=== PATIENT | male | born 1965 ===

== ENCOUNTER 2019-08-13 09:44 | Outpatient (CLI) | payer MEDICAID, SELFPAY ==
[2019-08-13 11:14] LABS: ALT 41 U/L (16-63); AST 22 U/L (15-37); Alkaline Phosphatase 82 U/L (46-116); Anion Gap 7.9 mmol/L (3-11); BUN 9 mg/dL (7-18); Bilirubin, Total 0.3 mg/dL (0.2-1.0); CO2 30.1 mmol/L (21.0-32.0); CREATININE 0.87 mg/dL (0.70-1.30); Calcium 8.4 mg/dL (8.5-10.1); Calculated LDL 70 mg/dL; Chloride 99 mmol/L (98-107); Cholesterol 129 mg/dL (50-200); Glucose 227 mg/dL (70-100); HDL Cholesterol 24 mg/dL (40-60); Potassium 4.9 mmol/L (3.5-5.1); Sodium 137 mmol/L (136-145); Total Protein 6.9 g/dL (6.4-8.2); Triglyceride 176 mg/dL (30-150)
[2019-08-13 11:26] LABS: Hemoglobin A1C 7.1 % (4.5-6.2)
== END 2019-08-13 10:04 ==
PROVIDERS: PCP Family Medicine; Visit Provider Family Medicine
DX: E78.5 Hyperlipidemia, unspecified (principal); I10 Essential (primary) hypertension; E11.9 Type 2 diabetes mellitus without complications
CPT/HCPCS: 36415; 80053; 80061; 83036

== ENCOUNTER 2020-10-03 18:32 | Emergency (ER) | payer MEDICAID, SELFPAY ==
[2020-10-03 18:33] VITALS: BP 126/62; PULSE 86; RESP 19; TEMP 35.9; O2SAT 98
[2020-10-03 18:41] VITALS: RESP 19
--- NOTE | 2020-10-03 19:00 | RT.EKG_ITS ---
APPROVED REPORT Exam: Resting ECG Patient Location: E HR:80 bpm ECG Measurements Heart Rate 80 AXIS DC 182 P 34 QRSd 106 QRS 39 QT 384 T 60 QTc 444 Conclusion Sinus rhythm. Normal P axis, no st elevation
--- NOTE | 2020-10-03 19:00 | DI.RAD_ITS ---
EXAM: XR CHEST 2V PA LATERAL CLINICAL HISTORY: Chest pain. TECHNIQUE: 2D digital imaging was performed. COMPARISON: CR ABD FLAT UPRIGHT PA CHEST from 08/20/2014 FINDINGS: Heart size normal. The mediastinum is not widened. There are no infiltrates nor pleural effusions. Subtle density posteriorly over the lung base on lateral view noted but there is no infiltrate evide nt on the frontal view. There are no pleural effusions. No pneumothorax. IMPRESSION: No acute pulmonary findings. DATA REPOSITORY: RADIATION DOSE DELIVERED:
[2020-10-03 19:15] LABS: Abs Immature Grans 0.05 10^3/uL (0.0-0.06); Absolute Basophil Count 0.02 10^3/uL (0.0-0.2); Absolute Eosinophil Count 0.28 10^3/uL (0.0-0.7); Absolute Lymphocyte Count 1.88 10^3/uL (1.2-3.4); Absolute Monocyte Count 0.61 10^3/uL (0.1-0.8); Absolute Neutrophil Count 7.49 10^3/uL (1.2-6.7); Basophils % 0.2; Eosinophils % 2.7; HCT 37.5 % (40.0-50.0); HGB 12.5 g/dL (13.5-17.5); Immature Grans % 0.5; Lymphocytes % 18.2; MCH 29.6 pg (27.0-33.0); MCHC 33.3 % (32.0-36.0); MCV 88.9 fL (80-95); MPV 8.1 fL (8.0-11.0); Monocytes % 5.9; Neutrophils % 72.5; Nucleated RBC 0 %; Platelet Count 228 10^3/uL (130-400); RBC 4.22 10^6/uL (4.36-5.78); RDW-SD 38.8 fL; WBC 10.33 10^3/uL (4.4-10.8)
--- NOTE | 2020-10-03 19:18 | W.ED.GENAD ---
Discharge Plan Disposition Patient Disposition: HOME Condition: Stable Discharge Details Clinical Impression: Anxiety, Chest pain Primary Care Provider: Brandon Foster ED Provider: Fang Eubanks Home Meds and New Rx's Prescriptions: Continued atenolol 50 MG tablet 1 tab PO DAILY Qty: 90 RF: 3 pantoprazole 40 MG tablet,delayed release (DR/EC) 1 tab PO DAILY Qty: 90 RF: 3 loratadine [Claritin Liqui-Gel] 10 MG capsule 1 cap PO DAILY Qty: 90 RF: 3 simvastatin 80 MG tablet 80 mg PO DAILY Qty: 90 RF: 3 acetaminophen [Tylenol] 325 MG tablet 1 tab PO PRN PRNRF: 0 albuterol sulfate [ProAir HFA] 200 PUFF HFA aerosol inhaler 1 inhaler Inhalation PRN PRNRF: 0 metformin 500 MG tablet 500 mg PO BID RF: 0 benztropine 0.5 MG tablet 0.5 mg PO BID RF: 0 aspirin,buffd-calcium carb-mag 325 MG tablet 325 mg PO DAILY RF: 0 fluoxetine 40 mg capsule 40 mg PO DAILY RF: 0 gabapentin 300 mg capsule 300 mg PO TID RF: 0 lorazepam 1 mg tablet 1 mg PO TID RF: 0 Risperdal Consta 25 mg/2 mL suspension,extended rel recon 25 mg IM USEASDIRECTD RF: 0 lactulose 10 gram/15 mL solution PO DIRECTED PRNRF: 0 Discharge Instructions Instructions: Chest Pain (ED), Anxiety (ED) Additional Instructions: Follow up with primary care provider in 3-5 days. Return to ED sooner if any worsening or concerns. Increase oral fluids. Take a aspirin daily. Return to the ED for any worsening chest pain, shortness of breath or any concerns. Referrals: Brandon Foster [Primary Care Provider] - Medical Decision Making 55-year-old male presents to the ER with chief complaint of increased anxiety. Patient reports he has been feeling dizzy for the last few days and has had a dull feeling in the left side of his chest. He also endorses nausea, no vomiting no diarrhea no constipation. He denies any fever. He is morbidly obese, does have a past medical history of type 2 diabetes, hypertension, hyperlipidemia, anxiety, mitral valve replacement, and is a daily smoker. He states that he is on a waiting list to get into a care bed at this time. Work-up ordered including EKG, chest x-ray, CBC, CMP, troponin, urinalysis, and magnesium. Sodium 132, potassium 4.2, chloride 97, glucose 187, urinalysis is within normal limits. First troponin is less than 0.05. Imaging protocol: XR of the chest Views: 2 views. COMPARISON: CR ABD FLAT UPRIGHT PA CHEST 08/20/2014 13:14 FINDINGS: Lungs: Mild density projecting over the inferolateral lung base on the lateral view with no frontal correlate. Slightly rotated lateral view. Pleural space: No pleural effusion. No pneumothorax. Heart/Mediastinum: No cardiomegaly. Bones/joints: No acute fracture. IMPRESSION: Mild basilar density as described above; I favor artifact. Consider follow-up if there is concern for an early lung base pneumonia. Thank you for allowing us to participate in the care of your patient. Dictated and Authenticated by: Annalee Kellogg MD Heart score is 2 at this time. Discussed results with patient. Due to patient's pain in his chest beginning proximately 3 days ago likelihood of a serial troponin being elevated is very unlikely at this time. Patient is more concerned about his anxiety he was given a 500 cc bolus of normal saline due to the low sodium. This improved his dizziness. Patient is requesting to take his nightly meds including 2 mg of Ativan, which is improved. Discussed follow-up. Discussed strict return instructions, verbalized understanding. HPI General Mode of arrival: ambulatory. Date/Time Provider Initiated Documentation: 10/03/20 18:32. Limitations to Documentation: no limitations. Information obtained by: patient. HPI Narrative: 55-year-old male presents to the ER with chief complaint of increased anxiety. Patient reports he has been feeling dizzy for the last few days and has had a dull feeling in the left side of his chest. He also endorses nausea, no vomiting no diarrhea no constipation. He denies any fever. He is morbidly obese, does have a past medical history of type 2 diabetes, hypertension, hyperlipidemia, anxiety, mitral valve replacement, and is a daily smoker. Related Data Home Medications Medication Instructions Recorded Confirmed acetaminophen [Tylenol] 1 tab PO PRN PRN 08/20/14 10/03/20 albuterol sulfate [ProAir HFA] 1 inhaler INHALATION PRN PRN 08/20/14 10/03/20 atenolol 1 tab PO DAILY #90 tab 10/26/14 10/03/20 pantoprazole 1 tab PO DAILY #90 tab 10/26/14 10/03/20 loratadine [Claritin Liqui-Gel] 1 cap PO DAILY #90 tab 12/16/14 10/03/20 simvastatin 80 mg PO DAILY #90 tab 12/21/14 10/03/20 aspirin,buffd-calcium carb-mag 325 mg PO DAILY 11/18/16 10/03/20 benztropine 0.5 mg PO BID 11/18/16 10/03/20 metformin 500 mg PO BID 11/18/16 10/03/20 Risperdal Consta 25 mg IM USEASDIRECTD 10/03/20 10/03/20 fluoxetine 40 mg PO DAILY 10/03/20 10/03/20 gabapentin 300 mg PO TID 10/03/20 10/03/20 lactulose PO DIRECTED PRN 10/03/20 lorazepam 1 mg PO TID 10/03/20 10/03/20 Allergies Allergy/AdvReac Type Severity Reaction Status Date / Time buspirone Allergy Unverified 11/27/16 13:31 paliperidone Allergy Unverified 11/27/16 13:31 paroxetine HCl [From Paxil] Allergy Unverified 11/27/16 13:31 sertraline Allergy Unverified 11/27/16 13:31 aripiprazole [From Abilify] AdvReac Intermediate INVOLUNTARY Unverified 11/27/16 13:31 MUSCLE MOVEMENTS divalproex sodium AdvReac Intermediate INVOLUNTARY Unverified 11/27/16 13:31 [From Depakote] MUSCLE MOVEMENTS mirtazapine AdvReac Intermediate INVOLUNTARY Unverified 11/27/16 13:31 MUSCLE MOVEMENTS risperidone AdvReac Intermediate INVOLUNTARY Unverified 11/27/16 13:31 MUSCLE MOVEMENTS benztropine mesylate AdvReac elevated Unverified 11/27/16 13:31 [From Cogentin] blood sugars enviornmental Allergy Mild Wheezing Uncoded 11/27/16 13:31 General Stated Complaint: Anxiety CARLOS: 3 Review of Systems Narrative: Constitutional: Negative for weight loss, alert and oriented, well groomed, obese body habitus, appears comfortable. HEENT: Denies trauma, headaches, blurry vision, nasal discharge, sore throat, trouble swallowing. Chest: Denies palpitations, irregular rhythm, hypertension. Reports left-sided chest pain. Respiratory: Denies Shortness of breath, cough, hemoptysis. GI: Denies abdominal pain, vomiting, diarrhea, constipation. Positive nausea : Denies dysuria, hematuria, flank pain, rectal bleeding. Neuro: Denies blurry vision, weakness, syncope, headache or facial numbness. Reports dizziness. Hematologic: Denies easy bruising, intolerance to heat or cold, hair loss. [facility] Family History Father No problems noted. Other Heart disease Social History Smoking/Tobacco Use Status: Current every day Tobacco Type: cigarettes Smoking risk assessment performed?: Yes Alcohol Intake: never Drug use: Never Do you feel safe at home: Yes Do you feel safe in your relationship?: Yes Exam Narrative Exam Narrative: Constitutional: Alert and oriented x3. Appears stated age. morbidly obese body habitus. Head: Normocephalic, no trauma. Eyes: Pupils PERRLA, Red reflex noted, EOM's intact. Eyelids symmetrical without lesions, discharge, or swelling. ENT: Bilateral TM's WNL, External ear normal to inspection, no mastoid TTP, swelling, or erythema, Nasal turbinates WNL, no nasal discharge. Normal dentition, Posterior pharynx WNL, no exudate. Chest: RRR, Normal S1, S2, distal pulses intact. Resp: Lungs clear to auscultation bilaterally, no wheezes, rales, or rhonchi. Musculoskeletal: Normal gait, 5/5 strength to all four extremities. Skin: No suspicious rashes or lesions. Capillary refill less than 2 sec. Neurologic: Cranial nerves II-XII intact. Alert and oriented x 3. DTR's intact. Hematologic/Lymphatic: No ecchymosis, no lymphadenopathy. Course Vital Signs Vital signs: Vital Signs Temperature 35.9 C L 10/03/20 18:33 Pulse 86 10/03/20 18:33 Respiratory Rate 19 10/03/20 18:33 Blood Pressure 126/62 10/03/20 18:33 Pulse Oximetry 98 10/03/20 18:33 Temperature 35.9 C L 10/03/20 18:33 Temperature Source Temporal Artery Scan 10/03/20 18:33 Pulse 86 10/03/20 18:33 Respiratory Rate 19 10/03/20 18:41 Respiratory Effort 10/03/20 18:41 Respiratory Depth Normal 10/03/20 18:41 Respiratory Pattern Normal 10/03/20 18:41 Blood Pressure 126/62 10/03/20 18:33 Blood Pressure Position Sitting 10/03/20 18:33 Pulse Oximetry 98 10/03/20 18:33 Oxygen Delivery Method Room Air 10/03/20 18:33 Oxygen Flow Rate 0 10/03/20 18:33 Pain Level 7 10/03/20 18:33 Lab/Test Results Lab/Test Results: Laboratory Tests Range/Units 10/03/20 19:13 WBC (4.4-10.8) 10^3/uL 10.33 RBC (4.36-5.78) 10^6/uL 4.22 L Hgb (13.5-17.5) g/dL 12.5 L Hct (40.0-50.0) % 37.5 L MCV (80-95) fL 88.9 MCH (27.0-33.0) pg 29.6 MCHC (32.0-36.0) % 33.3 RDW (11.8-14.1) % 12.0 Plt Count (130-400) 10^3/uL 228 MPV (8.0-11.0) fL 8.1 Immature Gran % 0.5 Neutrophils % 72.5 Lymphocytes % 18.2 Monocytes % 5.9 Eosinophils % 2.7 Basophils % 0.2 Nucleated RBC % % 0 Absolute Neutrophils (1.2-6.7) 10^3/uL 7.49 H Absolute Lymphocytes (1.2-3.4) 10^3/uL 1.88 Absolute Monocytes (0.1-0.8) 10^3/uL 0.61 Absolute Eosinophils (0.0-0.7) 10^3/uL 0.28 Absolute Basophils (0.0-0.2) 10^3/uL 0.02
[2020-10-03 19:31] LABS: ALT 40 U/L (16-63); AST 23 U/L (15-37); Albumin 3.4 g/dL (3.4-5.0); Alkaline Phosphatase 91 U/L (46-116); Anion Gap 6.2 mmol/L (3-11); BUN 13 mg/dL (7-18); Bilirubin, Total 0.4 mg/dL (0.2-1.0); CO2 28.8 mmol/L (21.0-32.0); CREATININE 1.03 mg/dL (0.70-1.30); Calcium 8.8 mg/dL (8.5-10.1); Chloride 97 mmol/L (98-107); Glucose 187 mg/dL (74-106); Magnesium 1.8 mg/dL (1.8-2.4); Potassium 4.2 mmol/L (3.5-5.1); Sodium 132 mmol/L (136-145); Total Protein 8.2 g/dL (6.4-8.2); Troponin I < 0.05 ng/mL (<0.06)
--- NOTE | 2020-10-03 19:54 | DI.VRAD_ITS ---
PROCEDURE INFORMATION: Exam: XR Chest, 2 Views Exam date and time: 10/03/2020 19:02 Age: 55 years old Clinical indication: Other: Chest pain TECHNIQUE: Imaging protocol: XR of the chest Views: 2 views. COMPARISON: CR ABD FLAT UPRIGHT PA CHEST 08/20/2014 13:14 FINDINGS: Lungs: Mild density projecting over the inferolateral lung base on the lateral view with no frontal correlate. Slightly rotated lateral view. Pleural space: No pleural effusion. No pneumothorax. Heart/Mediastinum: No cardiomegaly. Bones/joints: No acute fracture. IMPRESSION: Mild basilar density as described above; I favor artifact. Consider follow-up if there is concern for an early lung base pneumonia. Dictated and Authenticated by: Annalee Kellogg MD. Ordering:YOLY Headley MD
[2020-10-03] MEDS: Normal Saline 250 ML IV (20:15)
[2020-10-03 20:21] VITALS: BP 141/70; PULSE 90; RESP 19; TEMP 36.3; O2SAT 96
[2020-10-03 20:25] LABS: Bilirubin Negative (Negative); Blood Negative (Negative); Clarity Clear (Clear); Glucose Negative (Negative); Ketones Negative (Negative); Leukocyte Esterase Negative (Negative); Nitrite Negative (Negative); Specific Gravity 1.015 (1.005-1.025); Urobilinogen 0.2 EU/dL (Up TO 0.2); pH 6.5 (5-8)
[2020-10-03 20:50] VITALS: BP 141/70; PULSE 90; RESP 19; TEMP 36.3; O2SAT 96
== END 2020-10-03 20:50 | disposition home or self-care (01) ==
PROVIDERS: Emergency Provider Registered Nurse Emergency; PCP Family Medicine
DX: R42 Dizziness and giddiness (principal); R07.89 Other chest pain; F41.9 Anxiety disorder, unspecified; R11.0 Nausea; I10 Essential (primary) hypertension; E11.9 Type 2 diabetes mellitus without complications
CPT/HCPCS: 80053; 93005; 96360; 99285; 71046; 81003; 83735; 84484; 85025; 93010; 99284

== ENCOUNTER 2020-10-09 00:46 | Emergency (ER) | payer MEDICAID, SELFPAY ==
--- NOTE | 2020-10-09 00:45 | RT.EKG_ITS ---
APPROVED REPORT Exam: Resting ECG Patient Location: E HR:99 bpm ECG Measurements Heart Rate 99 AXIS MI 190 P 53 QRSd 106 QRS 46 QT 370 T 57 QTc 475 Conclusion Sinus rhythm...normal P axis, V-rate 60- 99 Normal [place] There are no significant changes compared to prior EKG performed on 10/03/2020 at 19:09.
[2020-10-09 00:53] VITALS: BP 133/76; PULSE 94; RESP 20; TEMP 36.5; O2SAT 96
--- NOTE | 2020-10-09 00:54 | ED.GENADUL_ITS ---
Discharge Plan Disposition Patient Disposition: HOME Condition: Good Discharge Details Clinical Impression: Anxiety Primary Care Provider: Brandon Foster ED Provider: Dariel Matthews Hecker Meds and New Rx's Prescriptions: Continued atenolol 50 MG tablet 1 tab PO DAILY Qty: 90 RF: 3 loratadine [Claritin Liqui-Gel] 10 MG capsule 1 cap PO DAILY Qty: 90 RF: 3 simvastatin 80 MG tablet 80 mg PO DAILY Qty: 90 RF: 3 acetaminophen [Tylenol] 325 MG tablet 1 tab PO PRN PRNRF: 0 albuterol sulfate [ProAir HFA] 200 PUFF HFA aerosol inhaler 1 inhaler Inhalation PRN PRNRF: 0 esomeprazole magnesium [Nexium] 20 mg Capsule,Delayed Release(Dr/Ec) 20 mg PO DAILY RF: 0 metformin 500 MG tablet 500 mg PO BID RF: 0 benztropine 0.5 MG tablet 0.5 mg PO BID RF: 0 aspirin,buffd-calcium carb-mag 325 MG tablet 325 mg PO DAILY RF: 0 fluoxetine 40 mg capsule 40 mg PO DAILY RF: 0 gabapentin 300 mg capsule 300 mg PO TID RF: 0 lorazepam 1 mg tablet 1 mg PO TID RF: 0 Risperdal Consta 25 mg/2 mL suspension,extended rel recon 25 mg IM USEASDIRECTD RF: 0 lactulose 10 gram/15 mL solution PO DIRECTED PRNRF: 0 Discharge Instructions Instructions: Anxiety (ED) Additional Instructions: You have now had 2 visits to the emergency department within the last week for anxiety. You really need to discuss this with mental health for further management. You should follow-up with primary care for outpatient stress testing just to be sure there is no cardiac issues. Return to ED if you develop actual chest pain, shortness of breath, passout, other concerns. Referrals: [facility] [Provider Group] Brandon Foster [Primary Care Provider] - Medical Decision Making Patient returned with complaint of chest fullness and anxiety. Had called in to help and was told emergency room care bed. Did take his medications today including Ativan. EKG is unchanged from before and is essentially normal. History is more consistent with anxiety and ACS. In fact, he denies having chest pain and repeatedly corrects me with past about pain. Clinically does not fit dissection, PE. Chest x-ray on the normal. He is given aspirin. He refuses nitroglycerin. Laboratory studies sent. IV Ativan given. First troponin negative. CBC and BMP unchanged from before. Plan repeat EKG and troponin and if negative discharge home. HEART score is a 3 based on age and risk factors. Patient has been fine. No more complaints after the IV Ativan. Repeat troponin negative. Will place discharge to follow-up with primary care next week as well as with mental health to help with his anxiety. Return to ED if actual chest pain, shortness of breath, vomiting, other problems. Medical Records Medical records reviewed: Yes I reviewed the patient's medical records. Lab Data Lab results reviewed: Yes I reviewed the patient's lab results. ECG Data Attestation: I personally reviewed and interpreted this ECG (s) as follows: Interpretation: see EKG HPI General Mode of arrival: EMS . Date/Time Provider Initiated Documentation: 10/09/20 00:48 . Limitations to Documentation: no limitations . Information obtained by: patient, RN notes reviewed and old records reviewed . HPI Narrative: Patient presents to the ED with complaint of chest fullness. Patient seen here on the for same. Work-up including chest x-ray, EKG, 2 sets of troponin then was negative. No trauma. Has been. Patient returned complaining of recurrent anxiety and chest fullness. He does not describe it as pain or pressure. He has some nausea and slight headache. He denies fever, cough, shortness of breath, loss of taste or smell, vomiting, abdominal pain. Does have cardiac risk factors. Denies any radiation of the fullness. Did call mental health prior to coming in requesting a care bed. Related Data Home Medications Medication Instructions Recorded Confirmed acetaminophen [Tylenol] 1 tab PO PRN PRN 08/20/14 10/09/20 albuterol sulfate [ProAir HFA] 1 inhaler INHALATION PRN PRN 08/20/14 10/09/20 atenolol 1 tab PO DAILY #90 tab 10/26/14 10/09/20 loratadine [Claritin Liqui-Gel] 1 cap PO DAILY #90 tab 12/16/14 10/09/20 simvastatin 80 mg PO DAILY #90 tab 12/21/14 10/09/20 aspirin,buffd-calcium carb-mag 325 mg PO DAILY 11/18/16 10/09/20 benztropine 0.5 mg PO BID 11/18/16 10/09/20 metformin 500 mg PO BID 11/18/16 10/09/20 Risperdal Consta 25 mg IM USEASDIRECTD 10/03/20 10/09/20 fluoxetine 40 mg PO DAILY 10/03/20 10/09/20 gabapentin 300 mg PO TID 10/03/20 10/09/20 lactulose PO DIRECTED PRN 10/03/20 lorazepam 1 mg PO TID 10/03/20 10/09/20 esomeprazole magnesium [Nexium] 20 mg PO DAILY 10/09/20 10/09/20 Allergies Allergy/AdvReac Type Severity Reaction Status Date / Time buspirone Allergy Unverified 10/09/20 00:57 paliperidone Allergy Unverified 10/09/20 00:57 paroxetine HCl [From Paxil] Allergy Unverified 10/09/20 00:57 sertraline Allergy Unverified 10/09/20 00:57 aripiprazole [From Abilify] AdvReac Intermediate INVOLUNTARY Unverified 10/09/20 00:57 MUSCLE MOVEMENTS divalproex sodium AdvReac Intermediate INVOLUNTARY Unverified 10/09/20 00:57 [From Depakote] MUSCLE MOVEMENTS mirtazapine AdvReac Intermediate INVOLUNTARY Unverified 10/09/20 00:57 MUSCLE MOVEMENTS risperidone AdvReac Intermediate INVOLUNTARY Unverified 10/09/20 00:57 MUSCLE MOVEMENTS benztropine mesylate AdvReac elevated Unverified 10/09/20 00:57 [From Cogentin] blood sugars enviornmental Allergy Mild Wheezing Uncoded 10/09/20 00:57 General CARLOS: 3 Review of Systems Narrative: As documented in HPI otherwise negative as below. Const: no fever, chills, weakness Resp: no cough, SOB, pleuritic pain CV: no diaphoresis, edema, syncope GI: no abdominal pain, vomiting, diarrhea Neuro: no numbness, focal weakness, confusion [facility] Medical History (Updated 10/09/20 @ 05:02 by Dariel Matthews MD) Arrhythmia, atrial (09/07/14) Depression (10/02/14) Diabetes mellitus type 2 in obese (09/09/14) GERD (gastroesophageal reflux disease) (09/07/14) Hypercholesterolemia (11/03/14) Hypothyroidism (acquired) (09/07/14) Schizoaffective disorder (09/07/14) Rebekah Mariscal [facility] 09/2014- [facility] inpatient Family History Father No problems noted. Other Heart disease Social History Smoking/Tobacco Use Status: Current every day Tobacco Type: cigarettes Smoking risk assessment performed?: Yes Alcohol Intake: never Drug use: Never Substance use type: does not use Do you feel safe at home: Yes Do you feel safe in your relationship?: Yes Exam Narrative Exam Narrative: Const: Morbidly obese male in NAD. HEENT: NC/AT. Normal facial exam. Eyes: Normal conjunctiva and sclera. Neck: Supple. Trachea midline. Lungs: Normal respiratory effort. Lungs are clear. Cor: RRR without murmur/gallop. Good radial pulses. GI: Soft. NT/ND. No guarding or rebound. Neuro: A+O x 3. Normal speech, mentation, gait. Cranial nerves II - XII grossly intact. No gross motor or sensory deficit. Ext: No C/C. Some LE edema. No calf tenderness. Skin: Warm and dry without rash.
[2020-10-09 01:00] VITALS: RESP 20
[2020-10-09] MEDS: Aspirin 81 MG CHEW 324 MG CH (01:45)
[2020-10-09 01:48] LABS: Abs Immature Grans 0.05 10^3/uL (0.0-0.06); Absolute Basophil Count 0.02 10^3/uL (0.0-0.2); Absolute Eosinophil Count 0.31 10^3/uL (0.0-0.7); Absolute Lymphocyte Count 1.89 10^3/uL (1.2-3.4); Absolute Monocyte Count 0.68 10^3/uL (0.1-0.8); Basophils % 0.2; Eosinophils % 2.6; HCT 36.6 % (40.0-50.0); HGB 12.2 g/dL (13.5-17.5); Immature Grans % 0.4; Lymphocytes % 15.8; MCH 29.6 pg (27.0-33.0); MCHC 33.3 % (32.0-36.0); MCV 88.8 fL (80-95); MPV 8.5 fL (8.0-11.0); Monocytes % 5.7; Neutrophils % 75.3; Nucleated RBC 0 %; Platelet Count 228 10^3/uL (130-400); RBC 4.12 10^6/uL (4.36-5.78); RDW 12.1 % (11.8-14.1); RDW-SD 39.2 fL; WBC 11.99 10^3/uL (4.4-10.8)
[2020-10-09 01:49] LABS: Absolute Neutrophil Count 9.03 10^3/uL (1.2-6.7)
[2020-10-09 01:57] LABS: Anion Gap 6.7 mmol/L (3-11); BUN 11 mg/dL (7-18); CO2 27.3 mmol/L (21.0-32.0); CREATININE 1.05 mg/dL (0.70-1.30); Calcium 8.9 mg/dL (8.5-10.1); Chloride 98 mmol/L (98-107); Glucose 202 mg/dL (74-106); Potassium 4.2 mmol/L (3.5-5.1); Sodium 132 mmol/L (136-145)
[2020-10-09] MEDS: LORazepam 2 MG/ML VIAL 1 MG IVP (02:02)
[2020-10-09 02:07] LABS: Troponin I < 0.05 ng/mL (<0.06)
[2020-10-09 03:02] VITALS: BP 123/69
[2020-10-09 04:56] LABS: Troponin I < 0.05 ng/mL (<0.06)
[2020-10-09 05:08] VITALS: BP 115/76; PULSE 81; RESP 16; O2SAT 96
== END 2020-10-09 08:03 | disposition home or self-care (01) ==
PROVIDERS: Emergency Provider Emergency Medicine; PCP Family Medicine
DX: R07.89 Other chest pain (principal); F41.8 Other specified anxiety disorders; E11.9 Type 2 diabetes mellitus without complications; Z79.84 Long term (current) use of oral hypoglycemic drugs
CPT/HCPCS: 36415; 80048; 80053; 93005; 96374; 99284; 83735; 84484; 85025; 93010; J2060

== ENCOUNTER 2020-10-12 21:43 | Emergency (ER) | payer MEDICAID, SELFPAY ==
--- NOTE | 2020-10-12 21:30 | RT.EKG_ITS ---
APPROVED REPORT Exam: Resting ECG Patient Location: E HR:88 bpm ECG Measurements Heart Rate 88 AXIS FL 165 P 54 QRSd 113 QRS 44 QT 398 T 66 QTc 481 Conclusion Sinus rhythm...normal P axis, V-rate 60- 99
[2020-10-12 21:44] VITALS: BP 152/68; PULSE 84; RESP 16; TEMP 36.4; O2SAT 99
--- NOTE | 2020-10-12 21:45 | DI.CT_ITS ---
EXAM: CT THORAX CTA CLINICAL HISTORY: chest pain radiating to the back. TECHNIQUE: Imaging Protocol: CT angiography of the chest was performed using pulmonary embolus ely col. Multi planar reconstructions were performed. CONTRAST MATERIAL: Intravenous: Omnipaque 350 Contrast volume:100 ml Oral: None COMPARISON: No exams were available for comparison FINDINGS: CHEST: PULMONARY ARTERIES: There are no intraluminal filling defects to suggest acute pulmonary emboli. LUNGS: There is no evidence of pulmonary infarction. No pleural effusions. MEDIASTINUM: There is no hilar nor mediastinal adenopathy. Visualized thyroid unremarkable. CARDIAC: Heart size is normal. There is no pericardial effusion.Caliber of the thoracic aorta is wit hin normal limits.There is no evidence of shift of the interventricular septum. OSSEOUS: No significant osseous lesions.. IMPRESSION: 1. No evidence of acute pulmonary emboli. No evidence of pulmonary infarction. 2. No pleural effusions 3. RADIATION DOSE DELIVERED: 787.29mGy.cm Total DLP DATA REPOSITORY: All CT scans at this facility are submitted to the National Radiology Data Registry (NRDR) Dose Index Registry (DIR) with the [employer] (ACR). RADIATION OPTIMIZATION: All CT scans at this facility use at least one of these dose optimization te chniques: automated exposure control; mA and/or kV adjustment per patient size (includes targeted exa ms where dose is matched to clinical indication); or iterative reconstruction.
[2020-10-12 21:51] VITALS: RESP 18
--- NOTE | 2020-10-12 21:52 | ED.GENADUL_ITS ---
Discharge Plan Disposition Patient Disposition: HOME Condition: Stable Discharge Details Clinical Impression: Chest pain Primary Care Provider: Brandon Foster ED Provider: Doc Ramos Home Meds and New Rx's Prescriptions: Continued atenolol 50 MG tablet 1 tab PO DAILY Qty: 90 RF: 3 loratadine [Claritin Liqui-Gel] 10 MG capsule 1 cap PO DAILY Qty: 90 RF: 3 simvastatin 80 MG tablet 80 mg PO DAILY Qty: 90 RF: 3 acetaminophen [Tylenol] 325 MG tablet 1 tab PO PRN PRNRF: 0 albuterol sulfate [ProAir HFA] 200 PUFF HFA aerosol inhaler 1 inhaler Inhalation PRN PRNRF: 0 esomeprazole magnesium [Nexium] 20 mg Capsule,Delayed Release(Dr/Ec) 20 mg PO DAILY RF: 0 metformin 500 MG tablet 500 mg PO BID RF: 0 benztropine 0.5 MG tablet 0.5 mg PO BID RF: 0 aspirin,buffd-calcium carb-mag 325 MG tablet 325 mg PO DAILY RF: 0 fluoxetine 40 mg capsule 40 mg PO DAILY RF: 0 gabapentin 300 mg capsule 300 mg PO TID RF: 0 lorazepam 1 mg tablet 1 mg PO TID RF: 0 Risperdal Consta 25 mg/2 mL suspension,extended rel recon 25 mg IM USEASDIRECTD RF: 0 lactulose 10 gram/15 mL solution 2 PO DIRECTED PRNRF: 0 Discharge Instructions Additional Instructions: your blood work and imaging did not show any concerning findings this could be from underlying anxiety follow up with your primary care provider within a week if worsening pain, difficulty breathing or vomit return to the emergency department Medical Decision Making 55 yo male with hx of gerd, hld, hypothyroidism, anxiety, schizoaffective disorder who comes in with cc of a chest fullness sensation in the left upper chest starting 3 hours ago on my exam. He states it feels similar to the prior 2 times he was here the last week or so. He states it moves to the upper back intermittenty. He denies fevers, dyspnea, diaphoresis, n/v. He arrives hd stable with no concerning findings on abdominal exam, no tenderness. Clear lungs without murmurs. He states he does feel less anxious and less symptomatic after taking an ativan. Could be anxiety but will obtain troponin and given pain radiates to the back obtain CTA to evaluate for dissection. No hypoxia or evidence of dvt or pleuritic pain so doubt PE labs and imaging unremarkable and he remains stable without complaints, no pain or dyspnea. Given 3 hours of symptoms do not feel delta troponin indicated, will d/c and have him f/u with his pcp, return precautions given Differential Diagnosis Differential Diagnosis: nstemi, pna, dissection, acs Medical Records Medical records reviewed: Yes I reviewed the patient's medical records. Imaging Data Radiologic Study: Attestation: I personally reviewed and interpreted this imaging study as follows: Imaging: CT Scan Radiologist's impression: no acute findings Lab Data Lab results reviewed: Yes I reviewed the patient's lab results. ECG Data Attestation: I personally reviewed and interpreted this ECG (s) as follows: Prior ECG tracings: available for review Interpretation: sinus rhythm, rate of 88, pr 165, qtc [address] t wave ischemic findings HPI General Mode of arrival: EMS . Date/Time Provider Initiated Documentation: 10/12/20 21:50 . Limitations to Documentation: no limitations . Information obtained by: patient . History of Present Illness 55 year old M presents to the emergency department with the chief complaint of chest fullness, described as moderate, and is localized to the chest. Patient reports radiation to back. Patient started experiencing this hour(s) (3) and it has been other (improving). No relieving factors improve symptom(s), No exacerbating factors reported . Patient did receive the following treatments prior to arrival, none Related Data Home Medications Medication Instructions Recorded Confirmed acetaminophen [Tylenol] 1 tab PO PRN PRN 08/20/14 10/12/20 albuterol sulfate [ProAir HFA] 1 inhaler INHALATION PRN PRN 08/20/14 10/12/20 atenolol 1 tab PO DAILY #90 tab 10/26/14 10/12/20 loratadine [Claritin Liqui-Gel] 1 cap PO DAILY #90 tab 12/16/14 10/12/20 simvastatin 80 mg PO DAILY #90 tab 12/21/14 10/12/20 aspirin,buffd-calcium carb-mag 325 mg PO DAILY 11/18/16 10/12/20 benztropine 0.5 mg PO BID 11/18/16 10/12/20 metformin 500 mg PO BID 11/18/16 10/12/20 Risperdal Consta 25 mg IM USEASDIRECTD 10/03/20 10/12/20 fluoxetine 40 mg PO DAILY 10/03/20 10/12/20 gabapentin 300 mg PO TID 10/03/20 10/12/20 lactulose 2 PO DIRECTED PRN 10/03/20 lorazepam 1 mg PO TID 10/03/20 10/12/20 esomeprazole magnesium [Nexium] 20 mg PO DAILY 10/09/20 10/12/20 Allergies Allergy/AdvReac Type Severity Reaction Status Date / Time buspirone Allergy Unverified 10/09/20 00:57 paliperidone Allergy Unverified 10/09/20 00:57 paroxetine HCl [From Paxil] Allergy Unverified 10/09/20 00:57 sertraline Allergy Unverified 10/09/20 00:57 aripiprazole [From Abilify] AdvReac Intermediate INVOLUNTARY Unverified 10/09/20 00:57 MUSCLE MOVEMENTS divalproex sodium AdvReac Intermediate INVOLUNTARY Unverified 10/09/20 00:57 [From Depakote] MUSCLE MOVEMENTS mirtazapine AdvReac Intermediate INVOLUNTARY Unverified 10/09/20 00:57 MUSCLE MOVEMENTS risperidone AdvReac Intermediate INVOLUNTARY Unverified 10/09/20 00:57 MUSCLE MOVEMENTS benztropine mesylate AdvReac elevated Unverified 10/09/20 00:57 [From Cogentin] blood sugars enviornmental Allergy Mild Wheezing Uncoded 10/09/20 00:57 General Stated Complaint: Chest Pain CARLOS: 2 Review of Systems All systems reviewed & are unremarkable except as noted in HPI and below Constitutional Constitutional: Denies chills, Denies fever(s) and Denies weakness Cardiovascular Cardiovascular: Denies dyspnea Respiratory Respiratory: Denies cough and Denies dyspnea Gastrointestinal Gastrointestinal: Denies abdominal pain, Denies nausea and Denies vomiting Musculoskeletal Musculoskeletal: Denies joint swelling Neurologic Neurologic: Denies weakness [facility] Medical History (Updated 10/12/20 @ 22:57 by Doc Ramos MD) Arrhythmia, atrial (09/07/14) Depression (10/02/14) Diabetes mellitus type 2 in obese (09/09/14) GERD (gastroesophageal reflux disease) (09/07/14) Hypercholesterolemia (09/07/14) Hypothyroidism (acquired) (09/07/14) Schizoaffective disorder (09/07/14) Rebekah Mariscal [facility] 09/2014- [facility] inpatient Family History Father No problems noted. Other Heart disease Social History Smoking/Tobacco Use Status: Current every day Tobacco Type: cigarettes Smoking risk assessment performed?: Yes Alcohol Intake: never Drug use: Never Substance use type: does not use Do you feel safe at home: Yes Do you feel safe in your relationship?: Yes Exam Const General: no acute distress Orientation: alert HENMT Head: normal to inspection Ears: external ears normal General nose exam: external nose normal Mouth: moist mucous membranes Eyes General: appearance normal, both eyes and all related structures Neck Neck: normal visual inspection Resp Effort & Inspection: normal respiratory effort and able to speak in complete sentences Cardio Rate: regular rate GI Palpation: soft and nontender Skin General skin exam: no rashes or lesions noted Neuro General: patient alert and patient oriented x3 Extrem General: normal to inspection Psych Mental Status: mental status grossly normal Course Vital Signs Vital signs: Vital Signs Temperature 36.4 C L 10/12/20 21:44 Temperature 36.4 C L 10/12/20 21:44 Temperature Source Skin 10/12/20 21:44 Pain Level 7 10/12/20 21:44
[2020-10-12 22:02] LABS: Abs Immature Grans 0.05 10^3/uL (0.0-0.06); Absolute Basophil Count 0.02 10^3/uL (0.0-0.2); Absolute Eosinophil Count 0.33 10^3/uL (0.0-0.7); Absolute Lymphocyte Count 2.73 10^3/uL (1.2-3.4); Absolute Monocyte Count 0.49 10^3/uL (0.1-0.8); Absolute Neutrophil Count 7.24 10^3/uL (1.2-6.7); Basophils % 0.2; HCT 37.3 % (40.0-50.0); HGB 12.3 g/dL (13.5-17.5); Immature Grans % 0.5; Lymphocytes % 25.1; MCH 29.4 pg (27.0-33.0); MCV 89.2 fL (80-95); MPV 8.4 fL (8.0-11.0); Monocytes % 4.5; Neutrophils % 66.7; Nucleated RBC 0 %; Platelet Count 241 10^3/uL (130-400); RBC 4.18 10^6/uL (4.36-5.78); RDW 12.2 % (11.8-14.1); RDW-SD 39.8 fL; WBC 10.86 10^3/uL (4.4-10.8)
[2020-10-12 22:20] LABS: ALT 37 U/L (16-63); AST 19 U/L (15-37); Albumin 3.4 g/dL (3.4-5.0); Alkaline Phosphatase 97 U/L (46-116); Anion Gap 9.9 mmol/L (3-11); BUN 14 mg/dL (7-18); Bilirubin, Total 0.2 mg/dL (0.2-1.0); CO2 26.1 mmol/L (21.0-32.0); CREATININE 1.14 mg/dL (0.70-1.30); Chloride 97 mmol/L (98-107); Glucose 190 mg/dL (74-106); Lipase 48 U/L (73-393); Magnesium 1.7 mg/dL (1.8-2.4); Sodium 133 mmol/L (136-145); Total Protein 7.8 g/dL (6.4-8.2)
[2020-10-12 22:21] LABS: Troponin I < 0.05 ng/mL (<0.06)
[2020-10-12] MEDS: Omnipaque 350 MG/ML 100 ML BTL IJ (22:26)
[2020-10-12 22:33] LABS: PTT Activated 23.5 sec (21.0-27.5)
[2020-10-12] MEDS: Normal Saline Flush 10 ML SYR IVP (22:34)
[2020-10-12] MEDS: Normal Saline - Diluent 50 ML VIAL IV (22:34)
--- NOTE | 2020-10-12 22:48 | DI.VRAD_ITS ---
PROCEDURE INFORMATION: Exam: CT Angiography Chest With Contrast Exam date and time: 10/12/2020 10:29 PM Age: 55 years old Clinical indication: Patient HX: Chest pain radiating into back TECHNIQUE: Imaging protocol: Computed tomographic angiography of the chest with intravenous contrast. 3D rendering (Not supervised by radiologist): MIP and/or 3D reconstructed images were created by the technologist. Radiation optimization: All CT scans at this facility use at least one of these dose optimization techniques: automated exposure control; mA and/or kV adjustment per patient size (includes targeted exams where dose is matched to clinical indication); or iterative reconstruction. Contrast material: OMNIPAQUE 350; Contrast volume: 100 ml; Contrast route: INTRAVENOUS (IV); COMPARISON: CR XR CHEST 2V PA LATERAL 03/10/2020 19:45 FINDINGS: Pulmonary arteries: Normal. No pulmonary emboli. Aorta: Unremarkable. No aortic aneurysm. No aortic dissection. Lungs: Unremarkable. No consolidation. No masses. Pleural space: Unremarkable. No pneumothorax. No pleural effusion. Heart: Unremarkable. No cardiomegaly. No pericardial effusion. Mediastinal space: Hiatal hernia. Lymph nodes: Unremarkable. No enlarged lymph nodes. Liver: Hepatic steatosis. Bones/joints: Multilevel degenerative changes of the thoracic spine. Soft tissues: Unremarkable. IMPRESSION: No acute findings. Dictated and Authenticated by: Mellisa Holt MD. Ordering:KAVITA Roach MD
--- NOTE | 2020-10-12 23:03 | NUR.NOTE ---
Nursing Note: referal to caremanagement to get follow up with primary in [place]
[2020-10-12 23:07] LABS: Prothrombin Time 10.1 sec (9.3-11.0)
[2020-10-12 23:15] VITALS: BP 137/69; PULSE 81; RESP 16; O2SAT 97
== END 2020-10-12 23:50 | disposition home or self-care (01) ==
LOC: ER 22:59
PROVIDERS: Emergency Provider Emergency Medicine; PCP Family Medicine
DX: R07.89 Other chest pain (principal); F41.9 Anxiety disorder, unspecified; F25.9 Schizoaffective disorder, unspecified; E11.9 Type 2 diabetes mellitus without complications; Z79.84 Long term (current) use of oral hypoglycemic drugs
CPT/HCPCS: 36415; 71275; 80053; 83690; 93005; 99285; 83735; 84484; 85025; 85610; 85730; 93010; 99284; J3490

== ENCOUNTER 2020-10-16 01:34 | Emergency (ER) | payer MEDICAID, SELFPAY ==
[2020-10-16 01:32] VITALS: BP 131/72; PULSE 90; RESP 16; TEMP 36.4; O2SAT 97
--- NOTE | 2020-10-16 01:33 | ED.GENADUL_ITS ---
Discharge Plan Disposition Patient Disposition: HOME Condition: Good Discharge Details Clinical Impression: Chest pain Primary Care Provider: Brandon Foster ED Provider: Dariel Matthews [place] Meds and New Rx's Prescriptions: Continued atenolol 50 MG tablet 1 tab PO DAILY Qty: 90 RF: 3 loratadine [Claritin Liqui-Gel] 10 MG capsule 1 cap PO DAILY Qty: 90 RF: 3 simvastatin 80 MG tablet 80 mg PO DAILY Qty: 90 RF: 3 acetaminophen [Tylenol] 325 MG tablet 1 tab PO PRN PRNRF: 0 albuterol sulfate [ProAir HFA] 200 PUFF HFA aerosol inhaler 1 inhaler Inhalation PRN PRNRF: 0 esomeprazole magnesium [Nexium] 20 mg Capsule,Delayed Release(Dr/Ec) 20 mg PO DAILY RF: 0 metformin 500 MG tablet 500 mg PO BID RF: 0 benztropine 0.5 MG tablet 0.5 mg PO BID RF: 0 aspirin,buffd-calcium carb-mag 325 MG tablet 325 mg PO DAILY RF: 0 fluoxetine 40 mg capsule 40 mg PO DAILY RF: 0 gabapentin 300 mg capsule 300 mg PO TID RF: 0 lorazepam 1 mg tablet 1 mg PO TID RF: 0 Risperdal Consta 25 mg/2 mL suspension,extended rel recon 25 mg IM USEASDIRECTD RF: 0 lactulose 10 gram/15 mL solution 20 g PO DIRECTED PRNRF: 0 Discharge Instructions Instructions: Chest Pain (ED) Additional Instructions: Your work-ups in the past have been negative. Your repeat EKG and labs look fine. Follow-up with primary care as planned. I am referring you to care management to see if there are any community resources to help you with decreasing calls to EMS and visit to ED. Follow-up with mental health regarding care bed. Referrals: Care Management [Provider Group] [facility] [Provider Group] Brandon Foster [Primary Care Provider] - Medical Decision Making Given patient's previous work-ups as well as no new injury or complaints other than some subjective numbness in his shoulder region I do not feel repeat full evaluation appropriate. He reports symptoms for most of the day. EKG and troponin ordered. Zofran ODT given for his nausea. Patient's EKG is unchanged. Troponin remains negative. Patient reports primary care follow-up this coming week. He is also reporting possibility of being placed in a care bed by [facility] this week. I will refer to care management for follow-up as he is utilizing the emergency department and EMS for nonemergent issues at this point. Medical Records Medical records reviewed: Yes I reviewed the patient's medical records. Lab Data Lab results reviewed: Yes I reviewed the patient's lab results. ECG Data Attestation: I personally reviewed and interpreted this ECG (s) as follows: Interpretation: see EKG HPI General Mode of arrival: EMS . Date/Time Provider Initiated Documentation: 10/16/20 01:41 . Limitations to Documentation: no limitations . Information obtained by: patient . HPI Narrative: Patient presents to ED with complaint of left sided chest/rib pain as well as left upper extremity pressure and numbness to his shoulder. Patient reports this has been ongoing most of the day. He complains of nausea and one episode of vomiting. He denies any fever or cough. He denies any trauma. This is his fourth visit to the emergency department since October 03 for similar complaint. His last visit was on the at which point he underwent CTA in addition to EKG and laboratory studies. Previous to that he had had cardiac work-up with to delta trops that were negative. EMS reports that they are responding to his residence almost daily for usually anxiety complaints. He does report having an appointment with primary care next week. He is seen by [facility] on a daily basis. Related Data Home Medications Medication Instructions Recorded Confirmed acetaminophen [Tylenol] 1 tab PO PRN PRN 08/20/14 10/16/20 albuterol sulfate [ProAir HFA] 1 inhaler INHALATION PRN PRN 08/20/14 10/16/20 atenolol 1 tab PO DAILY #90 tab 10/26/14 10/16/20 loratadine [Claritin Liqui-Gel] 1 cap PO DAILY #90 tab 12/16/14 10/16/20 simvastatin 80 mg PO DAILY #90 tab 12/21/14 10/16/20 aspirin,buffd-calcium carb-mag 325 mg PO DAILY 11/18/16 10/16/20 benztropine 0.5 mg PO BID 11/18/16 10/16/20 metformin 500 mg PO BID 11/18/16 10/16/20 Risperdal Consta 25 mg IM USEASDIRECTD 10/03/20 10/16/20 fluoxetine 40 mg PO DAILY 10/03/20 10/16/20 gabapentin 300 mg PO TID 10/03/20 10/16/20 lactulose 20 g PO DIRECTED PRN 10/03/20 10/16/20 lorazepam 1 mg PO TID 10/03/20 10/16/20 esomeprazole magnesium [Nexium] 20 mg PO DAILY 10/09/20 10/16/20 Allergies Allergy/AdvReac Type Severity Reaction Status Date / Time buspirone Allergy Unverified 10/16/20 01:38 paliperidone Allergy Unverified 10/16/20 01:38 paroxetine HCl [From Paxil] Allergy Unverified 10/16/20 01:38 sertraline Allergy Unverified 10/16/20 01:38 aripiprazole [From Abilify] AdvReac Intermediate INVOLUNTARY Unverified 10/16/20 01:38 MUSCLE MOVEMENTS divalproex sodium AdvReac Intermediate INVOLUNTARY Unverified 10/16/20 01:38 [From Depakote] MUSCLE MOVEMENTS mirtazapine AdvReac Intermediate INVOLUNTARY Unverified 10/16/20 01:38 MUSCLE MOVEMENTS risperidone AdvReac Intermediate INVOLUNTARY Unverified 10/16/20 01:38 MUSCLE MOVEMENTS benztropine mesylate AdvReac elevated Unverified 10/16/20 01:38 [From Cogentin] blood sugars enviornmental Allergy Mild Wheezing Uncoded 10/16/20 01:38 General CARLOS: 2 Review of Systems Narrative: As documented in HPI otherwise negative as below. Const: no fever, chills, weakness Resp: no cough, SOB, pleuritic pain CV: no diaphoresis, edema, syncope GI: no abdominal pain, diarrhea Neuro: no headache, focal weakness, confusion [facility] Medical History Arrhythmia, atrial (09/07/14) Depression (10/02/14) Diabetes mellitus type 2 in obese (09/09/14) GERD (gastroesophageal reflux disease) (09/07/14) Hypercholesterolemia (09/07/14) Hypothyroidism (acquired) (09/07/14) Schizoaffective disorder (09/07/14) Rebekah Mariscal [facility] 09/2014- [facility] inpatient Family History Father No problems noted. Other Heart disease Social History Smoking/Tobacco Use Status: Current every day Tobacco Type: cigarettes Smoking risk assessment performed?: Yes Alcohol Intake: never Drug use: Never Substance use type: does not use Do you feel safe at home: Yes Do you feel safe in your relationship?: Yes Exam Narrative Exam Narrative: Const: Morbidly obese male in NAD. HEENT: NC/AT. Normal facial exam. Eyes: Normal conjunctiva and sclera. Neck: Supple. Trachea midline. Lungs: Normal respiratory effort. Lungs are clear. Cor: RRR without murmur/gallop. Good radial pulses. GI: Soft. NT/ND. No guarding or rebound. Neuro: A+O x 3. Normal mentation. Cranial nerves II - XII grossly intact. No gross motor or sensory deficit. 5/5 UE motor strength. Normal sensation. No pronator drift. Ext: No C/C/E. Skin: Warm and dry without rash. Psych: Completely flat affect. Monotone speech.
[2020-10-16 01:42] VITALS: RESP 16
--- NOTE | 2020-10-16 01:45 | RT.EKG_ITS ---
APPROVED REPORT Exam: Resting ECG Patient Location: E HR:92 bpm ECG Measurements Heart Rate 92 AXIS SC 163 P 41 QRSd 100 QRS 47 QT 384 T 54 QTc 476 Conclusion Sinus rhythm...normal P axis, V-rate 60- 99 There are no significant changes compared to prior EKG performed on 10/12/2020 at 21:48.
[2020-10-16] MEDS: Ondansetron O.D.T. 4 MG TABEF PO (01:56)
[2020-10-16 02:43] LABS: Troponin I < 0.05 ng/mL (<0.06)
[2020-10-16 02:45] VITALS: BP 111/54; PULSE 83; RESP 16; TEMP 36.3; O2SAT 96
--- NOTE | 2020-10-16 03:00 | NUR.NOTE ---
Nursing Note: Patient sleeping on right side, no signs of restless for approximately [address] Murillo to bedside for assessment of admission. Patient arousable to painful stimuli.
--- NOTE | 2020-10-16 03:17 | NUR.NOTE ---
Nursing Note: Patient once again restless since being woken up. Redirection working.
--- NOTE | 2020-10-16 04:04 | NUR.NOTE ---
Nursing Note: Patient sleeping.
--- NOTE | 2020-10-16 05:22 | NUR.NOTE ---
Nursing Note: Patient sleeping with even respirations. RCT to arrive around 0700 for transport home.
--- NOTE | 2020-10-18 14:16 | NUR.NOTE ---
RETAIL LEADER Helene Sherwood RN Called requesting discharge summary fro last visit so patient can be placed in carebed. Requested info faxed at [phone].
== END 2020-10-16 06:10 | disposition home or self-care (01) ==
PROVIDERS: Emergency Provider Emergency Medicine; PCP Family Medicine
DX: R07.81 Pleurodynia (principal); R11.0 Nausea; F41.9 Anxiety disorder, unspecified; E11.9 Type 2 diabetes mellitus without complications; Z79.84 Long term (current) use of oral hypoglycemic drugs
CPT/HCPCS: 36415; 93005; 99284; 84484; 93010

== ENCOUNTER 2020-10-20 02:07 | Outpatient (CLI) | payer MEDICAID, SELFPAY ==
[2020-10-26 09:50] LABS: COVID-19 RT-PCR UVMMC Result Negative (Negative)
== END 2020-10-20 02:27 ==
PROVIDERS: PCP Family Medicine; Visit Provider Family Medicine
DX: Z11.59 Encounter for screening for other viral diseases (principal)
CPT/HCPCS: U0003

== ENCOUNTER 2020-12-11 04:30 | Emergency (ER) | payer MEDICAID, SELFPAY ==
[2020-12-11] VITALS (40 sets, daily range): BP systolic 121–168; BP diastolic 50–109; PULSE 72–125; RESP 15–25; TEMP 36.3; O2SAT 89–97
--- NOTE | 2020-12-11 04:00 | RT.EKG_ITS ---
APPROVED REPORT Exam: Resting ECG Patient Location: E HR:83 bpm ECG Measurements Heart Rate 83 AXIS MD 169 P 36 QRSd 107 QRS 35 QT 400 T 66 QTc 471 Conclusion Sinus rhythm...normal P axis, V-rate 60- 99 There are no significant changes compared to prior EKG performed on 10/16/2020 at 02:03.
--- NOTE | 2020-12-11 04:12 | ED.GENADUL_ITS ---
Discharge Plan Disposition Patient Disposition: HOME Condition: Good Discharge Details Clinical Impression: Chest fullness Primary Care Provider: Brandon Foster ED Provider: Dariel Matthews Muse Meds and New Rx's Prescriptions: Continued atenolol 50 MG tablet 1 tab PO DAILY Qty: 90 RF: 3 loratadine [Claritin Liqui-Gel] 10 MG capsule 1 cap PO DAILY Qty: 90 RF: 3 simvastatin 80 MG tablet 80 mg PO DAILY Qty: 90 RF: 3 acetaminophen [Tylenol] 325 MG tablet 1 tab PO PRN PRNRF: 0 albuterol sulfate [ProAir HFA] 200 PUFF HFA aerosol inhaler 1 inhaler Inhalation PRN PRNRF: 0 esomeprazole magnesium [Nexium] 20 mg Capsule,Delayed Release(Dr/Ec) 20 mg PO DAILY RF: 0 metformin 500 MG tablet 500 mg PO BID RF: 0 benztropine 0.5 MG tablet 0.5 mg PO BID RF: 0 aspirin,buffd-calcium carb-mag 325 MG tablet 325 mg PO DAILY RF: 0 fluoxetine 40 mg capsule 40 mg PO DAILY RF: 0 gabapentin 300 mg capsule 300 mg PO TID RF: 0 lorazepam 1 mg tablet 1 mg PO TID RF: 0 Risperdal Consta 25 mg/2 mL suspension,extended rel recon 25 mg IM USEASDIRECTD RF: 0 lactulose 10 gram/15 mL solution 20 g PO DIRECTED PRNRF: 0 Discharge Instructions Instructions: Chest Pain (ED) Additional Instructions: Your work-up this morning is reassuring. Your EKG and cardiac enzymes are normal. Chest x-ray normal. Other laboratory studies look fine. Fullness sensation likely not cardiac related but you should follow-up with primary care, call on Sunday for appointment. Return to ED if new or worsening pain, persistent shortness of breath, vomiting, or other concerns. Referrals: Brandon Foster [Primary Care Provider] - Medical Decision Making Patient presenting with complaint of chest fullness and shortness of breath. Symptoms have subsided significantly but still has fullness in his chest. His EKG is sinus rhythm, essentially normal and unchanged from before. Exam is unremarkable. He will receive aspirin while we wait for laboratory studies and chest x-ray to be done. Plan repeat troponin and EKG in 3 hours. Given multiple previous visit with similar complaint and negative work-up, suspicion is low for significant pathology such as ACS, PE. 05:30 - Patient's initial heart focus showed negative troponin and negative D- dimer. Mild anemia and electrolyte abnormalities, nothing of clinical significance. Chest x-ray unremarkable. Ambulatory to the bathroom without pro blem or complaint. Plan second EKG and troponin and if negative comfortable with discharge to follow-up with primary care. 07:30 - Repeat EKG is unchanged. No acute ST findings. If second troponin remains negative plan to discharge home referral to PCP. Medical Records Medical records reviewed: Yes I reviewed the patient's medical records. Lab Data Lab results reviewed: Yes I reviewed the patient's lab results. ECG Data Attestation: I personally reviewed and interpreted this ECG (s) as follows: Interpretation: see EKG HPI General Mode of arrival: EMS . Date/Time Provider Initiated Documentation: 12/11/20 05:31 . Limitations to Documentation: no limitations . Information obtained by: patient, RN notes reviewed and old records reviewed . HPI Narrative: Patient presents to the ED with complaints of fullness in his chest that started about an hour ago. He was up watching a movie when symptoms occurred. He has some discomfort into his armpit. He does not describe it as pain. He felt a little short of breath and nauseated. He has had this previously, and had been here a number of times in October with similar complaint. Denies any back or neck pain. He denies any abdominal pain. He has no leg pain or swelling. Denies fever or cough. He is on amoxicillin for dental problem. Denies any Covid exposures and no travel. Related Data Home Medications Medication Instructions Recorded Confirmed acetaminophen [Tylenol] 1 tab PO PRN PRN 08/20/14 12/11/20 albuterol sulfate [ProAir HFA] 1 inhaler INHALATION PRN PRN 08/20/14 12/11/20 atenolol 1 tab PO DAILY #90 tab 10/26/14 12/11/20 loratadine [Claritin Liqui-Gel] 1 cap PO DAILY #90 tab 12/16/14 12/11/20 simvastatin 80 mg PO DAILY #90 tab 12/21/14 12/11/20 aspirin,buffd-calcium carb-mag 325 mg PO DAILY 11/18/16 12/11/20 benztropine 0.5 mg PO BID 11/18/16 12/11/20 metformin 500 mg PO BID 11/18/16 12/11/20 Risperdal Consta 25 mg IM USEASDIRECTD 10/03/20 12/11/20 fluoxetine 40 mg PO DAILY 10/03/20 12/11/20 gabapentin 300 mg PO TID 10/03/20 12/11/20 lactulose 20 g PO DIRECTED PRN 10/03/20 12/11/20 lorazepam 1 mg PO TID 10/03/20 12/11/20 esomeprazole magnesium [Nexium] 20 mg PO DAILY 10/09/20 12/11/20 Allergies Allergy/AdvReac Type Severity Reaction Status Date / Time buspirone Allergy Unverified 10/16/20 01:38 paliperidone Allergy Unverified 10/16/20 01:38 paroxetine HCl [From Paxil] Allergy Unverified 10/16/20 01:38 sertraline Allergy Unverified 10/16/20 01:38 aripiprazole [From Abilify] AdvReac Intermediate INVOLUNTARY Unverified 10/16/20 01:38 MUSCLE MOVEMENTS divalproex sodium AdvReac Intermediate INVOLUNTARY Unverified 10/16/20 01:38 [From Depakote] MUSCLE MOVEMENTS mirtazapine AdvReac Intermediate INVOLUNTARY Unverified 10/16/20 01:38 MUSCLE MOVEMENTS risperidone AdvReac Intermediate INVOLUNTARY Unverified 10/16/20 01:38 MUSCLE MOVEMENTS benztropine mesylate AdvReac elevated Unverified 10/16/20 01:38 [From Cogentin] blood sugars enviornmental Allergy Mild Wheezing Uncoded 10/16/20 01:38 General CARLOS: 3 Review of Systems Narrative: As documented in HPI otherwise negative as below. Const: no fever, chills, weakness Resp: no cough, pleuritic pain CV: no diaphoresis, edema, syncope GI: no abdominal pain, vomiting, diarrhea Neuro: no headache, numbness, focal weakness, confusion [facility] Medical History Arrhythmia, atrial (09/07/14) Depression (10/02/14) Diabetes mellitus type 2 in obese (09/09/14) GERD (gastroesophageal reflux disease) (09/07/14) Hypercholesterolemia (09/07/14) Hypothyroidism (acquired) (09/07/14) Schizoaffective disorder (09/07/14) Rebekahdeshawn Mariscal, [facility] 09/2014- [facility] inpatient Family History Father No problems noted. Other Heart disease Social History Smoking/Tobacco Use Status: Current every day Tobacco Type: cigarettes Smoking risk assessment performed?: Yes Alcohol Intake: never Drug use: Never Substance use type: does not use Do you feel safe at home: Yes Do you feel safe in your relationship?: Yes Exam Narrative Exam Narrative: Const: Obese male in NAD. HEENT: NC/AT. Normal facial exam. Eyes: Normal conjunctiva and sclera. Neck: Supple. Trachea midline. Lungs: Normal respiratory effort. Lungs are clear. Cor: RRR without murmur/gallop. Good radial pulses. GI: Soft. NT/ND. No guarding or rebound. Neuro: A+O x 3. Normal speech, mentation, gait. Cranial nerves II - XII grossly intact. No gross motor or sensory deficit. Ext: No C/C/E. No calf tenderness. Skin: Warm and dry without rash.
[2020-12-11] MEDS: Aspirin 81 MG CHEW 324 MG CH (04:34)
[2020-12-11 04:38] LABS: Abs Immature Grans 0.05 10^3/uL (0.0-0.06); Absolute Basophil Count 0.02 10^3/uL (0.0-0.2); Absolute Eosinophil Count 0.29 10^3/uL (0.0-0.7); Absolute Lymphocyte Count 1.82 10^3/uL (1.2-3.4); Absolute Monocyte Count 0.66 10^3/uL (0.1-0.8); Absolute Neutrophil Count 7.34 10^3/uL (1.2-6.7); Basophils % 0.2; Eosinophils % 2.8; HCT 37.2 % (40.0-50.0); HGB 12.5 g/dL (13.5-17.5); Immature Grans % 0.5; Lymphocytes % 17.9; MCH 29.7 pg (27.0-33.0); MCHC 33.6 % (32.0-36.0); MCV 88.4 fL (80-95); MPV 8.3 fL (8.0-11.0); Monocytes % 6.5; Neutrophils % 72.1; Nucleated RBC 0 %; Platelet Count 208 10^3/uL (130-400); RBC 4.21 10^6/uL (4.36-5.78); RDW 12.4 % (11.8-14.1); RDW-SD 40.2 fL; WBC 10.18 10^3/uL (4.4-10.8)
[2020-12-11 04:53] LABS: ALT 43 U/L (16-63); AST 21 U/L (15-37); Albumin 3.3 g/dL (3.4-5.0); Alkaline Phosphatase 96 U/L (46-116); Anion Gap 9.3 mmol/L (3-11); BUN 10 mg/dL (7-18); Bilirubin, Total 0.2 mg/dL (0.2-1.0); CO2 26.7 mmol/L (21.0-32.0); Calcium 8.3 mg/dL (8.5-10.1); Chloride 99 mmol/L (98-107); Glucose 241 mg/dL (74-106); Magnesium 1.7 mg/dL (1.8-2.4); Potassium 3.9 mmol/L (3.5-5.1); Sodium 135 mmol/L (136-145); Total Protein 7.9 g/dL (6.4-8.2)
--- NOTE | 2020-12-11 04:55 | DI.RAD_ITS ---
EXAM: XR CHEST 2V PA LATERAL CLINICAL HISTORY: cp TECHNIQUE: 2D digital imaging was performed. COMPARISON: CR,XR XR CHEST 2V PA LATERAL from 10/03/2020 FINDINGS: MEDIASTINUM: Normal. HEART: Normal. PULMONARY VASCULATURE: Normal. LUNGS: Clear. PLEURAL SPACE: No pleural effusion or pneumothorax. BONE:Within normal limits for the patient's age. OTHER FINDINGS:Normal. IMPRESSION: No acute pulmonary findings. DATA REPOSITORY: RADIATION DOSE DELIVERED:
[2020-12-11 04:57] LABS: Troponin I < 0.05 ng/mL (<0.06)
--- NOTE | 2020-12-11 05:08 | DI.VRAD_ITS ---
PROCEDURE INFORMATION: Exam: XR Chest, 2 Views Exam date and time: 12/11/2020 4:31 AM Age: 55 years old Clinical indication: Chest pain; Type not specified TECHNIQUE: Imaging protocol: XR of the chest Views: 2 views. COMPARISON: CR XR CHEST 2V PA LATERAL 10/03/2020 7:45 PM FINDINGS: Lungs: Unremarkable. No consolidation. Pleural spaces: Unremarkable. No pleural effusion. No pneumothorax. Heart/Mediastinum: Unremarkable. No cardiomegaly. Bones/joints: Unremarkable. IMPRESSION: No acute findings. Dictated and Authenticated by: Doc Galvan MD. Ordering:MING Vieira MD
[2020-12-11 05:11] LABS: D-Dimer 418 ng/mlFEU (<500)
--- NOTE | 2020-12-11 07:00 | RT.EKG_ITS ---
APPROVED REPORT Exam: Resting ECG Patient Location: E HR:77 bpm ECG Measurements Heart Rate 77 AXIS HI 185 P 37 QRSd 99 QRS 32 QT 407 T 82 QTc 461 Conclusion Sinus rhythm...normal P axis, V-rate 60- 99 There are no significant changes compared to prior EKG performed on 12/11/2020 at 04:19.
[2020-12-11 07:50] LABS: Troponin I < 0.05 ng/mL (<0.06)
== END 2020-12-11 08:10 | disposition home or self-care (01) ==
PROVIDERS: Emergency Provider Emergency Medicine; PCP Family Medicine
DX: R07.89 Other chest pain (principal); R06.02 Shortness of breath; R11.0 Nausea
CPT/HCPCS: 36415; 80053; 93005; 99285; 71046; 83735; 84484; 85025; 85379; 93010; 99284

== ENCOUNTER 2020-12-15 17:53 | Emergency (ER) | payer MEDICAID, SELFPAY ==
[2020-12-15] VITALS (37 sets, daily range): BP systolic 106–148; BP diastolic 45–68; PULSE 69–85; RESP 13–26; TEMP 36.6–37; O2SAT 93–99
--- NOTE | 2020-12-15 17:45 | RT.EKG_ITS ---
APPROVED REPORT Exam: Resting ECG Patient Location: E HR:81 bpm ECG Measurements Heart Rate 81 AXIS IA 180 P 47 QRSd 102 QRS 33 QT 383 T 69 QTc 445 Conclusion Sinus rhythm...normal P axis, V-rate 60- 99 I have reviewed and interpreted ECG and agree with software generated interpretation.
--- NOTE | 2020-12-15 17:56 | W.ED.GENAD ---
Discharge Plan Disposition Patient Disposition: HOME Condition: Stable Discharge Details Clinical Impression: Chest pain, Pneumonia Primary Care Provider: Brandon Foster ED Provider: Froilan Iraheta Home Meds and New Rx's Prescriptions: New albuterol sulfate 90 mcg/actuation aerosol powdr breath activated 2 inh IH Q6H PRN (Reason: shortness of breath or wheezing) Qty: 1 RF: 0 levofloxacin 750 mg tablet 750 mg PO DAILY 4 Days Qty: 4 RF: 0 Continued atenolol 50 MG tablet 1 tab PO DAILY Qty: 90 RF: 3 loratadine [Claritin Liqui-Gel] 10 MG capsule 1 cap PO DAILY Qty: 90 RF: 3 simvastatin 80 MG tablet 80 mg PO DAILY Qty: 90 RF: 3 acetaminophen [Tylenol] 325 MG tablet 1 tab PO PRN PRNRF: 0 albuterol sulfate [ProAir HFA] 200 PUFF HFA aerosol inhaler 1 inhaler Inhalation PRN PRNRF: 0 esomeprazole magnesium [Nexium] 20 mg Capsule,Delayed Release(Dr/Ec) 20 mg PO DAILY RF: 0 metformin 500 MG tablet 500 mg PO BID RF: 0 benztropine 0.5 MG tablet 0.5 mg PO BID RF: 0 aspirin,buffd-calcium carb-mag 325 MG tablet 325 mg PO DAILY RF: 0 fluoxetine 40 mg capsule 40 mg PO DAILY RF: 0 gabapentin 300 mg capsule 300 mg PO TID RF: 0 lorazepam 1 mg tablet 1 mg PO TID RF: 0 Risperdal Consta 25 mg/2 mL suspension,extended rel recon 25 mg IM USEASDIRECTD RF: 0 lactulose 10 gram/15 mL solution 20 g PO DIRECTED PRNRF: 0 Discharge Instructions Instructions: Chest Pain (ED), Pneumonia (ED) Additional Instructions: Your chest x-ray shows that you may have a pneumonia in your left lower lung. Since you are a smoker and you have left-sided chest pain with some shortness of breath, you were given a prescription for antibiotics for this possible pneumonia. Take the antibiotics until finished. Use the albuterol inhaler as needed and directed for shortness breath or wheezing. You will receive a call from radiology regarding a follow-up appointment for an outpatient stress test. Follow-up with your primary care doctor in 1 week. Return to the emergency department with any worsening or new concerning symptoms. Discharge Data Discharge Physician: Florida Viera Medical Decision Making <Florida Viera DO - Last Filed: 12/15/20 19:24> 1810 -- 55-year-old male with a history of anxiety, depression, GERD, hypertension, hyperlipidemia, hypothyroidism and mitral valve prolapse presents for left-sided chest pain that started while sitting at home today. Review of records note that this is patient's fifth visit in the last 2 and half months for chest pain related complaints or anxiety. He had a negative CT chest in October. He states he has not had any recent stress test. EKG notes a rate of 81, sinus, no acute ST elevation or depression. AK 180. QRS 92. QTc 445. Low suspicion for cardiac etiology, however considering patient's age and comorbidities, will obtain a cardiac work-up, D-dimer chest x-ray. Patient has some scattered wheezing but doubt this is the source of his symptoms. He is a smoker. He was offered a neb treatment but declined and requesting 2 puffs of albuterol instead. 1899 -- Labs reviewed. Magnesium 1.6, will replete. Troponin negative. Chest x-ray notes a questionable left lower lobe pneumonia. As patient is a smoker had complaint of left-sided chest pain and shortness of breath, will plan to treat with antibiotics. Patient given 1 dose of Levaquin here as well as prescription for home. Heart score 3, patient low risk, do not see an indication for admission but will plan for repeat troponin and EKG. If repeat troponin and EKG unchanged, will plan for discharged home and follow-up for outpatient stress test. 1999 --Case endorsed to Dr. Iraheta to follow-up on repeat troponin and EKG. If negative can be discharged home with plan for follow-up with primary care doctor and for outpatient stress test. Medical Records Medical records reviewed: Yes I reviewed the patient's medical records. Imaging Data Radiologic Study: Radiologist's impression: XR Chest, 2 Views Exam date and time: 12/15/2020 6:39 PM Age: 55 years old Clinical indication: Chest pain TECHNIQUE: Imaging protocol: XR of the chest Views: 2 views. COMPARISON: CR XR CHEST 2V PA LATERAL 12/11/2020 4:51 AM FINDINGS: Lungs: Minimal left lower lobe atelectasis or infiltrate. Mild bronchial cuffing. The lungs are otherwise clear. Pleural spaces: Unremarkable. No pleural effusion. No pneumothorax. Heart/Mediastinum: The cardiac silhouette is upper limits of normal in size. Bones/joints: Unremarkable. IMPRESSION: 1. Minimal left lower lobe atelectasis or infiltrate. 2. Mild bronchial cuffing, suggesting bronchitis or reactive airways disease (asthma). <Froilan Iraheta DO - Last Filed: 12/15/20 21:53> Patient signed out to me by my colleague Dr. Florida Viera. Please refer to HPI, physical exam, assessment and plan. Plan was after repeat EKG and troponin is normal for discharge. Patient doing very well, he is asking and ready to go home. Repeat EKG and troponin unremarkable. We will continue with the prescribed plan of outpatient stress testing. Discussed red flags which to return. I have extensively reviewed the treatment plan and discharge instructions with the patient. I have addressed all patient concerns at this time. The patient was made aware of what symptoms to monitor for that would warrant a return to the emergency department. Discussed the plan with the patient, they demonstrate verbal understanding and agreement with our assessment and plan at this time. The documentation in this chart was dictated using [employer] dictation software. Please excuse any dictation errors. HPI <Florida Viera, - Last Filed: 12/15/20 19:24> General Mode of arrival: ambulatory. Date/Time Provider Initiated Documentation: 12/15/20 17:54. Limitations to Documentation: no limitations. Information obtained by: patient. HPI Narrative: Pt is a 55yo M with a history of hyperlipidemia, GERD, diabetes, depression, hypothyroidism, schizoaffective disorder and chronic tobacco smoker who presents to the ED with a complaint of left-sided chest pain that started while sitting at home today. Patient states he was watching TV when he developed left-sided dull chest pain that radiated under his left armpit. He states the pain is currently 5 but has been 7/10 at its worst. He has not taken any medication for symptoms. He does admit to some shortness of breath at onset but denies any at present. He also admits to some dizziness but denies any fever, cough, nausea, vomiting, leg pain or swelling. Of note, this is patient's fifth visit for chest pain or anxiety complaints in the last 2 and half months. Related Data Home Medications Medication Instructions Recorded Confirmed acetaminophen [Tylenol] 1 tab PO PRN PRN 08/20/14 12/15/20 albuterol sulfate [ProAir HFA] 1 inhaler INHALATION PRN PRN 08/20/14 12/15/20 atenolol 1 tab PO DAILY #90 tab 10/26/14 12/15/20 loratadine [Claritin Liqui-Gel] 1 cap PO DAILY #90 tab 12/16/14 12/15/20 simvastatin 80 mg PO DAILY #90 tab 12/21/14 12/15/20 aspirin,buffd-calcium carb-mag 325 mg PO DAILY 11/18/16 12/15/20 benztropine 0.5 mg PO BID 11/18/16 12/15/20 metformin 500 mg PO BID 11/18/16 12/15/20 Risperdal Consta 25 mg IM USEASDIRECTD 10/03/20 12/15/20 fluoxetine 40 mg PO DAILY 10/03/20 12/15/20 gabapentin 300 mg PO TID 10/03/20 12/15/20 lactulose 20 g PO DIRECTED PRN 10/03/20 12/15/20 lorazepam 1 mg PO TID 10/03/20 12/15/20 esomeprazole magnesium [Nexium] 20 mg PO DAILY 10/09/20 12/15/20 albuterol sulfate 2 inh IH Q6H PRN #1 each 12/15/20 levofloxacin 750 mg PO DAILY 4 Days #4 tab 12/15/20 Previous Rx's Medication Instructions Recorded albuterol sulfate 2 inh IH Q6H PRN #1 each 12/15/20 levofloxacin 750 mg PO DAILY 4 Days #4 tab 12/15/20 Allergies Allergy/AdvReac Type Severity Reaction Status Date / Time buspirone Allergy Unverified 12/15/20 18:17 paliperidone Allergy Unverified 12/15/20 18:17 paroxetine HCl [From Paxil] Allergy Unverified 12/15/20 18:17 sertraline Allergy Unverified 12/15/20 18:17 aripiprazole [From Abilify] AdvReac Intermediate INVOLUNTARY Unverified 12/15/20 18:17 MUSCLE MOVEMENTS divalproex sodium AdvReac Intermediate INVOLUNTARY Unverified 12/15/20 18:17 [From Depakote] MUSCLE MOVEMENTS mirtazapine AdvReac Intermediate INVOLUNTARY Unverified 12/15/20 18:17 MUSCLE MOVEMENTS risperidone AdvReac Intermediate INVOLUNTARY Unverified 12/15/20 18:17 MUSCLE MOVEMENTS benztropine mesylate AdvReac elevated Unverified 12/15/20 18:17 [From Cogentin] blood sugars enviornmental Allergy Mild Wheezing Uncoded 12/15/20 18:17 General CARLOS: 3 Review of Systems <Florida Viera DO - Last Filed: 12/15/20 19:24> All systems reviewed & are unremarkable except as noted in HPI and below Constitutional Constitutional: Reports as per HPI, Denies chills and Denies fever(s) Eyes Eyes: Denies blurry vision ENT Ears, Nose, Mouth, and Throat: Denies dizziness, Denies sore throat and Denies throat swelling Cardiovascular Cardiovascular: Reports chest pain and Reports dyspnea Respiratory Respiratory: Denies cough and Reports dyspnea Gastrointestinal Gastrointestinal: Denies abdominal pain, Denies diarrhea and Denies vomiting Genitourinary Genitourinary: Denies hematuria and Denies dysuria Musculoskeletal Musculoskeletal: Denies back pain and Denies numbness Integumentary/Breasts Skin/Breast: Denies lesions and Denies rash Neurologic Neurologic: Denies dizziness, Denies localized weakness and Denies numbness Allergic/Immunologic Allergic/Immunologic: Denies throat swelling PFSH <Florida Viera DO - Last Filed: 12/15/20 19:24> Medical History Arrhythmia, atrial (09/07/14) Depression (10/02/14) Diabetes mellitus type 2 in obese (09/09/14) GERD (gastroesophageal reflux disease) (09/07/14) Hypercholesterolemia (09/07/14) Hypothyroidism (acquired) (09/07/14) Schizoaffective disorder (09/07/14) Rebekah Mariscal YENI 09/2014- [facility], [facility] inpatient Family History Father No problems noted. Other Heart disease Social History Smoking/Tobacco Use Status: Current every day Tobacco Type: cigarettes Smoking risk assessment performed?: Yes Alcohol Intake: never Drug use: Never Substance use type: does not use Do you feel safe at home: Yes Do you feel safe in your relationship?: Yes Exam <Florida Viera DO - Last Filed: 12/15/20 19:24> Const General: cooperative and no acute distress Nutritional Appearance: obese morbidly obese Orientation: alert, awake and oriented x3 HENMT Head: normal to inspection Face and sinus: normal facial exam Eyes General: appearance normal, both eyes and all related structures EOM: EOM intact bilaterally Neck Neck: normal visual inspection and No submandibular swelling Lymphatic: no lymphadenopathy noted Chest Chest: normal inspection of the chest and no tenderness Resp Effort & Inspection: normal respiratory effort and able to speak in complete sentences Auscultation: clear to auscultation bilaterally Cardio Rate: regular rate Rhythm: regular rhythm GI Inspection: normal to inspection and obesity Palpation: soft, not firm, not rigid and nontender Auscultation: normal bowel sounds Skin General skin exam: no rashes or lesions noted Neuro General: patient alert, patient awake and patient oriented x3 Cognition: normal cognition Speech: speech normal Motor: muscle tone normal throughout Sensory Exam: no sensory deficits noted Extrem General: normal to inspection, full ROM, capillary refill normal, no calf tenderness bilaterally and no edema Psych Appearance: grossly normal Mental Status: mental status grossly normal Speech and Movement: speech and movement normal Affect: normal affect Sign Out <Florida Viera DO - Last Filed: 12/15/20 19:24> Sign Out Data: Sign Out Comment: Follow-up on repeat troponin and EKG. If negative, can discharge home with plan for outpatient stress test and treatment of pneumonia with Levaquin. Last updated by Florida Viera DO at 12/15/20 20:02
--- NOTE | 2020-12-15 18:15 | RT.EKG_ITS ---
APPROVED REPORT Exam: Resting ECG Patient Location: E HR:74 bpm ECG Measurements Heart Rate 74 AXIS AK 189 P 55 QRSd 100 QRS 33 QT 404 T 77 QTc 449 Conclusion Sinus rhythm...normal P axis, V-rate 60- 99 I have reviewed and interpreted ECG and agree with software generated interpretation. Physician: No stemi, unchanged
[2020-12-15 18:21] LABS: Abs Immature Grans 0.04 10^3/uL (0.0-0.06); Absolute Basophil Count 0.03 10^3/uL (0.0-0.2); Absolute Eosinophil Count 0.31 10^3/uL (0.0-0.7); Absolute Lymphocyte Count 2.04 10^3/uL (1.2-3.4); Absolute Monocyte Count 0.57 10^3/uL (0.1-0.8); Absolute Neutrophil Count 6.39 10^3/uL (1.2-6.7); Basophils % 0.3; Eosinophils % 3.3; HCT 35.5 % (40.0-50.0); HGB 11.9 g/dL (13.5-17.5); Immature Grans % 0.4; Lymphocytes % 21.7; MCH 29.7 pg (27.0-33.0); MCHC 33.5 % (32.0-36.0); MCV 88.5 fL (80-95); MPV 8.4 fL (8.0-11.0); Monocytes % 6.1; Neutrophils % 68.2; Nucleated RBC 0 %; Platelet Count 215 10^3/uL (130-400); RBC 4.01 10^6/uL (4.36-5.78); RDW 12.4 % (11.8-14.1); RDW-SD 40.2 fL; WBC 9.38 10^3/uL (4.4-10.8)
[2020-12-15] MEDS: Albuterol HFA 8 GM 60 PUFF INH IH (18:30)
[2020-12-15] MEDS: Inhaler, Assist Device 1 EACH MC (18:31)
[2020-12-15 18:34] LABS: ALT 40 U/L (16-63); AST 18 U/L (15-37); Albumin 3.1 g/dL (3.4-5.0); Alkaline Phosphatase 84 U/L (46-116); Anion Gap 6.9 mmol/L (3-11); BUN 8 mg/dL (7-18); Bilirubin, Total 0.3 mg/dL (0.2-1.0); CO2 30.1 mmol/L (21.0-32.0); CREATININE 0.9 mg/dL (0.70-1.30); Calcium 8.5 mg/dL (8.5-10.1); Chloride 100 mmol/L (98-107); Glucose 175 mg/dL (74-106); Magnesium 1.6 mg/dL (1.8-2.4); Potassium 4.1 mmol/L (3.5-5.1); Sodium 137 mmol/L (136-145); Total Protein 7.5 g/dL (6.4-8.2)
[2020-12-15 18:35] LABS: Troponin I < 0.05 ng/mL (<0.06)
[2020-12-15 18:39] LABS: PTT Activated 22.7 sec (21.0-27.5); Prothrombin Time 10.2 sec (9.3-11.0)
--- NOTE | 2020-12-15 18:43 | DI.RAD_ITS ---
EXAM: XR CHEST 2V PA LATERAL CLINICAL HISTORY: chest pain, r/o acute disease TECHNIQUE: 2D digital imaging was performed. COMPARISON: CR,XR XR CHEST 2V PA LATERAL from 12/11/2020 FINDINGS: Exam is limited by the patient's body habitus. The lungs are suboptimally inflated. No focal infilt rate or effusion is seen. The heart size is normal. There is a question of mild peribronchial thick ening which could indicate bronchitis or ectopia reactive airways disease. There is no pneumothorax. No rib fracture is visible. There is no thoracic compression fracture. IMPRESSION: Mild peribronchial thickening. DATA REPOSITORY: RADIATION DOSE DELIVERED:
--- NOTE | 2020-12-15 18:49 | DI.VRAD_ITS ---
PROCEDURE INFORMATION: Exam: XR Chest, 2 Views Exam date and time: 12/15/2020 6:39 PM Age: 55 years old Clinical indication: Chest pain TECHNIQUE: Imaging protocol: XR of the chest Views: 2 views. COMPARISON: CR XR CHEST 2V PA LATERAL 12/11/2020 4:51 AM FINDINGS: Lungs: Minimal left lower lobe atelectasis or infiltrate. Mild bronchial cuffing. The lungs are otherwise clear. Pleural spaces: Unremarkable. No pleural effusion. No pneumothorax. Heart/Mediastinum: The cardiac silhouette is upper limits of normal in size. Bones/joints: Unremarkable. IMPRESSION: 1. Minimal left lower lobe atelectasis or infiltrate. 2. Mild bronchial cuffing, suggesting bronchitis or reactive airways disease (asthma). Dictated and Authenticated by: Sparkle Moody MD. Ordering:DORENE Bartholomew MD
--- NOTE | 2020-12-15 18:50 | NUR.NOTE ---
Nursing Note: Request for stress test faxed to DI. Selena Gutierrez
[2020-12-15 18:57] LABS: D-Dimer 426 ng/mlFEU (<500)
[2020-12-15] MEDS: MAGNESIUM SULFATE 1 GM/100 ML BAG IVPB (18:58)
[2020-12-15] MEDS: levoFLOXacin 500 MG, levoFLOXacin 250 MG 750 MG PO (19:05)
[2020-12-15 21:43] LABS: Troponin I < 0.05 ng/mL (<0.06)
[2020-12-17 13:16] LABS: COVID-19 RT-PCR UVMMC Result Negative (Negative)
--- NOTE | 2020-12-18 09:31 | NUR.NOTE ---
left message for pt. to return call for test results. 12/18/20 @0931.
--- NOTE | 2020-12-20 08:02 | NUR.NOTE ---
Nursing Note: Left Message on phone to call ER for test result.
--- NOTE | 2020-12-20 11:38 | NUR.NOTE ---
Nursing Note: Letter with Negative Covid result mailed to Mr. Sharp.
== END 2020-12-15 22:01 | disposition home or self-care (01) ==
PROVIDERS: Physician Assistant; Emergency Provider Student in an Organized Health Care Education/Training Program; PCP Family Medicine
DX: J18.8 Other pneumonia, unspecified organism (principal); R07.89 Other chest pain; E83.42 Hypomagnesemia; F17.210 Nicotine dependence, cigarettes, uncomplicated; Z03.818 Encounter for observation for suspected exposure to other biological agents ruled out
CPT/HCPCS: 36415; 80053; 93005; 96365; 99285; U0003; 71046; 83735; 84484; 85025; 85379; 85610; 85730; 93010; J3475

== ENCOUNTER 2020-12-22 02:05 | Emergency (ER) | payer MEDICAID, SELFPAY ==
[2020-12-22 02:06] VITALS: BP 147/75; PULSE 89; RESP 18; TEMP 36.5; O2SAT 98
--- NOTE | 2020-12-22 02:15 | DI.RAD_ITS ---
EXAM: XR PORTABLE CHEST AP CLINICAL HISTORY: Feels left lung has fluid in it. TECHNIQUE: 2D digital imaging was performed. COMPARISON: Prior chest x-ray 12/15/2020 FINDINGS: Heart size is unchanged. The mediastinum is not widened. Lungs are clear. No infiltrates nor obvious pleural effusions. IMPRESSION: No acute pulmonary findings on this single AP portable view of the chest. DATA REPOSITORY: RADIATION DOSE DELIVERED:
--- NOTE | 2020-12-22 02:29 | W.ED.GENAD ---
Discharge Plan Disposition Patient Disposition: HOME Condition: Stable Discharge Details Clinical Impression: Chest fullness Primary Care Provider: Brandon Foster ED Provider: Doc Ramos Home Meds and New Rx's Prescriptions: Continued atenolol 50 MG tablet 1 tab PO DAILY Qty: 90 RF: 3 loratadine [Claritin Liqui-Gel] 10 MG capsule 1 cap PO DAILY Qty: 90 RF: 3 simvastatin 80 MG tablet 80 mg PO DAILY Qty: 90 RF: 3 acetaminophen [Tylenol] 325 MG tablet 1 tab PO PRN PRNRF: 0 albuterol sulfate [ProAir HFA] 200 PUFF HFA aerosol inhaler 1 inhaler Inhalation PRN PRNRF: 0 esomeprazole magnesium [Nexium] 20 mg Capsule,Delayed Release(Dr/Ec) 20 mg PO DAILY RF: 0 metformin 500 MG tablet 500 mg PO BID RF: 0 benztropine 0.5 MG tablet 0.5 mg PO BID RF: 0 aspirin,buffd-calcium carb-mag 325 MG tablet 325 mg PO DAILY RF: 0 fluoxetine 40 mg capsule 40 mg PO DAILY RF: 0 gabapentin 300 mg capsule 300 mg PO TID RF: 0 lorazepam 1 mg tablet 1 mg PO TID RF: 0 Risperdal Consta 25 mg/2 mL suspension,extended rel recon 25 mg IM USEASDIRECTD RF: 0 lactulose 10 gram/15 mL solution 20 g PO DIRECTED PRNRF: 0 albuterol sulfate 90 mcg/actuation aerosol powdr breath activated 2 inh IH Q6H PRN (Reason: shortness of breath or wheezing) Qty: 1 RF: 0 Discharge Instructions Additional Instructions: Your xray did not show any evidence of worsening lung infection, they appeared clear follow up with your primary care provider within 1 week if you feel more ill, have worsening symptoms or high fevers return to the emergency department Medical Decision Making 55 yo male with hx of DM, gerd, hld, schizoaffective disorder, who comes in with complaints of feeling as though his left lung is filled with fluid. He has had similar complaints in the past with negative workups in the past. He states he was seen in the ED at [place] for similar symptoms and diagnosed with pneumonia on Sunday and prescribed doxycycline and took his first dose last night and noticed no improvement so came here. Denies chest pain/pressure, fevers, chills. He has no hypoxia and can speak in full sentences on exam, no pericardial or pleural effusion on ultrasound. Normal lung sounds as well. Suspect this is anxiety vs pneumonia that he is being treated for, will obtain xray to evaluate for edema vs infiltrate. No chest pain or pressure so doubt acs at this time xray unremarkable and he remains hemodynamically stable with no fever, chest pain, or visible signs of dyspnea. I advised he continue his doxycycline and follow up with pcp, return precautions given Differential Diagnosis Differential Diagnosis: pneumonia, edema, anxiety Imaging Data Radiologic Study: Attestation: I personally reviewed and interpreted this imaging study as follows: Imaging: X-Ray Radiologist's impression: no acute findings HPI General Mode of arrival: EMS. Date/Time Provider Initiated Documentation: 12/22/20 02:12. Limitations to Documentation: no limitations. Information obtained by: patient. History of Present Illness 55 year old M presents to the emergency department with the chief complaint of left lung feels full of fluid, described as mild, Patient started experiencing this month(s) (2) and it has been constant. No relieving factors improve symptom(s), No exacerbating factors reported . Related Data Home Medications Medication Instructions Recorded Confirmed acetaminophen [Tylenol] 1 tab PO PRN PRN 08/20/14 12/15/20 albuterol sulfate [ProAir HFA] 1 inhaler INHALATION PRN PRN 08/20/14 12/15/20 atenolol 1 tab PO DAILY #90 tab 10/26/14 12/15/20 loratadine [Claritin Liqui-Gel] 1 cap PO DAILY #90 tab 12/16/14 12/15/20 simvastatin 80 mg PO DAILY #90 tab 12/21/14 12/15/20 aspirin,buffd-calcium carb-mag 325 mg PO DAILY 11/18/16 12/15/20 benztropine 0.5 mg PO BID 11/18/16 12/15/20 metformin 500 mg PO BID 11/18/16 12/15/20 Risperdal Consta 25 mg IM USEASDIRECTD 10/03/20 12/15/20 fluoxetine 40 mg PO DAILY 10/03/20 12/15/20 gabapentin 300 mg PO TID 10/03/20 12/15/20 lactulose 20 g PO DIRECTED PRN 10/03/20 12/15/20 lorazepam 1 mg PO TID 10/03/20 12/15/20 esomeprazole magnesium [Nexium] 20 mg PO DAILY 10/09/20 12/15/20 albuterol sulfate 2 inh IH Q6H PRN #1 each 12/15/20 Previous Rx's Medication Instructions Recorded albuterol sulfate 2 inh IH Q6H PRN #1 each 12/15/20 Allergies Allergy/AdvReac Type Severity Reaction Status Date / Time buspirone Allergy Unverified 12/15/20 18:17 paliperidone Allergy Unverified 12/15/20 18:17 paroxetine HCl [From Paxil] Allergy Unverified 12/15/20 18:17 sertraline Allergy Unverified 12/15/20 18:17 aripiprazole [From Abilify] AdvReac Intermediate INVOLUNTARY Unverified 12/15/20 18:17 MUSCLE MOVEMENTS divalproex sodium AdvReac Intermediate INVOLUNTARY Unverified 12/15/20 18:17 [From Depakote] MUSCLE MOVEMENTS mirtazapine AdvReac Intermediate INVOLUNTARY Unverified 12/15/20 18:17 MUSCLE MOVEMENTS risperidone AdvReac Intermediate INVOLUNTARY Unverified 12/15/20 18:17 MUSCLE MOVEMENTS benztropine mesylate AdvReac elevated Unverified 12/15/20 18:17 [From Cogentin] blood sugars enviornmental Allergy Mild Wheezing Uncoded 12/15/20 18:17 General Stated Complaint: RespSymp CARLOS: 4 Review of Systems All systems reviewed & are unremarkable except as noted in HPI and below Constitutional Constitutional: Denies chills, Denies fever(s) and Denies weakness Cardiovascular Cardiovascular: Denies chest pain Respiratory Respiratory: Denies cough Gastrointestinal Gastrointestinal: Denies abdominal pain, Denies nausea and Denies vomiting Musculoskeletal Musculoskeletal: Denies joint swelling Neurologic Neurologic: Denies weakness Psychiatric Psychiatric: Denies depression [facility] Medical History Arrhythmia, atrial (09/07/14) Depression (10/02/14) Diabetes mellitus type 2 in obese (09/09/14) GERD (gastroesophageal reflux disease) (09/07/14) Hypercholesterolemia (09/07/14) Hypothyroidism (acquired) (09/07/14) Schizoaffective disorder (09/07/14) Rebekah Mariscal [facility] 09/2014- [facility] inpatient Family History Father No problems noted. Other Heart disease Social History Smoking/Tobacco Use Status: Current every day Tobacco Type: cigarettes Smoking risk assessment performed?: Yes Alcohol Intake: never Drug use: Never Substance use type: does not use Do you feel safe at home: Yes Do you feel safe in your relationship?: Yes Exam Const General: no acute distress Orientation: alert HENMT Head: normal to inspection Ears: external ears normal General nose exam: external nose normal Mouth: moist mucous membranes Eyes General: appearance normal, both eyes and all related structures Neck Neck: normal visual inspection Resp Effort & Inspection: normal respiratory effort and able to speak in complete sentences Cardio Rate: regular rate Skin General skin exam: no rashes or lesions noted Neuro General: patient alert and patient oriented x3 Extrem General: normal to inspection Psych Mental Status: mental status grossly normal Course Vital Signs Vital signs: Vital Signs Temperature 36.5 C 12/22/20 02:06 Pulse 89 12/22/20 02:06 Respiratory Rate 18 12/22/20 02:06 Blood Pressure 147/75 H 12/22/20 02:06 Pulse Oximetry 98 12/22/20 02:06 Temperature 36.5 C 12/22/20 02:06 Temperature Source Temporal Artery Scan 12/22/20 02:06 Pulse 89 12/22/20 02:06 Respiratory Rate 18 12/22/20 02:06 Respiratory Effort Non-Labored 12/22/20 02:11 Blood Pressure 147/75 H 12/22/20 02:06 Pulse Oximetry 98 12/22/20 02:06 Oxygen Delivery Method Room Air 12/22/20 02:06 Oxygen Flow Rate 0 12/22/20 02:06 Pain Level 8 12/22/20 02:06
--- NOTE | 2020-12-22 02:57 | DI.VRAD_ITS ---
PROCEDURE INFORMATION: Exam: XR Chest, 1 View Exam date and time: 12/22/2020 2:42 AM Age: 55 years old Clinical indication: Left-sided chest pain; Patient HX: Feels left lung has fluid in it TECHNIQUE: Imaging protocol: XR of the chest Views: 1 view. COMPARISON: CR XR CHEST 2V PA LATERAL 12/15/2020 6:36 PM FINDINGS: Lungs: Unremarkable. No consolidation. Pleural spaces: Unremarkable. No pleural effusion. No pneumothorax. Heart/Mediastinum: Unremarkable. No cardiomegaly. Bones/joints: Unremarkable. IMPRESSION: No acute findings. Dictated and Authenticated by: Jose Goff MD. Ordering:KAVITA Roach MD
[2020-12-22 03:33] VITALS: BP 147/75; PULSE 89; RESP 18; TEMP 36.5; O2SAT 98
--- NOTE | 2020-12-22 04:08 | NUR.NOTE ---
Nursing Note: Referral to pcp through care management faxed 12/22/2020 libl
== END 2020-12-22 03:30 | disposition home or self-care (01) ==
PROVIDERS: Emergency Provider Emergency Medicine; PCP Family Medicine
DX: R91.8 Other nonspecific abnormal finding of lung field (principal); E11.9 Type 2 diabetes mellitus without complications; Z79.84 Long term (current) use of oral hypoglycemic drugs
CPT/HCPCS: 99284; 71045; 99283

== ENCOUNTER 2020-12-26 19:13 | Emergency (ER) | payer MEDICAID, SELFPAY ==
[2020-12-26] VITALS (29 sets, daily range): BP systolic 130–169; BP diastolic 62–111; PULSE 68–84; RESP 11–23; TEMP 36.5; O2SAT 94–97
--- NOTE | 2020-12-26 19:00 | RT.EKG_ITS ---
APPROVED REPORT Exam: Resting ECG Patient Location: E HR:84 bpm ECG Measurements Heart Rate 84 AXIS NM 182 P 25 QRSd 107 QRS 36 QT 392 T 60 QTc 465 Conclusion Sinus rhythm...normal P axis, V-rate 60- 99 Nonspecific T abnrm, anterolateral leads...T <-0.10mV, I aVL V2-V6. No STEMI. Artifact anterior leads.
--- NOTE | 2020-12-26 19:30 | RT.EKG_ITS ---
APPROVED REPORT Exam: Resting ECG Patient Location: E HR:75 bpm ECG Measurements Heart Rate 75 AXIS ID 197 P 61 QRSd 106 QRS 32 QT 428 T 41 QTc 477 Conclusion Sinus rhythm...normal P axis, V-rate 60- 99
[2020-12-26] MEDS: Acetaminophen 500 MG TAB 1000 MG PO (20:09)
[2020-12-26 20:13] LABS: Abs Immature Grans 0.04 10^3/uL (0.0-0.06); Absolute Basophil Count 0.02 10^3/uL (0.0-0.2); Absolute Eosinophil Count 0.26 10^3/uL (0.0-0.7); Absolute Lymphocyte Count 2.11 10^3/uL (1.2-3.4); Absolute Monocyte Count 0.61 10^3/uL (0.1-0.8); Absolute Neutrophil Count 6.64 10^3/uL (1.2-6.7); Basophils % 0.2; Eosinophils % 2.7; Immature Grans % 0.4; Lymphocytes % 21.8; MCH 29.5 pg (27.0-33.0); MCHC 33.3 % (32.0-36.0); MCV 88.5 fL (80-95); MPV 8.9 fL (8.0-11.0); Monocytes % 6.3; Neutrophils % 68.6; Nucleated RBC 0 %; Platelet Count 222 10^3/uL (130-400); RBC 4.07 10^6/uL (4.36-5.78); RDW 12.4 % (11.8-14.1); RDW-SD 40.2 fL; WBC 9.68 10^3/uL (4.4-10.8)
--- NOTE | 2020-12-26 20:18 | ED.GENADUL_ITS ---
Discharge Plan Disposition Patient Disposition: HOME Condition: Stable Discharge Details Clinical Impression: Chest pain Primary Care Provider: Brandon Foster ED Provider: Lucille Farley Home Meds and New Rx's Prescriptions: New ondansetron HCl [Zofran] 4 mg tablet 4 mg PO Q8H Qty: 7 RF: 0 No Action atenolol 50 MG tablet 1 tab PO DAILY Qty: 90 RF: 3 loratadine [Claritin Liqui-Gel] 10 MG capsule 1 cap PO DAILY Qty: 90 RF: 3 simvastatin 80 MG tablet 80 mg PO DAILY Qty: 90 RF: 3 acetaminophen [Tylenol] 325 MG tablet 1 tab PO PRN PRNRF: 0 albuterol sulfate [ProAir HFA] 200 PUFF HFA aerosol inhaler 1 inhaler Inhalation PRN PRNRF: 0 esomeprazole magnesium [Nexium] 20 mg Capsule,Delayed Release(Dr/Ec) 20 mg PO DAILY RF: 0 metformin 500 MG tablet 500 mg PO BID RF: 0 benztropine 0.5 MG tablet 0.5 mg PO BID RF: 0 aspirin,buffd-calcium carb-mag 325 MG tablet 325 mg PO DAILY RF: 0 fluoxetine 40 mg capsule 80 mg PO DAILY RF: 0 gabapentin 300 mg capsule 300 mg PO TID RF: 0 lorazepam 1 mg tablet 1 mg PO BID RF: 0 Risperdal Consta 25 mg/2 mL suspension,extended rel recon 25 mg IM USEASDIRECTD RF: 0 lactulose 10 gram/15 mL solution 20 g PO DIRECTED PRNRF: 0 albuterol sulfate 90 mcg/actuation aerosol powdr breath activated 2 inh IH Q6H PRN (Reason: shortness of breath or wheezing) Qty: 1 RF: 0 Discharge Instructions Instructions: Chest Pain (ED) Additional Instructions: Take Tylenol as needed for discomfort Zofran as needed for nausea Recommend taking a multivitamin for magnesium supplementation Follow-up with your doctor tomorrow for reevaluation and return earlier should you have new or worsening complaints Medical Decision Making Heart score of 3, given patient comorbidities, check to troponin levels, 2 EKGs Patient has had numerous evaluations for similar pain After Tylenol, Ativan, Zofran, patient is symptomatically improved His pain is pleuritic and actually reproducible in nature so this pain would be atypical in my suspicion for cardiac etiology although patient does have comorbidities quite low Smoking cessation discussed Initial EKG and troponin are reassuring EKG without elevation ST D-dimer negative, low suspicion for pulmonary embolism clinically Reproducible chest pain, suspect musculoskeletal in nature or pleuritic component Low suspicion for angina, EKG similar to prior when compared Virtual radiology did indicate possible left lower lobe infiltrate, I have compared this to prior chest x-rays and I do not see evidence of pneumonia, patient does not have leukocytosis or any upper respiratory symptoms, he is not hypoxic or febrile, my suspicion for pneumonia is quite low clinically Recheck in 24 hours recommended Patient will be signed out to Dr. Ramos pending review to troponin and is in stable condition at time of reevaluation, he is feeling overall symptomatically improved Differential Diagnosis Differential Diagnosis: Pulmonary embolism, angina, ST elevation DE, pneumonia Medical Records Medical records reviewed: Yes I reviewed the patient's medical records. HPI This 55-year-old gentleman with a past medical history of hypercholesterolemia, hypothyroidism, diabetes type 2, mitral valve prolapse, chest pain, schizoaffective disorder. Presents with chest pain which started 2 hours prior to arrival. Patient states he was at rest when pain began. He describes it as a sharp pleuritic pain. He denies any radiation of discomfort. He stopped have some mild nausea. He is also feeling quite anxious. He states that occasionally he does have discomfort in his chest when he is anxious. He denies any suicidal ideation or attempts to harm self. He denies any shortness of breath associated. He does smoke tobacco on a daily basis. He has a history of hypertension, hyperlipidemia, and metabolic syndrome. He has not had any exertional chest pain in the past several days. He states he has been evaluated numerous times for this pain in the past. He reports he has had a stress test, he is unsure as to when. He denies known early cardiac family history. He denies any trauma to the affected area. He denies any recent flights, surgeries, history of long drives, history of coagulopathy. Denies calf pain or swelling. Denies orthopnea or peripheral edema. General Date/Time Provider Initiated Documentation: 12/26/20 19:16 . Related Data Home Medications Medication Instructions Recorded Confirmed acetaminophen [Tylenol] 1 tab PO PRN PRN 08/20/14 12/26/20 albuterol sulfate [ProAir HFA] 1 inhaler INHALATION PRN PRN 08/20/14 12/26/20 atenolol 1 tab PO DAILY #90 tab 10/26/14 12/26/20 loratadine [Claritin Liqui-Gel] 1 cap PO DAILY #90 tab 12/16/14 12/26/20 simvastatin 80 mg PO DAILY #90 tab 12/21/14 12/26/20 aspirin,buffd-calcium carb-mag 325 mg PO DAILY 11/18/16 12/26/20 benztropine 0.5 mg PO BID 11/18/16 12/26/20 metformin 500 mg PO BID 11/18/16 12/26/20 Risperdal Consta 25 mg IM USEASDIRECTD 10/03/20 12/26/20 fluoxetine 80 mg PO DAILY 10/03/20 12/26/20 gabapentin 300 mg PO TID 10/03/20 12/26/20 lactulose 20 g PO DIRECTED PRN 10/03/20 12/26/20 lorazepam 1 mg PO BID 10/03/20 12/26/20 esomeprazole magnesium [Nexium] 20 mg PO DAILY 10/09/20 12/26/20 albuterol sulfate 2 inh IH Q6H PRN #1 each 12/15/20 ondansetron HCl [Zofran] 4 mg PO Q8H #7 tab 12/26/20 Previous Rx's Medication Instructions Recorded albuterol sulfate 2 inh IH Q6H PRN #1 each 12/15/20 ondansetron HCl [Zofran] 4 mg PO Q8H #7 tab 12/26/20 Allergies Allergy/AdvReac Type Severity Reaction Status Date / Time buspirone Allergy Unverified 12/26/20 19:28 paliperidone Allergy Unverified 12/26/20 19:28 paroxetine HCl [From Paxil] Allergy Unverified 12/26/20 19:28 sertraline Allergy Unverified 12/26/20 19:28 aripiprazole [From Abilify] AdvReac Intermediate INVOLUNTARY Unverified 12/26/20 19:28 MUSCLE MOVEMENTS divalproex sodium AdvReac Intermediate INVOLUNTARY Unverified 12/26/20 19:28 [From Depakote] MUSCLE MOVEMENTS mirtazapine AdvReac Intermediate INVOLUNTARY Unverified 12/26/20 19:28 MUSCLE MOVEMENTS risperidone AdvReac Intermediate INVOLUNTARY Unverified 12/26/20 19:28 MUSCLE MOVEMENTS benztropine mesylate AdvReac elevated Unverified 12/26/20 19:28 [From Cogentin] blood sugars enviornmental Allergy Mild Wheezing Uncoded 12/26/20 19:28 General Stated Complaint: Chest/Rib CARLOS: 2 Review of Systems Narrative: Review of systems negative x7 aside from where indicated in HPI [facility] Medical History Arrhythmia, atrial (09/07/14) Depression (10/02/14) Diabetes mellitus type 2 in obese (09/09/14) GERD (gastroesophageal reflux disease) (09/07/14) Hypercholesterolemia (09/07/14) Hypothyroidism (acquired) (09/07/14) Schizoaffective disorder (09/07/14) Rebekah Mariscal [facility] 09/2014- [facility] inpatient Family History Father No problems noted. Other Heart disease Social History Smoking/Tobacco Use Status: Current every day Tobacco Type: cigarettes Smoking risk assessment performed?: Yes Alcohol Intake: never Drug use: Never Substance use type: does not use Do you feel safe at home: Yes Do you feel safe in your relationship?: Yes Additional Social history: Currently being treated for Pneumonia Course Vital Signs Vital signs: Vital Signs Temperature 36.5 C 12/26/20 19:17 Pulse 84 12/26/20 19:17 Respiratory Rate 12/26/20 19:17 Blood Pressure 169/89 H 12/26/20 19:17 Pulse Oximetry 96 12/26/20 19:17 Temperature 36.5 C 12/26/20 19:17 Temperature Source Skin 12/26/20 19:17 Pulse 84 12/26/20 19:17 Respiratory Rate 12/26/20 19:17 Respiratory Effort Non-Labored 12/26/20 19:25 Blood Pressure 169/89 H 12/26/20 19:17 Blood Pressure Position Supine 12/26/20 19:17 Pulse Oximetry 96 12/26/20 19:17 Oxygen Delivery Method Room Air 12/26/20 19:17 Oxygen Flow Rate 0 12/26/20 19:17 Pain Level 8 12/26/20 19:17
--- NOTE | 2020-12-26 20:23 | DI.RAD_ITS ---
EXAM: XR CHEST 2V PA LATERAL CLINICAL HISTORY: left chest pain. TECHNIQUE: 2D digital imaging was performed. COMPARISON: CR,XR XR PORTABLE CHEST AP from 12/22/2020 FINDINGS: Heart size is upper normal. The mediastinum is not widened. On the lateral view there is subtle suggestion of possible infiltrate in the posterior basal segment of what is probably left lower lobe. There are no pleural effusions. No pneumothorax. IMPRESSION: Subtle findings possible left lower lobe infiltrate. If clinically indicated follow-up CT scan can b e performed. DATA REPOSITORY: RADIATION DOSE DELIVERED:
[2020-12-26 20:30] LABS: ALT 38 U/L (16-63); AST 17 U/L (15-37); Albumin 3.2 g/dL (3.4-5.0); Alkaline Phosphatase 89 U/L (46-116); Anion Gap 8.4 mmol/L (3-11); BUN 10 mg/dL (7-18); Bilirubin, Total 0.2 mg/dL (0.2-1.0); CO2 27.6 mmol/L (21.0-32.0); Calcium 8.9 mg/dL (8.5-10.1); Chloride 100 mmol/L (98-107); Glucose 183 mg/dL (74-106); Lipase 59 U/L (73-393); Magnesium 1.7 mg/dL (1.8-2.4); Sodium 136 mmol/L (136-145); Total Protein 7.9 g/dL (6.4-8.2)
[2020-12-26 20:35] LABS: Troponin I < 0.05 ng/mL (<0.06)
--- NOTE | 2020-12-26 20:46 | DI.VRAD_ITS ---
PROCEDURE INFORMATION: Exam: XR Chest, 2 Views Exam date and time: 12/26/2020 8:22 PM Age: 55 years old Clinical indication: Chest pain TECHNIQUE: Imaging protocol: XR of the chest Views: 2 views. COMPARISON: CR XR PORTABLE CHEST AP 12/22/2020 2:25 AM FINDINGS: Lungs: Small left lower lobe infiltrate cannot be excluded. Pleural spaces: Unremarkable. No pleural effusion. No pneumothorax. Heart/Mediastinum: Unremarkable. No cardiomegaly. Bones/joints: Degenerative changes. IMPRESSION: Small left lower lobe infiltrate cannot be excluded. Dictated and Authenticated by: Sohan Ackerman MD. Ordering:TAWNYA Adkins MD
[2020-12-26 20:59] LABS: D-Dimer 466 ng/mlFEU (<500)
[2020-12-26] MEDS: Ondansetron O.D.T. 4 MG TABEF PO (21:07)
[2020-12-26 22:21] LABS: Troponin I < 0.05 ng/mL (<0.06)
== END 2020-12-26 22:35 | disposition home or self-care (01) ==
PROVIDERS: Physician Assistant; Emergency Provider Emergency Medicine; PCP Family Medicine
DX: R07.89 Other chest pain (principal); F17.210 Nicotine dependence, cigarettes, uncomplicated; I10 Essential (primary) hypertension; E11.9 Type 2 diabetes mellitus without complications; Z79.84 Long term (current) use of oral hypoglycemic drugs
CPT/HCPCS: 80053; 83690; 93005; 99284; 71046; 83735; 84484; 85025; 85379; 93010; 99281

== ENCOUNTER 2020-12-28 18:15 | Emergency (ER) | payer MEDICAID, SELFPAY ==
[2020-12-28] VITALS (9 sets, daily range): BP systolic 154–162; BP diastolic 89–107; PULSE 78–89; RESP 12–23; TEMP 36.3; O2SAT 91–97
--- NOTE | 2020-12-28 18:15 | RT.EKG_ITS ---
APPROVED REPORT Exam: Resting ECG Patient Location: E HR:82 bpm ECG Measurements Heart Rate 82 AXIS [place] 165 P 34 QRSd 107 QRS 33 QT 401 T 62 QTc 470 Conclusion Sinus rhythm...normal P axis, V-rate 60- 99 I have reviewed and interpreted ECG and agree with software generated interpretation.
--- NOTE | 2020-12-28 18:17 | W.ED.GENAD ---
Discharge Plan Disposition Patient Disposition: HOME Condition: Stable Discharge Details Clinical Impression: Disturbance of sleep, Anxiety Primary Care Provider: Brandon Foster ED Provider: Polian Gross Home Meds and New Rx's Prescriptions: Continued atenolol 50 MG tablet 1 tab PO DAILY Qty: 90 RF: 3 loratadine [Claritin Liqui-Gel] 10 MG capsule 1 cap PO DAILY Qty: 90 RF: 3 simvastatin 80 MG tablet 80 mg PO DAILY Qty: 90 RF: 3 acetaminophen [Tylenol] 325 MG tablet 1 tab PO PRN PRNRF: 0 albuterol sulfate [ProAir HFA] 200 PUFF HFA aerosol inhaler 1 inhaler Inhalation PRN PRNRF: 0 esomeprazole magnesium [Nexium] 20 mg Capsule,Delayed Release(Dr/Ec) 20 mg PO DAILY RF: 0 ondansetron HCl [Zofran] 4 mg tablet 4 mg PO Q8H Qty: 7 RF: 0 metformin 500 MG tablet 500 mg PO BID RF: 0 benztropine 0.5 MG tablet 0.5 mg PO BID RF: 0 aspirin,buffd-calcium carb-mag 325 MG tablet 325 mg PO DAILY RF: 0 fluoxetine 40 mg capsule 80 mg PO DAILY RF: 0 gabapentin 300 mg capsule 300 mg PO TID RF: 0 lorazepam 1 mg tablet 1 mg PO BID RF: 0 Risperdal Consta 25 mg/2 mL suspension,extended rel recon 25 mg IM USEASDIRECTD RF: 0 lactulose 10 gram/15 mL solution 20 g PO DIRECTED PRNRF: 0 albuterol sulfate 90 mcg/actuation aerosol powdr breath activated 2 inh IH Q6H PRN (Reason: shortness of breath or wheezing) Qty: 1 RF: 0 Discharge Instructions Instructions: Anxiety (ED) Additional Instructions: As we discussed, I would like for you to reach out to [facility] human services tomorrow to discuss counseling session for your anxiety. Please also discuss this further with your nurse practitioner at their office. I would also like for you to follow-up with your primary care. Please discuss your sleep disturbance further. There is a chance that this could be associated with obstructive sleep apnea and a sleep study may be of benefit. If you develop any new or worsening symptoms please seek care urgently once again. Referrals: Brandon Foster [Primary Care Provider] - Medical Decision Making Patient is a pleasant 55-year-old male presenting today, brought in via EMS, with chief complaint of waking suddenly. He reports that this evening he was going to sleep when he suddenly jolted awake. Describes jerking. States that the episode lasted less than 2 seconds. He denies any shortness of breath, chest pain. Has not had episode like this historically. Has never had a sleep study. Patient has been seen here multiple times recently. Was diagnosed with pneumonia and treated with doxycycline. His cough has subsided. He states that he is still taking the doxycycline as prescribed. On exam, patient appears nontoxic. He is noted to be obese. Lungs are clear, normal cardiac exam. Patient and I discussed differential diagnosis. In particular, we discussed sleep apnea. This most consistently goes along with the symptoms that the patient was having. He does not believe that the the diagnosis. His body habitus would increase his risk for this. I did advise that he should discuss this further with his primary care sleep study may be warranted. He and I discussed emergent pathology that may be the cause and at this time, his history is not consistent with [place], CVA, PE, neurovascular source. When he and I discussed these differentials, patient offered up that he is also been very anxious and is questioning of his anxiety it may be the driving source of his symptoms. Patient reports that he is seen by nurse practitioner monthly for his medications but does not have a counselor. He and I both feel that this would likely be of benefit. I did encourage him to reach out to his mental health provider to discuss counseling further. Also advised to discuss his anxiety further with his primary care provider. Return precautions were discussed. I did encourage he follow-up with his primary care to discuss potential need for sleep study. All his questions and concerns were addressed and he is in agreement this plan. HPI General Mode of arrival: EMS. Date/Time Provider Initiated Documentation: 12/28/20 18:16. Limitations to Documentation: no limitations. Information obtained by: patient, EMS, RN notes reviewed and old records reviewed. History of Present Illness 55 year old M presents to the emergency department with the chief complaint of jolted awake this evening, described as moderate, Quality is described as other (denies any pain), Patient started experiencing this minute(s) and it has been now resolved (unusual sensation described as a jerk last <2 seconds). No relieving factors improve symptom(s), No exacerbating factors reported . Patient notes no other symptoms.; denies chest pain, cough, fever/chills, headaches, loss of appetite, rash and shortness of breath. Patient did receive the following treatments prior to arrival, none Related Data Home Medications Medication Instructions Recorded Confirmed acetaminophen [Tylenol] 1 tab PO PRN PRN 08/20/14 12/26/20 albuterol sulfate [ProAir HFA] 1 inhaler INHALATION PRN PRN 08/20/14 12/26/20 atenolol 1 tab PO DAILY #90 tab 10/26/14 12/26/20 loratadine [Claritin Liqui-Gel] 1 cap PO DAILY #90 tab 12/16/14 12/26/20 simvastatin 80 mg PO DAILY #90 tab 12/21/14 12/26/20 aspirin,buffd-calcium carb-mag 325 mg PO DAILY 11/18/16 12/26/20 benztropine 0.5 mg PO BID 11/18/16 12/26/20 metformin 500 mg PO BID 11/18/16 12/26/20 Risperdal Consta 25 mg IM USEASDIRECTD 10/03/20 12/26/20 fluoxetine 80 mg PO DAILY 10/03/20 12/26/20 gabapentin 300 mg PO TID 10/03/20 12/26/20 lactulose 20 g PO DIRECTED PRN 10/03/20 12/26/20 lorazepam 1 mg PO BID 10/03/20 12/26/20 esomeprazole magnesium [Nexium] 20 mg PO DAILY 10/09/20 12/26/20 albuterol sulfate 2 inh IH Q6H PRN #1 each 12/15/20 ondansetron HCl [Zofran] 4 mg PO Q8H #7 tab 12/26/20 Previous Rx's Medication Instructions Recorded albuterol sulfate 2 inh IH Q6H PRN #1 each 12/15/20 ondansetron HCl [Zofran] 4 mg PO Q8H #7 tab 12/26/20 Allergies Allergy/AdvReac Type Severity Reaction Status Date / Time buspirone Allergy Unverified 12/26/20 19:28 paliperidone Allergy Unverified 12/26/20 19:28 paroxetine HCl [From Paxil] Allergy Unverified 12/26/20 19:28 sertraline Allergy Unverified 12/26/20 19:28 aripiprazole [From Abilify] AdvReac Intermediate INVOLUNTARY Unverified 12/26/20 19:28 MUSCLE MOVEMENTS divalproex sodium AdvReac Intermediate INVOLUNTARY Unverified 12/26/20 19:28 [From Depakote] MUSCLE MOVEMENTS mirtazapine AdvReac Intermediate INVOLUNTARY Unverified 12/26/20 19:28 MUSCLE MOVEMENTS risperidone AdvReac Intermediate INVOLUNTARY Unverified 12/26/20 19:28 MUSCLE MOVEMENTS benztropine mesylate AdvReac elevated Unverified 12/26/20 19:28 [From Cogentin] blood sugars enviornmental Allergy Mild Wheezing Uncoded 12/26/20 19:28 General CARLOS: 2 Review of Systems Constitutional Constitutional: Reports as per HPI, Denies chills, Denies fever(s) and Denies headache(s) Eyes Eyes: Denies change in vision ENT Ears, Nose, Mouth, and Throat: Denies headache(s) Cardiovascular Cardiovascular: Reports as per HPI, Denies chest pain, Denies irregular heart rhythm, Denies palpitations and Denies dyspnea Respiratory Respiratory: Reports as per HPI, Denies cough, Denies pain on inspiration and Denies dyspnea Gastrointestinal Gastrointestinal: Denies abdominal pain, Denies nausea and Denies vomiting Neurologic Neurologic: Denies headache(s) Endocrine Endocrine: Denies palpitations [facility] Medical History Arrhythmia, atrial (09/07/14) Depression (10/02/14) Diabetes mellitus type 2 in obese (09/09/14) GERD (gastroesophageal reflux disease) (09/07/14) Hypercholesterolemia (09/07/14) Hypothyroidism (acquired) (09/07/14) Schizoaffective disorder (09/07/14) Rebekah Mariscal [facility] Family History Father No problems noted. Other Heart disease Social History Smoking/Tobacco Use Status: Current every day Tobacco Type: cigarettes Smoking risk assessment performed?: Yes Alcohol Intake: never Drug use: Never Substance use type: does not use Do you feel safe at home: Yes Do you feel safe in your relationship?: Yes Additional Social history: Currently being treated for Pneumonia Exam Const General: cooperative, healthy appearing, comfortable, no acute distress and anxious Nutritional Appearance: well nourished and obese Orientation: alert and awake Resp Effort & Inspection: normal respiratory effort, able to speak in complete sentences and no respiratory distress Auscultation: clear to auscultation bilaterally Cardio Rate: regular rate Rhythm: regular rhythm Heart Sounds: S1 normal and S2 normal GI Inspection: normal to inspection and obesity Palpation: soft, no pulsatile masses and nontender Skin General skin exam: no rashes or lesions noted Neuro General: patient alert and patient awake Cognition: normal cognition Speech: speech normal Gait: normal gait Extrem General: normal to inspection, no calf tenderness and normal gait Psych Appearance: grossly normal and well kempt Mental Status: mental status grossly normal Speech and Movement: speech and movement normal
== END 2020-12-28 19:10 | disposition home or self-care (01) ==
PROVIDERS: Emergency Provider Physician Assistant; PCP Family Medicine
DX: F41.9 Anxiety disorder, unspecified (principal); G47.8 Other sleep disorders; R06.00 Dyspnea, unspecified; J18.9 Pneumonia, unspecified organism
CPT/HCPCS: 93005; 99284; 93010; 99283

== ENCOUNTER 2021-01-03 15:03 | Emergency (ER) | payer MEDICAID, SELFPAY ==
[2021-01-03 15:14] VITALS: BP 160/93; PULSE 76; RESP 16; TEMP 36.7; O2SAT 96
--- NOTE | 2021-01-03 15:24 | W.ED.GENAD ---
Discharge Plan Disposition Patient Disposition: HOME Condition: Improving Discharge Details Clinical Impression: Anxiety, Schizoaffective disorder Primary Care Provider: Brandon Foster ED Provider: Cortes Leonard Home Meds and New Rx's Prescriptions: Continued atenolol 50 MG tablet 1 tab PO DAILY Qty: 90 RF: 3 loratadine [Claritin Liqui-Gel] 10 MG capsule 1 cap PO DAILY Qty: 90 RF: 3 simvastatin 80 MG tablet 80 mg PO DAILY Qty: 90 RF: 3 acetaminophen [Tylenol] 325 MG tablet 1 tab PO PRN PRNRF: 0 albuterol sulfate [ProAir HFA] 200 PUFF HFA aerosol inhaler 1 inhaler Inhalation PRN PRNRF: 0 esomeprazole magnesium [Nexium] 20 mg Capsule,Delayed Release(Dr/Ec) 20 mg PO DAILY RF: 0 ondansetron HCl [Zofran] 4 mg tablet 4 mg PO Q8H Qty: 7 RF: 0 metformin 500 MG tablet 500 mg PO BID RF: 0 benztropine 0.5 MG tablet 0.5 mg PO BID RF: 0 aspirin,buffd-calcium carb-mag 325 MG tablet 325 mg PO DAILY RF: 0 fluoxetine 40 mg capsule 80 mg PO DAILY RF: 0 gabapentin 300 mg capsule 300 mg PO TID RF: 0 lorazepam 1 mg tablet 1 mg PO BID RF: 0 Risperdal Consta 25 mg/2 mL suspension,extended rel recon 25 mg IM USEASDIRECTD RF: 0 lactulose 10 gram/15 mL solution 20 g PO DIRECTED PRNRF: 0 albuterol sulfate 90 mcg/actuation aerosol powdr breath activated 2 inh IH Q6H PRN (Reason: shortness of breath or wheezing) Qty: 1 RF: 0 Discharge Instructions Instructions: Anxiety (ED) Additional Instructions: You underwent a medical work-up including laboratory analysis as well as interview with [facility] human services. They have arranged an outpatient plan for you. Please return at any time for reevaluation. Our care management team will arrange a follow-up for you with your regular doctor for recheck. Continue your regularly prescribed medication Medical Decision Making 55-year-old male states he was referred by his nurse outreach case manager for persistent anxiety over months time, for which he feels he requires admission, voluntarily. States to me that he is not in danger of hurting himself or others. States he has recently been well and taking his medications including Risperdal and Ativan 1 mg 3 times daily, which he states he feels is not working. He is slightly hypertensive but interactive, somewhat confrontational and oppositional in that he challenged my medical training. He is alert and oriented. I performed a medical screening examination including laboratory analysis was unremarkable. He is noted to have mild elevation of TSH, states that he has not been taking Synthroid in at least 2 years. Patient stable for further evaluation by mental health worker, who has a arranged an outpatient management plan. HPI General Mode of arrival: ambulatory. Date/Time Provider Initiated Documentation: 01/03/21 15:15. Limitations to Documentation: no limitations. Information obtained by: patient. History of Present Illness 55 year old M presents to the emergency department with the chief complaint of Anxiety, described as moderate, Quality is described as dull, and is localized to the head. Patient reports no radiation. Patient started experiencing this month(s) and it has been constant. No relieving factors improve symptom(s), No exacerbating factors reported . Patient notes no other symptoms.. Patient did receive the following treatments prior to arrival, none and other Related Data Home Medications Medication Instructions Recorded Confirmed acetaminophen [Tylenol] 1 tab PO PRN PRN 08/20/14 01/03/21 albuterol sulfate [ProAir HFA] 1 inhaler INHALATION PRN PRN 08/20/14 01/03/21 atenolol 1 tab PO DAILY #90 tab 10/26/14 01/03/21 loratadine [Claritin Liqui-Gel] 1 cap PO DAILY #90 tab 12/16/14 01/03/21 simvastatin 80 mg PO DAILY #90 tab 12/21/14 01/03/21 aspirin,buffd-calcium carb-mag 325 mg PO DAILY 11/18/16 01/03/21 benztropine 0.5 mg PO BID 11/18/16 01/03/21 metformin 500 mg PO BID 11/18/16 01/03/21 Risperdal Consta 25 mg IM USEASDIRECTD 10/03/20 01/03/21 fluoxetine 80 mg PO DAILY 10/03/20 01/03/21 gabapentin 300 mg PO TID 10/03/20 01/03/21 lactulose 20 g PO DIRECTED PRN 10/03/20 01/03/21 lorazepam 1 mg PO BID 10/03/20 01/03/21 esomeprazole magnesium [Nexium] 20 mg PO DAILY 10/09/20 01/03/21 albuterol sulfate 2 inh IH Q6H PRN #1 each 12/15/20 01/03/21 ondansetron HCl [Zofran] 4 mg PO Q8H #7 tab 12/26/20 Previous Rx's Medication Instructions Recorded albuterol sulfate 2 inh IH Q6H PRN #1 each 12/15/20 ondansetron HCl [Zofran] 4 mg PO Q8H #7 tab 12/26/20 Allergies Allergy/AdvReac Type Severity Reaction Status Date / Time buspirone Allergy Unverified 12/26/20 19:28 paliperidone Allergy Unverified 12/26/20 19:28 paroxetine HCl [From Paxil] Allergy Unverified 12/26/20 19:28 sertraline Allergy Unverified 12/26/20 19:28 aripiprazole [From Abilify] AdvReac Intermediate INVOLUNTARY Unverified 12/26/20 19:28 MUSCLE MOVEMENTS divalproex sodium AdvReac Intermediate INVOLUNTARY Unverified 12/26/20 19:28 [From Depakote] MUSCLE MOVEMENTS mirtazapine AdvReac Intermediate INVOLUNTARY Unverified 12/26/20 19:28 MUSCLE MOVEMENTS risperidone AdvReac Intermediate INVOLUNTARY Unverified 12/26/20 19:28 MUSCLE MOVEMENTS benztropine mesylate AdvReac elevated Unverified 12/26/20 19:28 [From Cogentin] blood sugars enviornmental Allergy Mild Wheezing Uncoded 12/26/20 19:28 General Stated Complaint: PsychEval CARLOS: 2 Review of Systems Narrative: 6 systems reviewed and otherwise negative [facility] Medical History Arrhythmia, atrial (09/07/14) Depression (10/02/14) Diabetes mellitus type 2 in obese (09/09/14) GERD (gastroesophageal reflux disease) (09/07/14) Hypercholesterolemia (09/07/14) Hypothyroidism (acquired) (09/07/14) Schizoaffective disorder (09/07/14) Rebekah Mariscal [facility] 09/2014- [facility] inpatient Family History Father No problems noted. Other Heart disease Social History Smoking/Tobacco Use Status: Current every day Tobacco Type: cigarettes Smoking risk assessment performed?: Yes Alcohol Intake: never Drug use: Never Substance use type: does not use Do you feel safe at home: No (anxiety) Do you feel safe in your relationship?: Yes Additional Social history: currently in a car bed Exam Narrative Exam Narrative: GEN: awake, alert, oriented 3. Pleasant, well groomed, interactive. HEAD: Normocephalic, atraumatic ENT: Mucous membranes moist, oropharynx unremarkable, External ear exam unremarkable EYES: PERRL, EOMI NECK: Full ROM, no REYNA, no menigismus CHEST/RESP: Nontender, clear to auscultation bilateral, no wheeze/rhonchi/rales CARDIOVASCULAR: RRR, no murmur, rub kassidy. 2+ Rad pulse bilateral ABDOMEN: Soft, nontender, no mass. +Bowel sounds EXT: Full ROM, no edema, no rash Neuro: Grossly normal neurologic exam, conversant, interactive. Psych: Speech fluent, thoughts congruent, affect flat Course Vital Signs Vital signs: Vital Signs Temperature 36.7 C 01/03/21 15:14 Pulse 76 01/03/21 15:14 Respiratory Rate 16 01/03/21 15:14 Blood Pressure 160/93 H 01/03/21 15:14 Pulse Oximetry 96 01/03/21 15:14 Temperature 36.7 C 01/03/21 15:14 Temperature Source Temporal Artery Scan 01/03/21 15:14 Pulse 76 01/03/21 15:14 Respiratory Rate 16 01/03/21 15:14 Respiratory Effort 01/03/21 15:22 Blood Pressure 160/93 H 01/03/21 15:14 Blood Pressure Position Sitting 01/03/21 15:14 Pulse Oximetry 96 01/03/21 15:14
--- NOTE | 2021-01-03 15:31 | CMSP_ITS ---
- If Service Date Differs Date of service: 01/03/21 Time of Service: 15:31 Care Management Safety Plan Status: Voluntary DISPOSITION: Avery is assessed by Siobhan [facility] Crisis Screener, and is found inappropriate for a voluntary psychiatric hospitalization. Avery is being discharged home and will follow up with his vocational case manager and psychiatrist. Chief Complaint: Avery is a 55 year old male who presents at [facility] due to severe anxiety. Avery has a long psychiatric history and receives services through [facility] JOB SETTER HONING Program. Per MD, Avery is denying suicidal or homicidal ideation. CM will respond to ED to assess patient after patient has been medically cleared and assessed by screener. If screener deems patient meets criteria for psychiatric stabilization CM will facilitate interdepartmental huddle with [facility] screener for safety planning considerations and meet with patient to review [facility] policy and safety plan, establish individual wishes for treatment and maintain patient rights. In the interim; please note safety plan below to guide patient care while a waiting further assessment in the ED. SAFETY PLAN: 1. Will remain on suicide precautions and in paper clothes. 2. Will remain in room under direct supervision of one-on-one staff at all times provided by [employer], COOPERATIVE EDUCATION DIRECTOR, DATA ENTRY OPERATOR senior asic engineer. 3. May have paper cups, plates, finger foods as well as a cardboard spoon with which to eat meals. 4. Follow [facility] Management of the Admitted Behavioral Health Patient policy. 5. Comfort bath system only. 6. No personal belongings 7. No visitors per [facility] Covid Policy. 8. Phone use at RN discretion. 9. Due to VOLUNTARY status, if patient wishes to leave [facility], staff will contact [facility] Crisis Screener ([phone]) and On-Call Cribbing Setter ([phone]) as soon as possible. In the event of elopement, notify [facility] Police ([phone]). If deemed appropriate for inpatient psychiatric care, safety plan will be established with patient, and care team, to adhere to patient goals, identify restrictions based on behavioral status, address nutrition, and determine allowed personal belongings, tools for hygiene and personal care. As well plan will determine level of activity including ambulation, level of supervision, visitors, and determine privileges based on level of acuity, behaviors and level of engagement by patient.
--- NOTE | 2021-01-03 15:31 | PDOC.CMSAFED ---
- If Service Date Differs Date of service: 01/03/21 Time of Service: 15:31 Care Management Safety Plan Status: Voluntary DISPOSITION: Avery is assessed by Siobhan [facility] Crisis Screener, and is found inappropriate for a voluntary psychiatric hospitalization. Avery is being discharged home and will follow up with his child support case officer and psychiatrist. Chief Complaint: Avery is a 55 year old male who presents at [facility] due to severe anxiety. Avery has a long psychiatric history and receives services through [facility] REGISTERED RESPIRATORY TECHNICIAN Program. Per MD, Avery is denying suicidal or homicidal ideation. CM will respond to ED to assess patient after patient has been medically cleared and assessed by screener. If screener deems patient meets criteria for psychiatric stabilization CM will facilitate interdepartmental huddle with [facility] screener for safety planning considerations and meet with patient to review [facility] policy and safety plan, establish individual wishes for treatment and maintain patient rights. In the interim; please note safety plan below to guide patient care while awaiting further assessment in the ED. SAFETY PLAN: 1. Will remain on suicide precautions and in paper clothes. 2. Will remain in room under direct supervision of one-on-one staff at all times provided by CPSO, BRAND MARKETING INTERN, MUSEUM ATTENDANT core extruder. 3. May have paper cups, plates, finger foods as well as a cardboard spoon with which to eat meals. 4. Follow [facility] Management of the Admitted Behavioral Health Patient policy. 5. Comfort bath system only. 6. No personal belongings 7. No visitors per [facility] Covid Policy. 8. Phone use at RN discretion. 9. Due to VOLUNTARY status, if patient wishes to leave [facility], staff will contact [facility] Crisis Screener ([phone]) and On-Call Electron Beam Machine Welder Setter ([phone]) as soon as possible. In the event of elopement, notify [facility] Police ([phone]). If deemed appropriate for inpatient psychiatric care, safety plan will be established with patient, and care team, to adhere to patient goals, identify restrictions based on behavioral status, address nutrition, and determine allowed personal belongings, tools for hygiene and personal care. As well plan will determine level of activity including ambulation, level of supervision, visitors, and determine privileges based on level of acuity, behaviors and level of engagement by patient.
[2021-01-03] MEDS: LORazepam 1 MG TAB PO (15:34)
--- NOTE | 2021-01-03 15:35 | NUR.NOTE ---
pt allowed nurse and sherrif to look at the contents of his two bags. one bag has clothes and a case of tic tacks . the other bag hasa all of his personal belongings in it including his medications , wallet and check books . it also has notebooks . ciggerets , operations superintendent .Nursing Note:
[2021-01-03 15:52] LABS: Abs Immature Grans 0.03 10^3/uL (0.0-0.06); Absolute Basophil Count 0.02 10^3/uL (0.0-0.2); Absolute Eosinophil Count 0.19 10^3/uL (0.0-0.7); Absolute Lymphocyte Count 1.77 10^3/uL (1.2-3.4); Absolute Monocyte Count 0.42 10^3/uL (0.1-0.8); Absolute Neutrophil Count 5.42 10^3/uL (1.2-6.7); Basophils % 0.3; Eosinophils % 2.4; HCT 37.2 % (40.0-50.0); HGB 12.5 g/dL (13.5-17.5); Immature Grans % 0.4; Lymphocytes % 22.5; MCH 29.9 pg (27.0-33.0); MCHC 33.6 % (32.0-36.0); MPV 8.4 fL (8.0-11.0); Monocytes % 5.4; Nucleated RBC 0 %; Platelet Count 196 10^3/uL (130-400); RBC 4.18 10^6/uL (4.36-5.78); RDW 12.4 % (11.8-14.1); RDW-SD 40.4 fL; WBC 7.85 10^3/uL (4.4-10.8)
[2021-01-03 16:11] LABS: ALT 43 U/L (16-63); AST 21 U/L (15-37); Albumin 3.4 g/dL (3.4-5.0); Alkaline Phosphatase 85 U/L (46-116); Anion Gap 6.8 mmol/L (3-11); BUN 12 mg/dL (7-18); Bilirubin, Total 0.3 mg/dL (0.2-1.0); CO2 28.2 mmol/L (21.0-32.0); CREATININE 0.9 mg/dL (0.70-1.30); Calcium 8.9 mg/dL (8.5-10.1); Chloride 99 mmol/L (98-107); Glucose 218 mg/dL (74-106); Potassium 4.3 mmol/L (3.5-5.1); Sodium 134 mmol/L (136-145); TSH 5.57 uIU/mL (0.36-3.74); Total Protein 8.1 g/dL (6.4-8.2)
[2021-01-03 16:13] LABS: Bilirubin Negative (Negative); Blood Negative (Negative); Clarity Clear (Clear); Glucose Negative (Negative); Ketones Negative (Negative); Leukocyte Esterase Negative (Negative); Nitrite Negative (Negative); Urobilinogen 0.2 EU/dL (Up TO 0.2); pH 6.5 (5-8)
[2021-01-03 16:18] LABS: Acetaminophen < 2 ug/mL (10-30); Salicylate 3.2 mg/dL (<2.8)
[2021-01-03 16:21] LABS: *AMPHETAMINES SCREEN URINE Negative (Negative); *BARBITURATES SCREEN URINE Negative (Negative); *BENZODIAZEPINES SCREEN URINE Negative (Negative); Cannabinoids THC Negative (Negative); Cocaine Screen,Urine Negative (Negative); METHADONE URINE SCREEN Negative (Negative); OPIATES URINE SCREEN Negative (Negative)
[2021-01-03 16:22] LABS: Tricyclic Antidepressants Negative (Negative)
[2021-01-03 16:23] LABS: ETHANOL BLOOD < 3.0 mg/dL (<3)
--- NOTE | 2021-01-03 17:34 | PDOC.MHPN2 ---
Date of service: 01/03/21 Time of Service: 17:34 Mental Health Progress Note Progress Note Progress Note: Presenting Issue: Client presented to the ED for symptoms of anxiety, upon the recommendation of his case finishing machine adjuster with [facility], and is requesting a medication review, as he feels his Ativan is not effective. Precipitating Factors Client spoke with his case finishing machine adjuster earlier, advising he was experiencing chest pain, shortness of breath, and anxiety. Disposition * Behavior: Client is cooperative and pleasant *Eye Contact: Good *Mood: pleasant *Affect: congruent *Appetite: did not assess *Sleep(troubel falling/staying asleep): Client reports poor sleep because of his anxiety Plan(please elaborate and include that physician is consulted with plan and/or placement): Client will be discharged home. This chief writer contacted his case finishing machine adjuster and his prescribing physician to advise them of client's request for med review. Clinician's Name , Title, and Signature Siobhan RICH Clinician Make sure that you are photocopying and submitting this to [facility] records Dept. to be scanned into chart.
[2021-01-03 17:44] VITALS: BP 127/73; PULSE 75; RESP 16; O2SAT 95
== END 2021-01-03 17:48 | disposition home or self-care (01) ==
PROVIDERS: Emergency Provider Emergency Medicine; PCP Family Medicine
DX: F41.8 Other specified anxiety disorders (principal); F25.8 Other schizoaffective disorders
CPT/HCPCS: 36415; 80053; 80307; 99283; 80320; 80329; 81003; 84443; 85025

== ENCOUNTER 2021-01-08 05:13 | Emergency (ER) | payer MEDICAID, SELFPAY ==
[2021-01-08] VITALS (37 sets, daily range): BP systolic 128–158; BP diastolic 72–97; PULSE 68–91; RESP 17–24; TEMP 36.6; O2SAT 93–98
--- NOTE | 2021-01-08 05:15 | RT.EKG_ITS ---
APPROVED REPORT Exam: Resting ECG Patient Location: E HR:87 bpm ECG Measurements Heart Rate 87 AXIS ID [id number] P 37 QRSd 108 QRS 27 QT 393 T 57 QTc 474 Conclusion Sinus rhythm...normal P axis, V-rate 60- 99 There are no significant changes compared to prior EKG performed on 12/28/2020 at 18:24.
--- NOTE | 2021-01-08 05:23 | W.ED.GENAD ---
Discharge Plan Disposition Patient Disposition: HOME Condition: Improving Discharge Details Clinical Impression: GERD (gastroesophageal reflux disease), Chest fullness, Chest pain, Anxiety Primary Care Provider: Brandon Foster ED Provider: Cortes Leonard Home Meds and New Rx's Prescriptions: Continued atenolol 50 MG tablet 1 tab PO DAILY Qty: 90 RF: 3 loratadine [Claritin Liqui-Gel] 10 MG capsule 1 cap PO DAILY Qty: 90 RF: 3 simvastatin 80 MG tablet 80 mg PO DAILY Qty: 90 RF: 3 acetaminophen [Tylenol] 325 MG tablet 1 tab PO PRN PRNRF: 0 esomeprazole magnesium [Nexium] 20 mg Capsule,Delayed Release(Dr/Ec) 20 mg PO DAILY RF: 0 metformin 500 MG tablet 500 mg PO BID RF: 0 benztropine 0.5 MG tablet 0.5 mg PO BID RF: 0 aspirin,buffd-calcium carb-mag 325 MG tablet 325 mg PO DAILY RF: 0 fluoxetine 40 mg capsule 80 mg PO DAILY RF: 0 gabapentin 300 mg capsule 300 mg PO TID RF: 0 lorazepam 1 mg tablet 1 mg PO TID RF: 0 Risperdal Consta 25 mg/2 mL suspension,extended rel recon 25 mg IM USEASDIRECTD RF: 0 lactulose 10 gram/15 mL solution 20 g PO DIRECTED PRNRF: 0 albuterol sulfate 90 mcg/actuation aerosol powdr breath activated 2 inh IH Q6H PRN (Reason: shortness of breath or wheezing) Qty: 1 RF: 0 Discharge Instructions Instructions: Chest Pain (ED), GERD (Gastroesophageal Reflux Disease) (ED), Anxiety (ED) Additional Instructions: Please follow-up with Dr. Zambrano by phone this week for recheck. Continue your regular medications. I recommend you observe a bland diet. Return to emergency room for any acute concerns. Medical Decision Making <Dariel Matthews MD - Last Filed: 01/08/21 07:29> Patient presenting with complaint of chest pressure in the left side with some shortness of breath with onset at 3 AM. Similar presentations in the past. [place] to most likely be related to anxiety. EKG on arrival is unchanged from previous. Exam is unremarkable. Little hypertensive which is typical for this patient. Will obtain delta troponin and repeat EKG. We will give him his morning Ativan while here. Patient remains unchanged. First troponin negative. Second troponin and EKG to be done at 8:45 AM. Patient signed out to oncoming physician to check labs and disposition. Medical Records Medical records reviewed: Yes I reviewed the patient's medical records. Lab Data Lab results reviewed: Yes I reviewed the patient's lab results. ECG Data Attestation: I personally reviewed and interpreted this ECG (s) as follows: Prior ECG tracings: available for review Interpretation: see EKG <Cortes Leonard MD - Last Filed: 01/08/21 10:48> Received signout from Dr. Matthews. Patient remained stable, his repeat EKG was unremarkable and both troponins were negative. He was given a GI cocktail, ambulated to bathroom, and had some improvement. The patient sees Dr Zambrano for his psychiatric care and recently had his anxiolytics increased. He may have a component of anxiety. He will also notes some increased stress. No thoughts of harming himself or others. HPI <Dariel Matthews MD - Last Filed: 01/08/21 07:29> General Mode of arrival: EMS. Date/Time Provider Initiated Documentation: 01/08/21 05:18. Limitations to Documentation: no limitations. Information obtained by: patient, RN notes reviewed and old records reviewed. HPI Narrative: Patient presents to ED with complaint of left chest pressure and some shortness of breath that started around 3 AM this morning. He was not sleeping but was up listening to music. He has been here a number of times for similar complaint. There is no associated lightheadedness, diaphoresis, nausea. There is no radiation of the pain at this time. He did take his medications yesterday. He has not taken any Ativan this morning. Symptoms have felt to be related to anxiety. He is now being followed by [facility] as well as his primary care. He is in no distress and has no new or different complaints compared to when I have seen him previously. He denies SI or HI. Related Data Home Medications Medication Instructions Recorded Confirmed acetaminophen [Tylenol] 1 tab PO PRN PRN 08/20/14 01/08/21 atenolol 1 tab PO DAILY #90 tab 10/26/14 01/08/21 loratadine [Claritin Liqui-Gel] 1 cap PO DAILY #90 tab 12/16/14 01/08/21 simvastatin 80 mg PO DAILY #90 tab 12/21/14 01/08/21 aspirin,buffd-calcium carb-mag 325 mg PO DAILY 11/18/16 01/08/21 benztropine 0.5 mg PO BID 11/18/16 01/08/21 metformin 500 mg PO BID 11/18/16 01/08/21 Risperdal Consta 25 mg IM USEASDIRECTD 10/03/20 01/08/21 fluoxetine 80 mg PO DAILY 10/03/20 01/08/21 gabapentin 300 mg PO TID 10/03/20 01/08/21 lactulose 20 g PO DIRECTED PRN 10/03/20 01/08/21 lorazepam 1 mg PO TID 10/03/20 01/08/21 esomeprazole magnesium [Nexium] 20 mg PO DAILY 10/09/20 01/08/21 albuterol sulfate 2 inh IH Q6H PRN #1 each 12/15/20 01/08/21 Previous Rx's Medication Instructions Recorded albuterol sulfate 2 inh IH Q6H PRN #1 each 12/15/20 Allergies Allergy/AdvReac Type Severity Reaction Status Date / Time buspirone Allergy Unverified 01/08/21 05:41 paliperidone Allergy Unverified 01/08/21 05:41 paroxetine HCl [From Paxil] Allergy Unverified 01/08/21 05:41 sertraline Allergy Unverified 01/08/21 05:41 aripiprazole [From Abilify] AdvReac Intermediate INVOLUNTARY Unverified 01/08/21 05:41 MUSCLE MOVEMENTS divalproex sodium AdvReac Intermediate INVOLUNTARY Unverified 01/08/21 05:41 [From Depakote] MUSCLE MOVEMENTS mirtazapine AdvReac Intermediate INVOLUNTARY Unverified 01/08/21 05:41 MUSCLE MOVEMENTS risperidone AdvReac Intermediate INVOLUNTARY Unverified 01/08/21 05:41 MUSCLE MOVEMENTS benztropine mesylate AdvReac elevated Unverified 01/08/21 05:41 [From Cogentin] blood sugars enviornmental Allergy Mild Wheezing Uncoded 01/08/21 05:41 General CARLOS: 2 Review of Systems <Dariel Matthews MD - Last Filed: 01/08/21 07:29> Narrative: As documented in HPI otherwise negative as below. Const: no fever, chills, weakness Resp: no pleuritic pain CV: no diaphoresis, edema, syncope GI: no abdominal pain, nausea, vomiting, diarrhea Neuro: no headache, numbness, focal weakness, confusion PFSH <Dariel Matthews MD - Last Filed: 01/08/21 07:29> Medical History (Updated 01/08/21 @ 09:51 by Cortes Leonard MD) Arrhythmia, atrial (09/07/14) Depression (10/02/14) Diabetes mellitus type 2 in obese (09/09/14) GERD (gastroesophageal reflux disease) (09/07/14) Hypercholesterolemia (09/07/14) Hypothyroidism (acquired) (09/07/14) Schizoaffective disorder (09/07/14) Rebekah Mariscal [facility] 09/2014- [facility] [place] inpatient Surgical History No significant past surgical history Family History Father No problems noted. Other Heart disease Social History Smoking/Tobacco Use Status: Current every day Tobacco Type: cigarettes Smoking risk assessment performed?: Yes Alcohol Intake: never Drug use: Never Substance use type: does not use Do you feel safe at home: Yes (anxiety) Do you feel safe in your relationship?: Yes Additional Social history: currently in a car bed Exam <Dariel Matthews MD - Last Filed: 01/08/21 07:29> Narrative Exam Narrative: Const: Tall obese male in NAD. HEENT: NC/AT. Normal facial exam. Eyes: Normal conjunctiva and sclera. Neck: Supple. Trachea midline. Lungs: Normal respiratory effort. Lungs with occasional scattered wheeze but no decreased breath sounds, rhonchi or rales. Cor: RRR without murmur/gallop. Good radial pulses. GI: Soft. NT/ND. Neuro: A+O x 3. Normal speech, mentation, gait. Cranial nerves II - XII grossly intact. No gross motor or sensory deficit. Ext: No C/C/E. No calf tenderness. Psych: Flat affect. Normal speech and thought content. No SI/HI. Sign Out <Dariel Matthews MD - Last Filed: 01/08/21 07:29> Sign Out Data: Sign Out Comment: pending 2nd trop and EKG Last updated by Dariel Matthews MD at 01/08/21 08:11
[2021-01-08] MEDS: LORazepam 1 MG TAB PO (06:01)
[2021-01-08 06:13] LABS: Troponin I < 0.05 ng/mL (<0.06)
--- NOTE | 2021-01-08 07:15 | RT.EKG_ITS ---
APPROVED REPORT Exam: Resting ECG Patient Location: E HR:78 bpm ECG Measurements Heart Rate 78 AXIS [place] 182 P 29 QRSd 111 QRS 38 QT 408 T 47 QTc 467 Conclusion Sinus rhythm...normal P axis, V-rate 60- 99
[2021-01-08] MEDS: Atenolol 25 MG TAB (08:30)
[2021-01-08] MEDS: LORazepam 1 MG TAB (08:31)
--- NOTE | 2021-01-08 09:02 | NUR.NOTE ---
has eaten breakfast, has requested his atenolol 50mg and ativan 1mg which were given.Nursing Note:
[2021-01-08 09:19] LABS: Troponin I < 0.05 ng/mL (<0.06)
== END 2021-01-08 10:46 | disposition home or self-care (01) ==
PROVIDERS: Emergency Medicine; Emergency Provider Emergency Medicine; PCP Family Medicine
DX: K21.9 Gastro-esophageal reflux disease without esophagitis (principal); R07.89 Other chest pain; F41.9 Anxiety disorder, unspecified; R06.02 Shortness of breath
CPT/HCPCS: 36415; 93005; 99284; 84484; 93010

== ENCOUNTER 2021-01-26 20:44 | Emergency (ER) | payer MEDICAID, SELFPAY ==
[2021-01-26] VITALS (24 sets, daily range): BP systolic 117–150; BP diastolic 51–74; PULSE 84–110; RESP 16–24; TEMP 36.8; O2SAT 94–97
--- NOTE | 2021-01-26 20:30 | RT.EKG_ITS ---
APPROVED REPORT Exam: Resting ECG Patient Location: E HR:98 bpm ECG Measurements Heart Rate 98 AXIS OR 213 P 42 QRSd 92 QRS 37 QT 389 T 30 QTc 497 Conclusion Sinus rhythm. Prolonged OR interval. Low voltage, precordial leads
--- NOTE | 2021-01-26 21:00 | DI.RAD_ITS ---
EXAM: XR PORTABLE CHEST AP CLINICAL HISTORY: L chest discomfort. TECHNIQUE: 2D digital imaging was performed. COMPARISON: CR,XR XR CHEST 2V PA LATERAL from 12/26/2020 FINDINGS: Heart size is upper normal. The mediastinum is not widened. Lungs are clear. No infiltrates nor obvious pleural effusions. IMPRESSION: No acute pulmonary findings on this single AP portable view of the chest.No significant change from 0 12/26/2020. DATA REPOSITORY: RADIATION DOSE DELIVERED: All CT scans at this facility use at least one of these dose optimization techniques: automated exposure control; mA and/or kV adjustment per patient size (includes targeted e xams where dose is matched to clinical indication); or iterative reconstruction.
--- NOTE | 2021-01-26 21:03 | W.ED.GENAD ---
Discharge Plan Disposition Patient Disposition: HOME Condition: Stable Discharge Details Clinical Impression: Left-sided chest wall pain Primary Care Provider: Brandon Foster ED Provider: Doc Ramos Home Meds and New Rx's Prescriptions: Continued atenolol 50 MG tablet 1 tab PO DAILY Qty: 90 RF: 3 loratadine [Claritin Liqui-Gel] 10 MG capsule 1 cap PO DAILY Qty: 90 RF: 3 simvastatin 80 MG tablet 80 mg PO DAILY Qty: 90 RF: 3 acetaminophen [Tylenol] 325 MG tablet 1 tab PO PRN PRNRF: 0 esomeprazole magnesium [Nexium] 20 mg Capsule,Delayed Release(Dr/Ec) 20 mg PO DAILY RF: 0 multivitamin Tablet 1 tab PO DAILY RF: 0 vitamin A 10,000 unit Capsule 10,000 unit PO DAILY RF: 0 metformin 500 MG tablet 500 mg PO BID RF: 0 benztropine 0.5 MG tablet 0.5 mg PO BID RF: 0 aspirin,buffd-calcium carb-mag 325 MG tablet 325 mg PO DAILY RF: 0 fluoxetine 40 mg capsule 80 mg PO DAILY RF: 0 gabapentin 300 mg capsule 300 mg PO TID RF: 0 lorazepam 1 mg tablet 1 mg PO QID RF: 0 Risperdal Consta 25 mg/2 mL suspension,extended rel recon 25 mg IM USEASDIRECTD RF: 0 lactulose 10 gram/15 mL solution 20 g PO DIRECTED PRNRF: 0 albuterol sulfate 90 mcg/actuation aerosol powdr breath activated 2 inh IH Q6H PRN (Reason: shortness of breath or wheezing) Qty: 1 RF: 0 Discharge Instructions Instructions: Chest Wall Pain (ED) Additional Instructions: follow up with your primary care provider within a week if you feel more ill, worsening pain or difficulty breathing return to the emergency department Medical Decision Making <Cortes Leonard MD - Last Filed: 01/26/21 22:25> 55-year-old male presents via EMS stating he has had 90 minutes of left axilla/lateral chest wall pain. Became anxious, and and called 911. He refused IV, aspirin or nitroglycerin on route, states he took 2 Tylenol at home. He arrives afebrile, interactive, in no acute distress. He has mild reproducible left chest wall tenderness on exam. He is noted to have a history of schizo affective disorder and anxiety. Differential diagnosis includes chest wall strain, myalgia, anxiety, must exclude dehydration, electrolyte abnormality, or IA. Patient is placed in a pvc monitor, screening labs obtained and he is referred for chest x-ray. Chest x-ray no acute findings. Labs note mild hypomagnesemia which is supplemented in the emergency department. Initial troponin negative. Patient improving, will remain on pvc monitor with repeat troponin obtained. Will sign out to Dr. Ramos pending repeat troponin and reevaluation. Lab Data Lab results reviewed: Yes I reviewed the patient's lab results. Labs: Laboratory Results - last 24 hr 01/26/21 01/26/21 21:15 21:15 WBC 8.14 RBC 4.07 L Hgb 12.1 L Hct 36.1 L MCV 88.7 MCH 29.7 MCHC 33.5 RDW 12.5 Plt Count 181 MPV 8.2 Immature Gran % 0.4 Neutrophils % 73.1 Lymphocytes % 17.0 Monocytes % 6.4 Eosinophils % 2.9 Basophils % 0.2 Nucleated RBC % 0 Absolute Neutrophils 5.95 Absolute Lymphocytes 1.38 Absolute Monocytes 0.52 Absolute Eosinophils 0.24 Absolute Basophils 0.02 Sodium 135 L Potassium 3.8 Chloride 97 L Carbon Dioxide 28.4 Anion Gap 9.6 BUN 9 Creatinine 0.9 Estimated GFR/1.73 m2 >= 60.00 Glucose 223 H Calcium 8.7 Magnesium 1.6 L Total Bilirubin 0.4 AST 23 ALT 41 Alkaline Phosphatase 90 Troponin I < 0.05 Total Protein 7.6 Albumin 3.2 L <Doc Ramos MD - Last Filed: 01/27/21 00:36> pt's second ekg and troponin unchanged, ambulated to the bathroom unassisted with no pain and now feels well without symptoms and is comfortable with plan for d/c and f/u with his pcp, return precautions given Medical Records Medical records reviewed: Yes I reviewed the patient's medical records. Lab Data Lab results reviewed: Yes I reviewed the patient's lab results. ECG Data Attestation: I personally reviewed and interpreted this ECG (s) as follows: Prior ECG tracings: available for review Interpretation: sinus rhythm, rate of 86, pr 181, qtc 473, no acute st t wave ischemic findings compared to first ekg HPI <Cortes Leonard MD - Last Filed: 01/26/21 22:25> General Mode of arrival: EMS. Date/Time Provider Initiated Documentation: 01/26/21 20:49. Limitations to Documentation: no limitations. Information obtained by: patient and EMS. History of Present Illness 55 year old M presents to the emergency department with the chief complaint of 90 minutes of left axilla pain, described as moderate, and is localized to the left. Patient reports no radiation. Patient started experiencing this hour(s) and it has been constant. No relieving factors improve symptom(s), No exacerbating factors reported . Patient notes denies cough, fever/chills, nausea/vomiting and shortness of breath. Patient did receive the following treatments prior to arrival, none Related Data Home Medications Medication Instructions Recorded Confirmed acetaminophen [Tylenol] 1 tab PO PRN PRN 08/20/14 01/26/21 atenolol 1 tab PO DAILY #90 tab 10/26/14 01/26/21 loratadine [Claritin Liqui-Gel] 1 cap PO DAILY #90 tab 12/16/14 01/26/21 simvastatin 80 mg PO DAILY #90 tab 12/21/14 01/26/21 aspirin,buffd-calcium carb-mag 325 mg PO DAILY 11/18/16 01/26/21 benztropine 0.5 mg PO BID 11/18/16 01/26/21 metformin 500 mg PO BID 11/18/16 01/26/21 Risperdal Consta 25 mg IM USEASDIRECTD 10/03/20 01/26/21 fluoxetine 80 mg PO DAILY 10/03/20 01/26/21 gabapentin 300 mg PO TID 10/03/20 01/26/21 lactulose 20 g PO DIRECTED PRN 10/03/20 01/26/21 lorazepam 1 mg PO QID 10/03/20 01/26/21 esomeprazole magnesium [Nexium] 20 mg PO DAILY 10/09/20 01/26/21 albuterol sulfate 2 inh IH Q6H PRN #1 each 12/15/20 01/26/21 multivitamin 1 tab PO DAILY 01/26/21 01/26/21 vitamin A 10,000 unit PO DAILY 01/26/21 01/26/21 Previous Rx's Medication Instructions Recorded albuterol sulfate 2 inh IH Q6H PRN #1 each 12/15/20 Allergies Allergy/AdvReac Type Severity Reaction Status Date / Time buspirone Allergy Unverified 01/26/21 20:52 paliperidone Allergy Unverified 01/26/21 20:52 paroxetine HCl [From Paxil] Allergy Unverified 01/26/21 20:52 sertraline Allergy Unverified 01/26/21 20:52 aripiprazole [From Abilify] AdvReac Intermediate INVOLUNTARY Unverified 01/26/21 20:52 MUSCLE MOVEMENTS divalproex sodium AdvReac Intermediate INVOLUNTARY Unverified 01/26/21 20:52 [From Depakote] MUSCLE MOVEMENTS mirtazapine AdvReac Intermediate INVOLUNTARY Unverified 01/26/21 20:52 MUSCLE MOVEMENTS risperidone AdvReac Intermediate INVOLUNTARY Unverified 01/26/21 20:52 MUSCLE MOVEMENTS benztropine mesylate AdvReac elevated Unverified 01/08/21 05:41 [From Cogentin] blood sugars enviornmental Allergy Mild Wheezing Uncoded 01/26/21 20:52 General Stated Complaint: Chest Pain CARLOS: 2 Review of Systems <Cortes Leonard MD - Last Filed: 01/26/21 22:25> Narrative: No fever or chills, no cough. No leg pain or swelling that is new. Underwent/received 1st Covid vaccination. 8 systems reviewed and otherwise negative. PFS <Cortes Leonard MD - Last Filed: 01/26/21 22:25> Medical History Arrhythmia, atrial (09/07/14) Depression (10/02/14) Diabetes mellitus type 2 in obese (09/09/14) GERD (gastroesophageal reflux disease) (09/07/14) Hypercholesterolemia (09/07/14) Hypothyroidism (acquired) (09/07/14) Schizoaffective disorder (09/07/14) Rebekah Mariscal [facility] 09/2014- [facility] inpatient Surgical History No significant past surgical history Family History Father No problems noted. Other Heart disease Social History Smoking/Tobacco Use Status: Current every day Tobacco Type: cigarettes and pipe Smoking risk assessment performed?: Yes Alcohol Intake: never Drug use: Never Substance use type: does not use Do you feel safe at home: Yes (anxiety) Do you feel safe in your relationship?: Yes Additional Social history: currently in a car bed Exam <Cortes Leonard MD - Last Filed: 01/26/21 22:25> Narrative Exam Narrative: GEN: Obese, awake, alert, oriented 3. Pleasant, well groomed, interactive. HEAD: Normocephalic, atraumatic ENT: Mucous membranes moist, oropharynx unremarkable, External ear exam unremarkable EYES: PERRL, EOMI NECK: Full ROM, no REYNA, no menigismus CHEST/RESP: Minimal chest wall discomfort left axilla/lateral chest wall, clear to auscultation bilateral, no wheeze/rhonchi/rales CARDIOVASCULAR: RRR, no murmur, rub kassidy. 2+ Rad pulse bilateral ABDOMEN: Soft, nontender, no mass. +Bowel sounds EXT: Full ROM, no edema, no rash Neuro: Grossly normal neurologic exam, conversant, interactive. Psych: Speech fluent, thoughts congruent, affect normal Course <Cortes Leonard MD - Last Filed: 01/26/21 22:25> Vital Signs Vital signs: Vital Signs Temperature 36.8 C 01/26/21 20:45 Pulse 96 H 01/26/21 20:45 Respiratory Rate 18 01/26/21 20:45 Pulse Oximetry 97 01/26/21 20:45 Temperature 36.8 C 01/26/21 20:45 Temperature Source Skin 01/26/21 20:45 Pulse 96 H 01/26/21 20:45 Respiratory Rate 18 01/26/21 20:57 Respiratory Effort Incrsd Work of Breathing 01/26/21 20:57 Respiratory Depth Normal 01/26/21 20:57 Respiratory Pattern Normal 01/26/21 20:57 Blood Pressure Position Sitting 01/26/21 20:45 Pulse Oximetry 97 01/26/21 20:45 Oxygen Delivery Method Room Air 01/26/21 20:45 Oxygen Flow Rate 0 01/26/21 20:45 Pain Level 0 01/26/21 20:57 Comment 01/26/21 20:45 Sign Out <Cortes Leonard MD - Last Filed: 01/26/21 22:25> Sign Out Data: Sign Out Comment: followup repeat troponin Last updated by Cortes Leonard MD at 01/26/21 22:25
[2021-01-26 21:22] LABS: Abs Immature Grans 0.03 10^3/uL (0.0-0.06); Absolute Basophil Count 0.02 10^3/uL (0.0-0.2); Absolute Eosinophil Count 0.24 10^3/uL (0.0-0.7); Absolute Lymphocyte Count 1.38 10^3/uL (1.2-3.4); Absolute Monocyte Count 0.52 10^3/uL (0.1-0.8); Absolute Neutrophil Count 5.95 10^3/uL (1.2-6.7); Basophils % 0.2; Eosinophils % 2.9; HCT 36.1 % (40.0-50.0); HGB 12.1 g/dL (13.5-17.5); Immature Grans % 0.4; MCH 29.7 pg (27.0-33.0); MCHC 33.5 % (32.0-36.0); MCV 88.7 fL (80-95); MPV 8.2 fL (8.0-11.0); Monocytes % 6.4; Neutrophils % 73.1; Nucleated RBC 0 %; Platelet Count 181 10^3/uL (130-400); RBC 4.07 10^6/uL (4.36-5.78); RDW 12.5 % (11.8-14.1); RDW-SD 40.2 fL; WBC 8.14 10^3/uL (4.4-10.8)
[2021-01-26 21:41] LABS: ALT 41 U/L (16-63); AST 23 U/L (15-37); Albumin 3.2 g/dL (3.4-5.0); Alkaline Phosphatase 90 U/L (46-116); Anion Gap 9.6 mmol/L (3-11); BUN 9 mg/dL (7-18); Bilirubin, Total 0.4 mg/dL (0.2-1.0); CO2 28.4 mmol/L (21.0-32.0); CREATININE 0.9 mg/dL (0.70-1.30); Calcium 8.7 mg/dL (8.5-10.1); Chloride 97 mmol/L (98-107); Glucose 223 mg/dL (74-106); Magnesium 1.6 mg/dL (1.8-2.4); Potassium 3.8 mmol/L (3.5-5.1); Sodium 135 mmol/L (136-145); Total Protein 7.6 g/dL (6.4-8.2)
--- NOTE | 2021-01-26 21:42 | DI.VRAD_ITS ---
PROCEDURE INFORMATION: Exam: XR Chest Exam date and time: 01/26/2021 9:15 PM Age: 55 years old Clinical indication: Other: L chest discomfort TECHNIQUE: Imaging protocol: XR of the chest Views: 1 view. COMPARISON: CR XR CHEST 2V PA LATERAL 12/26/2020 8:11 PM FINDINGS: Lungs: Unremarkable. No consolidation. Pleural spaces: Unremarkable. No pleural effusion. No pneumothorax. Heart/Mediastinum: Unremarkable. No cardiomegaly. Bones/joints: Unremarkable. IMPRESSION: No acute findings. Dictated and Authenticated by: Marco A Singh MD. Ordering:CHRIS Kolb MD
[2021-01-26 21:54] LABS: Troponin I < 0.05 ng/mL (<0.06)
[2021-01-26] MEDS: Magnesium Oxide 400 MG TAB 800 MG PO (22:06)
[2021-01-27] VITALS: PULSE 82; RESP 22; O2SAT 96
--- NOTE | 2021-01-27 | RT.EKG_ITS ---
APPROVED REPORT Exam: Resting ECG Patient Location: E HR:86 bpm ECG Measurements Heart Rate 86 AXIS [place] 181 P 25 QRSd 98 QRS 30 QT 395 T 43 QTc 473 Conclusion Sinus rhythm...normal P axis, V-rate 60- 99 Low voltage, precordial leads...precordial leads <1.0mV
[2021-01-27 00:10] VITALS: PULSE 86; RESP 21; O2SAT 96
[2021-01-27 00:20] VITALS: PULSE 82; RESP 17; O2SAT 96
[2021-01-27 00:30] VITALS: PULSE 82; RESP 19; O2SAT 95
[2021-01-27 00:30] LABS: Troponin I < 0.05 ng/mL (<0.06)
== END 2021-01-27 00:58 | disposition home or self-care (01) ==
PROVIDERS: Emergency Medicine; Emergency Provider Emergency Medicine; PCP Family Medicine
DX: R07.81 Pleurodynia (principal); E83.42 Hypomagnesemia
CPT/HCPCS: 36415; 80053; 93005; 99284; 71045; 83735; 84484; 85025; 93010

== ENCOUNTER 2021-02-11 11:34 | Emergency (ER) | payer MEDICAID, SELFPAY ==
[2021-02-11] VITALS (39 sets, daily range): BP systolic 127–156; BP diastolic 63–81; PULSE 63–89; RESP 16–28; TEMP 36.7; O2SAT 92–99
--- NOTE | 2021-02-11 11:30 | RT.EKG_ITS ---
APPROVED REPORT Exam: Resting ECG Patient Location: E HR:77 bpm ECG Measurements Heart Rate 77 AXIS W[place] 179 P 40 QRSd 96 QRS 40 QT 389 T 65 QTc 442 Conclusion Sinus rhythm...normal P axis, V-rate 60- 99 Physician: No STEMI
--- NOTE | 2021-02-11 12:00 | DI.RAD_ITS ---
EXAM: XR CHEST 2V PA LATERAL CLINICAL HISTORY: Chest Pain TECHNIQUE: 2D digital imaging was performed. COMPARISON: CR,XR XR CHEST 2V PA LATERAL from 12/26/2020 FINDINGS: MEDIASTINUM: Normal. HEART: Normal. PULMONARY VASCULATURE: Normal. LUNGS: Clear. PLEURAL SPACE: No pleural effusion or pneumothorax. BONE:Within normal limits for the patient's age. OTHER FINDINGS:Normal. IMPRESSION: No acute pulmonary findings. DATA REPOSITORY: RADIATION DOSE DELIVERED:
--- NOTE | 2021-02-11 12:01 | W.ED.GENAD ---
Discharge Plan Disposition Patient Disposition: HOME Condition: Stable Discharge Details Clinical Impression: Chest pain Primary Care Provider: Brandon Foster ED Provider: Fang Eubanks Home Meds and New Rx's Prescriptions: Continued atenolol 50 MG tablet 1 tab PO DAILY Qty: 90 RF: 3 simvastatin 80 MG tablet 80 mg PO DAILY Qty: 90 RF: 3 acetaminophen [Tylenol] 325 MG tablet 1 tab PO PRN PRNRF: 0 esomeprazole magnesium [Nexium] 20 mg Capsule,Delayed Release(Dr/Ec) 20 mg PO DAILY RF: 0 metformin 500 MG tablet 500 mg PO BID RF: 0 benztropine 0.5 MG tablet 0.5 mg PO BID RF: 0 aspirin,buffd-calcium carb-mag 325 MG tablet 325 mg PO DAILY RF: 0 fluoxetine 40 mg capsule 80 mg PO DAILY RF: 0 gabapentin 300 mg capsule 300 mg PO TID RF: 0 lorazepam 1 mg tablet 1 mg PO QID RF: 0 albuterol sulfate 90 mcg/actuation aerosol powdr breath activated 2 inh IH Q6H PRN (Reason: shortness of breath or wheezing) Qty: 1 RF: 0 No Action loratadine [Claritin Liqui-Gel] 10 MG capsule 1 cap PO DAILY Qty: 90 RF: 3 multivitamin Tablet 1 tab PO DAILY RF: 0 vitamin A 10,000 unit Capsule 10,000 unit PO DAILY RF: 0 Risperdal Consta 25 mg/2 mL suspension,extended rel recon 25 mg IM USEASDIRECTD RF: 0 lactulose 10 gram/15 mL solution 20 g PO DIRECTED PRNRF: 0 Discharge Instructions Instructions: Chest Pain (ED) Additional Instructions: Your cardiac work-up today was within normal limits. Follow up with primary care provider in 3-5 days. Return to ED sooner if any worsening chest pain, shortness of breath, or concerns. Increase oral fluids. Continue taking aspirin daily. Referrals: Brandon Foster [Primary Care Provider] - Discharge Data Discharge Date/Time-TO BE ENTERED AT DEPARTURE: 02/11/21 16:20 Medical Decision Making 55-year-old male presents the ER chief complaint of midsternal chest pain fullness which radiates underneath his left arm which began this morning. He rates his pain 7 out of 10. He denies any nausea vomiting diarrhea, does endorse some mild shortness of breath denies any productive cough or fever. He also reports bilateral eye pain. He does have a past medical history of mitral valve prolapse, hypothyroidism, schizoaffective disorder, GERD, high cholesterol, type 2 diabetes. 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 Pupils are PERRLA. EOMs intact. At this time cardiac work-up included CBC, CMP serial troponins, chest x-ray, PT/INR, nitro 0.4 mg sublingual x3 as needed pain. Patient did take 325 mg aspirin prior to arrival this morning. EKG was reviewed by Dr. Myrtle SIMS ER attending, please see his official report. No significant ST elevation, no STEMI. 1210: Patient is refusing sublingual nitroglycerin per staff scientist he states that it does not work for me and I do not do well on it. CBC is largely unchanged from previous results. Sodium is 133, glucose 182, magnesium is 1.6 BUN and creatinine are within normal limits GFR is greater than 60, albumin 3.3. Initial troponin is within normal limits less than 0.05. Chest x-ray is within normal limits no evidence of pulmonary abnormality. Will replace magnesium orally 400 mg magnesium oxide ordered at this time. 1324: Patient is sleeping upon entering into the room breathing is eupneic. On the monitor vital signs are stable. Patient is refusing the magnesium at this time states I do not think I tolerate that he does however request some Ativan. I did discuss that side effects from magnesium are relatively low and given an oral form. He is still declining this medication at this time. His repeat troponin is pending at approximately 1500. 1553: Awaiting repeat Troponin at this time. Repeat troponin is within normal limits discussed results with patient who verbalizes understanding I did agree indurate the need for magnesium supplement patient still does not wish to take magnesium while here in department. I did encourage him to discuss this with his primary care provider or take an [id number] multivitamin with magnesium included. Discussed strict return instructions, verbalized understanding. Patient was hemodynamically stable prior to discharge and ambulatory in department. This text was generated using [employer] system, please disregard any oddities of phrase or misspellings. HPI General Mode of arrival: ambulatory. Date/Time Provider Initiated Documentation: 02/11/21 11:45. Limitations to Documentation: no limitations. Information obtained by: patient. HPI Narrative: 55-year-old male presents the ER chief complaint of midsternal chest pain fullness which radiates underneath his left arm which began this morning. He rates his pain 7 out of 10. He denies any nausea vomiting diarrhea, does endorse some mild shortness of breath denies any productive cough or fever. He also reports bilateral eye pain. He does have a past medical history of mitral valve prolapse, hypothyroidism, schizoaffective disorder, GERD, high cholesterol, type 2 diabetes. 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 Pupils are PERRLA. EOMs intact. Related Data Home Medications Medication Instructions Recorded Confirmed acetaminophen [Tylenol] 1 tab PO PRN PRN 08/20/14 02/11/21 atenolol 1 tab PO DAILY #90 tab 10/26/14 02/11/21 loratadine [Claritin Liqui-Gel] 1 cap PO DAILY #90 tab 12/16/14 02/11/21 simvastatin 80 mg PO DAILY #90 tab 12/21/14 02/11/21 aspirin,buffd-calcium carb-mag 325 mg PO DAILY 11/18/16 02/11/21 benztropine 0.5 mg PO BID 11/18/16 02/11/21 metformin 500 mg PO BID 11/18/16 02/11/21 Risperdal Consta 25 mg IM USEASDIRECTD 10/03/20 02/11/21 fluoxetine 80 mg PO DAILY 10/03/20 02/11/21 gabapentin 300 mg PO TID 10/03/20 02/11/21 lactulose 20 g PO DIRECTED PRN 10/03/20 02/11/21 lorazepam 1 mg PO QID 10/03/20 02/11/21 esomeprazole magnesium [Nexium] 20 mg PO DAILY 10/09/20 02/11/21 albuterol sulfate 2 inh IH Q6H PRN #1 each 12/15/20 02/11/21 multivitamin 1 tab PO DAILY 01/26/21 02/11/21 vitamin A 10,000 unit PO DAILY 01/26/21 02/11/21 Previous Rx's Medication Instructions Recorded albuterol sulfate 2 inh IH Q6H PRN #1 each 12/15/20 Allergies Allergy/AdvReac Type Severity Reaction Status Date / Time buspirone Allergy Unverified 02/11/21 11:50 paliperidone Allergy Unverified 02/11/21 11:50 paroxetine HCl [From Paxil] Allergy Unverified 02/11/21 11:50 sertraline Allergy Unverified 02/11/21 11:50 ziprasidone [From Geodon] Allergy Other (See Unverified 02/11/21 11:50 Comment) aripiprazole [From Abilify] AdvReac Intermediate INVOLUNTARY Unverified 02/11/21 11:50 MUSCLE MOVEMENTS divalproex sodium AdvReac Intermediate INVOLUNTARY Unverified 02/11/21 11:50 [From Depakote] MUSCLE MOVEMENTS mirtazapine AdvReac Intermediate INVOLUNTARY Unverified 02/11/21 11:50 MUSCLE MOVEMENTS risperidone AdvReac Intermediate INVOLUNTARY Unverified 02/11/21 11:50 MUSCLE MOVEMENTS benztropine mesylate AdvReac elevated Unverified 02/11/21 11:50 [From Cogentin] blood sugars enviornmental Allergy Mild Wheezing Uncoded 02/11/21 11:50 General Stated Complaint: Chest Pain CARLOS: 2 Review of Systems Narrative: Constitutional: Negative for weight loss, alert and oriented, well groomed, morbidly obese body habitus, appears comfortable. HEENT: Denies trauma, headaches, nasal discharge, sore throat, trouble swallowing. Patient denies blurry vision or diplopia but does report eye pain bilaterally. Chest: Denies palpitations, irregular rhythm, positive midsternal chest fullness reports this radiates around into his left arm and the left armpit. Respiratory: Denies Shortness of breath, hemoptysis. He does smoke tobacco and has a chronic cough. GI: Denies abdominal pain, nausea, vomiting, diarrhea, constipation. : Denies dysuria, hematuria, flank pain, rectal bleeding. Neuro: Denies dizziness, weakness, syncope, or facial numbness. Hematologic: Denies easy bruising, intolerance to heat or cold, hair loss. [facility] Medical History Arrhythmia, atrial (09/07/14) Dental caries Depression (10/02/14) Diabetes mellitus type 2 in obese (09/09/14) GERD (gastroesophageal reflux disease) (09/07/14) Hypercholesterolemia (09/07/14) Hyperlipidemia Hypertension Hypothyroidism (acquired) (09/07/14) Peripheral neuropathy Schizoaffective disorder (09/07/14) Rebekah Mariscal [facility] 09/2014- [facility] inpatient Surgical History No significant past surgical history Family History Father No problems noted. Other Heart disease Social History Smoking/Tobacco Use Status: Current every day Tobacco Type: cigarettes and pipe Smoking risk assessment performed?: Yes Alcohol Intake: never Drug use: Never Substance use type: does not use Do you feel safe at home: Yes (anxiety) Do you feel safe in your relationship?: Yes Additional Social history: currently in a car bed Exam Narrative Exam Narrative: Constitutional: Alert and oriented x3. Appears stated age. Obese body habitus. Head: Normocephalic, no trauma. Eyes: Pupils PERRLA, Red reflex noted, EOM's intact. Eyelids symmetrical without lesions, discharge, or swelling. ENT: Bilateral TM's WNL, External ear normal to inspection, no mastoid TTP, swelling, or erythema, Nasal turbinates WNL, no nasal discharge. Normal dentition, Posterior pharynx WNL, no exudate. Chest: RRR, Normal S1, S2, distal pulses intact. Resp: Lungs clear to auscultation bilaterally, no wheezes, rales, or rhonchi. Musculoskeletal: Normal gait, 5/5 strength to all four extremities. Skin: No suspicious rashes or lesions. Capillary refill less than 2 sec. Neurologic: Cranial nerves II-XII intact. Alert and oriented x 3. DTR's intact. 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 No focal neuro deficits noted. Hematologic/Lymphatic: No ecchymosis, no lymphadenopathy. Course Vital Signs Vital signs: Vital Signs Temperature 36.7 C 02/11/21 11:46 Pulse 78 02/11/21 11:46 Respiratory Rate 23 02/11/21 11:46 Blood Pressure 156/71 H 02/11/21 11:46 Pulse Oximetry 96 02/11/21 11:46 Temperature 36.7 C 02/11/21 11:46 Temperature Source Temporal Artery Scan 02/11/21 11:46 Pulse 78 02/11/21 11:46 Respiratory Rate 23 02/11/21 11:46 Blood Pressure 156/71 H 02/11/21 11:46 Blood Pressure Position Sitting 02/11/21 11:46 Pulse Oximetry 96 02/11/21 11:46 Oxygen Delivery Method Room Air 02/11/21 11:46 Oxygen Flow Rate 0 02/11/21 11:46 Pain Level 7 02/11/21 11:46
[2021-02-11 12:11] LABS: Abs Immature Grans 0.03 10^3/uL (0.0-0.06); Absolute Basophil Count 0.01 10^3/uL (0.0-0.2); Absolute Eosinophil Count 0.25 10^3/uL (0.0-0.7); Absolute Lymphocyte Count 1.59 10^3/uL (1.2-3.4); Absolute Monocyte Count 0.65 10^3/uL (0.1-0.8); Absolute Neutrophil Count 5.69 10^3/uL (1.2-6.7); Basophils % 0.1; HCT 36.2 % (40.0-50.0); HGB 12.1 g/dL (13.5-17.5); Immature Grans % 0.4; Lymphocytes % 19.3; MCH 29.7 pg (27.0-33.0); MCHC 33.4 % (32.0-36.0); MCV 88.7 fL (80-95); MPV 8.3 fL (8.0-11.0); Monocytes % 7.9; Neutrophils % 69.3; Nucleated RBC 0 %; Platelet Count 208 10^3/uL (130-400); RBC 4.08 10^6/uL (4.36-5.78); RDW 12.3 % (11.8-14.1); RDW-SD 40.8 fL; WBC 8.22 10^3/uL (4.4-10.8)
[2021-02-11 12:25] LABS: Prothrombin Time 10.2 sec (9.3-11.0)
[2021-02-11 13:04] LABS: ALT 43 U/L (16-63); AST 22 U/L (15-37); Albumin 3.3 g/dL (3.4-5.0); Alkaline Phosphatase 85 U/L (46-116); Anion Gap 6.4 mmol/L (3-11); BUN 15 mg/dL (7-18); Bilirubin, Total 0.3 mg/dL (0.2-1.0); CO2 28.6 mmol/L (21.0-32.0); CREATININE 0.9 mg/dL (0.70-1.30); Calcium 9.3 mg/dL (8.5-10.1); Chloride 98 mmol/L (98-107); Glucose 182 mg/dL (74-106); Magnesium 1.6 mg/dL (1.8-2.4); Potassium 4.3 mmol/L (3.5-5.1); Sodium 133 mmol/L (136-145); Total Protein 7.8 g/dL (6.4-8.2); Troponin I < 0.05 ng/mL (<0.06)
--- NOTE | 2021-02-11 15:00 | RT.EKG_ITS ---
APPROVED REPORT Exam: Resting ECG Patient Location: E HR:76 bpm ECG Measurements Heart Rate 76 AXIS KS 171 P 8 QRSd 96 QRS 37 QT 402 T 64 QTc 454 Conclusion Sinus rhythm...normal P axis, V-rate 60- 99 I have reviewed and interpreted ECG and agree with software generated interpretation.
[2021-02-11 16:01] LABS: Troponin I < 0.05 ng/mL (<0.06)
== END 2021-02-11 16:20 | disposition home or self-care (01) ==
PROVIDERS: Emergency Provider Registered Nurse Emergency; PCP Family Medicine
DX: R07.89 Other chest pain (principal)
CPT/HCPCS: 80053; 93005; 99284; 71046; 83735; 84484; 85025; 85610; 93010; 99283

== ENCOUNTER 2021-03-09 09:41 | Emergency (ER) | payer MEDICAID, SELFPAY ==
[2021-03-09] VITALS (41 sets, daily range): BP systolic 120–176; BP diastolic 44–119; PULSE 63–123; RESP 13–25; TEMP 36.6–36.9; O2SAT 18–97
--- NOTE | 2021-03-09 09:30 | RT.EKG_ITS ---
APPROVED REPORT Exam: Resting ECG Reason for Exam: chest pain Patient Location: E HR:86 bpm ECG Measurements Heart Rate 86 AXIS NE 178 P 42 QRSd 108 QRS 36 QT 387 T 50 QTc 463 Conclusion Sinus rhythm...normal P axis, V-rate 60- 99
[2021-03-09] MEDS: Normal Saline Flush 10 ML SYR IVP (09:40)
--- NOTE | 2021-03-09 09:45 | ED.GENADUL_ITS ---
Discharge Plan Disposition Patient Disposition: HOME Condition: Stable Discharge Details Clinical Impression: Chest pain Primary Care Provider: Brandon Foster ED Provider: Fang Eubanks Home Meds and New Rx's Prescriptions: Continued atenolol 50 MG tablet 1 tab PO DAILY Qty: 90 RF: 3 loratadine [Claritin Liqui-Gel] 10 MG capsule 1 cap PO DAILY Qty: 90 RF: 3 simvastatin 80 MG tablet 80 mg PO DAILY Qty: 90 RF: 3 acetaminophen [Tylenol] 325 MG tablet 1 tab PO PRN PRNRF: 0 esomeprazole magnesium [Nexium] 20 mg Capsule,Delayed Release(Dr/Ec) 20 mg PO DAILY RF: 0 multivitamin Tablet 1 tab PO DAILY RF: 0 vitamin A 10,000 unit Capsule 10,000 unit PO DAILY RF: 0 metformin 500 MG tablet 500 mg PO BID RF: 0 benztropine 0.5 MG tablet 0.5 mg PO BID RF: 0 aspirin,buffd-calcium carb-mag 325 MG tablet 325 mg PO DAILY RF: 0 fluoxetine 40 mg capsule 80 mg PO DAILY RF: 0 gabapentin 300 mg capsule 300 mg PO TID RF: 0 lorazepam 1 mg tablet 1 mg PO QID RF: 0 Risperdal Consta 25 mg/2 mL suspension,extended rel recon 25 mg IM USEASDIRECTD RF: 0 lactulose 10 gram/15 mL solution 20 g PO DIRECTED PRNRF: 0 albuterol sulfate 90 mcg/actuation aerosol powdr breath activated 2 inh IH Q6H PRN (Reason: shortness of breath or wheezing) Qty: 1 RF: 0 Discharge Instructions Instructions: Chest Pain (ED) Additional Instructions: Continue taking prescribed medications as directed. I will put in a referral for a treadmill stress test to be completed as an outpatient. Follow up with primary care provider in 3-5 days. Return to ED sooner if any worsening or concerns. Increase oral fluids. Referrals: Brandon Foster [Primary Care Provider] - Brandon Richard MD [ CONSULTING PHYSICIAN] - Medical Decision Making 56-year-old male presents to the ER via EMS with chief complaint of left-sided chest pain which began approximately 5 AM this morning reports intermittent in nature radiates into his left axillary region denies any shortness of breath nausea vomiting diarrhea no cough no fever. He does have a past medical history of type 2 diabetes, depression, GERD, hyper cholesterolemia, hypothyroidism, schizoaffective disorder, atrial arrhythmia. Did report that he took his normal a.m. medications did not take aspirin this morning. He did state that he took 2 Tylenol. 09 55: EKG was reviewed by Dr. Cortes Leonard MD ER attending, please see his official read and report. Normal sinus rhythm no ST elevation or depression. At this time CBC, CMP, serial troponins, magnesium ordered. 25 mg chewable baby aspirin was ordered. CBC is largely at patient's baseline hemoglobin 12.8 hematocrit 38.5 sodium 133 chloride 96, glucose 249 Calcium 9.1, Magnesium 1.6 Outpatient stress test ordered, discussed results with patient and plan for follow-up, verbalized understanding. Initial and serial troponin within normal limits. Chest x-ray remains unchanged. Patient has no more complaints of chest pain prior to discharge. HPI General Mode of arrival: EMS . Date/Time Provider Initiated Documentation: 03/09/21 09:45 . Limitations to Documentation: no limitations . Information obtained by: patient, EMS, RN notes reviewed and old records reviewed . HPI Narrative: 56-year-old male presents to the ER via EMS with chief complaint of left-sided chest pain which began approximately 5 AM this morning reports intermittent in nature radiates into his left axillary region denies any shortness of breath nausea vomiting diarrhea no cough no fever. He does have a past medical history of type 2 diabetes, depression, GERD, hyper cholesterolemia, hypothyroidism, schizoaffective disorder, atrial arrhythmia. Did report that he took his normal a.m. medications did not take aspirin this morning. He did state that he took 2 Tylenol. Related Data Home Medications Medication Instructions Recorded Confirmed acetaminophen [Tylenol] 1 tab PO PRN PRN 08/20/14 03/09/21 atenolol 1 tab PO DAILY #90 tab 10/26/14 03/09/21 loratadine [Claritin Liqui-Gel] 1 cap PO DAILY #90 tab 12/16/14 03/09/21 simvastatin 80 mg PO DAILY #90 tab 12/21/14 03/09/21 aspirin,buffd-calcium carb-mag 325 mg PO DAILY 11/18/16 03/09/21 benztropine 0.5 mg PO BID 11/18/16 03/09/21 metformin 500 mg PO BID 11/18/16 03/09/21 Risperdal Consta 25 mg IM USEASDIRECTD 10/03/20 03/09/21 fluoxetine 80 mg PO DAILY 10/03/20 03/09/21 gabapentin 300 mg PO TID 10/03/20 03/09/21 lactulose 20 g PO DIRECTED PRN 10/03/20 03/09/21 lorazepam 1 mg PO QID 10/03/20 03/09/21 esomeprazole magnesium [Nexium] 20 mg PO DAILY 10/09/20 03/09/21 albuterol sulfate 2 inh IH Q6H PRN #1 each 12/15/20 03/09/21 multivitamin 1 tab PO DAILY 01/26/21 03/09/21 vitamin A 10,000 unit PO DAILY 01/26/21 03/09/21 Previous Rx's Medication Instructions Recorded albuterol sulfate 2 inh IH Q6H PRN #1 each 12/15/20 Allergies Allergy/AdvReac Type Severity Reaction Status Date / Time buspirone Allergy Unverified 03/09/21 10:12 paliperidone Allergy Unverified 03/09/21 10:12 paroxetine HCl [From Paxil] Allergy Unverified 03/09/21 10:12 sertraline Allergy Unverified 03/09/21 10:12 ziprasidone [From Geodon] Allergy Other (See Unverified 03/09/21 10:12 Comment) aripiprazole [From Abilify] AdvReac Intermediate INVOLUNTARY Unverified 03/09/21 10:12 MUSCLE MOVEMENTS divalproex sodium AdvReac Intermediate INVOLUNTARY Unverified 03/09/21 10:12 [From Depakote] MUSCLE MOVEMENTS mirtazapine AdvReac Intermediate INVOLUNTARY Unverified 03/09/21 10:12 MUSCLE MOVEMENTS risperidone AdvReac Intermediate INVOLUNTARY Unverified 03/09/21 10:12 MUSCLE MOVEMENTS benztropine mesylate AdvReac elevated Unverified 03/09/21 10:12 [From Cogentin] blood sugars enviornmental Allergy Mild Wheezing Uncoded 03/09/21 10:12 General CARLOS: 2 Review of Systems Narrative: Constitutional: Negative for weight loss, alert and oriented, disheveled, obese body habitus, appears comfortable. HEENT: Denies trauma, headaches, blurry vision, nasal discharge, sore throat, tr ouble swallowing. Chest: Denies palpitations, irregular rhythm, positive left-sided chest pain. Respiratory: Denies Shortness of breath, cough, hemoptysis. GI: Denies abdominal pain, nausea, vomiting, diarrhea, constipation. : Denies dysuria, hematuria, flank pain, rectal bleeding. Neuro: Denies dizziness, blurry vision, weakness, syncope, headache or facial numbness. Hematologic: Denies easy bruising, intolerance to heat or cold, hair loss. [facility] Medical History Arrhythmia, atrial (09/07/14) Dental caries Depression (10/02/14) Diabetes mellitus type 2 in obese (09/09/14) GERD (gastroesophageal reflux disease) (09/07/14) Hypercholesterolemia (09/07/14) Hyperlipidemia Hypertension Hypothyroidism (acquired) (09/07/14) Peripheral neuropathy Schizoaffective disorder (09/07/14) Rebekah Mariscal [facility] 09/2014- [facility] inpatient Surgical History No significant past surgical history Family History Father No problems noted. Other Heart disease Social History Smoking/Tobacco Use Status: Current every day Tobacco Type: cigarettes and pipe Smoking risk assessment performed?: Yes Alcohol Intake: never Drug use: Never Substance use type: does not use Do you feel safe at home: Yes (anxiety) Do you feel safe in your relationship?: Yes Exam Narrative Exam Narrative: Constitutional: Alert and oriented x3. Appears stated age. Normal body habitus. Head: Normocephalic, no trauma. Eyes: Pupils PERRLA, Red reflex noted, EOM's intact. Eyelids symmetrical without lesions, discharge, or swelling. ENT: Bilateral TM's WNL, External ear normal to inspection, no mastoid TTP, swelling, or erythema, Nasal turbinates WNL, no nasal discharge. Normal dentition, Posterior pharynx WNL, no exudate. Chest: RRR, Normal S1, S2, distal pulses intact. Chest pain reproducible with palpation. Resp: Lungs clear to auscultation bilaterally, no wheezes, rales, or rhonchi. Musculoskeletal: Normal gait, 5/5 strength to all four extremities. Skin: No suspicious rashes or lesions. Capillary refill less than 2 sec. Neurologic: Cranial nerves II-XII intact. Alert and oriented x 3. DTR's intact. Hematologic/Lymphatic: No ecchymosis, no lymphadenopathy.
[2021-03-09 09:55] LABS: Abs Immature Grans 0.03 10^3/uL (0.0-0.06); Absolute Basophil Count 0.03 10^3/uL (0.0-0.2); Absolute Eosinophil Count 0.27 10^3/uL (0.0-0.7); Absolute Lymphocyte Count 2.41 10^3/uL (1.2-3.4); Absolute Monocyte Count 0.59 10^3/uL (0.1-0.8); Absolute Neutrophil Count 5.77 10^3/uL (1.2-6.7); Basophils % 0.3; HCT 38.5 % (40.0-50.0); HGB 12.8 g/dL (13.5-17.5); Immature Grans % 0.3; Lymphocytes % 26.5; MCH 29.5 pg (27.0-33.0); MCHC 33.2 % (32.0-36.0); MCV 88.7 fL (80-95); MPV 8.2 fL (8.0-11.0); Monocytes % 6.5; Neutrophils % 63.4; Nucleated RBC 0 %; Platelet Count 179 10^3/uL (130-400); RBC 4.34 10^6/uL (4.36-5.78); RDW 12.3 % (11.8-14.1); RDW-SD 40.4 fL
[2021-03-09] MEDS: Aspirin 81 MG CHEW 324 MG CH (10:01)
--- NOTE | 2021-03-09 10:18 | NUR.NOTE ---
med list verified with [facility] Nursing Note:
[2021-03-09 10:29] LABS: ALT 43 U/L (16-63); AST 21 U/L (15-37); Albumin 3.6 g/dL (3.4-5.0); Alkaline Phosphatase 87 U/L (46-116); Anion Gap 7.5 mmol/L (3-11); BUN 15 mg/dL (7-18); Bilirubin, Total 0.3 mg/dL (0.2-1.0); CO2 29.5 mmol/L (21.0-32.0); CREATININE 0.9 mg/dL (0.70-1.30); Calcium 9.1 mg/dL (8.5-10.1); Chloride 96 mmol/L (98-107); Glucose 249 mg/dL (74-106); Magnesium 1.6 mg/dL (1.8-2.4); Potassium 4.2 mmol/L (3.5-5.1); Sodium 133 mmol/L (136-145); Total Protein 8.2 g/dL (6.4-8.2)
[2021-03-09 10:33] LABS: Troponin I < 0.05 ng/mL (<0.06)
[2021-03-09] MEDS: Albuterol HFA 8 GM 60 PUFF INH IH (10:45)
[2021-03-09] MEDS: Inhaler, Assist Device 1 EACH MC (10:45)
--- NOTE | 2021-03-09 11:10 | DI.RAD_ITS ---
Exam(s) XR CHEST 2V PA LATERAL EXAM: XR CHEST 2V PA LATERAL CLINICAL HISTORY: Left side chest pain TECHNIQUE: 2D digital imaging was performed. COMPARISON: CR XR CHEST 2V PA LATERAL from 02/11/2021 FINDINGS: MEDIASTINUM: Normal. HEART: Normal. PULMONARY VASCULATURE: Normal. LUNGS: Clear. PLEURAL SPACE: No pleural effusion or pneumothorax. BONE:Within normal limits for the patient's age. OTHER FINDINGS:Normal. IMPRESSION: No acute pulmonary findings. DATA REPOSITORY: RADIATION DOSE DELIVERED:
[2021-03-09 13:02] LABS: Troponin I < 0.05 ng/mL (<0.06)
[2021-03-09 14:10] LABS: Source Nasal/Nares
--- NOTE | 2021-03-09 15:10 | NUR.NOTE ---
Nursing Note: Order for outpatient stress test faxed to [facility]. Instructions given to patient. Seelna Gutierrez
[2021-03-09 21:26] LABS: COVID-19 PCR Negative (Negative)
== END 2021-03-09 14:40 | disposition home or self-care (01) ==
PROVIDERS: Emergency Provider Registered Nurse Emergency; PCP Family Medicine
DX: R07.89 Other chest pain (principal); Z03.818 Encounter for observation for suspected exposure to other biological agents ruled out
CPT/HCPCS: 36415; 80053; 87635; 93005; 99285; 71046; 83735; 84484; 85025; 93010; 99284

== ENCOUNTER 2021-04-03 07:59 | Emergency (ER) | payer MEDICAID, SELFPAY ==
[2021-04-03] VITALS (38 sets, daily range): BP systolic 149–184; BP diastolic 82–128; PULSE 61–84; RESP 12–23; TEMP 36.7; O2SAT 96–100
--- NOTE | 2021-04-03 08:00 | RT.EKG_ITS ---
APPROVED REPORT Exam: Resting ECG Reason for Exam: chest pain Patient Location: E HR:82 bpm ECG Measurements Heart Rate 82 AXIS MT 184 P 45 QRSd 102 QRS 34 QT 398 T 82 QTc 465 Conclusion Sinus rhythm...normal P axis, V-rate 60- 99 I have reviewed and interpreted ECG and agree with software generated interpretation.
--- NOTE | 2021-04-03 08:02 | ED.GENADUL_ITS ---
Discharge Plan Disposition Patient Disposition: HOME Condition: Stable Discharge Details Clinical Impression: Left-sided chest wall pain Primary Care Provider: Brandon Foster ED Provider: Polina Gross Home Meds and New Rx's Prescriptions: Continued atenolol 50 MG tablet 1 tab PO DAILY Qty: 90 RF: 3 loratadine [Claritin Liqui-Gel] 10 MG capsule 1 cap PO DAILY Qty: 90 RF: 3 simvastatin 80 MG tablet 80 mg PO DAILY Qty: 90 RF: 3 acetaminophen [Tylenol] 325 MG tablet 1 tab PO PRN PRNRF: 0 esomeprazole magnesium [Nexium] 20 mg Capsule,Delayed Release(Dr/Ec) 20 mg PO DAILY RF: 0 multivitamin Tablet 1 tab PO DAILY RF: 0 vitamin A 10,000 unit Capsule 10,000 unit PO DAILY RF: 0 metformin 500 MG tablet 500 mg PO BID RF: 0 benztropine 0.5 MG tablet 0.5 mg PO BID RF: 0 aspirin,buffd-calcium carb-mag 325 MG tablet 325 mg PO DAILY RF: 0 fluoxetine 40 mg capsule 80 mg PO DAILY RF: 0 gabapentin 300 mg capsule 300 mg PO TID RF: 0 lorazepam 1 mg tablet 1 mg PO QID RF: 0 Risperdal Consta 25 mg/2 mL suspension,extended rel recon 25 mg IM USEASDIRECTD RF: 0 lactulose 10 gram/15 mL solution 20 g PO DIRECTED PRNRF: 0 albuterol sulfate 90 mcg/actuation aerosol powdr breath activated 2 inh IH Q6H PRN (Reason: shortness of breath or wheezing) Qty: 1 RF: 0 Discharge Instructions Instructions: Low-Sodium Diet (ED), Chest Wall Pain (ED) Additional Instructions: Imaging and labs are reassuring today. However, I would like you to have outpatient echo and stress test. Referral for this has been sent to [place] where you typically receives your care. If you develop increased shortness of breath, difficulty breathing, recurrent chest pain or other new/worsening symptom please seek care urgently once again. Otherwise, please follow-up with primary care in 1 week for reevaluation Referrals: Brandon Foster [Primary Care Provider] - Medical Decision Making Patient is a 56-year-old male presenting today with chief complaint of chest pain and shortness of breath. Patient is brought in via EMS. Reports the pain began approximately 15 minutes prior to arrival. Maximal, pain with rated a 7 out of 10. Pain came on while he was watching TV. Patient has been seen here multiple times for similar discomfort historically. Patient was referred for outpatient stress testing and this has not been performed as of yet. Cardiac history of mitral valve prolapse which is being medically managed. He denies any familial history of cardiac disease. Patient denies any exertional symptoms although he does report that he is typically immobile. He reports that he does not have chronic shortness of breath but feels that this does increase slightly when he has chest discomfort. Denies any cough. Pain does not radiate. No recent fevers or chills. Denies any nausea or vomiting. Describes the pain as a twitching. Past medical history pertinent for atrial arrhythmia, depression, type 2 diabetes, obesity, GERD, hyperlipidemia, hypertension, hypothyroidism, peripheral neuropathy, schizoaffective disorder, anxiety. On exam, patient appears nontoxic. Speaking in full sentences and is in no respiratory distress. Patient is reporting that his pain is greatly subsided. Will give aspirin. Normal cardiac exam. Chest tenderness elicited with palpation of the left side of his chest. No lower extremity edema, calf tenderness. Lungs are clear. Abdomen benign. Patient does appear to chronically unwell. Primarily concern for ACS although this would be atypical presentation. New shortness of breath and immobility, to consider PE. No infectious etiology is noted. He did not have any significant pain still, no radiation to his back, and not to start dissection at this time. Plan admit for serial troponins, EKG, baseline blood work. Will obtain a D-dimer and BNP for shortness of breath. FINDINGS: Lungs: Clear lungs. Pleural spaces: No sizable pleural effusion. No pneumothorax. Heart/Mediastinum: Cardiomediastinal silhouette is within normal limits. Bones/joints: No acute displaced fracture or dislocation. IMPRESSION: No acute cardiopulmonary process. Labs reviewed. No leukocytosis. Hemoglobin normal limits. Troponin within normal limits. Plan for repeat. No electrolyte abnormalities. BNP within normal limits. Repeat troponin remains stable at less than 0.05. Patient continues to be asymptomatic. He has received his morning dosing of meds. Referral for stress testing has been sent to [place]. This is typically where the patient re ceives his care. Return precautions were discussed. Encourage cardiac diet and more healthy lifestyle. All his questions and concerns were addressed and he is in agreement with this plan. HPI General Mode of arrival: EMS . Date/Time Provider Initiated Documentation: 04/03/21 08:01 . Limitations to Documentation: no limitations . Information obtained by: patient, RN notes reviewed and old records reviewed . History of Present Illness 56 year old M presents to the emergency department with the chief complaint of left sided chest pain, described as moderate and similar to prior episodes, with intensity rated at 7. Quality is described as aching, and is localized to the chest. Patient reports no radiation. Patient started experiencing this minute(s) (15) and it has been constant (improving, pain minimal at this time). No relieving factors improve symptom(s), No exacerbating factors reported . Patient notes chest pain and shortness of breath (reports this is chronic, worsens with ); denies cough, fever/chills, loss of appetite, nausea/vomiting, rash, syncope and weakness. Patient did receive the following treatments prior to arrival, none Related Data Home Medications Medication Instructions Recorded Confirmed acetaminophen [Tylenol] 1 tab PO PRN PRN 08/20/14 04/03/21 atenolol 1 tab PO DAILY #90 tab 10/26/14 04/03/21 loratadine [Claritin Liqui-Gel] 1 cap PO DAILY #90 tab 12/16/14 04/03/21 simvastatin 80 mg PO DAILY #90 tab 12/21/14 04/03/21 aspirin,buffd-calcium carb-mag 325 mg PO DAILY 11/18/16 04/03/21 benztropine 0.5 mg PO BID 11/18/16 04/03/21 metformin 500 mg PO BID 11/18/16 04/03/21 Risperdal Consta 25 mg IM USEASDIRECTD 10/03/20 04/03/21 fluoxetine 80 mg PO DAILY 10/03/20 04/03/21 gabapentin 300 mg PO TID 10/03/20 04/03/21 lactulose 20 g PO DIRECTED PRN 10/03/20 04/03/21 lorazepam 1 mg PO QID 10/03/20 04/03/21 esomeprazole magnesium [Nexium] 20 mg PO DAILY 10/09/20 04/03/21 albuterol sulfate 2 inh IH Q6H PRN #1 each 12/15/20 04/03/21 multivitamin 1 tab PO DAILY 01/26/21 04/03/21 vitamin A 10,000 unit PO DAILY 01/26/21 04/03/21 Previous Rx's Medication Instructions Recorded albuterol sulfate 2 inh IH Q6H PRN #1 each 12/15/20 Allergies Allergy/AdvReac Type Severity Reaction Status Date / Time buspirone Allergy Unverified 04/03/21 08:22 paliperidone Allergy Unverified 04/03/21 08:22 paroxetine HCl [From Paxil] Allergy Unverified 04/03/21 08:22 sertraline Allergy Unverified 04/03/21 08:22 ziprasidone [From Geodon] Allergy Other (See Unverified 04/03/21 08:22 Comment) aripiprazole [From Abilify] AdvReac Intermediate INVOLUNTARY Unverified 04/03/21 08:22 MUSCLE MOVEMENTS divalproex sodium AdvReac Intermediate INVOLUNTARY Unverified 04/03/21 08:22 [From Depakote] MUSCLE MOVEMENTS mirtazapine AdvReac Intermediate INVOLUNTARY Unverified 04/03/21 08:22 MUSCLE MOVEMENTS risperidone AdvReac Intermediate INVOLUNTARY Unverified 04/03/21 08:22 MUSCLE MOVEMENTS benztropine mesylate AdvReac elevated Unverified 04/03/21 08:22 [From Cogentin] blood sugars enviornmental Allergy Mild Wheezing Uncoded 04/03/21 08:22 General CARLOS: 2 Review of Systems Constitutional Constitutional: Reports as per HPI, Denies chills, Denies fever(s), Denies headache(s), Denies lethargy and Denies poor appetite Eyes Eyes: Denies change in vision ENT Ears, Nose, Mouth, and Throat: Denies dizziness and Denies headache(s) Cardiovascular Cardiovascular: Reports as per HPI, Denies dyspnea and Denies dyspnea on exertion Respiratory Respiratory: Reports as per HPI, Denies chest congestion, Denies cough, Denies pain on inspiration, Denies pain with cough, Denies dyspnea, Denies dyspnea on exertion and Denies wheezing Gastrointestinal Gastrointestinal: Reports as per HPI, Denies abdominal pain, Denies diarrhea, Denies nausea and Denies vomiting Genitourinary Genitourinary: Denies system reviewed and no additional complaints, except as documented (denies change in urinary habits) Musculoskeletal Musculoskeletal: Reports as per HPI and Denies back pain Integumentary/Breasts Skin/Breast: Reports as per HPI and Denies rash Neurologic Neurologic: Reports as per HPI, Denies dizziness and Denies headache(s) Allergic/Immunologic Allergic/Immunologic: Denies wheezing [facility] Medical History Arrhythmia, atrial (09/07/14) Dental caries Depression (10/02/14) Diabetes mellitus type 2 in obese (09/09/14) GERD (gastroesophageal reflux disease) (09/07/14) Hypercholesterolemia (09/07/14) Hyperlipidemia Hypertension Hypothyroidism (acquired) (09/07/14) Peripheral neuropathy Schizoaffective disorder (09/07/14) Rebekah Mariscal [facility] 09/2014- [facility] inpatient Surgical History No significant past surgical history Family History Father No problems noted. Other Heart disease Social History Smoking/Tobacco Use Status: Current every day Tobacco Type: cigarettes and pipe Smoking risk assessment performed?: Yes Alcohol Intake: never Drug use: Never Substance use type: does not use Do you feel safe at home: Yes (anxiety) Do you feel safe in your relationship?: Yes Exam Const General: cooperative, healthy appearing, comfortable, no acute distress and well developed Nutritional Appearance: average body habitus and well nourished Orientation: alert, awake and oriented x3 HENMT Head: normal to inspection Ears: hearing grossly normal bilaterally Mouth: moist mucous membranes Chest Chest: normal inspection of the chest, normal palpation of entire chest wall and no crepitus Resp Effort & Inspection: normal respiratory effort, able to speak in complete sentences and no respiratory distress Auscultation: clear to auscultation bilaterally, no rales, no rhonchi and no wheezes Cardio Rate: regular rate Rhythm: regular rhythm Heart Sounds: S1 normal and S2 normal GI Inspection: normal to inspection, no edema and non-distended Palpation: soft, no hepatosplenomegaly, not firm, no guarding, not rigid and nontender Auscultation: normal bowel sounds Back/Spine/Pelvis Back: no CVA tenderness Thoracic/Lumbar Spine: thoracic and lumbar spine normal to inspection Skin General skin exam: no rashes or lesions noted Trauma: no lacerations or abrasions Neuro General: patient alert, patient awake and patient oriented x3 Cognition: normal cognition Speech: speech normal Gait: normal gait Extrem General: normal to inspection, capillary refill normal, no pedal edema, no calf tenderness and normal gait Psych Appearance: grossly normal and well kempt Mental Status: mental status grossly normal Speech and Movement: speech and movement normal
[2021-04-03] MEDS: Normal Saline Flush 10 ML SYR IVP (08:37)
[2021-04-03] MEDS: Aspirin 81 MG CHEW 324 MG CH (08:37)
[2021-04-03 08:38] LABS: Abs Immature Grans 0.05 10^3/uL (0.0-0.06); Absolute Basophil Count 0.01 10^3/uL (0.0-0.2); Absolute Eosinophil Count 0.19 10^3/uL (0.0-0.7); Absolute Lymphocyte Count 2.15 10^3/uL (1.2-3.4); Absolute Monocyte Count 0.56 10^3/uL (0.1-0.8); Absolute Neutrophil Count 4.14 10^3/uL (1.2-6.7); Basophils % 0.1; Eosinophils % 2.7; HCT 36.9 % (40.0-50.0); HGB 12.4 g/dL (13.5-17.5); Immature Grans % 0.7; Lymphocytes % 30.3; MCH 29.3 pg (27.0-33.0); MCHC 33.6 % (32.0-36.0); MCV 87.2 fL (80-95); MPV 8.5 fL (8.0-11.0); Monocytes % 7.9; Neutrophils % 58.3; Nucleated RBC 0 %; Platelet Count 179 10^3/uL (130-400); RBC 4.23 10^6/uL (4.36-5.78); RDW 12.4 % (11.8-14.1); RDW-SD 39.7 fL
[2021-04-03 08:48] LABS: PTT Activated 22.2 sec (21.0-27.5); Prothrombin Time 10.1 sec (9.3-11.0)
[2021-04-03 08:54] LABS: ALT 41 U/L (16-63); AST 26 U/L (15-37); Albumin 3.3 g/dL (3.4-5.0); Alkaline Phosphatase 80 U/L (46-116); Anion Gap 7.1 mmol/L (3-11); BUN 11 mg/dL (7-18); Bilirubin, Total 0.3 mg/dL (0.2-1.0); CO2 29.9 mmol/L (21.0-32.0); CREATININE 0.8 mg/dL (0.70-1.30); Calcium 8.5 mg/dL (8.5-10.1); Chloride 99 mmol/L (98-107); Glucose 272 mg/dL (74-106); Magnesium 1.8 mg/dL (1.8-2.4); NT-proBNP 51 pg/mL (<300); Potassium 4.3 mmol/L (3.5-5.1); Sodium 136 mmol/L (136-145); Total Protein 7.6 g/dL (6.4-8.2)
--- NOTE | 2021-04-03 09:00 | DI.RAD_ITS ---
Exam(s) XR CHEST 2V PA LATERAL EXAM: XR CHEST 2V PA LATERAL CLINICAL HISTORY: CP TECHNIQUE: 2D digital imaging was performed. COMPARISON: No exams were available for comparison FINDINGS: MEDIASTINUM: Normal. HEART: Normal. PULMONARY VASCULATURE: Normal. LUNGS: Clear. PLEURAL SPACE: No pleural effusion or pneumothorax. BONE:Within normal limits for the patient's age. OTHER FINDINGS:Normal. IMPRESSION: No acute pulmonary findings. DATA REPOSITORY: RADIATION DOSE DELIVERED:
[2021-04-03 09:05] LABS: Troponin I < 0.05 ng/mL (<0.06)
[2021-04-03 09:08] LABS: D-Dimer 372 ng/mlFEU (<500)
--- NOTE | 2021-04-03 10:08 | DI.VRAD_ITS ---
PROCEDURE INFORMATION: Exam: XR Chest Exam date and time: 04/03/2021 9:13 AM Age: 56 years old Clinical indication: Pain; Chest pressure TECHNIQUE: Imaging protocol: XR of the chest. Views: 2 views. COMPARISON: CR XR CHEST 2V PA LATERAL 03/09/2021 12:10 PM FINDINGS: Lungs: Clear lungs. Pleural spaces: No sizable pleural effusion. No pneumothorax. Heart/Mediastinum: Cardiomediastinal silhouette is within normal limits. Bones/joints: No acute displaced fracture or dislocation. IMPRESSION: No acute cardiopulmonary process. Dictated and Authenticated by: Skip Gonzalez MD. Ordering:KESHA Fish MD
[2021-04-03] MEDS: Gabapentin 300 MG CAP PO (10:50)
[2021-04-03] MEDS: Acetaminophen 500 MG TAB PO (10:50)
[2021-04-03] MEDS: Loratidine 10 MG TAB PO (10:51)
[2021-04-03] MEDS: LORazepam 1 MG TAB PO (10:51)
[2021-04-03] MEDS: metFORMIN 500 MG TAB PO (10:51)
[2021-04-03] MEDS: Atenolol 50 MG TAB PO (10:57)
[2021-04-03] MEDS: Esomeprazole 20 MG CAPCR PO (11:25)
[2021-04-03] MEDS: FLUoxetine 20 MG CAP 80 MG PO (11:25)
[2021-04-03] MEDS: Benztropine 1 MG TAB 0.5 MG PO (11:26)
[2021-04-03 11:37] LABS: Troponin I < 0.05 ng/mL (<0.06)
--- NOTE | 2021-04-03 11:58 | NUR.NOTE ---
Addendum entered by Selena Gutierrez 04/03/21 12:01: [facility] phone [phone] fax [phone] Original Note: Nursing Note: Faxed to PCP (Brandon Foster DO of [facility].) todays provider note, labs, EKG, xray report, referral information especially for stress test, and facesheet. Selena Gutierrez
== END 2021-04-03 11:54 | disposition home or self-care (01) ==
PROVIDERS: Emergency Provider Physician Assistant; PCP Family Medicine
DX: R07.89 Other chest pain (principal); R06.02 Shortness of breath
CPT/HCPCS: 36415; 80053; 93005; 99284; 71046; 83735; 83880; 84484; 85025; 85379; 85610; 85730; 93010

== ENCOUNTER 2021-04-12 20:28 | Emergency (ER) | payer MEDICAID, SELFPAY | END 2021-04-12 22:36 | LOC: ER 20:32 | PROVIDERS: Emergency Provider Student in an Organized Health Care Education/Training Program; PCP Family Medicine | DX: Z53.21 Procedure and treatment not carried out due to patient leaving prior to being seen by health care provider (principal) ==

== ENCOUNTER 2021-04-12 20:31 | Emergency (ER) | payer MEDICAID, SELFPAY ==
--- NOTE | 2021-04-12 20:30 | DI.CT_ITS ---
Exam(s) CT HEAD WO EXAM: CT HEAD WO CLINICAL HISTORY: headache, r/o bleed/mass. TECHNIQUE: Imaging Protocol: Axial computed tomography images with coronal and sagittal reformatted images were created and reviewed COMPARISON: No exams were available for comparison FINDINGS: Ventricles and Extra axial spaces: Normal in size and morphology for the patient's age. Hemorrhage: None. Cerebral parenchyma: Normal. No acute territorial infarct. Midline shift: None. Brainstem/Cerebellum: Normal. Calvarium: Normal. Visualized Paranasal sinuses/Mastoids: Small amount of fluid in the left sphenoid sinus. The remaini ng visualized paranasal sinuses and mastoid air cells are clear. Soft Tissues: Unremarkable. IMPRESSION: No acute intracranial process. RADIATION DOSE DELIVERED: 908.21mGy.cm Total DLP DATA REPOSITORY: All CT scans at this facility are submitted to the National Radiology Data Registry (NRDR) Dose Index Registry (DIR) with the [employer] ([employer]). RADIATION OPTIMIZATION: All CT scans at this facility use at least one of these dose optimization te chniques: automated exposure control; mA and/or kV adjustment per patient size (includes targeted exa ms where dose is matched to clinical indication); or iterative reconstruction.
[2021-04-12 20:32] VITALS: BP 171/111; PULSE 95; RESP 20; TEMP 36.4; O2SAT 95
--- NOTE | 2021-04-12 21:06 | W.ED.GENAD ---
Discharge Plan Disposition Patient Disposition: HOME Condition: Good Discharge Details Clinical Impression: Headache, migraine Primary Care Provider: Brandon Foster ED Provider: Froilan Iraheta Home Meds and New Rx's Prescriptions: Continued atenolol 50 MG tablet 1 tab PO DAILY Qty: 90 RF: 3 loratadine [Claritin Liqui-Gel] 10 MG capsule 1 cap PO DAILY Qty: 90 RF: 3 simvastatin 80 MG tablet 80 mg PO DAILY Qty: 90 RF: 3 acetaminophen [Tylenol] 325 MG tablet 1 tab PO PRN PRNRF: 0 esomeprazole magnesium [Nexium] 20 mg Capsule,Delayed Release(Dr/Ec) 20 mg PO DAILY RF: 0 multivitamin Tablet 1 tab PO DAILY RF: 0 vitamin A 10,000 unit Capsule 10,000 unit PO DAILY RF: 0 metformin 500 MG tablet 500 mg PO BID RF: 0 benztropine 0.5 MG tablet 0.5 mg PO BID RF: 0 aspirin,buffd-calcium carb-mag 325 MG tablet 325 mg PO DAILY RF: 0 fluoxetine 40 mg capsule 80 mg PO DAILY RF: 0 gabapentin 300 mg capsule 300 mg PO TID RF: 0 lorazepam 1 mg tablet 1 mg PO QID RF: 0 Risperdal Consta 25 mg/2 mL suspension,extended rel recon 25 mg IM USEASDIRECTD RF: 0 lactulose 10 gram/15 mL solution 20 g PO DIRECTED PRNRF: 0 albuterol sulfate 90 mcg/actuation aerosol powdr breath activated 2 inh IH Q6H PRN (Reason: shortness of breath or wheezing) Qty: 1 RF: 0 Discharge Instructions Instructions: Acute Headache (ED) Additional Instructions: At this time your CT scan shows no signs of stroke or bleed. Your symptoms are consistent with your migraine headaches. Please drink plenty of fluids. Please take Tylenol and Motrin as needed for pain. If you notice any worsening of your symptoms, or any new symptoms such as vomiting, diarrhea, fever, chills, shortness of breath, chest pain, numbness, weakness, or fainting , please return immediately to the emergency department for reevaluation. Please follow up with your primary care provider as soon as possible for reassessment and reevaluation. As always, it was a pleasure participating in your medical care today. Referrals: Brandon Foster [Primary Care Provider] - Medical Decision Making 56-year-old male with past medical history of migraines, schizoaffective disorder, type 2 diabetes, high cholesterol, hypothyroidism, GERD, who presents today for evaluation of headache. Patient states that he has a history of headaches, which she states this is similar to. He states that headache began 4 hours ago. He describes it as achy behind the eyes and in the middle of his head. He admits to mild achiness extending back towards his neck, but denies any severe neck pain. He denies any fever or chills. The patient denies any headache red flags of worst headache of life, thunderclap headache, significant neck pain, fever, chills, concerning family history of polycystic kidney disease, Marfan syndrome, Carole-Danlos syndrome, abdominal aortic aneurysm, aortic dissection, or intracranial aneurysm. Physical exam demonstrates a notably normal neurologic exam, no eye pain. No meningeal signs. Symptoms are inconsistent with meningitis, glaucoma, or giant cell temporal arteritis. Clinically symptoms are also inconsistent with acute intercranial hemorrhage or aneurysm. I did discuss with the patient further testing and lumbar puncture the patient has refused after discussing risks and benefits. He would like to hold off at this time. Symptoms at this time are consistent with migraine headache. Will give migraine cocktail and get a CT scan to rule out tumor or mass, or bleed. 10:[address] scan results have returned and per virtual radiology are negative for acute process. Repeat assessment of the patient continues to demonstrate no meningeal signs, no nuchal rigidity. Patient still does not want any lumbar puncture. On reassessment the patient states that his headache is now completely gone, he feels well and would like to go home. Repeat neurologic exam is normal, no focal neurologic deficits. Repeat exam demonstrates a well-appearing male. He states that he does feel tired and would like to sleep. This is likely from the medications. Will discharge patient home. Currently he does not have a ride and will seek out transportation via [facility]. I have extensively reviewed the treatment plan and discharge instructions with the patient. I have addressed all patient concerns at this time. The patient was made aware of what symptoms to monitor for that would warrant a return to the emergency department. Discussed the plan with the patient, they demonstrate verbal understanding and agreement with our assessment and plan at this time. The documentation in this chart was dictated using [employer] dictation software. Please excuse any dictation errors. FINDINGS: Brain: Normal volume for age. No hemorrhage. No significant white matter disease. No edema. No midline shift or herniation. Cerebral ventricles: No ventriculomegaly. Paranasal sinuses: Small flocculent debris within the dependent left sphenoid sinus. Paranasal sinuses otherwise without air-fluid level. Mastoid air cells: No mastoid effusion. Bones/joints: Unremarkable. No acute osseous finding. Soft tissues: No focal soft tissue abnormality. IMPRESSION: No acute intracranial finding. Thank you for allowing us to participate in the care of your patient. Dictated and Authenticated by: Eren Bernal MD [facility] General Date/Time Provider Initiated Documentation: 04/12/21 20:37. HPI Narrative: 56-year-old male with past medical history of migraines, schizoaffective disorder, type 2 diabetes, high cholesterol, hypothyroidism, GERD, who presents today for evaluation of headache. Patient states that he has a history of headaches, which she states this is similar to. He states that headache began 4 hours ago. He describes it as achy behind the eyes and in the middle of his head. He admits to mild achiness extending back towards his neck, but denies any severe neck pain. He denies any fever or chills. The patient denies any headache red flags of worst headache of life, thunderclap headache, significant neck pain, fever, chills, concerning family history of polycystic kidney disease, Marfan syndrome, Carole-Danlos syndrome, abdominal aortic aneurysm, aortic dissection, or intracranial aneurysm. Related Data Home Medications Medication Instructions Recorded Confirmed acetaminophen [Tylenol] 1 tab PO PRN PRN 08/20/14 04/12/21 atenolol 1 tab PO DAILY #90 tab 10/26/14 04/12/21 loratadine [Claritin Liqui-Gel] 1 cap PO DAILY #90 tab 12/16/14 04/12/21 simvastatin 80 mg PO DAILY #90 tab 12/21/14 04/12/21 aspirin,buffd-calcium carb-mag 325 mg PO DAILY 11/18/16 04/12/21 benztropine 0.5 mg PO BID 11/18/16 04/12/21 metformin 500 mg PO BID 11/18/16 04/12/21 Risperdal Consta 25 mg IM USEASDIRECTD 10/03/20 04/12/21 fluoxetine 80 mg PO DAILY 10/03/20 04/12/21 gabapentin 300 mg PO TID 10/03/20 04/12/21 lactulose 20 g PO DIRECTED PRN 10/03/20 04/12/21 lorazepam 1 mg PO QID 10/03/20 04/12/21 esomeprazole magnesium [Nexium] 20 mg PO DAILY 10/09/20 04/12/21 albuterol sulfate 2 inh IH Q6H PRN #1 each 12/15/20 04/12/21 multivitamin 1 tab PO DAILY 01/26/21 04/12/21 vitamin A 10,000 unit PO DAILY 01/26/21 04/12/21 Previous Rx's Medication Instructions Recorded albuterol sulfate 2 inh IH Q6H PRN #1 each 12/15/20 Allergies Allergy/AdvReac Type Severity Reaction Status Date / Time buspirone Allergy Unverified 04/12/21 20:37 paliperidone Allergy Unverified 04/12/21 20:37 paroxetine HCl [From Paxil] Allergy Unverified 04/12/21 20:37 sertraline Allergy Unverified 04/12/21 20:37 ziprasidone [From Geodon] Allergy Other (See Unverified 04/12/21 20:37 Comment) aripiprazole [From Abilify] AdvReac Intermediate INVOLUNTARY Unverified 04/12/21 20:37 MUSCLE MOVEMENTS divalproex sodium AdvReac Intermediate INVOLUNTARY Unverified 04/12/21 20:37 [From Depakote] MUSCLE MOVEMENTS mirtazapine AdvReac Intermediate INVOLUNTARY Unverified 04/12/21 20:37 MUSCLE MOVEMENTS risperidone AdvReac Intermediate INVOLUNTARY Unverified 04/12/21 20:37 MUSCLE MOVEMENTS benztropine mesylate AdvReac elevated Unverified 04/12/21 20:37 [From Cogentin] blood sugars enviornmental Allergy Mild Wheezing Uncoded 04/12/21 20:37 General Stated Complaint: Headache CARLOS: 3 Review of Systems All systems reviewed & are unremarkable except as noted in HPI and below PFSH Medical History Arrhythmia, atrial (09/07/14) Dental caries Depression (10/02/14) Diabetes mellitus type 2 in obese (09/09/14) GERD (gastroesophageal reflux disease) (09/07/14) Hypercholesterolemia (09/07/14) Hyperlipidemia Hypertension Hypothyroidism (acquired) (09/07/14) Peripheral neuropathy Schizoaffective disorder (09/07/14) Rebekah FREDDIE Mariscal 09/2014- [facility] inpatient Surgical History No significant past surgical history Family History Father No problems noted. Other Heart disease Social History Smoking/Tobacco Use Status: Current every day Tobacco Type: cigarettes and pipe Smoking risk assessment performed?: Yes Alcohol Intake: never Drug use: Never Substance use type: does not use Do you feel safe at home: Yes (anxiety) Do you feel safe in your relationship?: Yes Exam Narrative Exam Narrative: 1.Const: Well-nourished, Well-developed, appearing stated age 2.Eyes: PERRL, no conjunctival injection, and symmetrical lids. 3.ENT: Atraumatic external nose and ears. Moist MM. Neck: Symmetric, trachea midline, No thyromegaly. Patient demonstrates good movement of cervical neck. There is no nuchal rigidity, no nuchal tenderness. Patient is able to flex the neck without any difficulty or significant pain. Negative Kernig's and Brudzinski sign. 4.CVS: +S1/S2, No murmurs or gallops. Peripheral pulses 2+ and equal in all extremities. Brisk capillary refill in all extremities. 5.RESP: Unlabored respiratory effort. Clear to auscultation bilaterally. No wheezes rales or rhonchi 6.GI: Soft, Nontender/Nondistended, No hepatosplenomegaly. No guarding or rebound. 7.MSK: Normocephalic/Atraumatic, Extremities w/o deformity or ttp No cyanosis or clubbing, Normal movement of all extremities 8.Skin: Warm, Dry. No rashes or lesions. 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 Sensation grossly intact, no focal neurologic deficits. All 6 cardinal planes of vision are fully intact. No evidence of rotatory or vertical nystagmus. The patient demonstrated a normal [id number]-[id number], good dexterity. There was no evidence of dysdiadochokinesia. Patient was able to ambulate without difficulty. There was no wide-based gait. Romberg testing was normal. Hxha-kj-dubx testing was normal. Sensation was intact bilaterally as well as muscle strength bilaterally for all extremities. Patient was able to verbalize butter cup with no slurring, or miss pronunciation. 10.Psych: (AAO) x3. Appropriate mood and affect Course Vital Signs Vital signs: Vital Signs Temperature 36.4 C L 04/12/21 20:32 Pulse 95 H 04/12/21 20:32 Respiratory Rate 20 04/12/21 20:32 Blood Pressure 171/111 H 04/12/21 20:32 Pulse Oximetry 95 04/12/21 20:32 Temperature 36.4 C L 04/12/21 20:32 Pulse 95 H 04/12/21 20:32 Respiratory Rate 20 04/12/21 20:32 Blood Pressure 171/111 H 04/12/21 20:32 Pulse Oximetry 95 04/12/21 20:32 Pain Level 5 04/12/21 20:32
[2021-04-12] MEDS: ACETAMINOPHEN 1,000 MG/100 ML BTL 400 MG IVPB (21:45)
[2021-04-12] MEDS: methylPREDNISolone SUCC 125 MG VIAL IVP (21:45)
[2021-04-12] MEDS: Normal Saline 1,000 ML 1000 ML IV (21:45)
[2021-04-12] MEDS: diphenhydrAMINE 50 MG/ML VIAL 25 MG IVP (21:45)
[2021-04-12] MEDS: Prochlorperazine 10 MG/2 ML VIAL IVP (21:46)
--- NOTE | 2021-04-12 21:51 | DI.VRAD_ITS ---
PROCEDURE INFORMATION: Exam: CT Head Without Contrast Exam date and time: 04/12/2021 8:39 PM Age: 56 years old Clinical indication: Other: Headache, R/O bleed/mass TECHNIQUE: Imaging protocol: Computed tomography of the head without contrast. Radiation optimization: All CT scans at this facility use at least one of these dose optimization techniques: automated exposure control; mA and/or kV adjustment per patient size (includes targeted exams where dose is matched to clinical indication); or iterative reconstruction. COMPARISON: No relevant prior studies available. FINDINGS: Brain: Normal volume for age. No hemorrhage. No significant white matter disease. No edema. No midline shift or herniation. Cerebral ventricles: No ventriculomegaly. Paranasal sinuses: Small flocculent debris within the dependent left sphenoid sinus. Paranasal sinuses otherwise without air-fluid level. Mastoid air cells: No mastoid effusion. Bones/joints: Unremarkable. No acute osseous finding. Soft tissues: No focal soft tissue abnormality. IMPRESSION: No acute intracranial finding. Dictated and Authenticated by: Eren Bernal MD. Ordering:GUERRERO Mcgovern MD
[2021-04-12 22:16] LABS: Abs Immature Grans 0.02 10^3/uL (0.0-0.06); Absolute Basophil Count 0.02 10^3/uL (0.0-0.2); Absolute Lymphocyte Count 1.74 10^3/uL (1.2-3.4); Absolute Monocyte Count 0.62 10^3/uL (0.1-0.8); Basophils % 0.2; Eosinophils % 3.2; HCT 35.5 % (40.0-50.0); HGB 12.1 g/dL (13.5-17.5); Immature Grans % 0.2; Lymphocytes % 18.7; MCHC 34.1 % (32.0-36.0); MCV 88.1 fL (80-95); MPV 8.6 fL (8.0-11.0); Monocytes % 6.7; Nucleated RBC 0 %; Platelet Count 185 10^3/uL (130-400); RBC 4.03 10^6/uL (4.36-5.78); RDW 12.2 % (11.8-14.1); RDW-SD 39.2 fL
[2021-04-12 22:36] LABS: ALT 42 U/L (16-63); AST 32 U/L (15-37); Albumin 3.1 g/dL (3.4-5.0); Alkaline Phosphatase 76 U/L (46-116); Anion Gap 9.2 mmol/L (3-11); BUN 15 mg/dL (7-18); Bilirubin, Total 0.3 mg/dL (0.2-1.0); CO2 27.8 mmol/L (21.0-32.0); Calcium 8.5 mg/dL (8.5-10.1); Chloride 99 mmol/L (98-107); Glucose 249 mg/dL (74-106); Potassium 4.1 mmol/L (3.5-5.1); Sodium 136 mmol/L (136-145); Total Protein 7.2 g/dL (6.4-8.2)
[2021-04-12 22:51] VITALS: BP 171/111; PULSE 90; RESP 20; TEMP 36.9; O2SAT 95
== END 2021-04-13 01:25 | disposition home or self-care (01) ==
PROVIDERS: Emergency Provider Student in an Organized Health Care Education/Training Program; PCP Family Medicine
DX: G43.809 Other migraine, not intractable, without status migrainosus (principal)
CPT/HCPCS: 36415; 80053; 96361; 96365; 96366; 96375; 99284; 70450; 85025; 99285; J0131; J0780; J1200; J2930

== ENCOUNTER 2021-04-21 02:21 | Emergency (ER) | payer MEDICAID, SELFPAY ==
[2021-04-21] VITALS (16 sets, daily range): BP systolic 120–144; BP diastolic 62–79; PULSE 72–80; RESP 20–24; TEMP 36.7; O2SAT 92–97
--- NOTE | 2021-04-21 02:15 | RT.EKG_ITS ---
APPROVED REPORT Exam: Resting ECG Reason for Exam: CHEST PAIN Patient Location: E HR:80 bpm ECG Measurements Heart Rate 80 AXIS CA 174 P 42 QRSd 110 QRS 35 QT 402 T 64 QTc 465 Conclusion Sinus rhythm...normal P axis, V-rate 60- 99 There are no significant changes compared to prior EKG performed on 04/03/2021 at 08:12.
--- NOTE | 2021-04-21 02:30 | DI.RAD_ITS ---
Exam(s) XR CHEST 2V PA LATERAL EXAM: XR CHEST 2V PA LATERAL CLINICAL HISTORY: chest pain. TECHNIQUE: 2D digital imaging was performed. COMPARISON: CR,XR XR CHEST 2V PA LATERAL from 04/03/2021 FINDINGS: Heart size is normal. The mediastinum is not widened. Lungs are clear. No infiltrates nor pleural effusions. IMPRESSION: No acute pulmonary findings. DATA REPOSITORY: RADIATION DOSE DELIVERED:
--- NOTE | 2021-04-21 02:33 | W.ED.GENAD ---
Discharge Plan Disposition Patient Disposition: HOME Condition: Good Discharge Details Clinical Impression: Chest pain Primary Care Provider: Brandon Foster ED Provider: Dariel Matthews [place] Meds and New Rx's Prescriptions: Continued atenolol 50 MG tablet 1 tab PO DAILY Qty: 90 RF: 3 loratadine [Claritin Liqui-Gel] 10 MG capsule 1 cap PO DAILY Qty: 90 RF: 3 simvastatin 80 MG tablet 80 mg PO DAILY Qty: 90 RF: 3 acetaminophen [Tylenol] 325 MG tablet 1 tab PO PRN PRNRF: 0 esomeprazole magnesium [Nexium] 20 mg Capsule,Delayed Release(Dr/Ec) 20 mg PO DAILY RF: 0 multivitamin Tablet 1 tab PO DAILY RF: 0 vitamin A 10,000 unit Capsule 10,000 unit PO DAILY RF: 0 metformin 500 MG tablet 500 mg PO BID RF: 0 benztropine 0.5 MG tablet 0.5 mg PO BID RF: 0 aspirin,buffd-calcium carb-mag 325 MG tablet 325 mg PO DAILY RF: 0 fluoxetine 40 mg capsule 80 mg PO DAILY RF: 0 gabapentin 300 mg capsule 300 mg PO TID RF: 0 lorazepam 1 mg tablet 1 mg PO QID RF: 0 Risperdal Consta 25 mg/2 mL suspension,extended rel recon 25 mg IM USEASDIRECTD RF: 0 lactulose 10 gram/15 mL solution 20 g PO DIRECTED PRNRF: 0 albuterol sulfate 90 mcg/actuation aerosol powdr breath activated 2 inh IH Q6H PRN (Reason: shortness of breath or wheezing) Qty: 1 RF: 0 Discharge Instructions Instructions: Chest Pain (ED) Additional Instructions: Your laboratory studies, EKG, chest x-ray look fine this morning and are reassuring. Follow-up with primary care. Return to the ED for new/worsening pain, shortness of breath, fever, other concerns. Referrals: Brandon Foster [Primary Care Provider] - Medical Decision Making Patient well-known to ED presenting with complaint of chest fullness and labored breathing. Couple of visits for months for same over the last few months. There is no real change in his story tonight compared to previous chest pain visits. His EKG is unchanged from previous. Unlikely that this is cardiac in nature given his multiple previous visits. However, he does have risk factors and still needs to be evaluated as such. Patient initial laboratory studies unremarkable. First troponin negative. D-dimer negative. Chest x-ray without any acute changes. We will plan second EKG and troponin and discharge if remains unchanged. Repeat EKG and troponin remain unchanged. Patient has remained stable with no new complaints. Patient will be discharged to follow-up with primary care. Return to ED for new or worsening chest pain, shortness of breath, concerns. Medical Records Medical records reviewed: Yes I reviewed the patient's medical records. Lab Data Lab results reviewed: Yes I reviewed the patient's lab results. ECG Data Attestation: I personally reviewed and interpreted this ECG (s) as follows: Prior ECG tracings: available for review Interpretation: see EKG HPI General Mode of arrival: EMS. Date/Time Provider Initiated Documentation: 04/21/21 02:33. Limitations to Documentation: no limitations. Information obtained by: patient, RN notes reviewed and old records reviewed. HPI Narrative: Patient presents to the ED with complaint of left-sided chest discomfort and fullness for the last hour. He refused nitro from EMS but did take aspirin and did have IV started. Reports that the fullness radiates to the left side of his chest. He feels like he has labored breathing. He typically presents to the ED couple of times a month with same complaint. He denies fever or cough. Denies radiation of pain to back or neck. Denies GI symptoms. Denies leg pain or leg swelling. He said he took ibuprofen and waited for about an hour before calling EMS. Related Data Home Medications Medication Instructions Recorded Confirmed acetaminophen [Tylenol] 1 tab PO PRN PRN 08/20/14 04/21/21 atenolol 1 tab PO DAILY #90 tab 10/26/14 04/21/21 loratadine [Claritin Liqui-Gel] 1 cap PO DAILY #90 tab 12/16/14 04/21/21 simvastatin 80 mg PO DAILY #90 tab 12/21/14 04/21/21 aspirin,buffd-calcium carb-mag 325 mg PO DAILY 11/18/16 04/21/21 benztropine 0.5 mg PO BID 11/18/16 04/21/21 metformin 500 mg PO BID 11/18/16 04/21/21 Risperdal Consta 25 mg IM USEASDIRECTD 10/03/20 04/21/21 fluoxetine 80 mg PO DAILY 10/03/20 04/21/21 gabapentin 300 mg PO TID 10/03/20 04/21/21 lactulose 20 g PO DIRECTED PRN 10/03/20 04/21/21 lorazepam 1 mg PO QID 10/03/20 04/21/21 esomeprazole magnesium [Nexium] 20 mg PO DAILY 10/09/20 04/21/21 albuterol sulfate 2 inh IH Q6H PRN #1 each 12/15/20 04/21/21 multivitamin 1 tab PO DAILY 01/26/21 04/21/21 vitamin A 10,000 unit PO DAILY 01/26/21 04/21/21 Previous Rx's Medication Instructions Recorded albuterol sulfate 2 inh IH Q6H PRN #1 each 12/15/20 Allergies Allergy/AdvReac Type Severity Reaction Status Date / Time buspirone Allergy Unverified 04/21/21 02:31 paliperidone Allergy Unverified 04/21/21 02:31 paroxetine HCl [From Paxil] Allergy Unverified 04/21/21 02:31 sertraline Allergy Unverified 04/21/21 02:31 ziprasidone [From Geodon] Allergy Other (See Unverified 04/21/21 02:31 Comment) aripiprazole [From Abilify] AdvReac Intermediate INVOLUNTARY Unverified 04/21/21 02:31 MUSCLE MOVEMENTS divalproex sodium AdvReac Intermediate INVOLUNTARY Unverified 04/21/21 02:31 [From Depakote] MUSCLE MOVEMENTS mirtazapine AdvReac Intermediate INVOLUNTARY Unverified 04/21/21 02:31 MUSCLE MOVEMENTS risperidone AdvReac Intermediate INVOLUNTARY Unverified 04/21/21 02:31 MUSCLE MOVEMENTS benztropine mesylate AdvReac elevated Unverified 04/21/21 02:31 [From Cogentin] blood sugars enviornmental Allergy Mild Wheezing Uncoded 04/21/21 02:31 General Stated Complaint: Chest/Rib CARLOS: 3 Review of Systems Narrative: As documented in HPI otherwise negative as below. Const: no fever, chills, weakness Resp: no cough, SOB, pleuritic pain CV: no diaphoresis, edema, syncope GI: no abdominal pain, nausea, vomiting, diarrhea Neuro: no headache, numbness, focal weakness, confusion PFSH Medical History Arrhythmia, atrial (09/07/14) Dental caries Depression (10/02/14) Diabetes mellitus type 2 in obese (09/09/14) GERD (gastroesophageal reflux disease) (09/07/14) Hypercholesterolemia (09/07/14) Hyperlipidemia Hypertension Hypothyroidism (acquired) (09/07/14) Peripheral neuropathy Schizoaffective disorder (09/07/14) Rebekah Mariscal [facility] 09/2014- [facility] inpatient Surgical History No significant past surgical history Family History Father No problems noted. Other Heart disease Social History Smoking/Tobacco Use Status: Current every day Tobacco Type: cigarettes and pipe Smoking risk assessment performed?: Yes Alcohol Intake: never Drug use: Never Substance use type: does not use Do you feel safe at home: Yes (anxiety) Do you feel safe in your relationship?: Yes Exam Narrative Exam Narrative: Const: Morbidly obese male in NAD. HEENT: NC/AT. Normal facial exam. Eyes: Normal conjunctiva and sclera. Neck: Supple. Trachea midline. Lungs: Normal respiratory effort. Lungs are clear. No chest wall tenderness. Cor: RRR without murmur/gallop. Good radial pulses. GI: Soft. NT/ND. No guarding or rebound. Neuro: A+O x 3. Normal speech, mentation, gait. Cranial nerves II - XII grossly intact. No gross motor or sensory deficit. Ext: No C/C/E. No calf tenderness. Skin: Warm and dry without rash. Course Vital Signs Vital signs: Vital Signs Temperature 98.1 F 04/21/21 02:23 Pulse 80 04/21/21 02:23 Respiratory Rate 23 04/21/21 02:23 Blood Pressure 144/78 H 04/21/21 02:23 Pulse Oximetry 97 04/21/21 02:23 Temperature 98.1 F 04/21/21 02:23 Temperature Source Temporal Artery Scan 04/21/21 02:23 Pulse 80 04/21/21 02:23 Respiratory Rate 23 04/21/21 02:23 Respiratory Effort Non-Labored 04/21/21 02:28 Respiratory Depth Normal 04/21/21 02:28 Respiratory Pattern Normal 04/21/21 02:28 Blood Pressure 144/78 H 04/21/21 02:23 Blood Pressure Position Supine 04/21/21 02:23 Pulse Oximetry 97 04/21/21 02:23 Oxygen Delivery Method Room Air 04/21/21 02:23 Oxygen Flow Rate 0 04/21/21 02:23 Pain Level 7 04/21/21 02:28
[2021-04-21 02:51] LABS: Abs Immature Grans 0.04 10^3/uL (0.0-0.06); Absolute Basophil Count 0.01 10^3/uL (0.0-0.2); Absolute Lymphocyte Count 1.54 10^3/uL (1.2-3.4); Absolute Monocyte Count 0.53 10^3/uL (0.1-0.8); Absolute Neutrophil Count 5.65 10^3/uL (1.2-6.7); Basophils % 0.1; Eosinophils % 3.7; HGB 11.5 g/dL (13.5-17.5); Immature Grans % 0.5; Lymphocytes % 19.1; MCH 29.7 pg (27.0-33.0); MCHC 33.8 % (32.0-36.0); MCV 87.9 fL (80-95); MPV 8.3 fL (8.0-11.0); Monocytes % 6.6; Nucleated RBC 0 %; Platelet Count 161 10^3/uL (130-400); RBC 3.87 10^6/uL (4.36-5.78); RDW 12.3 % (11.8-14.1); RDW-SD 39.7 fL; WBC 8.07 10^3/uL (4.4-10.8)
[2021-04-21 03:07] LABS: ALT 37 U/L (16-63); AST 19 U/L (15-37); Albumin 2.9 g/dL (3.4-5.0); Alkaline Phosphatase 82 U/L (46-116); Anion Gap 7.1 mmol/L (3-11); BUN 10 mg/dL (7-18); Bilirubin, Total 0.2 mg/dL (0.2-1.0); CO2 26.9 mmol/L (21.0-32.0); CREATININE 0.9 mg/dL (0.70-1.30); Calcium 8.4 mg/dL (8.5-10.1); Chloride 100 mmol/L (98-107); Glucose 311 mg/dL (74-106); Magnesium 1.6 mg/dL (1.8-2.4); Sodium 134 mmol/L (136-145); Total Protein 6.9 g/dL (6.4-8.2); Troponin I < 0.05 ng/mL (<0.06)
[2021-04-21 03:32] LABS: D-Dimer 430 ng/mlFEU (<500)
--- NOTE | 2021-04-21 05:12 | DI.VRAD_ITS ---
PROCEDURE INFORMATION: Exam: XR Chest Exam date and time: 04/21/2021 2:44 AM Age: 56 years old Clinical indication: Other: Cp TECHNIQUE: Imaging protocol: XR of the chest. Views: 2 views. COMPARISON: CR XR CHEST 2V PA LATERAL 04/03/2021 9:38 AM FINDINGS: Lungs: Unremarkable. No consolidation. Pleural spaces: Unremarkable. No pleural effusion. No pneumothorax. Heart/Mediastinum: Unremarkable. No cardiomegaly. Bones/joints: Unremarkable. IMPRESSION: No acute findings. Dictated and Authenticated by: Doc Galvan MD. Ordering:MING Vieira MD
--- NOTE | 2021-04-21 05:30 | RT.EKG_ITS ---
APPROVED REPORT Exam: Resting ECG Reason for Exam: Patient Location: E HR:71 bpm ECG Measurements Heart Rate 71 AXIS W[place] 163 P 34 QRSd 101 QRS 34 QT 413 T 62 QTc 451 Conclusion Sinus rhythm...normal P axis, V-rate 60- 99 There are no significant changes compared to prior EKG performed on 04/21/2021 at 02:27.
[2021-04-21 06:02] LABS: Troponin I < 0.05 ng/mL (<0.06)
== END 2021-04-21 07:22 | disposition home or self-care (01) ==
PROVIDERS: Emergency Provider Emergency Medicine; PCP Family Medicine
DX: R07.9 Chest pain, unspecified (principal)
CPT/HCPCS: 80053; 93005; 99284; 71046; 83735; 84484; 85025; 85379; 93010; 99283

== ENCOUNTER 2021-04-22 11:40 | Emergency (ER) | payer MEDICAID, SELFPAY ==
--- NOTE | 2021-04-22 11:30 | RT.EKG_ITS ---
APPROVED REPORT Exam: Resting ECG Reason for Exam: chest pain Patient Location: E HR:74 bpm ECG Measurements Heart Rate 74 AXIS CA 185 P 38 QRSd 109 QRS 26 QT 408 T 59 QTc 453 Conclusion Sinus rhythm...normal P axis, V-rate 60- 99
[2021-04-22 11:53] VITALS: BP 129/60; PULSE 74; RESP 16; TEMP 36.6; O2SAT 96
[2021-04-22 12:28] LABS: Abs Immature Grans 0.05 10^3/uL (0.0-0.06); Absolute Basophil Count 0.02 10^3/uL (0.0-0.2); Absolute Eosinophil Count 0.26 10^3/uL (0.0-0.7); Absolute Lymphocyte Count 1.25 10^3/uL (1.2-3.4); Absolute Monocyte Count 0.54 10^3/uL (0.1-0.8); Absolute Neutrophil Count 6.16 10^3/uL (1.2-6.7); Basophils % 0.2; Eosinophils % 3.1; HCT 36.4 % (40.0-50.0); HGB 12.2 g/dL (13.5-17.5); Immature Grans % 0.6; Lymphocytes % 15.1; MCH 29.6 pg (27.0-33.0); MCHC 33.5 % (32.0-36.0); MCV 88.3 fL (80-95); MPV 8.7 fL (8.0-11.0); Monocytes % 6.5; Neutrophils % 74.5; Nucleated RBC 0 %; Platelet Count 191 10^3/uL (130-400); RBC 4.12 10^6/uL (4.36-5.78); RDW 12.5 % (11.8-14.1); RDW-SD 40.6 fL; WBC 8.28 10^3/uL (4.4-10.8)
[2021-04-22 12:48] LABS: ALT 40 U/L (16-63); AST 25 U/L (15-37); Albumin 3.1 g/dL (3.4-5.0); Alkaline Phosphatase 91 U/L (46-116); Anion Gap 10.3 mmol/L (3-11); BUN 10 mg/dL (7-18); Bilirubin, Total 0.2 mg/dL (0.2-1.0); CO2 25.7 mmol/L (21.0-32.0); CREATININE 0.9 mg/dL (0.70-1.30); Calcium 8.4 mg/dL (8.5-10.1); Chloride 100 mmol/L (98-107); Glucose 325 mg/dL (74-106); Magnesium 1.7 mg/dL (1.8-2.4); NT-proBNP 136 pg/mL (<300); Potassium 4.1 mmol/L (3.5-5.1); Sodium 136 mmol/L (136-145); Total Protein 7.3 g/dL (6.4-8.2)
[2021-04-22 12:50] LABS: Troponin I < 0.05 ng/mL (<0.06)
[2021-04-22 12:55] LABS: ETHANOL BLOOD < 3.0 mg/dL (<3)
--- NOTE | 2021-04-22 13:38 | ED.GENADUL_ITS ---
Discharge Plan Disposition Patient Disposition: HOME Condition: Good Discharge Details Clinical Impression: Chest pain Primary Care Provider: Brandon Foster ED Provider: Lucille Farley Home Meds and New Rx's Prescriptions: No Action atenolol 50 MG tablet 1 tab PO DAILY Qty: 90 RF: 3 loratadine [Claritin Liqui-Gel] 10 MG capsule 1 cap PO DAILY Qty: 90 RF: 3 simvastatin 80 MG tablet 80 mg PO DAILY Qty: 90 RF: 3 acetaminophen [Tylenol] 325 MG tablet 1 tab PO PRN PRNRF: 0 esomeprazole magnesium [Nexium] 20 mg Capsule,Delayed Release(Dr/Ec) 20 mg PO DAILY RF: 0 multivitamin Tablet 1 tab PO DAILY RF: 0 vitamin A 10,000 unit Capsule 10,000 unit PO DAILY RF: 0 metformin 500 MG tablet 500 mg PO BID RF: 0 benztropine 0.5 MG tablet 0.5 mg PO BID RF: 0 aspirin,buffd-calcium carb-mag 325 MG tablet 325 mg PO DAILY RF: 0 fluoxetine 40 mg capsule 80 mg PO DAILY RF: 0 gabapentin 300 mg capsule 300 mg PO TID RF: 0 lorazepam 1 mg tablet 1 mg PO QID RF: 0 Risperdal Consta 25 mg/2 mL suspension,extended rel recon 25 mg IM USEASDIRECTD RF: 0 lactulose 10 gram/15 mL solution 20 g PO DIRECTED PRNRF: 0 albuterol sulfate 90 mcg/actuation aerosol powdr breath activated 2 inh IH Q6H PRN (Reason: shortness of breath or wheezing) Qty: 1 RF: 0 Discharge Instructions Instructions: Chest Pain (ED) Additional Instructions: Please follow-up with your mental health provider on Sunday you have You have declined chest x-ray, please follow-up with your doctor regarding symptoms Please return earlier should you have new or worsening complaints Discharge Data Discharge Date/Time-TO BE ENTERED AT DEPARTURE: 04/22/21 16:30 Medical Decision Making Declined at this time, he has also declined CT imaging, therapy with consult with outpatient patient care bed ordered change in medication secondary to anxiety, he denies SI or HI He is currently pain-free EKG troponin does not show acute abnormality pt with recent cardiac evaluation 4 days prior to arrival, no indication for repeat evaluation at this time as pain present for the last for days and would be atypical presentation no dyspnea or shortness of breath He will stay for discharge home and again adamantly denied suicidal homicidal ideation. STEFANI states that from [facility] was consulted For further outpatient care bed , searching for bed placement for patient, [facility] will For patient at this time he is stable for discharge home considered pe, but no hypoxia, tachypnea, or tachycardia , low suspicion for PE Medical Records Medical records reviewed: Yes I reviewed the patient's medical records. Lab Data Lab results reviewed: Yes I reviewed the patient's lab results. HPI General Mode of arrival: ambulatory . Date/Time Provider Initiated Documentation: 04/22/21 11:42 . Limitations to Documentation: no limitations . Information obtained by: patient . HPI Narrative: This 56-year-old gentleman with history of schizoaffective disorder, hypothyroidism, hypercholesterolemia, type 2 diabetes presents with recurrent left-sided chest pain intermittently for the last several days. it sounds like she was here several days ago for similar symptoms. He denies any significant shortness of breath. He denies any fever or chills. He states that he has been feeling very anxious at home and is actually requesting an admission for transition of his Ativan to Klonopin as he feels this is more effective. He states that he suspects his symptoms are related to his anxiety but is unsure. He is specifically requesting admission for medical management of his anxiety. He denies any pleuritic chest pain or shortness of breath at this time. He denies any calf pain or swelling. He states his symptoms are identical to his discomfort on 21 April for which she was evaluated. Denies any change in his symptoms. Related Data Home Medications Medication Instructions Recorded Confirmed acetaminophen [Tylenol] 1 tab PO PRN PRN 08/20/14 04/22/21 atenolol 1 tab PO DAILY #90 tab 10/26/14 04/22/21 loratadine [Claritin Liqui-Gel] 1 cap PO DAILY #90 tab 12/16/14 04/22/21 simvastatin 80 mg PO DAILY #90 tab 12/21/14 04/22/21 aspirin,buffd-calcium carb-mag 325 mg PO DAILY 11/18/16 04/22/21 benztropine 0.5 mg PO BID 11/18/16 04/22/21 metformin 500 mg PO BID 11/18/16 04/22/21 Risperdal Consta 25 mg IM USEASDIRECTD 11/29/20 06/18/21 fluoxetine 80 mg PO DAILY 10/03/20 04/22/21 gabapentin 300 mg PO TID 10/03/20 04/22/21 lactulose 20 g PO DIRECTED PRN 10/03/20 04/22/21 lorazepam 1 mg PO QID 10/03/20 04/22/21 esomeprazole magnesium [Nexium] 20 mg PO DAILY 10/09/20 04/22/21 albuterol sulfate 2 inh IH Q6H PRN #1 each 12/15/20 04/22/21 multivitamin 1 tab PO DAILY 01/26/21 04/22/21 vitamin A 10,000 unit PO DAILY 01/26/21 04/22/21 Previous Rx's Medication Instructions Recorded albuterol sulfate 2 inh IH Q6H PRN #1 each 12/15/20 Allergies Allergy/AdvReac Type Severity Reaction Status Date / Time buspirone Allergy Unverified 04/22/21 12:05 paliperidone Allergy Unverified 04/22/21 12:05 paroxetine HCl [From Paxil] Allergy Unverified 04/22/21 12:05 sertraline Allergy Unverified 04/22/21 12:05 ziprasidone [From Geodon] Allergy Other (See Unverified 04/22/21 12:05 Comment) aripiprazole [From Abilify] AdvReac Intermediate INVOLUNTARY Unverified 04/22/21 12:05 MUSCLE MOVEMENTS divalproex sodium AdvReac Intermediate INVOLUNTARY Unverified 04/22/21 12:05 [From Depakote] MUSCLE MOVEMENTS mirtazapine AdvReac Intermediate INVOLUNTARY Unverified 04/22/21 12:05 MUSCLE MOVEMENTS risperidone AdvReac Intermediate INVOLUNTARY Unverified 04/22/21 12:05 MUSCLE MOVEMENTS benztropine mesylate AdvReac elevated Unverified 04/22/21 12:05 [From Cogentin] blood sugars enviornmental Allergy Mild Wheezing Uncoded 04/22/21 12:05 General Stated Complaint: Chest Pain CARLOS: 2 Review of Systems Narrative: Review of systems obtained x7 aside from where indicated in HPI [facility] Medical History Arrhythmia, atrial (09/07/14) Dental caries Depression (10/02/14) Diabetes mellitus type 2 in obese (09/09/14) GERD (gastroesophageal reflux disease) (09/07/14) Hypercholesterolemia (09/07/14) Hyperlipidemia Hypertension Hypothyroidism (acquired) (09/07/14) Peripheral neuropathy Schizoaffective disorder (09/07/14) Rebekah Parkerdarío [facility] 09/2014- [facility] inpatient Surgical History No significant past surgical history Family History Father No problems noted. Other Heart disease Social History Smoking/Tobacco Use Status: Current every day Tobacco Type: cigarettes and pipe Smoking risk assessment performed?: Yes Alcohol Intake: never Drug use: Never Substance use type: does not use Do you feel safe at home: Yes (anxiety) Do you feel safe in your relationship?: Yes Exam Const General: cooperative and no acute distress HENMT Head: normal to inspection Eyes Pupils: PERRL Resp Effort & Inspection: normal respiratory effort Cardio Rate: regular rate Rhythm: regular rhythm Other: mild chest wall tenderness GI Inspection: normal to inspection Skin General skin exam: no rashes or lesions noted Neuro General: patient alert and patient oriented x3 Course Vital Signs Vital signs: Vital Signs Temperature 36.6 C 04/22/21 11:53 Pulse 74 04/22/21 11:53 Respiratory Rate 16 04/22/21 11:53 Blood Pressure 129/60 04/22/21 11:53 Pulse Oximetry 96 04/22/21 11:53 Temperature 36.6 C 04/22/21 11:53 Temperature Source Tympanic 04/22/21 11:53 Pulse 74 04/22/21 11:53 Respiratory Rate 16 04/22/21 11:53 Respiratory Effort 04/22/21 12:17 Respiratory Depth Normal 04/22/21 12:17 Respiratory Pattern Normal 04/22/21 12:17 Blood Pressure 129/60 04/22/21 11:53 Blood Pressure Position Sitting 04/22/21 11:53 Pulse Oximetry 96 04/22/21 11:53 Oxygen Delivery Method Room Air 04/22/21 11:53 Oxygen Flow Rate 0 04/22/21 11:53 Pain Level 7 04/22/21 12:17 Lab/Test Results Lab/Test Results: Laboratory Tests Range/Units 04/22/21 04/22/21 04/22/21 11:50 11:50 11:50 WBC (4.4-10.8) 10^3/uL 8.28 RBC (4.36-5.78) 10^6/uL 4.12 L Hgb (13.5-17.5) g/dL 12.2 L Hct (40.0-50.0) % 36.4 L MCV (80-95) fL 88.3 MCH (27.0-33.0) pg 29.6 MCHC (32.0-36.0) % 33.5 RDW (11.8-14.1) % 12.5 Plt Count (130-400) 10^3/uL 191 MPV (8.0-11.0) fL 8.7 Immature Gran % 0.6 Neutrophils % 74.5 Lymphocytes % 15.1 Monocytes % 6.5 Eosinophils % 3.1 Basophils % 0.2 Nucleated RBC % % 0 Absolute Neutrophils (1.2-6.7) 10^3/uL 6.16 Absolute Lymphocytes (1.2-3.4) 10^3/uL 1.25 Absolute Monocytes (0.1-0.8) 10^3/uL 0.54 Absolute Eosinophils (0.0-0.7) 10^3/uL 0.26 Absolute Basophils (0.0-0.2) 10^3/uL 0.02 Sodium (136-145) mmol/L 136 Potassium (3.5-5.1) mmol/L 4.1 Chloride (98-107) mmol/L 100 Carbon Dioxide (21.0-32.0) mmol/L 25.7 Anion Gap (3-11) mmol/L 10.3 BUN (7-18) mg/dL 10 Creatinine (0.70-1.30) mg/dL 0.9 Estimated GFR/1.73 m2 (mL/min/1.73m2) >= 60.00 Glucose (74-106) mg/dL 325 H Calcium (8.5-10.1) mg/dL 8.4 L Magnesium (1.8-2.4) mg/dL 1.7 L Total Bilirubin (0.2-1.0) mg/dL 0.2 AST (15-37) U/L 25 ALT (16-63) U/L 40 Alkaline Phosphatase (46-116) U/L 91 Troponin I (<0.06) ng/mL < 0.05 NT-Pro-B Natriuret Pep (<300) pg/mL 136 Total Protein (6.4-8.2) g/dL 7.3 Albumin (3.4-5.0) g/dL 3.1 L Ethyl Alcohol (<3) mg/dL < 3.0
[2021-04-22 14:54] VITALS: BP 128/69; PULSE 73; RESP 22; TEMP 36.8; O2SAT 97
--- NOTE | 2021-04-22 15:15 | RT.EKG_ITS ---
APPROVED REPORT Exam: Resting ECG Reason for Exam: chest pain Patient Location: E HR:74 bpm ECG Measurements Heart Rate 74 AXIS SC 176 P 16 QRSd 104 QRS 32 QT 389 T 58 QTc 432 Conclusion Sinus rhythm...normal P axis, V-rate 60- 99
[2021-04-22 16:12] LABS: Troponin I < 0.05 ng/mL (<0.06)
== END 2021-04-22 16:30 | disposition home or self-care (01) ==
PROVIDERS: Emergency Provider Physician Assistant; PCP Family Medicine
DX: R07.9 Chest pain, unspecified (principal)
CPT/HCPCS: 36415; 80053; 80307; 93005; 99283; 80320; 83735; 83880; 84484; 85025; 93010

== ENCOUNTER 2021-04-24 01:38 | Emergency (ER) | payer MEDICAID, SELFPAY ==
[2021-04-24] VITALS (42 sets, daily range): BP systolic 116–159; BP diastolic 56–93; PULSE 72–88; RESP 13–28; TEMP 36.4; O2SAT 87–99
--- NOTE | 2021-04-24 01:30 | RT.EKG_ITS ---
APPROVED REPORT Exam: Resting ECG Reason for Exam: alice, elisabeth Patient Location: E HR:84 bpm ECG Measurements Heart Rate 84 AXIS ND 170 P 42 QRSd 103 QRS 40 QT 394 T 56 QTc 467 Conclusion Sinus rhythm...normal P axis, V-rate 60- 99 I have reviewed and interpreted ECG and agree with software generated interpretation. There are no significant changes compared to prior EKG performed on 04/22/2021 at 15:24.
--- NOTE | 2021-04-24 01:46 | ED.GENADUL_ITS ---
Discharge Plan Disposition Patient Disposition: HOME Condition: Good Discharge Details Clinical Impression: Chest pain Primary Care Provider: Brandon Foster ED Provider: Dariel Matthews [place] Meds and New Rx's Prescriptions: Continued atenolol 50 MG tablet 1 tab PO DAILY Qty: 90 RF: 3 loratadine [Claritin Liqui-Gel] 10 MG capsule 1 cap PO DAILY Qty: 90 RF: 3 simvastatin 80 MG tablet 80 mg PO DAILY Qty: 90 RF: 3 esomeprazole magnesium [Nexium] 20 mg Capsule,Delayed Release(Dr/Ec) 20 mg PO DAILY RF: 0 multivitamin Tablet 1 tab PO DAILY RF: 0 vitamin A 10,000 unit Capsule 10,000 unit PO DAILY RF: 0 metformin 500 MG tablet 500 mg PO BID RF: 0 benztropine 0.5 MG tablet 0.5 mg PO BID RF: 0 aspirin,buffd-calcium carb-mag 325 MG tablet 325 mg PO DAILY RF: 0 fluoxetine 40 mg capsule 80 mg PO DAILY RF: 0 gabapentin 300 mg capsule 300 mg PO TID RF: 0 lorazepam 1 mg tablet 1 mg PO QID RF: 0 Risperdal Consta 25 mg/2 mL suspension,extended rel recon 25 mg IM USEASDIRECTD RF: 0 lactulose 10 gram/15 mL solution 20 g PO DIRECTED PRNRF: 0 albuterol sulfate 90 mcg/actuation aerosol powdr breath activated 2 inh IH Q6H PRN (Reason: shortness of breath or wheezing) Qty: 1 RF: 0 ellpjlrmav-rjyuikbdmffou-datd 50-325-40 mg capsule 1 cap PO BID RF: 0 Discharge Instructions Additional Instructions: It is likely not productive to return to ED for the same type of chest discomfort that you experienced on a regular basis. You should discuss and follow-up with primary care. If you feel it is related to anxiety follow-up with mental health. You should return to the ED if you develop new or worsening type chest pain, new or worsening shortness of breath, fever. Referrals: Brandon Foster [Primary Care Provider] - Medical Decision Making Patient presenting to ED with complaint of chest pressure and shortness of breath. This is his third visit in 3 days for same. Initially seen by me 2 days ago with full work-up including chest x-ray and D-dimer. Subsequently seen the following day with repeat labs but no chest x-ray. Patient's story remains the same as all previous visits. In the past he has blamed on anxiety. His EKG on arrival is unchanged from previous. I do not feel repeat a full laboratory studies or imaging is warranted tonight. Will get troponin and repeat EKG and troponin and if remains normal we will plan to discharge. He thinks he needs his anxiety medications changed. I have already informed him that this will need to be done through [facility] who are his mental health providers. Both EKGs and both troponins are normal. Patient with no new complaints. He has been stable here. Discussed that he should follow-up with his primary care for further management of this recurrent chest pain. If he thinks it is related to anxiety follow-up with mental health. Return to ED for new pain, fever, shortness of breath. Medical Records Medical records reviewed: Yes I reviewed the patient's medical records. Lab Data Lab results reviewed: Yes I reviewed the patient's lab results. ECG Data Attestation: I personally reviewed and interpreted this ECG (s) as follows: Prior ECG tracings: available for review Interpretation: see EKG HPI General Mode of arrival: EMS . Date/Time Provider Initiated Documentation: 04/24/21 01:46 . Limitations to Documentation: no limitations . Information obtained by: patient, RN notes reviewed and old records reviewed . HPI Narrative: Patient presents to ED by ambulance with complaint of chest pressure and shortness of breath. This is his third visit in 3 days for same. I saw him initially on the . He was seen again on the . Previous to that he has had at least 2-3 visits to the ED per month for same complaint. States that he has had chest pressure for 2 hours now. Feels like he cannot catch his breath. Pain goes into his left side and armpit. This is similar to all previous visits. There is no fever or cough. There is no back pain. There is no abdominal pain. Related Data Home Medications Medication Instructions Recorded Confirmed atenolol 1 tab PO DAILY #90 tab 10/26/14 04/24/21 loratadine [Claritin Liqui-Gel] 1 cap PO DAILY #90 tab 12/16/14 04/24/21 simvastatin 80 mg PO DAILY #90 tab 12/21/14 04/24/21 aspirin,buffd-calcium carb-mag 325 mg PO DAILY 11/18/16 04/24/21 benztropine 0.5 mg PO BID 11/18/16 04/24/21 metformin 500 mg PO BID 11/18/16 04/24/21 Risperdal Consta 25 mg IM USEASDIRECTD 10/03/20 04/24/21 fluoxetine 80 mg PO DAILY 10/03/20 04/24/21 gabapentin 300 mg PO TID 10/03/20 04/24/21 lactulose 20 g PO DIRECTED PRN 10/03/20 04/24/21 lorazepam 1 mg PO QID 10/03/20 04/24/21 esomeprazole magnesium [Nexium] 20 mg PO DAILY 10/09/20 04/24/21 albuterol sulfate 2 inh IH Q6H PRN #1 each 12/15/20 04/24/21 multivitamin 1 tab PO DAILY 01/26/21 04/24/21 vitamin A 10,000 unit PO DAILY 01/26/21 04/24/21 wlxvvabhme-whbinnmixakye-yull 1 cap PO BID 04/24/21 04/24/21 Previous Rx's Medication Instructions Recorded albuterol sulfate 2 inh IH Q6H PRN #1 each 12/15/20 Allergies Allergy/AdvReac Type Severity Reaction Status Date / Time buspirone Allergy Unverified 04/24/21 01:49 paliperidone Allergy Unverified 04/24/21 01:49 paroxetine HCl [From Paxil] Allergy Unverified 04/24/21 01:49 sertraline Allergy Unverified 04/24/21 01:49 ziprasidone [From Geodon] Allergy Other (See Unverified 04/24/21 01:49 Comment) aripiprazole [From Abilify] AdvReac Intermediate INVOLUNTARY Unverified 04/24/21 01:49 MUSCLE MOVEMENTS divalproex sodium AdvReac Intermediate INVOLUNTARY Unverified 04/24/21 01:49 [From Depakote] MUSCLE MOVEMENTS mirtazapine AdvReac Intermediate INVOLUNTARY Unverified 04/24/21 01:49 MUSCLE MOVEMENTS risperidone AdvReac Intermediate INVOLUNTARY Unverified 04/24/21 01:49 MUSCLE MOVEMENTS benztropine mesylate AdvReac elevated Unverified 04/24/21 01:49 [From Cogentin] blood sugars enviornmental Allergy Mild Wheezing Uncoded 04/22/21 12:05 General Stated Complaint: Chest Pain CARLOS: 2 Review of Systems Narrative: As documented in HPI otherwise negative as below. Const: no fever, chills, weakness Resp: no cough, pleuritic pain CV: no diaphoresis, edema, syncope GI: no abdominal pain, nausea, vomiting, diarrhea Neuro: no headache, numbness, focal weakness, confusion [facility] Medical History Arrhythmia, atrial (09/07/14) Dental caries Depression (10/02/14) Diabetes mellitus type 2 in obese (09/09/14) GERD (gastroesophageal reflux disease) (09/07/14) Hypercholesterolemia (09/07/14) Hyperlipidemia Hypertension Hypothyroidism (acquired) (09/07/14) Peripheral neuropathy Schizoaffective disorder (09/07/14) Rebekah Mariscal [facility] 09/2014- [facility] inpatient Surgical History No significant past surgical history Family History Father No problems noted. Other Heart disease Social History Smoking/Tobacco Use Status: Current every day Tobacco Type: cigarettes and pipe Smoking risk assessment performed?: Yes Alcohol Intake: never Drug use: Never Substance use type: does not use Do you feel safe at home: Yes (anxiety) Do you feel safe in your relationship?: Yes Exam Narrative Exam Narrative: Const: Morbidly obese male in [facility]. HEENT: NC/AT. Normal facial exam. Eyes: Normal conjunctiva and sclera. Neck: Supple. Trachea midline. Lungs: Normal respiratory effort. Lungs are clear. Chest NT. Cor: RRR without murmur/gallop. Good radial pulses. GI: Soft. NT/ND. No guarding or rebound. Neuro: A+O x 3. Normal speech, mentation, gait. Cranial nerves II - XII grossly intact. No gross motor or sensory deficit. Ext: No C/C/E. No calf tenderness. Skin: Warm and dry without rash. Course Vital Signs Vital signs: Vital Signs Temperature 97.5 F L 04/24/21 01:39 Pulse 86 04/24/21 01:39 Respiratory Rate 26 H 04/24/21 01:39 Blood Pressure 116/81 04/24/21 01:39 Pulse Oximetry 94 04/24/21 01:39 Temperature 97.5 F L 04/24/21 01:39 Temperature Source Temporal Artery Scan 04/24/21 01:39 Pulse 86 04/24/21 01:39 Respiratory Rate 26 H 04/24/21 01:39 Blood Pressure 116/81 04/24/21 01:39 Blood Pressure Position Supine 04/24/21 01:39 Pulse Oximetry 94 04/24/21 01:39 Oxygen Delivery Method Room Air 04/24/21 01:39 Oxygen Flow Rate 0 04/24/21 01:39 Pain Level 6 04/24/21 01:39
[2021-04-24 02:23] LABS: Troponin I < 0.05 ng/mL (<0.06)
--- NOTE | 2021-04-24 04:15 | RT.EKG_ITS ---
APPROVED REPORT Exam: Resting ECG Reason for Exam: cp Patient Location: E HR:80 bpm ECG Measurements Heart Rate 80 AXIS IA 179 P 49 QRSd 106 QRS 47 QT 412 T 55 QTc 475 Conclusion Sinus rhythm...normal P axis, V-rate 60- 99 I have reviewed and interpreted ECG and agree with software generated interpretation. There are no significant changes compared to prior EKG performed on 04/24/2021 at 01:46.
[2021-04-24 04:53] LABS: Troponin I < 0.05 ng/mL (<0.06)
== END 2021-04-24 05:32 | disposition home or self-care (01) ==
PROVIDERS: Emergency Provider Emergency Medicine; PCP Family Medicine
DX: R07.9 Chest pain, unspecified (principal)
CPT/HCPCS: 36415; 93005; 99283; 84484; 93010; 99282

== ENCOUNTER 2021-05-01 10:53 | Emergency (ER) | payer MEDICAID, SELFPAY ==
[2021-05-01 10:54] VITALS: BP 166/78; PULSE 76; RESP 14; TEMP 36; O2SAT 95
--- NOTE | 2021-05-01 11:00 | ED.GENADUL_ITS ---
Discharge Plan Disposition Patient Disposition: HOME Condition: Improving Discharge Details Clinical Impression: Migraine Primary Care Provider: Brandon Foster ED Provider: [place] Viera Home Meds and New Rx's Prescriptions: Continued Emgality Pen 120 mg/mL pen injector 240 mg subcut ONCE Qty: 2 RF: 0 prochlorperazine maleate 10 mg tablet 10 mg PO Q8H PRN (Reason: nausea and vomiting, headache) Qty: 60 RF: 5 atenolol 50 MG tablet 1 tab PO DAILY Qty: 90 RF: 3 loratadine [Claritin Liqui-Gel] 10 MG capsule 1 cap PO DAILY Qty: 90 RF: 3 simvastatin 80 MG tablet 80 mg PO DAILY Qty: 90 RF: 3 esomeprazole magnesium [Nexium] 20 mg Capsule,Delayed Release(Dr/Ec) 20 mg PO DAILY RF: 0 multivitamin Tablet 1 tab PO DAILY RF: 0 vitamin A 10,000 unit Capsule 10,000 unit PO DAILY RF: 0 metformin 500 MG tablet 500 mg PO BID RF: 0 benztropine 0.5 MG tablet 0.5 mg PO BID RF: 0 aspirin,buffd-calcium carb-mag 325 MG tablet 325 mg PO DAILY RF: 0 fluoxetine 40 mg capsule 80 mg PO DAILY RF: 0 gabapentin 300 mg capsule 300 mg PO TID RF: 0 lorazepam 1 mg tablet 1 mg PO QID RF: 0 Risperdal Consta 25 mg/2 mL suspension,extended rel recon 25 mg IM USEASDIRECTD RF: 0 lactulose 10 gram/15 mL solution 20 g PO DIRECTED PRNRF: 0 albuterol sulfate 90 mcg/actuation aerosol powdr breath activated 2 inh IH Q6H PRN (Reason: shortness of breath or wheezing) Qty: 1 RF: 0 cevnyxayhk-ashafujdfblpx-impk 50-325-40 mg capsule 1 cap PO BID RF: 0 Discharge Instructions Instructions: Migraine Headache (ED) Additional Instructions: Drink plenty of fluids and get plenty of rest. Alternate tylenol and motrin as needed and directed for pain. Continue to use your medications for your migraine headaches prescribed to you by Dr. Alexis. Follow-up with your primary care doctor regarding authorization of your headache injection medication so you can start taking this as soon as possible. Follow-up with your primary care doctor in 1 week. Follow-up with Dr. Alexis if your headaches persist or worsen. Return to the emergency department with any worsening or new concerning symptoms. Discharge Data Discharge Date/Time-TO BE ENTERED AT DEPARTURE: 05/01/21 13:55 Discharge Physician: [place] Viera Medical Decision Making 56yo M w/ h/o anxiety, depression, diabetes, migraine, who presents to the ED w/ a c/o migraine headache for the past 90 minutes. Suspect migraine as he describes migraine type headache w/ photophobia and phonophobia and nausea. History and presentation not consistent with meningitis, encephalitis or CVA as he has no meningeal signs or focal deficits. Will place an IV, bolus IV fluids, give a dose of IV Toradol, Compazine, Benadryl, Decadron and reassess. Do not see an indication for labs or imaging at this time but will reassess. Patient reassessed and he states he feels much better and feels good to go home. He was able to eat and ambulate and denied any acute complaints. He is advised to follow-up with his PCP and neurology. Usual and customary return precautions given prior to discharge. Medical Records Medical records reviewed: Yes I reviewed the patient's medical records. HPI General Mode of arrival: ambulatory . Date/Time Provider Initiated Documentation: 05/01/21 11:11 . Limitations to Documentation: no limitations . Information obtained by: patient . HPI Narrative: Pt is a 56yo M with a history of migraines who presents to the ED w/ a c/o migraine type headache for the past 90 minutes. States the headache is frontal, dull and currently 7/10. He took 2 tabs of 200 mg Advil this morning without relief. He saw Dr. Alexis in the office 4 days ago for intermittent headaches for the past few weeks and was diagnosed with migraine headache and was prescribed Compazine and galcanezumab injection. He states he started the Compazine which he last took this morning without significant relief but states the injection requires authorization from his PCP. He admits to some sensitivity to light but more sensitivity to noise. He also admits to nausea but denies any vomiting. He denies any fever, sore throat, new medications, extremity weakness or numbness Related Data Home Medications Medication Instructions Recorded Confirmed atenolol 1 tab PO DAILY #90 tab 10/26/14 05/01/21 loratadine [Claritin Liqui-Gel] 1 cap PO DAILY #90 tab 12/16/14 05/01/21 simvastatin 80 mg PO DAILY #90 tab 12/21/14 05/01/21 aspirin,buffd-calcium carb-mag 325 mg PO DAILY 11/18/16 05/01/21 benztropine 0.5 mg PO BID 11/18/16 05/01/21 metformin 500 mg PO BID 11/18/16 05/01/21 Risperdal Consta 25 mg IM USEASDIRECTD 10/03/20 05/01/21 fluoxetine 80 mg PO DAILY 10/03/20 05/01/21 gabapentin 300 mg PO TID 10/03/20 05/01/21 lactulose 20 g PO DIRECTED PRN 10/03/20 05/01/21 lorazepam 1 mg PO QID 10/03/20 05/01/21 esomeprazole magnesium [Nexium] 20 mg PO DAILY 10/09/20 05/01/21 albuterol sulfate 2 inh IH Q6H PRN #1 each 12/15/20 05/01/21 multivitamin 1 tab PO DAILY 01/26/21 05/01/21 vitamin A 10,000 unit PO DAILY 01/26/21 05/01/21 fsbmtntbeb-qdnfccqkftrqs-yheh 1 cap PO BID 04/24/21 05/01/21 galcanezumab-gnlm 120 mg/mL 240 mg SUBCUT ONCE #2 ml 04/27/21 05/01/21 subcutaneous pen injector prochlorperazine maleate 10 mg 10 mg PO Q8H PRN #60 tab 04/27/21 05/01/21 tablet Previous Rx's Medication Instructions Recorded albuterol sulfate 2 inh IH Q6H PRN #1 each 12/15/20 galcanezumab-gnlm 120 mg/mL 240 mg SUBCUT ONCE #2 ml 04/27/21 subcutaneous pen injector prochlorperazine maleate 10 mg 10 mg PO Q8H PRN #60 tab 04/27/21 tablet Allergies Allergy/AdvReac Type Severity Reaction Status Date / Time buspirone Allergy Unverified 05/01/21 10:58 paliperidone Allergy Unverified 05/01/21 10:58 paroxetine HCl [From Paxil] Allergy Unverified 05/01/21 10:58 sertraline Allergy Unverified 05/01/21 10:58 ziprasidone [From Geodon] Allergy Other (See Unverified 05/01/21 10:58 Comment) aripiprazole [From Abilify] AdvReac Intermediate INVOLUNTARY Unverified 05/01/21 10:58 MUSCLE MOVEMENTS divalproex sodium AdvReac Intermediate INVOLUNTARY Unverified 05/01/21 10:58 [From Depakote] MUSCLE MOVEMENTS mirtazapine AdvReac Intermediate INVOLUNTARY Unverified 04/27/21 13:55 MUSCLE MOVEMENTS risperidone AdvReac Intermediate INVOLUNTARY Unverified 05/01/21 10:58 MUSCLE MOVEMENTS benztropine mesylate AdvReac elevated Unverified 04/27/21 13:55 [From Cogentin] blood sugars enviornmental Allergy Mild Wheezing Uncoded 04/27/21 13:55 General Stated Complaint: Headache CARLOS: 3 Review of Systems All systems reviewed & are unremarkable except as noted in HPI and below Constitutional Constitutional: Reports as per HPI, Denies chills, Denies fever(s) and Reports headache(s) Eyes Eyes: Denies blurry vision ENT Ears, Nose, Mouth, and Throat: Denies dizziness, Reports headache(s), Denies sore throat and Denies throat swelling Cardiovascular Cardiovascular: Denies chest pain and Denies dyspnea Respiratory Respiratory: Denies cough and Denies dyspnea Gastrointestinal Gastrointestinal: Denies abdominal pain, Denies diarrhea and Denies vomiting Genitourinary Genitourinary: Denies hematuria and Denies dysuria Musculoskeletal Musculoskeletal: Denies back pain and Denies numbness Integumentary/Breasts Skin/Breast: Denies lesions and Denies rash Neurologic Neurologic: Denies dizziness, Reports headache(s), Denies localized weakness and Denies numbness Allergic/Immunologic Allergic/Immunologic: Denies throat swelling [facility] Medical History Anxiety Arrhythmia, atrial (09/07/14) Dental caries Depression (10/02/14) Diabetes mellitus type 2 in obese (09/09/14) GERD (gastroesophageal reflux disease) (09/07/14) Hypercholesterolemia (09/07/14) Hyperlipidemia Hypertension Hypothyroidism (acquired) (09/07/14) Mitral valve prolapse Peripheral neuropathy Schizoaffective disorder (09/07/14) Rebekah Mariscal [facility] 09/2014- COUNTS INCLUDE 234 BEDS AT THE [facility] inpatient Surgical History No significant past surgical history Family History Other Heart disease Social History Smoking/Tobacco Use Status: Current every day Tobacco Type: cigarettes Smoking packs per day: 0.5 Smoking cigarettes per day: 10.0 and pipe Smoking risk assessment performed?: Yes Alcohol Intake: never Drug use: Never Substance use type: does not use Household members: none Housing: house Number of Children: 2 number of grandchildren: 1 current occupation: Unemployed/Leave of absence What type of physical activity do you participate in: other Details: weight lifting Seatbelt use: always Do you feel safe at home: Yes (anxiety) Do you feel safe in your relationship?: Yes Exam Const General: cooperative and no acute distress HENMT Head: normal to inspection Ears: hearing grossly normal bilaterally, external ears normal and TM's normal bilaterally Face and sinus: normal facial exam Mouth: oral mucosae normal and moist mucous membranes Eyes General: appearance normal, both eyes and all related structures Pupils: PERRL EOM: EOM intact bilaterally Neck Neck: normal visual inspection and No submandibular swelling Lymphatic: no lymphadenopathy noted Chest Chest: normal inspection of the chest and no tenderness Resp Effort & Inspection: normal respiratory effort and able to speak in complete sentences Auscultation: clear to auscultation bilaterally Cardio Rate: regular rate Rhythm: regular rhythm GI Inspection: normal to inspection Palpation: soft, not firm, not rigid and nontender Auscultation: normal bowel sounds Skin General skin exam: no rashes or lesions noted Neuro General: patient alert, patient awake, patient oriented x3, moves all extremities, no meningeal signs and no focal motor deficits Cranial Nerves: CN's II-XI intact bilaterally Cognition: normal cognition Speech: speech normal Motor: muscle tone normal throughout Sensory Exam: no sensory deficits noted Extrem General: normal to inspection, full ROM, capillary refill normal, no calf tenderness bilaterally and no edema Psych Appearance: grossly normal Mental Status: mental status grossly normal Speech and Movement: speech and movement normal Affect: normal affect Course Vital Signs Vital signs: Vital Signs Temperature 96.8 F L 05/01/21 10:54 Pulse 76 05/01/21 10:54 Respiratory Rate 14 05/01/21 10:54 Blood Pressure 166/78 H 05/01/21 10:54 Pulse Oximetry 95 05/01/21 10:54 Temperature 96.8 F L 05/01/21 10:54 Temperature Source Skin 05/01/21 10:54 Pulse 76 05/01/21 10:54 Respiratory Rate 14 05/01/21 10:54 Blood Pressure 166/78 H 05/01/21 10:54 Blood Pressure Position Sitting 05/01/21 10:54 Pulse Oximetry 95 05/01/21 10:54 Oxygen Delivery Method Room Air 05/01/21 10:54 Oxygen Flow Rate 0 05/01/21 10:54 Pain Level 7 05/01/21 10:54
[2021-05-01] MEDS: Normal Saline 1,000 ML 1000 ML IV (12:18)
[2021-05-01] MEDS: Prochlorperazine 10 MG/2 ML VIAL IVP (12:19)
[2021-05-01] MEDS: diphenhydrAMINE 50 MG/ML VIAL 25 MG IVP (12:19)
[2021-05-01] MEDS: Dexamethasone 10 MG/ML VIAL IVP (12:19)
[2021-05-01] MEDS: Ketorolac 15 MG/ML VIAL IVP (12:19)
[2021-05-01 13:51] VITALS: BP 136/71; PULSE 71; RESP 18; TEMP 36.7; O2SAT 95
== END 2021-05-01 13:55 | disposition home or self-care (01) ==
PROVIDERS: Emergency Provider Physician Assistant; PCP Family Medicine
DX: G43.809 Other migraine, not intractable, without status migrainosus (principal)
CPT/HCPCS: 96361; 96374; 96375; 99284; J0780; J1100; J1200; J1885

== ENCOUNTER 2021-11-18 11:13 | Emergency (ER) | payer MEDICAID, SELFPAY ==
[2021-11-18] VITALS (7 sets, daily range): BP systolic 111–158; BP diastolic 56–93; PULSE 76–97; RESP 13–19; TEMP 36.5; O2SAT 94–98
--- NOTE | 2021-11-18 11:14 | W.ED.GENAD ---
Discharge Plan Disposition Patient Disposition: HOME Condition: Improving Discharge Details Clinical Impression: Chest pain Primary Care Provider: Orquidea Portillo ED Provider: [place] Viera Home Meds and New Rx's Prescriptions: Continued prochlorperazine maleate 10 mg tablet 10 mg PO Q8H PRN (Reason: nausea and vomiting, headache) Qty: 60 RF: 5 metformin 850 mg tablet 850 mg PO BID Qty: 180 RF: 3 chlorhexidine gluconate [Peridex] 0.12 % mouthwash 15 ml mucous membrane BID Qty: 473 RF: 5 loratadine [Claritin Liqui-Gel] 10 MG capsule 1 cap PO DAILY Qty: 90 RF: 3 Emgality Pen 120 mg/mL pen injector 120 mg subcut QMONTH Qty: 1 RF: 11 atorvastatin 40 mg tablet 40 mg PO DAILY Qty: 90 RF: 3 atenolol 25 mg tablet 75 mg PO DAILY Qty: 270 RF: 3 atenolol [Tenormin] 25 mg tablet 75 mg PO DAILY Qty: 90 RF: 11 gabapentin 300 mg capsule 300 mg PO BID Qty: 180 RF: 0 esomeprazole magnesium [Nexium] 20 mg Capsule,Delayed Release(Dr/Ec) 20 mg PO DAILY RF: 0 multivitamin Tablet 1 tab PO DAILY RF: 0 vitamin A 10,000 unit Capsule 10,000 unit PO DAILY RF: 0 benztropine 0.5 MG tablet 0.5 mg PO BID RF: 0 aspirin,buffd-calcium carb-mag 325 MG tablet 325 mg PO DAILY RF: 0 fluoxetine 40 mg capsule 80 mg PO DAILY RF: 0 Risperdal Consta 25 mg/2 mL suspension,extended rel recon 25 mg IM USEASDIRECTD RF: 0 lactulose 10 gram/15 mL solution 20 g PO DIRECTED PRNRF: 0 lorazepam 1 mg tablet 1 mg PO QID RF: 0 albuterol sulfate 90 mcg/actuation aerosol powdr breath activated 2 inh IH Q6H PRN (Reason: shortness of breath or wheezing) Qty: 1 RF: 0 Discharge Instructions Instructions: Chest Pain (ED) Additional Instructions: Drink plenty of fluids and get plenty of rest. Continue your regular medications as directed. Call [facility] at [phone] with any concerns. Follow-up with Dr. Zambrano this week for reevaluation and for continued medication management. Follow-up with your primary care doctor in 1 week for reevaluation and for consideration for referral for stress test if your symptoms do not improve or worsen. Return to the emergency department with any worsening or new concerning symptoms. Discharge Data Discharge Date/Time-TO BE ENTERED AT DEPARTURE: 11/18/21 15:47 Discharge Physician: [place] Viera Medical Decision Making 1120 -- 56-year-old male with a history of obesity, anxiety, depression, migraine, GERD, hypothyroidism, hypertension, hyperlipidemia presents for chest pain and shortness of breath that started while waiting to receive his psychiatric meds with [facility] today. He states his pain is improved after taking his ativan this morning. Blood pressure mildly hypertensive. Heart rate within normal limits. EKG notes a rate of 94, sinus, no STEMI nondiagnostic. He has reproducible left-sided chest wall tenderness. Patient has been seen in the ED 17 times in the last year, of which 15 times were related to chest pain or anxiety. Patient states he would like to switch his Ativan to Klonopin for his anxiety. Patient is followed by Dr. Zambrano for his medications and advised that he discuss with him any medication changes as he is already on Ativan 1 mg in the morning and afternoon and 2 mg at night. Differential diagnosis includes muscle strain, anxiety, costochondritis, etc. History and presentation does not appear consistent with PE, dissection, and less likely acs as pain is similar to his chronic chest pain and relieved with ativan today. 1230 -- Labs and imaging reviewed. White blood cell count normal at 8. Hemoglobin 12. Troponin negative. Lipase within normal limits. D-dimer slightly elevated above age-adjusted cut off. Will obtain CT chest. Patient requested to speak with [facility] who spoke with him at bedside with plan for him to be evaluated by Dr. Zambrano this week for medication management. Patient advised to call the warm line at [phone] with any concerns. 1400 -- CT chest negative. 1520 -- Repeat troponin negative. Repeat EKG unchanged. Patient reassessed and his symptoms are now resolved and he feels comfortable going home. Heart score 3 which is low risk. Advised to follow up with the primary care doctor for re-evaluation. Usual and customary return precautions given prior to discharge. Medical Records Medical records reviewed: Yes I reviewed the patient's medical records. Imaging Data Radiologic Study: Radiologist's impression: XR CHEST 2V PA LATERAL CLINICAL HISTORY: chest pain, sob, r/o acute disease. TECHNIQUE: 2D digital imaging was performed. COMPARISON: CR,XR XR CHEST 2V PA LATERAL from 04/21/2021 FINDINGS: Chest leads in place Heart size is normal. The mediastinum is not widened. Lungs are clear. No infiltrates nor pleural effusions. IMPRESSION: No acute pulmonary findings.No significant change to 04/21/2021 CT CHEST PE CTA CLINICAL HISTORY: L sided chest pain, r/o PE. TECHNIQUE: Imaging Protocol: CT angiography of the chest was performed using pulmonary embolus protocol. Multi planar reconstructions were performed. CONTRAST MATERIAL: Intravenous: Omnipaque 350 Contrast volume: 100 cc COMPARISON: CT CT THORAX CTA from 10/12/2020 CR XR CHEST 2V PA LATERAL from 11/18/2021 FINDINGS: CHEST: PULMONARY ARTERIES: There are no intraluminal filling defects to suggest acute pulmonary emboli. LUNGS: Mild increased dependent markings in the lung herr. There are no air bronchograms.. No focal findings in the trachea and mainstem bronchi. No pleural effusions. MEDIASTINUM: There is no hilar nor mediastinal adenopathy. Visualized thyroid unremarkable. CARDIAC: Heart size is upper normal. There is no pericardial effusion.Caliber of the thoracic aorta is within normal limits. There is no significant shift of the interventricular septum. PARTIALLY VISUALIZED UPPERMOST ABDOMEN: No obvious findings OSSEOUS: No significant osseous lesions.. IMPRESSION: 1. No evidence of acute pulmonary emboli. No evidence of pulmonary infarction.No pleural effusions. 2. No confluent infiltrates. No intrathoracic adenopathy. Lab Data Lab results reviewed: Yes I reviewed the patient's lab results. Labs: Laboratory Tests Range/Units 11/18/21 11/18/21 11/18/21 11:10 11:10 11:10 WBC (4.4-10.8) 10^3/uL 8.50 RBC (4.36-5.78) 10^6/uL 4.18 L Hgb (13.5-17.5) g/dL 12.5 L Hct (40.0-50.0) % 37.1 L MCV (80-95) fL 88.8 MCH (27.0-33.0) pg 29.9 MCHC (32.0-36.0) % 33.7 RDW (11.8-14.1) % 11.9 Plt Count (130-400) 10^3/uL 213 MPV (8.0-11.0) fL 8.2 Immature Gran % 0.6 Neutrophils % 69.6 Lymphocytes % 21.8 Monocytes % 4.9 Eosinophils % 2.9 Basophils % 0.2 Nucleated RBC % % 0 Absolute Neutrophils (1.2-6.7) 10^3/uL 5.91 Absolute Lymphocytes (1.2-3.4) 10^3/uL 1.85 Absolute Monocytes (0.1-0.8) 10^3/uL 0.42 Absolute Eosinophils (0.0-0.7) 10^3/uL 0.25 Absolute Basophils (0.0-0.2) 10^3/uL 0.02 D-Dimer (<500) ng/mlFEU Sodium (136-145) mmol/L 132 L Potassium (3.5-5.1) mmol/L 4.2 Chloride (98-107) mmol/L 97 L Carbon Dioxide (21.0-32.0) mmol/L 25.9 Anion Gap (3-11) mmol/L 9.1 BUN (7-18) mg/dL 10 Creatinine (0.70-1.30) mg/dL 0.9 Estimated GFR/1.73 m2 (mL/min/1.73m2) >= 60.00 Glucose (74-106) mg/dL 263 H Calcium (8.5-10.1) mg/dL 9.0 Magnesium (1.8-2.4) mg/dL 1.5 L Total Bilirubin (0.2-1.0) mg/dL 0.4 AST (15-37) U/L 39 H ALT (16-63) U/L 62 Alkaline Phosphatase (46-116) U/L 115 Troponin I (<or=60) ng/L < 50 Total Protein (6.4-8.2) g/dL 8.1 Albumin (3.4-5.0) g/dL 3.2 L Lipase (73-393) U/L 23 Range/Units 11/18/21 11/18/21 11/18/21 12:06 14:00 14:41 WBC (4.4-10.8) 10^3/uL RBC (4.36-5.78) 10^6/uL Hgb (13.5-17.5) g/dL Hct (40.0-50.0) % MCV (80-95) fL MCH (27.0-33.0) pg MCHC (32.0-36.0) % RDW (11.8-14.1) % Plt Count (130-400) 10^3/uL MPV (8.0-11.0) fL Immature Gran % Neutrophils % Lymphocytes % Monocytes % Eosinophils % Basophils % Nucleated RBC % % Absolute Neutrophils (1.2-6.7) 10^3/uL Absolute Lymphocytes (1.2-3.4) 10^3/uL Absolute Monocytes (0.1-0.8) 10^3/uL Absolute Eosinophils (0.0-0.7) 10^3/uL Absolute Basophils (0.0-0.2) 10^3/uL D-Dimer (<500) ng/mlFEU 587 H Sodium (136-145) mmol/L Potassium (3.5-5.1) mmol/L Chloride (98-107) mmol/L Carbon Dioxide (21.0-32.0) mmol/L Anion Gap (3-11) mmol/L BUN (7-18) mg/dL Creatinine (0.70-1.30) mg/dL Estimated GFR/1.73 m2 (mL/min/1.73m2) Glucose (74-106) mg/dL Calcium (8.5-10.1) mg/dL Magnesium (1.8-2.4) mg/dL Total Bilirubin (0.2-1.0) mg/dL AST (15-37) U/L ALT (16-63) U/L Alkaline Phosphatase (46-116) U/L Troponin I (<or=60) ng/L Cancelled < 50 Total Protein (6.4-8.2) g/dL Albumin (3.4-5.0) g/dL Lipase (73-393) U/L ECG Data Attestation: I personally reviewed and interpreted this ECG (s) as follows: Interpretation: #1 -- rate of 94, sinus, no acute ST elevation or depression. #2 -- rate of 77, sinus, no acute ST elevation or depression. HPI General Date/Time Provider Initiated Documentation: 11/18/21 11:29. HPI Narrative: Patient is a 56-year-old male with a history of obesity, hypertension, hyperlipidemia, GERD, diabetes, schizoaffective disorder, anxiety, depression who presents for chest pain that started this morning while standing and waiting to receive his psychiatric meds per neurology. He services. Patient states he frequently has GERD and anxiety and states that he is unsure if his symptoms are due to this. He states he does have frequent chest pain for which he has been seen in the ED many times before and states this does feel similar to that. He states he was standing at home waiting to receive his medications when he felt left-sided chest pressure. He admitted to associated shortness of breath, nausea and dizziness with this. He states he took his regular medications including his Ativan and the pain improved. He states the pain was 7/10 and is now 4/10. He states he is wondering if we are able to change his Ativan to Klonopin to help with his anxiety. He denies any fever, cough, vomiting or diarrhea. Related Data Home Medications Medication Instructions Recorded Confirmed loratadine [Claritin Liqui-Gel] 1 cap PO DAILY #90 tab 12/16/14 11/18/21 aspirin,buffd-calcium carb-mag 325 mg PO DAILY 11/18/16 11/18/21 benztropine 0.5 mg PO BID 11/18/16 11/18/21 Risperdal Consta 25 mg IM USEASDIRECTD 10/03/20 11/18/21 fluoxetine 80 mg PO DAILY 10/03/20 11/18/21 lactulose 20 g PO DIRECTED PRN 10/03/20 11/18/21 esomeprazole magnesium [Nexium] 20 mg PO DAILY 10/09/20 11/18/21 albuterol sulfate 2 inh IH Q6H PRN #1 each 12/15/20 11/18/21 multivitamin 1 tab PO DAILY 01/26/21 11/18/21 vitamin A 10,000 unit PO DAILY 01/26/21 11/18/21 prochlorperazine maleate 10 mg 10 mg PO Q8H PRN #60 tab 04/27/21 11/18/21 tablet lorazepam 1 mg tablet 1 mg PO QID 07/05/21 11/18/21 metformin 850 mg tablet 850 mg PO BID #180 tab-cap 07/05/21 11/18/21 galcanezumab-gnlm 120 mg/mL 120 mg SUBCUT QMONTH #1 ml 07/12/21 11/18/21 subcutaneous pen injector atenolol 25 mg tablet 75 mg PO DAILY #270 tab 07/19/21 11/18/21 atorvastatin 40 mg tablet 40 mg PO DAILY #90 tab 07/19/21 11/18/21 Tenormin 25 mg tablet 75 mg PO DAILY #90 tab NS 08/02/21 11/18/21 chlorhexidine gluconate 0.12 % 15 ml MUCOUS MEMBRANE BID #473 ml 09/06/21 11/18/21 mouthwash gabapentin 300 mg capsule 300 mg PO BID #180 cap 09/28/21 11/18/21 Previous Rx's Medication Instructions Recorded albuterol sulfate 2 inh IH Q6H PRN #1 each 12/15/20 prochlorperazine maleate 10 mg 10 mg PO Q8H PRN #60 tab 04/27/21 tablet metformin 850 mg tablet 850 mg PO BID #180 tab-cap 07/05/21 galcanezumab-gnlm 120 mg/mL 120 mg SUBCUT QMONTH #1 ml 07/12/21 subcutaneous pen injector atenolol 25 mg tablet 75 mg PO DAILY #270 tab 07/19/21 atorvastatin 40 mg tablet 40 mg PO DAILY #90 tab 07/19/21 Tenormin 25 mg tablet 75 mg PO DAILY #90 tab NS 08/02/21 chlorhexidine gluconate 0.12 % 15 ml MUCOUS MEMBRANE BID #473 ml 09/06/21 mouthwash gabapentin 300 mg capsule 300 mg PO BID #180 cap 09/28/21 Allergies Allergy/AdvReac Type Severity Reaction Status Date / Time buspirone Allergy Verified 11/18/21 11:15 paliperidone Allergy Verified 11/18/21 11:15 paroxetine HCl [From Paxil] Allergy Verified 11/18/21 11:15 sertraline Allergy Verified 11/18/21 11:15 ziprasidone [From Geodon] Allergy Other (See Verified 11/18/21 11:15 Comment) aripiprazole [From Abilify] AdvReac Intermediate INVOLUNTARY Verified 11/18/21 11:15 MUSCLE MOVEMENTS divalproex sodium AdvReac Intermediate INVOLUNTARY Verified 11/18/21 11:15 [From Depakote] MUSCLE MOVEMENTS mirtazapine AdvReac Intermediate INVOLUNTARY Verified 11/18/21 11:15 MUSCLE MOVEMENTS risperidone AdvReac Intermediate INVOLUNTARY Verified 11/18/21 11:15 MUSCLE MOVEMENTS benztropine mesylate AdvReac elevated Verified 11/18/21 11:15 [From Cogentin] blood sugars enviornmental Allergy Mild Wheezing Uncoded 11/18/21 11:15 General CARLOS: 3 Review of Systems All systems reviewed & are unremarkable except as noted in HPI and below Constitutional Constitutional: Reports as per HPI, Denies chills and Denies fever(s) Eyes Eyes: Denies blurry vision ENT Ears, Nose, Mouth, and Throat: Denies dizziness, Denies sore throat and Denies throat swelling Cardiovascular Cardiovascular: Reports chest pain and Denies dyspnea Respiratory Respiratory: Denies cough and Denies dyspnea Gastrointestinal Gastrointestinal: Denies abdominal pain, Denies diarrhea and Denies vomiting Genitourinary Genitourinary: Denies hematuria and Denies dysuria Musculoskeletal Musculoskeletal: Denies back pain and Denies numbness Integumentary/Breasts Skin/Breast: Denies lesions and Denies rash Neurologic Neurologic: Denies dizziness, Denies localized weakness and Denies numbness Allergic/Immunologic Allergic/Immunologic: Denies throat swelling PFSH All Active Problems (Updated 11/18/21 @ 15:15 by [place] Viera DO) Chest pain (Acute) Drug-seeking behavior (Chronic ~09/20/21) Requests Ritalin from providers Broken teeth (Chronic) Anemia (Chronic) Hiatal hernia (Chronic) protonix not effective, nexium works better 02/12/18 Hypertension (Chronic) pt requests brand name Tenormin vs atenolol 04/02/18 Allergic rhinitis (Chronic) lortadine Tobacco use disorder (Chronic) started 2013 1.5 ppd, pipe 1-7/week Poor dentition (Acute) Obesity (Chronic) BMI 52 Migraine (Chronic) Migraine headache without aura (Acute) Chronic headache (Acute) Chest pain (Acute) Left-sided chest wall pain (Acute) Arrhythmia, atrial (Acute 09/07/14) Depression (Acute 10/02/14) Diabetes mellitus type 2 in obese (Acute 09/09/14) GERD (gastroesophageal reflux disease) (Acute 09/07/14) Hypercholesterolemia (Chronic 09/07/14) pt insists on lipitor 80 mg due to family hx Hypothyroidism (acquired) (Acute 09/07/14) Schizoaffective disorder (Acute 09/07/14) Rebekah Mariscal [facility] 09/2014- [facility] inpatient Medical History Anxiety Arrhythmia, atrial (09/07/14) Dental caries Depression (10/02/14) Diabetes mellitus type 2 in obese (09/09/14) GERD (gastroesophageal reflux disease) (09/07/14) Hiatal hernia protonix not effective, nexium works better 02/12/18 Hypercholesterolemia (09/07/14) pt insists on lipitor 80 mg due to family hx Hyperlipidemia Hypertension pt requests brand name Tenormin vs atenolol 04/02/18 Hypothyroidism (acquired) (09/07/14) Mitral valve prolapse Peripheral neuropathy Schizoaffective disorder (09/07/14) Rebekah Mariscal [facility] 09/2014- [facility] inpatient Trigeminal neuralgia Surgical History No significant past surgical history Family History Father Heart disease DE Social History (Updated 07/05/21 @ 10:14 by Dalila Batres RN) Smoking/Tobacco Use Status: Former Tobacco Use Smoking risk assessment performed?: Yes Alcohol Intake: never Drug use: Never Substance use type: does not use Adopted: No Caregiver/Support person: No Foster care: No Household members: none Housing: apartment Number of Children: 2 number of grandchildren: 1 Communication Needs: Corrective Lenses Education Level: college Do you need help understanding health information?: Always current occupation: Unemployed/Leave of absence Sexually active: No Do you think of yourself as: Decline to provide Current gender identity: male What type of physical activity do you participate in: other Details: weight lifting Frequency: 3-4 times per week Magalie/Sabianist: Mu-Ism Seatbelt use: always Drive intox or ride w/intox driver license technician: No Working smoke detector in home: Yes Fire extinguisher in home: Yes Carbon monox detector in home: Yes Do you feel safe at home: Yes (anxiety) Do you feel safe in your relationship?: Yes Exam Const General: cooperative and no acute distress Nutritional Appearance: obese morbidly obese Orientation: alert, awake and oriented x3 HENMT Head: normal to inspection Face and sinus: normal facial exam Eyes General: appearance normal, both eyes and all related structures Pupils: PERRL EOM: EOM intact bilaterally Neck Neck: normal visual inspection and No submandibular swelling Lymphatic: no lymphadenopathy noted Chest Chest: normal inspection of the chest and no tenderness Resp Effort & Inspection: normal respiratory effort and able to speak in complete sentences Auscultation: clear to auscultation bilaterally Cardio Rate: regular rate Rhythm: regular rhythm GI Inspection: normal to inspection Palpation: soft, not firm, not rigid and nontender Auscultation: normal bowel sounds Skin General skin exam: no rashes or lesions noted Neuro General: patient alert, patient awake and patient oriented x3 Cognition: normal cognition Speech: speech normal Motor: muscle tone normal throughout Sensory Exam: no sensory deficits noted Extrem General: normal to inspection, full ROM, capillary refill normal, no calf tenderness bilaterally and no edema Psych Appearance: grossly normal Mental Status: mental status grossly normal Speech and Movement: speech and movement normal Affect: normal affect
[2021-11-18 11:25] LABS: Abs Immature Grans 0.05 10^3/uL (0.0-0.06); Absolute Basophil Count 0.02 10^3/uL (0.0-0.2); Absolute Eosinophil Count 0.25 10^3/uL (0.0-0.7); Absolute Lymphocyte Count 1.85 10^3/uL (1.2-3.4); Absolute Monocyte Count 0.42 10^3/uL (0.1-0.8); Absolute Neutrophil Count 5.91 10^3/uL (1.2-6.7); Basophils % 0.2; Eosinophils % 2.9; HCT 37.1 % (40.0-50.0); HGB 12.5 g/dL (13.5-17.5); Immature Grans % 0.6; Lymphocytes % 21.8; MCH 29.9 pg (27.0-33.0); MCHC 33.7 % (32.0-36.0); MCV 88.8 fL (80-95); MPV 8.2 fL (8.0-11.0); Monocytes % 4.9; Neutrophils % 69.6; Nucleated RBC 0 %; Platelet Count 213 10^3/uL (130-400); RBC 4.18 10^6/uL (4.36-5.78); RDW 11.9 % (11.8-14.1); RDW-SD 38.3 fL
[2021-11-18 12:23] LABS: Lipase 23 U/L (73-393)
[2021-11-18 12:40] LABS: ALT 62 U/L (16-63); AST 39 U/L (15-37); Albumin 3.2 g/dL (3.4-5.0); Alkaline Phosphatase 115 U/L (46-116); Anion Gap 9.1 mmol/L (3-11); BUN 10 mg/dL (7-18); Bilirubin, Total 0.4 mg/dL (0.2-1.0); CO2 25.9 mmol/L (21.0-32.0); CREATININE 0.9 mg/dL (0.70-1.30); Chloride 97 mmol/L (98-107); Glucose 263 mg/dL (74-106); Magnesium 1.5 mg/dL (1.8-2.4); Potassium 4.2 mmol/L (3.5-5.1); Sodium 132 mmol/L (136-145); Total Protein 8.1 g/dL (6.4-8.2); Troponin I < 50 ng/L (<or=60)
--- NOTE | 2021-11-18 12:45 | DI.CT_ITS ---
Exam(s) CT CHEST PE CTA EXAM: CT CHEST PE CTA CLINICAL HISTORY: L sided chest pain, r/o PE. TECHNIQUE: Imaging Protocol: CT angiography of the chest was performed using pulmonary embolus ely col. Multi planar reconstructions were performed. CONTRAST MATERIAL: Intravenous: Omnipaque 350 Contrast volume: 100 cc COMPARISON: CT CT THORAX CTA from 10/12/2020 CR XR CHEST 2V PA LATERAL from 11/18/2021 FINDINGS: CHEST: PULMONARY ARTERIES: There are no intraluminal filling defects to suggest acute pulmonary emboli. LUNGS: Mild increased dependent markings in the lung herr. There are no air bronchograms.. No foc al findings in the trachea and mainstem bronchi. No pleural effusions. MEDIASTINUM: There is no hilar nor mediastinal adenopathy. Visualized thyroid unremarkable. CARDIAC: Heart size is upper normal. There is no pericardial effusion.Caliber of the thoracic aorta is within normal limits. There is no significant shift of the interventricular septum. PARTIALLY VISUALIZED UPPERMOST ABDOMEN: No obvious findings OSSEOUS: No significant osseous lesions.. IMPRESSION: 1. No evidence of acute pulmonary emboli. No evidence of pulmonary infarction.No pleural effusions. 2. No confluent infiltrates. No intrathoracic adenopathy. RADIATION DOSE DELIVERED: 786.87mGy.cm Total DLP DATA REPOSITORY: All CT scans at this facility are submitted to the National Radiology Data Registry (NRDR) Dose Index Registry (DIR) with the [employer] ([employer]). RADIATION OPTIMIZATION: All CT scans at this facility use at least one of these dose optimization te chniques: automated exposure control; mA and/or kV adjustment per patient size (includes targeted exa ms where dose is matched to clinical indication); or iterative reconstruction.
[2021-11-18 12:50] LABS: D-Dimer 587 ng/mlFEU (<500)
[2021-11-18] MEDS: Normal Saline 1,000 ML 1000 ML IV (12:55)
[2021-11-18] MEDS: LORazepam 2 MG/ML VIAL 1 MG IVP (12:56)
[2021-11-18] MEDS: Ketorolac 30 MG/ML VIAL IVP (12:56)
[2021-11-18] MEDS: Omnipaque 350 MG/ML 100 ML BTL IJ (13:24)
--- NOTE | 2021-11-18 13:45 | RT.EKG_ITS ---
APPROVED REPORT Exam: Resting ECG Reason for Exam: 2nd ekg Patient Location: E HR:77 bpm ECG Measurements Heart Rate 77 AXIS FL 183 P 43 QRSd 97 QRS 38 QT 407 T 63 QTc 461 Conclusion Sinus rhythm...normal P axis, V-rate 60- 99. Sinus. No STEMI. I have reviewed and interpreted ECG and agree with software generated interpretation.
--- NOTE | 2021-11-18 14:00 | RT.EKG_ITS ---
APPROVED REPORT Exam: Resting ECG Reason for Exam: chest pain Patient Location: E HR:94 bpm ECG Measurements Heart Rate 94 AXIS [place] 156 P 30 QRSd 101 QRS 21 QT 393 T 19 QTc 491 Conclusion Sinus rhythm...normal P axis, V-rate 60- 99. Sinus. No STEMI. I have reviewed and interpreted ECG and agree with software generated interpretation.
[2021-11-18 15:05] LABS: Troponin I < 50 ng/L (<or=60)
== END 2021-11-18 15:47 | disposition home or self-care (01) ==
PROVIDERS: Emergency Provider Physician Assistant; PCP Internal Medicine
DX: R07.9 Chest pain, unspecified (principal); I10 Essential (primary) hypertension; F41.9 Anxiety disorder, unspecified; R06.02 Shortness of breath
CPT/HCPCS: 36415; 71275; 80053; 83690; 93005; 96361; 96374; 96375; 99285; 71046; 83735; 84484; 85025; 85379; 93010; 99284; J1885; J2060; J3490

== ENCOUNTER 2021-11-29 15:43 | Emergency (ER) | payer MEDICAID, SELFPAY ==
[2021-11-29] VITALS (9 sets, daily range): BP systolic 116–130; BP diastolic 59–92; PULSE 70–83; RESP 14–20; TEMP 36.6; O2SAT 95–98
--- NOTE | 2021-11-29 15:30 | RT.EKG_ITS ---
APPROVED REPORT Exam: Resting ECG Reason for Exam: Fabián BARRY Patient Location: E HR:76 bpm ECG Measurements Heart Rate 76 AXIS [place] 193 P 40 QRSd 92 QRS 27 QT 395 T 70 QTc 446 Conclusion Sinus rhythm...normal P axis, V-rate 60- 99
--- NOTE | 2021-11-29 15:38 | W.ED.GENAD ---
Discharge Plan Disposition Patient Disposition: HOME Condition: Improving Discharge Details Clinical Impression: Anxiety Primary Care Provider: Orquidea Portillo ED Provider: Cortes Leonard Home Meds and New Rx's Prescriptions: Continued metformin 850 mg tablet 850 mg PO BID Qty: 180 RF: 3 chlorhexidine gluconate [Peridex] 0.12 % mouthwash 15 ml mucous membrane BID Qty: 473 RF: 5 loratadine [Claritin Liqui-Gel] 10 MG capsule 1 cap PO DAILY Qty: 90 RF: 3 Emgality Pen 120 mg/mL pen injector 120 mg subcut QMONTH Qty: 1 RF: 11 atorvastatin 40 mg tablet 40 mg PO DAILY Qty: 90 RF: 3 atenolol 25 mg tablet 75 mg PO DAILY Qty: 270 RF: 3 atenolol [Tenormin] 25 mg tablet 75 mg PO DAILY Qty: 90 RF: 11 gabapentin 300 mg capsule 300 mg PO BID Qty: 180 RF: 0 esomeprazole magnesium [Nexium] 20 mg Capsule,Delayed Release(Dr/Ec) 20 mg PO DAILY RF: 0 multivitamin Tablet 1 tab PO DAILY RF: 0 vitamin A 10,000 unit Capsule 10,000 unit PO DAILY RF: 0 benztropine 0.5 MG tablet 0.5 mg PO BID RF: 0 aspirin,buffd-calcium carb-mag 325 MG tablet 325 mg PO DAILY RF: 0 fluoxetine 40 mg capsule 80 mg PO DAILY RF: 0 Risperdal Consta 25 mg/2 mL suspension,extended rel recon 25 mg IM USEASDIRECTD RF: 0 lactulose 10 gram/15 mL solution 20 g PO DIRECTED PRNRF: 0 lorazepam 1 mg tablet 1 mg PO QID RF: 0 albuterol sulfate 90 mcg/actuation aerosol powdr breath activated 2 inh IH Q6H PRN (Reason: shortness of breath or wheezing) Qty: 1 RF: 0 Discharge Instructions Instructions: Anxiety (ED) Additional Instructions: Home to rest today. Continue your routine medications. Follow-up with Dr. Portillo for recheck and ongoing care. Return to the emergency room for any acute concerns. Medical Decision Making 56-year-old male with a history of anxiety and depression, diabetes, hypertension. Presents with intermittent episodes of left-sided chest pressure at home today for hours, with associated anxiety regarding a potential move to a [facility]. States he is improving by the time of arrival. Patient arrives with reassuring vital signs and unremarkable exam. His initial screening EKG shows a normal sinus rhythm without acute findings. Screening laboratories obtained with white count of 8, hematocrit 35, platelets 201. Chemistries reassuring, LFTs unremarkable and troponin is negative. Given the patient's history of recurrent atypical chest pain with associated anxiety, hours of discomfort prior to obtaining laboratory, I do not feel repeat troponin is warranted. The patient remains pain-free, improved and he is appropriate for discharge to home HPI General Mode of arrival: ambulatory. Date/Time Provider Initiated Documentation: 11/29/21 16:08. Limitations to Documentation: no limitations. Information obtained by: patient. History of Present Illness 56 year old M presents to the emergency department with the chief complaint of Left chest pain and anxiety, improving, described as mild and similar to prior episodes, and is localized to the chest. Patient reports no radiation. Patient started experiencing this minute(s) and it has been intermittent and now resolved. No relieving factors improve symptom(s), No exacerbating factors reported . Patient notes denies cough, fever/chills, shortness of breath and syncope. Patient did receive the following treatments prior to arrival, none Related Data Home Medications Medication Instructions Recorded Confirmed loratadine [Claritin Liqui-Gel] 1 cap PO DAILY #90 tab 12/16/14 11/29/21 aspirin,buffd-calcium carb-mag 325 mg PO DAILY 11/18/16 11/29/21 benztropine 0.5 mg PO BID 11/18/16 11/29/21 Risperdal Consta 25 mg IM USEASDIRECTD 10/03/20 11/29/21 fluoxetine 80 mg PO DAILY 10/03/20 11/29/21 lactulose 20 g PO DIRECTED PRN 10/03/20 11/29/21 esomeprazole magnesium [Nexium] 20 mg PO DAILY 10/09/20 11/29/21 albuterol sulfate 2 inh IH Q6H PRN #1 each 12/15/20 11/29/21 multivitamin 1 tab PO DAILY 01/26/21 11/29/21 vitamin A 10,000 unit PO DAILY 01/26/21 11/29/21 lorazepam 1 mg tablet 1 mg PO QID 07/05/21 11/29/21 metformin 850 mg tablet 850 mg PO BID #180 tab-cap 07/05/21 11/29/21 galcanezumab-gnlm 120 mg/mL 120 mg SUBCUT QMONTH #1 ml 07/12/21 11/29/21 subcutaneous pen injector atenolol 25 mg tablet 75 mg PO DAILY #270 tab 07/19/21 11/29/21 atorvastatin 40 mg tablet 40 mg PO DAILY #90 tab 07/19/21 11/29/21 Tenormin 25 mg tablet 75 mg PO DAILY #90 tab NS 08/02/21 11/29/21 chlorhexidine gluconate 0.12 % 15 ml MUCOUS MEMBRANE BID #473 ml 09/06/21 11/29/21 mouthwash gabapentin 300 mg capsule 300 mg PO BID #180 cap 09/28/21 11/29/21 Previous Rx's Medication Instructions Recorded albuterol sulfate 2 inh IH Q6H PRN #1 each 12/15/20 metformin 850 mg tablet 850 mg PO BID #180 tab-cap 07/05/21 galcanezumab-gnlm 120 mg/mL 120 mg SUBCUT QMONTH #1 ml 07/12/21 subcutaneous pen injector atenolol 25 mg tablet 75 mg PO DAILY #270 tab 07/19/21 atorvastatin 40 mg tablet 40 mg PO DAILY #90 tab 07/19/21 Tenormin 25 mg tablet 75 mg PO DAILY #90 tab NS 08/02/21 chlorhexidine gluconate 0.12 % 15 ml MUCOUS MEMBRANE BID #473 ml 09/06/21 mouthwash gabapentin 300 mg capsule 300 mg PO BID #180 cap 09/28/21 Allergies Allergy/AdvReac Type Severity Reaction Status Date / Time buspirone Allergy Verified 11/24/21 07:40 paliperidone Allergy Verified 11/29/21 15:33 paroxetine HCl [From Paxil] Allergy Verified 11/29/21 15:33 sertraline Allergy Verified 11/29/21 15:33 ziprasidone [From Geodon] Allergy Other (See Verified 11/29/21 15:33 Comment) aripiprazole [From Abilify] AdvReac Intermediate INVOLUNTARY Verified 11/29/21 15:33 MUSCLE MOVEMENTS divalproex sodium AdvReac Intermediate INVOLUNTARY Verified 11/29/21 15:33 [From Depakote] MUSCLE MOVEMENTS mirtazapine AdvReac Intermediate INVOLUNTARY Verified 11/24/21 07:40 MUSCLE MOVEMENTS risperidone AdvReac Intermediate INVOLUNTARY Verified 11/24/21 07:40 MUSCLE MOVEMENTS benztropine mesylate AdvReac elevated Verified 11/24/21 07:40 [From Cogentin] blood sugars enviornmental Allergy Mild Wheezing Uncoded 11/24/21 07:40 General Stated Complaint: Chest Pain CARLOS: 3 Review of Systems Narrative: No recent illness. Admits to some stress regarding potential moved to [place]. 8 systems were otherwise negative PFSH All Active Problems (Updated 11/29/21 @ 16:39 by Cortes Leonard MD) Anxiety (Chronic) Chest pain (Acute) Drug-seeking behavior (Chronic ~09/20/21) Requests Ritalin from providers Broken teeth (Chronic) Anemia (Chronic) Hiatal hernia (Chronic) protonix not effective, nexium works better 02/12/18 Hypertension (Chronic) pt requests brand name Tenormin vs atenolol 04/02/18 Allergic rhinitis (Chronic) lortadine Tobacco use disorder (Chronic) started 2013 1.5 ppd, pipe 1-7/week, QUIT LATE OCT 2021 Poor dentition (Acute) Obesity (Chronic) BMI 52 Migraine (Chronic) Migraine headache without aura (Acute) Chronic headache (Acute) Chest pain (Acute) Left-sided chest wall pain (Acute) Arrhythmia, atrial (Acute 09/07/14) Depression (Acute 10/02/14) Diabetes mellitus type 2 in obese (Acute 09/09/14) GERD (gastroesophageal reflux disease) (Acute 09/07/14) Hypercholesterolemia (Chronic 09/07/14) pt insists on lipitor 80 mg due to family hx Hypothyroidism (acquired) (Acute 09/07/14) Schizoaffective disorder (Acute 09/07/14) FREDDIE Thakkar 09/2014- [facility], [facility] inpatient Medical History Anxiety Dental caries Hyperlipidemia Mitral valve prolapse Peripheral neuropathy Trigeminal neuralgia Surgical History No significant past surgical history Family History Father Heart disease [place] Social History Smoking/Tobacco Use Status: Former Tobacco Use Smoking risk assessment performed?: Yes Alcohol Intake: never Drug use: Never Substance use type: does not use Adopted: No Caregiver/Support person: No Foster care: No Household members: none Housing: apartment Number of Children: 2 number of grandchildren: 1 Communication Needs: Corrective Lenses Education Level: college Do you need help understanding health information?: Always current occupation: Unemployed/Leave of absence Sexually active: No Do you think of yourself as: Decline to provide Current gender identity: male What type of physical activity do you participate in: other Details: weight lifting Frequency: 3-4 times per week Magalie/Nondenominational: Gnosticist Seatbelt use: always Drive intox or ride w/intox 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 Pleasant, well groomed, interactive. HEAD: Normocephalic, atraumatic EYES: PERRL, EOMI NECK: Full ROM, no REYNA, no menigismus CHEST/RESP: Nontender, clear to auscultation bilateral, no wheeze/rhonchi/rales CARDIOVASCULAR: RRR, no murmur, rub kassidy. 2+ Rad pulse bilateral ABDOMEN: Soft, nontender, no mass. +Bowel sounds EXT: Full ROM, no edema, no rash Neuro: Grossly normal neurologic exam, conversant, interactive. Psych: Speech fluent, thoughts congruent, affect normal Course Vital Signs Vital signs: Vital Signs Temperature 36.6 C 11/29/21 15:27 Pulse 83 11/29/21 15:27 Respiratory Rate 14 11/29/21 15:27 Blood Pressure 130/92 H 11/29/21 15:27 Pulse Oximetry 98 11/29/21 15:27 Temperature 36.6 C 11/29/21 15:27 Temperature Source Temporal Artery Scan 11/29/21 15:27 Pulse 83 11/29/21 15:27 Respiratory Rate 14 11/29/21 15:27 Blood Pressure 130/92 H 11/29/21 15:27 Blood Pressure Position Sitting 11/29/21 15:27 Pulse Oximetry 98 11/29/21 15:27 Oxygen Delivery Method Room Air 11/29/21 15:27 Oxygen Flow Rate 0 11/29/21 15:27 Pain Level 5 11/29/21 15:27
[2021-11-29 16:14] LABS: Abs Immature Grans 0.04 10^3/uL (0.0-0.06); Absolute Basophil Count 0.02 10^3/uL (0.0-0.2); Absolute Monocyte Count 0.59 10^3/uL (0.1-0.8); Absolute Neutrophil Count 5.97 10^3/uL (1.2-6.7); Basophils % 0.2; Eosinophils % 3.4; HCT 35.3 % (40.0-50.0); HGB 12.1 g/dL (13.5-17.5); Immature Grans % 0.5; Lymphocytes % 21.5; MCH 30.2 pg (27.0-33.0); MCHC 34.3 % (32.0-36.0); MPV 8.4 fL (8.0-11.0); Monocytes % 6.7; Neutrophils % 67.7; Nucleated RBC 0 %; Platelet Count 201 10^3/uL (130-400); RBC 4.01 10^6/uL (4.36-5.78); RDW 11.7 % (11.8-14.1); RDW-SD 37.6 fL; WBC 8.82 10^3/uL (4.4-10.8)
[2021-11-29 16:31] LABS: ALT 57 U/L (16-63); AST 34 U/L (15-37); Albumin 2.9 g/dL (3.4-5.0); Alkaline Phosphatase 105 U/L (46-116); Anion Gap 7.4 mmol/L (3-11); BUN 9 mg/dL (7-18); Bilirubin, Total 0.3 mg/dL (0.2-1.0); CO2 28.6 mmol/L (21.0-32.0); CREATININE 0.8 mg/dL (0.70-1.30); Calcium 8.6 mg/dL (8.5-10.1); Chloride 98 mmol/L (98-107); Glucose 193 mg/dL (74-106); Potassium 4.1 mmol/L (3.5-5.1); Sodium 134 mmol/L (136-145); Total Protein 7.5 g/dL (6.4-8.2)
[2021-11-29 16:33] LABS: Troponin I < 50 ng/L (<or=60)
== END 2021-11-29 16:54 | disposition home or self-care (01) ==
LOC: ER 16:39
PROVIDERS: Emergency Provider Emergency Medicine; PCP Internal Medicine
DX: F41.9 Anxiety disorder, unspecified (principal); R07.9 Chest pain, unspecified
CPT/HCPCS: 36415; 80053; 93005; 99283; 84484; 85025; 93010

== ENCOUNTER 2021-12-11 03:18 | Emergency (ER) | payer MEDICAID, SELFPAY ==
[2021-12-11] VITALS (31 sets, daily range): BP systolic 129–145; BP diastolic 66–92; PULSE 61–68; RESP 11–22; TEMP 35.8; O2SAT 94–98
--- NOTE | 2021-12-11 03:15 | RT.EKG_ITS ---
APPROVED REPORT Exam: Resting ECG Reason for Exam: chest pain Patient Location: E HR:66 bpm ECG Measurements Heart Rate 66 AXIS VT 206 P 36 QRSd 96 QRS 20 QT 421 T 54 QTc 443 Conclusion Sinus rhythm...normal P axis, V-rate 60- 99 Borderline prolonged VT interval...VT >202, V-rate 50- 90 Physician: no stemi
--- NOTE | 2021-12-11 03:47 | W.ED.GENAD ---
Discharge Plan Disposition Patient Disposition: HOME Condition: Good Discharge Details Clinical Impression: Chest pain Primary Care Provider: Orquidea Portillo ED Provider: Froilan Iraheta Home Meds and New Rx's Prescriptions: Continued chlorhexidine gluconate [Peridex] 0.12 % mouthwash 15 ml mucous membrane BID Qty: 473 RF: 5 loratadine [Claritin Liqui-Gel] 10 MG capsule 1 cap PO DAILY Qty: 90 RF: 3 Emgality Pen 120 mg/mL pen injector 120 mg subcut QMONTH Qty: 1 RF: 11 atorvastatin 40 mg tablet 40 mg PO DAILY Qty: 90 RF: 3 atenolol [Tenormin] 25 mg tablet 75 mg PO DAILY Qty: 90 RF: 11 esomeprazole magnesium [Nexium] 20 mg Capsule,Delayed Release(Dr/Ec) 20 mg PO DAILY RF: 0 multivitamin Tablet 1 tab PO DAILY RF: 0 vitamin A 10,000 unit Capsule 10,000 unit PO DAILY RF: 0 gabapentin 300 mg capsule 300 mg PO TID RF: 0 benztropine 0.5 MG tablet 0.5 mg PO BID RF: 0 aspirin,buffd-calcium carb-mag 325 MG tablet 325 mg PO DAILY RF: 0 fluoxetine 40 mg capsule 80 mg PO DAILY RF: 0 Risperdal Consta 25 mg/2 mL suspension,extended rel recon 25 mg IM USEASDIRECTD RF: 0 lactulose 10 gram/15 mL solution 20 g PO DIRECTED PRNRF: 0 lorazepam 1 mg tablet 1 mg PO QID RF: 0 albuterol sulfate 90 mcg/actuation aerosol powdr breath activated 2 inh IH Q6H PRN (Reason: shortness of breath or wheezing) Qty: 1 RF: 0 Discharge Instructions Instructions: Chest Pain (ED) Additional Instructions: At this time your work-up shows no evidence of blood clot, heart attack, or significant abnormality. Please follow-up closely with your primary care provider and discuss outpatient stress testing. If you notice any worsening of your symptoms, or any new symptoms such as vomiting, diarrhea, fever, chills, shortness of breath, chest pain, numbness, weakness, or fainting , please return immediately to the emergency department for reevaluation. Please follow up with your primary care provider as soon as possible for reassessment and reevaluation. As always, it was a pleasure participating in your medical care today. Referrals: Orquidea Portillo MD [Primary Care Provider] - Medical Decision Making This is a 56-year-old male with a past medical history of obesity, type 2 diabetes, GERD, high cholesterol, hypothyroidism, hypertension, who presents today for evaluation of chest pain. Patient states that about an hour and a half ago while sitting at rest she developed mild left-sided chest achiness. Worsened with deep inspiration. He denies any radiation to the arm neck or shoulders. EMS was called. Prior to their arrival the patient took 650 mg of aspirin. He denies any nausea vomiting or diarrhea. He denies any recent symptoms of chest pain or shortness of breath prior to this episode. He has smoked on and off for the last 20 years. He denies any previous cardiac disease. He does state that he has family history of sudden heart attack. He denies any recent long trips, surgeries or seizures. No history of blood clots. No other complaints at this time. Physical exam demonstrate a well-appearing male, no acute distress. EKG shows no sign of STEMI. Differential includes GERD, musculoskeletal strain, cardiac etiology, and PE. We will get a D-dimer, give Toradol, evaluate for these concerning etiologies, monitor closely and reassess. I did offer nitroglycerin for his chest pain, but the patient has refused that at this time. 6:43 AM Initial laboratory work-up is returned normal, troponin and electrolytes normal. D-dimer was slightly elevated. CTA was ordered and shows no evidence of pulmonary embolism or dissection. Repeat 3-hour troponin and repeat EKG are also unchanged and stable. Patient feels well and would like to go home. At this time symptoms appear clinically inconsistent with ACS. Currently the patient is stable for discharge. Will recommend prompt follow-up with PCP this week to discuss outpatient stress testing. Discussed red flags for which to return. I have extensively reviewed the treatment plan and discharge instructions with the patient. I have addressed all patient concerns at this time. The patient was made aware of what symptoms to monitor for that would warrant a return to the emergency department. Discussed the plan with the patient, they demonstrate verbal understanding and agreement with our assessment and plan at this time. The documentation in this chart was dictated using [id number] dictation software. Please excuse any dictation errors. + FINDINGS: Pulmonary arteries: Pulmonary arteries are normal. There are no pulmonary emboli. Aorta: There is no significant thoracic aortic aneurysm. There is no thoracic aortic dissection. Lungs: There is no focal airspace consolidation. There are no significant pulmonary nodules or masses. Pleural spaces: There is no significant pleural effusion. There is no pneumothorax. Heart: The heart is normal in size. There is no significant pericardial effusion. Lymph nodes: There is no significant lymphadenopathy. Bones/joints: There is no acute osseous pathology. Soft tissues: Soft tissues are unremarkable. IMPRESSION: No acute thoracic pathology identified. No evidence of pulmonary embolism or aortic dissection. Thank you for allowing us to participate in the care of your patient. Dictated and Authenticated by: Eren Rizzo MD 12/11/2021 5:52 AM Eastern Time ([place] & [place]) HPI General Date/Time Provider Initiated Documentation: 12/11/21 03:46. HPI Narrative: This is a 56-year-old male with a past medical history of obesity, type 2 diabetes, GERD, high cholesterol, hypothyroidism, hypertension, who presents today for evaluation of chest pain. Patient states that about an hour and a half ago while sitting at rest she developed mild left-sided chest achiness. Worsened with deep inspiration. He denies any radiation to the arm neck or shoulders. EMS was called. Prior to their arrival the patient took 650 mg of aspirin. He denies any nausea vomiting or diarrhea. He denies any recent symptoms of chest pain or shortness of breath prior to this episode. He has smoked on and off for the last 20 years. He denies any previous cardiac disease. He does state that he has family history of sudden heart attack. He denies any recent long trips, surgeries or seizures. No history of blood clots. No other complaints at this time. Related Data Home Medications Medication Instructions Recorded Confirmed loratadine [Claritin Liqui-Gel] 1 cap PO DAILY #90 tab 12/16/14 12/11/21 aspirin,buffd-calcium carb-mag 325 mg PO DAILY 11/18/16 12/11/21 benztropine 0.5 mg PO BID 11/18/16 12/11/21 Risperdal Consta 25 mg IM USEASDIRECTD 10/03/20 12/11/21 fluoxetine 80 mg PO DAILY 10/03/20 12/11/21 lactulose 20 g PO DIRECTED PRN 10/03/20 12/11/21 esomeprazole magnesium [Nexium] 20 mg PO DAILY 10/09/20 12/11/21 albuterol sulfate 2 inh IH Q6H PRN #1 each 12/15/20 12/11/21 multivitamin 1 tab PO DAILY 01/26/21 12/11/21 vitamin A 10,000 unit PO DAILY 01/26/21 12/11/21 lorazepam 1 mg tablet 1 mg PO QID 07/05/21 12/11/21 galcanezumab-gnlm 120 mg/mL 120 mg SUBCUT QMONTH #1 ml 07/12/21 12/11/21 subcutaneous pen injector atorvastatin 40 mg tablet 40 mg PO DAILY #90 tab 07/19/21 12/11/21 Tenormin 25 mg tablet 75 mg PO DAILY #90 tab NS 08/02/21 12/11/21 chlorhexidine gluconate 0.12 % 15 ml MUCOUS MEMBRANE BID #473 ml 09/06/21 12/11/21 mouthwash gabapentin 300 mg PO TID 12/11/21 12/11/21 Previous Rx's Medication Instructions Recorded albuterol sulfate 2 inh IH Q6H PRN #1 each 12/15/20 galcanezumab-gnlm 120 mg/mL 120 mg SUBCUT QMONTH #1 ml 07/12/21 subcutaneous pen injector atorvastatin 40 mg tablet 40 mg PO DAILY #90 tab 07/19/21 Tenormin 25 mg tablet 75 mg PO DAILY #90 tab NS 08/02/21 chlorhexidine gluconate 0.12 % 15 ml MUCOUS MEMBRANE BID #473 ml 09/06/21 mouthwash Allergies Allergy/AdvReac Type Severity Reaction Status Date / Time buspirone Allergy Verified 12/11/21 04:01 paliperidone Allergy Verified 12/11/21 04:01 paroxetine HCl [From Paxil] Allergy Verified 12/11/21 04:01 sertraline Allergy Verified 12/11/21 04:01 ziprasidone [From Geodon] Allergy Other (See Verified 12/11/21 04:01 Comment) aripiprazole [From Abilify] AdvReac Intermediate INVOLUNTARY Verified 12/11/21 04:01 MUSCLE MOVEMENTS divalproex sodium AdvReac Intermediate INVOLUNTARY Verified 12/11/21 04:01 [From Depakote] MUSCLE MOVEMENTS mirtazapine AdvReac Intermediate INVOLUNTARY Verified 12/11/21 04:01 MUSCLE MOVEMENTS risperidone AdvReac Intermediate INVOLUNTARY Verified 12/11/21 04:01 MUSCLE MOVEMENTS benztropine mesylate AdvReac elevated Verified 12/11/21 04:01 [From Cogentin] blood sugars enviornmental Allergy Mild Wheezing Uncoded 12/11/21 04:01 General Stated Complaint: Chest Pain CARLOS: 2 Review of Systems All systems reviewed & are unremarkable except as noted in HPI and below PFSH All Active Problems (Updated 12/11/21 @ 06:42 by Froilan Iraheta DO) Anxiety (Chronic) Chest pain (Acute) Drug-seeking behavior (Chronic ~09/20/21) Requests Ritalin from providers Broken teeth (Chronic) Anemia (Chronic) Hiatal hernia (Chronic) protonix not effective, nexium works better 02/12/18 Hypertension (Chronic) pt requests brand name Tenormin vs atenolol 04/02/18 Allergic rhinitis (Chronic) lortadine Tobacco use disorder (Chronic) started 2013 1.5 ppd, pipe 1-7/week, QUIT LATE OCT 2021 Poor dentition (Acute) Obesity (Chronic) BMI 52 Migraine (Chronic) Migraine headache without aura (Acute) Chronic headache (Acute) Chest pain (Acute) Left-sided chest wall pain (Acute) Arrhythmia, atrial (Acute 09/07/14) Depression (Acute 10/02/14) Diabetes mellitus type 2 in obese (Acute 09/09/14) GERD (gastroesophageal reflux disease) (Acute 09/07/14) Hypercholesterolemia (Chronic 09/07/14) pt insists on lipitor 80 mg due to family hx Hypothyroidism (acquired) (Acute 09/07/14) Schizoaffective disorder (Acute 09/07/14) FREDDIE Thakkar 09/2014- [facility] Medical History Anxiety Dental caries Hyperlipidemia Mitral valve prolapse Peripheral neuropathy Trigeminal neuralgia Surgical History No significant past surgical history Family History Father Heart disease [place] Social History Smoking/Tobacco Use Status: Former Tobacco Use Smoking risk assessment performed?: Yes Alcohol Intake: never Drug use: Never Substance use type: does not use Adopted: No Caregiver/Support person: No Foster care: No Household members: none Housing: apartment Number of Children: 2 number of grandchildren: 1 Communication Needs: Corrective Lenses Education Level: college Do you need help understanding health information?: Always current occupation: Unemployed/Leave of absence Sexually active: No Do you think of yourself as: Decline to provide Current gender identity: male What type of physical activity do you participate in: other Details: weight lifting Frequency: 3-4 times per week Magalie/Mandaen: Scientology Seatbelt use: always Drive intox or ride w/intox 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 3.ENT: Atraumatic external nose and ears. Moist MM. Neck: Symmetric, trachea midline, No thyromegaly. 4.CVS: +S1/S2, No murmurs or gallops. Peripheral pulses 2+ and equal in all extremities. Brisk capillary refill in all extremities. No reproducible chest wall pain. radial pulses +2 bilaterally. 5.RESP: Unlabored respiratory effort. Clear to auscultation bilaterally. No wheezes rales or rhonchi 6.GI: Soft, Nontender/Nondistended, No hepatosplenomegaly. No guarding or rebound. 7.MSK: Normocephalic/Atraumatic, Extremities w/o deformity or ttp No cyanosis or clubbing, Normal movement of all extremities 8.Skin: Warm, Dry. No rashes or lesions. 9.Neuro: pre sales technical engineer II-XII grossly intact. Sensation grossly intact, no focal neurologic deficits. 10.Psych: (AAO) x3. Appropriate mood and affect Course Vital Signs Vital signs: Vital Signs Temperature 35.8 C L 12/11/21 03:20 Pulse 68 12/11/21 03:20 Respiratory Rate 14 12/11/21 03:20 Blood Pressure 142/68 H 12/11/21 03:20 Pulse Oximetry 96 12/11/21 03:20 Temperature 35.8 C L 12/11/21 03:20 Temperature Source Skin 12/11/21 03:20 Pulse 68 12/11/21 03:20 Respiratory Rate 14 12/11/21 03:20 Blood Pressure 142/68 H 12/11/21 03:20 Blood Pressure Position Sitting 12/11/21 03:20 Pulse Oximetry 96 12/11/21 03:20 Oxygen Delivery Method Room Air 12/11/21 03:20 Oxygen Flow Rate 0 12/11/21 03:20 Pain Level 7 12/11/21 03:20
[2021-12-11 03:56] LABS: Abs Immature Grans 0.04 10^3/uL (0.0-0.06); Absolute Basophil Count 0.02 10^3/uL (0.0-0.2); Absolute Lymphocyte Count 1.84 10^3/uL (1.2-3.4); Absolute Monocyte Count 0.59 10^3/uL (0.1-0.8); Absolute Neutrophil Count 4.67 10^3/uL (1.2-6.7); Basophils % 0.3; HCT 33.5 % (40.0-50.0); HGB 11.2 g/dL (13.5-17.5); Immature Grans % 0.5; Lymphocytes % 24.7; MCH 30.2 pg (27.0-33.0); MCHC 33.4 % (32.0-36.0); MCV 90.3 fL (80-95); MPV 8.6 fL (8.0-11.0); Monocytes % 7.9; Neutrophils % 62.6; Nucleated RBC 0 %; Platelet Count 170 10^3/uL (130-400); RBC 3.71 10^6/uL (4.36-5.78); RDW 12.3 % (11.8-14.1); RDW-SD 40.3 fL; WBC 7.46 10^3/uL (4.4-10.8)
[2021-12-11 04:29] LABS: ALT 42 U/L (16-63); AST 23 U/L (15-37); Albumin 2.9 g/dL (3.4-5.0); Alkaline Phosphatase 95 U/L (46-116); Anion Gap 8.2 mmol/L (3-11); BUN 10 mg/dL (7-18); Bilirubin, Total 0.3 mg/dL (0.2-1.0); CO2 25.8 mmol/L (21.0-32.0); CREATININE 0.7 mg/dL (0.70-1.30); Chloride 100 mmol/L (98-107); Glucose 203 mg/dL (74-106); Potassium 4.4 mmol/L (3.5-5.1); Sodium 134 mmol/L (136-145); Total Protein 6.7 g/dL (6.4-8.2)
[2021-12-11 04:30] LABS: D-Dimer 573 ng/mlFEU (<500)
--- NOTE | 2021-12-11 04:30 | DI.CT_ITS ---
Exam(s) CT CHEST PE CTA EXAM: CT CHEST PE CTA CLINICAL HISTORY: left chest pain, pleuritic, elevated d dimer. TECHNIQUE: Imaging Protocol: CT angiography of the chest was performed using pulmonary embolus ely col. Multi planar reconstructions were performed. CONTRAST MATERIAL: Intravenous: Omnipaque 350 Contrast volume: 100 cc COMPARISON: CT CT CHEST PE CTA from 11/18/2021 FINDINGS: CHEST: PULMONARY ARTERIES: Slightly less than optimal bolus timing. However, there are no obvious intralumi nal filling defects to suggest acute pulmonary emboli. LUNGS: There is mild pleural based infiltrate in the superior segment of the right lower lobe and the re is also a pleural base nodular infiltrate posteriorly in the right lower lobe now evident which me asures 8 x 7 millimeters, not associated with pleural effusion nor overlying rib destruction. Also m ild infiltrate noted in posterior basal segments of both lower lobes, more so on the left side, and m ore prominent than on the prior 11/18/2021 study.. There are no pleural effusions. MEDIASTINUM: There is no hilar nor mediastinal adenopathy. Visualized thyroid unremarkable. CARDIAC: Heart size is upper normal. There is no pericardial effusion.Caliber of the thoracic aorta is within normal limits. There is no significant shift of the interventricular septum. PARTIALLY VISUALIZED UPPERMOST ABDOMEN: No obvious findings OSSEOUS: No significant osseous lesions.. IMPRESSION: 1. No evidence of obvious acute pulmonary emboli. No evidence of pulmonary infarction.No pleural eff usions. 2. However, when compared to the recent CT scan of 11/18/2021 there are slightly increasing infiltrat es evident in lower lobes bilaterally and there is also an 8 x 7 millimeter pleural based nodule infi ltrate in the right lower lobe now evident, probably inflammatory. Appropriate follow-up recommended . Study 1st read by [facility] Final report called by myself to the ER physician Sunday12/11/2021 3:15 p.m. RADIATION DOSE DELIVERED: 748.41mGy.cm Total DLP DATA REPOSITORY: All CT scans at this facility are submitted to the National Radiology Data Registry (NRDR) Dose Index Registry (DIR) with the [employer] (ACR). RADIATION OPTIMIZATION: All CT scans at this facility use at least one of these dose optimization te chniques: automated exposure control; mA and/or kV adjustment per patient size (includes targeted exa ms where dose is matched to clinical indication); or iterative reconstruction.
[2021-12-11 04:34] LABS: Troponin I < 50 ng/L (<or=60)
[2021-12-11 04:39] LABS: Lipase 31 U/L (73-393)
[2021-12-11] MEDS: Ketorolac 15 MG/ML VIAL IVP (05:08)
[2021-12-11] MEDS: Omnipaque 350 MG/ML 100 ML BTL IJ (05:16)
--- NOTE | 2021-12-11 05:53 | DI.VRAD_ITS ---
PROCEDURE INFORMATION: Exam: CTA Chest With Contrast Exam date and time: 12/11/2021 4:37 AM Age: 56 years old Clinical indication: Left-sided; Patient HX: Left chest pain, pleuritic, elevated d dimer TECHNIQUE: Imaging protocol: Computed tomographic angiography of the chest with contrast. 3D rendering (Not supervised by radiologist): MIP and/or 3D reconstructed images were created by the technologist. COMPARISON: CT CHEST PE CTA 11/18/2021 1:30 PM FINDINGS: Pulmonary arteries: Pulmonary arteries are normal. There are no pulmonary emboli. Aorta: There is no significant thoracic aortic aneurysm. There is no thoracic aortic dissection. Lungs: There is no focal airspace consolidation. There are no significant pulmonary nodules or masses. Pleural spaces: There is no significant pleural effusion. There is no pneumothorax. Heart: The heart is normal in size. There is no significant pericardial effusion. Lymph nodes: There is no significant lymphadenopathy. Bones/joints: There is no acute osseous pathology. Soft tissues: Soft tissues are unremarkable. IMPRESSION: No acute thoracic pathology identified. No evidence of pulmonary embolism or aortic dissection. Dictated and Authenticated by: Eren Rizzo MD. Ordering:GUERRERO Mcgovern MD
--- NOTE | 2021-12-11 06:00 | RT.EKG_ITS ---
APPROVED REPORT Exam: Resting ECG Reason for Exam: chest pain Patient Location: E HR:64 bpm ECG Measurements Heart Rate 64 AXIS IN 196 P 23 QRSd 94 QRS 20 QT 426 T 42 QTc 441 Conclusion Sinus rhythm...normal P axis, V-rate 60- 99 Physician: no stemi
[2021-12-11 06:27] LABS: Troponin I < 50 ng/L (<or=60)
--- NOTE | 2021-12-11 15:21 | W.ED.FU ---
CT of the chest was over read by Dr. Dsouza, and various radiologist, who notes that the read radiologist did not comment on pulmonary infiltrates. Dr. Dsouza states that there is no pulmonary embolism but that infiltrates appear to have progressed since prior imaging that was performed in November. He recommends consideration for pneumonia. Medical record was reviewed. Patient was afebrile with no leukocytosis and has no cough. I called and spoke with the patient and discussed additional radiographic findings with him. He notes that he did recently quit smoking but does not have a cough or fever. I do not think antibiotics are indicated at this point but I do think close outpatient follow-up is prudent. I encouraged the patient to call his primary care physician and review results with him and to return here to the emergency department should he have any worsening or new concerning symptoms. Patient verbalized understanding of plan and was in agreement.
== END 2021-12-11 06:54 | disposition home or self-care (01) ==
PROVIDERS: Emergency Provider Student in an Organized Health Care Education/Training Program; PCP Internal Medicine
DX: R07.9 Chest pain, unspecified (principal); R07.1 Chest pain on breathing; Z87.891 Personal history of nicotine dependence; R91.8 Other nonspecific abnormal finding of lung field
CPT/HCPCS: 36415; 71275; 80053; 83690; 93005; 96374; 99285; 84484; 85025; 85379; 93010; 99284; J1885; J3490

== ENCOUNTER 2022-03-05 18:36 | Emergency (ER) | payer MEDICAID, SELFPAY ==
[2022-03-05 18:40] VITALS: BP 155/75; PULSE 99; RESP 18; TEMP 36.5; O2SAT 97
--- NOTE | 2022-03-05 18:45 | DI.CT_ITS ---
Exam(s) CT HEAD WO EXAM: CT HEAD WO CLINICAL HISTORY: Right sided Headache. TECHNIQUE: Imaging Protocol: Axial computed tomography images with coronal and sagittal reformatted images were created and reviewed COMPARISON: CT CT HEAD WO from 04/12/2021 FINDINGS: Ventricles and Extra axial spaces: Normal in size and morphology for the patient's age. Hemorrhage: None. Cerebral parenchyma: Normal. Midline shift: None. Brainstem/Cerebellum: Normal. Calvarium: Normal. Visualized Paranasal sinuses/Mastoids: Clear. Soft Tissues: Unremarkable. IMPRESSION: No acute intracranial process. RADIATION DOSE DELIVERED: 1,004mGy.cm Total DLP DATA REPOSITORY: All CT scans at this facility are submitted to the National Radiology Data Registry (NRDR) Dose Index Registry (DIR) with the [employer] (ACR). RADIATION OPTIMIZATION: All CT scans at this facility use at least one of these dose optimization te chniques: automated exposure control; mA and/or kV adjustment per patient size (includes targeted exa ms where dose is matched to clinical indication); or iterative reconstruction.
--- NOTE | 2022-03-05 18:54 | ED.GENADUL_ITS ---
Discharge Plan Disposition Patient Disposition: HOME Condition: Stable Discharge Details Clinical Impression: Headache Primary Care Provider: Brandon Foster ED Provider: Fang Eubanks Home Meds and New Rx's Prescriptions: Continued chlorhexidine gluconate [Peridex] 0.12 % mouthwash 15 ml mucous membrane BID Qty: 473 5RF Rx Instructions: rinse and spit twice a day sumatriptan succinate 100 mg tablet See Rx Instructions PO .COMPLEX Qty: 12 5RF Rx Instructions: take 1 tab at onset of headache; if no relief, may repeat 1 tab after at least 2 hrs; max = 2 tabs/24 hrs PO prochlorperazine maleate 10 mg tablet 10 mg PO Q8H PRN (Reason: nausea and vomiting, headache) Qty: 20 0RF Emgality Pen 120 mg/mL pen injector 120 mg subcut QMONTH Qty: 1 11RF loratadine [Claritin Liqui-Gel] 10 MG capsule 1 cap PO DAILY Qty: 90 3RF atorvastatin 40 mg tablet 40 mg PO DAILY Qty: 90 3RF esomeprazole magnesium [Nexium] 20 mg Capsule,Delayed Release(Dr/Ec) 20 mg PO DAILY 0RF multivitamin Tablet 1 tab PO DAILY 0RF vitamin A 10,000 unit Capsule 10,000 unit PO DAILY 0RF atenolol 25 mg tablet 75 mg PO DAILY 0RF gabapentin 300 mg capsule 0RF gabapentin 300 mg capsule 300 mg PO QID 0RF benztropine 0.5 MG tablet 0.5 mg PO BID 0RF aspirin,buffd-calcium carb-mag 325 MG tablet 325 mg PO DAILY 0RF fluoxetine 40 mg capsule 80 mg PO DAILY 0RF Label Comments: TK 2 CS PO QD Risperdal Consta 25 mg/2 mL suspension,extended rel recon 25 mg IM USEASDIRECTD 0RF Label Comments: INJECT ONE SYRINGE INTRAMUSCULARLY ONCE EVERY TWO WEEKS Rx Instructions: every 2 weeks lactulose 10 gram/15 mL solution 20 g PO DIRECTED PRN0RF Label Comments: TAKE ONE TO TWO TABLESPOONS BY MOUTH NEEDED WHEN 3 DAYS PASS WITHOUT BOWEL MOVEMENT lorazepam 1 mg tablet 1 mg PO QID 0RF Label Comments: TK 1 T PO QAM THEN 2 TS HS Rx Instructions: 01/03/21 1 mg in am and 2 mg at hs Reports 1 mg in am, 1 mg in afternoon, 2 mg at hs albuterol sulfate 90 mcg/actuation aerosol powdr breath activated 2 inh IH Q6H PRN (Reason: shortness of breath or wheezing) Qty: 1 0RF Discharge Instructions Instructions: General Headache (ED) Additional Instructions: Head CT shows no evidence for intracranial bleed or acute abnormality. You may take another sumatriptan tablet if needed. Do not take more than 2 tablets in 24 hours. Follow up with primary care provider in 3-5 days. Return to ED sooner if any worsening pain not relieved by previous known migraine measures, facial droop, weakness on one side of your body, confusion or concerns. Increase oral fluids. Please take Tylenol or Ibuprofen with food every 4-6 hours as needed for pain and swelling. Referrals: Orquidea Portillo MD [ [facility] ST[facility]FF [facility]YSICIAN] - Return if symptoms worsen Medical Decision Making 56-year-old male presents via EMS ambulatory upon arrival with chief complaint of right-sided headache and pain behind his right eye. This began approximately 2 hours prior to arrival. Does have a history of migraines. He did take his 100 mg tablet of sumatriptan and Tylenol approximately 30 minutes after the onset of headache. He reports no resolution with that medication. He reports that this headache is worse than his normal migraines. He does have some blurry vision but states that he is not wearing his glasses. He denies any recent falls or head trauma. He denies any weakness numbness or tingling. He denies any fever or chills. No myalgias. No focal neuro deficits noted on exam. No facial droop. Pupils are PERRLA bilaterally. Does have a past medical history of hyperlipidemia, mitral valve prolapse, peripheral neuropathy, trigeminal neuralgia, anxiety dental caries. He was recently seen by neurology in December placed on sumatriptan and monthly injection of Emgality. CBC, CMP, liter normal saline, 10 mg Compazine, 25 mg [address] IV ordered. CT head without contrast ordered. CT result noted below no acute intracranial pathology noted please see [facility] report. Labs are largely at baseline. Glucose was 244, calcium 8.3, sodium 134 which patient does have a history of hyponatremia. 2030: Patient reevaluation, patient is sleeping he awakens easily to verbal stimulation. He reports that his headache is better than when he arrived. He reports it is still somewhat present. Will order Toradol IV and Solu-Medrol. Patient improved after medication administration. RCT called for patient transportation home. He the department and hemodynamically stable condition. This text was generated using Storybyteation system, please disregard any oddities of phrase or misspellings. Medical Records Medical records reviewed: Yes I reviewed the patient's medical records. Imaging Data Radiologic Study: Imaging: X-Ray Radiologist's impression: COMPARISON: CT HEAD WO 04/12/2021 9:16 PM FINDINGS: Brain: Cerebrum is unremarkable. Callejas-white matter differentiation is intact. No mass lesion is seen. No mass effect or midline shift. Thalamus is unremarkable. No evidence of hemorrhage. Cerebellum is unremarkable. No posterior fossa mass lesion or mass effect. No pathologic edema. No evidence of cerebellar hemorrhage. Brainstem is unremarkable. No evidence of pontine hemorrhage. No mass effect on the brainstem. Cerebral ventricles: No ventriculomegaly. Paranasal sinuses: Visualized sinuses are unremarkable. No fluid levels. Mastoid air cells: Visualized mastoid air cells are well aerated. Bones/joints: Unremarkable. No acute fracture. Soft tissues: Unremarkable. IMPRESSION: No evidence of pathology. Lab Data Lab results reviewed: Yes I reviewed the patient's lab results. Lab results narrative: Laboratory Tests Range/Units 03/05/22 03/05/22 19:10 19:10 WBC (4.4-10.8) 10^3/uL 8.68 RBC (4.36-5.78) 10^6/uL 4.20 L Hgb (13.5-17.5) g/dL 12.8 L Hct (40.0-50.0) % 37.9 L MCV (80-95) fL 90 MCH (27.0-33.0) pg 30.5 MCHC (32.0-36.0) % 33.8 RDW (11.8-14.1) % 12.4 Plt Count (130-400) 10^3/uL 195 MPV (8.0-11.0) fL 8.8 Immature Gran % 0.2 Neutrophils % 66.0 Lymphocytes % 21.4 Monocytes % 6.8 Eosinophils % 5.3 Basophils % 0.3 Nucleated RBC % (0.0-0.3) % 0.0 Absolute Neutrophils (1.2-6.7) 10^3/uL 5.72 Absolute Lymphocytes (1.2-3.4) 10^3/uL 1.86 Absolute Monocytes (0.1-0.8) 10^3/uL 0.59 Absolute Eosinophils (0.0-0.7) 10^3/uL 0.46 Absolute Basophils (0.0-0.2) 10^3/uL 0.03 Sodium (136-145) mmol/L 134 L Potassium (3.5-5.1) mmol/L 4.4 Chloride (98-107) mmol/L 99 Carbon Dioxide (21.0-32.0) mmol/L 28.9 Anion Gap (3-11) mmol/L 6.1 BUN (7-18) mg/dL 7 Creatinine (0.70-1.30) mg/dL 0.8 Estimated GFR/1.73 m2 (mL/min/1.73m2) >= 60.00 Glucose (74-106) mg/dL 244 H Calcium (8.5-10.1) mg/dL 8.3 L Total Bilirubin (0.2-1.0) mg/dL 0.4 AST (15-37) U/L 32 ALT (16-63) U/L 42 Alkaline Phosphatase (46-116) U/L 106 Total Protein (6.4-8.2) g/dL 7.7 Albumin (3.4-5.0) g/dL 3.2 L HPI General Mode of arrival: ambulatory (Via EMS) . Date/Time Provider Initiated Documentation: 03/05/22 18:43 . Limitations to Documentation: no limitations . Information obtained by: patient, EMS, RN notes reviewed and old records reviewed . HPI Narrative: 56-year-old male presents via EMS ambulatory upon arrival with chief complaint of right-sided headache and pain behind his right eye. This began approximately 2 hours prior to arrival. Does have a history of migraines. He did take his 100 mg tablet of sumatriptan and Tylenol approximately 30 minutes after the onset of headache. He reports no resolution with that medication. He reports that this headache is worse than his normal migraines. He does have some blurry vision but states that he is not wearing his glasses. He denies any recent falls or head trauma. He denies any weakness numbness or tingling. He denies any fever or chills. No myalgias. No focal neuro deficits noted on exam. No facial droop. Pupils are PERRLA bilaterally. Does have a past medical history of hyperlipidemia, mitral valve prolapse, peripheral neuropathy, trigeminal neuralgia, anxiety dental caries. He was recently seen by neurology in December placed on sumatriptan and monthly injection of Emgality. Related Data Home Medications Medication Instructions Recorded Confirmed loratadine 10 mg capsule (Claritin 1 cap PO DAILY #90 tab 12/16/14 12/15/21 Liqui-Gel) aspirin,buffered (calcium 325 mg PO DAILY 11/18/16 03/05/22 carbonate-magnesium) 325 mg tablet benztropine 0.5 mg tablet 0.5 mg PO BID 11/18/16 03/05/22 fluoxetine 40 mg capsule 80 mg PO DAILY 10/03/20 03/05/22 lactulose 10 gram/15 mL oral 20 g PO DIRECTED PRN 10/03/20 12/15/21 solution risperidone microspheres 25 mg/2 25 mg IM USEASDIRECTD 10/03/20 03/05/22 mL intramuscular susp,ext release (Risperdal Consta) esomeprazole magnesium 20 mg 20 mg PO DAILY 10/09/20 12/15/21 capsule,delayed release (Nexium) albuterol sulfate 90 mcg/actuation 2 inh IH Q6H PRN #1 each 12/15/20 03/05/22 breath activated powder inhaler multivitamin 1 tab PO DAILY 01/26/21 03/05/22 vitamin A 10,000 unit capsule 10,000 unit PO DAILY 01/26/21 12/15/21 lorazepam 1 mg tablet 1 mg PO QID 07/05/21 03/05/22 atorvastatin 40 mg tablet 40 mg PO DAILY #90 tab 07/19/21 03/05/22 chlorhexidine gluconate 0.12 % 15 ml MUCOUS MEMBRANE BID #473 ml 09/06/21 03/05/22 mouthwash (Peridex) galcanezumab-gnlm 120 mg/mL 120 mg SUBCUT QMONTH #1 ml 12/15/21 12/15/21 subcutaneous pen injector (Emgality Pen) prochlorperazine maleate 10 mg 10 mg PO Q8H PRN #20 tab 12/15/21 03/05/22 tablet sumatriptan succinate 100 mg tablet See Rx Instructions PO .COMPLEX 12/15/21 03/05/22 #12 tab atenolol 25 mg tablet 75 mg PO DAILY 03/05/22 03/05/22 gabapentin 300 mg capsule 300 mg PO QID 03/05/22 03/05/22 gabapentin 300 mg capsule mg 03/05/22 03/05/22 Previous Rx's Medication Instructions Recorded albuterol sulfate 90 mcg/actuation 2 inh IH Q6H PRN #1 each 12/15/20 breath activated powder inhaler atorvastatin 40 mg tablet 40 mg PO DAILY #90 tab 07/19/21 chlorhexidine gluconate 0.12 % 15 ml MUCOUS MEMBRANE BID #473 ml 09/06/21 mouthwash (Peridex) galcanezumab-gnlm 120 mg/mL 120 mg SUBCUT QMONTH #1 ml 12/15/21 subcutaneous pen injector (Emgality Pen) prochlorperazine maleate 10 mg 10 mg PO Q8H PRN #20 tab 12/15/21 tablet sumatriptan succinate 100 mg tablet See Rx Instructions PO .COMPLEX 12/15/21 #12 tab Allergies Allergy/AdvReac Type Severity Reaction Status Date / Time buspirone Allergy Verified 03/05/22 18:43 paliperidone Allergy Verified 03/05/22 18:43 paroxetine HCl [From Paxil] Allergy Verified 03/05/22 18:43 sertraline Allergy Verified 03/05/22 18:43 ziprasidone [From Geodon] Allergy Other (See Verified 03/05/22 18:43 Comment) aripiprazole [From Abilify] AdvReac Intermediate INVOLUNTARY Verified 03/05/22 18:43 MUSCLE MOVEMENTS divalproex sodium AdvReac Intermediate INVOLUNTARY Verified 03/05/22 18:43 [From Depakote] MUSCLE MOVEMENTS mirtazapine AdvReac Intermediate INVOLUNTARY Verified 03/05/22 18:43 MUSCLE MOVEMENTS risperidone AdvReac Intermediate INVOLUNTARY Verified 03/05/22 18:43 MUSCLE MOVEMENTS benztropine mesylate AdvReac elevated Verified 03/05/22 18:43 [From Cogentin] blood sugars enviornmental Allergy Mild Wheezing Uncoded 03/05/22 18:43 General Stated Complaint: Headache CARLOS: 3 Review of Systems All systems reviewed & are unremarkable except as noted in HPI and below Constitutional Constitutional: Denies body ache(s), Denies chills, Denies fever(s), Reports headache(s) and Denies weakness ENT Ears, Nose, Mouth, and Throat: Reports headache(s) Cardiovascular Cardiovascular: Denies chest pain and Denies dyspnea Respiratory Respiratory: Denies dyspnea Gastrointestinal Gastrointestinal: Denies diarrhea, Denies nausea and Denies vomiting Neurologic Neurologic: Reports headache(s) and Denies weakness PFSH All Active Problems (Updated 03/05/22 @ 20:44 by Fang Eubanks) Headache (Acute) Drug-seeking behavior (Chronic ~09/20/21) Requests Ritalin from providers Broken teeth (Chronic) Anemia (Chronic) Hiatal hernia (Chronic) protonix not effective, nexium works better 02/12/18 Hypertension (Chronic) pt requests brand name Tenormin vs atenolol 04/02/18 Allergic rhinitis (Chronic) lortadine Tobacco use disorder (Chronic) started 2013 1.5 ppd, pipe 1-7/week, QUIT LATE OCT 2021 Poor dentition (Acute) Obesity (Chronic) BMI 52 Migraine (Chronic) Migraine headache without aura (Acute) Chronic headache (Acute) Chest pain (Acute) Left-sided chest wall pain (Acute) Arrhythmia, atrial (Acute 09/07/14) Depression (Acute 10/02/14) Diabetes mellitus type 2 in obese (Acute 09/09/14) GERD (gastroesophageal reflux disease) (Acute 09/07/14) Hypercholesterolemia (Chronic 09/07/14) pt insists on lipitor 80 mg due to family hx Hypothyroidism (acquired) (Acute 09/07/14) Schizoaffective disorder (Acute 09/07/14) FREDDIE Thakkar 09/2014- [facility] inpatient Medical History Anxiety Dental caries Hyperlipidemia Mitral valve prolapse Peripheral neuropathy Trigeminal neuralgia Surgical History No significant past surgical history Family History Father Heart disease [place] Social History Smoking/Tobacco Use Status: Former Tobacco Use Smoking risk assessment performed?: Yes Alcohol Intake: never Drug use: Never Substance use type: does not use Adopted: No Caregiver/Support person: No Foster care: No Household members: none Housing: apartment Number of Children: 2 number of grandchildren: 1 Communication Needs: Corrective Lenses Education Level: college Do you need help understanding health information?: Always current occupation: Unemployed/Leave of absence Sexually active: No Do you think of yourself as: Decline to provide Current gender identity: male What type of physical activity do you participate in: other Details: weight lifting Frequency: 3-4 times per week Magalie/Mormonism: Amish Seatbelt use: always Drive intox or ride w/intox class c driver: No Working smoke detector in home: Yes Fire extinguisher in home: Yes Carbon monox detector in home: Yes Do you feel safe at home: Yes (anxiety) Do you feel safe in your relationship?: Yes Exam Narrative Exam Narrative: Constitutional: Alert and oriented x3. Appears stated age. Obese body habitus. Disheveled Head: Normocephalic, no trauma. Eyes: Pupils PERRL, Red reflex noted, EOM's intact. Eyelids symmetrical without lesions, discharge, or swelling. ENT: Bilateral TM's WNL, External ear normal to inspection, no mastoid TTP, swelling, or erythema, Nasal turbinates WNL, no nasal discharge. Poor dentition, Posterior pharynx WNL, no exudate. Chest: RRR, Normal S1, S2, distal pulses intact. Resp: Lungs clear to auscultation bilaterally, no wheezes, rales, or rhonchi. Abdomen: Soft, non-distended, Normoactive bowel sounds all 4 quads. Musculoskeletal: Normal gait, 5/5 strength to all four extremities. Skin: No suspicious rashes or lesions. Capillary refill less than 2 sec. Neurologic: Cranial nerves II-XII intact. Alert and oriented x 3. Motor: No deficits noted. Sensory: Intact bilaterally all 4 extremities. Reflexes: DTR's intact bilaterally.. Hematologic/Lymphatic: No ecchymosis, no lymphadenopathy. Course Vital Signs Vital signs: Vital Signs Temperature 36.5 C 03/05/22 18:40 Pulse 99 H 03/05/22 18:40 Respiratory Rate 18 03/05/22 18:40 Blood Pressure 155/75 H 03/05/22 18:40 Pulse Oximetry 97 03/05/22 18:40 Temperature 36.5 C 03/05/22 18:40 Temperature Source Temporal Artery Scan 03/05/22 18:40 Pulse 99 H 03/05/22 18:40 Respiratory Rate 18 03/05/22 18:40 Blood Pressure 155/75 H 03/05/22 18:40 Blood Pressure Position Supine 03/05/22 18:40 Pulse Oximetry 97 03/05/22 18:40 Oxygen Delivery Method Room Air 03/05/22 18:40 Oxygen Flow Rate 0 03/05/22 18:40
[2022-03-05] MEDS: Normal Saline 1,000 ML 1000 ML IV (19:17)
[2022-03-05] MEDS: diphenhydrAMINE 50 MG/ML VIAL 25 MG IVP (19:18)
[2022-03-05] MEDS: Prochlorperazine 10 MG/2 ML VIAL IVP (19:18)
[2022-03-05 19:19] LABS: Abs Immature Grans 0.02 10^3/uL (0.0-0.06); Absolute Basophil Count 0.03 10^3/uL (0.0-0.2); Absolute Eosinophil Count 0.46 10^3/uL (0.0-0.7); Absolute Lymphocyte Count 1.86 10^3/uL (1.2-3.4); Absolute Monocyte Count 0.59 10^3/uL (0.1-0.8); Absolute Neutrophil Count 5.72 10^3/uL (1.2-6.7); Basophils % 0.3; Eosinophils % 5.3; HCT 37.9 % (40.0-50.0); HGB 12.8 g/dL (13.5-17.5); Immature Grans % 0.2; Lymphocytes % 21.4; MCH 30.5 pg (27.0-33.0); MCHC 33.8 % (32.0-36.0); MCV 90 fL (80-95); MPV 8.8 fL (8.0-11.0); Monocytes % 6.8; Platelet Count 195 10^3/uL (130-400); RDW 12.4 % (11.8-14.1); RDW-SD 40.2 fL; WBC 8.68 10^3/uL (4.4-10.8)
[2022-03-05 19:32] LABS: ALT 42 U/L (16-63); AST 32 U/L (15-37); Albumin 3.2 g/dL (3.4-5.0); Alkaline Phosphatase 106 U/L (46-116); Anion Gap 6.1 mmol/L (3-11); BUN 7 mg/dL (7-18); Bilirubin, Total 0.4 mg/dL (0.2-1.0); CO2 28.9 mmol/L (21.0-32.0); CREATININE 0.8 mg/dL (0.70-1.30); Calcium 8.3 mg/dL (8.5-10.1); Chloride 99 mmol/L (98-107); Glucose 244 mg/dL (74-106); Potassium 4.4 mmol/L (3.5-5.1); Sodium 134 mmol/L (136-145); Total Protein 7.7 g/dL (6.4-8.2)
[2022-03-05] MEDS: Ketorolac 15 MG/ML VIAL IVP (20:41)
[2022-03-05] MEDS: methylPREDNISolone SUCC 125 MG VIAL IVP (20:41)
--- NOTE | 2022-03-05 20:50 | DI.VRAD_ITS ---
PROCEDURE INFORMATION: Exam: CT Head Without Contrast Exam date and time: 03/05/2022 7:45 PM Age: 56 years old Clinical indication: Pain; Other: R sided; Patient HX: Right sided headache TECHNIQUE: Imaging protocol: Computed tomography of the head without contrast. Radiation optimization: All CT scans at this facility use at least one of these dose optimization techniques: automated exposure control; mA and/or kV adjustment per patient size (includes targeted exams where dose is matched to clinical indication); or iterative reconstruction. COMPARISON: CT HEAD WO 04/12/2021 9:16 PM FINDINGS: Brain: Cerebrum is unremarkable. Callejas-white matter differentiation is intact. No mass lesion is seen. No mass effect or midline shift. Thalamus is unremarkable. No evidence of hemorrhage. Cerebellum is unremarkable. No posterior fossa mass lesion or mass effect. No pathologic edema. No evidence of cerebellar hemorrhage. Brainstem is unremarkable. No evidence of pontine hemorrhage. No mass effect on the brainstem. Cerebral ventricles: No ventriculomegaly. Paranasal sinuses: Visualized sinuses are unremarkable. No fluid levels. Mastoid air cells: Visualized mastoid air cells are well aerated. Bones/joints: Unremarkable. No acute fracture. Soft tissues: Unremarkable. IMPRESSION: No evidence of pathology. Dictated and Authenticated by: Laura Khan MD. Ordering:YOLY Headley MD
[2022-03-05 20:55] VITALS: BP 129/62; PULSE 76; RESP 13; TEMP 36.2; O2SAT 96
== END 2022-03-05 21:27 | disposition home or self-care (01) ==
LOC: ER 21:28
PROVIDERS: Emergency Provider Registered Nurse Emergency; PCP Family Medicine
DX: R51.9 Headache, unspecified (principal)
CPT/HCPCS: 80053; 96361; 96374; 96375; 99284; 70450; 85025; 99283; J0780; J1200; J1885; J2930

== ENCOUNTER 2022-03-18 22:44 | Emergency (ER) | payer MEDICAID, SELFPAY ==
[2022-03-18 22:48] VITALS: BP 145/83; PULSE 93; RESP 18; TEMP 37.2; O2SAT 95
[2022-03-18] MEDS: Ketorolac 15 MG/ML VIAL IVP (23:04)
[2022-03-18] MEDS: Normal Saline 1,000 ML 1000 ML IV (23:04)
[2022-03-18] MEDS: Prochlorperazine 10 MG/2 ML VIAL IVP (23:04)
--- NOTE | 2022-03-18 23:21 | W.ED.GENAD ---
Discharge Plan Disposition Patient Disposition: HOME Condition: Stable Discharge Details Clinical Impression: Chronic headache, Migraine headache without aura Primary Care Provider: Orquidea Portillo ED Provider: Doc Ramos Home Meds and New Rx's Prescriptions: Continued chlorhexidine gluconate [Peridex] 0.12 % mouthwash 15 ml mucous membrane BID Qty: 473 5RF Rx Instructions: rinse and spit twice a day sumatriptan succinate 100 mg tablet See Rx Instructions PO .COMPLEX Qty: 12 5RF Rx Instructions: take 1 tab at onset of headache; if no relief, may repeat 1 tab after at least 2 hrs; max = 2 tabs/24 hrs PO prochlorperazine maleate 10 mg tablet 10 mg PO Q8H PRN (Reason: nausea and vomiting, headache) Qty: 20 0RF Emgality Pen 120 mg/mL pen injector 120 mg subcut QMONTH Qty: 1 11RF loratadine [Claritin Liqui-Gel] 10 MG capsule 1 cap PO DAILY Qty: 90 atorvastatin 40 mg tablet 40 mg PO DAILY Qty: 90 3RF prednisone 50 mg tablet 50 mg PO DAILY Qty: 5 0RF esomeprazole magnesium [Nexium] 20 mg Capsule,Delayed Release(Dr/Ec) 20 mg PO DAILY multivitamin Tablet 1 tab PO DAILY vitamin A 10,000 unit Capsule 10,000 unit PO DAILY atenolol 25 mg tablet 75 mg PO DAILY gabapentin 300 mg capsule 300 mg PO QID metformin 500 mg tablet BID metformin 850 mg tablet omeprazole 20 mg capsule,delayed release(DR/EC) benztropine 0.5 MG tablet 0.5 mg PO BID aspirin,buffd-calcium carb-mag 325 MG tablet 325 mg PO DAILY fluoxetine 40 mg capsule 80 mg PO DAILY Label Comments: TK 2 CS PO QD Risperdal Consta 25 mg/2 mL suspension,extended rel recon 25 mg IM USEASDIRECTD Label Comments: INJECT ONE SYRINGE INTRAMUSCULARLY ONCE EVERY TWO WEEKS Rx Instructions: every 2 weeks lactulose 10 gram/15 mL solution 20 g PO DIRECTED PRN Label Comments: TAKE ONE TO TWO TABLESPOONS BY MOUTH NEEDED WHEN 3 DAYS PASS WITHOUT BOWEL MOVEMENT lorazepam 1 mg tablet 1 mg PO QID Label Comments: TK 1 T PO QAM THEN 2 TS HS Rx Instructions: 01/03/21 1 mg in am and 2 mg at hs Reports 1 mg in am, 1 mg in afternoon, 2 mg at hs albuterol sulfate 90 mcg/actuation aerosol powdr breath activated 2 inh IH Q6H PRN (Reason: shortness of breath or wheezing) Qty: 1 0RF Discharge Instructions Instructions: Migraine Headache (ED) Additional Instructions: follow up with your primary care provider and neurologist if you feel more ill, have severe worsening pain or fevers return to the emergency department Medical Decision Making 57 yo male with hx of chronic daily migraines comes in with complaints of pain similar to his prior migraines that has slowly been worsening throughout the day and was unable to control it with medication at home. Denies any fevers, chills, vision changes, and denies this is the worst pain of his life. He localizes it to the superior portion of his head. He is caox4, clear speech, perrl, eomi, no focal motor or sensation deficits. His symptoms and history are consistent with migraine, no findings to suggest on history or exam to suggest ich or general assignment reporter infection. Will treat him symptomatically and reassess. pt now sleeping but easily awakens, states pain is now 1/10 and is comfortable going home. Do not feel acute imaging or labs indicated, advised to f/u with pcp and return precautions given Differential Diagnosis Differential Diagnosis: migraine, chronic headache Medical Records Medical records reviewed: Yes I reviewed the patient's medical records. HPI General Mode of arrival: EMS. Date/Time Provider Initiated Documentation: 03/18/22 23:21. Limitations to Documentation: no limitations. Information obtained by: patient. History of Present Illness 57 year old M presents to the emergency department with the chief complaint of headache, described as moderate, Quality is described as aching, Patient started experiencing this day(s) (1) and it has been constant. No relieving factors improve symptom(s), No exacerbating factors reported . Patient notes no other symptoms.. Related Data Home Medications Medication Instructions Recorded Confirmed loratadine 10 mg capsule (Claritin 1 cap PO DAILY #90 tabs 12/16/14 12/15/21 Liqui-Gel) aspirin,buffered (calcium 325 mg PO DAILY 11/18/16 03/05/22 carbonate-magnesium) 325 mg tablet benztropine 0.5 mg tablet 0.5 mg PO BID 11/18/16 03/05/22 fluoxetine 40 mg capsule 80 mg PO DAILY 10/03/20 03/18/22 lactulose 10 gram/15 mL oral 20 g PO DIRECTED PRN 10/03/20 12/15/21 solution risperidone microspheres 25 mg/2 25 mg IM USEASDIRECTD 10/03/20 03/05/22 mL intramuscular susp,ext release (Risperdal Consta) esomeprazole magnesium 20 mg 20 mg PO DAILY 10/09/20 12/15/21 capsule,delayed release (Nexium) albuterol sulfate 90 mcg/actuation 2 inh inhalation Q6H PRN shortness 12/15/20 03/05/22 breath activated powder inhaler of breath or wheezing #1 ea multivitamin 1 tab PO DAILY 01/26/21 03/05/22 vitamin A 10,000 unit capsule 10,000 unit PO DAILY 01/26/21 12/15/21 lorazepam 1 mg tablet 1 mg PO QID 07/05/21 03/05/22 atorvastatin 40 mg tablet 40 mg PO DAILY #90 tabs 07/19/21 03/05/22 chlorhexidine gluconate 0.12 % 15 ml mucous membrane BID dental 09/06/21 03/05/22 mouthwash (Peridex) problem #473 mL galcanezumab-gnlm 120 mg/mL 120 mg subcut QMONTH #1 mL 12/15/21 12/15/21 subcutaneous pen injector (Emgality Pen) prochlorperazine maleate 10 mg 10 mg PO Q8H PRN nausea and 12/15/21 03/05/22 tablet vomiting, headache #20 tabs sumatriptan succinate 100 mg tablet See Rx Instructions PO .COMPLEX 12/15/21 03/05/22 #12 tabs atenolol 25 mg tablet 75 mg PO DAILY 03/05/22 03/05/22 gabapentin 300 mg capsule 300 mg PO QID 03/05/22 03/05/22 prednisone 50 mg tablet 50 mg PO DAILY #5 tabs 03/14/22 metformin 500 mg tablet tab BID 03/18/22 metformin 850 mg tablet tab 03/18/22 omeprazole 20 mg capsule,delayed cap 03/18/22 03/18/22 release Previous Rx's Medication Instructions Recorded albuterol sulfate 90 mcg/actuation 2 inh inhalation Q6H PRN shortness 12/15/20 breath activated powder inhaler of breath or wheezing #1 ea atorvastatin 40 mg tablet 40 mg PO DAILY #90 tabs 07/19/21 chlorhexidine gluconate 0.12 % 15 ml mucous membrane BID dental 09/06/21 mouthwash (Peridex) problem #473 mL galcanezumab-gnlm 120 mg/mL 120 mg subcut QMONTH #1 mL 12/15/21 subcutaneous pen injector (Emgality Pen) prochlorperazine maleate 10 mg 10 mg PO Q8H PRN nausea and 12/15/21 tablet vomiting, headache #20 tabs sumatriptan succinate 100 mg tablet See Rx Instructions PO .COMPLEX 12/15/21 #12 tabs prednisone 50 mg tablet 50 mg PO DAILY #5 tabs 03/14/22 Allergies Allergy/AdvReac Type Severity Reaction Status Date / Time buspirone Allergy Verified 03/18/22 23:03 paliperidone Allergy Verified 03/18/22 23:03 paroxetine HCl [From Paxil] Allergy Verified 03/18/22 23:03 sertraline Allergy Verified 03/18/22 23:03 ziprasidone [From Geodon] Allergy Other (See Verified 03/18/22 23:03 Comment) aripiprazole [From Abilify] AdvReac Intermediate INVOLUNTARY Verified 03/18/22 23:03 MUSCLE MOVEMENTS divalproex sodium AdvReac Intermediate INVOLUNTARY Verified 03/18/22 23:03 [From Depakote] MUSCLE MOVEMENTS mirtazapine AdvReac Intermediate INVOLUNTARY Verified 03/18/22 23:03 MUSCLE MOVEMENTS risperidone AdvReac Intermediate INVOLUNTARY Verified 03/18/22 23:03 MUSCLE MOVEMENTS benztropine mesylate AdvReac elevated Verified 03/18/22 23:03 [From Cogentin] blood sugars enviornmental Allergy Mild Wheezing Uncoded 03/18/22 23:03 General Stated Complaint: Headache CARLOS: 4 Review of Systems All systems reviewed & are unremarkable except as noted in HPI and below Constitutional Constitutional: Denies chills, Denies fever(s) and Denies weakness Cardiovascular Cardiovascular: Denies chest pain and Denies dyspnea Respiratory Respiratory: Denies cough and Denies dyspnea Gastrointestinal Gastrointestinal: Denies abdominal pain, Denies nausea and Denies vomiting Musculoskeletal Musculoskeletal: Denies joint swelling Neurologic Neurologic: Denies weakness PFSH All Active Problems (Updated 03/19/22 @ 00:38 by Doc Ramos MD) Headache (Acute) Drug-seeking behavior (Chronic ~09/20/21) Requests Ritalin from providers Broken teeth (Chronic) Anemia (Chronic) Hiatal hernia (Chronic) protonix not effective, nexium works better 02/12/18 Hypertension (Chronic) pt requests brand name Tenormin vs atenolol 04/02/18 Allergic rhinitis (Chronic) lortadine Tobacco use disorder (Chronic) started 2013 1.5 ppd, pipe 1-7/week, QUIT LATE OCT 2021 Poor dentition (Acute) Obesity (Chronic) BMI 52 Migraine (Chronic) Migraine headache without aura (Acute) Chronic headache (Acute) Chest pain (Acute) Left-sided chest wall pain (Acute) Depression (Acute 10/02/14) Diabetes mellitus type 2 in obese (Acute 09/09/14) GERD (gastroesophageal reflux disease) (Acute 09/07/14) Hypercholesterolemia (Chronic 09/07/14) pt insists on lipitor 80 mg due to family hx Hypothyroidism (acquired) (Acute 09/07/14) Schizoaffective disorder (Acute 09/07/14) Rebekah Mariscal [facility] 09/2014- [facility] inpatient Medical History Anxiety Dental caries Hyperlipidemia Mitral valve prolapse Peripheral neuropathy Trigeminal neuralgia Surgical History No significant past surgical history Family History Father Heart disease [place] Social History Smoking/Tobacco Use Status: Former Tobacco Use Smoking risk assessment performed?: Yes Alcohol Intake: never Drug use: Never Substance use type: does not use Adopted: No Caregiver/Support person: No Foster care: No Household members: none Housing: apartment Number of Children: 2 number of grandchildren: 1 Communication Needs: Corrective Lenses Education Level: college Do you need help understanding health information?: Always current occupation: Unemployed/Leave of absence Sexually active: No Do you think of yourself as: Decline to provide Current gender identity: male What type of physical activity do you participate in: other Details: weight lifting Frequency: 3-4 times per week Magalie/L[employer] Day: Roman Catholic Seatbelt use: always Drive intox or ride w/intox commercial driver's license driver: No Working smoke detector in home: Yes Fire extinguisher in home: Yes Carbon monox detector in home: Yes Do you feel safe at home: Yes (anxiety) Do you feel safe in your relationship?: Yes Exam Const General: no acute distress Orientation: alert HENMT Head: normal to inspection Ears: external ears normal General nose exam: external nose normal Mouth: moist mucous membranes Eyes General: appearance normal, both eyes and all related structures Neck Neck: normal visual inspection Resp Effort & Inspection: normal respiratory effort and able to speak in complete sentences Cardio Rate: regular rate Skin General skin exam: no rashes or lesions noted Neuro General: patient alert and patient oriented x3 Extrem General: normal to inspection Psych Mental Status: mental status grossly normal Course Vital Signs Vital signs: Vital Signs Temperature 37.2 C 03/18/22 22:48 Pulse 93 H 03/18/22 22:48 Respiratory Rate 18 03/18/22 22:48 Blood Pressure 145/83 H 03/18/22 22:48 Pulse Oximetry 95 03/18/22 22:48 Temperature 37.2 C 03/18/22 22:48 Temperature Source Oral 03/18/22 22:48 Pulse 93 H 03/18/22 22:48 Respiratory Rate 18 03/18/22 22:48 Respiratory Effort 03/18/22 22:55 Blood Pressure 145/83 H 03/18/22 22:48 Pulse Oximetry 95 03/18/22 22:48 Oxygen Delivery Method Room Air 03/18/22 22:48 Oxygen Flow Rate 0 03/18/22 22:48 Pain Level 9 03/18/22 23:04
== END 2022-03-19 01:03 | disposition home or self-care (01) ==
PROVIDERS: Emergency Provider Emergency Medicine; PCP Internal Medicine
DX: G43.009 Migraine without aura, not intractable, without status migrainosus (principal); R51.9 Headache, unspecified
CPT/HCPCS: 96361; 96374; 96375; 99284; J0780; J1885

== ENCOUNTER 2022-03-30 22:05 | Emergency (ER) | payer MEDICAID, SELFPAY ==
[2022-03-30 22:10] VITALS: BP 144/88; PULSE 84; RESP 16; TEMP 36; O2SAT 96
--- NOTE | 2022-03-30 22:30 | ED.GENADUL_ITS ---
Discharge Plan Disposition Patient Disposition: HOME Condition: Improving Discharge Details Clinical Impression: Chronic headache, Migraine headache without aura Primary Care Provider: Orquidea Portillo ED Provider: Karlos Vasquez Home Meds and New Rx's Prescriptions: No Action chlorhexidine gluconate [Peridex] 0.12 % mouthwash 15 ml mucous membrane BID Qty: 473 5RF Rx Instructions: rinse and spit twice a day sumatriptan succinate 100 mg tablet See Rx Instructions PO .COMPLEX Qty: 12 5RF Rx Instructions: take 1 tab at onset of headache; if no relief, may repeat 1 tab after at least 2 hrs; max = 2 tabs/24 hrs PO prochlorperazine maleate 10 mg tablet 10 mg PO Q8H PRN (Reason: nausea and vomiting, headache) Qty: 20 0RF Emgality Pen 120 mg/mL pen injector 120 mg subcut QMONTH Qty: 1 11RF Claritin Liqui-Gel 10 MG capsule 1 cap PO DAILY Qty: 90 atorvastatin 40 mg tablet 40 mg PO DAILY Qty: 90 3RF prednisone 50 mg tablet 50 mg PO DAILY Qty: 5 0RF esomeprazole magnesium [Nexium] 20 mg Capsule,Delayed Release(Dr/Ec) 20 mg PO DAILY multivitamin Tablet 1 tab PO DAILY vitamin A 10,000 unit Capsule 10,000 unit PO DAILY atenolol 25 mg tablet 75 mg PO DAILY gabapentin 300 mg capsule 300 mg PO QID metformin 500 mg tablet BID metformin 850 mg tablet omeprazole 20 mg capsule,delayed release(DR/EC) benztropine 0.5 MG tablet 0.5 mg PO BID aspirin,buffd-calcium carb-mag 325 MG tablet 325 mg PO DAILY fluoxetine 40 mg capsule 80 mg PO DAILY Label Comments: TK 2 CS PO QD Risperdal Consta 25 mg/2 mL suspension,extended rel recon 25 mg IM USEASDIRECTD Label Comments: INJECT ONE SYRINGE INTRAMUSCULARLY ONCE EVERY TWO WEEKS Rx Instructions: every 2 weeks lactulose 10 gram/15 mL solution 20 g PO DIRECTED PRN Label Comments: TAKE ONE TO TWO TABLESPOONS BY MOUTH NEEDED WHEN 3 DAYS PASS WITHOUT BOWEL MOVEMENT lorazepam 1 mg tablet 1 mg PO QID Label Comments: TK 1 T PO QAM THEN 2 TS HS Rx Instructions: 01/03/21 1 mg in am and 2 mg at hs Reports 1 mg in am, 1 mg in afternoon, 2 mg at hs albuterol sulfate 90 mcg/actuation aerosol powdr breath activated 2 inh IH Q6H PRN (Reason: shortness of breath or wheezing) Qty: 1 0RF Discharge Instructions Instructions: Migraine Headache (ED) Additional Instructions: Please continue to take your medications as prescribed by your primary care provider and your neurologist. Please keep your follow-up appointment with your neurologist for next week. If you have any new or significant worsening of symptoms feel free to return to the emergency department for reassessment and further treatment and evaluation as needed. Because you received steroids in the emergency department please watch your blood sugar over the next couple days as it will be higher. Please continue to take your medications and minimize carbohydrate intake Referrals: [facility] [Provider Group] - 04/05/22 (Keep your appointment as scheduled for next week) Medical Decision Making Patient presenting to the emergency department for chief complaint of headache. Patient has ongoing history of migraine headaches and is seen by neurology. Today he started having a typical migraine headache and took his home medications which have not resolved his headache and continuing to have discomfort. Patient denies any new symptoms and states similar to previous episodes. Physical exam is unremarkable for any concerning findings that would require advanced imaging or lumbar puncture. We will plan to treat patient's discomfort and reassess patient after medications. Patient did take Tylenol and Compazine just prior to arrival so we will give ketorolac, Zofran, and Benadryl. We will also give IV fluids. Do not see any necessity for labs at this time either given significant history and review of emergency department records showing multiple visits for similar presentation. Reassessed patient and he stated that he had some improvement but not full improvement. Will give patient 10 mg of Decadron and allow for IV fluids to finish. Patient did state very slight improvement of discomfort but informed patient onset of steroids would take a while. Patient states no new or abnormal symptoms from his baseline migraines, he is having some improvement, did discuss discharge home. Patient is agreeable to discharge. When discussing discharge patient multiple times asked about sumatriptans given that these were not refilled for him by his neurologist. Did inform patient that I would include this in the note so that this could be discussed when he has follow-up with his neurologist next week. After discussion of diagnosis and plan of care patient has no further needs, questions, or concerns and states clear understanding to return to the emergency department for any worsening symptoms. Medical Records Medical records reviewed: Yes I reviewed the patient's medical records. HPI General Mode of arrival: EMS . Date/Time Provider Initiated Documentation: 03/30/22 22:18 . Limitations to Documentation: no limitations . Information obtained by: patient, RN notes reviewed and old records reviewed . History of Present Illness 57 year old M presents to the emergency department with the chief complaint of Headache, described as moderate, severe and similar to prior episodes, with intensity rated at 9. Quality is described as aching and sharp, and is localized to the head. Patient reports no radiation. Patient started experiencing this hour(s) (8) and it has been constant. No relieving factors improve symptom(s), No exacerbating factors reported . Patient notes no other symptoms.. Patient did receive the following treatments prior to arrival, other (Acetaminophen) Related Data Home Medications Medication Instructions Recorded Confirmed loratadine 10 mg capsule (Claritin 1 cap PO DAILY #90 tabs 12/16/14 03/30/22 Liqui-Gel) aspirin,buffered (calcium 325 mg PO DAILY 11/18/16 03/30/22 carbonate-magnesium) 325 mg tablet benztropine 0.5 mg tablet 0.5 mg PO BID 11/18/16 03/30/22 fluoxetine 40 mg capsule 80 mg PO DAILY 10/03/20 03/30/22 lactulose 10 gram/15 mL oral 20 g PO DIRECTED PRN 10/03/20 03/30/22 solution risperidone microspheres 25 mg/2 25 mg IM USEASDIRECTD 10/03/20 03/30/22 mL intramuscular susp,ext release (Risperdal Consta) esomeprazole magnesium 20 mg 20 mg PO DAILY 10/09/20 03/30/22 capsule,delayed release (Nexium) albuterol sulfate 90 mcg/actuation 2 inh inhalation Q6H PRN shortness 12/15/20 03/30/22 breath activated powder inhaler of breath or wheezing #1 ea multivitamin 1 tab PO DAILY 01/26/21 03/05/22 vitamin A 10,000 unit capsule 10,000 unit PO DAILY 01/26/21 12/15/21 lorazepam 1 mg tablet 1 mg PO QID 07/05/21 03/30/22 atorvastatin 40 mg tablet 40 mg PO DAILY #90 tabs 07/19/21 03/30/22 chlorhexidine gluconate 0.12 % 15 ml mucous membrane BID dental 09/06/21 03/05/22 mouthwash (Peridex) problem #473 mL galcanezumab-gnlm 120 mg/mL 120 mg subcut QMONTH #1 mL 12/15/21 12/15/21 subcutaneous pen injector (Emgality Pen) prochlorperazine maleate 10 mg 10 mg PO Q8H PRN nausea and 12/15/21 03/30/22 tablet vomiting, headache #20 tabs sumatriptan succinate 100 mg tablet See Rx Instructions PO .COMPLEX 12/15/21 03/05/22 #12 tabs atenolol 25 mg tablet 75 mg PO DAILY 03/05/22 03/30/22 gabapentin 300 mg capsule 300 mg PO QID 03/05/22 03/30/22 prednisone 50 mg tablet 50 mg PO DAILY #5 tabs 03/14/22 metformin 500 mg tablet tab BID 03/18/22 metformin 850 mg tablet tab 03/18/22 omeprazole 20 mg capsule,delayed cap 03/18/22 03/18/22 release Previous Rx's Medication Instructions Recorded albuterol sulfate 90 mcg/actuation 2 inh inhalation Q6H PRN shortness 12/15/20 breath activated powder inhaler of breath or wheezing #1 ea atorvastatin 40 mg tablet 40 mg PO DAILY #90 tabs 07/19/21 chlorhexidine gluconate 0.12 % 15 ml mucous membrane BID dental 09/06/21 mouthwash (Peridex) problem #473 mL galcanezumab-gnlm 120 mg/mL 120 mg subcut QMONTH #1 mL 12/15/21 subcutaneous pen injector (Emgality Pen) prochlorperazine maleate 10 mg 10 mg PO Q8H PRN nausea and 12/15/21 tablet vomiting, headache #20 tabs sumatriptan succinate 100 mg tablet See Rx Instructions PO .COMPLEX 12/15/21 #12 tabs prednisone 50 mg tablet 50 mg PO DAILY #5 tabs 03/14/22 Allergies Allergy/AdvReac Type Severity Reaction Status Date / Time buspirone Allergy Verified 03/30/22 22:15 paliperidone Allergy Verified 03/30/22 22:15 paroxetine HCl [From Paxil] Allergy Verified 03/30/22 22:15 sertraline Allergy Verified 03/30/22 22:15 ziprasidone [From Geodon] Allergy Other (See Verified 03/30/22 22:15 Comment) aripiprazole [From Abilify] AdvReac Intermediate INVOLUNTARY Verified 03/30/22 22:15 MUSCLE MOVEMENTS divalproex sodium AdvReac Intermediate INVOLUNTARY Verified 03/30/22 22:15 [From Depakote] MUSCLE MOVEMENTS mirtazapine AdvReac Intermediate INVOLUNTARY Verified 03/30/22 22:15 MUSCLE MOVEMENTS risperidone AdvReac Intermediate INVOLUNTARY Verified 03/30/22 22:15 MUSCLE MOVEMENTS benztropine mesylate AdvReac elevated Verified 03/30/22 22:15 [From Cogentin] blood sugars enviornmental Allergy Mild Wheezing Uncoded 03/30/22 22:15 General Stated Complaint: Headache CARLOS: 3 Review of Systems Constitutional Constitutional: Denies body ache(s), Denies chills, Denies fever(s) and Reports headache(s) Eyes Eyes: Denies change in vision and Reports photophobia ENT Ears, Nose, Mouth, and Throat: Reports headache(s) Cardiovascular Cardiovascular: Denies chest pain and Denies syncope Gastrointestinal Gastrointestinal: Reports nausea and Reports vomiting Neurologic Neurologic: Reports as per HPI, Denies confusion, Denies syncope, Reports headache(s), Denies localized weakness, Denies radicular pain, Denies sensory deficit and Denies paresthesias Psychiatric Psychiatric: Denies confusion PFSH All Active Problems (Updated 03/30/22 @ 23:38 by Karlos Vasquez NP) Headache (Acute) Drug-seeking behavior (Chronic ~09/20/21) Requests Ritalin from providers Broken teeth (Chronic) Anemia (Chronic) Hiatal hernia (Chronic) protonix not effective, nexium works better 02/12/18 Hypertension (Chronic) pt requests brand name Tenormin vs atenolol 04/02/18 Allergic rhinitis (Chronic) lortadine Tobacco use disorder (Chronic) started 2013 1.5 ppd, pipe 1-7/week, QUIT LATE OCT 2021 Poor dentition (Acute) Obesity (Chronic) BMI 52 Migraine (Chronic) Migraine headache without aura (Acute) Chronic headache (Acute) Chest pain (Acute) Left-sided chest wall pain (Acute) Depression (Acute 10/02/14) Diabetes mellitus type 2 in obese (Acute 09/09/14) GERD (gastroesophageal reflux disease) (Acute 09/07/14) Hypercholesterolemia (Chronic 09/07/14) pt insists on lipitor 80 mg due to family hx Hypothyroidism (acquired) (Acute 09/07/14) Schizoaffective disorder (Acute 09/07/14) Rebekah Mariscal [facility] 09/2014- [facility] inpatient Medical History Anxiety Dental caries Hyperlipidemia Mitral valve prolapse Peripheral neuropathy Trigeminal neuralgia Surgical History No significant past surgical history Family History Father Heart disease [place] Social History Smoking/Tobacco Use Status: Current every day Tobacco Type: cigarettes, pipe Years: 8 Other: States equivalent to 1.5 packs cigarettes and cigars Smoking risk assessment performed?: Yes Alcohol Intake: never Drug use: Never Substance use type: does not use Adopted: No Caregiver/Support person: No Foster care: No Household members: none Housing: apartment Number of Children: 2 number of grandchildren: 1 Communication Needs: Corrective Lenses Education Level: college Do you need help understanding health information?: Always current occupation: Unemployed/Leave of absence Sexually active: No Do you think of yourself as: Decline to provide Current gender identity: male What type of physical activity do you participate in: other Details: weight lifting Frequency: 3-4 times per week Magalie/Taoist: Yarsani Seatbelt use: always Drive intox or ride w/intox armor reconnaissance vehicle driver: No Working smoke detector in home: Yes Fire extinguisher in home: Yes Carbon monox detector in home: Yes Do you feel safe at home: Yes (anxiety) Do you feel safe in your relationship?: Yes Exam Const General: cooperative, healthy appearing, no acute distress and well groomed Orientation: alert, awake and oriented x3 HENMT Head: normal to inspection Ears: hearing grossly normal bilaterally and TM's normal bilaterally Mouth: oral mucosae normal and moist mucous membranes Throat: posterior oropharynx normal Eyes Visual Orozco: normal visual orozco by confrontation Alignment and Position: alignment normal Periorbital: periorbital findings normal Eyelids: eyelids normal Conjunctivae: conjunctivae normal Sclera: sclerae normal Pupils: PERRL EOM: EOM intact bilaterally Neck Neck: normal visual inspection, full ROM, no lymphadenopathy and no meningeal signs Resp Effort & Inspection: normal respiratory effort and able to speak in complete sentences Auscultation: clear to auscultation bilaterally Cardio Rate: regular rate Rhythm: regular rhythm Heart Sounds: S1 normal and S2 normal Neuro General: patient alert, patient awake, patient oriented x3, gait normal, tone normal, moves all extremities, CN's II-XI intact bilaterally and not confused Cognition: normal cognition Speech: speech normal Motor: muscle tone normal throughout, no movement abnormalities noted and no fasciculations Sensory Exam: no sensory deficits noted Coordination: Does not sway with eyes open Course Vital Signs Vital signs: Vital Signs Temperature 36.0 C L 03/30/22 22:10 Pulse 84 03/30/22 22:10 Respiratory Rate 16 03/30/22 22:10 Blood Pressure 144/88 H 03/30/22 22:10 Pulse Oximetry 96 03/30/22 22:10 Temperature 36.0 C L 03/30/22 22:10 Temperature Source Temporal Artery Scan 03/30/22 22:10 Pulse 84 03/30/22 22:10 Respiratory Rate 16 03/30/22 22:10 Respiratory Effort Non-Labored 03/30/22 22:13 Blood Pressure 144/88 H 03/30/22 22:10 Blood Pressure Position Sitting 03/30/22 22:10 Pulse Oximetry 96 03/30/22 22:10 Oxygen Delivery Method Room Air 03/30/22 22:10 Oxygen Flow Rate 0 03/30/22 22:10 Pain Level 9 03/30/22 22:13
[2022-03-30] MEDS: Ketorolac 30 MG/ML VIAL IVP (22:45)
[2022-03-30] MEDS: Normal Saline 1,000 ML 1000 ML IV (22:45)
[2022-03-30] MEDS: Ondansetron 4 MG/2 ML VIAL IVP (22:45)
[2022-03-30] MEDS: diphenhydrAMINE 50 MG/ML VIAL 25 MG IVP (22:45)
[2022-03-30] MEDS: Dexamethasone 10 MG/ML VIAL IVP (23:38)
[2022-03-31 00:10] VITALS: BP 126/74; PULSE 77; RESP 18; O2SAT 98
== END 2022-03-31 05:54 | disposition home or self-care (01) ==
PROVIDERS: Emergency Provider Nurse Practitioner Family; PCP Internal Medicine
DX: G43.009 Migraine without aura, not intractable, without status migrainosus (principal); R51.9 Headache, unspecified
CPT/HCPCS: 96361; 96374; 96375; 99284; 99283; J1100; J1200; J1885; J2405

== ENCOUNTER 2022-04-01 23:19 | Emergency (ER) | payer MEDICAID, SELFPAY ==
[2022-04-01 23:26] VITALS: BP 139/65; PULSE 73; RESP 16; TEMP 37.1; O2SAT 97
[2022-04-01] MEDS: Ketorolac 30 MG/ML VIAL IM (23:44)
[2022-04-01] MEDS: Acetaminophen 500 MG TAB 1000 MG PO (23:44)
[2022-04-01] MEDS: predniSONE 20 MG TAB 60 MG PO (23:44)
[2022-04-01] MEDS: Prochlorperazine 10 MG/2 ML VIAL IM (23:44)
--- NOTE | 2022-04-02 00:27 | ED.GENADUL_ITS ---
Discharge Plan Disposition Patient Disposition: HOME Condition: Good Discharge Details Clinical Impression: Headache Primary Care Provider: Orquidea Portillo ED Provider: Froilan Iraheta Home Meds and New Rx's Prescriptions: No Action chlorhexidine gluconate [Peridex] 0.12 % mouthwash 15 ml mucous membrane BID Qty: 473 5RF Rx Instructions: rinse and spit twice a day sumatriptan succinate 100 mg tablet See Rx Instructions PO .COMPLEX Qty: 12 5RF Rx Instructions: take 1 tab at onset of headache; if no relief, may repeat 1 tab after at least 2 hrs; max = 2 tabs/24 hrs PO prochlorperazine maleate 10 mg tablet 10 mg PO Q8H PRN (Reason: nausea and vomiting, headache) Qty: 20 0RF Emgality Pen 120 mg/mL pen injector 120 mg subcut QMONTH Qty: 1 11RF Claritin Liqui-Gel 10 MG capsule 1 cap PO DAILY Qty: 90 atorvastatin 40 mg tablet 40 mg PO DAILY Qty: 90 3RF prednisone 50 mg tablet 50 mg PO DAILY Qty: 5 0RF esomeprazole magnesium [Nexium] 20 mg Capsule,Delayed Release(Dr/Ec) 20 mg PO DAILY multivitamin Tablet 1 tab PO DAILY vitamin A 10,000 unit Capsule 10,000 unit PO DAILY atenolol 25 mg tablet 75 mg PO DAILY gabapentin 300 mg capsule 300 mg PO QID metformin 500 mg tablet BID metformin 850 mg tablet omeprazole 20 mg capsule,delayed release(DR/EC) benztropine 0.5 MG tablet 0.5 mg PO BID aspirin,buffd-calcium carb-mag 325 MG tablet 325 mg PO DAILY fluoxetine 40 mg capsule 80 mg PO DAILY Label Comments: TK 2 CS PO QD Risperdal Consta 25 mg/2 mL suspension,extended rel recon 25 mg IM USEASDIRECTD Label Comments: INJECT ONE SYRINGE INTRAMUSCULARLY ONCE EVERY TWO WEEKS Rx Instructions: every 2 weeks lactulose 10 gram/15 mL solution 20 g PO DIRECTED PRN Label Comments: TAKE ONE TO TWO TABLESPOONS BY MOUTH NEEDED WHEN 3 DAYS PASS WITHOUT BOWEL MOVEMENT lorazepam 1 mg tablet 1 mg PO QID Label Comments: TK 1 T PO QAM THEN 2 TS HS Rx Instructions: 01/03/21 1 mg in am and 2 mg at hs Reports 1 mg in am, 1 mg in afternoon, 2 mg at hs albuterol sulfate 90 mcg/actuation aerosol powdr breath activated 2 inh IH Q6H PRN (Reason: shortness of breath or wheezing) Qty: 1 0RF Discharge Instructions Instructions: General Headache (ED) Additional Instructions: At this time your headache appears consistent with a migraine headache. Please continue to take your home medications as needed. We have asked that our mental health advocates that they follow-up with you closely. They will reach out to you this week. If you notice any worsening of your symptoms, or any new symptoms such as vomiting, diarrhea, fever, chills, shortness of breath, chest pain, numbness, weakness, or fainting , please return immediately to the emergency department for reevaluation. Please follow up with your primary care provider as soon as possible for reassessment and reevaluation. As always, it was a pleasure participating in your medical care today. Referrals: Orquidea Portillo MD [Primary Care Provider] - Medical Decision Making 57-year-old male with a past medical history of recurrent headaches, obesity, type 2 diabetes, GERD, high cholesterol, hypothyroidism, schizoaffective disorder, presents today for evaluation of headache. Patient has had multiple work-ups in the past for his headaches, and has and does follow-up closely with neurology. Most recent neuroimaging was on 03/05/2022 and this was negative for acute process. He presents today for evaluation of headache. He states that it began about 40 minutes prior to arrival. He did take it triptan earlier today. Headache was gradual. It is located on the top of his head. He did not take his home Compazine. The patient denies any headache red flags of worst headache of life, thunderclap headache, neck pain, fever, chills, concerning family history of polycystic kidney disease, Marfan syndrome, Carole-Danlos syndrome, abdominal aortic aneurysm, aortic dissection, or intracranial aneurysm. Patient has no other complaints at this time. No other modifying factors Physical exam demonstrates no nuchal rigidity, no meningeal signs. No neurologic deficits. Symptoms appear consistent with his chronic migraine headaches. Compazine, prednisone, and NSAIDs were administered. Patient had resolution of his headache with this. Patient feels well. Repeat neurologic exam demonstrates no focal neurologic deficit. Patient did state that he wanted follow-up with his counselor for medication reassessment. We will reach out to mental health to recommend they follow-up with him in the morning. He denies any homicidal or suicidal ideations. Patient stable for discharge. I have extensively reviewed the treatment plan and discharge instructions with the patient. I have addressed all patient concerns at this time. The patient was made aware of what symptoms to monitor for that would warrant a return to the emergency department. Discussed the plan with the patient, they demonstrate verbal understanding and agreement with our assessment and plan at this time. The documentation in this chart was dictated using [employer] dictation software. Please excuse any dictation errors. HPI General Date/Time Provider Initiated Documentation: 04/01/22 23:30 . HPI Narrative: 57-year-old male with a past medical history of recurrent headaches, obesity, type 2 diabetes, GERD, high cholesterol, hypothyroidism, schizoaffective disorder, presents today for evaluation of headache. Patient has had multiple work-ups in the past for his headaches, and has and does follow-up closely with neurology. Most recent neuroimaging was on 03/05/2022 and this was negative for acute process. He presents today for evaluation of headache. He states that it began about 40 minutes prior to arrival. He did take it triptan earlier today. Headache was gradual. It is located on the top of his head. He did not take his home Compazine. The patient denies any headache red flags of worst headache of life, thunderclap headache, neck pain, fever, chills, concerning family history of polycystic kidney disease, Marfan syndrome, Carole-Danlos syndrome, abdominal aortic aneurysm, aortic dissection, or intracranial aneurysm. Patient has no other complaints at this time. No other modifying factors Related Data Home Medications Medication Instructions Recorded Confirmed loratadine 10 mg capsule (Claritin 1 cap PO DAILY #90 tabs 12/16/14 03/30/22 Liqui-Gel) aspirin,buffered (calcium 325 mg PO DAILY 11/18/16 03/30/22 carbonate-magnesium) 325 mg tablet benztropine 0.5 mg tablet 0.5 mg PO BID 11/18/16 03/30/22 fluoxetine 40 mg capsule 80 mg PO DAILY 10/03/20 03/30/22 lactulose 10 gram/15 mL oral 20 g PO DIRECTED PRN 10/03/20 03/30/22 solution risperidone microspheres 25 mg/2 25 mg IM USEASDIRECTD 10/03/20 03/30/22 mL intramuscular susp,ext release (Risperdal Consta) esomeprazole magnesium 20 mg 20 mg PO DAILY 10/09/20 03/30/22 capsule,delayed release (Nexium) albuterol sulfate 90 mcg/actuation 2 inh inhalation Q6H PRN shortness 12/15/20 03/30/22 breath activated powder inhaler of breath or wheezing #1 ea multivitamin 1 tab PO DAILY 01/26/21 03/05/22 vitamin A 10,000 unit capsule 10,000 unit PO DAILY 01/26/21 12/15/21 lorazepam 1 mg tablet 1 mg PO QID 07/05/21 03/30/22 atorvastatin 40 mg tablet 40 mg PO DAILY #90 tabs 07/19/21 03/30/22 chlorhexidine gluconate 0.12 % 15 ml mucous membrane BID dental 09/06/21 03/05/22 mouthwash (Peridex) problem #473 mL galcanezumab-gnlm 120 mg/mL 120 mg subcut QMONTH #1 mL 12/15/21 12/15/21 subcutaneous pen injector (Emgality Pen) prochlorperazine maleate 10 mg 10 mg PO Q8H PRN nausea and 12/15/21 03/30/22 tablet vomiting, headache #20 tabs sumatriptan succinate 100 mg tablet See Rx Instructions PO .COMPLEX 12/15/21 03/05/22 #12 tabs atenolol 25 mg tablet 75 mg PO DAILY 03/05/22 03/30/22 gabapentin 300 mg capsule 300 mg PO QID 03/05/22 03/30/22 prednisone 50 mg tablet 50 mg PO DAILY #5 tabs 03/14/22 metformin 500 mg tablet tab BID 03/18/22 metformin 850 mg tablet tab 03/18/22 omeprazole 20 mg capsule,delayed cap 03/18/22 03/18/22 release Previous Rx's Medication Instructions Recorded albuterol sulfate 90 mcg/actuation 2 inh inhalation Q6H PRN shortness 12/15/20 breath activated powder inhaler of breath or wheezing #1 ea atorvastatin 40 mg tablet 40 mg PO DAILY #90 tabs 07/19/21 chlorhexidine gluconate 0.12 % 15 ml mucous membrane BID dental 09/06/21 mouthwash (Peridex) problem #473 mL galcanezumab-gnlm 120 mg/mL 120 mg subcut QMONTH #1 mL 12/15/21 subcutaneous pen injector (Emgality Pen) prochlorperazine maleate 10 mg 10 mg PO Q8H PRN nausea and 12/15/21 tablet vomiting, headache #20 tabs sumatriptan succinate 100 mg tablet See Rx Instructions PO .COMPLEX 12/15/21 #12 tabs prednisone 50 mg tablet 50 mg PO DAILY #5 tabs 03/14/22 Allergies Allergy/AdvReac Type Severity Reaction Status Date / Time buspirone Allergy Verified 04/01/22 23:33 paliperidone Allergy Verified 04/01/22 23:33 paroxetine HCl [From Paxil] Allergy Verified 04/01/22 23:33 sertraline Allergy Verified 04/01/22 23:33 ziprasidone [From Geodon] Allergy Other (See Verified 04/01/22 23:33 Comment) aripiprazole [From Abilify] AdvReac Intermediate INVOLUNTARY Verified 04/01/22 23:33 MUSCLE MOVEMENTS divalproex sodium AdvReac Intermediate INVOLUNTARY Verified 04/01/22 23:33 [From Depakote] MUSCLE MOVEMENTS mirtazapine AdvReac Intermediate INVOLUNTARY Verified 04/01/22 23:33 MUSCLE MOVEMENTS risperidone AdvReac Intermediate INVOLUNTARY Verified 04/01/22 23:33 MUSCLE MOVEMENTS benztropine mesylate AdvReac elevated Verified 04/01/22 23:33 [From Cogentin] blood sugars enviornmental Allergy Mild Wheezing Uncoded 04/01/22 23:33 General Stated Complaint: Headache CARLOS: 3 Review of Systems All systems reviewed & are unremarkable except as noted in HPI and below PFSH All Active Problems Headache (Acute) Headache (Acute) Drug-seeking behavior (Chronic ~09/20/21) Requests Ritalin from providers Broken teeth (Chronic) Anemia (Chronic) Hiatal hernia (Chronic) protonix not effective, nexium works better 02/12/18 Hypertension (Chronic) pt requests brand name Tenormin vs atenolol 04/02/18 Allergic rhinitis (Chronic) lortadine Tobacco use disorder (Chronic) started 2013 1.5 ppd, pipe 1-7/week, QUIT LATE OCT 2021 Poor dentition (Acute) Obesity (Chronic) BMI 52 Migraine (Chronic) Migraine headache without aura (Acute) Chronic headache (Acute) Chest pain (Acute) Left-sided chest wall pain (Acute) Depression (Acute 10/02/14) Diabetes mellitus type 2 in obese (Acute 09/09/14) GERD (gastroesophageal reflux disease) (Acute 09/07/14) Hypercholesterolemia (Chronic 09/07/14) pt insists on lipitor 80 mg due to family hx Hypothyroidism (acquired) (Acute 09/07/14) Schizoaffective disorder (Acute 09/07/14) Rebekah Mariscal [facility] 09/[facility]- [facility] inpatient Medical History Anxiety Dental caries Hyperlipidemia Mitral valve prolapse Peripheral neuropathy Trigeminal neuralgia Surgical History No significant past surgical history Family History Father Heart disease [place] Social History Smoking/Tobacco Use Status: Current every day Tobacco Type: cigarettes, pipe Years: 8 Other: States equivalent to 1.5 packs cigarettes and cigars Smoking risk assessment performed?: Yes Alcohol Intake: never Drug use: Never Substance use type: does not use Adopted: No Caregiver/Support person: No Foster care: No Household members: none Housing: apartment Number of Children: 2 number of grandchildren: 1 Communication Needs: Corrective Lenses Education Level: college Do you need help understanding health information?: Always current occupation: Unemployed/Leave of absence Sexually active: No Do you think of yourself as: Decline to provide Current gender identity: male What type of physical activity do you participate in: other Details: weight lifting Frequency: 3-4 times per week Magalie/Uatsdin: Church Seatbelt use: always Drive intox or ride w/intox hazmat cdl driver: No Working smoke detector in home: Yes Fire extinguisher in home: Yes Carbon monox detector in home: Yes Do you feel safe at home: Yes (anxiety) Do you feel safe in your relationship?: Yes Exam Narrative Exam Narrative: 1.Const: Well-nourished, Well-developed, appearing stated age 2.Eyes: PERRL, no conjunctival injection, and symmetrical lids. 3.ENT: Atraumatic external nose and ears. Moist MM. Neck: Symmetric, trachea midline, No thyromegaly. Patient demonstrates good movement of cervical neck. There is no nuchal rigidity, no nuchal tenderness. Patient is able to flex the neck without any difficulty or significant pain. Negative Kernig's and Brudzinski sign. 4.CVS: +S1/S2, No murmurs or gallops. Peripheral pulses 2+ and equal in all extremities. Brisk capillary refill in all extremities. 5.RESP: Unlabored respiratory effort. Clear to auscultation bilaterally. No wheezes rales or rhonchi 6.GI: Soft, Nontender/Nondistended, No hepatosplenomegaly. No guarding or re bound. 7.MSK: Normocephalic/Atraumatic, Extremities w/o deformity or ttp No cyanosis or clubbing, Normal movement of all extremities 8.Skin: Warm, Dry. No rashes or lesions. 9.Neuro: residential interior designer II-XII grossly intact. Sensation grossly intact, no focal neurologic deficits. All 6 cardinal planes of vision are fully intact. No evidence of rotatory or vertical nystagmus. The patient demonstrated a normal [id number], good dexterity. There was no evidence of dysdiadochokinesia. Patient was able to ambulate without difficulty. There was no wide-based gait. Romberg testing was normal. [id number] testing was normal. Sensation was intact bilaterally as well as muscle strength bilaterally for all extremities. Patient was able to verbalize butter cup with no slurring, or miss pronunciation. 10.Psych: (AAO) x3. Appropriate mood and affect Course Vital Signs Vital signs: Vital Signs Temperature 37.1 C 04/01/22 23: Pulse 73 04/01/22 23:26 Respiratory Rate 16 04/01/22 23: Blood Pressure 139/65 04/01/22 23:26 Pulse Oximetry 97 04/01/22 23: Temperature 37.1 C 04/01/22 23:26 Pulse 73 04/01/22 23:26 Respiratory Rate 16 04/01/22 23:26 Respiratory Effort Non-Labored 04/01/22 23:29 Blood Pressure 139/65 04/01/22 23:26 Blood Pressure Position Sitting 04/01/22 23:26 Pulse Oximetry 97 04/01/22 23:26 Oxygen Delivery Method Room Air 04/01/22 23:26 Oxygen Flow Rate 0 04/01/22 23:26
== END 2022-04-02 00:31 | disposition home or self-care (01) ==
PROVIDERS: Emergency Provider Student in an Organized Health Care Education/Training Program; PCP Internal Medicine
DX: R51.9 Headache, unspecified (principal)
CPT/HCPCS: 96372; 99284; 99283; J0780; J1885; J7512

== ENCOUNTER 2022-04-05 05:57 | Emergency (ER) | payer MEDICAID, SELFPAY ==
[2022-04-05 06:00] VITALS: BP 163/78; PULSE 93; RESP 18; TEMP 36.3; O2SAT 96
--- NOTE | 2022-04-05 06:03 | ED.GENADUL_ITS ---
Discharge Plan Disposition Patient Disposition: HOME Condition: Improving Discharge Details Clinical Impression: Headache Primary Care Provider: Orquidea Portillo ED Provider: [place] Viera Home Meds and New Rx's Prescriptions: Continued chlorhexidine gluconate [Peridex] 0.12 % mouthwash 15 ml mucous membrane BID Qty: 473 5RF Rx Instructions: rinse and spit twice a day sumatriptan succinate 100 mg tablet See Rx Instructions PO .COMPLEX Qty: 12 5RF Rx Instructions: take 1 tab at onset of headache; if no relief, may repeat 1 tab after at least 2 hrs; max = 2 tabs/24 hrs PO prochlorperazine maleate 10 mg tablet 10 mg PO Q8H PRN (Reason: nausea and vomiting, headache) Qty: 20 0RF Emgality Pen 120 mg/mL pen injector 120 mg subcut QMONTH Qty: 1 11RF Claritin Liqui-Gel 10 MG capsule 1 cap PO DAILY Qty: 90 atorvastatin 40 mg tablet 40 mg PO DAILY Qty: 90 3RF prednisone 50 mg tablet 50 mg PO DAILY Qty: 5 0RF esomeprazole magnesium [Nexium] 20 mg Capsule,Delayed Release(Dr/Ec) 20 mg PO DAILY multivitamin Tablet 1 tab PO DAILY vitamin A 10,000 unit Capsule 10,000 unit PO DAILY atenolol 25 mg tablet 75 mg PO DAILY gabapentin 300 mg capsule 300 mg PO QID metformin 500 mg tablet BID metformin 850 mg tablet omeprazole 20 mg capsule,delayed release(DR/EC) benztropine 0.5 MG tablet 0.5 mg PO BID aspirin,buffd-calcium carb-mag 325 MG tablet 325 mg PO DAILY fluoxetine 40 mg capsule 80 mg PO DAILY Label Comments: TK 2 CS PO QD Risperdal Consta 25 mg/2 mL suspension,extended rel recon 25 mg IM USEASDIRECTD Label Comments: INJECT ONE SYRINGE INTRAMUSCULARLY ONCE EVERY TWO WEEKS Rx Instructions: every 2 weeks lactulose 10 gram/15 mL solution 20 g PO DIRECTED PRN Label Comments: TAKE ONE TO TWO TABLESPOONS BY MOUTH NEEDED WHEN 3 DAYS PASS WITHOUT BOWEL MOVEMENT lorazepam 1 mg tablet 1 mg PO QID Label Comments: TK 1 T PO QAM THEN 2 TS HS Rx Instructions: 01/03/21 1 mg in am and 2 mg at hs Reports 1 mg in am, 1 mg in afternoon, 2 mg at hs albuterol sulfate 90 mcg/actuation aerosol powdr breath activated 2 inh IH Q6H PRN (Reason: shortness of breath or wheezing) Qty: 1 0RF Discharge Instructions Instructions: Migraine Headache (ED), General Headache (ED) Additional Instructions: Drink plenty of fluids and get plenty of rest. Continue your regular medication as directed. Alternate tylenol and motrin as needed and directed for pain. Follow-up with your scheduled appointment with neurology at 930am this morning. Return immediately to the emergency department if you develop any worsening or new concerning symptoms. Referrals: Katarzyna Alexis MD [ [facility] STAFF PHYSICIAN] - Discharge Data Discharge Physician: [place] Viera Medical Decision Making 0600 -- 57yo M well-known to the emergency department with a history of obesity, migraine, anxiety, depression, diabetes, GERD, hypertension, hyperlipidemia, schizoaffective disorder who presents to the ED with a complaint of headache for the past 2 hours. Of note, this is patient's fifth visit this month for headache. Blood pressure hypertensive at 163/78. Remainder vitals within normal limits. Patient appears slightly uncomfortable but nontoxic. No focal deficits on exam. No meningeal signs. Patient denies thunderclap sensation or sudden onset of headache. States this feels consistent with his usual migraine. History and presentation does not appear consistent with subarachnoid hemorrhage, CVA or meningitis. He has a follow-up appointment with neurology at 930 this morning. He had a CT head on 03/05/2022 which was unremarkable. Do not see medication for lab work or imaging at this time. We will place an IV, bolus IV fluids, IV Toradol, Tylenol, Compazine, Benadryl and Decadron and reassess. 0730 --patient reassessed and he feels much better and feels comfortable with discharge. Patient is requesting food. Will have patient eat and remain in the waiting room until his appointment with neurology at 930am this morning. Usual and customary return precautions given prior to discharge. Medical Records Medical records reviewed: Yes I reviewed the patient's medical records. HPI General Mode of arrival: ambulatory . Date/Time Provider Initiated Documentation: 04/05/22 06:00 . Limitations to Documentation: no limitations . Information obtained by: patient . HPI Narrative: Patient is a 57-year-old male well-known to the emergency department with a history of obesity, depression, migraine, diabetes, GERD, schizoaffective disorder, hypertension, hyperlipidemia who presents with headache for the past few hours. Of note, this is patient's 5th visit this month for headache, each time being diagnosed with likely migraine with resolution of the symptoms and discharge home. He does feel typical of his usual migraine and describes it as constant, throbbing and diffuse. He admits to sensitivity to noise and light. He also admits to nausea but denies any fever or neck pain. He states he took Imitrex 3 hours ago without relief. He has not taken any recent Tylenol or ibuprofen. He has a follow-up appointment with neurology at 930 this morning. Related Data Home Medications Medication Instructions Recorded Confirmed loratadine 10 mg capsule (Claritin 1 cap PO DAILY #90 tabs 12/16/14 03/30/22 Liqui-Gel) aspirin,buffered (calcium 325 mg PO DAILY 11/18/16 03/30/22 carbonate-magnesium) 325 mg tablet benztropine 0.5 mg tablet 0.5 mg PO BID 11/18/16 03/30/22 fluoxetine 40 mg capsule 80 mg PO DAILY 10/03/20 03/30/22 lactulose 10 gram/15 mL oral 20 g PO DIRECTED PRN 10/03/20 03/30/22 solution risperidone microspheres 25 mg/2 25 mg IM USEASDIRECTD 10/03/20 03/30/22 mL intramuscular susp,ext release (Risperdal Consta) esomeprazole magnesium 20 mg 20 mg PO DAILY 10/09/20 03/30/22 capsule,delayed release (Nexium) albuterol sulfate 90 mcg/actuation 2 inh inhalation Q6H PRN shortness 12/15/20 03/30/22 breath activated powder inhaler of breath or wheezing #1 ea multivitamin 1 tab PO DAILY 01/26/21 03/05/22 vitamin A 10,000 unit capsule 10,000 unit PO DAILY 01/26/21 12/15/21 lorazepam 1 mg tablet 1 mg PO QID 07/05/21 03/30/22 atorvastatin 40 mg tablet 40 mg PO DAILY #90 tabs 07/19/21 03/30/22 chlorhexidine gluconate 0.12 % 15 ml mucous membrane BID dental 09/06/21 03/05/22 mouthwash (Peridex) problem #473 mL galcanezumab-gnlm 120 mg/mL 120 mg subcut QMONTH #1 mL 12/15/21 12/15/21 subcutaneous pen injector (Emgality Pen) prochlorperazine maleate 10 mg 10 mg PO Q8H PRN nausea and 12/15/21 03/30/22 tablet vomiting, headache #20 tabs sumatriptan succinate 100 mg tablet See Rx Instructions PO .COMPLEX 12/15/21 03/05/22 #12 tabs atenolol 25 mg tablet 75 mg PO DAILY 03/05/22 03/30/22 gabapentin 300 mg capsule 300 mg PO QID 03/05/22 03/30/22 prednisone 50 mg tablet 50 mg PO DAILY #5 tabs 03/14/22 metformin 500 mg tablet tab BID 03/18/22 metformin 850 mg tablet tab 03/18/22 omeprazole 20 mg capsule,delayed cap 03/18/22 03/18/22 release Previous Rx's Medication Instructions Recorded albuterol sulfate 90 mcg/actuation 2 inh inhalation Q6H PRN shortness 12/15/20 breath activated powder inhaler of breath or wheezing #1 ea atorvastatin 40 mg tablet 40 mg PO DAILY #90 tabs 07/19/21 chlorhexidine gluconate 0.12 % 15 ml mucous membrane BID dental 09/06/21 mouthwash (Peridex) problem #473 mL galcanezumab-gnlm 120 mg/mL 120 mg subcut QMONTH #1 mL 12/15/21 subcutaneous pen injector (Emgality Pen) prochlorperazine maleate 10 mg 10 mg PO Q8H PRN nausea and 12/15/21 tablet vomiting, headache #20 tabs sumatriptan succinate 100 mg tablet See Rx Instructions PO .COMPLEX 12/15/21 #12 tabs prednisone 50 mg tablet 50 mg PO DAILY #5 tabs 03/14/22 Allergies Allergy/AdvReac Type Severity Reaction Status Date / Time buspirone Allergy Verified 04/01/22 23:33 paliperidone Allergy Verified 04/01/22 23:33 paroxetine HCl [From Paxil] Allergy Verified 04/01/22 23:33 sertraline Allergy Verified 04/01/22 23:33 ziprasidone [From Geodon] Allergy Other (See Verified 04/01/22 23:33 Comment) aripiprazole [From Abilify] AdvReac Intermediate INVOLUNTARY Verified 04/01/22 23:33 MUSCLE MOVEMENTS divalproex sodium AdvReac Intermediate INVOLUNTARY Verified 04/01/22 23:33 [From Depakote] MUSCLE MOVEMENTS mirtazapine AdvReac Intermediate INVOLUNTARY Verified 04/01/22 23:33 MUSCLE MOVEMENTS risperidone AdvReac Intermediate INVOLUNTARY Verified 04/01/22 23:33 MUSCLE MOVEMENTS benztropine mesylate AdvReac elevated Verified 04/01/22 23:33 [From Cogentin] blood sugars enviornmental Allergy Mild Wheezing Uncoded 04/01/22 23:33 General Stated Complaint: Headache CARLOS: 3 Review of Systems All systems reviewed & are unremarkable except as noted in HPI and below Constitutional Constitutional: Denies chills, Denies excessive sweating, Denies fatigue, Denies fever(s), Reports headache(s), Denies weakness and Denies weight loss Eyes Eyes: Reports system reviewed and no additional complaints, except as documented and Denies blurry vision ENT Ears, Nose, Mouth, and Throat: Denies vertigo, Denies dizziness, Denies otalgia, Reports headache(s), Denies nasal congestion, Denies sore throat and Denies throat swelling Cardiovascular Cardiovascular: Denies chest pain, Denies syncope, Denies rapid heart rate and Denies dyspnea Respiratory Respiratory: Denies chest congestion, Denies cough, Denies pain on inspiration and Denies dyspnea Gastrointestinal Gastrointestinal: Denies abdominal pain, Denies diarrhea and Denies vomiting Genitourinary Genitourinary: Denies hematuria, Denies dysuria and Denies flank pain Musculoskeletal Musculoskeletal: Denies back pain and Denies joint swelling Integumentary/Breasts Skin/Breast: Denies lesions and Denies rash Neurologic Neurologic: Denies behavioral changes, Denies confusion, Denies vertigo, Denies dizziness, Denies syncope, Reports headache(s), Denies localized weakness and Denies weakness Psychiatric Psychiatric: Denies behavioral changes, Denies confusion and Denies depression Endocrine Endocrine: Denies excessive sweating and Denies fatigue Hematologic/Lymphatic Hematologic/Lymphatic: Denies easy bruising and Denies lymphadenopathy Allergic/Immunologic Allergic/Immunologic: Denies throat swelling PFSH All Active Problems (Updated 04/05/22 @ 07:42 by [place] Viera DO) Headache (Acute) Headache (Acute) Drug-seeking behavior (Chronic ~09/20/21) Requests Ritalin from providers Broken teeth (Chronic) Anemia (Chronic) Hiatal hernia (Chronic) protonix not effective, nexium works better 02/12/18 Hypertension (Chronic) pt requests brand name Tenormin vs atenolol 04/02/18 Allergic rhinitis (Chronic) lortadine Tobacco use disorder (Chronic) started 2013 1.5 ppd, pipe 1-7/week, QUIT LATE OCT 2021 Poor dentition (Acute) Obesity (Chronic) BMI 52 Migraine (Chronic) Migraine headache without aura (Acute) Chronic headache (Acute) Chest pain (Acute) Left-sided chest wall pain (Acute) Depression (Acute 10/02/14) Diabetes mellitus type 2 in obese (Acute 09/09/14) GERD (gastroesophageal reflux disease) (Acute 09/07/14) Hypercholesterolemia (Chronic 09/07/14) pt insists on lipitor 80 mg due to family hx Hypothyroidism (acquired) (Acute 09/07/14) Schizoaffective disorder (Acute 09/07/14) [facility]ak[facility] Medical History Anxiety Dental caries Hyperlipidemia Mitral valve prolapse Peripheral neuropathy Trigeminal neuralgia Surgical History No significant past surgical history Family History Father Heart disease [place] Social History Smoking/Tobacco Use Status: Current every day Tobacco Type: cigarettes, pipe Years: 8 Other: States equivalent to 1.5 packs cigarettes and cigars Smoking risk assessment performed?: Yes Alcohol Intake: never Drug use: Never Substance use type: does not use Adopted: No Caregiver/Support person: No Foster care: No Household members: none Housing: apartment Number of Children: 2 number of grandchildren: 1 Communication Needs: Corrective Lenses Education Level: college Do you need help understanding health information?: Always current occupation: Unemployed/Leave of absence Sexually active: No Do you think of yourself as: Decline to provide Current gender identity: male What type of physical activity do you participate in: other Details: weight lifting Frequency: 3-4 times per week Magalie/Mosque: Restorationism Seatbelt use: always Drive intox or ride w/intox armored car guard and driver: No Working smoke detector in home: Yes Fire extinguisher in home: Yes Carbon monox detector in home: Yes Do you feel safe at home: Yes (anxiety) Do you feel safe in your relationship?: Yes Exam Const General: cooperative Nutritional Appearance: obese morbidly obese Orientation: alert, awake and oriented x3 HENMT Head: normal to inspection Ears: hearing grossly normal bilaterally, external ears normal and TM's normal bilaterally General nose exam: external nose normal Face and sinus: normal facial exam Mouth: oral mucosae normal Teeth and gingiva: dentition normal Throat: posterior oropharynx normal Eyes General: appearance normal, both eyes and all related structures Eyelids: eyelids normal Pupils: PERRL EOM: EOM intact bilaterally Neck Neck: normal visual inspection Lymphatic: no lymphadenopathy noted Chest Chest: normal inspection of the chest Resp Effort & Inspection: normal respiratory effort and able to speak in complete sentences Auscultation: clear to auscultation bilaterally Cardio Rate: regular rate Rhythm: regular rhythm GI Inspection: normal to inspection Palpation: soft, not firm, no guarding, no hepatosplenomegaly, no masses and nontender Auscultation: normal bowel sounds Back/Spine/Pelvis Back: no CVA tenderness Skin General skin exam: no rashes or lesions noted Neuro General: patient alert, patient awake, moves all extremities, no meningeal signs and no focal motor deficits Cranial Nerves: CN's II-XI intact bilaterally Cognition: normal cognition Speech: speech normal Gait: normal gait Motor: muscle tone normal throughout Sensory Exam: no sensory deficits noted Extrem General: normal to inspection, full ROM and capillary refill normal Psych Appearance: grossly normal Mental Status: mental status grossly normal Speech and Movement: speech and movement normal Affect: normal affect Thought Process: normal
[2022-04-05] MEDS: ACETAMINOPHEN 1,000 MG/100 ML BTL 400 MG IVPB (06:37)
[2022-04-05] MEDS: Prochlorperazine 10 MG/2 ML VIAL IVP (06:37)
[2022-04-05] MEDS: Dexamethasone 10 MG/ML VIAL IVP (06:37)
[2022-04-05] MEDS: Normal Saline 1,000 ML 1000 ML IV (06:37)
[2022-04-05] MEDS: diphenhydrAMINE 50 MG/ML VIAL 25 MG IVP (06:37)
[2022-04-05] MEDS: Ketorolac 30 MG/ML VIAL IVP (06:37)
[2022-04-05 07:23] VITALS: BP 144/69; PULSE 72; RESP 16; O2SAT 97
== END 2022-04-05 08:30 | disposition home or self-care (01) ==
PROVIDERS: Emergency Provider Physician Assistant; PCP Internal Medicine
DX: R51.9 Headache, unspecified (principal); I10 Essential (primary) hypertension
CPT/HCPCS: 96361; 96365; 96375; 99284; 99283; J0131; J0780; J1100; J1200; J1885

== ENCOUNTER 2022-05-17 12:11 | Emergency (ER) | payer MEDICAID, SELFPAY ==
[2022-05-17] VITALS (120 sets, daily range): BP systolic 111–121; BP diastolic 62–83; PULSE 81–96; RESP 10–24; TEMP 36.8; O2SAT 93–98
--- NOTE | 2022-05-17 12:00 | RT.EKG_ITS ---
APPROVED REPORT Exam: Resting ECG Reason for Exam: chest pain Patient Location: E HR:96 bpm ECG Measurements Heart Rate 96 AXIS OK 166 P 41 QRSd 96 QRS 36 QT 393 T 15 QTc 496 Conclusion Sinus rhythm...normal P axis, V-rate 60- 99 Physician: Rate 96, sinus rhythm, no significant ST elevations or depressions. No evidence of STEMI. No T wave inversions
[2022-05-17] MEDS: Aspirin 81 MG CHEW 324 MG CH (12:22)
--- NOTE | 2022-05-17 12:32 | W.ED.GENAD ---
Discharge Plan Disposition Patient Disposition: HOME Condition: Good Discharge Details Clinical Impression: Chest pain Primary Care Provider: Orquidea Portillo ED Provider: Froilan Iraheta Home Meds and New Rx's Prescriptions: No Action chlorhexidine gluconate [Peridex] 0.12 % mouthwash 15 ml mucous membrane BID Qty: 473 5RF Rx Instructions: rinse and spit twice a day Emgality Pen 120 mg/mL pen injector 120 mg subcut QMONTH Qty: 1 11RF rizatriptan 10 mg tablet See Rx Instructions PO .COMPLEX Qty: 10 5RF Rx Instructions: take 1 tab at onset of headache; if no relief may repeat 1 tab after at least 2 hrs; max = 3 tabs/24 hr PO Claritin Liqui-Gel 10 MG capsule 1 cap PO DAILY Qty: 90 atorvastatin 40 mg tablet 40 mg PO DAILY Qty: 90 3RF prednisone 50 mg tablet 50 mg PO DAILY Qty: 5 0RF prochlorperazine maleate 10 mg tablet See Rx Instructions .ROUTE .COMPLEX Qty: 20 5RF Dose Instruction: TAKE 1 TABLET BY MOUTH EVERY 8 HOURS NEEDED FOR NAUSEA AND VOMITING, HEADACHE Rx Instructions: TAKE 1 TABLET BY MOUTH EVERY 8 HOURS NEEDED FOR NAUSEA AND VOMITING, HEADACHE atenolol 25 mg tablet 75 mg PO DAILY Qty: 90 0RF esomeprazole magnesium [Nexium] 20 mg Capsule,Delayed Release(Dr/Ec) 20 mg PO DAILY multivitamin Tablet 1 tab PO DAILY vitamin A 10,000 unit Capsule 10,000 unit PO DAILY gabapentin 300 mg capsule 300 mg PO QID metformin 500 mg tablet 1 tab PO BID metformin 850 mg tablet 1 tab PO 2XD omeprazole 20 mg capsule,delayed release(DR/EC) 20 mg PO DAILY benztropine 0.5 MG tablet 0.5 mg PO BID aspirin,buffd-calcium carb-mag 325 MG tablet 325 mg PO DAILY fluoxetine 40 mg capsule 80 mg PO DAILY Label Comments: TK 2 CS PO QD Risperdal Consta 25 mg/2 mL suspension,extended rel recon 25 mg IM USEASDIRECTD Label Comments: INJECT ONE SYRINGE INTRAMUSCULARLY ONCE EVERY TWO WEEKS Rx Instructions: every 2 weeks lactulose 10 gram/15 mL solution 20 g PO DIRECTED PRN Label Comments: TAKE ONE TO TWO TABLESPOONS BY MOUTH NEEDED WHEN 3 DAYS PASS WITHOUT BOWEL MOVEMENT lorazepam 1 mg tablet 1 mg PO QID Label Comments: TK 1 T PO QAM THEN 2 TS HS Rx Instructions: 01/03/21 1 mg in am and 2 mg at hs Reports 1 mg in am, 1 mg in afternoon, 2 mg at hs albuterol sulfate 90 mcg/actuation aerosol powdr breath activated 2 inh IH Q6H PRN (Reason: shortness of breath or wheezing) Qty: 1 0RF loratadine 10 mg tablet 10 mg PO DAILY Discharge Instructions Instructions: Chest Pain (ED) Additional Instructions: At this time your work-up shows no evidence of blood clot, heart attack or other significant abnormality. Please continue to rest and follow-up closely with your primary care provider. If you notice any worsening of your symptoms, or any new symptoms such as vomiting, diarrhea, fever, chills, shortness of breath, chest pain, numbness, weakness, or fainting , please return immediately to the emergency department for reevaluation. Please follow up with your primary care provider as soon as possible for reassessment and reevaluation. As always, it was a pleasure participating in your medical care today. Referrals: Orquidea Portillo MD [Primary Care Provider] - Discharge Data Discharge Date/Time-TO BE ENTERED AT DEPARTURE: 05/17/22 16:00 Medical Decision Making 57-year-old male with a past medical history of recurrent headaches, obesity, type 2 diabetes, GERD, high cholesterol, hypothyroidism, schizoaffective disorder, depression, no known history of cardiac disease, who presents today for evaluation of chest pain and shortness of breath. Patient states that starting about 2 to 3 hours ago he developed some mild chest tightness on the left-hand side, with associated shortness of breath. He denies any worsening of the chest pain with exertion, but does admit to slight worsening shortness of breath with exertion. He denies any cough, fever or chills. He denies any vomiting or diarrhea. He has had symptoms like this in the past, but denies any previous history of heart attack. He does state that he had a cardiac catheterization in [place] in the past and this was negative at that time. He denies any other complaints at this time. No tearing or ripping sensation. No recent long trips surgeries or procedures. No hemoptysis. No lower extremity swelling. He was brought in by EMS. Aspirin and nitroglycerin were not administered by EMS. Exam demonstrates well-appearing male, vital signs stable. No calf tenderness. No lung abnormalities on exam. Differential is broad but includes reactive airway disease, muscle strain, or cardiac etiology. PE is also of concern. I did recommend to the patient administration of aspirin and nitroglycerin. Patient has refused nitroglycerin at this time stating that he has an allergy to it. When I asked the patient what his allergy was he states that it makes his hair stick up. I informed him that it would still be my recommendations to try nitroglycerin, to which she responded I do not like to practice [facility] or [facility]. I did then discussed with the patient the most up to date recommendations from the National cardiology societies and their recommendation for nitroglycerin in the setting concerning for potential cardiac etiology, and the patient would still like to hold off on any nitroglycerin administration at this time. We will continue to monitor closely and reassess the patient. 3:45 PM Laboratory work-up is returned and is unremarkable. Mild elevation in ALT, however bilirubin normal. No evidence of jaundice clinically. proBNP normal, suggesting no signs of heart strain. D-dimer was positive, CTA was ordered and is negative for evidence of pulmonary embolism. EKG is unremarkable/unchanged. No evidence of STEMI. Troponins are normal. Lipase normal. On reassessment patient feels well. He is requesting to go home and be discharged. With CT scan/CTA negative for acute process, pulmonary etiology, and cardiac etiology otherwise unremarkable, with a low heart score at this time, I feel the patient's symptoms are clinically inconsistent with ACS/heart attack. Likely more related to exertional component, potential deconditioning, and a musculoskeletal etiology. Currently at this time there is no clinical evidence of acute life-threatening etiology. We will respect the patient's wishes for discharge. Discussed red flags which to return. I have extensively reviewed the treatment plan and discharge instructions with the patient. I have addressed all patient concerns at this time. The patient was made aware of what symptoms to monitor for that would warrant a return to the emergency department. Discussed the plan with the patient, they demonstrate verbal understanding and agreement with our assessment and plan at this time. The documentation in this chart was dictated using [employer] dictation software. Please excuse any dictation errors. EKG 12: 13 Rate 96, sinus rhythm, no significant ST elevations or depressions. No evidence of STEMI. No T wave inversions FINDINGS: CHEST: PULMONARY ARTERIES: There are no intraluminal filling defects in the central pulmonary arteries to suggest acute central pulmonary emboli.Distal segmental vessels are not well opacified. LUNGS: There are no infiltrates nor evidence of pulmonary infarction.. There are no pleural effusions. MEDIASTINUM: There is no hilar nor mediastinal adenopathy. Visualized thyroid unremarkable. CARDIAC: Heart size is upper normal. There is no pericardial effusion.Caliber of the thoracic aorta is within normal limits. There is no significant shift of the interventricular septum. PARTIALLY VISUALIZED UPPERMOST ABDOMEN: No obvious findings OSSEOUS: No significant osseous lesions.. IMPRESSION: 1. Less than optimal opacification of the pulmonary arteries..No central pulmonary emboli. No evidence pulmonary infarction. No pleural effusions. Cannot assess the most distal pulmonary arteries here as they are less than adequately opacified.. 2. No evidence of aortic dissection 3. No pericardial effusion. HPI General Date/Time Provider Initiated Documentation: 05/17/22 12:15. HPI Narrative: 57-year-old male with a past medical history of recurrent headaches, obesity, type 2 diabetes, GERD, high cholesterol, hypothyroidism, schizoaffective disorder, depression, no known history of cardiac disease, who presents today for evaluation of chest pain and shortness of breath. Patient states that starting about 2 to 3 hours ago he developed some mild chest tightness on the left-hand side, with associated shortness of breath. He denies any worsening of the chest pain with exertion, but does admit to slight worsening shortness of breath with exertion. He denies any cough, fever or chills. He denies any vomiting or diarrhea. He has had symptoms like this in the past, but denies any previous history of heart attack. He does state that he had a cardiac catheterization in [place] in the past and this was negative at that time. He denies any other complaints at this time. No tearing or ripping sensation. No recent long trips surgeries or procedures. No hemoptysis. No lower extremity swelling. He was brought in by EMS. Aspirin and nitroglycerin were not administered by EMS. Related Data Home Medications Medication Instructions Recorded Confirmed loratadine 10 mg capsule (Claritin 1 cap PO DAILY #90 tabs 12/16/14 05/17/22 Liqui-Gel) aspirin,buffered (calcium 325 mg PO DAILY 11/18/16 05/17/22 carbonate-magnesium) 325 mg tablet benztropine 0.5 mg tablet 0.5 mg PO BID 11/18/16 05/17/22 fluoxetine 40 mg capsule 80 mg PO DAILY 10/03/20 05/17/22 lactulose 10 gram/15 mL oral 20 g PO DIRECTED PRN 10/03/20 05/17/22 solution risperidone microspheres 25 mg/2 25 mg IM USEASDIRECTD 10/03/20 05/17/22 mL intramuscular susp,ext release (Risperdal Consta) esomeprazole magnesium 20 mg 20 mg PO DAILY 10/09/20 05/17/22 capsule,delayed release (Nexium) albuterol sulfate 90 mcg/actuation 2 inh inhalation Q6H PRN shortness 12/15/20 05/17/22 breath activated powder inhaler of breath or wheezing #1 ea multivitamin 1 tab PO DAILY 01/26/21 05/17/22 vitamin A 10,000 unit capsule 10,000 unit PO DAILY 01/26/21 05/17/22 lorazepam 1 mg tablet 1 mg PO QID 07/05/21 05/17/22 atorvastatin 40 mg tablet 40 mg PO DAILY #90 tabs 07/19/21 05/17/22 chlorhexidine gluconate 0.12 % 15 ml mucous membrane BID dental 09/06/21 05/17/22 mouthwash (Peridex) problem #473 mL gabapentin 300 mg capsule 300 mg PO QID 03/05/22 05/17/22 prednisone 50 mg tablet 50 mg PO DAILY #5 tabs 03/14/22 05/17/22 metformin 500 mg tablet 1 tab PO BID 03/18/22 05/17/22 metformin 850 mg tablet 1 tab PO 2XD 03/18/22 05/17/22 omeprazole 20 mg capsule,delayed 20 mg PO DAILY 03/18/22 05/17/22 release galcanezumab-gnlm 120 mg/mL 120 mg subcut QMONTH #1 mL 04/05/22 05/17/22 subcutaneous pen injector (Emgality Pen) loratadine 10 mg tablet 10 mg PO DAILY 04/05/22 05/17/22 rizatriptan 10 mg tablet See Rx Instructions PO .COMPLEX 04/05/22 05/17/22 #10 tabs prochlorperazine maleate 10 mg See Rx Instructions .Route 05/02/22 05/17/22 tablet .COMPLEX #20 tabs atenolol 25 mg tablet 75 mg PO DAILY #90 tabs 05/12/22 05/17/22 Previous Rx's Medication Instructions Recorded albuterol sulfate 90 mcg/actuation 2 inh inhalation Q6H PRN shortness 12/15/20 breath activated powder inhaler of breath or wheezing #1 ea atorvastatin 40 mg tablet 40 mg PO DAILY #90 tabs 07/19/21 chlorhexidine gluconate 0.12 % 15 ml mucous membrane BID dental 09/06/21 mouthwash (Peridex) problem #473 mL prednisone 50 mg tablet 50 mg PO DAILY #5 tabs 03/14/22 galcanezumab-gnlm 120 mg/mL 120 mg subcut QMONTH #1 mL 04/05/22 subcutaneous pen injector (Emgality Pen) rizatriptan 10 mg tablet See Rx Instructions PO .COMPLEX 04/05/22 #10 tabs prochlorperazine maleate 10 mg See Rx Instructions .Route 05/02/22 tablet .COMPLEX #20 tabs atenolol 25 mg tablet 75 mg PO DAILY #90 tabs 05/12/22 Allergies Allergy/AdvReac Type Severity Reaction Status Date / Time buspirone Allergy Verified 05/17/22 12:15 paliperidone Allergy Verified 05/17/22 12:15 paroxetine HCl [From Paxil] Allergy Verified 05/17/22 12:15 sertraline Allergy Verified 05/17/22 12:15 ziprasidone [From Geodon] Allergy Other (See Verified 05/17/22 12:15 Comment) aripiprazole [From Abilify] AdvReac Intermediate INVOLUNTARY Verified 05/17/22 12:15 MUSCLE MOVEMENTS divalproex sodium AdvReac Intermediate INVOLUNTARY Verified 05/17/22 12:15 [From Depakote] MUSCLE MOVEMENTS mirtazapine AdvReac Intermediate INVOLUNTARY Verified 05/17/22 12:15 MUSCLE MOVEMENTS risperidone AdvReac Intermediate INVOLUNTARY Verified 05/17/22 12:15 MUSCLE MOVEMENTS benztropine mesylate AdvReac elevated Verified 05/17/22 12:15 [From Cogentin] blood sugars enviornmental Allergy Mild Wheezing Uncoded 05/17/22 12:15 General Stated Complaint: Chest Pain CARLOS: 3 Review of Systems All systems reviewed & are unremarkable except as noted in HPI and below PFSH All Active Problems (Updated 05/17/22 @ 15:25 by Froilan Iraheta DO) Chest pain (Acute) Medication overuse headache (Acute) Drug-seeking behavior (Chronic ~09/20/21) Requests Ritalin from providers Broken teeth (Chronic) Anemia (Chronic) Hiatal hernia (Chronic) protonix not effective, nexium works better 02/12/18 Hypertension (Chronic) pt requests brand name Tenormin vs atenolol 04/02/18 Allergic rhinitis (Chronic) lortadine Tobacco use disorder (Chronic) started 2013 1.5 ppd, pipe 1-7/week, QUIT LATE OCT 2021 Poor dentition (Acute) Obesity (Chronic) BMI 52 Migraine (Chronic) Migraine headache without aura (Acute) Chronic headache (Acute) Chest pain (Acute) Left-sided chest wall pain (Acute) Depression (Acute 10/02/14) Diabetes mellitus type 2 in obese (Acute 09/09/14) GERD (gastroesophageal reflux disease) (Acute 09/07/14) Hypercholesterolemia (Chronic 09/07/14) pt insists on lipitor 80 mg due to family hx Hypothyroidism (acquired) (Acute 09/07/14) Schizoaffective disorder (Acute 09/07/14) FREDDIE Thakkar 09/2014- [facility] inpatient Medical History Anxiety Dental caries Hyperlipidemia Mitral valve prolapse Peripheral neuropathy Trigeminal neuralgia Surgical History No significant past surgical history Family History Father Heart disease [place] Social History Smoking/Tobacco Use Status: Current every day Tobacco Type: cigarettes, pipe Years: 8 Other: States equivalent to 1.5 packs cigarettes and cigars Smoking risk assessment performed?: Yes Alcohol Intake: never Drug use: Never Substance use type: does not use Adopted: No Caregiver/Support person: No Foster care: No Household members: none Housing: apartment Number of Children: 2 number of grandchildren: 1 Communication Needs: Corrective Lenses Education Level: college Do you need help understanding health information?: Always current occupation: Unemployed/Leave of absence Sexually active: No Do you think of yourself as: Decline to provide Current gender identity: male What type of physical activity do you participate in: other Details: weight lifting Frequency: 3-4 times per week Magalie/Congregation: Congregation Seatbelt use: always Drive intox or ride w/intox 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 3.ENT: Atraumatic external nose and ears. Moist MM. Neck: Symmetric, trachea midline, No thyromegaly. 4.CVS: +S1/S2, No murmurs or gallops. Peripheral pulses 2+ and equal in all extremities. Brisk capillary refill in all extremities. 5.RESP: Unlabored respiratory effort. Clear to auscultation bilaterally. No wheezes rales or rhonchi 6.GI: Soft, Nontender/Nondistended, No hepatosplenomegaly. No guarding or rebound. 7.MSK: Normocephalic/Atraumatic, Extremities w/o deformity or ttp No cyanosis or clubbing, Normal movement of all extremities, no calf tenderness. 8.Skin: Warm, Dry. No rashes or lesions. 9.Neuro: health teacher II-XII grossly intact. Sensation grossly intact, no focal neurologic deficits. 10.Psych: (AAO) x3. Appropriate mood and affect Course Vital Signs Vital signs: Vital Signs Temperature 36.8 C 05/17/22 12:07 Pulse 96 H 05/17/22 12:07 Respiratory Rate 19 05/17/22 12:07 Blood Pressure 121/62 05/17/22 12:07 Pulse Oximetry 97 05/17/22 12:07 Temperature 36.8 C 05/17/22 12:07 Temperature Source Tympanic 05/17/22 12:07 Pulse 96 H 05/17/22 12:16 Respiratory Rate 16 05/17/22 12:30 Respiratory Effort 05/17/22 12:13 Respiratory Depth Normal 05/17/22 12:13 Respiratory Pattern Normal 05/17/22 12:13 Blood Pressure 117/76 05/17/22 12:16 Blood Pressure Position Sitting 05/17/22 12:07 Pulse Oximetry 97 05/17/22 12:30 Oxygen Delivery Method Room Air 05/17/22 12:07 Oxygen Flow Rate 0 05/17/22 12:07 Pain Level 7 05/17/22 12:07
[2022-05-17 12:34] LABS: Abs Immature Grans 0.03 10^3/uL (0.0-0.06); Absolute Basophil Count 0.02 10^3/uL (0.0-0.2); Absolute Eosinophil Count 0.24 10^3/uL (0.0-0.7); Absolute Lymphocyte Count 1.35 10^3/uL (1.2-3.4); Absolute Monocyte Count 0.61 10^3/uL (0.1-0.8); Absolute Neutrophil Count 4.41 10^3/uL (1.2-6.7); Basophils % 0.3; Eosinophils % 3.6; HCT 34.8 % (40.0-50.0); HGB 11.9 g/dL (13.5-17.5); Immature Grans % 0.5; Lymphocytes % 20.3; MCH 30.3 pg (27.0-33.0); MCHC 34.2 % (32.0-36.0); MCV 89 fL (80-95); MPV 8.4 fL (8.0-11.0); Monocytes % 9.2; Neutrophils % 66.1; Platelet Count 149 10^3/uL (130-400); RBC 3.93 10^6/uL (4.36-5.78); RDW 11.9 % (11.8-14.1); RDW-SD 38.5 fL; WBC 6.66 10^3/uL (4.4-10.8)
[2022-05-17 12:53] LABS: PTT Activated 24.6 sec (21.0-27.5); Prothrombin Time 10.4 sec (9.3-11.0)
[2022-05-17 12:57] LABS: ALT 104 U/L (16-63); AST 57 U/L (15-37); Albumin 3.2 g/dL (3.4-5.0); Alkaline Phosphatase 143 U/L (46-116); Anion Gap 10.1 mmol/L (3-11); BUN 8 mg/dL (7-18); CO2 24.9 mmol/L (21.0-32.0); Calcium 8.8 mg/dL (8.5-10.1); Chloride 98 mmol/L (98-107); Glucose 237 mg/dL (74-106); Lipase 33 U/L (73-393); NT-proBNP 234 pg/mL (<300); Potassium 3.8 mmol/L (3.5-5.1); Sodium 133 mmol/L (136-145); Total Protein 7.6 g/dL (6.4-8.2); Troponin I < 50 ng/L (<or=60)
--- NOTE | 2022-05-17 13:00 | DI.CT_ITS ---
Exam(s) CT CHEST PE CTA EXAM: CT CHEST PE CTA CLINICAL HISTORY: chest pain, sob, elevated dimer, r/o PE. TECHNIQUE: Imaging Protocol: CT angiography of the chest was performed using pulmonary embolus ely col. Multi planar reconstructions were performed. CONTRAST MATERIAL: Intravenous: Omnipaque 350 Contrast volume: 100 cc COMPARISON: CT CT CHEST PE CTA from 12/11/2021 FINDINGS: CHEST: PULMONARY ARTERIES: There are no intraluminal filling defects in the central pulmonary arteries to dennis ggest acute central pulmonary emboli.Distal segmental vessels are not well opacified. LUNGS: There are no infiltrates nor evidence of pulmonary infarction.. There are no pleural effusions . MEDIASTINUM: There is no hilar nor mediastinal adenopathy. Visualized thyroid unremarkable. CARDIAC: Heart size is upper normal. There is no pericardial effusion.Caliber of the thoracic aorta is within normal limits. There is no significant shift of the interventricular septum. PARTIALLY VISUALIZED UPPERMOST ABDOMEN: No obvious findings OSSEOUS: No significant osseous lesions.. IMPRESSION: 1. Less than optimal opacification of the pulmonary arteries..No central pulmonary emboli. No eviden ce pulmonary infarction. No pleural effusions. Cannot assess the most distal pulmonary arteries her e as they are less than adequately opacified.. 2. No evidence of aortic dissection 3. No pericardial effusion. RADIATION DOSE DELIVERED: 811.83mGy.cm Total DLP DATA REPOSITORY: All CT scans at this facility are submitted to the National Radiology Data Registry (NRDR) Dose Index Registry (DIR) with the [employer] [place] [employer] (ACR). RADIATION OPTIMIZATION: All CT scans at this facility use at least one of these dose optimization te chniques: automated exposure control; mA and/or kV adjustment per patient size (includes targeted exa ms where dose is matched to clinical indication); or iterative reconstruction.
[2022-05-17 13:11] LABS: D-Dimer 917 ng/mlFEU (<500)
[2022-05-17] MEDS: Omnipaque 350 MG/ML 100 ML BTL IJ (13:42)
[2022-05-17] MEDS: Normal Saline Flush 10 ML SYR IVP (13:44)
[2022-05-17 15:40] LABS: Troponin I < 50 ng/L (<or=60)
== END 2022-05-17 16:00 | disposition home or self-care (01) ==
PROVIDERS: Emergency Provider Student in an Organized Health Care Education/Training Program; PCP Internal Medicine
DX: R07.89 Other chest pain (principal); R06.02 Shortness of breath; E11.42 Type 2 diabetes mellitus with diabetic polyneuropathy; R74.01 Elevation of levels of liver transaminase levels; Z79.84 Long term (current) use of oral hypoglycemic drugs; F17.210 Nicotine dependence, cigarettes, uncomplicated; F17.290 Nicotine dependence, other tobacco product, uncomplicated
CPT/HCPCS: 71275; 80053; 83690; 93005; 99285; 83880; 84484; 85025; 85379; 85610; 85730; 93010; 99284; J3490

== ENCOUNTER 2022-06-14 13:21 | Emergency (ER) | payer MEDICAID, SELFPAY ==
[2022-06-14] VITALS (37 sets, daily range): BP systolic 99–170; BP diastolic 48–80; PULSE 61–97; RESP 16–25; TEMP 36.4–36.5; O2SAT 92–98
--- NOTE | 2022-06-14 13:15 | RT.EKG_ITS ---
APPROVED REPORT Exam: Resting ECG Reason for Exam: CHEST PAIN Patient Location: E HR:92 bpm ECG Measurements Heart Rate 92 AXIS DE 160 P 41 QRSd 102 QRS 26 QT 390 T 40 QTc 483 Conclusion Sinus rhythm...normal P axis, V-rate 60- 99 sinus rhythm at 92, normal axis, no acute ischemic changes, nondiagnostic EKG
--- NOTE | 2022-06-14 14:39 | PDOC.ERCMPRO ---
- If Service Date Differs Date of service: 06/14/22 Time of Service: 14:39 Care Management Progress Note SBIRT screen:positive for daily nicotine use. Pt declines tobacco cessation referral.
[2022-06-14 14:55] LABS: Abs Immature Grans 0.04 10^3/uL (0.0-0.06); Absolute Basophil Count 0.02 10^3/uL (0.0-0.2); Absolute Eosinophil Count 0.28 10^3/uL (0.0-0.7); Absolute Lymphocyte Count 1.32 10^3/uL (1.2-3.4); Absolute Neutrophil Count 5.92 10^3/uL (1.2-6.7); Basophils % 0.2; Eosinophils % 3.5; HCT 33.4 % (40.0-50.0); HGB 11.4 g/dL (13.5-17.5); Immature Grans % 0.5; Lymphocytes % 16.3; MCH 30.7 pg (27.0-33.0); MCHC 34.1 % (32.0-36.0); MCV 90 fL (80-95); MPV 8.4 fL (8.0-11.0); Monocytes % 6.2; Neutrophils % 73.3; Platelet Count 153 10^3/uL (130-400); RBC 3.71 10^6/uL (4.36-5.78); RDW 12.3 % (11.8-14.1); WBC 8.08 10^3/uL (4.4-10.8)
--- NOTE | 2022-06-14 15:11 | NUR.NOTE ---
pt was placed on telemetry and was returned to the waiting roomNursing Note:
[2022-06-14 15:14] LABS: ALT 53 U/L (16-63); AST 28 U/L (15-37); Albumin 3.1 g/dL (3.4-5.0); Alkaline Phosphatase 103 U/L (46-116); Anion Gap 6.3 mmol/L (3-11); BUN 9 mg/dL (7-18); Bilirubin, Total 0.3 mg/dL (0.2-1.0); CO2 30.7 mmol/L (21.0-32.0); CREATININE 0.8 mg/dL (0.70-1.30); Calcium 8.6 mg/dL (8.5-10.1); Chloride 98 mmol/L (98-107); Glucose 283 mg/dL (74-106); Magnesium 1.5 mg/dL (1.8-2.4); Potassium 4.1 mmol/L (3.5-5.1); Sodium 135 mmol/L (136-145); Total Protein 7.3 g/dL (6.4-8.2); Troponin I < 50 ng/L (<or=60)
--- NOTE | 2022-06-14 15:15 | DI.RAD_ITS ---
Exam(s) XR CHEST 2V PA LATERAL EXAM: XR CHEST 2V PA LATERAL CLINICAL HISTORY: chest pain TECHNIQUE: 2D digital imaging was performed. COMPARISON: CR XR CHEST 2V PA LATERAL from 11/18/2021 FINDINGS: The heart is not enlarged. The lungs are clear and well expanded. No pleural effusion seen. Mediastin al contours appear intact. IMPRESSION: Normal chest. RADIATION DOSE DELIVERED: Total DLP
--- NOTE | 2022-06-14 15:49 | ED.GENADUL_ITS ---
Discharge Plan Disposition Patient Disposition: HOME Condition: Improving Discharge Details Clinical Impression: Chest pain, Hypomagnesemia Primary Care Provider: Orquidea Portillo ED Provider: Lb Cordero Home Meds and New Rx's Prescriptions: No Action atorvastatin 40 mg tablet 80 mg PO DAILY chlorhexidine gluconate [Peridex] 0.12 % mouthwash 15 ml mucous membrane BID Qty: 473 5RF Rx Instructions: rinse and spit twice a day Emgality Pen 120 mg/mL pen injector 120 mg subcut QMONTH Qty: 1 11RF sumatriptan succinate 100 mg tablet See Rx Instructions PO .COMPLEX Qty: 9 5RF Rx Instructions: take 1 tab at onset of headache; if no relief, may repeat 1 tab after at least 2 hrs; max = 2 tabs/24 hrs PO Claritin Liqui-Gel 10 MG capsule 1 cap PO DAILY Qty: 90 prochlorperazine maleate 10 mg tablet See Rx Instructions .ROUTE .COMPLEX Qty: 20 5RF Dose Instruction: TAKE 1 TABLET BY MOUTH EVERY 8 HOURS NEEDED FOR NAUSEA AND VOMITING, HEADACHE Rx Instructions: TAKE 1 TABLET BY MOUTH EVERY 8 HOURS NEEDED FOR NAUSEA AND VOMITING, HEADACHE atenolol 25 mg tablet See Rx Instructions .ROUTE .COMPLEX Qty: 90 0RF Dose Instruction: TAKE 3 TABLETS BY MOUTH DAILY (DAW2) Rx Instructions: TAKE 3 TABLETS BY MOUTH DAILY (DAW2) esomeprazole magnesium [Nexium] 20 mg Capsule,Delayed Release(Dr/Ec) 20 mg PO DAILY multivitamin Tablet 1 tab PO DAILY vitamin A 10,000 unit Capsule 10,000 unit PO DAILY gabapentin 300 mg capsule 300 mg PO QID metformin 500 mg tablet 1 tab PO BID omeprazole 20 mg capsule,delayed release(DR/EC) 20 mg PO DAILY benztropine 0.5 MG tablet 0.5 mg PO BID aspirin,buffd-calcium carb-mag 325 MG tablet 325 mg PO DAILY fluoxetine 40 mg capsule 80 mg PO DAILY Label Comments: TK 2 CS PO QD Risperdal Consta 25 mg/2 mL suspension,extended rel recon 25 mg IM USEASDIRECTD Label Comments: INJECT ONE SYRINGE INTRAMUSCULARLY ONCE EVERY TWO WEEKS Rx Instructions: every 2 weeks lactulose 10 gram/15 mL solution 20 g PO DIRECTED PRN Label Comments: TAKE ONE TO TWO TABLESPOONS BY MOUTH NEEDED WHEN 3 DAYS PASS WITHOUT BOWEL MOVEMENT lorazepam 1 mg tablet 1 mg PO QID Label Comments: TK 1 T PO QAM THEN 2 TS HS Rx Instructions: 01/03/21 1 mg in am and 2 mg at hs Reports 1 mg in am, 1 mg in afternoon, 2 mg at hs albuterol sulfate 90 mcg/actuation aerosol powdr breath activated 2 inh IH Q6H PRN (Reason: shortness of breath or wheezing) Qty: 1 0RF Discharge Instructions Instructions: Chest Pain (ED), Hypomagnesemia (ED) Additional Instructions: Please follow-up with your primary care physician. Please return the emergency department for any worsening symptoms. Discharge Data Discharge Date/Time-TO BE ENTERED AT DEPARTURE: 06/14/22 20:00 Medical Decision Making <Darlyn Ng MD - Last Filed: 06/30/22 13:09> Avery Sharp is a 57-year-old man with history of hyperlipidemia, mitral valve prolapse, anxiety, trigeminal neuralgia, GERD, hypertension, diabetes, hypothyroidism, schizoaffective disorder presenting to the emergency department with chest pain. 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 Pt reports that this has been intermittent but is not occurring at this time. He also reports some mild aching in his left chest that has been intermittent, occurred earlier today but not occuring now. This aching has come and gone over the past few years, denies having the pinching sensation in the past. Denies any other pain, cough, SOB, fever, vomiting, diarrhea, numbness, weakness, rash. Both aching and pinching non- exertional, non-positional. No personal or family hx of blood clots. No recent surgery or immobilization. On exam Pt is well and non-toxic, benign cardiopulmonary exam. Concern for MSK pain, GERD, other. Low suspicion for ACS, pulmonary embolism. Exam/hx at this time not c/w acute aortic pathology, sepsis. Plan for EKG, CXR, screening labs. EKG non-diagnostic. Labs show neg trop, hypomagnesemia, anemia. Plan for repeat trop, mag repletion. Pt remains chest pain free. Pt signed out to Dr. Cordero at time of shift change with repeat trop, CXR, reassessment pending. Patient resting comfortably no acute distress. Chest pain-free labs imaging unremarkable. Low suspicion for ACS or PE. Medical Records Medical records reviewed: Yes I reviewed the patient's medical records. Lab Data Lab results reviewed: Yes I reviewed the patient's lab results. ECG Data Attestation: I personally reviewed and interpreted this ECG (s) as follows: Interpretation: EKG shows sinus rhythm at 92, normal axis, no acute ischemic changes, nondiagnostic EKG <Lb Cordero MD - Last Filed: 06/14/22 19:49> Patient resting comfortably no acute distress. Chest pain-free labs imaging unremarkable. Low suspicion for ACS or PE. HPI <Darlyn Ng MD - Last Filed: 06/30/22 13:09> General Mode of arrival: ambulatory . Date/Time Provider Initiated Documentation: 06/14/22 13:55 . Limitations to Documentation: no limitations . Information obtained by: patient, RN notes reviewed and old records reviewed . HPI Narrative: Avery Sharp is a 57-year-old man with history of hyperlipidemia, mitral valve prolapse, anxiety, trigeminal neuralgia, GERD, hypertension, diabetes, hypothyroidism, schizoaffective disorder presenting to the emergency department with chest pain. 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 Pt reports that this has been intermittent but does not seem to be occurring at this time. He also reports some mild aching in his left chest that has been intermittent, occurred earlier today but not occuring now. This aching has come and gone over the past few years, denies having the pinching sensation in the past. Denies any other pain, cough, SOB, fever, vomiting, diarrhea, numbness, weakness, rash. Both aching and pinching non-exertional, non-positional. Related Data Home Medications Medication Instructions Recorded Confirmed loratadine 10 mg capsule (Claritin 1 cap PO DAILY #90 tabs 12/16/14 06/28/22 Liqui-Gel) aspirin,buffered (calcium 325 mg PO DAILY 11/18/16 06/28/22 carbonate-magnesium) 325 mg tablet benztropine 0.5 mg tablet 0.5 mg PO BID 11/18/16 06/28/22 fluoxetine 40 mg capsule 80 mg PO DAILY 10/03/20 06/28/22 lactulose 10 gram/15 mL oral 20 g PO DIRECTED PRN 10/03/20 06/28/22 solution risperidone microspheres 25 mg/2 25 mg IM USEASDIRECTD 10/03/20 06/28/22 mL intramuscular susp,ext release (Risperdal Consta) esomeprazole magnesium 20 mg 20 mg PO DAILY 10/09/20 06/28/22 capsule,delayed release (Nexium) albuterol sulfate 90 mcg/actuation 2 inh inhalation Q6H PRN shortness 12/15/20 06/28/22 breath activated powder inhaler of breath or wheezing #1 ea multivitamin 1 tab PO DAILY 01/26/21 06/28/22 vitamin A 10,000 unit capsule 10,000 unit PO DAILY 01/26/21 06/28/22 lorazepam 1 mg tablet 1 mg PO QID 07/05/21 06/28/22 chlorhexidine gluconate 0.12 % 15 ml mucous membrane BID dental 09/06/21 06/28/22 mouthwash (Peridex) problem #473 mL gabapentin 300 mg capsule 300 mg PO QID 03/05/22 06/28/22 metformin 500 mg tablet 1 tab PO BID 03/18/22 06/28/22 omeprazole 20 mg capsule,delayed 20 mg PO DAILY 03/18/22 06/28/22 release galcanezumab-gnlm 120 mg/mL 120 mg subcut QMONTH #1 mL 04/05/22 06/28/22 subcutaneous pen injector (Emgality Pen) prochlorperazine maleate 10 mg See Rx Instructions .Route 05/02/22 06/28/22 tablet .COMPLEX #20 tabs atorvastatin 40 mg tablet 80 mg PO DAILY 06/01/22 06/28/22 atenolol 25 mg tablet See Rx Instructions .Route 06/02/22 06/28/22 .COMPLEX #90 tabs sumatriptan succinate 100 mg tablet See Rx Instructions PO .COMPLEX #9 06/28/22 06/28/22 tabs Previous Rx's Medication Instructions Recorded albuterol sulfate 90 mcg/actuation 2 inh inhalation Q6H PRN shortness 12/15/20 breath activated powder inhaler of breath or wheezing #1 ea chlorhexidine gluconate 0.12 % 15 ml mucous membrane BID dental 09/06/21 mouthwash (Peridex) problem #473 mL galcanezumab-gnlm 120 mg/mL 120 mg subcut QMONTH #1 mL 04/05/22 subcutaneous pen injector (Emgality Pen) prochlorperazine maleate 10 mg See Rx Instructions .Route 05/02/22 tablet .COMPLEX #20 tabs atenolol 25 mg tablet See Rx Instructions .Route 06/02/22 .COMPLEX #90 tabs sumatriptan succinate 100 mg tablet See Rx Instructions PO .COMPLEX #9 06/28/22 tabs Allergies Allergy/AdvReac Type Severity Reaction Status Date / Time buspirone Allergy Verified 06/28/22 11:06 paliperidone Allergy Verified 06/28/22 11:06 paroxetine HCl [From Paxil] Allergy Verified 06/28/22 11:06 sertraline Allergy Verified 06/28/22 11:06 ziprasidone [From Geodon] Allergy Other (See Verified 06/28/22 11:06 Comment) aripiprazole [From Abilify] AdvReac Intermediate INVOLUNTARY Verified 06/28/22 11:06 MUSCLE MOVEMENTS divalproex sodium AdvReac Intermediate INVOLUNTARY Verified 06/28/22 11:06 [From Depakote] MUSCLE MOVEMENTS mirtazapine AdvReac Intermediate INVOLUNTARY Verified 06/28/22 11:06 MUSCLE MOVEMENTS risperidone AdvReac Intermediate INVOLUNTARY Verified 06/28/22 11:06 MUSCLE MOVEMENTS benztropine mesylate AdvReac elevated Verified 06/28/22 11:06 [From Cogentin] blood sugars enviornmental Allergy Mild Wheezing Uncoded 06/28/22 11:06 General Stated Complaint: Chest Pain CARLOS: 3 Review of Systems <Darlyn Ng MD - Last Filed: 06/30/22 13:09> Narrative: Constitutional: denies fevers Eyes: denies eye pain ENT: denies ear pain, dental pain, sore throat Cardiovascular: denies edema, reports chest pain Respiratory: denies SOB, cough GI: denies abdominal pain, vomiting, diarrhea : denies flank pain MSK: denies back pain, neck pain, arthralgias, myalgias Skin: denies rash Neuro: denies headaches, numbness, weakness PFSH <Darlyn Ng MD - Last Filed: 06/30/22 13:09> All Active Problems Chest pain (Acute) Hypomagnesemia (Acute) Medication overuse headache (Acute) Drug-seeking behavior (Chronic ~09/20/21) Requests Ritalin from providers Broken teeth (Chronic) Anemia (Chronic) Hiatal hernia (Chronic) protonix not effective, nexium works better 02/12/18 Hypertension (Chronic) pt requests brand name Tenormin vs atenolol 04/02/18 Allergic rhinitis (Chronic) lortadine Tobacco use disorder (Chronic) started 2013 1.5 ppd, pipe 1-7/week, QUIT LATE OCT 2021 Poor dentition (Acute) Obesity (Chronic) BMI 52 Migraine (Chronic) Migraine headache without aura (Acute) Chronic headache (Acute) Chest pain (Acute) Left-sided chest wall pain (Acute) Depression (Acute 10/02/14) Diabetes mellitus type 2 in obese (Acute 09/09/14) GERD (gastroesophageal reflux disease) (Acute 09/07/14) Hypercholesterolemia (Chronic 09/07/14) pt insists on lipitor 80 mg due to family hx Hypothyroidism (acquired) (Acute 09/07/14) Schizoaffective disorder (Acute 09/07/14) FREDDIE Thakkar 09/2014- [facility], [facility] inpatient Medical History Anxiety Dental caries Hyperlipidemia Mitral valve prolapse Peripheral neuropathy Trigeminal neuralgia Surgical History No significant past surgical history Family History Father Heart disease [place] Social History Smoking/Tobacco Use Status: Current every day Tobacco Type: cigarettes, pipe Years: 8 Other: States equivalent to 1.5 packs cigarettes and cigars Smoking risk assessment performed?: Yes Alcohol Intake: never Drug use: Never Substance use type: does not use Adopted: No Caregiver/Support person: No Foster care: No Household members: none Housing: apartment Number of Children: 2 number of grandchildren: 1 Communication Needs: Corrective Lenses Education Level: college Do you need help understanding health information?: Always current occupation: Unemployed/Leave of absence Sexually active: No Do you think of yourself as: Decline to provide Current gender identity: male What type of physical activity do you participate in: other Details: weight lifting Frequency: 3-4 times per week Magalie/Mu-Ism: Yarsanism Seatbelt use: always Drive intox or ride w/intox local driver: No Working smoke detector in home: Yes Fire extinguisher in home: Yes Carbon monox detector in home: Yes Do you feel safe at home: Yes (anxiety) Do you feel safe in your relationship?: Yes Exam <Darlyn Ng MD - Last Filed: 06/30/22 13:09> Narrative Exam Narrative: Constitutional: well and [id number], pleasant, conversing normally HENT: head atraumatic/normocephalic/normal inspection, mucous membranes moist Eyes: conjunctiva normal, sclera normal, pupils 3mm b/l Neck: no stridor, normal ROM, trachea midline Chest: normal inspection, no chest wall TTP Resp: normal work of breathing, LCTAB Cardio: normal rate, normal rhythm, no murmur appreciated GI: abdomen soft, non-tender, non-distended Back: normal inspection, no rash Skin: warm, dry, normal color, no rash Neuro: alert, not altered, grossly non-focal, normal tone, normal gait Ext: no edema Psych: normal mood, normal affect, normal behavior Course <Darlyn Ng MD - Last Filed: 06/30/22 13:09> Vital Signs Vital signs: Vital Signs Temperature 36.5 C 06/14/22 13:20 Pulse 97 H 06/14/22 13:20 Respiratory Rate 16 06/14/22 13:20 Blood Pressure 170/80 H 06/14/22 13:20 Pulse Oximetry 98 06/14/22 13:20 Temperature 36.5 C 06/14/22 13:20 Temperature Source Temporal Artery Scan 06/14/22 13:20 Pulse 97 H 06/14/22 13:20 Respiratory Rate 16 06/14/22 13:20 Respiratory Effort Non-Labored 06/14/22 14:52 Respiratory Depth Normal 06/14/22 14:52 Respiratory Pattern Normal 06/14/22 14:52 Blood Pressure 170/80 H 06/14/22 13:20 Blood Pressure Position Sitting 06/14/22 13:20 Pulse Oximetry 98 06/14/22 13:20 Oxygen Delivery Method Room Air 06/14/22 13:20 Oxygen Flow Rate 0 06/14/22 13:20 Pain Level 5 06/14/22 14:52 Lab/Test Results Lab/Test Results: Laboratory Tests Range/Units 06/14/22 06/14/22 14:50 14:50 WBC (4.4-10.8) 10^3/uL 8.08 RBC (4.36-5.78) 10^6/uL 3.71 L Hgb (13.5-17.5) g/dL 11.4 L Hct (40.0-50.0) % 33.4 L MCV (80-95) fL 90 MCH (27.0-33.0) pg 30.7 MCHC (32.0-36.0) % 34.1 RDW (11.8-14.1) % 12.3 Plt Count (130-400) 10^3/uL 153 MPV (8.0-11.0) fL 8.4 Immature Gran % 0.5 Neutrophils % 73.3 Lymphocytes % 16.3 Monocytes % 6.2 Eosinophils % 3.5 Basophils % 0.2 Nucleated RBC % (0.0-0.3) % 0.0 Absolute Neutrophils (1.2-6.7) 10^3/uL 5.92 Absolute Lymphocytes (1.2-3.4) 10^3/uL 1.32 Absolute Monocytes (0.1-0.8) 10^3/uL 0.50 Absolute Eosinophils (0.0-0.7) 10^3/uL 0.28 Absolute Basophils (0.0-0.2) 10^3/uL 0.02 Sodium (136-145) mmol/L 135 L Potassium (3.5-5.1) mmol/L 4.1 Chloride (98-107) mmol/L 98 Carbon Dioxide (21.0-32.0) mmol/L 30.7 Anion Gap (3-11) mmol/L 6.3 BUN (7-18) mg/dL 9 Creatinine (0.70-1.30) mg/dL 0.8 Estimated GFR/1.73 m2 (mL/min/1.73m2) >= 60.00 Glucose (74-106) mg/dL 283 H Calcium (8.5-10.1) mg/dL 8.6 Magnesium (1.8-2.4) mg/dL 1.5 L Total Bilirubin (0.2-1.0) mg/dL 0.3 AST (15-37) U/L 28 ALT (16-63) U/L 53 Alkaline Phosphatase (46-116) U/L 103 Troponin I (<or=60) ng/L < 50 Total Protein (6.4-8.2) g/dL 7.3 Albumin (3.4-5.0) g/dL 3.1 L Sign Out <Darlyn Ng MD - Last Filed: 06/30/22 13:09> Sign Out Data: Sign Out Comment: Patient signed out at time of shift change to Dr. Cordero with labs, reassessment pending. Last updated by Darlyn Ng MD at 06/14/22 17:28
[2022-06-14] MEDS: MAGNESIUM SULFATE 1 GM/100 ML BAG IVPB (17:24)
[2022-06-14 17:53] LABS: D-Dimer 402 ng/mlFEU (<500)
[2022-06-14 18:18] LABS: Troponin I < 50 ng/L (<or=60)
== END 2022-06-14 20:00 | disposition home or self-care (01) ==
PROVIDERS: Student in an Organized Health Care Education/Training Program; Emergency Provider Emergency Medicine; PCP Internal Medicine
DX: R07.9 Chest pain, unspecified (principal); E83.42 Hypomagnesemia; I10 Essential (primary) hypertension; E11.9 Type 2 diabetes mellitus without complications; F17.210 Nicotine dependence, cigarettes, uncomplicated; F17.290 Nicotine dependence, other tobacco product, uncomplicated; Z79.82 Long term (current) use of aspirin; Z79.84 Long term (current) use of oral hypoglycemic drugs
CPT/HCPCS: 36415; 80053; 93005; 96365; 99284; 71046; 83735; 84484; 85025; 85379; 93010; 99285; J3475

== ENCOUNTER 2022-07-20 09:35 | Emergency (ER) | payer MEDICAID, SELFPAY ==
[2022-07-20] VITALS (10 sets, daily range): BP systolic 114–151; BP diastolic 69–79; PULSE 62–71; RESP 14–18; TEMP 36.1–37; O2SAT 94–100
--- NOTE | 2022-07-20 09:30 | RT.EKG_ITS ---
APPROVED REPORT Exam: Resting ECG Reason for Exam: CHEST PAIN Patient Location: E HR:72 bpm ECG Measurements Heart Rate 72 AXIS WV 192 P 51 QRSd 95 QRS 27 QT 406 T 64 QTc 445 Conclusion Sinus rhythm...normal P axis, V-rate 60- 99. Sinus. Normal axis. No STEMI. I have reviewed and interpreted ECG and agree with software generated interpretation.
[2022-07-20 10:02] LABS: Abs Immature Grans 0.02 10^3/uL (0.0-0.06); Absolute Basophil Count 0.03 10^3/uL (0.0-0.2); Absolute Eosinophil Count 0.28 10^3/uL (0.0-0.7); Absolute Lymphocyte Count 1.42 10^3/uL (1.2-3.4); Absolute Monocyte Count 0.51 10^3/uL (0.1-0.8); Absolute Neutrophil Count 5.03 10^3/uL (1.2-6.7); Basophils % 0.4; Eosinophils % 3.8; HCT 34.4 % (40.0-50.0); HGB 11.9 g/dL (13.5-17.5); Immature Grans % 0.3; Lymphocytes % 19.5; MCH 30.4 pg (27.0-33.0); MCHC 34.6 % (32.0-36.0); MCV 88 fL (80-95); MPV 8.8 fL (8.0-11.0); Platelet Count 163 10^3/uL (130-400); RBC 3.91 10^6/uL (4.36-5.78); RDW 11.9 % (11.8-14.1); WBC 7.29 10^3/uL (4.4-10.8)
[2022-07-20 10:32] LABS: ALT 77 U/L (16-63); AST 59 U/L (15-37); Alkaline Phosphatase 131 U/L (46-116); Anion Gap 4.2 mmol/L (3-11); BUN 16 mg/dL (7-18); Bilirubin, Total 0.5 mg/dL (0.2-1.0); CO2 29.8 mmol/L (21.0-32.0); CREATININE 0.9 mg/dL (0.70-1.30); Calcium 8.9 mg/dL (8.5-10.1); Chloride 97 mmol/L (98-107); Estimated GFR 99.62 (mL/min/1.73m2); Glucose 348 mg/dL (74-106); Magnesium 1.6 mg/dL (1.8-2.4); Potassium 4.6 mmol/L (3.5-5.1); Sodium 131 mmol/L (136-145); Total Protein 7.6 g/dL (6.4-8.2); Troponin I < 50 ng/L (<or=60)
[2022-07-20 10:36] LABS: D-Dimer 441 ng/mlFEU (<500)
[2022-07-20] MEDS: LORazepam 1 MG TAB PO (10:51)
[2022-07-20] MEDS: Famotidine 20 MG/2 ML VIAL IVP (10:51)
[2022-07-20] MEDS: ACETAMINOPHEN 1,000 MG/100 ML BTL 400 MG IVPB (10:51)
[2022-07-20] MEDS: Ondansetron 4 MG/2 ML VIAL IVP (10:51)
--- NOTE | 2022-07-20 10:52 | ED.GENADUL_ITS ---
Discharge Plan Disposition Patient Disposition: HOME Condition: Stable Discharge Details Clinical Impression: Chronic chest pain Primary Care Provider: Orquidea Portillo ED Provider: [place] Viera Home Meds and New Rx's Prescriptions: Continued atorvastatin 40 mg tablet 80 mg PO DAILY chlorhexidine gluconate [Peridex] 0.12 % mouthwash 15 ml mucous membrane BID Qty: 473 5RF Rx Instructions: rinse and spit twice a day Emgality Pen 120 mg/mL pen injector 120 mg subcut QMONTH Qty: 1 11RF sumatriptan succinate 100 mg tablet See Rx Instructions PO .COMPLEX Qty: 9 5RF Rx Instructions: take 1 tab at onset of headache; if no relief, may repeat 1 tab after at least 2 hrs; max = 2 tabs/24 hrs PO Claritin Liqui-Gel 10 MG capsule 1 cap PO DAILY Qty: 90 prochlorperazine maleate 10 mg tablet See Rx Instructions .ROUTE .COMPLEX Qty: 20 5RF Dose Instruction: TAKE 1 TABLET BY MOUTH EVERY 8 HOURS NEEDED FOR NAUSEA AND VOMITING, HEADACHE Rx Instructions: TAKE 1 TABLET BY MOUTH EVERY 8 HOURS NEEDED FOR NAUSEA AND VOMITING, HEADACHE atenolol 25 mg tablet See Rx Instructions .ROUTE .COMPLEX Qty: 90 0RF Dose Instruction: TAKE 3 TABLETS BY MOUTH DAILY (DAW2) Rx Instructions: TAKE 3 TABLETS BY MOUTH DAILY (DAW2) esomeprazole magnesium [Nexium] 20 mg Capsule,Delayed Release(Dr/Ec) 20 mg PO DAILY multivitamin Tablet 1 tab PO DAILY vitamin A 10,000 unit Capsule 10,000 unit PO DAILY gabapentin 300 mg capsule 300 mg PO QID metformin 500 mg tablet 1 tab PO BID omeprazole 20 mg capsule,delayed release(DR/EC) 20 mg PO DAILY benztropine 0.5 MG tablet 0.5 mg PO BID aspirin,buffd-calcium carb-mag 325 MG tablet 325 mg PO DAILY fluoxetine 40 mg capsule 80 mg PO DAILY Label Comments: TK 2 CS PO QD Risperdal Consta 25 mg/2 mL suspension,extended rel recon 25 mg IM USEASDIRECTD Label Comments: INJECT ONE SYRINGE INTRAMUSCULARLY ONCE EVERY TWO WEEKS Rx Instructions: every 2 weeks lactulose 10 gram/15 mL solution 20 g PO DIRECTED PRN Label Comments: TAKE ONE TO TWO TABLESPOONS BY MOUTH NEEDED WHEN 3 DAYS PASS WITHOUT BOWEL MOVEMENT lorazepam 1 mg tablet 1 mg PO QID Label Comments: TK 1 T PO QAM THEN 2 TS HS Rx Instructions: 01/03/21 1 mg in am and 2 mg at hs Reports 1 mg in am, 1 mg in afternoon, 2 mg at hs albuterol sulfate 90 mcg/actuation aerosol powdr breath activated 2 inh IH Q6H PRN (Reason: shortness of breath or wheezing) Qty: 1 0RF Discharge Instructions Instructions: Chest Pain (ED), Chronic Pain (ED) Additional Instructions: Your blood tests, EKG and imaging today is reassuring and shows no evidence of acute concerning or significant findings. Drink plenty of fluids and get plenty of rest. Alternate tylenol and motrin as needed and directed for pain. Follow-up with your primary care doctor in 1 week. Return to the emergency department with any worsening or new concerning symptoms. Discharge Data Discharge Physician: [place] Viera Medical Decision Making [id number] -- 57-year-old male well-known to the emergency department with a history of multiple visits for chest pain, morbid obesity, anxiety, migraine, hypertension, hyperlipidemia, GERD, hypothyroidism, schizoaffective disorder and previously noted drug-seeking behavior presents for left-sided chest pain, shortness of breath and nausea that started while laying in bed upon awakening this morning. He states this is similar to his usual episodes of chest pain frequently. Vitals within normal limits. EKG notes a rate of 72, sinus, normal axis, no STEMI and nondiagnostic. Differential diagnosis includes ACS, GERD, anxiety, muscle strain, costochondritis. History and presentation does not appear consistent with PE or dissection. Will place an IV, obtain screening labs, imaging and give a dose of IV Tylenol, IV Pepcid, IV Zofran, oral Ativan and reassess. Labs and imaging reviewed. Glucose 348 which is close to his usual baseline. Normal bicarb and anion gap. Troponin negative. D-dimer negative. Magnesium 1.6. Minimal elevation of liver enzymes. Chest x-ray negative for acute di sease. 1330 --repeat troponin negative. Repeat EKG unchanged. Patient reassessed and he feels better and feels comfortable going home. Review of records note that patient has not had a recent stress test. Patient states he feels comfortable with a treadmill stress test. An order has been placed and patient notified that he will be contacted by the radiology department for scheduling.Advised to follow up with the primary care doctor for re-evaluation. Usual and customary return precautions given prior to discharge. Medical Records Medical records reviewed: Yes I reviewed the patient's medical records. Imaging Data Radiologic Study: Radiologist's impression: XR CHEST 2V PA ? LATERAL CLINICAL HISTORY:? chest pain, r/o acute disease TECHNIQUE:? 2D digital imaging was performed of the chest.? Three images were obtained.? PA and lateral views were obtained. COMPARISON:? CR XR CHEST 2V PA ? LATERAL from 06/14/2022 FINDINGS: MEDIASTINUM: Normal.? HEART: Normal. PULMONARY VASCULATURE: Normal. LUNGS: Clear. ? PLEURAL SPACE: No pleural effusion or pneumothorax. BONE:Within normal limits for the patient's age.? OTHER FINDINGS:Normal.? IMPRESSION: No acute pulmonary findings. Lab Data Lab results reviewed: Yes I reviewed the patient's lab results. Labs: Laboratory Tests Range/Units 07/20/22 07/20/22 07/20/22 09:55 09:55 09:55 WBC (4.4-10.8) 10^3/uL 7.29 RBC (4.36-5.78) 10^6/uL 3.91 L Hgb (13.5-17.5) g/dL 11.9 L Hct (40.0-50.0) % 34.4 L MCV (80-95) fL 88 MCH (27.0-33.0) pg 30.4 MCHC (32.0-36.0) % 34.6 RDW (11.8-14.1) % 11.9 Plt Count (130-400) 10^3/uL 163 MPV (8.0-11.0) fL 8.8 Immature Gran % 0.3 Neutrophils % 69.0 Lymphocytes % 19.5 Monocytes % 7.0 Eosinophils % 3.8 Basophils % 0.4 Nucleated RBC % (0.0-0.3) % 0.0 Absolute Neutrophils (1.2-6.7) 10^3/uL 5.03 Absolute Lymphocytes (1.2-3.4) 10^3/uL 1.42 Absolute Monocytes (0.1-0.8) 10^3/uL 0.51 Absolute Eosinophils (0.0-0.7) 10^3/uL 0.28 Absolute Basophils (0.0-0.2) 10^3/uL 0.03 D-Dimer (<500) ng/mlFEU 441 Sodium (136-145) mmol/L 131 L Potassium (3.5-5.1) mmol/L 4.6 Chloride (98-107) mmol/L 97 L Carbon Dioxide (21.0-32.0) mmol/L 29.8 Anion Gap (3-11) mmol/L 4.2 BUN (7-18) mg/dL 16 Creatinine (0.70-1.30) mg/dL 0.9 Est GFR (CKD-EPI 2020) (mL/min/1.73m2) 99.62 Glucose (74-106) mg/dL 348 H Calcium (8.5-10.1) mg/dL 8.9 Magnesium (1.8-2.4) mg/dL 1.6 L Total Bilirubin (0.2-1.0) mg/dL 0.5 AST (15-37) U/L 59 H ALT (16-63) U/L 77 H Alkaline Phosphatase (46-116) U/L 131 H Troponin I (<or=60) ng/L < 50 Total Protein (6.4-8.2) g/dL 7.6 Albumin (3.4-5.0) g/dL 3.0 L Range/Units 07/20/22 12:55 WBC (4.4-10.8) 10^3/uL RBC (4.36-5.78) 10^6/uL Hgb (13.5-17.5) g/dL Hct (40.0-50.0) % MCV (80-95) fL MCH (27.0-33.0) pg MCHC (32.0-36.0) % RDW (11.8-14.1) % Plt Count (130-400) 10^3/uL MPV (8.0-11.0) fL Immature Gran % Neutrophils % Lymphocytes % Monocytes % Eosinophils % Basophils % Nucleated RBC % (0.0-0.3) % Absolute Neutrophils (1.2-6.7) 10^3/uL Absolute Lymphocytes (1.2-3.4) 10^3/uL Absolute Monocytes (0.1-0.8) 10^3/uL Absolute Eosinophils (0.0-0.7) 10^3/uL Absolute Basophils (0.0-0.2) 10^3/uL D-Dimer (<500) ng/mlFEU Sodium (136-145) mmol/L Potassium (3.5-5.1) mmol/L Chloride (98-107) mmol/L Carbon Dioxide (21.0-32.0) mmol/L Anion Gap (3-11) mmol/L BUN (7-18) mg/dL Creatinine (0.70-1.30) mg/dL Est GFR (CKD-EPI 2020) (mL/min/1.73m2) Glucose (74-106) mg/dL Calcium (8.5-10.1) mg/dL Magnesium (1.8-2.4) mg/dL Total Bilirubin (0.2-1.0) mg/dL AST (15-37) U/L ALT (16-63) U/L Alkaline Phosphatase (46-116) U/L Troponin I (<or=60) ng/L < 50 Total Protein (6.4-8.2) g/dL Albumin (3.4-5.0) g/dL ECG Data Attestation: I personally reviewed and interpreted this ECG (s) as follows: Interpretation: #1 -- Rate of 72, sinus, normal axis, no STEMI. #2 -- Rate of 61, sinus, normal axis, no STEMI. HPI General Mode of arrival: EMS . Date/Time Provider Initiated Documentation: 07/20/22 09:46 . Limitations to Documentation: no limitations . Information obtained by: patient . HPI Narrative: Patient is a 57-year-old male well-known to the emergency department with multiple visits for chest pain with a history of anxiety, obesity, GERD, hypertension, lipidemia, diabetes, schizoaffective disorder and previous drug- seeking behavior who presents for chest pain that started after awakening this morning. He describes the pain as left-sided, constant and feels grabbing . He states it radiates to his left shoulder left arm. He also admitted to shortness of breath and nausea with the chest pain. Denies any recent fever, cough, vomiting, diarrhea, leg pain or swelling, recent surgery or recent travel. Related Data Home Medications Medication Instructions Recorded Confirmed loratadine 10 mg capsule (Claritin 1 cap PO DAILY #90 tabs 12/16/14 07/20/22 Liqui-Gel) aspirin,buffered (calcium 325 mg PO DAILY 11/18/16 07/20/22 carbonate-magnesium) 325 mg tablet benztropine 0.5 mg tablet 0.5 mg PO BID 11/18/16 07/20/22 fluoxetine 40 mg capsule 80 mg PO DAILY 10/03/20 07/20/22 lactulose 10 gram/15 mL oral 20 g PO DIRECTED PRN 10/03/20 07/20/22 solution risperidone microspheres 25 mg/2 25 mg IM USEASDIRECTD 10/03/20 07/20/22 mL intramuscular susp,ext release (Risperdal Consta) esomeprazole magnesium 20 mg 20 mg PO DAILY 10/09/20 07/20/22 capsule,delayed release (Nexium) albuterol sulfate 90 mcg/actuation 2 inh inhalation Q6H PRN shortness 12/15/20 07/20/22 breath activated powder inhaler of breath or wheezing #1 ea multivitamin 1 tab PO DAILY 01/26/21 07/20/22 vitamin A 10,000 unit capsule 10,000 unit PO DAILY 01/26/21 07/20/22 lorazepam 1 mg tablet 1 mg PO QID 07/05/21 07/20/22 chlorhexidine gluconate 0.12 % 15 ml mucous membrane BID dental 09/06/21 07/20/22 mouthwash (Peridex) problem #473 mL gabapentin 300 mg capsule 300 mg PO QID 03/05/22 07/20/22 metformin 500 mg tablet 1 tab PO BID 03/18/22 07/20/22 omeprazole 20 mg capsule,delayed 20 mg PO DAILY 03/18/22 07/20/22 release galcanezumab-gnlm 120 mg/mL 120 mg subcut QMONTH #1 mL 04/05/22 07/20/22 subcutaneous pen injector (Emgality Pen) prochlorperazine maleate 10 mg See Rx Instructions .Route 05/02/22 07/20/22 tablet .COMPLEX #20 tabs atorvastatin 40 mg tablet 80 mg PO DAILY 06/01/22 07/20/22 atenolol 25 mg tablet See Rx Instructions .Route 06/02/22 07/20/22 .COMPLEX #90 tabs sumatriptan succinate 100 mg tablet See Rx Instructions PO .COMPLEX #9 06/28/22 07/20/22 tabs Previous Rx's Medication Instructions Recorded albuterol sulfate 90 mcg/actuation 2 inh inhalation Q6H PRN shortness 12/15/20 breath activated powder inhaler of breath or wheezing #1 ea chlorhexidine gluconate 0.12 % 15 ml mucous membrane BID dental 09/06/21 mouthwash (Peridex) problem #473 mL galcanezumab-gnlm 120 mg/mL 120 mg subcut QMONTH #1 mL 04/05/22 subcutaneous pen injector (Emgality Pen) prochlorperazine maleate 10 mg See Rx Instructions .Route 05/02/22 tablet .COMPLEX #20 tabs atenolol 25 mg tablet See Rx Instructions .Route 06/02/22 .COMPLEX #90 tabs sumatriptan succinate 100 mg tablet See Rx Instructions PO .COMPLEX #9 06/28/22 tabs Allergies Allergy/AdvReac Type Severity Reaction Status Date / Time buspirone Allergy Verified 07/20/22 10:00 paliperidone Allergy Verified 07/20/22 10:00 paroxetine HCl [From Paxil] Allergy Verified 07/20/22 10:00 sertraline Allergy Verified 07/20/22 10:00 ziprasidone [From Geodon] Allergy Other (See Verified 07/20/22 10:00 Comment) aripiprazole [From Abilify] AdvReac Intermediate INVOLUNTARY Verified 07/20/22 10:00 MUSCLE MOVEMENTS divalproex sodium AdvReac Intermediate INVOLUNTARY Verified 07/20/22 10:00 [From Depakote] MUSCLE MOVEMENTS mirtazapine AdvReac Intermediate INVOLUNTARY Verified 07/20/22 10:00 MUSCLE MOVEMENTS risperidone AdvReac Intermediate INVOLUNTARY Verified 07/20/22 10:00 MUSCLE MOVEMENTS benztropine mesylate AdvReac elevated Verified 07/20/22 10:00 [From Cogentin] blood sugars enviornmental Allergy Mild Wheezing Uncoded 07/20/22 10:00 General Stated Complaint: Chest Pain CARLOS: 3 Review of Systems All systems reviewed & are unremarkable except as noted in HPI and below Constitutional Constitutional: Reports as per HPI, Denies chills and Denies fever(s) Eyes Eyes: Denies blurry vision ENT Ears, Nose, Mouth, and Throat: Denies dizziness, Denies sore throat and Denies throat swelling Cardiovascular Cardiovascular: Reports chest pain and Reports dyspnea Respiratory Respiratory: Denies cough and Reports dyspnea Gastrointestinal Gastrointestinal: Denies abdominal pain, Denies diarrhea and Denies vomiting Genitourinary Genitourinary: Denies hematuria and Denies dysuria Musculoskeletal Musculoskeletal: Denies back pain and Denies numbness Integumentary/Breasts Skin/Breast: Denies lesions and Denies rash Neurologic Neurologic: Denies dizziness, Denies localized weakness and Denies numbness Allergic/Immunologic Allergic/Immunologic: Denies throat swelling PFSH All Active Problems (Updated 07/20/22 @ 13:40 by [place] Viera DO) Chronic chest pain (Acute) Medication overuse headache (Acute) Drug-seeking behavior (Chronic ~09/20/21) Requests Ritalin from providers Broken teeth (Chronic) Anemia (Chronic) Hiatal hernia (Chronic) protonix not effective, nexium works better 02/12/18 Hypertension (Chronic) pt requests brand name Tenormin vs atenolol 04/02/18 Allergic rhinitis (Chronic) lortadine Tobacco use disorder (Chronic) started 2013 1.5 ppd, pipe 1-7/week, QUIT LATE OCT 2021 Poor dentition (Acute) Obesity (Chronic) BMI 52 Migraine (Chronic) Migraine headache without aura (Acute) Chronic headache (Acute) Chest pain (Acute) Left-sided chest wall pain (Acute) Depression (Acute 10/02/14) Diabetes mellitus type 2 in obese (Acute 09/09/14) GERD (gastroesophageal reflux disease) (Acute 09/07/14) Hypercholesterolemia (Chronic 09/07/14) pt insists on lipitor 80 mg due to family hx Hypothyroidism (acquired) (Acute 09/07/14) Schizoaffective disorder (Acute 09/07/14) Rebekah Mariscal YENI 09/2014- [facility] inpatient Medical History Anxiety Dental caries Hyperlipidemia Mitral valve prolapse Peripheral neuropathy Trigeminal neuralgia Surgical History No significant past surgical history Family History Father Heart disease MA Social History Smoking/Tobacco Use Status: Current every day Tobacco Type: cigarettes, pipe Years: 8 Other: States equivalent to 1.5 packs cigarettes and cigars Smoking risk assessment performed?: Yes Alcohol Intake: never Drug use: Never Substance use type: does not use Adopted: No Caregiver/Support person: No Foster care: No Household members: none Housing: apartment Number of Children: 2 number of grandchildren: 1 Communication Needs: Corrective Lenses Education Level: college Do you need help understanding health information?: Always current occupation: Unemployed/Leave of absence Sexually active: No Do you think of yourself as: Decline to provide Current gender identity: male What type of physical activity do you participate in: other Details: weight lifting Frequency: 3-4 times per week Magalie/Pentecostal: [employer] Seatbelt use: always Drive intox or ride w/intox lokie driver: No Working smoke detector in home: Yes Fire extinguisher in home: Yes Carbon monox detector in home: Yes Do you feel safe at home: Yes (anxiety) Do you feel safe in your relationship?: Yes Exam Const General: cooperative and no acute distress Orientation: alert, awake and oriented x3 HENMT Head: normal to inspection Mouth: oral mucosae normal Eyes General: appearance normal, both eyes and all related structures Neck Neck: normal visual inspection Resp Effort & Inspection: normal respiratory effort and able to speak in complete sentences Auscultation: clear to auscultation bilaterally Cardio Rate: regular rate Rhythm: regular rhythm GI Inspection: obesity Palpation: soft, not firm, no guarding, no masses, not rigid and nontender Skin General skin exam: no rashes or lesions noted Neuro General: patient alert, patient awake and patient oriented x3 Motor: muscle tone normal throughout Extrem General: normal to inspection, full ROM and no edema Psych Appearance: grossly normal Affect: normal affect Course Vital Signs Vital signs: Vital Signs Temperature 97.0 F L 07/20/22 09:38 Pulse 71 07/20/22 09:38 Respiratory Rate 18 07/20/22 09:38 Blood Pressure 151/76 H 07/20/22 09:38 Pulse Oximetry 100 07/20/22 09:38 Temperature 97.0 F L 07/20/22 09:38 Temperature Source Temporal Artery Scan 07/20/22 09:38 Pulse 71 07/20/22 09:38 Respiratory Rate 18 07/20/22 10:01 Respiratory Effort Non-Labored 07/20/22 10:01 Respiratory Depth Normal 07/20/22 10:01 Respiratory Pattern Normal 07/20/22 10:01 Blood Pressure 151/76 H 07/20/22 09:38 Blood Pressure Position Sitting 07/20/22 09:38 Pulse Oximetry 100 07/20/22 09:38 Oxygen Delivery Method Room Air 07/20/22 09:38 Oxygen Flow Rate 0 07/20/22 09:38 Pain Level 7 07/20/22 09:38 Lab/Test Results Lab/Test Results: Laboratory Tests Range/Units 07/20/22 07/20/22 07/20/22 09:55 09:55 09:55 WBC (4.4-10.8) 10^3/uL 7.29 RBC (4.36-5.78) 10^6/uL 3.91 L Hgb (13.5-17.5) g/dL 11.9 L Hct (40.0-50.0) % 34.4 L MCV (80-95) fL 88 MCH (27.0-33.0) pg 30.4 MCHC (32.0-36.0) % 34.6 RDW (11.8-14.1) % 11.9 Plt Count (130-400) 10^3/uL 163 MPV (8.0-11.0) fL 8.8 Immature Gran % 0.3 Neutrophils % 69.0 Lymphocytes % 19.5 Monocytes % 7.0 Eosinophils % 3.8 Basophils % 0.4 Nucleated RBC % (0.0-0.3) % 0.0 Absolute Neutrophils (1.2-6.7) 10^3/uL 5.03 Absolute Lymphocytes (1.2-3.4) 10^3/uL 1.42 Absolute Monocytes (0.1-0.8) 10^3/uL 0.51 Absolute Eosinophils (0.0-0.7) 10^3/uL 0.28 Absolute Basophils (0.0-0.2) 10^3/uL 0.03 D-Dimer (<500) ng/mlFEU 441 Sodium (136-145) mmol/L 131 L Potassium (3.5-5.1) mmol/L 4.6 Chloride (98-107) mmol/L 97 L Carbon Dioxide (21.0-32.0) mmol/L 29.8 Anion Gap (3-11) mmol/L 4.2 BUN (7-18) mg/dL 16 Creatinine (0.70-1.30) mg/dL 0.9 Est GFR (CKD-EPI 2020) (mL/min/1.73m2) 99.62 Glucose (74-106) mg/dL 348 H Calcium (8.5-10.1) mg/dL 8.9 Magnesium (1.8-2.4) mg/dL 1.6 L Total Bilirubin (0.2-1.0) mg/dL 0.5 AST (15-37) U/L 59 H ALT (16-63) U/L 77 H Alkaline Phosphatase (46-116) U/L 131 H Troponin I (<or=60) ng/L < 50 Total Protein (6.4-8.2) g/dL 7.6 Albumin (3.4-5.0) g/dL 3.0 L
--- NOTE | 2022-07-20 11:00 | DI.RAD_ITS ---
Exam(s) XR CHEST 2V PA LATERAL EXAM: XR CHEST 2V PA LATERAL CLINICAL HISTORY: chest pain, r/o acute disease TECHNIQUE: 2D digital imaging was performed of the chest. Three images were obtained. PA and later al views were obtained. COMPARISON: CR XR CHEST 2V PA LATERAL from 06/14/2022 FINDINGS: MEDIASTINUM: Normal. HEART: Normal. PULMONARY VASCULATURE: Normal. LUNGS: Clear. PLEURAL SPACE: No pleural effusion or pneumothorax. BONE:Within normal limits for the patient's age. OTHER FINDINGS:Normal. IMPRESSION: No acute pulmonary findings. DATA REPOSITORY: RADIATION DOSE DELIVERED:
--- NOTE | 2022-07-20 12:45 | RT.EKG_ITS ---
APPROVED REPORT Exam: Resting ECG Reason for Exam: chest pain Patient Location: E HR:61 bpm ECG Measurements Heart Rate 61 AXIS VT 198 P 26 QRSd 91 QRS 22 QT 428 T 69 QTc 431 Conclusion Sinus rhythm...normal P axis, V-rate 60- 99. Sinus. No STEMI. I have reviewed and interpreted ECG and agree with software generated interpretation.
[2022-07-20 13:25] LABS: Troponin I < 50 ng/L (<or=60)
--- NOTE | 2022-07-20 14:49 | NUR.NOTE ---
Nursing Note: Request for Regular Exercise Treadmill Stress Test/chest pain;faxed to DI. Instructions given to pt.
== END 2022-07-20 14:27 | disposition home or self-care (01) ==
PROVIDERS: Emergency Provider Physician Assistant; PCP Internal Medicine
DX: R07.9 Chest pain, unspecified (principal); R06.02 Shortness of breath; R11.0 Nausea; I10 Essential (primary) hypertension; F17.210 Nicotine dependence, cigarettes, uncomplicated; F17.290 Nicotine dependence, other tobacco product, uncomplicated
CPT/HCPCS: 36415; 80053; 93005; 96374; 96375; 99284; 71046; 83735; 84484; 85025; 85379; 93010; J0131; J2405

== ENCOUNTER 2022-09-05 11:31 | Emergency (ER) | payer MEDICAID, SELFPAY ==
[2022-09-05] VITALS (21 sets, daily range): BP systolic 121–153; BP diastolic 63–84; PULSE 79–95; RESP 12–24; TEMP 36.6–36.7; O2SAT 94–98
--- NOTE | 2022-09-05 11:15 | RT.EKG_ITS ---
APPROVED REPORT Exam: Resting ECG Reason for Exam: chest pain Patient Location: E HR:95 bpm ECG Measurements Heart Rate 95 AXIS CA 165 P 60 QRSd 104 QRS 56 QT 377 T 15 QTc 474 Conclusion Sinus rhythm...normal P axis, V-rate 60- 99
--- NOTE | 2022-09-05 12:09 | CMACTNOTE_ITS ---
- If Service Date Differs Date of service: 09/05/22 Time of Service: 12:09 Care Management Activity Note Avery presents in the ED for chest pain. He expresses concern that he is not home for his [facility] med drop. ED provider requests that CM contact [facility] and arrange for his medication to be dropped off at his home at a later time this afternoon. CM telephones [facility] and speaks with Garret Beckett, [employer], who agrees to ensure Avery gets his medication today after he returns home from the hospital.
--- NOTE | 2022-09-05 12:09 | PDOC.ERCMACT ---
- If Service Date Differs Date of service: 09/05/22 Time of Service: 12:09 Care Management Activity Note Avery presents in the ED for chest pain. He expresses concern that he is not home for his [facility] med drop. ED provider requests that CM contact [facility] and arrange for his medication to be dropped off at his home at a later time this afternoon. CM telephones [facility] and speaks with Garret Beckett, [employer] [facility], who agrees to ensure Avery gets his medication today after he returns home from the hospital.
[2022-09-05] MEDS: LORazepam 1 MG TAB PO (12:15)
[2022-09-05 12:23] LABS: Abs Immature Grans 0.03 10^3/uL (0.0-0.06); Absolute Basophil Count 0.02 10^3/uL (0.0-0.2); Absolute Eosinophil Count 0.26 10^3/uL (0.0-0.7); Absolute Lymphocyte Count 1.04 10^3/uL (1.2-3.4); Absolute Monocyte Count 0.47 10^3/uL (0.1-0.8); Absolute Neutrophil Count 5.01 10^3/uL (1.2-6.7); Basophils % 0.3; Eosinophils % 3.8; HCT 32.8 % (40.0-50.0); HGB 11.2 g/dL (13.5-17.5); Immature Grans % 0.4; Lymphocytes % 15.2; MCH 30.4 pg (27.0-33.0); MCHC 34.1 % (32.0-36.0); MCV 89 fL (80-95); MPV 8.7 fL (8.0-11.0); Monocytes % 6.9; Neutrophils % 73.4; Platelet Count 184 10^3/uL (130-400); RBC 3.68 10^6/uL (4.36-5.78); RDW 12.5 % (11.8-14.1); RDW-SD 40.5 fL; WBC 6.83 10^3/uL (4.4-10.8)
--- NOTE | 2022-09-05 12:46 | W.ED.GENAD ---
Discharge Plan Disposition Patient Disposition: HOME Condition: Stable Discharge Details Clinical Impression: Chest pain, Hypomagnesemia Primary Care Provider: Orquidea Portillo ED Provider: Lucille Farley Home Meds and New Rx's Prescriptions: New Nu-Mag 71.5 mg tablet,delayed release (DR/EC) 71.5 mg PO DAILY Qty: 20 0RF Continued atorvastatin 40 mg tablet 80 mg PO DAILY chlorhexidine gluconate [Peridex] 0.12 % mouthwash 15 ml mucous membrane BID Qty: 473 5RF Rx Instructions: rinse and spit twice a day Emgality Pen 120 mg/mL pen injector 120 mg subcut QMONTH Qty: 1 11RF sumatriptan succinate 100 mg tablet See Rx Instructions PO .COMPLEX Qty: 9 5RF Rx Instructions: take 1 tab at onset of headache; if no relief, may repeat 1 tab after at least 2 hrs; max = 2 tabs/24 hrs PO Claritin Liqui-Gel 10 MG capsule 1 cap PO DAILY Qty: 90 prochlorperazine maleate 10 mg tablet See Rx Instructions .ROUTE .COMPLEX Qty: 20 5RF Dose Instruction: TAKE 1 TABLET BY MOUTH EVERY 8 HOURS NEEDED FOR NAUSEA AND VOMITING, HEADACHE Rx Instructions: TAKE 1 TABLET BY MOUTH EVERY 8 HOURS NEEDED FOR NAUSEA AND VOMITING, HEADACHE atenolol 25 mg tablet 25 mg PO DAILY Qty: 30 0RF Rx Instructions: To take with 50mg for TDD 75mg daily atenolol 50 mg tablet 50 mg PO DAILY Qty: 30 0RF Rx Instructions: To take with 25mg dose for TDD 75mg daily esomeprazole magnesium [Nexium] 20 mg Capsule,Delayed Release(Dr/Ec) 20 mg PO DAILY multivitamin Tablet 1 tab PO DAILY vitamin A 10,000 unit Capsule 10,000 unit PO DAILY gabapentin 300 mg capsule 300 mg PO QID metformin 500 mg tablet 1 tab PO BID omeprazole 20 mg capsule,delayed release(DR/EC) 20 mg PO DAILY benztropine 0.5 MG tablet 0.5 mg PO BID aspirin,buffd-calcium carb-mag 325 MG tablet 325 mg PO DAILY fluoxetine 40 mg capsule 80 mg PO DAILY Label Comments: TK 2 CS PO QD Risperdal Consta 25 mg/2 mL suspension,extended rel recon 25 mg IM USEASDIRECTD Label Comments: INJECT ONE SYRINGE INTRAMUSCULARLY ONCE EVERY TWO WEEKS Rx Instructions: every 2 weeks lactulose 10 gram/15 mL solution 20 g PO DIRECTED PRN Label Comments: TAKE ONE TO TWO TABLESPOONS BY MOUTH NEEDED WHEN 3 DAYS PASS WITHOUT BOWEL MOVEMENT lorazepam 1 mg tablet 1 mg PO QID Label Comments: TK 1 T PO QAM THEN 2 TS HS Rx Instructions: 01/03/21 1 mg in am and 2 mg at hs Reports 1 mg in am, 1 mg in afternoon, 2 mg at hs albuterol sulfate 90 mcg/actuation aerosol powdr breath activated 2 inh IH Q6H PRN (Reason: shortness of breath or wheezing) Qty: 1 0RF Discharge Instructions Instructions: Chest Pain (ED), Hypomagnesemia (ED) Additional Instructions: Your medications will be delivered today Please take the magnesium starting tomorrow You received a dose today Follow-up with your doctor for your stress test and return earlier should you have new or worsening complaints Referrals: Orquidea Portillo MD [Primary Care Provider] - Discharge Data Discharge Date/Time-TO BE ENTERED AT DEPARTURE: 09/05/22 13:54 Medical Decision Making Patient had a negative troponin with several days of symptoms, he has had numerous cardiac work-ups in the past all of which have been negative Patient is currently pain-free, I think he stable for discharge home at this time, we did ensure that he would have his medications when he arrives home and will have close outpatient reassessment with his PCP Discharged home in stable condition with stable vital Medical Records Medical records reviewed: Yes I reviewed the patient's medical records. Lab Data Lab results reviewed: Yes I reviewed the patient's lab results. HPI General Date/Time Provider Initiated Documentation: 09/05/22 11:38. HPI Narrative: This 57-year-old male presents with left sided chest pain that started while he was watching a movie approximately an hour and a half prior to arrival. He states the pain that he had previously but it does come and go. He denies any nausea, diaphoresis, exertional component of symptoms. He denies any calf pain or swelling or history of coagulopathy. He does have a history of hypertension and hyperlipidemia. He does smoke tobacco per patient. Denies any Coronary artery disease and did not present for his stress test that was ordered previously. Pain is exacerbated with palpation. Related Data Home Medications Medication Instructions Recorded Confirmed loratadine 10 mg capsule (Claritin 1 cap PO DAILY #90 tabs 12/16/14 07/20/22 Liqui-Gel) aspirin,buffered (calcium 325 mg PO DAILY 11/18/16 07/20/22 carbonate-magnesium) 325 mg tablet benztropine 0.5 mg tablet 0.5 mg PO BID 11/18/16 07/20/22 fluoxetine 40 mg capsule 80 mg PO DAILY 10/03/20 07/20/22 lactulose 10 gram/15 mL oral 20 g PO DIRECTED PRN 10/03/20 07/20/22 solution risperidone microspheres 25 mg/2 25 mg IM USEASDIRECTD 10/03/20 07/20/22 mL intramuscular susp,ext release (Risperdal Consta) esomeprazole magnesium 20 mg 20 mg PO DAILY 10/09/20 07/20/22 capsule,delayed release (Nexium) albuterol sulfate 90 mcg/actuation 2 inh inhalation Q6H PRN shortness 12/15/20 07/20/22 breath activated powder inhaler of breath or wheezing #1 ea multivitamin 1 tab PO DAILY 01/26/21 07/20/22 vitamin A 10,000 unit capsule 10,000 unit PO DAILY 01/26/21 07/20/22 lorazepam 1 mg tablet 1 mg PO QID 07/05/21 07/20/22 chlorhexidine gluconate 0.12 % 15 ml mucous membrane BID dental 09/06/21 07/20/22 mouthwash (Peridex) problem #473 mL gabapentin 300 mg capsule 300 mg PO QID 03/05/22 07/20/22 metformin 500 mg tablet 1 tab PO BID 03/18/22 07/20/22 omeprazole 20 mg capsule,delayed 20 mg PO DAILY 03/18/22 07/20/22 release galcanezumab-gnlm 120 mg/mL 120 mg subcut QMONTH #1 mL 04/05/22 07/20/22 subcutaneous pen injector (Emgality Pen) prochlorperazine maleate 10 mg See Rx Instructions .Route 05/02/22 07/20/22 tablet .COMPLEX #20 tabs atorvastatin 40 mg tablet 80 mg PO DAILY 06/01/22 07/20/22 sumatriptan succinate 100 mg tablet See Rx Instructions PO .COMPLEX #9 06/28/22 07/20/22 tabs atenolol 25 mg tablet 25 mg PO DAILY #30 tabs 09/04/22 atenolol 50 mg tablet 50 mg PO DAILY #30 tabs 09/04/22 magnesium chloride 71.5 mg 71.5 mg PO DAILY #20 tabs 09/05/22 (magnesium chloride) tablet,delayed release (Nu-Mag) Previous Rx's Medication Instructions Recorded albuterol sulfate 90 mcg/actuation 2 inh inhalation Q6H PRN shortness 12/15/20 breath activated powder inhaler of breath or wheezing #1 ea chlorhexidine gluconate 0.12 % 15 ml mucous membrane BID dental 09/06/21 mouthwash (Peridex) problem #473 mL galcanezumab-gnlm 120 mg/mL 120 mg subcut QMONTH #1 mL 04/05/22 subcutaneous pen injector (Emgality Pen) prochlorperazine maleate 10 mg See Rx Instructions .Route 05/02/22 tablet .COMPLEX #20 tabs sumatriptan succinate 100 mg tablet See Rx Instructions PO .COMPLEX #9 06/28/22 tabs atenolol 25 mg tablet 25 mg PO DAILY #30 tabs 09/04/22 atenolol 50 mg tablet 50 mg PO DAILY #30 tabs 09/04/22 magnesium chloride 71.5 mg 71.5 mg PO DAILY #20 tabs 09/05/22 (magnesium chloride) tablet,delayed release (Nu-Mag) Allergies Allergy/AdvReac Type Severity Reaction Status Date / Time buspirone Allergy Verified 07/20/22 10:00 paliperidone Allergy Verified 07/20/22 10:00 paroxetine HCl [From Paxil] Allergy Verified 07/20/22 10:00 sertraline Allergy Verified 07/20/22 10:00 ziprasidone [From Geodon] Allergy Other (See Verified 07/20/22 10:00 Comment) aripiprazole [From Abilify] AdvReac Intermediate INVOLUNTARY Verified 07/20/22 10:00 MUSCLE MOVEMENTS divalproex sodium AdvReac Intermediate INVOLUNTARY Verified 07/20/22 10:00 [From Depakote] MUSCLE MOVEMENTS mirtazapine AdvReac Intermediate INVOLUNTARY Verified 07/20/22 10:00 MUSCLE MOVEMENTS risperidone AdvReac Intermediate INVOLUNTARY Verified 07/20/22 10:00 MUSCLE MOVEMENTS benztropine mesylate AdvReac elevated Verified 07/20/22 10:00 [From Cogentin] blood sugars enviornmental Allergy Mild Wheezing Uncoded 07/20/22 10:00 General Stated Complaint: [facility]Medical CARLOS: 3 Review of Systems All systems reviewed & are unremarkable except as noted in HPI and below PFSH All Active Problems (Updated 09/05/22 @ 13:29 by JORDANA Salazar) Chest pain (Acute) Hypomagnesemia (Acute) Medication overuse headache (Acute) Drug-seeking behavior (Chronic ~09/20/21) Requests Ritalin from providers Broken teeth (Chronic) Anemia (Chronic) Hiatal hernia (Chronic) protonix not effective, nexium works better 02/12/18 Hypertension (Chronic) pt requests brand name Tenormin vs atenolol 04/02/18 Allergic rhinitis (Chronic) lortadine Tobacco use disorder (Chronic) started 2013 1.5 ppd, pipe 1-7/week, QUIT LATE OCT 2021 Poor dentition (Acute) Obesity (Chronic) BMI 52 Migraine (Chronic) Migraine headache without aura (Acute) Chronic headache (Acute) Chest pain (Acute) Left-sided chest wall pain (Acute) Depression (Acute 10/02/14) Diabetes mellitus type 2 in obese (Acute 09/09/14) GERD (gastroesophageal reflux disease) (Acute 09/07/14) Hypercholesterolemia (Chronic 09/07/14) pt insists on lipitor 80 mg due to family hx Hypothyroidism (acquired) (Acute 09/07/14) Schizoaffective disorder (Acute 09/07/14) Rebekah Mariscal [facility] 09/2014- [facility] inpatient Medical History Anxiety Dental caries Hyperlipidemia Mitral valve prolapse Peripheral neuropathy Trigeminal neuralgia Surgical History No significant past surgical history Family History Father Heart disease [place] Social History Smoking/Tobacco Use Status: Current every day Tobacco Type: cigarettes, pipe Years: 8 Other: States equivalent to 1.5 packs cigarettes and cigars Smoking risk assessment performed?: Yes Alcohol Intake: never Drug use: Never Substance use type: does not use Adopted: No Caregiver/Support person: No Foster care: No Household members: none Housing: apartment Number of Children: 2 number of grandchildren: 1 Communication Needs: Corrective Lenses Education Level: college Do you need help understanding health information?: Always current occupation: Unemployed/Leave of absence Sexually active: No Do you think of yourself as: Decline to provide Current gender identity: male What type of physical activity do you participate in: other Details: weight lifting Frequency: 3-4 times per week Magalie/Episcopalian: [employer] Seatbelt use: always Drive intox or ride w/intox cdl a driver: No Working smoke detector in home: Yes Fire extinguisher in home: Yes Carbon monox detector in home: Yes Do you feel safe at home: Yes (anxiety) Do you feel safe in your relationship?: Yes Exam Const General: cooperative and comfortable Eyes Pupils: PERRL Resp Effort & Inspection: normal respiratory effort Auscultation: clear to auscultation bilaterally Cardio Rate: regular rate Rhythm: regular rhythm GI Inspection: normal to inspection Skin General skin exam: no rashes or lesions noted Rashes: no rashes Neuro General: patient alert and patient oriented x3 Cognition: normal cognition Speech: speech normal Extrem General: normal to inspection Other: no calf swelling or tenderness distal pulses intact Course Vital Signs Vital signs: Vital Signs Temperature 36.7 C 09/05/22 11:34 Pulse 93 H 09/05/22 11:34 Respiratory Rate 14 09/05/22 11:34 Blood Pressure 153/80 H 09/05/22 11:34 Pulse Oximetry 97 09/05/22 11:34 Temperature 36.7 C 09/05/22 11:34 Temperature Source Temporal Artery Scan 09/05/22 11:34 Pulse 93 H 09/05/22 11:34 Respiratory Rate 14 09/05/22 11:44 Respiratory Effort Non-Labored 09/05/22 11:44 Respiratory Depth Normal 09/05/22 11:44 Respiratory Pattern Normal 09/05/22 11:44 Blood Pressure 153/80 H 09/05/22 11:34 Blood Pressure Position Sitting 09/05/22 11:34 Pulse Oximetry 97 09/05/22 11:34 Oxygen Delivery Method Room Air 09/05/22 11:34 Oxygen Flow Rate 0 09/05/22 11:34 Lab/Test Results Lab/Test Results: Laboratory Tests Range/Units 09/05/22 09/05/22 12:18 12:18 WBC (4.4-10.8) 10^3/uL 6.83 RBC (4.36-5.78) 10^6/uL 3.68 L Hgb (13.5-17.5) g/dL 11.2 L Hct (40.0-50.0) % 32.8 L MCV (80-95) fL 89 MCH (27.0-33.0) pg 30.4 MCHC (32.0-36.0) % 34.1 RDW (11.8-14.1) % 12.5 Plt Count (130-400) 10^3/uL 184 MPV (8.0-11.0) fL 8.7 Immature Gran % 0.4 Neutrophils % 73.4 Lymphocytes % 15.2 Monocytes % 6.9 Eosinophils % 3.8 Basophils % 0.3 Nucleated RBC % (0.0-0.3) % 0.0 Absolute Neutrophils (1.2-6.7) 10^3/uL 5.01 Absolute Lymphocytes (1.2-3.4) 10^3/uL 1.04 L Absolute Monocytes (0.1-0.8) 10^3/uL 0.47 Absolute Eosinophils (0.0-0.7) 10^3/uL 0.26 Absolute Basophils (0.0-0.2) 10^3/uL 0.02 Sodium Cancelled Potassium Cancelled Chloride Cancelled Carbon Dioxide Cancelled Anion Gap Cancelled BUN Cancelled Creatinine Cancelled Est GFR (CKD-EPI 2020) Cancelled Glucose Cancelled Calcium Cancelled Total Bilirubin Cancelled AST Cancelled ALT Cancelled Alkaline Phosphatase Cancelled Total Protein Cancelled Albumin Cancelled
[2022-09-05 12:49] LABS: ALT 64 U/L (16-63); AST 40 U/L (15-37); Albumin 3.2 g/dL (3.4-5.0); Alkaline Phosphatase 101 U/L (46-116); Anion Gap 5.2 mmol/L (3-11); BUN 4 mg/dL (7-18); Bilirubin, Total 0.7 mg/dL (0.2-1.0); CO2 31.8 mmol/L (21.0-32.0); CREATININE 0.8 mg/dL (0.70-1.30); Calcium 8.9 mg/dL (8.5-10.1); Chloride 99 mmol/L (98-107); Estimated GFR 103.22 (mL/min/1.73m2); Glucose 215 mg/dL (74-106); Lipase 27 U/L (73-393); Magnesium 1.4 mg/dL (1.8-2.4); Potassium 4.1 mmol/L (3.5-5.1); Sodium 136 mmol/L (136-145); Total Protein 7.6 g/dL (6.4-8.2); Troponin I < 50 ng/L (<or=60)
[2022-09-05] MEDS: Magnesium Chloride 64 MG TABCR PO (13:41)
== END 2022-09-05 13:54 | disposition home or self-care (01) ==
PROVIDERS: Emergency Provider Physician Assistant; PCP Internal Medicine
DX: R07.9 Chest pain, unspecified (principal); E83.42 Hypomagnesemia
CPT/HCPCS: 36415; 80053; 83690; 93005; 99283; 83735; 84484; 85025; 93010; 99284

== ENCOUNTER 2022-09-19 01:42 | Emergency (ER) | payer MEDICAID, SELFPAY ==
[2022-09-19] VITALS (13 sets, daily range): BP systolic 110–135; BP diastolic 64–103; PULSE 70–75; RESP 12–30; TEMP 37.2; O2SAT 98–99
--- NOTE | 2022-09-19 01:30 | RT.EKG_ITS ---
APPROVED REPORT Exam: Resting ECG Reason for Exam: chest pain Patient Location: E HR:79 bpm ECG Measurements Heart Rate 79 AXIS IA 178 P 48 QRSd 95 QRS 52 QT 387 T 35 QTc 443 Conclusion Sinus rhythm...normal P axis, V-rate 60- 99 Physician: no stemi
[2022-09-19 02:15] LABS: Abs Immature Grans 0.03 10^3/uL (0.0-0.06); Absolute Basophil Count 0.02 10^3/uL (0.0-0.2); Absolute Lymphocyte Count 1.58 10^3/uL (1.2-3.4); Absolute Monocyte Count 0.45 10^3/uL (0.1-0.8); Absolute Neutrophil Count 5.94 10^3/uL (1.2-6.7); Basophils % 0.2; HCT 34.1 % (40.0-50.0); HGB 11.2 g/dL (13.5-17.5); Immature Grans % 0.3; Lymphocytes % 18.1; MCH 30.2 pg (27.0-33.0); MCHC 32.8 % (32.0-36.0); MCV 92 fL (80-95); MPV 8.3 fL (8.0-11.0); Monocytes % 5.2; Neutrophils % 68.2; Platelet Count 189 10^3/uL (130-400); RBC 3.71 10^6/uL (4.36-5.78); WBC 8.72 10^3/uL (4.4-10.8)
[2022-09-19] MEDS: Lidocaine 5% Patch 1 PATCH TP (02:18)
--- NOTE | 2022-09-19 02:28 | ED.GENADUL_ITS ---
Discharge Plan Disposition Patient Disposition: HOME Condition: Good Discharge Details Chief Complaint: Chest Pain Clinical Impression: Chest discomfort Primary Care Provider: Unknown,Unknown ED Provider: Froilan Iraheta Home Meds and New Rx's Prescriptions: No Action atorvastatin 40 mg tablet 80 mg PO DAILY chlorhexidine gluconate [Peridex] 0.12 % mouthwash 15 ml mucous membrane BID Qty: 473 5RF Rx Instructions: rinse and spit twice a day Emgality Pen 120 mg/mL pen injector 120 mg subcut QMONTH Qty: 1 11RF sumatriptan succinate 100 mg tablet See Rx Instructions PO .COMPLEX Qty: 9 5RF Rx Instructions: take 1 tab at onset of headache; if no relief, may repeat 1 tab after at least 2 hrs; max = 2 tabs/24 hrs PO Claritin Liqui-Gel 10 MG capsule 1 cap PO DAILY Qty: 90 prochlorperazine maleate 10 mg tablet See Rx Instructions .ROUTE .COMPLEX Qty: 20 5RF Dose Instruction: TAKE 1 TABLET BY MOUTH EVERY 8 HOURS NEEDED FOR NAUSEA AND VOMITING, HEADACHE Rx Instructions: TAKE 1 TABLET BY MOUTH EVERY 8 HOURS NEEDED FOR NAUSEA AND VOMITING, HEADACHE atenolol 25 mg tablet 25 mg PO DAILY Qty: 30 0RF Rx Instructions: To take with 50mg for TDD 75mg daily atenolol 50 mg tablet 50 mg PO DAILY Qty: 30 0RF Rx Instructions: To take with 25mg dose for TDD 75mg daily esomeprazole magnesium [Nexium] 20 mg Capsule,Delayed Release(Dr/Ec) 20 mg PO DAILY multivitamin Tablet 1 tab PO DAILY vitamin A 10,000 unit Capsule 10,000 unit PO DAILY gabapentin 300 mg capsule 300 mg PO QID metformin 500 mg tablet 1 tab PO BID omeprazole 20 mg capsule,delayed release(DR/EC) 40 mg PO DAILY benztropine 0.5 MG tablet 0.5 mg PO BID aspirin,buffd-calcium carb-mag 325 MG tablet 325 mg PO DAILY fluoxetine 40 mg capsule 80 mg PO DAILY Label Comments: TK 2 CS PO QD Risperdal Consta 25 mg/2 mL suspension,extended rel recon 25 mg IM USEASDIRECTD Label Comments: INJECT ONE SYRINGE INTRAMUSCULARLY ONCE EVERY TWO WEEKS Rx Instructions: every 2 weeks lactulose 10 gram/15 mL solution 20 g PO DIRECTED PRN Label Comments: TAKE ONE TO TWO TABLESPOONS BY MOUTH NEEDED WHEN 3 DAYS PASS WITHOUT BOWEL MOVEMENT lorazepam 1 mg tablet 1 mg PO QID Label Comments: TK 1 T PO QAM THEN 2 TS HS Rx Instructions: 01/03/21 1 mg in am and 2 mg at hs Reports 1 mg in am, 1 mg in afternoon, 2 mg at hs albuterol sulfate 90 mcg/actuation aerosol powdr breath activated 2 inh IH Q6H PRN (Reason: shortness of breath or wheezing) Qty: 1 0RF Nu-Mag 71.5 mg tablet,delayed release (DR/EC) 71.5 mg PO DAILY Qty: 20 0RF Discharge Instructions Instructions: Chest Wall Pain (ED) Additional Instructions: At this time your work-up shows no evidence of significant heart abnormality. If you notice any worsening of your symptoms, or any new symptoms such as vomiting, diarrhea, fever, chills, shortness of breath, chest pain, numbness, weakness, or fainting , please return immediately to the emergency department for reevaluation. Please follow up with your primary care provider as soon as possible for reassessment and reevaluation. As always, it was a pleasure participating in your medical care today. Medical Decision Making 57-year-old male with a past medical history of a BMI of 39, migraines, type 2 diabetes, GERD, high cholesterol, hypothyroidism, schizoaffective disorder, depression, who presents today for evaluation of chest pain. Patient states that for the last 2 hours he has had 5 out of 10 chest pressure/grabbing pain in the left mid sternum. He denies any tearing or ripping sensation. He does state he suffers from anxiety and this may be a component. He denies any arm neck or shoulder pain. He denies any shortness of breath or difficulty breathing. He denies any recent spicy foods. No other complaints at this time. No other modifying factors. No exertional dyspnea. Physical exam is unremarkable, no pulse asymmetry, no concerning vital signs. EKG shows normal sinus rhythm with no ST changes whatsoever. Bedside echo demo nstrates no pericardial tamponade or effusion, no wall motion abnormalities of significance. No evidence of pneumothorax. Symptoms notably clinically inconsistent with STEMI, PE, or dissection. I suspect there is a component of GERD, muscle spasm/reflux that may be causing the pain. Troponin is normal, laboratory work-up is stable. Pain improved with GI cocktail and Lidoderm patch. Symptoms clinically inconsistent with an acute life-threatening etiology, or ACS after work-up. Patient stable for discharge. I have extensively reviewed the treatment plan and discharge instructions with the patient. I have addressed all patient concerns at this time. The patient was made aware of what symptoms to monitor for that would warrant a return to the emergency department. Discussed the plan with the patient, they demonstrate verbal understanding and agreement with our assessment and plan at this time. The documentation in this chart was dictated using [employer] dictation software. Please excuse any dictation errors. HPI General Date/Time Provider Initiated Documentation: 09/19/22 02:13 . HPI Narrative: 57-year-old male with a past medical history of a BMI of 39, migraines, type 2 diabetes, GERD, high cholesterol, hypothyroidism, schizoaffective disorder, depression, who presents today for evaluation of chest pain. Patient states that for the last 2 hours he has had 5 out of 10 chest pressure/grabbing pain in the left mid sternum. He denies any tearing or ripping sensation. He does state he suffers from anxiety and this may be a component. He denies any arm neck or shoulder pain. He denies any shortness of breath or difficulty breathing. He denies any recent spicy foods. No other complaints at this time. No other modifying factors. No exertional dyspnea. Related Data Home Medications Medication Instructions Recorded Confirmed loratadine 10 mg capsule (Claritin 1 cap PO DAILY #90 tabs 12/16/14 09/19/22 Liqui-Gel) aspirin,buffered (calcium 325 mg PO DAILY 11/18/16 09/19/22 carbonate-magnesium) 325 mg tablet benztropine 0.5 mg tablet 0.5 mg PO BID 11/18/16 09/19/22 fluoxetine 40 mg capsule 80 mg PO DAILY 10/03/20 09/19/22 lactulose 10 gram/15 mL oral 20 g PO DIRECTED PRN 10/03/20 09/19/22 solution risperidone microspheres 25 mg/2 25 mg IM USEASDIRECTD 10/03/20 09/19/22 mL intramuscular susp,ext release (Risperdal Consta) esomeprazole magnesium 20 mg 20 mg PO DAILY 10/09/20 07/20/22 capsule,delayed release (Nexium) albuterol sulfate 90 mcg/actuation 2 inh inhalation Q6H PRN shortness 12/15/20 09/19/22 breath activated powder inhaler of breath or wheezing #1 ea multivitamin 1 tab PO DAILY 01/26/21 09/19/22 vitamin A 10,000 unit capsule 10,000 unit PO DAILY 01/26/21 09/19/22 lorazepam 1 mg tablet 1 mg PO QID 07/05/21 09/19/22 chlorhexidine gluconate 0.12 % 15 ml mucous membrane BID dental 09/06/21 07/20/22 mouthwash (Peridex) problem #473 mL gabapentin 300 mg capsule 300 mg PO QID 03/05/22 09/19/22 metformin 500 mg tablet 1 tab PO BID 03/18/22 09/19/22 omeprazole 20 mg capsule,delayed 40 mg PO DAILY 03/18/22 09/19/22 release galcanezumab-gnlm 120 mg/mL 120 mg subcut QMONTH #1 mL 04/05/22 07/20/22 subcutaneous pen injector (Emgality Pen) prochlorperazine maleate 10 mg See Rx Instructions .Route 05/02/22 07/20/22 tablet .COMPLEX #20 tabs atorvastatin 40 mg tablet 80 mg PO DAILY 06/01/22 09/19/22 sumatriptan succinate 100 mg tablet See Rx Instructions PO .COMPLEX #9 06/28/22 09/19/22 tabs atenolol 25 mg tablet 25 mg PO DAILY #30 tabs 09/04/22 09/19/22 atenolol 50 mg tablet 50 mg PO DAILY #30 tabs 09/04/22 09/19/22 magnesium chloride 71.5 mg 71.5 mg PO DAILY #20 tabs 09/05/22 09/19/22 (magnesium chloride) tablet,delayed release (Nu-Mag) Previous Rx's Medication Instructions Recorded albuterol sulfate 90 mcg/actuation 2 inh inhalation Q6H PRN shortness 12/15/20 breath activated powder inhaler of breath or wheezing #1 ea chlorhexidine gluconate 0.12 % 15 ml mucous membrane BID dental 09/06/21 mouthwash (Peridex) problem #473 mL galcanezumab-gnlm 120 mg/mL 120 mg subcut QMONTH #1 mL 04/05/22 subcutaneous pen injector (Emgality Pen) prochlorperazine maleate 10 mg See Rx Instructions .Route 05/02/22 tablet .COMPLEX #20 tabs sumatriptan succinate 100 mg tablet See Rx Instructions PO .COMPLEX #9 06/28/22 tabs atenolol 25 mg tablet 25 mg PO DAILY #30 tabs 09/04/22 atenolol 50 mg tablet 50 mg PO DAILY #30 tabs 09/04/22 magnesium chloride 71.5 mg 71.5 mg PO DAILY #20 tabs 09/05/22 (magnesium chloride) tablet,delayed release (Nu-Mag) Allergies Allergy/AdvReac Type Severity Reaction Status Date / Time buspirone Allergy Verified 07/20/22 10:00 paliperidone Allergy Verified 07/20/22 10:00 paroxetine HCl [From Paxil] Allergy Verified 07/20/22 10:00 sertraline Allergy Verified 07/20/22 10:00 ziprasidone [From Geodon] Allergy Other (See Verified 07/20/22 10:00 Comment) aripiprazole [From Abilify] AdvReac Intermediate INVOLUNTARY Verified 07/20/22 10:00 MUSCLE MOVEMENTS divalproex sodium AdvReac Intermediate INVOLUNTARY Verified 07/20/22 10:00 [From Depakote] MUSCLE MOVEMENTS mirtazapine AdvReac Intermediate INVOLUNTARY Verified 07/20/22 10:00 MUSCLE MOVEMENTS risperidone AdvReac Intermediate INVOLUNTARY Verified 07/20/22 10:00 MUSCLE MOVEMENTS benztropine mesylate AdvReac elevated Verified 07/20/22 10:00 [From Cogentin] blood sugars enviornmental Allergy Mild Wheezing Uncoded 07/20/22 10:00 General Stated Complaint: Chest Pain CARLOS: 3 Review of Systems All systems reviewed & are unremarkable except as noted in HPI and below PFSH All Active Problems (Updated 09/19/22 @ 02:36 by Froilan Iraheta DO) Chest pain (Acute) Hypomagnesemia (Acute) Chest discomfort (Acute) Medication overuse headache (Acute) Drug-seeking behavior (Chronic ~09/20/21) Requests Ritalin from providers Broken teeth (Chronic) Anemia (Chronic) Hiatal hernia (Chronic) protonix not effective, nexium works better 02/12/18 Hypertension (Chronic) pt requests brand name Tenormin vs atenolol 04/02/18 Allergic rhinitis (Chronic) lortadine Tobacco use disorder (Chronic) started 2013 1.5 ppd, pipe 1-7/week, QUIT LATE OCT 2021 Poor dentition (Acute) Obesity (Chronic) BMI 52 Migraine (Chronic) Migraine headache without aura (Acute) Chronic headache (Acute) Chest pain (Acute) Left-sided chest wall pain (Acute) Depression (Acute 10/02/14) Diabetes mellitus type 2 in obese (Acute 09/09/14) GERD (gastroesophageal reflux disease) (Acute 09/07/14) Hypercholesterolemia (Chronic 09/07/14) pt insists on lipitor 80 mg due to family hx Hypothyroidism (acquired) (Acute 09/07/14) Schizoaffective disorder (Acute 09/07/14) Rebekah Mariscal [facility] 09/2014- [facility] inpatient Medical History Anxiety Dental caries Hyperlipidemia Mitral valve prolapse Peripheral neuropathy Trigeminal neuralgia Surgical History No significant past surgical history Family History Father Heart disease [place] Social History Smoking/Tobacco Use Status: Current every day Tobacco Type: cigarettes, pipe Years: 8 Other: States equivalent to 1.5 packs cigarettes and cigars Smoking risk assessment performed?: Yes Alcohol Intake: never Drug use: Never Substance use type: does not use Adopted: No Caregiver/Support person: No Foster care: No Household members: none Housing: apartment Number of Children: 2 number of grandchildren: 1 Communication Needs: Corrective Lenses Education Level: college Do you need help understanding health information?: Always current occupation: Unemployed/Leave of absence Sexually active: No Do you think of yourself as: Decline to provide Current gender identity: male What type of physical activity do you participate in: other Details: weight lifting Frequency: 3-4 times per week Magalie/Adventism: Orthodoxy Seatbelt use: always Drive intox or ride w/intox 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 3.ENT: Atraumatic external nose and ears. Moist MM. Neck: Symmetric, trachea midline, No thyromegaly. 4.CVS: +S1/S2, No murmurs or gallops. Peripheral pulses 2+ and equal in all extremities. Brisk capillary refill in all extremities. 5.RESP: Unlabored respiratory effort. Clear to auscultation bilaterally. No wheezes rales or rhonchi 6.GI: Soft, Nontender/Nondistended, No hepatosplenomegaly. No guarding or rebound. 7.MSK: Normocephalic/Atraumatic, Extremities w/o deformity or ttp No cyanosis or clubbing, Normal movement of all extremities 8.Skin: Warm, Dry. No rashes or lesions. 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 Sensation grossly intact, no focal neurologic deficits. 10.Psych: (AAO) x3. Appropriate mood and affect Course Vital Signs Vital signs: Vital Signs Temperature 37.2 C 09/19/22 01:48 Pulse 75 09/19/22 01:48 Respiratory Rate 30 H 09/19/22 01:48 Pulse Oximetry 99 09/19/22 01:48 Temperature 37.2 C 09/19/22 01:48 Temperature Source Oral 09/19/22 01:48 Pulse 75 09/19/22 01:48 Respiratory Rate 30 H 09/19/22 01:48 Blood Pressure Position Sitting 09/19/22 01:48 Pulse Oximetry 99 09/19/22 01:48 Oxygen Delivery Method Room Air 09/19/22 01:48 Oxygen Flow Rate 0 09/19/22 01:48 Pain Level 5 09/19/22 01:48 Lab/Test Results Lab/Test Results: Laboratory Tests Range/Units 09/19/22 02:08 WBC (4.4-10.8) 10^3/uL 8.72 RBC (4.36-5.78) 10^6/uL 3.71 L Hgb (13.5-17.5) g/dL 11.2 L Hct (40.0-50.0) % 34.1 L MCV (80-95) fL 92 MCH (27.0-33.0) pg 30.2 MCHC (32.0-36.0) % 32.8 RDW (11.8-14.1) % 13.0 Plt Count (130-400) 10^3/uL 189 MPV (8.0-11.0) fL 8.3 Immature Gran % 0.3 Neutrophils % 68.2 Lymphocytes % 18.1 Monocytes % 5.2 Eosinophils % 8.0 Basophils % 0.2 Nucleated RBC % (0.0-0.3) % 0.0 Absolute Neutrophils (1.2-6.7) 10^3/uL 5.94 Absolute Lymphocytes (1.2-3.4) 10^3/uL 1.58 Absolute Monocytes (0.1-0.8) 10^3/uL 0.45 Absolute Eosinophils (0.0-0.7) 10^3/uL 0.70 Absolute Basophils (0.0-0.2) 10^3/uL 0.02
[2022-09-19 02:32] LABS: ALT 53 U/L (16-63); AST 37 U/L (15-37); Alkaline Phosphatase 122 U/L (46-116); Anion Gap 4.6 mmol/L (3-11); BUN 7 mg/dL (7-18); Bilirubin, Total 0.6 mg/dL (0.2-1.0); CO2 31.4 mmol/L (21.0-32.0); CREATININE 0.9 mg/dL (0.70-1.30); Calcium 9.3 mg/dL (8.5-10.1); Chloride 97 mmol/L (98-107); Estimated GFR 99.62 (mL/min/1.73m2); Glucose 223 mg/dL (74-106); Potassium 4.4 mmol/L (3.5-5.1); Sodium 133 mmol/L (136-145); Total Protein 7.7 g/dL (6.4-8.2); Troponin I < 50 ng/L (<or=60)
== END 2022-09-19 02:50 | disposition home or self-care (01) ==
PROVIDERS: Emergency Provider Student in an Organized Health Care Education/Training Program
DX: R07.89 Other chest pain (principal); E11.9 Type 2 diabetes mellitus without complications; E78.00 Pure hypercholesterolemia, unspecified; F25.9 Schizoaffective disorder, unspecified; Z79.82 Long term (current) use of aspirin; Z79.84 Long term (current) use of oral hypoglycemic drugs
CPT/HCPCS: 80053; 93005; 99283; 84484; 85025; 93010; 99282

== ENCOUNTER 2022-09-22 12:59 | Emergency (ER) | payer MEDICAID, SELFPAY ==
[2022-09-22] VITALS (53 sets, daily range): BP systolic 117–147; BP diastolic 63–76; PULSE 78–86; RESP 12–19; TEMP 36.6; O2SAT 96–98
--- NOTE | 2022-09-22 12:45 | RT.EKG_ITS ---
APPROVED REPORT Exam: Resting ECG Reason for Exam: Chest pain Patient Location: E HR:83 bpm ECG Measurements Heart Rate 83 AXIS MT 183 P 52 QRSd 101 QRS 25 QT 402 T 32 QTc 471 Conclusion Sinus rhythm...normal P axis, V-rate 60- 99 sinus rhythml normal axis, normal intervals, non ischemic
--- NOTE | 2022-09-22 13:00 | DI.RAD_ITS ---
Exam(s) XR CHEST 2V PA LATERAL EXAM: XR CHEST 2V PA LATERAL CLINICAL HISTORY: Chest pain. TECHNIQUE: 2D digital imaging was performed. COMPARISON: CR XR CHEST 2V PA LATERAL from 07/20/2022 FINDINGS: 2 views: Heart size is normal. The mediastinum is not widened. Lungs are clear. No infiltrates nor pleural effusions. IMPRESSION: No acute pulmonary findings. DATA REPOSITORY: RADIATION DOSE DELIVERED:
[2022-09-22 13:21] LABS: Abs Immature Grans 0.05 10^3/uL (0.0-0.06); Absolute Basophil Count 0.03 10^3/uL (0.0-0.2); Absolute Eosinophil Count 0.79 10^3/uL (0.0-0.7); Absolute Lymphocyte Count 1.87 10^3/uL (1.2-3.4); Absolute Monocyte Count 0.42 10^3/uL (0.1-0.8); Absolute Neutrophil Count 5.37 10^3/uL (1.2-6.7); Basophils % 0.4; Eosinophils % 9.3; HCT 33.7 % (40.0-50.0); HGB 11.3 g/dL (13.5-17.5); Immature Grans % 0.6; Lymphocytes % 21.9; MCHC 33.5 % (32.0-36.0); MCV 93 fL (80-95); MPV 8.2 fL (8.0-11.0); Monocytes % 4.9; Neutrophils % 62.9; Platelet Count 196 10^3/uL (130-400); RBC 3.64 10^6/uL (4.36-5.78); RDW-SD 43.6 fL; WBC 8.53 10^3/uL (4.4-10.8)
[2022-09-22 13:39] LABS: ALT 44 U/L (16-63); AST 30 U/L (15-37); Albumin 3.1 g/dL (3.4-5.0); Alkaline Phosphatase 110 U/L (46-116); Anion Gap 8.3 mmol/L (3-11); BUN 9 mg/dL (7-18); Bilirubin, Total 0.3 mg/dL (0.2-1.0); CO2 28.7 mmol/L (21.0-32.0); CREATININE 1.1 mg/dL (0.70-1.30); Calcium 7.9 mg/dL (8.5-10.1); Chloride 99 mmol/L (98-107); Glucose 199 mg/dL (74-106); Magnesium 1.9 mg/dL (1.8-2.4); Potassium 4.1 mmol/L (3.5-5.1); Sodium 136 mmol/L (136-145); Total Protein 7.8 g/dL (6.4-8.2); Troponin I < 50 ng/L (<or=60)
--- NOTE | 2022-09-22 13:42 | ED.GENADUL_ITS ---
Discharge Plan Disposition Patient Disposition: Home Condition: Stable Discharge Details Clinical Impression: Left-sided chest wall pain, Noncompliance with medication regimen Primary Care Provider: Unknown,Unknown ED Provider: Polina Gross Home Meds and New Rx's Prescriptions: Continued atorvastatin 40 mg tablet 80 mg PO DAILY chlorhexidine gluconate [Peridex] 0.12 % mouthwash 15 ml mucous membrane BID Qty: 473 5RF Rx Instructions: rinse and spit twice a day Emgality Pen 120 mg/mL pen injector 120 mg subcut QMONTH Qty: 1 11RF sumatriptan succinate 100 mg tablet See Rx Instructions PO .COMPLEX Qty: 9 5RF Rx Instructions: take 1 tab at onset of headache; if no relief, may repeat 1 tab after at least 2 hrs; max = 2 tabs/24 hrs PO Claritin Liqui-Gel 10 MG capsule 1 cap PO DAILY Qty: 90 prochlorperazine maleate 10 mg tablet See Rx Instructions .ROUTE .COMPLEX Qty: 20 5RF Dose Instruction: TAKE 1 TABLET BY MOUTH EVERY 8 HOURS NEEDED FOR NAUSEA AND VOMITING, HEADACHE Rx Instructions: TAKE 1 TABLET BY MOUTH EVERY 8 HOURS NEEDED FOR NAUSEA AND VOMITING, HEADACHE multivitamin Tablet 1 tab PO DAILY vitamin A 10,000 unit Capsule 10,000 unit PO DAILY gabapentin 300 mg capsule 300 mg PO TID metformin 500 mg tablet 1 tab PO BID omeprazole 20 mg capsule,delayed release(DR/EC) 40 mg PO DAILY benztropine 0.5 MG tablet 0.5 mg PO BID aspirin,buffd-calcium carb-mag 325 MG tablet 325 mg PO DAILY fluoxetine 40 mg capsule 80 mg PO DAILY Label Comments: TK 2 CS PO QD Risperdal Consta 25 mg/2 mL suspension,extended rel recon 25 mg IM USEASDIRECTD Label Comments: INJECT ONE SYRINGE INTRAMUSCULARLY ONCE EVERY TWO WEEKS Rx Instructions: every 2 weeks lactulose 10 gram/15 mL solution 20 g PO DIRECTED PRN Label Comments: TAKE ONE TO TWO TABLESPOONS BY MOUTH NEEDED WHEN 3 DAYS PASS WITHOUT BOWEL MOVEMENT lorazepam 1 mg tablet 1 mg PO QID Label Comments: TK 1 T PO QAM THEN 2 TS HS Rx Instructions: 01/03/21 1 mg in am and 2 mg at hs Reports 1 mg in am, 1 mg in afternoon, 2 mg at hs albuterol sulfate 90 mcg/actuation aerosol powdr breath activated 2 inh IH Q6H PRN (Reason: shortness of breath or wheezing) Qty: 1 0RF Nu-Mag 71.5 mg tablet,delayed release (DR/EC) 71.5 mg PO DAILY Qty: 20 0RF No Action atenolol 50 mg tablet 75 mg PO DAILY Rx Instructions: To take with 25mg dose for TDD 75mg daily Discharge Instructions Instructions: Chest Wall Pain (ED) Additional Instructions: Your labs and imaging are reassuring here today. Please try to take your medications as prescribed and on your routine regiment. Please stay in touch with mental health if he has any increased anxiety. They may be reached anytime at [phone]. If you develop increased chest pain, shortness of breath, suicidal ideation or other new/worsening symptoms to seek care urgently once again. Otherwise, please follow-up with primary care in the next 1 to 2 weeks for reevaluation. Referrals: Odalys Michael [ NON-[facility] STAFF PHYSICIAN] - Discharge Data Discharge Date/Time-TO BE ENTERED AT DEPARTURE: 09/22/22 17:38 Medical Decision Making <Karlos Vasquez NP - Last Filed: 09/27/22 11:41> Patient presenting to the emergency department for chief complaint of chest pain. Patient states that this started about 45 minutes prior to arrival and is left-sided chest pain that radiates to his left arm. Patient denies any other injury or trauma. Has had multiple visits to the emergency department for chest pain but also has complicating factor of significant history of severe anxiety and schizoaffective disorder. Physical exam is unremarkable for any reproducible chest pain or worrisome findings. Patient does have also medical history of type 2 diabetes, depression, high cholesterol and mitral valve prolapse. We will plan on checking labs and chest x-ray along with EKG. Patient did inform nursing staff that he had not taken any of his meds since yesterday evening so has now missed 3 doses of his meds. This was confirmed with patient's home blister packs so we will give patient his standard daily medications. He is interested in the possibility of going to the cancer bed if available due to increased anxiety. If that is what is available I feel this m ay be a reasonable option but at the same time I feel that his anxiety is secondary to him missing his medications. Please see physician interpretation for full interpretation of EKG but at this time patient is in normal sinus rhythm with no acute worrisome findings to suggest STEMI. We will continue to monitor. Initial review of labs show a persistent but stable anemia, elevated glucose at 199, calcium of 7.9 but unremarkable CMP, negative initial troponin. Will give patient p.o. calcium supplement but I do not feel this is the cause of patient's pain. Sign Out Yes <JORDANA Hassan - Last Filed: 09/30/22 16:13> Patient presenting to the emergency department for chief complaint of chest pain. Patient states that this started about 45 minutes prior to arrival and is left-sided chest pain that radiates to his left arm. Patient denies any other injury or trauma. Has had multiple visits to the emergency department for chest pain but also has complicating factor of significant history of severe anxiety and schizoaffective disorder. Physical exam is unremarkable for any reproducible chest pain or worrisome findings. Patient does have also medical history of type 2 diabetes, depression, high cholesterol and mitral valve prolapse. We will plan on checking labs and chest x-ray along with EKG. Patient did inform nursing staff that he had not taken any of his meds since yesterday evening so has now missed 3 doses of his meds. This was confirmed with patient's home blister packs so we will give patient his standard daily medications. He is interested in the possibility of going to the cancer bed if available due to increased anxiety. If that is what is available I feel this may be a reasonable option but at the same time I feel that his anxiety is secondary to him missing his medications. Please see physician interpretation for full interpretation of EKG but at this time patient is in normal sinus rhythm with no acute worrisome findings to suggest STEMI. We will continue to monitor. Initial review of labs show a persistent but stable anemia, elevated glucose at 199, calcium of 7.9 but unremarkable CMP, negative initial troponin. Will give patient p.o. calcium supplement but I do not feel this is the cause of patient's pain. Care transition myself from Karlos Vasquez NP. Please see his initial note regarding history, presentation and exam. In brief, patient is a pleasant 57-year-old gentleman presenting today with chief complaint of chest discomfort. This is not exertionally based. Patient does admitting to not having taken his daily medications or his nighttime dosing of meds last night, majority of the associated with anxiety. Patient is not actively having chest pain. At the time I assumed care, repeat troponin pending. Patient was evaluated by mental health as patient endorsing increased anxiety and was questioning if there was a possibility for him to stay at the care bed this evening. He does not want formal inpatient psychiatric admission, is not endorsing SI. No care bed availability. In the event that repeat troponin is WNL, patient feels that he can go home safely and stay in touch with . He was given second dose of medication which would be his noon dosing. Repeat troponin remains within normal limits. Patient is feeling much more comfortable after his anxiolytics and normal medication. He has not had any recurrence of his chest discomfort. Was evaluated by mental health. I did encourage that he take his medications as prescribed. Advised that his work-up here is reassuring but did encourage close follow-up with primary care. Patient feels safe going home today and will be staying in touch with his mental health team. Emergent contact information was given to the patient. Return precautions were discussed. All of his questions and concerns were addressed and he is in agreement with plan. HPI <Karlos Vasquez NP - Last Filed: 09/27/22 11:41> General Mode of arrival: EMS . Date/Time Provider Initiated Documentation: 09/22/22 13:02 . Limitations to Documentation: no limitations . Information obtained by: patient, RN notes reviewed and old records reviewed . History of Present Illness 57 year old M presents to the emergency department with the chief complaint of chest pain , described as moderate and similar to prior episodes, with intensity rated at 8. Quality is described as aching and crushing, and is localized to the chest. Patient extremity. Patient started experiencing this minute(s) (45) and it has been constant. No relieving factors improve symptom(s), No exacerbating factors reported . Patient notes no other symptoms.. Patient did receive the following treatments prior to arrival, none Related Data Home Medications Medication Instructions Recorded Confirmed loratadine 10 mg capsule (Claritin 1 cap PO DAILY #90 tabs 12/16/14 09/26/22 Liqui-Gel) aspirin,buffered (calcium 325 mg PO DAILY 11/18/16 09/26/22 carbonate-magnesium) 325 mg tablet benztropine 0.5 mg tablet 0.5 mg PO BID 11/18/16 09/26/22 fluoxetine 40 mg capsule 80 mg PO DAILY 10/03/20 09/26/22 lactulose 10 gram/15 mL oral 20 g PO DIRECTED PRN 10/03/20 09/26/22 solution risperidone microspheres 25 mg/2 25 mg IM USEASDIRECTD 10/03/20 09/26/22 mL intramuscular susp,ext release (Risperdal Consta) albuterol sulfate 90 mcg/actuation 2 inh inhalation Q6H PRN shortness 12/15/20 09/26/22 breath activated powder inhaler of breath or wheezing #1 ea multivitamin 1 tab PO DAILY 01/26/21 09/26/22 vitamin A 10,000 unit capsule 10,000 unit PO DAILY 01/26/21 09/26/22 lorazepam 1 mg tablet 1 mg PO QID 07/05/21 09/26/22 chlorhexidine gluconate 0.12 % 15 ml mucous membrane BID dental 09/06/21 09/26/22 mouthwash (Peridex) problem #473 mL gabapentin 300 mg capsule 300 mg PO TID 03/05/22 09/26/22 metformin 500 mg tablet 1 tab PO BID 03/18/22 09/26/22 omeprazole 20 mg capsule,delayed 40 mg PO DAILY 03/18/22 09/26/22 release galcanezumab-gnlm 120 mg/mL 120 mg subcut QMONTH #1 mL 04/05/22 09/26/22 subcutaneous pen injector (Emgality Pen) prochlorperazine maleate 10 mg See Rx Instructions .Route 05/02/22 09/26/22 tablet .COMPLEX #20 tabs atorvastatin 40 mg tablet 80 mg PO DAILY 06/01/22 09/26/22 sumatriptan succinate 100 mg tablet See Rx Instructions PO .COMPLEX #9 06/28/22 09/26/22 tabs magnesium chloride 71.5 mg 71.5 mg PO DAILY #20 tabs 09/05/22 09/26/22 (magnesium chloride) tablet,delayed release (Nu-Mag) atenolol 50 mg tablet 75 mg PO DAILY 09/26/22 09/26/22 Previous Rx's Medication Instructions Recorded albuterol sulfate 90 mcg/actuation 2 inh inhalation Q6H PRN shortness 12/15/20 breath activated powder inhaler of breath or wheezing #1 ea chlorhexidine gluconate 0.12 % 15 ml mucous membrane BID dental 09/06/21 mouthwash (Peridex) problem #473 mL galcanezumab-gnlm 120 mg/mL 120 mg subcut QMONTH #1 mL 04/05/22 subcutaneous pen injector (Emgality Pen) prochlorperazine maleate 10 mg See Rx Instructions .Route 05/02/22 tablet .COMPLEX #20 tabs sumatriptan succinate 100 mg tablet See Rx Instructions PO .COMPLEX #9 06/28/22 tabs magnesium chloride 71.5 mg 71.5 mg PO DAILY #20 tabs 09/05/22 (magnesium chloride) tablet,delayed release (Nu-Mag) Allergies Allergy/AdvReac Type Severity Reaction Status Date / Time buspirone Allergy Verified 09/26/22 02:49 paliperidone Allergy Verified 09/26/22 02:49 paroxetine HCl [From Paxil] Allergy Verified 09/26/22 02:49 sertraline Allergy Verified 09/26/22 02:49 ziprasidone [From Geodon] Allergy Other (See Verified 09/26/22 02:49 Comment) aripiprazole [From Abilify] AdvReac Intermediate INVOLUNTARY Verified 09/26/22 02:49 MUSCLE MOVEMENTS divalproex sodium AdvReac Intermediate INVOLUNTARY Verified 09/26/22 02:49 [From Depakote] MUSCLE MOVEMENTS mirtazapine AdvReac Intermediate INVOLUNTARY Verified 09/26/22 02:49 MUSCLE MOVEMENTS risperidone AdvReac Intermediate INVOLUNTARY Verified 09/26/22 02:49 MUSCLE MOVEMENTS benztropine mesylate AdvReac elevated Verified 09/26/22 02:49 [From Cogentin] blood sugars enviornmental Allergy Mild Wheezing Uncoded 09/26/22 02:49 General Stated Complaint: Chest Pain CARLOS: 2 Review of Systems <Karlos Vasquez NP - Last Filed: 09/27/22 11:41> Constitutional Constitutional: Denies chills, Denies fever(s) and Denies malaise Cardiovascular Cardiovascular: Reports as per HPI, Reports chest pain, Denies chest pain with activity, Denies syncope, Denies irregular heart rhythm, Denies palpitations and Denies dyspnea Respiratory Respiratory: Denies cough, Denies hemoptysis and Denies dyspnea Gastrointestinal Gastrointestinal: Denies abdominal pain, Denies nausea and Denies vomiting Neurologic Neurologic: Denies syncope Psychiatric Psychiatric: Reports anxiety Endocrine Endocrine: Denies palpitations PFSH <Karlos Vasquez NP - Last Filed: 09/27/22 11:41> All Active Problems (Updated 09/26/22 @ 06:43 by Lb Cordero MD) Chest pain (Acute) Hypomagnesemia (Acute) Chest discomfort (Acute) Noncompliance with medication regimen (Acute) Chest pain (Acute) Medication overuse headache (Acute) Drug-seeking behavior (Chronic ~09/20/21) Requests Ritalin from providers Broken teeth (Chronic) Anemia (Chronic) Hiatal hernia (Chronic) protonix not effective, nexium works better 02/12/18 Hypertension (Chronic) pt requests brand name Tenormin vs atenolol 04/02/18 Allergic rhinitis (Chronic) lortadine Tobacco use disorder (Chronic) started 2013 1.5 ppd, pipe 1-7/week, QUIT LATE OCT 2021 Poor dentition (Acute) Obesity (Chronic) BMI 52 Migraine (Chronic) Migraine headache without aura (Acute) Chronic headache (Acute) Chest pain (Acute) Left-sided chest wall pain (Acute) Depression (Acute 10/02/14) Diabetes mellitus type 2 in obese (Acute 09/09/14) GERD (gastroesophageal reflux disease) (Acute 09/07/14) Hypercholesterolemia (Chronic 09/07/14) pt insists on lipitor 80 mg due to family hx Hypothyroidism (acquired) (Acute 09/07/14) Schizoaffective disorder (Acute 09/07/14) FREDDIE Thakkar 09/2014- [facility] inpatient Medical History Anxiety Dental caries Hyperlipidemia Mitral valve prolapse Peripheral neuropathy Trigeminal neuralgia Surgical History No significant past surgical history Family History Father Heart disease [place] Social History Smoking/Tobacco Use Status: Current every day Tobacco Type: cigarettes, pipe Years: 8 Other: States equivalent to 1.5 packs cigarettes and cigars Smoking risk assessment performed?: Yes Alcohol Intake: never Drug use: Never Substance use type: does not use Adopted: No Caregiver/Support person: No Foster care: No Household members: none Housing: apartment Number of Children: 2 number of grandchildren: 1 Communication Needs: Corrective Lenses Education Level: college Do you need help understanding health information?: Always current occupation: Unemployed/Leave of absence Sexually active: No Do you think of yourself as: Decline to provide Current gender identity: male What type of physical activity do you participate in: other Details: weight lifting Frequency: 3-4 times per week Magalie/Zoroastrianism: Christianity Seatbelt use: always Drive intox or ride w/intox wheelchair van driver: No Working smoke detector in home: Yes Fire extinguisher in home: Yes Carbon monox detector in home: Yes Do you feel safe at home: Yes (anxiety) Do you feel safe in your relationship?: Yes Exam <CAROL Babin Last Filed: 09/27/22 11:41> Const General: cooperative, healthy appearing, comfortable, no acute distress, not diaphoretic and not ill appearing Nutritional Appearance: average body habitus Orientation: alert, awake and oriented x3 Limitations: mental status not altered Neck Neck: normal visual inspection, full ROM, trachea midline, supple and no anterior neck swelling Chest Chest: normal inspection of the chest Resp Effort & Inspection: normal respiratory effort and able to speak in complete sentences Auscultation: clear to auscultation bilaterally Cardio Jugular venous pressure: no JVD Palpation: normal PMI Rate: regular rate Rhythm: regular rhythm Heart Sounds: S1 normal, S2 normal, no click, no gallops, no murmurs and no rubs Bruits: no abdominal aortic bruits and no carotid bruits Pulses: radial pulses present bilaterally 2+ GI Inspection: normal to inspection Palpation: soft, no aortic enlargement, no pulsatile masses and nontender Auscultation: normal bowel sounds Skin General skin exam: no rashes or lesions noted Neuro General: patient alert, patient awake, patient oriented x3, tone normal and moves all extremities Extrem General: no pedal edema Course <CAROL Babin Last Filed: 09/27/22 11:41> Vital Signs Vital signs: Vital Signs Temperature 36.6 C 09/22/22 13:03 Pulse 86 09/22/22 13:03 Respiratory Rate 14 09/22/22 13:03 Blood Pressure 147/71 H 09/22/22 13:03 Pulse Oximetry 97 09/22/22 13:03 Temperature 36.6 C 09/22/22 13:03 Temperature Source Temporal Artery Scan 09/22/22 13:03 Pulse 86 09/22/22 13:03 Respiratory Rate 19 09/22/22 13:05 Respiratory Effort Labored 09/22/22 13:05 Respiratory Depth Normal 09/22/22 13:05 Respiratory Pattern Normal 09/22/22 13:05 Blood Pressure 147/71 H 09/22/22 13:03 Blood Pressure Position Sitting 09/22/22 13:03 Pulse Oximetry 97 09/22/22 13:03 Oxygen Delivery Method Room Air 09/22/22 13:03 Oxygen Flow Rate 0 09/22/22 13:03 Pain Level 8 09/22/22 13:05 Lab/Test Results Lab/Test Results: Laboratory Tests Range/Units 09/22/22 13:15 WBC (4.4-10.8) 10^3/uL 8.53 RBC (4.36-5.78) 10^6/uL 3.64 L Hgb (13.5-17.5) g/dL 11.3 L Hct (40.0-50.0) % 33.7 L MCV (80-95) fL 93 MCH (27.0-33.0) pg 31.0 MCHC (32.0-36.0) % 33.5 RDW (11.8-14.1) % 13.0 Plt Count (130-400) 10^3/uL 196 MPV (8.0-11.0) fL 8.2 Immature Gran % 0.6 Neutrophils % 62.9 Lymphocytes % 21.9 Monocytes % 4.9 Eosinophils % 9.3 Basophils % 0.4 Nucleated RBC % (0.0-0.3) % 0.0 Absolute Neutrophils (1.2-6.7) 10^3/uL 5.37 Absolute Lymphocytes (1.2-3.4) 10^3/uL 1.87 Absolute Monocytes (0.1-0.8) 10^3/uL 0.42 Absolute Eosinophils (0.0-0.7) 10^3/uL 0.79 H Absolute Basophils (0.0-0.2) 10^3/uL 0.03 Sign Out <Karlos Vasquez NP - Last Filed: 09/27/22 11:41> Sign Out Data: Sign Out Comment: patient pending second Trope and reassessment along with disposition for chest pain and and Last updated by Karlos Vasquez NP at 09/22/22 15:43
--- NOTE | 2022-09-22 14:31 | NUR.NOTE ---
Nursing Note: Pt sitting up in bed, respirations even and unlabored at 17, no distress noted. Pt states his chest pain has improved to a 5/10. Pt denies any other needs at this time.
[2022-09-22 16:59] LABS: Troponin I < 50 ng/L (<or=60)
== END 2022-09-22 17:38 | disposition home or self-care (01) ==
PROVIDERS: Nurse Practitioner Family; Emergency Provider Physician Assistant
DX: R07.89 Other chest pain (principal); F25.9 Schizoaffective disorder, unspecified; E11.9 Type 2 diabetes mellitus without complications; E78.00 Pure hypercholesterolemia, unspecified; D64.9 Anemia, unspecified; Z91.14 Patient's other noncompliance with medication regimen; Z79.82 Long term (current) use of aspirin; Z79.84 Long term (current) use of oral hypoglycemic drugs
CPT/HCPCS: 36415; 80053; 93005; 99284; 71046; 83735; 84484; 85025; 93010; 99285

== ENCOUNTER 2022-09-26 02:58 | Emergency (ER) | payer MEDICAID, SELFPAY ==
[2022-09-26] VITALS (11 sets, daily range): BP systolic 135–175; BP diastolic 68–95; PULSE 74–89; RESP 12–21; TEMP 36.7; O2SAT 95
--- NOTE | 2022-09-26 02:30 | RT.EKG_ITS ---
APPROVED REPORT Exam: Resting ECG Reason for Exam: chest pain Patient Location: E HR:82 bpm ECG Measurements Heart Rate 82 AXIS ME 168 P 49 QRSd 102 QRS 40 QT 387 T 58 QTc 452 Conclusion Sinus rhythm...normal P axis, V-rate 60- 99 sinus rhythm, normal axis, normal intervals, nonischemic
--- NOTE | 2022-09-26 02:45 | DI.RAD_ITS ---
Exam(s) XR CHEST 1V IN DI DEPT EXAM: XR CHEST 1V IN DI DEPT CLINICAL HISTORY: chest pain TECHNIQUE: 2D digital imaging was performed of the chest. One image was obtained. An AP view was ob tained. COMPARISON: CR XR CHEST 2V PA LATERAL from 09/22/2022 FINDINGS: MEDIASTINUM: Normal. HEART: Normal. PULMONARY VASCULATURE: Normal. LUNGS: Clear. PLEURAL SPACE: No pleural effusion or pneumothorax. BONE:Within normal limits for the patient's age. OTHER FINDINGS:Normal. IMPRESSION: No acute pulmonary findings. DATA REPOSITORY: RADIATION DOSE DELIVERED:
--- NOTE | 2022-09-26 03:15 | W.ED.GENAD ---
Discharge Plan Disposition Patient Disposition: Home Condition: Improving Discharge Details Chief Complaint: Chest Pain Clinical Impression: Chest pain Primary Care Provider: Unknown,Unknown ED Provider: Lb Cordero Home Meds and New Rx's Prescriptions: No Action atorvastatin 40 mg tablet 80 mg PO DAILY chlorhexidine gluconate [Peridex] 0.12 % mouthwash 15 ml mucous membrane BID Qty: 473 5RF Rx Instructions: rinse and spit twice a day Emgality Pen 120 mg/mL pen injector 120 mg subcut QMONTH Qty: 1 11RF sumatriptan succinate 100 mg tablet See Rx Instructions PO .COMPLEX Qty: 9 5RF Rx Instructions: take 1 tab at onset of headache; if no relief, may repeat 1 tab after at least 2 hrs; max = 2 tabs/24 hrs PO Claritin Liqui-Gel 10 MG capsule 1 cap PO DAILY Qty: 90 prochlorperazine maleate 10 mg tablet See Rx Instructions .ROUTE .COMPLEX Qty: 20 5RF Dose Instruction: TAKE 1 TABLET BY MOUTH EVERY 8 HOURS NEEDED FOR NAUSEA AND VOMITING, HEADACHE Rx Instructions: TAKE 1 TABLET BY MOUTH EVERY 8 HOURS NEEDED FOR NAUSEA AND VOMITING, HEADACHE multivitamin Tablet 1 tab PO DAILY vitamin A 10,000 unit Capsule 10,000 unit PO DAILY gabapentin 300 mg capsule 300 mg PO TID metformin 500 mg tablet 1 tab PO BID omeprazole 20 mg capsule,delayed release(DR/EC) 40 mg PO DAILY benztropine 0.5 MG tablet 0.5 mg PO BID aspirin,buffd-calcium carb-mag 325 MG tablet 325 mg PO DAILY fluoxetine 40 mg capsule 80 mg PO DAILY Label Comments: TK 2 CS PO QD Risperdal Consta 25 mg/2 mL suspension,extended rel recon 25 mg IM USEASDIRECTD Label Comments: INJECT ONE SYRINGE INTRAMUSCULARLY ONCE EVERY TWO WEEKS Rx Instructions: every 2 weeks lactulose 10 gram/15 mL solution 20 g PO DIRECTED PRN Label Comments: TAKE ONE TO TWO TABLESPOONS BY MOUTH NEEDED WHEN 3 DAYS PASS WITHOUT BOWEL MOVEMENT lorazepam 1 mg tablet 1 mg PO QID Label Comments: TK 1 T PO QAM THEN 2 TS HS Rx Instructions: 01/03/21 1 mg in am and 2 mg at hs Reports 1 mg in am, 1 mg in afternoon, 2 mg at hs albuterol sulfate 90 mcg/actuation aerosol powdr breath activated 2 inh IH Q6H PRN (Reason: shortness of breath or wheezing) Qty: 1 0RF Nu-Mag 71.5 mg tablet,delayed release (DR/EC) 71.5 mg PO DAILY Qty: 20 0RF atenolol 50 mg tablet 75 mg PO DAILY Rx Instructions: To take with 25mg dose for TDD 75mg daily Discharge Instructions Instructions: Chest Pain (ED) Additional Instructions: Please follow-up with your primary care physician. Please return to the emergency department for any worsening symptoms. Medical Decision Making 57-year-old male history of recurrent chest pains, anxiety, diabetes hyperlipidemia presents with chest pain anterior nature rating to left arm that began earlier this evening. Patient is hemodynamically stable no respiratory distress EKG nonischemic. Consider anxiety versus ACS versus less likely PE pneumothorax or aortic pathology. Will obtain basic labs to troponin EKG chest x-ray patient received aspirin in route. We will also provide anxiolysis. Close reassessment disposition pending results Any 6: 48 patient resting comfortably asymptomatic labs unremarkable. Patient to follow-up as an outpatient. Sign Out No HPI General Date/Time Provider Initiated Documentation: 09/26/22 03:09. HPI Narrative: 57-year-old male history of recurrent chest pain, anxiety presents with left anterior chest discomfort that began earlier this evening rating to his left arm; given aspirin in route by EMS Related Data Home Medications Medication Instructions Recorded Confirmed loratadine 10 mg capsule (Claritin 1 cap PO DAILY #90 tabs 12/16/14 09/26/22 Liqui-Gel) aspirin,buffered (calcium 325 mg PO DAILY 11/18/16 09/26/22 carbonate-magnesium) 325 mg tablet benztropine 0.5 mg tablet 0.5 mg PO BID 11/18/16 09/26/22 fluoxetine 40 mg capsule 80 mg PO DAILY 10/03/20 09/26/22 lactulose 10 gram/15 mL oral 20 g PO DIRECTED PRN 10/03/20 09/26/22 solution risperidone microspheres 25 mg/2 25 mg IM USEASDIRECTD 10/03/20 09/26/22 mL intramuscular susp,ext release (Risperdal Consta) albuterol sulfate 90 mcg/actuation 2 inh inhalation Q6H PRN shortness 12/15/20 09/26/22 breath activated powder inhaler of breath or wheezing #1 ea multivitamin 1 tab PO DAILY 01/26/21 09/26/22 vitamin A 10,000 unit capsule 10,000 unit PO DAILY 01/26/21 09/26/22 lorazepam 1 mg tablet 1 mg PO QID 07/05/21 09/26/22 chlorhexidine gluconate 0.12 % 15 ml mucous membrane BID dental 09/06/21 09/26/22 mouthwash (Peridex) problem #473 mL gabapentin 300 mg capsule 300 mg PO TID 03/05/22 09/26/22 metformin 500 mg tablet 1 tab PO BID 03/18/22 09/26/22 omeprazole 20 mg capsule,delayed 40 mg PO DAILY 03/18/22 09/26/22 release galcanezumab-gnlm 120 mg/mL 120 mg subcut QMONTH #1 mL 04/05/22 09/26/22 subcutaneous pen injector (Emgality Pen) prochlorperazine maleate 10 mg See Rx Instructions .Route 05/02/22 09/26/22 tablet .COMPLEX #20 tabs atorvastatin 40 mg tablet 80 mg PO DAILY 06/01/22 09/26/22 sumatriptan succinate 100 mg tablet See Rx Instructions PO .COMPLEX #9 06/28/22 09/26/22 tabs magnesium chloride 71.5 mg 71.5 mg PO DAILY #20 tabs 09/05/22 09/26/22 (magnesium chloride) tablet,delayed release (Nu-Mag) atenolol 50 mg tablet 75 mg PO DAILY 09/26/22 09/26/22 Previous Rx's Medication Instructions Recorded albuterol sulfate 90 mcg/actuation 2 inh inhalation Q6H PRN shortness 12/15/20 breath activated powder inhaler of breath or wheezing #1 ea chlorhexidine gluconate 0.12 % 15 ml mucous membrane BID dental 09/06/21 mouthwash (Peridex) problem #473 mL galcanezumab-gnlm 120 mg/mL 120 mg subcut QMONTH #1 mL 04/05/22 subcutaneous pen injector (Emgality Pen) prochlorperazine maleate 10 mg See Rx Instructions .Route 05/02/22 tablet .COMPLEX #20 tabs sumatriptan succinate 100 mg tablet See Rx Instructions PO .COMPLEX #9 06/28/22 tabs magnesium chloride 71.5 mg 71.5 mg PO DAILY #20 tabs 09/05/22 (magnesium chloride) tablet,delayed release (Nu-Mag) Allergies Allergy/AdvReac Type Severity Reaction Status Date / Time buspirone Allergy Verified 09/26/22 02:49 paliperidone Allergy Verified 09/26/22 02:49 paroxetine HCl [From Paxil] Allergy Verified 09/26/22 02:49 sertraline Allergy Verified 09/26/22 02:49 ziprasidone [From Geodon] Allergy Other (See Verified 09/26/22 02:49 Comment) aripiprazole [From Abilify] AdvReac Intermediate INVOLUNTARY Verified 09/26/22 02:49 MUSCLE MOVEMENTS divalproex sodium AdvReac Intermediate INVOLUNTARY Verified 09/26/22 02:49 [From Depakote] MUSCLE MOVEMENTS mirtazapine AdvReac Intermediate INVOLUNTARY Verified 09/26/22 02:49 MUSCLE MOVEMENTS risperidone AdvReac Intermediate INVOLUNTARY Verified 09/26/22 02:49 MUSCLE MOVEMENTS benztropine mesylate AdvReac elevated Verified 09/26/22 02:49 [From Cogentin] blood sugars enviornmental Allergy Mild Wheezing Uncoded 09/26/22 02:49 General Stated Complaint: Chest Pain CARLOS: 2 Review of Systems Narrative: Review of Systems Constitutional: negative Eyes: negative ENT: negative Cardiovascular: Chest pain Respiratory: negative Gastrointestinal: negative : negative Musculoskeletal: negative Skin: negative Neurologic: negative Psych: negative PFSH All Active Problems (Updated 09/26/22 @ 06:43 by Lb Cordero MD) Chest pain (Acute) Hypomagnesemia (Acute) Chest discomfort (Acute) Noncompliance with medication regimen (Acute) Chest pain (Acute) Medication overuse headache (Acute) Drug-seeking behavior (Chronic ~09/20/21) Requests Ritalin from providers Broken teeth (Chronic) Anemia (Chronic) Hiatal hernia (Chronic) protonix not effective, nexium works better 02/12/18 Hypertension (Chronic) pt requests brand name Tenormin vs atenolol 04/02/18 Allergic rhinitis (Chronic) lortadine Tobacco use disorder (Chronic) started 2013 1.5 ppd, pipe 1-7/week, QUIT LATE OCT 2021 Poor dentition (Acute) Obesity (Chronic) BMI 52 Migraine (Chronic) Migraine headache without aura (Acute) Chronic headache (Acute) Chest pain (Acute) Left-sided chest wall pain (Acute) Depression (Acute 10/02/14) Diabetes mellitus type 2 in obese (Acute 09/09/14) GERD (gastroesophageal reflux disease) (Acute 09/07/14) Hypercholesterolemia (Chronic 09/07/14) pt insists on lipitor 80 mg due to family hx Hypothyroidism (acquired) (Acute 09/07/14) Schizoaffective disorder (Acute 09/07/14) Rebekah Mariscal [facility] 09/2014- [facility] inpatient Medical History Anxiety Dental caries Hyperlipidemia Mitral valve prolapse Peripheral neuropathy Trigeminal neuralgia Surgical History No significant past surgical history Family History Father Heart disease [place] Social History Smoking/Tobacco Use Status: Current every day Tobacco Type: cigarettes, pipe Years: 8 Other: States equivalent to 1.5 packs cigarettes and cigars Smoking risk assessment performed?: Yes Alcohol Intake: never Drug use: Never Substance use type: does not use Adopted: No Caregiver/Support person: No Foster care: No Household members: none Housing: apartment Number of Children: 2 number of grandchildren: 1 Communication Needs: Corrective Lenses Education Level: college Do you need help understanding health information?: Always current occupation: Unemployed/Leave of absence Sexually active: No Do you think of yourself as: Decline to provide Current gender identity: male What type of physical activity do you participate in: other Details: weight lifting Frequency: 3-4 times per week Magalie/Alevism: Adventism Seatbelt use: always 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 Working smoke detector in home: Yes Fire extinguisher in home: Yes Carbon monox detector in home: Yes Do you feel safe at home: Yes (anxiety) Do you feel safe in your relationship?: Yes Exam Narrative Exam Narrative: Physical Examination General: alert, awake, cooperative, resting comfortably, no acute distress HEENT: normocephalic, atraumatic; PERRL, EOM intact, conjunctiva normal; no nasal discharge; moist mucous membranes, oral and pharyngeal mucosa normal, tolerating secretions Neck: supple, trachea midline; full ROM Chest: normal to inspection Respiratory: normal respiratory effort, speaking in full sentences, clear to auscultation, no wheezing, rales or rhonchi Cardiac: regular rate, regular rhythm, S1S2 intact, no murmurs rubs or gallops GI: abdomen soft, non-tender, non-distended; no palpable mass or hepatosplenomegaly Skin: no lesions, rashes or trauma appreciated Neuro: AAOx3, normal speech, moving all extremities Psych: Appropriate mood and affect Course Vital Signs Vital signs: Vital Signs Temperature 36.7 C 09/26/22 02:42 Pulse 82 09/26/22 02:42 Respiratory Rate 21 09/26/22 02:42 Blood Pressure 175/68 H 09/26/22 02:42 Pulse Oximetry 95 09/26/22 02:42 Temperature 36.7 C 09/26/22 02:42 Temperature Source Temporal Artery Scan 09/26/22 02:42 Pulse 82 09/26/22 02:42 Respiratory Rate 20 09/26/22 03:02 Respiratory Effort 09/26/22 03:02 Respiratory Depth Normal 09/26/22 03:02 Respiratory Pattern Normal 09/26/22 03:02 Blood Pressure 175/68 H 09/26/22 02:42 Blood Pressure Position Supine 09/26/22 02:42 Pulse Oximetry 95 09/26/22 02:42 Oxygen Delivery Method Room Air 09/26/22 02:42 Oxygen Flow Rate 0 09/26/22 02:42 Pain Level 7 09/26/22 02:42
[2022-09-26 03:16] LABS: Abs Immature Grans 0.02 10^3/uL (0.0-0.06); Absolute Basophil Count 0.02 10^3/uL (0.0-0.2); Absolute Eosinophil Count 0.45 10^3/uL (0.0-0.7); Absolute Lymphocyte Count 1.53 10^3/uL (1.2-3.4); Absolute Neutrophil Count 5.67 10^3/uL (1.2-6.7); Basophils % 0.2; Eosinophils % 5.5; HCT 32.5 % (40.0-50.0); HGB 11.1 g/dL (13.5-17.5); Immature Grans % 0.2; Lymphocytes % 18.7; MCH 30.9 pg (27.0-33.0); MCHC 34.2 % (32.0-36.0); MCV 91 fL (80-95); MPV 8.5 fL (8.0-11.0); Monocytes % 6.1; Neutrophils % 69.3; Platelet Count 209 10^3/uL (130-400); RBC 3.59 10^6/uL (4.36-5.78); RDW-SD 42.4 fL; WBC 8.19 10^3/uL (4.4-10.8)
[2022-09-26] MEDS: LORazepam 2 MG/ML VIAL 1 MG IVP (03:20)
[2022-09-26 03:29] LABS: ALT 47 U/L (16-63); AST 39 U/L (15-37); Albumin 3.1 g/dL (3.4-5.0); Alkaline Phosphatase 107 U/L (46-116); Anion Gap 7.1 mmol/L (3-11); BUN 9 mg/dL (7-18); Bilirubin, Total 0.6 mg/dL (0.2-1.0); CO2 27.9 mmol/L (21.0-32.0); CREATININE 0.9 mg/dL (0.70-1.30); Calcium 8.8 mg/dL (8.5-10.1); Chloride 97 mmol/L (98-107); Estimated GFR 99.62 (mL/min/1.73m2); Glucose 257 mg/dL (74-106); Potassium 4.1 mmol/L (3.5-5.1); Sodium 132 mmol/L (136-145); Total Protein 7.6 g/dL (6.4-8.2); Troponin I < 50 ng/L (<or=60)
--- NOTE | 2022-09-26 03:56 | DI.VRAD_ITS ---
PROCEDURE INFORMATION: Exam: XR Chest Exam date and time: 09/26/2022 3:17 AM Age: 57 years old Clinical indication: Other: Chest pain TECHNIQUE: Imaging protocol: Radiologic exam of the chest. Views: 1 view. COMPARISON: CR XR CHEST 2V PA LATERAL 09/22/2022 2:49 PM FINDINGS: Lungs: The lungs are clear and well aerated bilaterally. There is no consolidation, infiltrate, or pulmonary edema. The pulmonary vasculature is normal in caliber. Pleural spaces: Unremarkable. No pleural effusion or pneumothorax. Heart/Mediastinum: Heart size is normal. Cardiomediastinal contours are stable and satisfactory. Bones/joints: Unremarkable. IMPRESSION: No acute cardiopulmonary abnormality. Dictated and Authenticated by: Michelle Alicia MD. Ordering:AZEEM Asher MD
[2022-09-26 06:30] LABS: Troponin I < 50 ng/L (<or=60)
== END 2022-09-26 06:58 | disposition home or self-care (01) ==
PROVIDERS: Emergency Provider Emergency Medicine
DX: R07.89 Other chest pain (principal); E11.9 Type 2 diabetes mellitus without complications; E78.5 Hyperlipidemia, unspecified; F17.210 Nicotine dependence, cigarettes, uncomplicated; F17.290 Nicotine dependence, other tobacco product, uncomplicated; Z79.84 Long term (current) use of oral hypoglycemic drugs; Z79.82 Long term (current) use of aspirin
CPT/HCPCS: 36415; 80053; 93005; 96374; 99284; 71045; 84484; 85025; 93010; J2060

== ENCOUNTER 2022-10-03 22:26 | Emergency (ER) | payer MEDICAID, SELFPAY ==
--- NOTE | 2022-10-03 22:30 | RT.EKG_ITS ---
APPROVED REPORT Exam: Resting ECG Reason for Exam: chest pain Patient Location: E HR:65 bpm ECG Measurements Heart Rate 65 AXIS MO 195 P 47 QRSd 101 QRS 22 QT 441 T 42 QTc 458 Conclusion Sinus rhythm...normal P axis, V-rate 60- 99. Sinus. Normal axis. No STEMI. I have reviewed and interpreted ECG and agree with software generated interpretation.
--- NOTE | 2022-10-03 22:45 | DI.RAD_ITS ---
Exam(s) XR CHEST 2V PA LATERAL EXAM: XR CHEST 2V PA LATERAL CLINICAL HISTORY: chest pain, r/o acute disease. TECHNIQUE: 2D digital imaging was performed. COMPARISON: CR,XR XR CHEST 1V IN DI DEPT from 09/26/2022 FINDINGS: 2 views: Heart size is upper normal. The mediastinum is not widened. Lungs are clear. No infiltrates nor pleural effusions. IMPRESSION: No acute pulmonary findings. DATA REPOSITORY: RADIATION DOSE DELIVERED:
[2022-10-03 22:46] VITALS: BP 116/48; PULSE 67; RESP 16; TEMP 36.3; O2SAT 100
[2022-10-03 23:10] LABS: Abs Immature Grans 0.03 10^3/uL (0.0-0.06); Absolute Basophil Count 0.02 10^3/uL (0.0-0.2); Absolute Eosinophil Count 0.78 10^3/uL (0.0-0.7); Absolute Lymphocyte Count 2.11 10^3/uL (1.2-3.4); Absolute Neutrophil Count 4.59 10^3/uL (1.2-6.7); Basophils % 0.2; Eosinophils % 9.6; HCT 33.8 % (40.0-50.0); HGB 11.3 g/dL (13.5-17.5); Immature Grans % 0.4; MCH 30.7 pg (27.0-33.0); MCHC 33.4 % (32.0-36.0); MCV 92 fL (80-95); MPV 8.5 fL (8.0-11.0); Monocytes % 7.4; Neutrophils % 56.4; Platelet Count 189 10^3/uL (130-400); RBC 3.68 10^6/uL (4.36-5.78); RDW 12.7 % (11.8-14.1); RDW-SD 42.6 fL; WBC 8.13 10^3/uL (4.4-10.8)
[2022-10-03 23:30] LABS: ALT 44 U/L (16-63); AST 26 U/L (15-37); Albumin 3.3 g/dL (3.4-5.0); Alkaline Phosphatase 103 U/L (46-116); Anion Gap 7.4 mmol/L (3-11); BUN 10 mg/dL (7-18); Bilirubin, Total 0.6 mg/dL (0.2-1.0); CO2 28.6 mmol/L (21.0-32.0); Calcium 8.9 mg/dL (8.5-10.1); Chloride 97 mmol/L (98-107); Estimated GFR 87.78 (mL/min/1.73m2); Glucose 192 mg/dL (74-106); Magnesium 1.8 mg/dL (1.8-2.4); Sodium 133 mmol/L (136-145); Total Protein 7.7 g/dL (6.4-8.2); Troponin I < 50 ng/L (<or=60)
--- NOTE | 2022-10-03 23:30 | RT.EKG_ITS ---
APPROVED REPORT Exam: Resting ECG Reason for Exam: chest pain Patient Location: E HR:59 bpm ECG Measurements Heart Rate 59 AXIS [place] 195 P 34 QRSd 99 QRS 18 QT 452 T 43 QTc 450 Conclusion Sinus bradycardia...rate< 60
[2022-10-03 23:34] VITALS: PULSE 67; RESP 20; O2SAT 97
--- NOTE | 2022-10-03 23:36 | ED.GENADUL_ITS ---
Discharge Plan Disposition Patient Disposition: Home Condition: Improving Discharge Details Clinical Impression: Chronic chest pain Primary Care Provider: Unknown,Unknown ED Provider: [place] Viera Home Meds and New Rx's Prescriptions: Continued atorvastatin 40 mg tablet 80 mg PO DAILY chlorhexidine gluconate [Peridex] 0.12 % mouthwash 15 ml mucous membrane BID Qty: 473 5RF Rx Instructions: rinse and spit twice a day Emgality Pen 120 mg/mL pen injector 120 mg subcut QMONTH Qty: 1 11RF sumatriptan succinate 100 mg tablet See Rx Instructions PO .COMPLEX Qty: 9 5RF Rx Instructions: take 1 tab at onset of headache; if no relief, may repeat 1 tab after at least 2 hrs; max = 2 tabs/24 hrs PO Claritin Liqui-Gel 10 MG capsule 1 cap PO DAILY Qty: 90 prochlorperazine maleate 10 mg tablet See Rx Instructions .ROUTE .COMPLEX Qty: 20 5RF Dose Instruction: TAKE 1 TABLET BY MOUTH EVERY 8 HOURS NEEDED FOR NAUSEA AND VOMITING, HEADACHE Rx Instructions: TAKE 1 TABLET BY MOUTH EVERY 8 HOURS NEEDED FOR NAUSEA AND VOMITING, HEADACHE multivitamin Tablet 1 tab PO DAILY vitamin A 10,000 unit Capsule 10,000 unit PO DAILY gabapentin 300 mg capsule 300 mg PO TID metformin 500 mg tablet 1 tab PO BID omeprazole 20 mg capsule,delayed release(DR/EC) 40 mg PO DAILY benztropine 0.5 MG tablet 0.5 mg PO BID aspirin,buffd-calcium carb-mag 325 MG tablet 325 mg PO DAILY fluoxetine 40 mg capsule 80 mg PO DAILY Label Comments: TK 2 CS PO QD Risperdal Consta 25 mg/2 mL suspension,extended rel recon 25 mg IM USEASDIRECTD Label Comments: INJECT ONE SYRINGE INTRAMUSCULARLY ONCE EVERY TWO WEEKS Rx Instructions: every 2 weeks lactulose 10 gram/15 mL solution 20 g PO DIRECTED PRN Label Comments: TAKE ONE TO TWO TABLESPOONS BY MOUTH NEEDED WHEN 3 DAYS PASS WITHOUT BOWEL MOVEMENT lorazepam 1 mg tablet 1 mg PO QID Label Comments: TK 1 T PO QAM THEN 2 TS HS Rx Instructions: 01/03/21 1 mg in am and 2 mg at hs Reports 1 mg in am, 1 mg in afternoon, 2 mg at hs albuterol sulfate 90 mcg/actuation aerosol powdr breath activated 2 inh IH Q6H PRN (Reason: shortness of breath or wheezing) Qty: 1 0RF Nu-Mag 71.5 mg tablet,delayed release (DR/EC) 71.5 mg PO DAILY Qty: 20 0RF atenolol 50 mg tablet 75 mg PO DAILY Rx Instructions: To take with 25mg dose for TDD 75mg daily Discharge Instructions Instructions: Chest Pain (ED), Chronic Pain (ED) Additional Instructions: Your blood tests, EKGs and imaging today are reassuring and show no evidence of acute concerning or significant findings. Follow-up with your [employer] chair inspector and leveler tomorrow for further discussion regarding your anxiety and consideration for placement in a care bed. Follow-up with your primary care doctor in 1 week. Return to the emergency department with any worsening or new concerning symptoms. Discharge Data Discharge Date/Time-TO BE ENTERED AT DEPARTURE: 10/04/22 02:32 Discharge Physician: [place] Viera Medical Decision Making 4256 -- 57yo M w/ a h/o anxiety, depression, schizoaffective disorder, hypertension, hyperlipidemia, diabetes, GERD, hypothyroidism, MVP, migraine, morbid obesity who presents to the ED w/ a c/o chest pain that started while sitting at home. Also c/o anxiety and would like to possibly be admitted for anx iety to a psychiatric hospital. He denies suicidal ideation. Vitals within normal limits. EKG notes a rate of 65, sinus, normal axis, no STEMI nondiagnostic. Patient appears comfortable and nontoxic. This is patient's fifth visit to the ED in the past month for chest pain. He is currently asymptomatic. History presentation does not appear consistent with PE or dissection. Considered GI etiology, anxiety. Considering his age and history, will obtain screening labs and plan for repeat troponin and EKG. We will give a dose of Ativan and a bolus of IV fluids and reassess. 0145 -- Labs and imaging reviewed. Patient has had 2 negative troponins and 2 unremarkable EKGs. Patient medically cleared. Will call mental health for evaluation for anxiety. 0220 --patient assessed by Aleksandar with [facility] and cleared for discharge. Patient's [employer] caseworker will follow up with him tomorrow for consideration of placement to care bed. Advised to follow up with the primary care doctor for re-ev aluation. Usual and customary return precautions given prior to discharge. Medical Records Medical records reviewed: Yes I reviewed the patient's medical records. Imaging Data Radiologic Study: Radiologist's impression: XR Chest Exam date and time: 10/03/2022 11:45 PM Age: 57 years old Clinical indication: Other: Chest pain, R/O acute disease TECHNIQUE: Imaging protocol: Radiologic exam of the chest. Views: 2 views. COMPARISON: XR CHEST 1V IN DI DEPT 09/26/2022 3:17 AM FINDINGS: Lungs: The lungs are clear without infiltrate or edema. Pleural spaces: No pleural effusion. No pneumothorax. Heart/Mediastinum: The cardiac silhouette is upper limits of normal in size. Bones/joints: No acute osseous abnormality. IMPRESSION: No acute findings. Lab Data Lab results reviewed: Yes I reviewed the patient's lab results. Labs: Laboratory Tests Range/Units 10/03/22 10/03/22 10/04/22 23:05 23:05 01:11 WBC (4.4-10.8) 10^3/uL 8.13 RBC (4.36-5.78) 10^6/uL 3.68 L Hgb (13.5-17.5) g/dL 11.3 L Hct (40.0-50.0) % 33.8 L MCV (80-95) fL 92 MCH (27.0-33.0) pg 30.7 MCHC (32.0-36.0) % 33.4 RDW (11.8-14.1) % 12.7 Plt Count (130-400) 10^3/uL 189 MPV (8.0-11.0) fL 8.5 Immature Gran % 0.4 Neutrophils % 56.4 Lymphocytes % 26.0 Monocytes % 7.4 Eosinophils % 9.6 Basophils % 0.2 Nucleated RBC % (0.0-0.3) % 0.0 Absolute Neutrophils (1.2-6.7) 10^3/uL 4.59 Absolute Lymphocytes (1.2-3.4) 10^3/uL 2.11 Absolute Monocytes (0.1-0.8) 10^3/uL 0.60 Absolute Eosinophils (0.0-0.7) 10^3/uL 0.78 H Absolute Basophils (0.0-0.2) 10^3/uL 0.02 Sodium (136-145) mmol/L 133 L Potassium (3.5-5.1) mmol/L 4.0 Chloride (98-107) mmol/L 97 L Carbon Dioxide (21.0-32.0) mmol/L 28.6 Anion Gap (3-11) mmol/L 7.4 BUN (7-18) mg/dL 10 Creatinine (0.70-1.30) mg/dL 1.0 Est GFR (CKD-EPI 2020) (mL/min/1.73m2) 87.78 Glucose (74-106) mg/dL 192 H Calcium (8.5-10.1) mg/dL 8.9 Magnesium (1.8-2.4) mg/dL 1.8 Total Bilirubin (0.2-1.0) mg/dL 0.6 AST (15-37) U/L 26 ALT (16-63) U/L 44 Alkaline Phosphatase (46-116) U/L 103 Troponin I (<or=60) ng/L < 50 < 50 Total Protein (6.4-8.2) g/dL 7.7 Albumin (3.4-5.0) g/dL 3.3 L ECG Data Attestation: I personally reviewed and interpreted this ECG (s) as follows: Interpretation: #1 -- rate of 65, sinus, normal axis, no stemi. #2 -- rate of 59, sinus, normal axis, no stemi. Sign Out No HPI General Mode of arrival: ambulatory . Date/Time Provider Initiated Documentation: 10/03/22 22:50 . Limitations to Documentation: no limitations . Information obtained by: patient . HPI Narrative: Patient is a 57-year-old male well known to the emergency department with multiple visits for chest pain related complaints who presents with chest pain that started 30 minutes prior to arrival. Patient states he was sitting at home when he developed a pounding in his left chest associated with a stabbing chest pain. Patient also admits to shortness of breath at this time. Patient states he is currently symptom-free. He denies any fever, cough, dizziness or nausea and vomiting with this episode. He is requesting to speak to mental health as he feels he is under a large amount of stress and anxiety and feels he needs to be admitted to the hospital for his anxiety. He denies any suicidal ideation. He denies any alcohol or drug use. Related Data Home Medications Medication Instructions Recorded Confirmed loratadine 10 mg capsule (Claritin 1 cap PO DAILY #90 tabs 12/16/14 09/26/22 Liqui-Gel) aspirin,buffered (calcium 325 mg PO DAILY 11/18/16 09/26/22 carbonate-magnesium) 325 mg tablet benztropine 0.5 mg tablet 0.5 mg PO BID 11/18/16 09/26/22 fluoxetine 40 mg capsule 80 mg PO DAILY 10/03/20 09/26/22 lactulose 10 gram/15 mL oral 20 g PO DIRECTED PRN 10/03/20 09/26/22 solution risperidone microspheres 25 mg/2 25 mg IM USEASDIRECTD 10/03/20 09/26/22 mL intramuscular susp,ext release (Risperdal Consta) albuterol sulfate 90 mcg/actuation 2 inh inhalation Q6H PRN shortness 12/15/20 09/26/22 breath activated powder inhaler of breath or wheezing #1 ea multivitamin 1 tab PO DAILY 01/26/21 09/26/22 vitamin A 10,000 unit capsule 10,000 unit PO DAILY 01/26/21 09/26/22 lorazepam 1 mg tablet 1 mg PO QID 07/05/21 09/26/22 chlorhexidine gluconate 0.12 % 15 ml mucous membrane BID dental 09/06/21 09/26/22 mouthwash (Peridex) problem #473 mL gabapentin 300 mg capsule 300 mg PO TID 03/05/22 09/26/22 metformin 500 mg tablet 1 tab PO BID 03/18/22 09/26/22 omeprazole 20 mg capsule,delayed 40 mg PO DAILY 03/18/22 09/26/22 release galcanezumab-gnlm 120 mg/mL 120 mg subcut QMONTH #1 mL 04/05/22 09/26/22 subcutaneous pen injector (Emgality Pen) prochlorperazine maleate 10 mg See Rx Instructions .Route 05/02/22 09/26/22 tablet .COMPLEX #20 tabs atorvastatin 40 mg tablet 80 mg PO DAILY 06/01/22 09/26/22 sumatriptan succinate 100 mg tablet See Rx Instructions PO .COMPLEX #9 06/28/22 09/26/22 tabs magnesium chloride 71.5 mg 71.5 mg PO DAILY #20 tabs 09/05/22 09/26/22 (magnesium chloride) tablet,delayed release (Nu-Mag) atenolol 50 mg tablet 75 mg PO DAILY 09/26/22 09/26/22 Previous Rx's Medication Instructions Recorded albuterol sulfate 90 mcg/actuation 2 inh inhalation Q6H PRN shortness 12/15/20 breath activated powder inhaler of breath or wheezing #1 ea chlorhexidine gluconate 0.12 % 15 ml mucous membrane BID dental 09/06/21 mouthwash (Peridex) problem #473 mL galcanezumab-gnlm 120 mg/mL 120 mg subcut QMONTH #1 mL 04/05/22 subcutaneous pen injector (Emgality Pen) prochlorperazine maleate 10 mg See Rx Instructions .Route 05/02/22 tablet .COMPLEX #20 tabs sumatriptan succinate 100 mg tablet See Rx Instructions PO .COMPLEX #9 06/28/22 tabs magnesium chloride 71.5 mg 71.5 mg PO DAILY #20 tabs 09/05/22 (magnesium chloride) tablet,delayed release (Nu-Mag) Allergies Allergy/AdvReac Type Severity Reaction Status Date / Time buspirone Allergy Verified 09/26/22 02:49 paliperidone Allergy Verified 09/26/22 02:49 paroxetine HCl [From Paxil] Allergy Verified 09/26/22 02:49 sertraline Allergy Verified 09/26/22 02:49 ziprasidone [From Geodon] Allergy Other (See Verified 09/26/22 02:49 Comment) aripiprazole [From Abilify] AdvReac Intermediate INVOLUNTARY Verified 09/26/22 02:49 MUSCLE MOVEMENTS divalproex sodium AdvReac Intermediate INVOLUNTARY Verified 09/26/22 02:49 [From Depakote] MUSCLE MOVEMENTS mirtazapine AdvReac Intermediate INVOLUNTARY Verified 09/26/22 02:49 MUSCLE MOVEMENTS risperidone AdvReac Intermediate INVOLUNTARY Verified 09/26/22 02:49 MUSCLE MOVEMENTS benztropine mesylate AdvReac elevated Verified 09/26/22 02:49 [From Cogentin] blood sugars enviornmental Allergy Mild Wheezing Uncoded 09/26/22 02:49 General Stated Complaint: Anxiety CARLOS: 3 Review of Systems All systems reviewed & are unremarkable except as noted in HPI and below Constitutional Constitutional: Reports as per HPI, Denies chills and Denies fever(s) Eyes Eyes: Denies blurry vision ENT Ears, Nose, Mouth, and Throat: Denies dizziness, Denies sore throat and Denies throat swelling Cardiovascular Cardiovascular: Reports chest pain and Denies dyspnea Respiratory Respiratory: Denies cough and Denies dyspnea Gastrointestinal Gastrointestinal: Denies abdominal pain, Denies diarrhea and Denies vomiting Genitourinary Genitourinary: Denies hematuria and Denies dysuria Musculoskeletal Musculoskeletal: Denies back pain and Denies numbness Integumentary/Breasts Skin/Breast: Denies lesions and Denies rash Neurologic Neurologic: Denies dizziness, Denies localized weakness and Denies numbness Allergic/Immunologic Allergic/Immunologic: Denies throat swelling PFSH All Active Problems (Updated 10/04/22 @ 02:28 by [place] Viera DO) Chest pain (Acute) Hypomagnesemia (Acute) Chest discomfort (Acute) Noncompliance with medication regimen (Acute) Chest pain (Acute) Chronic chest pain (Acute) Medication overuse headache (Acute) Drug-seeking behavior (Chronic ~09/20/21) Requests Ritalin from providers Broken teeth (Chronic) Anemia (Chronic) Hiatal hernia (Chronic) protonix not effective, nexium works better 02/12/18 Hypertension (Chronic) pt requests brand name Tenormin vs atenolol 04/02/18 Allergic rhinitis (Chronic) lortadine Tobacco use disorder (Chronic) started 2013 1.5 ppd, pipe 1-7/week, QUIT LATE OCT 2021 Poor dentition (Acute) Obesity (Chronic) BMI 52 Migraine (Chronic) Migraine headache without aura (Acute) Chronic headache (Acute) Chest pain (Acute) Left-sided chest wall pain (Acute) Depression (Acute 10/02/14) Diabetes mellitus type 2 in obese (Acute 09/09/14) GERD (gastroesophageal reflux disease) (Acute 09/07/14) Hypercholesterolemia (Chronic 09/07/14) pt insists on lipitor 80 mg due to family hx Hypothyroidism (acquired) (Acute 09/07/14) Schizoaffective disorder (Acute 09/07/14) FREDDIE Thakkar 09/2014- [facility] inpatient Medical History Anxiety Dental caries Hyperlipidemia Mitral valve prolapse Peripheral neuropathy Trigeminal neuralgia Surgical History No significant past surgical history Family History Father Heart disease [place] Social History Smoking/Tobacco Use Status: Current every day Tobacco Type: cigarettes, pipe Years: 8 Other: States equivalent to 1.5 packs cigarettes and cigars Smoking risk assessment performed?: Yes Alcohol Intake: never Drug use: Never Substance use type: does not use Adopted: No Caregiver/Support person: No Foster care: No Household members: none Housing: apartment Number of Children: 2 number of grandchildren: 1 Communication Needs: Corrective Lenses Education Level: college Do you need help understanding health information?: Always current occupation: Unemployed/Leave of absence Sexually active: No Do you think of yourself as: Decline to provide Current gender identity: male What type of physical activity do you participate in: other Details: weight lifting Frequency: 3-4 times per week Magalie/Faith: Buddhist Seatbelt use: always Drive intox or ride w/intox ems driver: No Working smoke detector in home: Yes Fire extinguisher in home: Yes Carbon monox detector in home: Yes Do you feel safe at home: Yes (anxiety) Do you feel safe in your relationship?: Yes Exam Const General: cooperative and no acute distress Orientation: alert, awake and oriented x3 HENMT Head: normal to inspection Face and sinus: normal facial exam Eyes General: appearance normal, both eyes and all related structures Pupils: PERRL EOM: EOM intact bilaterally Neck Neck: normal visual inspection and No submandibular swelling Lymphatic: no lymphadenopathy noted Chest Chest: normal inspection of the chest and no tenderness Resp Effort & Inspection: normal respiratory effort and able to speak in complete sentences Auscultation: clear to auscultation bilaterally Cardio Rate: regular rate Rhythm: regular rhythm GI Inspection: normal to inspection and obesity Palpation: soft, not firm, not rigid and nontender Auscultation: hypoactive bowel sounds Back/Spine/Pelvis Thoracic/Lumbar Spine: thoracic and lumbar spine normal to inspection Pelvis: no pain with anterior-posterior compression Skin General skin exam: no rashes or lesions noted Neuro General: patient alert, patient awake and patient oriented x3 Cognition: normal cognition Speech: speech normal Motor: muscle tone normal throughout Sensory Exam: no sensory deficits noted Extrem General: normal to inspection, full ROM, capillary refill normal, no calf tenderness bilaterally and no edema Psych Appearance: grossly normal Mental Status: mental status grossly normal Speech and Movement: speech and movement normal Affect: normal affect Course Vital Signs Vital signs: Vital Signs Temperature 97.3 F L 10/03/22 22:46 Pulse 67 10/03/22 22:46 Respiratory Rate 16 10/03/22 22:46 Blood Pressure 116/48 L 10/03/22 22:46 Pulse Oximetry 100 10/03/22 22:46 Temperature 97.3 F L 10/03/22 22:46 Temperature Source Oral 10/03/22 22:46 Pulse 67 10/03/22 22:46 Respiratory Rate 16 10/03/22 22:46 Respiratory Effort 10/03/22 22:51 Respiratory Depth Normal 10/03/22 22:51 Respiratory Pattern Normal 10/03/22 22:51 Blood Pressure 116/48 L 10/03/22 22:46 Blood Pressure Position Supine 10/03/22 22:46 Pulse Oximetry 100 10/03/22 22:46 Oxygen Delivery Method Room Air 10/03/22 22:46 Oxygen Flow Rate 0 10/03/22 22:46 Pain Level 7 10/03/22 22:46 Lab/Test Results Lab/Test Results: Laboratory Tests Range/Units 10/03/22 10/03/22 23:05 23:05 WBC (4.4-10.8) 10^3/uL 8.13 RBC (4.36-5.78) 10^6/uL 3.68 L Hgb (13.5-17.5) g/dL 11.3 L Hct (40.0-50.0) % 33.8 L MCV (80-95) fL 92 MCH (27.0-33.0) pg 30.7 MCHC (32.0-36.0) % 33.4 RDW (11.8-14.1) % 12.7 Plt Count (130-400) 10^3/uL 189 MPV (8.0-11.0) fL 8.5 Immature Gran % 0.4 Neutrophils % 56.4 Lymphocytes % 26.0 Monocytes % 7.4 Eosinophils % 9.6 Basophils % 0.2 Nucleated RBC % (0.0-0.3) % 0.0 Absolute Neutrophils (1.2-6.7) 10^3/uL 4.59 Absolute Lymphocytes (1.2-3.4) 10^3/uL 2.11 Absolute Monocytes (0.1-0.8) 10^3/uL 0.60 Absolute Eosinophils (0.0-0.7) 10^3/uL 0.78 H Absolute Basophils (0.0-0.2) 10^3/uL 0.02 Sodium (136-145) mmol/L 133 L Potassium (3.5-5.1) mmol/L 4.0 Chloride (98-107) mmol/L 97 L Carbon Dioxide (21.0-32.0) mmol/L 28.6 Anion Gap (3-11) mmol/L 7.4 BUN (7-18) mg/dL 10 Creatinine (0.70-1.30) mg/dL 1.0 Est GFR (CKD-EPI 2020) (mL/min/1.73m2) 87.78 Glucose (74-106) mg/dL 192 H Calcium (8.5-10.1) mg/dL 8.9 Magnesium (1.8-2.4) mg/dL 1.8 Total Bilirubin (0.2-1.0) mg/dL 0.6 AST (15-37) U/L 26 ALT (16-63) U/L 44 Alkaline Phosphatase (46-116) U/L 103 Troponin I (<or=60) ng/L < 50 Total Protein (6.4-8.2) g/dL 7.7 Albumin (3.4-5.0) g/dL 3.3 L
[2022-10-03 23:40] VITALS: PULSE 67; RESP 13; O2SAT 97
[2022-10-03 23:50] VITALS: PULSE 64; RESP 18; O2SAT 98
[2022-10-04] VITALS (12 sets, daily range): PULSE 58–67; RESP 10–23; O2SAT 95–97
--- NOTE | 2022-10-04 00:06 | DI.VRAD_ITS ---
PROCEDURE INFORMATION: Exam: XR Chest Exam date and time: 10/03/2022 11:45 PM Age: 57 years old Clinical indication: Other: Chest pain, R/O acute disease TECHNIQUE: Imaging protocol: Radiologic exam of the chest. Views: 2 views. COMPARISON: XR CHEST 1V IN DI DEPT 09/26/2022 3:17 AM FINDINGS: Lungs: The lungs are clear without infiltrate or edema. Pleural spaces: No pleural effusion. No pneumothorax. Heart/Mediastinum: The cardiac silhouette is upper limits of normal in size. Bones/joints: No acute osseous abnormality. IMPRESSION: No acute findings. Dictated and Authenticated by: Sparkle Moody MD. Ordering:DORENE Bartholomew MD
[2022-10-04 01:33] LABS: Troponin I < 50 ng/L (<or=60)
== END 2022-10-04 02:32 | disposition home or self-care (01) ==
PROVIDERS: Emergency Provider Physician Assistant
DX: G89.29 Other chronic pain (principal); R07.89 Other chest pain; I10 Essential (primary) hypertension; E78.5 Hyperlipidemia, unspecified; E11.9 Type 2 diabetes mellitus without complications; E66.01 Morbid (severe) obesity due to excess calories; F25.9 Schizoaffective disorder, unspecified; Z68.43 Body mass index [BMI] 50.0-59.9, adult
CPT/HCPCS: 36415; 80053; 93005; 96360; 99284; 71046; 83735; 84484; 85025; 93010; 99285

== ENCOUNTER 2022-10-10 08:14 | Emergency (ER) | payer MEDICAID, SELFPAY ==
[2022-10-10] VITALS (31 sets, daily range): BP systolic 101–125; BP diastolic 46–71; PULSE 77–100; RESP 12–22; TEMP 36.2; O2SAT 97
--- NOTE | 2022-10-10 08:11 | RT.EKG_ITS ---
APPROVED REPORT Exam: Resting ECG Reason for Exam: chest pain Patient Location: E HR:89 bpm ECG Measurements Heart Rate 89 AXIS PA 173 P 61 QRSd 98 QRS 41 QT 384 T 43 QTc 467 Conclusion Sinus rhythm...normal P axis, V-rate 60- 99
[2022-10-10] MEDS: LORazepam 1 MG TAB PO (08:45)
[2022-10-10 08:56] LABS: Abs Immature Grans 0.03 10^3/uL (0.0-0.06); Absolute Basophil Count 0.03 10^3/uL (0.0-0.2); Absolute Eosinophil Count 0.55 10^3/uL (0.0-0.7); Absolute Lymphocyte Count 1.66 10^3/uL (1.2-3.4); Absolute Monocyte Count 0.42 10^3/uL (0.1-0.8); Absolute Neutrophil Count 4.83 10^3/uL (1.2-6.7); Basophils % 0.4; Eosinophils % 7.3; HCT 34.5 % (40.0-50.0); HGB 11.8 g/dL (13.5-17.5); Immature Grans % 0.4; Lymphocytes % 22.1; MCH 31.1 pg (27.0-33.0); MCHC 34.2 % (32.0-36.0); MCV 91 fL (80-95); Monocytes % 5.6; Neutrophils % 64.2; Platelet Count 184 10^3/uL (130-400); RBC 3.79 10^6/uL (4.36-5.78); RDW 12.6 % (11.8-14.1); RDW-SD 41.6 fL; WBC 7.52 10^3/uL (4.4-10.8)
--- NOTE | 2022-10-10 09:00 | DI.RAD_ITS ---
Exam(s) XR PORTABLE CHEST AP EXAM: XR PORTABLE CHEST AP CLINICAL HISTORY: chest pain TECHNIQUE: 2D digital imaging was performed of the chest. One image was obtained. An AP view was ob tained. COMPARISON: CR,XR XR PORTABLE CHEST AP from 01/26/2021 CR,XR XR CHEST 2V PA LATERAL from 10/03/2022 FINDINGS: MEDIASTINUM: Normal. HEART: Normal. PULMONARY VASCULATURE: Normal. LUNGS: Clear. PLEURAL SPACE: No pleural effusion or pneumothorax. BONE:Within normal limits for the patient's age. OTHER FINDINGS:Normal. IMPRESSION: No acute pulmonary findings. DATA REPOSITORY: RADIATION DOSE DELIVERED:
[2022-10-10 09:10] LABS: ALT 42 U/L (16-63); AST 21 U/L (15-37); Albumin 3.1 g/dL (3.4-5.0); Alkaline Phosphatase 114 U/L (46-116); Anion Gap 9.1 mmol/L (3-11); BUN 8 mg/dL (7-18); Bilirubin, Total 0.5 mg/dL (0.2-1.0); CO2 26.9 mmol/L (21.0-32.0); Calcium 7.9 mg/dL (8.5-10.1); Chloride 100 mmol/L (98-107); Estimated GFR 87.78 (mL/min/1.73m2); Glucose 268 mg/dL (74-106); Magnesium 1.5 mg/dL (1.8-2.4); Sodium 136 mmol/L (136-145); Total Protein 7.5 g/dL (6.4-8.2); Troponin I < 50 ng/L (<or=60)
[2022-10-10] MEDS: Magnesium Gluconate 500 MG TAB PO (10:09)
--- NOTE | 2022-10-10 10:30 | RT.EKG_ITS ---
APPROVED REPORT Exam: Resting ECG Reason for Exam: CHEST PAIN Patient Location: E HR:82 bpm ECG Measurements Heart Rate 82 AXIS IL 173 P 26 QRSd 96 QRS 11 QT 383 T 67 QTc 446 Conclusion Sinus rhythm...normal P axis, V-rate 60- 99
[2022-10-10 11:13] LABS: Troponin I < 50 ng/L (<or=60)
--- NOTE | 2022-10-15 09:11 | W.ED.GENAD ---
Discharge Plan Disposition Patient Disposition: Home Condition: Stable Discharge Details Clinical Impression: Chest pain Primary Care Provider: Unknown,Unknown ED Provider: Lucille Farley Home Meds and New Rx's Prescriptions: Continued atorvastatin 40 mg tablet 80 mg PO DAILY chlorhexidine gluconate [Peridex] 0.12 % mouthwash 15 ml mucous membrane BID Qty: 473 5RF Rx Instructions: rinse and spit twice a day Emgality Pen 120 mg/mL pen injector 120 mg subcut QMONTH Qty: 1 11RF sumatriptan succinate 100 mg tablet See Rx Instructions PO .COMPLEX Qty: 9 5RF Rx Instructions: take 1 tab at onset of headache; if no relief, may repeat 1 tab after at least 2 hrs; max = 2 tabs/24 hrs PO Claritin Liqui-Gel 10 MG capsule 1 cap PO DAILY Qty: 90 prochlorperazine maleate 10 mg tablet See Rx Instructions .ROUTE .COMPLEX Qty: 20 5RF Dose Instruction: TAKE 1 TABLET BY MOUTH EVERY 8 HOURS NEEDED FOR NAUSEA AND VOMITING, HEADACHE Rx Instructions: TAKE 1 TABLET BY MOUTH EVERY 8 HOURS NEEDED FOR NAUSEA AND VOMITING, HEADACHE multivitamin Tablet 1 tab PO DAILY vitamin A 10,000 unit Capsule 10,000 unit PO DAILY gabapentin 300 mg capsule 300 mg PO TID metformin 500 mg tablet 1 tab PO BID omeprazole 20 mg capsule,delayed release(DR/EC) 40 mg PO DAILY benztropine 0.5 MG tablet 0.5 mg PO BID aspirin,buffd-calcium carb-mag 325 MG tablet 325 mg PO DAILY fluoxetine 40 mg capsule 80 mg PO DAILY Label Comments: TK 2 CS PO QD Risperdal Consta 25 mg/2 mL suspension,extended rel recon 25 mg IM USEASDIRECTD Label Comments: INJECT ONE SYRINGE INTRAMUSCULARLY ONCE EVERY TWO WEEKS Rx Instructions: every 2 weeks lactulose 10 gram/15 mL solution 20 g PO DIRECTED PRN Label Comments: TAKE ONE TO TWO TABLESPOONS BY MOUTH NEEDED WHEN 3 DAYS PASS WITHOUT BOWEL MOVEMENT lorazepam 1 mg tablet 1 mg PO QID Label Comments: TK 1 T PO QAM THEN 2 TS HS Rx Instructions: 01/03/21 1 mg in am and 2 mg at hs Reports 1 mg in am, 1 mg in afternoon, 2 mg at hs albuterol sulfate 90 mcg/actuation aerosol powdr breath activated 2 inh IH Q6H PRN (Reason: shortness of breath or wheezing) Qty: 1 0RF Nu-Mag 71.5 mg tablet,delayed release (DR/EC) 71.5 mg PO DAILY Qty: 20 0RF atenolol 50 mg tablet 75 mg PO DAILY Rx Instructions: To take with 25mg dose for TDD 75mg daily Discharge Instructions Instructions: Chest Pain (ED) Additional Instructions: Please follow-up with your primary care physician for reassessment regarding your chest pain recommend 24-hour recheck Return earlier should you have new or worsening complaints Continue on your prescribed medications Discharge Data Discharge Date/Time-TO BE ENTERED AT DEPARTURE: 10/10/22 11:26 Medical Decision Making This 57-year-old gentleman who is well-known to our facility presents with chest pain that is typical for him without any acute change per patient After reviewing a troponin and delta troponin levels and EKG secondary patient's comorbidities It was determined that these were within normal limits and at baseline for patient He is feeling symptomatic improvement after anxiety medication and is currently requesting discharge home His labs and exam findings are stable for patient and she is encouraged to follow-up with his doctor for possible stress test at their discretion My suspicion that this is cardiac is low in nature although patient does have comorbidities that place him at increased risk for having coronary artery disease including that of tobacco use which is persistent, he was encouraged to talk to his doctor about smoking cessation He is given the threshold to return with new or worsening complaints I reviewed his chest x-ray which does show acute abnormality and his chest CT from May 2022 which does not show acute abnormality Return precautions reviewed and patient expressed understanding Medical Records Medical records reviewed: Yes I reviewed the patient's medical records. Lab Data Lab results reviewed: Yes I reviewed the patient's lab results. Sign Out No HPI General Date/Time Provider Initiated Documentation: 10/10/22 08:20. HPI Narrative: 57-year-old male with history of in djq-yartnwy-hremyewwk diabetes, chest pain, hypertension, hyperlipidemia, anxiety presents with report of chest pain which began approximately 630 this morning. He states it radiates to his left arm. He states he feels anxious. He states this is similar to the numerous episodes these have this week. We will he did not take his medications for anxiety this morning reportedly. He denies any sweating or associated shortness of breath. He denies any fever or chills. Denies any trauma to the affected area. He denies any known history of coronary artery disease. Denies any illicit drug use. Related Data Home Medications Medication Instructions Recorded Confirmed loratadine 10 mg capsule (Claritin 1 cap PO DAILY #90 tabs 12/16/14 10/10/22 Liqui-Gel) aspirin,buffered (calcium 325 mg PO DAILY 11/18/16 10/10/22 carbonate-magnesium) 325 mg tablet benztropine 0.5 mg tablet 0.5 mg PO BID 11/18/16 10/10/22 fluoxetine 40 mg capsule 80 mg PO DAILY 10/03/20 10/10/22 lactulose 10 gram/15 mL oral 20 g PO DIRECTED PRN 10/03/20 10/10/22 solution risperidone microspheres 25 mg/2 25 mg IM USEASDIRECTD 10/03/20 10/10/22 mL intramuscular susp,ext release (Risperdal Consta) albuterol sulfate 90 mcg/actuation 2 inh inhalation Q6H PRN shortness 12/15/20 10/10/22 breath activated powder inhaler of breath or wheezing #1 ea multivitamin 1 tab PO DAILY 01/26/21 10/10/22 vitamin A 10,000 unit capsule 10,000 unit PO DAILY 01/26/21 10/10/22 lorazepam 1 mg tablet 1 mg PO QID 07/05/21 10/10/22 chlorhexidine gluconate 0.12 % 15 ml mucous membrane BID dental 09/06/21 10/10/22 mouthwash (Peridex) problem #473 mL gabapentin 300 mg capsule 300 mg PO TID 03/05/22 10/10/22 metformin 500 mg tablet 1 tab PO BID 03/18/22 10/10/22 omeprazole 20 mg capsule,delayed 40 mg PO DAILY 03/18/22 10/10/22 release galcanezumab-gnlm 120 mg/mL 120 mg subcut QMONTH #1 mL 04/05/22 10/10/22 subcutaneous pen injector (Emgality Pen) prochlorperazine maleate 10 mg See Rx Instructions .Route 05/02/22 10/10/22 tablet .COMPLEX #20 tabs atorvastatin 40 mg tablet 80 mg PO DAILY 06/01/22 10/10/22 sumatriptan succinate 100 mg tablet See Rx Instructions PO .COMPLEX #9 06/28/22 10/10/22 tabs magnesium chloride 71.5 mg 71.5 mg PO DAILY #20 tabs 09/05/22 10/10/22 (magnesium chloride) tablet,delayed release (Nu-Mag) atenolol 50 mg tablet 75 mg PO DAILY 09/26/22 10/10/22 Previous Rx's Medication Instructions Recorded albuterol sulfate 90 mcg/actuation 2 inh inhalation Q6H PRN shortness 12/15/20 breath activated powder inhaler of breath or wheezing #1 ea chlorhexidine gluconate 0.12 % 15 ml mucous membrane BID dental 09/06/21 mouthwash (Peridex) problem #473 mL galcanezumab-gnlm 120 mg/mL 120 mg subcut QMONTH #1 mL 04/05/22 subcutaneous pen injector (Emgality Pen) prochlorperazine maleate 10 mg See Rx Instructions .Route 05/02/22 tablet .COMPLEX #20 tabs sumatriptan succinate 100 mg tablet See Rx Instructions PO .COMPLEX #9 06/28/22 tabs magnesium chloride 71.5 mg 71.5 mg PO DAILY #20 tabs 09/05/22 (magnesium chloride) tablet,delayed release (Nu-Mag) Allergies Allergy/AdvReac Type Severity Reaction Status Date / Time buspirone Allergy Verified 10/10/22 08:21 paliperidone Allergy Verified 10/10/22 08:21 paroxetine HCl [From Paxil] Allergy Verified 10/10/22 08:21 sertraline Allergy Verified 10/10/22 08:21 ziprasidone [From Geodon] Allergy Other (See Verified 10/10/22 08:21 Comment) aripiprazole [From Abilify] AdvReac Intermediate INVOLUNTARY Verified 10/10/22 08:21 MUSCLE MOVEMENTS divalproex sodium AdvReac Intermediate INVOLUNTARY Verified 10/10/22 08:21 [From Depakote] MUSCLE MOVEMENTS mirtazapine AdvReac Intermediate INVOLUNTARY Verified 10/10/22 08:21 MUSCLE MOVEMENTS risperidone AdvReac Intermediate INVOLUNTARY Verified 10/10/22 08:21 MUSCLE MOVEMENTS benztropine mesylate AdvReac elevated Verified 10/10/22 08:21 [From Cogentin] blood sugars enviornmental Allergy Mild Wheezing Uncoded 10/10/22 08:21 General Stated Complaint: Chest Pain CARLOS: 2 Review of Systems All systems reviewed & are unremarkable except as noted in HPI and below PFSH All Active Problems (Updated 10/10/22 @ 11:19 by JORDANA Salazar) Chest discomfort (Acute) Noncompliance with medication regimen (Acute) Chest pain (Acute) Chronic chest pain (Acute) Medication overuse headache (Acute) Drug-seeking behavior (Chronic ~09/20/21) Requests Ritalin from providers Broken teeth (Chronic) Anemia (Chronic) Hiatal hernia (Chronic) protonix not effective, nexium works better 02/12/18 Hypertension (Chronic) pt requests brand name Tenormin vs atenolol 04/02/18 Allergic rhinitis (Chronic) lortadine Tobacco use disorder (Chronic) started 2013 1.5 ppd, pipe 1-7/week, QUIT LATE OCT 2021 Poor dentition (Acute) Obesity (Chronic) BMI 52 Migraine (Chronic) Migraine headache without aura (Acute) Chronic headache (Acute) Chest pain (Acute) Left-sided chest wall pain (Acute) Depression (Acute 10/02/14) Diabetes mellitus type 2 in obese (Acute 09/09/14) GERD (gastroesophageal reflux disease) (Acute 09/07/14) Hypercholesterolemia (Chronic 09/07/14) pt insists on lipitor 80 mg due to family hx Hypothyroidism (acquired) (Acute 09/07/14) Schizoaffective disorder (Acute 09/07/14) FREDDIE Thakkar 09/2014- [facility] inpatient Medical History Anxiety Dental caries Hyperlipidemia Mitral valve prolapse Peripheral neuropathy Trigeminal neuralgia Surgical History No significant past surgical history Family History Father Heart disease NM Social History Smoking/Tobacco Use Status: Current every day Tobacco Type: cigarettes, pipe Years: 8 Other: States equivalent to 1.5 packs cigarettes and cigars Smoking risk assessment performed?: Yes Alcohol Intake: never Drug use: Never Substance use type: does not use Adopted: No Caregiver/Support person: No Foster care: No Household members: none Housing: apartment Number of Children: 2 number of grandchildren: 1 Communication Needs: Corrective Lenses Education Level: college Do you need help understanding health information?: Always current occupation: Unemployed/Leave of absence Sexually active: No Do you think of yourself as: Decline to provide Current gender identity: male What type of physical activity do you participate in: other Details: weight lifting Frequency: 3-4 times per week Magalie/Adventist: Nondenominational Seatbelt use: always Drive intox or ride w/intox set key driver: No Working smoke detector in home: Yes Fire extinguisher in home: Yes Carbon monox detector in home: Yes Do you feel safe at home: Yes (anxiety) Do you feel safe in your relationship?: Yes Exam Const General: cooperative, comfortable and no acute distress Eyes General: appearance normal, both eyes and all related structures Chest Other: Reproducible right-sided chest wall pain Resp Effort & Inspection: normal respiratory effort Auscultation: clear to auscultation bilaterally Cardio Rate: regular rate Rhythm: regular rhythm Other: Distal pulses intact all 4 extremities GI Inspection: normal to inspection Other: Abdominal bruit or pulsatile mass, nontender abdominal exam Neuro General: patient alert and patient oriented x3 Extrem General: normal to inspection Course Vital Signs Vital signs: Vital Signs Temperature 36.2 C L 10/10/22 08:14 Pulse 85 10/10/22 08:14 Respiratory Rate 15 10/10/22 08:14 Blood Pressure 115/54 L 10/10/22 08:14 Pulse Oximetry 97 10/10/22 08:14 Temperature 36.2 C L 10/10/22 08:14 Temperature Source Temporal Artery Scan 10/10/22 08:14 Pulse 80 10/10/22 10:37 Pulse 84 10/10/22 11:00 Respiratory Rate 12 10/10/22 11:00 Respiratory Effort 10/10/22 08:25 Respiratory Depth Normal 10/10/22 08:25 Respiratory Pattern Normal 10/10/22 08:25 Blood Pressure 124/46 L 10/10/22 10:37 Blood Pressure Mean 65 10/10/22 10:37 Blood Pressure Position Supine 10/10/22 08:14 Pulse Oximetry 97 10/10/22 08:14 Oxygen Delivery Method Room Air 10/10/22 08:14 Oxygen Flow Rate 0 10/10/22 08:14 Pain Level 8 10/10/22 08:25 Lab/Test Results Lab/Test Results: Laboratory Tests Range/Units 10/10/22 10/10/22 10/10/22 08:30 08:30 10:30 WBC (4.4-10.8) 10^3/uL 7.52 RBC (4.36-5.78) 10^6/uL 3.79 L Hgb (13.5-17.5) g/dL 11.8 L Hct (40.0-50.0) % 34.5 L MCV (80-95) fL 91 MCH (27.0-33.0) pg 31.1 MCHC (32.0-36.0) % 34.2 RDW (11.8-14.1) % 12.6 Plt Count (130-400) 10^3/uL 184 MPV (8.0-11.0) fL 9.0 Immature Gran % 0.4 Neutrophils % 64.2 Lymphocytes % 22.1 Monocytes % 5.6 Eosinophils % 7.3 Basophils % 0.4 Nucleated RBC % (0.0-0.3) % 0.0 Absolute Neutrophils (1.2-6.7) 10^3/uL 4.83 Absolute Lymphocytes (1.2-3.4) 10^3/uL 1.66 Absolute Monocytes (0.1-0.8) 10^3/uL 0.42 Absolute Eosinophils (0.0-0.7) 10^3/uL 0.55 Absolute Basophils (0.0-0.2) 10^3/uL 0.03 Sodium (136-145) mmol/L 136 Potassium (3.5-5.1) mmol/L 4.0 Chloride (98-107) mmol/L 100 Carbon Dioxide (21.0-32.0) mmol/L 26.9 Anion Gap (3-11) mmol/L 9.1 BUN (7-18) mg/dL 8 Creatinine (0.70-1.30) mg/dL 1.0 Est GFR (CKD-EPI 2020) (mL/min/1.73m2) 87.78 Glucose (74-106) mg/dL 268 H Calcium (8.5-10.1) mg/dL 7.9 L Magnesium (1.8-2.4) mg/dL 1.5 L Total Bilirubin (0.2-1.0) mg/dL 0.5 AST (15-37) U/L 21 ALT (16-63) U/L 42 Alkaline Phosphatase (46-116) U/L 114 Troponin I (<or=60) ng/L < 50 < 50 Total Protein (6.4-8.2) g/dL 7.5 Albumin (3.4-5.0) g/dL 3.1 L
== END 2022-10-10 11:26 | disposition home or self-care (01) ==
PROVIDERS: Emergency Provider Physician Assistant
DX: R07.9 Chest pain, unspecified (principal); I10 Essential (primary) hypertension; E11.9 Type 2 diabetes mellitus without complications; E78.5 Hyperlipidemia, unspecified; Z79.82 Long term (current) use of aspirin; Z79.84 Long term (current) use of oral hypoglycemic drugs
CPT/HCPCS: 36415; 80053; 93005; 99284; 71045; 83735; 84484; 85025; 93010; 99285

== ENCOUNTER 2022-12-02 12:18 | Emergency (ER) | payer MEDICAID, SELFPAY ==
[2022-12-02] VITALS (33 sets, daily range): BP systolic 116–170; BP diastolic 68–84; PULSE 61–86; RESP 12–25; TEMP 36.7; O2SAT 90–97
--- NOTE | 2022-12-02 12:00 | RT.EKG_ITS ---
APPROVED REPORT Exam: Resting ECG Reason for Exam: chest pain Patient Location: E HR:78 bpm ECG Measurements Heart Rate 78 AXIS AZ 180 P 47 QRSd 103 QRS 45 QT 414 T 55 QTc 472 Conclusion Sinus rhythm...normal P axis, V-rate 60- 99
--- NOTE | 2022-12-02 12:30 | DI.RAD_ITS ---
Exam(s) XR CHEST 2V PA LATERAL EXAM: XR CHEST 2V PA LATERAL CLINICAL HISTORY: chest pain TECHNIQUE: 2D digital imaging was performed. COMPARISON: CT CT CHEST PE CTA from 05/17/2022 CR,XR XR CHEST 1V IN DI DEPT from 09/26/2022 CR,XR XR CHEST 2V PA LATERAL from 10/03/2022 CR XR PORTABLE CHEST AP from 10/10/2022 FINDINGS: HEART: Normal size. Aorta: Not dilated. PULMONARY VASCULATURE: Normal. LUNGS: No focal area of consolidation. Question of mild perihilar infiltrates. PLEURAL SPACE: No pleural effusion or pneumothorax. BONE:Unremarkable for age. IMPRESSION: Question mild perihilar infiltrates. DATA REPOSITORY: RADIATION DOSE DELIVERED:
--- NOTE | 2022-12-02 13:14 | ED.GENADUL_ITS ---
Discharge Plan Discharge Details Chief Complaint: Chest Pain Primary Care Provider: Unknown,Unknown ED Provider: Tyrone Cancino Home Meds and New Rx's Prescriptions: No Action atorvastatin 40 mg tablet 80 mg PO DAILY chlorhexidine gluconate [Peridex] 0.12 % mouthwash 15 ml mucous membrane BID Qty: 473 5RF Rx Instructions: rinse and spit twice a day Emgality Pen 120 mg/mL pen injector 120 mg subcut QMONTH Qty: 1 11RF sumatriptan succinate 100 mg tablet See Rx Instructions PO .COMPLEX Qty: 9 5RF Rx Instructions: take 1 tab at onset of headache; if no relief, may repeat 1 tab after at least 2 hrs; max = 2 tabs/24 hrs PO Claritin Liqui-Gel 10 MG capsule 1 cap PO DAILY Qty: 90 prochlorperazine maleate 10 mg tablet See Rx Instructions .ROUTE .COMPLEX Qty: 20 5RF Dose Instruction: TAKE 1 TABLET BY MOUTH EVERY 8 HOURS NEEDED FOR NAUSEA AND VOMITING, HEADACHE Rx Instructions: TAKE 1 TABLET BY MOUTH EVERY 8 HOURS NEEDED FOR NAUSEA AND VOMITING, HE ADACHE multivitamin Tablet 1 tab PO DAILY vitamin A 10,000 unit Capsule 10,000 unit PO DAILY gabapentin 300 mg capsule 300 mg PO TID metformin 500 mg tablet 1 tab PO BID omeprazole 20 mg capsule,delayed release(DR/EC) 40 mg PO DAILY benztropine 0.5 MG tablet 0.5 mg PO BID aspirin,buffd-calcium carb-mag 325 MG tablet 325 mg PO DAILY fluoxetine 40 mg capsule 80 mg PO DAILY Label Comments: TK 2 CS PO QD Risperdal Consta 25 mg/2 mL suspension,extended rel recon 25 mg IM USEASDIRECTD Label Comments: INJECT ONE SYRINGE INTRAMUSCULARLY ONCE EVERY TWO WEEKS Rx Instructions: every 2 weeks lactulose 10 gram/15 mL solution 20 g PO DIRECTED PRN Label Comments: TAKE ONE TO TWO TABLESPOONS BY MOUTH NEEDED WHEN 3 DAYS PASS WITHOUT BOWEL MOVEMENT lorazepam 1 mg tablet 1 mg PO QID Label Comments: TK 1 T PO QAM THEN 2 TS HS Rx Instructions: 01/03/21 1 mg in am and 2 mg at hs Reports 1 mg in am, 1 mg in afternoon, 2 mg at hs albuterol sulfate 90 mcg/actuation aerosol powdr breath activated 2 inh IH Q6H PRN (Reason: shortness of breath or wheezing) Qty: 1 0RF Nu-Mag 71.5 mg tablet,delayed release (DR/EC) 71.5 mg PO DAILY Qty: 20 0RF atenolol 50 mg tablet 75 mg PO DAILY Rx Instructions: To take with 25mg dose for TDD 75mg daily Medical Decision Making 57-year-old gentleman, smoker, medical history of diabetes, hypothyroidism, schizoaffective disorder, hypertension, GERD, chronic chest pain presents reporting chest pain which began about 45 minutes ago, resolved now, increased anxiety, has been taking his Ativan as directed, and bilateral intermittent eye pain for at least 2 months. Visual acuities were obtained and left eye was 20/50, right eye was 20/40, bilaterally 20/30. I obtained intraocular pressure, right eye was 18-19-18, left eye was 19-20-20 with 3 readings on each eye. Patient already took full dose aspirin today. Plan to initiate a cardiac work- up. We will also provide 1 mg Ativan as patient reports increased anxiety. Patient did present with a blood pressure of 170/74, pressure is now 116/84. Laboratory values do not reveal any leukocytosis. Mild anemia, hemoglobin 11.9 with hematocrit of 35.3, this appears to be near baseline. Platelet count normal at 170. Sodium 132 potassium 4.5 anion gap 7.0 creatinine one-point multi GFR of 78.30. Glucose 222. Magnesium 1.6, will provide 1 g IV magnesium. Troponin less than 50, TSH 5.39, this appears unchanged when compared to January 2021. Free T4 of 1.14. Negative COVID, flu, RSV X-ray reveals bilateral bronchial-central interstitial edema or inflammation. Patient reports that his eye pain is greatly improved, now only a 2 out of 10. Denies headache. Anxiety is almost completely resolved with the Ativan. Denies any chest pain whatsoever. Patient is agreeable to awaiting a delta troponin. This documentation was generated using [id number] system, please disregard any oddities of phrase or misspellings. Medical Records Medical records reviewed: Yes I reviewed the patient's medical records. Imaging Data Radiologic Study: Attestation: I personally reviewed and interpreted this imaging study as follows: Imaging: X-Ray Radiologist's impression: PROCEDURE INFORMATION: Exam: XR Chest Exam date and time: 12/02/2022 12:51 PM Age: 57 years old Clinical indication: Chest pain TECHNIQUE: Imaging protocol: Radiologic exam of the chest. Views: 2 views. COMPARISON: CR XR PORTABLE CHEST AP 10/10/2022 8:41 AM FINDINGS: Lungs: There is bilateral central bronchial wall thickening and perihilar haziness. No septal line formation or fissural thickening. No focal peripheral lung consolidation, air bronchogram formation, or silhouette sign. Pleural spaces: No pleural effusion or pneumothorax. Heart/Mediastinum: The cardiac silhouette is not enlarged. The mediastinal contours are normal. Bones/joints: No acute osseous abnormality. IMPRESSION: Bilateral bronchial/central interstitial edema or inflammation Lab Data Lab results reviewed: Yes I reviewed the patient's lab results. Labs: Laboratory Tests Range/Units 12/02/22 12/02/22 12/02/22 12:39 12:45 14:00 WBC (4.4-10.8) 10^3/uL RBC (4.36-5.78) 10^6/uL Hgb (13.5-17.5) g/dL Hct (40.0-50.0) % MCV (80-95) fL MCH (27.0-33.0) pg MCHC (32.0-36.0) % RDW (11.8-14.1) % Plt Count (130-400) 10^3/uL MPV (8.0-11.0) fL Immature Gran % Neutrophils % Lymphocytes % Monocytes % Eosinophils % Basophils % Nucleated RBC % (0.0-0.3) % Absolute Neutrophils (1.2-6.7) 10^3/uL Absolute Lymphocytes (1.2-3.4) 10^3/uL Absolute Monocytes (0.1-0.8) 10^3/uL Absolute Eosinophils (0.0-0.7) 10^3/uL Absolute Basophils (0.0-0.2) 10^3/uL Sodium (136-145) mmol/L 132 L Potassium (3.5-5.1) mmol/L 4.5 Chloride (98-107) mmol/L 96 L Carbon Dioxide (21.0-32.0) mmol/L 29.0 Anion Gap (3-11) mmol/L 7.0 BUN (7-18) mg/dL 5 L Creatinine (0.70-1.30) mg/dL 1.1 Est GFR (CKD-EPI 2020) (mL/min/1.73m2) 78.30 Glucose (74-106) mg/dL 222 H Calcium (8.5-10.1) mg/dL 8.9 Magnesium (1.8-2.4) mg/dL 1.6 L Total Bilirubin (0.2-1.0) mg/dL 0.5 AST (15-37) U/L 21 ALT (16-63) U/L 40 Alkaline Phosphatase (46-116) U/L 104 Troponin I (<or=60) ng/L < 50 Total Protein (6.4-8.2) g/dL 8.4 H Albumin (3.4-5.0) g/dL 3.6 TSH Cancelled 5.39 H Free T4 (0.76-1.46) ng/dL 1.14 COVID-19 Source Nasopharynx SARS-CoV-2 (PCR) (Negative) Negative Influenza Type A (PCR) (Negative) Negative Influenza Type B (PCR) (Negative) Negative RSV (PCR) (Negative) Negative Range/Units 12/02/22 14:00 WBC (4.4-10.8) 10^3/uL 7.27 RBC (4.36-5.78) 10^6/uL 3.92 L Hgb (13.5-17.5) g/dL 11.9 L Hct (40.0-50.0) % 35.3 L MCV (80-95) fL 90 MCH (27.0-33.0) pg 30.4 MCHC (32.0-36.0) % 33.7 RDW (11.8-14.1) % 12.1 Plt Count (130-400) 10^3/uL 170 MPV (8.0-11.0) fL 8.4 Immature Gran % 0.8 Neutrophils % 69.7 Lymphocytes % 20.4 Monocytes % 5.8 Eosinophils % 3.2 Basophils % 0.1 Nucleated RBC % (0.0-0.3) % 0.0 Absolute Neutrophils (1.2-6.7) 10^3/uL 5.07 Absolute Lymphocytes (1.2-3.4) 10^3/uL 1.48 Absolute Monocytes (0.1-0.8) 10^3/uL 0.42 Absolute Eosinophils (0.0-0.7) 10^3/uL 0.23 Absolute Basophils (0.0-0.2) 10^3/uL 0.01 Sodium (136-145) mmol/L Potassium (3.5-5.1) mmol/L Chloride (98-107) mmol/L Carbon Dioxide (21.0-32.0) mmol/L Anion Gap (3-11) mmol/L BUN (7-18) mg/dL Creatinine (0.70-1.30) mg/dL Est GFR (CKD-EPI 2020) (mL/min/1.73m2) Glucose (74-106) mg/dL Calcium (8.5-10.1) mg/dL Magnesium (1.8-2.4) mg/dL Total Bilirubin (0.2-1.0) mg/dL AST (15-37) U/L ALT (16-63) U/L Alkaline Phosphatase (46-116) U/L Troponin I (<or=60) ng/L Total Protein (6.4-8.2) g/dL Albumin (3.4-5.0) g/dL TSH Free T4 (0.76-1.46) ng/dL COVID-19 Source SARS-CoV-2 (PCR) (Negative) Influenza Type A (PCR) (Negative) Influenza Type B (PCR) (Negative) RSV (PCR) (Negative) ECG Data Attestation: I personally reviewed and interpreted this ECG (s) as follows: Interpretation: Sinus rhythm, ventricular of 72, no STEMI. HPI General Mode of arrival: EMS . Date/Time Provider Initiated Documentation: 12/02/22 12:24 . Limitations to Documentation: no limitations . Information obtained by: patient and EMS . HPI Narrative: This is a 57-year-old gentleman with a past medical history of diabetes, GERD, migraines, hypothyroidism, hypertension, schizoaffective disorder, presenting f or what he describes as increased anxiety over the past 24 hours, no obvious triggers, and chest pain left-sided that was sharp, began about 45 minutes ago and has since resolved. Patient reports that he gets frequent similar chest pains to this, this is not as severe as what he has had in the past. Patient is rather vague and poor historian. He reports that he is a current smoker and has a chronic cough, cough might be slightly worse than baseline but denies any productive cough. He denies recent illness or trauma, fever, abdominal pain, nausea or vomiting, change in bowel or bladder function, numbness, tingling, weakness in his extremities, pain or swelling in his lower extremities. Patient reports that he had his eyes thoroughly evaluated a couple of months ago, had his prescription increased but he did forget his glasses. He does report eye pain, he reports in his right eye for the past couple of months but then later tells me that he is unsure exactly how long its been going on and reports it is in both eyes, intermittent in nature, none current. Denies blurry or double vision. Denies headache. Related Data Home Medications Medication Instructions Recorded Confirmed loratadine 10 mg capsule (Claritin 1 cap PO DAILY #90 tabs 12/16/14 12/02/22 Liqui-Gel) aspirin,buffered (calcium 325 mg PO DAILY 11/18/16 10/10/22 carbonate-magnesium) 325 mg tablet benztropine 0.5 mg tablet 0.5 mg PO BID 11/18/16 12/02/22 fluoxetine 40 mg capsule 80 mg PO DAILY 10/03/20 12/02/22 lactulose 10 gram/15 mL oral 20 g PO DIRECTED PRN 10/03/20 10/10/22 solution risperidone microspheres 25 mg/2 25 mg IM USEASDIRECTD 10/03/20 10/10/22 mL intramuscular susp,ext release (Risperdal Consta) albuterol sulfate 90 mcg/actuation 2 inh inhalation Q6H PRN shortness 12/15/20 10/10/22 breath activated powder inhaler of breath or wheezing #1 ea multivitamin 1 tab PO DAILY 01/26/21 10/10/22 vitamin A 10,000 unit capsule 10,000 unit PO DAILY 01/26/21 10/10/22 lorazepam 1 mg tablet 1 mg PO QID 07/05/21 10/10/22 chlorhexidine gluconate 0.12 % 15 ml mucous membrane BID dental 09/06/21 10/10/22 mouthwash (Peridex) problem #473 mL gabapentin 300 mg capsule 300 mg PO TID 03/05/22 12/02/22 metformin 500 mg tablet 1 tab PO BID 03/18/22 12/02/22 omeprazole 20 mg capsule,delayed 40 mg PO DAILY 03/18/22 12/02/22 release galcanezumab-gnlm 120 mg/mL 120 mg subcut QMONTH #1 mL 04/05/22 10/10/22 subcutaneous pen injector (Emgality Pen) prochlorperazine maleate 10 mg See Rx Instructions .Route 05/02/22 10/10/22 tablet .COMPLEX #20 tabs atorvastatin 40 mg tablet 80 mg PO DAILY 06/01/22 10/10/22 sumatriptan succinate 100 mg tablet See Rx Instructions PO .COMPLEX #9 06/28/22 10/10/22 tabs magnesium chloride 71.5 mg 71.5 mg PO DAILY #20 tabs 09/05/22 10/10/22 (magnesium chloride) tablet,delayed release (Nu-Mag) atenolol 50 mg tablet 75 mg PO DAILY 09/26/22 12/02/22 Previous Rx's Medication Instructions Recorded albuterol sulfate 90 mcg/actuation 2 inh inhalation Q6H PRN shortness 12/15/20 breath activated powder inhaler of breath or wheezing #1 ea chlorhexidine gluconate 0.12 % 15 ml mucous membrane BID dental 09/06/21 mouthwash (Peridex) problem #473 mL galcanezumab-gnlm 120 mg/mL 120 mg subcut QMONTH #1 mL 04/05/22 subcutaneous pen injector (Emgality Pen) prochlorperazine maleate 10 mg See Rx Instructions .Route 05/02/22 tablet .COMPLEX #20 tabs sumatriptan succinate 100 mg tablet See Rx Instructions PO .COMPLEX #9 06/28/22 tabs magnesium chloride 71.5 mg 71.5 mg PO DAILY #20 tabs 09/05/22 (magnesium chloride) tablet,delayed release (Nu-Mag) Allergies Allergy/AdvReac Type Severity Reaction Status Date / Time buspirone Allergy Verified 12/02/22 14:06 paliperidone Allergy Verified 12/02/22 14:06 paroxetine HCl [From Paxil] Allergy Verified 12/02/22 14:06 sertraline Allergy Verified 12/02/22 14:06 ziprasidone [From Geodon] Allergy Other (See Verified 12/02/22 14:06 Comment) aripiprazole [From Abilify] AdvReac Intermediate INVOLUNTARY Verified 12/02/22 14:06 MUSCLE MOVEMENTS divalproex sodium AdvReac Intermediate INVOLUNTARY Verified 12/02/22 14:06 [From Depakote] MUSCLE MOVEMENTS mirtazapine AdvReac Intermediate INVOLUNTARY Verified 12/02/22 14:06 MUSCLE MOVEMENTS risperidone AdvReac Intermediate INVOLUNTARY Verified 12/02/22 14:06 MUSCLE MOVEMENTS benztropine mesylate AdvReac elevated Verified 12/02/22 14:06 [From Cogentin] blood sugars enviornmental Allergy Mild Wheezing Uncoded 10/10/22 08:21 General Stated Complaint: Chest Pain CARLOS: 2 Review of Systems Constitutional Constitutional: Denies fatigue, Denies fever(s), Reports headache(s) and Denies weakness Eyes Eyes: Denies change in vision and Reports eye pain ENT Ears, Nose, Mouth, and Throat: Reports headache(s) and Denies neck pain Cardiovascular Cardiovascular: Reports chest pain and Denies dyspnea Respiratory Respiratory: Reports cough and Denies dyspnea Gastrointestinal Gastrointestinal: Denies abdominal pain, Denies nausea and Denies vomiting Musculoskeletal Musculoskeletal: Denies back pain and Denies neck pain Integumentary/Breasts Skin/Breast: Denies rash Neurologic Neurologic: Reports headache(s) and Denies weakness Psychiatric Psychiatric: Reports anxiety Endocrine Endocrine: Denies fatigue Hematologic/Lymphatic Hematologic/Lymphatic: Denies easy bleeding and Denies easy bruising PFSH All Active Problems Medication overuse headache (Acute) Drug-seeking behavior (Chronic ~09/20/21) Requests Ritalin from providers Broken teeth (Chronic) Anemia (Chronic) Hiatal hernia (Chronic) protonix not effective, nexium works better 02/12/18 Hypertension (Chronic) pt requests brand name Tenormin vs atenolol 04/02/18 Allergic rhinitis (Chronic) lortadine Tobacco use disorder (Chronic) started 2013 1.5 ppd, pipe 1-7/week, QUIT LATE OCT 2021 Poor dentition (Acute) Obesity (Chronic) BMI 52 Migraine (Chronic) Migraine headache without aura (Acute) Chronic headache (Acute) Chest pain (Acute) Left-sided chest wall pain (Acute) Depression (Acute 10/02/14) Diabetes mellitus type 2 in obese (Acute 09/09/14) GERD (gastroesophageal reflux disease) (Acute 09/07/14) Hypercholesterolemia (Chronic 09/07/14) pt insists on lipitor 80 mg due to family hx Hypothyroidism (acquired) (Acute 09/07/14) Schizoaffective disorder (Acute 09/07/14) Rebekah Mariscal [facility] 09/2014- [facility] inpatient Medical History Anxiety Dental caries Hyperlipidemia Mitral valve prolapse Peripheral neuropathy Trigeminal neuralgia Surgical History No significant past surgical history Family History Father Heart disease [place] Social History Smoking/Tobacco Use Status: Current every day Tobacco Type: cigarettes, pipe Years: 8 Other: States equivalent to 1.5 packs cigarettes and cigars Smoking risk assessment performed?: Yes Alcohol Intake: never Drug use: Never Substance use type: does not use Adopted: No Caregiver/Support person: No Foster care: No Household members: none Housing: apartment Number of Children: 2 number of grandchildren: 1 Communication Needs: Corrective Lenses Education Level: college Do you need help understanding health information?: Always current occupation: Unemployed/Leave of absence Sexually active: No Do you think of yourself as: Decline to provide Current gender identity: male What type of physical activity do you participate in: other Details: weight lifting Frequency: 3-4 times per week Magalie/Roman Catholic: Shinto Seatbelt use: always 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 Working smoke detector in home: Yes Fire extinguisher in home: Yes Carbon monox detector in home: Yes Do you feel safe at home: Yes (anxiety) Do you feel safe in your relationship?: Yes Exam Const General: cooperative, healthy appearing, comfortable and no acute distress Orientation: alert, awake and oriented x3 HENMT Head: normal to inspection, normocephalic and atraumatic Face and sinus: normal facial exam Mouth: moist mucous membranes Eyes General: appearance normal, both eyes and all related structures Alignment and Position: alignment normal Periorbital: periorbital findings normal Eyelids: eyelids normal Conjunctivae: conjunctivae normal Sclera: sclerae normal Cornea: corneas normal Pupils: PERRL EOM: EOM intact bilaterally Neck Neck: normal visual inspection, full ROM, no meningeal signs, trachea midline and supple Resp Effort & Inspection: normal respiratory effort and able to speak in complete sentences Auscultation: clear to auscultation bilaterally Cardio Rate: regular rate Rhythm: regular rhythm GI Palpation: soft, not firm, no guarding and nontender Back/Spine/Pelvis Back: No back tenderness Skin General skin exam: no rashes or lesions noted Neuro General: patient alert, patient awake, patient oriented x3, moves all extremities and no focal motor deficits Cranial Nerves: CN's II-XI intact bilaterally Cognition: normal cognition Speech: speech normal Gait: normal gait Motor: muscle tone normal throughout Sensory Exam: no sensory deficits noted Extrem General: normal to inspection, full ROM, capillary refill normal, no pedal edema and no calf tenderness Psych Appearance: grossly normal Mental Status: mental status grossly normal Course Vital Signs Vital signs: Vital Signs Temperature 36.7 C 12/02/22 12:12 Pulse 79 12/02/22 12:12 Respiratory Rate 18 12/02/22 12:12 Blood Pressure 170/74 H 12/02/22 12:12 Pulse Oximetry 97 12/02/22 12:12 Temperature 36.7 C 12/02/22 12:12 Temperature Source Temporal Artery Scan 12/02/22 12:12 Pulse 79 12/02/22 12:12 Respiratory Rate 12 12/02/22 12:38 Respiratory Effort 12/02/22 12:38 Respiratory Depth Normal 12/02/22 12:38 Respiratory Pattern Normal 12/02/22 12:38 Blood Pressure 170/74 H 12/02/22 12:12 Blood Pressure Position Sitting 12/02/22 12:12 Pulse Oximetry 97 12/02/22 12:12 Oxygen Delivery Method Room Air 12/02/22 12:12 Oxygen Flow Rate 0 12/02/22 12:12 Pain Level 5 12/02/22 12:38
[2022-12-02 13:29] LABS: COVID-19 PCR Negative (Negative); Influenza A PCR Negative (Negative); Influenza B PCR Negative (Negative); RSV PCR Negative (Negative)
[2022-12-02 13:36] LABS: Source Nasopharynx
[2022-12-02 14:10] LABS: Abs Immature Grans 0.06 10^3/uL (0.0-0.06); Absolute Basophil Count 0.01 10^3/uL (0.0-0.2); Absolute Eosinophil Count 0.23 10^3/uL (0.0-0.7); Absolute Lymphocyte Count 1.48 10^3/uL (1.2-3.4); Absolute Monocyte Count 0.42 10^3/uL (0.1-0.8); Absolute Neutrophil Count 5.07 10^3/uL (1.2-6.7); Basophils % 0.1; Eosinophils % 3.2; HCT 35.3 % (40.0-50.0); HGB 11.9 g/dL (13.5-17.5); Immature Grans % 0.8; Lymphocytes % 20.4; MCH 30.4 pg (27.0-33.0); MCHC 33.7 % (32.0-36.0); MCV 90 fL (80-95); MPV 8.4 fL (8.0-11.0); Monocytes % 5.8; Neutrophils % 69.7; Platelet Count 170 10^3/uL (130-400); RBC 3.92 10^6/uL (4.36-5.78); RDW 12.1 % (11.8-14.1); RDW-SD 39.7 fL; WBC 7.27 10^3/uL (4.4-10.8)
[2022-12-02 14:33] LABS: ALT 40 U/L (16-63); AST 21 U/L (15-37); Albumin 3.6 g/dL (3.4-5.0); Alkaline Phosphatase 104 U/L (46-116); BUN 5 mg/dL (7-18); Bilirubin, Total 0.5 mg/dL (0.2-1.0); CREATININE 1.1 mg/dL (0.70-1.30); Calcium 8.9 mg/dL (8.5-10.1); Chloride 96 mmol/L (98-107); Glucose 222 mg/dL (74-106); Magnesium 1.6 mg/dL (1.8-2.4); Potassium 4.5 mmol/L (3.5-5.1); Sodium 132 mmol/L (136-145); TSH (W/Ref FT4) 5.39 uIU/mL (0.36-3.74); Total Protein 8.4 g/dL (6.4-8.2); Troponin I < 50 ng/L (<or=60)
[2022-12-02 15:00] LABS: FREE T4 1.14 ng/dL (0.76-1.46)
[2022-12-02] MEDS: MAGNESIUM SULFATE 1 GM/100 ML BAG IVPB (15:42)
--- NOTE | 2022-12-02 15:57 | W.EDPROG ---
Date of service: 12/02/22 Time of Service: 15:57 Medical Decision Making Care assumed from provider (JORDANA Leon) Please see their initial HPI, PE, and documentation. Discussed patient details and case and pending workup and disposition. Patient is hemodynamically stable, and alert and oriented. The time of signout awaiting second troponin. Second troponin within normal limits, patient reevaluation he reports he is feels much better and would like to be discharged home. His magnesium is done infusing. Patient discharged with RCT. This text was generated using Acronisation system, please disregard any oddities of phrase or misspellings. Medical Records Medical records reviewed: Yes I reviewed the patient's medical records. Lab Data Lab results reviewed: Yes I reviewed the patient's lab results. Labs: Laboratory Tests Range/Units 12/02/22 12/02/22 12/02/22 12:39 12:45 14:00 WBC (4.4-10.8) 10^3/uL RBC (4.36-5.78) 10^6/uL Hgb (13.5-17.5) g/dL Hct (40.0-50.0) % MCV (80-95) fL MCH (27.0-33.0) pg MCHC (32.0-36.0) % RDW (11.8-14.1) % Plt Count (130-400) 10^3/uL MPV (8.0-11.0) fL Immature Gran % Neutrophils % Lymphocytes % Monocytes % Eosinophils % Basophils % Nucleated RBC % (0.0-0.3) % Absolute Neutrophils (1.2-6.7) 10^3/uL Absolute Lymphocytes (1.2-3.4) 10^3/uL Absolute Monocytes (0.1-0.8) 10^3/uL Absolute Eosinophils (0.0-0.7) 10^3/uL Absolute Basophils (0.0-0.2) 10^3/uL Sodium (136-145) mmol/L 132 L Potassium (3.5-5.1) mmol/L 4.5 Chloride (98-107) mmol/L 96 L Carbon Dioxide (21.0-32.0) mmol/L 29.0 Anion Gap (3-11) mmol/L 7.0 BUN (7-18) mg/dL 5 L Creatinine (0.70-1.30) mg/dL 1.1 Est GFR (CKD-EPI 2020) (mL/min/1.73m2) 78.30 Glucose (74-106) mg/dL 222 H Calcium (8.5-10.1) mg/dL 8.9 Magnesium (1.8-2.4) mg/dL 1.6 L Total Bilirubin (0.2-1.0) mg/dL 0.5 AST (15-37) U/L 21 ALT (16-63) U/L 40 Alkaline Phosphatase (46-116) U/L 104 Troponin I (<or=60) ng/L < 50 Total Protein (6.4-8.2) g/dL 8.4 H Albumin (3.4-5.0) g/dL 3.6 TSH Cancelled 5.39 H Free T4 (0.76-1.46) ng/dL 1.14 COVID-19 Source Nasopharynx SARS-CoV-2 (PCR) (Negative) Negative Influenza Type A (PCR) (Negative) Negative Influenza Type B (PCR) (Negative) Negative RSV (PCR) (Negative) Negative Range/Units 12/02/22 12/02/22 14:00 15:51 WBC (4.4-10.8) 10^3/uL 7.27 RBC (4.36-5.78) 10^6/uL 3.92 L Hgb (13.5-17.5) g/dL 11.9 L Hct (40.0-50.0) % 35.3 L MCV (80-95) fL 90 MCH (27.0-33.0) pg 30.4 MCHC (32.0-36.0) % 33.7 RDW (11.8-14.1) % 12.1 Plt Count (130-400) 10^3/uL 170 MPV (8.0-11.0) fL 8.4 Immature Gran % 0.8 Neutrophils % 69.7 Lymphocytes % 20.4 Monocytes % 5.8 Eosinophils % 3.2 Basophils % 0.1 Nucleated RBC % (0.0-0.3) % 0.0 Absolute Neutrophils (1.2-6.7) 10^3/uL 5.07 Absolute Lymphocytes (1.2-3.4) 10^3/uL 1.48 Absolute Monocytes (0.1-0.8) 10^3/uL 0.42 Absolute Eosinophils (0.0-0.7) 10^3/uL 0.23 Absolute Basophils (0.0-0.2) 10^3/uL 0.01 Sodium (136-145) mmol/L Potassium (3.5-5.1) mmol/L Chloride (98-107) mmol/L Carbon Dioxide (21.0-32.0) mmol/L Anion Gap (3-11) mmol/L BUN (7-18) mg/dL Creatinine (0.70-1.30) mg/dL Est GFR (CKD-EPI 2020) (mL/min/1.73m2) Glucose (74-106) mg/dL Calcium (8.5-10.1) mg/dL Magnesium (1.8-2.4) mg/dL Total Bilirubin (0.2-1.0) mg/dL AST (15-37) U/L ALT (16-63) U/L Alkaline Phosphatase (46-116) U/L Troponin I (<or=60) ng/L < 50 Total Protein (6.4-8.2) g/dL Albumin (3.4-5.0) g/dL TSH Free T4 (0.76-1.46) ng/dL COVID-19 Source SARS-CoV-2 (PCR) (Negative) Influenza Type A (PCR) (Negative) Influenza Type B (PCR) (Negative) RSV (PCR) (Negative) Sign Out Sign Out Data: Sign Out Comment: Presented for left-sided chest pain that began 45 minutes ago, feels similar to his chronic pain, resolved at the time he came to the ER. Already took aspirin. Also reports increased anxiety over the past 24 hours, 1 mg IV Ativan given. 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 Visual acuities and intraocular pressure were obtained here in the ER. Magnesium was low, replenished with 1 g IV. Chest x-ray reveals bilateral bronchial-central interstitial edema or inflammation. Patient reveals no evidence of hypoxemia. Lastly, awaiting a delta troponin. Last updated by Tyrone Cancino PA at 12/02/22 15:25 Discharge Plan Disposition Patient Disposition: Home Condition: Stable Discharge Details Clinical Impression: Chest pain, Anxiety Primary Care Provider: Unknown,Unknown ED Provider: Fang Eubanks Home Meds and New Rx's Prescriptions: Continued atorvastatin 40 mg tablet 80 mg PO DAILY chlorhexidine gluconate [Peridex] 0.12 % mouthwash 15 ml mucous membrane BID Qty: 473 5RF Rx Instructions: rinse and spit twice a day Emgality Pen 120 mg/mL pen injector 120 mg subcut QMONTH Qty: 1 11RF sumatriptan succinate 100 mg tablet See Rx Instructions PO .COMPLEX Qty: 9 5RF Rx Instructions: take 1 tab at onset of headache; if no relief, may repeat 1 tab after at least 2 hrs; max = 2 tabs/24 hrs PO Claritin Liqui-Gel 10 MG capsule 1 cap PO DAILY Qty: 90 prochlorperazine maleate 10 mg tablet See Rx Instructions .ROUTE .COMPLEX Qty: 20 5RF Dose Instruction: TAKE 1 TABLET BY MOUTH EVERY 8 HOURS NEEDED FOR NAUSEA AND VOMITING, HEADACHE Rx Instructions: TAKE 1 TABLET BY MOUTH EVERY 8 HOURS NEEDED FOR NAUSEA AND VOMITING, HEADACHE multivitamin Tablet 1 tab PO DAILY vitamin A 10,000 unit Capsule 10,000 unit PO DAILY gabapentin 300 mg capsule 300 mg PO TID metformin 500 mg tablet 1 tab PO BID omeprazole 20 mg capsule,delayed release(DR/EC) 40 mg PO DAILY benztropine 0.5 MG tablet 0.5 mg PO BID aspirin,buffd-calcium carb-mag 325 MG tablet 325 mg PO DAILY fluoxetine 40 mg capsule 80 mg PO DAILY Label Comments: TK 2 CS PO QD Risperdal Consta 25 mg/2 mL suspension,extended rel recon 25 mg IM USEASDIRECTD Label Comments: INJECT ONE SYRINGE INTRAMUSCULARLY ONCE EVERY TWO WEEKS Rx Instructions: every 2 weeks lactulose 10 gram/15 mL solution 20 g PO DIRECTED PRN Label Comments: TAKE ONE TO TWO TABLESPOONS BY MOUTH NEEDED WHEN 3 DAYS PASS WITHOUT BOWEL MOVEMENT lorazepam 1 mg tablet 1 mg PO QID Label Comments: TK 1 T PO QAM THEN 2 TS HS Rx Instructions: 01/03/21 1 mg in am and 2 mg at hs Reports 1 mg in am, 1 mg in afternoon, 2 mg at hs albuterol sulfate 90 mcg/actuation aerosol powdr breath activated 2 inh IH Q6H PRN (Reason: shortness of breath or wheezing) Qty: 1 0RF Nu-Mag 71.5 mg tablet,delayed release (DR/EC) 71.5 mg PO DAILY Qty: 20 0RF atenolol 50 mg tablet 75 mg PO DAILY Rx Instructions: To take with 25mg dose for TDD 75mg daily Discharge Instructions Instructions: Chest Pain (ED), Anxiety (ED) Additional Instructions: Follow up with primary care provider in 3-5 days. Return to ED sooner if any worsening or concerns. Increase oral fluids. Please continue take your previously prescribed medications. Discharge Data Discharge Date/Time-TO BE ENTERED AT DEPARTURE: 12/02/22 17:45
[2022-12-02 16:05] LABS: Troponin I < 50 ng/L (<or=60)
== END 2022-12-02 17:45 | disposition home or self-care (01) ==
PROVIDERS: Physician Assistant; Emergency Provider Registered Nurse Emergency
DX: R07.9 Chest pain, unspecified (principal); F41.9 Anxiety disorder, unspecified; I10 Essential (primary) hypertension; E11.9 Type 2 diabetes mellitus without complications; E03.9 Hypothyroidism, unspecified; F25.9 Schizoaffective disorder, unspecified; D64.9 Anemia, unspecified; Z79.84 Long term (current) use of oral hypoglycemic drugs; Z20.822 Contact with and (suspected) exposure to COVID-19
CPT/HCPCS: 80053; 87637; 93005; 96365; 96375; 99284; 71046; 83735; 84439; 84443; 84484; 85025; 93010; 99285; J3475

== ENCOUNTER 2022-12-18 23:43 | Emergency (ER) | payer MEDICAID, SELFPAY ==
[2022-12-18 23:30] VITALS: BP 149/79; PULSE 80; RESP 22; TEMP 36.8; O2SAT 96
--- NOTE | 2022-12-18 23:45 | DI.CT_ITS ---
Exam(s) CT ABDOMEN PELVIS W EXAM: CT ABDOMEN PELVIS W CLINICAL HISTORY: lower abdominal pain, nausea. TECHNIQUE: Imaging Protocol: Axial computed tomography images with coronal and sagittal reformatted images were created and reviewed CONTRAST MATERIAL: Intravenous: Omnipaque-350 100cc Oral: None COMPARISON: CT CT CHEST PE CTA from 05/17/2022 FINDINGS: VISUALIZED LUNG BASES: No nodules nor pleural effusions evident. ABDOMEN: There is no ascites. LIVER: There are no focal hepatic lesions evident. No dilated intrahepatic ducts. GALLBLADDER/BILIARY: Subtle density in the gallbladder lumen, either sludge or possibly subtle noncal cified gallstones. Can be further studied with ultrasound. Gallbladder wall is not edematous. CBD is not dilated. PANCREAS: No evidence of pancreatic mass nor dilatation of the pancreatic duct. SPLEEN: Spleen is not enlarged. No obvious intrasplenic lesions. Splenic and portal veins are paten t. ADRENALS: There are no significant adrenal masses. KIDNEYS:No cysts evident. No solid renal masses. No calculi nor hydronephrosis.. ABDOMINAL AORTA: Abdominal aorta is not enlarged. LYMPH NODES:There is no retroperitoneal nor paraaortic adenopathy. ABDOMINAL WALL: There is a fat only containing anterior abdominal wall umbilical hernia. No bowel lo ops therein. GI: There is no evidence of bowel obstruction, free air, nor abscess. PELVIS: GI: No evidence of appendicitis.Redundant sigmoid. No significant diverticular disease. LYMPH NODES: There is no intrapelvic nor inguinal adenopathy. REPRODUCTIVE: Prostate not enlarged. Seminal vesicles unremarkable. URINARY BLADDER: Mildly uniformly thickened bladder wall. OSSEOUS: No fractures and no significant osseous lesions. IMPRESSION: 1. Subtle abnormal densities in the gallbladder lumen, possibly noncalcified gallstones. Recommend f ollow-up ultrasound. The gallbladder wall does not appear edematous. CBD not dilated. 2. Fat only containing umbilical hernia. No bowel obstruction. First read by [facility]. RADIATION DOSE DELIVERED: 2,066.21mGy.cm Total DLP DATA REPOSITORY: All CT scans at this facility are submitted to the National Radiology Data Registry (NRDR) Dose Index Registry (DIR) with the [employer] (ACR). RADIATION OPTIMIZATION: All CT scans at this facility use at least one of these dose optimization te chniques: automated exposure control; mA and/or kV adjustment per patient size (includes targeted exa ms where dose is matched to clinical indication); or iterative reconstruction.
--- NOTE | 2022-12-18 23:48 | ED.GENADUL_ITS ---
Discharge Plan Disposition Patient Disposition: Home Condition: Stable Discharge Details Clinical Impression: Abdominal pain Primary Care Provider: Unknown,Unknown ED Provider: Doc Ramos Home Meds and New Rx's Prescriptions: Continued atorvastatin 40 mg tablet 80 mg PO DAILY chlorhexidine gluconate [Peridex] 0.12 % mouthwash 15 ml mucous membrane BID Qty: 473 5RF Rx Instructions: rinse and spit twice a day Emgality Pen 120 mg/mL pen injector 120 mg subcut QMONTH Qty: 1 11RF sumatriptan succinate 100 mg tablet See Rx Instructions PO .COMPLEX Qty: 9 5RF Rx Instructions: take 1 tab at onset of headache; if no relief, may repeat 1 tab after at least 2 hrs; max = 2 tabs/24 hrs PO Claritin Liqui-Gel 10 MG capsule 1 cap PO DAILY Qty: 90 prochlorperazine maleate 10 mg tablet See Rx Instructions .ROUTE .COMPLEX Qty: 20 5RF Dose Instruction: TAKE 1 TABLET BY MOUTH EVERY 8 HOURS NEEDED FOR NAUSEA AND VOMITING, HEADACHE Rx Instructions: TAKE 1 TABLET BY MOUTH EVERY 8 HOURS NEEDED FOR NAUSEA AND VOMITING, HEADACHE multivitamin Tablet 1 tab PO DAILY vitamin A 10,000 unit Capsule 10,000 unit PO DAILY gabapentin 300 mg capsule 300 mg PO TID metformin 500 mg tablet 1 tab PO BID omeprazole 20 mg capsule,delayed release(DR/EC) 40 mg PO DAILY benztropine 0.5 MG tablet 0.5 mg PO BID aspirin,buffd-calcium carb-mag 325 MG tablet 325 mg PO DAILY fluoxetine 40 mg capsule 80 mg PO DAILY Patient Comments: TK 2 CS PO QD Risperdal Consta 25 mg/2 mL suspension,extended rel recon 25 mg IM USEASDIRECTD Patient Comments: INJECT ONE SYRINGE INTRAMUSCULARLY ONCE EVERY TWO WEEKS Rx Instructions: every 2 weeks lactulose 10 gram/15 mL solution 20 g PO DIRECTED PRN Patient Comments: TAKE ONE TO TWO TABLESPOONS BY MOUTH NEEDED WHEN 3 DAYS PASS WITHOUT BOWEL MOVEMENT lorazepam 1 mg tablet 1 mg PO QID Patient Comments: TK 1 T PO QAM THEN 2 TS HS Rx Instructions: 01/03/21 1 mg in am and 2 mg at hs Reports 1 mg in am, 1 mg in afternoon, 2 mg at hs albuterol sulfate 90 mcg/actuation aerosol powdr breath activated 2 inh IH Q6H PRN (Reason: shortness of breath or wheezing) Qty: 1 0RF Nu-Mag 71.5 mg tablet,delayed release (DR/EC) 71.5 mg PO DAILY Qty: 20 0RF atenolol 50 mg tablet 75 mg PO DAILY Rx Instructions: To take with 25mg dose for TDD 75mg daily Discharge Instructions Instructions: Abdominal Pain (ED) Additional Instructions: follow up with your primary care provider within one week if you feel more ill, have severe worsening pain or persistent vomiting return to the emergency department Medical Decision Making 57yo male with a history of diabetes, hypothyroidism, schizoaffective disorder, hypertension, GERD, comes in with intermittent lower abdominal pain and nausea starting this morning. He denies having pain like this before and denies prior abdominal surgeries. He denies chest pain, dyspnea?vomiting, fevers, chills. He has had nausea. He denies dysuria, hasn't had a bowel movement in 2 days but states he normall goes 2-3 days without a BM. He arrives stable speaking clearly in no distress. He has a soft abdomen, with tenderness to the lower abdomen both right and left, no guarding, no upper abdominal pain. No testicle pain or swelling. Given location of pain will proceed with cbc, cmp, lipase and ct abdomen/pelvis to evaluate primarily for diverticulitis. No vomiting so doubt sbo and no severe pain or pain out of proportion to exam to suggest mesenteric ischemia labs show mild elevation of lfts which has occurred intermittently in the past on review of labs. CT shows no acute findings, no evidence of cholecystitis. Pt now has no pain and no tenderness on exam, unclear etiology for symptoms but given resolution of pain and reassuring workup feel he is stable for d/c, advised to f/u with pcp, return precautions given Differential Diagnosis Differential Diagnosis: diverticulitis, constipation, pancreatitis Medical Records Medical records reviewed: Yes I reviewed the patient's medical records. Imaging Data Radiologic Study: Attestation: I personally reviewed and interpreted this imaging study as follows: Imaging: CT Scan Radiologist's impression: IMPRESSION: 1. No acute bowel pathology demonstrated. 2. Gallbladder partially decompressed. Suspected noncalcified gallstones versus gallbladder sludge. No biliary dilatation. Lab Data Lab results reviewed: Yes I reviewed the patient's lab results. HPI General Mode of arrival: EMS . Date/Time Provider Initiated Documentation: 12/18/22 23:46 . Limitations to Documentation: no limitations . Information obtained by: patient . History of Present Illness 57 year old M presents to the emergency department with the chief complaint of abdominal pain, described as moderate, Quality is described as aching, and is localized to the abdomen. Patient started experiencing this day(s) (1) and it has been intermittent. No relieving factors improve symptom(s), No exacerbating factors reported . Patient notes other (nausea without vomiting); denies chest pain, fever/chills and shortness of breath. Patient did receive the following treatments prior to arrival, none Related Data Home Medications Medication Instructions Recorded Confirmed loratadine 10 mg capsule (Claritin 1 cap PO DAILY #90 tabs 12/16/14 12/02/22 Liqui-Gel) aspirin,buffered (calcium 325 mg PO DAILY 11/18/16 10/10/22 carbonate-magnesium) 325 mg tablet benztropine 0.5 mg tablet 0.5 mg PO BID 11/18/16 12/02/22 fluoxetine 40 mg capsule 80 mg PO DAILY 10/03/20 12/02/22 lactulose 10 gram/15 mL oral 20 g PO DIRECTED PRN 10/03/20 10/10/22 solution risperidone microspheres 25 mg/2 25 mg IM USEASDIRECTD 10/03/20 10/10/22 mL intramuscular susp,ext release (Risperdal Consta) albuterol sulfate 90 mcg/actuation 2 inh inhalation Q6H PRN shortness 12/15/20 10/10/22 breath activated powder inhaler of breath or wheezing #1 ea multivitamin 1 tab PO DAILY 01/26/21 10/10/22 vitamin A 3,000 mcg (10,000 unit) 10,000 unit PO DAILY 01/26/21 10/10/22 capsule lorazepam 1 mg tablet 1 mg PO QID 07/05/21 10/10/22 chlorhexidine gluconate 0.12 % 15 ml mucous membrane BID dental 09/06/21 10/10/22 mouthwash (Peridex) problem #473 mL gabapentin 300 mg capsule 300 mg PO TID 03/05/22 12/02/22 metformin 500 mg tablet 1 tab PO BID 03/18/22 12/02/22 omeprazole 20 mg capsule,delayed 40 mg PO DAILY 03/18/22 12/02/22 release galcanezumab-gnlm 120 mg/mL 120 mg subcut QMONTH #1 mL 04/05/22 10/10/22 subcutaneous pen injector (Emgality Pen) prochlorperazine maleate 10 mg See Rx Instructions .Route 05/02/22 10/10/22 tablet .COMPLEX #20 tabs atorvastatin 40 mg tablet 80 mg PO DAILY 06/01/22 10/10/22 sumatriptan succinate 100 mg tablet See Rx Instructions PO .COMPLEX #9 06/28/22 10/10/22 tabs magnesium chloride 71.5 mg 71.5 mg PO DAILY #20 tabs 09/05/22 10/10/22 (magnesium chloride) tablet,delayed release (Nu-Mag) atenolol 50 mg tablet 75 mg PO DAILY 09/26/22 12/02/22 Previous Rx's Medication Instructions Recorded albuterol sulfate 90 mcg/actuation 2 inh inhalation Q6H PRN shortness 12/15/20 breath activated powder inhaler of breath or wheezing #1 ea chlorhexidine gluconate 0.12 % 15 ml mucous membrane BID dental 09/06/21 mouthwash (Peridex) problem #473 mL galcanezumab-gnlm 120 mg/mL 120 mg subcut QMONTH #1 mL 04/05/22 subcutaneous pen injector (Emgality Pen) prochlorperazine maleate 10 mg See Rx Instructions .Route 05/02/22 tablet .COMPLEX #20 tabs sumatriptan succinate 100 mg tablet See Rx Instructions PO .COMPLEX #9 06/28/22 tabs magnesium chloride 71.5 mg 71.5 mg PO DAILY #20 tabs 09/05/22 (magnesium chloride) tablet,delayed release (Nu-Mag) Allergies Allergy/AdvReac Type Severity Reaction Status Date / Time buspirone Allergy Verified 12/02/22 14:06 paliperidone Allergy Verified 12/02/22 14:06 paroxetine HCl [From Paxil] Allergy Verified 12/02/22 14:06 sertraline Allergy Verified 12/02/22 14:06 ziprasidone [From Geodon] Allergy Other (See Verified 12/02/22 14:06 Comment) aripiprazole [From Abilify] AdvReac Intermediate INVOLUNTARY Verified 12/02/22 14:06 MUSCLE MOVEMENTS divalproex sodium AdvReac Intermediate INVOLUNTARY Verified 12/02/22 14:06 [From Depakote] MUSCLE MOVEMENTS mirtazapine AdvReac Intermediate INVOLUNTARY Verified 12/02/22 14:06 MUSCLE MOVEMENTS risperidone AdvReac Intermediate INVOLUNTARY Verified 12/02/22 14:06 MUSCLE MOVEMENTS benztropine mesylate AdvReac elevated Verified 12/02/22 14:06 [From Cogentin] blood sugars enviornmental Allergy Mild Wheezing Uncoded 10/10/22 08:21 General Stated Complaint: Abd Prob CARLOS: 3 Review of Systems All systems reviewed & are unremarkable except as noted in HPI and below Constitutional Constitutional: Denies chills, Denies fever(s) and Denies weakness Cardiovascular Cardiovascular: Denies chest pain and Denies dyspnea Respiratory Respiratory: Denies cough and Denies dyspnea Gastrointestinal Gastrointestinal: Denies vomiting Genitourinary Genitourinary: Denies dysuria Musculoskeletal Musculoskeletal: Denies joint swelling Integumentary/Breasts Skin/Breast: Denies rash Neurologic Neurologic: Denies weakness PFSH All Active Problems (Updated 12/19/22 @ 02:01 by Doc Ramso MD) Anxiety (Chronic) Abdominal pain (Acute) Medication overuse headache (Acute) Drug-seeking behavior (Chronic ~09/20/21) Requests Ritalin from providers Broken teeth (Chronic) Anemia (Chronic) Hiatal hernia (Chronic) protonix not effective, nexium works better 02/12/18 Hypertension (Chronic) pt requests brand name Tenormin vs atenolol 04/02/18 Allergic rhinitis (Chronic) lortadine Tobacco use disorder (Chronic) started 2013 1.5 ppd, pipe 1-7/week, QUIT LATE OCT 2021 Poor dentition (Acute) Obesity (Chronic) BMI 52 Migraine (Chronic) Migraine headache without aura (Acute) Chronic headache (Acute) Chest pain (Acute) Left-sided chest wall pain (Acute) Depression (Acute 10/02/14) Diabetes mellitus type 2 in obese (Acute 09/09/14) GERD (gastroesophageal reflux disease) (Acute 09/07/14) Hypercholesterolemia (Chronic 09/07/14) pt insists on lipitor 80 mg due to family hx Hypothyroidism (acquired) (Acute 09/07/14) Schizoaffective disorder (Acute 09/07/14) Rebekah Mariscal [facility] 09/2014- [facility] inpatient Medical History Anxiety Dental caries Hyperlipidemia Mitral valve prolapse Peripheral neuropathy Trigeminal neuralgia Surgical History No significant past surgical history Family History Father Heart disease PR Social History Smoking/Tobacco Use Status: Current every day Tobacco Type: cigarettes, pipe Years: 8 Other: States equivalent to 1.5 packs cigarettes and cigars Smoking risk assessment performed?: Yes Alcohol Intake: never Drug use: Never Substance use type: does not use Adopted: No Caregiver/Support person: No Foster care: No Household members: none Housing: apartment Number of Children: 2 number of grandchildren: 1 Communication Needs: Corrective Lenses Education Level: college Do you need help understanding health information?: Always current occupation: Unemployed/Leave of absence Sexually active: No Do you think of yourself as: Decline to provide Current gender identity: male What type of physical activity do you participate in: other Details: weight lifting Frequency: 3-4 times per week Magalie/Orthodoxy: Pentecostal Seatbelt use: always Drive intox or ride w/intox escort car driver: No Working smoke detector in home: Yes Fire extinguisher in home: Yes Carbon monox detector in home: Yes Do you feel safe at home: Yes (anxiety) Do you feel safe in your relationship?: Yes Exam Const General: no acute distress Orientation: alert HENMT Head: normal to inspection Ears: external ears normal General nose exam: external nose normal Mouth: moist mucous membranes Eyes General: appearance normal, both eyes and all related structures Neck Neck: normal visual inspection Resp Effort & Inspection: normal respiratory effort and able to speak in complete sentences Auscultation: clear to auscultation bilaterally Cardio Rate: regular rate Heart Sounds: no murmurs GI Palpation: soft and tender Skin General skin exam: no rashes or lesions noted Neuro General: patient alert and patient oriented x3 Extrem General: normal to inspection Psych Mental Status: mental status grossly normal Course Vital Signs Vital signs: Vital Signs Temperature 36.8 C 12/18/22 23:30 Pulse 80 12/18/22 23:30 Respiratory Rate 22 12/18/22 23:30 Blood Pressure 149/79 H 12/18/22 23:30 Pulse Oximetry 96 12/18/22 23:30 Temperature 36.8 C 12/18/22 23:30 Temperature Source Oral 12/18/22 23:30 Pulse 80 12/18/22 23:30 Respiratory Rate 22 12/18/22 23:30 Blood Pressure 149/79 H 12/18/22 23:30 Pulse Oximetry 96 12/18/22 23:30 Oxygen Delivery Method Room Air 12/18/22 23:30 Oxygen Flow Rate 0 12/18/22 23:30
[2022-12-19 00:18] LABS: Abs Immature Grans 0.03 10^3/uL (0.0-0.06); Absolute Basophil Count 0.02 10^3/uL (0.0-0.2); Absolute Eosinophil Count 0.21 10^3/uL (0.0-0.7); Absolute Monocyte Count 0.47 10^3/uL (0.1-0.8); Absolute Neutrophil Count 5.53 10^3/uL (1.2-6.7); Basophils % 0.3; Eosinophils % 2.8; HCT 35.3 % (40.0-50.0); HGB 11.7 g/dL (13.5-17.5); Immature Grans % 0.4; Lymphocytes % 17.2; MCH 29.5 pg (27.0-33.0); MCHC 33.1 % (32.0-36.0); MCV 89 fL (80-95); MPV 8.7 fL (8.0-11.0); Monocytes % 6.2; Neutrophils % 73.1; Platelet Count 172 10^3/uL (130-400); RBC 3.96 10^6/uL (4.36-5.78); RDW 12.3 % (11.8-14.1); RDW-SD 40.1 fL; WBC 7.56 10^3/uL (4.4-10.8)
[2022-12-19] MEDS: Ondansetron 4 MG/2 ML VIAL IVP (00:25)
[2022-12-19] MEDS: Acetaminophen 500 MG TAB 1000 MG PO (00:26)
[2022-12-19 00:33] LABS: ALT 214 U/L (16-63); AST 138 U/L (15-37); Albumin 3.2 g/dL (3.4-5.0); Alkaline Phosphatase 309 U/L (46-116); Anion Gap 6.8 mmol/L (3-11); BUN 10 mg/dL (7-18); Bilirubin, Total 1.4 mg/dL (0.2-1.0); CO2 29.2 mmol/L (21.0-32.0); CREATININE 0.8 mg/dL (0.70-1.30); Calcium 8.7 mg/dL (8.5-10.1); Chloride 97 mmol/L (98-107); Estimated GFR 103.22 (mL/min/1.73m2); Glucose 195 mg/dL (74-106); Lipase 42 U/L (16-77); Magnesium 1.8 mg/dL (1.8-2.4); Sodium 133 mmol/L (136-145); Total Protein 7.7 g/dL (6.4-8.2)
[2022-12-19] MEDS: Normal Saline Flush 10 ML SYR IVP (00:57)
[2022-12-19] MEDS: Normal Saline - Diluent 50 ML VIAL IJ (00:57)
--- NOTE | 2022-12-19 01:42 | DI.VRAD_ITS ---
PROCEDURE INFORMATION: Exam: CT Abdomen And Pelvis With Contrast Exam date and time: 12/19/2022 12:46 AM Age: 57 years old Clinical indication: Abdominal pain; Localized; Patient HX: Nausea, lower abd pain TECHNIQUE: Imaging protocol: Computed tomography of the abdomen and pelvis with contrast. Radiation optimization: All CT scans at this facility use at least one of these dose optimization techniques: automated exposure control; mA and/or kV adjustment per patient size (includes targeted exams where dose is matched to clinical indication); or iterative reconstruction. Contrast material: OMNIPAQUE 350; Contrast volume: 100 ml; Contrast route: INTRAVENOUS (IV); COMPARISON: CT CHEST PE CTA 05/17/2022 1:34 PM FINDINGS: Lungs: Lung bases clear. Liver: Normal appearing liver. Gallbladder and bile ducts: Subtle heterogeneous density within the gallbladder lumen, probably noncalcified stones or sludge. Gallbladder partially decompressed. No biliary dilatation. Pancreas: Mild fatty atrophy of the pancreas. Spleen: Normal appearing spleen. Adrenal glands: Normal appearing adrenal glands. Kidneys and ureters: Normal appearing kidneys. No hydronephrosis. Stomach and bowel: No oral contrast. Stomach partially decompressed. No small bowel dilatation to suggest obstruction. Normal-appearing colon. No evidence of diverticulitis or colitis. Appendix: Normal appendix, best demonstrated by the coronal series. Intraperitoneal space: No gross ascites or free air. Vasculature: Normal caliber abdominal aorta. Lymph nodes: No pathologically enlarged mesenteric, retroperitoneal, or pelvic sidewall lymph nodes. Urinary bladder: Normal appearing urinary bladder. Reproductive: Normal-appearing prostate gland and seminal vesicles. Bones/joints: No acute fracture seen among the bones of the abdomen or pelvis. Spinal degenerative change with anterior osteophytes and facet arthrosis at several levels. Soft tissues: Small fat containing ventral hernia at the umbilicus. Small fat containing left inguinal region hernia. IMPRESSION: 1. No acute bowel pathology demonstrated. 2. Gallbladder partially decompressed. Suspected noncalcified gallstones versus gallbladder sludge. No biliary dilatation. Dictated and Authenticated by: Harpreet Blood MD. Ordering:KAVITA Roach MD
[2022-12-19 02:17] VITALS: BP 107/67; PULSE 78; RESP 16; TEMP 36.7; O2SAT 95
== END 2022-12-19 02:20 | disposition home or self-care (01) ==
PROVIDERS: Emergency Provider Emergency Medicine
DX: R10.30 Lower abdominal pain, unspecified (principal); E11.9 Type 2 diabetes mellitus without complications; F20.9 Schizophrenia, unspecified; I10 Essential (primary) hypertension; R79.89 Other specified abnormal findings of blood chemistry; R11.0 Nausea
CPT/HCPCS: 80053; 83690; 96374; 99285; 74177; 81003; 83735; 85025; 99284; J2405

== ENCOUNTER 2022-12-25 13:39 | Emergency (ER) | payer MEDICAID, SELFPAY ==
[2022-12-25] VITALS (32 sets, daily range): BP systolic 108–145; BP diastolic 56–102; PULSE 59–76; RESP 10–20; TEMP 36.7; O2SAT 96–98
--- NOTE | 2022-12-25 13:30 | RT.EKG_ITS ---
APPROVED REPORT Exam: Resting ECG Reason for Exam: chest pain Patient Location: E HR:71 bpm ECG Measurements Heart Rate 71 AXIS SC 180 P 39 QRSd 103 QRS 14 QT 415 T 29 QTc 452 Conclusion Sinus rhythm...normal P axis, V-rate 60- 99
--- NOTE | 2022-12-25 14:14 | W.ED.GENAD ---
Discharge Plan Discharge Details Chief Complaint: Chest Pain Primary Care Provider: None,None ED Provider: Karlos Vasquez Home Meds and New Rx's Prescriptions: No Action atorvastatin 40 mg tablet 80 mg PO DAILY Patient Comments: Pt reports d/c and switched to another medication chlorhexidine gluconate [Peridex] 0.12 % mouthwash 15 ml mucous membrane BID Qty: 473 5RF Rx Instructions: rinse and spit twice a day Emgality Pen 120 mg/mL pen injector 120 mg subcut QMONTH Qty: 1 11RF sumatriptan succinate 100 mg tablet See Rx Instructions PO .COMPLEX Qty: 9 5RF Rx Instructions: take 1 tab at onset of headache; if no relief, may repeat 1 tab after at least 2 hrs; max = 2 tabs/24 hrs PO Claritin Liqui-Gel 10 MG capsule 1 cap PO DAILY Qty: 90 prochlorperazine maleate 10 mg tablet See Rx Instructions .ROUTE .COMPLEX Qty: 20 5RF Dose Instruction: TAKE 1 TABLET BY MOUTH EVERY 8 HOURS NEEDED FOR NAUSEA AND VOMITING, HEADACHE Rx Instructions: TAKE 1 TABLET BY MOUTH EVERY 8 HOURS NEEDED FOR NAUSEA AND VOMITING, HEADACHE multivitamin Tablet 1 tab PO DAILY vitamin A 10,000 unit Capsule 10,000 unit PO DAILY gabapentin 300 mg capsule 300 mg PO TID metformin 500 mg tablet 1 tab PO BID omeprazole 20 mg capsule,delayed release(DR/EC) 40 mg PO DAILY benztropine 0.5 MG tablet 0.5 mg PO BID aspirin,buffd-calcium carb-mag 325 MG tablet 325 mg PO DAILY fluoxetine 40 mg capsule 80 mg PO DAILY Patient Comments: TK 2 CS PO QD Risperdal Consta 25 mg/2 mL suspension,extended rel recon 25 mg IM USEASDIRECTD Patient Comments: INJECT ONE SYRINGE INTRAMUSCULARLY ONCE EVERY TWO WEEKS Rx Instructions: every 2 weeks lactulose 10 gram/15 mL solution 20 g PO DIRECTED PRN Patient Comments: TAKE ONE TO TWO TABLESPOONS BY MOUTH NEEDED WHEN 3 DAYS PASS WITHOUT BOWEL MOVEMENT lorazepam 1 mg tablet 1 mg PO QID Patient Comments: TK 1 T PO QAM THEN 2 TS HS Rx Instructions: 01/03/21 1 mg in am and 2 mg at hs Reports 1 mg in am, 1 mg in afternoon, 2 mg at hs albuterol sulfate 90 mcg/actuation aerosol powdr breath activated 2 inh IH Q6H PRN (Reason: shortness of breath or wheezing) Qty: 1 0RF Nu-Mag 71.5 mg tablet,delayed release (DR/EC) 71.5 mg PO DAILY Qty: 20 0RF atenolol 50 mg tablet 75 mg PO DAILY Rx Instructions: To take with 25mg dose for TDD 75mg daily simvastatin 40 mg tablet 40 mg PO DAILY Medical Decision Making Patient reporting chest pain for the last 2 hours. Patient then states he had some radiation of pain in the left arm and also has developed some nausea. In the ambulance he was given aspirin and an antiemetic and states his nausea is improving but continued chest pain. Patient denies any syncope, does state mild shortness of breath denies any anxiety although has a significant history of anxiety and denies all other symptoms. Patient does have significant history of diabetes, hypercholesterolemia, hypothyroidism, schizoaffective disorder, hypertension, obesity mitral valve prolapse. Physical exam is benign for any acute findings and patient does not appear in worrisome distress at this time. Given patient's significant past medical history we will plan on performing EKG, chest x-ray, and lab work. Please see physician interpretation for full interpretation of EKG but upon my review patient is in sinus rhythm with no findings to suggest acute STEMI at this time. We will continue to monitor. Review of CBC shows chronic but worsening anemia with hemoglobin of 10.9, MCV MCH and RDW are all within normal limits, normal platelets otherwise CBC is unremarkable. CMP does show slight elevation of glucose 151 low mag of 1.6 which will give orally, alk phos of 155 and albumin of 2.9. Initial troponin is negative. We will continue to monitor. Given precipitous drop and hemoglobin over the past couple days I did asked patient about any GI bleeding hematuria hematemesis which he denies all of these. While this may explain patient's shortness of breath and some of discomfort unsure where bleeding is occurring. At this time I do not feel the patient requires a transfusion. We will attempt to obtain echo if possible given patient's history of mitral valve prolapse, chest pain, and anemia. Medical Records Medical records reviewed: Yes I reviewed the patient's medical records. Medical records narrative: Did review past medical records which patient has had similar presentations emergency department multiple times with negative work-ups. Due to patient's significant medical history though will still recommend two troponins. Imaging Data Radiologic Study: Imaging: X-Ray Radiologist's impression: EXAM: XR PORTABLE CHEST AP CLINICAL HISTORY: chest pain TECHNIQUE: 2D digital imaging was performed. COMPARISON: CR,XR XR CHEST 2V PA LATERAL from 12/02/2022 FINDINGS: Leads overlie the chest LUNGS: Suboptimally inflated but clear. No pleural abnormality seen. HEART: Normal size. AORTA: Normal diameter. BONES: Unremarkable for age. Soft tissues: Unremarkable. IMPRESSION: No acute findings. Lab Data Lab results reviewed: Yes I reviewed the patient's lab results. HPI General Mode of arrival: EMS. Date/Time Provider Initiated Documentation: 12/25/22 14:06. Limitations to Documentation: no limitations. Information obtained by: patient, EMS and RN notes reviewed. History of Present Illness 57 year old M presents to the emergency department with the chief complaint of Chest pain, described as moderate, with intensity rated at 7. Quality is described as aching, and is localized to the chest. Patient extremity (left). Patient started experiencing this hour(s) (2) and it has been constant. No relieving factors improve symptom(s), No exacerbating factors reported . Patient notes no other symptoms.. Patient did receive the following treatments prior to arrival, Aspirin Related Data Home Medications Medication Instructions Recorded Confirmed loratadine 10 mg capsule (Claritin 1 cap PO DAILY #90 tabs 12/16/14 12/25/22 Liqui-Gel) aspirin,buffered (calcium 325 mg PO DAILY 11/18/16 12/25/22 carbonate-magnesium) 325 mg tablet benztropine 0.5 mg tablet 0.5 mg PO BID 11/18/16 12/25/22 fluoxetine 40 mg capsule 80 mg PO DAILY 10/03/20 12/25/22 lactulose 10 gram/15 mL oral 20 g PO DIRECTED PRN 10/03/20 12/25/22 solution risperidone microspheres 25 mg/2 25 mg IM USEASDIRECTD 10/03/20 12/25/22 mL intramuscular susp,ext release (Risperdal Consta) albuterol sulfate 90 mcg/actuation 2 inh inhalation Q6H PRN shortness 12/15/20 12/25/22 breath activated powder inhaler of breath or wheezing #1 ea multivitamin 1 tab PO DAILY 01/26/21 12/25/22 vitamin A 3,000 mcg (10,000 unit) 10,000 unit PO DAILY 01/26/21 12/25/22 capsule lorazepam 1 mg tablet 1 mg PO QID 07/05/21 12/25/22 chlorhexidine gluconate 0.12 % 15 ml mucous membrane BID dental 09/06/21 12/25/22 mouthwash (Peridex) problem #473 mL gabapentin 300 mg capsule 300 mg PO TID 03/05/22 12/25/22 metformin 500 mg tablet 1 tab PO BID 03/18/22 12/25/22 omeprazole 20 mg capsule,delayed 40 mg PO DAILY 03/18/22 12/25/22 release galcanezumab-gnlm 120 mg/mL 120 mg subcut QMONTH #1 mL 04/05/22 12/25/22 subcutaneous pen injector (Emgality Pen) prochlorperazine maleate 10 mg See Rx Instructions .Route 05/02/22 12/25/22 tablet .COMPLEX #20 tabs atorvastatin 40 mg tablet 80 mg PO DAILY 06/01/22 10/10/22 sumatriptan succinate 100 mg tablet See Rx Instructions PO .COMPLEX #9 06/28/22 12/25/22 tabs magnesium chloride 71.5 mg 71.5 mg PO DAILY #20 tabs 09/05/22 12/25/22 (magnesium chloride) tablet,delayed release (Nu-Mag) atenolol 50 mg tablet 75 mg PO DAILY 09/26/22 12/25/22 simvastatin 40 mg tablet 40 mg PO DAILY 12/25/22 12/25/22 Previous Rx's Medication Instructions Recorded albuterol sulfate 90 mcg/actuation 2 inh inhalation Q6H PRN shortness 12/15/20 breath activated powder inhaler of breath or wheezing #1 ea chlorhexidine gluconate 0.12 % 15 ml mucous membrane BID dental 09/06/21 mouthwash (Peridex) problem #473 mL galcanezumab-gnlm 120 mg/mL 120 mg subcut QMONTH #1 mL 04/05/22 subcutaneous pen injector (Emgality Pen) prochlorperazine maleate 10 mg See Rx Instructions .Route 05/02/22 tablet .COMPLEX #20 tabs sumatriptan succinate 100 mg tablet See Rx Instructions PO .COMPLEX #9 06/28/22 tabs magnesium chloride 71.5 mg 71.5 mg PO DAILY #20 tabs 09/05/22 (magnesium chloride) tablet,delayed release (Nu-Mag) Allergies Allergy/AdvReac Type Severity Reaction Status Date / Time buspirone Allergy Verified 12/25/22 14:00 paliperidone Allergy Verified 12/25/22 14:00 paroxetine HCl [From Paxil] Allergy Verified 12/25/22 14:00 sertraline Allergy Verified 12/25/22 14:00 ziprasidone [From Geodon] Allergy Other (See Verified 12/25/22 14:00 Comment) aripiprazole [From Abilify] AdvReac Intermediate INVOLUNTARY Verified 12/25/22 14:00 MUSCLE MOVEMENTS divalproex sodium AdvReac Intermediate INVOLUNTARY Verified 12/25/22 14:00 [From Depakote] MUSCLE MOVEMENTS mirtazapine AdvReac Intermediate INVOLUNTARY Verified 12/25/22 14:00 MUSCLE MOVEMENTS risperidone AdvReac Intermediate INVOLUNTARY Verified 12/25/22 14:00 MUSCLE MOVEMENTS benztropine mesylate AdvReac elevated Verified 12/25/22 14:00 [From Cogentin] blood sugars enviornmental Allergy Mild Wheezing Uncoded 12/25/22 14:00 General Stated Complaint: Chest Pain CARLOS: 2 Review of Systems Constitutional Constitutional: Denies chills, Denies fever(s) and Denies malaise Cardiovascular Cardiovascular: Reports as per HPI, Reports chest pain, Denies chest pain with activity, Denies syncope, Denies irregular heart rhythm, Denies palpitations and Denies dyspnea Respiratory Respiratory: Denies cough, Denies hemoptysis and Denies dyspnea Gastrointestinal Gastrointestinal: Denies abdominal pain, Reports nausea and Denies vomiting Neurologic Neurologic: Denies syncope Psychiatric Psychiatric: Denies anxiety Endocrine Endocrine: Denies cold intolerance, Denies heat intolerance and Denies palpitations PFSH All Active Problems Anxiety (Chronic) Abdominal pain (Acute) Medication overuse headache (Acute) Drug-seeking behavior (Chronic ~09/20/21) Requests Ritalin from providers Broken teeth (Chronic) Anemia (Chronic) Hiatal hernia (Chronic) protonix not effective, nexium works better 02/12/18 Hypertension (Chronic) pt requests brand name Tenormin vs atenolol 04/02/18 Allergic rhinitis (Chronic) lortadine Tobacco use disorder (Chronic) started 2013 1.5 ppd, pipe 1-7/week, QUIT LATE OCT 2021 Poor dentition (Acute) Obesity (Chronic) BMI 52 Migraine (Chronic) Migraine headache without aura (Acute) Chronic headache (Acute) Chest pain (Acute) Left-sided chest wall pain (Acute) Depression (Acute 10/02/14) Diabetes mellitus type 2 in obese (Acute 09/09/14) GERD (gastroesophageal reflux disease) (Acute 09/07/14) Hypercholesterolemia (Chronic 09/07/14) pt insists on lipitor 80 mg due to family hx Hypothyroidism (acquired) (Acute 09/07/14) Schizoaffective disorder (Acute 09/07/14) Rebekah Mariscal [facility] 09/2014- [facility] inpatient Medical History Anxiety Dental caries Hyperlipidemia Mitral valve prolapse Peripheral neuropathy Trigeminal neuralgia Surgical History No significant past surgical history Family History Father Heart disease [place] Social History Smoking/Tobacco Use Status: Current every day Tobacco Type: cigarettes, pipe Years: 8 Other: States equivalent to 1.5 packs cigarettes and cigars Smoking risk assessment performed?: Yes Alcohol Intake: never Drug use: Never Substance use type: does not use Adopted: No Caregiver/Support person: No Foster care: No Household members: none Housing: apartment Number of Children: 2 number of grandchildren: 1 Communication Needs: Corrective Lenses Education Level: college Do you need help understanding health information?: Always current occupation: Unemployed/Leave of absence Sexually active: No Do you think of yourself as: Decline to provide Current gender identity: male What type of physical activity do you participate in: other Details: weight lifting Frequency: 3-4 times per week Magalie/Latter Day: Hoahaoism Seatbelt use: always Drive 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 or ride w/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 Working smoke detector in home: Yes Fire extinguisher in home: Yes Carbon monox detector in home: Yes Do you feel safe at home: Yes (anxiety) Do you feel safe in your relationship?: Yes Exam Const General: cooperative, healthy appearing, comfortable, no acute distress, not diaphoretic and not ill appearing Nutritional Appearance: average body habitus Orientation: alert, awake and oriented x3 Limitations: mental status not altered Neck Neck: normal visual inspection, full ROM, trachea midline, supple and no anterior neck swelling Thyroid: thyroid normal Carotids: normal carotid upstroke and no bruits Chest Chest: normal inspection of the chest Resp Effort & Inspection: normal respiratory effort and able to speak in complete sentences Auscultation: clear to auscultation bilaterally Cardio Jugular venous pressure: no JVD Palpation: normal PMI Rate: regular rate Rhythm: regular rhythm Heart Sounds: S1 normal, S2 normal, no click, no gallops, no murmurs and no rubs Bruits: no abdominal aortic bruits and no carotid bruits Pulses: radial pulses present bilaterally 2+ GI Inspection: obesity Skin General skin exam: no rashes or lesions noted Neuro General: patient alert, patient awake, patient oriented x3, tone normal and moves all extremities Course Vital Signs Vital signs: Vital Signs Temperature 36.7 C 12/25/22 13:39 Pulse 76 12/25/22 13:39 Respiratory Rate 16 12/25/22 13:39 Blood Pressure 144/73 H 12/25/22 13:39 Pulse Oximetry 96 12/25/22 13:39 Temperature 36.7 C 12/25/22 13:39 Temperature Source Temporal Artery Scan 12/25/22 13:39 Pulse 76 12/25/22 13:39 Respiratory Rate 16 12/25/22 13:53 Respiratory Effort Normal, Non-Labored 12/25/22 13:53 Respiratory Depth Normal 12/25/22 13:53 Respiratory Pattern Normal 12/25/22 13:53 Blood Pressure 144/73 H 12/25/22 13:39 Blood Pressure Position Sitting 12/25/22 13:39 Pulse Oximetry 96 12/25/22 13:39 Oxygen Delivery Method Room Air 12/25/22 13:39 Oxygen Flow Rate 0 12/25/22 13:39 Pain Level 7 12/25/22 13:39 Sign Out Sign Out Data: Sign Out Comment: Patient pending delta troponin and echo results. Patient in stable condition. Last updated by Karlos Vasquez NP at 12/25/22 15:31
[2022-12-25 14:24] LABS: Abs Immature Grans 0.04 10^3/uL (0.0-0.06); Absolute Basophil Count 0.03 10^3/uL (0.0-0.2); Absolute Lymphocyte Count 2.41 10^3/uL (1.2-3.4); Absolute Monocyte Count 0.49 10^3/uL (0.1-0.8); Absolute Neutrophil Count 6.05 10^3/uL (1.2-6.7); Basophils % 0.3; Eosinophils % 4.2; HCT 32.6 % (40.0-50.0); HGB 10.9 g/dL (13.5-17.5); Immature Grans % 0.4; Lymphocytes % 25.6; MCH 30.1 pg (27.0-33.0); MCHC 33.4 % (32.0-36.0); MCV 90 fL (80-95); MPV 8.5 fL (8.0-11.0); Monocytes % 5.2; Neutrophils % 64.3; Platelet Count 202 10^3/uL (130-400); RBC 3.62 10^6/uL (4.36-5.78); RDW 12.5 % (11.8-14.1); WBC 9.42 10^3/uL (4.4-10.8)
[2022-12-25] MEDS: Normal Saline Flush 10 ML SYR IVP (14:40)
--- NOTE | 2022-12-25 14:41 | DI.RAD_ITS ---
Exam(s) XR PORTABLE CHEST AP EXAM: XR PORTABLE CHEST AP CLINICAL HISTORY: chest pain TECHNIQUE: 2D digital imaging was performed. COMPARISON: CR,XR XR CHEST 2V PA LATERAL from 12/02/2022 FINDINGS: Leads overlie the chest LUNGS: Suboptimally inflated but clear. No pleural abnormality seen. HEART: Normal size. AORTA: Normal diameter. BONES: Unremarkable for age. Soft tissues: Unremarkable. IMPRESSION: No acute findings. DATA REPOSITORY: RADIATION DOSE DELIVERED:
[2022-12-25 14:43] LABS: ALT 63 U/L (16-63); AST 30 U/L (15-37); Albumin 2.9 g/dL (3.4-5.0); Alkaline Phosphatase 155 U/L (46-116); Anion Gap 6.2 mmol/L (3-11); BUN 11 mg/dL (7-18); Bilirubin, Total 0.4 mg/dL (0.2-1.0); CO2 29.8 mmol/L (21.0-32.0); CREATININE 0.9 mg/dL (0.70-1.30); Chloride 100 mmol/L (98-107); Estimated GFR 99.62 (mL/min/1.73m2); Glucose 151 mg/dL (74-106); Magnesium 1.6 mg/dL (1.8-2.4); Potassium 4.5 mmol/L (3.5-5.1); Sodium 136 mmol/L (136-145); Troponin I < 50 ng/L (<or=60)
--- NOTE | 2022-12-25 15:00 | DI.US_ITS ---
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 Technically limited study due to body habitus, inability to position patient exa m done supine in the er. Conclusion Normal left ventricular wall thickness and chamber size. Estimated ejection fraction is 55%. No seg mental wall motion abnormalities are noted The right ventricle appears grossly normal in size and systolic function Both atria are normal in size There is no structural or hemodynamically significant valvular disease Wall motion Left Ventricle The left ventricle is normal size. The overall left ventricular systolic function appears normal. The re is normal left ventricular wall thickness. Regional wall motion is grossly normal. There is no keesha tricular septal defect visualized. LVEF is 55%. Right Ventricle Right ventricle is grossly normal in size. Right ventricular systolic function is grossly normal. Atria The left atrium size is normal. Right atrium size is normal. The interatrial septum is intact with no evidence for an atrial septal defect. Aortic Valve The aortic valve is normal in structure. Aortic valve is trileaflet. There is no aortic valvular sten osis. No aortic regurgitation is present. Mitral Valve The mitral valve is normal in structure. No evidence of mitral valve stenosis. Trace mitral regurgita tion. Tricuspid Valve The tricuspid valve is normal in structure. There is no tricuspid valve stenosis. Trace tricuspid reg urgitation. Unable to assess PA pressure. Pulmonic Valve The pulmonary valve is normal in structure. There is no pulmonic valvular stenosis. Trace pulmonic re gurgitation. Great Vessels The aortic root is normal in size. The ascending aorta is normal in size. Aortic arch is normal in ca liber. IVC is normal in size and collapses >50% with inspiration. Pericardium There is no pericardial effusion. 2D Dimensions IVSD d PLAX 0.89 cm M: 0.6-1.2 LVPW d PLAX 0.96 cm M: 0.6 - 1.2 LVID d PLAX 5.40 cm M: 4.2 - 5.8 LVDs 3.80 cm M: 2.5 - 4.0 Ao Root d 2.99 cm M: 3.1 - 3.7 Ao Asc Diam d 3.23 cm M: 2.6 - 3.4 LV EF Teichholz 55.3 % FS 24.45 % M-Mode TAPSE 1.90 cm (M/F) >1.7 LV Diastology MV E' medial 0.098 (>0.07 m/s) E/A Ratio 1.2 LV E/e MED 7.20 (<14) MV E Vmax 0.71 (0.4-1.3 m/s) MV E' lateral 0.131 (>0.1 m/s) MV A Vmax 0.60 (0.4-1.3 m/s) LV E/e LAT 5.40 (<14) MV E/A Ratio 1.17 MV E/E' medial 7.24 MV E/E' lateral 5.41 Aortic Valve LVOT Area 3.44 cm2 AoV Area Vmax 2.60 cm2 LVOT Vmax 1.22 m/s ARMIDA Mean Job. 2.21 cm2 LVOT Mean Job. 0.80 m/s LVOT Peak Grad 6.0 mmHg LVOT Mean Grad 3.0 mmHg LVOT VTI 0.254 m LVOT Diam s 2.05 cm AoV Vmax 1.61 m/s Velocity Ratio 0.76 AoV Mean Job. 1.24 m/s AoV Peak Grad 10.4 mmHg LVOT SV 87.43 mL AoV Mean Grad 6.6 mmHg AoV VTI 0.337 m AoV Area VTI 2.60 cm2 Mitral Valve MV DT 236 (160-240 msec) MV PHT 68 msec MV Area PHT 3.21 cm2 MV VTI 0.386 m MV Area VTI 2.26 (4.0-6.0 cm2) Pulmonary Valve PV Vmax 1.17 (0.5-1.5 m/s) RVOT Peak Gr. 1.64 mmHg PV Peak Grad 5.4 mmHg RVOT Mean Gr. 0.80 mmHg PV Mean Grad 2.7 mmHg RVOT VTI 0.143 m PV VTI 0.237 m RVOT Vmax 0.64 m/s
[2022-12-25] MEDS: Magnesium Oxide 400 MG TAB PO (15:19)
--- NOTE | 2022-12-25 17:01 | ED.PROG_ITS ---
Date of service: 12/25/22 Time of Service: 17:01 Medical Decision Making Care transition myself from Karlos Vasquez NP. Please see his initial note regarding history, presentation and exam. In brief, patient is a pleasant 57-year-old male with acute on chronic chest discomfort. Patient was noted to be anemic with a hemoglobin of 10.9. In HOSPITAL ATTENDANT Christina's differential was anemia associated with the patient known mitral regurgitation and he recommended an echo. At the time I assumed care, echo and repeat troponin are pending. Patient denies any GI source of his anemia. Echo reviewed: Conclusion Normal left ventricular wall thickness and chamber size.? Estimated ejection fraction is 55%.? No segmental wall motion abnormalities are noted The right ventricle appears grossly normal in size and systolic function Both atria are normal in size There is no structural or hemodynamically significant valvular disease Discussed with patient. We discussed disposition. He reports that he is going to care bed tomorrow, would like to go home tonight so that he can keep this plan. Return precautions discussed. All of his quesitons and concerns were addressed, he is in agreement iwth this plan. Sign Out Sign Out Data: Sign Out Comment: Patient pending delta troponin and echo results. Patient in stable condition. Last updated by Karlos Vasquez NP at 12/25/22 15:31 Discharge Plan Disposition Patient Disposition: Home Condition: Stable Discharge Details Clinical Impression: Left-sided chest pain ED Provider: Polina Gross Home Meds and New Rx's Prescriptions: Continued atorvastatin 40 mg tablet 80 mg PO DAILY Patient Comments: Pt reports d/c and switched to another medication chlorhexidine gluconate [Peridex] 0.12 % mouthwash 15 ml mucous membrane BID Qty: 473 5RF Rx Instructions: rinse and spit twice a day Emgality Pen 120 mg/mL pen injector 120 mg subcut QMONTH Qty: 1 11RF sumatriptan succinate 100 mg tablet See Rx Instructions PO .COMPLEX Qty: 9 5RF Rx Instructions: take 1 tab at onset of headache; if no relief, may repeat 1 tab after at least 2 hrs; max = 2 tabs/24 hrs PO Claritin Liqui-Gel 10 MG capsule 1 cap PO DAILY Qty: 90 prochlorperazine maleate 10 mg tablet See Rx Instructions .ROUTE .COMPLEX Qty: 20 5RF Dose Instruction: TAKE 1 TABLET BY MOUTH EVERY 8 HOURS NEEDED FOR NAUSEA AND VOMITING, HEADACHE Rx Instructions: TAKE 1 TABLET BY MOUTH EVERY 8 HOURS NEEDED FOR NAUSEA AND VOMITING, HEADACHE multivitamin Tablet 1 tab PO DAILY vitamin A 10,000 unit Capsule 10,000 unit PO DAILY gabapentin 300 mg capsule 300 mg PO TID metformin 500 mg tablet 1 tab PO BID omeprazole 20 mg capsule,delayed release(DR/EC) 40 mg PO DAILY benztropine 0.5 MG tablet 0.5 mg PO BID aspirin,buffd-calcium carb-mag 325 MG tablet 325 mg PO DAILY fluoxetine 40 mg capsule 80 mg PO DAILY Patient Comments: TK 2 CS PO QD Risperdal Consta 25 mg/2 mL suspension,extended rel recon 25 mg IM USEASDIRECTD Patient Comments: INJECT ONE SYRINGE INTRAMUSCULARLY ONCE EVERY TWO WEEKS Rx Instructions: every 2 weeks lactulose 10 gram/15 mL solution 20 g PO DIRECTED PRN Patient Comments: TAKE ONE TO TWO TABLESPOONS BY MOUTH NEEDED WHEN 3 DAYS PASS WITHOUT BOWEL MOVEMENT lorazepam 1 mg tablet 1 mg PO QID Patient Comments: TK 1 T PO QAM THEN 2 TS HS Rx Instructions: 01/03/21 1 mg in am and 2 mg at hs Reports 1 mg in am, 1 mg in afternoon, 2 mg at hs albuterol sulfate 90 mcg/actuation aerosol powdr breath activated 2 inh IH Q6H PRN (Reason: shortness of breath or wheezing) Qty: 1 0RF Nu-Mag 71.5 mg tablet,delayed release (DR/EC) 71.5 mg PO DAILY Qty: 20 0RF atenolol 50 mg tablet 75 mg PO DAILY Rx Instructions: To take with 25mg dose for TDD 75mg daily simvastatin 40 mg tablet 40 mg PO DAILY No Action clonazepam 0.5 mg tablet 0.5 mg PO 1XD Discharge Instructions Instructions: Chest Pain (ED) Additional Instructions: Your exam is reassuring here today. Your echo did not show acute abnormality. Please follow up with primary care this week. Please keep your upcoming cardiology appointment. Please keep your plan for stay at Care Bed. If you develop increased pain, shortness of breath, difficulty breathing, or other new/worsening symptoms, please seek care urgently once again. Discharge Data Discharge Date/Time-TO BE ENTERED AT DEPARTURE: 12/25/22 18:59
[2022-12-25 17:53] LABS: Troponin I < 50 ng/L (<or=60)
== END 2022-12-25 18:59 | disposition home or self-care (01) ==
PROVIDERS: Nurse Practitioner Family; Emergency Provider Physician Assistant
DX: R07.89 Other chest pain (principal); G89.29 Other chronic pain; D64.9 Anemia, unspecified; M79.602 Pain in left arm; R11.0 Nausea; R06.02 Shortness of breath; I10 Essential (primary) hypertension; E11.42 Type 2 diabetes mellitus with diabetic polyneuropathy; E11.65 Type 2 diabetes mellitus with hyperglycemia; E03.9 Hypothyroidism, unspecified; E78.00 Pure hypercholesterolemia, unspecified; E83.42 Hypomagnesemia; Z79.84 Long term (current) use of oral hypoglycemic drugs; Z79.82 Long term (current) use of aspirin
CPT/HCPCS: 80053; 93005; 96365; 99284; 71045; 83735; 84484; 85025; 93010; 93306; J0131; J3490

== ENCOUNTER 2022-12-27 18:40 | Emergency (ER) | payer MEDICAID, SELFPAY ==
[2022-12-27] VITALS (47 sets, daily range): BP systolic 119–157; BP diastolic 59–76; PULSE 61–78; RESP 12–30; TEMP 36.2; O2SAT 93–96
--- NOTE | 2022-12-27 18:30 | RT.EKG_ITS ---
APPROVED REPORT Exam: Resting ECG Reason for Exam: pain Patient Location: E HR:74 bpm ECG Measurements Heart Rate 74 AXIS IA 193 P 30 QRSd 95 QRS 20 QT 412 T 81 QTc 457 Conclusion Sinus rhythm...normal P axis, V-rate 60- 99 Physician: no stemi
--- NOTE | 2022-12-27 18:30 | DI.RAD_ITS ---
Exam(s) XR CHEST 2V PA LATERAL EXAM: XR CHEST 2V PA LATERAL CLINICAL HISTORY: pain TECHNIQUE: 2D digital imaging was performed of the chest. Two images were obtained. PA and lateral views were obtained. COMPARISON: CR XR PORTABLE CHEST AP from 12/25/2022 FINDINGS: MEDIASTINUM: Normal. HEART: Normal. PULMONARY VASCULATURE: Normal. LUNGS: Clear. PLEURAL SPACE: No pleural effusion or pneumothorax. BONE:Within normal limits for the patient's age. OTHER FINDINGS:Normal. IMPRESSION: No acute pulmonary findings. DATA REPOSITORY: RADIATION DOSE DELIVERED:
[2022-12-27 18:58] LABS: Abs Immature Grans 0.04 10^3/uL (0.0-0.06); Absolute Basophil Count 0.03 10^3/uL (0.0-0.2); Absolute Eosinophil Count 0.31 10^3/uL (0.0-0.7); Absolute Lymphocyte Count 1.91 10^3/uL (1.2-3.4); Absolute Monocyte Count 0.55 10^3/uL (0.1-0.8); Absolute Neutrophil Count 5.82 10^3/uL (1.2-6.7); Basophils % 0.3; Eosinophils % 3.6; HCT 35.6 % (40.0-50.0); HGB 11.9 g/dL (13.5-17.5); Immature Grans % 0.5; Lymphocytes % 22.1; MCH 30.3 pg (27.0-33.0); MCHC 33.4 % (32.0-36.0); MCV 91 fL (80-95); MPV 8.4 fL (8.0-11.0); Monocytes % 6.4; Neutrophils % 67.1; Platelet Count 225 10^3/uL (130-400); RBC 3.93 10^6/uL (4.36-5.78); RDW 12.6 % (11.8-14.1); RDW-SD 41.4 fL; WBC 8.66 10^3/uL (4.4-10.8)
--- NOTE | 2022-12-27 19:03 | W.ED.GENAD ---
Discharge Plan Disposition Patient Disposition: Other Disposition Not Listed Other Facility: Care bed Discharge Details Clinical Impression: Chest pain Primary Care Provider: None,None ED Provider: Tyrone Cancino Home Meds and New Rx's Prescriptions: Continued atorvastatin 40 mg tablet 80 mg PO DAILY Patient Comments: Pt reports d/c and switched to another medication chlorhexidine gluconate [Peridex] 0.12 % mouthwash 15 ml mucous membrane BID Qty: 473 5RF Rx Instructions: rinse and spit twice a day Emgality Pen 120 mg/mL pen injector 120 mg subcut QMONTH Qty: 1 11RF sumatriptan succinate 100 mg tablet See Rx Instructions PO .COMPLEX Qty: 9 5RF Rx Instructions: take 1 tab at onset of headache; if no relief, may repeat 1 tab after at least 2 hrs; max = 2 tabs/24 hrs PO Claritin Liqui-Gel 10 MG capsule 1 cap PO DAILY Qty: 90 prochlorperazine maleate 10 mg tablet See Rx Instructions .ROUTE .COMPLEX Qty: 20 5RF Dose Instruction: TAKE 1 TABLET BY MOUTH EVERY 8 HOURS NEEDED FOR NAUSEA AND VOMITING, HEADACHE Rx Instructions: TAKE 1 TABLET BY MOUTH EVERY 8 HOURS NEEDED FOR NAUSEA AND VOMITING, HEADACHE multivitamin Tablet 1 tab PO DAILY vitamin A 10,000 unit Capsule 10,000 unit PO DAILY gabapentin 300 mg capsule 300 mg PO TID metformin 500 mg tablet 1 tab PO BID omeprazole 20 mg capsule,delayed release(DR/EC) 40 mg PO DAILY clonazepam 0.5 mg tablet 0.5 mg PO 1XD benztropine 0.5 MG tablet 0.5 mg PO BID aspirin,buffd-calcium carb-mag 325 MG tablet 325 mg PO DAILY fluoxetine 40 mg capsule 80 mg PO DAILY Patient Comments: TK 2 CS PO QD Risperdal Consta 25 mg/2 mL suspension,extended rel recon 25 mg IM USEASDIRECTD Patient Comments: INJECT ONE SYRINGE INTRAMUSCULARLY ONCE EVERY TWO WEEKS Rx Instructions: every 2 weeks lactulose 10 gram/15 mL solution 20 g PO DIRECTED PRN Patient Comments: TAKE ONE TO TWO TABLESPOONS BY MOUTH NEEDED WHEN 3 DAYS PASS WITHOUT BOWEL MOVEMENT lorazepam 1 mg tablet 1 mg PO QID Patient Comments: TK 1 T PO QAM THEN 2 TS HS Rx Instructions: 01/03/21 1 mg in am and 2 mg at hs Reports 1 mg in am, 1 mg in afternoon, 2 mg at hs albuterol sulfate 90 mcg/actuation aerosol powdr breath activated 2 inh IH Q6H PRN (Reason: shortness of breath or wheezing) Qty: 1 0RF Nu-Mag 71.5 mg tablet,delayed release (DR/EC) 71.5 mg PO DAILY Qty: 20 0RF atenolol 50 mg tablet 75 mg PO DAILY Rx Instructions: To take with 25mg dose for TDD 75mg daily simvastatin 40 mg tablet 40 mg PO DAILY Discharge Instructions Instructions: Chest Pain (ED) Additional Instructions: Work-up in the ER is unremarkable for any obvious emergent process, you have responded nicely to the medications provided and are now asymptomatic. Please watch for new or worsening symptoms and return to the ER for any concerns. Lastly, please contact your primary care provider tomorrow to discuss your ER visit and need for outpatient reevaluation. Medical Decision Making This is a 57-year-old male, well-known to our ER, past medical history that includes anxiety, hyperlipidemia, mitral valve prolapse, peripheral neuropathy, schizoaffective disorder, thyroid disease, GERD, diabetes, left-sided chest pain, depression, presenting to the ER via EMS for left-sided chest pain and substernal chest pain that began after having an unpleasant conversation, 7 out of 10, removing himself from the situation and discomfort went down to a 5 out of 10. Clinically he appears well, nontoxic but slightly anxious. Plan to initiate a cardiac work-up, provide aspirin as he has not taken his aspirin today and a single milligram of IV Ativan. Upon reevaluation patient is sleeping, wakes easily to verbal stimuli. He reports that he is now asymptomatic. Initial laboratory values do not reveal any obvious emergent process. Magnesium is slightly low at 1.6, will provide 1 g IV magnesium. Troponin is less than 50. Patient agreeable to delta troponin. Chest x-ray unremarkable. Patient remains hemodynamically stable. Delta troponin remains less than 50. Upon reevaluation he is once again sleeping and wakes easily to verbal stimuli. Patient reports that he is asymptomatic, and is comfortable with discharge back to the care bed. Low suspicion for cardiac etiology. I do believe this likely stemmed from his unpleasant conversation. He denies any shortness of breath, recent illness or trauma. Standard discharge and return precautions were provided. Patient understands, is agreeable to this plan, and has no additional questions or concerns upon discharge. This documentation was generated using [employer] system, please disregard any oddities of phrase or misspellings. Medical Records Medical records reviewed: Yes I reviewed the patient's medical records. Imaging Data Radiologic Study: Attestation: I personally reviewed and interpreted this imaging study as follows: Imaging: X-Ray Radiologist's impression: PROCEDURE INFORMATION: Exam: XR Chest Exam date and time: 12/27/2022 19:32 Age: 57 years old Clinical indication: Chest wall pain; Additional info: Chest pain TECHNIQUE: Imaging protocol: Radiologic exam of the chest. Views: 2 views. COMPARISON: CR XR PORTABLE CHEST AP 12/25/2022 14:17 FINDINGS: Lungs: No consolidation. Pleural spaces: No pleural effusion. No pneumothorax. Heart/Mediastinum: No cardiomegaly. Bones/joints: No acute fracture. IMPRESSION: No acute cardiopulmonary pathology. Lab Data Lab results reviewed: Yes I reviewed the patient's lab results. Labs: Laboratory Tests Range/Units 12/27/22 12/27/22 12/27/22 18:50 18:50 21:45 WBC (4.4-10.8) 10^3/uL 8.66 RBC (4.36-5.78) 10^6/uL 3.93 L Hgb (13.5-17.5) g/dL 11.9 L Hct (40.0-50.0) % 35.6 L MCV (80-95) fL 91 MCH (27.0-33.0) pg 30.3 MCHC (32.0-36.0) % 33.4 RDW (11.8-14.1) % 12.6 Plt Count (130-400) 10^3/uL 225 MPV (8.0-11.0) fL 8.4 Immature Gran % 0.5 Neutrophils % 67.1 Lymphocytes % 22.1 Monocytes % 6.4 Eosinophils % 3.6 Basophils % 0.3 Nucleated RBC % (0.0-0.3) % 0.0 Absolute Neutrophils (1.2-6.7) 10^3/uL 5.82 Absolute Lymphocytes (1.2-3.4) 10^3/uL 1.91 Absolute Monocytes (0.1-0.8) 10^3/uL 0.55 Absolute Eosinophils (0.0-0.7) 10^3/uL 0.31 Absolute Basophils (0.0-0.2) 10^3/uL 0.03 Sodium (136-145) mmol/L 135 L Potassium (3.5-5.1) mmol/L 4.4 Chloride (98-107) mmol/L 99 Carbon Dioxide (21.0-32.0) mmol/L 30.6 Anion Gap (3-11) mmol/L 5.4 BUN (7-18) mg/dL 14 Creatinine (0.70-1.30) mg/dL 1.0 Est GFR (CKD-EPI 2020) (mL/min/1.73m2) 87.78 Glucose (74-106) mg/dL 208 H Calcium (8.5-10.1) mg/dL 9.5 Magnesium (1.8-2.4) mg/dL 1.6 L Total Bilirubin (0.2-1.0) mg/dL 0.3 AST (15-37) U/L 18 ALT (16-63) U/L 54 Alkaline Phosphatase (46-116) U/L 157 H Troponin I (<or=60) ng/L < 50 < 50 Total Protein (6.4-8.2) g/dL 8.2 Albumin (3.4-5.0) g/dL 3.5 ECG Data Attestation: I personally reviewed and interpreted this ECG (s) as follows: Interpretation: Sinus rhythm, ventricular of 74, no STEMI. HPI General Mode of arrival: EMS. Date/Time Provider Initiated Documentation: 12/27/22 18:49. Limitations to Documentation: no limitations. Information obtained by: patient and EMS. HPI Narrative: This is a 57-year-old gentleman who resides currently at the care bed presenting to the EMS via EMS, past medical history of anxiety, hiatal hernia, hypertension, smoker, obesity, migraines, depression, diabetes, GERD, thyroid disease, hyperlipidemia, schizoaffective disorder, mitral valve prolapse, peripheral neuropathy, presenting to the ER this evening reporting substernal and left-sided chest pain-pressure 7 out of 10 that began after he had a unpleasant talk on the Internet with a [employer] worker. Patient states that simply removing himself from the situation brought his discomfort down to a 4 or 5 out of 10. Denies recent illness or trauma. Has no additional concerns or complaints. Denies shortness of breath or radiation of discomfort. Patient reports a history of anxiety and chronic chest pain, this feels similar to both. He has not taken his aspirin today. Related Data Home Medications Medication Instructions Recorded Confirmed loratadine 10 mg capsule (Claritin 1 cap PO DAILY #90 tabs 12/16/14 12/27/22 Liqui-Gel) aspirin,buffered (calcium 325 mg PO DAILY 11/18/16 12/27/22 carbonate-magnesium) 325 mg tablet benztropine 0.5 mg tablet 0.5 mg PO BID 11/18/16 12/27/22 fluoxetine 40 mg capsule 80 mg PO DAILY 10/03/20 12/27/22 lactulose 10 gram/15 mL oral 20 g PO DIRECTED PRN 10/03/20 12/27/22 solution risperidone microspheres 25 mg/2 25 mg IM USEASDIRECTD 10/03/20 12/27/22 mL intramuscular susp,ext release (Risperdal Consta) albuterol sulfate 90 mcg/actuation 2 inh inhalation Q6H PRN shortness 12/15/20 12/27/22 breath activated powder inhaler of breath or wheezing #1 ea multivitamin 1 tab PO DAILY 01/26/21 12/27/22 vitamin A 3,000 mcg (10,000 unit) 10,000 unit PO DAILY 01/26/21 12/27/22 capsule lorazepam 1 mg tablet 1 mg PO QID 07/05/21 12/27/22 chlorhexidine gluconate 0.12 % 15 ml mucous membrane BID dental 09/06/21 12/27/22 mouthwash (Peridex) problem #473 mL gabapentin 300 mg capsule 300 mg PO TID 03/05/22 12/27/22 metformin 500 mg tablet 1 tab PO BID 03/18/22 12/27/22 omeprazole 20 mg capsule,delayed 40 mg PO DAILY 03/18/22 12/27/22 release galcanezumab-gnlm 120 mg/mL 120 mg subcut QMONTH #1 mL 04/05/22 12/27/22 subcutaneous pen injector (Emgality Pen) prochlorperazine maleate 10 mg See Rx Instructions .Route 05/02/22 12/27/22 tablet .COMPLEX #20 tabs atorvastatin 40 mg tablet 80 mg PO DAILY 06/01/22 12/27/22 sumatriptan succinate 100 mg tablet See Rx Instructions PO .COMPLEX #9 06/28/22 12/27/22 tabs magnesium chloride 71.5 mg 71.5 mg PO DAILY #20 tabs 09/05/22 12/27/22 (magnesium chloride) tablet,delayed release (Nu-Mag) atenolol 50 mg tablet 75 mg PO DAILY 09/26/22 12/27/22 simvastatin 40 mg tablet 40 mg PO DAILY 12/25/22 12/27/22 clonazepam 0.5 mg tablet 0.5 mg PO 1XD 12/27/22 12/27/22 Previous Rx's Medication Instructions Recorded albuterol sulfate 90 mcg/actuation 2 inh inhalation Q6H PRN shortness 12/15/20 breath activated powder inhaler of breath or wheezing #1 ea chlorhexidine gluconate 0.12 % 15 ml mucous membrane BID dental 09/06/21 mouthwash (Peridex) problem #473 mL galcanezumab-gnlm 120 mg/mL 120 mg subcut QMONTH #1 mL 04/05/22 subcutaneous pen injector (Emgality Pen) prochlorperazine maleate 10 mg See Rx Instructions .Route 05/02/22 tablet .COMPLEX #20 tabs sumatriptan succinate 100 mg tablet See Rx Instructions PO .COMPLEX #9 06/28/22 tabs magnesium chloride 71.5 mg 71.5 mg PO DAILY #20 tabs 09/05/22 (magnesium chloride) tablet,delayed release (Nu-Mag) Allergies Allergy/AdvReac Type Severity Reaction Status Date / Time buspirone Allergy Verified 12/27/22 20:11 paliperidone Allergy Verified 12/27/22 20:11 paroxetine HCl [From Paxil] Allergy Verified 12/27/22 20:11 sertraline Allergy Verified 12/27/22 20:11 ziprasidone [From Geodon] Allergy Other (See Verified 12/27/22 20:11 Comment) aripiprazole [From Abilify] AdvReac Intermediate INVOLUNTARY Verified 12/27/22 20:11 MUSCLE MOVEMENTS divalproex sodium AdvReac Intermediate INVOLUNTARY Verified 12/27/22 20:11 [From Depakote] MUSCLE MOVEMENTS mirtazapine AdvReac Intermediate INVOLUNTARY Verified 12/27/22 20:11 MUSCLE MOVEMENTS risperidone AdvReac Intermediate INVOLUNTARY Verified 12/27/22 20:11 MUSCLE MOVEMENTS benztropine mesylate AdvReac elevated Verified 12/27/22 20:11 [From [facility] [place]] blood sugars enviornmental Allergy Mild Wheezing Uncoded 12/25/22 14:00 General Stated Complaint: Chest Pain CARLOS: 2 Review of Systems Constitutional Constitutional: Denies fatigue, Denies fever(s), Reports headache(s) and Denies weakness Eyes Eyes: Denies change in vision ENT Ears, Nose, Mouth, and Throat: Reports headache(s) and Denies neck pain Cardiovascular Cardiovascular: Reports chest pain and Denies dyspnea Respiratory Respiratory: Denies cough and Denies dyspnea Gastrointestinal Gastrointestinal: Denies abdominal pain, Denies nausea and Denies vomiting Musculoskeletal Musculoskeletal: Denies back pain, Denies neck pain, Denies numbness and Reports tingling (Baseline neuropathy) Integumentary/Breasts Skin/Breast: Denies rash Neurologic Neurologic: Reports headache(s), Denies numbness, Reports tingling (Baseline neuropathy) and Denies weakness Psychiatric Psychiatric: Reports anxiety, Reports depression and Denies suicidal ideation Endocrine Endocrine: Denies fatigue Hematologic/Lymphatic Hematologic/Lymphatic: Denies easy bleeding and Denies easy bruising PFSH All Active Problems (Updated 12/27/22 @ 22:41 by JORDANA Borrero) Anxiety (Chronic) Abdominal pain (Acute) Left-sided chest pain (Acute) Chest pain (Acute) Medication overuse headache (Acute) Drug-seeking behavior (Chronic ~09/20/21) Requests Ritalin from providers Broken teeth (Chronic) Anemia (Chronic) Hiatal hernia (Chronic) protonix not effective, nexium works better 02/12/18 Hypertension (Chronic) pt requests brand name Tenormin vs atenolol 04/02/18 Allergic rhinitis (Chronic) lortadine Tobacco use disorder (Chronic) started 2013 1.5 ppd, pipe 1-7/week, QUIT LATE OCT 2021 Poor dentition (Acute) Obesity (Chronic) BMI 52 Migraine (Chronic) Migraine headache without aura (Acute) Chronic headache (Acute) Chest pain (Acute) Left-sided chest wall pain (Acute) Depression (Acute 10/02/14) Diabetes mellitus type 2 in obese (Acute 09/09/14) GERD (gastroesophageal reflux disease) (Acute 09/07/14) Hypercholesterolemia (Chronic 09/07/14) pt insists on lipitor 80 mg due to family hx Hypothyroidism (acquired) (Acute 09/07/14) Schizoaffective disorder (Acute 09/07/14) Rebekah Mariscal [facility] 09/2014- [facility] inpatient Medical History Anxiety Dental caries Hyperlipidemia Mitral valve prolapse Peripheral neuropathy Trigeminal neuralgia Surgical History No significant past surgical history Family History Father Heart disease [place] Social History Smoking/Tobacco Use Status: Current every day Tobacco Type: cigarettes, pipe Years: 8 Other: States equivalent to 1.5 packs cigarettes and cigars Smoking risk assessment performed?: Yes Alcohol Intake: never Drug use: Never Substance use type: does not use Adopted: No Caregiver/Support person: No Foster care: No Household members: none Housing: apartment Number of Children: 2 number of grandchildren: 1 Communication Needs: Corrective Lenses Education Level: college Do you need help understanding health information?: Always current occupation: Unemployed/Leave of absence Sexually active: No Do you think of yourself as: Decline to provide Current gender identity: male What type of physical activity do you participate in: other Details: weight lifting Frequency: 3-4 times per week Magalie/Pentecostal: Roman Catholic Seatbelt use: always Drive intox or ride w/intox crew car driver: No Working smoke detector in home: Yes Fire extinguisher in home: Yes Carbon monox detector in home: Yes Do you feel safe at home: Yes (anxiety) Do you feel safe in your relationship?: Yes Exam Const General: cooperative, healthy appearing, comfortable, no acute distress and anxious (Slightly) Orientation: alert, awake and oriented x3 HENMT Head: normal to inspection, normocephalic and atraumatic Face and sinus: normal facial exam Mouth: moist mucous membranes Eyes Conjunctivae: conjunctivae normal Neck Neck: normal visual inspection, full ROM, no meningeal signs, trachea midline and supple Resp Effort & Inspection: normal respiratory effort and able to speak in complete sentences Auscultation: clear to auscultation bilaterally Cardio Rate: regular rate Rhythm: regular rhythm GI Inspection: obesity Palpation: soft, not firm, no guarding, no pulsatile masses and nontender Back/Spine/Pelvis Back: no CVA tenderness and No back tenderness Skin General skin exam: no rashes or lesions noted Neuro General: patient alert, patient awake, patient oriented x3, moves all extremities and no focal motor deficits Cognition: normal cognition Speech: speech normal Gait: normal gait Motor: muscle tone normal throughout Sensory Exam: no sensory deficits noted Extrem General: normal to inspection, full ROM, capillary refill normal, no pedal edema and no calf tenderness Psych Appearance: grossly normal Mental Status: mental status grossly normal Course Vital Signs Vital signs: Vital Signs Temperature 36.2 C L 12/27/22 18:38 Pulse 78 12/27/22 18:38 Respiratory Rate 16 12/27/22 18:38 Blood Pressure 157/76 H 12/27/22 18:38 Pulse Oximetry 96 12/27/22 18:38 Temperature 36.2 C L 12/27/22 18:38 Temperature Source Skin 12/27/22 18:38 Pulse 78 12/27/22 18:38 Respiratory Rate 30 H 12/27/22 18:56 Respiratory Effort Normal 12/27/22 18:56 Respiratory Depth Normal 12/27/22 18:56 Respiratory Pattern Normal 12/27/22 18:56 Blood Pressure 157/76 H 12/27/22 18:38 Blood Pressure Position Sitting 12/27/22 18:38 Pulse Oximetry 96 12/27/22 18:38 Oxygen Delivery Method Room Air 12/27/22 18:38 Oxygen Flow Rate 0 12/27/22 18:38 Pain Level 7 12/27/22 18:38 Lab/Test Results Lab/Test Results: Laboratory Tests Range/Units 12/27/22 18:50 WBC (4.4-10.8) 10^3/uL 8.66 RBC (4.36-5.78) 10^6/uL 3.93 L Hgb (13.5-17.5) g/dL 11.9 L Hct (40.0-50.0) % 35.6 L MCV (80-95) fL 91 MCH (27.0-33.0) pg 30.3 MCHC (32.0-36.0) % 33.4 RDW (11.8-14.1) % 12.6 Plt Count (130-400) 10^3/uL 225 MPV (8.0-11.0) fL 8.4 Immature Gran % 0.5 Neutrophils % 67.1 Lymphocytes % 22.1 Monocytes % 6.4 Eosinophils % 3.6 Basophils % 0.3 Nucleated RBC % (0.0-0.3) % 0.0 Absolute Neutrophils (1.2-6.7) 10^3/uL 5.82 Absolute Lymphocytes (1.2-3.4) 10^3/uL 1.91 Absolute Monocytes (0.1-0.8) 10^3/uL 0.55 Absolute Eosinophils (0.0-0.7) 10^3/uL 0.31 Absolute Basophils (0.0-0.2) 10^3/uL 0.03
[2022-12-27 19:16] LABS: ALT 54 U/L (16-63); AST 18 U/L (15-37); Albumin 3.5 g/dL (3.4-5.0); Alkaline Phosphatase 157 U/L (46-116); Anion Gap 5.4 mmol/L (3-11); BUN 14 mg/dL (7-18); Bilirubin, Total 0.3 mg/dL (0.2-1.0); CO2 30.6 mmol/L (21.0-32.0); Calcium 9.5 mg/dL (8.5-10.1); Chloride 99 mmol/L (98-107); Estimated GFR 87.78 (mL/min/1.73m2); Glucose 208 mg/dL (74-106); Magnesium 1.6 mg/dL (1.8-2.4); Potassium 4.4 mmol/L (3.5-5.1); Sodium 135 mmol/L (136-145); Total Protein 8.2 g/dL (6.4-8.2); Troponin I < 50 ng/L (<or=60)
[2022-12-27] MEDS: MAGNESIUM SULFATE 1 GM/100 ML BAG IVPB (19:38)
--- NOTE | 2022-12-27 19:41 | DI.VRAD_ITS ---
PROCEDURE INFORMATION: Exam: XR Chest Exam date and time: 12/27/2022 19:32 Age: 57 years old Clinical indication: Chest wall pain; Additional info: Chest pain TECHNIQUE: Imaging protocol: Radiologic exam of the chest. Views: 2 views. COMPARISON: CR XR PORTABLE CHEST AP 12/25/2022 14:17 FINDINGS: Lungs: No consolidation. Pleural spaces: No pleural effusion. No pneumothorax. Heart/Mediastinum: No cardiomegaly. Bones/joints: No acute fracture. IMPRESSION: No acute cardiopulmonary pathology. Dictated and Authenticated by: Annalee Kellogg MD. Ordering:STEVE Hansen MD
[2022-12-27] MEDS: Aspirin 81 MG CHEW 324 MG CH (19:54)
[2022-12-27] MEDS: LORazepam 2 MG/ML VIAL 1 MG IVP (19:57)
[2022-12-27 22:14] LABS: Troponin I < 50 ng/L (<or=60)
--- NOTE | 2022-12-28 02:53 | NUR.NOTE ---
has no ride to care bed.. is sleeping in ER 11. RCT in am.Nursing Note:
--- NOTE | 2022-12-28 07:33 | NUR.NOTE ---
Nursing Note:Accessed chart for [facility] billing purposes.
--- NOTE | 2022-12-28 08:30 | NUR.NOTE ---
Nursing Note: Discharge transportation from the ED was arranged by clerk Darwin; by YINA. After the patient was picked up by [facility] I remembered that last night he came from the Care Bed with chest pain. I left a note that he was to go back to the Care Bed when he was discharge and had transportation. I called Lauar and she stated that she sent him back to his residence. Per Gita Yang, ED Dairy Associate, I called [facility] spoke with Jesse and he will deal with the situation.
== END 2022-12-27 23:49 | disposition other institution (70) ==
PROVIDERS: Emergency Provider Physician Assistant
DX: R07.9 Chest pain, unspecified (principal); E78.00 Pure hypercholesterolemia, unspecified; F25.9 Schizoaffective disorder, unspecified; F17.210 Nicotine dependence, cigarettes, uncomplicated; F17.290 Nicotine dependence, other tobacco product, uncomplicated; E11.40 Type 2 diabetes mellitus with diabetic neuropathy, unspecified; Z79.84 Long term (current) use of oral hypoglycemic drugs
CPT/HCPCS: 36415; 80053; 93005; 96374; 96375; 99284; 71046; 83735; 84484; 85025; 93010; 99285; J2060; J3475

== ENCOUNTER 2022-12-30 07:07 | Emergency (ER) | payer MEDICAID, SELFPAY ==
[2022-12-30] VITALS (31 sets, daily range): BP systolic 125–163; BP diastolic 64–118; PULSE 60–102; RESP 9–20; TEMP 37.4; O2SAT 94–99
--- NOTE | 2022-12-30 06:45 | RT.EKG_ITS ---
APPROVED REPORT Exam: Resting ECG Reason for Exam: chest pain Patient Location: E HR:74 bpm ECG Measurements Heart Rate 74 AXIS ME 182 P 40 QRSd 105 QRS 23 QT 417 T 39 QTc 464 Conclusion Sinus rhythm...normal P axis, V-rate 60- 99. Sinus. Normal axis. No STEMI. I have reviewed and interpreted ECG and agree with software generated interpretation.
--- NOTE | 2022-12-30 07:15 | DI.RAD_ITS ---
Exam(s) XR CHEST 2V PA LATERAL EXAM: XR CHEST 2V PA LATERAL CLINICAL HISTORY: chest pain, r/o acute disease TECHNIQUE: 2D digital imaging was performed of the chest. Two images were obtained. PA and lateral views were obtained. COMPARISON: CR,XR XR CHEST 2V PA LATERAL from 12/27/2022 FINDINGS: MEDIASTINUM: Normal. HEART: Normal. PULMONARY VASCULATURE: Normal. LUNGS: Clear. PLEURAL SPACE: No pleural effusion or pneumothorax. BONE:Within normal limits for the patient's age. OTHER FINDINGS:Normal. IMPRESSION: No acute pulmonary findings. DATA REPOSITORY: RADIATION DOSE DELIVERED:
--- NOTE | 2022-12-30 07:23 | ED.GENADUL_ITS ---
Discharge Plan Discharge Details Chief Complaint: Chest Pain Primary Care Provider: Brandon Foster ED Provider: [place] Viera Home Meds and New Rx's Prescriptions: No Action atorvastatin 40 mg tablet 80 mg PO DAILY Patient Comments: Pt reports d/c and switched to another medication chlorhexidine gluconate [Peridex] 0.12 % mouthwash 15 ml mucous membrane BID Qty: 473 5RF Rx Instructions: rinse and spit twice a day Emgality Pen 120 mg/mL pen injector 120 mg subcut QMONTH Qty: 1 11RF sumatriptan succinate 100 mg tablet See Rx Instructions PO .COMPLEX Qty: 9 5RF Rx Instructions: take 1 tab at onset of headache; if no relief, may repeat 1 tab after at least 2 hrs; max = 2 tabs/24 hrs PO Claritin Liqui-Gel 10 MG capsule 1 cap PO DAILY Qty: 90 prochlorperazine maleate 10 mg tablet See Rx Instructions .ROUTE .COMPLEX Qty: 20 5RF Dose Instruction: TAKE 1 TABLET BY MOUTH EVERY 8 HOURS NEEDED FOR NAUSEA AND VOMITING, HEADACHE Rx Instructions: TAKE 1 TABLET BY MOUTH EVERY 8 HOURS NEEDED FOR NAUSEA AND VOMITING, HEADACHE multivitamin Tablet 1 tab PO DAILY vitamin A 10,000 unit Capsule 10,000 unit PO DAILY gabapentin 300 mg capsule 300 mg PO TID metformin 500 mg tablet 1 tab PO BID omeprazole 20 mg capsule,delayed release(DR/EC) 40 mg PO DAILY clonazepam 0.5 mg tablet 0.5 mg PO 1XD benztropine 0.5 MG tablet 0.5 mg PO BID aspirin,buffd-calcium carb-mag 325 MG tablet 325 mg PO DAILY fluoxetine 40 mg capsule 80 mg PO DAILY Patient Comments: TK 2 CS PO QD Risperdal Consta 25 mg/2 mL suspension,extended rel recon 25 mg IM USEASDIRECTD Patient Comments: INJECT ONE SYRINGE INTRAMUSCULARLY ONCE EVERY TWO WEEKS Rx Instructions: every 2 weeks lactulose 10 gram/15 mL solution 20 g PO DIRECTED PRN Patient Comments: TAKE ONE TO TWO TABLESPOONS BY MOUTH NEEDED WHEN 3 DAYS PASS WITHOUT BOWEL MOVEMENT lorazepam 1 mg tablet 1 mg PO QID Patient Comments: TK 1 T PO QAM THEN 2 TS HS Rx Instructions: 01/03/21 1 mg in am and 2 mg at hs Reports 1 mg in am, 1 mg in afternoon, 2 mg at hs albuterol sulfate 90 mcg/actuation aerosol powdr breath activated 2 inh IH Q6H PRN (Reason: shortness of breath or wheezing) Qty: 1 0RF Nu-Mag 71.5 mg tablet,delayed release (DR/EC) 71.5 mg PO DAILY Qty: 20 0RF atenolol 50 mg tablet 75 mg PO DAILY Rx Instructions: To take with 25mg dose for TDD 75mg daily simvastatin 40 mg tablet 40 mg PO DAILY Medical Decision Making 714 -- 57-year-old male with a history of obesity, hypertension, hyperli pidemia, GERD, diabetes, hypothyroidism, anxiety, depression, schizoaffective disorder who is well-known to the emergency department with multiple frequent visits for chest and abdominal pain who presents with substernal chest pain with radiation to his left arm for the past 2 hours. EKG notes a rate of 74, sinus, normal axis, no STEMI and nondiagnostic. Blood pressure moderately hypertensive. Remainder vitals within normal limits. Patient appears comfortable and nontoxic. He has substernal and left anterior chest tenderness. Distal upper extremity pulses intact. No focal deficits. R donna of records notes that this is patient's rd visit to the emergency department in the last year for similar related complaints. Patient was seen here just 3 days ago for chest pain and had a negative cardiac work-up and was discharged back to the care bed. Patient does have multiple comorbidities so will obtain screening labs and chest xray and plan for delta troponin. Differential diagnosis includes anxiety, GERD, chest wall strain, costochondritis, ACS, pneumonia. History and presentation does not appear consistent with PE or dissection. Will give a dose of IV Toradol and Pepcid and p.o. Ativan. 0800 -- Case endorsed to Dr. Leonard to follow-up on labs and imaging and final disposition. Medical Records Medical records reviewed: Yes I reviewed the patient's medical records. ECG Data Attestation: I personally reviewed and interpreted this ECG (s) as follows: Interpretation: Rate of 74, sinus, normal axis, no STEMI. HPI General Mode of arrival: EMS . Date/Time Provider Initiated Documentation: 12/30/22 07:43 . Limitations to Documentation: no limitations . Information obtained by: patient . HPI Narrative: Patient is a 57-year-old male with a history of obesity, hypertension, hyperlipidemia, GERD, diabetes, hypothyroidism, anxiety, depression, schizoaffective disorder who is well-known to the emergency department with multiple frequent visits for chest and abdominal pain who presents with subster nal chest pain with radiation to his left arm for the past 2 hours. Patient describes the pain as constant, dull ache located in the substernal region with radiation to the left side of his chest and down his left arm. He states the pain started at rest while watching TV. He states he took his regular medications as he thought maybe anxiety was contributing but denies any relief with those. Patient admits to some dizziness and shortness of breath when getting up and ambulating. Patient denies any fever, cough, nausea, vomiting, diarrhea, leg swelling, recent travel or recent surgery. Related Data Home Medications Medication Instructions Recorded Confirmed loratadine 10 mg capsule (Claritin 1 cap PO DAILY #90 tabs 12/16/14 12/30/22 Liqui-Gel) aspirin,buffered (calcium 325 mg PO DAILY 11/18/16 12/30/22 carbonate-magnesium) 325 mg tablet benztropine 0.5 mg tablet 0.5 mg PO BID 11/18/16 12/30/22 fluoxetine 40 mg capsule 80 mg PO DAILY 10/03/20 12/30/22 lactulose 10 gram/15 mL oral 20 g PO DIRECTED PRN 10/03/20 12/30/22 solution risperidone microspheres 25 mg/2 25 mg IM USEASDIRECTD 10/03/20 12/30/22 mL intramuscular susp,ext release (Risperdal Consta) albuterol sulfate 90 mcg/actuation 2 inh inhalation Q6H PRN shortness 12/15/20 12/30/22 breath activated powder inhaler of breath or wheezing #1 ea multivitamin 1 tab PO DAILY 01/26/21 12/30/22 vitamin A 3,000 mcg (10,000 unit) 10,000 unit PO DAILY 01/26/21 12/30/22 capsule lorazepam 1 mg tablet 1 mg PO QID 07/05/21 12/30/22 chlorhexidine gluconate 0.12 % 15 ml mucous membrane BID dental 09/06/2112/30 mouthwash (Peridex) problem #473 mL gabapentin 300 mg capsule 300 mg PO TID 03/05/22 12/30/22 metformin 500 mg tablet 1 tab PO BID 03/18/22 12/30/22 omeprazole 20 mg capsule,delayed 40 mg PO DAILY 03/18/22 12/30/22 release galcanezumab-gnlm 120 mg/mL 120 mg subcut QMONTH #1 mL 04/05/22 12/30/22 subcutaneous pen injector (Emgality Pen) prochlorperazine maleate 10 mg See Rx Instructions .Route 05/02/22 12/30/22 tablet .COMPLEX #20 tabs atorvastatin 40 mg tablet 80 mg PO DAILY 06/01/22 12/30/22 sumatriptan succinate 100 mg tablet See Rx Instructions PO .COMPLEX #9 06/28/22 12/30/22 tabs magnesium chloride 71.5 mg 71.5 mg PO DAILY #20 tabs 09/05/22 12/30/22 (magnesium chloride) tablet,delayed release (Nu-Mag) atenolol 50 mg tablet 75 mg PO DAILY 09/26/22 12/30/22 simvastatin 40 mg tablet 40 mg PO DAILY 12/25/22 12/30/22 clonazepam 0.5 mg tablet 0.5 mg PO 1XD 12/27/22 12/30/22 Previous Rx's Medication Instructions Recorded albuterol sulfate 90 mcg/actuation 2 inh inhalation Q6H PRN shortness 12/15/20 breath activated powder inhaler of breath or wheezing #1 ea chlorhexidine gluconate 0.12 % 15 ml mucous membrane BID dental 09/06/21 mouthwash (Peridex) problem #473 mL galcanezumab-gnlm 120 mg/mL 120 mg subcut QMONTH #1 mL 04/05/22 subcutaneous pen injector (Emgality Pen) prochlorperazine maleate 10 mg See Rx Instructions .Route 05/02/22 tablet .COMPLEX #20 tabs sumatriptan succinate 100 mg tablet See Rx Instructions PO .COMPLEX #9 06/28/22 tabs magnesium chloride 71.5 mg 71.5 mg PO DAILY #20 tabs 09/05/22 (magnesium chloride) tablet,delayed release (Nu-Mag) Allergies Allergy/AdvReac Type Severity Reaction Status Date / Time buspirone Allergy Verified 12/30/22 07:04 paliperidone Allergy Verified 12/30/22 07:04 paroxetine HCl [From Paxil] Allergy Verified 12/30/22 07:04 sertraline Allergy Verified 12/30/22 07:04 ziprasidone [From Geodon] Allergy Other (See Verified 12/30/22 07:04 Comment) aripiprazole [From Abilify] AdvReac Intermediate INVOLUNTARY Verified 12/30/22 07:04 MUSCLE MOVEMENTS divalproex sodium AdvReac Intermediate INVOLUNTARY Verified 12/30/22 07:04 [From Depakote] MUSCLE MOVEMENTS mirtazapine AdvReac Intermediate INVOLUNTARY Verified 12/30/22 07:04 MUSCLE MOVEMENTS risperidone AdvReac Intermediate INVOLUNTARY Verified 12/30/22 07:04 MUSCLE MOVEMENTS benztropine mesylate AdvReac elevated Verified 12/30/22 07:04 [From Cogentin] blood sugars enviornmental Allergy Mild Wheezing Uncoded 12/30/22 07:04 General Stated Complaint: Chest Pain CARLOS: 2 Review of Systems All systems reviewed & are unremarkable except as noted in HPI and below Constitutional Constitutional: Reports as per HPI, Denies chills and Denies fever(s) Eyes Eyes: Denies blurry vision ENT Ears, Nose, Mouth, and Throat: Reports dizziness, Denies sore throat and Denies throat swelling Cardiovascular Cardiovascular: Reports chest pain and Denies dyspnea Respiratory Respiratory: Denies cough and Denies dyspnea Gastrointestinal Gastrointestinal: Denies abdominal pain, Denies diarrhea and Denies vomiting Genitourinary Genitourinary: Denies hematuria and Denies dysuria Musculoskeletal Musculoskeletal: Denies back pain and Denies numbness Integumentary/Breasts Skin/Breast: Denies lesions and Denies rash Neurologic Neurologic: Reports dizziness, Denies localized weakness and Denies numbness Allergic/Immunologic Allergic/Immunologic: Denies throat swelling PFSH All Active Problems (Updated 12/27/22 @ 22:41 by JORDANA Borrero) Anxiety (Chronic) Abdominal pain (Acute) Left-sided chest pain (Acute) Chest pain (Acute) Medication overuse headache (Acute) Drug-seeking behavior (Chronic ~09/20/21) Requests Ritalin from providers Broken teeth (Chronic) Anemia (Chronic) Hiatal hernia (Chronic) protonix not effective, nexium works better 02/12/18 Hypertension (Chronic) pt requests brand name Tenormin vs atenolol 04/02/18 Allergic rhinitis (Chronic) lortadine Tobacco use disorder (Chronic) started 2013 1.5 ppd, pipe 1-7/week, QUIT LATE OCT 2021 Poor dentition (Acute) Obesity (Chronic) BMI 52 Migraine (Chronic) Migraine headache without aura (Acute) Chronic headache (Acute) Chest pain (Acute) Left-sided chest wall pain (Acute) Depression (Acute 10/02/14) Diabetes mellitus type 2 in obese (Acute 09/09/14) GERD (gastroesophageal reflux disease) (Acute 09/07/14) Hypercholesterolemia (Chronic 09/07/14) pt insists on lipitor 80 mg due to family hx Hypothyroidism (acquired) (Acute 09/07/14) Schizoaffective disorder (Acute 09/07/14) Rebekah Mariscal [facility] 09/2014- [facility] inpatient Medical History Anxiety Dental caries Hyperlipidemia Mitral valve prolapse Peripheral neuropathy Trigeminal neuralgia Surgical History No significant past surgical history Family History Father Heart disease ND Social History Smoking/Tobacco Use Status: Current every day Tobacco Type: cigarettes, pipe Years: 8 Other: States equivalent to 1.5 packs cigarettes and cigars Smoking risk assessment performed?: Yes Alcohol Intake: never Drug use: Never Substance use type: does not use Adopted: No Caregiver/Support person: No Foster care: No Household members: none Housing: apartment Number of Children: 2 number of grandchildren: 1 Communication Needs: Corrective Lenses Education Level: college Do you need help understanding health information?: Always current occupation: Unemployed/Leave of absence Sexually active: No Do you think of yourself as: Decline to provide Current gender identity: male What type of physical activity do you participate in: other Details: weight lifting Frequency: 3-4 times per week Magalie/Anglican: Samaritan Seatbelt use: always Drive intox or ride w/intox wedding transportation driver: No Working smoke detector in home: Yes Fire extinguisher in home: Yes Carbon monox detector in home: Yes Do you feel safe at home: Yes (anxiety) Do you feel safe in your relationship?: Yes Exam Const General: cooperative, healthy appearing and no acute distress Orientation: alert, awake and oriented x3 HENMT Head: normal to inspection Face and sinus: normal facial exam Eyes General: appearance normal, both eyes and all related structures Pupils: PERRL EOM: EOM intact bilaterally Neck Neck: normal visual inspection and No submandibular swelling Lymphatic: no lymphadenopathy noted Chest Chest: normal inspection of the chest Chest/axillae images: 1. Tenderness to palpation to substernal and left anterior chest. There is no crepitus, edema, erythema, ecchymosis. Resp Effort & Inspection: normal respiratory effort and able to speak in complete sentences Auscultation: clear to auscultation bilaterally Cardio Rate: regular rate Rhythm: regular rhythm GI Inspection: normal to inspection and obesity Palpation: soft, not firm, not rigid and nontender Auscultation: hypoactive bowel sounds Skin General skin exam: no rashes or lesions noted Neuro General: patient alert, patient awake and patient oriented x3 Cognition: normal cognition Speech: speech normal Motor: muscle tone normal throughout Sensory Exam: no sensory deficits noted Other: Muscle strength 5/5 bilateral upper extremities. Extrem General: normal to inspection, full ROM, capillary refill normal, no calf tenderness bilaterally and no edema Other: Bilateral radial pulses intact. Psych Appearance: grossly normal Mental Status: mental status grossly normal Speech and Movement: speech and movement normal Affect: normal affect Course Vital Signs Vital signs: Vital Signs Temperature 99.3 F 12/30/22 07:01 Pulse 73 12/30/22 07:01 Respiratory Rate 14 12/30/22 07:01 Blood Pressure 155/96 H 12/30/22 07:01 Pulse Oximetry 97 12/30/22 07:01 Temperature 99.3 F 12/30/22 07:01 Temperature Source Oral 12/30/22 07:01 Pulse 72 12/30/22 07:03 Pulse 80 12/30/22 07:10 Respiratory Rate 16 12/30/22 07:10 Respiratory Effort Normal, Non-Labored 12/30/22 07:10 Respiratory Depth Normal 12/30/22 07:10 Respiratory Pattern Normal 12/30/22 07:10 Blood Pressure 155/96 H 12/30/22 07:03 Blood Pressure Mean 109 12/30/22 07:03 Blood Pressure Position Sitting 12/30/22 07:01 Pulse Oximetry 96 12/30/22 07:10 Oxygen Delivery Method Room Air 12/30/22 07:01 Oxygen Flow Rate 0 02/25/23 07:01 Pain Level 8 12/30/22 07:10
[2022-12-30] MEDS: Ketorolac 30 MG/ML VIAL IVP (07:26)
[2022-12-30] MEDS: LORazepam 1 MG TAB PO (07:26)
[2022-12-30] MEDS: Normal Saline 250 ML 500 ML IV (07:27)
[2022-12-30] MEDS: Famotidine 20 MG/2 ML VIAL IVP (07:27)
[2022-12-30 07:54] LABS: Abs Immature Grans 0.02 10^3/uL (0.0-0.06); Absolute Basophil Count 0.03 10^3/uL (0.0-0.2); Absolute Eosinophil Count 0.29 10^3/uL (0.0-0.7); Absolute Lymphocyte Count 2.31 10^3/uL (1.2-3.4); Absolute Monocyte Count 0.42 10^3/uL (0.1-0.8); Absolute Neutrophil Count 4.03 10^3/uL (1.2-6.7); Basophils % 0.4; Eosinophils % 4.1; HCT 34.6 % (40.0-50.0); HGB 11.7 g/dL (13.5-17.5); Immature Grans % 0.3; Lymphocytes % 32.5; MCH 30.1 pg (27.0-33.0); MCHC 33.8 % (32.0-36.0); MCV 89 fL (80-95); MPV 8.7 fL (8.0-11.0); Monocytes % 5.9; Neutrophils % 56.8; Platelet Count 229 10^3/uL (130-400); RBC 3.89 10^6/uL (4.36-5.78); RDW 12.4 % (11.8-14.1); RDW-SD 40.3 fL
[2022-12-30 08:08] LABS: ALT 43 U/L (16-63); AST 20 U/L (15-37); Albumin 3.4 g/dL (3.4-5.0); Alkaline Phosphatase 129 U/L (46-116); Anion Gap 5.6 mmol/L (3-11); BUN 8 mg/dL (7-18); Bilirubin, Total 0.5 mg/dL (0.2-1.0); CO2 28.4 mmol/L (21.0-32.0); CREATININE 0.9 mg/dL (0.70-1.30); Calcium 8.7 mg/dL (8.5-10.1); Chloride 99 mmol/L (98-107); Estimated GFR 99.62 (mL/min/1.73m2); Glucose 154 mg/dL (74-106); Potassium 3.7 mmol/L (3.5-5.1); Sodium 133 mmol/L (136-145); Total Protein 7.9 g/dL (6.4-8.2)
[2022-12-30 08:10] LABS: Lipase 11 U/L (16-77); Magnesium 1.8 mg/dL (1.8-2.4); Troponin I < 50 ng/L (<or=60)
--- NOTE | 2022-12-30 08:24 | DI.VRAD_ITS ---
PROCEDURE INFORMATION: Exam: XR Chest Exam date and time: 12/30/2022 7:41 AM Age: 57 years old Clinical indication: Pain; Other: Not specified TECHNIQUE: Imaging protocol: Radiologic exam of the chest. Views: 2 views. COMPARISON: CR XR CHEST 2V PA LATERAL 12/27/2022 7:32 PM FINDINGS: Lungs: Unremarkable. No consolidation. Pleural spaces: Unremarkable. No pleural effusion. No pneumothorax. Heart/Mediastinum: Unremarkable. No cardiomegaly. Bones/joints: Unremarkable. IMPRESSION: No acute findings. Dictated and Authenticated by: Karlos Amor MD. Ordering:DORENE Bartholomew MD
[2022-12-30 09:57] LABS: Troponin I < 50 ng/L (<or=60)
--- NOTE | 2022-12-30 10:08 | W.EDPROG ---
Date of service: 12/30/22 Time of Service: 10:08 Medical Decision Making Received signout from Dr. Viera. The patient's work-up was unremarkable. He is stable and appropriate for discharge. Lab Data Lab results reviewed: Yes I reviewed the patient's lab results. Labs: Laboratory Results - last 24 hr 12/30/22 12/30/22 12/30/22 07:10 07:10 07:10 WBC 7.10 RBC 3.89 L Hgb 11.7 L Hct 34.6 L MCV 89 MCH 30.1 MCHC 33.8 RDW 12.4 Plt Count 229 MPV 8.7 Immature Gran % 0.3 Neutrophils % 56.8 Lymphocytes % 32.5 Monocytes % 5.9 Eosinophils % 4.1 Basophils % 0.4 Nucleated RBC % 0.0 Absolute Neutrophils 4.03 Absolute Lymphocytes 2.31 Absolute Monocytes 0.42 Absolute Eosinophils 0.29 Absolute Basophils 0.03 Sodium 133 L Potassium 3.7 Chloride 99 Carbon Dioxide 28.4 Anion Gap 5.6 BUN 8 Creatinine 0.9 Est GFR (CKD-EPI 2020) 99.62 Glucose 154 H Calcium 8.7 Magnesium 1.8 Total Bilirubin 0.5 AST 20 ALT 43 Alkaline Phosphatase 129 H Troponin I < 50 Total Protein 7.9 Albumin 3.4 Lipase 11 L 12/30/22 09:26 WBC RBC Hgb Hct MCV MCH MCHC RDW Plt Count MPV Immature Gran % Neutrophils % Lymphocytes % Monocytes % Eosinophils % Basophils % Nucleated RBC % Absolute Neutrophils Absolute Lymphocytes Absolute Monocytes Absolute Eosinophils Absolute Basophils Sodium Potassium Chloride Carbon Dioxide Anion Gap BUN Creatinine Est GFR (CKD-EPI 2020) Glucose Calcium Magnesium Total Bilirubin AST ALT Alkaline Phosphatase Troponin I < 50 Total Protein Albumin Lipase Discharge Plan Disposition Patient Disposition: Home Condition: Improving Discharge Details Clinical Impression: Atypical chest pain Primary Care Provider: Brandon Foster ED Provider: [place] Viera Home Meds and New Rx's Prescriptions: Continued atorvastatin 40 mg tablet 80 mg PO DAILY Patient Comments: Pt reports d/c and switched to another medication chlorhexidine gluconate [Peridex] 0.12 % mouthwash 15 ml mucous membrane BID Qty: 473 5RF Rx Instructions: rinse and spit twice a day Emgality Pen 120 mg/mL pen injector 120 mg subcut QMONTH Qty: 1 11RF sumatriptan succinate 100 mg tablet See Rx Instructions PO .COMPLEX Qty: 9 5RF Rx Instructions: take 1 tab at onset of headache; if no relief, may repeat 1 tab after at least 2 hrs; max = 2 tabs/24 hrs PO Claritin Liqui-Gel 10 MG capsule 1 cap PO DAILY Qty: 90 prochlorperazine maleate 10 mg tablet See Rx Instructions .ROUTE .COMPLEX Qty: 20 5RF Dose Instruction: TAKE 1 TABLET BY MOUTH EVERY 8 HOURS NEEDED FOR NAUSEA AND VOMITING, HEADACHE Rx Instructions: TAKE 1 TABLET BY MOUTH EVERY 8 HOURS NEEDED FOR NAUSEA AND VOMITING, HEADACHE multivitamin Tablet 1 tab PO DAILY vitamin A 10,000 unit Capsule 10,000 unit PO DAILY gabapentin 300 mg capsule 300 mg PO TID metformin 500 mg tablet 1 tab PO BID omeprazole 20 mg capsule,delayed release(DR/EC) 40 mg PO DAILY clonazepam 0.5 mg tablet 0.5 mg PO 1XD benztropine 0.5 MG tablet 0.5 mg PO BID aspirin,buffd-calcium carb-mag 325 MG tablet 325 mg PO DAILY fluoxetine 40 mg capsule 80 mg PO DAILY Patient Comments: TK 2 CS PO QD Risperdal Consta 25 mg/2 mL suspension,extended rel recon 25 mg IM USEASDIRECTD Patient Comments: INJECT ONE SYRINGE INTRAMUSCULARLY ONCE EVERY TWO WEEKS Rx Instructions: every 2 weeks lactulose 10 gram/15 mL solution 20 g PO DIRECTED PRN Patient Comments: TAKE ONE TO TWO TABLESPOONS BY MOUTH NEEDED WHEN 3 DAYS PASS WITHOUT BOWEL MOVEMENT lorazepam 1 mg tablet 1 mg PO QID Patient Comments: TK 1 T PO QAM THEN 2 TS HS Rx Instructions: 01/03/21 1 mg in am and 2 mg at hs Reports 1 mg in am, 1 mg in afternoon, 2 mg at hs albuterol sulfate 90 mcg/actuation aerosol powdr breath activated 2 inh IH Q6H PRN (Reason: shortness of breath or wheezing) Qty: 1 0RF Nu-Mag 71.5 mg tablet,delayed release (DR/EC) 71.5 mg PO DAILY Qty: 20 0RF atenolol 50 mg tablet 75 mg PO DAILY Rx Instructions: To take with 25mg dose for TDD 75mg daily simvastatin 40 mg tablet 40 mg PO DAILY Discharge Instructions Instructions: Chest Pain (ED) Additional Instructions: Home to rest. Your medical work-up today was unremarkable Follow-up with your community mental health provider. Return to the emergency room for any acute concerns.
== END 2022-12-30 10:18 | disposition home or self-care (01) ==
PROVIDERS: Emergency Provider Physician Assistant; PCP Family Medicine
DX: R07.2 Precordial pain (principal); I10 Essential (primary) hypertension; E11.9 Type 2 diabetes mellitus without complications; E03.9 Hypothyroidism, unspecified; F17.210 Nicotine dependence, cigarettes, uncomplicated; Z79.82 Long term (current) use of aspirin; Z79.84 Long term (current) use of oral hypoglycemic drugs
CPT/HCPCS: 36415; 80053; 83690; 93005; 96361; 96374; 96375; 99284; 71046; 83735; 84484; 85025; 93010; 99285; J1885

== ENCOUNTER 2023-01-02 08:52 | Emergency (ER) | payer MEDICAID, SELFPAY ==
--- NOTE | 2023-01-02 08:45 | RT.EKG_ITS ---
APPROVED REPORT Exam: Resting ECG Reason for Exam: chest pain Patient Location: E HR:72 bpm ECG Measurements Heart Rate 72 AXIS MI 180 P 33 QRSd 98 QRS 11 QT 415 T 41 QTc 454 Conclusion Sinus rhythm...normal P axis, V-rate 60- 99 Narrow complex normal sinus rhythm at a rate of 72. Normal axis. Intervals within normal limits. N o ST segment abnormalities beyond mild ST segment flattening in V5 which appears slightly more pronou nced compared to prior although prior has significantly wandering baseline in V5. No ST segment abno rmalities otherwise. T wave flattening in leads III and aVL similar to prior. Prior dated earlier t his month.
[2023-01-02 08:53] VITALS: BP 135/79; PULSE 78; RESP 18; TEMP 37.3; O2SAT 96
--- NOTE | 2023-01-02 08:56 | W.ED.GENAD ---
Discharge Plan Disposition Patient Disposition: Home Discharge Details Clinical Impression: Left-sided chest pain Primary Care Provider: Brandon Foster ED Provider: Avery Causey [place] Meds and New Rx's Prescriptions: Continued atorvastatin 40 mg tablet 80 mg PO DAILY Patient Comments: Pt reports d/c and switched to another medication chlorhexidine gluconate [Peridex] 0.12 % mouthwash 15 ml mucous membrane BID Qty: 473 5RF Rx Instructions: rinse and spit twice a day Emgality Pen 120 mg/mL pen injector 120 mg subcut QMONTH Qty: 1 11RF sumatriptan succinate 100 mg tablet See Rx Instructions PO .COMPLEX Qty: 9 5RF Rx Instructions: take 1 tab at onset of headache; if no relief, may repeat 1 tab after at least 2 hrs; max = 2 tabs/24 hrs PO Claritin Liqui-Gel 10 MG capsule 1 cap PO DAILY Qty: 90 prochlorperazine maleate 10 mg tablet See Rx Instructions .ROUTE .COMPLEX Qty: 20 5RF Dose Instruction: TAKE 1 TABLET BY MOUTH EVERY 8 HOURS NEEDED FOR NAUSEA AND VOMITING, HEADACHE Rx Instructions: TAKE 1 TABLET BY MOUTH EVERY 8 HOURS NEEDED FOR NAUSEA AND VOMITING, HEADACHE multivitamin Tablet 1 tab PO DAILY vitamin A 10,000 unit Capsule 10,000 unit PO DAILY gabapentin 300 mg capsule 300 mg PO TID metformin 500 mg tablet 1 tab PO BID omeprazole 20 mg capsule,delayed release(DR/EC) 40 mg PO DAILY clonazepam 0.5 mg tablet 0.5 mg PO 1XD benztropine 0.5 MG tablet 0.5 mg PO BID aspirin,buffd-calcium carb-mag 325 MG tablet 325 mg PO DAILY fluoxetine 40 mg capsule 80 mg PO DAILY Patient Comments: TK 2 CS PO QD Risperdal Consta 25 mg/2 mL suspension,extended rel recon 25 mg IM USEASDIRECTD Patient Comments: INJECT ONE SYRINGE INTRAMUSCULARLY ONCE EVERY TWO WEEKS Rx Instructions: every 2 weeks lactulose 10 gram/15 mL solution 20 g PO DIRECTED PRN Patient Comments: TAKE ONE TO TWO TABLESPOONS BY MOUTH NEEDED WHEN 3 DAYS PASS WITHOUT BOWEL MOVEMENT lorazepam 1 mg tablet 1 mg PO QID Patient Comments: TK 1 T PO QAM THEN 2 TS HS Rx Instructions: 01/03/21 1 mg in am and 2 mg at hs Reports 1 mg in am, 1 mg in afternoon, 2 mg at hs albuterol sulfate 90 mcg/actuation aerosol powdr breath activated 2 inh IH Q6H PRN (Reason: shortness of breath or wheezing) Qty: 1 0RF Nu-Mag 71.5 mg tablet,delayed release (DR/EC) 71.5 mg PO DAILY Qty: 20 0RF atenolol 50 mg tablet 75 mg PO DAILY Rx Instructions: To take with 25mg dose for TDD 75mg daily simvastatin 40 mg tablet 40 mg PO DAILY Discharge Instructions Instructions: Chest Pain (ED) Additional Instructions: Please read all of the information that accompanies these instructions. You were seen in the emergency department for your chest pain. Your blood work showed no sign of heart attack. Please schedule an appointment with your primary care provider later this week. Please return to the emergency department if you develop worsening chest pain or any sweating with your pain. Discharge Data Discharge Date/Time-TO BE ENTERED AT DEPARTURE: 01/02/23 10:49 Medical Decision Making This is a 51-year-old normothermic and not tachycardic 57-year-old male with history of hyperlipidemia and frequent emergency department visits now with left-sided chest pain that began approximately 3 hours ago concerning for ACS. Will obtain an ECG and a troponin. Of note patient has frequent emergency visits and based on the duration of his symptoms and his nonischemic ECG if his troponin is negative anticipate being reassured from an ACS perspective. He denies cough and fever so doubt pneumonia. No tearing quality to his pain to suggest aortic dissection. I considered PE however his pain is not pleuritic he does not feel short of breath and is not hypoxic or tachycardic so I did not order a D-dimer as he is having no calf pain. No vomiting to suggest esophageal rupture. No rash to suggest zoster. No recent falls to suggest pneumothorax. No hypotension in dialysis patient to suggest tamponade. Will reassess following labs ECG and two-view chest x-ray. 10:30 AM Labs reassuring with no signs of JESS. Mild normocytic anemia similar to prior. Troponin negative. Will discharge with an empiric trial of expectant outpatient management. HPI General Date/Time Provider Initiated Documentation: 01/02/23 08:56. HPI Narrative: This is 57-year-old male with a history of obesity, hypertension, hyperlipidemia, GERD, diabetes, hypothyroidism, anxiety, depression, schizoaffective disorder who is well-known to the emergency department with multiple frequent visits for chest and abdominal pain?now arriving to the emergency department with left lung pain. Patient was reportedly in the shower this morning approximately 3 hours ago when he became anxious and developed pain in his left lung. He has never had a PE nor DVT. He denies shortness of breath. He has not been vomiting. He is not having any cough nor any fevers. He is a daily tobacco user but denies routine ethanol. He denies a rash to his chest. He denies any recent falls. He reports that this feels similar to prior episodes of pain. He is not a dialysis patient. Related Data Home Medications Medication Instructions Recorded Confirmed loratadine 10 mg capsule (Claritin 1 cap PO DAILY #90 tabs 12/16/14 12/30/22 Liqui-Gel) aspirin,buffered (calcium 325 mg PO DAILY 11/18/16 12/30/22 carbonate-magnesium) 325 mg tablet benztropine 0.5 mg tablet 0.5 mg PO BID 11/18/16 12/30/22 fluoxetine 40 mg capsule 80 mg PO DAILY 10/03/20 12/30/22 lactulose 10 gram/15 mL oral 20 g PO DIRECTED PRN 10/03/20 12/30/22 solution risperidone microspheres 25 mg/2 25 mg IM USEASDIRECTD 10/03/20 12/30/22 mL intramuscular susp,ext release (Risperdal Consta) albuterol sulfate 90 mcg/actuation 2 inh inhalation Q6H PRN shortness 12/15/20 12/30/22 breath activated powder inhaler of breath or wheezing #1 ea multivitamin 1 tab PO DAILY 01/26/21 12/30/22 vitamin A 3,000 mcg (10,000 unit) 10,000 unit PO DAILY 01/26/21 12/30/22 capsule lorazepam 1 mg tablet 1 mg PO QID 07/05/21 12/30/22 chlorhexidine gluconate 0.12 % 15 ml mucous membrane BID dental 09/06/21 12/30/22 mouthwash (Peridex) problem #473 mL gabapentin 300 mg capsule 300 mg PO TID 03/05/22 12/30/22 metformin 500 mg tablet 1 tab PO BID 03/18/22 12/30/22 omeprazole 20 mg capsule,delayed 40 mg PO DAILY 03/18/22 12/30/22 release galcanezumab-gnlm 120 mg/mL 120 mg subcut QMONTH #1 mL 04/05/22 12/30/22 subcutaneous pen injector (Emgality Pen) prochlorperazine maleate 10 mg See Rx Instructions .Route 05/02/22 12/30/22 tablet .COMPLEX #20 tabs atorvastatin 40 mg tablet 80 mg PO DAILY 06/01/22 12/30/22 sumatriptan succinate 100 mg tablet See Rx Instructions PO .COMPLEX #9 06/28/22 12/30/22 tabs magnesium chloride 71.5 mg 71.5 mg PO DAILY #20 tabs 09/05/22 12/30/22 (magnesium chloride) tablet,delayed release (Nu-Mag) atenolol 50 mg tablet 75 mg PO DAILY 09/26/22 12/30/22 simvastatin 40 mg tablet 40 mg PO DAILY 12/25/22 12/30/22 clonazepam 0.5 mg tablet 0.5 mg PO 1XD 12/27/22 12/30/22 Previous Rx's Medication Instructions Recorded albuterol sulfate 90 mcg/actuation 2 inh inhalation Q6H PRN shortness 12/15/20 breath activated powder inhaler of breath or wheezing #1 ea chlorhexidine gluconate 0.12 % 15 ml mucous membrane BID dental 09/06/21 mouthwash (Peridex) problem #473 mL galcanezumab-gnlm 120 mg/mL 120 mg subcut QMONTH #1 mL 04/05/22 subcutaneous pen injector (Emgality Pen) prochlorperazine maleate 10 mg See Rx Instructions .Route 05/02/22 tablet .COMPLEX #20 tabs sumatriptan succinate 100 mg tablet See Rx Instructions PO .COMPLEX #9 06/28/22 tabs magnesium chloride 71.5 mg 71.5 mg PO DAILY #20 tabs 09/05/22 (magnesium chloride) tablet,delayed release (Nu-Mag) Allergies Allergy/AdvReac Type Severity Reaction Status Date / Time buspirone Allergy Verified 12/30/22 07:04 paliperidone Allergy Verified 12/30/22 07:04 paroxetine HCl [From Paxil] Allergy Verified 12/30/22 07:04 sertraline Allergy Verified 12/30/22 07:04 ziprasidone [From Geodon] Allergy Other (See Verified 12/30/22 07:04 Comment) aripiprazole [From Abilify] AdvReac Intermediate INVOLUNTARY Verified 12/30/22 07:04 MUSCLE MOVEMENTS divalproex sodium AdvReac Intermediate INVOLUNTARY Verified 12/30/22 07:04 [From Depakote] MUSCLE MOVEMENTS mirtazapine AdvReac Intermediate INVOLUNTARY Verified 12/30/22 07:04 MUSCLE MOVEMENTS risperidone AdvReac Intermediate INVOLUNTARY Verified 12/30/22 07:04 MUSCLE MOVEMENTS benztropine mesylate AdvReac elevated Verified 12/30/22 07:04 [From Cogentin] blood sugars enviornmental Allergy Mild Wheezing Uncoded 12/30/22 07:04 General CARLOS: 2 PFSH All Active Problems (Updated 01/02/23 @ 09:09 by Avery Causey MD) Abdominal pain (Acute) Left-sided chest pain (Acute) Chest pain (Acute) Atypical chest pain (Acute) Left-sided chest pain (Acute) Medication overuse headache (Acute) Drug-seeking behavior (Chronic ~09/20/21) Requests Ritalin from providers Broken teeth (Chronic) Anemia (Chronic) Hiatal hernia (Chronic) protonix not effective, nexium works better 02/12/18 Hypertension (Chronic) pt requests brand name Tenormin vs atenolol 04/02/18 Allergic rhinitis (Chronic) lortadine Tobacco use disorder (Chronic) started 2013 1.5 ppd, pipe 1-7/week, QUIT LATE OCT 2021 Poor dentition (Acute) Obesity (Chronic) BMI 52 Migraine (Chronic) Migraine headache without aura (Acute) Chronic headache (Acute) Chest pain (Acute) Left-sided chest wall pain (Acute) Depression (Acute 10/02/14) Diabetes mellitus type 2 in obese (Acute 09/09/14) GERD (gastroesophageal reflux disease) (Acute 09/07/14) Hypercholesterolemia (Chronic 09/07/14) pt insists on lipitor 80 mg due to family hx Hypothyroidism (acquired) (Acute 09/07/14) Schizoaffective disorder (Acute 09/07/14) FREDDIE Thakkar 09/2014- [facility] inpatient Medical History Anxiety Dental caries Hyperlipidemia Mitral valve prolapse Peripheral neuropathy Trigeminal neuralgia Surgical History No significant past surgical history Family History Father Heart disease [place] Social History Smoking/Tobacco Use Status: Current every day Tobacco Type: cigarettes, pipe Years: 8 Other: States equivalent to 1.5 packs cigarettes and cigars Smoking risk assessment performed?: Yes Alcohol Intake: never Drug use: Never Substance use type: does not use Adopted: No Caregiver/Support person: No Foster care: No Household members: none Housing: apartment Number of Children: 2 number of grandchildren: 1 Communication Needs: Corrective Lenses Education Level: college Do you need help understanding health information?: Always current occupation: Unemployed/Leave of absence Sexually active: No Do you think of yourself as: Decline to provide Current gender identity: male What type of physical activity do you participate in: other Details: weight lifting Frequency: 3-4 times per week Magalie/Mandaen: [employer] Seatbelt use: always Drive intox or ride w/intox 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 Head: Normocephalic, atraumatic Ear, nose, mouth, throat: Grossly normal inspection. Normal voice, handling secretions normally. Neck: Trachea midline. Cardiovascular: Well-perfused distal extremities. Regular rate and rhythm. Chest wall: No rash to the chest wall. Respiratory: Nonlabored respiration. Clear lungs bilaterally. Gastrointestinal: Nondistended abdomen. Musculoskeletal: No edema. Moving all 4 extremities spontaneously. Skin: Normal for age and race, grossly normal temperature and turgor. No acute rash. Neurologic: Alert and appropriate, no apparent acute deficits. Psychiatric: Mood and manner are appropriate. Grooming and personal hygiene are appropriate.
--- NOTE | 2023-01-02 09:34 | NUR.NOTE ---
Nursing Note: patient took home medications. cheri salgado MD
[2023-01-02 09:51] LABS: HCT 34.3 % (40.0-50.0); HGB 11.6 g/dL (13.5-17.5); MCH 29.9 pg (27.0-33.0); MCHC 33.8 % (32.0-36.0); MCV 88 fL (80-95); MPV 8.2 fL (8.0-11.0); Platelet Count 218 10^3/uL (130-400); RBC 3.88 10^6/uL (4.36-5.78); RDW 12.4 % (11.8-14.1); RDW-SD 40.3 fL; WBC 6.73 10^3/uL (4.4-10.8)
--- NOTE | 2023-01-02 09:55 | NUR.NOTE ---
Nursing Note:Report recieved, pt currently in DI for ordered exams, when pt returns will carry out orders for EKG, labs, IV & do assessment, provider aware.
--- NOTE | 2023-01-02 10:00 | DI.RAD_ITS ---
Exam(s) XR CHEST 2V PA LATERAL EXAM: XR CHEST 2V PA LATERAL CLINICAL HISTORY: Left-sided chest pain. TECHNIQUE: 2D digital imaging was performed. COMPARISON: CR,XR XR CHEST 2V PA LATERAL from 12/30/2022 FINDINGS: 2 views: Heart size is normal. The mediastinum is not widened. Lungs are clear. No infiltrates nor pleural effusions. IMPRESSION: No acute pulmonary findings. DATA REPOSITORY: RADIATION DOSE DELIVERED:
[2023-01-02 10:10] LABS: Anion Gap 7.9 mmol/L (3-11); BUN 7 mg/dL (7-18); CO2 28.1 mmol/L (21.0-32.0); CREATININE 0.8 mg/dL (0.70-1.30); Calcium 9.2 mg/dL (8.5-10.1); Chloride 100 mmol/L (98-107); Estimated GFR 103.22 (mL/min/1.73m2); Glucose 162 mg/dL (74-106); Potassium 4.1 mmol/L (3.5-5.1); Sodium 136 mmol/L (136-145); Troponin I < 50 ng/L (<or=60)
[2023-01-02 10:15] VITALS: RESP 18
[2023-01-02 10:39] VITALS: BP 136/71; PULSE 78; RESP 16; TEMP 37; O2SAT 95
== END 2023-01-02 10:49 | disposition home or self-care (01) ==
PROVIDERS: Emergency Provider Emergency Medicine; PCP Family Medicine
DX: R07.9 Chest pain, unspecified (principal); D64.9 Anemia, unspecified; I10 Essential (primary) hypertension; E03.9 Hypothyroidism, unspecified; E11.9 Type 2 diabetes mellitus without complications; Z79.82 Long term (current) use of aspirin; Z79.84 Long term (current) use of oral hypoglycemic drugs
CPT/HCPCS: 36415; 80048; 85027; 93005; 99283; 71046; 84484; 93010; 99285

== ENCOUNTER 2023-01-06 12:07 | Emergency (ER) | payer MEDICAID, SELFPAY ==
--- NOTE | 2023-01-06 12:00 | DI.CT_ITS ---
Exam(s) CT CHEST PE CTA EXAM: CT CHEST PE CTA CLINICAL HISTORY: Chest pain, shortness of breath. TECHNIQUE: Imaging Protocol: CT angiography of the chest was performed using pulmonary embolus ely col. Multi planar reconstructions were performed. CONTRAST MATERIAL: Intravenous: Omnipaque 350 Contrast volume: 100 cc COMPARISON: CT CT ABDOMEN PELVIS W from 12/19/2022 FINDINGS: CHEST: PULMONARY ARTERIES: There are no intraluminal filling defects to suggest acute pulmonary emboli. LUNGS: There are no infiltrates nor evidence of pulmonary infarction.. There are no pleural effusions . Tiny 1 millimeter calcified granuloma noted in the posterior basal segment left lower lobe. No om inous pulmonary nodules. MEDIASTINUM: There is no hilar nor mediastinal adenopathy. Visualized thyroid unremarkable. CARDIAC: Heart size is upper normal. There is no pericardial effusion.Caliber of the thoracic aorta is within normal limits. There is no significant shift of the interventricular septum. PARTIALLY VISUALIZED UPPERMOST ABDOMEN: No obvious findings OSSEOUS: No significant osseous lesions.No fractures.. IMPRESSION: 1. No evidence of acute pulmonary emboli. No evidence of pulmonary infarction.No pleural effusions. No infiltrates. No intrathoracic adenopathy. RADIATION DOSE DELIVERED: 723.37mGy.cm Total DLP DATA REPOSITORY: All CT scans at this facility are submitted to the National Radiology Data Registry (NRDR) Dose Index Registry (DIR) with the [employer] (ACR). RADIATION OPTIMIZATION: All CT scans at this facility use at least one of these dose optimization te chniques: automated exposure control; mA and/or kV adjustment per patient size (includes targeted exa ms where dose is matched to clinical indication); or iterative reconstruction.
--- NOTE | 2023-01-06 12:00 | RT.EKG_ITS ---
APPROVED REPORT Exam: Resting ECG Reason for Exam: Chest pain Patient Location: E HR:82 bpm ECG Measurements Heart Rate 82 AXIS KS 164 P 36 QRSd 107 QRS 37 QT 399 T 32 QTc 468 Conclusion Sinus rhythm...normal P axis, V-rate 60- 99 sinus rhythm, normal axis, normal intervals, non ischemic
[2023-01-06 12:09] VITALS: BP 175/89; PULSE 90; RESP 18; TEMP 36.8; O2SAT 99
--- NOTE | 2023-01-06 12:16 | W.ED.GENAD ---
Discharge Plan Disposition Patient Disposition: Home Discharge Details Clinical Impression: Left-sided chest wall pain Primary Care Provider: Brandon Foster ED Provider: Karlos Vasquez Home Meds and New Rx's Prescriptions: Continued chlorhexidine gluconate [Peridex] 0.12 % mouthwash 15 ml mucous membrane BID Qty: 473 5RF Rx Instructions: rinse and spit twice a day Emgality Pen 120 mg/mL pen injector 120 mg subcut QMONTH Qty: 1 11RF sumatriptan succinate 100 mg tablet See Rx Instructions PO .COMPLEX Qty: 9 5RF Rx Instructions: take 1 tab at onset of headache; if no relief, may repeat 1 tab after at least 2 hrs; max = 2 tabs/24 hrs PO Claritin Liqui-Gel 10 MG capsule 1 cap PO DAILY Qty: 90 prochlorperazine maleate 10 mg tablet See Rx Instructions .ROUTE .COMPLEX Qty: 20 5RF Dose Instruction: TAKE 1 TABLET BY MOUTH EVERY 8 HOURS NEEDED FOR NAUSEA AND VOMITING, HEADACHE Rx Instructions: TAKE 1 TABLET BY MOUTH EVERY 8 HOURS NEEDED FOR NAUSEA AND VOMITING, HEADACHE multivitamin Tablet 1 tab PO DAILY vitamin A 10,000 unit Capsule 10,000 unit PO DAILY gabapentin 300 mg capsule 300 mg PO TID metformin 500 mg tablet 1 tab PO BID omeprazole 20 mg capsule,delayed release(DR/EC) 40 mg PO DAILY clonazepam 0.5 mg tablet 0.5 mg PO 1XD benztropine 0.5 MG tablet 0.5 mg PO BID aspirin,buffd-calcium carb-mag 325 MG tablet 325 mg PO DAILY fluoxetine 40 mg capsule 80 mg PO DAILY Patient Comments: TK 2 CS PO QD Risperdal Consta 25 mg/2 mL suspension,extended rel recon 25 mg IM USEASDIRECTD Patient Comments: INJECT ONE SYRINGE INTRAMUSCULARLY ONCE EVERY TWO WEEKS Rx Instructions: every 2 weeks lactulose 10 gram/15 mL solution 20 g PO DIRECTED PRN Patient Comments: TAKE ONE TO TWO TABLESPOONS BY MOUTH NEEDED WHEN 3 DAYS PASS WITHOUT BOWEL MOVEMENT lorazepam 1 mg tablet 1 mg PO QID Patient Comments: TK 1 T PO QAM THEN 2 TS HS Rx Instructions: 01/03/21 1 mg in am and 2 mg at hs Reports 1 mg in am, 1 mg in afternoon, 2 mg at hs albuterol sulfate 90 mcg/actuation aerosol powdr breath activated 2 inh IH Q6H PRN (Reason: shortness of breath or wheezing) Qty: 1 0RF Nu-Mag 71.5 mg tablet,delayed release (DR/EC) 71.5 mg PO DAILY Qty: 20 0RF atenolol 50 mg tablet 75 mg PO DAILY Rx Instructions: To take with 25mg dose for TDD 75mg daily simvastatin 40 mg tablet 40 mg PO DAILY Discontinued atorvastatin 40 mg tablet 80 mg PO DAILY Patient Comments: Pt reports d/c and switched to another medication Discharge Instructions Instructions: Chest Pain (ED) Additional Instructions: At this time your work-up is unremarkable and no findings were noted for emergent causes of your chest pain. You have stated clear understanding of your risk factors that could indicate a potential cardiac source and have chosen to leave prior to repeat blood testing. You have also had multiple visits this week with similar work-ups and no findings noted. Due to this you have been placed on a referral to your primary care provider for further testing and evaluation on outpatient basis. If you develop new or worsening symptoms feel free to return the emergency department for reassessment. Referrals: Brandon Foster [Primary Care Provider] - 1 week Discharge Data Discharge Date/Time-TO BE ENTERED AT DEPARTURE: 01/06/23 14:14 Medical Decision Making Patient presenting to the emergency department for chief complaint of chest pain/lung pain. Patient states while at rest couple hours prior to arrival he started having left-sided chest pain with some radiation down the left arm. He states that he has some shortness of breath with this pain and felt generalized weakness briefly upon standing. Patient denies all other symptoms. Physical exam is unremarkable. Patient does have significant past medical history of mitral valve prolapse, hyperlipidemia anxiety, diabetes,. Patient has been seen in the emergency department multiple times over the past couple weeks for similar complaint with negative work-up. Given that I do not see any CT imaging of the chest performed will perform CT imaging of the chest along with troponin and standard labs. We will also perform EKG. I have high suspicion that this may be anxiety related given multiple visits with negative work-ups in the past. Please see physician interpretation for full interpretation of EKG but patient appears in sinus rhythm, rate of 82 no acute findings to suggest STEMI. Review of patient's labs show a anemia that is chronic and unchanged, CMP shows BUN of 4, elevated glucose at 235, magnesium 1.7. Troponin is negative. We will replete magnesium with p.o. magnesium pending CT imaging results. Reviewed CT imaging and patient has no acute abnormalities as per radiologist interpretation. Discussed findings with patient. After discussion of this with patient patient states that he wants to be discharged home and does not want to have further testing repeated. Patient does clearly state understanding of his cardiac risk factors along with return precautions. Patient placed upon follow-up with primary care provider given that he has multiple visits to the emergency department for similar complaint with negative work-ups. After discussion of diagnosis and plan of care patient has no further needs, questions, or concerns and states clear understanding to return to the emergency department for any worsening symptoms. This documentation was generated using OneTrueFanation system, please disregard any oddities of phrase or misspellings. Medical Records Medical records reviewed: Yes I reviewed the patient's medical records. Medical records narrative: Reviewed previous ER visits and work-up Imaging Data Radiologic Study: Attestation: I personally reviewed and interpreted this imaging study as follows: Imaging: CT Scan Radiologist's impression: Exam(s) PROCEDURE INFORMATION: Exam: CTA Chest With Contrast Exam date and time: 01/06/2023 12:49 PM Age: 57 years old Clinical indication: Pain; Shortness of breath; On breathing TECHNIQUE: Imaging protocol: Computed tomographic angiography of the chest with contrast. 3D rendering (Not supervised by radiologist): MIP and/or 3D reconstructed images were created by the technologist. COMPARISON: CT CHEST PE CTA 05/17/2022 1:34 PM FINDINGS: Pulmonary arteries: Normal. No pulmonary emboli. Aorta: Unremarkable. No aortic aneurysm. No aortic dissection. Lungs: Unremarkable. No consolidation. No masses. Pleural spaces: Unremarkable. No pneumothorax. No pleural effusion. Heart: Unremarkable. No cardiomegaly. No pericardial effusion. Coronary arteries: There is no coronary artery calcification. Lymph nodes: Unremarkable. No enlarged lymph nodes. Bones/joints: Unremarkable. No acute fracture. Soft tissues: Unremarkable. IMPRESSION: No acute abnormality. Lab Data Lab results reviewed: Yes I reviewed the patient's lab results. HPI General Mode of arrival: EMS. Date/Time Provider Initiated Documentation: 01/06/23 12:09. Limitations to Documentation: no limitations. Information obtained by: patient, EMS and RN notes reviewed. History of Present Illness 57 year old M presents to the emergency department with the chief complaint of Chest pain, described as moderate and severe, with intensity rated at 9. Quality is described as sharp, and is localized to the chest. Patient extremity. Patient started experiencing this hour(s) (2) and it has been constant. No relieving factors improve symptom(s), No exacerbating factors reported (Started while at rest) . Patient notes no other symptoms.. Patient did receive the following treatments prior to arrival, none Related Data Home Medications Medication Instructions Recorded Confirmed loratadine 10 mg capsule (Claritin 1 cap PO DAILY #90 tabs 12/16/14 01/06/23 Liqui-Gel) aspirin,buffered (calcium 325 mg PO DAILY 11/18/16 01/06/23 carbonate-magnesium) 325 mg tablet benztropine 0.5 mg tablet 0.5 mg PO BID 11/18/16 01/06/23 fluoxetine 40 mg capsule 80 mg PO DAILY 10/03/20 01/06/23 lactulose 10 gram/15 mL oral 20 g PO DIRECTED PRN 10/03/20 01/06/23 solution risperidone microspheres 25 mg/2 25 mg IM USEASDIRECTD 10/03/20 01/06/23 mL intramuscular susp,ext release (Risperdal Consta) albuterol sulfate 90 mcg/actuation 2 inh inhalation Q6H PRN shortness 12/15/20 01/06/23 breath activated powder inhaler of breath or wheezing #1 ea multivitamin 1 tab PO DAILY 01/26/21 01/06/23 vitamin A 3,000 mcg (10,000 unit) 10,000 unit PO DAILY 01/26/21 01/06/23 capsule lorazepam 1 mg tablet 1 mg PO QID 07/05/21 01/06/23 chlorhexidine gluconate 0.12 % 15 ml mucous membrane BID dental 09/06/21 01/06/23 mouthwash (Peridex) problem #473 mL gabapentin 300 mg capsule 300 mg PO TID 03/05/22 01/06/23 metformin 500 mg tablet 1 tab PO BID 03/18/22 01/06/23 omeprazole 20 mg capsule,delayed 40 mg PO DAILY 03/18/22 01/06/23 release galcanezumab-gnlm 120 mg/mL 120 mg subcut QMONTH #1 mL 04/05/22 01/06/23 subcutaneous pen injector (Emgality Pen) prochlorperazine maleate 10 mg See Rx Instructions .Route 05/02/22 01/06/23 tablet .COMPLEX #20 tabs sumatriptan succinate 100 mg tablet See Rx Instructions PO .COMPLEX #9 06/28/22 01/06/23 tabs magnesium chloride 71.5 mg 71.5 mg PO DAILY #20 tabs 09/05/22 01/06/23 (magnesium chloride) tablet,delayed release (Nu-Mag) atenolol 50 mg tablet 75 mg PO DAILY 09/26/22 01/06/23 simvastatin 40 mg tablet 40 mg PO DAILY 12/25/22 01/06/23 clonazepam 0.5 mg tablet 0.5 mg PO 1XD 12/27/22 01/06/23 Previous Rx's Medication Instructions Recorded albuterol sulfate 90 mcg/actuation 2 inh inhalation Q6H PRN shortness 12/15/20 breath activated powder inhaler of breath or wheezing #1 ea chlorhexidine gluconate 0.12 % 15 ml mucous membrane BID dental 09/06/21 mouthwash (Peridex) problem #473 mL galcanezumab-gnlm 120 mg/mL 120 mg subcut QMONTH #1 mL 04/05/22 subcutaneous pen injector (Emgality Pen) prochlorperazine maleate 10 mg See Rx Instructions .Route 05/02/22 tablet .COMPLEX #20 tabs sumatriptan succinate 100 mg tablet See Rx Instructions PO .COMPLEX #9 06/28/22 tabs magnesium chloride 71.5 mg 71.5 mg PO DAILY #20 tabs 09/05/22 (magnesium chloride) tablet,delayed release (Nu-Mag) Allergies Allergy/AdvReac Type Severity Reaction Status Date / Time buspirone Allergy Verified 01/06/23 12:43 paliperidone Allergy Verified 01/06/23 12:43 paroxetine HCl [From Paxil] Allergy Verified 01/06/23 12:43 sertraline Allergy Verified 01/06/23 12:43 ziprasidone [From Geodon] Allergy Other (See Verified 01/06/23 12:43 Comment) aripiprazole [From Abilify] AdvReac Intermediate INVOLUNTARY Verified 01/06/23 12:43 MUSCLE MOVEMENTS divalproex sodium AdvReac Intermediate INVOLUNTARY Verified 01/06/23 12:43 [From Depakote] MUSCLE MOVEMENTS mirtazapine AdvReac Intermediate INVOLUNTARY Verified 01/06/23 12:43 MUSCLE MOVEMENTS risperidone AdvReac Intermediate INVOLUNTARY Verified 01/06/23 12:43 MUSCLE MOVEMENTS benztropine mesylate AdvReac elevated Verified 01/06/23 12:43 [From Cogentin] blood sugars enviornmental Allergy Mild Wheezing Uncoded 01/06/23 12:43 General Stated Complaint: RespSymp CARLOS: 3 Review of Systems Constitutional Constitutional: Denies chills and Denies fever(s) Cardiovascular Cardiovascular: Reports as per HPI, Reports chest pain, Reports chest pain at rest, Denies chest pain with activity, Denies syncope, Denies edema, Denies leg edema and Reports dyspnea Respiratory Respiratory: Denies cough and Reports dyspnea Gastrointestinal Gastrointestinal: Denies abdominal pain, Denies nausea and Denies vomiting Musculoskeletal Musculoskeletal: Reports muscle weakness (States brief episode this morning) Integumentary/Breasts Skin/Breast: Denies rash Neurologic Neurologic: Denies syncope PFSH All Active Problems (Updated 01/06/23 @ 14:06 by Karlos Vasquez NP) Abdominal pain (Acute) Left-sided chest pain (Acute) Chest pain (Acute) Atypical chest pain (Acute) Left-sided chest pain (Acute) Medication overuse headache (Acute) Drug-seeking behavior (Chronic ~09/20/21) Requests Ritalin from providers Broken teeth (Chronic) Anemia (Chronic) Hiatal hernia (Chronic) protonix not effective, nexium works better 02/12/18 Hypertension (Chronic) pt requests brand name Tenormin vs atenolol 04/02/18 Allergic rhinitis (Chronic) lortadine Tobacco use disorder (Chronic) started 2013 1.5 ppd, pipe 1-7/week, QUIT LATE OCT 2021 Poor dentition (Acute) Obesity (Chronic) BMI 52 Migraine (Chronic) Migraine headache without aura (Acute) Chronic headache (Acute) Chest pain (Acute) Left-sided chest wall pain (Acute) Depression (Acute 10/02/14) Diabetes mellitus type 2 in obese (Acute 09/09/14) GERD (gastroesophageal reflux disease) (Acute 09/07/14) Hypercholesterolemia (Chronic 09/07/14) pt insists on lipitor 80 mg due to family hx Hypothyroidism (acquired) (Acute 09/07/14) Schizoaffective disorder (Acute 09/07/14) Rebekah Davey [facility] 09/2014- COUNTS INCLUDE 234 BEDS AT THE [facility] inpatient Medical History Anxiety Dental caries Hyperlipidemia Mitral valve prolapse Peripheral neuropathy Trigeminal neuralgia Surgical History No significant past surgical history Family History Father Heart disease [place] Social History Smoking/Tobacco Use Status: Current every day Tobacco Type: cigarettes, pipe Years: 8 Other: States equivalent to 1.5 packs cigarettes and cigars Smoking risk assessment performed?: Yes Alcohol Intake: never Drug use: Never Substance use type: does not use Adopted: No Caregiver/Support person: No Foster care: No Household members: none Housing: apartment Number of Children: 2 number of grandchildren: 1 Communication Needs: Corrective Lenses Education Level: college Do you need help understanding health information?: Always current occupation: Unemployed/Leave of absence Sexually active: No Do you think of yourself as: Decline to provide Current gender identity: male What type of physical activity do you participate in: other Details: weight lifting Frequency: 3-4 times per week Magalie/Holiness: Temple Seatbelt use: always Drive intox or ride w/intox local [place] 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: No Working smoke detector in home: Yes Fire extinguisher in home: Yes Carbon monox detector in home: Yes Do you feel safe at home: Yes (anxiety) Do you feel safe in your relationship?: Yes Exam Const General: cooperative, healthy appearing, comfortable, no acute distress, not diaphoretic and not ill appearing Nutritional Appearance: average body habitus Orientation: alert, awake and oriented x3 Limitations: mental status not altered Neck Neck: normal visual inspection, full ROM, trachea midline, supple and no anterior neck swelling Chest Chest: normal inspection of the chest Resp Effort & Inspection: normal respiratory effort and able to speak in complete sentences Auscultation: clear to auscultation bilaterally Cardio Jugular venous pressure: no JVD Palpation: normal PMI Rate: regular rate Rhythm: regular rhythm Heart Sounds: S1 normal, S2 normal, no click, no gallops and no murmurs Pulses: radial pulses present bilaterally 2+ and posterior tibial pulses present GI Inspection: large pannus and obesity Skin General skin exam: no rashes or lesions noted Neuro General: patient alert, patient awake, patient oriented x3, tone normal and moves all extremities Course Vital Signs Vital signs: Vital Signs Temperature 36.8 C 01/06/23 12:09 Pulse 90 01/06/23 12:09 Respiratory Rate 18 01/06/23 12:09 Blood Pressure 175/89 H 01/06/23 12:09 Pulse Oximetry 99 01/06/23 12:09 Temperature 36.8 C 01/06/23 12:09 Temperature Source Oral 01/06/23 12:09 Pulse 90 01/06/23 12:09 Respiratory Rate 18 01/06/23 12:09 Respiratory Effort Normal, Non-Labored 01/06/23 12:09 Blood Pressure 175/89 H 01/06/23 12:09 Pulse Oximetry 99 01/06/23 12:09 Oxygen Delivery Method Room Air 01/06/23 12:09 Oxygen Flow Rate 0 01/06/23 12:09
[2023-01-06 12:21] LABS: Abs Immature Grans 0.02 10^3/uL (0.0-0.06); Absolute Basophil Count 0.03 10^3/uL (0.0-0.2); Absolute Eosinophil Count 0.27 10^3/uL (0.0-0.7); Absolute Monocyte Count 0.46 10^3/uL (0.1-0.8); Basophils % 0.3; Eosinophils % 3.1; HCT 35.6 % (40.0-50.0); HGB 11.8 g/dL (13.5-17.5); Immature Grans % 0.2; Lymphocytes % 26.2; MCH 29.8 pg (27.0-33.0); MCHC 33.1 % (32.0-36.0); MCV 90 fL (80-95); MPV 8.6 fL (8.0-11.0); Monocytes % 5.2; Platelet Count 197 10^3/uL (130-400); RBC 3.96 10^6/uL (4.36-5.78); RDW 12.4 % (11.8-14.1); RDW-SD 40.6 fL; WBC 8.78 10^3/uL (4.4-10.8)
[2023-01-06] MEDS: ACETAMINOPHEN 1,000 MG/100 ML BTL 400 MG IVPB (12:27)
[2023-01-06] MEDS: Lidocaine 5% Patch 1 PATCH TP (12:28)
[2023-01-06] MEDS: LORazepam 2 MG/ML VIAL 0.5 MG IVP (12:29)
[2023-01-06 12:46] LABS: ALT 30 U/L (16-63); AST 16 U/L (15-37); Albumin 3.5 g/dL (3.4-5.0); Alkaline Phosphatase 109 U/L (46-116); Anion Gap 6.2 mmol/L (3-11); BUN 4 mg/dL (7-18); Bilirubin, Total 0.4 mg/dL (0.2-1.0); CO2 29.8 mmol/L (21.0-32.0); CREATININE 0.8 mg/dL (0.70-1.30); Calcium 8.8 mg/dL (8.5-10.1); Chloride 101 mmol/L (98-107); Estimated GFR 103.22 (mL/min/1.73m2); Glucose 235 mg/dL (74-106); Magnesium 1.7 mg/dL (1.8-2.4); Potassium 3.6 mmol/L (3.5-5.1); Sodium 137 mmol/L (136-145); Total Protein 7.9 g/dL (6.4-8.2); Troponin I < 50 ng/L (<or=60)
[2023-01-06] MEDS: Omnipaque 350 MG/ML 100 ML BTL IJ (12:57)
[2023-01-06] MEDS: Normal Saline - Diluent 50 ML VIAL IJ (12:58)
--- NOTE | 2023-01-06 13:30 | DI.VRAD_ITS ---
PROCEDURE INFORMATION: Exam: CTA Chest With Contrast Exam date and time: 01/06/2023 12:49 PM Age: 57 years old Clinical indication: Pain; Shortness of breath; On breathing TECHNIQUE: Imaging protocol: Computed tomographic angiography of the chest with contrast. 3D rendering (Not supervised by radiologist): MIP and/or 3D reconstructed images were created by the technologist. COMPARISON: CT CHEST PE CTA 05/17/2022 1:34 PM FINDINGS: Pulmonary arteries: Normal. No pulmonary emboli. Aorta: Unremarkable. No aortic aneurysm. No aortic dissection. Lungs: Unremarkable. No consolidation. No masses. Pleural spaces: Unremarkable. No pneumothorax. No pleural effusion. Heart: Unremarkable. No cardiomegaly. No pericardial effusion. Coronary arteries: There is no coronary artery calcification. Lymph nodes: Unremarkable. No enlarged lymph nodes. Bones/joints: Unremarkable. No acute fracture. Soft tissues: Unremarkable. IMPRESSION: No acute abnormality. Dictated and Authenticated by: Betty Buchanan MD. Ordering:LYNETTE Everett MD
--- NOTE | 2023-01-06 14:12 | NUR.NOTE ---
Nursing Note: Referral given to Care Management for PCP out of area, for multiple visits to ED for chest pain with negative workups/within 1 week.
== END 2023-01-06 14:14 | disposition home or self-care (01) ==
PROVIDERS: Emergency Provider Nurse Practitioner Family; PCP Family Medicine
DX: R07.89 Other chest pain (principal); M79.602 Pain in left arm; R06.02 Shortness of breath; R53.1 Weakness; E11.65 Type 2 diabetes mellitus with hyperglycemia; D64.9 Anemia, unspecified; Z79.84 Long term (current) use of oral hypoglycemic drugs
CPT/HCPCS: 71275; 80053; 93005; 96365; 96375; 99285; 83735; 84484; 85025; 85610; 85730; 93010; J0131; J2060; J3490

== ENCOUNTER 2023-01-09 20:49 | Emergency (ER) | payer MEDICAID, SELFPAY ==
--- NOTE | 2023-01-09 21:00 | RT.EKG_ITS ---
APPROVED REPORT Exam: Resting ECG Reason for Exam: Chest pain Patient Location: E HR:75 bpm ECG Measurements Heart Rate 75 AXIS MD 186 P 30 QRSd 96 QRS 12 QT 400 T 14 QTc 448 Conclusion Sinus rhythm...normal P axis, V-rate 60- 99 Physician: notable artifact, no stemi
[2023-01-09 21:09] VITALS: BP 147/81; PULSE 80; RESP 18; TEMP 36.6
--- NOTE | 2023-01-09 21:30 | DI.RAD_ITS ---
Exam(s) XR CHEST 2V PA LATERAL EXAM: XR CHEST 2V PA LATERAL CLINICAL HISTORY: Chest Pain TECHNIQUE: 2D digital imaging was performed. COMPARISON: CT CT CHEST PE CTA from 01/06/2023 FINDINGS: Exam somewhat limited by under penetration. HEART: Normal size. Aorta: Not dilated. PULMONARY VASCULATURE: Normal. LUNGS: Clear. PLEURAL SPACE: No pleural effusion or pneumothorax. BONE:Unremarkable for age. IMPRESSION: No acute abnormality. DATA REPOSITORY: RADIATION DOSE DELIVERED:
--- NOTE | 2023-01-09 21:33 | W.ED.GENAD ---
Discharge Plan Disposition Patient Disposition: Home Discharge Details Clinical Impression: Left-sided chest wall pain Primary Care Provider: Brandon Foster ED Provider: Fang Eubanks Home Meds and New Rx's Prescriptions: Continued chlorhexidine gluconate [Peridex] 0.12 % mouthwash 15 ml mucous membrane BID Qty: 473 5RF Rx Instructions: rinse and spit twice a day Emgality Pen 120 mg/mL pen injector 120 mg subcut QMONTH Qty: 1 11RF sumatriptan succinate 100 mg tablet See Rx Instructions PO .COMPLEX Qty: 9 5RF Rx Instructions: take 1 tab at onset of headache; if no relief, may repeat 1 tab after at least 2 hrs; max = 2 tabs/24 hrs PO Claritin Liqui-Gel 10 MG capsule 1 cap PO DAILY Qty: 90 prochlorperazine maleate 10 mg tablet See Rx Instructions .ROUTE .COMPLEX Qty: 20 2RF Dose Instruction: TAKE 1 TABLET BY MOUTH EVERY 8 HOURS NEEDED FOR NAUSEA AND VOMITING, HEADACHE Rx Instructions: TAKE 1 TABLET BY MOUTH EVERY 8 HOURS NEEDED FOR NAUSEA AND VOMITING, HEADACHE multivitamin Tablet 1 tab PO DAILY vitamin A 10,000 unit Capsule 10,000 unit PO DAILY gabapentin 300 mg capsule 300 mg PO TID metformin 500 mg tablet 1 tab PO BID omeprazole 20 mg capsule,delayed release(DR/EC) 40 mg PO DAILY clonazepam 0.5 mg tablet 0.5 mg PO 1XD benztropine 0.5 MG tablet 0.5 mg PO BID aspirin,buffd-calcium carb-mag 325 MG tablet 325 mg PO DAILY fluoxetine 40 mg capsule 80 mg PO DAILY Patient Comments: TK 2 CS PO QD Risperdal Consta 25 mg/2 mL suspension,extended rel recon 25 mg IM USEASDIRECTD Patient Comments: INJECT ONE SYRINGE INTRAMUSCULARLY ONCE EVERY TWO WEEKS Rx Instructions: every 2 weeks lactulose 10 gram/15 mL solution 20 g PO DIRECTED PRN Patient Comments: TAKE ONE TO TWO TABLESPOONS BY MOUTH NEEDED WHEN 3 DAYS PASS WITHOUT BOWEL MOVEMENT lorazepam 1 mg tablet 1 mg PO QID Patient Comments: TK 1 T PO QAM THEN 2 TS HS Rx Instructions: 01/03/21 1 mg in am and 2 mg at hs Reports 1 mg in am, 1 mg in afternoon, 2 mg at hs albuterol sulfate 90 mcg/actuation aerosol powdr breath activated 2 inh IH Q6H PRN (Reason: shortness of breath or wheezing) Qty: 1 0RF Nu-Mag 71.5 mg tablet,delayed release (DR/EC) 71.5 mg PO DAILY Qty: 20 0RF atenolol 50 mg tablet 75 mg PO DAILY Rx Instructions: To take with 25mg dose for TDD 75mg daily simvastatin 40 mg tablet 40 mg PO DAILY Discharge Instructions Instructions: Chest Wall Pain (ED) Additional Instructions: Follow up with primary care provider in 3-5 days. Return to ED sooner if any worsening or concerns. Increase oral fluids. No evidence of heart attack, EKG within normal limits, chest x-ray shows no acute findings. Please take Tylenol or Ibuprofen with food every 4-6 hours as needed for pain and swelling. Referrals: Brandon Foster [Primary Care Provider] - 3 days Medical Decision Making 57-year-old male presents to the ER via EMS who is well-known to the department with chief complaint of left-sided chest pain which radiates into his left arm, he reports that it started around 2 this afternoon. He does have a past medical history of hyperlipidemia, mitral valve prolapse, peripheral neuropathy, schizoaffective disorder, hypothyroidism, type 2 diabetes, obesity, hypertension trigeminal neuralgia, anxiety. He is a smoker. He denies coughing or fever or any other associated symptoms. He was seen here in the ER 3 days ago and had extensive work-up including a chest CT which was within normal limits and negative for any acute abnormality. EKG ordered, single troponin and chest x-ray. Patient had extensive work-up 3 days ago to repeat more extensive labs and imaging is not warranted at this time. Cardiac troponin less than 50 within normal limits. Chest x-ray within normal limits. Patient discharged to home. This text was generated using [employer] system, please disregard any oddities of phrase or misspellings. Medical Records Medical records reviewed: Yes I reviewed the patient's medical records. Lab Data Lab results reviewed: Yes I reviewed the patient's lab results. Labs: Laboratory Tests Range/Units 01/09/23 21:30 Troponin I (<or=60) ng/L < 50 HPI General Mode of arrival: EMS. Date/Time Provider Initiated Documentation: 01/09/23 20:49. Limitations to Documentation: no limitations. Information obtained by: patient, RN notes reviewed and old records reviewed. HPI Narrative: 57-year-old male presents to the ER via EMS who is well-known to the department with chief complaint of left-sided chest pain which radiates into his left arm, he reports that it started around 2 this afternoon. He does have a past medical history of hyperlipidemia, mitral valve prolapse, peripheral neuropathy, schizoaffective disorder, hypothyroidism, type 2 diabetes, obesity, hypertension trigeminal neuralgia, anxiety. He is a smoker. He denies coughing or fever or any other associated symptoms. He was seen here in the ER 3 days ago and had extensive work-up including a chest CT which was within normal limits and negative for any acute abnormality. Related Data Home Medications Medication Instructions Recorded Confirmed loratadine 10 mg capsule (Claritin 1 cap PO DAILY #90 tabs 12/16/14 01/06/23 Liqui-Gel) aspirin,buffered (calcium 325 mg PO DAILY 11/18/16 01/06/23 carbonate-magnesium) 325 mg tablet benztropine 0.5 mg tablet 0.5 mg PO BID 11/18/16 01/06/23 fluoxetine 40 mg capsule 80 mg PO DAILY 10/03/20 01/06/23 lactulose 10 gram/15 mL oral 20 g PO DIRECTED PRN 10/03/20 01/06/23 solution risperidone microspheres 25 mg/2 25 mg IM USEASDIRECTD 10/03/20 01/06/23 mL intramuscular susp,ext release (Risperdal Consta) albuterol sulfate 90 mcg/actuation 2 inh inhalation Q6H PRN shortness 12/15/20 01/06/23 breath activated powder inhaler of breath or wheezing #1 ea multivitamin 1 tab PO DAILY 01/26/21 01/06/23 vitamin A 3,000 mcg (10,000 unit) 10,000 unit PO DAILY 01/26/21 01/06/23 capsule lorazepam 1 mg tablet 1 mg PO QID 07/05/21 01/06/23 chlorhexidine gluconate 0.12 % 15 ml mucous membrane BID dental 09/06/21 01/06/23 mouthwash (Peridex) problem #473 mL gabapentin 300 mg capsule 300 mg PO TID 03/05/22 01/06/23 metformin 500 mg tablet 1 tab PO BID 03/18/22 01/06/23 omeprazole 20 mg capsule,delayed 40 mg PO DAILY 03/18/22 01/06/23 release galcanezumab-gnlm 120 mg/mL 120 mg subcut QMONTH #1 mL 04/05/22 01/06/23 subcutaneous pen injector (Emgality Pen) sumatriptan succinate 100 mg tablet See Rx Instructions PO .COMPLEX #9 06/28/22 01/06/23 tabs magnesium chloride 71.5 mg 71.5 mg PO DAILY #20 tabs 09/05/22 01/06/23 (magnesium chloride) tablet,delayed release (Nu-Mag) atenolol 50 mg tablet 75 mg PO DAILY 09/26/22 01/06/23 simvastatin 40 mg tablet 40 mg PO DAILY 12/25/22 01/06/23 clonazepam 0.5 mg tablet 0.5 mg PO 1XD 12/27/22 01/06/23 prochlorperazine maleate 10 mg See Rx Instructions .Route 01/08/23 tablet .COMPLEX #20 tabs Previous Rx's Medication Instructions Recorded albuterol sulfate 90 mcg/actuation 2 inh inhalation Q6H PRN shortness 12/15/20 breath activated powder inhaler of breath or wheezing #1 ea chlorhexidine gluconate 0.12 % 15 ml mucous membrane BID dental 09/06/21 mouthwash (Peridex) problem #473 mL galcanezumab-gnlm 120 mg/mL 120 mg subcut QMONTH #1 mL 04/05/22 subcutaneous pen injector (Emgality Pen) sumatriptan succinate 100 mg tablet See Rx Instructions PO .COMPLEX #9 06/28/22 tabs magnesium chloride 71.5 mg 71.5 mg PO DAILY #20 tabs 09/05/22 (magnesium chloride) tablet,delayed release (Nu-Mag) prochlorperazine maleate 10 mg See Rx Instructions .Route 01/08/23 tablet .COMPLEX #20 tabs Allergies Allergy/AdvReac Type Severity Reaction Status Date / Time buspirone Allergy Verified 01/06/23 12:43 paliperidone Allergy Verified 01/06/23 12:43 paroxetine HCl [From Paxil] Allergy Verified 01/06/23 12:43 sertraline Allergy Verified 01/06/23 12:43 ziprasidone [From Geodon] Allergy Other (See Verified 01/06/23 12:43 Comment) aripiprazole [From Abilify] AdvReac Intermediate INVOLUNTARY Verified 01/06/23 12:43 MUSCLE MOVEMENTS divalproex sodium AdvReac Intermediate INVOLUNTARY Verified 01/06/23 12:43 [From Depakote] MUSCLE MOVEMENTS mirtazapine AdvReac Intermediate INVOLUNTARY Verified 01/06/23 12:43 MUSCLE MOVEMENTS risperidone AdvReac Intermediate INVOLUNTARY Verified 01/06/23 12:43 MUSCLE MOVEMENTS benztropine mesylate AdvReac elevated Verified 01/06/23 12:43 [From Cogentin] blood sugars enviornmental Allergy Mild Wheezing Uncoded 01/06/23 12:43 General Stated Complaint: Chest/Rib CARLOS: 3 Review of Systems All systems reviewed & are unremarkable except as noted in HPI and below Cardiovascular Cardiovascular: Reports chest pain and Denies dyspnea Respiratory Respiratory: Denies dyspnea PFSH All Active Problems (Updated 01/09/23 @ 22:09 by Fang Eubanks NP) Abdominal pain (Acute) Left-sided chest pain (Acute) Chest pain (Acute) Atypical chest pain (Acute) Left-sided chest pain (Acute) Medication overuse headache (Acute) Drug-seeking behavior (Chronic ~09/20/21) Requests Ritalin from providers Broken teeth (Chronic) Anemia (Chronic) Hiatal hernia (Chronic) protonix not effective, nexium works better 02/12/18 Hypertension (Chronic) pt requests brand name Tenormin vs atenolol 04/02/18 Allergic rhinitis (Chronic) lortadine Tobacco use disorder (Chronic) started 2013 1.5 ppd, pipe 1-7/week, QUIT LATE OCT 2021 Poor dentition (Acute) Obesity (Chronic) BMI 52 Migraine (Chronic) Migraine headache without aura (Acute) Chronic headache (Acute) Chest pain (Acute) Left-sided chest wall pain (Acute) Depression (Acute 10/02/14) Diabetes mellitus type 2 in obese (Acute 09/09/14) GERD (gastroesophageal reflux disease) (Acute 09/07/14) Hypercholesterolemia (Chronic 09/07/14) pt insists on lipitor 80 mg due to family hx Hypothyroidism (acquired) (Acute 09/07/14) Schizoaffective disorder (Acute 09/07/14) FREDDIE Thakkar 09/2014- [facility] inpatient Medical History Anxiety Dental caries Hyperlipidemia Mitral valve prolapse Peripheral neuropathy Trigeminal neuralgia Surgical History No significant past surgical history Family History Father Heart disease [place] Social History Smoking/Tobacco Use Status: Current every day Tobacco Type: cigarettes, pipe Years: 8 Other: States equivalent to 1.5 packs cigarettes and cigars Smoking risk assessment performed?: Yes Alcohol Intake: never Drug use: Never Substance use type: does not use Adopted: No Caregiver/Support person: No Foster care: No Household members: none Housing: apartment Number of Children: 2 number of grandchildren: 1 Communication Needs: Corrective Lenses Education Level: college Do you need help understanding health information?: Always current occupation: Unemployed/Leave of absence Sexually active: No Do you think of yourself as: Decline to provide Current gender identity: male What type of physical activity do you participate in: other Details: weight lifting Frequency: 3-4 times per week Magalie/Voodoo: [employer] Seatbelt use: always Drive intox or ride w/intox rolloff driver: No Working smoke detector in home: Yes Fire extinguisher in home: Yes Carbon monox detector in home: Yes Do you feel safe at home: Yes (anxiety) Do you feel safe in your relationship?: Yes Exam Narrative Exam Narrative: Constitutional: Alert and oriented x3. Appears stated age. Normal body habitus. Head: Normocephalic, no trauma. Eyes: Pupils PERRL, Red reflex noted, EOM's intact. Eyelids symmetrical without lesions, discharge, or swelling. ENT: Bilateral TM's WNL, External ear normal to inspection, no mastoid TTP, swelling, or erythema, Nasal turbinates WNL, no nasal discharge. Normal dentition, Posterior pharynx WNL, no exudate. Chest: RRR, Normal S1, S2, distal pulses intact. Resp: Lungs clear to auscultation bilaterally, no wheezes, rales, or rhonchi. Abdomen: Soft, non-distended, Normoactive bowel sounds all 4 quads. Musculoskeletal: Normal gait, 5/5 strength to all four extremities. Skin: No suspicious rashes or lesions. Capillary refill less than 2 sec. Neurologic: Cranial nerves II-XII intact. Alert and oriented x 3. Motor: No deficits noted. Sensory: Intact bilaterally all 4 extremities. Reflexes: DTR's intact bilaterally.. Hematologic/Lymphatic: No ecchymosis, no lymphadenopathy. Course Vital Signs Vital signs: Vital Signs Temperature 36.6 C 01/09/23 21:09 Pulse 80 01/09/23 21:09 Respiratory Rate 18 01/09/23 21:09 Blood Pressure 147/81 H 01/09/23 21:09 Temperature 36.6 C 01/09/23 21:09 Temperature Source Temporal Artery Scan 01/09/23 21:09 Pulse 80 01/09/23 21:09 Respiratory Rate 18 01/09/23 21:09 Respiratory Effort Normal 01/09/23 21:14 Blood Pressure 147/81 H 01/09/23 21:09 Blood Pressure Position Sitting 01/09/23 21:09 Oxygen Delivery Method Room Air 01/09/23 21:09 Oxygen Flow Rate 0 01/09/23 21:09
[2023-01-09 22:05] LABS: Troponin I < 50 ng/L (<or=60)
--- NOTE | 2023-01-09 22:09 | DI.VRAD_ITS ---
PROCEDURE INFORMATION: Exam: XR Chest Exam date and time: 01/09/2023 9:44 PM Age: 57 years old Clinical indication: Other: Chest pain TECHNIQUE: Imaging protocol: Radiologic exam of the chest. Views: 2 views. COMPARISON: CR XR CHEST 2V PA LATERAL 01/02/2023 9:49 AM FINDINGS: Lungs: Unremarkable. No consolidation. Pleural spaces: Unremarkable. No pleural effusion. No pneumothorax. Heart/Mediastinum: Unremarkable. No cardiomegaly. Bones/joints: Unremarkable. IMPRESSION: No acute findings. Dictated and Authenticated by: Henri Heck MD. Ordering:YOLY Headley MD
[2023-01-09 22:47] VITALS: BP 125/63; PULSE 75; RESP 18; O2SAT 96
--- NOTE | 2023-01-11 07:53 | NUR.NOTE ---
Nursing Note: Accessed chart to determine orders for EKG and to determine whether or not one needs to be cancelled. EKG needs to be read.
== END 2023-01-09 22:44 | disposition home or self-care (01) ==
PROVIDERS: Emergency Provider Registered Nurse Emergency; PCP Family Medicine
DX: R07.89 Other chest pain (principal); E11.9 Type 2 diabetes mellitus without complications; F17.210 Nicotine dependence, cigarettes, uncomplicated
CPT/HCPCS: 36415; 93005; 99283; 99284; 71046; 84484; 93010

== ENCOUNTER 2023-01-13 16:08 | Emergency (ER) | payer MEDICAID, SELFPAY ==
[2023-01-13 16:03] VITALS: BP 188/82; PULSE 95; RESP 22; TEMP 37.3; O2SAT 96
--- NOTE | 2023-01-13 16:59 | ED.GENADUL_ITS ---
Discharge Plan Disposition Patient Disposition: Home Condition: Stable Discharge Details Chief Complaint: Headache Clinical Impression: Headache Primary Care Provider: Brandon Foster ED Provider: Lb Cordero Home Meds and New Rx's Prescriptions: No Action chlorhexidine gluconate [Peridex] 0.12 % mouthwash 15 ml mucous membrane BID Qty: 473 5RF Rx Instructions: rinse and spit twice a day Emgality Pen 120 mg/mL pen injector 120 mg subcut QMONTH Qty: 1 11RF sumatriptan succinate 100 mg tablet See Rx Instructions PO .COMPLEX Qty: 9 5RF Rx Instructions: take 1 tab at onset of headache; if no relief, may repeat 1 tab after at least 2 hrs; max = 2 tabs/24 hrs PO Claritin Liqui-Gel 10 MG capsule 1 cap PO DAILY Qty: 90 prochlorperazine maleate 10 mg tablet See Rx Instructions .ROUTE .COMPLEX Qty: 20 2RF Dose Instruction: TAKE 1 TABLET BY MOUTH EVERY 8 HOURS NEEDED FOR NAUSEA AND VOMITING, HEADACHE Rx Instructions: TAKE 1 TABLET BY MOUTH EVERY 8 HOURS NEEDED FOR NAUSEA AND VOMITING, HEADACHE multivitamin Tablet 1 tab PO DAILY vitamin A 10,000 unit Capsule 10,000 unit PO DAILY gabapentin 300 mg capsule 300 mg PO TID metformin 500 mg tablet 1 tab PO BID omeprazole 20 mg capsule,delayed release(DR/EC) 40 mg PO DAILY clonazepam 0.5 mg tablet 0.5 mg PO 1XD benztropine 0.5 MG tablet 0.5 mg PO BID aspirin,buffd-calcium carb-mag 325 MG tablet 325 mg PO DAILY fluoxetine 40 mg capsule 80 mg PO DAILY Patient Comments: TK 2 CS PO QD Risperdal Consta 25 mg/2 mL suspension,extended rel recon 25 mg IM USEASDIRECTD Patient Comments: INJECT ONE SYRINGE INTRAMUSCULARLY ONCE EVERY TWO WEEKS Rx Instructions: every 2 weeks lactulose 10 gram/15 mL solution 20 g PO DIRECTED PRN Patient Comments: TAKE ONE TO TWO TABLESPOONS BY MOUTH NEEDED WHEN 3 DAYS PASS WITHOUT BOWEL MOVEMENT lorazepam 1 mg tablet 1 mg PO QID Patient Comments: TK 1 T PO QAM THEN 2 TS HS Rx Instructions: 01/03/21 1 mg in am and 2 mg at hs Reports 1 mg in am, 1 mg in afternoon, 2 mg at hs albuterol sulfate 90 mcg/actuation aerosol powdr breath activated 2 inh IH Q6H PRN (Reason: shortness of breath or wheezing) Qty: 1 0RF Nu-Mag 71.5 mg tablet,delayed release (DR/EC) 71.5 mg PO DAILY Qty: 20 0RF atenolol 50 mg tablet 75 mg PO DAILY Rx Instructions: To take with 25mg dose for TDD 75mg daily simvastatin 40 mg tablet 40 mg PO DAILY Discharge Instructions Instructions: General Headache (ED) Additional Instructions: Please take your medications as prescribed. Please follow with your primary care physician and neurology. Medical Decision Making 57-year-old male history of chronic current headaches presents with gradual onset occipital headache rating into his neck. Neurologically intact afebrile nontoxic, mildly hypertensive in arrival however likely due to discomfort. Nonmeningeal interactive ambulatory. Patient took a sumatriptan shortly before arrival. High clinical suspicion for migraine versus tension headache low suspicion for intracranial hemorrhage, very low suspicion for infectious process such as meningeal encephalitis. No evidence of CVA TIA or altered mental status. Will treat symptomatically. Patient will follow closely with his primary neurologist. HPI General Date/Time Provider Initiated Documentation: 01/13/23 16:11 . HPI Narrative: 57-year-old male history of recurrent headaches, presents with gradual onset occipital headache and mild neck pain. No fevers no chills no nausea no vomiting. Follows with Dr. Alexis of neurology. Related Data Home Medications Medication Instructions Recorded Confirmed loratadine 10 mg capsule (Claritin 1 cap PO DAILY #90 tabs 12/16/14 01/06/23 Liqui-Gel) aspirin,buffered (calcium 325 mg PO DAILY 11/18/16 01/06/23 carbonate-magnesium) 325 mg tablet benztropine 0.5 mg tablet 0.5 mg PO BID 11/18/16 01/06/23 fluoxetine 40 mg capsule 80 mg PO DAILY 10/03/20 01/06/23 lactulose 10 gram/15 mL oral 20 g PO DIRECTED PRN 10/03/20 01/06/23 solution risperidone microspheres 25 mg/2 25 mg IM USEASDIRECTD 10/03/20 01/06/23 mL intramuscular susp,ext release (Risperdal Consta) albuterol sulfate 90 mcg/actuation 2 inh inhalation Q6H PRN shortness 12/15/20 01/06/23 breath activated powder inhaler of breath or wheezing #1 ea multivitamin 1 tab PO DAILY 01/26/21 01/06/23 vitamin A 3,000 mcg (10,000 unit) 10,000 unit PO DAILY 01/26/21 01/06/23 capsule lorazepam 1 mg tablet 1 mg PO QID 07/05/21 01/06/23 chlorhexidine gluconate 0.12 % 15 ml mucous membrane BID dental 09/06/21 01/06/23 mouthwash (Peridex) problem #473 mL gabapentin 300 mg capsule 300 mg PO TID 03/05/22 01/06/23 metformin 500 mg tablet 1 tab PO BID 03/18/22 01/06/23 omeprazole 20 mg capsule,delayed 40 mg PO DAILY 03/18/22 01/06/23 release galcanezumab-gnlm 120 mg/mL 120 mg subcut QMONTH #1 mL 04/05/22 01/06/23 subcutaneous pen injector (Emgality Pen) sumatriptan succinate 100 mg tablet See Rx Instructions PO .COMPLEX #9 06/28/22 01/06/23 tabs magnesium chloride 71.5 mg 71.5 mg PO DAILY #20 tabs 09/05/22 01/06/23 (magnesium chloride) tablet,delayed release (Nu-Mag) atenolol 50 mg tablet 75 mg PO DAILY 09/26/22 01/06/23 simvastatin 40 mg tablet 40 mg PO DAILY 12/25/22 01/06/23 clonazepam 0.5 mg tablet 0.5 mg PO 1XD 12/27/22 01/06/23 prochlorperazine maleate 10 mg See Rx Instructions .Route 01/08/23 tablet .COMPLEX #20 tabs Previous Rx's Medication Instructions Recorded albuterol sulfate 90 mcg/actuation 2 inh inhalation Q6H PRN shortness 12/15/20 breath activated powder inhaler of breath or wheezing #1 ea chlorhexidine gluconate 0.12 % 15 ml mucous membrane BID dental 09/06/21 mouthwash (Peridex) problem #473 mL galcanezumab-gnlm 120 mg/mL 120 mg subcut QMONTH #1 mL 04/05/22 subcutaneous pen injector (Emgality Pen) sumatriptan succinate 100 mg tablet See Rx Instructions PO .COMPLEX #9 06/28/22 tabs magnesium chloride 71.5 mg 71.5 mg PO DAILY #20 tabs 09/05/22 (magnesium chloride) tablet,delayed release (Nu-Mag) prochlorperazine maleate 10 mg See Rx Instructions .Route 01/08/23 tablet .COMPLEX #20 tabs Allergies Allergy/AdvReac Type Severity Reaction Status Date / Time buspirone Allergy Verified 01/13/23 16:45 paliperidone Allergy Verified 01/13/23 16:45 paroxetine HCl [From Paxil] Allergy Verified 01/13/23 16:45 sertraline Allergy Verified 01/13/23 16:45 ziprasidone [From Geodon] Allergy Other (See Verified 01/13/23 16:45 Comment) aripiprazole [From Abilify] AdvReac Intermediate INVOLUNTARY Verified 01/13/23 16:45 MUSCLE MOVEMENTS divalproex sodium AdvReac Intermediate INVOLUNTARY Verified 01/13/23 16:45 [From Depakote] MUSCLE MOVEMENTS mirtazapine AdvReac Intermediate INVOLUNTARY Verified 01/13/23 16:45 MUSCLE MOVEMENTS risperidone AdvReac Intermediate INVOLUNTARY Verified 01/13/23 16:45 MUSCLE MOVEMENTS benztropine mesylate AdvReac elevated Verified 01/13/23 16:45 [From Cogentin] blood sugars enviornmental Allergy Mild Wheezing Uncoded 01/13/23 16:45 General Stated Complaint: Headache CARLOS: 3 Review of Systems Narrative: Review of Systems Constitutional: negative Eyes: negative ENT: negative Cardiovascular: negative Respiratory: negative Gastrointestinal: negative : negative Musculoskeletal: negative Skin: negative Neurologic: Headache Psych: negative PFSH All Active Problems (Updated 01/13/23 @ 17:02 by Lb Cordero MD) Abdominal pain (Acute) Left-sided chest pain (Acute) Chest pain (Acute) Atypical chest pain (Acute) Left-sided chest pain (Acute) Headache (Acute) Medication overuse headache (Acute) Drug-seeking behavior (Chronic ~09/20/21) Requests Ritalin from providers Broken teeth (Chronic) Anemia (Chronic) Hiatal hernia (Chronic) protonix not effective, nexium works better 02/12/18 Hypertension (Chronic) pt requests brand name Tenormin vs atenolol 04/02/18 Allergic rhinitis (Chronic) lortadine Tobacco use disorder (Chronic) started 2013 1.5 ppd, pipe 1-7/week, QUIT LATE OCT 2021 Poor dentition (Acute) Obesity (Chronic) BMI 52 Migraine (Chronic) Migraine headache without aura (Acute) Chronic headache (Acute) Chest pain (Acute) Left-sided chest wall pain (Acute) Depression (Acute 10/02/14) Diabetes mellitus type 2 in obese (Acute 09/09/14) GERD (gastroesophageal reflux disease) (Acute 09/07/14) Hypercholesterolemia (Chronic 09/07/14) pt insists on lipitor 80 mg due to family hx Hypothyroidism (acquired) (Acute 09/07/14) Schizoaffective disorder (Acute 09/07/14) Rebekah Mariscal [facility] 09/2014- [facility] inpatient Medical History Anxiety Dental caries Hyperlipidemia Mitral valve prolapse Peripheral neuropathy Trigeminal neuralgia Surgical History No significant past surgical history Family History Father Heart disease [place] Social History Smoking/Tobacco Use Status: Current every day Tobacco Type: cigarettes, pipe Years: 8 Other: States equivalent to 1.5 packs cigarettes and cigars Smoking risk assessment performed?: Yes Alcohol Intake: never Drug use: Never Substance use type: does not use Adopted: No Caregiver/Support person: No Foster care: No Household members: none Housing: apartment Number of Children: 2 number of grandchildren: 1 Communication Needs: Corrective Lenses Education Level: college Do you need help understanding health information?: Always current occupation: Unemployed/Leave of absence Sexually active: No Do you think of yourself as: Decline to provide Current gender identity: male What type of physical activity do you participate in: other Details: weight lifting Frequency: 3-4 times per week Magalie/Religious: Baptism Seatbelt use: always Drive intox or ride w/intox stage driver: No Working smoke detector in home: Yes Fire extinguisher in home: Yes Carbon monox detector in home: Yes Do you feel safe at home: Yes (anxiety) Do you feel safe in your relationship?: Yes Exam Narrative Exam Narrative: Physical Examination General: alert, awake, cooperative, resting comfortably, no acute distress HEENT: normocephalic, atraumatic; PERRL, EOM intact, conjunctiva normal; no nasal discharge; moist mucous membranes, oral and pharyngeal mucosa normal, tolerating secretions Neck: supple, trachea midline; full ROM Chest: normal to inspection Respiratory: normal respiratory effort, speaking in full sentences, clear to auscultation, no wheezing, rales or rhonchi Cardiac: regular rate, regular rhythm, S1S2 intact, no murmurs rubs or gallops GI: abdomen soft, non-tender, non-distended; no palpable mass or hepatosplenomegaly Skin: no lesions, rashes or trauma appreciated Neuro: AAOx3, normal speech, moving all extremities; strength intact, no ataxia Extremities: Moving all extremities, ambulatory Psych: Appropriate mood and affect Course Vital Signs Vital signs: Vital Signs Temperature 37.3 C 01/13/23 16:03 Pulse 95 H 01/13/23 16:03 Respiratory Rate 22 01/13/23 16:03 Blood Pressure 188/82 H 01/13/23 16:03 Pulse Oximetry 96 01/13/23 16:03 Temperature 37.3 C 01/13/23 16:03 Temperature Source Oral 01/13/23 16:03 Pulse 95 H 01/13/23 16:03 Respiratory Rate 22 01/13/23 16:03 Blood Pressure 188/82 H 01/13/23 16:03 Blood Pressure Position Sitting 01/13/23 16:03 Pulse Oximetry 96 01/13/23 16:03 Oxygen Delivery Method Room Air 01/13/23 16:03 Oxygen Flow Rate 0 01/13/23 16:03 Pain Level 9 01/13/23 16:03
[2023-01-13] MEDS: Ketorolac 15 MG/ML VIAL IM (17:05)
[2023-01-13] MEDS: Dexamethasone 10 MG/ML VIAL IVP (17:05)
[2023-01-13 17:06] VITALS: BP 117/87; PULSE 80; RESP 18; O2SAT 97
== END 2023-01-13 17:13 | disposition home or self-care (01) ==
PROVIDERS: Emergency Provider Emergency Medicine; PCP Family Medicine
DX: R51.9 Headache, unspecified (principal)
CPT/HCPCS: 96372; 96374; 99284; 99283; J1100; J1885

== ENCOUNTER 2023-01-18 10:09 | Emergency (ER) | payer MEDICAID, SELFPAY ==
[2023-01-18] VITALS (18 sets, daily range): BP systolic 118–131; BP diastolic 56–61; PULSE 69–83; RESP 13–21; O2SAT 94–98
--- NOTE | 2023-01-18 10:00 | RT.EKG_ITS ---
APPROVED REPORT Exam: Resting ECG Reason for Exam: chest pain Patient Location: E HR:79 bpm ECG Measurements Heart Rate 79 AXIS ND 185 P 34 QRSd 103 QRS 19 QT 399 T 35 QTc 459 Conclusion Sinus rhythm...normal P axis, V-rate 60- 99
--- NOTE | 2023-01-18 10:21 | ED.GENADUL_ITS ---
Discharge Plan Discharge Details Chief Complaint: Chest Pain Primary Care Provider: Brandon Foster ED Provider: Cortes Leonard Home Meds and New Rx's Prescriptions: No Action Nurtec ODT 75 mg tablet,disintegrating 75 mg PO ONCE PRN (Reason: migraine headache) Qty: 10 3RF Rx Instructions: As a single dose. No more than one dose in 24 hours. chlorhexidine gluconate [Peridex] 0.12 % mouthwash 15 ml mucous membrane BID Qty: 473 5RF Rx Instructions: rinse and spit twice a day Emgality Pen 120 mg/mL pen injector 120 mg subcut QMONTH Qty: 1 11RF sumatriptan succinate 100 mg tablet See Rx Instructions PO .COMPLEX Qty: 9 5RF Rx Instructions: take 1 tab at onset of headache; if no relief, may repeat 1 tab after at least 2 hrs; max = 2 tabs/24 hrs PO Claritin Liqui-Gel 10 MG capsule 1 cap PO DAILY Qty: 90 prochlorperazine maleate 10 mg tablet See Rx Instructions .ROUTE .COMPLEX Qty: 20 2RF Dose Instruction: TAKE 1 TABLET BY MOUTH EVERY 8 HOURS NEEDED FOR NAUSEA AND VOMITING, HEADACHE Rx Instructions: TAKE 1 TABLET BY MOUTH EVERY 8 HOURS NEEDED FOR NAUSEA AND VOMITING, HEADACHE multivitamin Tablet 1 tab PO DAILY vitamin A 10,000 unit Capsule 10,000 unit PO DAILY metformin 500 mg tablet 1 tab PO BID omeprazole 20 mg capsule,delayed release(DR/EC) 40 mg PO DAILY benztropine 0.5 MG tablet 0.5 mg PO BID aspirin,buffd-calcium carb-mag 325 MG tablet 325 mg PO DAILY Risperdal Consta 25 mg/2 mL suspension,extended rel recon 25 mg IM USEASDIRECTD Patient Comments: INJECT ONE SYRINGE INTRAMUSCULARLY ONCE EVERY TWO WEEKS Rx Instructions: every 2 weeks lactulose 10 gram/15 mL solution 20 g PO DIRECTED PRN Patient Comments: TAKE ONE TO TWO TABLESPOONS BY MOUTH NEEDED WHEN 3 DAYS PASS WITHOUT BOWEL MOVEMENT lorazepam 1 mg tablet 1 mg PO QID Patient Comments: TK 1 T PO QAM THEN 2 TS HS Rx Instructions: 01/03/21 1 mg in am and 2 mg at hs Reports 1 mg in am, 1 mg in afternoon, 2 mg at hs albuterol sulfate 90 mcg/actuation aerosol powdr breath activated 2 inh IH Q6H PRN (Reason: shortness of breath or wheezing) Qty: 1 0RF Nu-Mag 71.5 mg tablet,delayed release (DR/EC) 71.5 mg PO DAILY Qty: 20 0RF atenolol 50 mg tablet 75 mg PO DAILY Rx Instructions: To take with 25mg dose for TDD 75mg daily simvastatin 40 mg tablet 40 mg PO DAILY albuterol sulfate [ProAir HFA] 90 mcg/actuation HFA aerosol inhaler 1 inh INHALATION PRN PRN Medical Decision Making This is a 57-year-old male who presents via EMS complaining of hours of left- sided chest wall pain that occurred when he turned over at home. Denies recent illness, no fever or cough. The pain is reproducible on exam. Patient's vital signs are normal. Patient given parenteral analgesic with ketorolac, screening labs and EKG obtained. Patient's laboratories show evidence of chronic hyponatremia with a sodium of 131. Remainder of his electrolytes are reassuring. Troponin is negative and CBC unremarkable. Patient is improving. He is stable and appropriate for discharge to home Lab Data Lab results reviewed: Yes I reviewed the patient's lab results. Labs: Laboratory Results - last 24 hr 01/18/23 01/18/23 10:23 10:23 WBC 7.71 RBC 3.70 L Hgb 11.6 L Hct 33.6 L MCV 91 MCH 31.4 MCHC 34.5 RDW 13.2 Plt Count 156 MPV 8.3 Immature Gran % 0.4 Neutrophils % 71.5 Lymphocytes % 19.1 Monocytes % 5.8 Eosinophils % 2.9 Basophils % 0.3 Nucleated RBC % 0.0 Absolute Neutrophils 5.52 Absolute Lymphocytes 1.47 Absolute Monocytes 0.45 Absolute Eosinophils 0.22 Absolute Basophils 0.02 Sodium 131 L Potassium 4.7 Chloride 97 L Carbon Dioxide 31.9 Anion Gap 2.1 L BUN 12 Creatinine 0.9 Est GFR (CKD-EPI 2020) 99.62 Glucose 259 H Calcium 8.9 Magnesium 1.9 Total Bilirubin 0.3 AST 11 L ALT 26 Alkaline Phosphatase 93 Troponin I < 50 Total Protein 7.3 Albumin 3.3 L HPI General Mode of arrival: EMS . Date/Time Provider Initiated Documentation: 01/18/23 11:37 . Limitations to Documentation: no limitations . Information obtained by: patient and EMS . History of Present Illness 57 year old M presents to the emergency department with the chief complaint of Left anterolateral chest pain 4 hours time, described as moderate, Quality is described as dull, and is localized to the chest and left. Patient reports no radiation. Patient started experiencing this hour(s) and it has been constant. No relieving factors improve symptom(s), No exacerbating factors reported . Patient notes chest pain; denies cough and syncope. Patient did receive the following treatments prior to arrival, none Related Data Home Medications Medication Instructions Recorded Confirmed loratadine 10 mg capsule (Claritin 1 cap PO DAILY #90 tabs 12/16/14 01/18/23 Liqui-Gel) aspirin,buffered (calcium 325 mg PO DAILY 11/18/16 01/18/23 carbonate-magnesium) 325 mg tablet benztropine 0.5 mg tablet 0.5 mg PO BID 11/18/16 01/18/23 lactulose 10 gram/15 mL oral 20 g PO DIRECTED PRN 10/03/20 01/18/23 solution risperidone microspheres 25 mg/2 25 mg IM USEASDIRECTD 10/03/20 01/18/23 mL intramuscular susp,ext release (Risperdal Consta) albuterol sulfate 90 mcg/actuation 2 inh inhalation Q6H PRN shortness 12/15/20 01/18/23 breath activated powder inhaler of breath or wheezing #1 ea multivitamin 1 tab PO DAILY 01/26/21 01/18/23 vitamin A 3,000 mcg (10,000 unit) 10,000 unit PO DAILY 01/26/21 01/18/23 capsule lorazepam 1 mg tablet 1 mg PO QID 07/05/21 01/18/23 chlorhexidine gluconate 0.12 % 15 ml mucous membrane BID dental 09/06/21 01/18/23 mouthwash (Peridex) problem #473 mL metformin 500 mg tablet 1 tab PO BID 03/18/22 01/18/23 omeprazole 20 mg capsule,delayed 40 mg PO DAILY 03/18/22 01/18/23 release galcanezumab-gnlm 120 mg/mL 120 mg subcut QMONTH #1 mL 04/05/22 01/18/23 subcutaneous pen injector (Emgality Pen) sumatriptan succinate 100 mg tablet See Rx Instructions PO .COMPLEX #9 08/24/22 03/16/23 tabs magnesium chloride 71.5 mg 71.5 mg PO DAILY #20 tabs 09/05/22 01/18/23 (magnesium chloride) tablet,delayed release (Nu-Mag) atenolol 50 mg tablet 75 mg PO DAILY 09/26/22 01/18/23 simvastatin 40 mg tablet 40 mg PO DAILY 12/25/22 01/18/23 prochlorperazine maleate 10 mg See Rx Instructions .Route 01/08/23 01/18/23 tablet .COMPLEX #20 tabs rimegepant 75 mg disintegrating 75 mg PO ONCE PRN migraine 01/17/23 01/18/23 tablet (Nurtec ODT) headache #10 tabs albuterol sulfate 90 mcg/actuation 1 inh inhalation PRN PRN 01/18/23 01/18/23 aerosol inhaler (ProAir HFA) Previous Rx's Medication Instructions Recorded albuterol sulfate 90 mcg/actuation 2 inh inhalation Q6H PRN shortness 12/15/20 breath activated powder inhaler of breath or wheezing #1 ea chlorhexidine gluconate 0.12 % 15 ml mucous membrane BID dental 09/06/21 mouthwash (Peridex) problem #473 mL galcanezumab-gnlm 120 mg/mL 120 mg subcut QMONTH #1 mL 04/05/22 subcutaneous pen injector (Emgality Pen) sumatriptan succinate 100 mg tablet See Rx Instructions PO .COMPLEX #9 06/28/22 tabs magnesium chloride 71.5 mg 71.5 mg PO DAILY #20 tabs 09/05/22 (magnesium chloride) tablet,delayed release (Nu-Mag) prochlorperazine maleate 10 mg See Rx Instructions .Route 01/08/23 tablet .COMPLEX #20 tabs rimegepant 75 mg disintegrating 75 mg PO ONCE PRN migraine 01/17/23 tablet (Nurtec ODT) headache #10 tabs Allergies Allergy/AdvReac Type Severity Reaction Status Date / Time buspirone Allergy Verified 01/18/23 10:26 paliperidone Allergy Verified 01/18/23 10:26 paroxetine HCl [From Paxil] Allergy Verified 01/18/23 10:26 sertraline Allergy Verified 01/18/23 10:26 ziprasidone [From Geodon] Allergy Other (See Verified 03/16/23 10:26 Comment) aripiprazole [From Abilify] AdvReac Intermediate INVOLUNTARY Verified 01/18/23 10:26 MUSCLE MOVEMENTS divalproex sodium AdvReac Intermediate INVOLUNTARY Verified 01/18/23 10:26 [From Depakote] MUSCLE MOVEMENTS mirtazapine AdvReac Intermediate INVOLUNTARY Verified 01/18/23 10:26 MUSCLE MOVEMENTS risperidone AdvReac Intermediate INVOLUNTARY Verified 01/18/23 10:26 MUSCLE MOVEMENTS benztropine mesylate AdvReac elevated Verified 01/18/23 10:26 [From Cogentin] blood sugars enviornmental Allergy Mild Wheezing Uncoded 01/18/23 10:26 General Stated Complaint: Chest Pain CARLOS: 3 Review of Systems Narrative: No recent illness, no fall or injury. See HPI. 7 systems were reviewed [facility] All Active Problems Schizoaffective disorder (Acute 09/07/14) Rebekah Mariscal [facility] 09/2014- [facility] inpatient Hypothyroidism (acquired) (Acute 09/07/14) Hypercholesterolemia (Chronic 09/07/14) pt insists on lipitor 80 mg due to family hx GERD (gastroesophageal reflux disease) (Acute 09/07/14) Diabetes mellitus type 2 in obese (Acute 09/09/14) Depression (Acute 10/02/14) Left-sided chest wall pain (Acute) Hypertension (Chronic) pt requests brand name Tenormin vs atenolol 04/02/18 Chest pain (Acute) Chronic headache (Acute) Migraine headache without aura (Acute) Migraine (Chronic) Obesity (Chronic) BMI 52 Poor dentition (Acute) Tobacco use disorder (Chronic) started 2013 1.5 ppd, pipe 1-7/week, QUIT LATE OCT 2021 Allergic rhinitis (Chronic) lortadine Hiatal hernia (Chronic) protonix not effective, nexium works better 02/12/18 Anemia (Chronic) Broken teeth (Chronic) Drug-seeking behavior (Chronic ~09/20/21) Requests Ritalin from providers Medication overuse headache (Acute) Abdominal pain (Acute) Left-sided chest pain (Acute) Chest pain (Acute) Atypical chest pain (Acute) Left-sided chest pain (Acute) Headache (Acute) Medical History Anxiety Dental caries Hyperlipidemia Mitral valve prolapse Peripheral neuropathy Trigeminal neuralgia Surgical History No significant past surgical history Family History Father Heart disease [place] Social History Smoking/Tobacco Use Status: Current every day Tobacco Type: cigarettes, pipe Years: 8 Other: States equivalent to 1.5 packs cigarettes and cigars Smoking risk assessment performed?: Yes Alcohol Intake: never Drug use: Never Substance use type: does not use Adopted: No Caregiver/Support person: No Foster care: No Household members: none Housing: apartment Number of Children: 2 number of grandchildren: 1 Communication Needs: Corrective Lenses Education Level: college Do you need help understanding health information?: Always current occupation: Unemployed/Leave of absence Sexually active: No Do you think of yourself as: Decline to provide Current gender identity: male What type of physical activity do you participate in: other Details: weight lifting Frequency: 3-4 times per week Magalie/Confucianist: Baptism Seatbelt use: always Drive intox or ride w/intox industrial tractor 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 Exam Narrative Exam Narrative: GEN: awake, alert, oriented 3. Pleasant, well groomed, interactive. HEAD: Normocephalic, atraumatic ENT: Mucous membranes moist, oropharynx unremarkable, External ear exam unremarkable EYES: PERRL, EOMI NECK: Full ROM, no REYNA, no menigismus CHEST/RESP: Tender left anterolateral chest wall, no rash appreciated,, clear to auscultation bilateral, no wheeze/rhonchi/rales CARDIOVASCULAR: Distant, RRR, no murmur, rub kassidy. 2+ Rad pulse bilateral ABDOMEN: Soft, nontender, no mass. +Bowel sounds EXT: Full ROM, no edema, no rash Neuro: Grossly normal neurologic exam, conversant, interactive. Psych: Speech fluent, thoughts congruent, affect normal Course Vital Signs Vital signs: Vital Signs Pulse 83 01/18/23 10:13 Respiratory Rate 15 01/18/23 10:13 Pulse Oximetry 98 03/16/23 10:13 Pulse 83 01/18/23 10:13 Respiratory Rate 16 01/18/23 10:19 Respiratory Effort Normal, Non-Labored 01/18/23 10:19 Respiratory Depth Normal 01/18/23 10:19 Respiratory Pattern Normal 01/18/23 10:19 Blood Pressure Position Supine 01/18/23 10:13 Pulse Oximetry 98 01/18/23 10:13 Oxygen Delivery Method Room Air 01/18/23 10:13 Oxygen Flow Rate 0 01/18/23 10:13 Pain Level 8 01/18/23 10:13
[2023-01-18] MEDS: Ketorolac 15 MG/ML VIAL IVP (10:34)
[2023-01-18 10:35] LABS: Abs Immature Grans 0.03 10^3/uL (0.0-0.06); Absolute Basophil Count 0.02 10^3/uL (0.0-0.2); Absolute Eosinophil Count 0.22 10^3/uL (0.0-0.7); Absolute Lymphocyte Count 1.47 10^3/uL (1.2-3.4); Absolute Monocyte Count 0.45 10^3/uL (0.1-0.8); Absolute Neutrophil Count 5.52 10^3/uL (1.2-6.7); Basophils % 0.3; Eosinophils % 2.9; HCT 33.6 % (40.0-50.0); HGB 11.6 g/dL (13.5-17.5); Immature Grans % 0.4; Lymphocytes % 19.1; MCH 31.4 pg (27.0-33.0); MCHC 34.5 % (32.0-36.0); MCV 91 fL (80-95); MPV 8.3 fL (8.0-11.0); Monocytes % 5.8; Neutrophils % 71.5; Platelet Count 156 10^3/uL (130-400); RDW 13.2 % (11.8-14.1); WBC 7.71 10^3/uL (4.4-10.8)
[2023-01-18 10:53] LABS: ALT 26 U/L (16-63); AST 11 U/L (15-37); Albumin 3.3 g/dL (3.4-5.0); Alkaline Phosphatase 93 U/L (46-116); Anion Gap 2.1 mmol/L (3-11); BUN 12 mg/dL (7-18); Bilirubin, Total 0.3 mg/dL (0.2-1.0); CO2 31.9 mmol/L (21.0-32.0); CREATININE 0.9 mg/dL (0.70-1.30); Calcium 8.9 mg/dL (8.5-10.1); Chloride 97 mmol/L (98-107); Estimated GFR 99.62 (mL/min/1.73m2); Glucose 259 mg/dL (74-106); Magnesium 1.9 mg/dL (1.8-2.4); Potassium 4.7 mmol/L (3.5-5.1); Sodium 131 mmol/L (136-145); Total Protein 7.3 g/dL (6.4-8.2); Troponin I < 50 ng/L (<or=60)
--- NOTE | 2023-01-20 07:35 | NUR.NOTE ---
Nursing Note: Accessed patient chart to determine how many EKG orders were in the chart from the ED. There was an outstanding EKG in ordered status. There are no EKG's in the [facility] system that are outstanding. EKG order was deleted.
== END 2023-01-18 11:49 | disposition home or self-care (01) ==
PROVIDERS: Emergency Provider Emergency Medicine; PCP Family Medicine
DX: R07.89 Other chest pain (principal); E87.1 Hypo-osmolality and hyponatremia
CPT/HCPCS: 80053; 93005; 96374; 99284; 83735; 84484; 85025; 93010; J1885

== ENCOUNTER 2023-01-20 11:58 | Emergency (ER) | payer MEDICAID, SELFPAY ==
[2023-01-20] VITALS (22 sets, daily range): BP systolic 154; BP diastolic 64; PULSE 70–83; RESP 15–38; TEMP 37.1; O2SAT 92–97
--- NOTE | 2023-01-20 11:45 | RT.EKG_ITS ---
APPROVED REPORT Exam: Resting ECG Reason for Exam: chest pain Patient Location: E HR:81 bpm ECG Measurements Heart Rate 81 AXIS LA 171 P 33 QRSd 98 QRS 16 QT 401 T 33 QTc 466 Conclusion Sinus rhythm...normal P axis, V-rate 60- 99
--- NOTE | 2023-01-20 12:16 | W.ED.GENAD ---
Discharge Plan Disposition Patient Disposition: Home Condition: Stable Discharge Details Clinical Impression: Chest pain Primary Care Provider: Brandon Foster ED Provider: Doc Ramos Home Meds and New Rx's Prescriptions: Continued Nurtec ODT 75 mg tablet,disintegrating 75 mg PO ONCE PRN (Reason: migraine headache) Qty: 10 3RF Rx Instructions: As a single dose. No more than one dose in 24 hours. chlorhexidine gluconate [Peridex] 0.12 % mouthwash 15 ml mucous membrane BID Qty: 473 5RF Rx Instructions: rinse and spit twice a day Emgality Pen 120 mg/mL pen injector 120 mg subcut QMONTH Qty: 1 11RF sumatriptan succinate 100 mg tablet See Rx Instructions PO .COMPLEX Qty: 9 5RF Rx Instructions: take 1 tab at onset of headache; if no relief, may repeat 1 tab after at least 2 hrs; max = 2 tabs/24 hrs PO Claritin Liqui-Gel 10 MG capsule 1 cap PO DAILY Qty: 90 prochlorperazine maleate 10 mg tablet See Rx Instructions .ROUTE .COMPLEX Qty: 20 2RF Dose Instruction: TAKE 1 TABLET BY MOUTH EVERY 8 HOURS NEEDED FOR NAUSEA AND VOMITING, HEADACHE Rx Instructions: TAKE 1 TABLET BY MOUTH EVERY 8 HOURS NEEDED FOR NAUSEA AND VOMITING, HEADACHE multivitamin Tablet 1 tab PO DAILY vitamin A 10,000 unit Capsule 10,000 unit PO DAILY metformin 500 mg tablet 1 tab PO BID omeprazole 20 mg capsule,delayed release(DR/EC) 40 mg PO DAILY benztropine 0.5 MG tablet 0.5 mg PO BID aspirin,buffd-calcium carb-mag 325 MG tablet 325 mg PO DAILY Risperdal Consta 25 mg/2 mL suspension,extended rel recon 25 mg IM USEASDIRECTD Patient Comments: INJECT ONE SYRINGE INTRAMUSCULARLY ONCE EVERY TWO WEEKS Rx Instructions: every 2 weeks lactulose 10 gram/15 mL solution 20 g PO DIRECTED PRN Patient Comments: TAKE ONE TO TWO TABLESPOONS BY MOUTH NEEDED WHEN 3 DAYS PASS WITHOUT BOWEL MOVEMENT lorazepam 1 mg tablet 1 mg PO QID Patient Comments: TK 1 T PO QAM THEN 2 TS HS Rx Instructions: 01/03/21 1 mg in am and 2 mg at hs Reports 1 mg in am, 1 mg in afternoon, 2 mg at hs albuterol sulfate 90 mcg/actuation aerosol powdr breath activated 2 inh IH Q6H PRN (Reason: shortness of breath or wheezing) Qty: 1 0RF Nu-Mag 71.5 mg tablet,delayed release (DR/EC) 71.5 mg PO DAILY Qty: 20 0RF atenolol 50 mg tablet 75 mg PO DAILY Rx Instructions: To take with 25mg dose for TDD 75mg daily simvastatin 40 mg tablet 40 mg PO DAILY albuterol sulfate [ProAir HFA] 90 mcg/actuation HFA aerosol inhaler 1 inh INHALATION PRN PRN Discharge Instructions Instructions: Chest Pain (ED) Additional Instructions: follow up with your primary care provider as soon as possible if you have severe worsening pain, difficulty breathing or feel more ill return to the emergency department Medical Decision Making 57 yo male with hx of schizoaffective disorder, htn, dm, who has had frequent visits for chest pain with reassuring workups including a cta earlier this month that was negative for acute findings, comes in with left side chest pain similar to prior episodes. HE states he was talking on the phone this morning when it started. HE denies diaphoresis, n/v, dyspnea, no recent fevers or chills. No pain with exertion. HE arrives hemodynamically stable speaking clearly in no distress. HE has clear lung sounds, no jvd, no leg swelling or calf tenderness. Will obtain ekg and troponin. Given recent cta do not feel workup for pe or dissection indicated. pt resting in no distress no symptoms now, will obtain delta troponin, initial negative delta trop negative, he is asymptomatic in no distress. Will have him f/u with his pcp, return precautions given Differential Diagnosis Differential Diagnosis: chest wall pain, nstemi, anxiety Medical Records Medical records reviewed: Yes I reviewed the patient's medical records. Lab Data Lab results reviewed: Yes I reviewed the patient's lab results. ECG Data Attestation: I personally reviewed and interpreted this ECG (s) as follows: Prior ECG tracings: available for review Interpretation: sinus rhythm, rate of 81, pr 171, no acute st t wave ischemic findings HPI General Mode of arrival: EMS. Date/Time Provider Initiated Documentation: 01/20/23 12:03. Limitations to Documentation: no limitations. Information obtained by: patient. History of Present Illness 57 year old M presents to the emergency department with the chief complaint of chest pain , Patient started experiencing this hour(s) (1) and it has been constant. No relieving factors improve symptom(s), No exacerbating factors reported . Patient notes denies shortness of breath. Patient did receive the following treatments prior to arrival, none Related Data Home Medications Medication Instructions Recorded Confirmed loratadine 10 mg capsule (Claritin 1 cap PO DAILY #90 tabs 12/16/14 01/18/23 Liqui-Gel) aspirin,buffered (calcium 325 mg PO DAILY 11/18/16 01/18/23 carbonate-magnesium) 325 mg tablet benztropine 0.5 mg tablet 0.5 mg PO BID 11/18/16 01/20/23 lactulose 10 gram/15 mL oral 20 g PO DIRECTED PRN 10/03/20 01/20/23 solution risperidone microspheres 25 mg/2 25 mg IM USEASDIRECTD 10/03/20 01/18/23 mL intramuscular susp,ext release (Risperdal Consta) albuterol sulfate 90 mcg/actuation 2 inh inhalation Q6H PRN shortness 12/15/20 01/18/23 breath activated powder inhaler of breath or wheezing #1 ea multivitamin 1 tab PO DAILY 01/26/21 01/20/23 vitamin A 3,000 mcg (10,000 unit) 10,000 unit PO DAILY 01/26/21 01/20/23 capsule lorazepam 1 mg tablet 1 mg PO QID 07/05/21 01/20/23 chlorhexidine gluconate 0.12 % 15 ml mucous membrane BID dental 09/06/21 01/20/23 mouthwash (Peridex) problem #473 mL metformin 500 mg tablet 1 tab PO BID 03/18/22 01/20/23 omeprazole 20 mg capsule,delayed 40 mg PO DAILY 03/18/22 01/20/23 release galcanezumab-gnlm 120 mg/mL 120 mg subcut QMONTH #1 mL 04/05/22 01/20/23 subcutaneous pen injector (Emgality Pen) sumatriptan succinate 100 mg tablet See Rx Instructions PO .COMPLEX #9 06/28/22 01/20/23 tabs magnesium chloride 71.5 mg 71.5 mg PO DAILY #20 tabs 09/05/22 01/18/23 (magnesium chloride) tablet,delayed release (Nu-Mag) atenolol 50 mg tablet 75 mg PO DAILY 09/26/22 01/20/23 simvastatin 40 mg tablet 40 mg PO DAILY 12/25/22 01/20/23 prochlorperazine maleate 10 mg See Rx Instructions .Route 01/08/23 01/20/23 tablet .COMPLEX #20 tabs rimegepant 75 mg disintegrating 75 mg PO ONCE PRN migraine 01/17/23 01/20/23 tablet (Nurtec ODT) headache #10 tabs albuterol sulfate 90 mcg/actuation 1 inh inhalation PRN PRN 01/18/23 01/18/23 aerosol inhaler (ProAir HFA) Previous Rx's Medication Instructions Recorded albuterol sulfate 90 mcg/actuation 2 inh inhalation Q6H PRN shortness 12/15/20 breath activated powder inhaler of breath or wheezing #1 ea chlorhexidine gluconate 0.12 % 15 ml mucous membrane BID dental 09/06/21 mouthwash (Peridex) problem #473 mL galcanezumab-gnlm 120 mg/mL 120 mg subcut QMONTH #1 mL 04/05/22 subcutaneous pen injector (Emgality Pen) sumatriptan succinate 100 mg tablet See Rx Instructions PO .COMPLEX #9 06/28/22 tabs magnesium chloride 71.5 mg 71.5 mg PO DAILY #20 tabs 09/05/22 (magnesium chloride) tablet,delayed release (Nu-Mag) prochlorperazine maleate 10 mg See Rx Instructions .Route 01/08/23 tablet .COMPLEX #20 tabs rimegepant 75 mg disintegrating 75 mg PO ONCE PRN migraine 01/17/23 tablet (Nurtec ODT) headache #10 tabs Allergies Allergy/AdvReac Type Severity Reaction Status Date / Time buspirone Allergy Verified 01/20/23 12:02 paliperidone Allergy Verified 01/20/23 12:02 paroxetine HCl [From Paxil] Allergy Verified 01/20/23 12:02 sertraline Allergy Verified 01/20/23 12:02 ziprasidone [From Geodon] Allergy Other (See Verified 01/20/23 12:02 Comment) aripiprazole [From Abilify] AdvReac Intermediate INVOLUNTARY Verified 01/20/23 12:02 MUSCLE MOVEMENTS divalproex sodium AdvReac Intermediate INVOLUNTARY Verified 01/20/23 12:02 [From Depakote] MUSCLE MOVEMENTS mirtazapine AdvReac Intermediate INVOLUNTARY Verified 01/20/23 12:02 MUSCLE MOVEMENTS risperidone AdvReac Intermediate INVOLUNTARY Verified 01/20/23 12:02 MUSCLE MOVEMENTS benztropine mesylate AdvReac elevated Verified 01/20/23 12:02 [From Cogentin] blood sugars enviornmental Allergy Mild Wheezing Uncoded 01/20/23 12:02 General Stated Complaint: Chest Pain CARLOS: 3 Review of Systems All systems reviewed & are unremarkable except as noted in HPI and below Constitutional Constitutional: Denies chills, Denies fever(s) and Denies weakness Cardiovascular Cardiovascular: Denies dyspnea Respiratory Respiratory: Denies cough and Denies dyspnea Gastrointestinal Gastrointestinal: Denies abdominal pain, Denies nausea and Denies vomiting Integumentary/Breasts Skin/Breast: Denies rash Neurologic Neurologic: Denies weakness Psychiatric Psychiatric: Denies depression [facility] All Active Problems (Updated 01/20/23 @ 16:15 by Doc Ramos MD) Schizoaffective disorder (Acute 09/07/14) Rebekah Mariscal [facility] [place] 09/2014- [facility] inpatient Hypothyroidism (acquired) (Acute 09/07/14) Hypercholesterolemia (Chronic 09/07/14) pt insists on lipitor 80 mg due to family hx GERD (gastroesophageal reflux disease) (Acute 09/07/14) Diabetes mellitus type 2 in obese (Acute 09/09/14) Depression (Acute 10/02/14) Left-sided chest wall pain (Acute) Hypertension (Chronic) pt requests brand name Tenormin vs atenolol 04/02/18 Chest pain (Acute) Chronic headache (Acute) Migraine headache without aura (Acute) Migraine (Chronic) Obesity (Chronic) BMI 52 Poor dentition (Acute) Tobacco use disorder (Chronic) started 2013 1.5 ppd, pipe 1-7/week, QUIT LATE OCT 2021 Allergic rhinitis (Chronic) lortadine Hiatal hernia (Chronic) protonix not effective, nexium works better 02/12/18 Anemia (Chronic) Broken teeth (Chronic) Drug-seeking behavior (Chronic ~09/20/21) Requests Ritalin from providers Medication overuse headache (Acute) Left-sided chest pain (Acute) Chest pain (Acute) Atypical chest pain (Acute) Left-sided chest pain (Acute) Headache (Acute) Hyponatremia (Acute) Medical History Anxiety Dental caries Hyperlipidemia Mitral valve prolapse Peripheral neuropathy Trigeminal neuralgia Surgical History No significant past surgical history Family History Father Heart disease [place] Social History Smoking/Tobacco Use Status: Current every day Tobacco Type: cigarettes, pipe Years: 8 Other: States equivalent to 1.5 packs cigarettes and cigars Smoking risk assessment performed?: Yes Alcohol Intake: never Drug use: Never Substance use type: does not use Adopted: No Caregiver/Support person: No Foster care: No Household members: none Housing: apartment Number of Children: 2 number of grandchildren: 1 Communication Needs: Corrective Lenses Education Level: college Do you need help understanding health information?: Always current occupation: Unemployed/Leave of absence Sexually active: No Do you think of yourself as: Decline to provide Current gender identity: male What type of physical activity do you participate in: other Details: weight lifting Frequency: 3-4 times per week Magalie/Scientology: Denominational Seatbelt use: always Drive intox or ride w/intox 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 Exam Const General: no acute distress Orientation: alert HENMT Head: normal to inspection Ears: external ears normal General nose exam: external nose normal Mouth: moist mucous membranes Eyes General: appearance normal, both eyes and all related structures Neck Neck: normal visual inspection Resp Effort & Inspection: normal respiratory effort and able to speak in complete sentences Auscultation: clear to auscultation bilaterally Cardio Rate: regular rate Heart Sounds: no murmurs Skin General skin exam: no rashes or lesions noted Neuro General: patient alert and patient oriented x3 Extrem General: normal to inspection Psych Mental Status: mental status grossly normal Course Vital Signs Vital signs: Vital Signs Temperature 37.1 C 01/20/23 12:01 Pulse 82 01/20/23 12:01 Respiratory Rate 18 01/20/23 12:01 Blood Pressure 154/64 H 01/20/23 12:01 Pulse Oximetry 93 01/20/23 12:01 Temperature 37.1 C 01/20/23 12:01 Temperature Source Oral 01/20/23 12:01 Pulse 82 01/20/23 12:01 Respiratory Rate 18 01/20/23 12:01 Respiratory Effort Normal, Non-Labored 01/20/23 11:58 Blood Pressure 154/64 H 01/20/23 12:01 Pulse Oximetry 93 01/20/23 12:01 Oxygen Delivery Method Room Air 01/20/23 12:01 Oxygen Flow Rate 0 01/20/23 12:01
[2023-01-20 12:39] LABS: Abs Immature Grans 0.03 10^3/uL (0.0-0.06); Absolute Basophil Count 0.01 10^3/uL (0.0-0.2); Absolute Eosinophil Count 0.23 10^3/uL (0.0-0.7); Absolute Lymphocyte Count 1.37 10^3/uL (1.2-3.4); Absolute Monocyte Count 0.36 10^3/uL (0.1-0.8); Absolute Neutrophil Count 6.28 10^3/uL (1.2-6.7); Basophils % 0.1; Eosinophils % 2.8; HCT 32.6 % (40.0-50.0); HGB 11.2 g/dL (13.5-17.5); Immature Grans % 0.4; Lymphocytes % 16.5; MCH 30.7 pg (27.0-33.0); MCHC 34.4 % (32.0-36.0); MCV 89 fL (80-95); MPV 8.8 fL (8.0-11.0); Monocytes % 4.3; Neutrophils % 75.9; Platelet Count 166 10^3/uL (130-400); RBC 3.65 10^6/uL (4.36-5.78); RDW 13.2 % (11.8-14.1); RDW-SD 42.8 fL; WBC 8.28 10^3/uL (4.4-10.8)
[2023-01-20 13:00] LABS: ALT 22 U/L (16-63); AST 13 U/L (15-37); Alkaline Phosphatase 87 U/L (46-116); Anion Gap 6.9 mmol/L (3-11); BUN 10 mg/dL (7-18); Bilirubin, Total 0.3 mg/dL (0.2-1.0); CO2 28.1 mmol/L (21.0-32.0); CREATININE 0.8 mg/dL (0.70-1.30); Calcium 8.6 mg/dL (8.5-10.1); Chloride 98 mmol/L (98-107); Estimated GFR 103.22 (mL/min/1.73m2); Glucose 264 mg/dL (74-106); Potassium 4.2 mmol/L (3.5-5.1); Sodium 133 mmol/L (136-145); Total Protein 6.9 g/dL (6.4-8.2); Troponin I < 50 ng/L (<or=60)
[2023-01-20 15:49] LABS: Troponin I < 50 ng/L (<or=60)
== END 2023-01-20 16:18 | disposition home or self-care (01) ==
PROVIDERS: Emergency Provider Emergency Medicine; PCP Family Medicine
DX: R07.89 Other chest pain (principal)
CPT/HCPCS: 36415; 80053; 93005; 99283; 84484; 85025; 93010

== ENCOUNTER 2023-01-25 08:46 | Emergency (ER) | payer MEDICAID, SELFPAY ==
--- NOTE | 2023-01-25 08:15 | RT.EKG_ITS ---
APPROVED REPORT Exam: Resting ECG Reason for Exam: chest pain Patient Location: E HR:88 bpm ECG Measurements Heart Rate 88 AXIS WI 174 P 32 QRSd 97 QRS 27 QT 388 T 35 QTc 471 Conclusion Sinus rhythm...normal P axis, V-rate 60- 99 sinus rhythm, normal axis, normal intervals, non ischemic
--- NOTE | 2023-01-25 08:57 | W.ED.GENAD ---
Discharge Plan Disposition Patient Disposition: Home Discharge Details Clinical Impression: Chest pain Primary Care Provider: Brandon Foster ED Provider: Lb Cordero Home Meds and New Rx's Prescriptions: No Action Nurtec ODT 75 mg tablet,disintegrating 75 mg PO ONCE PRN (Reason: migraine headache) Qty: 10 3RF Rx Instructions: As a single dose. No more than one dose in 24 hours. chlorhexidine gluconate [Peridex] 0.12 % mouthwash 15 ml mucous membrane BID Qty: 473 5RF Rx Instructions: rinse and spit twice a day Emgality Pen 120 mg/mL pen injector 120 mg subcut QMONTH Qty: 1 11RF sumatriptan succinate 100 mg tablet See Rx Instructions PO .COMPLEX Qty: 9 5RF Rx Instructions: take 1 tab at onset of headache; if no relief, may repeat 1 tab after at least 2 hrs; max = 2 tabs/24 hrs PO Claritin Liqui-Gel 10 MG capsule 1 cap PO DAILY Qty: 90 prochlorperazine maleate 10 mg tablet See Rx Instructions .ROUTE .COMPLEX Qty: 20 2RF Dose Instruction: TAKE 1 TABLET BY MOUTH EVERY 8 HOURS NEEDED FOR NAUSEA AND VOMITING, HEADACHE Rx Instructions: TAKE 1 TABLET BY MOUTH EVERY 8 HOURS NEEDED FOR NAUSEA AND VOMITING, HEADACHE multivitamin Tablet 1 tab PO DAILY vitamin A 10,000 unit Capsule 10,000 unit PO DAILY metformin 500 mg tablet 1 tab PO BID omeprazole 20 mg capsule,delayed release(DR/EC) 40 mg PO DAILY benztropine 0.5 MG tablet 0.5 mg PO BID aspirin,buffd-calcium carb-mag 325 MG tablet 325 mg PO DAILY Risperdal Consta 25 mg/2 mL suspension,extended rel recon 25 mg IM USEASDIRECTD Patient Comments: INJECT ONE SYRINGE INTRAMUSCULARLY ONCE EVERY TWO WEEKS Rx Instructions: every 2 weeks lactulose 10 gram/15 mL solution 20 g PO DIRECTED PRN Patient Comments: TAKE ONE TO TWO TABLESPOONS BY MOUTH NEEDED WHEN 3 DAYS PASS WITHOUT BOWEL MOVEMENT lorazepam 1 mg tablet 1 mg PO QID Patient Comments: TK 1 T PO QAM THEN 2 TS HS Rx Instructions: 01/03/21 1 mg in am and 2 mg at hs Reports 1 mg in am, 1 mg in afternoon, 2 mg at hs albuterol sulfate 90 mcg/actuation aerosol powdr breath activated 2 inh IH Q6H PRN (Reason: shortness of breath or wheezing) Qty: 1 0RF Nu-Mag 71.5 mg tablet,delayed release (DR/EC) 71.5 mg PO DAILY Qty: 20 0RF atenolol 50 mg tablet 75 mg PO DAILY Rx Instructions: To take with 25mg dose for TDD 75mg daily simvastatin 40 mg tablet 40 mg PO DAILY albuterol sulfate [ProAir HFA] 90 mcg/actuation HFA aerosol inhaler 1 inh INHALATION PRN PRN Discharge Instructions Instructions: Chest Pain (ED) Additional Instructions: Please follow-up with your primary care physician. 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 Medical Decision Making 57-year-old male history of diabetes obesity hyperlipidemia hypertension, presents with acute on chronic anterior chest pain over the past several days. Nonexertional in nature. Occasionally worse with movement of upper extremities. Patient is normoxic normotensive normal sinus rhythm nonischemic EKG unchanged from prior patient had recent extensive work-up including cardiac troponin and chest x-ray which were negative. I have seen patient multiple times for similar complaint with negative work-up patient has follow-up with a slice plug cutter operator helper. High clinical suspicion for anxiety versus musculoskeletal versus malingering. Lower suspicion for ACS PE aortic pathology pneumothorax or pneumonia. Will provide analgesia anti-inflammatory. Home care instructions and return precautions. HPI General Date/Time Provider Initiated Documentation: 01/25/23 08:56. HPI Narrative: 57-year-old male history of schizoaffective disorder, obesity, hypercholesterolemia, diabetes, presents with anterior chest discomfort acute on chronic in nature nonexertional, worse with movement of upper extremity. Current smoker, denies oxygen use. Related Data Home Medications Medication Instructions Recorded Confirmed loratadine 10 mg capsule (Claritin 1 cap PO DAILY #90 tabs 12/16/14 01/18/23 Liqui-Gel) aspirin,buffered (calcium 325 mg PO DAILY 11/18/16 01/18/23 carbonate-magnesium) 325 mg tablet benztropine 0.5 mg tablet 0.5 mg PO BID 11/18/16 01/20/23 lactulose 10 gram/15 mL oral 20 g PO DIRECTED PRN 10/03/20 01/20/23 solution risperidone microspheres 25 mg/2 25 mg IM USEASDIRECTD 11/29/20 03/16/23 mL intramuscular susp,ext release (Risperdal Consta) albuterol sulfate 90 mcg/actuation 2 inh inhalation Q6H PRN shortness 12/15/20 01/18/23 breath activated powder inhaler of breath or wheezing #1 ea multivitamin 1 tab PO DAILY 01/26/21 01/20/23 vitamin A 3,000 mcg (10,000 unit) 10,000 unit PO DAILY 01/26/21 01/20/23 capsule lorazepam 1 mg tablet 1 mg PO QID 07/05/21 01/20/23 chlorhexidine gluconate 0.12 % 15 ml mucous membrane BID dental 09/06/21 01/20/23 mouthwash (Peridex) problem #473 mL metformin 500 mg tablet 1 tab PO BID 03/18/22 01/20/23 omeprazole 20 mg capsule,delayed 40 mg PO DAILY 03/18/22 01/20/23 release galcanezumab-gnlm 120 mg/mL 120 mg subcut QMONTH #1 mL 04/05/22 01/20/23 subcutaneous pen injector (Emgality Pen) sumatriptan succinate 100 mg tablet See Rx Instructions PO .COMPLEX #9 06/28/22 01/20/23 tabs magnesium chloride 71.5 mg 71.5 mg PO DAILY #20 tabs 09/05/22 01/18/23 (magnesium chloride) tablet,delayed release (Nu-Mag) atenolol 50 mg tablet 75 mg PO DAILY 09/26/22 01/20/23 simvastatin 40 mg tablet 40 mg PO DAILY 12/25/22 01/20/23 prochlorperazine maleate 10 mg See Rx Instructions .Route 01/08/23 01/20/23 tablet .COMPLEX #20 tabs rimegepant 75 mg disintegrating 75 mg PO ONCE PRN migraine 01/17/23 01/20/23 tablet (Nurtec ODT) headache #10 tabs albuterol sulfate 90 mcg/actuation 1 inh inhalation PRN PRN 01/18/23 01/18/23 aerosol inhaler (ProAir HFA) Previous Rx's Medication Instructions Recorded albuterol sulfate 90 mcg/actuation 2 inh inhalation Q6H PRN shortness 12/15/20 breath activated powder inhaler of breath or wheezing #1 ea chlorhexidine gluconate 0.12 % 15 ml mucous membrane BID dental 09/06/21 mouthwash (Peridex) problem #473 mL galcanezumab-gnlm 120 mg/mL 120 mg subcut QMONTH #1 mL 04/05/22 subcutaneous pen injector (Emgality Pen) sumatriptan succinate 100 mg tablet See Rx Instructions PO .COMPLEX #9 06/28/22 tabs magnesium chloride 71.5 mg 71.5 mg PO DAILY #20 tabs 09/05/22 (magnesium chloride) tablet,delayed release (Nu-Mag) prochlorperazine maleate 10 mg See Rx Instructions .Route 01/08/23 tablet .COMPLEX #20 tabs rimegepant 75 mg disintegrating 75 mg PO ONCE PRN migraine 01/17/23 tablet (Nurtec ODT) headache #10 tabs Allergies Allergy/AdvReac Type Severity Reaction Status Date / Time buspirone Allergy Verified 01/20/23 12:02 paliperidone Allergy Verified 01/20/23 12:02 paroxetine HCl [From Paxil] Allergy Verified 01/20/23 12:02 sertraline Allergy Verified 01/20/23 12:02 ziprasidone [From Geodon] Allergy Other (See Verified 01/20/23 12:02 Comment) aripiprazole [From Abilify] AdvReac Intermediate INVOLUNTARY Verified 01/20/23 12:02 MUSCLE MOVEMENTS divalproex sodium AdvReac Intermediate INVOLUNTARY Verified 01/20/23 12:02 [From Depakote] MUSCLE MOVEMENTS mirtazapine AdvReac Intermediate INVOLUNTARY Verified 01/20/23 12:02 MUSCLE MOVEMENTS risperidone AdvReac Intermediate INVOLUNTARY Verified 01/20/23 12:02 MUSCLE MOVEMENTS benztropine mesylate AdvReac elevated Verified 01/20/23 12:02 [From Cogentin] blood sugars enviornmental Allergy Mild Wheezing Uncoded 01/20/23 12:02 General CARLOS: 3 Review of Systems Narrative: Review of Systems Constitutional: negative Eyes: negative ENT: negative Cardiovascular: Chest pain Respiratory: negative Gastrointestinal: negative : negative Musculoskeletal: negative Skin: negative Neurologic: negative Psych: negative PFSH All Active Problems (Updated 01/25/23 @ 09:00 by Lb Cordero MD) Schizoaffective disorder (Acute 09/07/14) Rebekah Mariscal [facility] 09/2014- [facility] inpatient Hypothyroidism (acquired) (Acute 09/07/14) Hypercholesterolemia (Chronic 09/07/14) pt insists on lipitor 80 mg due to family hx GERD (gastroesophageal reflux disease) (Acute 09/07/14) Diabetes mellitus type 2 in obese (Acute 09/09/14) Depression (Acute 10/02/14) Left-sided chest wall pain (Acute) Hypertension (Chronic) pt requests brand name Tenormin vs atenolol 04/02/18 Chest pain (Acute) Chronic headache (Acute) Migraine headache without aura (Acute) Migraine (Chronic) Obesity (Chronic) BMI 52 Poor dentition (Acute) Tobacco use disorder (Chronic) started 2013 1.5 ppd, pipe 1-7/week, QUIT LATE OCT 2021 Allergic rhinitis (Chronic) lortadine Hiatal hernia (Chronic) protonix not effective, nexium works better 02/12/18 Anemia (Chronic) Broken teeth (Chronic) Drug-seeking behavior (Chronic ~09/20/21) Requests Ritalin from providers Medication overuse headache (Acute) Chest pain (Acute) Atypical chest pain (Acute) Left-sided chest pain (Acute) Headache (Acute) Hyponatremia (Acute) Medical History Anxiety Dental caries Hyperlipidemia Mitral valve prolapse Peripheral neuropathy Trigeminal neuralgia Surgical History No significant past surgical history Family History Father Heart disease [place] Social History Smoking/Tobacco Use Status: Current every day Tobacco Type: cigarettes, pipe Years: 8 Other: States equivalent to 1.5 packs cigarettes and cigars Smoking risk assessment performed?: Yes Alcohol Intake: never Drug use: Never Substance use type: does not use Adopted: No Caregiver/Support person: No Foster care: No Household members: none Housing: apartment Number of Children: 2 number of grandchildren: 1 Communication Needs: Corrective Lenses Education Level: college Do you need help understanding health information?: Always current occupation: Unemployed/Leave of absence Sexually active: No Do you think of yourself as: Decline to provide Current gender identity: male What type of physical activity do you participate in: other Details: weight lifting Frequency: 3-4 times per week Magalie/Druze: Synagogue Seatbelt use: always Drive intox or ride w/intox dedicated 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 Exam Narrative Exam Narrative: Physical Examination General: alert, awake, cooperative, resting comfortably, no acute distress HEENT: normocephalic, atraumatic; PERRL, EOM intact, conjunctiva normal; no nasal discharge; moist mucous membranes, oral and pharyngeal mucosa normal, tolerating secretions Neck: supple, trachea midline; full ROM Chest: normal to inspection Respiratory: normal respiratory effort, speaking in full sentences, clear to auscultation, no wheezing, rales or rhonchi Cardiac: regular rate, regular rhythm, S1S2 intact, no murmurs rubs or gallops GI: abdomen soft, non-tender, non-distended; no palpable mass or hepatosplenomegaly Skin: no lesions, rashes or trauma appreciated Neuro: AAOx3, normal speech, moving all extremities Psych: Appropriate mood and affect
[2023-01-25 09:04] VITALS: BP 136/63; PULSE 86; RESP 16; TEMP 36.9; O2SAT 96
[2023-01-25 09:06] VITALS: BP 140/68; PULSE 88; RESP 17; TEMP 37.1; O2SAT 97
[2023-01-25] MEDS: Ibuprofen 600 MG TAB PO (09:09)
[2023-01-25 09:20] VITALS: RESP 18
== END 2023-01-25 09:21 | disposition home or self-care (01) ==
LOC: ER 09:28
PROVIDERS: Emergency Provider Emergency Medicine; PCP Family Medicine
DX: R07.89 Other chest pain (principal); I10 Essential (primary) hypertension; E11.9 Type 2 diabetes mellitus without complications
CPT/HCPCS: 93005; 99283; 93010

== ENCOUNTER 2023-02-06 10:11 | Emergency (ER) | payer MEDICAID, SELFPAY ==
--- NOTE | 2023-02-06 10:00 | RT.EKG_ITS ---
APPROVED REPORT Exam: Resting ECG Reason for Exam: chest pain Patient Location: E HR:71 bpm ECG Measurements Heart Rate 71 AXIS MN 189 P 39 QRSd 100 QRS 19 QT 421 T 74 QTc 459 Conclusion Sinus rhythm...normal P axis, V-rate 60- 99 sinus rhtyhm, normal axis, normal intervals, non ischemic
--- NOTE | 2023-02-06 10:02 | ED.GENADUL_ITS ---
Discharge Plan Disposition Patient Disposition: Home Condition: Stable Discharge Details Clinical Impression: Chest pain Primary Care Provider: Brandon Foster ED Provider: [place] Viera Home Meds and New Rx's Prescriptions: Continued Nurtec ODT 75 mg tablet,disintegrating 75 mg PO ONCE PRN (Reason: migraine headache) Qty: 10 3RF Rx Instructions: As a single dose. No more than one dose in 24 hours. chlorhexidine gluconate [Peridex] 0.12 % mouthwash 15 ml mucous membrane BID Qty: 473 5RF Rx Instructions: rinse and spit twice a day Emgality Pen 120 mg/mL pen injector 120 mg subcut QMONTH Qty: 1 11RF sumatriptan succinate 100 mg tablet See Rx Instructions PO .COMPLEX Qty: 9 5RF Rx Instructions: take 1 tab at onset of headache; if no relief, may repeat 1 tab after at least 2 hrs; max = 2 tabs/24 hrs PO Claritin Liqui-Gel 10 MG capsule 1 cap PO DAILY Qty: 90 prochlorperazine maleate 10 mg tablet See Rx Instructions .ROUTE .COMPLEX Qty: 20 2RF Dose Instruction: TAKE 1 TABLET BY MOUTH EVERY 8 HOURS NEEDED FOR NAUSEA AND VOMITING, HEADACHE Rx Instructions: TAKE 1 TABLET BY MOUTH EVERY 8 HOURS NEEDED FOR NAUSEA AND VOMITING, HEADACHE multivitamin Tablet 1 tab PO DAILY vitamin A 10,000 unit Capsule 10,000 unit PO DAILY metformin 500 mg tablet 1 tab PO BID omeprazole 20 mg capsule,delayed release(DR/EC) 40 mg PO DAILY Nurtec ODT 75 mg tablet,disintegrating 75 mg PO PRN PRN Patient Comments: Take 1 tablet by mouth once a day as needed for migraine benztropine 0.5 MG tablet 0.5 mg PO BID aspirin,buffd-calcium carb-mag 325 MG tablet 325 mg PO DAILY Risperdal Consta 25 mg/2 mL suspension,extended rel recon 25 mg IM USEASDIRECTD Patient Comments: INJECT ONE SYRINGE INTRAMUSCULARLY ONCE EVERY TWO WEEKS Rx Instructions: every 2 weeks lactulose 10 gram/15 mL solution 20 g PO DIRECTED PRN Patient Comments: TAKE ONE TO TWO TABLESPOONS BY MOUTH NEEDED WHEN 3 DAYS PASS WITHOUT BOWEL MOVEMENT lorazepam 1 mg tablet 1 mg PO QID Patient Comments: TK 1 T PO QAM THEN 2 TS HS Rx Instructions: 01/03/21 1 mg in am and 2 mg at hs Reports 1 mg in am, 1 mg in afternoon, 2 mg at hs albuterol sulfate 90 mcg/actuation aerosol powdr breath activated 2 inh IH Q6H PRN (Reason: shortness of breath or wheezing) Qty: 1 0RF Nu-Mag 71.5 mg tablet,delayed release (DR/EC) 71.5 mg PO DAILY Qty: 20 0RF atenolol 50 mg tablet 75 mg PO DAILY Rx Instructions: To take with 25mg dose for TDD 75mg daily simvastatin 40 mg tablet 40 mg PO DAILY albuterol sulfate [ProAir HFA] 90 mcg/actuation HFA aerosol inhaler 1 inh INHALATION PRN PRN Discharge Instructions Instructions: Chest Pain (ED) Additional Instructions: Your blood tests, EKGs and imaging today are reassuring and show no evidence of acute concerning or significant findings. An order for an outpatient stress test has been placed. Please contact the radiology department for scheduling of this test. You have been placed on care management's list to arrange for a follow-up appointment with your primary care doctor for reevaluation and for referral to cardiology for your chronic chest pain. Return immediately to the emergency department if you develop any worsening or new concerning symptoms. Discharge Data Discharge Date/Time-TO BE ENTERED AT DEPARTURE: 02/06/23 14:43 Discharge Physician: [place] Viera Medical Decision Making 57-year-old male who is well-known to the emergency department with multiple visits for chest pain presents for complaint of chest pain for the past 30 minutes. Of note, this patient's 29th visit to the ED in the last year and 7th visit in the last month. Vitals within normal limits. His left anterior chest is tender to palpation. His abdomen is soft and nontender. He has no lower extremity edema. History and presentation does not appear consistent with dissection or PE. Suspect most likely GI or musculoskeletal as his pain is reproducible with palpation and also has a component of nausea. Considering his age, morbid obesity and comorbidities, will obtain screening labs, chest x-ray and give IV Toradol, IV Zofran, IV Pepcid, GI cocktail and reassess. Labs and imaging reviewed. Troponin negative. D-dimer negative for age- adjusted cut off. Chest x-ray negative for acute findings. Repeat troponin negative. Repeat EKG unchanged. Patient reassessed and he feels better. Will refer for outpatient stress test. Also discussed the possibility of obtaining EGD for further evaluation if stress test negative and has persistent chest pain and nausea. Patient also placed on care management list to try to arrange appropriate care plan to minimize ED visits for chronic complaints. Advised to follow up with the primary care doctor for re-evaluation. Usual and customary return precautions given prior to discharge. Medical Records Medical records reviewed: Yes I reviewed the patient's medical records. Medical records narrative: 12/25/22 Echocardiogram Conclusion Normal left ventricular wall thickness and chamber size.? Estimated ejection fraction is 55%.? No segmental wall motion abnormalities are noted The right ventricle appears grossly normal in size and systolic function Both atria are normal in size There is no structural or hemodynamically significant valvular disease Imaging Data Radiologic Study: Radiologist's impression: XR CHEST 2V PA ? LATERAL CLINICAL HISTORY:? chest pain, r/o acute disease TECHNIQUE:? 2D digital imaging was performed. COMPARISON:? No exams were available for comparison FINDINGS: HEART: Normal size.? Aorta: Not dilated. PULMONARY VASCULATURE: Normal. LUNGS: Clear. ? PLEURAL SPACE: No pleural effusion or pneumothorax. BONE:Unremarkable for age.? IMPRESSION: No acute abnormality.? Lab Data Lab results reviewed: Yes I reviewed the patient's lab results. Labs: Laboratory Tests Range/Units 02/06/23 02/06/23 02/06/23 10:05 10:05 10:05 WBC (4.4-10.8) 10^3/uL RBC (4.36-5.78) 10^6/uL Hgb (13.5-17.5) g/dL Hct (40.0-50.0) % MCV (80-95) fL MCH (27.0-33.0) pg MCHC (32.0-36.0) % RDW (11.8-14.1) % Plt Count (130-400) 10^3/uL MPV (8.0-11.0) fL Immature Gran % Neutrophils % Lymphocytes % Monocytes % Eosinophils % Basophils % Nucleated RBC % (0.0-0.3) % Absolute Neutrophils (1.2-6.7) 10^3/uL Absolute Lymphocytes (1.2-3.4) 10^3/uL Absolute Monocytes (0.1-0.8) 10^3/uL Absolute Eosinophils (0.0-0.7) 10^3/uL Absolute Basophils (0.0-0.2) 10^3/uL D-Dimer Cancelled Sodium Cancelled Potassium Cancelled Chloride Cancelled Carbon Dioxide Cancelled Anion Gap Cancelled BUN Cancelled Creatinine Cancelled Est GFR (CKD-EPI 2020) Cancelled Glucose Cancelled Calcium Cancelled Magnesium Cancelled Total Bilirubin Cancelled AST Cancelled ALT Cancelled Alkaline Phosphatase Cancelled Troponin I Cancelled Total Protein Cancelled Albumin Cancelled Lipase Cancelled Range/Units 02/06/23 02/06/23 02/06/23 10:05 11:46 11:46 WBC (4.4-10.8) 10^3/uL 7.12 RBC (4.36-5.78) 10^6/uL 3.67 L Hgb (13.5-17.5) g/dL 11.6 L Hct (40.0-50.0) % 32.1 L MCV (80-95) fL 88 MCH (27.0-33.0) pg 31.6 MCHC (32.0-36.0) % 36.1 H RDW (11.8-14.1) % 12.6 Plt Count (130-400) 10^3/uL 377 MPV (8.0-11.0) fL 11.0 Immature Gran % 0.3 Neutrophils % 63.9 Lymphocytes % 25.7 Monocytes % 6.7 Eosinophils % 3.1 Basophils % 0.3 Nucleated RBC % (0.0-0.3) % 0.0 Absolute Neutrophils (1.2-6.7) 10^3/uL 4.55 Absolute Lymphocytes (1.2-3.4) 10^3/uL 1.83 Absolute Monocytes (0.1-0.8) 10^3/uL 0.48 Absolute Eosinophils (0.0-0.7) 10^3/uL 0.22 Absolute Basophils (0.0-0.2) 10^3/uL 0.02 D-Dimer 554 H Sodium 135 L Potassium 4.6 Chloride 100 Carbon Dioxide 29.8 Anion Gap 5.2 BUN 9 Creatinine 0.8 Est GFR (CKD-EPI 2020) 103.22 Glucose 199 H Calcium 8.9 Magnesium 1.8 Total Bilirubin 0.3 AST 12 L ALT 23 Alkaline Phosphatase 81 Troponin I < 50 Total Protein 7.2 Albumin 3.2 L Lipase 14 L Range/Units 02/06/23 13:35 WBC (4.4-10.8) 10^3/uL RBC (4.36-5.78) 10^6/uL Hgb (13.5-17.5) g/dL Hct (40.0-50.0) % MCV (80-95) fL MCH (27.0-33.0) pg MCHC (32.0-36.0) % RDW (11.8-14.1) % Plt Count (130-400) 10^3/uL MPV (8.0-11.0) fL Immature Gran % Neutrophils % Lymphocytes % Monocytes % Eosinophils % Basophils % Nucleated RBC % (0.0-0.3) % Absolute Neutrophils (1.2-6.7) 10^3/uL Absolute Lymphocytes (1.2-3.4) 10^3/uL Absolute Monocytes (0.1-0.8) 10^3/uL Absolute Eosinophils (0.0-0.7) 10^3/uL Absolute Basophils (0.0-0.2) 10^3/uL D-Dimer Sodium Potassium Chloride Carbon Dioxide Anion Gap BUN Creatinine Est GFR (CKD-EPI 2020) Glucose Calcium Magnesium Total Bilirubin AST ALT Alkaline Phosphatase Troponin I < 50 Total Protein Albumin Lipase ECG Data Attestation: I personally reviewed and interpreted this ECG (s) as follows: Interpretation: #1 -- Rate 71, sinus, normal axis. Normal intervals. No STEMI. #2 --Rate of 64, sinus, normal axis, no STEMI. HPI General Mode of arrival: EMS . Date/Time Provider Initiated Documentation: 02/06/23 10:16 . Limitations to Documentation: no limitations . Information obtained by: patient . HPI Narrative: Pt is a 57yo M well-known to the emergency department with multiple frequent visits for various complaints, usually chest pain who presents with complaint of chest pain for the last 30 minutes. Patient states he was sitting at home when he developed left-sided dull chest pain with radiation to his left underarm. He also admits to lightheadedness and shortness of breath at the time of his chest pain but none at present. He states the pain was 10/10 and is now slightly improved at 7/10. He did not take any medication for his pain at home but states EMS gave him 4 aspirin. He denies any relief after aspirin. He states he refused nitro because it caused diarrhea. Patient states this chest pain today was different from his usual chest pain which she feels is usually due to anxiety and that he felt nausea today. He denies any fever, vomiting or abdominal pain. He denies any recent injury, leg swelling or pain. He denies any aggravating or alleviating factors. He states he smokes tobacco but denies any alcohol or drug use. He states he last ate last night. Related Data Home Medications Medication Instructions Recorded Confirmed loratadine 10 mg capsule (Claritin 1 cap PO DAILY #90 tabs 12/16/14 02/06/23 Liqui-Gel) aspirin,buffered (calcium 325 mg PO DAILY 11/18/16 02/06/23 carbonate-magnesium) 325 mg tablet benztropine 0.5 mg tablet 0.5 mg PO BID 11/18/16 02/06/23 lactulose 10 gram/15 mL oral 20 g PO DIRECTED PRN 10/03/20 02/06/23 solution risperidone microspheres 25 mg/2 25 mg IM USEASDIRECTD 10/03/20 02/06/23 mL intramuscular susp,ext release (Risperdal Consta) albuterol sulfate 90 mcg/actuation 2 inh inhalation Q6H PRN shortness 12/15/20 01/18/23 breath activated powder inhaler of breath or wheezing #1 ea multivitamin 1 tab PO DAILY 01/26/21 02/09/23 vitamin A 3,000 mcg (10,000 unit) 10,000 unit PO DAILY 01/26/21 02/09/23 capsule lorazepam 1 mg tablet 1 mg PO QID 07/05/21 02/09/23 chlorhexidine gluconate 0.12 % 15 ml mucous membrane BID dental 09/06/21 02/06/23 mouthwash (Peridex) problem #473 mL metformin 500 mg tablet 1 tab PO BID 03/18/22 02/09/23 omeprazole 20 mg capsule,delayed 40 mg PO DAILY 03/18/22 02/09/23 release galcanezumab-gnlm 120 mg/mL 120 mg subcut QMONTH #1 mL 04/05/22 02/06/23 subcutaneous pen injector (Emgality Pen) sumatriptan succinate 100 mg tablet See Rx Instructions PO .COMPLEX #9 06/28/22 02/09/23 tabs magnesium chloride 71.5 mg 71.5 mg PO DAILY #20 tabs 09/05/22 02/06/23 (magnesium chloride) tablet,delayed release (Nu-Mag) atenolol 50 mg tablet 75 mg PO DAILY 09/26/22 02/09/23 simvastatin 40 mg tablet 40 mg PO DAILY 12/25/22 02/09/23 prochlorperazine maleate 10 mg See Rx Instructions .Route 01/08/23 02/09/23 tablet .COMPLEX #20 tabs rimegepant 75 mg disintegrating 75 mg PO ONCE PRN migraine 01/17/23 02/09/23 tablet (Nurtec ODT) headache #10 tabs albuterol sulfate 90 mcg/actuation 1 inh inhalation PRN PRN 01/18/23 02/06/23 aerosol inhaler (ProAir HFA) rimegepant 75 mg disintegrating 75 mg PO PRN PRN 02/06/23 02/06/23 tablet (Nurtec ODT) Previous Rx's Medication Instructions Recorded albuterol sulfate 90 mcg/actuation 2 inh inhalation Q6H PRN shortness 12/15/20 breath activated powder inhaler of breath or wheezing #1 ea chlorhexidine gluconate 0.12 % 15 ml mucous membrane BID dental 09/06/21 mouthwash (Peridex) problem #473 mL galcanezumab-gnlm 120 mg/mL 120 mg subcut QMONTH #1 mL 04/05/22 subcutaneous pen injector (Emgality Pen) sumatriptan succinate 100 mg tablet See Rx Instructions PO .COMPLEX #9 06/28/22 tabs magnesium chloride 71.5 mg 71.5 mg PO DAILY #20 tabs 09/05/22 (magnesium chloride) tablet,delayed release (Nu-Mag) prochlorperazine maleate 10 mg See Rx Instructions .Route 01/08/23 tablet .COMPLEX #20 tabs rimegepant 75 mg disintegrating 75 mg PO ONCE PRN migraine 01/17/23 tablet (Nurtec ODT) headache #10 tabs Allergies Allergy/AdvReac Type Severity Reaction Status Date / Time buspirone Allergy Verified 02/09/23 11:41 paliperidone Allergy Verified 02/09/23 11:41 paroxetine HCl [From Paxil] Allergy Verified 02/09/23 11:41 sertraline Allergy Verified 02/09/23 11:41 ziprasidone [From Geodon] Allergy Other (See Verified 02/09/23 11:41 Comment) aripiprazole [From Abilify] AdvReac Intermediate INVOLUNTARY Verified 02/09/23 11:41 MUSCLE MOVEMENTS divalproex sodium AdvReac Intermediate INVOLUNTARY Verified 02/09/23 11:41 [From Depakote] MUSCLE MOVEMENTS mirtazapine AdvReac Intermediate INVOLUNTARY Verified 02/09/23 11:41 MUSCLE MOVEMENTS risperidone AdvReac Intermediate INVOLUNTARY Verified 02/09/23 11:41 MUSCLE MOVEMENTS benztropine mesylate AdvReac elevated Verified 02/09/23 11:41 [From Cogentin] blood sugars enviornmental Allergy Mild Wheezing Uncoded 02/06/23 10:12 General Stated Complaint: Chest Pain CARLOS: 3 Review of Systems All systems reviewed & are unremarkable except as noted in HPI and below Constitutional Constitutional: Reports as per HPI, Denies chills and Denies fever(s) Eyes Eyes: Denies blurry vision ENT Ears, Nose, Mouth, and Throat: Denies dizziness, Denies sore throat and Denies throat swelling Cardiovascular Cardiovascular: Reports chest pain and Denies dyspnea Respiratory Respiratory: Denies cough and Denies dyspnea Gastrointestinal Gastrointestinal: Denies abdominal pain, Denies diarrhea, Reports nausea and Denies vomiting Genitourinary Genitourinary: Denies hematuria and Denies dysuria Musculoskeletal Musculoskeletal: Denies back pain and Denies numbness Integumentary/Breasts Skin/Breast: Denies lesions and Denies rash Neurologic Neurologic: Denies dizziness, Denies localized weakness and Denies numbness Allergic/Immunologic Allergic/Immunologic: Denies throat swelling [facility] All Active Problems (Updated 02/09/23 @ 12:56 by Doc Ramos MD) Schizoaffective disorder (Acute 09/07/14) Rebekah Mariscal [facility] 09/2014- COUNTS INCLUDE 234 BEDS AT THE [facility] inpatient Hypothyroidism (acquired) (Acute 09/07/14) Hypercholesterolemia (Chronic 09/07/14) pt insists on lipitor 80 mg due to family hx GERD (gastroesophageal reflux disease) (Acute 09/07/14) Diabetes mellitus type 2 in obese (Acute 09/09/14) Depression (Acute 10/02/14) Left-sided chest wall pain (Acute) Hypertension (Chronic) pt requests brand name Tenormin vs atenolol 04/02/18 Chest pain (Acute) Chronic headache (Acute) Migraine headache without aura (Acute) Migraine (Chronic) Obesity (Chronic) BMI 52 Poor dentition (Acute) Tobacco use disorder (Chronic) started 2013 1.5 ppd, pipe 1-7/week, QUIT LATE OCT 2021 Allergic rhinitis (Chronic) lortadine Hiatal hernia (Chronic) protonix not effective, nexium works better 02/12/18 Anemia (Chronic) Broken teeth (Chronic) Drug-seeking behavior (Chronic ~09/20/21) Requests Ritalin from providers Medication overuse headache (Acute) Headache (Acute) Hyponatremia (Acute) Chest pain (Acute) Medical History Anxiety Dental caries Hyperlipidemia Mitral valve prolapse Peripheral neuropathy Trigeminal neuralgia Surgical History No significant past surgical history Family History Father Heart disease [place] Social History Smoking/Tobacco Use Status: Current every day Tobacco Type: cigarettes, pipe Years: 8 Other: States equivalent to 1.5 packs cigarettes and cigars Smoking risk assessment performed?: Yes Alcohol Intake: never Drug use: Never Substance use type: does not use Adopted: No Caregiver/Support person: No Foster care: No Household members: none Housing: apartment Number of Children: 2 number of grandchildren: 1 Communication Needs: Corrective Lenses Education Level: college Do you need help understanding health information?: Always current occupation: Unemployed/Leave of absence Sexually active: No Do you think of yourself as: Decline to provide Current gender identity: male What type of physical activity do you participate in: other Details: weight lifting Frequency: 3-4 times per week Magalie/Yazidism: Buddhism Seatbelt use: always Drive intox or ride w/intox 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 Exam Const General: cooperative and no acute distress Nutritional Appearance: obese morbidly obese Orientation: alert, awake and oriented x3 HENMT Head: normal to inspection Eyes General: appearance normal, both eyes and all related structures Pupils: PERRL EOM: EOM intact bilaterally Neck Neck: normal visual inspection and No submandibular swelling Lymphatic: no lymphadenopathy noted Chest Chest: normal inspection of the chest Chest/axillae images: 1. Tenderness to palpation to left anterior chest. There is no evidence of erythema, edema, rash or lesions. Resp Effort & Inspection: normal respiratory effort and able to speak in complete sentences Auscultation: clear to auscultation bilaterally Cardio Rate: regular rate Rhythm: regular rhythm GI Inspection: normal to inspection and obesity Palpation: soft, not firm, not rigid and nontender Auscultation: hypoactive bowel sounds Skin General skin exam: no rashes or lesions noted Neuro General: patient alert, patient awake and patient oriented x3 Cognition: normal cognition Speech: speech normal Motor: muscle tone normal throughout Sensory Exam: no sensory deficits noted Extrem General: normal to inspection, full ROM, capillary refill normal, no calf tenderness bilaterally and no edema Psych Appearance: grossly normal Mental Status: mental status grossly normal Speech and Movement: speech and movement normal Affect: normal affect
[2023-02-06 10:12] VITALS: PULSE 73; RESP 18; TEMP 36.7; O2SAT 95
[2023-02-06 10:15] VITALS: BP 126/80
--- NOTE | 2023-02-06 10:45 | DI.RAD_ITS ---
Exam(s) XR CHEST 2V PA LATERAL EXAM: XR CHEST 2V PA LATERAL CLINICAL HISTORY: chest pain, r/o acute disease TECHNIQUE: 2D digital imaging was performed. COMPARISON: No exams were available for comparison FINDINGS: HEART: Normal size. Aorta: Not dilated. PULMONARY VASCULATURE: Normal. LUNGS: Clear. PLEURAL SPACE: No pleural effusion or pneumothorax. BONE:Unremarkable for age. IMPRESSION: No acute abnormality. DATA REPOSITORY: RADIATION DOSE DELIVERED:
[2023-02-06] MEDS: Famotidine 20 MG/2 ML VIAL IVP (11:12)
[2023-02-06] MEDS: Ketorolac 30 MG/ML VIAL IVP (11:12)
[2023-02-06] MEDS: Ondansetron 4 MG/2 ML VIAL IVP (11:13)
[2023-02-06] MEDS: Normal Saline 250 ML IV (11:13)
[2023-02-06 11:20] LABS: Abs Immature Grans 0.02 10^3/uL (0.0-0.06); Absolute Basophil Count 0.02 10^3/uL (0.0-0.2); Absolute Eosinophil Count 0.22 10^3/uL (0.0-0.7); Absolute Lymphocyte Count 1.83 10^3/uL (1.2-3.4); Absolute Monocyte Count 0.48 10^3/uL (0.1-0.8); Absolute Neutrophil Count 4.55 10^3/uL (1.2-6.7); Basophils % 0.3; Eosinophils % 3.1; HCT 32.1 % (40.0-50.0); HGB 11.6 g/dL (13.5-17.5); Immature Grans % 0.3; Lymphocytes % 25.7; MCH 31.6 pg (27.0-33.0); MCHC 36.1 % (32.0-36.0); MCV 88 fL (80-95); Monocytes % 6.7; Neutrophils % 63.9; Platelet Count 377 10^3/uL (130-400); RBC 3.67 10^6/uL (4.36-5.78); RDW 12.6 % (11.8-14.1); RDW-SD 40.1 fL; WBC 7.12 10^3/uL (4.4-10.8)
[2023-02-06 12:15] LABS: ALT 23 U/L (16-63); AST 12 U/L (15-37); Albumin 3.2 g/dL (3.4-5.0); Alkaline Phosphatase 81 U/L (46-116); Anion Gap 5.2 mmol/L (3-11); BUN 9 mg/dL (7-18); Bilirubin, Total 0.3 mg/dL (0.2-1.0); CO2 29.8 mmol/L (21.0-32.0); CREATININE 0.8 mg/dL (0.70-1.30); Calcium 8.9 mg/dL (8.5-10.1); Chloride 100 mmol/L (98-107); Estimated GFR 103.22 (mL/min/1.73m2); Glucose 199 mg/dL (74-106); Lipase 14 U/L (16-77); Magnesium 1.8 mg/dL (1.8-2.4); Potassium 4.6 mmol/L (3.5-5.1); Sodium 135 mmol/L (136-145); Total Protein 7.2 g/dL (6.4-8.2); Troponin I < 50 ng/L (<or=60)
[2023-02-06 12:30] LABS: D-Dimer 554 ng/mlFEU (<500)
--- NOTE | 2023-02-06 13:45 | RT.EKG_ITS ---
APPROVED REPORT Exam: Resting ECG Reason for Exam: chest pain Patient Location: E HR:64 bpm ECG Measurements Heart Rate 64 AXIS NV 190 P 36 QRSd 100 QRS 14 QT 430 T 85 QTc 444 Conclusion Sinus rhythm...normal P axis, V-rate 60- 99. Sinus. Normal axis. No STEMI. I have reviewed and interpreted ECG and agree with software generated interpretation.
[2023-02-06 14:01] LABS: Troponin I < 50 ng/L (<or=60)
[2023-02-06 14:38] VITALS: BP 137/74; PULSE 67; TEMP 36.6; O2SAT 95
--- NOTE | 2023-02-06 15:54 | NUR.NOTE ---
Addendum entered by Selena Gutierrez 02/06/23 15:54: Dx chest pain Original Note: Nursing Note: Stress test order (Regular Exercise Treadmill Test) faxed to [facility] for scheduling. Instructions given to patient.
== END 2023-02-06 14:43 | disposition home or self-care (01) ==
PROVIDERS: Emergency Provider Physician Assistant; PCP Family Medicine
DX: R07.9 Chest pain, unspecified (principal); R42 Dizziness and giddiness; R06.02 Shortness of breath; F17.210 Nicotine dependence, cigarettes, uncomplicated; E66.01 Morbid (severe) obesity due to excess calories
CPT/HCPCS: 36415; 80053; 83690; 93005; 96361; 96374; 96375; 99284; 71046; 83735; 84484; 85025; 85379; 93010; J1885; J2405

== ENCOUNTER 2023-02-09 10:28 | Emergency (ER) | payer MEDICAID, SELFPAY ==
[2023-02-09] VITALS (11 sets, daily range): BP systolic 113–129; BP diastolic 59–73; PULSE 62–73; RESP 16–20; TEMP 36.6–36.9; O2SAT 93–98
--- NOTE | 2023-02-09 10:15 | RT.EKG_ITS ---
APPROVED REPORT Exam: Resting ECG Reason for Exam: chest pain Patient Location: E HR:69 bpm ECG Measurements Heart Rate 69 AXIS NM 189 P 35 QRSd 97 QRS 18 QT 426 T 67 QTc 458 Conclusion Sinus rhythm...normal P axis, V-rate 60- 99
--- NOTE | 2023-02-09 10:52 | ED.GENADUL_ITS ---
Discharge Plan Disposition Patient Disposition: Home Condition: Stable Discharge Details Clinical Impression: Chest pain Primary Care Provider: Brandon Foster ED Provider: Doc Ramos Home Meds and New Rx's Prescriptions: Continued Nurtec ODT 75 mg tablet,disintegrating 75 mg PO ONCE PRN (Reason: migraine headache) Qty: 10 3RF Rx Instructions: As a single dose. No more than one dose in 24 hours. chlorhexidine gluconate [Peridex] 0.12 % mouthwash 15 ml mucous membrane BID Qty: 473 5RF Rx Instructions: rinse and spit twice a day Emgality Pen 120 mg/mL pen injector 120 mg subcut QMONTH Qty: 1 11RF sumatriptan succinate 100 mg tablet See Rx Instructions PO .COMPLEX Qty: 9 5RF Rx Instructions: take 1 tab at onset of headache; if no relief, may repeat 1 tab after at least 2 hrs; max = 2 tabs/24 hrs PO Claritin Liqui-Gel 10 MG capsule 1 cap PO DAILY Qty: 90 prochlorperazine maleate 10 mg tablet See Rx Instructions .ROUTE .COMPLEX Qty: 20 2RF Dose Instruction: TAKE 1 TABLET BY MOUTH EVERY 8 HOURS NEEDED FOR NAUSEA AND VOMITING, HEADACHE Rx Instructions: TAKE 1 TABLET BY MOUTH EVERY 8 HOURS NEEDED FOR NAUSEA AND VOMITING, HEADACHE multivitamin Tablet 1 tab PO DAILY vitamin A 10,000 unit Capsule 10,000 unit PO DAILY metformin 500 mg tablet 1 tab PO BID omeprazole 20 mg capsule,delayed release(DR/EC) 40 mg PO DAILY Nurtec ODT 75 mg tablet,disintegrating 75 mg PO PRN PRN Patient Comments: Take 1 tablet by mouth once a day as needed for migraine benztropine 0.5 MG tablet 0.5 mg PO BID aspirin,buffd-calcium carb-mag 325 MG tablet 325 mg PO DAILY Risperdal Consta 25 mg/2 mL suspension,extended rel recon 25 mg IM USEASDIRECTD Patient Comments: INJECT ONE SYRINGE INTRAMUSCULARLY ONCE EVERY TWO WEEKS Rx Instructions: every 2 weeks lactulose 10 gram/15 mL solution 20 g PO DIRECTED PRN Patient Comments: TAKE ONE TO TWO TABLESPOONS BY MOUTH NEEDED WHEN 3 DAYS PASS WITHOUT BOWEL MOVEMENT lorazepam 1 mg tablet 1 mg PO QID Patient Comments: TK 1 T PO QAM THEN 2 TS HS Rx Instructions: 3/1/21 1 mg in am and 2 mg at hs Reports 1 mg in am, 1 mg in afternoon, 2 mg at hs albuterol sulfate 90 mcg/actuation aerosol powdr breath activated 2 inh IH Q6H PRN (Reason: shortness of breath or wheezing) Qty: 1 0RF Nu-Mag 71.5 mg tablet,delayed release (DR/EC) 71.5 mg PO DAILY Qty: 20 0RF atenolol 50 mg tablet 75 mg PO DAILY Rx Instructions: To take with 25mg dose for TDD 75mg daily simvastatin 40 mg tablet 40 mg PO DAILY albuterol sulfate [ProAir HFA] 90 mcg/actuation HFA aerosol inhaler 1 inh INHALATION PRN PRN Discharge Instructions Instructions: Chest Pain (ED) Additional Instructions: follow up with your primary care provider within 1 week if you feel more ill, have severe worsening pain or difficulty breathing return to the emergency department Medical Decision Making 57 yo male with hx of schizoaffective dysorder, hld, who presents frequently to the ED for chest pain related complaints and was seen 3 days ago for chest pain comes in with chest pain described as a substernal pressure and aching. He was sitting when this started. Denies radiation of pain, n/v, diaphoresis, no pain with exertion. He arrives stable speaking in full sentences in no distress. He has clear lungs, no jvd, soft nontender abdomen. EKG unremarkable, will obtain troponin. Had negative d dimer 3 days ago and has no hypoxia or tachycardia nor evidence of dvt on exam so doubt pe at this time and no tearing back pain to suggest dissection labs unremarkable, pt sleeping in no distress awakens to voice, asymptomatic now. Will obtain delta troponin pt stable, ambulating without pain, delta troponin negative. HE is stable for d/c, will have him f/u with pcp, return precautions given Differential Diagnosis Differential Diagnosis: angina, nstemi, anxiety Lab Data Lab results reviewed: Yes I reviewed the patient's lab results. ECG Data Attestation: I personally reviewed and interpreted this ECG (s) as follows: Prior ECG tracings: available for review Interpretation: sinus rhythn, rate of 69, pr 189, no acute ischemic findings HPI General Mode of arrival: EMS . Date/Time Provider Initiated Documentation: 02/09/23 10:47 . Limitations to Documentation: no limitations . Information obtained by: patient . History of Present Illness 57 year old M presents to the emergency department with the chief complaint of chest pressure, described as moderate, with intensity rated at 6. Quality is described as other (pressure and aching), Patient started experiencing this hour(s) (1) and it has been constant. No relieving factors improve symptom(s), No exacerbating factors reported . Patient notes no other symptoms.. Patient did receive the following treatments prior to arrival, none Related Data Home Medications Medication Instructions Recorded Confirmed loratadine 10 mg capsule (Claritin 1 cap PO DAILY #90 tabs 12/16/14 02/06/23 Liqui-Gel) aspirin,buffered (calcium 325 mg PO DAILY 11/18/16 02/06/23 carbonate-magnesium) 325 mg tablet benztropine 0.5 mg tablet 0.5 mg PO BID 11/18/16 02/06/23 lactulose 10 gram/15 mL oral 20 g PO DIRECTED PRN 10/03/20 02/06/23 solution risperidone microspheres 25 mg/2 25 mg IM USEASDIRECTD 10/03/20 02/06/23 mL intramuscular susp,ext release (Risperdal Consta) albuterol sulfate 90 mcg/actuation 2 inh inhalation Q6H PRN shortness 12/15/20 01/18/23 breath activated powder inhaler of breath or wheezing #1 ea multivitamin 1 tab PO DAILY 01/26/21 02/09/23 vitamin A 3,000 mcg (10,000 unit) 10,000 unit PO DAILY 01/26/21 02/09/23 capsule lorazepam 1 mg tablet 1 mg PO QID 07/05/21 02/09/23 chlorhexidine gluconate 0.12 % 15 ml mucous membrane BID dental 09/06/21 02/06/23 mouthwash (Peridex) problem #473 mL metformin 500 mg tablet 1 tab PO BID 03/18/22 02/09/23 omeprazole 20 mg capsule,delayed 40 mg PO DAILY 03/18/22 02/09/23 release galcanezumab-gnlm 120 mg/mL 120 mg subcut QMONTH #1 mL 04/05/22 02/06/23 subcutaneous pen injector (Emgality Pen) sumatriptan succinate 100 mg tablet See Rx Instructions PO .COMPLEX #9 06/28/22 02/09/23 tabs magnesium chloride 71.5 mg 71.5 mg PO DAILY #20 tabs 09/05/22 02/06/23 (magnesium chloride) tablet,delayed release (Nu-Mag) atenolol 50 mg tablet 75 mg PO DAILY 09/26/22 02/09/23 simvastatin 40 mg tablet 40 mg PO DAILY 12/25/22 02/09/23 prochlorperazine maleate 10 mg See Rx Instructions .Route 01/08/23 02/09/23 tablet .COMPLEX #20 tabs rimegepant 75 mg disintegrating 75 mg PO ONCE PRN migraine 01/17/23 02/09/23 tablet (Nurtec ODT) headache #10 tabs albuterol sulfate 90 mcg/actuation 1 inh inhalation PRN PRN 01/18/23 02/06/23 aerosol inhaler (ProAir HFA) rimegepant 75 mg disintegrating 75 mg PO PRN PRN 02/06/23 02/06/23 tablet (Nurtec ODT) Previous Rx's Medication Instructions Recorded albuterol sulfate 90 mcg/actuation 2 inh inhalation Q6H PRN shortness 12/15/20 breath activated powder inhaler of breath or wheezing #1 ea chlorhexidine gluconate 0.12 % 15 ml mucous membrane BID dental 09/06/21 mouthwash (Peridex) problem #473 mL galcanezumab-gnlm 120 mg/mL 120 mg subcut QMONTH #1 mL 04/05/22 subcutaneous pen injector (Emgality Pen) sumatriptan succinate 100 mg tablet See Rx Instructions PO .COMPLEX #9 06/28/22 tabs magnesium chloride 71.5 mg 71.5 mg PO DAILY #20 tabs 09/05/22 (magnesium chloride) tablet,delayed release (Nu-Mag) prochlorperazine maleate 10 mg See Rx Instructions .Route 01/08/23 tablet .COMPLEX #20 tabs rimegepant 75 mg disintegrating 75 mg PO ONCE PRN migraine 01/17/23 tablet (Nurtec ODT) headache #10 tabs Allergies Allergy/AdvReac Type Severity Reaction Status Date / Time buspirone Allergy Verified 02/09/23 11:41 paliperidone Allergy Verified 02/09/23 11:41 paroxetine HCl [From Paxil] Allergy Verified 02/09/23 11:41 sertraline Allergy Verified 02/09/23 11:41 ziprasidone [From Geodon] Allergy Other (See Verified 02/09/23 11:41 Comment) aripiprazole [From Abilify] AdvReac Intermediate INVOLUNTARY Verified 02/09/23 11:41 MUSCLE MOVEMENTS divalproex sodium AdvReac Intermediate INVOLUNTARY Verified 02/09/23 11:41 [From Depakote] MUSCLE MOVEMENTS mirtazapine AdvReac Intermediate INVOLUNTARY Verified 02/09/23 11:41 MUSCLE MOVEMENTS risperidone AdvReac Intermediate INVOLUNTARY Verified 02/09/23 11:41 MUSCLE MOVEMENTS benztropine mesylate AdvReac elevated Verified 02/09/23 11:41 [From Cogentin] blood sugars enviornmental Allergy Mild Wheezing Uncoded 02/06/23 10:12 General Stated Complaint: Chest Pain CARLOS: 3 Review of Systems All systems reviewed & are unremarkable except as noted in HPI and below Constitutional Constitutional: Denies chills, Denies fever(s) and Denies weakness Cardiovascular Cardiovascular: Denies dyspnea Respiratory Respiratory: Denies cough and Denies dyspnea Gastrointestinal Gastrointestinal: Denies abdominal pain, Denies nausea and Denies vomiting Integumentary/Breasts Skin/Breast: Denies rash Neurologic Neurologic: Denies weakness [facility] All Active Problems (Updated 02/09/23 @ 12:56 by Doc Ramos MD) Schizoaffective disorder (Acute 09/07/14) Rebekah Mariscal [facility] 09/2014- [facility], [facility] inpatient Hypothyroidism (acquired) (Acute 09/07/14) Hypercholesterolemia (Chronic 09/07/14) pt insists on lipitor 80 mg due to family hx GERD (gastroesophageal reflux disease) (Acute 09/07/14) Diabetes mellitus type 2 in obese (Acute 09/09/14) Depression (Acute 10/02/14) Left-sided chest wall pain (Acute) Hypertension (Chronic) pt requests brand name Tenormin vs atenolol 04/02/18 Chest pain (Acute) Chronic headache (Acute) Migraine headache without aura (Acute) Migraine (Chronic) Obesity (Chronic) BMI 52 Poor dentition (Acute) Tobacco use disorder (Chronic) started 2013 1.5 ppd, pipe 1-7/week, QUIT LATE OCT 2021 Allergic rhinitis (Chronic) lortadine Hiatal hernia (Chronic) protonix not effective, nexium works better 02/12/18 Anemia (Chronic) Broken teeth (Chronic) Drug-seeking behavior (Chronic ~09/20/21) Requests Ritalin from providers Medication overuse headache (Acute) Headache (Acute) Hyponatremia (Acute) Chest pain (Acute) Medical History Anxiety Dental caries Hyperlipidemia Mitral valve prolapse Peripheral neuropathy Trigeminal neuralgia Surgical History No significant past surgical history Family History Father Heart disease MA Social History Smoking/Tobacco Use Status: Current every day Tobacco Type: cigarettes, pipe Years: 8 Other: States equivalent to 1.5 packs cigarettes and cigars Smoking risk assessment performed?: Yes Alcohol Intake: never Drug use: Never Substance use type: does not use Adopted: No Caregiver/Support person: No Foster care: No Household members: none Housing: apartment Number of Children: 2 number of grandchildren: 1 Communication Needs: Corrective Lenses Education Level: college Do you need help understanding health information?: Always current occupation: Unemployed/Leave of absence Sexually active: No Do you think of yourself as: Decline to provide Current gender identity: male What type of physical activity do you participate in: other Details: weight lifting Frequency: 3-4 times per week Magalie/Adventism: Congregational Seatbelt use: always Drive intox or ride w/intox tow motor 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 Exam Const General: no acute distress Orientation: alert HENMT Head: normal to inspection Ears: external ears normal General nose exam: external nose normal Mouth: moist mucous membranes Eyes General: appearance normal, both eyes and all related structures Neck Neck: normal visual inspection Resp Effort & Inspection: normal respiratory effort and able to speak in complete sentences Auscultation: clear to auscultation bilaterally Cardio Jugular venous pressure: no JVD Rate: regular rate Heart Sounds: no murmurs Skin General skin exam: no rashes or lesions noted Neuro General: patient alert and patient oriented x3 Extrem General: normal to inspection Psych Mental Status: mental status grossly normal Course Vital Signs Vital signs: Vital Signs Temperature 36.9 C 02/09/23 10:32 Pulse 73 02/09/23 10:32 Respiratory Rate 18 02/09/23 10:32 Blood Pressure 113/63 02/09/23 10:32 Pulse Oximetry 98 02/09/23 10:32 Temperature 36.9 C 02/09/23 10:32 Temperature Source Oral 02/09/23 10:32 Pulse 73 02/09/23 10:32 Respiratory Rate 18 02/09/23 10:32 Blood Pressure 113/63 02/09/23 10:32 Blood Pressure Position Supine 02/09/23 10:32 Pulse Oximetry 98 02/09/23 10:32 Oxygen Delivery Method Room Air 02/09/23 10:32 Oxygen Flow Rate 0 02/09/23 10:32 Pain Level 7 02/09/23 10:32 Comment Chest pressure 7/10 left chest 02/09/23 10:32
[2023-02-09 11:21] LABS: ALT 23 U/L (16-63); AST 11 U/L (15-37); Abs Immature Grans 0.03 10^3/uL (0.0-0.06); Absolute Basophil Count 0.02 10^3/uL (0.0-0.2); Absolute Eosinophil Count 0.31 10^3/uL (0.0-0.7); Absolute Monocyte Count 0.52 10^3/uL (0.1-0.8); Absolute Neutrophil Count 5.19 10^3/uL (1.2-6.7); Albumin 3.1 g/dL (3.4-5.0); Alkaline Phosphatase 76 U/L (46-116); Anion Gap 7.6 mmol/L (3-11); BUN 9 mg/dL (7-18); Basophils % 0.3; Bilirubin, Total 0.2 mg/dL (0.2-1.0); CO2 28.4 mmol/L (21.0-32.0); CREATININE 0.9 mg/dL (0.70-1.30); Calcium 8.4 mg/dL (8.5-10.1); Chloride 99 mmol/L (98-107); Eosinophils % 4.2; Estimated GFR 99.62 (mL/min/1.73m2); Glucose 244 mg/dL (74-106); HCT 31.7 % (40.0-50.0); Immature Grans % 0.4; Lymphocytes % 17.6; MCH 30.6 pg (27.0-33.0); MCHC 34.7 % (32.0-36.0); MCV 88 fL (80-95); MPV 8.5 fL (8.0-11.0); Magnesium 1.7 mg/dL (1.8-2.4); Monocytes % 7.1; Neutrophils % 70.4; Platelet Count 161 10^3/uL (130-400); RBC 3.59 10^6/uL (4.36-5.78); RDW 12.4 % (11.8-14.1); RDW-SD 40.1 fL; Sodium 135 mmol/L (136-145); Total Protein 6.9 g/dL (6.4-8.2); Troponin I < 50 ng/L (<or=60); WBC 7.37 10^3/uL (4.4-10.8)
[2023-02-09 13:40] LABS: Troponin I < 50 ng/L (<or=60)
--- NOTE | 2023-02-09 14:04 | NUR.NOTE ---
Nursing Note: Pt in agreement with disposition to home, verbalized understanding discharge instructions, aware symptoms to seek care and F/u, denied questions/concerns at discharge. Pt ambulating independently. Pt requested RTC called for transportation home, pt waiting in waiting for transportation arrival.
--- NOTE | 2023-02-09 16:01 | NUR.NOTE ---
Nursing Note: PT needs follow up next week with PCP for resources to decrease ED visits. Sharlene, ED
== END 2023-02-09 14:08 | disposition home or self-care (01) ==
PROVIDERS: Emergency Provider Emergency Medicine; PCP Family Medicine
DX: R07.2 Precordial pain (principal)
CPT/HCPCS: 36415; 80053; 93005; 99283; 83735; 84484; 85025; 93010

== ENCOUNTER 2023-02-10 11:23 | Emergency (ER) | payer MEDICAID, SELFPAY ==
--- NOTE | 2023-02-10 11:15 | RT.EKG_ITS ---
APPROVED REPORT Exam: Resting ECG Reason for Exam: chest pressure Patient Location: E HR:73 bpm ECG Measurements Heart Rate 73 AXIS AR 176 P 27 QRSd 97 QRS 18 QT 426 T 54 QTc 468 Conclusion Sinus rhythm...normal P axis, V-rate 60- 99
[2023-02-10 11:24] VITALS: BP 141/88; PULSE 72; RESP 20; TEMP 36.7; O2SAT 98
[2023-02-10 11:32] VITALS: RESP 18
--- NOTE | 2023-02-10 12:15 | DI.RAD_ITS ---
Exam(s) XR CHEST 2V PA LATERAL EXAM: XR CHEST 2V PA LATERAL CLINICAL HISTORY: left chest pain TECHNIQUE: 2D digital imaging was performed of the chest. Two images were obtained. PA and lateral views were obtained. COMPARISON: CR XR CHEST 2V PA LATERAL from 02/06/2023 FINDINGS: MEDIASTINUM: Normal. HEART: Normal. PULMONARY VASCULATURE: Normal. LUNGS: Clear. PLEURAL SPACE: No pleural effusion or pneumothorax. BONE:Within normal limits for the patient's age. OTHER FINDINGS:Normal. IMPRESSION: No acute pulmonary findings. DATA REPOSITORY: RADIATION DOSE DELIVERED:
--- NOTE | 2023-02-10 13:47 | W.ED.GENAD ---
Discharge Plan Disposition Patient Disposition: Home Discharge Details Clinical Impression: Chest pain Primary Care Provider: Brandon Foster ED Provider: Lucille Farley Home Meds and New Rx's Prescriptions: Continued Nurtec ODT 75 mg tablet,disintegrating 75 mg PO ONCE PRN (Reason: migraine headache) Qty: 10 3RF Rx Instructions: As a single dose. No more than one dose in 24 hours. chlorhexidine gluconate [Peridex] 0.12 % mouthwash 15 ml mucous membrane BID Qty: 473 5RF Rx Instructions: rinse and spit twice a day Emgality Pen 120 mg/mL pen injector 120 mg subcut QMONTH Qty: 1 11RF sumatriptan succinate 100 mg tablet See Rx Instructions PO .COMPLEX Qty: 9 5RF Rx Instructions: take 1 tab at onset of headache; if no relief, may repeat 1 tab after at least 2 hrs; max = 2 tabs/24 hrs PO Claritin Liqui-Gel 10 MG capsule 1 cap PO DAILY Qty: 90 prochlorperazine maleate 10 mg tablet See Rx Instructions .ROUTE .COMPLEX Qty: 20 2RF Dose Instruction: TAKE 1 TABLET BY MOUTH EVERY 8 HOURS NEEDED FOR NAUSEA AND VOMITING, HEADACHE Rx Instructions: TAKE 1 TABLET BY MOUTH EVERY 8 HOURS NEEDED FOR NAUSEA AND VOMITING, HEADACHE multivitamin Tablet 1 tab PO DAILY vitamin A 10,000 unit Capsule 10,000 unit PO DAILY metformin 500 mg tablet 1 tab PO BID omeprazole 20 mg capsule,delayed release(DR/EC) 40 mg PO DAILY Nurtec ODT 75 mg tablet,disintegrating 75 mg PO PRN PRN Patient Comments: Take 1 tablet by mouth once a day as needed for migraine benztropine 0.5 MG tablet 0.5 mg PO BID aspirin,buffd-calcium carb-mag 325 MG tablet 325 mg PO DAILY Risperdal Consta 25 mg/2 mL suspension,extended rel recon 25 mg IM USEASDIRECTD Patient Comments: INJECT ONE SYRINGE INTRAMUSCULARLY ONCE EVERY TWO WEEKS Rx Instructions: every 2 weeks lactulose 10 gram/15 mL solution 20 g PO DIRECTED PRN Patient Comments: TAKE ONE TO TWO TABLESPOONS BY MOUTH NEEDED WHEN 3 DAYS PASS WITHOUT BOWEL MOVEMENT lorazepam 1 mg tablet 1 mg PO QID Patient Comments: TK 1 T PO QAM THEN 2 TS HS Rx Instructions: 01/03/21 1 mg in am and 2 mg at hs Reports 1 mg in am, 1 mg in afternoon, 2 mg at hs albuterol sulfate 90 mcg/actuation aerosol powdr breath activated 2 inh IH Q6H PRN (Reason: shortness of breath or wheezing) Qty: 1 0RF Nu-Mag 71.5 mg tablet,delayed release (DR/EC) 71.5 mg PO DAILY Qty: 20 0RF atenolol 50 mg tablet 75 mg PO DAILY Rx Instructions: To take with 25mg dose for TDD 75mg daily simvastatin 40 mg tablet 40 mg PO DAILY Discharge Instructions Instructions: Chest Pain (ED) Additional Instructions: Your test today are reassuring Follow-up with your primary care physician and return earlier should you have new or worsening complaints Referrals: Brandon Foster [Primary Care Provider] - Discharge Data Discharge Date/Time-TO BE ENTERED AT DEPARTURE: 02/10/23 14:03 Medical Decision Making 57-year-old male presenting with left-sided chest pain, well-known to this facility with recent full cardiac evaluation on February 06, with similar presentation, stable vitals, and EKG does not show evidence of acute ischemia or injury We will order chest x-ray to evaluate for pulmonary pathology, per radiology interpretation my review does not show evidence of acute abnormality No indication for repeat labs at this time, resting comfortably throughout encounter, fully alert and oriented Return precautions reviewed and patient expressed understanding Encouraged to call PCP for outpatient follow-up and reassessment Smoking cessation reviewed Reviewed patient's prior evaluation, note, and imaging Medical Records Medical records reviewed: Yes I reviewed the patient's medical records. HPI General Date/Time Provider Initiated Documentation: 02/10/23 11:39. HPI Narrative: This 57-year-old gentleman presents with chest pain similar to patient's prior. Was at rest with onset. Denies known exacerbating or alleviating factors. Denies any additional complaints at this time. States the pain is predominantly in his left upper chest. He states its intermittent and resolving. Denies any calf pain or swelling, recent flights, surgeries, long drives. Denies prior history of coagulopathy. Related Data Home Medications Medication Instructions Recorded Confirmed loratadine 10 mg capsule (Claritin 1 cap PO DAILY #90 tabs 12/16/14 02/10/23 Liqui-Gel) aspirin,buffered (calcium 325 mg PO DAILY 11/18/16 02/10/23 carbonate-magnesium) 325 mg tablet benztropine 0.5 mg tablet 0.5 mg PO BID 11/18/16 02/10/23 lactulose 10 gram/15 mL oral 20 g PO DIRECTED PRN 10/03/20 02/10/23 solution risperidone microspheres 25 mg/2 25 mg IM USEASDIRECTD 10/03/20 02/10/23 mL intramuscular susp,ext release (Risperdal Consta) albuterol sulfate 90 mcg/actuation 2 inh inhalation Q6H PRN shortness 12/15/20 02/10/23 breath activated powder inhaler of breath or wheezing #1 ea multivitamin 1 tab PO DAILY 01/26/21 02/10/23 vitamin A 3,000 mcg (10,000 unit) 10,000 unit PO DAILY 01/26/21 02/10/23 capsule lorazepam 1 mg tablet 1 mg PO QID 07/05/21 02/10/23 chlorhexidine gluconate 0.12 % 15 ml mucous membrane BID dental 09/06/21 02/10/23 mouthwash (Peridex) problem #473 mL metformin 500 mg tablet 1 tab PO BID 03/18/22 02/10/23 omeprazole 20 mg capsule,delayed 40 mg PO DAILY 03/18/22 02/10/23 release galcanezumab-gnlm 120 mg/mL 120 mg subcut QMONTH #1 mL 04/05/22 02/10/23 subcutaneous pen injector (Emgality Pen) sumatriptan succinate 100 mg tablet See Rx Instructions PO .COMPLEX #9 06/28/22 02/10/23 tabs magnesium chloride 71.5 mg 71.5 mg PO DAILY #20 tabs 09/05/22 02/10/23 (magnesium chloride) tablet,delayed release (Nu-Mag) atenolol 50 mg tablet 75 mg PO DAILY 09/26/22 02/10/23 simvastatin 40 mg tablet 40 mg PO DAILY 12/25/22 02/10/23 prochlorperazine maleate 10 mg See Rx Instructions .Route 01/08/23 02/10/23 tablet .COMPLEX #20 tabs rimegepant 75 mg disintegrating 75 mg PO ONCE PRN migraine 01/17/23 02/10/23 tablet (Nurtec ODT) headache #10 tabs rimegepant 75 mg disintegrating 75 mg PO PRN PRN 02/06/23 02/10/23 tablet (Nurtec ODT) Previous Rx's Medication Instructions Recorded albuterol sulfate 90 mcg/actuation 2 inh inhalation Q6H PRN shortness 12/15/20 breath activated powder inhaler of breath or wheezing #1 ea chlorhexidine gluconate 0.12 % 15 ml mucous membrane BID dental 09/06/21 mouthwash (Peridex) problem #473 mL galcanezumab-gnlm 120 mg/mL 120 mg subcut QMONTH #1 mL 04/05/22 subcutaneous pen injector (Emgality Pen) sumatriptan succinate 100 mg tablet See Rx Instructions PO .COMPLEX #9 06/28/22 tabs magnesium chloride 71.5 mg 71.5 mg PO DAILY #20 tabs 09/05/22 (magnesium chloride) tablet,delayed release (Nu-Mag) prochlorperazine maleate 10 mg See Rx Instructions .Route 01/08/23 tablet .COMPLEX #20 tabs rimegepant 75 mg disintegrating 75 mg PO ONCE PRN migraine 01/17/23 tablet (Nurtec ODT) headache #10 tabs Allergies Allergy/AdvReac Type Severity Reaction Status Date / Time buspirone Allergy Verified 02/10/23 11:37 paliperidone Allergy Verified 02/10/23 11:37 paroxetine HCl [From Paxil] Allergy Verified 02/10/23 11:37 sertraline Allergy Verified 02/10/23 11:37 ziprasidone [From Geodon] Allergy Other (See Verified 02/10/23 11:37 Comment) aripiprazole [From Abilify] AdvReac Intermediate INVOLUNTARY Verified 02/10/23 11:37 MUSCLE MOVEMENTS divalproex sodium AdvReac Intermediate INVOLUNTARY Verified 02/10/23 11:37 [From Depakote] MUSCLE MOVEMENTS mirtazapine AdvReac Intermediate INVOLUNTARY Verified 02/10/23 11:37 MUSCLE MOVEMENTS risperidone AdvReac Intermediate INVOLUNTARY Verified 02/10/23 11:37 MUSCLE MOVEMENTS benztropine mesylate AdvReac elevated Verified 02/10/23 11:37 [From Cogentin] blood sugars enviornmental Allergy Mild Wheezing Uncoded 02/10/23 11:37 General Stated Complaint: Chest Pain CARLOS: 3 PFSH All Active Problems (Updated 02/10/23 @ 13:51 by JORDANA Salazar) Schizoaffective disorder (Acute 09/07/14) Rebekah Mariscal [facility] 09/2014- [facility] inpatient Hypothyroidism (acquired) (Acute 09/07/14) Hypercholesterolemia (Chronic 09/07/14) pt insists on lipitor 80 mg due to family hx GERD (gastroesophageal reflux disease) (Acute 09/07/14) Diabetes mellitus type 2 in obese (Acute 09/09/14) Depression (Acute 10/02/14) Left-sided chest wall pain (Acute) Hypertension (Chronic) pt requests brand name Tenormin vs atenolol 04/02/18 Chest pain (Acute) Chronic headache (Acute) Migraine headache without aura (Acute) Migraine (Chronic) Obesity (Chronic) BMI 52 Poor dentition (Acute) Tobacco use disorder (Chronic) started 2013 1.5 ppd, pipe 1-7/week, QUIT LATE OCT 2021 Allergic rhinitis (Chronic) lortadine Hiatal hernia (Chronic) protonix not effective, nexium works better 02/12/18 Anemia (Chronic) Broken teeth (Chronic) Drug-seeking behavior (Chronic ~09/20/21) Requests Ritalin from providers Medication overuse headache (Acute) Headache (Acute) Hyponatremia (Acute) Chest pain (Acute) Medical History Anxiety Dental caries Hyperlipidemia Mitral valve prolapse Peripheral neuropathy Trigeminal neuralgia Surgical History No significant past surgical history Family History Father Heart disease [place] Social History Smoking/Tobacco Use Status: Current every day Tobacco Type: cigarettes, pipe Years: 8 Other: States equivalent to 1.5 packs cigarettes and cigars Smoking risk assessment performed?: Yes Alcohol Intake: never Drug use: Never Substance use type: does not use Adopted: No Caregiver/Support person: No Foster care: No Household members: none Housing: apartment Number of Children: 2 number of grandchildren: 1 Communication Needs: Corrective Lenses Education Level: college Do you need help understanding health information?: Always current occupation: Unemployed/Leave of absence Sexually active: No Do you think of yourself as: Decline to provide Current gender identity: male What type of physical activity do you participate in: other Details: weight lifting Frequency: 3-4 times per week Magalie/Yazdanism: Hinduism Seatbelt use: always Drive intox or ride w/intox 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 Exam Const General: cooperative and comfortable Eyes Sclera: sclerae normal Resp Effort & Inspection: normal respiratory effort Auscultation: clear to auscultation bilaterally Cardio Rate: regular rate Rhythm: regular rhythm Skin General skin exam: no rashes or lesions noted Extrem General: normal to inspection Other: neurovascularly intact no calf swelling or tenderness Course Vital Signs Vital signs: Vital Signs Temperature 36.7 C 02/10/23 11:24 Pulse 72 02/10/23 11:24 Respiratory Rate 20 02/10/23 11:24 Blood Pressure 141/88 H 02/10/23 11:24 Pulse Oximetry 98 02/10/23 11:24 Temperature 36.7 C 02/10/23 11:24 Temperature Source Tympanic 02/10/23 11:24 Pulse 72 02/10/23 11:24 Respiratory Rate 18 02/10/23 11:32 Respiratory Effort Normal, Non-Labored, Short of Breath 02/10/23 11:32 Respiratory Depth Normal 02/10/23 11:32 Respiratory Pattern Normal 02/10/23 11:32 Blood Pressure 141/88 H 02/10/23 11:24 Blood Pressure Position Sitting 02/10/23 11:24 Pulse Oximetry 98 02/10/23 11:24 Oxygen Delivery Method Room Air 02/10/23 11:24 Oxygen Flow Rate 0 02/10/23 11:24 Pain Level 7 02/10/23 11:32
[2023-02-10 13:57] VITALS: BP 139/77; PULSE 61; RESP 18; TEMP 36.4; O2SAT 98
--- NOTE | 2023-02-10 14:13 | DI.VRAD_ITS ---
PROCEDURE INFORMATION: Exam: XR Chest Exam date and time: 02/10/2023 1:22 PM Age: 57 years old Clinical indication: Pain; On breathing TECHNIQUE: Imaging protocol: Radiologic exam of the chest. Views: Two views COMPARISON: CR XR CHEST 2V PA LATERAL 02/06/2023 1:21 PM FINDINGS: The Lungs: There is no significant airspace consolidation or CHF Pleural spaces: Pleural effusion, pneumothorax is not seen Heart/Mediastinum: The Heart, mediastinum are unremarkable Bones/joints: No acute bony abnormality IMPRESSION: No acute findings Dictated and Authenticated by: Ofe Haro MD. Ordering:TAWNYA Adkins MD
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
== END 2023-02-10 14:03 | disposition home or self-care (01) ==
PROVIDERS: Emergency Provider Physician Assistant; PCP Family Medicine
DX: R07.9 Chest pain, unspecified (principal)
CPT/HCPCS: 93005; 99283; 71046; 93010

== ENCOUNTER 2023-02-11 13:31 | Emergency (ER) | payer MEDICAID, SELFPAY ==
[2023-02-11 13:28] VITALS: BP 155/75; PULSE 81; RESP 20; TEMP 37.1; O2SAT 97
--- NOTE | 2023-02-11 13:45 | DI.RAD_ITS ---
Exam(s) XR CHEST 2V PA LATERAL EXAM: XR CHEST 2V PA LATERAL CLINICAL HISTORY: shortness of breath TECHNIQUE: 2D digital imaging was performed of the chest. Two images were obtained. PA and lateral views were obtained. COMPARISON: CR,XR XR CHEST 2V PA LATERAL from 02/10/2023 FINDINGS: MEDIASTINUM: Normal. HEART: Normal. PULMONARY VASCULATURE: Normal. LUNGS: Clear. PLEURAL SPACE: No pleural effusion or pneumothorax. BONE:Within normal limits for the patient's age. OTHER FINDINGS:Normal. IMPRESSION: No acute pulmonary findings. DATA REPOSITORY: RADIATION DOSE DELIVERED:
--- NOTE | 2023-02-11 13:45 | RT.EKG_ITS ---
APPROVED REPORT Exam: Resting ECG Reason for Exam: shortness of breath Patient Location: E HR:73 bpm ECG Measurements Heart Rate 73 AXIS AR 190 P 44 QRSd 95 QRS 23 QT 409 T 78 QTc 451 Conclusion Sinus rhythm...normal P axis, V-rate 60- 99 Physician: no stemi
[2023-02-11 14:22] LABS: Abs Immature Grans 0.04 10^3/uL (0.0-0.06); Absolute Basophil Count 0.02 10^3/uL (0.0-0.2); Absolute Eosinophil Count 0.26 10^3/uL (0.0-0.7); Absolute Lymphocyte Count 1.18 10^3/uL (1.2-3.4); Absolute Monocyte Count 0.42 10^3/uL (0.1-0.8); Absolute Neutrophil Count 5.88 10^3/uL (1.2-6.7); Basophils % 0.3; Eosinophils % 3.3; HCT 36.2 % (40.0-50.0); HGB 12.6 g/dL (13.5-17.5); Immature Grans % 0.5; Lymphocytes % 15.1; MCH 30.5 pg (27.0-33.0); MCHC 34.8 % (32.0-36.0); MCV 88 fL (80-95); MPV 8.4 fL (8.0-11.0); Monocytes % 5.4; Neutrophils % 75.4; Platelet Count 193 10^3/uL (130-400); RBC 4.13 10^6/uL (4.36-5.78); RDW 12.4 % (11.8-14.1); RDW-SD 39.8 fL
[2023-02-11] MEDS: Ondansetron O.D.T. 4 MG TABEF PO (14:34)
[2023-02-11] MEDS: clonazePAM 0.5 MG TAB PO (14:34)
[2023-02-11 14:46] LABS: ALT 25 U/L (16-63); AST 15 U/L (15-37); Albumin 3.6 g/dL (3.4-5.0); Alkaline Phosphatase 88 U/L (46-116); Anion Gap 5.2 mmol/L (3-11); BUN 4 mg/dL (7-18); Bilirubin, Total 0.3 mg/dL (0.2-1.0); CO2 30.8 mmol/L (21.0-32.0); CREATININE 0.9 mg/dL (0.70-1.30); Chloride 98 mmol/L (98-107); Estimated GFR 99.62 (mL/min/1.73m2); Glucose 243 mg/dL (74-106); Potassium 4.7 mmol/L (3.5-5.1); Sodium 134 mmol/L (136-145); Total Protein 7.8 g/dL (6.4-8.2); Troponin I < 50 ng/L (<or=60)
[2023-02-11 14:47] LABS: Source Nasal/Nares
[2023-02-11 14:51] LABS: Magnesium 1.9 mg/dL (1.8-2.4); TSH (W/Ref FT4) 7.96 uIU/mL (0.36-3.74)
--- NOTE | 2023-02-11 15:05 | DI.VRAD_ITS ---
PROCEDURE INFORMATION: Exam: XR Chest Exam date and time: 02/11/2023 2:55 PM Age: 57 years old Clinical indication: Shortness of breath TECHNIQUE: Imaging protocol: Radiologic exam of the chest. Views: 2 views. COMPARISON: CR XR CHEST 2V PA LATERAL 02/10/2023 1:22 PM FINDINGS: Lungs: Unremarkable. No consolidation. Pleural spaces: Unremarkable. No pleural effusion. No pneumothorax. Heart/Mediastinum: Unremarkable. No cardiomegaly. Bones/joints: Unremarkable. IMPRESSION: No acute findings. Dictated and Authenticated by: Brett Jang MD. Ordering:TAWNYA Adkins MD
[2023-02-11 15:09] LABS: FREE T4 1.03 ng/dL (0.76-1.46)
--- NOTE | 2023-02-11 15:19 | ED.GENADUL_ITS ---
Discharge Plan Disposition Patient Disposition: Home Condition: Stable Discharge Details Clinical Impression: Chest pain, Acute hyperglycemia Primary Care Provider: Brandon Foster ED Provider: Liang Ng Home Meds and New Rx's Prescriptions: Continued Nurtec ODT 75 mg tablet,disintegrating 75 mg PO ONCE PRN (Reason: migraine headache) Qty: 10 3RF Rx Instructions: As a single dose. No more than one dose in 24 hours. chlorhexidine gluconate [Peridex] 0.12 % mouthwash 15 ml mucous membrane BID Qty: 473 5RF Rx Instructions: rinse and spit twice a day Emgality Pen 120 mg/mL pen injector 120 mg subcut QMONTH Qty: 1 11RF sumatriptan succinate 100 mg tablet See Rx Instructions PO .COMPLEX Qty: 9 5RF Rx Instructions: take 1 tab at onset of headache; if no relief, may repeat 1 tab after at least 2 hrs; max = 2 tabs/24 hrs PO Claritin Liqui-Gel 10 MG capsule 1 cap PO DAILY Qty: 90 prochlorperazine maleate 10 mg tablet See Rx Instructions .ROUTE .COMPLEX Qty: 20 2RF Dose Instruction: TAKE 1 TABLET BY MOUTH EVERY 8 HOURS NEEDED FOR NAUSEA AND VOMITING, HEADACHE Rx Instructions: TAKE 1 TABLET BY MOUTH EVERY 8 HOURS NEEDED FOR NAUSEA AND VOMITING, HEADACHE multivitamin Tablet 1 tab PO DAILY vitamin A 10,000 unit Capsule 10,000 unit PO DAILY metformin 500 mg tablet 1 tab PO BID omeprazole 20 mg capsule,delayed release(DR/EC) 40 mg PO DAILY Nurtec ODT 75 mg tablet,disintegrating 75 mg PO PRN PRN Patient Comments: Take 1 tablet by mouth once a day as needed for migraine benztropine 0.5 MG tablet 0.5 mg PO BID aspirin,buffd-calcium carb-mag 325 MG tablet 325 mg PO DAILY Risperdal Consta 25 mg/2 mL suspension,extended rel recon 25 mg IM USEASDIRECTD Patient Comments: INJECT ONE SYRINGE INTRAMUSCULARLY ONCE EVERY TWO WEEKS Rx Instructions: every 2 weeks lactulose 10 gram/15 mL solution 20 g PO DIRECTED PRN Patient Comments: TAKE ONE TO TWO TABLESPOONS BY MOUTH NEEDED WHEN 3 DAYS PASS WITHOUT BOWEL MOVEMENT lorazepam 1 mg tablet 1 mg PO QID Patient Comments: TK 1 T PO QAM THEN 2 TS HS Rx Instructions: 01/03/21 1 mg in am and 2 mg at hs Reports 1 mg in am, 1 mg in afternoon, 2 mg at hs albuterol sulfate 90 mcg/actuation aerosol powdr breath activated 2 inh IH Q6H PRN (Reason: shortness of breath or wheezing) Qty: 1 0RF Nu-Mag 71.5 mg tablet,delayed release (DR/EC) 71.5 mg PO DAILY Qty: 20 0RF atenolol 50 mg tablet 75 mg PO DAILY Rx Instructions: To take with 25mg dose for TDD 75mg daily simvastatin 40 mg tablet 40 mg PO DAILY Discharge Instructions Instructions: Chest Pain (ED), Diabetic Hyperglycemia (ED) Additional Instructions: Please continue on your prescribed medications. Please follow-up with your primary care physician on Sunday. Return earlier should you have new or worsening complaints. I recommend decreasing your daily soda consumption as your blood glucose is quite elevated and this is likely contributing. Return to the ER should you have any worsening or new concerning symptoms. Referrals: Brandon Foster [Primary Care Provider] - Discharge Data Discharge Date/Time-TO BE ENTERED AT DEPARTURE: 02/11/23 19:28 Medical Decision Making <JORDANA Salazar - Last Filed: 02/12/23 18:01> 47-year-old male known to this facility presents with shortness of breath and weakness, started when he woke from sleep Chest x-ray does not show evidence of acute abnormality, aside from mildly elevated TSH which patient will need to follow-up regarding, his EKG does not show evidence of acute abnormality Troponin within normal limits Reviewed recent chest CTA that did not show evidence of acute pulmonary emboli sm, had a D-dimer on 02 09 that was within normal limits Patient is resting comfortably in room, he is mildly nauseous, he was given 4 mg of Zofran and additional dose of his Klonopin, 0.5 mg He has been in no acute distress throughout the entirety of this encounter He will have a repeat troponin level at 410, 2-hour troponin has been ordered for reassessment Care be transitioned to oncoming provider at 1600 in stable condition I spent approximately 15 minutes reviewing patient's prior examinations, labs, and diagnostic imaging Medical Records Medical records reviewed: Yes I reviewed the patient's medical records. <Liang Ng MD - Last Filed: 02/11/23 19:02> Lab Data Lab results reviewed: Yes I reviewed the patient's lab results. Labs: Laboratory Tests Range/Units 02/11/23 02/11/23 02/11/23 14:10 14:10 14:10 WBC (4.4-10.8) 10^3/uL 7.80 RBC (4.36-5.78) 10^6/uL 4.13 L Hgb (13.5-17.5) g/dL 12.6 L Hct (40.0-50.0) % 36.2 L MCV (80-95) fL 88 MCH (27.0-33.0) pg 30.5 MCHC (32.0-36.0) % 34.8 RDW (11.8-14.1) % 12.4 Plt Count (130-400) 10^3/uL 193 MPV (8.0-11.0) fL 8.4 Immature Gran % 0.5 Neutrophils % 75.4 Lymphocytes % 15.1 Monocytes % 5.4 Eosinophils % 3.3 Basophils % 0.3 Nucleated RBC % (0.0-0.3) % 0.0 Absolute Neutrophils (1.2-6.7) 10^3/uL 5.88 Absolute Lymphocytes (1.2-3.4) 10^3/uL 1.18 L Absolute Monocytes (0.1-0.8) 10^3/uL 0.42 Absolute Eosinophils (0.0-0.7) 10^3/uL 0.26 Absolute Basophils (0.0-0.2) 10^3/uL 0.02 Sodium (136-145) mmol/L 134 L Potassium (3.5-5.1) mmol/L 4.7 Chloride (98-107) mmol/L 98 Carbon Dioxide (21.0-32.0) mmol/L 30.8 Anion Gap (3-11) mmol/L 5.2 BUN (7-18) mg/dL 4 L Creatinine (0.70-1.30) mg/dL 0.9 Est GFR (CKD-EPI 2020) (mL/min/1.73m2) 99.62 Glucose (74-106) mg/dL 243 H Calcium (8.5-10.1) mg/dL 9.0 Magnesium (1.8-2.4) mg/dL 1.9 Total Bilirubin (0.2-1.0) mg/dL 0.3 AST (15-37) U/L 15 ALT (16-63) U/L 25 Alkaline Phosphatase (46-116) U/L 88 Troponin I (<or=60) ng/L < 50 Total Protein (6.4-8.2) g/dL 7.8 Albumin (3.4-5.0) g/dL 3.6 TSH (0.36-3.74) uIU/mL 7.96 H Free T4 (0.76-1.46) ng/dL 1.03 COVID-19 Source SARS-CoV-2 (PCR) (Negative) Range/Units 02/11/23 02/11/23 14:25 17:40 WBC (4.4-10.8) 10^3/uL RBC (4.36-5.78) 10^6/uL Hgb (13.5-17.5) g/dL Hct (40.0-50.0) % MCV (80-95) fL MCH (27.0-33.0) pg MCHC (32.0-36.0) % RDW (11.8-14.1) % Plt Count (130-400) 10^3/uL MPV (8.0-11.0) fL Immature Gran % Neutrophils % Lymphocytes % Monocytes % Eosinophils % Basophils % Nucleated RBC % (0.0-0.3) % Absolute Neutrophils (1.2-6.7) 10^3/uL Absolute Lymphocytes (1.2-3.4) 10^3/uL Absolute Monocytes (0.1-0.8) 10^3/uL Absolute Eosinophils (0.0-0.7) 10^3/uL Absolute Basophils (0.0-0.2) 10^3/uL Sodium (136-145) mmol/L Potassium (3.5-5.1) mmol/L Chloride (98-107) mmol/L Carbon Dioxide (21.0-32.0) mmol/L Anion Gap (3-11) mmol/L BUN (7-18) mg/dL Creatinine (0.70-1.30) mg/dL Est GFR (CKD-EPI 2020) (mL/min/1.73m2) Glucose (74-106) mg/dL Calcium (8.5-10.1) mg/dL Magnesium (1.8-2.4) mg/dL Total Bilirubin (0.2-1.0) mg/dL AST (15-37) U/L ALT (16-63) U/L Alkaline Phosphatase (46-116) U/L Troponin I (<or=60) ng/L < 50 Total Protein (6.4-8.2) g/dL Albumin (3.4-5.0) g/dL TSH (0.36-3.74) uIU/mL Free T4 (0.76-1.46) ng/dL COVID-19 Source Nasal/Nares SARS-CoV-2 (PCR) (Negative) Negative Date: 02/11/23 Time: 18:51 Note: Patient seen, examined, and discussed with Lucille SILVEIRA. I agree with treatment plan as discussed/documented. Plan at signout was to follow-up on delta troponin. Labs reviewed and negative. Patient reassessed and remained stable. Plan for discharge with outpatient follow-up. Disposition decision was made weighing the risks and benefits of hospitalization versus outpatient treatment, the risk for further decompensation, and the patient's wishes. The patient was stable and requested discharge. Prior to discharge, my usual and customary return precautions were reviewed with the patient - this included follow-up instructions and reason to return to the emergency department if condition worsens, does not improve as expected, or other new concerns arise. HPI <JORDANA Salazar - Last Filed: 02/12/23 18:01> General Date/Time Provider Initiated Documentation: 02/11/23 13:32 . HPI Narrative: This 57-year-old male known to this facility with history of anxiety, schizoaffective disorder, hypertension, hyperlipidemia, diabetes presents with report of waking up for sleep with acute onset of shortness of breath and weakness, and nausea. He denies any chest discomfort. He denies any calf pain or swelling. He felt fine prior to this episode. He recalls the entirety of the event per patient. He was supine watching TV when the event occurred per patient. Denies history of coagulopathy, recent flights, surgeries, long drives. He smokes tobacco, denies any illicit drug use. Related Data Home Medications Medication Instructions Recorded Confirmed loratadine 10 mg capsule (Claritin 1 cap PO DAILY #90 tabs 12/16/14 02/11/23 Liqui-Gel) aspirin,buffered (calcium 325 mg PO DAILY 11/18/16 02/11/23 carbonate-magnesium) 325 mg tablet benztropine 0.5 mg tablet 0.5 mg PO BID 11/18/16 02/11/23 lactulose 10 gram/15 mL oral 20 g PO DIRECTED PRN 10/03/20 02/11/23 solution risperidone microspheres 25 mg/2 25 mg IM USEASDIRECTD 10/03/20 02/11/23 mL intramuscular susp,ext release (Risperdal Consta) albuterol sulfate 90 mcg/actuation 2 inh inhalation Q6H PRN shortness 12/15/20 02/11/23 breath activated powder inhaler of breath or wheezing #1 ea multivitamin 1 tab PO DAILY 01/26/21 02/11/23 vitamin A 3,000 mcg (10,000 unit) 10,000 unit PO DAILY 01/26/21 02/11/23 capsule lorazepam 1 mg tablet 1 mg PO QID 07/05/21 02/11/23 chlorhexidine gluconate 0.12 % 15 ml mucous membrane BID dental 09/06/21 02/11/23 mouthwash (Peridex) problem #473 mL metformin 500 mg tablet 1 tab PO BID 03/18/22 02/11/23 omeprazole 20 mg capsule,delayed 40 mg PO DAILY 03/18/22 02/11/23 release galcanezumab-gnlm 120 mg/mL 120 mg subcut QMONTH #1 mL 04/05/22 02/11/23 subcutaneous pen injector (Emgality Pen) sumatriptan succinate 100 mg tablet See Rx Instructions PO .COMPLEX #9 06/28/22 02/11/23 tabs magnesium chloride 71.5 mg 71.5 mg PO DAILY #20 tabs 09/05/22 02/11/23 (magnesium chloride) tablet,delayed release (Nu-Mag) atenolol 50 mg tablet 75 mg PO DAILY 09/26/22 02/11/23 simvastatin 40 mg tablet 40 mg PO DAILY 12/25/22 02/11/23 prochlorperazine maleate 10 mg See Rx Instructions .Route 01/08/23 02/11/23 tablet .COMPLEX #20 tabs rimegepant 75 mg disintegrating 75 mg PO ONCE PRN migraine 01/17/23 02/11/23 tablet (Nurtec ODT) headache #10 tabs rimegepant 75 mg disintegrating 75 mg PO PRN PRN 02/06/23 02/11/23 tablet (Nurtec ODT) Previous Rx's Medication Instructions Recorded albuterol sulfate 90 mcg/actuation 2 inh inhalation Q6H PRN shortness 12/15/20 breath activated powder inhaler of breath or wheezing #1 ea chlorhexidine gluconate 0.12 % 15 ml mucous membrane BID dental 09/06/21 mouthwash (Peridex) problem #473 mL galcanezumab-gnlm 120 mg/mL 120 mg subcut QMONTH #1 mL 04/05/22 subcutaneous pen injector (Emgality Pen) sumatriptan succinate 100 mg tablet See Rx Instructions PO .COMPLEX #9 06/28/22 tabs magnesium chloride 71.5 mg 71.5 mg PO DAILY #20 tabs 09/05/22 (magnesium chloride) tablet,delayed release (Nu-Mag) prochlorperazine maleate 10 mg See Rx Instructions .Route 01/08/23 tablet .COMPLEX #20 tabs rimegepant 75 mg disintegrating 75 mg PO ONCE PRN migraine 01/17/23 tablet (Nurtec ODT) headache #10 tabs Allergies Allergy/AdvReac Type Severity Reaction Status Date / Time buspirone Allergy Verified 02/11/23 13:31 paliperidone Allergy Verified 02/11/23 13:31 paroxetine HCl [From Paxil] Allergy Verified 02/11/23 13:31 sertraline Allergy Verified 02/11/23 13:31 ziprasidone [From Geodon] Allergy Other (See Verified 02/11/23 13:31 Comment) aripiprazole [From Abilify] AdvReac Intermediate INVOLUNTARY Verified 02/11/23 13:31 MUSCLE MOVEMENTS divalproex sodium AdvReac Intermediate INVOLUNTARY Verified 02/11/23 13:31 [From Depakote] MUSCLE MOVEMENTS mirtazapine AdvReac Intermediate INVOLUNTARY Verified 02/11/23 13:31 MUSCLE MOVEMENTS risperidone AdvReac Intermediate INVOLUNTARY Verified 02/11/23 13:31 MUSCLE MOVEMENTS benztropine mesylate AdvReac elevated Verified 02/11/23 13:31 [From Cogentin] blood sugars enviornmental Allergy Mild Wheezing Uncoded 02/11/23 13:31 General Stated Complaint: [facility]Medical CARLOS: 4 PFSH <JORDANA Salazar - Last Filed: 02/12/23 18:01> All Active Problems (Updated 02/11/23 @ 15:26 by JORDANA Salazar) Schizoaffective disorder (Acute 09/07/14) Rebekah Mariscal [facility] 09/2014- [facility] inpatient Hypothyroidism (acquired) (Acute 09/07/14) Hypercholesterolemia (Chronic 09/07/14) pt insists on lipitor 80 mg due to family hx GERD (gastroesophageal reflux disease) (Acute 09/07/14) Diabetes mellitus type 2 in obese (Acute 09/09/14) Depression (Acute 10/02/14) Left-sided chest wall pain (Acute) Hypertension (Chronic) pt requests brand name Tenormin vs atenolol 04/02/18 Chest pain (Acute) Chronic headache (Acute) Migraine headache without aura (Acute) Migraine (Chronic) Obesity (Chronic) BMI 52 Poor dentition (Acute) Tobacco use disorder (Chronic) started 2013 1.5 ppd, pipe 1-7/week, QUIT LATE OCT 2021 Allergic rhinitis (Chronic) lortadine Hiatal hernia (Chronic) protonix not effective, nexium works better 02/12/18 Anemia (Chronic) Broken teeth (Chronic) Drug-seeking behavior (Chronic ~09/20/21) Requests Ritalin from providers Medication overuse headache (Acute) Headache (Acute) Hyponatremia (Acute) Chest pain (Acute) Acute hyperglycemia (Acute) Medical History Anxiety Dental caries Hyperlipidemia Mitral valve prolapse Peripheral neuropathy Trigeminal neuralgia Surgical History No significant past surgical history Family History Father Heart disease [place] Social History Smoking/Tobacco Use Status: Current every day Tobacco Type: cigarettes, pipe Years: 8 Other: States equivalent to 1.5 packs cigarettes and cigars Smoking risk assessment performed?: Yes Alcohol Intake: never Drug use: Never Substance use type: does not use Adopted: No Caregiver/Support person: No Foster care: No Household members: none Housing: apartment Number of Children: 2 number of grandchildren: 1 Communication Needs: Corrective Lenses Education Level: college Do you need help understanding health information?: Always current occupation: Unemployed/Leave of absence Sexually active: No Do you think of yourself as: Decline to provide Current gender identity: male What type of physical activity do you participate in: other Details: weight lifting Frequency: 3-4 times per week Magalie/Hindu: Druze Seatbelt use: always Drive intox or ride w/intox medical 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 Exam <JORDANA Salazar - Last Filed: 02/12/23 18:01> Const General: cooperative, comfortable and no acute distress Orientation: alert and oriented x3 HENMT Mouth: oral mucosae normal Resp Effort & Inspection: normal respiratory effort Auscultation: clear to auscultation bilaterally Cardio Rate: regular rate Rhythm: regular rhythm Neuro General: patient alert Extrem Other: No calf swelling or tenderness appreciated Course <JORDANA Salazar - Last Filed: 02/12/23 18:01> Vital Signs Vital signs: Vital Signs Temperature 37.1 C 02/11/23 13:28 Pulse 81 02/11/23 13:28 Respiratory Rate 20 02/11/23 13:28 Blood Pressure 155/75 H 02/11/23 13:28 Pulse Oximetry 97 02/11/23 13:28 Temperature 37.1 C 02/11/23 13:28 Temperature Source Oral 02/11/23 13:28 Pulse 81 02/11/23 13:28 Respiratory Rate 20 02/11/23 13:28 Respiratory Effort Normal, Non-Labored 02/11/23 14:17 Respiratory Depth Normal 02/11/23 14:17 Respiratory Pattern Normal 02/11/23 14:17 Blood Pressure 155/75 H 02/11/23 13:28 Blood Pressure Position Supine 02/11/23 13:28 Pulse Oximetry 97 02/11/23 13:28 Oxygen Delivery Method Room Air 02/11/23 13:28 Oxygen Flow Rate 0 02/11/23 13:28 Lab/Test Results Lab/Test Results: Laboratory Tests Range/Units 02/11/23 02/11/23 02/11/23 14:10 14:10 14:10 WBC (4.4-10.8) 10^3/uL 7.80 RBC (4.36-5.78) 10^6/uL 4.13 L Hgb (13.5-17.5) g/dL 12.6 L Hct (40.0-50.0) % 36.2 L MCV (80-95) fL 88 MCH (27.0-33.0) pg 30.5 MCHC (32.0-36.0) % 34.8 RDW (11.8-14.1) % 12.4 Plt Count (130-400) 10^3/uL 193 MPV (8.0-11.0) fL 8.4 Immature Gran % 0.5 Neutrophils % 75.4 Lymphocytes % 15.1 Monocytes % 5.4 Eosinophils % 3.3 Basophils % 0.3 Nucleated RBC % (0.0-0.3) % 0.0 Absolute Neutrophils (1.2-6.7) 10^3/uL 5.88 Absolute Lymphocytes (1.2-3.4) 10^3/uL 1.18 L Absolute Monocytes (0.1-0.8) 10^3/uL 0.42 Absolute Eosinophils (0.0-0.7) 10^3/uL 0.26 Absolute Basophils (0.0-0.2) 10^3/uL 0.02 Sodium (136-145) mmol/L 134 L Potassium (3.5-5.1) mmol/L 4.7 Chloride (98-107) mmol/L 98 Carbon Dioxide (21.0-32.0) mmol/L 30.8 Anion Gap (3-11) mmol/L 5.2 BUN (7-18) mg/dL 4 L Creatinine (0.70-1.30) mg/dL 0.9 Est GFR (CKD-EPI 2020) (mL/min/1.73m2) 99.62 Glucose (74-106) mg/dL 243 H Calcium (8.5-10.1) mg/dL 9.0 Magnesium (1.8-2.4) mg/dL 1.9 Total Bilirubin (0.2-1.0) mg/dL 0.3 AST (15-37) U/L 15 ALT (16-63) U/L 25 Alkaline Phosphatase (46-116) U/L 88 Troponin I (<or=60) ng/L < 50 Total Protein (6.4-8.2) g/dL 7.8 Albumin (3.4-5.0) g/dL 3.6 TSH (0.36-3.74) uIU/mL 7.96 H Free T4 (0.76-1.46) ng/dL 1.03 COVID-19 Source Range/Units 02/11/23 14:25 WBC (4.4-10.8) 10^3/uL RBC (4.36-5.78) 10^6/uL Hgb (13.5-17.5) g/dL Hct (40.0-50.0) % MCV (80-95) fL MCH (27.0-33.0) pg MCHC (32.0-36.0) % RDW (11.8-14.1) % Plt Count (130-400) 10^3/uL MPV (8.0-11.0) fL Immature Gran % Neutrophils % Lymphocytes % Monocytes % Eosinophils % Basophils % Nucleated RBC % (0.0-0.3) % Absolute Neutrophils (1.2-6.7) 10^3/uL Absolute Lymphocytes (1.2-3.4) 10^3/uL Absolute Monocytes (0.1-0.8) 10^3/uL Absolute Eosinophils (0.0-0.7) 10^3/uL Absolute Basophils (0.0-0.2) 10^3/uL Sodium (136-145) mmol/L Potassium (3.5-5.1) mmol/L Chloride (98-107) mmol/L Carbon Dioxide (21.0-32.0) mmol/L Anion Gap (3-11) mmol/L BUN (7-18) mg/dL Creatinine (0.70-1.30) mg/dL Est GFR (CKD-EPI 2020) (mL/min/1.73m2) Glucose (74-106) mg/dL Calcium (8.5-10.1) mg/dL Magnesium (1.8-2.4) mg/dL Total Bilirubin (0.2-1.0) mg/dL AST (15-37) U/L ALT (16-63) U/L Alkaline Phosphatase (46-116) U/L Troponin I (<or=60) ng/L Total Protein (6.4-8.2) g/dL Albumin (3.4-5.0) g/dL TSH (0.36-3.74) uIU/mL Free T4 (0.76-1.46) ng/dL COVID-19 Source Nasal/Nares Sign Out <JORDANA Salazar - Last Filed: 02/12/23 18:01> Sign Out Data: Sign Out Comment: pending repeat troponin at 1810 Last updated by Lucille Farley PA at 02/11/23 15:52
[2023-02-11 15:29] LABS: COVID-19 PCR Negative (Negative)
[2023-02-11 16:18] VITALS: PULSE 68
[2023-02-11 18:08] LABS: Troponin I < 50 ng/L (<or=60)
[2023-02-11 18:55] VITALS: BP 147/90; PULSE 69; RESP 18; O2SAT 98
== END 2023-02-11 19:28 | disposition home or self-care (01) ==
PROVIDERS: Physician Assistant; Emergency Provider Student in an Organized Health Care Education/Training Program; PCP Family Medicine
DX: R07.9 Chest pain, unspecified (principal); R94.6 Abnormal results of thyroid function studies; I10 Essential (primary) hypertension; E78.5 Hyperlipidemia, unspecified; E11.65 Type 2 diabetes mellitus with hyperglycemia; E11.42 Type 2 diabetes mellitus with diabetic polyneuropathy; F25.9 Schizoaffective disorder, unspecified; F17.210 Nicotine dependence, cigarettes, uncomplicated; Z20.822 Contact with and (suspected) exposure to COVID-19; Z79.82 Long term (current) use of aspirin
CPT/HCPCS: 36415; 80053; 87635; 93005; 99284; 71046; 83735; 84439; 84443; 84484; 85025; 93010; 99285

== ENCOUNTER 2023-02-19 12:02 | Emergency (ER) | payer MEDICAID, SELFPAY ==
--- NOTE | 2023-02-19 11:45 | RT.EKG_ITS ---
APPROVED REPORT Exam: Resting ECG Reason for Exam: chest pain Patient Location: E HR:70 bpm ECG Measurements Heart Rate 70 AXIS VT 188 P 44 QRSd 96 QRS 29 QT 409 T 62 QTc 441 Conclusion Sinus rhythm...normal P axis, V-rate 60- 99 sinus rhtyhm, normal axis, normal intervals, non ischemic
[2023-02-19 12:01] VITALS: BP 131/87; PULSE 70; RESP 17; O2SAT 96
[2023-02-19 12:03] VITALS: RESP 17
--- NOTE | 2023-02-19 13:04 | ED.GENADUL_ITS ---
Discharge Plan Disposition Patient Disposition: Home Condition: Improving Discharge Details Chief Complaint: Chest Pain Clinical Impression: Chest pain Primary Care Provider: Brandon Foster ED Provider: Lb Cordero Home Meds and New Rx's Prescriptions: No Action Nurtec ODT 75 mg tablet,disintegrating 75 mg PO ONCE PRN (Reason: migraine headache) Qty: 10 3RF Rx Instructions: As a single dose. No more than one dose in 24 hours. chlorhexidine gluconate [Peridex] 0.12 % mouthwash 15 ml mucous membrane BID Qty: 473 5RF Rx Instructions: rinse and spit twice a day Emgality Pen 120 mg/mL pen injector 120 mg subcut QMONTH Qty: 1 11RF sumatriptan succinate 100 mg tablet See Rx Instructions PO .COMPLEX Qty: 9 5RF Rx Instructions: take 1 tab at onset of headache; if no relief, may repeat 1 tab after at least 2 hrs; max = 2 tabs/24 hrs PO Claritin Liqui-Gel 10 MG capsule 1 cap PO DAILY Qty: 90 prochlorperazine maleate 10 mg tablet See Rx Instructions .ROUTE .COMPLEX Qty: 20 2RF Dose Instruction: TAKE 1 TABLET BY MOUTH EVERY 8 HOURS NEEDED FOR NAUSEA AND VOMITING, HEADA MARILYN Rx Instructions: TAKE 1 TABLET BY MOUTH EVERY 8 HOURS NEEDED FOR NAUSEA AND VOMITING, HEADACHE multivitamin Tablet 1 tab PO DAILY vitamin A 10,000 unit Capsule 10,000 unit PO DAILY metformin 500 mg tablet 1 tab PO BID omeprazole 20 mg capsule,delayed release(DR/EC) 40 mg PO DAILY Nurtec ODT 75 mg tablet,disintegrating 75 mg PO PRN PRN Patient Comments: Take 1 tablet by mouth once a day as needed for migraine benztropine 0.5 MG tablet 0.5 mg PO BID aspirin,buffd-calcium carb-mag 325 MG tablet 325 mg PO DAILY Risperdal Consta 25 mg/2 mL suspension,extended rel recon 25 mg IM USEASDIRECTD Patient Comments: INJECT ONE SYRINGE INTRAMUSCULARLY ONCE EVERY TWO WEEKS Rx Instructions: every 2 weeks lactulose 10 gram/15 mL solution 20 g PO DIRECTED PRN Patient Comments: TAKE ONE TO TWO TABLESPOONS BY MOUTH NEEDED WHEN 3 DAYS PASS WITHOUT BOWEL MOVEMENT lorazepam 1 mg tablet 1 mg PO QID Patient Comments: TK 1 T PO QAM THEN 2 TS HS Rx Instructions: 01/03/21 1 mg in am and 2 mg at hs Reports 1 mg in am, 1 mg in afternoon, 2 mg at hs albuterol sulfate 90 mcg/actuation aerosol powdr breath activated 2 inh IH Q6H PRN (Reason: shortness of breath or wheezing) Qty: 1 0RF Nu-Mag 71.5 mg tablet,delayed release (DR/EC) 71.5 mg PO DAILY Qty: 20 0RF atenolol 50 mg tablet 75 mg PO DAILY Rx Instructions: To take with 25mg dose for TDD 75mg daily simvastatin 40 mg tablet 40 mg PO DAILY Discharge Instructions Instructions: Chest Pain (ED) Additional Instructions: With your primary care physician Medical Decision Making 57-year-old male history of schizoaffective disorder, diabetes GERD obesity, presents with acute on chronic left anterior chest pain nonexertional. Hemodynamically stable afebrile nontoxic nonhypoxic, no respiratory distress. EKG unchanged from priors normal sinus rhythm nonischemic. Multiple negative work-ups within the past several weeks to months. High clinical suspicion for anxiety was also consider musculoskeletal such as costochondritis versus pleurisy. Low suspicion for ACS PE aortic pathology low suspicion for pneumothorax or pneumonia. Counseled patient regarding the importance of close follow-up. 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 Patient be given Toradol as an anti-inflammatory. Discharge home with return precautions HPI General Date/Time Provider Initiated Documentation: 02/19/23 12:57 . HPI Narrative: 57-year-old male history of schizoaffective disorder GERD diabetes chronic recurrent chest discomfort, presents with left anterior chest discomfort over the past several days, recent negative work-up, no shortness of breath nausea vomiting fevers or chills Related Data Home Medications Medication Instructions Recorded Confirmed loratadine 10 mg capsule (Claritin 1 cap PO DAILY #90 tabs 12/16/14 02/19/23 Liqui-Gel) aspirin,buffered (calcium 325 mg PO DAILY 11/18/16 02/19/23 carbonate-magnesium) 325 mg tablet benztropine 0.5 mg tablet 0.5 mg PO BID 11/18/16 02/19/23 lactulose 10 gram/15 mL oral 20 g PO DIRECTED PRN 10/03/20 02/19/23 solution risperidone microspheres 25 mg/2 25 mg IM USEASDIRECTD 10/03/20 02/19/23 mL intramuscular susp,ext release (Risperdal Consta) albuterol sulfate 90 mcg/actuation 2 inh inhalation Q6H PRN shortness 12/15/20 02/19/23 breath activated powder inhaler of breath or wheezing #1 ea multivitamin 1 tab PO DAILY 01/26/21 02/19/23 vitamin A 3,000 mcg (10,000 unit) 10,000 unit PO DAILY 01/26/21 02/19/23 capsule lorazepam 1 mg tablet 1 mg PO QID 07/05/21 02/19/23 chlorhexidine gluconate 0.12 % 15 ml mucous membrane BID dental 09/06/21 02/19/23 mouthwash (Peridex) problem #473 mL metformin 500 mg tablet 1 tab PO BID 03/18/22 02/19/23 omeprazole 20 mg capsule,delayed 40 mg PO DAILY 03/18/22 02/19/23 release galcanezumab-gnlm 120 mg/mL 120 mg subcut QMONTH #1 mL 04/05/22 02/19/23 subcutaneous pen injector (Emgality Pen) sumatriptan succinate 100 mg tablet See Rx Instructions PO .COMPLEX #9 06/28/22 02/19/23 tabs magnesium chloride 71.5 mg 71.5 mg PO DAILY #20 tabs 09/05/22 02/19/23 (magnesium chloride) tablet,delayed release (Nu-Mag) atenolol 50 mg tablet 75 mg PO DAILY 09/26/22 02/19/23 simvastatin 40 mg tablet 40 mg PO DAILY 12/25/22 02/19/23 prochlorperazine maleate 10 mg See Rx Instructions .Route 01/08/23 02/19/23 tablet .COMPLEX #20 tabs rimegepant 75 mg disintegrating 75 mg PO ONCE PRN migraine 01/17/23 02/19/23 tablet (Nurtec ODT) headache #10 tabs rimegepant 75 mg disintegrating 75 mg PO PRN PRN 02/06/23 02/19/23 tablet (Nurtec ODT) Previous Rx's Medication Instructions Recorded albuterol sulfate 90 mcg/actuation 2 inh inhalation Q6H PRN shortness 12/15/20 breath activated powder inhaler of breath or wheezing #1 ea chlorhexidine gluconate 0.12 % 15 ml mucous membrane BID dental 09/06/21 mouthwash (Peridex) problem #473 mL galcanezumab-gnlm 120 mg/mL 120 mg subcut QMONTH #1 mL 04/05/22 subcutaneous pen injector (Emgality Pen) sumatriptan succinate 100 mg tablet See Rx Instructions PO .COMPLEX #9 06/28/22 tabs magnesium chloride 71.5 mg 71.5 mg PO DAILY #20 tabs 09/05/22 (magnesium chloride) tablet,delayed release (Nu-Mag) prochlorperazine maleate 10 mg See Rx Instructions .Route 01/08/23 tablet .COMPLEX #20 tabs rimegepant 75 mg disintegrating 75 mg PO ONCE PRN migraine 01/17/23 tablet (Nurtec ODT) headache #10 tabs Allergies Allergy/AdvReac Type Severity Reaction Status Date / Time buspirone Allergy Verified 02/19/23 12:13 paliperidone Allergy Verified 02/19/23 12:13 paroxetine HCl [From Paxil] Allergy Verified 02/19/23 12:13 sertraline Allergy Verified 02/19/23 12:13 ziprasidone [From Geodon] Allergy Other (See Verified 02/19/23 12:13 Comment) aripiprazole [From Abilify] AdvReac Intermediate INVOLUNTARY Verified 02/19/23 12:13 MUSCLE MOVEMENTS divalproex sodium AdvReac Intermediate INVOLUNTARY Verified 02/19/23 12:13 [From Depakote] MUSCLE MOVEMENTS mirtazapine AdvReac Intermediate INVOLUNTARY Verified 02/19/23 12:13 MUSCLE MOVEMENTS risperidone AdvReac Intermediate INVOLUNTARY Verified 02/19/23 12:05 MUSCLE MOVEMENTS benztropine mesylate AdvReac elevated Verified 02/19/23 12:13 [From Cogentin] blood sugars enviornmental Allergy Mild Wheezing Uncoded 02/19/23 12:05 General Stated Complaint: Chest Pain CARLOS: 3 Review of Systems Narrative: Review of Systems Constitutional: negative Eyes: negative ENT: negative Cardiovascular: Chest pain Respiratory: negative Gastrointestinal: negative : negative Musculoskeletal: negative Skin: negative Neurologic: negative Psych: negative PFSH All Active Problems (Updated 02/19/23 @ 13:07 by Lb Cordero MD) Schizoaffective disorder (Acute 09/07/14) Rebekah Mariscal [facility] 09/2014- [facility] inpatient Hypothyroidism (acquired) (Acute 09/07/14) Hypercholesterolemia (Chronic 09/07/14) pt insists on lipitor 80 mg due to family hx GERD (gastroesophageal reflux disease) (Acute 09/07/14) Diabetes mellitus type 2 in obese (Acute 09/09/14) Depression (Acute 10/02/14) Left-sided chest wall pain (Acute) Hypertension (Chronic) pt requests brand name Tenormin vs atenolol 04/02/18 Chest pain (Acute) Chronic headache (Acute) Migraine headache without aura (Acute) Migraine (Chronic) Obesity (Chronic) BMI 52 Poor dentition (Acute) Tobacco use disorder (Chronic) started 2013 1.5 ppd, pipe 1-7/week, QUIT LATE OCT 2021 Allergic rhinitis (Chronic) lortadine Hiatal hernia (Chronic) protonix not effective, nexium works better 02/12/18 Anemia (Chronic) Broken teeth (Chronic) Drug-seeking behavior (Chronic ~09/20/21) Requests Ritalin from providers Medication overuse headache (Acute) Chest pain (Acute) Acute hyperglycemia (Acute) Medical History Anxiety Dental caries Hyperlipidemia Mitral valve prolapse Peripheral neuropathy Trigeminal neuralgia Surgical History No significant past surgical history Family History Father Heart disease [place] Social History Smoking/Tobacco Use Status: Current every day Tobacco Type: cigarettes, pipe Years: 8 Other: States equivalent to 1.5 packs cigarettes and cigars Smoking risk assessment performed?: Yes Alcohol Intake: never Drug use: Never Substance use type: does not use Adopted: No Caregiver/Support person: No Foster care: No Household members: none Housing: apartment Number of Children: 2 number of grandchildren: 1 Communication Needs: Corrective Lenses Education Level: college Do you need help understanding health information?: Always current occupation: Unemployed/Leave of absence Sexually active: No Do you think of yourself as: Decline to provide Current gender identity: male What type of physical activity do you participate in: other Details: weight lifting Frequency: 3-4 times per week Magalie/Sabianist: Rastafarian Seatbelt use: always Drive intox or ride w/intox 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 Exam Narrative Exam Narrative: Physical Examination General: alert, awake, cooperative, resting comfortably, no acute distress HEENT: normocephalic, atraumatic; PERRL, EOM intact, conjunctiva normal; no nasal discharge; moist mucous membranes, oral and pharyngeal mucosa normal, tolerating secretions Neck: supple, trachea midline; full ROM Chest: normal to inspection Respiratory: normal respiratory effort, speaking in full sentences, clear to auscultation, no wheezing, rales or rhonchi Cardiac: regular rate, regular rhythm, S1S2 intact, no murmurs rubs or gallops GI: abdomen soft, non-tender, non-distended; no palpable mass or hepatosplenomegaly Skin: no lesions, rashes or trauma appreciated Neuro: AAOx3, normal speech, moving all extremities Psych: Appropriate mood and affect Course Vital Signs Vital signs: Vital Signs Pulse 70 02/19/23 12:01 Respiratory Rate 17 02/19/23 12:01 Blood Pressure 131/87 02/19/23 12:01 Pulse Oximetry 96 02/19/23 12:01 Temperature Source Oral 02/19/23 12:01 Pulse 70 02/19/23 12:01 Respiratory Rate 17 02/19/23 12:03 Respiratory Effort Non-Labored, Short of Breath 02/19/23 12:03 Respiratory Depth Normal 02/19/23 12:03 Respiratory Pattern Normal 02/19/23 12:03 Blood Pressure 131/87 02/19/23 12:01 Blood Pressure Position Sitting 02/19/23 12:01 Pulse Oximetry 96 02/19/23 12:01 Oxygen Delivery Method Room Air 02/19/23 12:01 Oxygen Flow Rate 0 02/19/23 12:01 Pain Level 8 02/19/23 12:01
[2023-02-19] MEDS: Ketorolac 15 MG/ML VIAL IM (13:06)
[2023-02-19 13:14] VITALS: BP 104/69; PULSE 70; RESP 16; TEMP 36.2; O2SAT 95
== END 2023-02-19 13:16 | disposition home or self-care (01) ==
PROVIDERS: Emergency Provider Emergency Medicine; PCP Family Medicine
DX: R07.89 Other chest pain (principal); E11.42 Type 2 diabetes mellitus with diabetic polyneuropathy
CPT/HCPCS: 93005; 96372; 99283; 93010; J1885

== ENCOUNTER 2023-02-19 20:40 | Emergency (ER) | payer MEDICAID, SELFPAY ==
[2023-02-19 20:42] VITALS: BP 136/73; PULSE 72; RESP 21; TEMP 36.4; O2SAT 98
--- NOTE | 2023-02-19 20:45 | RT.EKG_ITS ---
APPROVED REPORT Exam: Resting ECG Reason for Exam: CP/SOB Patient Location: E HR:65 bpm ECG Measurements Heart Rate 65 AXIS AK 185 P 41 QRSd 110 QRS 25 QT 446 T 45 QTc 465 Conclusion Sinus rhythm...normal P axis, V-rate 60- 99
[2023-02-19 22:02] VITALS: BP 137/79; PULSE 64; RESP 17; TEMP 36.7; O2SAT 95
--- NOTE | 2023-02-19 22:08 | DI.RAD_ITS ---
Exam(s) XR CHEST 2V PA LATERAL EXAM: XR CHEST 2V PA LATERAL CLINICAL HISTORY: chest pain TECHNIQUE: 2D digital imaging was performed of the chest. Two images were obtained. PA and lateral views were obtained. COMPARISON: CR,XR XR CHEST 2V PA LATERAL from 02/11/2023 FINDINGS: MEDIASTINUM: Normal. HEART: Normal. PULMONARY VASCULATURE: Normal. LUNGS: Clear. PLEURAL SPACE: No pleural effusion or pneumothorax. BONE:Within normal limits for the patient's age. OTHER FINDINGS:Normal. IMPRESSION: No acute pulmonary findings. DATA REPOSITORY: RADIATION DOSE DELIVERED:
[2023-02-19 22:53] LABS: Abs Immature Grans 0.02 10^3/uL (0.0-0.06); Absolute Basophil Count 0.02 10^3/uL (0.0-0.2); Absolute Eosinophil Count 0.28 10^3/uL (0.0-0.7); Absolute Lymphocyte Count 1.86 10^3/uL (1.2-3.4); Absolute Monocyte Count 0.51 10^3/uL (0.1-0.8); Absolute Neutrophil Count 5.39 10^3/uL (1.2-6.7); Basophils % 0.2; Eosinophils % 3.5; HCT 33.6 % (40.0-50.0); HGB 11.5 g/dL (13.5-17.5); Immature Grans % 0.2; MCH 29.9 pg (27.0-33.0); MCHC 34.2 % (32.0-36.0); MCV 88 fL (80-95); MPV 8.5 fL (8.0-11.0); Monocytes % 6.3; Neutrophils % 66.8; Platelet Count 155 10^3/uL (130-400); RBC 3.84 10^6/uL (4.36-5.78); RDW 12.3 % (11.8-14.1); RDW-SD 39.3 fL; WBC 8.08 10^3/uL (4.4-10.8)
[2023-02-19 23:10] LABS: ALT 25 U/L (16-63); AST 15 U/L (15-37); Albumin 3.4 g/dL (3.4-5.0); Alkaline Phosphatase 78 U/L (46-116); Anion Gap 6.2 mmol/L (3-11); BUN 7 mg/dL (7-18); Bilirubin, Total 0.4 mg/dL (0.2-1.0); CO2 29.8 mmol/L (21.0-32.0); CREATININE 0.9 mg/dL (0.70-1.30); Calcium 8.8 mg/dL (8.5-10.1); Chloride 99 mmol/L (98-107); Estimated GFR 99.62 (mL/min/1.73m2); Glucose 142 mg/dL (74-106); Sodium 135 mmol/L (136-145); Total Protein 7.4 g/dL (6.4-8.2); Troponin I < 50 ng/L (<or=60)
--- NOTE | 2023-02-19 23:16 | ED.GENADUL_ITS ---
Discharge Plan Disposition Patient Disposition: Home Condition: Stable Discharge Details Clinical Impression: Left-sided chest wall pain, Tobacco use disorder Primary Care Provider: Brandon Foster ED Provider: [place] Viera Home Meds and New Rx's Prescriptions: Continued Nurtec ODT 75 mg tablet,disintegrating 75 mg PO ONCE PRN (Reason: migraine headache) Qty: 10 3RF Rx Instructions: As a single dose. No more than one dose in 24 hours. chlorhexidine gluconate [Peridex] 0.12 % mouthwash 15 ml mucous membrane BID Qty: 473 5RF Rx Instructions: rinse and spit twice a day Emgality Pen 120 mg/mL pen injector 120 mg subcut QMONTH Qty: 1 11RF sumatriptan succinate 100 mg tablet See Rx Instructions PO .COMPLEX Qty: 9 5RF Rx Instructions: take 1 tab at onset of headache; if no relief, may repeat 1 tab after at least 2 hrs; max = 2 tabs/24 hrs PO Claritin Liqui-Gel 10 MG capsule 1 cap PO DAILY Qty: 90 prochlorperazine maleate 10 mg tablet See Rx Instructions .ROUTE .COMPLEX Qty: 20 2RF Dose Instruction: TAKE 1 TABLET BY MOUTH EVERY 8 HOURS NEEDED FOR NAUSEA AND VOMITING, HEAD ACHE Rx Instructions: TAKE 1 TABLET BY MOUTH EVERY 8 HOURS NEEDED FOR NAUSEA AND VOMITING, HEADACHE multivitamin Tablet 1 tab PO DAILY vitamin A 10,000 unit Capsule 10,000 unit PO DAILY metformin 500 mg tablet 1 tab PO BID omeprazole 20 mg capsule,delayed release(DR/EC) 40 mg PO DAILY Nurtec ODT 75 mg tablet,disintegrating 75 mg PO PRN PRN Patient Comments: Take 1 tablet by mouth once a day as needed for migraine benztropine 0.5 MG tablet 0.5 mg PO BID aspirin,buffd-calcium carb-mag 325 MG tablet 325 mg PO DAILY Risperdal Consta 25 mg/2 mL suspension,extended rel recon 25 mg IM USEASDIRECTD Patient Comments: INJECT ONE SYRINGE INTRAMUSCULARLY ONCE EVERY TWO WEEKS Rx Instructions: every 2 weeks lactulose 10 gram/15 mL solution 20 g PO DIRECTED PRN Patient Comments: TAKE ONE TO TWO TABLESPOONS BY MOUTH NEEDED WHEN 3 DAYS PASS WITHOUT BOWEL MOVEMENT lorazepam 1 mg tablet 1 mg PO QID Patient Comments: TK 1 T PO QAM THEN 2 TS HS Rx Instructions: 01/03/21 1 mg in am and 2 mg at hs Reports 1 mg in am, 1 mg in afternoon, 2 mg at hs albuterol sulfate 90 mcg/actuation aerosol powdr breath activated 2 inh IH Q6H PRN (Reason: shortness of breath or wheezing) Qty: 1 0RF Nu-Mag 71.5 mg tablet,delayed release (DR/EC) 71.5 mg PO DAILY Qty: 20 0RF atenolol 50 mg tablet 75 mg PO DAILY Rx Instructions: To take with 25mg dose for TDD 75mg daily simvastatin 40 mg tablet 40 mg PO DAILY Discharge Instructions Additional Instructions: Your blood tests, EKG and imaging today are reassuring and show no evidence of acute concerning or significant findings. Drink plenty of fluids and get plenty of rest. Alternate tylenol and motrin as needed and directed for pain. Follow-up with your primary care doctor in 1 week. Call the radiology department tomorrow to schedule your recently ordered stress test for further evaluation of your chest pain. Return to the emergency department with any worsening or new concerning symptoms. Referrals: Brandon Foster [Primary Care Provider] - Discharge Data Discharge Date/Time-TO BE ENTERED AT DEPARTURE: 02/20/23 03:01 Discharge Physician: [place] Viera Medical Decision Making 57-year-old gentleman known to this facility presenting with chest discomfort EKG does not show significant acute abnormality Chest x-ray does not show evidence of obvious pneumothorax or any acute pathology Diagnostic labs are reassuring, secondary to age and comorbidities, will order repeat troponin transition care to Dr. [place] Viera pending repeat troponin likely discharge home if tests are within normal limits and patient is largely asymptomatic HPI General Date/Time Provider Initiated Documentation: 02/19/23 21:56 . HPI Narrative: This 57-year-old gentleman with history of schizoaffective disorder, hypothyroidism, hypercholesterolemia, GERD, diabetes, depression,, hypertension, chest pain, tobacco abuse presents with report of recurrent chest pain. Patient typically presents to this facility frequently for evaluation of chest pain, he states that his pain is similar to his prior presentations. He denies any significant change in his discomfort. He was at rest when the pain began. He denies any calf pain or swelling, recent flights, surgeries, long drives, history of coagulopathy. He does smoke tobacco. He takes all of his medications as prescribed per patient. He denies known exacerbating or nanette viating factors. When asked regarding whether or not his symptoms are exertional, he declines any sort of exertion in his home. Related Data Home Medications Medication Instructions Recorded Confirmed loratadine 10 mg capsule (Claritin 1 cap PO DAILY #90 tabs 12/16/14 02/19/23 Liqui-Gel) aspirin,buffered (calcium 325 mg PO DAILY 11/18/16 02/19/23 carbonate-magnesium) 325 mg tablet benztropine 0.5 mg tablet 0.5 mg PO BID 11/18/16 02/19/23 lactulose 10 gram/15 mL oral 20 g PO DIRECTED PRN 10/03/20 02/19/23 solution risperidone microspheres 25 mg/2 25 mg IM USEASDIRECTD 10/03/20 02/19/23 mL intramuscular susp,ext release (Risperdal Consta) albuterol sulfate 90 mcg/actuation 2 inh inhalation Q6H PRN shortness 12/15/20 02/19/23 breath activated powder inhaler of breath or wheezing #1 ea multivitamin 1 tab PO DAILY 01/26/21 02/19/23 vitamin A 3,000 mcg (10,000 unit) 10,000 unit PO DAILY 01/26/21 02/19/23 capsule lorazepam 1 mg tablet 1 mg PO QID 07/05/21 02/19/23 chlorhexidine gluconate 0.12 % 15 ml mucous membrane BID dental 09/06/21 02/19/23 mouthwash (Peridex) problem #473 mL metformin 500 mg tablet 1 tab PO BID 03/18/22 02/19/23 omeprazole 20 mg capsule,delayed 40 mg PO DAILY 03/18/22 02/19/23 release galcanezumab-gnlm 120 mg/mL 120 mg subcut QMONTH #1 mL 04/05/22 02/19/23 subcutaneous pen injector (Emgality Pen) sumatriptan succinate 100 mg tablet See Rx Instructions PO .COMPLEX #9 06/28/22 02/19/23 tabs magnesium chloride 71.5 mg 71.5 mg PO DAILY #20 tabs 09/05/22 02/19/23 (magnesium chloride) tablet,delayed release (Nu-Mag) atenolol 50 mg tablet 75 mg PO DAILY 09/26/22 02/19/23 simvastatin 40 mg tablet 40 mg PO DAILY 12/25/22 02/19/23 prochlorperazine maleate 10 mg See Rx Instructions .Route 01/08/23 02/19/23 tablet .COMPLEX #20 tabs rimegepant 75 mg disintegrating 75 mg PO ONCE PRN migraine 01/17/23 02/19/23 tablet (Nurtec ODT) headache #10 tabs rimegepant 75 mg disintegrating 75 mg PO PRN PRN 02/06/23 02/19/23 tablet (Nurtec ODT) Previous Rx's Medication Instructions Recorded albuterol sulfate 90 mcg/actuation 2 inh inhalation Q6H PRN shortness 12/15/20 breath activated powder inhaler of breath or wheezing #1 ea chlorhexidine gluconate 0.12 % 15 ml mucous membrane BID dental 09/06/21 mouthwash (Peridex) problem #473 mL galcanezumab-gnlm 120 mg/mL 120 mg subcut QMONTH #1 mL 04/05/22 subcutaneous pen injector (Emgality Pen) sumatriptan succinate 100 mg tablet See Rx Instructions PO .COMPLEX #9 06/28/22 tabs magnesium chloride 71.5 mg 71.5 mg PO DAILY #20 tabs 09/05/22 (magnesium chloride) tablet,delayed release (Nu-Mag) prochlorperazine maleate 10 mg See Rx Instructions .Route 01/08/23 tablet .COMPLEX #20 tabs rimegepant 75 mg disintegrating 75 mg PO ONCE PRN migraine 01/17/23 tablet (Nurtec ODT) headache #10 tabs Allergies Allergy/AdvReac Type Severity Reaction Status Date / Time buspirone Allergy Verified 02/19/23 23:04 paliperidone Allergy Verified 02/19/23 23:04 paroxetine HCl [From Paxil] Allergy Verified 02/19/23 23:04 sertraline Allergy Verified 02/19/23 23:04 ziprasidone [From Geodon] Allergy Other (See Verified 02/19/23 23:04 Comment) aripiprazole [From Abilify] AdvReac Intermediate INVOLUNTARY Verified 02/19/23 23:04 MUSCLE MOVEMENTS divalproex sodium AdvReac Intermediate INVOLUNTARY Verified 02/19/23 12:13 [From Depakote] MUSCLE MOVEMENTS mirtazapine AdvReac Intermediate INVOLUNTARY Verified 02/19/23 23:04 MUSCLE MOVEMENTS risperidone AdvReac Intermediate INVOLUNTARY Verified 02/19/23 12:05 MUSCLE MOVEMENTS benztropine mesylate AdvReac elevated Verified 02/19/23 12:13 [From Cogentin] blood sugars enviornmental Allergy Mild Wheezing Uncoded 02/19/23 23:04 General Stated Complaint: Chest Pain CARLOS: 3 PFSH All Active Problems (Updated 02/19/23 @ 23:25 by JORDANA Salazar) Schizoaffective disorder (Acute 09/07/14) Rebekah Mariscal [facility] 09/2014- [facility] inpatient Hypothyroidism (acquired) (Acute 09/07/14) Hypercholesterolemia (Chronic 09/07/14) pt insists on lipitor 80 mg due to family hx GERD (gastroesophageal reflux disease) (Acute 09/07/14) Diabetes mellitus type 2 in obese (Acute 09/09/14) Depression (Acute 10/02/14) Left-sided chest wall pain (Acute) Hypertension (Chronic) pt requests brand name Tenormin vs atenolol 04/02/18 Chest pain (Acute) Chronic headache (Acute) Migraine headache without aura (Acute) Migraine (Chronic) Obesity (Chronic) BMI 52 Poor dentition (Acute) Tobacco use disorder (Chronic) started 2013 1.5 ppd, pipe 1-7/week, QUIT LATE OCT 2021 Allergic rhinitis (Chronic) lortadine Hiatal hernia (Chronic) protonix not effective, nexium works better 02/12/18 Anemia (Chronic) Broken teeth (Chronic) Drug-seeking behavior (Chronic ~09/20/21) Requests Ritalin from providers Medication overuse headache (Acute) Chest pain (Acute) Acute hyperglycemia (Acute) Medical History Anxiety Dental caries Hyperlipidemia Mitral valve prolapse Peripheral neuropathy Trigeminal neuralgia Surgical History No significant past surgical history Family History Father Heart disease [place] Social History Smoking/Tobacco Use Status: Current every day Tobacco Type: cigarettes, pipe Years: 8 Other: States equivalent to 1.5 packs cigarettes and cigars Smoking risk assessment performed?: Yes Alcohol Intake: never Drug use: Never Substance use type: does not use Adopted: No Caregiver/Support person: No Foster care: No Household members: none Housing: apartment Number of Children: 2 number of grandchildren: 1 Communication Needs: Corrective Lenses Education Level: college Do you need help understanding health information?: Always current occupation: Unemployed/Leave of absence Sexually active: No Do you think of yourself as: Decline to provide Current gender identity: male What type of physical activity do you participate in: other Details: weight lifting Frequency: 3-4 times per week Magalie/Lutheran: Caodaism Seatbelt use: always Drive 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 or ride w/intox 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 Working smoke detector in home: Yes Fire extinguisher in home: Yes Carbon monox detector in home: Yes Do you feel safe at home: Yes (anxiety and depression) Do you feel safe in your relationship?: Yes Exam Narrative Exam Narrative: Patient is disheveled, alert, oriented, pupils equal round reactive to light and accommodation, lungs clear to auscultation, rate rhythm regular, reproducible chest wall tenderness, no abdominal bruit or pulsatile mass, no abdominal tenderness, no pallor, fully alert and oriented x4, distal pulses intact, no calf swelling or tenderness Course Vital Signs Vital signs: Vital Signs Temperature 36.4 C L 02/19/23 20:42 Pulse 72 02/19/23 20:42 Respiratory Rate 21 02/19/23 20:42 Blood Pressure 136/73 02/19/23 20:42 Pulse Oximetry 98 02/19/23 20:42 Temperature 36.7 C 02/19/23 22:02 Temperature Source Temporal Artery Scan 02/19/23 22:02 Pulse 64 02/19/23 22:02 Respiratory Rate 17 02/19/23 22:02 Respiratory Effort Normal, Non-Labored 02/19/23 22:51 Respiratory Depth Normal 02/19/23 22:51 Respiratory Pattern Normal 02/19/23 22:51 Blood Pressure 137/79 02/19/23 22:02 Blood Pressure Position Sitting 02/19/23 20:42 Pulse Oximetry 95 02/19/23 22:02 Oxygen Delivery Method Room Air 02/19/23 22:02 Oxygen Flow Rate 0 02/19/23 22:02 Pain Level 7 02/19/23 22:51 Lab/Test Results Lab/Test Results: Laboratory Tests Range/Units 02/19/23 02/19/23 22:46 22:46 WBC (4.4-10.8) 10^3/uL 8.08 RBC (4.36-5.78) 10^6/uL 3.84 L Hgb (13.5-17.5) g/dL 11.5 L Hct (40.0-50.0) % 33.6 L MCV (80-95) fL 88 MCH (27.0-33.0) pg 29.9 MCHC (32.0-36.0) % 34.2 RDW (11.8-14.1) % 12.3 Plt Count (130-400) 10^3/uL 155 MPV (8.0-11.0) fL 8.5 Immature Gran % 0.2 Neutrophils % 66.8 Lymphocytes % 23.0 Monocytes % 6.3 Eosinophils % 3.5 Basophils % 0.2 Nucleated RBC % (0.0-0.3) % 0.0 Absolute Neutrophils (1.2-6.7) 10^3/uL 5.39 Absolute Lymphocytes (1.2-3.4) 10^3/uL 1.86 Absolute Monocytes (0.1-0.8) 10^3/uL 0.51 Absolute Eosinophils (0.0-0.7) 10^3/uL 0.28 Absolute Basophils (0.0-0.2) 10^3/uL 0.02 Sodium (136-145) mmol/L 135 L Potassium (3.5-5.1) mmol/L 4.0 Chloride (98-107) mmol/L 99 Carbon Dioxide (21.0-32.0) mmol/L 29.8 Anion Gap (3-11) mmol/L 6.2 BUN (7-18) mg/dL 7 Creatinine (0.70-1.30) mg/dL 0.9 Est GFR (CKD-EPI 2020) (mL/min/1.73m2) 99.62 Glucose (74-106) mg/dL 142 H Calcium (8.5-10.1) mg/dL 8.8 Total Bilirubin (0.2-1.0) mg/dL 0.4 AST (15-37) U/L 15 ALT (16-63) U/L 25 Alkaline Phosphatase (46-116) U/L 78 Troponin I (<or=60) ng/L < 50 Total Protein (6.4-8.2) g/dL 7.4 Albumin (3.4-5.0) g/dL 3.4 Sign Out Sign Out Data: Sign Out Comment: pending repeat troponin and dispo Last updated by Lucille Farley PA at 02/19/23 23:27
--- NOTE | 2023-02-19 23:49 | DI.VRAD_ITS ---
PROCEDURE INFORMATION: Exam: XR Chest Exam date and time: 02/19/2023 11:13 PM Age: 57 years old Clinical indication: Other: Chest pain TECHNIQUE: Imaging protocol: Radiologic exam of the chest. Views: 2 views. COMPARISON: CR XR CHEST 2V PA LATERAL 02/11/2023 2:55 PM FINDINGS: Lungs: Mild peribronchial thickening. No consolidation. Pleural spaces: Unremarkable. No pleural effusion. No pneumothorax. Heart/Mediastinum: Unremarkable. No cardiomegaly. Bones/joints: Unremarkable. IMPRESSION: Question mild bronchitis No focal consolidation Dictated and Authenticated by: Henri Heck MD. Ordering:TAWNYA Adkins MD
--- NOTE | 2023-02-20 00:08 | W.EDPROG ---
Date of service: 02/19/23 Time of Service: 23:30 Medical Decision Making 2330 --please see JORDANA Farley note for initial presentation, exam and plan. Case endorsed to follow-up on repeat troponin and if negative, will discharge to home. Patient is well-known to the emergency department with multiple frequent visits for chest pain. He was seen here earlier today for the same complaint and discharged. He thus far this evening has had a negative work-up. 0230 --repeat troponin negative. Remainder of labs reviewed and unremarkable. Chest x-ray negative for acute disease. Patient reassessed and he is symptom-free and feels comfortable going home. Patient had a stress test ordered earlier this month that he states he has not yet scheduled. He is advised to schedule this as soon as possible for further evaluation of his chronic intermittent chest pain. Advised to follow up with the primary care doctor for re-evaluation. Usual and customary return precautions given prior to discharge. Medical Records Medical records reviewed: Yes I reviewed the patient's medical records. Imaging Data Radiologic Study: Radiologist's impression: XR Chest Exam date and time: 02/19/2023 11:13 PM Age: 57 years old Clinical indication: Other: Chest pain TECHNIQUE: Imaging protocol: Radiologic exam of the chest. Views: 2 views. COMPARISON: CR XR CHEST 2V PA LATERAL 02/11/2023 2:55 PM FINDINGS: Lungs:? Mild peribronchial thickening. No consolidation. Pleural spaces: Unremarkable. No pleural effusion. No pneumothorax. Heart/Mediastinum: Unremarkable. No cardiomegaly. Bones/joints: Unremarkable. IMPRESSION: Question mild bronchitis No focal consolidation Lab Data Lab results reviewed: Yes I reviewed the patient's lab results. Labs: Laboratory Tests Range/Units 02/19/23 02/19/23 02/19/23 22:46 22:46 22:46 WBC (4.4-10.8) 10^3/uL 8.08 RBC (4.36-5.78) 10^6/uL 3.84 L Hgb (13.5-17.5) g/dL 11.5 L Hct (40.0-50.0) % 33.6 L MCV (80-95) fL 88 MCH (27.0-33.0) pg 29.9 MCHC (32.0-36.0) % 34.2 RDW (11.8-14.1) % 12.3 Plt Count (130-400) 10^3/uL 155 MPV (8.0-11.0) fL 8.5 Immature Gran % 0.2 Neutrophils % 66.8 Lymphocytes % 23.0 Monocytes % 6.3 Eosinophils % 3.5 Basophils % 0.2 Nucleated RBC % (0.0-0.3) % 0.0 Absolute Neutrophils (1.2-6.7) 10^3/uL 5.39 Absolute Lymphocytes (1.2-3.4) 10^3/uL 1.86 Absolute Monocytes (0.1-0.8) 10^3/uL 0.51 Absolute Eosinophils (0.0-0.7) 10^3/uL 0.28 Absolute Basophils (0.0-0.2) 10^3/uL 0.02 Sodium (136-145) mmol/L 135 L Potassium (3.5-5.1) mmol/L 4.0 Chloride (98-107) mmol/L 99 Carbon Dioxide (21.0-32.0) mmol/L 29.8 Anion Gap (3-11) mmol/L 6.2 BUN (7-18) mg/dL 7 Creatinine (0.70-1.30) mg/dL 0.9 Est GFR (CKD-EPI 2020) (mL/min/1.73m2) 99.62 Glucose (74-106) mg/dL 142 H Calcium (8.5-10.1) mg/dL 8.8 Total Bilirubin (0.2-1.0) mg/dL 0.4 0.4 Conjugated Bilirubin (0.0-0.2) mg/dL 0.1 AST (15-37) U/L 15 14 L ALT (16-63) U/L 25 26 Alkaline Phosphatase (46-116) U/L 78 79 Troponin I (<or=60) ng/L < 50 Total Protein (6.4-8.2) g/dL 7.4 7.4 Albumin (3.4-5.0) g/dL 3.4 3.4 Lipase (16-77) U/L 11 L Range/Units 02/20/23 00:49 WBC (4.4-10.8) 10^3/uL RBC (4.36-5.78) 10^6/uL Hgb (13.5-17.5) g/dL Hct (40.0-50.0) % MCV (80-95) fL MCH (27.0-33.0) pg MCHC (32.0-36.0) % RDW (11.8-14.1) % Plt Count (130-400) 10^3/uL MPV (8.0-11.0) fL Immature Gran % Neutrophils % Lymphocytes % Monocytes % Eosinophils % Basophils % Nucleated RBC % (0.0-0.3) % Absolute Neutrophils (1.2-6.7) 10^3/uL Absolute Lymphocytes (1.2-3.4) 10^3/uL Absolute Monocytes (0.1-0.8) 10^3/uL Absolute Eosinophils (0.0-0.7) 10^3/uL Absolute Basophils (0.0-0.2) 10^3/uL Sodium (136-145) mmol/L Potassium (3.5-5.1) mmol/L Chloride (98-107) mmol/L Carbon Dioxide (21.0-32.0) mmol/L Anion Gap (3-11) mmol/L BUN (7-18) mg/dL Creatinine (0.70-1.30) mg/dL Est GFR (CKD-EPI 2020) (mL/min/1.73m2) Glucose (74-106) mg/dL Calcium (8.5-10.1) mg/dL Total Bilirubin (0.2-1.0) mg/dL Conjugated Bilirubin (0.0-0.2) mg/dL AST (15-37) U/L ALT (16-63) U/L Alkaline Phosphatase (46-116) U/L Troponin I (<or=60) ng/L < 50 Total Protein (6.4-8.2) g/dL Albumin (3.4-5.0) g/dL Lipase (16-77) U/L ECG Data Attestation: I personally reviewed and interpreted this ECG (s) as follows: Interpretation: Rate of 65, sinus, normal axis, artifact in V6, no STEMI. Sign Out Sign Out Data: Sign Out Comment: pending repeat troponin and dispo Last updated by Lucille Farley PA at 02/19/23 23:27 Discharge Plan Disposition Patient Disposition: Home Condition: Stable Discharge Details Clinical Impression: Left-sided chest wall pain, Tobacco use disorder Primary Care Provider: Brandon Foster ED Provider: [place] V[place] Home Meds and New Rx's Prescriptions: Continued Nurtec ODT 75 mg tablet,disintegrating 75 mg PO ONCE PRN (Reason: migraine headache) Qty: 10 3RF Rx Instructions: As a single dose. No more than one dose in 24 hours. chlorhexidine gluconate [Peridex] 0.12 % mouthwash 15 ml mucous membrane BID Qty: 473 5RF Rx Instructions: rinse and spit twice a day Emgality Pen 120 mg/mL pen injector 120 mg subcut QMONTH Qty: 1 11RF sumatriptan succinate 100 mg tablet See Rx Instructions PO .COMPLEX Qty: 9 5RF Rx Instructions: take 1 tab at onset of headache; if no relief, may repeat 1 tab after at least 2 hrs; max = 2 tabs/24 hrs PO Claritin Liqui-Gel 10 MG capsule 1 cap PO DAILY Qty: 90 prochlorperazine maleate 10 mg tablet See Rx Instructions .ROUTE .COMPLEX Qty: 20 2RF Dose Instruction: TAKE 1 TABLET BY MOUTH EVERY 8 HOURS NEEDED FOR NAUSEA AND VOMITING, HEADACHE Rx Instructions: TAKE 1 TABLET BY MOUTH EVERY 8 HOURS NEEDED FOR NAUSEA AND VOMITING, HEADACHE multivitamin Tablet 1 tab PO DAILY vitamin A 10,000 unit Capsule 10,000 unit PO DAILY metformin 500 mg tablet 1 tab PO BID omeprazole 20 mg capsule,delayed release(DR/EC) 40 mg PO DAILY Nurtec ODT 75 mg tablet,disintegrating 75 mg PO PRN PRN Patient Comments: Take 1 tablet by mouth once a day as needed for migraine benztropine 0.5 MG tablet 0.5 mg PO BID aspirin,buffd-calcium carb-mag 325 MG tablet 325 mg PO DAILY Risperdal Consta 25 mg/2 mL suspension,extended rel recon 25 mg IM USEASDIRECTD Patient Comments: INJECT ONE SYRINGE INTRAMUSCULARLY ONCE EVERY TWO WEEKS Rx Instructions: every 2 weeks lactulose 10 gram/15 mL solution 20 g PO DIRECTED PRN Patient Comments: TAKE ONE TO TWO TABLESPOONS BY MOUTH NEEDED WHEN 3 DAYS PASS WITHOUT BOWEL MOVEMENT lorazepam 1 mg tablet 1 mg PO QID Patient Comments: TK 1 T PO QAM THEN 2 TS HS Rx Instructions: 01/03/21 1 mg in am and 2 mg at hs Reports 1 mg in am, 1 mg in afternoon, 2 mg at hs albuterol sulfate 90 mcg/actuation aerosol powdr breath activated 2 inh IH Q6H PRN (Reason: shortness of breath or wheezing) Qty: 1 0RF Nu-Mag 71.5 mg tablet,delayed release (DR/EC) 71.5 mg PO DAILY Qty: 20 0RF atenolol 50 mg tablet 75 mg PO DAILY Rx Instructions: To take with 25mg dose for TDD 75mg daily simvastatin 40 mg tablet 40 mg PO DAILY Discharge Instructions Additional Instructions: Your blood tests, EKG and imaging today are reassuring and show no evidence of acute concerning or significant findings. Drink plenty of fluids and get plenty of rest. Alternate tylenol and motrin as needed and directed for pain. Follow-up with your primary care doctor in 1 week. Call the radiology department tomorrow to schedule your recently ordered stress test for further evaluation of your chest pain. Return to the emergency department with any worsening or new concerning symptoms. Referrals: Brandon Foster [Primary Care Provider] - Discharge Data Discharge Physician: [place] Viera
[2023-02-20 01:14] LABS: Troponin I < 50 ng/L (<or=60)
[2023-02-20 01:21] LABS: ALT 26 U/L (16-63); AST 14 U/L (15-37); Albumin 3.4 g/dL (3.4-5.0); Alkaline Phosphatase 79 U/L (46-116); Bilirubin, Direct 0.1 mg/dL (0.0-0.2); Bilirubin, Total 0.4 mg/dL (0.2-1.0); Lipase 11 U/L (16-77); Total Protein 7.4 g/dL (6.4-8.2)
[2023-02-20 03:04] VITALS: BP 138/76; PULSE 56; RESP 18; TEMP 36.8; O2SAT 94
--- NOTE | 2023-02-20 10:30 | NUR.NOTE ---
Nursing Note: Accessed patient chart to determine how many EKG orders were in the chart from the ED. There was an outstanding EKG in ordered status. There are no EKG's in the [employer] system that are outstanding. EKG order was deleted.
--- NOTE | 2023-02-23 01:32 | W.ED.FU ---
Date of service: 02/22/23 Time of Service: 10:00 Follow Up Plan: I was contacted by EMS for med control. Been from EMS states that the patient has called for chest pain evaluation. Twelve-lead was being performed by EMS. Patient was requesting assessment. From EMSs call it was unclear if the patient was requesting assessment in the ED or not. Patient was requesting outpatient cardiology consult per EMS. I very clearly and specifically informed EMS that as is always the case we would be happy to see the patient in the ED if the patient felt that assessment was necessary. Additionally we could place a referral if the patient wanted for outpatient cardiology whether or not the patient actually physically came to the ED and we would be happy to do this if the patient wants us to proceed. Additionally I did inform [facility] that patient has had multiple recent thorough work-ups, and I would be happy to perform this again, but we are limited in the additional diagnostic tools that we have aside for the work-up that has been performed already in the past. We would be happy to repeat this if indicated. I asked EMS to convey these components to the patient. We were not called back for additional medical control.
== END 2023-02-20 03:01 | disposition home or self-care (01) ==
PROVIDERS: Physician Assistant; Emergency Provider Physician Assistant; PCP Family Medicine
DX: R07.89 Other chest pain (principal); I10 Essential (primary) hypertension; E11.42 Type 2 diabetes mellitus with diabetic polyneuropathy; E03.9 Hypothyroidism, unspecified; F17.210 Nicotine dependence, cigarettes, uncomplicated; F17.290 Nicotine dependence, other tobacco product, uncomplicated; Z79.82 Long term (current) use of aspirin; Z79.84 Long term (current) use of oral hypoglycemic drugs
CPT/HCPCS: 80053; 80076; 83690; 93005; 99283; 71046; 84484; 85025; 93010

== ENCOUNTER 2023-02-23 07:49 | Emergency (ER) | payer MEDICAID, SELFPAY ==
--- NOTE | 2023-02-23 07:30 | RT.EKG_ITS ---
APPROVED REPORT Exam: Resting ECG Reason for Exam: Chest pain Patient Location: E HR:74 bpm ECG Measurements Heart Rate 74 AXIS NV 189 P 41 QRSd 90 QRS 21 QT 419 T 54 QTc 464 Conclusion Sinus rhythm...normal P axis, V-rate 60- 99 Physician: no stemi
[2023-02-23 07:52] VITALS: BP 144/43; PULSE 75; RESP 18; TEMP 36.7; O2SAT 96
[2023-02-23 07:56] VITALS: RESP 18
--- NOTE | 2023-02-23 08:39 | W.ED.GENAD ---
Discharge Plan Disposition Patient Disposition: Home Condition: Stable Discharge Details Clinical Impression: Chest pain Primary Care Provider: Brandon Foster ED Provider: Liang Ng Home Meds and New Rx's Prescriptions: Continued chlorhexidine gluconate [Peridex] 0.12 % mouthwash 15 ml mucous membrane BID Qty: 473 5RF Rx Instructions: rinse and spit twice a day Claritin Liqui-Gel 10 MG capsule 1 cap PO DAILY Qty: 90 prochlorperazine maleate 10 mg tablet See Rx Instructions .ROUTE .COMPLEX Qty: 20 2RF Dose Instruction: TAKE 1 TABLET BY MOUTH EVERY 8 HOURS NEEDED FOR NAUSEA AND VOMITING, HEADACHE Rx Instructions: TAKE 1 TABLET BY MOUTH EVERY 8 HOURS NEEDED FOR NAUSEA AND VOMITING, HEADACHE multivitamin Tablet 1 tab PO DAILY vitamin A 10,000 unit Capsule 10,000 unit PO DAILY metformin 500 mg tablet 1 tab PO BID omeprazole 20 mg capsule,delayed release(DR/EC) 40 mg PO DAILY benztropine 0.5 MG tablet 0.5 mg PO BID aspirin,buffd-calcium carb-mag 325 MG tablet 325 mg PO DAILY Risperdal Consta 25 mg/2 mL suspension,extended rel recon 25 mg IM USEASDIRECTD Patient Comments: INJECT ONE SYRINGE INTRAMUSCULARLY ONCE EVERY TWO WEEKS Rx Instructions: every 2 weeks lactulose 10 gram/15 mL solution 20 g PO DIRECTED PRN Patient Comments: TAKE ONE TO TWO TABLESPOONS BY MOUTH NEEDED WHEN 3 DAYS PASS WITHOUT BOWEL MOVEMENT albuterol sulfate 90 mcg/actuation aerosol powdr breath activated 2 inh IH Q6H PRN (Reason: shortness of breath or wheezing) Qty: 1 0RF Nu-Mag 71.5 mg tablet,delayed release (DR/EC) 71.5 mg PO DAILY Qty: 20 0RF atenolol 50 mg tablet 75 mg PO DAILY Rx Instructions: To take with 25mg dose for TDD 75mg daily simvastatin 40 mg tablet 40 mg PO DAILY No Action Emgality Pen 120 mg/mL pen injector 120 mg subcut QMONTH Qty: 1 11RF Nurtec ODT 75 mg tablet,disintegrating 75 mg PO ONCE PRN (Reason: migraine headache) Qty: 10 3RF Rx Instructions: As a single dose. No more than one dose in 24 hours. sumatriptan succinate 100 mg tablet See Rx Instructions PO .COMPLEX Qty: 9 5RF Rx Instructions: take 1 tab at onset of headache; if no relief, may repeat 1 tab after at least 2 hrs; max = 2 tabs/24 hrs PO clonazepam 0.5 mg tablet See Rx Instructions .ROUTE .COMPLEX Rx Instructions: 1 tab in AM, 1 tab at Noon and 2 tab QHS fluoxetine 40 mg capsule 80 mg PO DAILY Discharge Instructions Instructions: Chest Pain (ED) Additional Instructions: Please follow-up with your primary care physician. You should have a stress test as soon as possible. Please call today to arrange this. Please be sure to take an aspirin 81 mg daily. Return to the ER immediately for any worsening or new concerning symptoms. Referrals: Brandon Foster [Primary Care Provider] - Discharge Data Discharge Date/Time-TO BE ENTERED AT DEPARTURE: 02/23/23 11:03 Medical Decision Making 845 --57-year-old male with multiple medical problems including diabetes, hyperlipidemia, smoker, positive family history of CAD, questionable history of hypertension, here with chest discomfort. Patient has had frequent ED visits with negative diagnostic work-ups over the past 2 to 3 months. Consider ACS. EKG reviewed and interpreted by me: Please see report. I note a subtle ST depression lead I. This was present in the past. Plan to check troponin. -- I reviewed the labs: Troponin negative. Patient reassessed and remained stable. I will request that care management assist in arranging outpatient followup. I called and spoke with the patients' covering PCP and requested timely followup be arranged and recommended followup outpatient stress test. Usual customary discharge instructions were reviewed with the patient. Medical Records Medical records reviewed: Yes I reviewed the patient's medical records. Medical records narrative: CT chest interpreted by radiology 01/06/2023: 1. No evidence of acute pulmonary emboli.? No evidence of pulmonary infarction.No pleural effusions.? No infiltrates.? No intrathoracic adenopathy. HPI General Mode of arrival: EMS. Date/Time Provider Initiated Documentation: 02/23/23 08:10. Limitations to Documentation: no limitations. Information obtained by: patient. HPI Narrative: 57-year-old man with multiple medical problems including history of mitral valve prolapse, hyperlipidemia, anxiety, depression, diabetes, GERD, hypertension, hypercholesterolemia -similar his diagnoses are in question as patient denies hypertension and diabetes. He is on atenolol as well as metformin. Patient is presenting today with chief complaint of chest discomfort. Patient notes left-sided chest discomfort that started at 545 this morning and has been persistent. Patient notes some associated shortness of breath. He denies leg pain or swelling. No abdominal pain. No nausea, vomiting or diaphoresis. Patient has had multiple ED presentations over the past 2 months with same complaint as today and has had negative diagnostic work-up. Related Data Home Medications Medication Instructions Recorded Confirmed loratadine 10 mg capsule (Claritin 1 cap PO DAILY #90 tabs 12/16/14 03/10/23 Liqui-Gel) aspirin,buffered (calcium 325 mg PO DAILY 11/18/16 03/10/23 carbonate-magnesium) 325 mg tablet benztropine 0.5 mg tablet 0.5 mg PO BID 11/18/16 03/10/23 lactulose 10 gram/15 mL oral 20 g PO DIRECTED PRN 10/03/20 03/10/23 solution risperidone microspheres 25 mg/2 25 mg IM USEASDIRECTD 10/03/20 03/10/23 mL intramuscular susp,ext release (Risperdal Consta) albuterol sulfate 90 mcg/actuation 2 inh inhalation Q6H PRN shortness 12/15/20 03/10/23 breath activated powder inhaler of breath or wheezing #1 ea multivitamin 1 tab PO DAILY 01/26/21 03/10/23 vitamin A 3,000 mcg (10,000 unit) 10,000 unit PO DAILY 01/26/21 03/10/23 capsule chlorhexidine gluconate 0.12 % 15 ml mucous membrane BID dental 09/06/21 03/10/23 mouthwash (Peridex) problem #473 mL metformin 500 mg tablet 1 tab PO BID 03/18/22 03/10/23 omeprazole 20 mg capsule,delayed 40 mg PO DAILY 03/18/22 03/10/23 release magnesium chloride 71.5 mg 71.5 mg PO DAILY #20 tabs 09/05/22 03/10/23 (magnesium chloride) tablet,delayed release (Nu-Mag) atenolol 50 mg tablet 75 mg PO DAILY 09/26/22 03/10/23 simvastatin 40 mg tablet 40 mg PO DAILY 12/25/22 03/10/23 prochlorperazine maleate 10 mg See Rx Instructions .Route 01/08/23 03/10/23 tablet .COMPLEX #20 tabs clonazepam 0.5 mg tablet See Rx Instructions .Route .COMPLEX 03/04/23 03/10/23 fluoxetine 40 mg capsule 80 mg PO DAILY 03/08/23 03/10/23 galcanezumab-gnlm 120 mg/mL 120 mg subcut QMONTH #1 mL 03/08/23 03/10/23 subcutaneous pen injector (Emgality Pen) rimegepant 75 mg disintegrating 75 mg PO ONCE PRN migraine 03/08/23 03/10/23 tablet (Nurtec ODT) headache #10 tabs sumatriptan succinate 100 mg tablet See Rx Instructions PO .COMPLEX #9 03/08/23 03/10/23 tabs Previous Rx's Medication Instructions Recorded albuterol sulfate 90 mcg/actuation 2 inh inhalation Q6H PRN shortness 12/15/20 breath activated powder inhaler of breath or wheezing #1 ea chlorhexidine gluconate 0.12 % 15 ml mucous membrane BID dental 09/06/21 mouthwash (Peridex) problem #473 mL magnesium chloride 71.5 mg 71.5 mg PO DAILY #20 tabs 09/05/22 (magnesium chloride) tablet,delayed release (Nu-Mag) prochlorperazine maleate 10 mg See Rx Instructions .Route 01/08/23 tablet .COMPLEX #20 tabs galcanezumab-gnlm 120 mg/mL 120 mg subcut QMONTH #1 mL 03/08/23 subcutaneous pen injector (Emgality Pen) rimegepant 75 mg disintegrating 75 mg PO ONCE PRN migraine 03/08/23 tablet (Nurtec ODT) headache #10 tabs sumatriptan succinate 100 mg tablet See Rx Instructions PO .COMPLEX #9 03/08/23 tabs Allergies Allergy/AdvReac Type Severity Reaction Status Date / Time buspirone Allergy Verified 03/10/23 09:03 paliperidone Allergy Verified 03/10/23 09:03 paroxetine HCl [From Paxil] Allergy Verified 03/10/23 09:03 sertraline Allergy Verified 03/10/23 09:03 ziprasidone [From Geodon] Allergy Other (See Verified 03/10/23 09:03 Comment) aripiprazole [From Abilify] AdvReac Intermediate INVOLUNTARY Verified 03/10/23 09:03 MUSCLE MOVEMENTS divalproex sodium AdvReac Intermediate INVOLUNTARY Verified 03/10/23 09:03 [From Depakote] MUSCLE MOVEMENTS mirtazapine AdvReac Intermediate INVOLUNTARY Verified 03/10/23 09:03 MUSCLE MOVEMENTS risperidone AdvReac Intermediate INVOLUNTARY Verified 03/10/23 09:03 MUSCLE MOVEMENTS benztropine mesylate AdvReac elevated Verified 03/10/23 09:03 [From Cogentin] blood sugars enviornmental Allergy Mild Wheezing Uncoded 03/10/23 09:03 General Stated Complaint: Chest Pain CARLOS: 3 Review of Systems All systems reviewed & are unremarkable except as noted in HPI and below Cardiovascular Cardiovascular: Reports chest pain and Reports dyspnea Respiratory Respiratory: Reports dyspnea [facility] All Active Problems (Updated 03/10/23 @ 10:41 by Doc Ramos MD) Schizoaffective disorder (Acute 09/07/14) Rebekah Mariscal [facility] 09/2014- [facility] inpatient Hypothyroidism (acquired) (Acute 09/07/14) Hypercholesterolemia (Chronic 09/07/14) pt insists on lipitor 80 mg due to family hx GERD (gastroesophageal reflux disease) (Acute 09/07/14) Diabetes mellitus type 2 in obese (Acute 09/09/14) Depression (Acute 10/02/14) Left-sided chest wall pain (Acute) Hypertension (Chronic) pt requests brand name Tenormin vs atenolol 04/02/18 Chest pain (Acute) Chronic headache (Acute) Migraine headache without aura (Acute) Migraine (Chronic) Obesity (Chronic) BMI 52 Poor dentition (Acute) Tobacco use disorder (Chronic) started 2013 1.5 ppd, pipe 1-7/week, QUIT LATE OCT 2021 Allergic rhinitis (Chronic) lortadine Hiatal hernia (Chronic) protonix not effective, nexium works better 02/12/18 Anemia (Chronic) Broken teeth (Chronic) Drug-seeking behavior (Chronic ~09/20/21) Requests Ritalin from providers Medication overuse headache (Acute) Acute hyperglycemia (Acute) Chest pain (Acute) Atypical chest pain (Acute) Medical History Anxiety Dental caries Hyperlipidemia Mitral valve prolapse Peripheral neuropathy Trigeminal neuralgia Surgical History No significant past surgical history Family History Father Heart disease IA Social History Smoking/Tobacco Use Status: Current every day Tobacco Type: cigarettes, pipe Years: 8 Other: States equivalent to 1.5 packs cigarettes and cigars Smoking risk assessment performed?: Yes Alcohol Intake: never Drug use: Never Substance use type: does not use Adopted: No Caregiver/Support person: No Foster care: No Household members: none Housing: apartment Number of Children: 2 number of grandchildren: 1 Communication Needs: Corrective Lenses Education Level: college Do you need help understanding health information?: Always current occupation: Unemployed/Leave of absence Sexually active: No Do you think of yourself as: Decline to provide Current gender identity: male What type of physical activity do you participate in: other Details: weight lifting Frequency: 3-4 times per week Magalie/[employer]ar[employer]: [employer]ism Seatbelt use: always Drive 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 Exam Const General: cooperative and no acute distress HENOK Head: normocephalic and atraumatic Mouth: moist mucous membranes Eyes Conjunctivae: normal conjunctivae Sclera: normal sclerae Neck Neck: trachea midline and supple Resp Auscultation: clear to auscultation bilaterally, no rales, no rhonchi and no wheezes Cardio Rate: regular rate and not tachycardic Rhythm: regular rhythm Heart Sounds: no gallops, no murmurs and no rubs GI Palpation: soft, not firm, no guarding, no masses, not rigid and nontender Skin General skin exam: no rashes or lesions noted Neuro General: patient alert, patient awake and tone normal Extrem General: no calf tenderness and no edema Psych Appearance: grossly normal Mental Status: mental status grossly normal Course Vital Signs Vital signs: Vital Signs Temperature 36.7 C 02/23/23 07:52 Pulse 75 02/23/23 07:52 Respiratory Rate 18 02/23/23 07:52 Blood Pressure 144/43 H 02/23/23 07:52 Pulse Oximetry 96 04/21/23 07:52 Temperature 36.7 C 02/23/23 07:52 Temperature Source Oral 02/23/23 07:52 Pulse 75 02/23/23 07:52 Respiratory Rate 18 02/23/23 07:56 Respiratory Effort Normal, Non-Labored 02/23/23 07:56 Respiratory Depth Normal 02/23/23 07:56 Respiratory Pattern Normal 02/23/23 07:56 Blood Pressure 144/43 H 02/23/23 07:52 Pulse Oximetry 96 02/23/23 07:52 Oxygen Delivery Method Room Air 02/23/23 07:52 Oxygen Flow Rate 0 02/23/23 07:52
[2023-02-23 09:01] LABS: Troponin I < 50 ng/L (<or=60)
[2023-02-23 10:26] LABS: Troponin I < 50 ng/L (<or=60)
[2023-02-23 11:00] VITALS: BP 117/62; PULSE 68; RESP 18; O2SAT 96
== END 2023-02-23 11:03 | disposition home or self-care (01) ==
PROVIDERS: Emergency Provider Student in an Organized Health Care Education/Training Program; PCP Family Medicine
DX: R07.89 Other chest pain (principal); I25.10 Atherosclerotic heart disease of native coronary artery without angina pectoris; E11.42 Type 2 diabetes mellitus with diabetic polyneuropathy; I10 Essential (primary) hypertension; Z79.82 Long term (current) use of aspirin; Z79.84 Long term (current) use of oral hypoglycemic drugs
CPT/HCPCS: 93005; 99283; 84484; 93010

== ENCOUNTER 2023-02-26 11:04 | Emergency (ER) | payer MEDICAID, SELFPAY ==
--- NOTE | 2023-02-26 10:45 | RT.EKG_ITS ---
APPROVED REPORT Exam: Resting ECG Reason for Exam: chest pain Patient Location: E HR:74 bpm ECG Measurements Heart Rate 74 AXIS DE 190 P 37 QRSd 95 QRS 28 QT 393 T 56 QTc 436 Conclusion Sinus rhythm...normal P axis, V-rate 60- 99
--- NOTE | 2023-02-26 10:59 | W.ED.GENAD ---
Discharge Plan Disposition Patient Disposition: Home Condition: Stable Discharge Details Clinical Impression: Left-sided chest wall pain, Hypertension Primary Care Provider: Chevy Foster ED Provider: Jose Cullen Home Meds and New Rx's Prescriptions: Continued Nurtec ODT 75 mg tablet,disintegrating 75 mg PO ONCE PRN (Reason: migraine headache) Qty: 10 3RF Rx Instructions: As a single dose. No more than one dose in 24 hours. chlorhexidine gluconate [Peridex] 0.12 % mouthwash 15 ml mucous membrane BID Qty: 473 5RF Rx Instructions: rinse and spit twice a day Emgality Pen 120 mg/mL pen injector 120 mg subcut QMONTH Qty: 1 11RF sumatriptan succinate 100 mg tablet See Rx Instructions PO .COMPLEX Qty: 9 5RF Rx Instructions: take 1 tab at onset of headache; if no relief, may repeat 1 tab after at least 2 hrs; max = 2 tabs/24 hrs PO Claritin Liqui-Gel 10 MG capsule 1 cap PO DAILY Qty: 90 prochlorperazine maleate 10 mg tablet See Rx Instructions .ROUTE .COMPLEX Qty: 20 2RF Dose Instruction: TAKE 1 TABLET BY MOUTH EVERY 8 HOURS NEEDED FOR NAUSEA AND VOMITING, HEADACHE Rx Instructions: TAKE 1 TABLET BY MOUTH EVERY 8 HOURS NEEDED FOR NAUSEA AND VOMITING, HEADACHE multivitamin Tablet 1 tab PO DAILY vitamin A 10,000 unit Capsule 10,000 unit PO DAILY metformin 500 mg tablet 1 tab PO BID omeprazole 20 mg capsule,delayed release(DR/EC) 40 mg PO DAILY Nurtec ODT 75 mg tablet,disintegrating 75 mg PO PRN PRN Patient Comments: Take 1 tablet by mouth once a day as needed for migraine benztropine 0.5 MG tablet 0.5 mg PO BID aspirin,buffd-calcium carb-mag 325 MG tablet 325 mg PO DAILY Risperdal Consta 25 mg/2 mL suspension,extended rel recon 25 mg IM USEASDIRECTD Patient Comments: INJECT ONE SYRINGE INTRAMUSCULARLY ONCE EVERY TWO WEEKS Rx Instructions: every 2 weeks lactulose 10 gram/15 mL solution 20 g PO DIRECTED PRN Patient Comments: TAKE ONE TO TWO TABLESPOONS BY MOUTH NEEDED WHEN 3 DAYS PASS WITHOUT BOWEL MOVEMENT lorazepam 1 mg tablet 1 mg PO QID Patient Comments: TK 1 T PO QAM THEN 2 TS HS Rx Instructions: 01/03/21 1 mg in am and 2 mg at hs Reports 1 mg in am, 1 mg in afternoon, 2 mg at hs albuterol sulfate 90 mcg/actuation aerosol powdr breath activated 2 inh IH Q6H PRN (Reason: shortness of breath or wheezing) Qty: 1 0RF Nu-Mag 71.5 mg tablet,delayed release (DR/EC) 71.5 mg PO DAILY Qty: 20 0RF atenolol 50 mg tablet 75 mg PO DAILY Rx Instructions: To take with 25mg dose for TDD 75mg daily simvastatin 40 mg tablet 40 mg PO DAILY Discharge Instructions Instructions: Pleurisy (ED), Hypertension (ED), Chest Wall Pain (ED) Referrals: Chevy Foster [Primary Care Provider] - 1 day Discharge Data Discharge Physician: Jose Cullen Medical Decision Making Patient who is a frequent visitor to the emergency department who came last with the same complaint which are still with the same complaint. Left-sided chest pain which is mostly pleuritic in nature which she states takes a breath in and hurts is a sharp pain. Labs were obtained which included troponin which is all negative exam as the EKG which does not show any abnormalities as read by me at this time there is normal heart to work-up here in the emergency department the patient will be discharged home with follow-up as he had with case management last week Differential Diagnosis Differential Diagnosis: 1. Pleuritic type chest pain 2. Costochondritis 3. Acute coronary syndro Medical Records Medical records reviewed: Yes I reviewed the patient's medical records. Lab Data Lab results reviewed: Yes I reviewed the patient's lab results. ECG Data Attestation: I personally reviewed and interpreted this ECG (s) as follows: Prior ECG tracings: available for review Interpretation: Heart rate of 74 normal axis normal rate and rhythm with normal IN intervals no acute ST-T changes unchanged from the previous EKG done 02/20/2023 HPI General Date/Time Provider Initiated Documentation: 02/26/23 11:28. HPI Narrative: Patient presents to the emergency department complaining of a sharp left-sided pleuritic type chest pain that he had last week when he presented to the emergency department twice and had a full work-up which included troponin and x-rays EKGs all negative. Patient does smoke cigarettes and reports cough nonproductive sputum reports the pain is worse when he breathes and coughs she rated about a 4/10 pain over the left side of his chest sharp in nature nonradiating. Denies any shortness of breath reports mild nausea no vomiting Related Data Home Medications Medication Instructions Recorded Confirmed loratadine 10 mg capsule (Claritin 1 cap PO DAILY #90 tabs 12/16/14 02/26/23 Liqui-Gel) aspirin,buffered (calcium 325 mg PO DAILY 11/18/16 02/26/23 carbonate-magnesium) 325 mg tablet benztropine 0.5 mg tablet 0.5 mg PO BID 11/18/16 02/26/23 lactulose 10 gram/15 mL oral 20 g PO DIRECTED PRN 10/03/20 02/26/23 solution risperidone microspheres 25 mg/2 25 mg IM USEASDIRECTD 10/03/20 02/26/23 mL intramuscular susp,ext release (Risperdal Consta) albuterol sulfate 90 mcg/actuation 2 inh inhalation Q6H PRN shortness 12/15/20 02/26/23 breath activated powder inhaler of breath or wheezing #1 ea multivitamin 1 tab PO DAILY 01/26/21 02/26/23 vitamin A 3,000 mcg (10,000 unit) 10,000 unit PO DAILY 01/26/21 02/26/23 capsule lorazepam 1 mg tablet 1 mg PO QID 07/05/21 02/26/23 chlorhexidine gluconate 0.12 % 15 ml mucous membrane BID dental 09/06/21 02/26/23 mouthwash (Peridex) problem #473 mL metformin 500 mg tablet 1 tab PO BID 03/18/22 02/26/23 omeprazole 20 mg capsule,delayed 40 mg PO DAILY 03/18/22 02/26/23 release galcanezumab-gnlm 120 mg/mL 120 mg subcut QMONTH #1 mL 04/05/22 02/26/23 subcutaneous pen injector (Emgality Pen) sumatriptan succinate 100 mg tablet See Rx Instructions PO .COMPLEX #9 06/28/22 02/26/23 tabs magnesium chloride 71.5 mg 71.5 mg PO DAILY #20 tabs 09/05/22 02/26/23 (magnesium chloride) tablet,delayed release (Nu-Mag) atenolol 50 mg tablet 75 mg PO DAILY 09/26/22 02/26/23 simvastatin 40 mg tablet 40 mg PO DAILY 12/25/22 02/26/23 prochlorperazine maleate 10 mg See Rx Instructions .Route 01/08/23 02/26/23 tablet .COMPLEX #20 tabs rimegepant 75 mg disintegrating 75 mg PO ONCE PRN migraine 01/17/23 02/26/23 tablet (Nurtec ODT) headache #10 tabs rimegepant 75 mg disintegrating 75 mg PO PRN PRN 02/06/23 02/26/23 tablet (Nurtec ODT) Previous Rx's Medication Instructions Recorded albuterol sulfate 90 mcg/actuation 2 inh inhalation Q6H PRN shortness 12/15/20 breath activated powder inhaler of breath or wheezing #1 ea chlorhexidine gluconate 0.12 % 15 ml mucous membrane BID dental 09/06/21 mouthwash (Peridex) problem #473 mL galcanezumab-gnlm 120 mg/mL 120 mg subcut QMONTH #1 mL 04/05/22 subcutaneous pen injector (Emgality Pen) sumatriptan succinate 100 mg tablet See Rx Instructions PO .COMPLEX #9 06/28/22 tabs magnesium chloride 71.5 mg 71.5 mg PO DAILY #20 tabs 09/05/22 (magnesium chloride) tablet,delayed release (Nu-Mag) prochlorperazine maleate 10 mg See Rx Instructions .Route 01/08/23 tablet .COMPLEX #20 tabs rimegepant 75 mg disintegrating 75 mg PO ONCE PRN migraine 01/17/23 tablet (Nurtec ODT) headache #10 tabs Allergies Allergy/AdvReac Type Severity Reaction Status Date / Time buspirone Allergy Verified 02/26/23 11:10 paliperidone Allergy Verified 02/26/23 11:10 paroxetine HCl [From Paxil] Allergy Verified 02/26/23 11:10 sertraline Allergy Verified 02/26/23 11:10 ziprasidone [From Geodon] Allergy Other (See Verified 02/26/23 11:10 Comment) aripiprazole [From Abilify] AdvReac Intermediate INVOLUNTARY Verified 02/26/23 11:10 MUSCLE MOVEMENTS divalproex sodium AdvReac Intermediate INVOLUNTARY Verified 02/26/23 11:10 [From Depakote] MUSCLE MOVEMENTS mirtazapine AdvReac Intermediate INVOLUNTARY Verified 02/26/23 11:10 MUSCLE MOVEMENTS risperidone AdvReac Intermediate INVOLUNTARY Verified 02/26/23 11:10 MUSCLE MOVEMENTS benztropine mesylate AdvReac elevated Verified 02/26/23 11:10 [From Cogentin] blood sugars enviornmental Allergy Mild Wheezing Uncoded 02/26/23 11:10 General CARLOS: 3 Review of Systems All systems reviewed & are unremarkable except as noted in HPI and below Constitutional Constitutional: Reports as per HPI Eyes Eyes: Reports as per HPI ENT Ears, Nose, Mouth, and Throat: Reports system reviewed and no additional complaints, except as documented Cardiovascular Cardiovascular: Reports as per HPI and Reports system reviewed and no additional complaints, except as documented Respiratory Respiratory: Reports as per HPI and Reports system reviewed and no additional complaints, except as documented Gastrointestinal Gastrointestinal: Reports as per HPI and Reports system reviewed and no additional complaints, except as documented Musculoskeletal Musculoskeletal: Reports system reviewed and no additional complaints, except as documented Neurologic Neurologic: Reports system reviewed and no additional complaints, except as documented Psychiatric Psychiatric: Reports system reviewed and no additional complaints, except as documented Endocrine Endocrine: Reports system reviewed and no additional complaints, except as documented Hematologic/Lymphatic Hematologic/Lymphatic: Reports system reviewed and no additional complaints, except as documented PFSH All Active Problems (Updated 02/26/23 @ 12:33 by Jose Cullen MD) Schizoaffective disorder (Acute 09/07/14) Rebekah Mariscal [facility] 09/2014- [facility] inpatient Hypothyroidism (acquired) (Acute 09/07/14) Hypercholesterolemia (Chronic 09/07/14) pt insists on lipitor 80 mg due to family hx GERD (gastroesophageal reflux disease) (Acute 09/07/14) Diabetes mellitus type 2 in obese (Acute 09/09/14) Depression (Acute 10/02/14) Left-sided chest wall pain (Acute) Hypertension (Chronic) pt requests brand name Tenormin vs atenolol 04/02/18 Chest pain (Acute) Chronic headache (Acute) Migraine headache without aura (Acute) Migraine (Chronic) Obesity (Chronic) BMI 52 Poor dentition (Acute) Tobacco use disorder (Chronic) started 2013 1.5 ppd, pipe 1-7/week, QUIT LATE OCT 2021 Allergic rhinitis (Chronic) lortadine Hiatal hernia (Chronic) protonix not effective, nexium works better 02/12/18 Anemia (Chronic) Broken teeth (Chronic) Drug-seeking behavior (Chronic ~09/20/21) Requests Ritalin from providers Medication overuse headache (Acute) Chest pain (Acute) Acute hyperglycemia (Acute) Chest pain (Acute) Medical History Anxiety Dental caries Hyperlipidemia Mitral valve prolapse Peripheral neuropathy Trigeminal neuralgia Surgical History No significant past surgical history Family History Father Heart disease [place] Social History Smoking/Tobacco Use Status: Current every day Tobacco Type: cigarettes, pipe Years: 8 Other: States equivalent to 1.5 packs cigarettes and cigars Smoking risk assessment performed?: Yes Alcohol Intake: never Drug use: Never Substance use type: does not use Adopted: No Caregiver/Support person: No Foster care: No Household members: none Housing: apartment Number of Children: 2 number of grandchildren: 1 Communication Needs: Corrective Lenses Education Level: college Do you need help understanding health information?: Always current occupation: Unemployed/Leave of absence Sexually active: No Do you think of yourself as: Decline to provide Current gender identity: male What type of physical activity do you participate in: other Details: weight lifting Frequency: 3-4 times per week Magalie/Sikh: Alevism Seatbelt use: always Drive intox or ride w/intox 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: No Working smoke detector in home: Yes Fire extinguisher in home: Yes Carbon monox detector in home: Yes Do you feel safe at home: Yes (anxiety and depression) Do you feel safe in your relationship?: Yes Exam Const General: cooperative, comfortable, no acute distress and well developed HENMT Head: normal to inspection and atraumatic Ears: hearing grossly normal bilaterally Face and sinus: normal facial exam Mouth: oral mucosae normal and tongue normal Eyes General: appearance normal, both eyes and all related structures Visual Herr: normal visual herr by confrontation EOM: EOM intact bilaterally Direct ophthalmoscopy: normal light reflex Neck Neck: normal visual inspection, full ROM and no lymphadenopathy Chest Chest: normal inspection of the chest, normal palpation of entire chest wall and abnormal inspection of the chest Resp Effort & Inspection: normal respiratory effort, able to speak in complete sentences and abnormal respiratory pattern Auscultation: clear to auscultation bilaterally Cardio Jugular venous pressure: no JVD Palpation: normal PMI Rate: regular rate Rhythm: regular rhythm Heart Sounds: S1 normal and S2 normal GI Inspection: normal to inspection Palpation: soft Percussion: normal to percussion Back/Spine/Pelvis Back: no CVA tenderness Skin General skin exam: no rashes or lesions noted Neuro General: patient alert, patient awake, patient oriented x3, gait normal, tone normal and moves all extremities Cranial Nerves: CN's II-XI intact bilaterally Cognition: normal cognition Speech: speech normal Gait: normal gait Motor: muscle tone normal throughout Sensory Exam: no sensory deficits noted Extrem General: normal to inspection and no pedal edema Psych Appearance: grossly normal Mental Status: mental status grossly normal Attitude: cooperative Thought Content: normal Insight: limited Course Patient who visits emergency department frequently with chest pain who comes with pleuritic type chest pain on the left side. Physical exam is unremarkable with normal lung examination. EKG shows normal sinus rhythm no acute abnormality Labs unremarkable and unchanged from his previous visit here last with a troponin which is negative. At this time the patient most likely has a pleuritic type chest pain he will be discharged home Vital Signs Vital signs: BP 135/100 pulse 76 RR 20 Tempn 37 O2 Sat 97 Lab/Test Results Lab/Test Results: RUN DATE: 02/26/23 [facility] PAGE 1 RUN TIME: [address] RUN USER: [email or web address] [address] Kateryna Chavez MD PATIENT REPORT PATIENT: Avery Sharp LOC: ER U #: [id number] /SX: 1965 M ROOM: RE02/26/[address]: Jose Cullen M.D. STATUS: REG ER BED: DIS: SPEC #: [id number] GLADYS: 02/26/23 STATUS: COMP REQ #: [id number] RECD: 02/26/[address]: Jose Cullen M.D. ENTERED: 02/26/23 [facility] DR: CHEVY FOSTER DO FAX #: ORDERED: CBC/Diff Test Result Flag Reference Verified WBC 6.66 4.4-10.8 10^3/uL 02/26/23120 RBC 3.91 L 4.36-5.78 10^6/uL 02/26/23 HGB 11.8 L 13.5-17.5 g/dL 02/26/23 HCT 34.3 L 40.0-50.0 % 02/26/23 MCV 88 80-95 fL 02/26/23 MCH 30.2 27.0-33.0 pg 02/26/23 MCHC 34.4 32.0-36.0 % 02/26/23 RDW 12.2 11.8-14.1 % 02/26/23 Platelet Count 144 130-400 10^3/uL 02/26/23 MPV 8.5 8.0-11.0 fL 02/26/23 Neutrophils % 67.7 02/26/23 Lymphocytes % 20.1 02/26/23 Monocytes % 6.6 02/26/23 Eosinophils % 4.8 02/26/23 Basophils % 0.3 02/26/23 Immature Grans % 0.5 02/26/23 Nucleated RBC 0.0 0.0-0.3 % 02/26/23 Absolute Neutrophil Count 4.51 1.2-6.7 10^3/uL 02/26/23 Absolute Lymphocyte Count 1.34 1.2-3.4 10^3/uL 02/26/23 Absolute Monocyte Count 0.44 0.1-0.8 10^3/uL 02/26/23 Absolute Eosinophil Count 0.32 0.0-0.7 10^3/uL 02/26/23 Absolute Basophil Count 0.02 0.0-0.2 10^3/uL 02/26/23 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 Allergy/Adv: buspirone, paliperidone, paroxetine HCl, sertraline, ziprasidone, aripiprazole, divalproex sodium, mirtazapine, risperidone, benztropine mesylate, [enviornmental] (More??) Back Sodium Level (Complete) 02/26/23 Sodium Level (Complete) 02/19/23 Sodium Level (Complete) 02/11/23 Sodium Level (Complete) 02/09/23 Sodium Level (Complete) 02/06/23 Sodium Level (Cancelled) 02/06/23 Sodium Level (Complete) 01/20/23 Sodium Level (Complete) 01/18/23 Sodium Level (Complete) 01/06/23 Sodium Level (Complete) 01/02/23 Sodium Level (Complete) 12/30/22 Sodium Level (Complete) 12/27/22 Sodium Level (Complete) 12/25/22 Sodium Level (Complete) 12/19/22 Sodium Level (Resulted) 12/02/22 Sodium Level (Complete) 10/10/22 Sodium Level (Complete) 10/03/22 Sodium Level (Complete) 09/26/22 Sodium Level (Complete) 09/22/22 Sodium Level (Complete) 09/19/22 Sodium Level (Cancelled) 09/05/22 Sodium Level (Complete) 09/05/22 Sodium Level (Complete) 07/20/22 Sodium Level (Complete) 06/14/22 Sodium Level (Complete) 05/17/22 Sodium Level (Complete) 03/05/22 Sodium Level (Resulted) 12/11/21 Sodium Level (Complete) 11/29/21 Sodium Level (Complete) 11/18/21 Sodium Level (Complete) 04/22/21 Sodium Level (Complete) 04/21/21 Sodium Level (Complete) 04/12/21 Sodium Level (Complete) 04/03/21 Sodium Level (Complete) 03/09/21 Sodium Level (Complete) 02/11/21 Sodium Level (Complete) 01/26/21 Sodium Level (Complete) 01/03/21 Sodium Level (Complete) 12/26/20 Sodium Level (Complete) 12/15/20 Sodium Level (Complete) 12/11/20 Sodium Level (Complete) 10/12/20 Sodium Level (Complete) 10/09/20 Sodium Level (Cancelled) 10/09/20 Sodium Level (Complete) 10/03/20 Sodium Level (Complete) 08/13/19 Sodium Level (Complete) 11/27/16 Sodium Level (Complete) 11/19/16 Sodium Level (Complete) 09/16/14 Sodium Level (Complete) 08/20/14 RUN DATE: 02/26/23 [facility] PAGE 1 RUN TIME: [address] RUN USER: [email or web address] [address] Kateryna Chavez MD PATIENT REPORT PATIENT: Avery Sharp LOC: ER U #: [id number] /SX: 1965 M ROOM: RE02/26/[address]: Jose Cullen M.D. STATUS: REG ER BED: DIS: SPEC #: [id number] GLADYS: 02/26/23 STATUS: COMP REQ #: [id number] RECD: 02/26/[address]: Jose Cullen M.D. ENTERED: 02/26/23 [facility] DR: CHEVY FOSTER DO FAX #: ORDERED: CMP, MG, Troponin I Test Result Flag Reference Verified Calcium 9.0 8.5-10.1 mg/dL 02/26/23 Glucose 207 H 74-106 mg/dL 02/26/23 BUN 9 7-18 mg/dL 02/26/23 Creatinine 0.8 0.70-1.30 mg/dL 02/26/23 Estimated GFR 103.22 mL/min/1.73m2 02/26/23 The eGFR is calculated from a serum creatinine using the CKD-EPI 2020 equation. Other variables required for the equation are gender and age; this equation does not include a race coefficient. This equation has similar overall performance to previous equations except values may differ, in particular, in patients with higher values of eGFR and younger-aged adults. Total Protein 7.5 6.4-8.2 g/dL 02/26/23-1221 Albumin 3.2 L 3.4-5.0 g/dL 02/26/23 Bilirubin, Total 0.2 0.2-1.0 mg/dL 02/26/23 Alk Phos 83 46-116 U/L 02/26/23 Sodium 135 L 136-145 mmol/L 02/26/23 Potassium 4.3 3.5-5.1 mmol/L 02/26/23 Chloride 100 98-107 mmol/L 02/26/23 CO2 30.0 21.0-32.0 mmol/L 02/26/23 Anion Gap 5.0 3-11 mmol/L 02/26/23 AST 14 L 15-37 U/L 02/26/23 ALT 27 16-63 U/L 02/26/23 Magnesium 1.7 L 1.8-2.4 mg/dL 02/26/23 Cardiac Troponin I < 50 <or=60 ng/L 02/26/23 Patient: Avery Sharp LABORATORY Acct#[id number] Unit#[id number]
[2023-02-26 11:07] VITALS: BP 135/100; PULSE 76; RESP 20; TEMP 37; O2SAT 97
[2023-02-26 11:13] VITALS: RESP 20
[2023-02-26 12:01] LABS: Abs Immature Grans 0.03 10^3/uL (0.0-0.06); Absolute Basophil Count 0.02 10^3/uL (0.0-0.2); Absolute Eosinophil Count 0.32 10^3/uL (0.0-0.7); Absolute Lymphocyte Count 1.34 10^3/uL (1.2-3.4); Absolute Monocyte Count 0.44 10^3/uL (0.1-0.8); Absolute Neutrophil Count 4.51 10^3/uL (1.2-6.7); Basophils % 0.3; Eosinophils % 4.8; HCT 34.3 % (40.0-50.0); HGB 11.8 g/dL (13.5-17.5); Immature Grans % 0.5; Lymphocytes % 20.1; MCH 30.2 pg (27.0-33.0); MCHC 34.4 % (32.0-36.0); MCV 88 fL (80-95); MPV 8.5 fL (8.0-11.0); Monocytes % 6.6; Neutrophils % 67.7; Platelet Count 144 10^3/uL (130-400); RBC 3.91 10^6/uL (4.36-5.78); RDW 12.2 % (11.8-14.1); RDW-SD 38.9 fL; WBC 6.66 10^3/uL (4.4-10.8)
[2023-02-26 12:21] LABS: ALT 27 U/L (16-63); AST 14 U/L (15-37); Albumin 3.2 g/dL (3.4-5.0); Alkaline Phosphatase 83 U/L (46-116); BUN 9 mg/dL (7-18); Bilirubin, Total 0.2 mg/dL (0.2-1.0); CREATININE 0.8 mg/dL (0.70-1.30); Chloride 100 mmol/L (98-107); Estimated GFR 103.22 (mL/min/1.73m2); Glucose 207 mg/dL (74-106); Magnesium 1.7 mg/dL (1.8-2.4); Potassium 4.3 mmol/L (3.5-5.1); Sodium 135 mmol/L (136-145); Total Protein 7.5 g/dL (6.4-8.2); Troponin I < 50 ng/L (<or=60)
[2023-02-26 12:51] VITALS: BP 146/78; PULSE 67; RESP 18; TEMP 36.6; O2SAT 97
== END 2023-02-26 12:52 | disposition home or self-care (01) ==
PROVIDERS: Emergency Provider Emergency Medicine Emergency Medical Services; PCP Family Medicine
DX: R07.81 Pleurodynia (principal); I10 Essential (primary) hypertension; Z79.82 Long term (current) use of aspirin
CPT/HCPCS: 36415; 80053; 93005; 99283; 83735; 84484; 85025; 93010

== ENCOUNTER 2023-02-28 09:14 | Emergency (ER) | payer MEDICAID, SELFPAY ==
--- NOTE | 2023-02-28 09:15 | RT.EKG_ITS ---
APPROVED REPORT Exam: Resting ECG Reason for Exam: chest pain Patient Location: E HR:71 bpm ECG Measurements Heart Rate 71 AXIS AL 184 P 46 QRSd 104 QRS 22 QT 419 T 54 QTc 456 Conclusion Sinus rhythm...normal P axis, V-rate 60- 99
[2023-02-28 09:23] VITALS: BP 143/71; PULSE 74; RESP 18; TEMP 36.5; O2SAT 97
[2023-02-28 09:24] VITALS: RESP 18
--- NOTE | 2023-02-28 09:36 | ED.GENADUL_ITS ---
Discharge Plan Disposition Patient Disposition: Home Discharge Details Clinical Impression: Chest pain, Atypical chest pain Primary Care Provider: Chevy Foster ED Provider: Jose Cullen Home Meds and New Rx's Prescriptions: Continued Nurtec ODT 75 mg tablet,disintegrating 75 mg PO ONCE PRN (Reason: migraine headache) Qty: 10 3RF Rx Instructions: As a single dose. No more than one dose in 24 hours. chlorhexidine gluconate [Peridex] 0.12 % mouthwash 15 ml mucous membrane BID Qty: 473 5RF Rx Instructions: rinse and spit twice a day Emgality Pen 120 mg/mL pen injector 120 mg subcut QMONTH Qty: 1 11RF sumatriptan succinate 100 mg tablet See Rx Instructions PO .COMPLEX Qty: 9 5RF Rx Instructions: take 1 tab at onset of headache; if no relief, may repeat 1 tab after at least 2 hrs; max = 2 tabs/24 hrs PO Claritin Liqui-Gel 10 MG capsule 1 cap PO DAILY Qty: 90 prochlorperazine maleate 10 mg tablet See Rx Instructions .ROUTE .COMPLEX Qty: 20 2RF Dose Instruction: TAKE 1 TABLET BY MOUTH EVERY 8 HOURS NEEDED FOR NAUSEA AND VOMITING, HEADACHE Rx Instructions: TAKE 1 TABLET BY MOUTH EVERY 8 HOURS NEEDED FOR NAUSEA AND VOMITING, HEADACHE multivitamin Tablet 1 tab PO DAILY vitamin A 10,000 unit Capsule 10,000 unit PO DAILY metformin 500 mg tablet 1 tab PO BID omeprazole 20 mg capsule,delayed release(DR/EC) 40 mg PO DAILY Nurtec ODT 75 mg tablet,disintegrating 75 mg PO PRN PRN Patient Comments: Take 1 tablet by mouth once a day as needed for migraine benztropine 0.5 MG tablet 0.5 mg PO BID aspirin,buffd-calcium carb-mag 325 MG tablet 325 mg PO DAILY Risperdal Consta 25 mg/2 mL suspension,extended rel recon 25 mg IM USEASDIRECTD Patient Comments: INJECT ONE SYRINGE INTRAMUSCULARLY ONCE EVERY TWO WEEKS Rx Instructions: every 2 weeks lactulose 10 gram/15 mL solution 20 g PO DIRECTED PRN Patient Comments: TAKE ONE TO TWO TABLESPOONS BY MOUTH NEEDED WHEN 3 DAYS PASS WITHOUT BOWEL MOVEMENT lorazepam 1 mg tablet 1 mg PO QID Patient Comments: TK 1 T PO QAM THEN 2 TS HS Rx Instructions: 01/03/21 1 mg in am and 2 mg at hs Reports 1 mg in am, 1 mg in afternoon, 2 mg at hs albuterol sulfate 90 mcg/actuation aerosol powdr breath activated 2 inh IH Q6H PRN (Reason: shortness of breath or wheezing) Qty: 1 0RF Nu-Mag 71.5 mg tablet,delayed release (DR/EC) 71.5 mg PO DAILY Qty: 20 0RF atenolol 50 mg tablet 75 mg PO DAILY Rx Instructions: To take with 25mg dose for TDD 75mg daily simvastatin 40 mg tablet 40 mg PO DAILY Discharge Instructions Instructions: Chest Pain (ED) Discharge Data Discharge Physician: Jose Cullen Medical Decision Making Medical Records Medical records reviewed: Yes I reviewed the patient's medical records. Imaging Data Radiologic Study: Attestation: I personally reviewed and interpreted this imaging study as follows: Imaging: X-Ray My impression: Normal chest x-ray no infiltrates Lab Data Lab results reviewed: Yes I reviewed the patient's lab results. Lab results narrative: Avery Sharp??He/Him/His??57??M??1965 ? Allergy/Adv: buspirone, paliperidone, paroxetine HCl, sertraline, ziprasidone, aripiprazole, divalproex sodium, mirtazapine, risperidone, benztropine mesylate, [enviornmental] (More??) RUN DATE: 02/28/23 [facility] PAGE 1 RUN TIME: [id number] RUN USER: [place] [address] Kateryna Chavez MD PATIENT REPORT PATIENT: Avery Sharp LOC: ER U #: [id number] /SX: 1965 M ROOM: RE02/28/[address]: Jose Cullen M.D. STATUS: REG ER BED: D IS: SPEC #: [id number] GLADYS: 02/28/23 STATUS: COMP REQ #: [id number] RECD: 02/28/23-[address]: Jose Cullen M.D. 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 HPI Narrative: Patient presents to the emergency department again after he was seen by me 2 days ago complaining of the same left sided sharp chest pain which he states is worse when he takes a deep breath. States that the pain started this morning and is lasted 3 hours and is constant worse when he breathes and he moves and he states that the reason he called the ambulance to return to the emergency department. Denies any cough denies any shortness of breath. Reports the pain is a sharp 4-10 pain nonradiating Related Data Home Medications Medication Instructions Recorded Confirmed loratadine 10 mg capsule (Claritin 1 cap PO DAILY #90 tabs 12/16/14 02/28/23 Liqui-Gel) aspirin,buffered (calcium 325 mg PO DAILY 11/18/16 02/28/23 carbonate-magnesium) 325 mg tablet benztropine 0.5 mg tablet 0.5 mg PO BID 11/18/16 02/28/23 lactulose 10 gram/15 mL oral 20 g PO DIRECTED PRN 10/03/20 02/28/23 solution risperidone microspheres 25 mg/2 25 mg IM USEASDIRECTD 10/03/20 02/28/23 mL intramuscular susp,ext release (Risperdal Consta) albuterol sulfate 90 mcg/actuation 2 inh inhalation Q6H PRN shortness 12/15/20 02/28/23 breath activated powder inhaler of breath or wheezing #1 ea multivitamin 1 tab PO DAILY 01/26/21 02/28/23 vitamin A 3,000 mcg (10,000 unit) 10,000 unit PO DAILY 01/26/21 02/28/23 capsule lorazepam 1 mg tablet 1 mg PO QID 07/05/21 02/28/23 chlorhexidine gluconate 0.12 % 15 ml mucous membrane BID dental 09/06/21 02/28/23 mouthwash (Peridex) problem #473 mL metformin 500 mg tablet 1 tab PO BID 03/18/22 02/28/23 omeprazole 20 mg capsule,delayed 40 mg PO DAILY 03/18/22 02/28/23 release galcanezumab-gnlm 120 mg/mL 120 mg subcut QMONTH #1 mL 04/05/22 02/28/23 subcutaneous pen injector (Emgality Pen) sumatriptan succinate 100 mg tablet See Rx Instructions PO .COMPLEX #9 06/28/22 02/28/23 tabs magnesium chloride 71.5 mg 71.5 mg PO DAILY #20 tabs 09/05/22 02/28/23 (magnesium chloride) tablet,delayed release (Nu-Mag) atenolol 50 mg tablet 75 mg PO DAILY 09/26/22 02/28/23 simvastatin 40 mg tablet 40 mg PO DAILY 12/25/22 02/28/23 prochlorperazine maleate 10 mg See Rx Instructions .Route 01/08/23 02/28/23 tablet .COMPLEX #20 tabs rimegepant 75 mg disintegrating 75 mg PO ONCE PRN migraine 01/17/23 02/28/23 tablet (Nurtec ODT) headache #10 tabs rimegepant 75 mg disintegrating 75 mg PO PRN PRN 02/06/23 02/28/23 tablet (Nurtec ODT) Previous Rx's Medication Instructions Recorded albuterol sulfate 90 mcg/actuation 2 inh inhalation Q6H PRN shortness 12/15/20 breath activated powder inhaler of breath or wheezing #1 ea chlorhexidine gluconate 0.12 % 15 ml mucous membrane BID dental 09/06/21 mouthwash (Peridex) problem #473 mL galcanezumab-gnlm 120 mg/mL 120 mg subcut QMONTH #1 mL 04/05/22 subcutaneous pen injector (Emgality Pen) sumatriptan succinate 100 mg tablet See Rx Instructions PO .COMPLEX #9 06/28/22 tabs magnesium chloride 71.5 mg 71.5 mg PO DAILY #20 tabs 09/05/22 (magnesium chloride) tablet,delayed release (Nu-Mag) prochlorperazine maleate 10 mg See Rx Instructions .Route 01/08/23 tablet .COMPLEX #20 tabs rimegepant 75 mg disintegrating 75 mg PO ONCE PRN migraine 01/17/23 tablet (Nurtec ODT) headache #10 tabs Allergies Allergy/AdvReac Type Severity Reaction Status Date / Time buspirone Allergy Verified 02/28/23 09:25 paliperidone Allergy Verified 02/28/23 09:25 paroxetine HCl [From Paxil] Allergy Verified 02/28/23 09:25 sertraline Allergy Verified 02/28/23 09:25 ziprasidone [From Geodon] Allergy Other (See Verified 02/28/23 09:25 Comment) aripiprazole [From Abilify] AdvReac Intermediate INVOLUNTARY Verified 02/28/23 09:25 MUSCLE MOVEMENTS divalproex sodium AdvReac Intermediate INVOLUNTARY Verified 02/28/23 09:25 [From Depakote] MUSCLE MOVEMENTS mirtazapine AdvReac Intermediate INVOLUNTARY Verified 02/28/23 09:25 MUSCLE MOVEMENTS risperidone AdvReac Intermediate INVOLUNTARY Verified 02/28/23 09:25 MUSCLE MOVEMENTS benztropine mesylate AdvReac elevated Verified 02/28/23 09:25 [From Cogentin] blood sugars enviornmental Allergy Mild Wheezing Uncoded 02/28/23 09:25 General Stated Complaint: Chest Pain CARLOS: 3 Review of Systems All systems reviewed & are unremarkable except as noted in HPI and below Constitutional Constitutional: Reports as per HPI and Reports system reviewed and no additional complaints, except as documented Eyes Eyes: Reports as per HPI and Reports system reviewed and no additional complaints, except as documented ENT Ears, Nose, Mouth, and Throat: Reports system reviewed and no additional complaints, except as documented and Reports as per HPI Cardiovascular Cardiovascular: Reports as per HPI and Reports system reviewed and no additional complaints, except as documented Respiratory Respiratory: Reports as per HPI and Reports system reviewed and no additional complaints, except as documented Gastrointestinal Gastrointestinal: Reports as per HPI Genitourinary Genitourinary: Reports system reviewed and no additional complaints, except as documented Musculoskeletal Musculoskeletal: Reports system reviewed and no additional complaints, except as documented Neurologic Neurologic: Reports system reviewed and no additional complaints, except as documented Psychiatric Psychiatric: Reports system reviewed and no additional complaints, except as documented Endocrine Endocrine: Reports system reviewed and no additional complaints, except as documented PFSH All Active Problems (Updated 02/28/23 @ 10:45 by Jose Cullen MD) Schizoaffective disorder (Acute 09/07/14) Rebekah Mariscal [facility] 09/2014- [facility] inpatient Hypothyroidism (acquired) (Acute 09/07/14) Hypercholesterolemia (Chronic 09/07/14) pt insists on lipitor 80 mg due to family hx GERD (gastroesophageal reflux disease) (Acute 09/07/14) Diabetes mellitus type 2 in obese (Acute 09/09/14) Depression (Acute 10/02/14) Left-sided chest wall pain (Acute) Hypertension (Chronic) pt requests brand name Tenormin vs atenolol 04/02/18 Chest pain (Acute) Chronic headache (Acute) Migraine headache without aura (Acute) Migraine (Chronic) Obesity (Chronic) BMI 52 Poor dentition (Acute) Tobacco use disorder (Chronic) started 2013 1.5 ppd, pipe 1-7/week, QUIT LATE OCT 2021 Allergic rhinitis (Chronic) lortadine Hiatal hernia (Chronic) protonix not effective, nexium works better 02/12/18 Anemia (Chronic) Broken teeth (Chronic) Drug-seeking behavior (Chronic ~09/20/21) Requests Ritalin from providers Medication overuse headache (Acute) Chest pain (Acute) Acute hyperglycemia (Acute) Chest pain (Acute) Atypical chest pain (Acute) Medical History Anxiety Dental caries Hyperlipidemia Mitral valve prolapse Peripheral neuropathy Trigeminal neuralgia Surgical History No significant past surgical history Family History Father Heart disease [place] Social History Smoking/Tobacco Use Status: Current every day Tobacco Type: cigarettes, pipe Years: 8 Other: States equivalent to 1.5 packs cigarettes and cigars Smoking risk assessment performed?: Yes Alcohol Intake: never Drug use: Never Substance use type: does not use Adopted: No Caregiver/Support person: No Foster care: No Household members: none Housing: apartment Number of Children: 2 number of grandchildren: 1 Communication Needs: Corrective Lenses Education Level: college Do you need help understanding health information?: Always current occupation: Unemployed/Leave of absence Sexually active: No Do you think of yourself as: Decline to provide Current gender identity: male What type of physical activity do you participate in: other Details: weight lifting Frequency: 3-4 times per week Magalie/Restorationism: Anabaptism Seatbelt use: always Drive intox or ride w/intox 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 Exam Const General: cooperative, healthy appearing, comfortable and no acute distress HENMT Head: normal to inspection, normocephalic and atraumatic Eyes Conjunctivae: conjunctivae normal Sclera: sclerae normal Cornea: corneas normal Pupils: PERRL EOM: EOM intact bilaterally Neck Neck: normal visual inspection Chest Chest: normal inspection of the chest Resp Effort & Inspection: normal respiratory effort and able to speak in complete sentences Cardio Jugular venous pressure: no JVD Palpation: normal PMI Rate: regular rate Rhythm: regular rhythm GI Inspection: normal to inspection Back/Spine/Pelvis Back: no CVA tenderness Skin General skin exam: no rashes or lesions noted Neuro General: patient alert, patient awake and patient oriented x3 Cranial Nerves: CN's II-XI intact bilaterally Cognition: normal cognition Extrem General: normal to inspection and full ROM Psych Appearance: grossly normal Speech and Movement: speech and movement normal Mood: congruent mood Thought Process: normal Insight: fair Course Vital Signs Vital signs: Vital Signs Temperature 36.5 C 02/28/23 09:23 Pulse 74 02/28/23 09:23 Respiratory Rate 18 02/28/23 09:23 Blood Pressure 143/71 H 02/28/23 09:23 Pulse Oximetry 97 02/28/23 09:23 Temperature 36.5 C 02/28/23 09:23 Temperature Source Tympanic 02/28/23 09:23 Pulse 74 02/28/23 09:23 Respiratory Rate 18 02/28/23 09:24 Respiratory Effort Normal, Non-Labored 02/28/23 09:24 Respiratory Depth Normal 02/28/23 09:24 Respiratory Pattern Normal 02/28/23 09:24 Blood Pressure 143/71 H 02/28/23 09:23 Pulse Oximetry 97 02/28/23 09:23 Oxygen Delivery Method Room Air 02/28/23 09:23 Oxygen Flow Rate 0 02/28/23 09:23
--- NOTE | 2023-02-28 09:45 | DI.RAD_ITS ---
Exam(s) XR CHEST 2V PA LATERAL EXAM: XR CHEST 2V PA LATERAL CLINICAL HISTORY: chest pain TECHNIQUE: 2D digital imaging was performed. COMPARISON: CR,XR XR CHEST 2V PA LATERAL from 02/19/2023 FINDINGS: HEART: Normal size. Aorta: Not dilated. PULMONARY VASCULATURE: Normal. LUNGS: Clear. PLEURAL SPACE: No pleural effusion or pneumothorax. BONE:Unremarkable for age. IMPRESSION: No acute abnormality. DATA REPOSITORY: RADIATION DOSE DELIVERED:
[2023-02-28 10:35] LABS: Troponin I < 50 ng/L (<or=60)
[2023-02-28 10:51] VITALS: BP 142/82; PULSE 66; RESP 15; O2SAT 98
== END 2023-02-28 11:07 | disposition home or self-care (01) ==
PROVIDERS: Emergency Provider Emergency Medicine Emergency Medical Services; PCP Family Medicine
DX: R07.89 Other chest pain (principal); E11.42 Type 2 diabetes mellitus with diabetic polyneuropathy; Z79.82 Long term (current) use of aspirin; Z79.84 Long term (current) use of oral hypoglycemic drugs
CPT/HCPCS: 36415; 93005; 99283; 71046; 84484; 93010

== ENCOUNTER 2023-03-04 08:10 | Emergency (ER) | payer MEDICAID, SELFPAY ==
[2023-03-04] VITALS (43 sets, daily range): BP systolic 110–162; BP diastolic 38–77; PULSE 62–75; RESP 14–24; TEMP 36.3; O2SAT 92–100
--- NOTE | 2023-03-04 08:00 | RT.EKG_ITS ---
APPROVED REPORT Exam: Resting ECG Reason for Exam: chest pain Patient Location: E HR:74 bpm ECG Measurements Heart Rate 74 AXIS MO 183 P 34 QRSd 103 QRS 20 QT 423 T 37 QTc 468 Conclusion Sinus rhythm...normal P axis, V-rate 60- 99 Normal sinus rhythm at a rate of 74 with interventricular conduction delay and a QRS of 103 ms. Norm al axis. MO and QTc is within normal limits. T wave flattening in lead III similar to prior. Prior dated last week. No acute injury pattern.
--- NOTE | 2023-03-04 08:15 | ED.GENADUL_ITS ---
Discharge Plan Disposition Patient Disposition: Home Condition: Stable Discharge Details Clinical Impression: Atypical chest pain Primary Care Provider: Brandon Foster ED Provider: Karlos Vasquez Home Meds and New Rx's Prescriptions: Continued Nurtec ODT 75 mg tablet,disintegrating 75 mg PO ONCE PRN (Reason: migraine headache) Qty: 10 3RF Rx Instructions: As a single dose. No more than one dose in 24 hours. chlorhexidine gluconate [Peridex] 0.12 % mouthwash 15 ml mucous membrane BID Qty: 473 5RF Rx Instructions: rinse and spit twice a day Emgality Pen 120 mg/mL pen injector 120 mg subcut QMONTH Qty: 1 11RF sumatriptan succinate 100 mg tablet See Rx Instructions PO .COMPLEX Qty: 9 5RF Rx Instructions: take 1 tab at onset of headache; if no relief, may repeat 1 tab after at least 2 hrs; max = 2 tabs/24 hrs PO Claritin Liqui-Gel 10 MG capsule 1 cap PO DAILY Qty: 90 prochlorperazine maleate 10 mg tablet See Rx Instructions .ROUTE .COMPLEX Qty: 20 2RF Dose Instruction: TAKE 1 TABLET BY MOUTH EVERY 8 HOURS NEEDED FOR NAUSEA AND VOMITING, HEADACHE Rx Instructions: TAKE 1 TABLET BY MOUTH EVERY 8 HOURS NEEDED FOR NAUSEA AND VOMITING, HEADACHE multivitamin Tablet 1 tab PO DAILY vitamin A 10,000 unit Capsule 10,000 unit PO DAILY metformin 500 mg tablet 1 tab PO BID omeprazole 20 mg capsule,delayed release(DR/EC) 40 mg PO DAILY Nurtec ODT 75 mg tablet,disintegrating 75 mg PO PRN PRN Patient Comments: Take 1 tablet by mouth once a day as needed for migraine clonazepam 0.5 mg tablet See Rx Instructions .ROUTE .COMPLEX Rx Instructions: 1 tab in AM, 1 tab at Noon and 2 tab QHS benztropine 0.5 MG tablet 0.5 mg PO BID aspirin,buffd-calcium carb-mag 325 MG tablet 325 mg PO DAILY Risperdal Consta 25 mg/2 mL suspension,extended rel recon 25 mg IM USEASDIRECTD Patient Comments: INJECT ONE SYRINGE INTRAMUSCULARLY ONCE EVERY TWO WEEKS Rx Instructions: every 2 weeks lactulose 10 gram/15 mL solution 20 g PO DIRECTED PRN Patient Comments: TAKE ONE TO TWO TABLESPOONS BY MOUTH NEEDED WHEN 3 DAYS PASS WITHOUT BOWEL MOVEMENT lorazepam 1 mg tablet 1 mg PO QID Patient Comments: no longer taking 03/04/2023 CT Rx Instructions: 01/03/21 1 mg in am and 2 mg at hs Reports 1 mg in am, 1 mg in afternoon, 2 mg at hs albuterol sulfate 90 mcg/actuation aerosol powdr breath activated 2 inh IH Q6H PRN (Reason: shortness of breath or wheezing) Qty: 1 0RF Nu-Mag 71.5 mg tablet,delayed release (DR/EC) 71.5 mg PO DAILY Qty: 20 0RF atenolol 50 mg tablet 75 mg PO DAILY Rx Instructions: To take with 25mg dose for TDD 75mg daily simvastatin 40 mg tablet 40 mg PO DAILY Discharge Instructions Instructions: Chest Pain (ED) Additional Instructions: Please continue to take your medications as prescribed and monitor your symptoms. It is recommended given that you have had multiple emergency dep artment visits to follow-up with your primary care provider for discussion of any medication changes that may affect your symptoms. Referrals: Brandon Foster [Primary Care Provider] - Medical Decision Making Patient presenting to the emergency department for chief complaint of chest pain. Patient arriving via EMS. Patient well-known to emergency department with multiple visits to the ED for similar complaint. Patient has past medical history of schizoaffective disorder, hypertension hypercholesterolemia, GERD, diabetes, hypertension, anxiety, obesity. Patient states this morning approximately 90 minutes prior to arrival he was sitting listening to music and started having some chest pain that he describes as squeezing with radiation down his left arm. Patient also does state some heartburn but denies all other symptoms. Physical exam is unremarkable and patient has normal cardiac and respiratory exam, shows no acute signs of distress, is resting comfortably in bed when I arrived in the room. Given patient's risk factors will check cardiac troponins but have higher suspicion that this is related to patient's anxiety given multiple negative cardiac work-ups recently. Pending results we will give patient aspirin and Mylanta but will hold off on any other treatments at this time. At this time patient is not extremely hypertensive and is not complaining of tearing or ripping pain radiating into his back so I doubt AAA, patient not hypoxic or tachycardic and not complaining of shortness of breath so doubt PE. No evidence of Boerhaave's, normal skin assessment so do not feel this is zoster. Please see physician interpretation for full interpretation of EKG but upon my review patient is in sinus rhythm with no significant change from EKG dated 4 days ago. We will continue to monitor Labs reviewed and CBC shows a chronic but stable anemia, reviewed CMP and glucose is elevated at 199, AST to level 11, albumin of 3.2. Otherwise all other CMP findings within normal range. Magnesium is low at 1.5 which we will orally replete. Initial troponin is negative. We will give patient magnesium and reassess and perform delta troponin given short timeframe cardiac complaint. Pending delta troponin did reassess patient and he stated improvement of his overall symptoms which I feel is reassuring. We will continue with delta troponin given patient's risk factors and timeframe of onset of chest pain at rest. Reviewed second troponin which is also nondetectable and considered negative. Will discharge patient with follow-up to primary care for further discussion of ongoing atypical chest pain with multiple negative cardiac work-ups. After discussion of diagnosis and plan of care patient has no further needs, questions, or concerns and states clear understanding to return to the emergency department for any worsening symptoms. This documentation was generated using [email or web address] system, please disregard any oddities of phrase or misspellings. Medical Records Medical records reviewed: Yes I reviewed the patient's medical records. Medical records narrative: Reviewed previous EKG and medical record from last visit to emergency department Lab Data Lab results reviewed: Yes I reviewed the patient's lab results. HPI General Mode of arrival: EMS . Date/Time Provider Initiated Documentation: 03/04/23 08:12 . Limitations to Documentation: no limitations . Information obtained by: patient, EMS and RN notes reviewed . History of Present Illness 57 year old M presents to the emergency department with the chief complaint of Chest pain , described as moderate, with intensity rated at 8. Quality is described as aching, and is localized to the chest. Patient extremity. Patient started experiencing this minute(s) (90) and it has been constant. No relieving factors improve symptom(s), No exacerbating factors reported . Patient notes no other symptoms.. Patient did receive the following treatments prior to arrival, NSAID Related Data Home Medications Medication Instructions Recorded Confirmed loratadine 10 mg capsule (Claritin 1 cap PO DAILY #90 tabs 12/16/14 03/04/23 Liqui-Gel) aspirin,buffered (calcium 325 mg PO DAILY 11/18/16 03/04/23 carbonate-magnesium) 325 mg tablet benztropine 0.5 mg tablet 0.5 mg PO BID 11/18/16 03/04/23 lactulose 10 gram/15 mL oral 20 g PO DIRECTED PRN 10/03/20 03/04/23 solution risperidone microspheres 25 mg/2 25 mg IM USEASDIRECTD 10/03/20 03/04/23 mL intramuscular susp,ext release (Risperdal Consta) albuterol sulfate 90 mcg/actuation 2 inh inhalation Q6H PRN shortness 12/15/20 03/04/23 breath activated powder inhaler of breath or wheezing #1 ea multivitamin 1 tab PO DAILY 01/26/21 03/04/23 vitamin A 3,000 mcg (10,000 unit) 10,000 unit PO DAILY 01/26/21 03/04/23 capsule lorazepam 1 mg tablet 1 mg PO QID 07/05/21 02/28/23 chlorhexidine gluconate 0.12 % 15 ml mucous membrane BID dental 09/06/21 03/04/23 mouthwash (Peridex) problem #473 mL metformin 500 mg tablet 1 tab PO BID 03/18/22 03/04/23 omeprazole 20 mg capsule,delayed 40 mg PO DAILY 03/18/22 03/04/23 release galcanezumab-gnlm 120 mg/mL 120 mg subcut QMONTH #1 mL 04/05/22 03/04/23 subcutaneous pen injector (Emgality Pen) sumatriptan succinate 100 mg tablet See Rx Instructions PO .COMPLEX #9 06/28/22 03/04/23 tabs magnesium chloride 71.5 mg 71.5 mg PO DAILY #20 tabs 09/05/22 03/04/23 (magnesium chloride) tablet,delayed release (Nu-Mag) atenolol 50 mg tablet 75 mg PO DAILY 09/26/22 03/04/23 simvastatin 40 mg tablet 40 mg PO DAILY 12/25/22 03/04/23 prochlorperazine maleate 10 mg See Rx Instructions .Route 01/08/23 03/04/23 tablet .COMPLEX #20 tabs rimegepant 75 mg disintegrating 75 mg PO ONCE PRN migraine 01/17/23 03/04/23 tablet (Nurtec ODT) headache #10 tabs rimegepant 75 mg disintegrating 75 mg PO PRN PRN 02/06/23 03/04/23 tablet (Nurtec ODT) clonazepam 0.5 mg tablet See Rx Instructions .Route .COMPLEX 03/04/23 03/04/23 Previous Rx's Medication Instructions Recorded albuterol sulfate 90 mcg/actuation 2 inh inhalation Q6H PRN shortness 12/15/20 breath activated powder inhaler of breath or wheezing #1 ea chlorhexidine gluconate 0.12 % 15 ml mucous membrane BID dental 09/06/21 mouthwash (Peridex) problem #473 mL galcanezumab-gnlm 120 mg/mL 120 mg subcut QMONTH #1 mL 04/05/22 subcutaneous pen injector (Emgality Pen) sumatriptan succinate 100 mg tablet See Rx Instructions PO .COMPLEX #9 06/28/22 tabs magnesium chloride 71.5 mg 71.5 mg PO DAILY #20 tabs 09/05/22 (magnesium chloride) tablet,delayed release (Nu-Mag) prochlorperazine maleate 10 mg See Rx Instructions .Route 01/08/23 tablet .COMPLEX #20 tabs rimegepant 75 mg disintegrating 75 mg PO ONCE PRN migraine 01/17/23 tablet (Nurtec ODT) headache #10 tabs Allergies Allergy/AdvReac Type Severity Reaction Status Date / Time buspirone Allergy Verified 03/04/23 08:19 paliperidone Allergy Verified 03/04/23 08:19 paroxetine HCl [From Paxil] Allergy Verified 03/04/23 08:19 sertraline Allergy Verified 03/04/23 08:19 ziprasidone [From Geodon] Allergy Other (See Verified 03/04/23 08:19 Comment) aripiprazole [From Abilify] AdvReac Intermediate INVOLUNTARY Verified 03/04/23 08:19 MUSCLE MOVEMENTS divalproex sodium AdvReac Intermediate INVOLUNTARY Verified 03/04/23 08:19 [From Depakote] MUSCLE MOVEMENTS mirtazapine AdvReac Intermediate INVOLUNTARY Verified 03/04/23 08:19 MUSCLE MOVEMENTS risperidone AdvReac Intermediate INVOLUNTARY Verified 03/04/23 08:19 MUSCLE MOVEMENTS benztropine mesylate AdvReac elevated Verified 03/04/23 08:19 [From Cogentin] blood sugars enviornmental Allergy Mild Wheezing Uncoded 03/04/23 08:19 General Stated Complaint: Chest Pain CARLOS: 3 Review of Systems Constitutional Constitutional: Denies chills, Denies fever(s) and Denies malaise Cardiovascular Cardiovascular: Reports as per HPI, Reports chest pain, Denies chest pain with activity, Denies syncope, Denies irregular heart rhythm, Denies palpitations and Denies dyspnea Respiratory Respiratory: Denies cough, Denies hemoptysis and Denies dyspnea Gastrointestinal Gastrointestinal: Denies abdominal pain, Denies nausea and Denies vomiting Neurologic Neurologic: Denies syncope Psychiatric Psychiatric: Denies anxiety Endocrine Endocrine: Denies cold intolerance, Denies heat intolerance and Denies palpitations [facility] All Active Problems (Updated 03/04/23 @ 12:13 by Karlos Vasquez NP) Schizoaffective disorder (Acute 09/07/14) FREDDIE Thakkar 09/2014- [facility] inpatient Hypothyroidism (acquired) (Acute 09/07/14) Hypercholesterolemia (Chronic 09/07/14) pt insists on lipitor 80 mg due to family hx GERD (gastroesophageal reflux disease) (Acute 09/07/14) Diabetes mellitus type 2 in obese (Acute 09/09/14) Depression (Acute 10/02/14) Left-sided chest wall pain (Acute) Hypertension (Chronic) pt requests brand name Tenormin vs atenolol 04/02/18 Chest pain (Acute) Chronic headache (Acute) Migraine headache without aura (Acute) Migraine (Chronic) Obesity (Chronic) BMI 52 Poor dentition (Acute) Tobacco use disorder (Chronic) started 2013 1.5 ppd, pipe 1-7/week, QUIT LATE OCT 2021 Allergic rhinitis (Chronic) lortadine Hiatal hernia (Chronic) protonix not effective, nexium works better 02/12/18 Anemia (Chronic) Broken teeth (Chronic) Drug-seeking behavior (Chronic ~09/20/21) Requests Ritalin from providers Medication overuse headache (Acute) Chest pain (Acute) Acute hyperglycemia (Acute) Chest pain (Acute) Atypical chest pain (Acute) Medical History Anxiety Dental caries Hyperlipidemia Mitral valve prolapse Peripheral neuropathy Trigeminal neuralgia Surgical History No significant past surgical history Family History Father Heart disease [place] Social History Smoking/Tobacco Use Status: Current every day Tobacco Type: cigarettes, pipe Years: 8 Other: States equivalent to 1.5 packs cigarettes and cigars Smoking risk assessment performed?: Yes Alcohol Intake: never Drug use: Never Substance use type: does not use Adopted: No Caregiver/Support person: No Foster care: No Household members: none Housing: apartment Number of Children: 2 number of grandchildren: 1 Communication Needs: Corrective Lenses Education Level: college Do you need help understanding health information?: Always current occupation: Unemployed/Leave of absence Sexually active: No Do you think of yourself as: Decline to provide Current gender identity: male What type of physical activity do you participate in: other Details: weight lifting Frequency: 3-4 times per week Magalie/Baptist: Yazidi Seatbelt use: always Drive intox or ride w/intox tractor 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 Exam Const General: cooperative, healthy appearing, comfortable, no acute distress, not diaphoretic and not ill appearing Nutritional Appearance: average body habitus Orientation: alert, awake and oriented x3 Limitations: mental status not altered Neck Neck: normal visual inspection, full ROM, trachea midline, supple and no anterior neck swelling Thyroid: thyroid normal Carotids: normal carotid upstroke and no bruits Chest Chest: normal inspection of the chest Resp Effort & Inspection: normal respiratory effort and able to speak in complete sentences Auscultation: clear to auscultation bilaterally Cardio Jugular venous pressure: no JVD Palpation: normal PMI Rate: regular rate Rhythm: regular rhythm Heart Sounds: S1 normal, S2 normal, no click, no gallops, no murmurs and no rubs Bruits: no abdominal aortic bruits and no carotid bruits Pulses: radial pulses present bilaterally 2+ GI Inspection: normal to inspection Palpation: soft, no aortic enlargement, no pulsatile masses and nontender Auscultation: normal bowel sounds Skin General skin exam: no rashes or lesions noted Neuro General: patient alert, patient awake, patient oriented x3, tone normal and moves all extremities
[2023-03-04] MEDS: Mylanta Suspension 30 ML CUP PO (08:37)
[2023-03-04] MEDS: Aspirin 81 MG CHEW 324 MG CH (08:37)
[2023-03-04 08:52] LABS: Abs Immature Grans 0.03 10^3/uL (0.0-0.06); Absolute Basophil Count 0.02 10^3/uL (0.0-0.2); Absolute Eosinophil Count 0.32 10^3/uL (0.0-0.7); Absolute Lymphocyte Count 2.09 10^3/uL (1.2-3.4); Absolute Monocyte Count 0.51 10^3/uL (0.1-0.8); Basophils % 0.3; Eosinophils % 4.4; HCT 33.4 % (40.0-50.0); HGB 11.4 g/dL (13.5-17.5); Immature Grans % 0.4; Lymphocytes % 28.7; MCH 30.1 pg (27.0-33.0); MCHC 34.1 % (32.0-36.0); MCV 88 fL (80-95); MPV 8.3 fL (8.0-11.0); Neutrophils % 59.2; Platelet Count 144 10^3/uL (130-400); RBC 3.79 10^6/uL (4.36-5.78); RDW-SD 38.5 fL; WBC 7.27 10^3/uL (4.4-10.8)
[2023-03-04 09:10] LABS: ALT 26 U/L (16-63); AST 11 U/L (15-37); Albumin 3.2 g/dL (3.4-5.0); Alkaline Phosphatase 80 U/L (46-116); Anion Gap 4.6 mmol/L (3-11); BUN 9 mg/dL (7-18); Bilirubin, Total 0.3 mg/dL (0.2-1.0); CO2 31.4 mmol/L (21.0-32.0); CREATININE 0.9 mg/dL (0.70-1.30); Calcium 8.6 mg/dL (8.5-10.1); Chloride 101 mmol/L (98-107); Estimated GFR 99.62 (mL/min/1.73m2); Glucose 199 mg/dL (74-106); Magnesium 1.5 mg/dL (1.8-2.4); Potassium 4.1 mmol/L (3.5-5.1); Sodium 137 mmol/L (136-145); Total Protein 7.3 g/dL (6.4-8.2); Troponin I < 50 ng/L (<or=60)
[2023-03-04] MEDS: Magnesium Oxide 400 MG TAB PO (09:32)
[2023-03-04 12:08] LABS: Troponin I < 50 ng/L (<or=60)
--- NOTE | 2023-03-04 12:13 | NUR.NOTE ---
Nursing Note: Referral given to Care Management to PCP for chest pain, [facility] [place] ED visits, in 1 week.
--- NOTE | 2023-03-05 10:33 | CMPROGNOTE_ITS ---
- If Service Date Differs Date of service: 03/05/23 Time of Service: 10:33 Care Management Progress Note Made follow up appointment for [facility] with his PCP, Brandon Foster in [place], [place] for Sunday03/07/23 at 11:30 am. CM called [facility], left message. requested confirmation call back.
== END 2023-03-04 12:26 | disposition home or self-care (01) ==
PROVIDERS: Emergency Provider Nurse Practitioner Family; PCP Family Medicine
DX: R07.89 Other chest pain (principal); I10 Essential (primary) hypertension; E11.9 Type 2 diabetes mellitus without complications; R12 Heartburn; D64.9 Anemia, unspecified; R73.9 Hyperglycemia, unspecified; E83.42 Hypomagnesemia
CPT/HCPCS: 36415; 80053; 93005; 99283; 83735; 84484; 85025; 93010

== ENCOUNTER 2023-03-06 04:28 | Emergency (ER) | payer MEDICAID, SELFPAY ==
[2023-03-06] VITALS (63 sets, daily range): BP systolic 108–146; BP diastolic 54–101; PULSE 58–85; RESP 11–21; TEMP 36.7–37; O2SAT 94–100
--- NOTE | 2023-03-06 04:15 | RT.EKG_ITS ---
APPROVED REPORT Exam: Resting ECG Reason for Exam: chest pain Patient Location: E HR:68 bpm ECG Measurements Heart Rate 68 AXIS VA 173 P 33 QRSd 103 QRS 8 QT 442 T 57 QTc 470 Conclusion Sinus rhythm...normal P axis, V-rate 60- 99
--- NOTE | 2023-03-06 04:49 | W.ED.GENAD ---
Discharge Plan Disposition Patient Disposition: Home Condition: Stable Discharge Details Clinical Impression: Chest pain Primary Care Provider: Brandon Foster ED Provider: Doc Ramos Home Meds and New Rx's Prescriptions: Continued Nurtec ODT 75 mg tablet,disintegrating 75 mg PO ONCE PRN (Reason: migraine headache) Qty: 10 3RF Rx Instructions: As a single dose. No more than one dose in 24 hours. chlorhexidine gluconate [Peridex] 0.12 % mouthwash 15 ml mucous membrane BID Qty: 473 5RF Rx Instructions: rinse and spit twice a day Emgality Pen 120 mg/mL pen injector 120 mg subcut QMONTH Qty: 1 11RF sumatriptan succinate 100 mg tablet See Rx Instructions PO .COMPLEX Qty: 9 5RF Rx Instructions: take 1 tab at onset of headache; if no relief, may repeat 1 tab after at least 2 hrs; max = 2 tabs/24 hrs PO Claritin Liqui-Gel 10 MG capsule 1 cap PO DAILY Qty: 90 prochlorperazine maleate 10 mg tablet See Rx Instructions .ROUTE .COMPLEX Qty: 20 2RF Dose Instruction: TAKE 1 TABLET BY MOUTH EVERY 8 HOURS NEEDED FOR NAUSEA AND VOMITING, HEADACHE Rx Instructions: TAKE 1 TABLET BY MOUTH EVERY 8 HOURS NEEDED FOR NAUSEA AND VOMITING, HEADACHE multivitamin Tablet 1 tab PO DAILY vitamin A 10,000 unit Capsule 10,000 unit PO DAILY metformin 500 mg tablet 1 tab PO BID omeprazole 20 mg capsule,delayed release(DR/EC) 40 mg PO DAILY Nurtec ODT 75 mg tablet,disintegrating 75 mg PO PRN PRN Patient Comments: Take 1 tablet by mouth once a day as needed for migraine clonazepam 0.5 mg tablet See Rx Instructions .ROUTE .COMPLEX Rx Instructions: 1 tab in AM, 1 tab at Noon and 2 tab QHS benztropine 0.5 MG tablet 0.5 mg PO BID aspirin,buffd-calcium carb-mag 325 MG tablet 325 mg PO DAILY Risperdal Consta 25 mg/2 mL suspension,extended rel recon 25 mg IM USEASDIRECTD Patient Comments: INJECT ONE SYRINGE INTRAMUSCULARLY ONCE EVERY TWO WEEKS Rx Instructions: every 2 weeks lactulose 10 gram/15 mL solution 20 g PO DIRECTED PRN Patient Comments: TAKE ONE TO TWO TABLESPOONS BY MOUTH NEEDED WHEN 3 DAYS PASS WITHOUT BOWEL MOVEMENT lorazepam 1 mg tablet 1 mg PO QID Patient Comments: no longer taking 03/04/2023 CT Rx Instructions: 01/03/21 1 mg in am and 2 mg at hs Reports 1 mg in am, 1 mg in afternoon, 2 mg at hs albuterol sulfate 90 mcg/actuation aerosol powdr breath activated 2 inh IH Q6H PRN (Reason: shortness of breath or wheezing) Qty: 1 0RF Nu-Mag 71.5 mg tablet,delayed release (DR/EC) 71.5 mg PO DAILY Qty: 20 0RF atenolol 50 mg tablet 75 mg PO DAILY Rx Instructions: To take with 25mg dose for TDD 75mg daily simvastatin 40 mg tablet 40 mg PO DAILY Discharge Instructions Additional Instructions: your ekg and blood work did not show concerning findings follow up with your primary care provider within 1 week if you feel more ill, have severe pain or persistent vomiting return to the emergency department Medical Decision Making 57 yo male with hx of schizoaffective disorder, dm, hld, htn, who has had numerous visits for chest pain with negative workups returns with ems with chest pain. He states he woke up early and was listening to music when he had an aching in his left chest that he took aleve for. He called ems and on arrival is pain free. He denies radiation of pain, diaphoresis, back pain, n/v. He has clear lungs, no murmurs, no calf tenderness and is in no distress speaking clearly during exam. Suspect atypical chest pain vs musculoskeletal chest pain given pain resolved with aleve, will check troponin, ekg unchanged. No tearing back pain to suggest dissection and no hypoxia/tachycardia and no evidence of dvt on exam. to suggest PE pt appears comfortable in no distress, labs unremarkable, will obtain delta troponin and if negative plan for d/c and pcp f/u Differential Diagnosis Differential Diagnosis: nstemi, chest wall pain, atypical chest pain Medical Records Medical records reviewed: Yes I reviewed the patient's medical records. Lab Data Lab results reviewed: Yes I reviewed the patient's lab results. ECG Data Attestation: I personally reviewed and interpreted this ECG (s) as follows: Prior ECG tracings: available for review Interpretation: sinus, rate of 68, pr 173, no acute ischemic findings HPI General Mode of arrival: EMS. Date/Time Provider Initiated Documentation: 03/06/23 04:37. Limitations to Documentation: no limitations. Information obtained by: patient. History of Present Illness 57 year old M presents to the emergency department with the chief complaint of chest pain, described as moderate, Quality is described as aching, and is localized to the chest. Patient started experiencing this hour(s) (1) and it has been now resolved. No relieving factors improve symptom(s), No exacerbating factors reported . Patient notes no other symptoms.; denies diaphoresis, fever/chills and shortness of breath. Patient did receive the following treatments prior to arrival, NSAID Related Data Home Medications Medication Instructions Recorded Confirmed loratadine 10 mg capsule (Claritin 1 cap PO DAILY #90 tabs 12/16/14 03/04/23 Liqui-Gel) aspirin,buffered (calcium 325 mg PO DAILY 11/18/16 03/04/23 carbonate-magnesium) 325 mg tablet benztropine 0.5 mg tablet 0.5 mg PO BID 11/18/16 03/04/23 lactulose 10 gram/15 mL oral 20 g PO DIRECTED PRN 10/03/20 03/04/23 solution risperidone microspheres 25 mg/2 25 mg IM USEASDIRECTD 10/03/20 03/04/23 mL intramuscular susp,ext release (Risperdal Consta) albuterol sulfate 90 mcg/actuation 2 inh inhalation Q6H PRN shortness 12/15/20 03/04/23 breath activated powder inhaler of breath or wheezing #1 ea multivitamin 1 tab PO DAILY 01/26/21 03/04/23 vitamin A 3,000 mcg (10,000 unit) 10,000 unit PO DAILY 01/26/21 03/04/23 capsule lorazepam 1 mg tablet 1 mg PO QID 07/05/21 02/28/23 chlorhexidine gluconate 0.12 % 15 ml mucous membrane BID dental 09/06/21 03/04/23 mouthwash (Peridex) problem #473 mL metformin 500 mg tablet 1 tab PO BID 03/18/22 03/04/23 omeprazole 20 mg capsule,delayed 40 mg PO DAILY 03/18/22 03/04/23 release galcanezumab-gnlm 120 mg/mL 120 mg subcut QMONTH #1 mL 04/05/22 03/04/23 subcutaneous pen injector (Emgality Pen) sumatriptan succinate 100 mg tablet See Rx Instructions PO .COMPLEX #9 06/28/22 03/04/23 tabs magnesium chloride 71.5 mg 71.5 mg PO DAILY #20 tabs 09/05/22 03/04/23 (magnesium chloride) tablet,delayed release (Nu-Mag) atenolol 50 mg tablet 75 mg PO DAILY 09/26/22 03/04/23 simvastatin 40 mg tablet 40 mg PO DAILY 12/25/22 03/04/23 prochlorperazine maleate 10 mg See Rx Instructions .Route 01/08/23 03/04/23 tablet .COMPLEX #20 tabs rimegepant 75 mg disintegrating 75 mg PO ONCE PRN migraine 01/17/23 03/04/23 tablet (Nurtec ODT) headache #10 tabs rimegepant 75 mg disintegrating 75 mg PO PRN PRN 02/06/23 03/04/23 tablet (Nurtec ODT) clonazepam 0.5 mg tablet See Rx Instructions .Route .COMPLEX 03/04/23 03/04/23 Previous Rx's Medication Instructions Recorded albuterol sulfate 90 mcg/actuation 2 inh inhalation Q6H PRN shortness 12/15/20 breath activated powder inhaler of breath or wheezing #1 ea chlorhexidine gluconate 0.12 % 15 ml mucous membrane BID dental 09/06/21 mouthwash (Peridex) problem #473 mL galcanezumab-gnlm 120 mg/mL 120 mg subcut QMONTH #1 mL 04/05/22 subcutaneous pen injector (Emgality Pen) sumatriptan succinate 100 mg tablet See Rx Instructions PO .COMPLEX #9 06/28/22 tabs magnesium chloride 71.5 mg 71.5 mg PO DAILY #20 tabs 09/05/22 (magnesium chloride) tablet,delayed release (Nu-Mag) prochlorperazine maleate 10 mg See Rx Instructions .Route 01/08/23 tablet .COMPLEX #20 tabs rimegepant 75 mg disintegrating 75 mg PO ONCE PRN migraine 01/17/23 tablet (Nurtec ODT) headache #10 tabs Allergies Allergy/AdvReac Type Severity Reaction Status Date / Time buspirone Allergy Verified 03/04/23 08:19 paliperidone Allergy Verified 03/04/23 08:19 paroxetine HCl [From Paxil] Allergy Verified 03/04/23 08:19 sertraline Allergy Verified 03/04/23 08:19 ziprasidone [From Geodon] Allergy Other (See Verified 03/04/23 08:19 Comment) aripiprazole [From Abilify] AdvReac Intermediate INVOLUNTARY Verified 03/04/23 08:19 MUSCLE MOVEMENTS divalproex sodium AdvReac Intermediate INVOLUNTARY Verified 03/04/23 08:19 [From Depakote] MUSCLE MOVEMENTS mirtazapine AdvReac Intermediate INVOLUNTARY Verified 03/04/23 08:19 MUSCLE MOVEMENTS risperidone AdvReac Intermediate INVOLUNTARY Verified 03/04/23 08:19 MUSCLE MOVEMENTS benztropine mesylate AdvReac elevated Verified 03/04/23 08:19 [From Cogentin] blood sugars enviornmental Allergy Mild Wheezing Uncoded 03/04/23 08:19 General Stated Complaint: Chest Pain CARLOS: 3 Review of Systems All systems reviewed & are unremarkable except as noted in HPI and below Constitutional Constitutional: Denies chills, Denies fever(s) and Denies weakness Cardiovascular Cardiovascular: Reports chest pain and Denies dyspnea Respiratory Respiratory: Denies cough and Denies dyspnea Gastrointestinal Gastrointestinal: Denies abdominal pain, Denies nausea and Denies vomiting Musculoskeletal Musculoskeletal: Denies joint swelling Neurologic Neurologic: Denies weakness Allergic/Immunologic Allergic/Immunologic: Denies urticaria PFSH All Active Problems (Updated 03/06/23 @ 05:59 by Doc Ramos MD) Schizoaffective disorder (Acute 09/07/14) Rebekah Mariscal [facility] 09/2014- [facility] inpatient Hypothyroidism (acquired) (Acute 09/07/14) Hypercholesterolemia (Chronic 09/07/14) pt insists on lipitor 80 mg due to family hx GERD (gastroesophageal reflux disease) (Acute 09/07/14) Diabetes mellitus type 2 in obese (Acute 09/09/14) Depression (Acute 10/02/14) Left-sided chest wall pain (Acute) Hypertension (Chronic) pt requests brand name Tenormin vs atenolol 04/02/18 Chest pain (Acute) Chronic headache (Acute) Migraine headache without aura (Acute) Migraine (Chronic) Obesity (Chronic) BMI 52 Poor dentition (Acute) Tobacco use disorder (Chronic) started 2013 1.5 ppd, pipe 1-7/week, QUIT LATE OCT 2021 Allergic rhinitis (Chronic) lortadine Hiatal hernia (Chronic) protonix not effective, nexium works better 02/12/18 Anemia (Chronic) Broken teeth (Chronic) Drug-seeking behavior (Chronic ~09/20/21) Requests Ritalin from providers Medication overuse headache (Acute) Chest pain (Acute) Acute hyperglycemia (Acute) Chest pain (Acute) Atypical chest pain (Acute) Medical History Anxiety Dental caries Hyperlipidemia Mitral valve prolapse Peripheral neuropathy Trigeminal neuralgia Surgical History No significant past surgical history Family History Father Heart disease [place] Social History Smoking/Tobacco Use Status: Current every day Tobacco Type: cigarettes, pipe Years: 8 Other: States equivalent to 1.5 packs cigarettes and cigars Smoking risk assessment performed?: Yes Alcohol Intake: never Drug use: Never Substance use type: does not use Adopted: No Caregiver/Support person: No Foster care: No Household members: none Housing: apartment Number of Children: 2 number of grandchildren: 1 Communication Needs: Corrective Lenses Education Level: college Do you need help understanding health information?: Always current occupation: Unemployed/Leave of absence Sexually active: No Do you think of yourself as: Decline to provide Current gender identity: male What type of physical activity do you participate in: other Details: weight lifting Frequency: 3-4 times per week Magalie/Voodoo: Anglican Seatbelt use: always Drive intox or ride w/intox 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 Exam Const General: no acute distress Orientation: alert HENMT Head: normal to inspection Ears: external ears normal General nose exam: external nose normal Mouth: moist mucous membranes Eyes General: appearance normal, both eyes and all related structures Neck Neck: normal visual inspection Chest Chest: normal inspection of the chest Resp Effort & Inspection: normal respiratory effort and able to speak in complete sentences Auscultation: clear to auscultation bilaterally Cardio Jugular venous pressure: no JVD Rate: regular rate Heart Sounds: no murmurs Skin General skin exam: no rashes or lesions noted Neuro General: patient alert and patient oriented x3 Extrem General: normal to inspection Psych Mental Status: mental status grossly normal Course Vital Signs Vital signs: Vital Signs Temperature 36.7 C 03/06/23 04:31 Pulse 68 03/06/23 04:31 Respiratory Rate 17 03/06/23 04:31 Blood Pressure 139/66 03/06/23 04:31 Pulse Oximetry 97 03/06/23 04:31 Temperature 36.7 C 03/06/23 04:31 Temperature Source Tympanic 03/06/23 04:31 Pulse 66 03/06/23 04:41 Pulse 67 03/06/23 04:41 Respiratory Rate 16 03/06/23 04:41 Respiratory Effort Normal, Non-Labored 03/06/23 04:36 Respiratory Depth Normal 03/06/23 04:36 Respiratory Pattern Normal 03/06/23 04:36 Blood Pressure 139/66 03/06/23 04:41 Blood Pressure Mean 83 03/06/23 04:41 Pulse Oximetry 96 03/06/23 04:41 Oxygen Delivery Method Room Air 03/06/23 04:31 Oxygen Flow Rate 0 03/06/23 04:31 Pain Level 9 03/06/23 04:31
[2023-03-06 04:54] LABS: Abs Immature Grans 0.04 10^3/uL (0.0-0.06); Absolute Basophil Count 0.03 10^3/uL (0.0-0.2); Absolute Eosinophil Count 0.44 10^3/uL (0.0-0.7); Absolute Lymphocyte Count 2.27 10^3/uL (1.2-3.4); Absolute Monocyte Count 0.54 10^3/uL (0.1-0.8); Absolute Neutrophil Count 5.43 10^3/uL (1.2-6.7); Basophils % 0.3; HCT 33.3 % (40.0-50.0); HGB 11.5 g/dL (13.5-17.5); Immature Grans % 0.5; Lymphocytes % 25.9; MCH 30.3 pg (27.0-33.0); MCHC 34.5 % (32.0-36.0); MCV 88 fL (80-95); MPV 8.4 fL (8.0-11.0); Monocytes % 6.2; Neutrophils % 62.1; Platelet Count 159 10^3/uL (130-400); RBC 3.79 10^6/uL (4.36-5.78); RDW-SD 38.9 fL; WBC 8.75 10^3/uL (4.4-10.8)
[2023-03-06 05:14] LABS: ALT 28 U/L (16-63); AST 13 U/L (15-37); Albumin 3.4 g/dL (3.4-5.0); Alkaline Phosphatase 90 U/L (46-116); Anion Gap 8.2 mmol/L (3-11); BUN 8 mg/dL (7-18); Bilirubin, Total 0.4 mg/dL (0.2-1.0); CO2 30.8 mmol/L (21.0-32.0); CREATININE 0.9 mg/dL (0.70-1.30); Calcium 8.4 mg/dL (8.5-10.1); Chloride 97 mmol/L (98-107); Estimated GFR 99.62 (mL/min/1.73m2); Glucose 150 mg/dL (74-106); Sodium 136 mmol/L (136-145); Total Protein 7.7 g/dL (6.4-8.2); Troponin I < 50 ng/L (<or=60)
[2023-03-06] MEDS: Acetaminophen 325 MG TAB 650 MG PO (05:41)
[2023-03-06 08:38] LABS: Troponin I < 50 ng/L (<or=60)
--- NOTE | 2023-03-06 10:24 | W.EDPROG ---
Date of service: 03/06/23 Time of Service: 08:00 Medical Decision Making 0800 --please see Dr. Ramos's note for initial presentation, exam and plan. Case endorsed to follow-up on repeat troponin and if negative will discharge to home. 1000 --repeat troponin negative. Patient feels comfortable going home. He was assessed by [facility] in the ED as a referral had been placed recently for his multiple visits to the ED for chest pain and similar complaints to minimize ED visits and assist with outpatient management. Review of records notes that patient has still not scheduled an outpatient stress test which had been ordered 1 month ago. He is advised to schedule this as soon as possible. We will place on care management's list to arrange for a follow-up appointment with the primary care doctor and to devise a care plan to minimize ED visits for chronic complaints if possible. Usual and customary return precautions given prior to discharge. Discussed with Renetta from [facility] after patient discharge --she states that patient had requested to go to a care bed at some point. She will place referrals to see if possible to make this arrangement from the critical access hospital. Medical Records Medical records reviewed: Yes I reviewed the patient's medical records. Medical records narrative: 02/28/23 - [facility] XR CHEST 2V PA ? LATERAL CLINICAL HISTORY:? chest pain TECHNIQUE:? 2D digital imaging was performed. COMPARISON:? CR,XR XR CHEST 2V PA ? LATERAL from 02/19/2023 FINDINGS: HEART: Normal size.? Aorta: Not dilated. PULMONARY VASCULATURE: Normal. LUNGS: Clear. ? PLEURAL SPACE: No pleural effusion or pneumothorax. BONE:Unremarkable for age.? IMPRESSION: No acute abnormality.? 01/06/23 - [facility] ?CT CHEST PE CTA CLINICAL HISTORY: ? Chest pain, shortness of breath. ? TECHNIQUE:? Imaging Protocol: CT angiography of the chest was performed using pulmonary embolus protocol.? Multi planar reconstructions were performed. CONTRAST MATERIAL:? Intravenous: Omnipaque 350 Contrast volume: 100 cc COMPARISON:? CT CT ABDOMEN ? PELVIS W from 12/19/2022 FINDINGS: CHEST: PULMONARY ARTERIES: There are no intraluminal filling defects to suggest acute pulmonary emboli. LUNGS: There are no infiltrates nor evidence of pulmonary infarction.. There are no pleural effusions.? Tiny 1 millimeter calcified granuloma noted in the posterior basal segment left lower lobe.? No ominous pulmonary nodules. MEDIASTINUM: There is no hilar nor mediastinal adenopathy. Visualized thyroid unremarkable. CARDIAC: Heart size is upper normal.? There is no pericardial effusion.Caliber of the thoracic aorta is within normal limits.? There is no significant shift of the interventricular septum. PARTIALLY VISUALIZED UPPERMOST ABDOMEN: No obvious findings OSSEOUS: No significant osseous lesions.No fractures.. IMPRESSION: 1. No evidence of acute pulmonary emboli.? No evidence of pulmonary infarction.No pleural effusions.? No infiltrates.? No intrathoracic adenopathy. Lab Data Lab results reviewed: Yes I reviewed the patient's lab results. Labs: Laboratory Tests Range/Units 03/06/23 03/06/23 03/06/23 04:41 04:41 08:10 WBC (4.4-10.8) 10^3/uL 8.75 RBC (4.36-5.78) 10^6/uL 3.79 L Hgb (13.5-17.5) g/dL 11.5 L Hct (40.0-50.0) % 33.3 L MCV (80-95) fL 88 MCH (27.0-33.0) pg 30.3 MCHC (32.0-36.0) % 34.5 RDW (11.8-14.1) % 12.0 Plt Count (130-400) 10^3/uL 159 MPV (8.0-11.0) fL 8.4 Immature Gran % 0.5 Neutrophils % 62.1 Lymphocytes % 25.9 Monocytes % 6.2 Eosinophils % 5.0 Basophils % 0.3 Nucleated RBC % (0.0-0.3) % 0.0 Absolute Neutrophils (1.2-6.7) 10^3/uL 5.43 Absolute Lymphocytes (1.2-3.4) 10^3/uL 2.27 Absolute Monocytes (0.1-0.8) 10^3/uL 0.54 Absolute Eosinophils (0.0-0.7) 10^3/uL 0.44 Absolute Basophils (0.0-0.2) 10^3/uL 0.03 Sodium (136-145) mmol/L 136 Potassium (3.5-5.1) mmol/L 4.0 Chloride (98-107) mmol/L 97 L Carbon Dioxide (21.0-32.0) mmol/L 30.8 Anion Gap (3-11) mmol/L 8.2 BUN (7-18) mg/dL 8 Creatinine (0.70-1.30) mg/dL 0.9 Est GFR (CKD-EPI 2020) (mL/min/1.73m2) 99.62 Glucose (74-106) mg/dL 150 H Calcium (8.5-10.1) mg/dL 8.4 L Total Bilirubin (0.2-1.0) mg/dL 0.4 AST (15-37) U/L 13 L ALT (16-63) U/L 28 Alkaline Phosphatase (46-116) U/L 90 Troponin I (<or=60) ng/L < 50 < 50 Total Protein (6.4-8.2) g/dL 7.7 Albumin (3.4-5.0) g/dL 3.4 ECG Data Attestation: I personally reviewed and interpreted this ECG (s) as follows: Interpretation: rate of 68, sinus, normal axis, no stemi. Sign Out Sign Out Data: Sign Out Comment: chest pain typical with prior presentations, plan on delta troponin and if negative and stable d/c with pcp f/u Last updated by Doc Ramos MD at 03/06/23 06:01 Discharge Plan Disposition Patient Disposition: Home Condition: Stable Discharge Details Clinical Impression: Chest pain Primary Care Provider: Brandon Foster ED Provider: [place] Viera Home Meds and New Rx's Prescriptions: Continued Nurtec ODT 75 mg tablet,disintegrating 75 mg PO ONCE PRN (Reason: migraine headache) Qty: 10 3RF Rx Instructions: As a single dose. No more than one dose in 24 hours. chlorhexidine gluconate [Peridex] 0.12 % mouthwash 15 ml mucous membrane BID Qty: 473 5RF Rx Instructions: rinse and spit twice a day Emgality Pen 120 mg/mL pen injector 120 mg subcut QMONTH Qty: 1 11RF sumatriptan succinate 100 mg tablet See Rx Instructions PO .COMPLEX Qty: 9 5RF Rx Instructions: take 1 tab at onset of headache; if no relief, may repeat 1 tab after at least 2 hrs; max = 2 tabs/24 hrs PO Claritin Liqui-Gel 10 MG capsule 1 cap PO DAILY Qty: 90 prochlorperazine maleate 10 mg tablet See Rx Instructions .ROUTE .COMPLEX Qty: 20 2RF Dose Instruction: TAKE 1 TABLET BY MOUTH EVERY 8 HOURS NEEDED FOR NAUSEA AND VOMITING, HEADACHE Rx Instructions: TAKE 1 TABLET BY MOUTH EVERY 8 HOURS NEEDED FOR NAUSEA AND VOMITING, HEADACHE multivitamin Tablet 1 tab PO DAILY vitamin A 10,000 unit Capsule 10,000 unit PO DAILY metformin 500 mg tablet 1 tab PO BID omeprazole 20 mg capsule,delayed release(DR/EC) 40 mg PO DAILY Nurtec ODT 75 mg tablet,disintegrating 75 mg PO PRN PRN Patient Comments: Take 1 tablet by mouth once a day as needed for migraine clonazepam 0.5 mg tablet See Rx Instructions .ROUTE .COMPLEX Rx Instructions: 1 tab in AM, 1 tab at Noon and 2 tab QHS benztropine 0.5 MG tablet 0.5 mg PO BID aspirin,buffd-calcium carb-mag 325 MG tablet 325 mg PO DAILY Risperdal Consta 25 mg/2 mL suspension,extended rel recon 25 mg IM USEASDIRECTD Patient Comments: INJECT ONE SYRINGE INTRAMUSCULARLY ONCE EVERY TWO WEEKS Rx Instructions: every 2 weeks lactulose 10 gram/15 mL solution 20 g PO DIRECTED PRN Patient Comments: TAKE ONE TO TWO TABLESPOONS BY MOUTH NEEDED WHEN 3 DAYS PASS WITHOUT BOWEL MOVEMENT lorazepam 1 mg tablet 1 mg PO QID Patient Comments: no longer taking 03/04/2023 CT Rx Instructions: 01/03/21 1 mg in am and 2 mg at hs Reports 1 mg in am, 1 mg in afternoon, 2 mg at hs albuterol sulfate 90 mcg/actuation aerosol powdr breath activated 2 inh IH Q6H PRN (Reason: shortness of breath or wheezing) Qty: 1 0RF Nu-Mag 71.5 mg tablet,delayed release (DR/EC) 71.5 mg PO DAILY Qty: 20 0RF atenolol 50 mg tablet 75 mg PO DAILY Rx Instructions: To take with 25mg dose for TDD 75mg daily simvastatin 40 mg tablet 40 mg PO DAILY Discharge Instructions Instructions: Chest Pain (ED) Additional Instructions: Your blood tests and EKG today are reassuring and show no evidence of acute concerning findings. An order for an outpatient stress test was placed last month. Please call the specialty clinics to schedule this appointment for further evaluation of your chronic intermittent chest pain. Follow-up with your primary care doctor in 1 week. Return to the emergency department with any worsening or new concerning symptoms. Discharge Data Discharge Date/Time-TO BE ENTERED AT DEPARTURE: 03/06/23 10:38 Discharge Physician: [place] Viera
== END 2023-03-06 10:38 | disposition home or self-care (01) ==
PROVIDERS: Emergency Medicine; Emergency Provider Physician Assistant; PCP Family Medicine
DX: R07.9 Chest pain, unspecified (principal); E11.9 Type 2 diabetes mellitus without complications
CPT/HCPCS: 80053; 93005; 99283; 84484; 85025; 93010; 99284

== ENCOUNTER 2023-03-08 18:57 | Emergency (ER) | payer MEDICAID, SELFPAY ==
[2023-03-08] VITALS (31 sets, daily range): BP systolic 120–151; BP diastolic 60–73; PULSE 59–71; RESP 12–21; TEMP 36.7; O2SAT 92–99
--- NOTE | 2023-03-08 18:45 | RT.EKG_ITS ---
APPROVED REPORT Exam: Resting ECG Reason for Exam: CHEST PAIN Patient Location: E HR:66 bpm ECG Measurements Heart Rate [address] 170 P 30 QRSd 107 QRS 21 QT 459 T 65 QTc 483 Conclusion Sinus rhythm...normal P axis, V-rate 60- 99. Sinus. Normal axis. No STEMI. I have reviewed and interpreted ECG and agree with software generated interpretation.
[2023-03-08 19:31] LABS: Abs Immature Grans 0.01 10^3/uL (0.0-0.06); Absolute Basophil Count 0.03 10^3/uL (0.0-0.2); Absolute Eosinophil Count 0.41 10^3/uL (0.0-0.7); Absolute Monocyte Count 0.43 10^3/uL (0.1-0.8); Absolute Neutrophil Count 4.38 10^3/uL (1.2-6.7); Basophils % 0.4; Eosinophils % 5.5; HCT 35.5 % (40.0-50.0); HGB 12.3 g/dL (13.5-17.5); Immature Grans % 0.1; Lymphocytes % 29.5; MCH 30.1 pg (27.0-33.0); MCHC 34.6 % (32.0-36.0); MCV 87 fL (80-95); MPV 8.6 fL (8.0-11.0); Monocytes % 5.8; Neutrophils % 58.7; Platelet Count 176 10^3/uL (130-400); RBC 4.09 10^6/uL (4.36-5.78); RDW 11.9 % (11.8-14.1); WBC 7.46 10^3/uL (4.4-10.8)
[2023-03-08 19:54] LABS: ALT 32 U/L (16-63); AST 15 U/L (15-37); Albumin 3.5 g/dL (3.4-5.0); Alkaline Phosphatase 98 U/L (46-116); Anion Gap 6.7 mmol/L (3-11); BUN 8 mg/dL (7-18); Bilirubin, Total 0.4 mg/dL (0.2-1.0); CO2 29.3 mmol/L (21.0-32.0); CREATININE 0.9 mg/dL (0.70-1.30); Calcium 8.8 mg/dL (8.5-10.1); Chloride 98 mmol/L (98-107); Glucose 189 mg/dL (74-106); Magnesium 1.7 mg/dL (1.8-2.4); Sodium 134 mmol/L (136-145); Total Protein 8.1 g/dL (6.4-8.2); Troponin I < 50 ng/L (<or=60)
[2023-03-08] MEDS: Magnesium Oxide 400 MG TAB PO (20:49)
[2023-03-08 21:32] LABS: Troponin I < 50 ng/L (<or=60)
--- NOTE | 2023-03-08 21:40 | ED.GENADUL_ITS ---
Discharge Plan Disposition Patient Disposition: Home Condition: Improving Discharge Details Clinical Impression: Chest pain, Schizoaffective disorder Primary Care Provider: Brandon Foster ED Provider: Karlos Vasquez Home Meds and New Rx's Prescriptions: Continued Emgality Pen 120 mg/mL pen injector 120 mg subcut QMONTH Qty: 1 11RF Nurtec ODT 75 mg tablet,disintegrating 75 mg PO ONCE PRN (Reason: migraine headache) Qty: 10 3RF Rx Instructions: As a single dose. No more than one dose in 24 hours. sumatriptan succinate 100 mg tablet See Rx Instructions PO .COMPLEX Qty: 9 5RF Rx Instructions: take 1 tab at onset of headache; if no relief, may repeat 1 tab after at least 2 hrs; max = 2 tabs/24 hrs PO chlorhexidine gluconate [Peridex] 0.12 % mouthwash 15 ml mucous membrane BID Qty: 473 5RF Rx Instructions: rinse and spit twice a day Claritin Liqui-Gel 10 MG capsule 1 cap PO DAILY Qty: 90 prochlorperazine maleate 10 mg tablet See Rx Instructions .ROUTE .COMPLEX Qty: 20 2RF Dose Instruction: TAKE 1 TABLET BY MOUTH EVERY 8 HOURS NEEDED FOR NAUSEA AND VOMITING, HEADACHE Rx Instructions: TAKE 1 TABLET BY MOUTH EVERY 8 HOURS NEEDED FOR NAUSEA AND VOMITING, HEADACHE multivitamin Tablet 1 tab PO DAILY vitamin A 10,000 unit Capsule 10,000 unit PO DAILY metformin 500 mg tablet 1 tab PO BID omeprazole 20 mg capsule,delayed release(DR/EC) 40 mg PO DAILY clonazepam 0.5 mg tablet See Rx Instructions .ROUTE .COMPLEX Rx Instructions: 1 tab in AM, 1 tab at Noon and 2 tab QHS benztropine 0.5 MG tablet 0.5 mg PO BID aspirin,buffd-calcium carb-mag 325 MG tablet 325 mg PO DAILY Risperdal Consta 25 mg/2 mL suspension,extended rel recon 25 mg IM USEASDIRECTD Patient Comments: INJECT ONE SYRINGE INTRAMUSCULARLY ONCE EVERY TWO WEEKS Rx Instructions: every 2 weeks lactulose 10 gram/15 mL solution 20 g PO DIRECTED PRN Patient Comments: TAKE ONE TO TWO TABLESPOONS BY MOUTH NEEDED WHEN 3 DAYS PASS WITHOUT BOWEL MOVEMENT albuterol sulfate 90 mcg/actuation aerosol powdr breath activated 2 inh IH Q6H PRN (Reason: shortness of breath or wheezing) Qty: 1 0RF Nu-Mag 71.5 mg tablet,delayed release (DR/EC) 71.5 mg PO DAILY Qty: 20 0RF atenolol 50 mg tablet 75 mg PO DAILY Rx Instructions: To take with 25mg dose for TDD 75mg daily simvastatin 40 mg tablet 40 mg PO DAILY fluoxetine 40 mg capsule 80 mg PO DAILY Discharge Instructions Instructions: Chest Pain (ED) Additional Instructions: Please take your medication as prescribed and follow-up with your primary care provider given your multiple visits to the emergency department for chest pain. Your work-up today did not reveal any emergent findings. Referrals: Brandon Foster [Primary Care Provider] - 3 days Discharge Data Discharge Date/Time-TO BE ENTERED AT DEPARTURE: 03/08/23 21:52 Medical Decision Making Patient presenting to the emergency department via EMS for chief complaint of chest pain. Patient reports that chest pain woke him up after resting in a chair that started 20 minutes prior to calling EMS. Patient states some radiation of pain to left arm. Patient states this is somewhat similar to previous episodes of chest pain which she has been seen in the emergency department for. Physical exam is unremarkable and patient in no signs of acute distress. Patient did state he took aspirin prior to EMS arrival. We will plan on checking labs and EKG. Patient has significant past medical history of anxiety, schizoaffective disorder, diabetes, depression, atypical chest pain with previous negative work-ups. Please see physician interpretation for full interpretation of EKG but upon my review patient is in sinus rhythm with no acute findings to suggest STEMI. Labs were reviewed and patient has a chronic but stable anemia, sodium of 134, glucose 189, magnesium of 1.7. We will give patient oral magnesium for repletion. Initial troponin is nondetected at less than 50. We will continue to monitor and repeat second troponin. Second troponin was repeated and shows continued nondetection of troponin test. Patient reassessed and did state some improvement of discomfort and was in agreement with discharge disposition to go home and follow-up with primary care provider. Patient was encouraged to continue outpatient work-up with stress test and echo which have previously been discussed with patient. After discussion of diagnosis and plan of care patient has no further needs, questions, or concerns and states clear understanding to return to the emergency department for any worsening symptoms. This documentation was generated using [employer]ib[employer] system, please disregard any oddities of phrase or misspellings. Lab Data Lab results reviewed: Yes I reviewed the patient's lab results. HPI General Mode of arrival: EMS . Date/Time Provider Initiated Documentation: 03/08/23 19:16 . Limitations to Documentation: no limitations . Information obtained by: patient and RN notes reviewed . History of Present Illness 58 year old M presents to the emergency department with the chief complaint of Chest pain, described as moderate, with intensity rated at 6. Quality is described as aching, and is localized to the chest. Patient extremity. Patient started experiencing this minute(s) (20) and it has been constant. No relieving factors improve symptom(s), No exacerbating factors reported . Patient notes no other symptoms.. Patient did receive the following treatments prior to arrival, none Related Data Home Medications Medication Instructions Recorded Confirmed loratadine 10 mg capsule (Claritin 1 cap PO DAILY #90 tabs 12/16/14 03/10/23 Liqui-Gel) aspirin,buffered (calcium 325 mg PO DAILY 11/18/16 03/10/23 carbonate-magnesium) 325 mg tablet benztropine 0.5 mg tablet 0.5 mg PO BID 11/18/16 03/10/23 lactulose 10 gram/15 mL oral 20 g PO DIRECTED PRN 10/03/20 03/10/23 solution risperidone microspheres 25 mg/2 25 mg IM USEASDIRECTD 10/03/20 03/10/23 mL intramuscular susp,ext release (Risperdal Consta) albuterol sulfate 90 mcg/actuation 2 inh inhalation Q6H PRN shortness 12/15/20 03/10/23 breath activated powder inhaler of breath or wheezing #1 ea multivitamin 1 tab PO DAILY 01/26/21 03/10/23 vitamin A 3,000 mcg (10,000 unit) 10,000 unit PO DAILY 01/26/21 03/10/23 capsule chlorhexidine gluconate 0.12 % 15 ml mucous membrane BID dental 09/06/21 03/10/23 mouthwash (Peridex) problem #473 mL metformin 500 mg tablet 1 tab PO BID 03/18/22 03/10/23 omeprazole 20 mg capsule,delayed 40 mg PO DAILY 03/18/22 03/10/23 release magnesium chloride 71.5 mg 71.5 mg PO DAILY #20 tabs 09/05/22 03/10/23 (magnesium chloride) tablet,delayed release (Nu-Mag) atenolol 50 mg tablet 75 mg PO DAILY 09/26/22 03/10/23 simvastatin 40 mg tablet 40 mg PO DAILY 12/25/22 03/10/23 prochlorperazine maleate 10 mg See Rx Instructions .Route 01/08/23 03/10/23 tablet .COMPLEX #20 tabs clonazepam 0.5 mg tablet See Rx Instructions .Route .COMPLEX 03/04/23 03/10/23 fluoxetine 40 mg capsule 80 mg PO DAILY 03/08/23 03/10/23 galcanezumab-gnlm 120 mg/mL 120 mg subcut QMONTH #1 mL 03/08/23 03/10/23 subcutaneous pen injector (Emgality Pen) rimegepant 75 mg disintegrating 75 mg PO ONCE PRN migraine 03/08/23 03/10/23 tablet (Nurtec ODT) headache #10 tabs sumatriptan succinate 100 mg tablet See Rx Instructions PO .COMPLEX #9 03/08/23 03/10/23 tabs Previous Rx's Medication Instructions Recorded albuterol sulfate 90 mcg/actuation 2 inh inhalation Q6H PRN shortness 12/15/20 breath activated powder inhaler of breath or wheezing #1 ea chlorhexidine gluconate 0.12 % 15 ml mucous membrane BID dental 09/06/21 mouthwash (Peridex) problem #473 mL magnesium chloride 71.5 mg 71.5 mg PO DAILY #20 tabs 09/05/22 (magnesium chloride) tablet,delayed release (Nu-Mag) prochlorperazine maleate 10 mg See Rx Instructions .Route 01/08/23 tablet .COMPLEX #20 tabs galcanezumab-gnlm 120 mg/mL 120 mg subcut QMONTH #1 mL 03/08/23 subcutaneous pen injector (Emgality Pen) rimegepant 75 mg disintegrating 75 mg PO ONCE PRN migraine 03/08/23 tablet (Nurtec ODT) headache #10 tabs sumatriptan succinate 100 mg tablet See Rx Instructions PO .COMPLEX #9 03/08/23 tabs Allergies Allergy/AdvReac Type Severity Reaction Status Date / Time buspirone Allergy Verified 03/10/23 09:03 paliperidone Allergy Verified 03/10/23 09:03 paroxetine HCl [From Paxil] Allergy Verified 03/10/23 09:03 sertraline Allergy Verified 03/10/23 09:03 ziprasidone [From Geodon] Allergy Other (See Verified 03/10/23 09:03 Comment) aripiprazole [From Abilify] AdvReac Intermediate INVOLUNTARY Verified 03/10/23 09:03 MUSCLE MOVEMENTS divalproex sodium AdvReac Intermediate INVOLUNTARY Verified 03/10/23 09:03 [From Depakote] MUSCLE MOVEMENTS mirtazapine AdvReac Intermediate INVOLUNTARY Verified 03/10/23 09:03 MUSCLE MOVEMENTS risperidone AdvReac Intermediate INVOLUNTARY Verified 03/10/23 09:03 MUSCLE MOVEMENTS benztropine mesylate AdvReac elevated Verified 03/10/23 09:03 [From Cogentin] blood sugars enviornmental Allergy Mild Wheezing Uncoded 03/10/23 09:03 General Stated Complaint: Chest Pain CARLOS: 2 Review of Systems Constitutional Constitutional: Denies chills, Denies fever(s) and Denies malaise Cardiovascular Cardiovascular: Reports as per HPI, Reports chest pain, Denies chest pain with activity, Denies syncope, Denies irregular heart rhythm, Denies palpitations and Denies dyspnea Respiratory Respiratory: Denies cough, Denies hemoptysis and Denies dyspnea Gastrointestinal Gastrointestinal: Denies abdominal pain, Denies nausea and Denies vomiting Neurologic Neurologic: Denies syncope Psychiatric Psychiatric: Denies anxiety Endocrine Endocrine: Denies cold intolerance, Denies heat intolerance and Denies palpitations PFSH All Active Problems (Updated 03/10/23 @ 10:41 by Doc Ramos MD) Schizoaffective disorder (Acute 09/07/14) Rebekah Mariscal [facility] 09/2014- COUNT INCLUDES THE [facility] inpatient Hypothyroidism (acquired) (Acute 09/07/14) Hypercholesterolemia (Chronic 09/07/14) pt insists on lipitor 80 mg due to family hx GERD (gastroesophageal reflux disease) (Acute 09/07/14) Diabetes mellitus type 2 in obese (Acute 09/09/14) Depression (Acute 10/02/14) Left-sided chest wall pain (Acute) Hypertension (Chronic) pt requests brand name Tenormin vs atenolol 04/02/18 Chest pain (Acute) Chronic headache (Acute) Migraine headache without aura (Acute) Migraine (Chronic) Obesity (Chronic) BMI 52 Poor dentition (Acute) Tobacco use disorder (Chronic) started 2013 1.5 ppd, pipe 1-7/week, QUIT LATE OCT 2021 Allergic rhinitis (Chronic) lortadine Hiatal hernia (Chronic) protonix not effective, nexium works better 02/12/18 Anemia (Chronic) Broken teeth (Chronic) Drug-seeking behavior (Chronic ~09/20/21) Requests Ritalin from providers Medication overuse headache (Acute) Acute hyperglycemia (Acute) Chest pain (Acute) Atypical chest pain (Acute) Medical History Anxiety Dental caries Hyperlipidemia Mitral valve prolapse Peripheral neuropathy Trigeminal neuralgia Surgical History No significant past surgical history Family History Father Heart disease [place] Social History Smoking/Tobacco Use Status: Current every day Tobacco Type: cigarettes, pipe Years: 8 Other: States equivalent to 1.5 packs cigarettes and cigars Smoking risk assessment performed?: Yes Alcohol Intake: never Drug use: Never Substance use type: does not use Adopted: No Caregiver/Support person: No Foster care: No Household members: none Housing: apartment Number of Children: 2 number of grandchildren: 1 Communication Needs: Corrective Lenses Education Level: college Do you need help understanding health information?: Always current occupation: Unemployed/Leave of absence Sexually active: No Do you think of yourself as: Decline to provide Current gender identity: male What type of physical activity do you participate in: other Details: weight lifting Frequency: 3-4 times per week Magalie/Taoist: Jewish Seatbelt use: always Drive intox or ride w/intox motor coach bus 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 Exam Const General: cooperative, comfortable, no acute distress, not diaphoretic and not ill appearing Orientation: alert, awake and oriented x3 Neck Neck: normal visual inspection, full ROM, trachea midline, supple and no anterior neck swelling Chest Chest: normal inspection of the chest Resp Effort & Inspection: normal respiratory effort and able to speak in complete sentences Auscultation: clear to auscultation bilaterally Cardio Jugular venous pressure: no JVD Palpation: normal PMI Rate: regular rate Rhythm: regular rhythm Heart Sounds: S1 normal, S2 normal, no click, no gallops, no murmurs and no rubs Bruits: no abdominal aortic bruits and no carotid bruits Pulses: radial pulses present bilaterally 2+ GI Inspection: obesity Skin General skin exam: no rashes or lesions noted Neuro General: patient alert, patient awake, patient oriented x3, tone normal and moves all extremities Course Vital Signs Vital signs: Vital Signs Temperature 36.7 C 03/08/23 19:04 Pulse 66 03/08/23 19:04 Respiratory Rate 16 03/08/23 19:04 Blood Pressure 151/66 H 03/08/23 19:04 Pulse Oximetry 98 03/08/23 19:04 Temperature 36.7 C 03/08/23 19:04 Temperature Source Oral 03/08/23 19:04 Pulse 66 03/08/23 19:04 Respiratory Rate 15 03/08/23 20:57 Respiratory Effort Normal, Non-Labored 03/08/23 20:57 Respiratory Depth Normal 03/08/23 20:57 Respiratory Pattern Normal 03/08/23 20:57 Blood Pressure 151/66 H 03/08/23 19:04 Blood Pressure Position Sitting 03/08/23 19:04 Pulse Oximetry 98 03/08/23 19:04 Oxygen Delivery Method Room Air 03/08/23 19:04 Oxygen Flow Rate 0 03/08/23 19:04 Pain Level 7 03/08/23 19:04 Lab/Test Results Lab/Test Results: Laboratory Tests Range/Units 03/08/23 03/08/23 03/08/23 19:10 19:10 21:10 WBC (4.4-10.8) 10^3/uL 7.46 RBC (4.36-5.78) 10^6/uL 4.09 L Hgb (13.5-17.5) g/dL 12.3 L Hct (40.0-50.0) % 35.5 L MCV (80-95) fL 87 MCH (27.0-33.0) pg 30.1 MCHC (32.0-36.0) % 34.6 RDW (11.8-14.1) % 11.9 Plt Count (130-400) 10^3/uL 176 MPV (8.0-11.0) fL 8.6 Immature Gran % 0.1 Neutrophils % 58.7 Lymphocytes % 29.5 Monocytes % 5.8 Eosinophils % 5.5 Basophils % 0.4 Nucleated RBC % (0.0-0.3) % 0.0 Absolute Neutrophils (1.2-6.7) 10^3/uL 4.38 Absolute Lymphocytes (1.2-3.4) 10^3/uL 2.20 Absolute Monocytes (0.1-0.8) 10^3/uL 0.43 Absolute Eosinophils (0.0-0.7) 10^3/uL 0.41 Absolute Basophils (0.0-0.2) 10^3/uL 0.03 Sodium (136-145) mmol/L 134 L Potassium (3.5-5.1) mmol/L 4.0 Chloride (98-107) mmol/L 98 Carbon Dioxide (21.0-32.0) mmol/L 29.3 Anion Gap (3-11) mmol/L 6.7 BUN (7-18) mg/dL 8 Creatinine (0.70-1.30) mg/dL 0.9 Est GFR (CKD-EPI 2020) (mL/min/1.73m2) 99.00 Glucose (74-106) mg/dL 189 H Calcium (8.5-10.1) mg/dL 8.8 Magnesium (1.8-2.4) mg/dL 1.7 L Total Bilirubin (0.2-1.0) mg/dL 0.4 AST (15-37) U/L 15 ALT (16-63) U/L 32 Alkaline Phosphatase (46-116) U/L 98 Troponin I (<or=60) ng/L < 50 < 50 Total Protein (6.4-8.2) g/dL 8.1 Albumin (3.4-5.0) g/dL 3.5
== END 2023-03-08 21:52 | disposition home or self-care (01) ==
PROVIDERS: Emergency Provider Nurse Practitioner Family; PCP Family Medicine
DX: R07.9 Chest pain, unspecified (principal); F25.9 Schizoaffective disorder, unspecified; E83.42 Hypomagnesemia
CPT/HCPCS: 80053; 93005; 99283; 83735; 84484; 85025; 93010

== ENCOUNTER 2023-03-10 08:36 | Emergency (ER) | payer MEDICAID, SELFPAY ==
--- NOTE | 2023-03-10 08:30 | RT.EKG_ITS ---
APPROVED REPORT Exam: Resting ECG Reason for Exam: chest pain Patient Location: E HR:67 bpm ECG Measurements Heart Rate 67 AXIS WV 181 P 45 QRSd 98 QRS 13 QT 420 T 69 QTc 446 Conclusion Sinus rhythm...normal P axis, V-rate 60- 99
[2023-03-10 08:45] VITALS: BP 125/71; PULSE 67; RESP 18; O2SAT 99
--- NOTE | 2023-03-10 08:46 | ED.GENADUL_ITS ---
Discharge Plan Disposition Patient Disposition: Home Condition: Stable Discharge Details Clinical Impression: Atypical chest pain Primary Care Provider: Brandon Foster ED Provider: Doc Ramos Home Meds and New Rx's Prescriptions: Continued Emgality Pen 120 mg/mL pen injector 120 mg subcut QMONTH Qty: 1 11RF Nurtec ODT 75 mg tablet,disintegrating 75 mg PO ONCE PRN (Reason: migraine headache) Qty: 10 3RF Rx Instructions: As a single dose. No more than one dose in 24 hours. sumatriptan succinate 100 mg tablet See Rx Instructions PO .COMPLEX Qty: 9 5RF Rx Instructions: take 1 tab at onset of headache; if no relief, may repeat 1 tab after at least 2 hrs; max = 2 tabs/24 hrs PO chlorhexidine gluconate [Peridex] 0.12 % mouthwash 15 ml mucous membrane BID Qty: 473 5RF Rx Instructions: rinse and spit twice a day Claritin Liqui-Gel 10 MG capsule 1 cap PO DAILY Qty: 90 prochlorperazine maleate 10 mg tablet See Rx Instructions .ROUTE .COMPLEX Qty: 20 2RF Dose Instruction: TAKE 1 TABLET BY MOUTH EVERY 8 HOURS NEEDED FOR NAUSEA AND VOMITING, HEADACHE Rx Instructions: TAKE 1 TABLET BY MOUTH EVERY 8 HOURS NEEDED FOR NAUSEA AND VOMITING, HEADACHE multivitamin Tablet 1 tab PO DAILY vitamin A 10,000 unit Capsule 10,000 unit PO DAILY metformin 500 mg tablet 1 tab PO BID omeprazole 20 mg capsule,delayed release(DR/EC) 40 mg PO DAILY clonazepam 0.5 mg tablet See Rx Instructions .ROUTE .COMPLEX Rx Instructions: 1 tab in AM, 1 tab at Noon and 2 tab QHS benztropine 0.5 MG tablet 0.5 mg PO BID aspirin,buffd-calcium carb-mag 325 MG tablet 325 mg PO DAILY Risperdal Consta 25 mg/2 mL suspension,extended rel recon 25 mg IM USEASDIRECTD Patient Comments: INJECT ONE SYRINGE INTRAMUSCULARLY ONCE EVERY TWO WEEKS Rx Instructions: every 2 weeks lactulose 10 gram/15 mL solution 20 g PO DIRECTED PRN Patient Comments: TAKE ONE TO TWO TABLESPOONS BY MOUTH NEEDED WHEN 3 DAYS PASS WITHOUT BOWEL MOVEMENT albuterol sulfate 90 mcg/actuation aerosol powdr breath activated 2 inh IH Q6H PRN (Reason: shortness of breath or wheezing) Qty: 1 0RF Nu-Mag 71.5 mg tablet,delayed release (DR/EC) 71.5 mg PO DAILY Qty: 20 0RF atenolol 50 mg tablet 75 mg PO DAILY Rx Instructions: To take with 25mg dose for TDD 75mg daily simvastatin 40 mg tablet 40 mg PO DAILY fluoxetine 40 mg capsule 80 mg PO DAILY Discharge Instructions Additional Instructions: Your blood work and ekg did not show concerning findings at this time follow up with your primary care provider and [facility] services if you feel more ill, have severe worsening pain or difficulty breathing return to the emergency department Medical Decision Making 58 yo male with hx of schizoaffective disorder, htn, gerd, who comes in with cc of chest pain which he gets frequently and is seen here frequently for this. He states the pain is in the left chest, denies radiation of pain or pain with exertion or diaphoresis. No dyspnea. He arrives stable in no distress speaking clearly. He has clear lungs, no rashes of the chest, soft nontender abdomen. No tearing back pain to suggest dissection, no evidence of dvt on exam and no pleuritic pain so doubt PE. Will obtain troponin and monitor. labs unremarkable, and pt stable. Will obtain delta troponin. He does note he's had increased anxiety and panic attacks, wants to try and go to the care bed, no si/hi. will consult [facility]. screened by [facility], cleared to go home and is on a list to get into the care bed, second troponin negative, he is stable and appears well, instructed to f/u with pcp, return precautions given Differential Diagnosis Differential Diagnosis: anxiety, chest wall pain, nstemi Medical Records Medical records reviewed: Yes I reviewed the patient's medical records. Lab Data Lab results reviewed: Yes I reviewed the patient's lab results. ECG Data Attestation: I personally reviewed and interpreted this ECG (s) as follows: Prior ECG tracings: available for review Interpretation: sinus rhythm, rate of 67, pr 181, no acute ischemic findings. motion artifact in v4 HPI General Mode of arrival: EMS . Date/Time Provider Initiated Documentation: 03/10/23 08:46 . Limitations to Documentation: no limitations . Information obtained by: patient . History of Present Illness 58 year old M presents to the emergency department with the chief complaint of chest pain, described as moderate, Quality is described as aching, Patient started experiencing this hour(s) (2) and it has been constant. No relieving factors improve symptom(s), No exacerbating factors reported . Patient notes no other symptoms.; denies fever/chills and shortness of breath. Patient did receive the following treatments prior to arrival, none Related Data Home Medications Medication Instructions Recorded Confirmed loratadine 10 mg capsule (Claritin 1 cap PO DAILY #90 tabs 12/16/14 03/10/23 Liqui-Gel) aspirin,buffered (calcium 325 mg PO DAILY 11/18/16 03/10/23 carbonate-magnesium) 325 mg tablet benztropine 0.5 mg tablet 0.5 mg PO BID 11/18/16 03/10/23 lactulose 10 gram/15 mL oral 20 g PO DIRECTED PRN 10/03/20 03/10/23 solution risperidone microspheres 25 mg/2 25 mg IM USEASDIRECTD 10/03/20 03/10/23 mL intramuscular susp,ext release (Risperdal Consta) albuterol sulfate 90 mcg/actuation 2 inh inhalation Q6H PRN shortness 12/15/20 03/10/23 breath activated powder inhaler of breath or wheezing #1 ea multivitamin 1 tab PO DAILY 01/26/21 03/10/23 vitamin A 3,000 mcg (10,000 unit) 10,000 unit PO DAILY 01/26/21 03/10/23 capsule chlorhexidine gluconate 0.12 % 15 ml mucous membrane BID dental 09/06/21 03/10/23 mouthwash (Peridex) problem #473 mL metformin 500 mg tablet 1 tab PO BID 03/18/22 03/10/23 omeprazole 20 mg capsule,delayed 40 mg PO DAILY 03/18/22 03/10/23 release magnesium chloride 71.5 mg 71.5 mg PO DAILY #20 tabs 09/05/22 03/10/23 (magnesium chloride) tablet,delayed release (Nu-Mag) atenolol 50 mg tablet 75 mg PO DAILY 09/26/22 03/10/23 simvastatin 40 mg tablet 40 mg PO DAILY 12/25/22 03/10/23 prochlorperazine maleate 10 mg See Rx Instructions .Route 01/08/23 03/10/23 tablet .COMPLEX #20 tabs clonazepam 0.5 mg tablet See Rx Instructions .Route .COMPLEX 03/04/23 03/10/23 fluoxetine 40 mg capsule 80 mg PO DAILY 03/08/23 03/10/23 galcanezumab-gnlm 120 mg/mL 120 mg subcut QMONTH #1 mL 03/08/23 03/10/23 subcutaneous pen injector (Emgality Pen) rimegepant 75 mg disintegrating 75 mg PO ONCE PRN migraine 03/08/23 03/10/23 tablet (Nurtec ODT) headache #10 tabs sumatriptan succinate 100 mg tablet See Rx Instructions PO .COMPLEX #9 03/08/23 03/10/23 tabs Previous Rx's Medication Instructions Recorded albuterol sulfate 90 mcg/actuation 2 inh inhalation Q6H PRN shortness 12/15/20 breath activated powder inhaler of breath or wheezing #1 ea chlorhexidine gluconate 0.12 % 15 ml mucous membrane BID dental 09/06/21 mouthwash (Peridex) problem #473 mL magnesium chloride 71.5 mg 71.5 mg PO DAILY #20 tabs 09/05/22 (magnesium chloride) tablet,delayed release (Nu-Mag) prochlorperazine maleate 10 mg See Rx Instructions .Route 01/08/23 tablet .COMPLEX #20 tabs galcanezumab-gnlm 120 mg/mL 120 mg subcut QMONTH #1 mL 03/08/23 subcutaneous pen injector (Emgality Pen) rimegepant 75 mg disintegrating 75 mg PO ONCE PRN migraine 03/08/23 tablet (Nurtec ODT) headache #10 tabs sumatriptan succinate 100 mg tablet See Rx Instructions PO .COMPLEX #9 03/08/23 tabs Allergies Allergy/AdvReac Type Severity Reaction Status Date / Time buspirone Allergy Verified 03/10/23 09:03 paliperidone Allergy Verified 03/10/23 09:03 paroxetine HCl [From Paxil] Allergy Verified 03/10/23 09:03 sertraline Allergy Verified 03/10/23 09:03 ziprasidone [From Geodon] Allergy Other (See Verified 03/10/23 09:03 Comment) aripiprazole [From Abilify] AdvReac Intermediate INVOLUNTARY Verified 03/10/23 09:03 MUSCLE MOVEMENTS divalproex sodium AdvReac Intermediate INVOLUNTARY Verified 03/10/23 09:03 [From Depakote] MUSCLE MOVEMENTS mirtazapine AdvReac Intermediate INVOLUNTARY Verified 03/10/23 09:03 MUSCLE MOVEMENTS risperidone AdvReac Intermediate INVOLUNTARY Verified 03/10/23 09:03 MUSCLE MOVEMENTS benztropine mesylate AdvReac elevated Verified 03/10/23 09:03 [From Cogentin] blood sugars enviornmental Allergy Mild Wheezing Uncoded 03/10/23 09:03 General CARLOS: 2 Review of Systems All systems reviewed & are unremarkable except as noted in HPI and below Constitutional Constitutional: Denies chills, Denies fever(s) and Denies weakness Cardiovascular Cardiovascular: Reports chest pain and Denies dyspnea Respiratory Respiratory: Denies cough and Denies dyspnea Gastrointestinal Gastrointestinal: Denies abdominal pain, Denies nausea and Denies vomiting Musculoskeletal Musculoskeletal: Denies joint swelling Integumentary/Breasts Skin/Breast: Denies rash Neurologic Neurologic: Denies weakness [facility] All Active Problems (Updated 03/10/23 @ 10:41 by Doc Ramos MD) Schizoaffective disorder (Acute 09/07/14) Rebekah Mariscal [facility] 09/2014- [facility] inpatient Hypothyroidism (acquired) (Acute 09/07/14) Hypercholesterolemia (Chronic 09/07/14) pt insists on lipitor 80 mg due to family hx GERD (gastroesophageal reflux disease) (Acute 09/07/14) Diabetes mellitus type 2 in obese (Acute 09/09/14) Depression (Acute 10/02/14) Left-sided chest wall pain (Acute) Hypertension (Chronic) pt requests brand name Tenormin vs atenolol 04/02/18 Chest pain (Acute) Chronic headache (Acute) Migraine headache without aura (Acute) Migraine (Chronic) Obesity (Chronic) BMI 52 Poor dentition (Acute) Tobacco use disorder (Chronic) started 2013 1.5 ppd, pipe 1-7/week, QUIT LATE OCT 2021 Allergic rhinitis (Chronic) lortadine Hiatal hernia (Chronic) protonix not effective, nexium works better 02/12/18 Anemia (Chronic) Broken teeth (Chronic) Drug-seeking behavior (Chronic ~09/20/21) Requests Ritalin from providers Medication overuse headache (Acute) Acute hyperglycemia (Acute) Chest pain (Acute) Atypical chest pain (Acute) Medical History Anxiety Dental caries Hyperlipidemia Mitral valve prolapse Peripheral neuropathy Trigeminal neuralgia Surgical History No significant past surgical history Family History Father Heart disease [place] Social History Smoking/Tobacco Use Status: Current every day Tobacco Type: cigarettes, pipe Years: 8 Other: States equivalent to 1.5 packs cigarettes and cigars Smoking risk assessment performed?: Yes Alcohol Intake: never Drug use: Never Substance use type: does not use Adopted: No Caregiver/Support person: No Foster care: No Household members: none Housing: apartment Number of Children: 2 number of grandchildren: 1 Communication Needs: Corrective Lenses Education Level: college Do you need help understanding health information?: Always current occupation: Unemployed/Leave of absence Sexually active: No Do you think of yourself as: Decline to provide Current gender identity: male What type of physical activity do you participate in: other Details: weight lifting Frequency: 3-4 times per week Magalie/Christianity: Rastafari Seatbelt use: always Drive 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 ride w/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 Exam Const General: no acute distress Orientation: alert HENMT Head: normal to inspection Ears: external ears normal General nose exam: external nose normal Mouth: moist mucous membranes Eyes General: appearance normal, both eyes and all related structures Neck Neck: normal visual inspection Resp Effort & Inspection: normal respiratory effort and able to speak in complete sentences Auscultation: clear to auscultation bilaterally Cardio Jugular venous pressure: no JVD Rate: regular rate Heart Sounds: no murmurs Skin General skin exam: no rashes or lesions noted Neuro General: patient alert and patient oriented x3 Extrem General: normal to inspection Psych Mental Status: mental status grossly normal
[2023-03-10 09:02] VITALS: RESP 18
[2023-03-10 09:28] LABS: Abs Immature Grans 0.03 10^3/uL (0.0-0.06); Absolute Basophil Count 0.02 10^3/uL (0.0-0.2); Absolute Neutrophil Count 5.29 10^3/uL (1.2-6.7); Basophils % 0.2; Eosinophils % 5.7; HCT 35.4 % (40.0-50.0); HGB 12.4 g/dL (13.5-17.5); Immature Grans % 0.3; Lymphocytes % 26.3; MCH 30.5 pg (27.0-33.0); MCV 87 fL (80-95); MPV 8.4 fL (8.0-11.0); Monocytes % 6.9; Neutrophils % 60.6; Platelet Count 181 10^3/uL (130-400); RBC 4.07 10^6/uL (4.36-5.78); RDW 11.9 % (11.8-14.1); RDW-SD 37.9 fL; WBC 8.74 10^3/uL (4.4-10.8)
[2023-03-10 09:43] LABS: ALT 29 U/L (16-63); AST 14 U/L (15-37); Albumin 3.4 g/dL (3.4-5.0); Alkaline Phosphatase 87 U/L (46-116); Anion Gap 5.6 mmol/L (3-11); BUN 10 mg/dL (7-18); Bilirubin, Total 0.3 mg/dL (0.2-1.0); CO2 30.4 mmol/L (21.0-32.0); CREATININE 0.9 mg/dL (0.70-1.30); Calcium 9.3 mg/dL (8.5-10.1); Chloride 98 mmol/L (98-107); Glucose 151 mg/dL (74-106); Potassium 4.4 mmol/L (3.5-5.1); Sodium 134 mmol/L (136-145); Total Protein 7.7 g/dL (6.4-8.2); Troponin I < 50 ng/L (<or=60)
[2023-03-10] MEDS: Mylanta Suspension 30 ML CUP PO (10:57)
[2023-03-10 11:29] LABS: Troponin I < 50 ng/L (<or=60)
[2023-03-10 11:47] VITALS: BP 148/86; PULSE 66; O2SAT 95
== END 2023-03-10 11:58 | disposition home or self-care (01) ==
PROVIDERS: Emergency Provider Emergency Medicine; PCP Family Medicine
DX: R07.89 Other chest pain (principal); I10 Essential (primary) hypertension; E11.69 Type 2 diabetes mellitus with other specified complication; K21.9 Gastro-esophageal reflux disease without esophagitis; F25.9 Schizoaffective disorder, unspecified
CPT/HCPCS: 80053; 93005; 99283; 84484; 85025; 93010

== ENCOUNTER 2023-03-14 14:07 | Emergency (ER) | payer MEDICAID, SELFPAY ==
--- NOTE | 2023-03-14 14:00 | RT.EKG_ITS ---
APPROVED REPORT Exam: Resting ECG Reason for Exam: Chest pain Patient Location: E HR:66 bpm ECG Measurements Heart Rate 66 AXIS NJ 194 P 30 QRSd 97 QRS 11 QT 443 T 63 QTc 464 Conclusion Sinus rhythm...normal P axis, V-rate 60- 99
--- NOTE | 2023-03-14 14:19 | ED.GENADUL_ITS ---
Discharge Plan Discharge Details Chief Complaint: Chest Pain Primary Care Provider: Brandon Foster ED Provider: Karlos Vasquez Home Meds and New Rx's Prescriptions: No Action Emgality Pen 120 mg/mL pen injector 120 mg subcut QMONTH Qty: 1 11RF Nurtec ODT 75 mg tablet,disintegrating 75 mg PO ONCE PRN (Reason: migraine headache) Qty: 10 3RF Rx Instructions: As a single dose. No more than one dose in 24 hours. sumatriptan succinate 100 mg tablet See Rx Instructions PO .COMPLEX Qty: 9 5RF Rx Instructions: take 1 tab at onset of headache; if no relief, may repeat 1 tab after at least 2 hrs; max = 2 tabs/24 hrs PO chlorhexidine gluconate [Peridex] 0.12 % mouthwash 15 ml mucous membrane BID Qty: 473 5RF Rx Instructions: rinse and spit twice a day Claritin Liqui-Gel 10 MG capsule 1 cap PO DAILY Qty: 90 prochlorperazine maleate 10 mg tablet See Rx Instructions .ROUTE .COMPLEX Qty: 20 2RF Dose Instruction: TAKE 1 TABLET BY MOUTH EVERY 8 HOURS NEEDED FOR NAUSEA AND VOMITING, HEADACHE Rx Instructions: TAKE 1 TABLET BY MOUTH EVERY 8 HOURS NEEDED FOR NAUSEA AND VOMITING, HEADACHE multivitamin Tablet 1 tab PO DAILY vitamin A 10,000 unit Capsule 10,000 unit PO DAILY metformin 500 mg tablet 1 tab PO BID omeprazole 20 mg capsule,delayed release(DR/EC) 40 mg PO DAILY clonazepam 0.5 mg tablet See Rx Instructions .ROUTE .COMPLEX Rx Instructions: 1 tab in AM, 1 tab at Noon and 2 tab QHS benztropine 0.5 MG tablet 0.5 mg PO BID aspirin,buffd-calcium carb-mag 325 MG tablet 325 mg PO DAILY Risperdal Consta 25 mg/2 mL suspension,extended rel recon 25 mg IM USEASDIRECTD Patient Comments: INJECT ONE SYRINGE INTRAMUSCULARLY ONCE EVERY TWO WEEKS Rx Instructions: every 2 weeks lactulose 10 gram/15 mL solution 20 g PO DIRECTED PRN Patient Comments: TAKE ONE TO TWO TABLESPOONS BY MOUTH NEEDED WHEN 3 DAYS PASS WITHOUT BOWEL MOVEMENT albuterol sulfate 90 mcg/actuation aerosol powdr breath activated 2 inh IH Q6H PRN (Reason: shortness of breath or wheezing) Qty: 1 0RF Nu-Mag 71.5 mg tablet,delayed release (DR/EC) 71.5 mg PO DAILY Qty: 20 0RF atenolol 50 mg tablet 75 mg PO DAILY Rx Instructions: To take with 25mg dose for TDD 75mg daily simvastatin 40 mg tablet 40 mg PO DAILY fluoxetine 40 mg capsule 80 mg PO DAILY Medical Decision Making Patient presenting to the emergency department via EMS for chief complaint of chest pain. He states approximately 90 minutes prior to arrival while resting in his chair he started having significant sharp chest pain radiating down his left arm. Patient denies any injury or trauma, cough, shortness of breath, fever or chills. Patient has significant past medical history of schizoaffective disorder, GERD, depression, hypertension, anemia, obesity, and diabetes. Physical exam is unremarkable for any acute findings and patient's vital signs are stable. Given patient's significant risk factors will check labs. Please see physician interpretation for full interpretation of EKG but upon my review patient is in sinus rhythm, no acute signs of STEMI, no significant change from previous EKG. CBC reviewed and patient has a chronic but stable anemia, sodium of 135, glucose 140 and low AST of 12, initial troponin is negative and although the labs are within normal range. We will perform delta troponin. Lab Data Lab results reviewed: Yes I reviewed the patient's lab results. HPI General Mode of arrival: EMS . Date/Time Provider Initiated Documentation: 03/14/23 14:09 . Limitations to Documentation: no limitations . Information obtained by: patient, EMS, RN notes reviewed and old records reviewed . History of Present Illness 58 year old M presents to the emergency department with the chief complaint of Chest pain, described as moderate, with intensity rated at 7. Quality is described as aching and sharp, and is localized to the chest. Patient extremity. Patient started experiencing this hour(s) (1) and it has been constant. No relieving factors improve symptom(s), No exacerbating factors reported . Patient did receive the following treatments prior to arrival, Aspirin Related Data Home Medications Medication Instructions Recorded Confirmed loratadine 10 mg capsule (Claritin 1 cap PO DAILY #90 tabs 12/16/14 03/14/23 Liqui-Gel) aspirin,buffered (calcium 325 mg PO DAILY 11/18/16 03/14/23 carbonate-magnesium) 325 mg tablet benztropine 0.5 mg tablet 0.5 mg PO BID 11/18/16 03/14/23 lactulose 10 gram/15 mL oral 20 g PO DIRECTED PRN 10/03/20 03/14/23 solution risperidone microspheres 25 mg/2 25 mg IM USEASDIRECTD 10/03/20 03/14/23 mL intramuscular susp,ext release (Risperdal Consta) albuterol sulfate 90 mcg/actuation 2 inh inhalation Q6H PRN shortness 12/15/20 03/14/23 breath activated powder inhaler of breath or wheezing #1 ea multivitamin 1 tab PO DAILY 01/26/21 03/14/23 vitamin A 3,000 mcg (10,000 unit) 10,000 unit PO DAILY 01/26/21 03/14/23 capsule chlorhexidine gluconate 0.12 % 15 ml mucous membrane BID dental 09/06/21 03/14/23 mouthwash (Peridex) problem #473 mL metformin 500 mg tablet 1 tab PO BID 03/18/22 03/14/23 omeprazole 20 mg capsule,delayed 40 mg PO DAILY 03/18/22 03/14/23 release magnesium chloride 71.5 mg 71.5 mg PO DAILY #20 tabs 09/05/22 03/14/23 (magnesium chloride) tablet,delayed release (Nu-Mag) atenolol 50 mg tablet 75 mg PO DAILY 09/26/22 03/14/23 simvastatin 40 mg tablet 40 mg PO DAILY 12/25/22 03/14/23 prochlorperazine maleate 10 mg See Rx Instructions .Route 01/08/23 03/14/23 tablet .COMPLEX #20 tabs clonazepam 0.5 mg tablet See Rx Instructions .Route .COMPLEX 03/04/23 03/14/23 fluoxetine 40 mg capsule 80 mg PO DAILY 03/08/23 03/14/23 galcanezumab-gnlm 120 mg/mL 120 mg subcut QMONTH #1 mL 03/08/23 03/14/23 subcutaneous pen injector (Emgality Pen) rimegepant 75 mg disintegrating 75 mg PO ONCE PRN migraine 03/08/23 03/14/23 tablet (Nurtec ODT) headache #10 tabs sumatriptan succinate 100 mg tablet See Rx Instructions PO .COMPLEX #9 03/08/23 03/14/23 tabs Previous Rx's Medication Instructions Recorded albuterol sulfate 90 mcg/actuation 2 inh inhalation Q6H PRN shortness 12/15/20 breath activated powder inhaler of breath or wheezing #1 ea chlorhexidine gluconate 0.12 % 15 ml mucous membrane BID dental 09/06/21 mouthwash (Peridex) problem #473 mL magnesium chloride 71.5 mg 71.5 mg PO DAILY #20 tabs 09/05/22 (magnesium chloride) tablet,delayed release (Nu-Mag) prochlorperazine maleate 10 mg See Rx Instructions .Route 01/08/23 tablet .COMPLEX #20 tabs galcanezumab-gnlm 120 mg/mL 120 mg subcut QMONTH #1 mL 03/08/23 subcutaneous pen injector (Emgality Pen) rimegepant 75 mg disintegrating 75 mg PO ONCE PRN migraine 03/08/23 tablet (Nurtec ODT) headache #10 tabs sumatriptan succinate 100 mg tablet See Rx Instructions PO .COMPLEX #9 03/08/23 tabs Allergies Allergy/AdvReac Type Severity Reaction Status Date / Time buspirone Allergy Verified 03/14/23 14:22 paliperidone Allergy Verified 03/14/23 14:22 paroxetine HCl [From Paxil] Allergy Verified 03/14/23 14:22 sertraline Allergy Verified 03/14/23 14:22 ziprasidone [From Geodon] Allergy Other (See Verified 03/14/23 14:22 Comment) aripiprazole [From Abilify] AdvReac Intermediate INVOLUNTARY Verified 03/14/23 14:22 MUSCLE MOVEMENTS divalproex sodium AdvReac Intermediate INVOLUNTARY Verified 03/14/23 14:22 [From Depakote] MUSCLE MOVEMENTS mirtazapine AdvReac Intermediate INVOLUNTARY Verified 03/14/23 14:22 MUSCLE MOVEMENTS risperidone AdvReac Intermediate INVOLUNTARY Verified 03/14/23 14:22 MUSCLE MOVEMENTS benztropine mesylate AdvReac elevated Verified 03/14/23 14:22 [From Cogentin] blood sugars enviornmental Allergy Mild Wheezing Uncoded 03/14/23 14:22 General Stated Complaint: Chest Pain CARLOS: 2 Review of Systems Constitutional Constitutional: Denies chills, Denies fever(s) and Denies malaise Cardiovascular Cardiovascular: Reports as per HPI, Reports chest pain, Denies chest pain with activity, Denies syncope, Denies irregular heart rhythm, Denies palpitations and Denies dyspnea Respiratory Respiratory: Denies cough, Denies hemoptysis and Denies dyspnea Gastrointestinal Gastrointestinal: Denies abdominal pain, Denies nausea and Denies vomiting Neurologic Neurologic: Denies syncope Psychiatric Psychiatric: Denies anxiety Endocrine Endocrine: Denies cold intolerance, Denies heat intolerance and Denies palpitations PFSH All Active Problems Schizoaffective disorder (Acute 09/07/14) Rebekah Mariscal [facility] 09/2014- [facility] inpatient Hypothyroidism (acquired) (Acute 09/07/14) Hypercholesterolemia (Chronic 09/07/14) pt insists on lipitor 80 mg due to family hx GERD (gastroesophageal reflux disease) (Acute 09/07/14) Diabetes mellitus type 2 in obese (Acute 09/09/14) Depression (Acute 10/02/14) Left-sided chest wall pain (Acute) Hypertension (Chronic) pt requests brand name Tenormin vs atenolol 04/02/18 Chest pain (Acute) Chronic headache (Acute) Migraine headache without aura (Acute) Migraine (Chronic) Obesity (Chronic) BMI 52 Poor dentition (Acute) Tobacco use disorder (Chronic) started 2013 1.5 ppd, pipe 1-7/week, QUIT LATE OCT 2021 Allergic rhinitis (Chronic) lortadine Hiatal hernia (Chronic) protonix not effective, nexium works better 02/12/18 Anemia (Chronic) Broken teeth (Chronic) Drug-seeking behavior (Chronic ~09/20/21) Requests Ritalin from providers Medication overuse headache (Acute) Chest pain (Acute) Atypical chest pain (Acute) Medical History Anxiety Dental caries Hyperlipidemia Mitral valve prolapse Peripheral neuropathy Trigeminal neuralgia Surgical History No significant past surgical history Family History Father Heart disease [place] Social History Smoking/Tobacco Use Status: Current every day Tobacco Type: cigarettes, pipe Years: 8 Other: States equivalent to 1.5 packs cigarettes and cigars Smoking risk assessment performed?: Yes Alcohol Intake: never Drug use: Never Substance use type: does not use Adopted: No Caregiver/Support person: No Foster care: No Household members: none Housing: apartment Number of Children: 2 number of grandchildren: 1 Communication Needs: Corrective Lenses Education Level: college Do you need help understanding health information?: Always current occupation: Unemployed/Leave of absence Sexually active: No Do you think of yourself as: Decline to provide Current gender identity: male What type of physical activity do you participate in: other Details: weight lifting Frequency: 3-4 times per week Magalie/Denominational: [employer]ology Seatbelt use: always Drive intox or ride w/intox transit 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 Exam Const General: cooperative, healthy appearing, comfortable, no acute distress, not diaphoretic and not ill appearing Nutritional Appearance: average body habitus Orientation: alert, awake and oriented x3 Limitations: mental status not altered Neck Neck: normal visual inspection, full ROM, trachea midline, supple and no anterior neck swelling Chest Chest: normal inspection of the chest Resp Effort & Inspection: normal respiratory effort and able to speak in complete sentences Auscultation: clear to auscultation bilaterally Cardio Jugular venous pressure: no JVD Palpation: normal PMI Rate: regular rate Rhythm: regular rhythm Heart Sounds: S1 normal, S2 normal, no click, no gallops, no murmurs and no rubs Bruits: no abdominal aortic bruits and no carotid bruits Pulses: radial pulses present bilaterally 2+ Skin General skin exam: no rashes or lesions noted Neuro General: patient alert, patient awake, patient oriented x3, tone normal and moves all extremities Extrem General: no pedal edema Sign Out Sign Out Data: Sign Out Comment: Patient pending delta troponin but suspect discharge disposition. Last updated by Karlos Vasquez NP at 03/14/23 15:38
[2023-03-14 14:20] VITALS: BP 115/73; PULSE 65; RESP 18; TEMP 36.7; O2SAT 97
[2023-03-14 14:41] VITALS: RESP 15
[2023-03-14 14:43] LABS: Abs Immature Grans 0.04 10^3/uL (0.0-0.06); Absolute Basophil Count 0.02 10^3/uL (0.0-0.2); Absolute Eosinophil Count 0.45 10^3/uL (0.0-0.7); Absolute Lymphocyte Count 2.49 10^3/uL (1.2-3.4); Absolute Monocyte Count 0.52 10^3/uL (0.1-0.8); Absolute Neutrophil Count 4.77 10^3/uL (1.2-6.7); Basophils % 0.2; Eosinophils % 5.4; HCT 34.4 % (40.0-50.0); HGB 11.8 g/dL (13.5-17.5); Immature Grans % 0.5; MCH 29.9 pg (27.0-33.0); MCHC 34.3 % (32.0-36.0); MCV 87 fL (80-95); MPV 8.3 fL (8.0-11.0); Monocytes % 6.3; Neutrophils % 57.6; Platelet Count 162 10^3/uL (130-400); RBC 3.94 10^6/uL (4.36-5.78); RDW 11.9 % (11.8-14.1); RDW-SD 37.9 fL; WBC 8.29 10^3/uL (4.4-10.8)
[2023-03-14 15:01] LABS: ALT 24 U/L (16-63); AST 12 U/L (15-37); Albumin 3.4 g/dL (3.4-5.0); Alkaline Phosphatase 83 U/L (46-116); Anion Gap 5.3 mmol/L (3-11); BUN 8 mg/dL (7-18); Bilirubin, Total 0.4 mg/dL (0.2-1.0); CO2 30.7 mmol/L (21.0-32.0); CREATININE 0.9 mg/dL (0.70-1.30); Calcium 8.6 mg/dL (8.5-10.1); Chloride 99 mmol/L (98-107); Glucose 140 mg/dL (74-106); Magnesium 1.8 mg/dL (1.8-2.4); Potassium 4.1 mmol/L (3.5-5.1); Sodium 135 mmol/L (136-145); Total Protein 7.6 g/dL (6.4-8.2); Troponin I < 50 ng/L (<or=60)
[2023-03-14 15:40] VITALS: BP 102/69; PULSE 64; TEMP 37; O2SAT 93
[2023-03-14 16:59] VITALS: BP 126/73; PULSE 61; TEMP 36.5; O2SAT 95
[2023-03-14 18:09] LABS: Troponin I < 50 ng/L (<or=60)
[2023-03-14 19:16] VITALS: BP 113/69; PULSE 62; RESP 16; TEMP 37.1; O2SAT 94
== END 2023-03-14 19:21 | disposition home or self-care (01) ==
PROVIDERS: Nurse Practitioner Family; Emergency Provider Nurse Practitioner Acute Care; PCP Family Medicine
DX: R07.9 Chest pain, unspecified (principal); K21.9 Gastro-esophageal reflux disease without esophagitis; F25.9 Schizoaffective disorder, unspecified; E11.69 Type 2 diabetes mellitus with other specified complication; I10 Essential (primary) hypertension
CPT/HCPCS: 36415; 80053; 93005; 99284; 83735; 84484; 85025; 93010

== ENCOUNTER 2023-03-28 07:02 | Emergency (ER) | payer MEDICAID, SELFPAY ==
--- NOTE | 2023-03-28 07:00 | RT.EKG_ITS ---
APPROVED REPORT Exam: Resting ECG Reason for Exam: chest pain Patient Location: E HR:72 bpm ECG Measurements Heart Rate 72 AXIS [place] 180 P 40 QRSd 106 QRS 23 QT 432 T 44 QTc 472 Conclusion Sinus rhythm...normal P axis, V-rate 60- 99
[2023-03-28 07:06] VITALS: BP 134/83; PULSE 75; RESP 18; O2SAT 97
[2023-03-28 07:08] VITALS: RESP 18
--- NOTE | 2023-03-28 07:37 | ED.GENADUL_ITS ---
Discharge Plan Disposition Patient Disposition: Home Discharge Details Clinical Impression: Left-sided chest wall pain Primary Care Provider: Brandon Foster ED Provider: Jose Cullen Meds and New Rx's Prescriptions: New naproxen [EC-Naproxen] 375 mg tablet,delayed release (DR/EC) 375 mg PO BID Qty: 30 0RF No Action Emgality Pen 120 mg/mL pen injector 120 mg subcut QMONTH Qty: 1 11RF Nurtec ODT 75 mg tablet,disintegrating 75 mg PO ONCE PRN (Reason: migraine headache) Qty: 10 3RF Rx Instructions: As a single dose. No more than one dose in 24 hours. sumatriptan succinate 100 mg tablet See Rx Instructions PO .COMPLEX Qty: 9 5RF Rx Instructions: take 1 tab at onset of headache; if no relief, may repeat 1 tab after at least 2 hrs; max = 2 tabs/24 hrs PO gabapentin 300 mg capsule 300 mg PO TID nicotine 21-14-7 mg/24 hr patch, TD daily, sequential 1 patch transdermal DAILY Qty: 56 0RF nicotine (polacrilex) 2 mg gum 2 mg buccal Q2H Qty: 100 1RF chlorhexidine gluconate [Peridex] 0.12 % mouthwash 15 ml mucous membrane BID Qty: 473 5RF Rx Instructions: rinse and spit twice a day Claritin Liqui-Gel 10 MG capsule 1 cap PO DAILY Qty: 90 prochlorperazine maleate 10 mg tablet See Rx Instructions .ROUTE .COMPLEX Qty: 20 2RF Dose Instruction: TAKE 1 TABLET BY MOUTH EVERY 8 HOURS NEEDED FOR NAUSEA AND VOMITING, HEADACHE Rx Instructions: TAKE 1 TABLET BY MOUTH EVERY 8 HOURS NEEDED FOR NAUSEA AND VOMITING, HEADACHE multivitamin Tablet 1 tab PO DAILY vitamin A 10,000 unit Capsule 10,000 unit PO DAILY metformin 500 mg tablet 1 tab PO BID omeprazole 20 mg capsule,delayed release(DR/EC) 40 mg PO DAILY clonazepam 0.5 mg tablet See Rx Instructions .ROUTE .COMPLEX Rx Instructions: 1 tab in AM, 1 tab at Noon and 2 tab QHS benztropine 0.5 MG tablet 0.5 mg PO BID aspirin,buffd-calcium carb-mag 325 MG tablet 325 mg PO DAILY Risperdal Consta 25 mg/2 mL suspension,extended rel recon 25 mg IM USEASDIRECTD Patient Comments: INJECT ONE SYRINGE INTRAMUSCULARLY ONCE EVERY TWO WEEKS Rx Instructions: every 2 weeks lactulose 10 gram/15 mL solution 20 g PO DIRECTED PRN Patient Comments: TAKE ONE TO TWO TABLESPOONS BY MOUTH NEEDED WHEN 3 DAYS PASS WITHOUT BOWEL MOVEMENT albuterol sulfate 90 mcg/actuation aerosol powdr breath activated 2 inh IH Q6H PRN (Reason: shortness of breath or wheezing) Qty: 1 0RF atenolol 50 mg tablet 75 mg PO DAILY Rx Instructions: To take with 25mg dose for TDD 75mg daily simvastatin 40 mg tablet 80 mg PO DAILY fluoxetine 40 mg capsule 80 mg PO DAILY Discharge Instructions Instructions: Chest Wall Pain (ED) Discharge Data Discharge Physician: Jose Cullen Medical Decision Making Patient presents to the emergency department complaint pleuritic type chest pain cough nonproductive sputum on physical exam his lungs are clear heart examination is normal EKG was done which is unchanged from the previous 1. Patient has had many tests done and this is noncardiac so he will be discharged home on Naprosyn for pleuritic type chest pain Differential Diagnosis Differential Diagnosis: 1. Atypical chest pain 2. Pleurisy 3. Acute coronary syndrome Medical Records Medical records reviewed: Yes I reviewed the patient's medical records. ECG Data Attestation: I personally reviewed and interpreted this ECG (s) as follows: Prior ECG tracings: available for review Interpretation: Normal sinus rhythm heart rate [address]-T changes normal axis unchanged from the previous EKG HPI General Date/Time Provider Initiated Documentation: 03/28/23 07:37 . HPI Narrative: Patient presents to the emergency department complaining of left-sided pleuritic type chest pain which she says is worse when he takes a deep breath associated with cough nonproductive sputum but denies any shortness of breath. Reports the pain is a sharp pain that radiates from his left anterior to the left posterior chest wall every time he takes a deep breath or coughs. Patient comes frequently to the emergency department and has had multiple visits. Related Data Home Medications Medication Instructions Recorded Confirmed loratadine 10 mg capsule (Claritin 1 cap PO DAILY #90 tabs 12/16/14 03/28/23 Liqui-Gel) aspirin,buffered (calcium 325 mg PO DAILY 11/18/16 03/28/23 carbonate-magnesium) 325 mg tablet benztropine 0.5 mg tablet 0.5 mg PO BID 11/18/16 03/28/23 lactulose 10 gram/15 mL oral 20 g PO DIRECTED PRN 10/03/20 03/28/23 solution risperidone microspheres 25 mg/2 25 mg IM USEASDIRECTD 10/03/20 03/28/23 mL intramuscular susp,ext release (Risperdal Consta) albuterol sulfate 90 mcg/actuation 2 inh inhalation Q6H PRN shortness 12/15/20 03/28/23 breath activated powder inhaler of breath or wheezing #1 ea multivitamin 1 tab PO DAILY 01/26/21 03/28/23 vitamin A 3,000 mcg (10,000 unit) 10,000 unit PO DAILY 01/26/21 03/28/23 capsule chlorhexidine gluconate 0.12 % 15 ml mucous membrane BID dental 09/06/21 0 03/28/23 mouthwash (Peridex) problem #473 mL metformin 500 mg tablet 1 tab PO BID 03/18/22 03/28/23 omeprazole 20 mg capsule,delayed 40 mg PO DAILY 03/18/22 03/28/23 release atenolol 50 mg tablet 75 mg PO DAILY 09/26/22 03/28/23 prochlorperazine maleate 10 mg See Rx Instructions .Route 01/08/23 03/28/23 tablet .COMPLEX #20 tabs clonazepam 0.5 mg tablet See Rx Instructions .Route .COMPLEX 03/04/23 03/28/23 fluoxetine 40 mg capsule 80 mg PO DAILY 03/08/23 03/28/23 galcanezumab-gnlm 120 mg/mL 120 mg subcut QMONTH #1 mL 03/08/23 03/28/23 subcutaneous pen injector (Emgality Pen) rimegepant 75 mg disintegrating 75 mg PO ONCE PRN migraine 03/08/23 03/28/23 tablet (Nurtec ODT) headache #10 tabs sumatriptan succinate 100 mg tablet See Rx Instructions PO .COMPLEX #9 03/08/23 03/28/23 tabs gabapentin 300 mg capsule 300 mg PO TID 03/27/23 03/28/23 nicotine (polacrilex) 2 mg gum 2 mg buccal Q2H #100 ea 03/27/23 03/28/23 nicotine 1 patch transdermal DAILY #56 03/27/23 03/28/23 21mg/24hr-14mg/24hr-7mg/24hr daily patches transderm patches,sequentl simvastatin 40 mg tablet 80 mg PO DAILY 03/27/23 03/28/23 naproxen 375 mg tablet,delayed 375 mg PO BID #30 tabs 03/28/23 release (EC-Naproxen) Previous Rx's Medication Instructions Recorded albuterol sulfate 90 mcg/actuation 2 inh inhalation Q6H PRN shortness 12/15/20 breath activated powder inhaler of breath or wheezing #1 ea chlorhexidine gluconate 0.12 % 15 ml mucous membrane BID dental 09/06/21 mouthwash (Peridex) problem #473 mL prochlorperazine maleate 10 mg See Rx Instructions .Route 01/08/23 tablet .COMPLEX #20 tabs galcanezumab-gnlm 120 mg/mL 120 mg subcut QMONTH #1 mL 03/08/23 subcutaneous pen injector (Emgality Pen) rimegepant 75 mg disintegrating 75 mg PO ONCE PRN migraine 03/08/23 tablet (Nurtec ODT) headache #10 tabs sumatriptan succinate 100 mg tablet See Rx Instructions PO .COMPLEX #9 03/08/23 tabs nicotine (polacrilex) 2 mg gum 2 mg buccal Q2H #100 ea 03/27/23 nicotine 1 patch transdermal DAILY #56 03/27/23 21mg/24hr-14mg/24hr-7mg/24hr daily patches transderm patches,sequentl naproxen 375 mg tablet,delayed 375 mg PO BID #30 tabs 03/28/23 release (EC-Naproxen) Allergies Allergy/AdvReac Type Severity Reaction Status Date / Time buspirone Allergy Verified 03/28/23 07:08 paliperidone Allergy Verified 03/28/23 07:08 paroxetine HCl [From Paxil] Allergy Verified 03/28/23 07:08 sertraline Allergy Verified 03/28/23 07:08 ziprasidone [From Geodon] Allergy Other (See Verified 03/28/23 07:08 Comment) aripiprazole [From Abilify] AdvReac Intermediate INVOLUNTARY Verified 03/28/23 07:08 MUSCLE MOVEMENTS divalproex sodium AdvReac Intermediate INVOLUNTARY Verified 03/28/23 07:08 [From Depakote] MUSCLE MOVEMENTS mirtazapine AdvReac Intermediate INVOLUNTARY Verified 03/28/23 07:08 MUSCLE MOVEMENTS risperidone AdvReac Intermediate INVOLUNTARY Verified 03/28/23 07:08 MUSCLE MOVEMENTS benztropine mesylate AdvReac elevated Verified 03/28/23 07:08 [From Cogentin] blood sugars enviornmental Allergy Mild Wheezing Uncoded 03/28/23 07:08 General Stated Complaint: Chest Pain CARLOS: 3 Review of Systems All systems reviewed & are unremarkable except as noted in HPI and below Constitutional Constitutional: Reports as per HPI Eyes Eyes: Reports system reviewed and no additional complaints, except as documented ENT Ears, Nose, Mouth, and Throat: Reports system reviewed and no additional complaints, except as documented Cardiovascular Cardiovascular: Reports system reviewed and no additional complaints, except as documented Respiratory Respiratory: Reports system reviewed and no additional complaints, except as documented, Reports chest congestion and Reports cough Gastrointestinal Gastrointestinal: Reports system reviewed and no additional complaints, except as documented Musculoskeletal Musculoskeletal: Reports system reviewed and no additional complaints, except as documented Neurologic Neurologic: Reports system reviewed and no additional complaints, except as documented Psychiatric Psychiatric: Reports anxiety and Reports difficulty concentrating PFSH All Active Problems (Updated 03/28/23 @ 08:24 by Jose Cullen MD) Nicotine dependence (Acute) Dyspnea on exertion (Acute) Shortness of breath (Acute) Schizoaffective disorder (Acute 09/07/14) Rebekah Mariscal [facility] 09/2014- [facility] inpatient Hypothyroidism (acquired) (Acute 09/07/14) Hypercholesterolemia (Chronic 09/07/14) pt insists on lipitor 80 mg due to family hx GERD (gastroesophageal reflux disease) (Acute 09/07/14) Diabetes mellitus type 2 in obese (Acute 09/09/14) Depression (Acute 10/02/14) Left-sided chest wall pain (Acute) Hypertension (Chronic) pt requests brand name Tenormin vs atenolol 04/02/18 Chest pain (Acute) Chronic headache (Acute) Migraine headache without aura (Acute) Migraine (Chronic) Obesity (Chronic) BMI 52 Poor dentition (Acute) Tobacco use disorder (Chronic) started 2013 1.5 ppd, pipe 1-7/week, QUIT LATE OCT 2021 Allergic rhinitis (Chronic) lortadine Hiatal hernia (Chronic) protonix not effective, nexium works better 02/12/18 Anemia (Chronic) Broken teeth (Chronic) Drug-seeking behavior (Chronic ~09/20/21) Requests Ritalin from providers Medication overuse headache (Acute) Atypical chest pain (Acute) Medical History Anxiety Dental caries Hyperlipidemia Mitral valve prolapse Peripheral neuropathy Trigeminal neuralgia Surgical History No significant past surgical history Family History Father Heart disease [place] Social History Smoking/Tobacco Use Status: Current every day Tobacco Type: cigarettes, pipe Years: 8 Other: States equivalent to 1.5 packs cigarettes and cigars Smoking risk assessment performed?: Yes Alcohol Intake: never Drug use: Never Substance use type: does not use Adopted: No Caregiver/Support person: No Foster care: No Household members: none Housing: apartment Number of Children: 2 number of grandchildren: 1 Communication Needs: Corrective Lenses Education Level: college Do you need help understanding health information?: Always current occupation: Unemployed/Leave of absence Sexually active: No Do you think of yourself as: Decline to provide Current gender identity: male What type of physical activity do you participate in: other Details: weight lifting Frequency: 3-4 times per week Magalie/Muslim: Zoroastrianism Seatbelt use: always 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 Exam Narrative Exam Narrative: Exam; vitals signs as reported above Constitutional; In no acute distress, afebrile General: cooperative, healthy appearing, comfortable and no acute distress HENMT: Head: normal to inspection, no palpable skull fracture and normocephalic Eyes: l: appearance normal, both eyes and all related structures Pupils: PERRL EOM: EOM intact bilaterally Direct ophthalmoscopy: normal light reflex, normal conjunctiva, normal visual acuity Neck no JVD, supple Neck: normal visual inspection, full ROM and no lymphadenopathy Chest Chest: normal inspection of the chest Respiratory : normal respiratory effort and able to speak in complete sentences Cardio Rate: regular rate Rhythm: regular rhythm normal heart sounds S1 and S2 6 systolic murmur, gallops, or rubs GI Inspection: normal to inspection, normal bowel sounds, soft, non tender, non distended, no organomegally Back/Spine/ no CVA tenderness Thoracic/Lumbar Spine: no tenderness or deformities Skin no rashes or lesions Neuro: patient alert and no meningeal signs, Cranial Nerves: CN's II-XI intact bilaterally, Cognition: normal cognition, Speech: speech normal, Gait: normal gait, Depp tendon reflexes normal 2+ Extremities, no edema, full range of motion, normal strength Course Vital Signs Vital signs: Vital Signs Pulse 75 03/28/23 07:06 Respiratory Rate 18 03/28/23 07:06 Blood Pressure 134/83 03/28/23 07:06 Pulse Oximetry 97 03/28/23 07:06 Pulse 75 03/28/23 07:06 Respiratory Rate 18 03/28/23 07:08 Respiratory Effort Normal 03/28/23 07:08 Respiratory Depth Normal 03/28/23 07:08 Respiratory Pattern Normal 03/28/23 07:08 Blood Pressure 134/83 03/28/23 07:06 Blood Pressure Position Sitting 03/28/23 07:06 Pulse Oximetry 97 03/28/23 07:06 Oxygen Delivery Method Room Air 03/28/23 07:06 Oxygen Flow Rate 0 03/28/23 07:06 Pain Level 8 03/28/23 07:06
== END 2023-03-28 08:52 | disposition home or self-care (01) ==
PROVIDERS: Emergency Provider Emergency Medicine Emergency Medical Services; PCP Family Medicine
DX: R07.89 Other chest pain (principal)
CPT/HCPCS: 93005; 99283; 93010; 99284

== ENCOUNTER 2023-04-09 03:47 | Outpatient (CLI) | payer MEDICAID, SELFPAY ==
[2023-04-09] MEDS: Albuterol HFA 18 GM 200 PUFF INH IH (13:49)
[2023-04-09] MEDS: Inhaler, Assist Device 1 EACH MC (13:50)
--- NOTE | 2023-04-10 07:26 | W.PFT ---
Date of service: 04/09/23 Time of Service: 13:01 Pulmonary Function Test Result Indications: Dyspnea on exertion Interpretation Spirometry: There is no airflow limitation. There is no significant bronchodilator response. The FVC is low. Lung Volumes: There is air trapping. Diffusion Capacity: Normal diffusion Airway Pressure: Normal airways resistance Impression Low FVC is likely pseudo-restriction from obesity. Air trapping is present, but no airflow obstruction is seen. This pattern may be see in asthma. Clinical Correlation therefore is recommended.
== END 2023-04-09 03:48 | disposition home or self-care (01) ==
LOC: RT 03:47
PROVIDERS: PCP Family Medicine; Visit Provider Physician Assistant Surgical
DX: R06.02 Shortness of breath (principal)
CPT/HCPCS: 94060; 94726; 94729

== ENCOUNTER 2023-04-30 00:27 | Emergency (ER) | payer MEDICAID, SELFPAY ==
[2023-04-30] VITALS (14 sets, daily range): BP systolic 130; BP diastolic 83; PULSE 73–74; RESP 10–25; TEMP 36.1; O2SAT 96–98
--- NOTE | 2023-04-30 00:30 | RT.EKG_ITS ---
APPROVED REPORT Exam: Resting ECG Reason for Exam: chest pain Patient Location: E HR:70 bpm ECG Measurements Heart Rate 70 AXIS VA 176 P 52 QRSd 100 QRS 34 QT 434 T 61 QTc 467 Conclusion Sinus rhythm...normal P axis, V-rate 60- 99
--- NOTE | 2023-04-30 00:30 | DI.RAD_ITS ---
Exam(s) XR CHEST 2V PA LATERAL EXAM: XR CHEST 2V PA LATERAL CLINICAL HISTORY: chest pain TECHNIQUE: 2D digital imaging was performed of the chest. Two images were obtained. PA and lateral views were obtained. COMPARISON: CR XR CHEST 2V PA LATERAL from 02/28/2023 FINDINGS: MEDIASTINUM: Normal. HEART: Normal. PULMONARY VASCULATURE: Normal. LUNGS: Clear. PLEURAL SPACE: No pleural effusion or pneumothorax. BONE:Within normal limits for the patient's age. OTHER FINDINGS:Normal. IMPRESSION: No acute pulmonary findings. DATA REPOSITORY: RADIATION DOSE DELIVERED:
--- NOTE | 2023-04-30 00:40 | W.ED.GENAD ---
Discharge Plan Disposition Patient Disposition: Home Discharge Details Clinical Impression: Left-sided chest wall pain, Atypical chest pain Primary Care Provider: Brandon Foster ED Provider: Paramjit Ramos Home Meds and New Rx's Prescriptions: Continued Emgality Pen 120 mg/mL pen injector 120 mg subcut QMONTH Qty: 1 11RF Nurtec ODT 75 mg tablet,disintegrating 75 mg PO ONCE PRN (Reason: migraine headache) Qty: 10 3RF Rx Instructions: As a single dose. No more than one dose in 24 hours. sumatriptan succinate 100 mg tablet See Rx Instructions PO .COMPLEX Qty: 9 5RF Rx Instructions: take 1 tab at onset of headache; if no relief, may repeat 1 tab after at least 2 hrs; max = 2 tabs/24 hrs PO gabapentin 300 mg capsule 300 mg PO TID nicotine 21-14-7 mg/24 hr patch, TD daily, sequential 1 patch transdermal DAILY Qty: 56 0RF nicotine (polacrilex) 2 mg gum 2 mg buccal Q2H Qty: 100 1RF Claritin Liqui-Gel 10 MG capsule 1 cap PO DAILY Qty: 90 prochlorperazine maleate 10 mg tablet See Rx Instructions .ROUTE .COMPLEX Qty: 20 2RF Dose Instruction: TAKE 1 TABLET BY MOUTH EVERY 8 HOURS NEEDED FOR NAUSEA AND VOMITING, HEADACHE Rx Instructions: TAKE 1 TABLET BY MOUTH EVERY 8 HOURS NEEDED FOR NAUSEA AND VOMITING, HEADACHE nicotine (polacrilex) 4 mg gum 4 mg buccal Q2H Qty: 100 2RF multivitamin Tablet 1 tab PO DAILY metformin 500 mg tablet 1 tab PO BID omeprazole 20 mg capsule,delayed release(DR/EC) 40 mg PO DAILY clonazepam 0.5 mg tablet See Rx Instructions .ROUTE .COMPLEX Rx Instructions: 1 tab in AM, 1 tab at Noon and 2 tab QHS benztropine 0.5 MG tablet 0.5 mg PO BID aspirin,buffd-calcium carb-mag 325 MG tablet 325 mg PO DAILY Risperdal Consta 25 mg/2 mL suspension,extended rel recon 25 mg IM USEASDIRECTD Patient Comments: INJECT ONE SYRINGE INTRAMUSCULARLY ONCE EVERY TWO WEEKS Rx Instructions: every 2 weeks lactulose 10 gram/15 mL solution 20 g PO DIRECTED PRN Patient Comments: TAKE ONE TO TWO TABLESPOONS BY MOUTH NEEDED WHEN 3 DAYS PASS WITHOUT BOWEL MOVEMENT albuterol sulfate 90 mcg/actuation aerosol powdr breath activated 2 inh IH Q6H PRN (Reason: shortness of breath or wheezing) Qty: 1 0RF atenolol 50 mg tablet 75 mg PO DAILY Rx Instructions: To take with 25mg dose for TDD 75mg daily simvastatin 40 mg tablet 80 mg PO DAILY fluoxetine 40 mg capsule 80 mg PO DAILY Discharge Instructions Instructions: Chest Pain (ED) Additional Instructions: You were seen in the emergency department for chest pain. We performed labs, an EKG, and a chest x-ray that were all unremarkable. Your symptoms had improved. The exact cause your symptoms is not known. You should return straight back to the emergency department for any worsening chest pain, shortness of breath, or any other symptoms that are worrisome to you. Follow-up with your primary care doctor tomorrow to see if they would like to do additional testing. Continue your home medications. Referrals: Brandon Foster [Primary Care Provider] - 1 week Medical Decision Making 58-year-old gentleman presents with chest pain. Initial EKG is unremarkable with no ischemic changes. Will check cardiac enzymes though low suspicion for ACS and if unremarkable will not pursue the diagnosis further. We will get chest x-ray to look for pneumonia or pneumothorax. We will get broad labs to look for electrolyte or metabolic cause of the patient's symptoms. Patient has multiple visits for similar chest pain in the last year. Certainly he can follow-up with his primary care doctor if his testing today is unremarkable to discuss possible stress test or other cardiac testing such as a Holter monitor. Will await initial testing as above and reevaluate. 0144am Chest x-ray, labs, EKG unremarkable. Patient is symptom-free. Would like to leave. This seems reasonable and will discharge with return precautions and follow-up with his primary care. Medical Records Medical records reviewed: Yes I reviewed the patient's medical records. Imaging Data Radiologic Study: Imaging: X-Ray (chest) My impression: chest xray unremarkable Radiologist's impression: chest xray unremarkable. Lab Data Lab results reviewed: Yes I reviewed the patient's lab results. ECG Data Attestation: I personally reviewed and interpreted this ECG (s) as follows: Prior ECG tracings: available for review Interpretation: Normal sinus rhythm with heart rate in the 60s. Normal axis. Normal MD interval. No ST or T wave changes. Unchanged from prior EKG. HPI General Mode of arrival: EMS. Date/Time Provider Initiated Documentation: 04/30/23 00:32. Limitations to Documentation: no limitations. Information obtained by: patient and EMS. HPI Narrative: This is a 58-year-old male who presents with left-sided chest pain. Patient said it started about an hour and a half prior to arrival here. Left side of the chest and sharp and pressure in nature. Nonradiating. Associated with some nausea. Some shortness of breath. Has had this multiple times in the past and says this feels similar. No abdominal pain. No fevers or chills. No cough or other symptoms. He had taken Tylenol at home before calling EMS and EMS gave him 324 of aspirin. No other interventions. Related Data Home Medications Medication Instructions Recorded Confirmed loratadine 10 mg capsule (Claritin 1 cap PO DAILY #90 tabs 12/16/14 04/30/23 Liqui-Gel) aspirin,buffered (calcium 325 mg PO DAILY 11/18/16 04/30/23 carbonate-magnesium) 325 mg tablet benztropine 0.5 mg tablet 0.5 mg PO BID 11/18/16 04/30/23 lactulose 10 gram/15 mL oral 20 g PO DIRECTED PRN 10/03/20 04/30/23 solution risperidone microspheres 25 mg/2 25 mg IM USEASDIRECTD 10/03/20 04/30/23 mL intramuscular susp,ext release (Risperdal Consta) albuterol sulfate 90 mcg/actuation 2 inh inhalation Q6H PRN shortness 12/15/20 04/30/23 breath activated powder inhaler of breath or wheezing #1 ea multivitamin 1 tab PO DAILY 01/26/21 04/30/23 metformin 500 mg tablet 1 tab PO BID 03/18/22 04/30/23 omeprazole 20 mg capsule,delayed 40 mg PO DAILY 03/18/22 04/30/23 release atenolol 50 mg tablet 75 mg PO DAILY 09/26/22 04/30/23 prochlorperazine maleate 10 mg See Rx Instructions .Route 01/08/23 04/30/23 tablet .COMPLEX #20 tabs clonazepam 0.5 mg tablet See Rx Instructions .Route .COMPLEX 03/04/23 04/30/23 fluoxetine 40 mg capsule 80 mg PO DAILY 03/08/23 04/30/23 galcanezumab-gnlm 120 mg/mL 120 mg subcut QMONTH #1 mL 03/08/23 04/30/23 subcutaneous pen injector (Emgality Pen) rimegepant 75 mg disintegrating 75 mg PO ONCE PRN migraine 03/08/23 04/30/23 tablet (Nurtec ODT) headache #10 tabs sumatriptan succinate 100 mg tablet See Rx Instructions PO .COMPLEX #9 03/08/23 04/30/23 tabs gabapentin 300 mg capsule 300 mg PO TID 03/27/23 04/30/23 nicotine (polacrilex) 2 mg gum 2 mg buccal Q2H #100 ea 03/27/23 04/30/23 nicotine 1 patch transdermal DAILY #56 03/27/23 04/30/23 21mg/24hr-14mg/24hr-7mg/24hr daily patches transderm patches,sequentl simvastatin 40 mg tablet 80 mg PO DAILY 03/27/23 04/30/23 nicotine (polacrilex) 4 mg gum 4 mg buccal Q2H #100 ea 04/03/23 04/30/23 Previous Rx's Medication Instructions Recorded albuterol sulfate 90 mcg/actuation 2 inh inhalation Q6H PRN shortness 12/15/20 breath activated powder inhaler of breath or wheezing #1 ea prochlorperazine maleate 10 mg See Rx Instructions .Route 01/08/23 tablet .COMPLEX #20 tabs galcanezumab-gnlm 120 mg/mL 120 mg subcut QMONTH #1 mL 03/08/23 subcutaneous pen injector (Emgality Pen) rimegepant 75 mg disintegrating 75 mg PO ONCE PRN migraine 03/08/23 tablet (Nurtec ODT) headache #10 tabs sumatriptan succinate 100 mg tablet See Rx Instructions PO .COMPLEX #9 03/08/23 tabs nicotine (polacrilex) 2 mg gum 2 mg buccal Q2H #100 ea 03/27/23 nicotine 1 patch transdermal DAILY #56 03/27/23 21mg/24hr-14mg/24hr-7mg/24hr daily patches transderm patches,sequentl nicotine (polacrilex) 4 mg gum 4 mg buccal Q2H #100 ea 04/03/23 Allergies Allergy/AdvReac Type Severity Reaction Status Date / Time buspirone Allergy Verified 04/30/23 00:33 paliperidone Allergy Verified 04/30/23 00:33 paroxetine HCl [From Paxil] Allergy Verified 04/30/23 00:33 sertraline Allergy Verified 04/30/23 00:33 ziprasidone [From Geodon] Allergy Other (See Verified 04/30/23 00:33 Comment) aripiprazole [From Abilify] AdvReac Intermediate INVOLUNTARY Verified 04/30/23 00:33 MUSCLE MOVEMENTS divalproex sodium AdvReac Intermediate INVOLUNTARY Verified 04/30/23 00:33 [From Depakote] MUSCLE MOVEMENTS mirtazapine AdvReac Intermediate INVOLUNTARY Verified 04/30/23 00:33 MUSCLE MOVEMENTS risperidone AdvReac Intermediate INVOLUNTARY Verified 04/30/23 00:33 MUSCLE MOVEMENTS benztropine mesylate AdvReac elevated Verified 04/30/23 00:33 [From Cogentin] blood sugars enviornmental Allergy Mild Wheezing Uncoded 04/30/23 00:33 General Stated Complaint: Chest Pain CARLOS: 2 Review of Systems Constitutional Constitutional: Denies chills, Denies fever(s) and Denies headache(s) Eyes Eyes: Denies change in vision ENT Ears, Nose, Mouth, and Throat: Denies headache(s) and Denies odynophagia Cardiovascular Cardiovascular: Reports chest pain and Reports dyspnea Respiratory Respiratory: Reports dyspnea Gastrointestinal Gastrointestinal: Denies abdominal pain, Denies diarrhea, Reports nausea, Denies odynophagia and Denies vomiting Genitourinary Genitourinary: Denies dysuria Musculoskeletal Musculoskeletal: Denies myalgias Integumentary/Breasts Skin/Breast: Denies changing lesions Neurologic Neurologic: Denies behavioral changes and Denies headache(s) Psychiatric Psychiatric: Denies behavioral changes Endocrine Endocrine: Denies heat intolerance Hematologic/Lymphatic Hematologic/Lymphatic: Denies lymphadenopathy PFSH All Active Problems (Updated 04/30/23 @ 01:45 by Paramjit Ramos MD) Atypical chest pain (Acute) Nicotine dependence (Acute) Dyspnea on exertion (Acute) Shortness of breath (Acute) Schizoaffective disorder (Acute 09/07/14) Rebekah Mariscal [facility] 09/2014- [facility] inpatient Hypothyroidism (acquired) (Acute 09/07/14) Hypercholesterolemia (Chronic 09/07/14) pt insists on lipitor 80 mg due to family hx GERD (gastroesophageal reflux disease) (Acute 09/07/14) Diabetes mellitus type 2 in obese (Acute 09/09/14) Depression (Acute 10/02/14) Left-sided chest wall pain (Acute) Hypertension (Chronic) pt requests brand name Tenormin vs atenolol 04/02/18 Chest pain (Acute) Chronic headache (Acute) Migraine headache without aura (Acute) Migraine (Chronic) Obesity (Chronic) BMI 52 Poor dentition (Acute) Tobacco use disorder (Chronic) started 2013 1.5 ppd, pipe 1-7/week, QUIT LATE OCT 2021 Allergic rhinitis (Chronic) lortadine Hiatal hernia (Chronic) protonix not effective, nexium works better 02/12/18 Anemia (Chronic) Broken teeth (Chronic) Drug-seeking behavior (Chronic ~09/20/21) Requests Ritalin from providers Medication overuse headache (Acute) Medical History Anxiety Dental caries Hyperlipidemia Mitral valve prolapse Peripheral neuropathy Trigeminal neuralgia Surgical History No significant past surgical history Family History Father Heart disease [place] Social History Smoking/Tobacco Use Status: Current every day Tobacco Type: cigarettes, pipe Years: 8 Other: States equivalent to 1.5 packs cigarettes and cigars Smoking risk assessment performed?: Yes Alcohol Intake: never Drug use: Never Substance use type: does not use Adopted: No Caregiver/Support person: No Foster care: No Household members: none Housing: apartment Number of Children: 2 number of grandchildren: 1 Communication Needs: Corrective Lenses Education Level: college Do you need help understanding health information?: Always current occupation: Unemployed/Leave of absence Sexually active: No Do you think of yourself as: Decline to provide Current gender identity: male What type of physical activity do you participate in: other Details: weight lifting Frequency: 3-4 times per week Magalie/Mu-Ism: Pentecostalism Seatbelt use: always Drive intox or ride w/intox river 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 Exam Const General: cooperative Nutritional Appearance: average body habitus Orientation: alert, awake and oriented x3 HENMT Head: normal to inspection Ears: external ears normal Mouth: moist mucous membranes Eyes Pupils: PERRL EOM: EOM intact bilaterally and No nystagmus Neck Neck: full ROM and no tracheal deviation Chest Chest: normal inspection of the chest Resp Auscultation: clear to auscultation bilaterally Cardio Rate: regular rate Rhythm: regular rhythm GI Inspection: normal to inspection Palpation: soft, no guarding, not rigid and nontender Back/Spine/Pelvis Back: No no CVA tenderness Thoracic/Lumbar Spine: thoracic and lumbar spine normal to inspection Skin General skin exam: no rashes or lesions noted Neuro General: patient alert, patient awake and patient oriented x3 Cranial Nerves: CN's II-XI intact bilaterally, PERRL and no nystagmus Cognition: normal cognition Motor: muscle tone normal throughout and strength 5/5 throughout Sensory Exam: no sensory deficits noted Extrem General: normal to inspection Course Vital Signs Vital signs: Vital Signs Temperature 36.1 C L 04/30/23 00:29 Pulse 73 04/30/23 00:29 Respiratory Rate 21 04/30/23 00:29 Blood Pressure 130/83 04/30/23 00:29 Pulse Oximetry 96 04/30/23 00:29 Temperature 36.1 C L 04/30/23 00:29 Temperature Source Temporal Artery Scan 04/30/23 00:29 Pulse 73 04/30/23 00:29 Respiratory Rate 17 04/30/23 00:36 Respiratory Effort Short of Breath 04/30/23 00:36 Respiratory Depth Normal 04/30/23 00:36 Respiratory Pattern Normal 04/30/23 00:36 Blood Pressure 130/83 04/30/23 00:29 Blood Pressure Position Sitting 04/30/23 00:29 Pulse Oximetry 96 04/30/23 00:29 Oxygen Delivery Method Room Air 04/30/23 00:29 Oxygen Flow Rate 0 04/30/23 00:29 Pain Level 7 04/30/23 00:29
--- NOTE | 2023-04-30 00:45 | NUR.NOTE ---
Nursing Note:BIBA from home, as per triage note pt able to stand and walk to ED cot, speaking full sentences, NARD. IV/Labs and EKG done pt still chewing on asa upon ED arrival
[2023-04-30 00:47] LABS: Abs Immature Grans 0.03 10^3/uL (0.0-0.06); Absolute Basophil Count 0.02 10^3/uL (0.0-0.2); Absolute Eosinophil Count 0.25 10^3/uL (0.0-0.7); Absolute Lymphocyte Count 1.93 10^3/uL (1.2-3.4); Absolute Monocyte Count 0.61 10^3/uL (0.1-0.8); Absolute Neutrophil Count 6.33 10^3/uL (1.2-6.7); Basophils % 0.2; Eosinophils % 2.7; HCT 33.2 % (40.0-50.0); HGB 11.5 g/dL (13.5-17.5); Immature Grans % 0.3; MCH 30.4 pg (27.0-33.0); MCHC 34.6 % (32.0-36.0); MCV 88 fL (80-95); MPV 8.5 fL (8.0-11.0); Monocytes % 6.7; Neutrophils % 69.1; Platelet Count 168 10^3/uL (130-400); RBC 3.78 10^6/uL (4.36-5.78); RDW 12.4 % (11.8-14.1); RDW-SD 39.4 fL; WBC 9.17 10^3/uL (4.4-10.8)
[2023-04-30 00:58] LABS: Lipase 11 U/L (16-77)
[2023-04-30 01:04] LABS: INR 0.9 (0.9-1.1); PTT Activated 24.5 sec (21.5-31.9); Prothrombin Time 9.4 sec (9.3-11.0)
[2023-04-30 01:16] LABS: ALT 21 U/L (16-63); AST 10 U/L (15-37); Albumin 3.2 g/dL (3.4-5.0); Alkaline Phosphatase 77 U/L (46-116); Anion Gap 5.7 mmol/L (3-11); BUN 11 mg/dL (7-18); Bilirubin, Total 0.3 mg/dL (0.2-1.0); CO2 30.3 mmol/L (21.0-32.0); CREATININE 0.9 mg/dL (0.70-1.30); Calcium 8.6 mg/dL (8.5-10.1); Chloride 96 mmol/L (98-107); Glucose 195 mg/dL (74-106); Magnesium 1.6 mg/dL (1.8-2.4); Potassium 4.3 mmol/L (3.5-5.1); Sodium 132 mmol/L (136-145); Total Protein 7.3 g/dL (6.4-8.2); Troponin I < 50 ng/L (<or=60)
--- NOTE | 2023-04-30 01:45 | DI.VRAD_ITS ---
PROCEDURE INFORMATION: Exam: XR Chest Exam date and time: 04/30/2023 1:29 AM Age: 58 years old Clinical indication: Other: Chest pain TECHNIQUE: Imaging protocol: Radiologic exam of the chest. Views: 2 views. COMPARISON: CR XR CHEST 2V PA LATERAL 02/28/2023 10:32 AM FINDINGS: Lungs: Unremarkable. No consolidation. Pleural spaces: Unremarkable. No pleural effusion. No pneumothorax. Heart/Mediastinum: Grossly stable. Bones/joints: Unremarkable. IMPRESSION: No acute findings. Dictated and Authenticated by: Henri Heck MD. Ordering:CARLA Yusuf MD
== END 2023-04-30 02:00 | disposition home or self-care (01) ==
PROVIDERS: Emergency Provider Student in an Organized Health Care Education/Training Program; PCP Family Medicine
DX: R07.89 Other chest pain (principal)
CPT/HCPCS: 36415; 80053; 83690; 93005; 99284; 71046; 83735; 84484; 85025; 85610; 85730; 93010

== ENCOUNTER 2023-05-03 09:56 | Emergency (ER) | payer MEDICAID, SELFPAY ==
--- NOTE | 2023-05-03 09:45 | RT.EKG_ITS ---
APPROVED REPORT Exam: Resting ECG Reason for Exam: chest pain Patient Location: E HR:79 bpm ECG Measurements Heart Rate 79 AXIS SC 184 P 26 QRSd 99 QRS 20 QT 425 T 41 QTc 486 Conclusion Sinus rhythm...normal P axis, V-rate 60- 99 sinus rhythm, normal axis, normal intervals, non ischemic
[2023-05-03 09:51] VITALS: BP 141/78; PULSE 79; RESP 20; TEMP 36.2; O2SAT 96
--- NOTE | 2023-05-03 10:54 | ED.GENADUL_ITS ---
Discharge Plan Disposition Patient Disposition: Home Condition: Improving Discharge Details Clinical Impression: Nausea Primary Care Provider: Brandon Foster ED Provider: Lb Cordero Home Meds and New Rx's Prescriptions: New ondansetron 4 mg tablet,disintegrating 4 mg PO Q8H PRNQty: 7 0RF No Action Emgality Pen 120 mg/mL pen injector 120 mg subcut QMONTH Qty: 1 11RF Nurtec ODT 75 mg tablet,disintegrating 75 mg PO ONCE PRN (Reason: migraine headache) Qty: 10 3RF Rx Instructions: As a single dose. No more than one dose in 24 hours. sumatriptan succinate 100 mg tablet See Rx Instructions PO .COMPLEX Qty: 9 5RF Rx Instructions: take 1 tab at onset of headache; if no relief, may repeat 1 tab after at least 2 hrs; max = 2 tabs/24 hrs PO gabapentin 300 mg capsule 300 mg PO TID nicotine 21-14-7 mg/24 hr patch, TD daily, sequential 1 patch transdermal DAILY Qty: 56 0RF nicotine (polacrilex) 2 mg gum 2 mg buccal Q2H Qty: 100 1RF Claritin Liqui-Gel 10 MG capsule 1 cap PO DAILY Qty: 90 prochlorperazine maleate 10 mg tablet See Rx Instructions .ROUTE .COMPLEX Qty: 20 2RF Dose Instruction: TAKE 1 TABLET BY MOUTH EVERY 8 HOURS NEEDED FOR NAUSEA AND VOMITING, H EADACHE Rx Instructions: TAKE 1 TABLET BY MOUTH EVERY 8 HOURS NEEDED FOR NAUSEA AND VOMITING, HEADACHE nicotine (polacrilex) 4 mg gum 4 mg buccal Q2H Qty: 100 2RF multivitamin Tablet 1 tab PO DAILY metformin 500 mg tablet 1 tab PO BID omeprazole 20 mg capsule,delayed release(DR/EC) 40 mg PO DAILY clonazepam 0.5 mg tablet See Rx Instructions .ROUTE .COMPLEX Rx Instructions: 1 tab in AM, 1 tab at Noon and 2 tab QHS benztropine 0.5 MG tablet 0.5 mg PO BID aspirin,buffd-calcium carb-mag 325 MG tablet 325 mg PO DAILY Risperdal Consta 25 mg/2 mL suspension,extended rel recon 25 mg IM USEASDIRECTD Patient Comments: INJECT ONE SYRINGE INTRAMUSCULARLY ONCE EVERY TWO WEEKS Rx Instructions: every 2 weeks lactulose 10 gram/15 mL solution 20 g PO DIRECTED PRN Patient Comments: TAKE ONE TO TWO TABLESPOONS BY MOUTH NEEDED WHEN 3 DAYS PASS WITHOUT BOWEL MOVEMENT albuterol sulfate 90 mcg/actuation aerosol powdr breath activated 2 inh IH Q6H PRN (Reason: shortness of breath or wheezing) Qty: 1 0RF atenolol 50 mg tablet 75 mg PO DAILY Rx Instructions: To take with 25mg dose for TDD 75mg daily simvastatin 40 mg tablet 80 mg PO DAILY fluoxetine 40 mg capsule 80 mg PO DAILY Medical Decision Making 58-year-old male history of recurrent ER visits for acute on chronic chest pain presents with resolved acute on chronic chest pain, associate with nausea this morning. Mild nausea currently without vomiting. Afebrile nontoxic no respiratory stress EKG nonischemic HPI General Date/Time Provider Initiated Documentation: 05/03/23 10:53 . HPI Narrative: 58-year-old male presents with nausea that began this morning no vomiting. Resolved acute on chronic chest pain. No shortness of breath. Related Data Home Medications Medication Instructions Recorded Confirmed loratadine 10 mg capsule (Claritin 1 cap PO DAILY #90 tabs 12/16/14 04/30/23 Liqui-Gel) aspirin,buffered (calcium 325 mg PO DAILY 11/18/16 04/30/23 carbonate-magnesium) 325 mg tablet benztropine 0.5 mg tablet 0.5 mg PO BID 11/18/16 04/30/23 lactulose 10 gram/15 mL oral 20 g PO DIRECTED PRN 10/03/20 04/30/23 solution risperidone microspheres 25 mg/2 25 mg IM USEASDIRECTD 10/03/20 04/30/23 mL intramuscular susp,ext release (Risperdal Consta) albuterol sulfate 90 mcg/actuation 2 inh inhalation Q6H PRN shortness 12/15/20 04/30/23 breath activated powder inhaler of breath or wheezing #1 ea multivitamin 1 tab PO DAILY 01/26/21 04/30/23 metformin 500 mg tablet 1 tab PO BID 03/18/22 04/30/23 omeprazole 20 mg capsule,delayed 40 mg PO DAILY 03/18/22 04/30/23 release atenolol 50 mg tablet 75 mg PO DAILY 09/26/22 04/30/23 prochlorperazine maleate 10 mg See Rx Instructions .Route 01/08/23 04/30/23 tablet .COMPLEX #20 tabs clonazepam 0.5 mg tablet See Rx Instructions .Route .COMPLEX 03/04/23 04/30/23 fluoxetine 40 mg capsule 80 mg PO DAILY 03/08/23 04/30/23 galcanezumab-gnlm 120 mg/mL 120 mg subcut QMONTH #1 mL 03/08/23 04/30/23 subcutaneous pen injector (Emgality Pen) rimegepant 75 mg disintegrating 75 mg PO ONCE PRN migraine 03/08/23 04/30/23 tablet (Nurtec ODT) headache #10 tabs sumatriptan succinate 100 mg tablet See Rx Instructions PO .COMPLEX #9 03/08/23 04/30/23 tabs gabapentin 300 mg capsule 300 mg PO TID 03/27/23 04/30/23 nicotine (polacrilex) 2 mg gum 2 mg buccal Q2H #100 ea 03/27/23 04/30/23 nicotine 1 patch transdermal DAILY #56 03/27/23 04/30/23 21mg/24hr-14mg/24hr-7mg/24hr daily patches transderm patches,sequentl simvastatin 40 mg tablet 80 mg PO DAILY 03/27/23 04/30/23 nicotine (polacrilex) 4 mg gum 4 mg buccal Q2H #100 ea 04/03/23 04/30/23 ondansetron 4 mg disintegrating 4 mg PO Q8H PRN #7 tabs 05/03/23 tablet Previous Rx's Medication Instructions Recorded albuterol sulfate 90 mcg/actuation 2 inh inhalation Q6H PRN shortness 12/15/20 breath activated powder inhaler of breath or wheezing #1 ea prochlorperazine maleate 10 mg See Rx Instructions .Route 01/08/23 tablet .COMPLEX #20 tabs galcanezumab-gnlm 120 mg/mL 120 mg subcut QMONTH #1 mL 03/08/23 subcutaneous pen injector (Emgality Pen) rimegepant 75 mg disintegrating 75 mg PO ONCE PRN migraine 03/08/23 tablet (Nurtec ODT) headache #10 tabs sumatriptan succinate 100 mg tablet See Rx Instructions PO .COMPLEX #9 03/08/23 tabs nicotine (polacrilex) 2 mg gum 2 mg buccal Q2H #100 ea 03/27/23 nicotine 1 patch transdermal DAILY #56 03/27/23 21mg/24hr-14mg/24hr-7mg/24hr daily patches transderm patches,sequentl nicotine (polacrilex) 4 mg gum 4 mg buccal Q2H #100 ea 04/03/23 ondansetron 4 mg disintegrating 4 mg PO Q8H PRN #7 tabs 05/03/23 tablet Allergies Allergy/AdvReac Type Severity Reaction Status Date / Time buspirone Allergy Verified 05/03/23 09:55 paliperidone Allergy Verified 05/03/23 09:55 paroxetine HCl [From Paxil] Allergy Verified 05/03/23 09:55 sertraline Allergy Verified 05/03/23 09:55 ziprasidone [From Geodon] Allergy Other (See Verified 05/03/23 09:55 Comment) aripiprazole [From Abilify] AdvReac Intermediate INVOLUNTARY Verified 05/03/23 09:55 MUSCLE MOVEMENTS divalproex sodium AdvReac Intermediate INVOLUNTARY Verified 05/03/23 09:55 [From Depakote] MUSCLE MOVEMENTS mirtazapine AdvReac Intermediate INVOLUNTARY Verified 05/03/23 09:55 MUSCLE MOVEMENTS risperidone AdvReac Intermediate INVOLUNTARY Verified 05/03/23 09:55 MUSCLE MOVEMENTS benztropine mesylate AdvReac elevated Verified 05/03/23 09:55 [From Cogentin] blood sugars enviornmental Allergy Mild Wheezing Uncoded 05/03/23 09:55 General Stated Complaint: Chest Pain CARLOS: 3 Review of Systems Narrative: Review of Systems Constitutional: negative Eyes: negative ENT: negative Cardiovascular: negative Respiratory: negative Gastrointestinal: Nausea : negative Musculoskeletal: negative Skin: negative Neurologic: negative Psych: negative PFSH All Active Problems (Updated 05/03/23 @ 10:56 by Lb Cordero MD) Atypical chest pain (Acute) Nausea (Acute) Nicotine dependence (Acute) Dyspnea on exertion (Acute) Shortness of breath (Acute) Schizoaffective disorder (Acute 09/07/14) Rebekah Mariscal [facility] 09/2014- [facility] Hypothyroidism (acquired) (Acute 09/07/14) Hypercholesterolemia (Chronic 09/07/14) pt insists on lipitor 80 mg due to family hx GERD (gastroesophageal reflux disease) (Acute 09/07/14) Diabetes mellitus type 2 in obese (Acute 09/09/14) Depression (Acute 10/02/14) Left-sided chest wall pain (Acute) Hypertension (Chronic) pt requests brand name Tenormin vs atenolol 04/02/18 Chest pain (Acute) Chronic headache (Acute) Migraine headache without aura (Acute) Migraine (Chronic) Obesity (Chronic) BMI 52 Poor dentition (Acute) Tobacco use disorder (Chronic) started 2013 1.5 ppd, pipe 1-7/week, QUIT LATE OCT 2021 Allergic rhinitis (Chronic) lortadine Hiatal hernia (Chronic) protonix not effective, nexium works better 02/12/18 Anemia (Chronic) Broken teeth (Chronic) Drug-seeking behavior (Chronic ~09/20/21) Requests Ritalin from providers Medication overuse headache (Acute) Medical History Anxiety Dental caries Hyperlipidemia Mitral valve prolapse Peripheral neuropathy Trigeminal neuralgia Surgical History No significant past surgical history Family History Father Heart disease [place] Social History Smoking/Tobacco Use Status: Current every day Tobacco Type: pipe Years: 8 Other: States equivalent to 1.5 packs cigarettes Smoking risk assessment performed?: Yes Alcohol Intake: never Drug use: Never Substance use type: does not use Adopted: No Caregiver/Support person: No Foster care: No Household members: none Housing: apartment Number of Children: 2 number of grandchildren: 1 Communication Needs: Corrective Lenses Education Level: college Do you need help understanding health information?: Always current occupation: Unemployed/Leave of absence Sexually active: No Do you think of yourself as: Decline to provide Current gender identity: male What type of physical activity do you participate in: other Details: weight lifting Frequency: 3-4 times per week Magalie/Adventist: [employer] Seatbelt use: always 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 Working smoke detector in home: Yes Fire extinguisher in home: Yes Carbon monox detector in home: Yes Do you feel safe at home: Yes (anxiety and depression) Do you feel safe in your relationship?: Yes Exam Narrative Exam Narrative: Physical Examination General: alert, awake, cooperative, resting comfortably, no acute distress HEENT: normocephalic, atraumatic; PERRL, EOM intact, conjunctiva normal; no nasal discharge; moist mucous membranes, oral and pharyngeal mucosa normal, tolerating secretions Neck: supple, trachea midline; full ROM Chest: normal to inspection Respiratory: normal respiratory effort, speaking in full sentences, clear to auscultation, no wheezing, rales or rhonchi Cardiac: regular rate, regular rhythm, S1S2 intact, no murmurs rubs or gallops GI: abdomen soft, non-tender, non-distended; no palpable mass or hepatosplenomegaly Skin: no lesions, rashes or trauma appreciated Neuro: AAOx3, normal speech, moving all extremities Psych: Appropriate mood and affect Course Vital Signs Vital signs: Vital Signs Temperature 36.2 C L 05/03/23 09:51 Pulse 79 05/03/23 09:51 Respiratory Rate 20 05/03/23 09:51 Blood Pressure 141/78 H 05/03/23 09:51 Pulse Oximetry 96 05/03/23 09:51 Temperature 36.2 C L 05/03/23 09:51 Pulse 79 05/03/23 09:51 Respiratory Rate 20 05/03/23 09:51 Respiratory Effort Normal, Non-Labored 05/03/23 09:55 Blood Pressure 141/78 H 05/03/23 09:51 Blood Pressure Position Sitting 05/03/23 09:51 Pulse Oximetry 96 05/03/23 09:51
[2023-05-03] MEDS: Ondansetron O.D.T. 4 MG TABEF SL (10:57)
[2023-05-03 10:59] VITALS: BP 142/80; PULSE 85; RESP 18; TEMP 36.8; O2SAT 99
== END 2023-05-03 11:08 | disposition home or self-care (01) ==
PROVIDERS: Emergency Provider Emergency Medicine; PCP Family Medicine
DX: R11.0 Nausea (principal); R07.9 Chest pain, unspecified
CPT/HCPCS: 93005; 99283; 93010; 99284

== ENCOUNTER 2023-05-12 11:06 | Emergency (ER) | payer MEDICAID, SELFPAY ==
--- NOTE | 2023-05-12 10:45 | RT.EKG_ITS ---
APPROVED REPORT Exam: Resting ECG Reason for Exam: syncope, chest pain Patient Location: E HR:70 bpm ECG Measurements Heart Rate 70 AXIS ME 182 P 41 QRSd 101 QRS 20 QT 410 T 71 QTc 444 Conclusion Sinus rhythm...normal P axis, V-rate 60- 99 Normal sinus rhythm at a rate of 78 with interventricular conduction delay. QTc within normal limits . Normal axis. T wave flattening in aVL. Appears similar to prior dated last week. No acute injur y pattern.
--- NOTE | 2023-05-12 11:00 | DI.RAD_ITS ---
Exam(s) XR PORTABLE CHEST AP EXAM: XR PORTABLE CHEST AP CLINICAL HISTORY: Syncope TECHNIQUE: 2D digital imaging was performed. COMPARISON: CR,XR XR CHEST 2V PA LATERAL from 04/30/2023 FINDINGS: LUNGS: Clear. No pleural abnormality seen. HEART: Normal size. AORTA: Normal diameter. BONES: Unremarkable for age. Soft tissues: Unremarkable. IMPRESSION: No acute findings. DATA REPOSITORY: RADIATION DOSE DELIVERED:
--- NOTE | 2023-05-12 11:05 | W.ED.GENAD ---
Discharge Plan Disposition Patient Disposition: Home Discharge Details Clinical Impression: Syncope, Normocytic anemia Primary Care Provider: Brandon Foster ED Provider: Avery Causey [place] Meds and New Rx's Prescriptions: Continued Emgality Pen 120 mg/mL pen injector 120 mg subcut QMONTH Qty: 1 11RF Nurtec ODT 75 mg tablet,disintegrating 75 mg PO ONCE PRN (Reason: migraine headache) Qty: 10 3RF Rx Instructions: As a single dose. No more than one dose in 24 hours. sumatriptan succinate 100 mg tablet See Rx Instructions PO .COMPLEX Qty: 9 5RF Rx Instructions: take 1 tab at onset of headache; if no relief, may repeat 1 tab after at least 2 hrs; max = 2 tabs/24 hrs PO gabapentin 300 mg capsule 300 mg PO TID nicotine 21-14-7 mg/24 hr patch, TD daily, sequential 1 patch transdermal DAILY Qty: 56 0RF nicotine (polacrilex) 2 mg gum 2 mg buccal Q2H Qty: 100 1RF Claritin Liqui-Gel 10 MG capsule 1 cap PO DAILY Qty: 90 prochlorperazine maleate 10 mg tablet See Rx Instructions .ROUTE .COMPLEX Qty: 20 2RF Dose Instruction: TAKE 1 TABLET BY MOUTH EVERY 8 HOURS NEEDED FOR NAUSEA AND VOMITING, HEADACHE Rx Instructions: TAKE 1 TABLET BY MOUTH EVERY 8 HOURS NEEDED FOR NAUSEA AND VOMITING, HEADACHE nicotine (polacrilex) 4 mg gum 4 mg buccal Q2H Qty: 100 2RF multivitamin Tablet 1 tab PO DAILY metformin 500 mg tablet 1 tab PO BID omeprazole 20 mg capsule,delayed release(DR/EC) 40 mg PO DAILY clonazepam 0.5 mg tablet See Rx Instructions .ROUTE .COMPLEX Rx Instructions: 1 tab in AM, 1 tab at Noon and 2 tab QHS ondansetron 4 mg tablet,disintegrating 4 mg PO Q8H PRNQty: 7 0RF benztropine 0.5 MG tablet 0.5 mg PO BID aspirin,buffd-calcium carb-mag 325 MG tablet 325 mg PO DAILY Risperdal Consta 25 mg/2 mL suspension,extended rel recon 25 mg IM USEASDIRECTD Patient Comments: INJECT ONE SYRINGE INTRAMUSCULARLY ONCE EVERY TWO WEEKS Rx Instructions: every 2 weeks lactulose 10 gram/15 mL solution 20 g PO DIRECTED PRN Patient Comments: TAKE ONE TO TWO TABLESPOONS BY MOUTH NEEDED WHEN 3 DAYS PASS WITHOUT BOWEL MOVEMENT albuterol sulfate 90 mcg/actuation aerosol powdr breath activated 2 inh IH Q6H PRN (Reason: shortness of breath or wheezing) Qty: 1 0RF atenolol 50 mg tablet 75 mg PO DAILY Rx Instructions: To take with 25mg dose for TDD 75mg daily simvastatin 40 mg tablet 80 mg PO DAILY fluoxetine 40 mg capsule 80 mg PO DAILY Discharge Instructions Instructions: Syncope (ED) Additional Instructions: Please read all of the information that accompanies these instructions. You were seen in the emergency department for your syncope. Your blood work shows no sign of damage to your heart. Please schedule an appointment with your primary care provider later this week. Please return to the emergency department if pass out again or if you develop any black or bloody stools.. Discharge Data Discharge Date/Time-TO BE ENTERED AT DEPARTURE: 05/12/23 12:13 Medical Decision Making This is a chronically ill-appearing normothermic and not tachycardic 58-year-old male with 2 episodes of syncope and multiple ED presentations. He has no murmur to suggest aortic stenosis. Echo from last month w/normal EF & no . No black or bloody stools and no history of anticoagulation to suggest GI bleed. No chest pain to suggest ACS. No hypoxia nor tachycardia to suggest PE. No nausea nor vomiting to suggest intra-abdominal infection. Will obtain CBC to assess for anemia. Will obtain troponin to assess for myocardial injury. Syncope was nonexertional. In the setting of syncope I considered: High risk features: 1. Age of the patient (elderly a greatest risk) 2. Syncope during exertion 3. Family history of sudden Clark syncope rule: 1. History of CHF 2. Hematocrit < 30 3. EKG abnormalities 4. Present shortness of breath 5. Systolic blood pressure less than 90 Cardiac arrhythmia/EKG or abnormalities considered: 1. ACS: No ST changes 2. Tachy-kirt: No blocks 3. WPW: No delta wave 4. Brugada: No RSR'; R-bundle appearance 5. HCM: No LVH; needle Qs/ T-wave inversions 6. Short/ Long QT: 300 < QTc < 500; no family hx 7. Arrhythmogenic Right Ventricular Dysplasia: No epsilon wave, no inverted Ts in anterior precordium 11:53 AM Negative troponin. Basic metabolic panel with no JESS. No significant electrolyte abnormalities. CBC with mild normocytic anemia improved compared to prior. No thrombocytopenia. No leukocytosis. Chronic conditions affecting the care of the patient: Obesity History obtained from an outside historian: Paramedics [place] [facility] [place] Diagnostic interpretations performed by me: [Per my independent interpretation chest x-ray shows:] No acute cardiopulmonary process Per my independent interpretation EKG shows: Normal sinus rhythm at a rate of 78 with interventricular conduction delay. QTc within normal limits. Normal axis. T wave flattening in aVL. Appears similar to prior dated last week. No acute injury pattern. Medications: Had not applicablea Social determinants of health affecting disposition: Multiple recent ED visits Management discussed with: N/A Treatment/interventions considered: Hospitalization but deferred to pursue an empiric trial of expectant outpatient management. Response to therapies provided: Not applicable HPI General Date/Time Provider Initiated Documentation: 05/12/23 11:13. HPI Narrative: This is a 58-year-old male with a history of obesity depression and type 2 diabetes now in the emergency department in the setting of 2 episodes of syncope this morning. Patient was resting on the couch when his episode of syncope occurred. He is not anticoagulated. He denies black or bloody stools. He is having no chest pain. No shortness of breath. He quit smoking several days ago. He has not taken any falls. Denies fevers chills nausea vomiting chest pain. He denies abdominal pain. He has never had a DVT nor a PE. He did not strike his head. Related Data Home Medications Medication Instructions Recorded Confirmed loratadine 10 mg capsule (Claritin 1 cap PO DAILY #90 tabs 12/16/14 04/30/23 Liqui-Gel) aspirin,buffered (calcium 325 mg PO DAILY 11/18/16 04/30/23 carbonate-magnesium) 325 mg tablet benztropine 0.5 mg tablet 0.5 mg PO BID 11/18/16 04/30/23 lactulose 10 gram/15 mL oral 20 g PO DIRECTED PRN 10/03/20 04/30/23 solution risperidone microspheres 25 mg/2 25 mg IM USEASDIRECTD 10/03/20 04/30/23 mL intramuscular susp,ext release (Risperdal Consta) albuterol sulfate 90 mcg/actuation 2 inh inhalation Q6H PRN shortness 12/15/20 04/30/23 breath activated powder inhaler of breath or wheezing #1 ea multivitamin 1 tab PO DAILY 01/26/21 04/30/23 metformin 500 mg tablet 1 tab PO BID 03/18/22 04/30/23 omeprazole 20 mg capsule,delayed 40 mg PO DAILY 03/18/22 04/30/23 release atenolol 50 mg tablet 75 mg PO DAILY 09/26/22 04/30/23 prochlorperazine maleate 10 mg See Rx Instructions .Route 01/08/23 04/30/23 tablet .COMPLEX #20 tabs clonazepam 0.5 mg tablet See Rx Instructions .Route .COMPLEX 03/04/23 04/30/23 fluoxetine 40 mg capsule 80 mg PO DAILY 03/08/23 04/30/23 galcanezumab-gnlm 120 mg/mL 120 mg subcut QMONTH #1 mL 03/08/23 04/30/23 subcutaneous pen injector (Emgality Pen) rimegepant 75 mg disintegrating 75 mg PO ONCE PRN migraine 03/08/23 04/30/23 tablet (Nurtec ODT) headache #10 tabs sumatriptan succinate 100 mg tablet See Rx Instructions PO .COMPLEX #9 03/08/23 04/30/23 tabs gabapentin 300 mg capsule 300 mg PO TID 03/27/23 04/30/23 nicotine (polacrilex) 2 mg gum 2 mg buccal Q2H #100 ea 03/27/23 04/30/23 nicotine 1 patch transdermal DAILY #56 03/27/23 04/30/23 21mg/24hr-14mg/24hr-7mg/24hr daily patches transderm patches,sequentl simvastatin 40 mg tablet 80 mg PO DAILY 03/27/23 04/30/23 nicotine (polacrilex) 4 mg gum 4 mg buccal Q2H #100 ea 04/03/23 04/30/23 ondansetron 4 mg disintegrating 4 mg PO Q8H PRN #7 tabs 05/03/23 tablet Previous Rx's Medication Instructions Recorded albuterol sulfate 90 mcg/actuation 2 inh inhalation Q6H PRN shortness 12/15/20 breath activated powder inhaler of breath or wheezing #1 ea prochlorperazine maleate 10 mg See Rx Instructions .Route 01/08/23 tablet .COMPLEX #20 tabs galcanezumab-gnlm 120 mg/mL 120 mg subcut QMONTH #1 mL 03/08/23 subcutaneous pen injector (Emgality Pen) rimegepant 75 mg disintegrating 75 mg PO ONCE PRN migraine 03/08/23 tablet (Nurtec ODT) headache #10 tabs sumatriptan succinate 100 mg tablet See Rx Instructions PO .COMPLEX #9 03/08/23 tabs nicotine (polacrilex) 2 mg gum 2 mg buccal Q2H #100 ea 03/27/23 nicotine 1 patch transdermal DAILY #56 03/27/23 21mg/24hr-14mg/24hr-7mg/24hr daily patches transderm patches,sequentl nicotine (polacrilex) 4 mg gum 4 mg buccal Q2H #100 ea 04/03/23 ondansetron 4 mg disintegrating 4 mg PO Q8H PRN #7 tabs 05/03/23 tablet Allergies Allergy/AdvReac Type Severity Reaction Status Date / Time buspirone Allergy Verified 05/03/23 09:55 paliperidone Allergy Verified 05/03/23 09:55 paroxetine HCl [From Paxil] Allergy Verified 05/03/23 09:55 sertraline Allergy Verified 05/03/23 09:55 ziprasidone [From Geodon] Allergy Other (See Verified 05/03/23 09:55 Comment) aripiprazole [From Abilify] AdvReac Intermediate INVOLUNTARY Verified 05/03/23 09:55 MUSCLE MOVEMENTS divalproex sodium AdvReac Intermediate INVOLUNTARY Verified 05/03/23 09:55 [From Depakote] MUSCLE MOVEMENTS mirtazapine AdvReac Intermediate INVOLUNTARY Verified 05/03/23 09:55 MUSCLE MOVEMENTS risperidone AdvReac Intermediate INVOLUNTARY Verified 05/03/23 09:55 MUSCLE MOVEMENTS benztropine mesylate AdvReac elevated Verified 05/03/23 09:55 [From Cogentin] blood sugars enviornmental Allergy Mild Wheezing Uncoded 05/03/23 09:55 General CARLOS: 3 PFSH All Active Problems (Updated 05/12/23 @ 11:57 by Avery Causey MD) Atypical chest pain (Acute) Nausea (Acute) Syncope (Chronic) Normocytic anemia (Acute) Nicotine dependence (Acute) Dyspnea on exertion (Acute) Shortness of breath (Acute) Schizoaffective disorder (Acute 09/07/14) Rebekah Mariscal [facility] 09/2014- [facility] inpatient Hypothyroidism (acquired) (Acute 09/07/14) Hypercholesterolemia (Chronic 09/07/14) pt insists on lipitor 80 mg due to family hx GERD (gastroesophageal reflux disease) (Acute 09/07/14) Diabetes mellitus type 2 in obese (Acute 09/09/14) Depression (Acute 10/02/14) Left-sided chest wall pain (Acute) Hypertension (Chronic) pt requests brand name Tenormin vs atenolol 04/02/18 Chest pain (Acute) Chronic headache (Acute) Migraine headache without aura (Acute) Migraine (Chronic) Obesity (Chronic) BMI 52 Poor dentition (Acute) Tobacco use disorder (Chronic) started 2013 1.5 ppd, pipe 1-7/week, QUIT LATE OCT 2021 Allergic rhinitis (Chronic) lortadine Hiatal hernia (Chronic) protonix not effective, nexium works better 02/12/18 Anemia (Chronic) Broken teeth (Chronic) Drug-seeking behavior (Chronic ~09/20/21) Requests Ritalin from providers Medication overuse headache (Acute) Medical History Anxiety Dental caries Hyperlipidemia Mitral valve prolapse Peripheral neuropathy Trigeminal neuralgia Surgical History No significant past surgical history Family History Father Heart disease MS Social History Smoking/Tobacco Use Status: Former Tobacco Use Smoking risk assessment performed?: Yes Alcohol Intake: never Drug use: Never Substance use type: does not use Adopted: No Caregiver/Support person: No Foster care: No Household members: none Housing: apartment Number of Children: 2 number of grandchildren: 1 Communication Needs: Corrective Lenses Education Level: college Do you need help understanding health information?: Always current occupation: Unemployed/Leave of absence Sexually active: No Do you think of yourself as: Decline to provide Current gender identity: male What type of physical activity do you participate in: other Details: weight lifting Frequency: 3-4 times per week Magalie/Orthodox: Hindu Seatbelt use: always Drive intox or ride w/intox transportation 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 Exam Narrative Exam Narrative: General: Well-appearing in no acute distress speaking in complete sentences. Head: Normocephalic, atraumatic. Eye: Extraocular eye movements intact. No conjunctival injection. No scleral icterus. Ear, nose, mouth, throat: Grossly normal inspection. Normal voice, handling secretions normally. Neck: Trachea midline. Cardiovascular: Well-perfused distal extremities. Regular rate and rhythm. Respiratory: Nonlabored respiration. Clear lungs bilaterally. Gastrointestinal: Nondistended abdomen. Soft nontender. Musculoskeletal: No edema. Moving all 4 extremities spontaneously. Skin: Normal for age and race, grossly normal temperature and turgor. No acute rash. Neurologic: Alert and appropriate, no apparent acute deficits. Psychiatric: Mood and manner are appropriate. Grooming and personal hygiene are appropriate.
[2023-05-12 11:07] VITALS: BP 130/77; PULSE 70; RESP 20; TEMP 36.1; O2SAT 98
[2023-05-12 11:20] VITALS: RESP 22
[2023-05-12 11:35] LABS: Abs Immature Grans 0.02 10^3/uL (0.0-0.06); Absolute Basophil Count 0.02 10^3/uL (0.0-0.2); Absolute Eosinophil Count 0.27 10^3/uL (0.0-0.7); Absolute Lymphocyte Count 1.47 10^3/uL (1.2-3.4); Absolute Monocyte Count 0.53 10^3/uL (0.1-0.8); Absolute Neutrophil Count 5.55 10^3/uL (1.2-6.7); Basophils % 0.3; Eosinophils % 3.4; HCT 34.8 % (40.0-50.0); HGB 11.9 g/dL (13.5-17.5); Immature Grans % 0.3; Lymphocytes % 18.7; MCH 29.9 pg (27.0-33.0); MCHC 34.2 % (32.0-36.0); MCV 87 fL (80-95); MPV 8.4 fL (8.0-11.0); Monocytes % 6.7; Neutrophils % 70.6; Platelet Count 172 10^3/uL (130-400); RBC 3.98 10^6/uL (4.36-5.78); RDW 12.1 % (11.8-14.1); RDW-SD 38.8 fL; WBC 7.86 10^3/uL (4.4-10.8)
--- NOTE | 2023-05-12 11:41 | DI.VRAD_ITS ---
PROCEDURE INFORMATION: Exam: XR Chest Exam date and time: 05/12/2023 11:31 AM Age: 58 years old Clinical indication: Other: Syncope TECHNIQUE: Imaging protocol: Radiologic exam of the chest. Views: 1 view. COMPARISON: CR XR CHEST 2V PA LATERAL 04/30/2023 1:29 AM FINDINGS: Tubes, catheters and devices: There are electrocardiographic leads on the thorax. Lungs: Unremarkable. No consolidation. Pleural spaces: Unremarkable. No pleural effusion. No pneumothorax. Heart/Mediastinum: The heart is normal in size and has a biventricular configuration. The aorta is in diameter. Bones/joints: Unremarkable. IMPRESSION: No acute cardiopulmonary disease or change from last month's examination. Dictated and Authenticated by: Billy Melchor MD. Ordering:FILIBERTO Varela MD
[2023-05-12 11:47] LABS: Anion Gap 6.4 mmol/L (3-11); BUN 10 mg/dL (7-18); CO2 30.6 mmol/L (21.0-32.0); CREATININE 0.9 mg/dL (0.70-1.30); Calcium 8.7 mg/dL (8.5-10.1); Chloride 100 mmol/L (98-107); Glucose 196 mg/dL (74-106); Potassium 4.4 mmol/L (3.5-5.1); Sodium 137 mmol/L (136-145); Troponin I < 50 ng/L (<or=60)
[2023-05-12 12:03] VITALS: BP 117/69; PULSE 70; RESP 18; TEMP 36.4; O2SAT 95
== END 2023-05-12 12:13 | disposition home or self-care (01) ==
PROVIDERS: Emergency Provider Emergency Medicine; PCP Family Medicine
DX: R55 Syncope and collapse (principal); D64.9 Anemia, unspecified; R11.0 Nausea; E66.9 Obesity, unspecified; F32.A Depression, unspecified; E11.9 Type 2 diabetes mellitus without complications; Z79.82 Long term (current) use of aspirin; Z79.84 Long term (current) use of oral hypoglycemic drugs; F17.210 Nicotine dependence, cigarettes, uncomplicated; I10 Essential (primary) hypertension
CPT/HCPCS: 80048; 93005; 99283; 71045; 84484; 85025; 93010

== ENCOUNTER 2023-05-16 23:06 | Emergency (ER) | payer MEDICAID, SELFPAY ==
[2023-05-16 22:52] VITALS: BP 150/79; PULSE 68; RESP 18; TEMP 36.6; O2SAT 98
--- NOTE | 2023-05-16 23:16 | W.ED.GENAD ---
Discharge Plan Disposition Patient Disposition: Home Condition: Improving Discharge Details Clinical Impression: Migraine Primary Care Provider: Brandon Foster ED Provider: Jose Cullen Meds and New Rx's Prescriptions: Continued Emgality Pen 120 mg/mL pen injector 120 mg subcut QMONTH Qty: 1 11RF Nurtec ODT 75 mg tablet,disintegrating 75 mg PO ONCE PRN (Reason: migraine headache) Qty: 10 3RF Rx Instructions: As a single dose. No more than one dose in 24 hours. sumatriptan succinate 100 mg tablet See Rx Instructions PO .COMPLEX Qty: 9 5RF Rx Instructions: take 1 tab at onset of headache; if no relief, may repeat 1 tab after at least 2 hrs; max = 2 tabs/24 hrs PO gabapentin 300 mg capsule 300 mg PO TID nicotine 21-14-7 mg/24 hr patch, TD daily, sequential 1 patch transdermal DAILY Qty: 56 0RF nicotine (polacrilex) 2 mg gum 2 mg buccal Q2H Qty: 100 1RF Claritin Liqui-Gel 10 MG capsule 1 cap PO DAILY Qty: 90 prochlorperazine maleate 10 mg tablet See Rx Instructions .ROUTE .COMPLEX Qty: 20 2RF Dose Instruction: TAKE 1 TABLET BY MOUTH EVERY 8 HOURS NEEDED FOR NAUSEA AND VOMITING, HEADACHE Rx Instructions: TAKE 1 TABLET BY MOUTH EVERY 8 HOURS NEEDED FOR NAUSEA AND VOMITING, HEADACHE nicotine (polacrilex) 4 mg gum 4 mg buccal Q2H Qty: 100 2RF multivitamin Tablet 1 tab PO DAILY metformin 500 mg tablet 1 tab PO BID omeprazole 20 mg capsule,delayed release(DR/EC) 40 mg PO DAILY clonazepam 0.5 mg tablet See Rx Instructions .ROUTE .COMPLEX Rx Instructions: 1 tab in AM, 1 tab at Noon and 2 tab QHS ondansetron 4 mg tablet,disintegrating 4 mg PO Q8H PRNQty: 7 0RF benztropine 0.5 MG tablet 0.5 mg PO BID aspirin,buffd-calcium carb-mag 325 MG tablet 325 mg PO DAILY Risperdal Consta 25 mg/2 mL suspension,extended rel recon 25 mg IM USEASDIRECTD Patient Comments: INJECT ONE SYRINGE INTRAMUSCULARLY ONCE EVERY TWO WEEKS Rx Instructions: every 2 weeks lactulose 10 gram/15 mL solution 20 g PO DIRECTED PRN Patient Comments: TAKE ONE TO TWO TABLESPOONS BY MOUTH NEEDED WHEN 3 DAYS PASS WITHOUT BOWEL MOVEMENT albuterol sulfate 90 mcg/actuation aerosol powdr breath activated 2 inh IH Q6H PRN (Reason: shortness of breath or wheezing) Qty: 1 0RF atenolol 50 mg tablet 75 mg PO DAILY Rx Instructions: To take with 25mg dose for TDD 75mg daily simvastatin 40 mg tablet 80 mg PO DAILY fluoxetine 40 mg capsule 80 mg PO DAILY Discharge Instructions Instructions: Migraine Headache (ED) Discharge Data Discharge Physician: Jose Cullen Medical Decision Making MDM: Summary: Patient presents to the emergency department stating that he has a headache. Or so be tripped. In the emergency department the patient received IV Toradol, and Zofran with improvement of his symptoms. No imaging or labs were done. Discharge Data Review Analysis All the data on this patient was reviewed by me including laboratory and imaging studies as well as bedside studies performed by me Independent review of Studies Imaging Lab: Risk Stratification: Patient who has chronic migraines who was treated at discharge Differential Diagnosis: 1. Migraine headache 2. Tension headache 3. Cluster headache 4. 5. Consultants: Shared disposition: Patient feels better will discharge Impression: Medical Records Medical records reviewed: Yes I reviewed the patient's medical records. HPI General Date/Time Provider Initiated Documentation: 05/16/23 23:16. HPI Narrative: Patient presents to the emergency department complaining of a migraine headache sumatriptan without relief. States that the headache is a very gentle heading located with negative. Completed Related Data Home Medications Medication Instructions Recorded Confirmed loratadine 10 mg capsule (Claritin 1 cap PO DAILY #90 tabs 12/16/14 04/30/23 Liqui-Gel) aspirin,buffered (calcium 325 mg PO DAILY 11/18/16 04/30/23 carbonate-magnesium) 325 mg tablet benztropine 0.5 mg tablet 0.5 mg PO BID 11/18/16 04/30/23 lactulose 10 gram/15 mL oral 20 g PO DIRECTED PRN 10/03/20 04/30/23 solution risperidone microspheres 25 mg/2 25 mg IM USEASDIRECTD 10/03/20 04/30/23 mL intramuscular susp,ext release (Risperdal Consta) albuterol sulfate 90 mcg/actuation 2 inh inhalation Q6H PRN shortness 12/15/20 04/30/23 breath activated powder inhaler of breath or wheezing #1 ea multivitamin 1 tab PO DAILY 01/26/21 04/30/23 metformin 500 mg tablet 1 tab PO BID 03/18/22 04/30/23 omeprazole 20 mg capsule,delayed 40 mg PO DAILY 03/18/22 04/30/23 release atenolol 50 mg tablet 75 mg PO DAILY 09/26/22 04/30/23 prochlorperazine maleate 10 mg See Rx Instructions .Route 01/08/23 04/30/23 tablet .COMPLEX #20 tabs clonazepam 0.5 mg tablet See Rx Instructions .Route .COMPLEX 03/04/23 04/30/23 fluoxetine 40 mg capsule 80 mg PO DAILY 03/08/23 04/30/23 galcanezumab-gnlm 120 mg/mL 120 mg subcut QMONTH #1 mL 03/08/23 04/30/23 subcutaneous pen injector (Emgality Pen) rimegepant 75 mg disintegrating 75 mg PO ONCE PRN migraine 03/08/23 04/30/23 tablet (Nurtec ODT) headache #10 tabs sumatriptan succinate 100 mg tablet See Rx Instructions PO .COMPLEX #9 03/08/23 04/30/23 tabs gabapentin 300 mg capsule 300 mg PO TID 03/27/23 04/30/23 nicotine (polacrilex) 2 mg gum 2 mg buccal Q2H #100 ea 03/27/23 04/30/23 nicotine 1 patch transdermal DAILY #56 03/27/23 04/30/23 21mg/24hr-14mg/24hr-7mg/24hr daily patches transderm patches,sequentl simvastatin 40 mg tablet 80 mg PO DAILY 03/27/23 04/30/23 nicotine (polacrilex) 4 mg gum 4 mg buccal Q2H #100 ea 04/03/23 04/30/23 ondansetron 4 mg disintegrating 4 mg PO Q8H PRN #7 tabs 05/03/23 tablet Previous Rx's Medication Instructions Recorded albuterol sulfate 90 mcg/actuation 2 inh inhalation Q6H PRN shortness 12/15/20 breath activated powder inhaler of breath or wheezing #1 ea prochlorperazine maleate 10 mg See Rx Instructions .Route 01/08/23 tablet .COMPLEX #20 tabs galcanezumab-gnlm 120 mg/mL 120 mg subcut QMONTH #1 mL 03/08/23 subcutaneous pen injector (Emgality Pen) rimegepant 75 mg disintegrating 75 mg PO ONCE PRN migraine 03/08/23 tablet (Nurtec ODT) headache #10 tabs sumatriptan succinate 100 mg tablet See Rx Instructions PO .COMPLEX #9 03/08/23 tabs nicotine (polacrilex) 2 mg gum 2 mg buccal Q2H #100 ea 03/27/23 nicotine 1 patch transdermal DAILY #56 03/27/23 21mg/24hr-14mg/24hr-7mg/24hr daily patches transderm patches,sequentl nicotine (polacrilex) 4 mg gum 4 mg buccal Q2H #100 ea 04/03/23 ondansetron 4 mg disintegrating 4 mg PO Q8H PRN #7 tabs 05/03/23 tablet Allergies Allergy/AdvReac Type Severity Reaction Status Date / Time buspirone Allergy Verified 05/03/23 09:55 paliperidone Allergy Verified 05/03/23 09:55 paroxetine HCl [From Paxil] Allergy Verified 05/03/23 09:55 sertraline Allergy Verified 05/03/23 09:55 ziprasidone [From Geodon] Allergy Other (See Verified 05/03/23 09:55 Comment) aripiprazole [From Abilify] AdvReac Intermediate INVOLUNTARY Verified 05/03/23 09:55 MUSCLE MOVEMENTS divalproex sodium AdvReac Intermediate INVOLUNTARY Verified 05/03/23 09:55 [From Depakote] MUSCLE MOVEMENTS mirtazapine AdvReac Intermediate INVOLUNTARY Verified 05/03/23 09:55 MUSCLE MOVEMENTS risperidone AdvReac Intermediate INVOLUNTARY Verified 05/03/23 09:55 MUSCLE MOVEMENTS benztropine mesylate AdvReac elevated Verified 05/03/23 09:55 [From Cogentin] blood sugars enviornmental Allergy Mild Wheezing Uncoded 05/03/23 09:55 General Stated Complaint: Headache CARLOS: 3 Review of Systems Narrative: Review of Systems: Constitutional: No fevers, chills, sweats Eye: No recent visual problems ENT: No ear pain, nasal congestion, sore throat Respiratory: No shortness of breath, cough Cardiovascular: No Chest pain, palpitations, syncope Gastrointestinal: No nausea, vomiting, diarrhea Genitourinary: No hematuria Bandar/Lymph: Negative for bruising tendency, swollen lymph glands Endocrine: Negative for excessive thirst, excessive hunger Musculoskeletal: No back pain, neck pain, joint pain, muscle pain, decreased range of motion Integumentary: No rash, pruritus, abrasions Neurologic: Alert & oriented X 4 Psychiatric: No anxiety, depression PFSH All Active Problems (Updated 05/17/23 @ 00:06 by Jose Cullen MD) Atypical chest pain (Acute) Nausea (Acute) Syncope (Chronic) Normocytic anemia (Acute) Nicotine dependence (Acute) Dyspnea on exertion (Acute) Shortness of breath (Acute) Schizoaffective disorder (Acute 09/07/14) Rebekah Mariscal [facility] 09[facility] Hypothyroidism (acquired) (Acute 09/07/14) Hypercholesterolemia (Chronic 09/07/14) pt insists on lipitor 80 mg due to family hx GERD (gastroesophageal reflux disease) (Acute 09/07/14) Diabetes mellitus type 2 in obese (Acute 09/09/14) Depression (Acute 10/02/14) Left-sided chest wall pain (Acute) Hypertension (Chronic) pt requests brand name Tenormin vs atenolol 04/02/18 Chest pain (Acute) Chronic headache (Acute) Migraine headache without aura (Acute) Migraine (Chronic) Obesity (Chronic) BMI 52 Poor dentition (Acute) Tobacco use disorder (Chronic) started 2013 1.5 ppd, pipe 1-7/week, QUIT LATE OCT 2021 Allergic rhinitis (Chronic) lortadine Hiatal hernia (Chronic) protonix not effective, nexium works better 02/12/18 Anemia (Chronic) Broken teeth (Chronic) Drug-seeking behavior (Chronic ~09/20/21) Requests Ritalin from providers Medication overuse headache (Acute) Medical History Anxiety Dental caries Hyperlipidemia Mitral valve prolapse Peripheral neuropathy Trigeminal neuralgia Surgical History No significant past surgical history Family History Father Heart disease [place] Social History Smoking/Tobacco Use Status: Former Tobacco Use Smoking risk assessment performed?: Yes Alcohol Intake: never Drug use: Never Substance use type: does not use Adopted: No Caregiver/Support person: No Foster care: No Household members: none Housing: apartment Number of Children: 2 number of grandchildren: 1 Communication Needs: Corrective Lenses Education Level: college Do you need help understanding health information?: Always current occupation: Unemployed/Leave of absence Sexually active: No Do you think of yourself as: Decline to provide Current gender identity: male What type of physical activity do you participate in: other Details: weight lifting Frequency: 3-4 times per week Magalie/Hinduism: Cheondoism Seatbelt use: always Drive 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 ride w/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 driver wheelchair: No Working smoke detector in home: Yes Fire extinguisher in home: Yes Carbon monox detector in home: Yes Do you feel safe at home: Yes (anxiety and depression) Do you feel safe in your relationship?: Yes Exam Narrative Exam Narrative: Exam; vitals signs as reported above normal Constitutional; In no acute distress, afebrile General: cooperative, healthy appearing, comfortable and no acute distress HEENT: Head: normal to inspection, no palpable skull fracture and normocephalic atraumatic Eyes: l: appearance normal, both eyes and all related structures Pupils: PERRL : EOM intact bilaterally Direct ophthalmoscopy: normal light reflex, normal conjunctiva, normal visual acuity Neck no JVD, supple non tender Neck: normal visual inspection, full ROM and no lymphadenopathy Chest: normal inspection of the chest Respiratory : normal respiratory effort and able to speak in complete sentences no wheezing no rales Cardio Rate: regular rate Rhythm: regular rhythm normal heart sounds S1 and S2 no murmurs, gallops, or rubs GI : normal to inspection, normal bowel sounds, soft, non tender, non distended, no organomegaly Back/Spine/ no CVA tenderness Thoracic/Lumbar Spine: no tenderness or deformities Skin no rashes or lesions Neuro: patient alert and no meningeal signs, Cranial Nerves: CN's II-XI intact bilaterally, Cognition: normal cognition, Speech: speech normal, Gait: normal gait, Depp tendon reflexes normal 2+ Extremities, no edema, full range of motion, normal strength Course Vital Signs Vital signs: Vital Signs Temperature 36.6 C 05/16/23 22:52 Pulse 68 05/16/23 22:52 Respiratory Rate 18 05/16/23 22:52 Blood Pressure 150/79 H 05/16/23 22:52 Pulse Oximetry 98 05/16/23 22:52 Temperature 36.6 C 05/16/23 22:52 Pulse 68 05/16/23 22:52 Respiratory Rate 18 05/16/23 22:52 Blood Pressure 150/79 H 05/16/23 22:52 Pulse Oximetry 98 05/16/23 22:52 Oxygen Delivery Method Room Air 05/16/23 22:52 Oxygen Flow Rate 0 05/16/23 22:52
[2023-05-17] VITALS (7 sets, daily range): BP systolic 99–146; BP diastolic 41–85; PULSE 59–61; O2SAT 96–98
[2023-05-17] MEDS: Ketorolac 30 MG/ML VIAL IVP (00:07)
[2023-05-17] MEDS: Ondansetron 4 MG/2 ML VIAL IVP (00:07)
== END 2023-05-17 00:49 | disposition home or self-care (01) ==
PROVIDERS: Emergency Provider Emergency Medicine Emergency Medical Services; PCP Family Medicine
DX: G43.909 Migraine, unspecified, not intractable, without status migrainosus (principal)
CPT/HCPCS: 96374; 96375; 99284; J1885; J2405

== ENCOUNTER 2023-05-23 21:24 | Emergency (ER) | payer MEDICAID, SELFPAY ==
[2023-05-23] VITALS (48 sets, daily range): BP systolic 124–160; BP diastolic 59–103; PULSE 62–68; RESP 18; TEMP 37; O2SAT 93–97
[2023-05-23] MEDS: Ketorolac 15 MG/ML VIAL IM (21:51)
[2023-05-23] MEDS: Prochlorperazine 10 MG TAB PO (21:51)
--- NOTE | 2023-05-23 22:46 | W.ED.GENAD ---
Discharge Plan Disposition Patient Disposition: Home Condition: Stable Discharge Details Clinical Impression: Headache Primary Care Provider: Brandon Foster ED Provider: Lucille Farley Home Meds and New Rx's Prescriptions: Continued Emgality Pen 120 mg/mL pen injector 120 mg subcut QMONTH Qty: 1 11RF Nurtec ODT 75 mg tablet,disintegrating 75 mg PO ONCE PRN (Reason: migraine headache) Qty: 10 3RF Rx Instructions: As a single dose. No more than one dose in 24 hours. sumatriptan succinate 100 mg tablet See Rx Instructions PO .COMPLEX Qty: 9 5RF Rx Instructions: take 1 tab at onset of headache; if no relief, may repeat 1 tab after at least 2 hrs; max = 2 tabs/24 hrs PO gabapentin 300 mg capsule 300 mg PO TID nicotine 21-14-7 mg/24 hr patch, TD daily, sequential 1 patch transdermal DAILY Qty: 56 0RF nicotine (polacrilex) 2 mg gum 2 mg buccal Q2H Qty: 100 1RF Claritin Liqui-Gel 10 MG capsule 1 cap PO DAILY Qty: 90 prochlorperazine maleate 10 mg tablet See Rx Instructions .ROUTE .COMPLEX Qty: 20 2RF Dose Instruction: TAKE 1 TABLET BY MOUTH EVERY 8 HOURS NEEDED FOR NAUSEA AND VOMITING, HEADACHE Rx Instructions: TAKE 1 TABLET BY MOUTH EVERY 8 HOURS NEEDED FOR NAUSEA AND VOMITING, HEADACHE nicotine (polacrilex) 4 mg gum 4 mg buccal Q2H Qty: 100 2RF multivitamin Tablet 1 tab PO DAILY metformin 500 mg tablet 1 tab PO BID omeprazole 20 mg capsule,delayed release(DR/EC) 40 mg PO DAILY clonazepam 0.5 mg tablet See Rx Instructions .ROUTE .COMPLEX Rx Instructions: 1 tab in AM, 1 tab at Noon and 2 tab QHS ondansetron 4 mg tablet,disintegrating 4 mg PO Q8H PRNQty: 7 0RF benztropine 0.5 MG tablet 0.5 mg PO BID aspirin,buffd-calcium carb-mag 325 MG tablet 325 mg PO DAILY Risperdal Consta 25 mg/2 mL suspension,extended rel recon 25 mg IM USEASDIRECTD Patient Comments: INJECT ONE SYRINGE INTRAMUSCULARLY ONCE EVERY TWO WEEKS Rx Instructions: every 2 weeks lactulose 10 gram/15 mL solution 20 g PO DIRECTED PRN Patient Comments: TAKE ONE TO TWO TABLESPOONS BY MOUTH NEEDED WHEN 3 DAYS PASS WITHOUT BOWEL MOVEMENT albuterol sulfate 90 mcg/actuation aerosol powdr breath activated 2 inh IH Q6H PRN (Reason: shortness of breath or wheezing) Qty: 1 0RF atenolol 50 mg tablet 75 mg PO DAILY Rx Instructions: To take with 25mg dose for TDD 75mg daily simvastatin 40 mg tablet 80 mg PO DAILY fluoxetine 40 mg capsule 80 mg PO DAILY Discharge Instructions Instructions: General Headache (ED) Additional Instructions: Please follow-up with your primary care doctor and return earlier should you have new or worsening complaints Take your prescribed medications Discharge Data Discharge Date/Time-TO BE ENTERED AT DEPARTURE: 05/23/23 23:07 Medical Decision Making 58-year-old male with history of migraine headaches presents for assessment of a headache, feeling relieved after Toradol, fluids, and Compazine Sleeping in room at time of reassessment Has had CAT scans and labs in the past, no indication for repeat testing at this time Alert, oriented, pupils equal round reactive to light and accommodation, extraocular muscles intact, cranial nerves II through XII intact, able to follow all basic neurological exam, ambulatory with steady gait, nonfocal neurological exam, no meningismus, lungs clear to auscultation, cardiac rate rhythm regular Return precautions reviewed and patient expressed understanding HPI General Date/Time Provider Initiated Documentation: 05/23/23 21:31. HPI Narrative: This 58-year-old male known to this facility presents with reports of history of migraines, migraine unrelieved with sumatriptan x2 and promethazine prior to arrival presents for assessment. States occasionally has headaches similar to this. Denies any stiff neck or fever. States it came on gradually over the course of a couple hours. Denies any falls or injuries. Denies any vision change, speech change, or strength or sensation change. Related Data Home Medications Medication Instructions Recorded Confirmed loratadine 10 mg capsule (Claritin 1 cap PO DAILY #90 tabs 12/16/14 05/29/23 Liqui-Gel) aspirin,buffered (calcium 325 mg PO DAILY 11/18/16 05/29/23 carbonate-magnesium) 325 mg tablet benztropine 0.5 mg tablet 0.5 mg PO BID 11/18/16 05/29/23 lactulose 10 gram/15 mL oral 20 g PO DIRECTED PRN 10/03/20 05/29/23 solution risperidone microspheres 25 mg/2 25 mg IM USEASDIRECTD 10/03/20 05/29/23 mL intramuscular susp,ext release (Risperdal Consta) albuterol sulfate 90 mcg/actuation 2 inh inhalation Q6H PRN shortness 12/15/20 05/29/23 breath activated powder inhaler of breath or wheezing #1 ea multivitamin 1 tab PO DAILY 01/26/21 05/29/23 metformin 500 mg tablet 1 tab PO BID 03/18/22 05/29/23 omeprazole 20 mg capsule,delayed 40 mg PO DAILY 03/18/22 05/29/23 release atenolol 50 mg tablet 75 mg PO DAILY 09/26/22 05/29/23 prochlorperazine maleate 10 mg See Rx Instructions .Route 01/08/23 05/29/23 tablet .COMPLEX #20 tabs clonazepam 0.5 mg tablet See Rx Instructions .Route .COMPLEX 03/04/23 05/29/23 fluoxetine 40 mg capsule 80 mg PO DAILY 03/08/23 05/29/23 galcanezumab-gnlm 120 mg/mL 120 mg subcut QMONTH #1 mL 03/08/23 05/29/23 subcutaneous pen injector (Emgality Pen) rimegepant 75 mg disintegrating 75 mg PO ONCE PRN migraine 03/08/23 05/29/23 tablet (Nurtec ODT) headache #10 tabs sumatriptan succinate 100 mg tablet See Rx Instructions PO .COMPLEX #9 03/08/23 05/29/23 tabs gabapentin 300 mg capsule 300 mg PO TID 03/27/23 05/29/23 nicotine (polacrilex) 2 mg gum 2 mg buccal Q2H #100 ea 03/27/23 05/29/23 nicotine 1 patch transdermal DAILY #56 03/27/23 05/29/23 21mg/24hr-14mg/24hr-7mg/24hr daily patches transderm patches,sequentl simvastatin 40 mg tablet 80 mg PO DAILY 03/27/23 05/29/23 nicotine (polacrilex) 4 mg gum 4 mg buccal Q2H #100 ea 04/03/23 05/29/23 ondansetron 4 mg disintegrating 4 mg PO Q8H PRN #7 tabs 05/03/23 05/29/23 tablet Previous Rx's Medication Instructions Recorded albuterol sulfate 90 mcg/actuation 2 inh inhalation Q6H PRN shortness 12/15/20 breath activated powder inhaler of breath or wheezing #1 ea prochlorperazine maleate 10 mg See Rx Instructions .Route 01/08/23 tablet .COMPLEX #20 tabs galcanezumab-gnlm 120 mg/mL 120 mg subcut QMONTH #1 mL 03/08/23 subcutaneous pen injector (Emgality Pen) rimegepant 75 mg disintegrating 75 mg PO ONCE PRN migraine 03/08/23 tablet (Nurtec ODT) headache #10 tabs sumatriptan succinate 100 mg tablet See Rx Instructions PO .COMPLEX #9 03/08/23 tabs nicotine (polacrilex) 2 mg gum 2 mg buccal Q2H #100 ea 03/27/23 nicotine 1 patch transdermal DAILY #56 03/27/23 21mg/24hr-14mg/24hr-7mg/24hr daily patches transderm patches,sequentl nicotine (polacrilex) 4 mg gum 4 mg buccal Q2H #100 ea 04/03/23 ondansetron 4 mg disintegrating 4 mg PO Q8H PRN #7 tabs 05/03/23 tablet Allergies Allergy/AdvReac Type Severity Reaction Status Date / Time buspirone Allergy Verified 05/29/23 07:46 paliperidone Allergy Verified 05/29/23 07:46 paroxetine HCl [From Paxil] Allergy Verified 05/29/23 07:46 sertraline Allergy Verified 05/29/23 07:46 ziprasidone [From Geodon] Allergy Other (See Verified 05/29/23 07:46 Comment) aripiprazole [From Abilify] AdvReac Intermediate INVOLUNTARY Verified 05/29/23 07:46 MUSCLE MOVEMENTS divalproex sodium AdvReac Intermediate INVOLUNTARY Verified 05/29/23 07:46 [From Depakote] MUSCLE MOVEMENTS mirtazapine AdvReac Intermediate INVOLUNTARY Verified 05/29/23 07:46 MUSCLE MOVEMENTS risperidone AdvReac Intermediate INVOLUNTARY Verified 05/29/23 07:46 MUSCLE MOVEMENTS benztropine mesylate AdvReac elevated Verified 05/29/23 07:46 [From Cogentin] blood sugars enviornmental Allergy Mild Wheezing Uncoded 05/29/23 07:46 General Stated Complaint: Headache CARLOS: 3 PFSH All Active Problems (Updated 05/23/23 @ 22:47 by JORDANA Salazar) Atypical chest pain (Acute) Nausea (Acute) Syncope (Chronic) Normocytic anemia (Acute) Headache (Acute) Nicotine dependence (Acute) Dyspnea on exertion (Acute) Shortness of breath (Acute) Schizoaffective disorder (Acute 09/07/14) Rebekah Mariscal [facility] 09/2014- [facility] inpatient Hypothyroidism (acquired) (Acute 09/07/14) Hypercholesterolemia (Chronic 09/07/14) pt insists on lipitor 80 mg due to family hx GERD (gastroesophageal reflux disease) (Acute 09/07/14) Diabetes mellitus type 2 in obese (Acute 09/09/14) Depression (Acute 10/02/14) Left-sided chest wall pain (Acute) Hypertension (Chronic) pt requests brand name Tenormin vs atenolol 04/02/18 Chest pain (Acute) Chronic headache (Acute) Migraine headache without aura (Acute) Migraine (Chronic) Obesity (Chronic) BMI 52 Poor dentition (Acute) Tobacco use disorder (Chronic) started 2013 1.5 ppd, pipe 1-7/week, QUIT LATE OCT 2021 Allergic rhinitis (Chronic) lortadine Hiatal hernia (Chronic) protonix not effective, nexium works better 02/12/18 Anemia (Chronic) Broken teeth (Chronic) Drug-seeking behavior (Chronic ~09/20/21) Requests Ritalin from providers Medication overuse headache (Acute) Medical History Anxiety Dental caries Hyperlipidemia Mitral valve prolapse Peripheral neuropathy Trigeminal neuralgia Surgical History No significant past surgical history Family History Father Heart disease [place] Social History Smoking/Tobacco Use Status: Former Tobacco Use Smoking risk assessment performed?: Yes Alcohol Intake: never Drug use: Never Substance use type: does not use Adopted: No Caregiver/Support person: No Foster care: No Household members: none Housing: apartment Number of Children: 2 number of grandchildren: 1 Communication Needs: Corrective Lenses Education Level: college Do you need help understanding health information?: Always current occupation: Unemployed/Leave of absence Sexually active: No Do you think of yourself as: Decline to provide Current gender identity: male What type of physical activity do you participate in: other Details: weight lifting Frequency: 3-4 times per week Magalie/Samaritan: Quaker Seatbelt use: always Drive intox or ride w/intox class b 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 Course Vital Signs Vital signs: Vital Signs Temperature 37.0 C 05/23/23 21:22 Pulse 68 05/23/23 21:22 Respiratory Rate 18 05/23/23 21:22 Blood Pressure 158/90 H 05/23/23 21:22 Pulse Oximetry 96 05/23/23 21:22 Temperature 37.0 C 05/23/23 21:22 Pulse 62 05/23/23 22:31 Respiratory Rate 18 05/23/23 21:22 Blood Pressure 149/71 H 05/23/23 22:31 Pulse Oximetry 94 05/23/23 22:36 Oxygen Delivery Method Room Air 05/23/23 21:22 Oxygen Flow Rate 0 05/23/23 21:22
== END 2023-05-23 23:07 | disposition home or self-care (01) ==
LOC: ER 22:56
PROVIDERS: Emergency Provider Physician Assistant; PCP Family Medicine
DX: R51.9 Headache, unspecified (principal); I10 Essential (primary) hypertension; E78.5 Hyperlipidemia, unspecified; E11.9 Type 2 diabetes mellitus without complications; Z79.84 Long term (current) use of oral hypoglycemic drugs; Z79.82 Long term (current) use of aspirin; Z87.891 Personal history of nicotine dependence
CPT/HCPCS: 99283; 99282; J1885

== ENCOUNTER 2023-05-29 07:45 | Emergency (ER) | payer MEDICAID, SELFPAY ==
--- NOTE | 2023-05-29 07:30 | RT.EKG_ITS ---
APPROVED REPORT Exam: Resting ECG Reason for Exam: difficulty breathing Patient Location: E HR:60 bpm ECG Measurements Heart Rate 60 AXIS SD 194 P 31 QRSd 99 QRS 13 QT 431 T 78 QTc 430 Conclusion Sinus rhythm...normal P axis, V-rate 60- 99 Physician: no stemi, unchanged
[2023-05-29 07:40] VITALS: BP 153/83; PULSE 66; RESP 20; TEMP 36.5; O2SAT 100
[2023-05-29 07:47] VITALS: RESP 20
--- NOTE | 2023-05-29 08:00 | DI.RAD_ITS ---
Exam(s) XR CHEST 2V PA LATERAL EXAM: XR CHEST 2V PA LATERAL CLINICAL HISTORY: left sided chest pain. TECHNIQUE: 2D digital imaging was performed. COMPARISON: CR,XR XR PORTABLE CHEST AP from 05/12/2023 FINDINGS: 2 views: Heart size is normal. The mediastinum is not widened. Lungs are clear. No infiltrates nor pleural effusions. IMPRESSION: No acute pulmonary findings. If clinically indicated follow-up CT scan can be performed. DATA REPOSITORY: RADIATION DOSE DELIVERED:
[2023-05-29 08:56] LABS: Troponin I < 50 ng/L (<or=60)
--- NOTE | 2023-05-29 09:23 | ED.GENADUL_ITS ---
Discharge Plan Disposition Patient Disposition: Home Condition: Stable Discharge Details Clinical Impression: Left-sided chest wall pain Primary Care Provider: Brandon Foster ED Provider: Lucille Farley Home Meds and New Rx's Prescriptions: Continued Emgality Pen 120 mg/mL pen injector 120 mg subcut QMONTH Qty: 1 11RF Nurtec ODT 75 mg tablet,disintegrating 75 mg PO ONCE PRN (Reason: migraine headache) Qty: 10 3RF Rx Instructions: As a single dose. No more than one dose in 24 hours. sumatriptan succinate 100 mg tablet See Rx Instructions PO .COMPLEX Qty: 9 5RF Rx Instructions: take 1 tab at onset of headache; if no relief, may repeat 1 tab after at least 2 hrs; max = 2 tabs/24 hrs PO gabapentin 300 mg capsule 300 mg PO TID nicotine 21-14-7 mg/24 hr patch, TD daily, sequential 1 patch transdermal DAILY Qty: 56 0RF nicotine (polacrilex) 2 mg gum 2 mg buccal Q2H Qty: 100 1RF Claritin Liqui-Gel 10 MG capsule 1 cap PO DAILY Qty: 90 prochlorperazine maleate 10 mg tablet See Rx Instructions .ROUTE .COMPLEX Qty: 20 2RF Dose Instruction: TAKE 1 TABLET BY MOUTH EVERY 8 HOURS NEEDED FOR NAUSEA AND VOMITING, HEADACHE Rx Instructions: TAKE 1 TABLET BY MOUTH EVERY 8 HOURS NEEDED FOR NAUSEA AND VOMITING, HEADACHE nicotine (polacrilex) 4 mg gum 4 mg buccal Q2H Qty: 100 2RF multivitamin Tablet 1 tab PO DAILY metformin 500 mg tablet 1 tab PO BID omeprazole 20 mg capsule,delayed release(DR/EC) 40 mg PO DAILY clonazepam 0.5 mg tablet See Rx Instructions .ROUTE .COMPLEX Rx Instructions: 1 tab in AM, 1 tab at Noon and 2 tab QHS ondansetron 4 mg tablet,disintegrating 4 mg PO Q8H PRNQty: 7 0RF benztropine 0.5 MG tablet 0.5 mg PO BID aspirin,buffd-calcium carb-mag 325 MG tablet 325 mg PO DAILY Risperdal Consta 25 mg/2 mL suspension,extended rel recon 25 mg IM USEASDIRECTD Patient Comments: INJECT ONE SYRINGE INTRAMUSCULARLY ONCE EVERY TWO WEEKS Rx Instructions: every 2 weeks lactulose 10 gram/15 mL solution 20 g PO DIRECTED PRN Patient Comments: TAKE ONE TO TWO TABLESPOONS BY MOUTH NEEDED WHEN 3 DAYS PASS WITHOUT BOWEL MOVEMENT albuterol sulfate 90 mcg/actuation aerosol powdr breath activated 2 inh IH Q6H PRN (Reason: shortness of breath or wheezing) Qty: 1 0RF atenolol 50 mg tablet 75 mg PO DAILY Rx Instructions: To take with 25mg dose for TDD 75mg daily simvastatin 40 mg tablet 80 mg PO DAILY fluoxetine 40 mg capsule 80 mg PO DAILY Discharge Instructions Instructions: Chest Wall Pain (ED) Additional Instructions: Please take Tylenol as needed for pain Please follow-up with your primary care physician your exam today is reassuring Please return should you have new or worsening complaints Referrals: Brandon Foster [Primary Care Provider] - Discharge Data Discharge Date/Time-TO BE ENTERED AT DEPARTURE: 05/29/23 09:52 Medical Decision Making 58-year-old male presents with chest pain with radiation down his left arm, has had numerous visits for similar presentation with many cardiac work-ups in the emergency department Patient has been scheduled for outpatient stress test but has not followed through with scheduling this His troponin was 3 hours of symptoms prior to arrival with a high-sensitivity troponin is negative which is reassuring Chest x-ray does not show acute abnormality per radiology interpretation my review He is encouraged to follow-up, have his outpatient stress test performed, and to return earlier should he have new or worsening complaints I did review all of his prior testing and diagnostic labs, EKGs, troponins in the past I did consider pulmonary embolism, he is not hypoxic, tachypneic, or tachycardic and my suspicion that this is a PE is quite low clinically He is resting comfortably in the room and asymptomatic at time of reassessment HPI General Date/Time Provider Initiated Documentation: 05/29/23 08:04 . HPI Narrative: This 58-year-old male known to this facility presents with report of chest pain and shortness of breath, predominantly on the left side. States it started about 3 hours prior to arrival. Denies known exacerbating or alleviating factors. States has had similar symptoms in the past. He did stop smoking approximately a month ago. He denies any calf pain or swelling, he denies exogenous hormones. Denies recent flights, surgeries, long drives. Denies any known trauma to the affected area. Related Data Home Medications Medication Instructions Recorded Confirmed loratadine 10 mg capsule (Claritin 1 cap PO DAILY #90 tabs 12/16/14 05/29/23 Liqui-Gel) aspirin,buffered (calcium 325 mg PO DAILY 11/18/16 05/29/23 carbonate-magnesium) 325 mg tablet benztropine 0.5 mg tablet 0.5 mg PO BID 11/18/16 05/29/23 lactulose 10 gram/15 mL oral 20 g PO DIRECTED PRN 10/03/20 05/29/23 solution risperidone microspheres 25 mg/2 25 mg IM USEASDIRECTD 10/03/20 05/29/23 mL intramuscular susp,ext release (Risperdal Consta) albuterol sulfate 90 mcg/actuation 2 inh inhalation Q6H PRN shortness 12/15/20 05/29/23 breath activated powder inhaler of breath or wheezing #1 ea multivitamin 1 tab PO DAILY 01/26/21 05/29/23 metformin 500 mg tablet 1 tab PO BID 03/18/22 05/29/23 omeprazole 20 mg capsule,delayed 40 mg PO DAILY 03/18/22 05/29/23 release atenolol 50 mg tablet 75 mg PO DAILY 09/26/22 05/29/23 prochlorperazine maleate 10 mg See Rx Instructions .Route 01/08/23 05/29/23 tablet .COMPLEX #20 tabs clonazepam 0.5 mg tablet See Rx Instructions .Route .COMPLEX 03/04/23 05/29/23 fluoxetine 40 mg capsule 80 mg PO DAILY 03/08/23 05/29/23 galcanezumab-gnlm 120 mg/mL 120 mg subcut QMONTH #1 mL 03/08/23 05/29/23 subcutaneous pen injector (Emgality Pen) rimegepant 75 mg disintegrating 75 mg PO ONCE PRN migraine 03/08/23 05/29/23 tablet (Nurtec ODT) headache #10 tabs sumatriptan succinate 100 mg tablet See Rx Instructions PO .COMPLEX #9 03/08/23 05/29/23 tabs gabapentin 300 mg capsule 300 mg PO TID 03/27/23 05/29/23 nicotine (polacrilex) 2 mg gum 2 mg buccal Q2H #100 ea 03/27/23 05/29/23 nicotine 1 patch transdermal DAILY #56 03/27/23 05/29/23 21mg/24hr-14mg/24hr-7mg/24hr daily patches transderm patches,sequentl simvastatin 40 mg tablet 80 mg PO DAILY 03/27/23 05/29/23 nicotine (polacrilex) 4 mg gum 4 mg buccal Q2H #100 ea 04/03/23 05/29/23 ondansetron 4 mg disintegrating 4 mg PO Q8H PRN #7 tabs 05/03/23 05/29/23 tablet Previous Rx's Medication Instructions Recorded albuterol sulfate 90 mcg/actuation 2 inh inhalation Q6H PRN shortness 12/15/20 breath activated powder inhaler of breath or wheezing #1 ea prochlorperazine maleate 10 mg See Rx Instructions .Route 01/08/23 tablet .COMPLEX #20 tabs galcanezumab-gnlm 120 mg/mL 120 mg subcut QMONTH #1 mL 03/08/23 subcutaneous pen injector (Emgality Pen) rimegepant 75 mg disintegrating 75 mg PO ONCE PRN migraine 03/08/23 tablet (Nurtec ODT) headache #10 tabs sumatriptan succinate 100 mg tablet See Rx Instructions PO .COMPLEX #9 03/08/23 tabs nicotine (polacrilex) 2 mg gum 2 mg buccal Q2H #100 ea 03/27/23 nicotine 1 patch transdermal DAILY #56 03/27/23 21mg/24hr-14mg/24hr-7mg/24hr daily patches transderm patches,sequentl nicotine (polacrilex) 4 mg gum 4 mg buccal Q2H #100 ea 04/03/23 ondansetron 4 mg disintegrating 4 mg PO Q8H PRN #7 tabs 05/03/23 tablet Allergies Allergy/AdvReac Type Severity Reaction Status Date / Time buspirone Allergy Verified 05/29/23 07:46 paliperidone Allergy Verified 05/29/23 07:46 paroxetine HCl [From Paxil] Allergy Verified 05/29/23 07:46 sertraline Allergy Verified 05/29/23 07:46 ziprasidone [From Geodon] Allergy Other (See Verified 05/29/23 07:46 Comment) aripiprazole [From Abilify] AdvReac Intermediate INVOLUNTARY Verified 05/29/23 07:46 MUSCLE MOVEMENTS divalproex sodium AdvReac Intermediate INVOLUNTARY Verified 05/29/23 07:46 [From Depakote] MUSCLE MOVEMENTS mirtazapine AdvReac Intermediate INVOLUNTARY Verified 05/29/23 07:46 MUSCLE MOVEMENTS risperidone AdvReac Intermediate INVOLUNTARY Verified 05/29/23 07:46 MUSCLE MOVEMENTS benztropine mesylate AdvReac elevated Verified 05/29/23 07:46 [From Cogentin] blood sugars enviornmental Allergy Mild Wheezing Uncoded 05/29/23 07:46 General Stated Complaint: SOB CARLOS: 3 PFSH All Active Problems (Updated 05/29/23 @ 09:32 by JORDANA Salazar) Atypical chest pain (Acute) Nausea (Acute) Syncope (Chronic) Normocytic anemia (Acute) Headache (Acute) Nicotine dependence (Acute) Dyspnea on exertion (Acute) Shortness of breath (Acute) Schizoaffective disorder (Acute 09/07/14) Rebekah Mariscal [facility] 09/2014- [facility] inpatient Hypothyroidism (acquired) (Acute 09/07/14) Hypercholesterolemia (Chronic 09/07/14) pt insists on lipitor 80 mg due to family hx GERD (gastroesophageal reflux disease) (Acute 09/07/14) Diabetes mellitus type 2 in obese (Acute 09/09/14) Depression (Acute 10/02/14) Left-sided chest wall pain (Acute) Hypertension (Chronic) pt requests brand name Tenormin vs atenolol 04/02/18 Chest pain (Acute) Chronic headache (Acute) Migraine headache without aura (Acute) Migraine (Chronic) Obesity (Chronic) BMI 52 Poor dentition (Acute) Tobacco use disorder (Chronic) started 2013 1.5 ppd, pipe 1-7/week, QUIT LATE OCT 2021 Allergic rhinitis (Chronic) lortadine Hiatal hernia (Chronic) protonix not effective, nexium works better 02/12/18 Anemia (Chronic) Broken teeth (Chronic) Drug-seeking behavior (Chronic ~09/20/21) Requests Ritalin from providers Medication overuse headache (Acute) Medical History Anxiety Dental caries Hyperlipidemia Mitral valve prolapse Peripheral neuropathy Trigeminal neuralgia Surgical History No significant past surgical history Family History Father Heart disease [place] Social History Smoking/Tobacco Use Status: Former Tobacco Use Smoking risk assessment performed?: Yes Alcohol Intake: never Drug use: Never Substance use type: does not use Adopted: No Caregiver/Support person: No Foster care: No Household members: none Housing: apartment Number of Children: 2 number of grandchildren: 1 Communication Needs: Corrective Lenses Education Level: college Do you need help understanding health information?: Always current occupation: Unemployed/Leave of absence Sexually active: No Do you think of yourself as: Decline to provide Current gender identity: male What type of physical activity do you participate in: other Details: weight lifting Frequency: 3-4 times per week Magalie/Religious: Spiritism Seatbelt use: always Drive intox or ride w/intox auto [place]ulaway 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 Course Vital Signs Vital signs: Vital Signs Temperature 36.5 C 05/29/23 07:40 Pulse 66 05/29/23 07:40 Respiratory Rate 20 05/29/23 07:40 Blood Pressure 153/83 H 05/29/23 07:40 Pulse Oximetry 100 05/29/23 07:40 Temperature 36.5 C 05/29/23 07:40 Temperature Source Oral 05/29/23 07:40 Pulse 66 05/29/23 07:40 Respiratory Rate 20 05/29/23 07:47 Respiratory Effort Normal 05/29/23 07:47 Respiratory Depth Normal 05/29/23 07:47 Respiratory Pattern Normal 05/29/23 07:47 Blood Pressure 153/83 H 05/29/23 07:40 Blood Pressure Position Sitting 05/29/23 07:40 Pulse Oximetry 100 05/29/23 07:40 Oxygen Delivery Method Room Air 05/29/23 07:40 Oxygen Flow Rate 0 05/29/23 07:40 Pain Level 7 05/29/23 07:47 Lab/Test Results Lab/Test Results: Laboratory Tests Range/Units 05/29/23 08:30 Troponin I (<or=60) ng/L < 50
== END 2023-05-29 09:52 | disposition home or self-care (01) ==
PROVIDERS: Emergency Provider Physician Assistant; PCP Family Medicine
DX: R07.89 Other chest pain (principal)
CPT/HCPCS: 93005; 99284; 71046; 84484; 93010; 99283

== ENCOUNTER 2023-09-26 16:06 | Emergency (ER) | payer MEDICAID, SELFPAY ==
--- NOTE | 2023-09-26 16:00 | RT.EKG_ITS ---
APPROVED REPORT Exam: Resting ECG Reason for Exam: chest pain Patient Location: E HR:71 bpm ECG Measurements Heart Rate 71 AXIS FL 194 P 45 QRSd 97 QRS 39 QT 403 T 88 QTc 439 Conclusion Sinus rhythm...normal P axis, V-rate 60- 99 I have reviewed and interpreted ECG and agree with software generated interpretation.
[2023-09-26 16:09] VITALS: BP 142/80; PULSE 72; RESP 16; TEMP 35.8; O2SAT 96
[2023-09-26 16:12] VITALS: RESP 14
--- NOTE | 2023-09-26 16:30 | DI.RAD_ITS ---
Exam(s) XR CHEST 2V PA LATERAL EXAM: XR CHEST 2V PA LATERAL CLINICAL HISTORY: chest pain TECHNIQUE: 2D digital imaging was performed of the chest. Two images were obtained. PA and lateral views were obtained. COMPARISON: CR XR CHEST 2V PA LATERAL from 05/29/2023 FINDINGS: MEDIASTINUM: Normal. HEART: Normal. PULMONARY VASCULATURE: Normal. LUNGS: Clear. PLEURAL SPACE: No pleural effusion or pneumothorax. BONE:Within normal limits for the patient's age. OTHER FINDINGS:Normal. IMPRESSION: No acute pulmonary findings. DATA REPOSITORY: RADIATION DOSE DELIVERED:
--- NOTE | 2023-09-26 16:41 | ED.GENADUL_ITS ---
Discharge Plan Disposition Patient Disposition: Home Condition: Stable Discharge Details Clinical Impression: Chest pain of uncertain etiology Primary Care Provider: Brandon Foster ED Provider: Froilan Ordonez Home Meds and New Rx's Prescriptions: Continued Emgality Pen 120 mg/mL pen injector 120 mg subcut QMONTH Qty: 1 11RF Nurtec ODT 75 mg tablet,disintegrating 75 mg PO ONCE PRN (Reason: migraine headache) Qty: 10 3RF Rx Instructions: As a single dose. No more than one dose in 24 hours. sumatriptan succinate 100 mg tablet See Rx Instructions PO .COMPLEX Qty: 9 5RF Rx Instructions: take 1 tab at onset of headache; if no relief, may repeat 1 tab after at least 2 hrs; max = 2 tabs/24 hrs PO gabapentin 300 mg capsule 300 mg PO TID nicotine 21-14-7 mg/24 hr patch, TD daily, sequential 1 patch transdermal DAILY Qty: 56 0RF nicotine (polacrilex) 2 mg gum 2 mg buccal Q2H Qty: 100 1RF Claritin Liqui-Gel 10 MG capsule 1 cap PO DAILY Qty: 90 prochlorperazine maleate 10 mg tablet See Rx Instructions .ROUTE .COMPLEX Qty: 20 2RF Dose Instruction: TAKE 1 TABLET BY MOUTH EVERY 8 HOURS NEEDED FOR NAUSEA AND VOMITING, HEADACHE Rx Instructions: TAKE 1 TABLET BY MOUTH EVERY 8 HOURS NEEDED FOR NAUSEA AND VOMITING, HEADACHE nicotine (polacrilex) 4 mg gum 4 mg buccal Q2H Qty: 100 2RF multivitamin Tablet 1 tab PO DAILY metformin 500 mg tablet 1 tab PO BID omeprazole 20 mg capsule,delayed release(DR/EC) 40 mg PO DAILY clonazepam 0.5 mg tablet See Rx Instructions .ROUTE .COMPLEX Rx Instructions: 1 tab in AM, 1 tab at Noon and 2 tab QHS ondansetron 4 mg tablet,disintegrating 4 mg PO Q8H PRNQty: 7 0RF benztropine 0.5 MG tablet 0.5 mg PO BID aspirin,buffd-calcium carb-mag 325 MG tablet 325 mg PO DAILY Risperdal Consta 25 mg/2 mL suspension,extended rel recon 25 mg IM USEASDIRECTD Patient Comments: INJECT ONE SYRINGE INTRAMUSCULARLY ONCE EVERY TWO WEEKS Rx Instructions: every 2 weeks lactulose 10 gram/15 mL solution 20 g PO DIRECTED PRN Patient Comments: TAKE ONE TO TWO TABLESPOONS BY MOUTH NEEDED WHEN 3 DAYS PASS WITHOUT BOWEL MOVEMENT albuterol sulfate 90 mcg/actuation aerosol powdr breath activated 2 inh IH Q6H PRN (Reason: shortness of breath or wheezing) Qty: 1 0RF atenolol 50 mg tablet 75 mg PO DAILY Rx Instructions: To take with 25mg dose for TDD 75mg daily simvastatin 40 mg tablet 80 mg PO DAILY fluoxetine 40 mg capsule 80 mg PO DAILY Discharge Instructions Instructions: Noncardiac Chest Pain (ED), Thrombocytopenia (ED) Additional Instructions: You were seen in the emergency department for your brief episodic chest pain today we performed multiple troponin values which showed no damage to your heart and your EKG is benign, there is no abnormality on your chest x-ray. Your blood work showed no signs of infection, mildly low magnesium which should be corrected with a normal proper diet or oosm-[id number] magnesium supplements. You had anemia which she stated is chronic, you also had lower than usual platelets today, you may have an upper GI bleed like an ulcer in the lining of your stomach that needs to be seen by GI for upper endoscopy and colonoscopy. Please follow-up with your primary care doctor in [place] for referrals to these studies. We provided you with a GI cocktail, if this gave you some relief please try [id number] Pepcid twice a day for 2 weeks to marble setter helper in healing of the gastric lining. You can have a complete blood count rechecked in the coming 1 to 2 weeks to ensure that your platelets are not dropping, this can be done at primary care. You may follow-up with cardiology as an outpatient at some point in the next 3 months for echocardiogram or other cardiac studies. Please return to the emergency department for any chest pain especially exertional onset with shortness of breath, dizziness, sweating, any severe cough or shortness of breath any fever with chest pain and shortness of breath. Referrals: Brandon Foster [Primary Care Provider] - Medical Decision Making This dictation utilizes [id number] dictation software and may contain unedited grammatical errors. 58 y/o M, well-known to the dept., presents to ED today with a chief complaint of chest pain, onset 1 hour prior to arrival. No exertional associations endorsed, states he has some abdominal pain and not quite diarrhea that he states is neither black nor bloody. Onset and characteristics include [ ]. Patients' medical history: morbid obesity, anxiety, mitral valve prolapse, hyperlipidemia, peripheral neuropathy, GERD, schizoaffective disorder, type 2 diabetes mellitus, hypertension. Family and social history: noncontributory. Pertinent exam findings / vital signs include benign cardiopulmonary exam, morbid obesity, periumbilical abdominal tenderness without peritoneal signs. Differential / pathologies of concern include gastroenteritis, viral syndrome, pleurisy, costochondritis, ACS, gastritis, GI Bleeding. Unlikely PE, no tachycardia, resolved CP. Diagnostic studies of: -CBC, CMP, Lipase, Trop I (w/3hr), EKG, CXR, UA, Mg++. -CBC mild anemia, PLTs 108 -CMP shows mild hyponatremia -mild hypomagnesemia -trop I negative w delta negative -EKG shows no signs of ischemia, sinus rhythm, no ST changes, normal QTc -CXR shows no PNA no PTX, no cardiomegaly Interventions of: -magnesium, IV LR. ED Course: Patient well-known to the ED presents with 1 hour chest pain, initial troponin is -3-hour troponin is also negative, chest pain had resolved by this time the patient was sleeping comfortably in exam room at results of 3-hour troponin. I did rehab/pre vocational counselor him that he has anemia which she states is chronic for him and not abnormal at all, I did state that his platelets were mildly low, and that he should follow-up with his doctor in [place] to receive updated EGD and colonoscopy to investigate for possible GI bleeding, unlikely GI hemorrhage. I did provide a GI cocktail and I counseled him that if this provided relief that he should start [id number] Pepcid twice a day for 2-week trial of relief for gastritis or mild upper GI bleeding. Counseled on negative troponins and unlikely ACS, stated he was mildly low on magnesium but we repleted him here in the department and this should normalize with a good diet. Discussed this CBC in the setting of platelets and anemia with no signs of leukocytosis. Findings not consistent with ACS, GI Hemorrhage, PE, sepsis, pneumonia, GI obstruction. HEART Score Low risk, reasonable to follow-up outpatient, though I do not suspect his chest pain was cardiac. Disposition of Chest Pain of Uncertain Etiology. Patient verbalized understanding of the plan and return to ED criteria and engaged in shared decision making. Medical Records Medical records reviewed: Yes I reviewed the patient's medical records. Imaging Data Radiologic Study: Imaging: X-Ray Radiologist's impression: XR CHEST 2V PA LATERAL EXAM: XR CHEST 2V PA LATERAL CLINICAL HISTORY: chest pain TECHNIQUE: 2D digital imaging was performed of the chest. Two images were obtained. PA and lateral views were obtained. COMPARISON: CR XR CHEST 2V PA LATERAL from 05/29/2023 FINDINGS: MEDIASTINUM: Normal. HEART: Normal. PULMONARY VASCULATURE: Normal. LUNGS: Clear. PLEURAL SPACE: No pleural effusion or pneumothorax. BONE:Within normal limits for the patient's age. OTHER FINDINGS:Normal. IMPRESSION: No acute pulmonary findings. Lab Data Labs: Laboratory Tests Range/Units 09/26/23 09/26/23 16:45 19:30 WBC (4.4-10.8) 10^3/uL 6.81 RBC (4.36-5.78) 10^6/uL 3.42 L Hgb (13.5-17.5) g/dL 10.8 L Hct (40.0-50.0) % 30.5 L MCV (80-95) fL 89 MCH (27.0-33.0) pg 31.6 MCHC (32.0-36.0) % 35.4 RDW (11.8-14.1) % 13.0 Plt Count (130-400) 10^3/uL 108 L MPV (8.0-11.0) fL 9.0 Immature Gran % 0.3 Neutrophils % 73.2 Lymphocytes % 14.4 Monocytes % 9.7 Eosinophils % 2.3 Basophils % 0.1 Nucleated RBC % (0.0-0.3) % 0.0 Absolute Neutrophils (1.2-6.7) 10^3/uL 4.98 Absolute Lymphocytes (1.2-3.4) 10^3/uL 0.98 L Absolute Monocytes (0.1-0.8) 10^3/uL 0.66 Absolute Eosinophils (0.0-0.7) 10^3/uL 0.16 Absolute Basophils (0.0-0.2) 10^3/uL 0.01 Sodium (136-145) mmol/L 129 L Potassium (3.5-5.1) mmol/L 4.4 Chloride (98-107) mmol/L 95 L Carbon Dioxide (21.0-32.0) mmol/L 29.9 Anion Gap (3-11) mmol/L 4.1 BUN (7-18) mg/dL 7 Creatinine (0.70-1.30) mg/dL 0.7 Est GFR (CKD-EPI 2020) (mL/min/1.73m2) 106.80 Glucose (74-106) mg/dL 116 H Calcium (8.5-10.1) mg/dL 8.3 L Magnesium (1.8-2.4) mg/dL 1.6 L Total Bilirubin (0.2-1.0) mg/dL 0.4 AST (15-37) U/L 10 L ALT (16-63) U/L 13 L Alkaline Phosphatase (46-116) U/L 47 Troponin I (<or=60) ng/L < 50 < 50 Total Protein (6.4-8.2) g/dL 7.0 Albumin (3.4-5.0) g/dL 2.9 L Lipase (16-77) U/L < 10 L HPI General Date/Time Provider Initiated Documentation: 09/26/23 16:13 . HPI Narrative: 58 year-old male presents to ED today by EMS with a chief complaint of chest pain, nausea, abdominal pain, soft stools- with onset of chest pain about 1 hour prior to arrival. Quality described as L sided chest pain that is not worse with walking/exertion, no radiation to dizziness, diaphoresis, shortness of breath, endorses mild chronic cough, endorses some loose stools- denies black/bloody stools, denies nausea/vomiting, denies history of CO. Severity is described as 4-5/10. Palliating factors include nothing specific attempted - 324mg ASA given by EMS en route. Provoking factors include nothing specific. Patient not anticoagulated. Related Data Home Medications Medication Instructions Recorded Confirmed loratadine 10 mg capsule (Claritin 1 cap PO DAILY #90 tabs 12/16/14 05/29/23 Liqui-Gel) aspirin,buffered (calcium 325 mg PO DAILY 11/18/16 05/29/23 carbonate-magnesium) 325 mg tablet benztropine 0.5 mg tablet 0.5 mg PO BID 11/18/16 05/29/23 lactulose 10 gram/15 mL oral 20 g PO DIRECTED PRN 10/03/20 05/29/23 solution risperidone microspheres 25 mg/2 25 mg IM USEASDIRECTD 10/03/20 05/29/23 mL intramuscular susp,ext release (Risperdal Consta) albuterol sulfate 90 mcg/actuation 2 inh inhalation Q6H PRN shortness 12/15/20 05/29/23 breath activated powder inhaler of breath or wheezing #1 ea multivitamin 1 tab PO DAILY 01/26/21 05/29/23 metformin 500 mg tablet 1 tab PO BID 03/18/22 05/29/23 omeprazole 20 mg capsule,delayed 40 mg PO DAILY 03/18/22 05/29/23 release atenolol 50 mg tablet 75 mg PO DAILY 09/26/22 05/29/23 prochlorperazine maleate 10 mg See Rx Instructions .Route 01/08/23 05/29/23 tablet .COMPLEX #20 tabs clonazepam 0.5 mg tablet See Rx Instructions .Route .COMPLEX 03/04/23 05/29/23 fluoxetine 40 mg capsule 80 mg PO DAILY 03/08/23 05/29/23 galcanezumab-gnlm 120 mg/mL 120 mg subcut QMONTH #1 mL 03/08/23 05/29/23 subcutaneous pen injector (Emgality Pen) rimegepant 75 mg disintegrating 75 mg PO ONCE PRN migraine 03/08/23 05/29/23 tablet (Nurtec ODT) headache #10 tabs sumatriptan succinate 100 mg tablet See Rx Instructions PO .COMPLEX #9 03/08/23 05/29/23 tabs gabapentin 300 mg capsule 300 mg PO TID 03/27/23 05/29/23 nicotine (polacrilex) 2 mg gum 2 mg buccal Q2H #100 ea 03/27/23 05/29/23 nicotine 1 patch transdermal DAILY #56 03/27/23 05/29/23 21mg/24hr-14mg/24hr-7mg/24hr daily patches transderm patches,sequentl simvastatin 40 mg tablet 80 mg PO DAILY 03/27/23 05/29/23 nicotine (polacrilex) 4 mg gum 4 mg buccal Q2H #100 ea 04/03/23 05/29/23 ondansetron 4 mg disintegrating 4 mg PO Q8H PRN #7 tabs 05/03/23 05/29/23 tablet Previous Rx's Medication Instructions Recorded albuterol sulfate 90 mcg/actuation 2 inh inhalation Q6H PRN shortness 12/15/20 breath activated powder inhaler of breath or wheezing #1 ea prochlorperazine maleate 10 mg See Rx Instructions .Route 01/08/23 tablet .COMPLEX #20 tabs galcanezumab-gnlm 120 mg/mL 120 mg subcut QMONTH #1 mL 03/08/23 subcutaneous pen injector (Emgality Pen) rimegepant 75 mg disintegrating 75 mg PO ONCE PRN migraine 03/08/23 tablet (Nurtec ODT) headache #10 tabs sumatriptan succinate 100 mg tablet See Rx Instructions PO .COMPLEX #9 03/08/23 tabs nicotine (polacrilex) 2 mg gum 2 mg buccal Q2H #100 ea 03/27/23 nicotine 1 patch transdermal DAILY #56 03/27/23 21mg/24hr-14mg/24hr-7mg/24hr daily patches transderm patches,sequentl nicotine (polacrilex) 4 mg gum 4 mg buccal Q2H #100 ea 04/03/23 ondansetron 4 mg disintegrating 4 mg PO Q8H PRN #7 tabs 05/03/23 tablet Allergies Allergy/AdvReac Type Severity Reaction Status Date / Time buspirone Allergy Verified 05/29/23 07:46 paliperidone Allergy Verified 05/29/23 07:46 paroxetine HCl [From Paxil] Allergy Verified 05/29/23 07:46 sertraline Allergy Verified 05/29/23 07:46 ziprasidone [From Geodon] Allergy Other (See Verified 05/29/23 07:46 Comment) aripiprazole [From Abilify] AdvReac Intermediate INVOLUNTARY Verified 05/29/23 07:46 MUSCLE MOVEMENTS divalproex sodium AdvReac Intermediate INVOLUNTARY Verified 05/29/23 07:46 [From Depakote] MUSCLE MOVEMENTS mirtazapine AdvReac Intermediate INVOLUNTARY Verified 05/29/23 07:46 MUSCLE MOVEMENTS risperidone AdvReac Intermediate INVOLUNTARY Verified 05/29/23 07:46 MUSCLE MOVEMENTS benztropine mesylate AdvReac elevated Verified 05/29/23 07:46 [From Cogentin] blood sugars enviornmental Allergy Mild Wheezing Uncoded 05/29/23 07:46 General Stated Complaint: Chest Pain CARLOS: 3 Review of Systems All systems reviewed & are unremarkable except as noted in HPI and below PFSH All Active Problems (Updated 09/26/23 @ 20:13 by JORDANA Holguin) Chest pain of uncertain etiology (Acute) Nicotine dependence (Acute) Dyspnea on exertion (Acute) Shortness of breath (Acute) Schizoaffective disorder (Acute 09/07/14) Rebekah Mariscal [facility] Hypothyroidism (acquired) (Acute 09/07/14) Hypercholesterolemia (Chronic 09/07/14) pt insists on lipitor 80 mg due to family hx GERD (gastroesophageal reflux disease) (Acute 09/07/14) Diabetes mellitus type 2 in obese (Acute 09/09/14) Depression (Acute 10/02/14) Left-sided chest wall pain (Acute) Hypertension (Chronic) pt requests brand name Tenormin vs atenolol 04/02/18 Chest pain (Acute) Chronic headache (Acute) Migraine headache without aura (Acute) Migraine (Chronic) Obesity (Chronic) BMI 52 Poor dentition (Acute) Tobacco use disorder (Chronic) started 2013 1.5 ppd, pipe 1-7/week, QUIT LATE OCT 2021 Allergic rhinitis (Chronic) lortadine Hiatal hernia (Chronic) protonix not effective, nexium works better 02/12/18 Anemia (Chronic) Broken teeth (Chronic) Drug-seeking behavior (Chronic ~09/20/21) Requests Ritalin from providers Medication overuse headache (Acute) Medical History Anxiety Dental caries Hyperlipidemia Mitral valve prolapse Peripheral neuropathy Trigeminal neuralgia Surgical History No significant past surgical history Family History Father Heart disease [place] Social History Smoking/Tobacco Use Status: Former Tobacco Use Smoking risk assessment performed?: Yes Alcohol Intake: never Drug use: Never Substance use type: does not use Adopted: No Caregiver/Support person: No Foster care: No Household members: none Housing: apartment Number of Children: 2 number of grandchildren: 1 Communication Needs: Corrective Lenses Education Level: college Do you need help understanding health information?: Always current occupation: Unemployed/Leave of absence Sexually active: No Do you think of yourself as: Decline to provide Current gender identity: male What type of physical activity do you participate in: other Details: weight lifting Frequency: 3-4 times per week Magalie/Scientology: Sikhism Seatbelt use: always Drive 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 SKIN: Warm, pink, dry, intact, without rashes/lesions/ulcerations. HEAD: Normocephalic, atraumatic, normal hair distribution for gender/age. EYES: Pupils PERRLA, EOMs intact without nystagmus, normal conjunctiva, no exudates on lids/lashes. ENT: Nares patent, no circumoral cyanosis, no facial swelling NECK: Supple, trachea midline, painless cervical ROM. LUNGS/CHEST: Lungs CTA bilaterally- no rhonchi/rales/wheezes diffusely, non- labored respirations, normal A/P diameter, symmetrical expansion, no chest wall deformity HEART (CV/PV): Regular rate and rhythm without murmur, no peripheral edema, no JVD. ABDOMEN: Soft, non-distended, no guarding, mild periumbilical tenderness without Rovsing's, no rebound tenderness, no LLQ tenderness. MSK: Normal ROM, no swelling/deformity to bilateral UEs or LEs, moving all extremities without weakness, no cyanosis, spine midline without tenderness, normal curvature. NEURO: Mental Status AAOx4 - alert to person, place, time, events No facial droop, no forehead involvement. Motor: No focal weakness - strength 5/5 in bilateral UEs and LEs, proximal and distal, symmetric. Sensory: sensation intact to light touch globally. Gait normal: patient ambulated at baseline, morbid obesity, prefers wheelchair PSYCH: euthymic, cooperative, pleasant, appropriate speech Course Vital Signs Vital signs: Vital Signs Temperature 35.8 C L 09/26/23 16:09 Pulse 72 09/26/23 16:09 Respiratory Rate 16 09/26/23 16:09 Blood Pressure 142/80 H 09/26/23 16:09 Pulse Oximetry 96 09/26/23 16:09 Temperature 35.8 C L 09/26/23 16:09 Temperature Source Tympanic 09/26/23 16:09 Pulse 72 09/26/23 16:09 Respiratory Rate 14 09/26/23 16:12 Respiratory Effort Normal 09/26/23 16:12 Respiratory Depth Normal 09/26/23 16:12 Respiratory Pattern Normal 09/26/23 16:12 Blood Pressure 142/80 H 09/26/23 16:09 Blood Pressure Position Sitting 09/26/23 16:09 Pulse Oximetry 96 09/26/23 16:09 Oxygen Delivery Method Room Air 09/26/23 16:09 Oxygen Flow Rate 0 09/26/23 16:09 Pain Level 7 09/26/23 16:09
[2023-09-26 16:53] LABS: Abs Immature Grans 0.02 10^3/uL (0.0-0.06); Absolute Basophil Count 0.01 10^3/uL (0.0-0.2); Absolute Eosinophil Count 0.16 10^3/uL (0.0-0.7); Absolute Lymphocyte Count 0.98 10^3/uL (1.2-3.4); Absolute Monocyte Count 0.66 10^3/uL (0.1-0.8); Absolute Neutrophil Count 4.98 10^3/uL (1.2-6.7); Basophils % 0.1; Eosinophils % 2.3; HCT 30.5 % (40.0-50.0); HGB 10.8 g/dL (13.5-17.5); Immature Grans % 0.3; Lymphocytes % 14.4; MCH 31.6 pg (27.0-33.0); MCHC 35.4 % (32.0-36.0); MCV 89 fL (80-95); Monocytes % 9.7; Neutrophils % 73.2; Platelet Count 108 10^3/uL (130-400); RBC 3.42 10^6/uL (4.36-5.78); RDW-SD 41.9 fL; WBC 6.81 10^3/uL (4.4-10.8)
[2023-09-26 17:07] LABS: ALT 13 U/L (16-63); AST 10 U/L (15-37); Albumin 2.9 g/dL (3.4-5.0); Alkaline Phosphatase 47 U/L (46-116); Anion Gap 4.1 mmol/L (3-11); BUN 7 mg/dL (7-18); Bilirubin, Total 0.4 mg/dL (0.2-1.0); CO2 29.9 mmol/L (21.0-32.0); CREATININE 0.7 mg/dL (0.70-1.30); Calcium 8.3 mg/dL (8.5-10.1); Chloride 95 mmol/L (98-107); Glucose 116 mg/dL (74-106); Lipase < 10 U/L (16-77); Magnesium 1.6 mg/dL (1.8-2.4); Potassium 4.4 mmol/L (3.5-5.1); Sodium 129 mmol/L (136-145); Troponin I < 50 ng/L (<or=60)
[2023-09-26] MEDS: MAGNESIUM SULFATE 1 GM/100 ML BAG IVPB (17:25)
[2023-09-26] MEDS: Magnesium Oxide 400 MG TAB PO (17:25)
[2023-09-26] MEDS: Lactated Ringers 1,000 ML 1000 ML IV (17:26)
[2023-09-26 19:56] LABS: Troponin I < 50 ng/L (<or=60)
[2023-09-26 20:36] VITALS: BP 136/74; PULSE 72; RESP 14; O2SAT 98
== END 2023-09-26 20:38 | disposition home or self-care (01) ==
PROVIDERS: Emergency Provider Physician Assistant; PCP Family Medicine
DX: R07.9 Chest pain, unspecified (principal); R11.0 Nausea; E87.1 Hypo-osmolality and hyponatremia; E83.42 Hypomagnesemia; E78.5 Hyperlipidemia, unspecified; Z79.84 Long term (current) use of oral hypoglycemic drugs; Z79.82 Long term (current) use of aspirin
CPT/HCPCS: 36415; 80053; 83690; 93005; 96365; 99283; 71046; 83735; 84484; 85025; 93010; J3475

== ENCOUNTER 2023-09-29 08:24 | Emergency (ER) | payer MEDICAID, SELFPAY ==
[2023-09-29] VITALS (31 sets, daily range): BP systolic 111–147; BP diastolic 66–83; PULSE 55–106; RESP 12–20; TEMP 37; O2SAT 92–99
--- NOTE | 2023-09-29 08:15 | RT.EKG_ITS ---
APPROVED REPORT Exam: Resting ECG Reason for Exam: CHEST PAIN Patient Location: E HR:69 bpm ECG Measurements Heart Rate 69 AXIS IA 203 P 64 QRSd 100 QRS 108 QT 422 T 13 QTc 454 Conclusion Sinus rhythm...normal P axis, V-rate 60- 99 Borderline prolonged IA interval...IA >202, V-rate 50- 90 Right axis deviation...QRS axis (100,269) New downgoing T wave III vs prior 09/26/23
--- NOTE | 2023-09-29 08:41 | ED.GENADUL_ITS ---
Discharge Plan Disposition Patient Disposition: Home Discharge Details Clinical Impression: Anxiety, Hyponatremia Primary Care Provider: Brandon Foster ED Provider: Emi Guillory Home Meds and New Rx's Prescriptions: Continued Emgality Pen 120 mg/mL pen injector 120 mg subcut QMONTH Qty: 1 11RF Nurtec ODT 75 mg tablet,disintegrating 75 mg PO ONCE PRN (Reason: migraine headache) Qty: 10 3RF Rx Instructions: As a single dose. No more than one dose in 24 hours. sumatriptan succinate 100 mg tablet See Rx Instructions PO .COMPLEX Qty: 9 5RF Rx Instructions: take 1 tab at onset of headache; if no relief, may repeat 1 tab after at least 2 hrs; max = 2 tabs/24 hrs PO gabapentin 300 mg capsule 300 mg PO TID nicotine 21-14-7 mg/24 hr patch, TD daily, sequential 1 patch transdermal DAILY Qty: 56 0RF nicotine (polacrilex) 2 mg gum 2 mg buccal Q2H Qty: 100 1RF Claritin Liqui-Gel 10 MG capsule 1 cap PO DAILY Qty: 90 prochlorperazine maleate 10 mg tablet See Rx Instructions .ROUTE .COMPLEX Qty: 20 2RF Dose Instruction: TAKE 1 TABLET BY MOUTH EVERY 8 HOURS NEEDED FOR NAUSEA AND VOMITING, HEADACHE Rx Instructions: TAKE 1 TABLET BY MOUTH EVERY 8 HOURS NEEDED FOR NAUSEA AND VOMITING, HEADACHE nicotine (polacrilex) 4 mg gum 4 mg buccal Q2H Qty: 100 2RF multivitamin Tablet 1 tab PO DAILY metformin 500 mg tablet 1 tab PO BID omeprazole 20 mg capsule,delayed release(DR/EC) 40 mg PO DAILY clonazepam 0.5 mg tablet See Rx Instructions .ROUTE .COMPLEX Rx Instructions: 1 tab in AM, 1 tab at Noon and 2 tab QHS ondansetron 4 mg tablet,disintegrating 4 mg PO Q8H PRNQty: 7 0RF benztropine 0.5 MG tablet 0.5 mg PO BID aspirin,buffd-calcium carb-mag 325 MG tablet 325 mg PO DAILY Risperdal Consta 25 mg/2 mL suspension,extended rel recon 25 mg IM USEASDIRECTD Patient Comments: INJECT ONE SYRINGE INTRAMUSCULARLY ONCE EVERY TWO WEEKS Rx Instructions: every 2 weeks lactulose 10 gram/15 mL solution 20 g PO DIRECTED PRN Patient Comments: TAKE ONE TO TWO TABLESPOONS BY MOUTH NEEDED WHEN 3 DAYS PASS WITHOUT BOWEL MOVEMENT albuterol sulfate 90 mcg/actuation aerosol powdr breath activated 2 inh IH Q6H PRN (Reason: shortness of breath or wheezing) Qty: 1 0RF atenolol 50 mg tablet 75 mg PO DAILY Rx Instructions: To take with 25mg dose for TDD 75mg daily simvastatin 40 mg tablet 80 mg PO DAILY fluoxetine 40 mg capsule 80 mg PO DAILY Discharge Instructions Instructions: Hyponatremia (ED), Anxiety (ED) Additional Instructions: Your counselor's office should call you on Sunday to move your appointment up. Use your coping skills as discussed. MEAT MARKET MANAGER should be supporting you as well. Return to ED for thoughts of hurting yourself or others. Medical Decision Making Patient had 2 serial troponins and a D-dimer which were negative. 1245 for psychiatric evaluation. This is essentially what he wants. 1450. Case discussed with Thanh from [facility]. She knows Avery well. In fact she spoke to him this morning on the telephone. They discussed once again him using his coping skills for anxiety and depression. He feels like he needs his appointment with his behavioral health case manager Faviola moved up. Thanh will speak to her on Sunday to see if they can move his appointment up. She again co nfirmed that Avery is not suicidal or homicidal. He does want to go home and no longer feels like he needs to be admitted. Patient will also follow-up with his primary care doc for sodium of 126. This has been steadily dropping. Medical Records Medical records reviewed: Yes I reviewed the patient's medical records. Imaging Data Radiologic Study: Imaging: X-Ray (CXR: NAD) Lab Data Lab results reviewed: Yes I reviewed the patient's lab results. Lab results narrative: Patient's tropes and dimer were again negative. Sodium was 126 which is down a little bit from several days ago. His chloride is 93, glucose 142, magnesium 1.7, H&H 10.3 and 29.6 which are close to his baseline from several days ago. Urobilinogen was 4. ECG Data Attestation: I personally reviewed and interpreted this ECG (s) as follows: (Normal sinus rhythm at 70, RAD, little change versus 09/26/2023 except new downgoing T wave in III) HPI General Date/Time Provider Initiated Documentation: 09/29/23 08:39 . HPI Narrative: This 58-year-old male patient presents with a chief complaint of wanting to be admitted for psychiatric treatment. Patient has a history of schizoaffective disorder as well as anxiety and depression. He says he does not feel well and wants to be admitted so that somebody can help him work through his problems. He denies suicidal or homicidal ideation. He also has nonspecific chest pain that began an hour and a half prior to arrival. The patient is here frequently with chest pain and was last seen 3 days ago. He says that anxiety medicine usually makes it better. He says sometimes when he takes a deep breath he feels better and sometimes it makes his pain worse. There is no radiation. He describes the discomfort as just pain. It is mild to moderate in severity. He has no pedal edema or calf pain. There is no difficulty breathing. He has no fever or URI symptoms. There is no belly pain, vomiting, or diarrhea. He has no dysuria. Related Data Home Medications Medication Instructions Recorded Confirmed loratadine 10 mg capsule (Claritin 1 cap PO DAILY #90 tabs 12/16/14 05/29/23 Liqui-Gel) aspirin,buffered (calcium 325 mg PO DAILY 11/18/16 05/29/23 carbonate-magnesium) 325 mg tablet benztropine 0.5 mg tablet 0.5 mg PO BID 11/18/16 05/29/23 lactulose 10 gram/15 mL oral 20 g PO DIRECTED PRN 10/03/20 05/29/23 solution risperidone microspheres 25 mg/2 25 mg IM USEASDIRECTD 10/03/20 05/29/23 mL intramuscular susp,ext release (Risperdal Consta) albuterol sulfate 90 mcg/actuation 2 inh inhalation Q6H PRN shortness 12/15/20 05/29/23 breath activated powder inhaler of breath or wheezing #1 ea multivitamin 1 tab PO DAILY 01/26/21 05/29/23 metformin 500 mg tablet 1 tab PO BID 03/18/22 05/29/23 omeprazole 20 mg capsule,delayed 40 mg PO DAILY 03/18/22 05/29/23 release atenolol 50 mg tablet 75 mg PO DAILY 09/26/22 05/29/23 prochlorperazine maleate 10 mg See Rx Instructions .Route 01/08/23 05/29/23 tablet .COMPLEX #20 tabs clonazepam 0.5 mg tablet See Rx Instructions .Route .COMPLEX 03/04/23 05/29/23 fluoxetine 40 mg capsule 80 mg PO DAILY 03/08/23 05/29/23 galcanezumab-gnlm 120 mg/mL 120 mg subcut QMONTH #1 mL 03/08/23 05/29/23 subcutaneous pen injector (Emgality Pen) rimegepant 75 mg disintegrating 75 mg PO ONCE PRN migraine 03/08/23 05/29/23 tablet (Nurtec ODT) headache #10 tabs sumatriptan succinate 100 mg tablet See Rx Instructions PO .COMPLEX #9 03/08/23 05/29/23 tabs gabapentin 300 mg capsule 300 mg PO TID 03/27/23 05/29/23 nicotine (polacrilex) 2 mg gum 2 mg buccal Q2H #100 ea 03/27/23 05/29/23 nicotine 1 patch transdermal DAILY #56 03/27/23 05/29/23 21mg/24hr-14mg/24hr-7mg/24hr daily patches transderm patches,sequentl simvastatin 40 mg tablet 80 mg PO DAILY 03/27/23 05/29/23 nicotine (polacrilex) 4 mg gum 4 mg buccal Q2H #100 ea 04/03/23 05/29/23 ondansetron 4 mg disintegrating 4 mg PO Q8H PRN #7 tabs 05/03/23 05/29/23 tablet Previous Rx's Medication Instructions Recorded albuterol sulfate 90 mcg/actuation 2 inh inhalation Q6H PRN shortness 12/15/20 breath activated powder inhaler of breath or wheezing #1 ea prochlorperazine maleate 10 mg See Rx Instructions .Route 01/08/23 tablet .COMPLEX #20 tabs galcanezumab-gnlm 120 mg/mL 120 mg subcut QMONTH #1 mL 03/08/23 subcutaneous pen injector (Emgality Pen) rimegepant 75 mg disintegrating 75 mg PO ONCE PRN migraine 03/08/23 tablet (Nurtec ODT) headache #10 tabs sumatriptan succinate 100 mg tablet See Rx Instructions PO .COMPLEX #9 03/08/23 tabs nicotine (polacrilex) 2 mg gum 2 mg buccal Q2H #100 ea 03/27/23 nicotine 1 patch transdermal DAILY #56 03/27/23 21mg/24hr-14mg/24hr-7mg/24hr daily patches transderm patches,sequentl nicotine (polacrilex) 4 mg gum 4 mg buccal Q2H #100 ea 04/03/23 ondansetron 4 mg disintegrating 4 mg PO Q8H PRN #7 tabs 05/03/23 tablet Allergies Allergy/AdvReac Type Severity Reaction Status Date / Time buspirone Allergy Verified 05/29/23 07:46 paliperidone Allergy Verified 05/29/23 07:46 paroxetine HCl [From Paxil] Allergy Verified 05/29/23 07:46 sertraline Allergy Verified 05/29/23 07:46 ziprasidone [From Geodon] Allergy Other (See Verified 05/29/23 07:46 Comment) aripiprazole [From Abilify] AdvReac Intermediate INVOLUNTARY Verified 05/29/23 07:46 MUSCLE MOVEMENTS divalproex sodium AdvReac Intermediate INVOLUNTARY Verified 05/29/23 07:46 [From Depakote] MUSCLE MOVEMENTS mirtazapine AdvReac Intermediate INVOLUNTARY Verified 05/29/23 07:46 MUSCLE MOVEMENTS risperidone AdvReac Intermediate INVOLUNTARY Verified 05/29/23 07:46 MUSCLE MOVEMENTS benztropine mesylate AdvReac elevated Verified 05/29/23 07:46 [From Cogentin] blood sugars enviornmental Allergy Mild Wheezing Uncoded 05/29/23 07:46 General Stated Complaint: Anxiety CARLOS: 3 Review of Systems Constitutional Constitutional: Denies chills, Denies fever(s), Denies headache(s) and Denies weakness Eyes Eyes: Denies diplopia and Reports other (no redness) ENT Ears, Nose, Mouth, and Throat: Denies otalgia, Denies headache(s), Denies nasal congestion, Denies nasal discharge, Denies neck pain and Denies sore throat Cardiovascular Cardiovascular: Reports chest pain, Denies palpitations and Denies dyspnea Respiratory Respiratory: Denies cough and Denies dyspnea Gastrointestinal Gastrointestinal: Denies abdominal pain, Denies diarrhea, Denies nausea and Denies vomiting Genitourinary Genitourinary: Denies difficulty urinating and Denies dysuria Musculoskeletal Musculoskeletal: Denies myalgias, Denies muscle weakness, Denies neck pain, Denies numbness and Reports other (edema) Integumentary/Breasts Skin/Breast: Denies change in pigmentation and Denies rash Neurologic Neurologic: Denies headache(s), Denies numbness and Denies weakness Endocrine Endocrine: Denies palpitations PFSH All Active Problems (Updated 09/29/23 @ 14:56 by Emi Guillory MD) Hyponatremia (Acute) Anxiety (Chronic) Chest pain of uncertain etiology (Acute) Nicotine dependence (Acute) Dyspnea on exertion (Acute) Shortness of breath (Acute) Schizoaffective disorder (Acute 09/07/14) Rebekah Mariscal [facility] 09/2014- [facility] inpatient Hypothyroidism (acquired) (Acute 09/07/14) Hypercholesterolemia (Chronic 09/07/14) pt insists on lipitor 80 mg due to family hx GERD (gastroesophageal reflux disease) (Acute 09/07/14) Diabetes mellitus type 2 in obese (Acute 09/09/14) Depression (Acute 10/02/14) Left-sided chest wall pain (Acute) Hypertension (Chronic) pt requests brand name Tenormin vs atenolol 04/02/18 Chest pain (Acute) Chronic headache (Acute) Migraine headache without aura (Acute) Migraine (Chronic) Obesity (Chronic) BMI 52 Poor dentition (Acute) Tobacco use disorder (Chronic) started 2013 1.5 ppd, pipe 1-7/week, QUIT LATE OCT 2021 Allergic rhinitis (Chronic) lortadine Hiatal hernia (Chronic) protonix not effective, nexium works better 02/12/18 Anemia (Chronic) Broken teeth (Chronic) Drug-seeking behavior (Chronic ~09/20/21) Requests Ritalin from providers Medication overuse headache (Acute) Medical History Trigeminal neuralgia Anxiety Mitral valve prolapse Hyperlipidemia Dental caries Peripheral neuropathy Surgical History No significant past surgical history Family History Father Heart disease [place] Social History Smoking/Tobacco Use Status: Former Tobacco Use Smoking risk assessment performed?: Yes Alcohol Intake: never Drug use: Never Substance use type: does not use Adopted: No Caregiver/Support person: No Foster care: No Household members: none Housing: apartment Number of Children: 2 number of grandchildren: 1 Communication Needs: Corrective Lenses Education Level: college Do you need help understanding health information?: Always current occupation: Unemployed/Leave of absence Sexually active: No Do you think of yourself as: Decline to provide Current gender identity: male What type of physical activity do you participate in: other Details: weight lifting Frequency: 3-4 times per week Magalie/Zoroastrian: Zoroastrian Seatbelt use: always Drive intox or ride w/intox bookmobile 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 Exam Const General: no acute distress, well developed, well groomed and not in acute distress Nutritional Appearance: well nourished Orientation: alert and oriented x3 HENMT Head: normocephalic and atraumatic Ears: external ears normal Mouth: oropharynx normal and moist mucous membranes Throat: posterior oropharynx normal Eyes Conjunctivae: conjunctivae normal Neck Neck: full ROM and supple Chest Chest: normal inspection of the chest, abnormal palpation of chest wall and other (mild TTP L chest wall) Resp Effort & Inspection: normal respiratory effort Auscultation: clear to auscultation bilaterally Cardio Rate: regular rate Rhythm: regular rhythm Heart Sounds: no murmurs and no rubs GI Inspection: normal to inspection Palpation: soft, nontender and other (non distended) Auscultation: normal bowel sounds Skin General skin exam: no rashes or lesions noted and other (pink, warm, dry) Neuro General: patient alert, patient awake and patient oriented x3 Speech: speech normal Motor: other (HERRERA) Sensory Exam: no sensory deficits noted Extrem General: normal to inspection, full ROM and pedal edema present Right lower extremity: lower leg (no edema or calf TTP) Left lower extremity: lower leg (no edema or calf TTP) Psych Mental Status: mental status grossly normal Speech and Movement: speech and movement normal Affect: normal affect Course Vital Signs Vital signs: Vital Signs Temperature 37 C 09/29/23 08:25 Pulse 69 09/29/23 08:25 Respiratory Rate 20 09/29/23 08:25 Blood Pressure 147/77 H 09/29/23 08:25 Pulse Oximetry 99 09/29/23 08:25 Temperature 37 C 09/29/23 08:25 Temperature Source Temporal Artery Scan 09/29/23 08:25 Pulse 69 09/29/23 08:25 Respiratory Rate 20 09/29/23 08:25 Blood Pressure 147/77 H 09/29/23 08:25 Blood Pressure Position Sitting 09/29/23 08:25 Pulse Oximetry 99 09/29/23 08:25 Oxygen Delivery Method Room Air 09/29/23 08:25 Oxygen Flow Rate 0 09/29/23 08:25 Pain Level 5 09/29/23 08:25
[2023-09-29 09:23] LABS: Abs Immature Grans 0.03 10^3/uL (0.0-0.06); Absolute Basophil Count 0.02 10^3/uL (0.0-0.2); Absolute Eosinophil Count 0.18 10^3/uL (0.0-0.7); Absolute Lymphocyte Count 1.62 10^3/uL (1.2-3.4); Absolute Monocyte Count 0.55 10^3/uL (0.1-0.8); Absolute Neutrophil Count 2.47 10^3/uL (1.2-6.7); Basophils % 0.4; Eosinophils % 3.7; HCT 29.6 % (40.0-50.0); HGB 10.3 g/dL (13.5-17.5); Immature Grans % 0.6; Lymphocytes % 33.3; MCH 31.2 pg (27.0-33.0); MCHC 34.8 % (32.0-36.0); MCV 90 fL (80-95); MPV 9.2 fL (8.0-11.0); Monocytes % 11.3; Neutrophils % 50.7; Platelet Count 101 10^3/uL (130-400); RDW-SD 42.5 fL; WBC 4.87 10^3/uL (4.4-10.8)
[2023-09-29 09:41] LABS: ALT 17 U/L (16-63); AST 12 U/L (15-37); Alkaline Phosphatase 45 U/L (46-116); Anion Gap 2.8 mmol/L (3-11); BUN 8 mg/dL (7-18); Bilirubin, Total 0.3 mg/dL (0.2-1.0); CO2 30.2 mmol/L (21.0-32.0); CREATININE 0.9 mg/dL (0.70-1.30); Calcium 8.7 mg/dL (8.5-10.1); Chloride 93 mmol/L (98-107); Glucose 142 mg/dL (74-106); Magnesium 1.7 mg/dL (1.8-2.4); Potassium 4.2 mmol/L (3.5-5.1); Sodium 126 mmol/L (136-145); Total Protein 6.9 g/dL (6.4-8.2); Troponin I < 50 ng/L (<or=60)
[2023-09-29] MEDS: LORazepam 1 MG TAB PO (09:47)
[2023-09-29 09:48] LABS: ETHANOL BLOOD < 3.0 mg/dL (<10)
[2023-09-29 09:51] LABS: *AMPHETAMINES SCREEN URINE Negative (Negative); *BARBITURATES SCREEN URINE Negative (Negative); *BENZODIAZEPINES SCREEN URINE Negative (Negative); Cannabinoids THC Negative (Negative); Cocaine Screen,Urine Negative (Negative); METHADONE URINE SCREEN Negative (Negative); OPIATES URINE SCREEN Negative (Negative)
[2023-09-29 09:51] LABS: D-Dimer 461 ng/mlFEU (<500)
[2023-09-29 09:53] LABS: Tricyclic Antidepressants Negative (Negative)
[2023-09-29 09:57] LABS: Bilirubin Negative (Negative); Blood Trace-intact (Negative); Clarity Clear (Clear); Glucose Negative (Negative); Ketones Negative (Negative); Leukocyte Esterase Negative (Negative); Nitrite Negative (Negative)
[2023-09-29 10:01] LABS: Epithelial Cells Negative HPF (Negative); WBC 0-2 HPF (0-5)
[2023-09-29 10:02] LABS: Bacteria Rare HPF (Negative); C & S Indicated? No; Casts Negative LPF (Negative); Crystals Negative HPF (Negative); Mucus Negative (Negative)
[2023-09-29 10:06] LABS: Acetaminophen 5 ug/mL (10-30); Salicylate < 2.8 mg/dL (<2.8)
[2023-09-29 12:13] LABS: Troponin I < 50 ng/L (<or=60)
--- NOTE | 2023-09-29 12:30 | DI.RAD_ITS ---
Exam(s) XR PORTABLE CHEST AP EXAM: XR PORTABLE CHEST AP CLINICAL HISTORY: CP TECHNIQUE: 2D digital imaging was performed of the chest. Two images were obtained. AP views were obtained. COMPARISON: CR XR CHEST 2V PA LATERAL from 09/26/2023 FINDINGS: MEDIASTINUM: Normal. HEART: Stable cardiomegaly. PULMONARY VASCULATURE: Normal. LUNGS: Clear. PLEURAL SPACE: No pleural effusion or pneumothorax. BONE:Within normal limits for the patient's age. OTHER FINDINGS:Normal. IMPRESSION: No acute pulmonary findings. DATA REPOSITORY: RADIATION DOSE DELIVERED:
--- NOTE | 2023-09-29 13:28 | DI.VRAD_ITS ---
PROCEDURE INFORMATION: Exam: XR Chest Exam date and time: 09/29/2023 12:56 PM Age: 58 years old Clinical indication: Pain; Chest pressure TECHNIQUE: Imaging protocol: Radiologic exam of the chest. Views: 1 view. COMPARISON: CR XR CHEST 2V PA LATERAL 26/09/2023 17:13 FINDINGS: Limitations: Low lung volumes. No focal consolidation. The costophrenic angles are clear. Lungs: Unremarkable. No consolidation. Pleural spaces: Unremarkable. No pleural effusion. No pneumothorax. Heart/Mediastinum: Stable cardiomegaly. Bones/joints: Multilevel degenerative changes of the thoracic spine. IMPRESSION: 1. Stable chest x-ray findings compared with prior study. 2. No acute cardiopulmonary findings. Dictated and Authenticated by: Mellisa Holt MD. Ordering:CUCO Middleton MD
--- NOTE | 2023-09-29 14:57 | NUR.NOTE ---
Referral given to Care Management to PCP/Brandon Foster; follow up sodium of 126 to be seen this week. Nursing Note:
== END 2023-09-29 15:55 | disposition home or self-care (01) ==
PROVIDERS: Emergency Provider Emergency Medicine; PCP Family Medicine
DX: R07.9 Chest pain, unspecified (principal); F41.9 Anxiety disorder, unspecified; F32.9 Major depressive disorder, single episode, unspecified; E87.1 Hypo-osmolality and hyponatremia; E78.5 Hyperlipidemia, unspecified; Z79.84 Long term (current) use of oral hypoglycemic drugs; Z79.82 Long term (current) use of aspirin; F25.9 Schizoaffective disorder, unspecified
CPT/HCPCS: 36415; 80053; 80307; 93005; 71045; 80320; 80329; 81003; 81015; 83735; 84484; 85025; 85379; 93010; 99283

== ENCOUNTER 2023-10-01 00:56 | Emergency (ER) | payer MEDICAID, SELFPAY ==
[2023-10-01] VITALS (11 sets, daily range): BP systolic 142–156; BP diastolic 53–66; PULSE 60–68; RESP 14–18; TEMP 36.8; O2SAT 90–96
--- NOTE | 2023-10-01 01:00 | RT.EKG_ITS ---
APPROVED REPORT Exam: Resting ECG Reason for Exam: chest pain Patient Location: E HR:66 bpm ECG Measurements Heart Rate 66 AXIS SC 199 P 38 QRSd 96 QRS 8 QT 424 T 96 QTc 443 Conclusion Sinus rhythm rate 66 normal axis no acute ischemic change no change from prior
--- NOTE | 2023-10-01 01:03 | W.ED.GENAD ---
Discharge Plan Disposition Patient Disposition: Home Discharge Details Clinical Impression: Hyponatremia, Left-sided chest wall pain Primary Care Provider: Brandon Foster ED Provider: Elvin Espana Home Meds and New Rx's Prescriptions: No Action Emgality Pen 120 mg/mL pen injector 120 mg subcut QMONTH Qty: 1 11RF Nurtec ODT 75 mg tablet,disintegrating 75 mg PO ONCE PRN (Reason: migraine headache) Qty: 10 3RF Rx Instructions: As a single dose. No more than one dose in 24 hours. sumatriptan succinate 100 mg tablet See Rx Instructions PO .COMPLEX Qty: 9 5RF Rx Instructions: take 1 tab at onset of headache; if no relief, may repeat 1 tab after at least 2 hrs; max = 2 tabs/24 hrs PO gabapentin 300 mg capsule 300 mg PO TID nicotine 21-14-7 mg/24 hr patch, TD daily, sequential 1 patch transdermal DAILY Qty: 56 0RF nicotine (polacrilex) 2 mg gum 2 mg buccal Q2H Qty: 100 1RF Claritin Liqui-Gel 10 MG capsule 1 cap PO DAILY Qty: 90 prochlorperazine maleate 10 mg tablet See Rx Instructions .ROUTE .COMPLEX Qty: 20 2RF Dose Instruction: TAKE 1 TABLET BY MOUTH EVERY 8 HOURS NEEDED FOR NAUSEA AND VOMITING, HEADACHE Rx Instructions: TAKE 1 TABLET BY MOUTH EVERY 8 HOURS NEEDED FOR NAUSEA AND VOMITING, HEADACHE nicotine (polacrilex) 4 mg gum 4 mg buccal Q2H Qty: 100 2RF multivitamin Tablet 1 tab PO DAILY metformin 500 mg tablet 1 tab PO BID omeprazole 20 mg capsule,delayed release(DR/EC) 40 mg PO DAILY clonazepam 0.5 mg tablet See Rx Instructions .ROUTE .COMPLEX Rx Instructions: 1 tab in AM, 1 tab at Noon and 2 tab QHS ondansetron 4 mg tablet,disintegrating 4 mg PO Q8H PRNQty: 7 0RF benztropine 0.5 MG tablet 0.5 mg PO BID aspirin,buffd-calcium carb-mag 325 MG tablet 325 mg PO DAILY Risperdal Consta 25 mg/2 mL suspension,extended rel recon 25 mg IM USEASDIRECTD Patient Comments: INJECT ONE SYRINGE INTRAMUSCULARLY ONCE EVERY TWO WEEKS Rx Instructions: every 2 weeks lactulose 10 gram/15 mL solution 20 g PO DIRECTED PRN Patient Comments: TAKE ONE TO TWO TABLESPOONS BY MOUTH NEEDED WHEN 3 DAYS PASS WITHOUT BOWEL MOVEMENT albuterol sulfate 90 mcg/actuation aerosol powdr breath activated 2 inh IH Q6H PRN (Reason: shortness of breath or wheezing) Qty: 1 0RF atenolol 50 mg tablet 75 mg PO DAILY Rx Instructions: To take with 25mg dose for TDD 75mg daily simvastatin 40 mg tablet 80 mg PO DAILY fluoxetine 40 mg capsule 80 mg PO DAILY Discharge Instructions Instructions: Hyponatremia (ED) Additional Instructions: please follow up with your PCP for further evaluation of your hyponatremia Medical Decision Making Emergent evaluation of chest burning. Patient has presented to the emergency department for the third time this week complaining of similar symptoms. His EKG is unchanged. He is symptom-free at this time and symptoms resolved after taking his Klonopin for anxiety. he is upset that someone has decreased the dosing of klonopine prescribed to him. I reviewed the medical record and noted that he has had blood work twice this week. Of note there is significant hyponatremia that appears to be new. With a drop occurring between May and September. He is endorsing some weakness and fatigue. Will check additional blood work but patient may need further evaluation for this hyponatremia. Low suspicion for cardiac etiology given his EKG. 0230: Lab work reviewed. He has stable anemia. His hyponatremia is improving. His free T4 is within normal limits. His urinalysis is not infected. oSM are send out labs. FENA 1.3% indicates intrinsic issue. At this time I feel like further work up of the hyponatremia can be done via outpatient testing and PCP. I have encouraged the patient to follow up with his PCP for this. Medical Records Medical records reviewed: Yes I reviewed the patient's medical records. Lab Data Lab results reviewed: Yes I reviewed the patient's lab results. ECG Data Attestation: I personally reviewed and interpreted this ECG (s) as follows: Prior ECG tracings: available for review Interpretation: Sinus, 66, no acute ischemic change, no change from prior HPI General Date/Time Provider Initiated Documentation: 10/01/23 01:02. Limitations to Documentation: no limitations. Information obtained by: patient and EMS. HPI Narrative: 58-year-old gentleman with past medical history including schizoaffective disorder, diabetes, hypertension, morbid obesity, presents for evaluation of left-sided chest burning. He reports onset of symptoms around 11:30 AM he was at rest. He took a Klonopin which resolved his symptoms. He called 911 and was given 4 baby aspirin and transport. He denies any chest pressure, burning or pain at this time. He states that he generally does not feel well. This is his third visit to the emergency department this week. Related Data Home Medications Medication Instructions Recorded Confirmed loratadine 10 mg capsule (Claritin 1 cap PO DAILY #90 tabs 12/16/14 10/01/23 Liqui-Gel) aspirin,buffered (calcium 325 mg PO DAILY 11/18/16 10/01/23 carbonate-magnesium) 325 mg tablet benztropine 0.5 mg tablet 0.5 mg PO BID 11/18/16 10/01/23 lactulose 10 gram/15 mL oral 20 g PO DIRECTED PRN 10/03/20 10/01/23 solution risperidone microspheres 25 mg/2 25 mg IM USEASDIRECTD 10/03/20 10/01/23 mL intramuscular susp,ext release (Risperdal Consta) albuterol sulfate 90 mcg/actuation 2 inh inhalation Q6H PRN shortness 12/15/20 10/01/23 breath activated powder inhaler of breath or wheezing #1 ea multivitamin 1 tab PO DAILY 01/26/21 10/01/23 metformin 500 mg tablet 1 tab PO BID 03/18/22 10/01/23 omeprazole 20 mg capsule,delayed 40 mg PO DAILY 03/18/22 10/01/23 release atenolol 50 mg tablet 75 mg PO DAILY 09/26/22 10/01/23 prochlorperazine maleate 10 mg See Rx Instructions .Route 01/08/23 10/01/23 tablet .COMPLEX #20 tabs clonazepam 0.5 mg tablet See Rx Instructions .Route .COMPLEX 03/04/23 10/01/23 fluoxetine 40 mg capsule 80 mg PO DAILY 03/08/23 10/01/23 galcanezumab-gnlm 120 mg/mL 120 mg subcut QMONTH #1 mL 03/08/23 10/01/23 subcutaneous pen injector (Emgality Pen) rimegepant 75 mg disintegrating 75 mg PO ONCE PRN migraine 03/08/23 10/01/23 tablet (Nurtec ODT) headache #10 tabs sumatriptan succinate 100 mg tablet See Rx Instructions PO .COMPLEX #9 03/08/23 10/01/23 tabs gabapentin 300 mg capsule 300 mg PO TID 03/27/23 10/01/23 nicotine (polacrilex) 2 mg gum 2 mg buccal Q2H #100 ea 03/27/23 10/01/23 nicotine 1 patch transdermal DAILY #56 03/27/23 10/01/23 21mg/24hr-14mg/24hr-7mg/24hr daily patches transderm patches,sequentl simvastatin 40 mg tablet 80 mg PO DAILY 03/27/23 10/01/23 nicotine (polacrilex) 4 mg gum 4 mg buccal Q2H #100 ea 04/03/23 10/01/23 ondansetron 4 mg disintegrating 4 mg PO Q8H PRN #7 tabs 05/03/23 10/01/23 tablet Previous Rx's Medication Instructions Recorded albuterol sulfate 90 mcg/actuation 2 inh inhalation Q6H PRN shortness 12/15/20 breath activated powder inhaler of breath or wheezing #1 ea prochlorperazine maleate 10 mg See Rx Instructions .Route 01/08/23 tablet .COMPLEX #20 tabs galcanezumab-gnlm 120 mg/mL 120 mg subcut QMONTH #1 mL 03/08/23 subcutaneous pen injector (Emgality Pen) rimegepant 75 mg disintegrating 75 mg PO ONCE PRN migraine 03/08/23 tablet ([facility] ODT) headache #10 tabs sumatriptan succinate 100 mg tablet See Rx Instructions PO .COMPLEX #9 03/08/23 tabs nicotine (polacrilex) 2 mg gum 2 mg buccal Q2H #100 ea 03/27/23 nicotine 1 patch transdermal DAILY #56 03/27/23 21mg/24hr-14mg/24hr-7mg/24hr daily patches transderm patches,sequentl nicotine (polacrilex) 4 mg gum 4 mg buccal Q2H #100 ea 04/03/23 ondansetron 4 mg disintegrating 4 mg PO Q8H PRN #7 tabs 05/03/23 tablet Allergies Allergy/AdvReac Type Severity Reaction Status Date / Time buspirone Allergy Verified 10/01/23 01:35 paliperidone Allergy Verified 10/01/23 01:35 paroxetine HCl [From Paxil] Allergy Verified 10/01/23 01:35 sertraline Allergy Verified 10/01/23 01:35 ziprasidone [From Geodon] Allergy Other (See Verified 10/01/23 01:35 Comment) aripiprazole [From Abilify] AdvReac Intermediate INVOLUNTARY Verified 10/01/23 01:35 MUSCLE MOVEMENTS divalproex sodium AdvReac Intermediate INVOLUNTARY Verified 10/01/23 01:35 [From Depakote] MUSCLE MOVEMENTS mirtazapine AdvReac Intermediate INVOLUNTARY Verified 10/01/23 01:35 MUSCLE MOVEMENTS risperidone AdvReac Intermediate INVOLUNTARY Verified 10/01/23 01:35 MUSCLE MOVEMENTS benztropine mesylate AdvReac elevated Verified 10/01/23 01:35 [From Cogentin] blood sugars enviornmental Allergy Mild Wheezing Uncoded 10/01/23 01:35 General CARLOS: 3 PFSH All Active Problems (Updated 10/01/23 @ 02:16 by Elvin Espana MD) Hyponatremia (Acute) Anxiety (Chronic) Chest pain of uncertain etiology (Acute) Nicotine dependence (Acute) Dyspnea on exertion (Acute) Shortness of breath (Acute) Schizoaffective disorder (Acute 09/07/14) Rebekah Mariscal [facility] 09/2014- [facility] inpatient Hypothyroidism (acquired) (Acute 09/07/14) Hypercholesterolemia (Chronic 09/07/14) pt insists on lipitor 80 mg due to family hx GERD (gastroesophageal reflux disease) (Acute 09/07/14) Diabetes mellitus type 2 in obese (Acute 09/09/14) Depression (Acute 10/02/14) Left-sided chest wall pain (Acute) Hypertension (Chronic) pt requests brand name Tenormin vs atenolol 04/02/18 Chest pain (Acute) Chronic headache (Acute) Migraine headache without aura (Acute) Migraine (Chronic) Obesity (Chronic) BMI 52 Poor dentition (Acute) Tobacco use disorder (Chronic) started 2013 1.5 ppd, pipe 1-7/week, QUIT LATE OCT 2021 Allergic rhinitis (Chronic) lortadine Hiatal hernia (Chronic) protonix not effective, nexium works better 02/12/18 Anemia (Chronic) Broken teeth (Chronic) Drug-seeking behavior (Chronic ~09/20/21) Requests Ritalin from providers Medication overuse headache (Acute) Medical History Trigeminal neuralgia Anxiety Mitral valve prolapse Hyperlipidemia Dental caries Peripheral neuropathy Surgical History No significant past surgical history Family History Father Heart disease NM Social History Smoking/Tobacco Use Status: Former Tobacco Use Smoking risk assessment performed?: Yes Alcohol Intake: never Drug use: Never Substance use type: does not use Adopted: No Caregiver/Support person: No Foster care: No Household members: none Housing: apartment Number of Children: 2 number of grandchildren: 1 Communication Needs: Corrective Lenses Education Level: college Do you need help understanding health information?: Always current occupation: Unemployed/Leave of absence Sexually active: No Do you think of yourself as: Decline to provide Current gender identity: male What type of physical activity do you participate in: other Details: weight lifting Frequency: 3-4 times per week Magalie/Hindu: Episcopal Seatbelt use: always Drive intox or ride w/intox 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 No peripheral edema RESP: Unlabored respiratory effort, Clear to auscultation bilaterally No wheezes rales or rhonchi GI: Soft, Nontender, Nondistended, No organomegaly MSK: Extremities with full range of motion, no deformity or TTP SKIN: Warm, Dry. No rashes or lesions. NEURO: No focal neurologic deficits. 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
[2023-10-01 01:28] LABS: Abs Immature Grans 0.02 10^3/uL (0.0-0.06); Absolute Basophil Count 0.02 10^3/uL (0.0-0.2); Absolute Eosinophil Count 0.14 10^3/uL (0.0-0.7); Absolute Lymphocyte Count 1.04 10^3/uL (1.2-3.4); Absolute Monocyte Count 0.48 10^3/uL (0.1-0.8); Absolute Neutrophil Count 2.48 10^3/uL (1.2-6.7); Basophils % 0.5; Eosinophils % 3.3; HCT 31.5 % (40.0-50.0); HGB 10.8 g/dL (13.5-17.5); Immature Grans % 0.5; Lymphocytes % 24.9; MCH 30.7 pg (27.0-33.0); MCHC 34.3 % (32.0-36.0); MCV 90 fL (80-95); MPV 8.7 fL (8.0-11.0); Monocytes % 11.5; Neutrophils % 59.3; Platelet Count 112 10^3/uL (130-400); RBC 3.52 10^6/uL (4.36-5.78); RDW 13.2 % (11.8-14.1); RDW-SD 42.6 fL; WBC 4.18 10^3/uL (4.4-10.8)
[2023-10-01 01:44] LABS: Bilirubin Negative (Negative); Blood Negative (Negative); Clarity Clear (Clear); Glucose Negative (Negative); Ketones Negative (Negative); Leukocyte Esterase Negative (Negative); Nitrite Negative (Negative); Specific Gravity 1.015 (1.005-1.025); pH 7.5 (5-8)
[2023-10-01 01:49] LABS: Creatinine,Urine 24.82 mg/dL; Sodium, Urine 53 mmol/L
[2023-10-01 01:56] LABS: ALT 17 U/L (16-63); AST 13 U/L (15-37); Albumin 3.1 g/dL (3.4-5.0); Alkaline Phosphatase 45 U/L (46-116); Anion Gap 5.3 mmol/L (3-11); BUN 7 mg/dL (7-18); Bilirubin, Total 0.3 mg/dL (0.2-1.0); CO2 28.7 mmol/L (21.0-32.0); CREATININE 0.8 mg/dL (0.70-1.30); Calcium 8.6 mg/dL (8.5-10.1); Chloride 95 mmol/L (98-107); Estimated GFR 102.58 (mL/min/1.73m2); Glucose 124 mg/dL (74-106); Magnesium 1.7 mg/dL (1.8-2.4); Potassium 4.6 mmol/L (3.5-5.1); Sodium 129 mmol/L (136-145); Total Protein 7.2 g/dL (6.4-8.2); Troponin I < 50 ng/L (<or=60)
[2023-10-01 02:17] LABS: FREE T4 0.86 ng/dL (0.76-1.46)
[2023-10-01 17:59] LABS: Osmolality, Urine 248 mOsm/kg (150-1150)
[2023-10-01 18:13] LABS: Osmolality Serum 267 mOsm/kg (275-295)
== END 2023-10-01 02:24 | disposition home or self-care (01) ==
PROVIDERS: Emergency Provider Emergency Medicine; PCP Family Medicine
DX: R07.9 Chest pain, unspecified (principal); F41.9 Anxiety disorder, unspecified; E87.1 Hypo-osmolality and hyponatremia; R07.89 Other chest pain; D64.9 Anemia, unspecified; F20.9 Schizophrenia, unspecified; E11.9 Type 2 diabetes mellitus without complications; I10 Essential (primary) hypertension; E66.09 Other obesity due to excess calories; Z68.41 Body mass index [BMI] 40.0-44.9, adult; Z79.899 Other long term (current) drug therapy; R53.1 Weakness; Z79.82 Long term (current) use of aspirin; Z88.8 Allergy status to other drugs, medicaments and biological substances
CPT/HCPCS: 36415; 80053; 83935; 93005; 99284; 81003; 82565; 83735; 83930; 84300; 84439; 84443; 84484; 85025; 93010

== ENCOUNTER 2023-10-20 23:01 | Emergency (ER) | payer MEDICAID, SELFPAY ==
--- NOTE | 2023-10-20 22:59 | ED.GENADUL_ITS ---
Discharge Plan Disposition Patient Disposition: Home Discharge Details Chief Complaint: Anxiety Clinical Impression: Panic attacks, Hypertension, Chest pain, Schizoaffective disorder, Shortness of breath, Nicotine dependence, Anxiety, Depression Primary Care Provider: Brandon Foster ED Provider: Kourtney Rodriguez Home Meds and New Rx's Prescriptions: No Action Emgality Pen 120 mg/mL pen injector 120 mg subcut QMONTH Qty: 1 11RF Nurtec ODT 75 mg tablet,disintegrating 75 mg PO ONCE PRN (Reason: migraine headache) Qty: 10 3RF Rx Instructions: As a single dose. No more than one dose in 24 hours. sumatriptan succinate 100 mg tablet See Rx Instructions PO .COMPLEX Qty: 9 5RF Rx Instructions: take 1 tab at onset of headache; if no relief, may repeat 1 tab after at least 2 hrs; max = 2 tabs/24 hrs PO gabapentin 300 mg capsule 300 mg PO TID nicotine (polacrilex) 2 mg gum 2 mg buccal Q2H Qty: 100 1RF Claritin Liqui-Gel 10 MG capsule 1 cap PO DAILY Qty: 90 prochlorperazine maleate 10 mg tablet See Rx Instructions .ROUTE .COMPLEX Qty: 20 2RF Dose Instruction: TAKE 1 TABLET BY MOUTH EVERY 8 HOURS NEEDED FOR NAUSEA AND VOMITING, HEADACHE Rx Instructions: TAKE 1 TABLET BY MOUTH EVERY 8 HOURS NEEDED FOR NAUSEA AND VOMITING, HEADACHE nicotine (polacrilex) 4 mg gum 4 mg buccal Q2H Qty: 100 2RF multivitamin Tablet 1 tab PO DAILY metformin 500 mg tablet 1 tab PO BID omeprazole 20 mg capsule,delayed release(DR/EC) 40 mg PO DAILY clonazepam 0.5 mg tablet See Rx Instructions .ROUTE .COMPLEX Rx Instructions: 1 tab in AM, 1 tab at Noon and 2 tab QHS ondansetron 4 mg tablet,disintegrating 4 mg PO Q8H PRNQty: 7 0RF benztropine 0.5 MG tablet 0.5 mg PO BID aspirin,buffd-calcium carb-mag 325 MG tablet 325 mg PO DAILY Risperdal Consta 25 mg/2 mL suspension,extended rel recon 25 mg IM USEASDIRECTD Patient Comments: INJECT ONE SYRINGE INTRAMUSCULARLY ONCE EVERY TWO WEEKS Rx Instructions: every 2 weeks lactulose 10 gram/15 mL solution 20 g PO DIRECTED PRN Patient Comments: TAKE ONE TO TWO TABLESPOONS BY MOUTH NEEDED WHEN 3 DAYS PASS WITHOUT BOWEL MOVEMENT albuterol sulfate 90 mcg/actuation aerosol powdr breath activated 2 inh IH Q6H PRN (Reason: shortness of breath or wheezing) Qty: 1 0RF atenolol 50 mg tablet 75 mg PO DAILY Rx Instructions: To take with 25mg dose for TDD 75mg daily simvastatin 40 mg tablet 80 mg PO DAILY fluoxetine 40 mg capsule 80 mg PO DAILY Discharge Instructions Instructions: Chest Pain (ED), Depression (ED), Dyspnea (ED), Hypertension (ED), Anxiety (ED), Panic Attack (ED) Additional Instructions: 1. Follow-up with [facility] services as they instructed for a respite bed placement. 2. Return here for any new or worrisome symptoms. Discharge Data Discharge Physician: Kourtney Rodriguez Medical Decision Making This is a 58-year-old man with history of anxiety hypertension nicotine dependence recurrent chest pain and type 2 diabetes who presents with a panic attack and initially he said he had chest pain which went away and then he said it recurred. Initially he said he was not homicidal or suicidal but then changed his mind and asked to go to the [facility]. Since he does have risk factors we will get blood work and a chest x-ray since he had shortness of breath or what he describes as hyperventilation. His chest discomfort lasted several hours. He now tells me he has a hollow feeling inside his chest. His EKG is normal and has no evidence of ST elevation DC. We will get blood work and a chest x-ray including electrolytes CBC cardiac enzymes and renal function and liver function test. I will also obtain a salicylate and acetaminophen level. He already has taken aspirin. He denies any history of cocaine use. Differential Diagnosis Differential Diagnosis: Panic attack, anxiety, chest pain, ACS, CHF, Medical Records Medical records reviewed: Yes I reviewed the patient's medical records. Medical records narrative: History of hyponatremia chest pain nicotine dependence anxiety schizoaffective disorder shortness of breath hypercholesterolemia GERD type 2 diabetes chronic headaches anemia, drug-seeking behavior, obesity, migraines Imaging Data Radiologic Study: Imaging: X-Ray (Chest x-ray) Radiologist's impression: No acute findings. Lab Data Lab results reviewed: Yes I reviewed the patient's lab results. Lab results narrative: Mild hyponatremia, mild anemia, mild thrombocytopenia, slight elevation of D- dimer probably normal for age. Mild hypochloremia, normal renal function, mild hyperglycemia, mild hypomagnesemia, slight elevation of proBNP, mild hypoalbuminemia, normal acetaminophen and salicylate level, negative tox screen HPI General Date/Time Provider Initiated Documentation: 10/21/23 00:15 . Limitations to Documentation: no limitations . Information obtained by: patient, EMS, RN notes reviewed and old records reviewed . HPI Narrative: Time seen was on arrival in bed 9. Patient is a 58-year-old male with history of anxiety and panic attacks who is brought in by EMS because of a panic attack which began 2 to 3 hours prior to arrival. Initially he said he had no chest pain, then he said he had chest pain which resolved then he said he has just a dull feeling in his chest which does not radiate. He denies any aggravating or alleviating factors. He tells me this is similar to previous episodes he has had in the past. He is denying any homicidal or suicidal ideation. He does see a psychologist and has had multiple similar episodes in the past. He said he was triggered because he is unable to go home for the holidays. He does not smoke although he has previously. He denies any cocaine use. He tells me he was hyperventilating earlier but is not currently feeling short of breath. The pain is not pleuritic. He denies any leg pain or swelling but has had bilateral knee pain for several weeks. He has not been seen for his knee pain. He is also complaining of a rash on his arms and chest that he has had for several weeks. He denies any new soaps, detergents, unusual foods or changes in medications. He does take 325 mg of aspirin daily. He took it today. He has risk factors of obesity, hyperlipidemia and hypertension. He denies using cocaine. Related Data Home Medications Medication Instructions Recorded Confirmed loratadine 10 mg capsule (Claritin 1 cap PO DAILY #90 tabs 12/16/14 10/20/23 Liqui-Gel) aspirin,buffered (calcium 325 mg PO DAILY 11/18/16 10/20/23 carbonate-magnesium) 325 mg tablet benztropine 0.5 mg tablet 0.5 mg PO BID 11/18/16 10/20/23 lactulose 10 gram/15 mL oral 20 g PO DIRECTED PRN 11/29/20 12/16/23 solution risperidone microspheres 25 mg/2 25 mg IM USEASDIRECTD 10/03/20 10/20/23 mL intramuscular susp,ext release (Risperdal Consta) albuterol sulfate 90 mcg/actuation 2 inh inhalation Q6H PRN shortness 12/15/20 10/20/23 breath activated powder inhaler of breath or wheezing #1 ea multivitamin 1 tab PO DAILY 01/26/21 10/20/23 metformin 500 mg tablet 1 tab PO BID 03/18/22 10/20/23 omeprazole 20 mg capsule,delayed 40 mg PO DAILY 03/18/22 10/20/23 release atenolol 50 mg tablet 75 mg PO DAILY 09/26/22 10/20/23 prochlorperazine maleate 10 mg See Rx Instructions .Route 01/08/23 10/20/23 tablet .COMPLEX #20 tabs clonazepam 0.5 mg tablet See Rx Instructions .Route .COMPLEX 03/04/23 10/20/23 fluoxetine 40 mg capsule 80 mg PO DAILY 03/08/23 10/20/23 galcanezumab-gnlm 120 mg/mL 120 mg subcut QMONTH #1 mL 03/08/23 10/20/23 subcutaneous pen injector (Emgality Pen) rimegepant 75 mg disintegrating 75 mg PO ONCE PRN migraine 03/08/23 10/20/23 tablet (Nurtec ODT) headache #10 tabs sumatriptan succinate 100 mg tablet See Rx Instructions PO .COMPLEX #9 03/08/23 10/20/23 tabs gabapentin 300 mg capsule 300 mg PO TID 03/27/23 10/20/23 nicotine (polacrilex) 2 mg gum 2 mg buccal Q2H #100 ea 03/27/23 10/20/23 simvastatin 40 mg tablet 80 mg PO DAILY 03/27/23 10/20/23 nicotine (polacrilex) 4 mg gum 4 mg buccal Q2H #100 ea 04/03/23 10/20/23 ondansetron 4 mg disintegrating 4 mg PO Q8H PRN #7 tabs 05/03/23 10/20/23 tablet Previous Rx's Medication Instructions Recorded albuterol sulfate 90 mcg/actuation 2 inh inhalation Q6H PRN shortness 12/15/20 breath activated powder inhaler of breath or wheezing #1 ea prochlorperazine maleate 10 mg See Rx Instructions .Route 01/08/23 tablet .COMPLEX #20 tabs galcanezumab-gnlm 120 mg/mL 120 mg subcut QMONTH #1 mL 03/08/23 subcutaneous pen injector (Emgality Pen) rimegepant 75 mg disintegrating 75 mg PO ONCE PRN migraine 03/08/23 tablet (Nurtec ODT) headache #10 tabs sumatriptan succinate 100 mg tablet See Rx Instructions PO .COMPLEX #9 03/08/23 tabs nicotine (polacrilex) 2 mg gum 2 mg buccal Q2H #100 ea 03/27/23 nicotine (polacrilex) 4 mg gum 4 mg buccal Q2H #100 ea 04/03/23 ondansetron 4 mg disintegrating 4 mg PO Q8H PRN #7 tabs 05/03/23 tablet Allergies Allergy/AdvReac Type Severity Reaction Status Date / Time buspirone Allergy Verified 10/20/23 23:03 paliperidone Allergy Verified 10/20/23 23:03 paroxetine HCl [From Paxil] Allergy Verified 10/20/23 23:03 sertraline Allergy Verified 10/20/23 23:03 ziprasidone [From Geodon] Allergy Other (See Verified 10/20/23 23:03 Comment) aripiprazole [From Abilify] AdvReac Intermediate INVOLUNTARY Verified 10/20/23 23:03 MUSCLE MOVEMENTS divalproex sodium AdvReac Intermediate INVOLUNTARY Verified 10/20/23 23:03 [From Depakote] MUSCLE MOVEMENTS mirtazapine AdvReac Intermediate INVOLUNTARY Verified 10/20/23 23:03 MUSCLE MOVEMENTS risperidone AdvReac Intermediate INVOLUNTARY Verified 10/20/23 23:03 MUSCLE MOVEMENTS benztropine mesylate AdvReac elevated Verified 10/20/23 23:03 [From Cogentin] blood sugars enviornmental Allergy Mild Wheezing Uncoded 10/20/23 23:03 General Stated Complaint: Anxiety CARLOS: 3 Review of Systems Narrative: see hpi Constitutional Constitutional: Denies fever(s) and Denies weight loss Cardiovascular Cardiovascular: Reports chest pain, Denies leg edema, Reports dyspnea, Denies dyspnea on exertion and Denies orthopnea Respiratory Respiratory: Denies chest congestion, Denies cough, Denies hemoptysis, Denies pain on inspiration, Reports dyspnea, Denies dyspnea on exertion and Denies wheezing Musculoskeletal Musculoskeletal: Denies back pain, Denies numbness and Denies tingling Comments: Bilateral knee pain Neurologic Neurologic: Denies numbness and Denies tingling Psychiatric Psychiatric: Reports panic attacks Allergic/Immunologic Allergic/Immunologic: Denies wheezing PFSH All Active Problems (Updated 10/21/23 @ 03:45 by Kourtney Rodriguez MD) Depression (Chronic) Panic attacks (Acute) Hyponatremia (Acute) Anxiety (Chronic) Chest pain of uncertain etiology (Acute) Nicotine dependence (Acute) Dyspnea on exertion (Acute) Shortness of breath (Acute) Schizoaffective disorder (Acute 09/07/14) Rebekah Mariscal [facility] 09/[facility] Hypothyroidism (acquired) (Acute 09/07/14) Hypercholesterolemia (Chronic 09/07/14) pt insists on lipitor 80 mg due to family hx GERD (gastroesophageal reflux disease) (Acute 09/07/14) Diabetes mellitus type 2 in obese (Acute 09/09/14) Depression (Acute 10/02/14) Left-sided chest wall pain (Acute) Hypertension (Chronic) pt requests brand name Tenormin vs atenolol 04/02/18 Chest pain (Acute) Chronic headache (Acute) Migraine headache without aura (Acute) Migraine (Chronic) Obesity (Chronic) BMI 52 Poor dentition (Acute) Tobacco use disorder (Chronic) started 2013 1.5 ppd, pipe 1-7/week, QUIT LATE OCT 2021 Allergic rhinitis (Chronic) lortadine Hiatal hernia (Chronic) protonix not effective, nexium works better 02/12/18 Anemia (Chronic) Broken teeth (Chronic) Drug-seeking behavior (Chronic ~09/20/21) Requests Ritalin from providers Medication overuse headache (Acute) Medical History Trigeminal neuralgia Anxiety Mitral valve prolapse Hyperlipidemia Dental caries Peripheral neuropathy Surgical History No significant past surgical history Family History Father Heart disease DC Social History Smoking/Tobacco Use Status: Former Tobacco Use Smoking risk assessment performed?: Yes Alcohol Intake: never Drug use: Never Substance use type: does not use Adopted: No Caregiver/Support person: No Foster care: No Household members: none Housing: apartment Number of Children: 2 number of grandchildren: 1 Communication Needs: Corrective Lenses Education Level: college Do you need help understanding health information?: Always current occupation: Unemployed/Leave of absence Sexually active: No Do you think of yourself as: Decline to provide Current gender identity: male What type of physical activity do you participate in: other Details: weight lifting Frequency: 3-4 times per week Magalie/Mandaeism: Rastafarian Seatbelt use: always Drive intox or ride w/intox company 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 Exam Narrative Exam Narrative: The patient is a well-developed well-nourished male with an elevated BMI. He is alert and oriented x 4. He is not clinically intoxicated. He is mildly hypertensive. He is not tachycardic tachypneic or febrile. He has a normal room air O2 sat of 98%. His GCS is 15 Const General: cooperative, healthy appearing, comfortable, no acute distress, well developed, well groomed and well hydrated Nutritional Appearance: well nourished and obese Orientation: alert, awake and oriented x3 [facility] Head: normal to inspection, normocephalic and atraumatic Ears: hearing grossly normal bilaterally and external ears normal General nose exam: external nose normal, nares normal and no nasal discharge Face and sinus: normal facial exam, sinuses nontender and face symmetric Mouth: oral mucosae normal, lip normal, tongue normal, oropharynx normal, moist mucous membranes and other (Normal phonation. The patient is handling secretions.) Throat: posterior oropharynx normal and uvula midline Eyes General: appearance normal, both eyes and all related structures Eyelids: eyelids normal Conjunctivae: conjunctivae normal Sclera: sclerae normal Cornea: corneas normal Pupils: PERRL EOM: EOM intact bilaterally and No nystagmus Neck Neck: normal visual inspection, full ROM, no lymphadenopathy, no meningeal signs, trachea midline and supple Lymphatic: no lymphadenopathy noted Chest Chest: normal inspection of the chest Resp Effort & Inspection: normal respiratory effort, able to speak in complete sentences, no audible wheezes, no nasal flaring, no respiratory distress, no retractions, no stridor, not tachypneic, no tracheal deviation, no use of accessory muscles, No prolonged expiratory phase and other (Normal inspiratory to expiratory ratio.) Auscultation: clear to auscultation bilaterally, no rales, no rhonchi, no wheezes and no rubs Tactile Fremitus: tactile fremitus absent Cardio Jugular venous pressure: no JVD Palpation: normal PMI Rate: regular rate Rhythm: regular rhythm Heart Sounds: S1 normal, S2 normal, no gallops, no murmurs and no rubs GI Inspection: normal to inspection and non-distended Palpation: soft, no hepatosplenomegaly, no guarding and nontender Percussion: normal to percussion Auscultation: normal bowel sounds General: No CVA tenderness Back/Spine/Pelvis Back: no CVA tenderness and No back tenderness Cervical Spine: normal cervical lordosis, cervical ROM normal, No cervical muscular tenderness, No pain with cervical ROM, No cervical spinal tenderness and No step off deformity Thoracic/Lumbar Spine: thoracic and lumbar spine normal to inspection, No thoracic spinal tenderness and No lumbar spinal tenderness Pelvis: no pain with anterior-posterior compression and no pain with lateral compression Skin General skin exam: turgor normal, no petechiae, no purpura and other (Skin is no rmal for ethnicity.) Lesions: no lesions Trauma: no lacerations or abrasions Other: His skin is warm and dry and normal for ethnicity. I cannot really appreciate a rash on his arms or extremities. His skin is slightly dry. No induration no erythema Neuro General: patient alert, patient awake, patient oriented x3, moves all extremities, no meningeal signs, no focal motor deficits and CN's II-XI intact bilaterally Cranial Nerves: CN's II-XI intact bilaterally, PERRL, accommodation normal, EOM intact bilaterally, no nystagmus, facial strength normal, tongue midline, hearing normal and no nystagmus Cognition: normal cognition Speech: speech normal Gait: normal gait Motor: muscle tone normal throughout and strength 5/5 throughout Sensory Exam: no sensory deficits noted Pupils: Normal pupillary reactivity/response: bilateral Extrem General: normal to inspection, full ROM, capillary refill normal, no clubbing, cyanosis or edema and no calf tenderness Other: The patient has full range of motion of his knees. No laxity no evidence of effusion. Psych Appearance: grossly normal Affect: normal affect Attitude: cooperative Thought Process: normal Thought Content: normal Insight: insight good Judgment: judgment good Other: The patient appears to have capacity make medical decisions. Course 00:37am I updated the patient on his labs and magnesium and sodium levels. He is now requesting to go to [facility] for suicidal ideation. He tells me he has gone voluntarily in the past prior. He does not have a specific plan. He does not have firearms at home. We will notify the screener for screening. 01:52 AM: The patient has been screened by the mental health screener, Riri. She does not feel that he meets criteria for admission. She has discussed a safety plan with him which he has agreed to. They will arrange for him to go to a care bed when 1 becomes available. 3:38 am: The patient's second troponin has come back negative. I will discharge him with outpatient follow-up with [facility] services. I have advised him to return here for any new or worsening symptoms, including worsening depression or suicidality with plan. Patient voiced understanding agreement with the discharge plan. All his questions and concerns were addressed prior to discharge Critical Care Time Critical Care Time Total Critical Care Time: 42 Attestation: This includes time at the bedside, review of labs EKG and radiographs, reevaluation and review of old records.
[2023-10-20 23:07] VITALS: BP 149/94; PULSE 75; RESP 18; TEMP 36.4; O2SAT 98
[2023-10-20 23:09] VITALS: RESP 19
--- NOTE | 2023-10-20 23:15 | RT.EKG_ITS ---
APPROVED REPORT Exam: Resting ECG Reason for Exam: chest discomfort Patient Location: E HR:70 bpm ECG Measurements Heart Rate 70 AXIS VT 196 P 42 QRSd 96 QRS 26 QT 423 T 60 QTc 455 Conclusion Sinus rhythm...normal P axis, V-rate 60- 99 NSR, normal axis normal intervals, no acute sttw changes, no STEMI. slight axis change in III from pr evious.
--- NOTE | 2023-10-20 23:15 | DI.RAD_ITS ---
Exam(s) XR CHEST 2V PA LATERAL EXAM: XR CHEST 2V PA LATERAL CLINICAL HISTORY: chest pain and shortness of breath TECHNIQUE: 2D digital imaging was performed of the chest. Two images were obtained. PA and lateral views were obtained. COMPARISON: CR,XR XR PORTABLE CHEST AP from 09/29/2023 FINDINGS: MEDIASTINUM: Normal. HEART: Normal. PULMONARY VASCULATURE: Normal. LUNGS: Clear. PLEURAL SPACE: No pleural effusion or pneumothorax. BONE:Within normal limits for the patient's age. OTHER FINDINGS:Normal. IMPRESSION: No acute pulmonary findings. DATA REPOSITORY: RADIATION DOSE DELIVERED:
[2023-10-20 23:47] LABS: Abs Immature Grans 0.02 10^3/uL (0.0-0.06); Absolute Basophil Count 0.01 10^3/uL (0.0-0.2); Absolute Eosinophil Count 0.17 10^3/uL (0.0-0.7); Absolute Lymphocyte Count 1.25 10^3/uL (1.2-3.4); Absolute Monocyte Count 0.54 10^3/uL (0.1-0.8); Absolute Neutrophil Count 2.42 10^3/uL (1.2-6.7); Basophils % 0.2; Eosinophils % 3.9; HCT 31.2 % (40.0-50.0); HGB 10.9 g/dL (13.5-17.5); Immature Grans % 0.5; Lymphocytes % 28.3; MCH 31.2 pg (27.0-33.0); MCHC 34.9 % (32.0-36.0); MCV 89 fL (80-95); Monocytes % 12.2; Neutrophils % 54.9; Platelet Count 111 10^3/uL (130-400); RBC 3.49 10^6/uL (4.36-5.78); RDW 12.9 % (11.8-14.1); RDW-SD 41.9 fL; WBC 4.41 10^3/uL (4.4-10.8)
[2023-10-20 23:57] LABS: Salicylate < 2.8 mg/dL (<2.8)
[2023-10-20 23:58] LABS: Bilirubin Negative (Negative); Blood Negative (Negative); Clarity Clear (Clear); Glucose Negative (Negative); Ketones Negative (Negative); Leukocyte Esterase Negative (Negative); Nitrite Negative (Negative); Specific Gravity 1.015 (1.005-1.025); pH 7.5 (5-8)
[2023-10-21 00:02] LABS: Acetaminophen 2 ug/mL (10-30)
[2023-10-21] MEDS: Normal Saline 1,000 ML 1000 ML IV (00:02)
[2023-10-21 00:05] LABS: ALT 16 U/L (16-63); AST 17 U/L (15-37); Albumin 3.3 g/dL (3.4-5.0); Alkaline Phosphatase 48 U/L (46-116); Anion Gap 6.5 mmol/L (3-11); BUN 9 mg/dL (7-18); Bilirubin, Total 0.4 mg/dL (0.2-1.0); CO2 30.5 mmol/L (21.0-32.0); Calcium 8.8 mg/dL (8.5-10.1); Chloride 93 mmol/L (98-107); Estimated GFR 87.24 (mL/min/1.73m2); Glucose 149 mg/dL (74-106); Magnesium 1.7 mg/dL (1.8-2.4); Potassium 4.4 mmol/L (3.5-5.1); Sodium 130 mmol/L (136-145); Total Protein 7.5 g/dL (6.4-8.2)
[2023-10-21 00:07] LABS: NT-proBNP 441 pg/mL (<300); Troponin I < 50 ng/L (<or=60)
[2023-10-21 00:20] LABS: D-Dimer 585 ng/mlFEU (<500)
[2023-10-21 00:20] LABS: *AMPHETAMINES SCREEN URINE Negative (Negative); *BARBITURATES SCREEN URINE Negative (Negative); *BENZODIAZEPINES SCREEN URINE Negative (Negative); Cannabinoids THC Negative (Negative); Cocaine Screen,Urine Negative (Negative); METHADONE URINE SCREEN Negative (Negative); OPIATES URINE SCREEN Negative (Negative)
[2023-10-21 00:21] LABS: Tricyclic Antidepressants Negative (Negative)
[2023-10-21] MEDS: MAGNESIUM SULFATE 1 GM/100 ML BAG IVPB (00:31)
--- NOTE | 2023-10-21 01:10 | DI.VRAD_ITS ---
PROCEDURE INFORMATION: Exam: XR Chest Exam date and time: 10/20/2023 11:51 PM Age: 58 years old Clinical indication: Shortness of breath TECHNIQUE: Imaging protocol: Radiologic exam of the chest. Views: 2 views. COMPARISON: CR XR PORTABLE CHEST AP 09/29/2023 12:56 PM FINDINGS: Lungs: Unremarkable. No consolidation. Pleural spaces: Unremarkable. No pleural effusion. No pneumothorax. Heart/Mediastinum: Unremarkable. No cardiomegaly. Bones/joints: Unremarkable. IMPRESSION: No acute findings. Dictated and Authenticated by: Gustavo Cintron MD. Ordering:AMOS Oconnell MD
[2023-10-21 02:58] LABS: Troponin I < 50 ng/L (<or=60)
[2023-10-21 06:26] VITALS: BP 140/82; PULSE 62; RESP 18; TEMP 36.2; O2SAT 98
== END 2023-10-21 06:29 | disposition home or self-care (01) ==
PROVIDERS: Emergency Provider Emergency Medicine Emergency Medical Services; PCP Family Medicine
DX: F41.0 Panic disorder [episodic paroxysmal anxiety] (principal); R79.89 Other specified abnormal findings of blood chemistry; I10 Essential (primary) hypertension; E78.5 Hyperlipidemia, unspecified; F32.A Depression, unspecified; E83.42 Hypomagnesemia; F25.9 Schizoaffective disorder, unspecified; Z87.891 Personal history of nicotine dependence
CPT/HCPCS: 80053; 80307; 93005; 96361; 96365; 99284; 71046; 80329; 81003; 83735; 83880; 84484; 85025; 85379; 93010; J3475

== ENCOUNTER 2023-11-09 16:53 | Emergency (ER) | payer MEDICAID, SELFPAY ==
--- NOTE | 2023-11-09 16:45 | RT.EKG_ITS ---
APPROVED REPORT Exam: Resting ECG Reason for Exam: sob Patient Location: E HR:68 bpm ECG Measurements Heart Rate 68 AXIS RI 226 P 0 QRSd 98 QRS 28 QT 410 T 92 QTc 435 Conclusion Sinus rhythm 1st degree, RI 226normal axis
[2023-11-09 16:54] VITALS: BP 159/60; PULSE 73; RESP 20; TEMP 36.7; O2SAT 97
[2023-11-09 17:39] LABS: Abs Immature Grans 0.03 10^3/uL (0.0-0.06); Absolute Basophil Count 0.02 10^3/uL (0.0-0.2); Absolute Eosinophil Count 0.17 10^3/uL (0.0-0.7); Absolute Lymphocyte Count 1.48 10^3/uL (1.2-3.4); Absolute Monocyte Count 0.65 10^3/uL (0.1-0.8); Absolute Neutrophil Count 3.39 10^3/uL (1.2-6.7); Basophils % 0.3; HCT 31.5 % (40.0-50.0); HGB 10.8 g/dL (13.5-17.5); Immature Grans % 0.5; Lymphocytes % 25.8; MCH 31.3 pg (27.0-33.0); MCHC 34.3 % (32.0-36.0); MCV 91 fL (80-95); MPV 8.6 fL (8.0-11.0); Monocytes % 11.3; Neutrophils % 59.1; Platelet Count 129 10^3/uL (130-400); RBC 3.45 10^6/uL (4.36-5.78); RDW 12.9 % (11.8-14.1); RDW-SD 41.8 fL; WBC 5.74 10^3/uL (4.4-10.8)
[2023-11-09 17:44] VITALS: RESP 20
[2023-11-09 17:49] VITALS: BP 148/60; PULSE 76; RESP 18; O2SAT 96
[2023-11-09 17:55] LABS: ALT 14 U/L (16-63); AST 15 U/L (15-37); Alkaline Phosphatase 51 U/L (46-116); Anion Gap 3.6 mmol/L (3-11); BUN 9 mg/dL (7-18); Bilirubin, Total 0.3 mg/dL (0.2-1.0); CO2 32.4 mmol/L (21.0-32.0); CREATININE 0.9 mg/dL (0.70-1.30); Chloride 98 mmol/L (98-107); Glucose 167 mg/dL (74-106); Lipase 10 U/L (16-77); Potassium 4.6 mmol/L (3.5-5.1); Sodium 134 mmol/L (136-145); Total Protein 7.2 g/dL (6.4-8.2); Troponin I < 50 ng/L (<or=60)
[2023-11-09] MEDS: LORazepam 1 MG TAB 2 MG PO (18:18)
--- NOTE | 2023-11-09 19:07 | ED.GENADUL_ITS ---
HPI General Stated Complaint: Anxiety CARLOS: 4 Date/Time Provider Initiated Documentation: 11/09/23 17:14. Limitations to Documentation: no limitations. Information obtained by: patient. HPI Narrative: 58-year-old gentleman with past medical history including obesity, schizoaffective disorder, hypertension, diabetes presents for evaluation of panic attacks. He reports that he had multiple panic attacks all day and feels very anxious. He is requesting to evaluation but [facility] as well as inpatient placement at [facility]. He denies any SI or HI. He reports that he takes clonazepam for anxiety and panic attacks, but it was not really working today. Just prior to arrival, he started having GERD symptoms. He reports a burning sensation. No chest pain or shortness of breath. He reports that he took a nausea medication with some improvement in his reflux symptoms. Related Data Home Medications Medication Instructions Recorded Confirmed loratadine 10 mg capsule (Claritin 1 cap PO DAILY #90 tabs 12/16/14 10/20/23 Liqui-Gel) aspirin,buffered (calcium 325 mg PO DAILY 11/18/16 10/20/23 carbonate-magnesium) 325 mg tablet benztropine 0.5 mg tablet 0.5 mg PO BID 11/18/16 10/20/23 lactulose 10 gram/15 mL oral 20 g PO DIRECTED PRN 10/03/20 10/20/23 solution risperidone microspheres 25 mg/2 25 mg IM USEASDIRECTD 10/03/20 10/20/23 mL intramuscular susp,ext release (Risperdal Consta) albuterol sulfate 90 mcg/actuation 2 inh inhalation Q6H PRN shortness 12/15/20 10/20/23 breath activated powder inhaler of breath or wheezing #1 ea multivitamin 1 tab PO DAILY 01/26/21 10/20/23 metformin 500 mg tablet 1 tab PO BID 03/18/22 10/20/23 omeprazole 20 mg capsule,delayed 40 mg PO DAILY 03/18/22 10/20/23 release atenolol 50 mg tablet 75 mg PO DAILY 09/26/22 10/20/23 prochlorperazine maleate 10 mg See Rx Instructions .Route 01/08/23 10/20/23 tablet .COMPLEX #20 tabs clonazepam 0.5 mg tablet See Rx Instructions .Route .COMPLEX 03/04/23 10/20/23 fluoxetine 40 mg capsule 80 mg PO DAILY 03/08/23 10/20/23 galcanezumab-gnlm 120 mg/mL 120 mg subcut QMONTH #1 mL 03/08/23 10/20/23 subcutaneous pen injector (Emgality Pen) rimegepant 75 mg disintegrating 75 mg PO ONCE PRN migraine 03/08/23 10/20/23 tablet (Nurtec ODT) headache #10 tabs sumatriptan succinate 100 mg tablet See Rx Instructions PO .COMPLEX #9 03/08/23 10/20/23 tabs gabapentin 300 mg capsule 300 mg PO TID 03/27/23 10/20/23 nicotine (polacrilex) 2 mg gum 2 mg buccal Q2H #100 ea 03/27/23 10/20/23 simvastatin 40 mg tablet 80 mg PO DAILY 03/27/23 10/20/23 nicotine (polacrilex) 4 mg gum 4 mg buccal Q2H #100 ea 04/03/23 10/20/23 ondansetron 4 mg disintegrating 4 mg PO Q8H PRN #7 tabs 05/03/23 10/20/23 tablet Previous Rx's Medication Instructions Recorded albuterol sulfate 90 mcg/actuation 2 inh inhalation Q6H PRN shortness 12/15/20 breath activated powder inhaler of breath or wheezing #1 ea prochlorperazine maleate 10 mg See Rx Instructions .Route 01/08/23 tablet .COMPLEX #20 tabs galcanezumab-gnlm 120 mg/mL 120 mg subcut QMONTH #1 mL 03/08/23 subcutaneous pen injector (Emgality Pen) rimegepant 75 mg disintegrating 75 mg PO ONCE PRN migraine 03/08/23 tablet (Nurtec ODT) headache #10 tabs sumatriptan succinate 100 mg tablet See Rx Instructions PO .COMPLEX #9 03/08/23 tabs nicotine (polacrilex) 2 mg gum 2 mg buccal Q2H #100 ea 03/27/23 nicotine (polacrilex) 4 mg gum 4 mg buccal Q2H #100 ea 04/03/23 ondansetron 4 mg disintegrating 4 mg PO Q8H PRN #7 tabs 05/03/23 tablet Allergies Allergy/AdvReac Type Severity Reaction Status Date / Time buspirone Allergy Verified 10/20/23 23:03 paliperidone Allergy Verified 10/20/23 23:03 paroxetine HCl [From Paxil] Allergy Verified 10/20/23 23:03 sertraline Allergy Verified 10/20/23 23:03 ziprasidone [From Geodon] Allergy Other (See Verified 10/20/23 23:03 Comment) aripiprazole [From Abilify] AdvReac Intermediate INVOLUNTARY Verified 10/20/23 23:03 MUSCLE MOVEMENTS divalproex sodium AdvReac Intermediate INVOLUNTARY Verified 10/20/23 23:03 [From Depakote] MUSCLE MOVEMENTS mirtazapine AdvReac Intermediate INVOLUNTARY Verified 10/20/23 23:03 MUSCLE MOVEMENTS risperidone AdvReac Intermediate INVOLUNTARY Verified 10/20/23 23:03 MUSCLE MOVEMENTS benztropine mesylate AdvReac elevated Verified 10/20/23 23:03 [From Cogentin] blood sugars enviornmental Allergy Mild Wheezing Uncoded 10/20/23 23:03 PFSH All Active Problems (Updated 11/09/23 @ 19:48 by Elvin Espana MD) Anxiety (Chronic) Acid reflux (Chronic) Depression (Chronic) Panic attacks (Acute) Nicotine dependence (Acute) Dyspnea on exertion (Acute) Shortness of breath (Acute) Schizoaffective disorder (Acute 09/07/14) Rebekah Mariscal [facility] 09/2014- [facility] inpatient Hypothyroidism (acquired) (Acute 09/07/14) Hypercholesterolemia (Chronic 09/07/14) pt insists on lipitor 80 mg due to family hx GERD (gastroesophageal reflux disease) (Acute 09/07/14) Diabetes mellitus type 2 in obese (Acute 09/09/14) Depression (Acute 10/02/14) Left-sided chest wall pain (Acute) Hypertension (Chronic) pt requests brand name Tenormin vs atenolol 04/02/18 Chest pain (Acute) Chronic headache (Acute) Migraine headache without aura (Acute) Migraine (Chronic) Obesity (Chronic) BMI 52 Poor dentition (Acute) Tobacco use disorder (Chronic) started 2013 1.5 ppd, pipe 1-7/week, QUIT LATE OCT 2021 Allergic rhinitis (Chronic) lortadine Hiatal hernia (Chronic) protonix not effective, nexium works better 02/12/18 Anemia (Chronic) Broken teeth (Chronic) Drug-seeking behavior (Chronic ~09/20/21) Requests Ritalin from providers Medication overuse headache (Acute) Medical History Trigeminal neuralgia Anxiety Mitral valve prolapse Hyperlipidemia Dental caries Peripheral neuropathy Surgical History No significant past surgical history Family History Father Heart disease [place] Social History Smoking/Tobacco Use Status: Former Tobacco Use Smoking risk assessment performed?: Yes Alcohol Intake: never Drug use: Never Substance use type: does not use Adopted: No Caregiver/Support person: No Foster care: No Household members: none Housing: apartment Number of Children: 2 number of grandchildren: 1 Communication Needs: Corrective Lenses Education Level: college Do you need help understanding health information?: Always current occupation: Unemployed/Leave of absence Sexually active: No Do you think of yourself as: Decline to provide Current gender identity: male What type of physical activity do you participate in: other Details: weight lifting Frequency: 3-4 times per week Magalie/Lutheran: Gnosticist Seatbelt use: always Drive intox or ride w/intox driver retraining instructor: No Working smoke detector in home: Yes Fire extinguisher in home: Yes Carbon monox detector in home: Yes Do you feel safe at home: Yes (anxiety and depression) Do you feel safe in your relationship?: Yes Exam Narrative Exam Narrative: Review of Systems: All systems reviewed & are unremarkable except as noted in HPI and below: CONSTITUTIONAL: Alert and oriented Well-developed, no acute distress HEENT: NCAT CVS: RRR, No murmurs or gallops. RESP: Unlabored respiratory effort, Clear to auscultation bilaterally No wheezes rales or rhonchi GI: Soft, Nontender, Nondistended, No organomegaly MSK: Extremities with full range of motion, no deformity or TTP SKIN: Warm, Dry. No rashes or lesions. NEURO: No focal neurologic deficits. PSYCH: Appropriate mood and affect Course Vital Signs Vital signs: Vital Signs Temperature 36.7 C 11/09/23 16:54 Pulse 73 11/09/23 16:54 Respiratory Rate 20 11/09/23 16:54 Blood Pressure 159/60 H 11/09/23 16:54 Pulse Oximetry 97 11/09/23 16:54 Temperature 36.7 C 11/09/23 16:54 Temperature Source Skin 11/09/23 16:54 Pulse 76 11/09/23 17:49 Respiratory Rate 18 11/09/23 17:49 Respiratory Effort Normal, Non-Labored 11/09/23 17:44 Respiratory Depth Normal 11/09/23 17:44 Respiratory Pattern Normal 11/09/23 17:44 Blood Pressure 148/60 H 11/09/23 17:49 Blood Pressure Position Sitting 11/09/23 16:54 Pulse Oximetry 96 11/09/23 17:49 Oxygen Delivery Method Room Air 11/09/23 17:49 Oxygen Flow Rate 0 11/09/23 17:49 Pain Level 4 11/09/23 16:54 Comment pain is in knees 11/09/23 16:54 Lab/Test Results Lab/Test Results: Laboratory Tests Range/Units 11/09/23 17:35 WBC (4.4-10.8) 10^3/uL 5.74 RBC (4.36-5.78) 10^6/uL 3.45 L Hgb (13.5-17.5) g/dL 10.8 L Hct (40.0-50.0) % 31.5 L MCV (80-95) fL 91 MCH (27.0-33.0) pg 31.3 MCHC (32.0-36.0) % 34.3 RDW (11.8-14.1) % 12.9 Plt Count (130-400) 10^3/uL 129 L MPV (8.0-11.0) fL 8.6 Immature Gran % 0.5 Neutrophils % 59.1 Lymphocytes % 25.8 Monocytes % 11.3 Eosinophils % 3.0 Basophils % 0.3 Nucleated RBC % (0.0-0.3) % 0.0 Absolute Neutrophils (1.2-6.7) 10^3/uL 3.39 Absolute Lymphocytes (1.2-3.4) 10^3/uL 1.48 Absolute Monocytes (0.1-0.8) 10^3/uL 0.65 Absolute Eosinophils (0.0-0.7) 10^3/uL 0.17 Absolute Basophils (0.0-0.2) 10^3/uL 0.02 Sodium (136-145) mmol/L 134 L Potassium (3.5-5.1) mmol/L 4.6 Chloride (98-107) mmol/L 98 Carbon Dioxide (21.0-32.0) mmol/L 32.4 H Anion Gap (3-11) mmol/L 3.6 BUN (7-18) mg/dL 9 Creatinine (0.70-1.30) mg/dL 0.9 Est GFR (CKD-EPI 2020) (mL/min/1.73m2) 99.00 Glucose (74-106) mg/dL 167 H Calcium (8.5-10.1) mg/dL 9.0 Total Bilirubin (0.2-1.0) mg/dL 0.3 AST (15-37) U/L 15 ALT (16-63) U/L 14 L Alkaline Phosphatase (46-116) U/L 51 Troponin I (<or=60) ng/L < 50 Total Protein (6.4-8.2) g/dL 7.2 Albumin (3.4-5.0) g/dL 3.0 L Lipase (16-77) U/L 10 L Medical Decision Making Emergent evaluation of anxiety. Patient reports also having reflux. No real chest pain. Does have significant risk factors for ACS. An EKG was obtained and this does not demonstrate acute ischemic changes. Patient is reporting frequent panic attacks today and is requesting psychiatric placement. However at this time I do not feel that he meets criteria for psychiatric placement will give him a dose of Ativan for anxiolysis and have him discussed with [facility]. Lab work reviewed. No clinically significant abnormalities. Patient is currently on Zoom call with mental health services. Evaluated by [facility], reported to them same symptoms. again denies SI. She reports that patient is requesting inpatient placement at [facility] or [facility]. Refusing isabela and refusing [facility] hospital bed. She says that she feels this could be managed outpatient but since he is requesting inpatient, referrals will be sent to the places he wants. the patient has no emergent psychiatric or medical issues at this time. There is no indication for EE. His refusal of care and dictating care he would receive is highly manipulative. patient received 2mg of Ativan in the ED and this seems to have controlled his panic and anxiety symptoms well. I discussed the option of discharge with the patient and he feels comfortable with this plan as he also doesn't want to sleep or wait in the ED pending his potential placement. he understands to follow up [facility], to contact them if his placement needs/ desires change and if symptoms worsen or he develops SI he should return to the ED. Medical Records Medical records reviewed: Yes I reviewed the patient's medical records. Lab Data Lab results reviewed: Yes I reviewed the patient's lab results. ECG Data Attestation: I personally reviewed and interpreted this ECG (s) as follows: Prior ECG tracings: available for review Interpretation: Sinus, 68, no acute ST segment changes Quality:SDOH Health Related Social Needs: Health related social needs food insecurity Discharge Plan Disposition Patient Disposition: Home Discharge Details Clinical Impression: Panic attacks, Acid reflux, Anxiety Primary Care Provider: Brandon Foster ED Provider: Elvin Espana Home Meds and New Rx's Prescriptions: No Action Emgality Pen 120 mg/mL pen injector 120 mg subcut QMONTH Qty: 1 11RF Nurtec ODT 75 mg tablet,disintegrating 75 mg PO ONCE PRN (Reason: migraine headache) Qty: 10 3RF Rx Instructions: As a single dose. No more than one dose in 24 hours. sumatriptan succinate 100 mg tablet See Rx Instructions PO .COMPLEX Qty: 9 5RF Rx Instructions: take 1 tab at onset of headache; if no relief, may repeat 1 tab after at least 2 hrs; max = 2 tabs/24 hrs PO gabapentin 300 mg capsule 300 mg PO TID nicotine (polacrilex) 2 mg gum 2 mg buccal Q2H Qty: 100 1RF Claritin Liqui-Gel 10 MG capsule 1 cap PO DAILY Qty: 90 prochlorperazine maleate 10 mg tablet See Rx Instructions .ROUTE .COMPLEX Qty: 20 2RF Dose Instruction: TAKE 1 TABLET BY MOUTH EVERY 8 HOURS NEEDED FOR NAUSEA AND VOMITING, HEADACHE Rx Instructions: TAKE 1 TABLET BY MOUTH EVERY 8 HOURS NEEDED FOR NAUSEA AND VOMITING, HEADACHE nicotine (polacrilex) 4 mg gum 4 mg buccal Q2H Qty: 100 2RF multivitamin Tablet 1 tab PO DAILY metformin 500 mg tablet 1 tab PO BID omeprazole 20 mg capsule,delayed release(DR/EC) 40 mg PO DAILY clonazepam 0.5 mg tablet See Rx Instructions .ROUTE .COMPLEX Rx Instructions: 1 tab in AM, 1 tab at Noon and 2 tab QHS ondansetron 4 mg tablet,disintegrating 4 mg PO Q8H PRNQty: 7 0RF benztropine 0.5 MG tablet 0.5 mg PO BID aspirin,buffd-calcium carb-mag 325 MG tablet 325 mg PO DAILY Risperdal Consta 25 mg/2 mL suspension,extended rel recon 25 mg IM USEASDIRECTD Patient Comments: INJECT ONE SYRINGE INTRAMUSCULARLY ONCE EVERY TWO WEEKS Rx Instructions: every 2 weeks lactulose 10 gram/15 mL solution 20 g PO DIRECTED PRN Patient Comments: TAKE ONE TO TWO TABLESPOONS BY MOUTH NEEDED WHEN 3 DAYS PASS WITHOUT BOWEL MOVEMENT albuterol sulfate 90 mcg/actuation aerosol powdr breath activated 2 inh IH Q6H PRN (Reason: shortness of breath or wheezing) Qty: 1 0RF atenolol 50 mg tablet 75 mg PO DAILY Rx Instructions: To take with 25mg dose for TDD 75mg daily simvastatin 40 mg tablet 80 mg PO DAILY fluoxetine 40 mg capsule 80 mg PO DAILY Discharge Instructions Instructions: Anxiety (ED) Additional Instructions: [facility] has sent referrals for inpatient placement A care bed is available if you would like, please contact [facility] for placement. please take your medications as prescribed if your symptoms worsen, please call [facility] or return to the ED
--- NOTE | 2023-11-09 19:10 | NUR.NOTE ---
PT on zoom with [facility] Nursing Note:
[2023-11-09 20:38] VITALS: PULSE 67; RESP 18; O2SAT 94
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
--- NOTE | 2023-11-11 08:20 | NUR.NOTE ---
Accessed pt chart to cancel duplicate EKG order. Nursing Note:
== END 2023-11-09 20:39 | disposition home or self-care (01) ==
PROVIDERS: Emergency Provider Emergency Medicine; PCP Family Medicine
DX: F41.0 Panic disorder [episodic paroxysmal anxiety] (principal); K21.9 Gastro-esophageal reflux disease without esophagitis; F41.9 Anxiety disorder, unspecified; I10 Essential (primary) hypertension; E11.9 Type 2 diabetes mellitus without complications; E78.00 Pure hypercholesterolemia, unspecified; Z87.891 Personal history of nicotine dependence
CPT/HCPCS: 00123; 80053; 83690; 93005; 96127; 99283; 84484; 85025; 93010

== ENCOUNTER 2023-11-30 12:14 | Emergency (ER) | payer MEDICAID, SELFPAY ==
[2023-11-30 12:16] VITALS: BP 148/70; PULSE 67; RESP 20; TEMP 36.6; O2SAT 96
[2023-11-30] MEDS: Ondansetron O.D.T. 4 MG TABEF PO (12:52)
--- NOTE | 2023-11-30 13:38 | ED.GENADUL_ITS ---
HPI General Mode of arrival: EMS . Date/Time Provider Initiated Documentation: 11/30/23 12:39 . Limitations to Documentation: no limitations . Information obtained by: patient . HPI Narrative: 58yo male here with multiple medical problems, here with chief complaint of nausea. Patient notes nausea started about 2 hours ago. Symptoms have been constant. No associated abdominal pain. No fever. Patient notes when he had similar in the past he has taken ondansetron and this has helped. He notes he is run out of ondansetron and is requesting dose at this time. Related Data Home Medications Medication Instructions Recorded Confirmed loratadine 10 mg capsule (Claritin 1 cap PO DAILY #90 tabs 12/16/14 11/30/23 Liqui-Gel) aspirin,buffered (calcium 325 mg PO DAILY 11/18/16 11/30/23 carbonate-magnesium) 325 mg tablet benztropine 0.5 mg tablet 0.5 mg PO BID 11/18/16 11/30/23 lactulose 10 gram/15 mL oral 20 g PO DIRECTED PRN 10/03/20 11/30/23 solution risperidone microspheres 25 mg/2 25 mg IM USEASDIRECTD 10/03/20 11/30/23 mL intramuscular susp,ext release (Risperdal Consta) albuterol sulfate 90 mcg/actuation 2 inh inhalation Q6H PRN shortness 12/15/20 11/30/23 breath activated powder inhaler of breath or wheezing #1 ea multivitamin 1 tab PO DAILY 01/26/21 11/30/23 metformin 500 mg tablet 1 tab PO BID 03/18/22 11/30/23 omeprazole 20 mg capsule,delayed 40 mg PO DAILY 03/18/22 11/30/23 release atenolol 50 mg tablet 75 mg PO DAILY 09/26/22 11/30/23 prochlorperazine maleate 10 mg See Rx Instructions .Route 01/08/23 11/30/23 tablet .COMPLEX #20 tabs clonazepam 0.5 mg tablet See Rx Instructions .Route .COMPLEX 03/04/23 11/30/23 fluoxetine 40 mg capsule 80 mg PO DAILY 03/08/23 11/30/23 galcanezumab-gnlm 120 mg/mL 120 mg subcut QMONTH #1 mL 03/08/23 11/30/23 subcutaneous pen injector (Emgality Pen) rimegepant 75 mg disintegrating 75 mg PO ONCE PRN migraine 03/08/23 11/30/23 tablet (Nurtec ODT) headache #10 tabs sumatriptan succinate 100 mg tablet See Rx Instructions PO .COMPLEX #9 03/08/23 11/30/23 tabs gabapentin 300 mg capsule 300 mg PO TID 03/27/23 11/30/23 nicotine (polacrilex) 2 mg gum 2 mg buccal Q2H #100 ea 03/27/23 11/30/23 simvastatin 40 mg tablet 80 mg PO DAILY 03/27/23 11/30/23 nicotine (polacrilex) 4 mg gum 4 mg buccal Q2H #100 ea 04/03/23 11/30/23 clonazepam 1 mg tablet 0.5 mg PO TID 11/30/23 11/30/23 ondansetron 4 mg disintegrating 4 mg PO Q8H PRN #10 tabs 11/30/23 tablet Previous Rx's Medication Instructions Recorded albuterol sulfate 90 mcg/actuation 2 inh inhalation Q6H PRN shortness 12/15/20 breath activated powder inhaler of breath or wheezing #1 ea prochlorperazine maleate 10 mg See Rx Instructions .Route 01/08/23 tablet .COMPLEX #20 tabs galcanezumab-gnlm 120 mg/mL 120 mg subcut QMONTH #1 mL 03/08/23 subcutaneous pen injector (Emgality Pen) rimegepant 75 mg disintegrating 75 mg PO ONCE PRN migraine 03/08/23 tablet (Nurtec ODT) headache #10 tabs sumatriptan succinate 100 mg tablet See Rx Instructions PO .COMPLEX #9 03/08/23 tabs nicotine (polacrilex) 2 mg gum 2 mg buccal Q2H #100 ea 03/27/23 nicotine (polacrilex) 4 mg gum 4 mg buccal Q2H #100 ea 04/03/23 ondansetron 4 mg disintegrating 4 mg PO Q8H PRN #10 tabs 11/30/23 tablet Allergies Allergy/AdvReac Type Severity Reaction Status Date / Time buspirone Allergy Verified 11/30/23 12:21 paliperidone Allergy Verified 11/30/23 12:21 paroxetine HCl [From Paxil] Allergy Verified 01/26/24 12:21 sertraline Allergy Verified 11/30/23 12:21 ziprasidone [From Geodon] Allergy Other (See Verified 11/30/23 12:21 Comment) aripiprazole [From Abilify] AdvReac Intermediate INVOLUNTARY Verified 11/30/23 12:21 MUSCLE MOVEMENTS divalproex sodium AdvReac Intermediate INVOLUNTARY Verified 11/30/23 12:21 [From Depakote] MUSCLE MOVEMENTS mirtazapine AdvReac Intermediate INVOLUNTARY Verified 11/30/23 12:21 MUSCLE MOVEMENTS risperidone AdvReac Intermediate INVOLUNTARY Verified 11/30/23 12:21 MUSCLE MOVEMENTS benztropine mesylate AdvReac elevated Verified 11/30/23 12:21 [From Cogentin] blood sugars enviornmental Allergy Mild Wheezing Uncoded 11/30/23 12:21 General Stated Complaint: Nausea/Vomit/Diar CARLOS: 3 Review of Systems All systems reviewed & are unremarkable except as noted in HPI and below Constitutional Constitutional: Denies fever(s) Gastrointestinal Gastrointestinal: Denies abdominal pain, Reports nausea and Denies vomiting Exam Const General: cooperative and no acute distress HENMT Mouth: moist mucous membranes Eyes Conjunctivae: normal conjunctivae Sclera: normal sclerae Neck Neck: trachea midline and supple Resp Auscultation: clear to auscultation bilaterally, no rales, no rhonchi and no wheezes Cardio Rate: regular rate and not tachycardic Rhythm: regular rhythm GI Palpation: soft, not firm, no guarding, no masses, not rigid and nontender Skin General skin exam: no rashes or lesions noted Neuro General: patient alert, patient awake and tone normal Course Vital Signs Vital signs: Vital Signs Temperature 36.6 C 11/30/23 12:16 Pulse 67 11/30/23 12:16 Respiratory Rate 20 11/30/23 12:16 Blood Pressure 148/70 H 11/30/23 12:16 Pulse Oximetry 96 11/30/23 12:16 Temperature 36.6 C 11/30/23 12:16 Temperature Source Temporal Artery Scan 11/30/23 12:16 Pulse 67 11/30/23 12:16 Respiratory Rate 20 11/30/23 12:16 Respiratory Effort Normal 11/30/23 12:20 Blood Pressure 148/70 H 11/30/23 12:16 Blood Pressure Position Sitting 11/30/23 12:16 Pulse Oximetry 96 11/30/23 12:16 Oxygen Delivery Method Room Air 11/30/23 12:16 Oxygen Flow Rate 0 11/30/23 12:16 Medical Decision Making -- 58-year-old male with multiple medical problems presents today with chief complaint of nausea. Patient is hemodynamically stable. Abdominal exam is benign. Patient requesting ondansetron. I will give a dose of ondansetron and plan to reassess. 1505 --patient reassessed and nausea resolved. POC gluc nl. Patient requesting discharge. Plan for discharge with follow-up with PCP. Disposition decision was made weighing the risks and benefits of hospitalization versus outpatient treatment, the risk for further decompensation, and the patient's wishes. The patient was stable and requested discharge. Prior to discharge, my usual and customary return precautions were reviewed with the patient - this included follow-up instructions and reason to return to the emergency department if condition worsens, does not improve as expected, or other new concerns arise. Quality:SDOH Health Related Social Needs: Health related social needs food insecurity PFSH All Active Problems (Updated 11/30/23 @ 15:07 by Liang Ng MD) Nausea (Acute) Anxiety (Chronic) Acid reflux (Chronic) Nicotine dependence (Acute) Dyspnea on exertion (Acute) Shortness of breath (Acute) Schizoaffective disorder (Acute 09/07/14) Rebekah Mariscal [facility] 09/2014- [facility] inpatient Hypothyroidism (acquired) (Acute 09/07/14) Hypercholesterolemia (Chronic 09/07/14) pt insists on lipitor 80 mg due to family hx GERD (gastroesophageal reflux disease) (Acute 09/07/14) Diabetes mellitus type 2 in obese (Acute 09/09/14) Depression (Acute 10/02/14) Left-sided chest wall pain (Acute) Hypertension (Chronic) pt requests brand name Tenormin vs atenolol 04/02/18 Chest pain (Acute) Chronic headache (Acute) Migraine headache without aura (Acute) Migraine (Chronic) Obesity (Chronic) BMI 52 Poor dentition (Acute) Tobacco use disorder (Chronic) started 2013 1.5 ppd, pipe 1-7/week, QUIT LATE OCT 2021 Allergic rhinitis (Chronic) lortadine Hiatal hernia (Chronic) protonix not effective, nexium works better 02/12/18 Anemia (Chronic) Broken teeth (Chronic) Drug-seeking behavior (Chronic ~09/20/21) Requests Ritalin from providers Medication overuse headache (Acute) Medical History Trigeminal neuralgia Anxiety Mitral valve prolapse Hyperlipidemia Dental caries Peripheral neuropathy Surgical History No significant past surgical history Family History Father Heart disease [place] Social History Smoking/Tobacco Use Status: Former Tobacco Use Smoking risk assessment performed?: Yes Alcohol Intake: never Drug use: Never Substance use type: does not use Adopted: No Caregiver/Support person: No Foster care: No Household members: none Housing: apartment Number of Children: 2 number of grandchildren: 1 Communication Needs: Corrective Lenses Education Level: college Do you need help understanding health information?: Always current occupation: Unemployed/Leave of absence Sexually active: No Do you think of yourself as: Decline to provide Current gender identity: male What type of physical activity do you participate in: other Details: weight lifting Frequency: 3-4 times per week Magalie/Baptist: Baptism Seatbelt use: always Drive intox or ride w/intox driver operator: No Working smoke detector in home: Yes Fire extinguisher in home: Yes Carbon monox detector in home: Yes Do you feel safe at home: Yes (anxiety and depression) Do you feel safe in your relationship?: Yes Discharge Plan Disposition Patient Disposition: Home Condition: Stable Discharge Details Clinical Impression: Nausea Primary Care Provider: Brandon Foster ED Provider: Liang Ng Meds and New Rx's Prescriptions: Continued Emgality Pen 120 mg/mL pen injector 120 mg subcut QMONTH Qty: 1 11RF Nurtec ODT 75 mg tablet,disintegrating 75 mg PO ONCE PRN (Reason: migraine headache) Qty: 10 3RF Rx Instructions: As a single dose. No more than one dose in 24 hours. sumatriptan succinate 100 mg tablet See Rx Instructions PO .COMPLEX Qty: 9 5RF Rx Instructions: take 1 tab at onset of headache; if no relief, may repeat 1 tab after at least 2 hrs; max = 2 tabs/24 hrs PO gabapentin 300 mg capsule 300 mg PO TID nicotine (polacrilex) 2 mg gum 2 mg buccal Q2H Qty: 100 1RF Claritin Liqui-Gel 10 MG capsule 1 cap PO DAILY Qty: 90 prochlorperazine maleate 10 mg tablet See Rx Instructions .ROUTE .COMPLEX Qty: 20 2RF Dose Instruction: TAKE 1 TABLET BY MOUTH EVERY 8 HOURS NEEDED FOR NAUSEA AND VOMITING, HEADACHE Rx Instructions: TAKE 1 TABLET BY MOUTH EVERY 8 HOURS NEEDED FOR NAUSEA AND VOMITING, HEADACHE nicotine (polacrilex) 4 mg gum 4 mg buccal Q2H Qty: 100 2RF multivitamin Tablet 1 tab PO DAILY metformin 500 mg tablet 1 tab PO BID omeprazole 20 mg capsule,delayed release(DR/EC) 40 mg PO DAILY clonazepam 0.5 mg tablet See Rx Instructions .ROUTE .COMPLEX Rx Instructions: 1 tab in AM, 1 tab at Noon and 2 tab QHS clonazepam 1 mg tablet 0.5 mg PO TID ondansetron 4 mg tablet,disintegrating 4 mg PO Q8H PRNQty: 10 0RF benztropine 0.5 MG tablet 0.5 mg PO BID aspirin,buffd-calcium carb-mag 325 MG tablet 325 mg PO DAILY risperidone microspheres [Risperdal Consta] 25 mg/2 mL suspension,extended rel recon 25 mg IM USEASDIRECTD Patient Comments: INJECT ONE SYRINGE INTRAMUSCULARLY ONCE EVERY TWO WEEKS Rx Instructions: every 2 weeks lactulose 10 gram/15 mL solution 20 g PO DIRECTED PRN Patient Comments: TAKE ONE TO TWO TABLESPOONS BY MOUTH NEEDED WHEN 3 DAYS PASS WITHOUT BOWEL MOVEMENT albuterol sulfate 90 mcg/actuation aerosol powdr breath activated 2 inh IH Q6H PRN (Reason: shortness of breath or wheezing) Qty: 1 0RF atenolol 50 mg tablet 75 mg PO DAILY Rx Instructions: To take with 25mg dose for TDD 75mg daily simvastatin 40 mg tablet 80 mg PO DAILY fluoxetine 40 mg capsule 80 mg PO DAILY Discharge Instructions Instructions: Acute Nausea and Vomiting (ED) Additional Instructions: Please contact your primary care physician to arrange follow-up. Return to the ER immediately for any worsening or new concerning symptoms. Referrals: Brandon Foster [Primary Care Provider] -
[2023-11-30 15:18] VITALS: BP 119/60; PULSE 60; RESP 20; O2SAT 95
== END 2023-11-30 15:24 | disposition home or self-care (01) ==
PROVIDERS: Emergency Provider Student in an Organized Health Care Education/Training Program; PCP Family Medicine
DX: R11.0 Nausea (principal); I10 Essential (primary) hypertension; E78.5 Hyperlipidemia, unspecified; E11.9 Type 2 diabetes mellitus without complications; Z79.82 Long term (current) use of aspirin; Z79.84 Long term (current) use of oral hypoglycemic drugs; Z87.891 Personal history of nicotine dependence
CPT/HCPCS: 82962; 99283

== ENCOUNTER 2023-12-29 15:11 | Emergency (ER) | payer MEDICAID, SELFPAY ==
[2023-12-29] VITALS (77 sets, daily range): BP systolic 141–166; BP diastolic 61–76; PULSE 54–60; RESP 10–19; TEMP 35.8–36.7; O2SAT 95–100
--- NOTE | 2023-12-29 15:00 | RT.EKG_ITS ---
APPROVED REPORT Exam: Resting ECG Reason for Exam: chest pain Patient Location: E HR:61 bpm ECG Measurements Heart Rate 61 AXIS SC 199 P 30 QRSd 102 QRS 16 QT 436 T 69 QTc 441 Conclusion Sinus rhythm...normal P axis, V-rate 60- 99 sinus rhythm, normal axis, normal intervals, non ischemic
--- NOTE | 2023-12-29 15:15 | DI.RAD_ITS ---
Exam(s) XR CHEST 2V PA LATERAL EXAM: XR CHEST 2V PA LATERAL CLINICAL HISTORY: chest pain. TECHNIQUE: 2D digital imaging was performed. COMPARISON: CR,XR XR CHEST 2V PA LATERAL from 10/20/2023 FINDINGS: 2 views: Heart size is normal. The mediastinum is not widened. Lungs are clear. No infiltrates nor pleural effusions. IMPRESSION: No acute pulmonary findings. DATA REPOSITORY: RADIATION DOSE DELIVERED:
--- NOTE | 2023-12-29 15:17 | W.ED.GENAD ---
Discharge Plan Disposition Patient Disposition: Home Condition: Stable Discharge Details Clinical Impression: Chest pain of uncertain etiology Primary Care Provider: Brandon Foster ED Provider: Froilan Ordonez Home Meds and New Rx's Prescriptions: Continued Emgality Pen 120 mg/mL pen injector 120 mg subcut QMONTH Qty: 1 11RF Nurtec ODT 75 mg tablet,disintegrating 75 mg PO ONCE PRN (Reason: migraine headache) Qty: 10 3RF Rx Instructions: As a single dose. No more than one dose in 24 hours. sumatriptan succinate 100 mg tablet See Rx Instructions PO .COMPLEX Qty: 9 5RF Rx Instructions: take 1 tab at onset of headache; if no relief, may repeat 1 tab after at least 2 hrs; max = 2 tabs/24 hrs PO gabapentin 300 mg capsule 300 mg PO TID nicotine (polacrilex) 2 mg gum 2 mg buccal Q2H Qty: 100 1RF Claritin Liqui-Gel 10 MG capsule 1 cap PO DAILY Qty: 90 prochlorperazine maleate 10 mg tablet See Rx Instructions .ROUTE .COMPLEX Qty: 20 2RF Dose Instruction: TAKE 1 TABLET BY MOUTH EVERY 8 HOURS NEEDED FOR NAUSEA AND VOMITING, HEADACHE Rx Instructions: TAKE 1 TABLET BY MOUTH EVERY 8 HOURS NEEDED FOR NAUSEA AND VOMITING, HEADACHE nicotine (polacrilex) 4 mg gum 4 mg buccal Q2H Qty: 100 2RF multivitamin Tablet 1 tab PO DAILY metformin 500 mg tablet 1 tab PO BID omeprazole 20 mg capsule,delayed release(DR/EC) 40 mg PO DAILY clonazepam 0.5 mg tablet See Rx Instructions .ROUTE .COMPLEX Rx Instructions: 1 tab in AM, 1 tab at Noon and 2 tab QHS clonazepam 1 mg tablet 0.5 mg PO TID ondansetron 4 mg tablet,disintegrating 4 mg PO Q8H PRNQty: 10 0RF benztropine 0.5 MG tablet 0.5 mg PO BID aspirin,buffd-calcium carb-mag 325 MG tablet 325 mg PO DAILY risperidone microspheres [Risperdal Consta] 25 mg/2 mL suspension,extended rel recon 25 mg IM USEASDIRECTD Patient Comments: INJECT ONE SYRINGE INTRAMUSCULARLY ONCE EVERY TWO WEEKS Rx Instructions: every 2 weeks lactulose 10 gram/15 mL solution 20 g PO DIRECTED PRN Patient Comments: TAKE ONE TO TWO TABLESPOONS BY MOUTH NEEDED WHEN 3 DAYS PASS WITHOUT BOWEL MOVEMENT albuterol sulfate 90 mcg/actuation aerosol powdr breath activated 2 inh IH Q6H PRN (Reason: shortness of breath or wheezing) Qty: 1 0RF atenolol 50 mg tablet 75 mg PO DAILY Rx Instructions: To take with 25mg dose for TDD 75mg daily simvastatin 40 mg tablet 80 mg PO DAILY fluoxetine 40 mg capsule 80 mg PO DAILY Discharge Instructions Instructions: Chest Pain (ED), Anxiety (ED) Additional Instructions: You were seen in the emergency department for your anxiety attack with chest pain. We underwent serial troponin testing and there is no sign of damage to your heart, your EKG is completely normal. Your labs are otherwise benign and consistent with prior values, you have mild anemia, I do not suspect you are having a cardiac source of chest pain with your con current anxiety attack. You were seen by an [facility] and they develop a safety plan and close follow-up for you as an outpatient. Please do not hesitate to return to the emergency department for any further episodes of chest pain especially with feelings of near syncope, shortness of breath, sweating. Please follow-up with your primary care provider for recommendations on when you should update echocardiogram and stress test. Referrals: [facility] [Provider Group] Brandon Foster [Primary Care Provider] - [facility] General Date/Time Provider Initiated Documentation: 12/29/23 15:15. HPI Narrative: 58 year-old male presents to ED today by EMS with a chief complaint of anxiety attack with chest pain with onset about 1hr15 prior to arrival. Quality described as L sided chest pressure and pain, onset at rest, no radiation to shortness of breath, dizziness, visual changes, sweating. Patient denies recent URI, denies fever, denies nausea/vomiting. Severity is described as 5-6/10. Palliating factors include tried calling [facility] emergency line but no reply. Provoking factors include nothing specific- non-exertional onset. Events leading up to the incident/Associated Symptoms: Patient has history of mitral valve prolapse, morbid obesity, anxiety and states his depression has been bad lately without SI/HI. Patient not anticoagulated. Related Data Home Medications Medication Instructions Recorded Confirmed loratadine 10 mg capsule (Claritin 1 cap PO DAILY #90 tabs 12/16/14 11/30/23 Liqui-Gel) aspirin,buffered (calcium 325 mg PO DAILY 11/18/16 11/30/23 carbonate-magnesium) 325 mg tablet benztropine 0.5 mg tablet 0.5 mg PO BID 11/18/16 11/30/23 lactulose 10 gram/15 mL oral 20 g PO DIRECTED PRN 10/03/20 11/30/23 solution risperidone microspheres 25 mg/2 25 mg IM USEASDIRECTD 10/03/20 11/30/23 mL intramuscular susp,ext release (Risperdal Consta) albuterol sulfate 90 mcg/actuation 2 inh inhalation Q6H PRN shortness 12/15/20 11/30/23 breath activated powder inhaler of breath or wheezing #1 ea multivitamin 1 tab PO DAILY 01/26/21 11/30/23 metformin 500 mg tablet 1 tab PO BID 03/18/22 11/30/23 omeprazole 20 mg capsule,delayed 40 mg PO DAILY 03/18/22 11/30/23 release atenolol 50 mg tablet 75 mg PO DAILY 09/26/22 11/30/23 prochlorperazine maleate 10 mg See Rx Instructions .Route 01/08/23 11/30/23 tablet .COMPLEX #20 tabs clonazepam 0.5 mg tablet See Rx Instructions .Route .COMPLEX 03/04/23 11/30/23 fluoxetine 40 mg capsule 80 mg PO DAILY 03/08/23 11/30/23 galcanezumab-gnlm 120 mg/mL 120 mg subcut QMONTH #1 mL 03/08/23 11/30/23 subcutaneous pen injector (Emgality Pen) rimegepant 75 mg disintegrating 75 mg PO ONCE PRN migraine 03/08/23 11/30/23 tablet (Nurtec ODT) headache #10 tabs sumatriptan succinate 100 mg tablet See Rx Instructions PO .COMPLEX #9 03/08/23 11/30/23 tabs gabapentin 300 mg capsule 300 mg PO TID 03/27/23 11/30/23 nicotine (polacrilex) 2 mg gum 2 mg buccal Q2H #100 ea 03/27/23 11/30/23 simvastatin 40 mg tablet 80 mg PO DAILY 03/27/23 11/30/23 nicotine (polacrilex) 4 mg gum 4 mg buccal Q2H #100 ea 04/03/23 11/30/23 clonazepam 1 mg tablet 0.5 mg PO TID 11/30/23 11/30/23 ondansetron 4 mg disintegrating 4 mg PO Q8H PRN #10 tabs 11/30/23 tablet Previous Rx's Medication Instructions Recorded albuterol sulfate 90 mcg/actuation 2 inh inhalation Q6H PRN shortness 12/15/20 breath activated powder inhaler of breath or wheezing #1 ea prochlorperazine maleate 10 mg See Rx Instructions .Route 01/08/23 tablet .COMPLEX #20 tabs galcanezumab-gnlm 120 mg/mL 120 mg subcut QMONTH #1 mL 03/08/23 subcutaneous pen injector (Emgality Pen) rimegepant 75 mg disintegrating 75 mg PO ONCE PRN migraine 03/08/23 tablet (Nurtec ODT) headache #10 tabs sumatriptan succinate 100 mg tablet See Rx Instructions PO .COMPLEX #9 03/08/23 tabs nicotine (polacrilex) 2 mg gum 2 mg buccal Q2H #100 ea 03/27/23 nicotine (polacrilex) 4 mg gum 4 mg buccal Q2H #100 ea 04/03/23 ondansetron 4 mg disintegrating 4 mg PO Q8H PRN #10 tabs 11/30/23 tablet Allergies Allergy/AdvReac Type Severity Reaction Status Date / Time buspirone Allergy Verified 11/30/23 12:21 paliperidone Allergy Verified 11/30/23 12:21 paroxetine HCl [From Paxil] Allergy Verified 11/30/23 12:21 sertraline Allergy Verified 11/30/23 12:21 ziprasidone [From Geodon] Allergy Other (See Verified 11/30/23 12:21 Comment) aripiprazole [From Abilify] AdvReac Intermediate INVOLUNTARY Verified 11/30/23 12:21 MUSCLE MOVEMENTS divalproex sodium AdvReac Intermediate INVOLUNTARY Verified 11/30/23 12:21 [From Depakote] MUSCLE MOVEMENTS mirtazapine AdvReac Intermediate INVOLUNTARY Verified 11/30/23 12:21 MUSCLE MOVEMENTS risperidone AdvReac Intermediate INVOLUNTARY Verified 11/30/23 12:21 MUSCLE MOVEMENTS benztropine mesylate AdvReac elevated Verified 11/30/23 12:21 [From Cogentin] blood sugars enviornmental Allergy Mild Wheezing Uncoded 11/30/23 12:21 General Stated Complaint: Anxiety CARLOS: 3 Review of Systems All systems reviewed & are unremarkable except as noted in HPI and below Exam Narrative Exam Narrative: GENERAL APPEARANCE: Morbid obesity, non-toxic, awake and alert, atraumatic, no acute distress. SKIN: Warm, pink, dry, intact, without rashes/lesions/ulcerations. HEAD: Normocephalic, atraumatic, normal hair distribution for gender/age. EYES: Pupils PERRLA, EOMs intact without nystagmus, normal conjunctiva, no exudates on lids/lashes. ENT: Nares patent, no circumoral cyanosis, no facial swelling NECK: Supple, trachea midline, painless cervical ROM. LUNGS/CHEST: Lungs CTA bilaterally- no rhonchi/rales/wheezes diffusely, non-labored respirations, normal A/P diameter, symmetrical expansion, no chest wall deformity HEART (CV/PV): Regular rate and rhythm without murmur, no peripheral edema, no JVD. Difficult auscultation due to body habitus. ABDOMEN: Soft, non-distended, no guarding, no tenderness. MSK: Normal ROM, no swelling/deformity to bilateral UEs or LEs, moving all extremities without weakness, no cyanosis, spine midline without tenderness, normal curvature. NEURO: Mental Status AAOx4 - alert to person, place, time, events No facial droop, no forehead involvement. Motor: No focal weakness - strength 5/5 in bilateral UEs and LEs, proximal and distal, symmetric. Sensory: sensation intact to light touch globally. Gait normal: patient ambulated without ataxia into ED room. PSYCH: euthymic, cooperative, pleasant, appropriate speech Course Vital Signs Vital signs: Vital Signs Temperature 35.8 C L 12/29/23 15:06 Pulse 60 12/29/23 15:06 Respiratory Rate 15 12/29/23 15:06 Blood Pressure 160/61 H 12/29/23 15:06 Pulse Oximetry 100 12/29/23 15:06 Temperature 35.8 C L 12/29/23 15:06 Temperature Source Temporal Artery Scan 12/29/23 15:06 Pulse 60 12/29/23 15:06 Respiratory Rate 15 12/29/23 15:06 Blood Pressure 160/61 H 12/29/23 15:06 Pulse Oximetry 100 12/29/23 15:06 Oxygen Delivery Method Room Air 12/29/23 15:06 Oxygen Flow Rate 0 12/29/23 15:06 Pain Level 5 12/29/23 15:06 Medical Decision Making This dictation utilizes [id number] dictation software and may contain unedited grammatical errors. 58 y/o M presents to ED today with a chief complaint of chest pain, possibly linked to an anxiety attack while at rest at home about 1hr15 before arrival. Patient has history chest pain without [place]. Patient denies shortness of breath, dizziness, visual changes, sweating, denies recent URI, having normal intake and output of urine/BM, denies fever. Patients' medical history: Anxiety, mitral valve prolapse, hyperlipidemia, peripheral neuropathy, nicotine dependence, schizoaffective disorder, type 2 diabetes mellitus, GERD, migraine, hiatal hernia. 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 Pertinent exam findings / vital signs include benign cardiopulmonary exam, no abdominal tenderness, nontoxic vitals, neuro intact. Differential / pathologies of concern include ACS, costochondritis, GERD, pleurisy, low risk PE do not suspect embolic pathology. Diagnostic studies of: -CBC, CMP, troponin +3-hour troponin, BNP, lipase, EKG, chest x-ray. -CBC shows no leukocytosis, stable anemia, chronically low platelets -Mildly low sodium which is stable -Stable BNP elevation at 433 -Lipase within normal limits -Serial troponins negative -Chest x-ray negative -EKG shows sinus rhythm at 61 bpm with normal axis, P waves followed by narrow complex QRS, good R wave progression, normal QT QTc, no ST changes of ischemia Interventions of: -None. ED Course/Assessment/Plan: 58-year-old male presents with left-sided chest pain, has history of anxiety and panic attack, he contacted and [facility] for increased depression and panic attacks they did not return his call, his cardiac workup was negative through serial troponins, he requested to speak with a [facility] to be voluntary inpatient, the state that he agreed to a safety plan and will be discharged home with close follow-up. I did chemical dependency counselor him on negative cardiac workup though he does have some risk factors his heart score is still low and to follow-up with his primary care provider for referral for outpatient cardiology studies on recommended baseline cardiology studies if he needs updates to his echocardiogram or stress test. Findings not consistent with acute coronary syndrome, embolic pathology, the patient likely has musculoskeletal chest wall pain from morbid obesity as well as significant anxiety. Disposition of chest pain of uncertain etiology. Patient verbalized understanding of the plan and return to ED criteria and engaged in shared decision making. Medical Records Medical records reviewed: Yes I reviewed the patient's medical records. Imaging Data Radiologic Study: Attestation: I personally reviewed and interpreted this imaging study as follows: Imaging: X-Ray Radiologist's impression: EXAM: XR CHEST 2V PA LATERAL CLINICAL HISTORY: chest pain. TECHNIQUE: 2D digital imaging was performed. COMPARISON: CR,XR XR CHEST 2V PA LATERAL from 10/20/2023 FINDINGS: 2 views: Heart size is normal. The mediastinum is not widened. Lungs are clear. No infiltrates nor pleural effusions. IMPRESSION: No acute pulmonary findings. Lab Data Lab results reviewed: Yes I reviewed the patient's lab results. Labs: Laboratory Tests Range/Units 12/29/23 12/29/23 15:30 18:25 WBC (4.4-10.8) 10^3/uL 4.57 RBC (4.36-5.78) 10^6/uL 3.42 L Hgb (13.5-17.5) g/dL 10.8 L Hct (40.0-50.0) % 31.1 L MCV (80-95) fL 91 MCH (27.0-33.0) pg 31.6 MCHC (32.0-36.0) % 34.7 RDW (11.8-14.1) % 12.8 Plt Count (130-400) 10^3/uL 96 L MPV (8.0-11.0) fL 9.1 Immature Gran % 0.4 Neutrophils % 51.5 Lymphocytes % 33.7 Monocytes % 11.8 Eosinophils % 2.2 Basophils % 0.4 Nucleated RBC % (0.0-0.3) % 0.0 Absolute Neutrophils (1.2-6.7) 10^3/uL 2.35 Absolute Lymphocytes (1.2-3.4) 10^3/uL 1.54 Absolute Monocytes (0.1-0.8) 10^3/uL 0.54 Absolute Eosinophils (0.0-0.7) 10^3/uL 0.10 Absolute Basophils (0.0-0.2) 10^3/uL 0.02 Sodium (136-145) mmol/L 134 L Potassium (3.5-5.1) mmol/L 4.2 Chloride (98-107) mmol/L 97 L Carbon Dioxide (21.0-32.0) mmol/L 29.5 Anion Gap (3-11) mmol/L 7.5 BUN (7-18) mg/dL 8 Creatinine (0.70-1.30) mg/dL 1.0 Est GFR (CKD-EPI 2020) (mL/min/1.73m2) 87.24 Glucose (74-106) mg/dL 101 Calcium (8.5-10.1) mg/dL 8.5 Magnesium (1.8-2.4) mg/dL 1.8 Total Bilirubin (0.2-1.0) mg/dL 0.6 AST (15-37) U/L 14 L ALT (16-63) U/L 14 L Alkaline Phosphatase (46-116) U/L 51 Troponin I (< or =60) ng/L < 50 < 50 NT-Pro-B Natriuret Pep (<300) pg/mL 433 H Total Protein (6.4-8.2) g/dL 7.5 Albumin (3.4-5.0) g/dL 3.1 L Lipase (16-77) U/L < 10 L Quality:SDOH Health Related Social Needs: Health related social needs food insecurity PFSH All Active Problems (Updated 12/29/23 @ 19:08 by JORDANA Holguin) Chest pain of uncertain etiology (Acute) Nausea (Acute) Nicotine dependence (Acute) Dyspnea on exertion (Acute) Shortness of breath (Acute) Schizoaffective disorder (Acute 09/07/14) Rebekah Mariscal [facility] 09/2014- [facility] inpatient Hypothyroidism (acquired) (Acute 09/07/14) Hypercholesterolemia (Chronic 09/07/14) pt insists on lipitor 80 mg due to family hx GERD (gastroesophageal reflux disease) (Acute 09/07/14) Diabetes mellitus type 2 in obese (Acute 09/09/14) Depression (Acute 10/02/14) Left-sided chest wall pain (Acute) Hypertension (Chronic) pt requests brand name Tenormin vs atenolol 04/02/18 Chest pain (Acute) Chronic headache (Acute) Migraine headache without aura (Acute) Migraine (Chronic) Obesity (Chronic) BMI 52 Poor dentition (Acute) Tobacco use disorder (Chronic) started 2013 1.5 ppd, pipe 1-7/week, QUIT LATE OCT 2021 Allergic rhinitis (Chronic) lortadine Hiatal hernia (Chronic) protonix not effective, nexium works better 02/12/18 Anemia (Chronic) Broken teeth (Chronic) Drug-seeking behavior (Chronic ~09/20/21) Requests Ritalin from providers Medication overuse headache (Acute) Medical History Trigeminal neuralgia Anxiety Mitral valve prolapse Hyperlipidemia Dental caries Peripheral neuropathy Surgical History No significant past surgical history Family History Father Heart disease [place] Social History Smoking/Tobacco Use Status: Former Tobacco Use Smoking risk assessment performed?: Yes Alcohol Intake: never Drug use: Never Substance use type: does not use Adopted: No Caregiver/Support person: No Foster care: No Household members: none Housing: apartment Number of Children: 2 number of grandchildren: 1 Communication Needs: Corrective Lenses Education Level: college Do you need help understanding health information?: Always current occupation: Unemployed/Leave of absence Sexually active: No Do you think of yourself as: Decline to provide Current gender identity: male What type of physical activity do you participate in: other Details: weight lifting Frequency: 3-4 times per week Magalie/Zoroastrianism: Alevism Seatbelt use: always Drive intox or ride w/intox line haul 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
[2023-12-29 15:43] LABS: Abs Immature Grans 0.02 10^3/uL (0.0-0.06); Absolute Basophil Count 0.02 10^3/uL (0.0-0.2); Absolute Lymphocyte Count 1.54 10^3/uL (1.2-3.4); Absolute Monocyte Count 0.54 10^3/uL (0.1-0.8); Absolute Neutrophil Count 2.35 10^3/uL (1.2-6.7); Basophils % 0.4; Eosinophils % 2.2; HCT 31.1 % (40.0-50.0); HGB 10.8 g/dL (13.5-17.5); Immature Grans % 0.4; Lymphocytes % 33.7; MCH 31.6 pg (27.0-33.0); MCHC 34.7 % (32.0-36.0); MCV 91 fL (80-95); MPV 9.1 fL (8.0-11.0); Monocytes % 11.8; Neutrophils % 51.5; RBC 3.42 10^6/uL (4.36-5.78); RDW 12.8 % (11.8-14.1); RDW-SD 41.1 fL; WBC 4.57 10^3/uL (4.4-10.8)
[2023-12-29 15:56] LABS: Platelet Count 96 10^3/uL (130-400)
--- NOTE | 2023-12-29 16:02 | DI.VRAD_ITS ---
PROCEDURE INFORMATION: Exam: XR Chest Exam date and time: 12/29/2023 3:43 PM Age: 58 years old Clinical indication: Other: Unspecified; Patient HX: Chest pain TECHNIQUE: Imaging protocol: Radiologic exam of the chest. Views: 2 views. COMPARISON: CR XR CHEST 2V PA LATERAL 10/20/2023 11:51 PM FINDINGS: Lungs: Unremarkable. No consolidation. Pleural spaces: Unremarkable. No pleural effusion. No pneumothorax. Heart/Mediastinum: Unremarkable. No cardiomegaly. Bones/joints: Unremarkable. IMPRESSION: No evidence for acute abnormality in the chest. Dictated and Authenticated by: Padma Harrington MD. Ordering:NAZARIO Mcgovern MD
[2023-12-29 16:12] LABS: ALT 14 U/L (16-63); AST 14 U/L (15-37); Albumin 3.1 g/dL (3.4-5.0); Alkaline Phosphatase 51 U/L (46-116); Anion Gap 7.5 mmol/L (3-11); BUN 8 mg/dL (7-18); Bilirubin, Total 0.6 mg/dL (0.2-1.0); CO2 29.5 mmol/L (21.0-32.0); Calcium 8.5 mg/dL (8.5-10.1); Chloride 97 mmol/L (98-107); Estimated GFR 87.24 (mL/min/1.73m2); Glucose 101 mg/dL (74-106); Lipase < 10 U/L (16-77); Magnesium 1.8 mg/dL (1.8-2.4); NT-proBNP 433 pg/mL (<300); Potassium 4.2 mmol/L (3.5-5.1); Sodium 134 mmol/L (136-145); Total Protein 7.5 g/dL (6.4-8.2); Troponin I < 50 ng/L (< or =60)
[2023-12-29 18:50] LABS: Troponin I < 50 ng/L (< or =60)
== END 2023-12-29 19:27 | disposition home or self-care (01) ==
PROVIDERS: Emergency Provider Physician Assistant; PCP Family Medicine
DX: R07.9 Chest pain, unspecified (principal); F41.9 Anxiety disorder, unspecified; D64.9 Anemia, unspecified
CPT/HCPCS: 36415; 80053; 83690; 93005; 99283; 71046; 83735; 83880; 84484; 85025; 93010

== ENCOUNTER 2024-01-30 14:23 | Emergency (ER) | payer MEDICAID, SELFPAY ==
[2024-01-30 14:00] VITALS: BP 163/70; PULSE 68; RESP 15; TEMP 36.5; O2SAT 96
--- NOTE | 2024-01-30 15:52 | ED.GENADUL_ITS ---
Discharge Plan Discharge Details Chief Complaint: Anxiety Clinical Impression: Anxiety, Chest pain Primary Care Provider: Brandon Foster ED Provider: Dariel Matthews Coffey Meds and New Rx's Prescriptions: No Action Emgality Pen 120 mg/mL pen injector 120 mg subcut QMONTH Qty: 1 11RF Nurtec ODT 75 mg tablet,disintegrating 75 mg PO ONCE PRN (Reason: migraine headache) Qty: 10 3RF Rx Instructions: As a single dose. No more than one dose in 24 hours. sumatriptan succinate 100 mg tablet See Rx Instructions PO .COMPLEX Qty: 9 5RF Rx Instructions: take 1 tab at onset of headache; if no relief, may repeat 1 tab after at least 2 hrs; max = 2 tabs/24 hrs PO gabapentin 300 mg capsule 300 mg PO TID nicotine (polacrilex) 2 mg gum 2 mg buccal Q2H Qty: 100 1RF Claritin Liqui-Gel 10 MG capsule 1 cap PO DAILY Qty: 90 prochlorperazine maleate 10 mg tablet See Rx Instructions .ROUTE .COMPLEX Qty: 20 2RF Dose Instruction: TAKE 1 TABLET BY MOUTH EVERY 8 HOURS NEEDED FOR NAUSEA AND VOMITING, HEADACHE Rx Instructions: TAKE 1 TABLET BY MOUTH EVERY 8 HOURS NEEDED FOR NAUSEA AND VOMITING, HEADACHE nicotine (polacrilex) 4 mg gum 4 mg buccal Q2H Qty: 100 2RF multivitamin Tablet 1 tab PO DAILY metformin 500 mg tablet 1 tab PO BID omeprazole 20 mg capsule,delayed release(DR/EC) 40 mg PO DAILY clonazepam 0.5 mg tablet See Rx Instructions .ROUTE .COMPLEX Rx Instructions: 1 tab in AM, 1 tab at Noon and 2 tab QHS clonazepam 1 mg tablet 0.5 mg PO TID ondansetron 4 mg tablet,disintegrating 4 mg PO Q8H PRNQty: 10 0RF benztropine 0.5 MG tablet 0.5 mg PO BID aspirin,buffd-calcium carb-mag 325 MG tablet 325 mg PO DAILY risperidone microspheres [Risperdal Consta] 25 mg/2 mL suspension,extended rel recon 25 mg IM USEASDIRECTD Patient Comments: INJECT ONE SYRINGE INTRAMUSCULARLY ONCE EVERY TWO WEEKS Rx Instructions: every 2 weeks lactulose 10 gram/15 mL solution 20 g PO DIRECTED PRN Patient Comments: TAKE ONE TO TWO TABLESPOONS BY MOUTH NEEDED WHEN 3 DAYS PASS WITHOUT BOWEL MOVEMENT albuterol sulfate 90 mcg/actuation aerosol powdr breath activated 2 inh IH Q6H PRN (Reason: shortness of breath or wheezing) Qty: 1 0RF atenolol 50 mg tablet 75 mg PO DAILY Rx Instructions: To take with 25mg dose for TDD 75mg daily simvastatin 40 mg tablet 80 mg PO DAILY fluoxetine 40 mg capsule 80 mg PO DAILY HPI General Mode of arrival: EMS . Date/Time Provider Initiated Documentation: 01/30/24 15:05 . Limitations to Documentation: no limitations . Information obtained by: patient . HPI Narrative: Patient presenting to ED with complaint of acute anxiety with resulting chest pain which radiates into his shoulders. This is not a new complaint and patient has been evaluated a number of times for same. He reports symptoms probably began around noon time. They resolved after arrival here. He currently has no complaints in the ED but is requesting to go to [place] for 1 to 2 weeks for no specific region other than the rest. He denies any SI or HI. Denies any fever, cough, shortness of breath, abdominal pain, vomiting. Chest pain is not different than previous episodes of chest pain associated with anxiety. Related Data Home Medications Medication Instructions Recorded Confirmed loratadine 10 mg capsule (Claritin 1 cap PO DAILY #90 tabs 12/16/14 11/30/23 Liqui-Gel) aspirin,buffered (calcium 325 mg PO DAILY 11/18/16 11/30/23 carbonate-magnesium) 325 mg tablet benztropine 0.5 mg tablet 0.5 mg PO BID 11/18/16 11/30/23 lactulose 10 gram/15 mL oral 20 g PO DIRECTED PRN 10/03/20 11/30/23 solution risperidone microspheres 25 mg/2 25 mg IM USEASDIRECTD 10/03/20 11/30/23 mL intramuscular susp,ext release (Risperdal Consta) albuterol sulfate 90 mcg/actuation 2 inh inhalation Q6H PRN shortness 12/15/20 11/30/23 breath activated powder inhaler of breath or wheezing #1 ea multivitamin 1 tab PO DAILY 01/26/21 11/30/23 metformin 500 mg tablet 1 tab PO BID 03/18/22 11/30/23 omeprazole 20 mg capsule,delayed 40 mg PO DAILY 03/18/22 11/30/23 release atenolol 50 mg tablet 75 mg PO DAILY 09/26/22 11/30/23 prochlorperazine maleate 10 mg See Rx Instructions .Route 01/08/23 11/30/23 tablet .COMPLEX #20 tabs clonazepam 0.5 mg tablet See Rx Instructions .Route .COMPLEX 03/04/23 11/30/23 fluoxetine 40 mg capsule 80 mg PO DAILY 03/08/23 11/30/23 galcanezumab-gnlm 120 mg/mL 120 mg subcut QMONTH #1 mL 03/08/23 11/30/23 subcutaneous pen injector (Emgality Pen) rimegepant 75 mg disintegrating 75 mg PO ONCE PRN migraine 03/08/23 11/30/23 tablet (Nurtec ODT) headache #10 tabs sumatriptan succinate 100 mg tablet See Rx Instructions PO .COMPLEX #9 03/08/23 11/30/23 tabs gabapentin 300 mg capsule 300 mg PO TID 03/27/23 11/30/23 nicotine (polacrilex) 2 mg gum 2 mg buccal Q2H #100 ea 03/27/23 11/30/23 simvastatin 40 mg tablet 80 mg PO DAILY 03/27/23 11/30/23 nicotine (polacrilex) 4 mg gum 4 mg buccal Q2H #100 ea 04/03/23 11/30/23 clonazepam 1 mg tablet 0.5 mg PO TID 11/30/23 11/30/23 ondansetron 4 mg disintegrating 4 mg PO Q8H PRN #10 tabs 11/30/23 tablet Previous Rx's Medication Instructions Recorded albuterol sulfate 90 mcg/actuation 2 inh inhalation Q6H PRN shortness 12/15/20 breath activated powder inhaler of breath or wheezing #1 ea prochlorperazine maleate 10 mg See Rx Instructions .Route 01/08/23 tablet .COMPLEX #20 tabs galcanezumab-gnlm 120 mg/mL 120 mg subcut QMONTH #1 mL 03/08/23 subcutaneous pen injector (Emgality Pen) rimegepant 75 mg disintegrating 75 mg PO ONCE PRN migraine 03/08/23 tablet (Nurtec ODT) headache #10 tabs sumatriptan succinate 100 mg tablet See Rx Instructions PO .COMPLEX #9 03/08/23 tabs nicotine (polacrilex) 2 mg gum 2 mg buccal Q2H #100 ea 03/27/23 nicotine (polacrilex) 4 mg gum 4 mg buccal Q2H #100 ea 04/03/23 ondansetron 4 mg disintegrating 4 mg PO Q8H PRN #10 tabs 11/30/23 tablet Allergies Allergy/AdvReac Type Severity Reaction Status Date / Time buspirone Allergy Verified 11/30/23 12:21 paliperidone Allergy Verified 11/30/23 12:21 paroxetine HCl [From Paxil] Allergy Verified 11/30/23 12:21 sertraline Allergy Verified 11/30/23 12:21 ziprasidone [From Geodon] Allergy Other (See Verified 11/30/23 12:21 Comment) aripiprazole [From Abilify] AdvReac Intermediate INVOLUNTARY Verified 11/30/23 12:21 MUSCLE MOVEMENTS divalproex sodium AdvReac Intermediate INVOLUNTARY Verified 11/30/23 12:21 [From Depakote] MUSCLE MOVEMENTS mirtazapine AdvReac Intermediate INVOLUNTARY Verified 11/30/23 12:21 MUSCLE MOVEMENTS risperidone AdvReac Intermediate INVOLUNTARY Verified 11/30/23 12:21 MUSCLE MOVEMENTS benztropine mesylate AdvReac elevated Verified 11/30/23 12:21 [From Cogentin] blood sugars enviornmental Allergy Mild Wheezing Uncoded 11/30/23 12:21 General Stated Complaint: Anxiety CARLOS: 2 Review of Systems Narrative: Per HPI Exam Narrative Exam Narrative: Const: Obese male in NAD. VS per triage. HEENT: NC/AT. Normal facial exam. Eyes: Normal conjunctiva and sclera. Neck: Supple. Trachea midline. Lungs: Normal respiratory effort. Lungs are clear. Cor: RRR with murmur. Good radial pulses. GI: Soft. NT/ND. Neuro: A+O x 3. Normal speech, mentation. Cranial nerves II - XII grossly intact. No gross motor or sensory deficit. Skin: Warm and dry without rash. Psych: Flat affect. No SI/HI Course Vital Signs Vital signs: Vital Signs Temperature 97.7 F 01/30/24 14:00 Pulse 68 01/30/24 14:00 Respiratory Rate 15 01/30/24 14:00 Blood Pressure 163/70 H 01/30/24 14:00 Pulse Oximetry 96 01/30/24 14:00 Temperature 97.7 F 01/30/24 14:00 Temperature Source Temporal Artery Scan 01/30/24 14:00 Pulse 68 01/30/24 14:00 Respiratory Rate 15 01/30/24 14:00 Blood Pressure 163/70 H 01/30/24 14:00 Blood Pressure Position Sitting 01/30/24 14:00 Pulse Oximetry 96 01/30/24 14:00 Oxygen Delivery Method Nasal Cannula 01/30/24 14:00 Medical Decision Making Patient presenting to ED with complaint of anxiety and chest pain. Patient seen many times in the past for same. Currently asymptomatic. Will obtain base line labs and EKG. He is asking to go to [place] which I do not think is necessary but he is followed by [facility] so we will have them evaluate. Patient's EKG is unchanged from previous. Troponin is negative. CBC with continued anemia which is baseline. Thrombocytopenia little worse. Chemistries with a sodium of 127, seems to range from mid 20s to low 30s so not significantly different. Patient cleared to be evaluated by [facility]. Patient evaluated by mental health. He is now reporting SI and HI to them. He is making threats to an acquaintance down in [place]. Mental health recommending hold overnight and reevaluation in the morning. Patient will be moved to [facility] and placed on psychiatric hold pending reevaluation in the morning. Medical Records Medical records reviewed: Yes I reviewed the patient's medical records. Lab Data Lab results reviewed: Yes I reviewed the patient's lab results. Lab results narrative: see [facility] ECG Data Attestation: I personally reviewed and interpreted this ECG (s) as follows: Prior ECG tracings: available for review Interpretation: see EKG Quality:SDOH Health Related Social Needs: Health related social needs food insecurity PFSH All Active Problems (Updated 01/30/24 @ 18:56 by Dariel Matthews MD) Anxiety (Chronic) Dental caries (Acute) Nicotine dependence (Acute) Dyspnea on exertion (Acute) Shortness of breath (Acute) Hypercholesterolemia (Chronic 09/07/14) pt insists on lipitor 80 mg due to family hx Depression (Acute 10/02/14) Left-sided chest wall pain (Acute) Chest pain (Acute) Chronic headache (Acute) Migraine headache without aura (Acute) Migraine (Chronic) Poor dentition (Acute) Tobacco use disorder (Chronic) started 2013 1.5 ppd, pipe 1-7/week, QUIT LATE OCT 2021 Allergic rhinitis (Chronic) lortadine Hiatal hernia (Chronic) protonix not effective, nexium works better 02/12/18 Anemia (Chronic) Broken teeth (Chronic) Drug-seeking behavior (Chronic ~09/20/21) Requests Ritalin from providers Medication overuse headache (Acute) Medical History Obesity BMI 52 Hypertension pt requests brand name Tenormin vs atenolol 04/02/18 GERD (gastroesophageal reflux disease) (09/07/14) Diabetes mellitus type 2 in obese (09/09/14) Hypothyroidism (acquired) (09/07/14) Schizoaffective disorder (09/07/14) FREDDIE Thakkar 09/2014- [facility] inpatient Trigeminal neuralgia Anxiety Mitral valve prolapse Hyperlipidemia Peripheral neuropathy Surgical History No significant past surgical history Family History Father Heart disease DE Social History Smoking/Tobacco Use Status: Former Tobacco Use Smoking risk assessment performed?: Yes Alcohol Intake: never Drug use: Never Substance use type: does not use Adopted: No Caregiver/Support person: No Foster care: No Household members: none Housing: apartment Number of Children: 2 number of grandchildren: 1 Communication Needs: Corrective Lenses Education Level: college Do you need help understanding health information?: Always current occupation: Unemployed/Leave of absence Sexually active: No Do you think of yourself as: Decline to provide Current gender identity: male What type of physical activity do you participate in: other Details: weight lifting Frequency: 3-4 times per week Magalie/Anabaptism: Holiness Seatbelt use: always Drive 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
--- NOTE | 2024-01-30 16:00 | RT.EKG_ITS ---
APPROVED REPORT Exam: Resting ECG Reason for Exam: Patient Location: E HR:57 bpm ECG Measurements Heart Rate 57 AXIS IA 210 P 41 QRSd 97 QRS 10 QT 467 T 87 QTc 456 Conclusion Sinus bradycardia...rate< 60 Prolonged IA interval...IA >210, V-rate 50- 90 There are no significant changes compared to prior EKG performed on 12/29/2023 at 15:08.
[2024-01-30 16:19] LABS: HCT 30.3 % (40.0-50.0); HGB 10.6 g/dL (13.5-17.5); MCV 92 fL (80-95); MPV 8.9 fL (8.0-11.0); RBC 3.31 10^6/uL (4.36-5.78); RDW 12.7 % (11.8-14.1); WBC 4.38 10^3/uL (4.4-10.8)
[2024-01-30 16:38] LABS: BUN 11 mg/dL (7-18); CREATININE 0.9 mg/dL (0.70-1.30); Calcium 8.3 mg/dL (8.5-10.1); Chloride 94 mmol/L (98-107); Glucose 105 mg/dL (74-106); Potassium 4.9 mmol/L (3.5-5.1); Sodium 127 mmol/L (136-145); Troponin I < 50 ng/L (< or =60)
[2024-01-30 16:39] LABS: Platelet Count 86 10^3/uL (130-400)
--- NOTE | 2024-01-30 23:40 | ED.PROG_ITS ---
Date of service: 01/30/24 Time of Service: 23:40 Medical Decision Making This patient was signed out to me. Please see previous notes for H&P and initial eval. In brief, 58yo M presenting voluntarily with anxiety. Plan for [facility] re-eval in the morning. Overnight appeared to be sleeping comfortably. Did not wake for assessment. Signed out to oncoming physician; plan remains as above. Quality:SDOH Health Related Social Needs: Health related social needs food insecurity Sign Out Sign Out Data: Sign Out Comment: hold pending repeat eval in morning Last updated by Dariel Matthews MD at 01/30/24 23:05 Discharge Plan Discharge Details Chief Complaint: Anxiety Clinical Impression: Anxiety, Chest pain Primary Care Provider: Brandon Foster ED Provider: Sparkle Slater Home Meds and New Rx's Prescriptions: No Action Emgality Pen 120 mg/mL pen injector 120 mg subcut QMONTH Qty: 1 11RF Nurtec ODT 75 mg tablet,disintegrating 75 mg PO ONCE PRN (Reason: migraine headache) Qty: 10 3RF Rx Instructions: As a single dose. No more than one dose in 24 hours. sumatriptan succinate 100 mg tablet See Rx Instructions PO .COMPLEX Qty: 9 5RF Rx Instructions: take 1 tab at onset of headache; if no relief, may repeat 1 tab after at least 2 hrs; max = 2 tabs/24 hrs PO gabapentin 300 mg capsule 300 mg PO TID nicotine (polacrilex) 2 mg gum 2 mg buccal Q2H Qty: 100 1RF Claritin Liqui-Gel 10 MG capsule 1 cap PO DAILY Qty: 90 prochlorperazine maleate 10 mg tablet See Rx Instructions .ROUTE .COMPLEX Qty: 20 2RF Dose Instruction: TAKE 1 TABLET BY MOUTH EVERY 8 HOURS NEEDED FOR NAUSEA AND VOMITING, HEADA MARILYN Rx Instructions: TAKE 1 TABLET BY MOUTH EVERY 8 HOURS NEEDED FOR NAUSEA AND VOMITING, HEADACHE nicotine (polacrilex) 4 mg gum 4 mg buccal Q2H Qty: 100 2RF multivitamin Tablet 1 tab PO DAILY metformin 500 mg tablet 1 tab PO BID omeprazole 20 mg capsule,delayed release(DR/EC) 40 mg PO DAILY clonazepam 0.5 mg tablet See Rx Instructions .ROUTE .COMPLEX Rx Instructions: 1 tab in AM, 1 tab at Noon and 2 tab QHS clonazepam 1 mg tablet 0.5 mg PO TID ondansetron 4 mg tablet,disintegrating 4 mg PO Q8H PRNQty: 10 0RF benztropine 0.5 MG tablet 0.5 mg PO BID aspirin,buffd-calcium carb-mag 325 MG tablet 325 mg PO DAILY lactulose 10 gram/15 mL solution 20 g PO DIRECTED PRN Patient Comments: TAKE ONE TO TWO TABLESPOONS BY MOUTH NEEDED WHEN 3 DAYS PASS WITHOUT BOWEL MOVEMENT albuterol sulfate 90 mcg/actuation aerosol powdr breath activated 2 inh IH Q6H PRN (Reason: shortness of breath or wheezing) Qty: 1 0RF atenolol 50 mg tablet 75 mg PO DAILY Rx Instructions: To take with 25mg dose for TDD 75mg daily simvastatin 40 mg tablet 80 mg PO DAILY fluoxetine 40 mg capsule 80 mg PO DAILY
--- NOTE | 2024-01-31 07:20 | ED.PROG_ITS ---
Date of service: 01/31/24 Time of Service: 07:20 Medical Decision Making I received signout on this 58-year-old male in the emergency department voluntarily in the setting of homicidal ideation. He has been assessed by [facility] services. He is pending reevaluation in the morning today. He is a regular diet ordered on a safety tray along with his home medications. Will update documentation as clinically warranted. 11:45 AM I spoke with Sophy from [facility] services. She reported that patient was cleared for discharge with a safety plan. I met the patient. He denies suicidal and homicidal ideation. Will write him with empiric trial of discharge with outpatient expectant management. Quality:SDOH Health Related Social Needs: Health related social needs food insecurity Sign Out Sign Out Data: Sign Out Comment: hold pending repeat eval in morning Last updated by Dariel Matthews MD at 01/30/24 23:05 Sign Out Comment: 58M voluntary for anxiety. Pending [facility] re-eval in the morning. Last updated by Sparkle Slater MD at 01/31/24 06:07 Discharge Plan Disposition Patient Disposition: Home Discharge Details Clinical Impression: Anxiety, Chest pain Primary Care Provider: Brandon Foster ED Provider: Avery Causey Home Meds and New Rx's Prescriptions: Continued Emgality Pen 120 mg/mL pen injector 120 mg subcut QMONTH Qty: 1 11RF gabapentin 300 mg capsule 300 mg PO QID Claritin Liqui-Gel 10 MG capsule 1 cap PO DAILY Qty: 90 multivitamin Tablet 1 tab PO DAILY metformin 500 mg tablet 1 tab PO BID clonazepam 0.5 mg tablet See Rx Instructions .ROUTE .COMPLEX Rx Instructions: 1 tab in AM, 1 tab at Noon and 2 tab QHS ondansetron 4 mg tablet,disintegrating 4 mg PO Q8H PRNQty: 10 0RF benztropine 0.5 MG tablet 0.5 mg PO BID aspirin,buffd-calcium carb-mag 325 MG tablet 325 mg PO DAILY lactulose 10 gram/15 mL solution 20 g PO DIRECTED PRN Patient Comments: TAKE ONE TO TWO TABLESPOONS BY MOUTH NEEDED WHEN 3 DAYS PASS WITHOUT BOWEL MOVEMENT albuterol sulfate 90 mcg/actuation aerosol powdr breath activated 2 inh IH Q6H PRN (Reason: shortness of breath or wheezing) Qty: 1 0RF simvastatin 40 mg tablet 80 mg PO DAILY fluoxetine 40 mg capsule 80 mg PO DAILY atenolol 25 mg tablet 75 mg PO DAILY Patient Comments: Take 3 tablet by mouth once a day Invega Sustenna 117 mg/0.75 mL syringe 117 mg IM Q30D divalproex [Depakote ER] 500 mg tablet extended release 24 hr 1,000 mg PO BID omeprazole 40 mg capsule,delayed release(DR/EC) 40 mg PO DAILY Patient Comments: TAKE 1 CAPSULE BY MOUTH DAILY FOR HEARTBURN Discharge Instructions Additional Instructions: You were seen by [facility] human services. You were given a safety plan. If you do not feel comfortable or safe at home please return to the emergency department. Otherwise please follow-up with primary care provider as seen next week.
[2024-01-31] MEDS: Aspirin E.C. 325 MG TABEC PO (08:02)
[2024-01-31] MEDS: clonazePAM 1 MG TAB 0.5 MG PO (08:03)
[2024-01-31] MEDS: Multivitamin TAB 1 TAB PO (08:03)
[2024-01-31] MEDS: Atenolol 25 MG TAB 75 MG PO (08:03)
[2024-01-31] MEDS: Omeprazole 20 MG CAPCR 40 MG PO (08:03)
[2024-01-31] MEDS: metFORMIN 500 MG TAB PO (08:03)
[2024-01-31] MEDS: Gabapentin 300 MG CAP PO (08:03)
--- NOTE | 2024-01-31 08:24 | PDOC.CMSAFE ---
Date of service: 01/31/24 Time of Service: 08:25 Care Management Safety Plan Status Status: Voluntary Reason for Wait Reason for Wait: Assessment/Screening Safety Plan Safety Plan: VOLUNTARY FOR INPATIENT PSYCHIATRIC STABILIZATION.? Patient is appropriate in all interactions since arriving at [facility]; Pt has demonstrated appropriate coping and communication skills, has articulated his or her needs and concerns and is fully engaged during staff interactions. CM huddled with CIERA Denton, Mellisa RN Hearing Care Professional, NORBERTO Chaudhari/MATTHEW, and Sophy [facility]. Per staff, Avery has asked to speak to [facility] to create a safety plan and return home. Avery is a [employer]AD client who is well known to [facility]. Sophy reported that she will meet with Avery and with shared decision making will create a safety plan for him to return to the community. CM will continue to follow. Safety plan has been established with patient, and care team, to adhere to patient goals, identify restrictions based on behavioral status, address nutrition, and determine allowed personal belongings, tools for hygiene and personal care. Determine level of activity including ambulation, level of supervision, visitors, and determine privileges based on behaviors and level of engagement by pt. SAFETY PLAN: 1. Will remain on suicide precautions, in paper clothes 2. Will remain in Zone B under direct supervision of one-on-one staff at all times provided by [employer]; OLIVIER THORNTON community development coordinator. 3. May have paper cups, plates, finger foods as well as a cardboard spoon with which to eat meals. 4. Follow [facility] Management of the Admitted Behavioral Health Patient policy. 5. Shower available in Zone B without restriction. 6. Personal belongings-soft items permitted at RN discretion. 7. Visitors-none at this time. 8. Activities: soft cart items approved per RN discretion. 9.? Bathroom available in Zone B without restriction. 10. Phone: limited to [facility] cordless phone at RN discretion. Due to VOLUNTARY status, if patient wishes to leave [facility], staff will contact [facility] Crisis Screener ([phone]) and Tin Can Laborer ([phone]) as soon as possible. In the event of elopement, notify [facility] Police ([phone]). Patient is currently voluntarily at [facility] and seeking inpatient admission when a bed becomes available. [facility] Frontline Commercial Production Editor will continue seeking placement. Please contact the Tin Can Laborer ([phone]) and [facility] Commercial Production Editor ([phone]) for any needed changes in the Safety Plan. Safety plan has been provided to interdepartmental care team.
--- NOTE | 2024-01-31 10:34 | TELEP.MEDR_ITS ---
Date of service: 01/31/24 Time of Service: 10:34 Telepharmacy Home Med Rec Allergies Allergies: buspirone Allergy (Verified 11/30/23 12:21) paliperidone Allergy (Verified 11/30/23 12:21) paroxetine HCl [From Paxil] Allergy (Verified 11/30/23 12:21) sertraline Allergy (Verified 11/30/23 12:21) ziprasidone [From Geodon] Allergy (Verified 11/30/23 12:21) Other (See Comment) aripiprazole [From Abilify] Adverse Reaction (Intermediate, Verified 11/30/23 12:21) INVOLUNTARY MUSCLE MOVEMENTS divalproex sodium [From Depakote] Adverse Reaction (Intermediate, Verified 11/30/23 12:21) INVOLUNTARY MUSCLE MOVEMENTS mirtazapine Adverse Reaction (Intermediate, Verified 11/30/23 12:21) INVOLUNTARY MUSCLE MOVEMENTS risperidone Adverse Reaction (Intermediate, Verified 11/30/23 12:21) INVOLUNTARY MUSCLE MOVEMENTS benztropine mesylate [From Cogentin] Adverse Reaction (Verified 11/30/23 12:21) elevated blood sugars enviornmental Allergy (Mild, Uncoded 11/30/23 12:21) Wheezing Interview Person Interviewed: Spoke with Avery to confirm his medicaitons. Due to lack of Surescripts data, called Jer Briseno [facility] [phone] confirm medication regimen. Quality Quality of Interview/Accuracy of Medication List: Good Sources Sources used to compile medication list: [employer] Medication List and Retail Pharmacy Changes made to Home Medication List: ADDITIONS: Divalproex ER 1000mg BID Invega 117mg IM monthly DELETIONS: Nicotine 2mg gum Prochlorperazine CHANGES: Clonazepam 0.5mg to 1 tab AM, 1 tab PM, 2 tabs HS Gabapentin to QID Additional Notes Additional Notes: None Recommended Changes Recommended Changes(reason for recommendation): None Attestation: The home medication list is now updated to the best of my knowledge and is ready to be reconciled by the provider. Please contact the TelePharmacy Medication Reconciliation Pharmacist at for any questions.
--- NOTE | 2024-01-31 16:25 | MHPN_ITS ---
Date of service: 01/31/24 Time of Service: 16:25 Mental Health Emergency Note Release [facility] release signed:: Yes Reason for Visit The client arrived on 01.30.24 for assessment and wish to go to for treatment. He requested to go home today. This clinician assessed him face to face. 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 Self Injury Current: No History: No Safety Risk/Harm to Self or Others Current Ideation to Harm Self or Others: No Risk: Does risk to harm exist?: No Risk: Low Risk Duty to warn indicated: No Asssessment/Mental Status Appearance: Unremarkable Attitude: Cooperative Behavior: Unremarkable Speech: Normal Affect: Normal Mood: Euthymic Thought process: Unremarkable Hallucinations: No Delusions: No Attention: Unremarkable Perception: Not impaired Orientation: Fully orientated Memory: Intact Insight: Fair Judgement: Fair Neurovegetative Symptoms Sleep: No change Appetitie: No change Interests: No change Energy: No change Libido: Not applicable Substance Use: Do you use nicotine?: No Have you used substances in the last 7 days?: No Additional Issues: Assaultive/Threatening Behavior: No Medical Concerns: No Client engaged in active self harm w/weapon: No Threatening to run away: No Child reported abuse/neglect: No Voluntarily presenting for services: Yes Domestic violence is a concern: No Extreme Psychosis or extreme behavior is present: Yes Impression The client is a58 year old, single, male who lives independently at home in [facility]. 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 It appears that the client get's lonely and then starts to have panic and thoughts of wanting to harm others (no contact with said friend from school per the client's report) and then calls 911 to go to the hospital seeking inpatient treatment. The client is observed lying in bed and engaging fully in the discussion. He has fair insight and judgment however, when he said he did the right thing by calling 911 this clinician counseled him on the proper use of 911 medical emergencies not that he is lonely or having anxiety. We discussed other steps he should take instead to include the proper channels for anxiety of 988 and [facility] ES. The client engaged in a safety plan where the proper protocols are outlined in writing for him again. Plan/Disposition Recommended Disposition: [facility] Services [facility] Services: TECHNICAL COORDINATOR. Plan: The client was discharged home on a safety plan to include check in calls to [facility] and 8 moving forward when he starts to feel a crisis coming on. Person reported agreement to plan: Yes Reports/communication Outcome discussed with: ED/Personnel
== END 2024-01-31 12:04 | disposition home or self-care (01) ==
PROVIDERS: Emergency Medicine; Emergency Provider Emergency Medicine; PCP Family Medicine
DX: F41.9 Anxiety disorder, unspecified (principal); R07.9 Chest pain, unspecified; R45.850 Homicidal ideations
CPT/HCPCS: 00123; 80048; 85027; 93005; 99284; 84484; 93010

== ENCOUNTER 2024-02-17 09:18 | Emergency (ER) | payer MEDICAID, SELFPAY ==
[2024-02-17] VITALS (56 sets, daily range): BP systolic 130–172; BP diastolic 57–73; PULSE 59–66; RESP 10–17; TEMP 36.6; O2SAT 96–99
--- NOTE | 2024-02-17 09:00 | RT.EKG_ITS ---
APPROVED REPORT Exam: Resting ECG Reason for Exam: chest tension Patient Location: E HR:64 bpm ECG Measurements Heart Rate 64 AXIS NC 213 P 44 QRSd 102 QRS 8 QT 458 T 78 QTc 471 Conclusion Sinus rhythm...normal P axis, V-rate 60- 99 Prolonged NC interval...NC >210, V-rate 50- 90
--- NOTE | 2024-02-17 09:28 | W.ED.GENAD ---
Discharge Plan Disposition Patient Disposition: Home Condition: Stable Discharge Details Clinical Impression: Anxiety, Chest pain Primary Care Provider: Brandon Foster ED Provider: Doc Ramos Home Meds and New Rx's Prescriptions: Continued Emgality Pen 120 mg/mL pen injector 120 mg subcut QMONTH Qty: 1 11RF gabapentin 300 mg capsule 300 mg PO QID Claritin Liqui-Gel 10 MG capsule 1 cap PO DAILY Qty: 90 multivitamin Tablet 1 tab PO DAILY metformin 500 mg tablet 1 tab PO BID clonazepam 0.5 mg tablet See Rx Instructions .ROUTE .COMPLEX Rx Instructions: 1 tab in AM, 1 tab at Noon and 2 tab QHS ondansetron 4 mg tablet,disintegrating 4 mg PO Q8H PRNQty: 10 0RF benztropine 0.5 MG tablet 0.5 mg PO BID aspirin,buffd-calcium carb-mag 325 MG tablet 325 mg PO DAILY lactulose 10 gram/15 mL solution 20 g PO DIRECTED PRN Patient Comments: TAKE ONE TO TWO TABLESPOONS BY MOUTH NEEDED WHEN 3 DAYS PASS WITHOUT BOWEL MOVEMENT albuterol sulfate 90 mcg/actuation aerosol powdr breath activated 2 inh IH Q6H PRN (Reason: shortness of breath or wheezing) Qty: 1 0RF simvastatin 40 mg tablet 80 mg PO DAILY fluoxetine 40 mg capsule 80 mg PO DAILY atenolol 25 mg tablet 75 mg PO DAILY Patient Comments: Take 3 tablet by mouth once a day Invega Sustenna 117 mg/0.75 mL syringe 117 mg IM Q30D divalproex [Depakote ER] 500 mg tablet extended release 24 hr 1,000 mg PO BID omeprazole 40 mg capsule,delayed release(DR/EC) 40 mg PO DAILY Patient Comments: TAKE 1 CAPSULE BY MOUTH DAILY FOR HEARTBURN HPI General Mode of arrival: EMS. Date/Time Provider Initiated Documentation: 02/17/24 09:19. Limitations to Documentation: no limitations. Information obtained by: patient. History of Present Illness 58 year old M presents to the emergency department with the chief complaint of Panic attacks, described as moderate, Patient started experiencing this hour(s) (3) and it has been now resolved. No relieving factors improve symptom(s), No exacerbating factors reported . Patient notes chest pain; denies fever/chills and shortness of breath. Patient did receive the following treatments prior to arrival, none Related Data Home Medications Medication Instructions Recorded Confirmed loratadine 10 mg capsule (Claritin 1 cap PO DAILY #90 tabs 12/16/14 02/17/24 Liqui-Gel) aspirin,buffered (calcium 325 mg PO DAILY 11/18/16 02/17/24 carbonate-magnesium) 325 mg tablet benztropine 0.5 mg tablet 0.5 mg PO BID 11/18/16 02/17/24 lactulose 10 gram/15 mL oral 20 g PO DIRECTED PRN 10/03/20 02/17/24 solution albuterol sulfate 90 mcg/actuation 2 inh inhalation Q6H PRN shortness 12/15/20 02/17/24 breath activated powder inhaler of breath or wheezing #1 ea multivitamin 1 tab PO DAILY 01/26/21 02/17/24 metformin 500 mg tablet 1 tab PO BID 03/18/22 02/17/24 clonazepam 0.5 mg tablet See Rx Instructions .Route .COMPLEX 03/04/23 02/17/24 fluoxetine 40 mg capsule 80 mg PO DAILY 03/08/23 02/17/24 galcanezumab-gnlm 120 mg/mL 120 mg subcut QMONTH #1 mL 03/08/23 02/17/24 subcutaneous pen injector (Emgality Pen) gabapentin 300 mg capsule 300 mg PO QID 03/27/23 02/17/24 simvastatin 40 mg tablet 80 mg PO DAILY 03/27/23 02/17/24 ondansetron 4 mg disintegrating 4 mg PO Q8H PRN #10 tabs 11/30/23 02/17/24 tablet atenolol 25 mg tablet 75 mg PO DAILY 01/31/24 02/17/24 divalproex 500 mg tablet,extended 1,000 mg PO BID 01/31/24 02/17/24 release 24 hr (Depakote ER) omeprazole 40 mg capsule,delayed 40 mg PO DAILY 01/31/24 02/17/24 release paliperidone palmitate 117 mg/0.75 117 mg IM Q30D 01/31/24 02/17/24 mL intramuscular syringe (Invega Sustenna) Previous Rx's Medication Instructions Recorded albuterol sulfate 90 mcg/actuation 2 inh inhalation Q6H PRN shortness 12/15/20 breath activated powder inhaler of breath or wheezing #1 ea galcanezumab-gnlm 120 mg/mL 120 mg subcut QMONTH #1 mL 03/08/23 subcutaneous pen injector (Emgality Pen) ondansetron 4 mg disintegrating 4 mg PO Q8H PRN #10 tabs 11/30/23 tablet Allergies Allergy/AdvReac Type Severity Reaction Status Date / Time buspirone Allergy Other (See Verified 02/17/24 09:36 Comment) paliperidone Allergy Other (See Verified 02/17/24 09:36 Comment) paroxetine HCl [From Paxil] Allergy Other (See Verified 02/17/24 09:36 Comment) sertraline Allergy Other (See Verified 02/17/24 09:36 Comment) ziprasidone [From Geodon] Allergy Other (See Verified 02/17/24 09:36 Comment) aripiprazole [From Abilify] AdvReac Intermediate INVOLUNTARY Verified 02/17/24 09:36 MUSCLE MOVEMENTS divalproex sodium AdvReac Intermediate INVOLUNTARY Verified 02/17/24 09:36 [From Depakote] MUSCLE MOVEMENTS mirtazapine AdvReac Intermediate INVOLUNTARY Verified 02/17/24 09:36 MUSCLE MOVEMENTS risperidone AdvReac Intermediate INVOLUNTARY Verified 02/17/24 09:36 MUSCLE MOVEMENTS benztropine mesylate AdvReac elevated Verified 02/17/24 09:36 [From Cogentin] blood sugars enviornmental Allergy Mild Wheezing Uncoded 02/17/24 09:36 General CARLOS: 2 Review of Systems All systems reviewed & are unremarkable except as noted in HPI and below Constitutional Constitutional: Denies chills, Denies fever(s) and Denies weakness Cardiovascular Cardiovascular: Reports chest pain and Denies dyspnea Respiratory Respiratory: Denies cough and Denies dyspnea Gastrointestinal Gastrointestinal: Denies abdominal pain, Denies nausea and Denies vomiting Musculoskeletal Musculoskeletal: Denies joint swelling Neurologic Neurologic: Denies weakness Psychiatric Psychiatric: Denies depression Exam Const General: no acute distress Orientation: alert HENMT Head: normal to inspection Ears: external ears normal General nose exam: external nose normal Mouth: moist mucous membranes Eyes General: appearance normal, both eyes and all related structures Neck Neck: normal visual inspection Resp Effort & Inspection: normal respiratory effort and able to speak in complete sentences Auscultation: clear to auscultation bilaterally Cardio Rate: regular rate Heart Sounds: no murmurs GI Palpation: soft and nontender Skin General skin exam: no rashes or lesions noted Neuro General: patient alert and patient oriented x3 Extrem General: normal to inspection Psych Mental Status: mental status grossly normal Medical Decision Making 58-year-old male with a history of schizoaffective and anxiety, frequent ER visits for anxiety and chest pain comes in with complaints of increased pain attacks recently and this morning had a panic attack and had left-sided chest pain similar to his prior episodes. Denies any difficulty breathing, no fevers, no cough. Currently asymptomatic. Alert and oriented x 4 on arrival, lungs are clear to auscultation, no murmurs, no leg swelling or calf tenderness. Suspect his chest pain was related to his anxiety, will check a troponin, no tearing back pain to suggest dissection, will send D-dimer to screen for PE. Lungs are clear and has no pleuritic pain, no fevers or cough so doubt pneumothorax or pneumonia do not feel chest x-ray is indicated. Labs unremarkable given he has had symptoms for over 3 hours do not feel delta troponin indicated. He is stable sleeping on reassessment awakens easily to voice. He states he wishes to talk to mental health to discuss possibly going to [place] for his anxiety and panic attacks. Will have them evaluate Patient seen by mental health and is cleared to go home and will follow-up with him as an outpatient, no SI or HI. He will also follow-up with his primary care provider and return precautions given Differential Diagnosis Differential Diagnosis: Anxiety, panic attacks, musculoskeletal chest pain Medical Records Medical records reviewed: Yes I reviewed the patient's medical records. Lab Data Lab results reviewed: Yes I reviewed the patient's lab results. ECG Data Attestation: I personally reviewed and interpreted this ECG (s) as follows: Prior ECG tracings: available for review Interpretation: Sinus rhythm, rate of 64, [place] 213, no STEMI Quality:SDOH Health Related Social Needs: Health related social needs food insecurity PFSH All Active Problems (Updated 02/17/24 @ 12:28 by Doc Ramos MD) Chest pain (Acute) Anxiety (Chronic) Anxiety (Chronic) Dental caries (Acute) Nicotine dependence (Acute) Dyspnea on exertion (Acute) Shortness of breath (Acute) Hypercholesterolemia (Chronic 09/07/14) pt insists on lipitor 80 mg due to family hx Depression (Acute 10/02/14) Left-sided chest wall pain (Acute) Chest pain (Acute) Chronic headache (Acute) Migraine headache without aura (Acute) Migraine (Chronic) Poor dentition (Acute) Tobacco use disorder (Chronic) started 2013 1.5 ppd, pipe 1-7/week, QUIT LATE OCT 2021 Allergic rhinitis (Chronic) lortadine Hiatal hernia (Chronic) protonix not effective, nexium works better 02/12/18 Anemia (Chronic) Broken teeth (Chronic) Drug-seeking behavior (Chronic ~09/20/21) Requests Ritalin from providers Medication overuse headache (Acute) Medical History Obesity BMI 52 Hypertension pt requests brand name Tenormin vs atenolol 04/02/18 GERD (gastroesophageal reflux disease) (09/07/14) Diabetes mellitus type 2 in obese (09/09/14) Hypothyroidism (acquired) (09/07/14) Schizoaffective disorder (09/07/14) Rebekah Mariscal [facility] 09/2014- [facility] inpatient Trigeminal neuralgia Anxiety Mitral valve prolapse Hyperlipidemia Peripheral neuropathy Surgical History No significant past surgical history Family History Father Heart disease [place] Social History Smoking/Tobacco Use Status: Former Tobacco Use Smoking risk assessment performed?: Yes Alcohol Intake: never Drug use: Never Substance use type: does not use Adopted: No Caregiver/Support person: No Foster care: No Household members: none Housing: apartment Number of Children: 2 number of grandchildren: 1 Communication Needs: Corrective Lenses Education Level: college Do you need help understanding health information?: Always current occupation: Unemployed/Leave of absence Sexually active: No Do you think of yourself as: Decline to provide Current gender identity: male What type of physical activity do you participate in: other Details: weight lifting Frequency: 3-4 times per week Magalie/Nondenominational: Rastafari Seatbelt use: always Drive intox or ride w/intox substitute bus 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
[2024-02-17 10:04] LABS: Abs Immature Grans 0.02 10^3/uL (0.0-0.06); Absolute Basophil Count 0.01 10^3/uL (0.0-0.2); Absolute Eosinophil Count 0.14 10^3/uL (0.0-0.7); Absolute Monocyte Count 0.58 10^3/uL (0.1-0.8); Basophils % 0.2; Eosinophils % 3.5; HCT 29.8 % (40.0-50.0); HGB 10.6 g/dL (13.5-17.5); Immature Grans % 0.5; Lymphocytes % 27.2; MCHC 35.6 % (32.0-36.0); MCV 90 fL (80-95); MPV 8.8 fL (8.0-11.0); Monocytes % 14.3; Neutrophils % 54.3; Platelet Count 105 10^3/uL (130-400); RBC 3.31 10^6/uL (4.36-5.78); RDW 12.1 % (11.8-14.1); RDW-SD 39.6 fL; WBC 4.05 10^3/uL (4.4-10.8)
[2024-02-17 10:22] LABS: ALT 15 U/L (16-63); AST 8 U/L (15-37); Albumin 2.9 g/dL (3.4-5.0); Alkaline Phosphatase 49 U/L (46-116); Anion Gap 6.3 mmol/L (3-11); BUN 4 mg/dL (7-18); Bilirubin, Total 0.3 mg/dL (0.2-1.0); CO2 30.7 mmol/L (21.0-32.0); CREATININE 0.7 mg/dL (0.70-1.30); Calcium 8.2 mg/dL (8.5-10.1); Chloride 94 mmol/L (98-107); Glucose 146 mg/dL (74-106); Potassium 3.9 mmol/L (3.5-5.1); Sodium 131 mmol/L (136-145); Total Protein 6.8 g/dL (6.4-8.2); Troponin I < 50 ng/L (< or =60)
[2024-02-17 11:46] LABS: D-Dimer 491 ng/mlFEU (<500)
--- NOTE | 2024-02-18 16:38 | PDOC.MHCN ---
Date of service: 02/17/24 Time of Service: 16:38 Mental Health Emergency Note Release [facility] release signed:: Yes Reason for Visit Screening tools were not completed as they were just done a little over two weeks ago. The client arrived on for assessment and wish to go to for treatment. He requested to go home today. This clinician assessed him face to face. He was last seen on 01.31.24 just over two weeks ago. 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 Self Injury Current: No History: No Safety Risk/Harm to Self or Others Current Ideation to Harm Self or Others: No Risk: Does risk to harm exist?: No Risk: Low Risk Duty to warn indicated: No Asssessment/Mental Status Appearance: Disheveled and Poor hygiene Attitude: Cooperative Behavior: Unremarkable Speech: Soft and Slurred Affect: Flat Mood: Euthymic Thought process: Unremarkable Hallucinations: No Delusions: No Attention: Unremarkable Perception: Not impaired Orientation: Fully orientated Memory: Intact Insight: Poor Judgement: Poor Additional Issues: Assaultive/Threatening Behavior: No Medical Concerns: No Client engaged in active self harm w/weapon: No Threatening to run away: No Child reported abuse/neglect: No Voluntarily presenting for services: Yes Domestic violence is a concern: No Extreme Psychosis or extreme behavior is present: No Impression The client is a 58 year old, single, male who lives independently at home in [facility]. 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 It appears that the client get's lonely and then starts to have panic and thoughts of wanting to harm others (no contact with said friend from school per the client's report) and then calls 911 to go to the hospital seeking inpatient treatment. The client is screened at bedside. He struggled to wake and it appears he was fed lunch and is also chewing on a piece of gum but initially it looked like unchewed food. The client is a heavy set man who appears older than said age. when asked why he was at [facility] he said well I just came to make sure my medications are the right dose. He denied SI and HI and NSSI. Plan/Disposition Recommended Disposition: [facility] Services [facility] Services: LIVE STUDY MANAGER. Plan: The client presents frequently to the ED seeking inpatient treatment and it is suspected that he utilizes the ED as a means for respite/socialization. This clinician will follow up with his LIVE STUDY MANAGER team and try to figure out other ways to not have him go to the ED but rather have a mobile outreach instead. Client was sent home on a safety plan. Person reported agreement to plan: Yes Reports/communication Outcome discussed with: ED/Personnel
== END 2024-02-17 13:12 | disposition home or self-care (01) ==
PROVIDERS: Emergency Provider Emergency Medicine; PCP Family Medicine
DX: F41.9 Anxiety disorder, unspecified; R07.9 Chest pain, unspecified; Z59.41 Food insecurity
CPT/HCPCS: 00123; 80053; 93005; 99284; 84484; 85025; 85379; 93010

== ENCOUNTER 2024-02-26 17:44 | Outpatient (CLI) | payer MEDICAID, SELFPAY ==
[2024-02-26 11:38] LABS: ALT 13 U/L (16-63); AST 12 U/L (15-37); Albumin 3.2 g/dL (3.4-5.0); Alkaline Phosphatase 60 U/L (46-116); Anion Gap 6.9 mmol/L (3-11); BUN 7 mg/dL (7-18); Bilirubin, Total 0.4 mg/dL (0.2-1.0); CO2 29.1 mmol/L (21.0-32.0); CREATININE 0.8 mg/dL (0.70-1.30); Calcium 8.5 mg/dL (8.5-10.1); Calculated LDL 83 mg/dL (<100); Chloride 93 mmol/L (98-107); Cholesterol 142 mg/dL (<200); Estimated GFR 102.58 (mL/min/1.73m2); Glucose 101 mg/dL (74-106); HDL Cholesterol 39 mg/dL (40-60); Potassium 4.7 mmol/L (3.5-5.1); Sodium 129 mmol/L (136-145); Total Protein 7.6 g/dL (6.4-8.2); Triglyceride 102 mg/dL (<150)
== END 2024-02-26 17:45 | disposition home or self-care (01) ==
LOC: LBO 02-28 17:45
PROVIDERS: PCP Family Medicine; Visit Provider Family Medicine
DX: E78.5 Hyperlipidemia, unspecified (principal)
CPT/HCPCS: 36415; 80053; 80061

== ENCOUNTER 2024-03-06 08:14 | Emergency (ER) | payer MEDICAID, SELFPAY ==
[2024-03-06] VITALS (12 sets, daily range): BP systolic 100–160; BP diastolic 53–96; PULSE 57–62; RESP 10–18; TEMP 35.6–36.4; O2SAT 95–99
--- NOTE | 2024-03-06 08:00 | RT.EKG_ITS ---
APPROVED REPORT Exam: Resting ECG Reason for Exam: chest pain Patient Location: E HR:64 bpm ECG Measurements Heart Rate 64 AXIS ME 191 P 49 QRSd 95 QRS 27 QT 415 T 82 QTc 425 Conclusion Sinus rhythm...normal P axis, V-rate 60- 99 Atrial premature complex...SV complex w/ short R-R interval
[2024-03-06 09:25] LABS: Abs Immature Grans 0.03 10^3/uL (0.0-0.06); Absolute Basophil Count 0.02 10^3/uL (0.0-0.2); Absolute Eosinophil Count 0.22 10^3/uL (0.0-0.7); Absolute Lymphocyte Count 1.77 10^3/uL (1.2-3.4); Absolute Neutrophil Count 2.59 10^3/uL (1.2-6.7); Basophils % 0.4 %; Eosinophils % 4.3 %; HCT 32.9 % (40.0-50.0); HGB 11.2 g/dL (13.5-17.5); Immature Grans % 0.6 %; Lymphocytes % 34.5 %; MCH 32.1 pg (27.0-33.0); MCV 94 fL (80-95); MPV 8.9 fL (8.0-11.0); Monocytes % 9.7 %; Neutrophils % 50.5 %; Platelet Count 106 10^3/uL (130-400); RBC 3.49 10^6/uL (4.36-5.78); RDW 12.4 % (11.8-14.1); RDW-SD 42.6 fL; WBC 5.13 10^3/uL (4.4-10.8)
--- NOTE | 2024-03-06 09:31 | ED.GENADUL_ITS ---
Discharge Plan Disposition Patient Disposition: Home Condition: Stable Discharge Details Clinical Impression: Chest pain Primary Care Provider: Brandon Foster ED Provider: Liang Ng Home Meds and New Rx's Prescriptions: Continued Emgality Pen 120 mg/mL pen injector 120 mg subcut QMONTH Qty: 1 11RF gabapentin 300 mg capsule 300 mg PO QID Claritin Liqui-Gel 10 MG capsule 1 cap PO DAILY Qty: 90 multivitamin Tablet 1 tab PO DAILY metformin 500 mg tablet 1 tab PO BID clonazepam 0.5 mg tablet See Rx Instructions .ROUTE .COMPLEX Rx Instructions: 1 tab in AM, 1 tab at Noon and 2 tab QHS ondansetron 4 mg tablet,disintegrating 4 mg PO Q8H PRNQty: 10 0RF triamcinolone acetonide 0.1 % ointment 1 applic TOPICAL BID Patient Comments: Apply 1 a small amount to skin twice a day as needed as directed benztropine 0.5 MG tablet 0.5 mg PO BID aspirin,buffd-calcium carb-mag 325 MG tablet 325 mg PO DAILY lactulose 10 gram/15 mL solution 20 g PO DIRECTED PRN Patient Comments: TAKE ONE TO TWO TABLESPOONS BY MOUTH NEEDED WHEN 3 DAYS PASS WITHOUT BOWEL MOVEMENT albuterol sulfate 90 mcg/actuation aerosol powdr breath activated 2 inh IH Q6H PRN (Reason: shortness of breath or wheezing) Qty: 1 0RF simvastatin 40 mg tablet 80 mg PO DAILY fluoxetine 40 mg capsule 80 mg PO DAILY atenolol 25 mg tablet 75 mg PO DAILY Patient Comments: Take 3 tablet by mouth once a day Invega Sustenna 117 mg/0.75 mL syringe 117 mg IM Q30D divalproex [Depakote ER] 500 mg tablet extended release 24 hr 1,000 mg PO BID omeprazole 40 mg capsule,delayed release(DR/EC) 40 mg PO DAILY Patient Comments: TAKE 1 CAPSULE BY MOUTH DAILY FOR HEARTBURN Discharge Instructions Instructions: Chest Pain (ED) Additional Instructions: Please contact your primary care physician to arrange follow-up. Please call today. Additional outpatient diagnostic testing may be necessary. Be sure to discuss this with your doctor. No exertional activities until cleared by your doctor. Please rest. Return to the ER immediately for any worsening or new concerning symptoms. Referrals: Brandon Foster [Primary Care Provider] - [facility] General Mode of arrival: EMS . Date/Time Provider Initiated Documentation: 03/06/24 08:23 . Limitations to Documentation: no limitations . Information obtained by: patient . HPI Narrative: 58-year-old male with multiple medical problems including history of obesity, hypertension, GERD, diabetes, hyperlipidemia, schizoaffective disorder, anxiety, frequent ED visits, here with chief complaint of chest pain. Patient notes chest pain started on 45 minutes prior to arrival and has persisted. Pain is localized to left anterior parasternal chest. Pain is present and worse on palpation of the area. Pain also worse with deep inspiration. He states his breathing feels labored. Patient denies associated leg swelling. No calf pain. No nausea or vomiting. Related Data Home Medications Medication Instructions Recorded Confirmed loratadine 10 mg capsule (Claritin 1 cap PO DAILY #90 tabs 12/16/14 03/06/24 Liqui-Gel) aspirin,buffered (calcium 325 mg PO DAILY 11/18/16 03/06/24 carbonate-magnesium) 325 mg tablet benztropine 0.5 mg tablet 0.5 mg PO BID 11/18/16 03/06/24 lactulose 10 gram/15 mL oral 20 g PO DIRECTED PRN 10/03/20 03/06/24 solution albuterol sulfate 90 mcg/actuation 2 inh inhalation Q6H PRN shortness 12/15/20 03/06/24 breath activated powder inhaler of breath or wheezing #1 ea multivitamin 1 tab PO DAILY 01/26/21 03/06/24 metformin 500 mg tablet 1 tab PO BID 03/18/22 03/06/24 clonazepam 0.5 mg tablet See Rx Instructions .Route .COMPLEX 03/04/23 03/06/24 fluoxetine 40 mg capsule 80 mg PO DAILY 03/08/23 03/06/24 galcanezumab-gnlm 120 mg/mL 120 mg subcut QMONTH #1 mL 03/08/23 03/06/24 subcutaneous pen injector (Emgality Pen) gabapentin 300 mg capsule 300 mg PO QID 03/27/23 03/06/24 simvastatin 40 mg tablet 80 mg PO DAILY 03/27/23 03/06/24 ondansetron 4 mg disintegrating 4 mg PO Q8H PRN #10 tabs 11/30/23 03/06/24 tablet atenolol 25 mg tablet 75 mg PO DAILY 01/31/24 03/06/24 divalproex 500 mg tablet,extended 1,000 mg PO BID 01/31/24 03/06/24 release 24 hr (Depakote ER) omeprazole 40 mg capsule,delayed 40 mg PO DAILY 01/31/24 03/06/24 release paliperidone palmitate 117 mg/0.75 117 mg IM Q30D 01/31/24 03/06/24 mL intramuscular syringe (Invega Sustenna) triamcinolone acetonide 0.1 % 1 applic topical BID 03/06/24 03/06/24 topical ointment Previous Rx's Medication Instructions Recorded albuterol sulfate 90 mcg/actuation 2 inh inhalation Q6H PRN shortness 12/15/20 breath activated powder inhaler of breath or wheezing #1 ea galcanezumab-gnlm 120 mg/mL 120 mg subcut QMONTH #1 mL 03/08/23 subcutaneous pen injector (Emgality Pen) ondansetron 4 mg disintegrating 4 mg PO Q8H PRN #10 tabs 11/30/23 tablet Allergies Allergy/AdvReac Type Severity Reaction Status Date / Time buspirone Allergy Other (See Verified 02/17/24 09:36 Comment) paliperidone Allergy Other (See Verified 02/17/24 09:36 Comment) paroxetine HCl [From Paxil] Allergy Other (See Verified 02/17/24 09:36 Comment) sertraline Allergy Other (See Verified 02/17/24 09:36 Comment) ziprasidone [From Geodon] Allergy Other (See Verified 02/17/24 09:36 Comment) aripiprazole [From Abilify] AdvReac Intermediate INVOLUNTARY Verified 02/17/24 09:36 MUSCLE MOVEMENTS divalproex sodium AdvReac Intermediate INVOLUNTARY Verified 02/17/24 09:36 [From Depakote] MUSCLE MOVEMENTS mirtazapine AdvReac Intermediate INVOLUNTARY Verified 02/17/24 09:36 MUSCLE MOVEMENTS risperidone AdvReac Intermediate INVOLUNTARY Verified 02/17/24 09:36 MUSCLE MOVEMENTS benztropine mesylate AdvReac elevated Verified 02/17/24 09:36 [From Cogentin] blood sugars enviornmental Allergy Mild Wheezing Uncoded 02/17/24 09:36 General Stated Complaint: Chest Pain CARLOS: 3 Review of Systems Constitutional Constitutional: Denies fever(s) Cardiovascular Cardiovascular: Reports as per HPI Exam Const General: cooperative and no acute distress [facility] Mouth: moist mucous membranes Eyes Conjunctivae: normal conjunctivae Sclera: normal sclerae Neck Neck: trachea midline and supple Resp Auscultation: clear to auscultation bilaterally, no rales, no rhonchi and no wheezes Cardio Rate: regular rate and not tachycardic Rhythm: regular rhythm GI Palpation: soft, not firm, no guarding, no masses, not rigid and nontender Skin General skin exam: no rashes or lesions noted Neuro General: patient alert, patient awake, patient oriented x3 and tone normal Extrem General: no calf tenderness and no edema Psych Appearance: grossly normal Mental Status: mental status grossly normal Course Vital Signs Vital signs: Vital Signs Temperature 35.6 C L 03/06/24 08:15 Pulse 62 03/06/24 08:15 Respiratory Rate 16 03/06/24 08:15 Blood Pressure 160/64 H 03/06/24 08:15 Pulse Oximetry 99 03/06/24 08:15 Temperature 35.6 C L 03/06/24 08:15 Temperature Source Temporal Artery Scan 03/06/24 08:15 Pulse 62 03/06/24 08:15 Respiratory Rate 16 03/06/24 08:23 Respiratory Effort Normal, Non-Labored 03/06/24 08:23 Respiratory Depth Normal 03/06/24 08:23 Blood Pressure 160/64 H 03/06/24 08:15 Pulse Oximetry 99 03/06/24 08:15 Lab/Test Results Lab/Test Results: Laboratory Tests Range/Units 03/06/24 09:10 WBC (4.4-10.8) 10^3/uL 5.13 RBC (4.36-5.78) 10^6/uL 3.49 L Hgb (13.5-17.5) g/dL 11.2 L Hct (40.0-50.0) % 32.9 L MCV (80-95) fL 94 MCH (27.0-33.0) pg 32.1 MCHC (32.0-36.0) % 34.0 RDW (11.8-14.1) % 12.4 Plt Count (130-400) 10^3/uL 106 L MPV (8.0-11.0) fL 8.9 Immature Gran % % 0.6 Neutrophils % % 50.5 Lymphocytes % % 34.5 Monocytes % % 9.7 Eosinophils % % 4.3 Basophils % % 0.4 Nucleated RBC % (0.0-0.3) % 0.0 Absolute Neutrophils (1.2-6.7) 10^3/uL 2.59 Absolute Lymphocytes (1.2-3.4) 10^3/uL 1.77 Absolute Monocytes (0.1-0.8) 10^3/uL 0.50 Absolute Eosinophils (0.0-0.7) 10^3/uL 0.22 Absolute Basophils (0.0-0.2) 10^3/uL 0.02 Medical Decision Making 930 --58-year-old male with multiple medical problems including hypertension, diabetes, hypercholesterolemia, anxiety, here with chest discomfort that is reproducible on palpation and with deep inspiration. Patient is saturating well in no respiratory distress. No leg swelling or calf tenderness. Patient was seen here recently with similar complaint and had negative workup. EKG was reviewed and interpreted by me, please see report, sinus rhythm 64 bpm, normal axis, nondiagnostic. Plan to check D-dimer and troponin. 1155 --chest x-ray reviewed and interpreted by radiology: Limited study, no acute findings noted. Age-adjusted D-dimer normal. Initial troponin and delta troponin normal. Suspect musculoskeletal etiology with likely component of anxiety. All results were discussed with the patient. Plan for discharge with outpatient follow-up with PCP. Disposition decision was made weighing the risks and benefits of hospitalization versus outpatient treatment, the risk for further decompensation, and the patient's wishes. The patient was stable and requested discharge. Prior to discharge, my usual and customary return precautions were reviewed with the patient - this included follow-up instructions and reason to return to the emergency department if condition worsens, does not improve as expected, or other new concerns arise. Lab Data Lab results reviewed: Yes I reviewed the patient's lab results. Labs: Laboratory Tests Range/Units 03/06/24 03/06/24 09:10 10:55 WBC (4.4-10.8) 10^3/uL 5.13 RBC (4.36-5.78) 10^6/uL 3.49 L Hgb (13.5-17.5) g/dL 11.2 L Hct (40.0-50.0) % 32.9 L MCV (80-95) fL 94 MCH (27.0-33.0) pg 32.1 MCHC (32.0-36.0) % 34.0 RDW (11.8-14.1) % 12.4 Plt Count (130-400) 10^3/uL 106 L MPV (8.0-11.0) fL 8.9 Immature Gran % % 0.6 Neutrophils % % 50.5 Lymphocytes % % 34.5 Monocytes % % 9.7 Eosinophils % % 4.3 Basophils % % 0.4 Nucleated RBC % (0.0-0.3) % 0.0 Absolute Neutrophils (1.2-6.7) 10^3/uL 2.59 Absolute Lymphocytes (1.2-3.4) 10^3/uL 1.77 Absolute Monocytes (0.1-0.8) 10^3/uL 0.50 Absolute Eosinophils (0.0-0.7) 10^3/uL 0.22 Absolute Basophils (0.0-0.2) 10^3/uL 0.02 D-Dimer (<500) ng/mlFEU 546 H Sodium (136-145) mmol/L 134 L Potassium (3.5-5.1) mmol/L 4.0 Chloride (98-107) mmol/L 98 Carbon Dioxide (21.0-32.0) mmol/L 30.0 Anion Gap (3-11) mmol/L 6.0 BUN (7-18) mg/dL 11 Creatinine (0.70-1.30) mg/dL 0.8 Est GFR (CKD-EPI 2020) (mL/min/1.73m2) 102.58 Glucose (74-106) mg/dL 142 H Calcium (8.5-10.1) mg/dL 8.4 L Total Bilirubin (0.2-1.0) mg/dL 0.4 AST (15-37) U/L 11 L ALT (16-63) U/L 18 Alkaline Phosphatase (46-116) U/L 52 Troponin I (< or =60) ng/L < 50 < 50 Total Protein (6.4-8.2) g/dL 7.6 Albumin (3.4-5.0) g/dL 3.2 L Quality:SDOH Health Related Social Needs: Health related social needs food insecurity PFSH All Active Problems (Updated 03/06/24 @ 12:01 by Liang Ng MD) Chest pain (Acute) Anxiety (Chronic) Dental caries (Acute) Nicotine dependence (Acute) Dyspnea on exertion (Acute) Shortness of breath (Acute) Hypercholesterolemia (Chronic 09/07/14) pt insists on lipitor 80 mg due to family hx Depression (Acute 10/02/14) Left-sided chest wall pain (Acute) Chest pain (Acute) Chronic headache (Acute) Migraine headache without aura (Acute) Migraine (Chronic) Poor dentition (Acute) Tobacco use disorder (Chronic) started 2013 1.5 ppd, pipe 1-7/week, QUIT LATE OCT 2021 Allergic rhinitis (Chronic) lortadine Hiatal hernia (Chronic) protonix not effective, nexium works better 02/12/18 Anemia (Chronic) Broken teeth (Chronic) Drug-seeking behavior (Chronic ~09/20/21) Requests Ritalin from providers Medication overuse headache (Acute) Medical History Obesity BMI 52 Hypertension pt requests brand name Tenormin vs atenolol 04/02/18 GERD (gastroesophageal reflux disease) (09/07/14) Diabetes mellitus type 2 in obese (09/09/14) Hypothyroidism (acquired) (09/07/14) Schizoaffective disorder (09/07/14) FREDDIE Thakkar 09/2014- [facility] inpatient Trigeminal neuralgia Anxiety Mitral valve prolapse Hyperlipidemia Peripheral neuropathy Surgical History No significant past surgical history Family History Father Heart disease [place] Social History Smoking/Tobacco Use Status: Former Tobacco Use Smoking risk assessment performed?: Yes Alcohol Intake: never Drug use: Never Substance use type: does not use Adopted: No Caregiver/Support person: No Foster care: No Household members: none Housing: apartment Number of Children: 2 number of grandchildren: 1 Communication Needs: Corrective Lenses Education Level: college Do you need help understanding health information?: Always current occupation: Unemployed/Leave of absence Sexually active: No Do you think of yourself as: Decline to provide Current gender identity: male What type of physical activity do you participate in: other Details: weight lifting Frequency: 3-4 times per week Magalie/Hindu: Holiness Seatbelt use: always Drive 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
[2024-03-06 09:42] LABS: ALT 18 U/L (16-63); AST 11 U/L (15-37); Albumin 3.2 g/dL (3.4-5.0); Alkaline Phosphatase 52 U/L (46-116); BUN 11 mg/dL (7-18); Bilirubin, Total 0.4 mg/dL (0.2-1.0); CREATININE 0.8 mg/dL (0.70-1.30); Calcium 8.4 mg/dL (8.5-10.1); Chloride 98 mmol/L (98-107); Estimated GFR 102.58 (mL/min/1.73m2); Glucose 142 mg/dL (74-106); Sodium 134 mmol/L (136-145); Total Protein 7.6 g/dL (6.4-8.2); Troponin I < 50 ng/L (< or =60)
[2024-03-06 09:56] LABS: D-Dimer 546 ng/mlFEU (<500)
[2024-03-06] MEDS: Ondansetron O.D.T. 4 MG TABEF PO (10:20)
--- NOTE | 2024-03-06 10:43 | DI.RAD_ITS ---
Exam(s) XR PORTABLE CHEST AP EXAM: XR PORTABLE CHEST AP CLINICAL HISTORY: chest pain left TECHNIQUE: 2D digital imaging was performed. COMPARISON: No exams were available for comparison FINDINGS: Exam extremely limited by under penetration. There is significant image graininess. LUNGS: Grossly clear where visualized. No pleural abnormality seen. HEART: Normal size. AORTA: Normal diameter. BONES: Spine mostly obscured. Soft tissues: Unremarkable. IMPRESSION: Extremely limited exam. No acute findings. DATA REPOSITORY: RADIATION DOSE DELIVERED:
[2024-03-06 11:45] LABS: Troponin I < 50 ng/L (< or =60)
== END 2024-03-06 12:14 | disposition home or self-care (01) ==
PROVIDERS: Emergency Provider Student in an Organized Health Care Education/Training Program; PCP Family Medicine
DX: R07.9 Chest pain, unspecified (principal); I10 Essential (primary) hypertension; E78.5 Hyperlipidemia, unspecified; E11.9 Type 2 diabetes mellitus without complications; F25.9 Schizoaffective disorder, unspecified; F41.9 Anxiety disorder, unspecified; Z79.899 Other long term (current) drug therapy; Z87.891 Personal history of nicotine dependence
CPT/HCPCS: 80053; 93005; 99285; 71045; 84484; 85025; 85379; 93010; 99284

== ENCOUNTER 2024-03-08 00:34 | Emergency (ER) | payer MEDICAID, SELFPAY ==
[2024-03-08] VITALS (24 sets, daily range): BP systolic 127; BP diastolic 63; PULSE 61–71; RESP 11–24; TEMP 36.5; O2SAT 93–98
--- NOTE | 2024-03-08 00:30 | RT.EKG_ITS ---
APPROVED REPORT Exam: Resting ECG Reason for Exam: chest pain Patient Location: E HR:67 bpm ECG Measurements Heart Rate 67 AXIS NV 196 P 33 QRSd 95 QRS 14 QT 413 T 91 QTc 437 Conclusion Sinus rhythm...normal P axis, V-rate 60- 99 Probable lateral infarct, old...Q>35mS, abnormal ST-T, V5-[address] segment or T wave abnormalities to suggest occlusive NV
--- NOTE | 2024-03-08 00:45 | DI.RAD_ITS ---
Exam(s) XR CHEST 2V PA LATERAL EXAM: XR CHEST 2V PA LATERAL CLINICAL HISTORY: chest pain TECHNIQUE: 2D digital imaging was performed. Two views. COMPARISON: CR XR PORTABLE CHEST AP from 03/06/2024 FINDINGS: Both views limited by under penetration. HEART: Normal size. Aorta: Not dilated. PULMONARY VASCULATURE: Normal. LUNGS: Clear. PLEURAL SPACE: No pleural effusion or pneumothorax. BONE:Unremarkable for age. Soft tissues: Unremarkable. IMPRESSION: No acute abnormality. DATA REPOSITORY: RADIATION DOSE DELIVERED:
[2024-03-08 01:04] LABS: Abs Immature Grans 0.03 10^3/uL (0.0-0.06); Absolute Basophil Count 0.03 10^3/uL (0.0-0.2); Absolute Eosinophil Count 0.22 10^3/uL (0.0-0.7); Absolute Lymphocyte Count 1.54 10^3/uL (1.2-3.4); Absolute Monocyte Count 0.71 10^3/uL (0.1-0.8); Basophils % 0.5 %; Eosinophils % 3.4 %; HCT 30.2 % (40.0-50.0); HGB 10.5 g/dL (13.5-17.5); Immature Grans % 0.5 %; MCH 31.8 pg (27.0-33.0); MCHC 34.8 % (32.0-36.0); MCV 92 fL (80-95); MPV 9.2 fL (8.0-11.0); Neutrophils % 60.6 %; Platelet Count 120 10^3/uL (130-400); RDW 12.1 % (11.8-14.1); RDW-SD 40.6 fL; WBC 6.43 10^3/uL (4.4-10.8)
[2024-03-08 01:29] LABS: ALT 17 U/L (16-63); AST 9 U/L (15-37); Alkaline Phosphatase 53 U/L (46-116); Anion Gap 5.6 mmol/L (3-11); BUN 7 mg/dL (7-18); Bilirubin, Total 0.4 mg/dL (0.2-1.0); CO2 28.4 mmol/L (21.0-32.0); CREATININE 0.8 mg/dL (0.70-1.30); Calcium 8.1 mg/dL (8.5-10.1); Chloride 95 mmol/L (98-107); Estimated GFR 101.95 (mL/min/1.73m2); Glucose 156 mg/dL (74-106); Magnesium 1.4 mg/dL (1.8-2.4); NT-proBNP 382 pg/mL (<300); Potassium 4.4 mmol/L (3.5-5.1); Sodium 129 mmol/L (136-145); Total Protein 7.1 g/dL (6.4-8.2); Troponin I < 50 ng/L (< or =60)
--- NOTE | 2024-03-08 01:51 | ED.GENADUL_ITS ---
Discharge Plan Disposition Patient Disposition: Home Condition: Good Discharge Details Clinical Impression: Anxiety Primary Care Provider: Brandon Foster ED Provider: Sparkle Slater Home Meds and New Rx's Prescriptions: Continued Emgality Pen 120 mg/mL pen injector 120 mg subcut QMONTH Qty: 1 11RF gabapentin 300 mg capsule 300 mg PO QID Claritin Liqui-Gel 10 MG capsule 1 cap PO DAILY Qty: 90 multivitamin Tablet 1 tab PO DAILY metformin 500 mg tablet 1 tab PO BID clonazepam 0.5 mg tablet See Rx Instructions .ROUTE .COMPLEX Rx Instructions: 1 tab in AM, 1 tab at Noon and 2 tab QHS ondansetron 4 mg tablet,disintegrating 4 mg PO Q8H PRNQty: 10 0RF triamcinolone acetonide 0.1 % ointment 1 applic TOPICAL BID Patient Comments: Apply 1 a small amount to skin twice a day as needed as directed simvastatin 80 mg tablet 80 mg PO DAILY Patient Comments: Take 1 tablet by mouth once a day benztropine 0.5 MG tablet 0.5 mg PO BID aspirin,buffd-calcium carb-mag 325 MG tablet 325 mg PO DAILY lactulose 10 gram/15 mL solution 20 g PO DIRECTED PRN Patient Comments: TAKE ONE TO TWO TABLESPOONS BY MOUTH NEEDED WHEN 3 DAYS PASS WITHOUT BOWEL MOVEMENT albuterol sulfate 90 mcg/actuation aerosol powdr breath activated 2 inh IH Q6H PRN (Reason: shortness of breath or wheezing) Qty: 1 0RF simvastatin 40 mg tablet 80 mg PO DAILY fluoxetine 40 mg capsule 80 mg PO DAILY atenolol 25 mg tablet 75 mg PO DAILY Patient Comments: Take 3 tablet by mouth once a day Invega Sustenna 117 mg/0.75 mL syringe 117 mg IM Q30D divalproex [Depakote ER] 500 mg tablet extended release 24 hr 1,000 mg PO BID omeprazole 40 mg capsule,delayed release(DR/EC) 40 mg PO DAILY Patient Comments: TAKE 1 CAPSULE BY MOUTH DAILY FOR HEARTBURN Discharge Instructions Instructions: Anxiety (ED) Additional Instructions: Follow your safety plan. Make sure you keep your check-ins with Sophy. Return to the emergency department for new or worsening symptoms. Referrals: Brandon Foster [Primary Care Provider] - [facility] General Mode of arrival: EMS . Date/Time Provider Initiated Documentation: 03/08/24 00:54 . Limitations to Documentation: no limitations . Information obtained by: patient . HPI Narrative: 59yo M with hx anxiety, depression, HTN, T2DM, obesity, HLD, MVP, presenting for anxiety. He reports that all afternoon he has felt anxious, tried deep breathing without improvement. Feels like he is short of breath and his chest is 'a little tight' for the past 4-5 hours. Tried home anxiety meds without improvement. Has had panic attacks in the past but this does not feel as bad as a panic attack, just 'anxious and can't get control of it'. Reports his klonopin dose was recently decreased. States he feels 'much better' since arriving to the ED, anxiety is now manageable, declines any medications. He is otherwise in his usual state of health with no fevers, chills, rash, abdominal pain, back pain, nasuea, vomiting, numbness, tingling, weakness, or other concerns. Related Data Home Medications Medication Instructions Recorded Confirmed loratadine 10 mg capsule (Claritin 1 cap PO DAILY #90 tabs 12/16/14 03/08/24 Liqui-Gel) aspirin,buffered (calcium 325 mg PO DAILY 11/18/16 03/08/24 carbonate-magnesium) 325 mg tablet benztropine 0.5 mg tablet 0.5 mg PO BID 11/18/16 03/08/24 lactulose 10 gram/15 mL oral 20 g PO DIRECTED PRN 10/03/20 03/08/24 solution albuterol sulfate 90 mcg/actuation 2 inh inhalation Q6H PRN shortness 12/15/20 03/08/24 breath activated powder inhaler of breath or wheezing #1 ea multivitamin 1 tab PO DAILY 01/26/21 03/08/24 metformin 500 mg tablet 1 tab PO BID 03/18/22 03/08/24 clonazepam 0.5 mg tablet See Rx Instructions .Route .COMPLEX 03/04/23 03/08/24 fluoxetine 40 mg capsule 80 mg PO DAILY 03/08/23 03/08/24 galcanezumab-gnlm 120 mg/mL 120 mg subcut QMONTH #1 mL 03/08/23 03/08/24 subcutaneous pen injector (Emgality Pen) gabapentin 300 mg capsule 300 mg PO QID 03/27/23 03/08/24 simvastatin 40 mg tablet 80 mg PO DAILY 03/27/23 03/08/24 ondansetron 4 mg disintegrating 4 mg PO Q8H PRN #10 tabs 11/30/23 03/08/24 tablet atenolol 25 mg tablet 75 mg PO DAILY 01/31/24 03/08/24 divalproex 500 mg tablet,extended 1,000 mg PO BID 01/31/24 03/08/24 release 24 hr (Depakote ER) omeprazole 40 mg capsule,delayed 40 mg PO DAILY 01/31/24 03/08/24 release paliperidone palmitate 117 mg/0.75 117 mg IM Q30D 01/31/24 03/08/24 mL intramuscular syringe (Vixloega SustBookBag) triamcinolone acetonide 0.1 % 1 applic topical BID 03/06/24 03/08/24 topical ointment simvastatin 80 mg tablet 80 mg PO DAILY 03/08/24 03/08/24 Previous Rx's Medication Instructions Recorded albuterol sulfate 90 mcg/actuation 2 inh inhalation Q6H PRN shortness 12/15/20 breath activated powder inhaler of breath or wheezing #1 ea galcanezumab-gnlm 120 mg/mL 120 mg subcut QMONTH #1 mL 03/08/23 subcutaneous pen injector (Emgality Pen) ondansetron 4 mg disintegrating 4 mg PO Q8H PRN #10 tabs 11/30/23 tablet Allergies Allergy/AdvReac Type Severity Reaction Status Date / Time buspirone Allergy Other (See Verified 02/17/24 09:36 Comment) paliperidone Allergy Other (See Verified 02/17/24 09:36 Comment) paroxetine HCl [From Paxil] Allergy Other (See Verified 02/17/24 09:36 Comment) sertraline Allergy Other (See Verified 02/17/24 09:36 Comment) ziprasidone [From Geodon] Allergy Other (See Verified 02/17/24 09:36 Comment) aripiprazole [From Abilify] AdvReac Intermediate INVOLUNTARY Verified 02/17/24 09:36 MUSCLE MOVEMENTS mirtazapine AdvReac Intermediate INVOLUNTARY Verified 02/17/24 09:36 MUSCLE MOVEMENTS risperidone AdvReac Intermediate INVOLUNTARY Verified 02/17/24 09:36 MUSCLE MOVEMENTS enviornmental Allergy Mild Wheezing Uncoded 02/17/24 09:36 General Stated Complaint: Chest Pain CARLOS: 2 Review of Systems Narrative: see HPI Exam Narrative Exam Narrative: General: Alert, obese, in no acute distress. Head: Normocephalic, atraumatic Neck: Trachea midline, ?Neck supple. ENT: ?MMM.? Cardiac: ?RRR, no murmurs appreciated Resp: No respiratory distress. CTAB. Abd: ?Soft, non-distended, nontender : ?No suprapubic tenderness. Extremities: ?No deformities.? No peripheral edema. Neurologic: GCS 15. ? Moves all extremities freely against gravity Psych: Calm, cooperative.?? Mood okay, affect congruent.? Speech with normal volume, rate, rythym and tone. Linear and goal directed.? Denies SI/HI/AH/VH. ? Does not appear to be responding to internal stimuli. Course Vital Signs Vital signs: Vital Signs Temperature 36.5 C 03/08/24 00:35 Pulse 68 03/08/24 00:35 Respiratory Rate 22 03/08/24 00:35 Blood Pressure 127/63 03/08/24 00:35 Pulse Oximetry 95 03/08/24 00:35 Temperature 36.5 C 03/08/24 00:35 Temperature Source Temporal Artery Scan 03/08/24 00:35 Pulse 67 03/08/24 01:00 Pulse 69 03/08/24 00:50 Respiratory Rate 14 03/08/24 01:00 Respiratory Effort Normal 03/08/24 01:10 Respiratory Depth Normal 03/08/24 01:10 Respiratory Pattern Normal 03/08/24 01:10 Blood Pressure 127/63 03/08/24 01:00 Blood Pressure Mean 82 03/08/24 00:40 Blood Pressure Position Sitting 03/08/24 00:35 Pulse Oximetry 97 03/08/24 01:00 Oxygen Delivery Method Room Air 03/08/24 01:00 Oxygen Flow Rate 0 03/08/24 01:00 Pain Level 7 03/08/24 01:00 Lab/Test Results Lab/Test Results: Laboratory Tests Range/Units 03/08/24 00:56 WBC (4.4-10.8) 10^3/uL 6.43 RBC (4.36-5.78) 10^6/uL 3.30 L Hgb (13.5-17.5) g/dL 10.5 L Hct (40.0-50.0) % 30.2 L MCV (80-95) fL 92 MCH (27.0-33.0) pg 31.8 MCHC (32.0-36.0) % 34.8 RDW (11.8-14.1) % 12.1 Plt Count (130-400) 10^3/uL 120 L MPV (8.0-11.0) fL 9.2 Immature Gran % % 0.5 Neutrophils % % 60.6 Lymphocytes % % 24.0 Monocytes % % 11.0 Eosinophils % % 3.4 Basophils % % 0.5 Nucleated RBC % (0.0-0.3) % 0.0 Absolute Neutrophils (1.2-6.7) 10^3/uL 3.90 Absolute Lymphocytes (1.2-3.4) 10^3/uL 1.54 Absolute Monocytes (0.1-0.8) 10^3/uL 0.71 Absolute Eosinophils (0.0-0.7) 10^3/uL 0.22 Absolute Basophils (0.0-0.2) 10^3/uL 0.03 Sodium (136-145) mmol/L 129 L Potassium (3.5-5.1) mmol/L 4.4 Chloride (98-107) mmol/L 95 L Carbon Dioxide (21.0-32.0) mmol/L 28.4 Anion Gap (3-11) mmol/L 5.6 BUN (7-18) mg/dL 7 Creatinine (0.70-1.30) mg/dL 0.8 Est GFR (CKD-EPI 2020) (mL/min/1.73m2) 101.95 Glucose (74-106) mg/dL 156 H Calcium (8.5-10.1) mg/dL 8.1 L Magnesium (1.8-2.4) mg/dL 1.4 L Total Bilirubin (0.2-1.0) mg/dL 0.4 AST (15-37) U/L 9 L ALT (16-63) U/L 17 Alkaline Phosphatase (46-116) U/L 53 Troponin I (< or =60) ng/L < 50 NT-Pro-B Natriuret Pep (<300) pg/mL 382 H Total Protein (6.4-8.2) g/dL 7.1 Albumin (3.4-5.0) g/dL 3.0 L Medical Decision Making 59yo M with hx anxiety, depression, HTN, T2DM, obesity, HLD, MVP, presenting for anxiety. He reports that all afternoon he has felt anxious, tried deep breathing without improvement; for 4-5 hours has felt short of breath with some chest tightness. Symptoms resolved upon arrival to the ED. Vital signs and physical exam reassuring on arrival, lungs clear, pulse regular. EKG with no ST segment or T wave abnormalities to suggest occlusive HI, no significant changes from prior. CXR independently reviewed, no focal pneumonia or pneumothorax on my view, agree with radiology read below. Labs reviewed as below, overall at patient baseline. CBC with mild anemia at 10.5 (baseline) and thrombocytopenia plt 120 (also chronic), CMP with chronic hyponatremia Na of 129 (ranges from 127-134 from November of this year to now) as well as hypocalcemia (8.1) and hypomagnesium (1.4). Oral calcium and mag replacement ordered. BNP reassuring at 381, tends to be in 400's on [facility] record review, troponin negative (would not further pursue ACS in the setting > 3 hours of symptoms). I offered to discharge him home; he requests to speak with someone from [facility], feels he may benefit from inpatient psychiatric treatment. [facility] evaluated patient; safety plan made and will check in with patient tomorrow. Discharged home; discharge instructions and return precautions were reviewed with patient who verbalized understanding. All questions were answered and he is in full agreement with the plan. Medical Records Medical records reviewed: Yes I reviewed the patient's medical records. Imaging Data Radiologic Study: Imaging: X-Ray Radiologist's impression: IMPRESSION: No definite acute cardiopulmonary disease Lab Data Lab results reviewed: Yes I reviewed the patient's lab results. Labs: Laboratory Tests Range/Units 03/08/24 00:56 WBC (4.4-10.8) 10^3/uL 6.43 RBC (4.36-5.78) 10^6/uL 3.30 L Hgb (13.5-17.5) g/dL 10.5 L Hct (40.0-50.0) % 30.2 L MCV (80-95) fL 92 MCH (27.0-33.0) pg 31.8 MCHC (32.0-36.0) % 34.8 RDW (11.8-14.1) % 12.1 Plt Count (130-400) 10^3/uL 120 L MPV (8.0-11.0) fL 9.2 Immature Gran % % 0.5 Neutrophils % % 60.6 Lymphocytes % % 24.0 Monocytes % % 11.0 Eosinophils % % 3.4 Basophils % % 0.5 Nucleated RBC % (0.0-0.3) % 0.0 Absolute Neutrophils (1.2-6.7) 10^3/uL 3.90 Absolute Lymphocytes (1.2-3.4) 10^3/uL 1.54 Absolute Monocytes (0.1-0.8) 10^3/uL 0.71 Absolute Eosinophils (0.0-0.7) 10^3/uL 0.22 Absolute Basophils (0.0-0.2) 10^3/uL 0.03 Sodium (136-145) mmol/L 129 L Potassium (3.5-5.1) mmol/L 4.4 Chloride (98-107) mmol/L 95 L Carbon Dioxide (21.0-32.0) mmol/L 28.4 Anion Gap (3-11) mmol/L 5.6 BUN (7-18) mg/dL 7 Creatinine (0.70-1.30) mg/dL 0.8 Est GFR (CKD-EPI 2020) (mL/min/1.73m2) 101.95 Glucose (74-106) mg/dL 156 H Calcium (8.5-10.1) mg/dL 8.1 L Magnesium (1.8-2.4) mg/dL 1.4 L Total Bilirubin (0.2-1.0) mg/dL 0.4 AST (15-37) U/L 9 L ALT (16-63) U/L 17 Alkaline Phosphatase (46-116) U/L 53 Troponin I (< or =60) ng/L < 50 NT-Pro-B Natriuret Pep (<300) pg/mL 382 H Total Protein (6.4-8.2) g/dL 7.1 Albumin (3.4-5.0) g/dL 3.0 L Quality:SDOH Health Related Social Needs: Health related social needs food insecurity PFSH All Active Problems (Updated 03/08/24 @ 03:59 by Sparkle Slater MD) Anxiety (Chronic) Chest pain (Acute) Anxiety (Chronic) Dental caries (Acute) Nicotine dependence (Acute) Dyspnea on exertion (Acute) Shortness of breath (Acute) Hypercholesterolemia (Chronic 09/07/14) pt insists on lipitor 80 mg due to family hx Depression (Acute 10/02/14) Left-sided chest wall pain (Acute) Chest pain (Acute) Chronic headache (Acute) Migraine headache without aura (Acute) Migraine (Chronic) Poor dentition (Acute) Tobacco use disorder (Chronic) started 2013 1.5 ppd, pipe 1-7/week, QUIT LATE OCT 2021 Allergic rhinitis (Chronic) lortadine Hiatal hernia (Chronic) protonix not effective, nexium works better 02/12/18 Anemia (Chronic) Broken teeth (Chronic) Drug-seeking behavior (Chronic ~09/20/21) Requests Ritalin from providers Medication overuse headache (Acute) Medical History Obesity BMI 52 Hypertension pt requests brand name Tenormin vs atenolol 04/02/18 GERD (gastroesophageal reflux disease) (09/07/14) Diabetes mellitus type 2 in obese (09/09/14) Hypothyroidism (acquired) (09/07/14) Schizoaffective disorder (09/07/14) FREDDIE Thakkar 09/2014- [facility] inpatient Trigeminal neuralgia Anxiety Mitral valve prolapse Hyperlipidemia Peripheral neuropathy Surgical History No significant past surgical history Family History Father Heart disease HI Social History Smoking/Tobacco Use Status: Former Tobacco Use Smoking risk assessment performed?: Yes Alcohol Intake: never Drug use: Never Substance use type: does not use Adopted: No Caregiver/Support person: No Foster care: No Household members: none Housing: apartment Number of Children: 2 number of grandchildren: 1 Communication Needs: Corrective Lenses Education Level: college Do you need help understanding health information?: Always current occupation: Unemployed/Leave of absence Sexually active: No Do you think of yourself as: Decline to provide Current gender identity: male What type of physical activity do you participate in: other Details: weight lifting Frequency: 3-4 times per week Magalie/Religious: Yazidism Seatbelt use: always Drive intox or ride w/intox 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
--- NOTE | 2024-03-08 02:13 | DI.VRAD_ITS ---
PROCEDURE INFORMATION: Exam: XR Chest Exam date and time: 03/08/2024 1:23 AM Age: 59 years old Clinical indication: Chest wall pain; Additional info: Chest pain TECHNIQUE: Imaging protocol: Radiologic exam of the chest. Views: 2 views. COMPARISON: CR XR PORTABLE CHEST AP 03/06/2024 10:35 AM FINDINGS: Tubes, catheters and devices: Leads overlying chest. Lungs: No consolidation. Pleural spaces: No significant pleural effusion. No pneumothorax. Heart/Mediastinum: No cardiomegaly. Bones/joints: No displaced fracture. Soft tissues: Unremarkable. IMPRESSION: No definite acute cardiopulmonary disease. Dictated and Authenticated by: Landon Haque MD. Ordering:ARNOLD Villagran MD
[2024-03-08] MEDS: LORazepam 1 MG TAB PO (03:28)
[2024-03-08] MEDS: Magnesium Gluconate 500 MG TAB PO (03:28)
[2024-03-08] MEDS: Calcium Carbonate 1.5 GM TAB PO (03:28)
--- NOTE | 2024-03-08 04:22 | NUR.NOTE ---
BARRY, RN: safety plan given to pt w/ discharge paperwork Nursing Note:
--- NOTE | 2024-03-08 11:24 | PDOC.MHCN_ITS ---
Date of service: 03/08/24 Time of Service: 11:24 PHQ-9 Over the last 2 weeks, how often have you been bothered by any of the following problems? 1. Little interest or pleasure in doing things: several days 2. Feeling down, depressed, or hopeless: several days 3. Trouble falling or staying asleep, or sleeping too much: more than half the days 4. Feeling tired or having little energy: nearly every day 5. Poor appetite or overeating: nearly every day 6. Feeling bad about yourself - or that you are a failure or have let yourself and your family down: more than half the days 7. Trouble concentrating on things, such as reading the newspaper or watching television: several days 8. Moving or speaking so slowly that other people could have noticed? - Or the opposite - being so fidgety or restless that you have been moving around a lot more than usual: more than half the days 9. Thoughts that you would be better off or of hurting yourself in some way: not at all Total score: 15 If you checked off any problems, how difficult have these problems made it for you to do your work, take care of things at home, or get along with other people?: very difficult Source: Developed by Drs. Dariel Belle, Alina Cisneros, Michael Mai and colleagues, with an educational missy from [employer]. 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 He has been hospitalized at [facility] most recently around [place] and ' this last year. He reports that he's had approximately 20 hospitalizations since 2019. Duy ent was last seen on March 03. He has been moderately appropriate with making appointments but has missed a few. The client presented to [facility] about 1230 this morning due to complaints of chest pain. He has been medically cleared and wished to speak to somebody about his want to go back to [facility]. 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 Well Housed: Yes Non Suicidal Self Injury Current: No History: No Safety Risk/Harm to Self or Others Current Ideation to Harm Self or Others: No Risk: Does risk to harm exist?: No Risk: Low Risk Duty to warn indicated: No Asssessment/Mental Status Appearance: Disheveled Attitude: Cooperative Behavior: Unremarkable Speech: Normal Affect: Flat Mood: Anxious Thought process: Goal directed Hallucinations: No Delusions: No Attention: Unremarkable Perception: Not impaired Orientation: Fully orientated Memory: Intact Insight: Poor Judgement: Poor Neurovegetative Symptoms Sleep: No change Appetitie: No change Interests: No change Energy: No change Libido: Not applicable Substance Use: Do you use nicotine?: No Have you used substances in the last 7 days?: No Additional Issues: Assaultive/Threatening Behavior: No Medical Concerns: No Client engaged in active self harm w/weapon: No Threatening to run away: No Child reported abuse/neglect: No Voluntarily presenting for services: Yes Domestic violence is a concern: No Extreme Psychosis or extreme behavior is present: Yes Impression Per report of the client he has no previous attempts to by suicide. Client engaged it all screening tools, including the CSRS, which was negative. Because of this and this clinician not being CAMS trained, no other resources were required at this time. This clinician had a conversation with client about how he does not meet criteria for inpatient hospitalization. The client is a 59-year-old, single, male who lives independently in [place], [place]. The client uses he/him pronouns and identifies as male. All underrepresented categories were honored during this assessment. The client reported that he was having chest pains and that he thinks that this is because his provider at [facility] Doc has been decreasing his Clonazepam. Client states I object to it. He is scheduled to follow-up with Doc on April 04 and was last seen 2 to 3 weeks ago per his report. The client presents lying in bed with a hospital gown on. He makes good eye contact and is alert and oriented across all spheres. He stated he wants to be in a hospital for oh about a month or so. It was explained that this is not a thing that happens and is counter intuitive to his treatment. It appears that the client frequents the hospital likely because he is lonely. Part of this loneliness could be because he sleeps all day and is up all night and that is not how many others schedule their wake and sleep times. While assessing the client a nurse brought in a lorazepam and this too could be a reason for him to be frequenting the ED and gives him the extra that he had asked for by his med provider at [facility] that was declined and educated on the cons equences of prolonged use. Resources Reosurces reviewed and given:: [id number] Plan/Disposition Recommended Disposition: [facility] Services [facility] Services: MEDICAL BILLING COORDINATOR, MEDICAL BILLING COORDINATOR and Therapy. Plan: This clinician consulted with Dr. Slater about the lorazepam that was given and explained that per the client's report he is being tapered down and therefore may be counter intuitive moving forward and could also be a reason for him to continue misusing the ED and so advised to be cautious about doing this. Person reported agreement to plan: Yes Reports/communication Outcome discussed with: ED/Personnel
== END 2024-03-08 04:10 | disposition home or self-care (01) ==
PROVIDERS: Emergency Provider Student in an Organized Health Care Education/Training Program; PCP Family Medicine
DX: F41.9 Anxiety disorder, unspecified (principal); E87.1 Hypo-osmolality and hyponatremia; E83.42 Hypomagnesemia; F32.A Depression, unspecified; I10 Essential (primary) hypertension; E11.9 Type 2 diabetes mellitus without complications; E78.5 Hyperlipidemia, unspecified; Z79.84 Long term (current) use of oral hypoglycemic drugs; Z79.85 Long-term (current) use of injectable non-insulin antidiabetic drugs; Z87.891 Personal history of nicotine dependence
CPT/HCPCS: 00123; 80053; 93005; 96127; 99285; 71046; 83735; 83880; 84484; 85025; 93010; 99284

== ENCOUNTER 2024-03-14 02:26 | Emergency (ER) | payer MEDICAID, SELFPAY ==
[2024-03-14] VITALS (19 sets, daily range): BP systolic 132–171; BP diastolic 55–72; PULSE 67–76; RESP 14–20; TEMP 36.1; O2SAT 93–98
--- NOTE | 2024-03-14 02:15 | RT.EKG_ITS ---
APPROVED REPORT Exam: Resting ECG Reason for Exam: chest pain Patient Location: E HR:72 bpm ECG Measurements Heart Rate 72 AXIS PA 184 P 45 QRSd 99 QRS 25 QT 408 T 73 QTc 447 Conclusion Sinus rhythm...normal P axis, V-rate 60- 99 Physician: no stemi
--- NOTE | 2024-03-14 02:30 | DI.RAD_ITS ---
Exam(s) XR PORTABLE CHEST AP EXAM: XR PORTABLE CHEST AP CLINICAL HISTORY: left sided chest pain TECHNIQUE: 2D digital imaging was performed. COMPARISON: No exams were available for comparison FINDINGS: LUNGS: Clear. No pleural abnormality seen. HEART: Normal size. AORTA: Normal diameter. BONES: Unremarkable for age. Soft tissues: Unremarkable. IMPRESSION: No acute findings. DATA REPOSITORY: RADIATION DOSE DELIVERED:
[2024-03-14] MEDS: LORazepam 2 MG/ML VIAL 0.5 MG IVP (02:48)
[2024-03-14 02:57] LABS: Abs Immature Grans 0.04 10^3/uL (0.0-0.06); Absolute Basophil Count 0.01 10^3/uL (0.0-0.2); Absolute Eosinophil Count 0.09 10^3/uL (0.0-0.7); Absolute Lymphocyte Count 1.61 10^3/uL (1.2-3.4); Absolute Monocyte Count 0.29 10^3/uL (0.1-0.8); Absolute Neutrophil Count 2.07 10^3/uL (1.2-6.7); Basophils % 0.2 %; Eosinophils % 2.2 %; HCT 31.1 % (40.0-50.0); HGB 10.9 g/dL (13.5-17.5); Lymphocytes % 39.2 %; MCH 32.4 pg (27.0-33.0); MCV 93 fL (80-95); MPV 8.9 fL (8.0-11.0); Monocytes % 7.1 %; Neutrophils % 50.3 %; Platelet Count 123 10^3/uL (130-400); RBC 3.36 10^6/uL (4.36-5.78); RDW 12.6 % (11.8-14.1); RDW-SD 42.8 fL; WBC 4.11 10^3/uL (4.4-10.8)
--- NOTE | 2024-03-14 03:20 | W.ED.GENAD ---
Discharge Plan Disposition Patient Disposition: Home Condition: Good Discharge Details Chief Complaint: Chest Pain Clinical Impression: Anxiety Primary Care Provider: Brandon Foster ED Provider: Froilan Iraheta Home Meds and New Rx's Prescriptions: No Action Emgality Pen 120 mg/mL pen injector 120 mg subcut QMONTH Qty: 1 11RF gabapentin 300 mg capsule 300 mg PO QID Claritin Liqui-Gel 10 MG capsule 1 cap PO DAILY Qty: 90 multivitamin Tablet 1 tab PO DAILY metformin 500 mg tablet 1 tab PO BID clonazepam 0.5 mg tablet See Rx Instructions .ROUTE .COMPLEX Rx Instructions: 1 tab in AM, 1 tab at Noon and 2 tab QHS ondansetron 4 mg tablet,disintegrating 4 mg PO Q8H PRNQty: 10 0RF triamcinolone acetonide 0.1 % ointment 1 applic TOPICAL BID Patient Comments: Apply 1 a small amount to skin twice a day as needed as directed simvastatin 80 mg tablet 80 mg PO DAILY Patient Comments: Take 1 tablet by mouth once a day benztropine 0.5 MG tablet 0.5 mg PO BID aspirin,buffd-calcium carb-mag 325 MG tablet 325 mg PO DAILY lactulose 10 gram/15 mL solution 20 g PO DIRECTED PRN Patient Comments: TAKE ONE TO TWO TABLESPOONS BY MOUTH NEEDED WHEN 3 DAYS PASS WITHOUT BOWEL MOVEMENT albuterol sulfate 90 mcg/actuation aerosol powdr breath activated 2 inh IH Q6H PRN (Reason: shortness of breath or wheezing) Qty: 1 0RF simvastatin 40 mg tablet 80 mg PO DAILY fluoxetine 40 mg capsule 80 mg PO DAILY atenolol 25 mg tablet 75 mg PO DAILY Patient Comments: Take 3 tablet by mouth once a day Invega Sustenna 117 mg/0.75 mL syringe 117 mg IM Q30D divalproex [Depakote ER] 500 mg tablet extended release 24 hr 1,000 mg PO BID omeprazole 40 mg capsule,delayed release(DR/EC) 40 mg PO DAILY Patient Comments: TAKE 1 CAPSULE BY MOUTH DAILY FOR HEARTBURN Discharge Instructions Additional Instructions: Your mental health advocate team will follow-up with you in the morning to further discuss potential nonemergent outpatient placement at [facility]. Your medical workup has returned stable. If you notice any worsening of your symptoms, or any new symptoms such as vomiting, diarrhea, fever, chills, shortness of breath, chest pain, numbness, weakness, or fainting , please return immediately to the emergency department for reevaluation. Please follow up with your primary care provider as soon as possible for reassessment and reevaluation. As always, it was a pleasure participating in your medical care today. Referrals: Brandon Foster [Primary Care Provider] - [facility] General Date/Time Provider Initiated Documentation: 03/14/24 03:20. HPI Narrative: This is a 59-year-old male with a past medical history of anxiety, depression, type 2 diabetes, high cholesterol, obesity, schizoaffective disorder, hypothyroidism, presents today for evaluation of anxiety. Patient states that this evening he felt a mild amount of chest wall tightness which she attributes to anxiety. Patient has frequently been evaluated for similar symptoms. He states that it began earlier this evening roughly 30 minutes before he called EMS. About an hour or 2 later he was eventually transported to the emergency department for further assessment. He denies any exertional dyspnea or exertional chest pain. He denies any cough fever or chills. When asking what his goals are tonight, he states that he would like to go to [facility]. He denies any homicidal or suicidal ideations. He states that he has been feeling anxious recently and this is why he wants to go to [place]. He did not take his nighttime medications until EMS arrived, at which point he also took his regular dose of clonazepam. No other complaints at this time. No other modifying factors. Related Data Home Medications Medication Instructions Recorded Confirmed loratadine 10 mg capsule (Claritin 1 cap PO DAILY #90 tabs 12/16/14 03/08/24 Liqui-Gel) aspirin,buffered (calcium 325 mg PO DAILY 11/18/16 03/08/24 carbonate-magnesium) 325 mg tablet benztropine 0.5 mg tablet 0.5 mg PO BID 11/18/16 03/08/24 lactulose 10 gram/15 mL oral 20 g PO DIRECTED PRN 10/03/20 03/08/24 solution albuterol sulfate 90 mcg/actuation 2 inh inhalation Q6H PRN shortness 12/15/20 03/08/24 breath activated powder inhaler of breath or wheezing #1 ea multivitamin 1 tab PO DAILY 01/26/21 03/08/24 metformin 500 mg tablet 1 tab PO BID 03/18/22 03/08/24 clonazepam 0.5 mg tablet See Rx Instructions .Route .COMPLEX 03/04/23 03/08/24 fluoxetine 40 mg capsule 80 mg PO DAILY 03/08/23 03/08/24 galcanezumab-gnlm 120 mg/mL 120 mg subcut QMONTH #1 mL 03/08/23 03/08/24 subcutaneous pen injector (Emgality Pen) gabapentin 300 mg capsule 300 mg PO QID 03/27/23 03/08/24 simvastatin 40 mg tablet 80 mg PO DAILY 03/27/23 03/08/24 ondansetron 4 mg disintegrating 4 mg PO Q8H PRN #10 tabs 11/30/23 03/08/24 tablet atenolol 25 mg tablet 75 mg PO DAILY 01/31/24 03/08/24 divalproex 500 mg tablet,extended 1,000 mg PO BID 01/31/24 03/08/24 release 24 hr (Depakote ER) omeprazole 40 mg capsule,delayed 40 mg PO DAILY 01/31/24 03/08/24 release paliperidone palmitate 117 mg/0.75 117 mg IM Q30D 01/31/24 03/08/24 mL intramuscular syringe (Invega SustCoveo) triamcinolone acetonide 0.1 % 1 applic topical BID 03/06/24 03/08/24 topical ointment simvastatin 80 mg tablet 80 mg PO DAILY 03/08/24 03/08/24 Previous Rx's Medication Instructions Recorded albuterol sulfate 90 mcg/actuation 2 inh inhalation Q6H PRN shortness 12/15/20 breath activated powder inhaler of breath or wheezing #1 ea galcanezumab-gnlm 120 mg/mL 120 mg subcut QMONTH #1 mL 03/08/23 subcutaneous pen injector (Emgality Pen) ondansetron 4 mg disintegrating 4 mg PO Q8H PRN #10 tabs 11/30/23 tablet Allergies Allergy/AdvReac Type Severity Reaction Status Date / Time buspirone Allergy Other (See Verified 02/17/24 09:36 Comment) paliperidone Allergy Other (See Verified 02/17/24 09:36 Comment) paroxetine HCl [From Paxil] Allergy Other (See Verified 02/17/24 09:36 Comment) sertraline Allergy Other (See Verified 02/17/24 09:36 Comment) ziprasidone [From Geodon] Allergy Other (See Verified 02/17/24 09:36 Comment) aripiprazole [From Abilify] AdvReac Intermediate INVOLUNTARY Verified 02/17/24 09:36 MUSCLE MOVEMENTS mirtazapine AdvReac Intermediate INVOLUNTARY Verified 02/17/24 09:36 MUSCLE MOVEMENTS risperidone AdvReac Intermediate INVOLUNTARY Verified 02/17/24 09:36 MUSCLE MOVEMENTS enviornmental Allergy Mild Wheezing Uncoded 02/17/24 09:36 General Stated Complaint: Chest Pain CARLOS: 3 Review of Systems All systems reviewed & are unremarkable except as noted in HPI and below Exam Narrative Exam Narrative: 1.Const: Well-nourished, Well-developed, appearing stated age 2.Eyes: PERRL, no conjunctival injection, and symmetrical lids. 3.ENT: Atraumatic external nose and ears. Moist MM. Neck: Symmetric, trachea midline, No thyromegaly. 4.CVS: +S1/S2, No murmurs or gallops. Peripheral pulses 2+ and equal in all extremities. Brisk capillary refill in all extremities. 5.RESP: Unlabored respiratory effort. Clear to auscultation bilaterally. No wheezes rales or rhonchi 6.GI: Soft, Nontender/Nondistended, No hepatosplenomegaly. No guarding or rebound. 7.MSK: Normocephalic/Atraumatic, Extremities w/o deformity or ttp No cyanosis or clubbing, Normal movement of all extremities 8.Skin: Warm, Dry. No rashes or lesions. 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 Sensation grossly intact, no focal neurologic deficits. 10.Psych: (AAO) x3. Appropriate mood and affect Course Vital Signs Vital signs: Vital Signs Temperature 36.1 C L 03/14/24 02:29 Pulse 76 03/14/24 02:29 Respiratory Rate 17 03/14/24 02:29 Blood Pressure 171/70 H 03/14/24 02:29 Pulse Oximetry 98 03/14/24 02:29 Temperature 36.1 C L 03/14/24 02:29 Temperature Source Tympanic 03/14/24 02:29 Pulse 70 03/14/24 03:17 Pulse 71 03/14/24 03:17 Respiratory Rate 16 03/14/24 03:17 Respiratory Effort Normal 03/14/24 02:32 Respiratory Depth Normal 03/14/24 02:32 Respiratory Pattern Normal 03/14/24 02:32 Blood Pressure 132/55 L 03/14/24 03:17 Blood Pressure Mean 81 03/14/24 03:17 Blood Pressure Position Sitting 03/14/24 02:29 Pulse Oximetry 95 03/14/24 03:17 Oxygen Delivery Method Room Air 03/14/24 02:29 Oxygen Flow Rate 0 03/14/24 02:29 Pain Level 7 03/14/24 02:32 Comment Pressure in chest, diffuse 05/14. Pt states feels like esophagus spasms. Ate dinner tonight. 30 minutes. 03/14/24 02:29 Lab/Test Results Lab/Test Results: Laboratory Tests Range/Units 03/14/24 02:49 WBC (4.4-10.8) 10^3/uL 4.11 L RBC (4.36-5.78) 10^6/uL 3.36 L Hgb (13.5-17.5) g/dL 10.9 L Hct (40.0-50.0) % 31.1 L MCV (80-95) fL 93 MCH (27.0-33.0) pg 32.4 MCHC (32.0-36.0) % 35.0 RDW (11.8-14.1) % 12.6 Plt Count (130-400) 10^3/uL 123 L MPV (8.0-11.0) fL 8.9 Immature Gran % % 1.0 Neutrophils % % 50.3 Lymphocytes % % 39.2 Monocytes % % 7.1 Eosinophils % % 2.2 Basophils % % 0.2 Nucleated RBC % (0.0-0.3) % 0.0 Absolute Neutrophils (1.2-6.7) 10^3/uL 2.07 Absolute Lymphocytes (1.2-3.4) 10^3/uL 1.61 Absolute Monocytes (0.1-0.8) 10^3/uL 0.29 Absolute Eosinophils (0.0-0.7) 10^3/uL 0.09 Absolute Basophils (0.0-0.2) 10^3/uL 0.01 Medical Decision Making This is a 59-year-old male with a past medical history of anxiety, depression, type 2 diabetes, high cholesterol, obesity, schizoaffective disorder, hypothyroidism, presents today for evaluation of anxiety. Patient states that this evening he felt a mild amount of chest wall tightness which she attributes to anxiety. Patient has frequently been evaluated for similar symptoms. He states that it began earlier this evening roughly 30 minutes before he called EMS. About an hour or 2 later he was eventually transported to the emergency department for further assessment. He denies any exertional dyspnea or exertional chest pain. He denies any cough fever or chills. When asking what his goals are tonight, he states that he would like to go to [facility]. He denies any homicidal or suicidal ideations. He states that he has been feeling anxious recently and this is why he wants to go to [place]. He did not take his nighttime medications until EMS arrived, at which point he also took his regular dose of clonazepam. No other complaints at this time. No other modifying factors. Exam demonstrates well-appearing male, no pitting edema, no wheezes or rales. EKG demonstrates normal sinus rhythm with no ST elevations or depressions. No evidence of STEMI. Symptoms appear clinically inconsistent with ACS or STEMI at this time. Suspect anxiety etiology especially taking into consideration his history. We will give small dose of Ativan, evaluate for a low likelihood of potential cardiac etiology, monitor closely and reassess. Of note patient did have a cardiac workup 5 days ago for similar symptoms. 4:11 AM Laboratory workup has returned, no significant white count. Hemoglobin at baseline. Troponin normal, patient's TSH is high, however free T4 is normal. EKG benign/stable. Patient feels well. Patient was medically cleared. Contacted mental health services, and after their evaluation patient did request to go to [facility]. They will start working on this on a nonemergent setting. Patient requested to be discharged to go home and sleep for the mental health team to follow-up with him in the morning, they agree with this plan. Patient is clinically stable, no signs of ACS. No homicidal or suicidal ideations. Patient stable for discharge. Diagnosis anxiety. I have extensively reviewed the treatment plan and discharge instructions with the patient. I have addressed all patient concerns at this time. The patient was made aware of what symptoms to monitor for that would warrant a return to the emergency department. Discussed the plan with the patient, they demonstrate verbal understanding and agreement with our assessment and plan at this time. The documentation in this chart was dictated using [employer] dictation software. Please excuse any dictation errors. Quality:SDOH Health Related Social Needs: Health related social needs food insecurity PFSH All Active Problems (Updated 03/14/24 @ 04:13 by Froilan Iraheta DO) Anxiety (Chronic) Anxiety (Chronic) Chest pain (Acute) Anxiety (Chronic) Dental caries (Acute) Nicotine dependence (Acute) Dyspnea on exertion (Acute) Shortness of breath (Acute) Hypercholesterolemia (Chronic 09/07/14) pt insists on lipitor 80 mg due to family hx Depression (Acute 10/02/14) Left-sided chest wall pain (Acute) Chest pain (Acute) Chronic headache (Acute) Migraine headache without aura (Acute) Migraine (Chronic) Poor dentition (Acute) Tobacco use disorder (Chronic) started 2013 1.5 ppd, pipe 1-7/week, QUIT LATE OCT 2021 Allergic rhinitis (Chronic) lortadine Hiatal hernia (Chronic) protonix not effective, nexium works better 02/12/18 Anemia (Chronic) Broken teeth (Chronic) Drug-seeking behavior (Chronic ~09/20/21) Requests Ritalin from providers Medication overuse headache (Acute) Medical History Obesity BMI 52 Hypertension pt requests brand name Tenormin vs atenolol 04/02/18 GERD (gastroesophageal reflux disease) (09/07/14) Diabetes mellitus type 2 in obese (09/09/14) Hypothyroidism (acquired) (09/07/14) Schizoaffective disorder (09/07/14) FREDDIE Thakkar 09/2014- [facility] inpatient Trigeminal neuralgia Anxiety Mitral valve prolapse Hyperlipidemia Peripheral neuropathy Surgical History No significant past surgical history Family History Father Heart disease [place] Social History Smoking/Tobacco Use Status: Former Tobacco Use Smoking risk assessment performed?: Yes Alcohol Intake: never Drug use: Never Substance use type: does not use Adopted: No Caregiver/Support person: No Foster care: No Household members: none Housing: apartment Number of Children: 2 number of grandchildren: 1 Communication Needs: Corrective Lenses Education Level: college Do you need help understanding health information?: Always current occupation: Unemployed/Leave of absence Sexually active: No Do you think of yourself as: Decline to provide Current gender identity: male What type of physical activity do you participate in: other Details: weight lifting Frequency: 3-4 times per week Magalie/Religious: Druze Seatbelt use: always Drive intox or ride w/intox 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
[2024-03-14 03:24] LABS: ALT 14 U/L (16-63); AST 10 U/L (15-37); Albumin 3.2 g/dL (3.4-5.0); Alkaline Phosphatase 61 U/L (46-116); Anion Gap 7.9 mmol/L (3-11); BUN 6 mg/dL (7-18); Bilirubin, Total 0.3 mg/dL (0.2-1.0); CO2 28.1 mmol/L (21.0-32.0); CREATININE 0.9 mg/dL (0.70-1.30); Calcium 8.4 mg/dL (8.5-10.1); Chloride 96 mmol/L (98-107); Estimated GFR 98.38 (mL/min/1.73m2); Glucose 155 mg/dL (74-106); Potassium 3.9 mmol/L (3.5-5.1); Sodium 132 mmol/L (136-145); TSH (W/Ref FT4) 12.94 uIU/mL (0.36-3.74); Total Protein 7.2 g/dL (6.4-8.2); Troponin I < 50 ng/L (< or =60)
[2024-03-14 03:41] LABS: FREE T4 0.86 ng/dL (0.76-1.46)
--- NOTE | 2024-03-14 04:18 | DI.VRAD_ITS ---
PROCEDURE INFORMATION: Exam: XR Chest Exam date and time: 03/14/2024 2:43 AM Age: 59 years old Clinical indication: Pain; Left-sided; Additional info: Left sided chest pain TECHNIQUE: Imaging protocol: Radiologic exam of the chest. Views: 1 view. COMPARISON: CR XR CHEST 2V PA LATERAL 03/08/2024 1:23 AM FINDINGS: Limitations: Left costophrenic angle not imaged. Lungs: No focal consolidation seen. Pleural spaces: No large pleural effusion seen. Heart/Mediastinum: Cardiac silhouette magnified by AP technique. Bones/joints: Grossly unremarkable. IMPRESSION: No acute findings to explain reported symptoms, within the limitations noted above. Dictated and Authenticated by: Johanny Del Rio MD. Ordering:GUERRERO Mcgovern MD
== END 2024-03-14 04:19 | disposition home or self-care (01) ==
PROVIDERS: Emergency Provider Student in an Organized Health Care Education/Training Program; PCP Family Medicine
DX: F41.9 Anxiety disorder, unspecified (principal); R07.9 Chest pain, unspecified; F32.A Depression, unspecified; I10 Essential (primary) hypertension; E11.9 Type 2 diabetes mellitus without complications; E78.5 Hyperlipidemia, unspecified; E03.9 Hypothyroidism, unspecified; F25.9 Schizoaffective disorder, unspecified; Z79.84 Long term (current) use of oral hypoglycemic drugs; Z87.891 Personal history of nicotine dependence
CPT/HCPCS: 80053; 93005; 99285; 71045; 84439; 84443; 84484; 85025; 93010; 99284; J2060

== ENCOUNTER 2024-03-22 23:22 | Emergency (ER) | payer MEDICAID, SELFPAY ==
[2024-03-22] VITALS (7 sets, daily range): BP systolic 106–137; BP diastolic 21–47; PULSE 65–71; RESP 12–18; TEMP 36.8
--- NOTE | 2024-03-22 23:15 | RT.EKG_ITS ---
APPROVED REPORT Exam: Resting ECG Reason for Exam: chest pain Patient Location: E HR:71 bpm ECG Measurements Heart Rate 71 AXIS ND 183 P 57 QRSd 104 QRS 56 QT 411 T 78 QTc 447 Conclusion Sinus rhythm...normal P axis, V-rate 60- 99 Physician: no stemi
[2024-03-22] MEDS: LORazepam 1 MG TAB PO (23:48)
[2024-03-22] MEDS: Ketorolac 15 MG/ML VIAL IVP (23:48)
[2024-03-22 23:51] LABS: Abs Immature Grans 0.05 10^3/uL (0.0-0.06); Absolute Basophil Count 0.01 10^3/uL (0.0-0.2); Absolute Eosinophil Count 0.13 10^3/uL (0.0-0.7); Absolute Lymphocyte Count 1.29 10^3/uL (1.2-3.4); Absolute Monocyte Count 0.55 10^3/uL (0.1-0.8); Absolute Neutrophil Count 2.73 10^3/uL (1.2-6.7); Basophils % 0.2 %; Eosinophils % 2.7 %; HCT 29.9 % (40.0-50.0); HGB 10.5 g/dL (13.5-17.5); Immature Grans % 1.1 %; Lymphocytes % 27.1 %; MCH 32.1 pg (27.0-33.0); MCHC 35.1 % (32.0-36.0); MCV 91 fL (80-95); MPV 9.5 fL (8.0-11.0); Monocytes % 11.6 %; Neutrophils % 57.3 %; RBC 3.27 10^6/uL (4.36-5.78); RDW 12.1 % (11.8-14.1); RDW-SD 40.4 fL; WBC 4.76 10^3/uL (4.4-10.8)
[2024-03-22 23:55] LABS: Platelet Count 97 10^3/uL (130-400)
[2024-03-22 23:56] LABS: Diff Comment PLT Morph Reviewed; RBC Morphology Normal
--- NOTE | 2024-03-22 23:58 | ED.GENADUL_ITS ---
Discharge Plan Disposition Patient Disposition: Home Condition: Good Discharge Details Chief Complaint: Chest Pain Clinical Impression: Anxiety, Left-sided chest wall pain Primary Care Provider: Brandon Foster ED Provider: Froilan Iraheta Home Meds and New Rx's Prescriptions: No Action gabapentin 300 mg capsule 300 mg PO QID Claritin Liqui-Gel 10 MG capsule 1 cap PO DAILY Qty: 90 Emgality Pen 120 mg/mL pen injector 120 mg subcut QMONTH Qty: 1 4RF multivitamin Tablet 1 tab PO DAILY metformin 500 mg tablet 1 tab PO BID clonazepam 0.5 mg tablet See Rx Instructions .ROUTE .COMPLEX Rx Instructions: 1 tab in AM, 1 tab at Noon and 2 tab QHS ondansetron 4 mg tablet,disintegrating 4 mg PO Q8H PRNQty: 10 0RF triamcinolone acetonide 0.1 % ointment 1 applic TOPICAL BID Patient Comments: Apply 1 a small amount to skin twice a day as needed as directed simvastatin 80 mg tablet 80 mg PO DAILY Patient Comments: Take 1 tablet by mouth once a day benztropine 0.5 MG tablet 0.5 mg PO BID aspirin,buffd-calcium carb-mag 325 MG tablet 325 mg PO DAILY lactulose 10 gram/15 mL solution 20 g PO DIRECTED PRN Patient Comments: TAKE ONE TO TWO TABLESPOONS BY MOUTH NEEDED WHEN 3 DAYS PASS WITHOUT BOWEL MOVEMENT albuterol sulfate 90 mcg/actuation aerosol powdr breath activated 2 inh IH Q6H PRN (Reason: shortness of breath or wheezing) Qty: 1 0RF simvastatin 40 mg tablet 80 mg PO DAILY fluoxetine 40 mg capsule 80 mg PO DAILY atenolol 25 mg tablet 75 mg PO DAILY Patient Comments: Take 3 tablet by mouth once a day Invega Sustenna 117 mg/0.75 mL syringe 117 mg IM Q30D divalproex [Depakote ER] 500 mg tablet extended release 24 hr 1,000 mg PO BID omeprazole 40 mg capsule,delayed release(DR/EC) 40 mg PO DAILY Patient Comments: TAKE 1 CAPSULE BY MOUTH DAILY FOR HEARTBURN Discharge Instructions Additional Instructions: At this time there is no evidence of significant cardiac abnormality. If you notice any worsening of your symptoms, or any new symptoms such as vomiting, diarrhea, fever, chills, shortness of breath, chest pain, numbness, weakness, or fainting , please return immediately to the emergency department for reevaluation. Please follow up with your primary care provider as soon as possible for reassessment and reevaluation. As always, it was a pleasure participating in your medical care today. Referrals: Brandon Foster [Primary Care Provider] - [facility] General Date/Time Provider Initiated Documentation: 03/22/24 23:26 . HPI Narrative: This is a 59-year-old male with a past medical history of anxiety, depression, type 2 diabetes, high cholesterol, obesity, schizoaffective disorder, hypothyroidism, presents today for evaluation of anxiety. Patient states that he started to feel anxious at home about an hour prior to arrival, shortly thereafter developed small amount of left-sided chest discomfort which has been consistent with his prior anxiety attacks. EMS was called, they offered to bring the crisis team to help care for him, but patient refused and wanted to come to the ER. Patient has no other complaints. Describes the pain as achy. No pleuritic component. He denies fever or chills. No tearing or ripping sensation. No significant dyspnea. No other complaints at this time. Related Data Home Medications Medication Instructions Recorded Confirmed loratadine 10 mg capsule (Claritin 1 cap PO DAILY #90 tabs 12/16/14 03/22/24 Liqui-Gel) aspirin,buffered (calcium 325 mg PO DAILY 11/18/16 03/22/24 carbonate-magnesium) 325 mg tablet benztropine 0.5 mg tablet 0.5 mg PO BID 11/18/16 03/22/24 lactulose 10 gram/15 mL oral 20 g PO DIRECTED PRN 10/03/20 03/22/24 solution albuterol sulfate 90 mcg/actuation 2 inh inhalation Q6H PRN shortness 12/15/20 03/22/24 breath activated powder inhaler of breath or wheezing #1 ea multivitamin 1 tab PO DAILY 01/26/21 03/22/24 metformin 500 mg tablet 1 tab PO BID 03/18/22 03/22/24 clonazepam 0.5 mg tablet See Rx Instructions .Route .COMPLEX 03/04/23 03/22/24 fluoxetine 40 mg capsule 80 mg PO DAILY 03/08/23 03/22/24 gabapentin 300 mg capsule 300 mg PO QID 03/27/23 03/22/24 simvastatin 40 mg tablet 80 mg PO DAILY 03/27/23 03/22/24 ondansetron 4 mg disintegrating 4 mg PO Q8H PRN #10 tabs 11/30/23 03/22/24 tablet atenolol 25 mg tablet 75 mg PO DAILY 01/31/24 03/22/24 divalproex 500 mg tablet,extended 1,000 mg PO BID 01/31/24 03/22/24 release 24 hr (Depakote ER) omeprazole 40 mg capsule,delayed 40 mg PO DAILY 01/31/24 03/22/24 release paliperidone palmitate 117 mg/0.75 117 mg IM Q30D 01/31/24 03/22/24 mL intramuscular syringe (Vertigo) triamcinolone acetonide 0.1 % 1 applic topical BID 03/06/24 03/22/24 topical ointment simvastatin 80 mg tablet 80 mg PO DAILY 03/08/24 03/22/24 galcanezumab-gnlm 120 mg/mL 120 mg subcut QMONTH #1 mL 03/19/24 03/22/24 subcutaneous pen injector (Emgality Pen) Previous Rx's Medication Instructions Recorded albuterol sulfate 90 mcg/actuation 2 inh inhalation Q6H PRN shortness 12/15/20 breath activated powder inhaler of breath or wheezing #1 ea ondansetron 4 mg disintegrating 4 mg PO Q8H PRN #10 tabs 11/30/23 tablet galcanezumab-gnlm 120 mg/mL 120 mg subcut QMONTH #1 mL 03/19/24 subcutaneous pen injector (Emgality Pen) Allergies Allergy/AdvReac Type Severity Reaction Status Date / Time buspirone Allergy Other (See Verified 03/22/24 23:53 Comment) paliperidone Allergy Other (See Verified 03/22/24 23:53 Comment) paroxetine HCl [From Paxil] Allergy Other (See Verified 03/22/24 23:53 Comment) sertraline Allergy Other (See Verified 03/22/24 23:53 Comment) ziprasidone [From Geodon] Allergy Other (See Verified 03/22/24 23:53 Comment) aripiprazole [From Abilify] AdvReac Intermediate INVOLUNTARY Verified 03/22/24 23:53 MUSCLE MOVEMENTS mirtazapine AdvReac Intermediate INVOLUNTARY Verified 03/22/24 23:53 MUSCLE MOVEMENTS risperidone AdvReac Intermediate INVOLUNTARY Verified 03/22/24 23:53 MUSCLE MOVEMENTS enviornmental Allergy Mild Wheezing Uncoded 03/22/24 23:53 General Stated Complaint: Chest Pain CARLOS: 3 Review of Systems All systems reviewed & are unremarkable except as noted in HPI and below Exam Narrative Exam Narrative: 1.Const: Disheveled 2.Eyes: PERRL, no conjunctival injection, and symmetrical lids. 3.ENT: Atraumatic external nose and ears. Moist MM. Neck: Symmetric, trachea midline, No thyromegaly. 4.CVS: +S1/S2, No murmurs or gallops. Peripheral pulses 2+ and equal in all extremities. Brisk capillary refill in all extremities. 5.RESP: Unlabored respiratory effort. Clear to auscultation bilaterally. No wheezes rales or rhonchi 6.GI: Soft, Nontender/Nondistended, No hepatosplenomegaly. No guarding or rebound. 7.MSK: Normocephalic/Atraumatic, Extremities w/o deformity or ttp No cyanosis or clubbing, Normal movement of all extremities 8.Skin: Warm, Dry. No rashes or lesions. 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 Sensation grossly intact, no focal neurologic deficits. 10.Psych: (AAO) x3. Appropriate mood and affect Course Vital Signs Vital signs: Vital Signs Temperature 36.8 C 03/22/24 23:23 Pulse 71 03/22/24 23:23 Respiratory Rate 14 03/22/24 23:23 Blood Pressure 106/21 L 03/22/24 23:23 Temperature 36.8 C 03/22/24 23:23 Pulse 71 03/22/24 23:23 Respiratory Rate 16 03/22/24 23:50 Respiratory Effort Normal, Non-Labored 03/22/24 23:50 Respiratory Depth Normal 03/22/24 23:50 Respiratory Pattern Normal 03/22/24 23:50 Blood Pressure 106/21 L 03/22/24 23:23 Blood Pressure Position Sitting 03/22/24 23:23 Oxygen Delivery Method Room Air 03/22/24 23:23 Oxygen Flow Rate 0 03/22/24 23:23 Pain Level 7 03/22/24 23:50 Comment Initial 07/15. Pt complains of 10 now. 05/18/24 23:23 Medical Decision Making This is a 59-year-old male with a past medical history of anxiety, depression, type 2 diabetes, high cholesterol, obesity, schizoaffective disorder, hypothyroidism, presents today for evaluation of anxiety. Patient states that he started to feel anxious at home about an hour prior to arrival, shortly thereafter developed small amount of left-sided chest discomfort which has been consistent with his prior anxiety attacks. EMS was called, they offered to bring the crisis team to help care for him, but patient refused and wanted to come to the ER. Patient has no other complaints. Describes the pain as achy. No pleuritic component. He denies fever or chills. No tearing or ripping sensation. No significant dyspnea. No other complaints at this time. Exam demonstrates a disheveled appearing male, EKG benign. Vital signs stable. Based on his current clinical assessment, notable history of these events, symptoms appear consistent with anxiety, however out of an abundance of precaution we will evaluate for cardiac etiology. Will give NSAID therapy and Ativan. And reassess. 1:13 AM Laboratory workup is returned, sodium slightly low at 128 which is near his baseline. Potassium normal, troponin normal, EKG benign. No evidence of STEMI. Patient feels much better. Patient stable for discharge. Suspect symptoms are secondary to mild anxiety. Symptoms inconsistent with ACS, dissection or PE. I have extensively reviewed the treatment plan and discharge instructions with the patient. I have addressed all patient concerns at this time. The patient was made aware of what symptoms to monitor for that would warrant a return to the emergency department. Discussed the plan with the patient, they demonstrate verbal understanding and agreement with our assessment and plan at this time. The documentation in this chart was dictated using [employer] dictation software. Please excuse any dictation errors. Quality:SDOH Health Related Social Needs: Health related social needs food insecurity PFSH All Active Problems (Updated 03/23/24 @ 01:20 by Froilan Irahtea DO) Anxiety (Chronic) Anxiety (Chronic) Dental caries (Acute) Nicotine dependence (Acute) Dyspnea on exertion (Acute) Shortness of breath (Acute) Hypercholesterolemia (Chronic 09/07/14) pt insists on lipitor 80 mg due to family hx Depression (Acute 10/02/14) Left-sided chest wall pain (Acute) Chest pain (Acute) Chronic headache (Acute) Migraine headache without aura (Acute) Migraine (Chronic) Poor dentition (Acute) Tobacco use disorder (Chronic) started 2013 1.5 ppd, pipe 1-7/week, QUIT LATE OCT 2021 Allergic rhinitis (Chronic) lortadine Hiatal hernia (Chronic) protonix not effective, nexium works better 02/12/18 Anemia (Chronic) Broken teeth (Chronic) Drug-seeking behavior (Chronic ~09/20/21) Requests Ritalin from providers Medication overuse headache (Acute) Medical History Obesity BMI 52 Hypertension pt requests brand name Tenormin vs atenolol 04/02/18 GERD (gastroesophageal reflux disease) (09/07/14) Diabetes mellitus type 2 in obese (09/09/14) Hypothyroidism (acquired) (09/07/14) Schizoaffective disorder (09/07/14) Rebekah Mariscal [facility] 09/2014- [facility] inpatient Trigeminal neuralgia Anxiety Mitral valve prolapse Hyperlipidemia Peripheral neuropathy Surgical History No significant past surgical history Family History Father Heart disease [place] Social History Smoking/Tobacco Use Status: Former Tobacco Use Smoking risk assessment performed?: Yes Alcohol Intake: never Drug use: Never Substance use type: does not use Adopted: No Caregiver/Support person: No Foster care: No Household members: none Housing: apartment Number of Children: 2 number of grandchildren: 1 Communication Needs: Corrective Lenses Education Level: college Do you need help understanding health information?: Always current occupation: Unemployed/Leave of absence Sexually active: No Do you think of yourself as: Decline to provide Current gender identity: male What type of physical activity do you participate in: other Details: weight lifting Frequency: 3-4 times per week Magalie/Mormon: Church Seatbelt use: always 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
[2024-03-23] VITALS (23 sets, daily range): BP systolic 99–154; BP diastolic 38–122; PULSE 61–120; RESP 12–27; O2SAT 98
[2024-03-23 00:01] LABS: ALT 13 U/L (16-63); AST 7 U/L (15-37); Alkaline Phosphatase 52 U/L (46-116); Anion Gap 5.8 mmol/L (3-11); BUN 4 mg/dL (7-18); Bilirubin, Total 0.3 mg/dL (0.2-1.0); CO2 30.2 mmol/L (21.0-32.0); CREATININE 0.7 mg/dL (0.70-1.30); Calcium 8.2 mg/dL (8.5-10.1); Chloride 92 mmol/L (98-107); Estimated GFR 106.14 (mL/min/1.73m2); Glucose 121 mg/dL (74-106); Potassium 4.5 mmol/L (3.5-5.1); Sodium 128 mmol/L (136-145); Troponin I < 50 ng/L (< or =60)
[2024-03-23] MEDS: Nicotine 4 MG GUM CH (02:15)
== END 2024-03-23 06:00 | disposition home or self-care (01) ==
PROVIDERS: Emergency Provider Student in an Organized Health Care Education/Training Program; PCP Family Medicine
DX: R07.9 Chest pain, unspecified (principal); F41.9 Anxiety disorder, unspecified; Z86.59 Personal history of other mental and behavioral disorders
CPT/HCPCS: 36415; 80053; 93005; 96374; 99284; 84484; 85025; 93010; 99283; J1885

== ENCOUNTER 2024-03-28 18:07 | Outpatient (REF) | payer MEDICAID, SELFPAY ==
[2024-03-28 19:09] LABS: Bacteria Negative HPF (Negative); C & S Indicated? C&S Done As Ordered; Crystals Negative HPF (Negative); Epithelial Cells Rare HPF (Negative); Mucus Negative (Negative); Other Cells Negative (Negative); RBC 0-2 HPF (0-2); WBC Negative HPF (0-5)
== END 2024-03-28 18:08 | disposition home or self-care (01) ==
LOC: LBN 18:07
PROVIDERS: PCP Family Medicine; Visit Provider Physician Assistant Medical
DX: R82.89 Other abnormal findings on cytological and histological examination of urine (principal)
CPT/HCPCS: 81015; 87086

== ENCOUNTER 2024-04-03 19:24 | Emergency (ER) | payer MEDICAID, SELFPAY ==
--- NOTE | 2024-04-03 19:15 | RT.EKG_ITS ---
APPROVED REPORT Exam: Resting ECG Reason for Exam: cp Patient Location: E HR:61 bpm ECG Measurements Heart Rate 61 AXIS MN 197 P 47 QRSd 98 QRS 39 QT 435 T 44 QTc 439 Conclusion Sinus rhythm...normal P axis, V-rate 60- 99 sinus rhythm, normal axis, normal intervals, non ischemic
[2024-04-03 19:23] VITALS: BP 143/77; PULSE 65; RESP 18; TEMP 35.7; O2SAT 96
--- NOTE | 2024-04-03 20:27 | ED.GENADUL_ITS ---
Discharge Plan Disposition Patient Disposition: Home Condition: Improving Discharge Details Chief Complaint: Chest Pain Clinical Impression: Chest pain Primary Care Provider: Brandon Foster ED Provider: Lb Cordero Home Meds and New Rx's Prescriptions: No Action gabapentin 300 mg capsule 300 mg PO QID Claritin Liqui-Gel 10 MG capsule 1 cap PO DAILY Qty: 90 Emgality Pen 120 mg/mL pen injector 120 mg subcut QMONTH Qty: 1 4RF multivitamin Tablet 1 tab PO DAILY metformin 500 mg tablet 1 tab PO BID clonazepam 0.5 mg tablet See Rx Instructions .ROUTE .COMPLEX Rx Instructions: 1 tab in AM, 1 tab at Noon and 2 tab QHS ondansetron 4 mg tablet,disintegrating 4 mg PO Q8H PRNQty: 10 0RF triamcinolone acetonide 0.1 % ointment 1 applic TOPICAL BID Patient Comments: Apply 1 a small amount to skin twice a day as needed as directed simvastatin 80 mg tablet 80 mg PO DAILY Patient Comments: Take 1 tablet by mouth once a day benztropine 0.5 MG tablet 0.5 mg PO BID aspirin,buffd-calcium carb-mag 325 MG tablet 325 mg PO DAILY lactulose 10 gram/15 mL solution 20 g PO DIRECTED PRN Patient Comments: TAKE ONE TO TWO TABLESPOONS BY MOUTH NEEDED WHEN 3 DAYS PASS WITHOUT BOWEL MOVEMENT albuterol sulfate 90 mcg/actuation aerosol powdr breath activated 2 inh IH Q6H PRN (Reason: shortness of breath or wheezing) Qty: 1 0RF simvastatin 40 mg tablet 80 mg PO DAILY fluoxetine 40 mg capsule 80 mg PO DAILY atenolol 25 mg tablet 75 mg PO DAILY Patient Comments: Take 3 tablet by mouth once a day Invega Sustenna 117 mg/0.75 mL syringe 117 mg IM Q30D divalproex [Depakote ER] 500 mg tablet extended release 24 hr 1,000 mg PO BID omeprazole 40 mg capsule,delayed release(DR/EC) 40 mg PO DAILY Patient Comments: TAKE 1 CAPSULE BY MOUTH DAILY FOR HEARTBURN Discharge Instructions Instructions: Chest Pain (ED) HPI General Date/Time Provider Initiated Documentation: 04/03/24 19:41 . HPI Narrative: 59-year-old male presents with intermittent anterior chest discomfort left-sided in nature associated with sensation of anxiety and depression over the last couple of days. Patient endorses being discharged from his care bed in the community. After being home for some time patient feels as if he is dragging with worsening depression. Related Data Home Medications Medication Instructions Recorded Confirmed loratadine 10 mg capsule (Claritin 1 cap PO DAILY #90 tabs 12/16/14 04/03/24 Liqui-Gel) aspirin,buffered (calcium 325 mg PO DAILY 11/18/16 04/03/24 carbonate-magnesium) 325 mg tablet benztropine 0.5 mg tablet 0.5 mg PO BID 11/18/16 04/03/24 lactulose 10 gram/15 mL oral 20 g PO DIRECTED PRN 10/03/20 04/03/24 solution albuterol sulfate 90 mcg/actuation 2 inh inhalation Q6H PRN shortness 12/15/20 04/03/24 breath activated powder inhaler of breath or wheezing #1 ea multivitamin 1 tab PO DAILY 01/26/21 04/03/24 metformin 500 mg tablet 1 tab PO BID 03/18/22 04/03/24 clonazepam 0.5 mg tablet See Rx Instructions .Route .COMPLEX 03/04/23 04/03/24 fluoxetine 40 mg capsule 80 mg PO DAILY 03/08/23 04/03/24 gabapentin 300 mg capsule 300 mg PO QID 03/27/23 04/03/24 simvastatin 40 mg tablet 80 mg PO DAILY 03/27/23 04/03/24 ondansetron 4 mg disintegrating 4 mg PO Q8H PRN #10 tabs 11/30/23 04/03/24 tablet atenolol 25 mg tablet 75 mg PO DAILY 01/31/24 04/03/24 divalproex 500 mg tablet,extended 1,000 mg PO BID 01/31/24 04/03/24 release 24 hr (Depakote ER) omeprazole 40 mg capsule,delayed 40 mg PO DAILY 01/31/24 04/03/24 release paliperidone palmitate 117 mg/0.75 117 mg IM Q30D 01/31/24 04/03/24 mL intramuscular syringe (Invega Sustenna) triamcinolone acetonide 0.1 % 1 applic topical BID 03/06/24 04/03/24 topical ointment simvastatin 80 mg tablet 80 mg PO DAILY 03/08/24 04/03/24 galcanezumab-gnlm 120 mg/mL 120 mg subcut QMONTH #1 mL 03/19/24 04/03/24 subcutaneous pen injector (Emgality Pen) Previous Rx's Medication Instructions Recorded albuterol sulfate 90 mcg/actuation 2 inh inhalation Q6H PRN shortness 12/15/20 breath activated powder inhaler of breath or wheezing #1 ea ondansetron 4 mg disintegrating 4 mg PO Q8H PRN #10 tabs 11/30/23 tablet galcanezumab-gnlm 120 mg/mL 120 mg subcut QMONTH #1 mL 03/19/24 subcutaneous pen injector (Emgality Pen) Allergies Allergy/AdvReac Type Severity Reaction Status Date / Time buspirone Allergy Other (See Verified 04/03/24 19:29 Comment) paliperidone Allergy Other (See Verified 04/03/24 19:29 Comment) paroxetine HCl [From Paxil] Allergy Other (See Verified 04/03/24 19:29 Comment) sertraline Allergy Other (See Verified 04/03/24 19:29 Comment) ziprasidone [From Geodon] Allergy Other (See Verified 04/03/24 19:29 Comment) aripiprazole [From Abilify] AdvReac Intermediate INVOLUNTARY Verified 04/03/24 19:29 MUSCLE MOVEMENTS mirtazapine AdvReac Intermediate INVOLUNTARY Verified 04/03/24 19:29 MUSCLE MOVEMENTS risperidone AdvReac Intermediate INVOLUNTARY Verified 04/03/24 19:29 MUSCLE MOVEMENTS enviornmental Allergy Mild Wheezing Uncoded 04/03/24 19:29 General Stated Complaint: Chest Pain CARLOS: 3 Review of Systems Narrative: Review of Systems Constitutional: negative Eyes: negative ENT: negative Cardiovascular: Chest pain Respiratory: negative Gastrointestinal: negative : negative Musculoskeletal: negative Skin: negative Neurologic: negative Psych: Depression Exam Narrative Exam Narrative: Physical Examination General: alert, awake, cooperative, resting comfortably, no acute distress HEENT: normocephalic, atraumatic; PERRL, EOM intact, conjunctiva normal; no nasal discharge; moist mucous membranes, oral and pharyngeal mucosa normal, tolerating secretions Neck: supple, trachea midline; full ROM Chest: normal to inspection Respiratory: normal respiratory effort, speaking in full sentences, clear to auscultation, no wheezing, rales or rhonchi Cardiac: regular rate, regular rhythm, S1S2 intact, no murmurs rubs or gallops GI: abdomen soft, non-tender, non-distended; no palpable mass or hepatosplenomegaly Skin: no lesions, rashes or trauma appreciated Neuro: AAOx3, normal speech, moving all extremities Extremities: No peripheral edema Psych: Depression Course Vital Signs Vital signs: Vital Signs Temperature 35.7 C L 04/03/24 19:23 Pulse 65 04/03/24 19:23 Respiratory Rate 18 04/03/24 19:23 Blood Pressure 143/77 H 04/03/24 19:23 Pulse Oximetry 96 04/03/24 19:23 Temperature 35.7 C L 04/03/24 19:23 Temperature Source Temporal Artery Scan 04/03/24 19:23 Pulse 65 04/03/24 19:23 Respiratory Rate 18 04/03/24 19:23 Respiratory Effort Normal 04/03/24 19:27 Blood Pressure 143/77 H 04/03/24 19:23 Pulse Oximetry 96 04/03/24 19:23 Oxygen Delivery Method Room Air 04/03/24 19:23 Oxygen Flow Rate 0 04/03/24 19:23 Pain Level 8 04/03/24 19:23 Medical Decision Making 59-year-old male presents with intermittent anterior chest discomfort left-sided in nature associated with sensation of anxiety and depression over the last couple of days. Patient endorses being discharged from his care bed in the community. After being home for some time patient feels as if he is dragging with worsening depression. Patient alert oriented interactive afebrile nontoxic. EKG normal sinus rhythm nonischemic. No active chest pain. Hemodynamically stable. No signs of intoxication or trauma no signs of infection. Low suspicion for ACS PE or aortic pathology. Low suspicion for infectious process such as pneumonia. High clinical suspicion for acute on chronic anxiety and depression. Patient would like medication for nausea as well as for his anxiety. Will provide dose of Zofran as well as clonazepam. Have placed a consult with [facility] human services to evaluate patient for safety plan versus care bed versus less likely inpatient placement for worsening depression 22: 11 patient resting comfortably no acute distress. Evaluated by [facility]. Cleared for home with close follow-up. Quality:SDOH Health Related Social Needs: Health related social needs food insecurity PFSH All Active Problems (Updated 04/03/24 @ 22:12 by Lb Cordero MD) Chest pain (Acute) Anxiety (Chronic) Anxiety (Chronic) Dental caries (Acute) Nicotine dependence (Acute) Dyspnea on exertion (Acute) Shortness of breath (Acute) Hypercholesterolemia (Chronic 09/07/14) pt insists on lipitor 80 mg due to family hx Depression (Acute 10/02/14) Left-sided chest wall pain (Acute) Chest pain (Acute) Chronic headache (Acute) Migraine headache without aura (Acute) Migraine (Chronic) Poor dentition (Acute) Tobacco use disorder (Chronic) started 2013 1.5 ppd, pipe 1-7/week, QUIT LATE OCT 2021 Allergic rhinitis (Chronic) lortadine Hiatal hernia (Chronic) protonix not effective, nexium works better 02/12/18 Anemia (Chronic) Broken teeth (Chronic) Drug-seeking behavior (Chronic ~09/20/21) Requests Ritalin from providers Medication overuse headache (Acute) Medical History Obesity BMI 52 Hypertension pt requests brand name Tenormin vs atenolol 04/02/18 GERD (gastroesophageal reflux disease) (09/07/14) Diabetes mellitus type 2 in obese (09/09/14) Hypothyroidism (acquired) (09/07/14) Schizoaffective disorder (09/07/14) FREDDIE Thakkar [facility] Trigeminal neuralgia Anxiety Mitral valve prolapse Hyperlipidemia Peripheral neuropathy Surgical History No significant past surgical history Family History Father Heart disease [place] Social History Smoking/Tobacco Use Status: Former Tobacco Use Smoking risk assessment performed?: Yes Alcohol Intake: never Drug use: Never Substance use type: does not use Adopted: No Caregiver/Support person: No Foster care: No Household members: none Housing: apartment Number of Children: 2 number of grandchildren: 1 Communication Needs: Corrective Lenses Education Level: college Do you need help understanding health information?: Always current occupation: Unemployed/Leave of absence Sexually active: No Do you think of yourself as: Decline to provide Current gender identity: male What type of physical activity do you participate in: other Details: weight lifting Frequency: 3-4 times per week Magalie/Oriental Orthodox: [employer]ist Seatbelt use: always Drive 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
[2024-04-03 20:39] VITALS: RESP 22
[2024-04-03] MEDS: Ondansetron O.D.T. 4 MG TABEF SL (20:41)
[2024-04-03] MEDS: clonazePAM 0.5 MG TAB 0.25 MG PO (20:41)
[2024-04-03 22:33] VITALS: BP 126/66; PULSE 60; RESP 22; TEMP 36.6; O2SAT 95
== END 2024-04-03 22:33 | disposition home or self-care (01) ==
PROVIDERS: Emergency Provider Emergency Medicine; PCP Family Medicine
DX: R07.9 Chest pain, unspecified (principal); R06.02 Shortness of breath; F41.9 Anxiety disorder, unspecified; F32.A Depression, unspecified; Z79.899 Other long term (current) drug therapy
CPT/HCPCS: 93005; 99283; 93010; 99285

== ENCOUNTER 2024-04-13 13:26 | Emergency (ER) | payer MEDICAID, SELFPAY ==
[2024-04-13] VITALS (13 sets, daily range): BP systolic 185; BP diastolic 66; PULSE 53–61; RESP 10–20; TEMP 36.3; O2SAT 99
--- NOTE | 2024-04-13 13:15 | RT.EKG_ITS ---
APPROVED REPORT Exam: Resting ECG Reason for Exam: chest pain Patient Location: E HR:57 bpm ECG Measurements Heart Rate 57 AXIS HI 200 P 74 QRSd 97 QRS 61 QT 455 T 94 QTc 444 Conclusion Sinus bradycardia 57 no stemi
[2024-04-13 14:00] LABS: Abs Immature Grans 0.01 10^3/uL (0.0-0.06); Absolute Basophil Count 0.01 10^3/uL (0.0-0.2); Absolute Monocyte Count 0.35 10^3/uL (0.1-0.8); Absolute Neutrophil Count 1.22 10^3/uL (1.2-6.7); Basophils % 0.3 %; Eosinophils % 3.5 %; HCT 31.7 % (40.0-50.0); HGB 10.9 g/dL (13.5-17.5); Immature Grans % 0.3 %; Lymphocytes % 41.5 %; MCH 32.2 pg (27.0-33.0); MCHC 34.4 % (32.0-36.0); MCV 94 fL (80-95); Monocytes % 12.1 %; Neutrophils % 42.3 %; Platelet Count 108 10^3/uL (130-400); RBC 3.38 10^6/uL (4.36-5.78); RDW 12.6 % (11.8-14.1); RDW-SD 43.2 fL; WBC 2.89 10^3/uL (4.4-10.8)
[2024-04-13 14:13] LABS: ALT 18 U/L (16-63); AST 16 U/L (15-37); Albumin 3.4 g/dL (3.4-5.0); Alkaline Phosphatase 56 U/L (46-116); Anion Gap 5.8 mmol/L (3-11); BUN 8 mg/dL (7-18); Bilirubin, Total 0.3 mg/dL (0.2-1.0); CO2 30.2 mmol/L (21.0-32.0); CREATININE 0.9 mg/dL (0.70-1.30); Calcium 8.6 mg/dL (8.5-10.1); Chloride 97 mmol/L (98-107); Estimated GFR 98.38 (mL/min/1.73m2); Glucose 126 mg/dL (74-106); Lipase 11 U/L (16-77); Magnesium 1.8 mg/dL (1.8-2.4); Potassium 4.8 mmol/L (3.5-5.1); Sodium 133 mmol/L (136-145); Total Protein 7.7 g/dL (6.4-8.2); Troponin I < 50 ng/L (< or =60)
--- NOTE | 2024-04-13 14:26 | W.ED.GENAD ---
Discharge Plan Disposition Patient Disposition: Home Condition: Stable Discharge Details Clinical Impression: Atypical chest pain Primary Care Provider: Brandon Foster ED Provider: Lucille Farley Home Meds and New Rx's Prescriptions: Continued gabapentin 300 mg capsule 300 mg PO QID Claritin Liqui-Gel 10 MG capsule 1 cap PO DAILY Qty: 90 Emgality Pen 120 mg/mL pen injector 120 mg subcut QMONTH Qty: 1 4RF multivitamin Tablet 1 tab PO DAILY metformin 500 mg tablet 1 tab PO BID clonazepam 0.5 mg tablet See Rx Instructions .ROUTE .COMPLEX Rx Instructions: 1 tab in AM, 1 tab at Noon and 2 tab QHS ondansetron 4 mg tablet,disintegrating 4 mg PO Q8H PRNQty: 10 0RF triamcinolone acetonide 0.1 % ointment 1 applic TOPICAL BID Patient Comments: Apply 1 a small amount to skin twice a day as needed as directed simvastatin 80 mg tablet 80 mg PO DAILY Patient Comments: Take 1 tablet by mouth once a day benztropine 0.5 MG tablet 0.5 mg PO BID aspirin,buffd-calcium carb-mag 325 MG tablet 325 mg PO DAILY lactulose 10 gram/15 mL solution 20 g PO DIRECTED PRN Patient Comments: TAKE ONE TO TWO TABLESPOONS BY MOUTH NEEDED WHEN 3 DAYS PASS WITHOUT BOWEL MOVEMENT albuterol sulfate 90 mcg/actuation aerosol powdr breath activated 2 inh IH Q6H PRN (Reason: shortness of breath or wheezing) Qty: 1 0RF simvastatin 40 mg tablet 80 mg PO DAILY fluoxetine 40 mg capsule 80 mg PO DAILY atenolol 25 mg tablet 75 mg PO DAILY Patient Comments: Take 3 tablet by mouth once a day Invega Sustenna 117 mg/0.75 mL syringe 117 mg IM Q30D divalproex [Depakote ER] 500 mg tablet extended release 24 hr 1,000 mg PO BID omeprazole 40 mg capsule,delayed release(DR/EC) 40 mg PO DAILY Patient Comments: TAKE 1 CAPSULE BY MOUTH DAILY FOR HEARTBURN Discharge Instructions Instructions: Chest Pain (ED) Additional Instructions: Please follow-up with your primary care physician You have had numerous evaluations for chest pain here and an echocardiogram all of which did not display evidence of a serious heart issue I recommend continuing on your prescribed medications and following up with your doctor as needed Should you develop change in pain or dramatic worsening of your pain please present for reevaluation Referrals: Brandon Foster [Primary Care Provider] - 3 days Discharge Data Discharge Date/Time-TO BE ENTERED AT DEPARTURE: 04/13/24 14:51 HPI General Date/Time Provider Initiated Documentation: 04/13/24 13:35. HPI Narrative: This 59-year-old male presents with chest pain that started approximately 3 hours prior to arrival states he has had this pain before. 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 Smokes alcohol history of hypertension and hyperlipidemia. Also reports history of diabetes. Denies any radiation of pain does report some nausea. Denies any calf pain or swelling or history of coagulopathy. Denies any significant change in pain except that there is no associated radiation on this occasion. Related Data Home Medications Medication Instructions Recorded Confirmed loratadine 10 mg capsule (Claritin 1 cap PO DAILY #90 tabs 12/16/14 04/03/24 Liqui-Gel) aspirin,buffered (calcium 325 mg PO DAILY 11/18/16 04/03/24 carbonate-magnesium) 325 mg tablet benztropine 0.5 mg tablet 0.5 mg PO BID 11/18/16 04/03/24 lactulose 10 gram/15 mL oral 20 g PO DIRECTED PRN 10/03/20 04/03/24 solution albuterol sulfate 90 mcg/actuation 2 inh inhalation Q6H PRN shortness 12/15/20 04/03/24 breath activated powder inhaler of breath or wheezing #1 ea multivitamin 1 tab PO DAILY 01/26/21 04/03/24 metformin 500 mg tablet 1 tab PO BID 03/18/22 04/03/24 clonazepam 0.5 mg tablet See Rx Instructions .Route .COMPLEX 03/04/23 04/03/24 fluoxetine 40 mg capsule 80 mg PO DAILY 03/08/23 04/03/24 gabapentin 300 mg capsule 300 mg PO QID 03/27/23 04/03/24 simvastatin 40 mg tablet 80 mg PO DAILY 03/27/23 04/03/24 ondansetron 4 mg disintegrating 4 mg PO Q8H PRN #10 tabs 11/30/23 04/03/24 tablet atenolol 25 mg tablet 75 mg PO DAILY 01/31/24 04/03/24 divalproex 500 mg tablet,extended 1,000 mg PO BID 01/31/24 04/03/24 release 24 hr (Depakote ER) omeprazole 40 mg capsule,delayed 40 mg PO DAILY 01/31/24 04/03/24 release paliperidone palmitate 117 mg/0.75 117 mg IM Q30D 01/31/24 04/03/24 mL intramuscular syringe (Invega Sustenna) triamcinolone acetonide 0.1 % 1 applic topical BID 03/06/24 04/03/24 topical ointment simvastatin 80 mg tablet 80 mg PO DAILY 03/08/24 04/03/24 galcanezumab-gnlm 120 mg/mL 120 mg subcut QMONTH #1 mL 03/19/24 04/03/24 subcutaneous pen injector (Emgality Pen) Previous Rx's Medication Instructions Recorded albuterol sulfate 90 mcg/actuation 2 inh inhalation Q6H PRN shortness 12/15/20 breath activated powder inhaler of breath or wheezing #1 ea ondansetron 4 mg disintegrating 4 mg PO Q8H PRN #10 tabs 11/30/23 tablet galcanezumab-gnlm 120 mg/mL 120 mg subcut QMONTH #1 mL 03/19/24 subcutaneous pen injector (Emgality Pen) Allergies Allergy/AdvReac Type Severity Reaction Status Date / Time buspirone Allergy Other (See Verified 04/03/24 19:29 Comment) paliperidone Allergy Other (See Verified 04/03/24 19:29 Comment) paroxetine HCl [From Paxil] Allergy Other (See Verified 04/03/24 19:29 Comment) sertraline Allergy Other (See Verified 04/03/24 19:29 Comment) ziprasidone [From Geodon] Allergy Other (See Verified 04/03/24 19:29 Comment) aripiprazole [From Abilify] AdvReac Intermediate INVOLUNTARY Verified 04/03/24 19:29 MUSCLE MOVEMENTS mirtazapine AdvReac Intermediate INVOLUNTARY Verified 04/03/24 19:29 MUSCLE MOVEMENTS risperidone AdvReac Intermediate INVOLUNTARY Verified 04/03/24 19:29 MUSCLE MOVEMENTS enviornmental Allergy Mild Wheezing Uncoded 04/03/24 19:29 General Stated Complaint: Chest Pain CARLOS: 3 Exam Narrative Exam Narrative: Alert and oriented 59-year-old male no scleral icterus, lungs clear to auscultation, cardiac rate rhythm regular, mild chest wall tenderness over left pack, no rashes or lesions, no abdominal tenderness, no abdominal bruit or pulsatile mass, no pallor, alert and oriented x 4, no peripheral edema, distal pulses intact Course Vital Signs Vital signs: Vital Signs Temperature 36.3 C L 04/13/24 13:26 Pulse 55 L 04/13/24 13:26 Respiratory Rate 12 04/13/24 13:26 Blood Pressure 185/66 H 04/13/24 13:26 Pulse Oximetry 99 04/13/24 13:26 Temperature 36.3 C L 04/13/24 13:26 Temperature Source Tympanic 04/13/24 13:26 Pulse 55 L 04/13/24 13:26 Respiratory Rate 10 L 04/13/24 13:36 Respiratory Effort Normal 04/13/24 13:36 Respiratory Depth Normal 04/13/24 13:36 Respiratory Pattern Normal 04/13/24 13:36 Blood Pressure 185/66 H 04/13/24 13:26 Blood Pressure Position Supine 04/13/24 13:26 Pulse Oximetry 99 04/13/24 13:26 Oxygen Delivery Method Room Air 04/13/24 13:26 Oxygen Flow Rate 0 04/13/24 13:26 Pain Level 7 04/13/24 13:36 Comment Had 3 extra strength APAP at home and 4 baby ASA with EMS. 04/13/24 13:26 Lab/Test Results Lab/Test Results: Laboratory Tests Range/Units 04/13/24 04/13/24 13:45 13:45 WBC (4.4-10.8) 10^3/uL 2.89 L RBC (4.36-5.78) 10^6/uL 3.38 L Hgb (13.5-17.5) g/dL 10.9 L Hct (40.0-50.0) % 31.7 L MCV (80-95) fL 94 MCH (27.0-33.0) pg 32.2 MCHC (32.0-36.0) % 34.4 RDW (11.8-14.1) % 12.6 Plt Count (130-400) 10^3/uL 108 L MPV (8.0-11.0) fL 9.0 Immature Gran % % 0.3 Neutrophils % % 42.3 Lymphocytes % % 41.5 Monocytes % % 12.1 Eosinophils % % 3.5 Basophils % % 0.3 Nucleated RBC % (0.0-0.3) % 0.0 Absolute Neutrophils (1.2-6.7) 10^3/uL 1.22 Absolute Lymphocytes (1.2-3.4) 10^3/uL 1.20 Absolute Monocytes (0.1-0.8) 10^3/uL 0.35 Absolute Eosinophils (0.0-0.7) 10^3/uL 0.10 Absolute Basophils (0.0-0.2) 10^3/uL 0.01 Sodium (136-145) mmol/L 133 L Potassium (3.5-5.1) mmol/L 4.8 Chloride (98-107) mmol/L 97 L Carbon Dioxide (21.0-32.0) mmol/L 30.2 Anion Gap (3-11) mmol/L 5.8 BUN (7-18) mg/dL 8 Creatinine (0.70-1.30) mg/dL 0.9 Est GFR (CKD-EPI 2020) (mL/min/1.73m2) 98.38 Glucose (74-106) mg/dL 126 H Calcium (8.5-10.1) mg/dL 8.6 Magnesium (1.8-2.4) mg/dL 1.8 Total Bilirubin (0.2-1.0) mg/dL 0.3 AST (15-37) U/L 16 ALT (16-63) U/L 18 Alkaline Phosphatase (46-116) U/L 56 Troponin I (< or =60) ng/L < 50 Total Protein (6.4-8.2) g/dL 7.7 Albumin (3.4-5.0) g/dL 3.4 Lipase (16-77) U/L 11 L Cancelled Medical Decision Making 59-year-old male known to this facility presenting with left-sided chest discomfort that started today, greater than 3 hours of pains a single troponin with recurrent visits for chest pain and negative cardiac workups 1 troponin is reasonable. EKG, with nonspecific ST changes, when compared to several prior EKGs no significant change. Please see my attendings documentation. Diagnostic labs including troponin without acute abnormality. Baseline anemia for patient actually improved 10.9 and 31.7 mild hyponatremia not significantly changed from prior, 133. Reviewed patient's echocardiogram from several months ago without significant acute abnormality, specifically no significant wall motion abnormalities. Patient is encouraged to follow-up with primary care physician. Given oxygen status of 99% on room air, no tachypnea or tachycardia, low suspicion clinically for PE smoking cessation reviewed. Pain-free at time of reassessment, stable for discharge home at this time Quality:SDOH Health Related Social Needs: Health related social needs food insecurity PFSH All Active Problems (Updated 04/14/24 @ 00:07 by ZAFAR TRENT) Atypical chest pain (Acute) Chest pain (Acute) Dental caries (Acute) Nicotine dependence (Acute) Dyspnea on exertion (Acute) Shortness of breath (Acute) Hypercholesterolemia (Chronic 09/07/14) pt insists on lipitor 80 mg due to family hx Depression (Acute 10/02/14) Left-sided chest wall pain (Acute) Chest pain (Acute) Chronic headache (Acute) Migraine headache without aura (Acute) Migraine (Chronic) Poor dentition (Acute) Tobacco use disorder (Chronic) started 2013 1.5 ppd, pipe 1-7/week, QUIT LATE OCT 2021 Allergic rhinitis (Chronic) lortadine Hiatal hernia (Chronic) protonix not effective, nexium works better 02/12/18 Anemia (Chronic) Broken teeth (Chronic) Drug-seeking behavior (Chronic ~09/20/21) Requests Ritalin from providers Medication overuse headache (Acute) Medical History Obesity BMI 52 Hypertension pt requests brand name Tenormin vs atenolol 04/02/18 GERD (gastroesophageal reflux disease) (09/07/14) Diabetes mellitus type 2 in obese (09/09/14) Hypothyroidism (acquired) (09/07/14) Schizoaffective disorder (09/07/14) Rebekah Mariscal YENI 09/2014- [facility] inpatient Trigeminal neuralgia Anxiety Mitral valve prolapse Hyperlipidemia Peripheral neuropathy Surgical History No significant past surgical history Family History Father Heart disease [place] Social History Smoking/Tobacco Use Status: Former Tobacco Use Smoking risk assessment performed?: Yes Alcohol Intake: never Drug use: Never Substance use type: does not use Adopted: No Caregiver/Support person: No Foster care: No Household members: none Housing: apartment Number of Children: 2 number of grandchildren: 1 Communication Needs: Corrective Lenses Education Level: college Do you need help understanding health information?: Always current occupation: Unemployed/Leave of absence Sexually active: No Do you think of yourself as: Decline to provide Current gender identity: male What type of physical activity do you participate in: other Details: weight lifting Frequency: 3-4 times per week Magalie/Mosque: Confucianism Seatbelt use: always Drive intox or ride w/intox sprinkler 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
== END 2024-04-13 14:51 | disposition home or self-care (01) ==
PROVIDERS: Emergency Provider Physician Assistant; PCP Family Medicine
DX: R07.89 Other chest pain (principal); R11.0 Nausea; E11.9 Type 2 diabetes mellitus without complications; E03.9 Hypothyroidism, unspecified; I10 Essential (primary) hypertension; E78.5 Hyperlipidemia, unspecified; R00.1 Bradycardia, unspecified; K21.9 Gastro-esophageal reflux disease without esophagitis
CPT/HCPCS: 80053; 83690; 93005; 99284; 83735; 84484; 85025; 93010; 99283

== ENCOUNTER 2024-04-27 09:36 | Emergency (ER) | payer MEDICAID, SELFPAY ==
[2024-04-27] VITALS (16 sets, daily range): BP systolic 119–141; BP diastolic 54–65; PULSE 60–66; RESP 20; TEMP 36.7; O2SAT 94–96
--- NOTE | 2024-04-27 09:30 | RT.EKG_ITS ---
APPROVED REPORT Exam: Resting ECG Reason for Exam: vomiting Patient Location: E HR:66 bpm ECG Measurements Heart Rate 66 AXIS ND 191 P 38 QRSd 103 QRS 51 QT 432 T 20 QTc 454 Conclusion Sinus rhythm...normal P axis, V-rate 60- 99 Physician: no stemi
[2024-04-27 10:17] LABS: Abs Immature Grans 0.01 10^3/uL (0.0-0.06); Absolute Basophil Count 0.01 10^3/uL (0.0-0.2); Absolute Lymphocyte Count 1.17 10^3/uL (1.2-3.4); Absolute Monocyte Count 0.45 10^3/uL (0.1-0.8); Absolute Neutrophil Count 2.82 10^3/uL (1.2-6.7); Basophils % 0.2 %; Eosinophils % 2.2 %; HCT 30.5 % (40.0-50.0); HGB 10.8 g/dL (13.5-17.5); Immature Grans % 0.2 %; Lymphocytes % 25.7 %; MCH 32.8 pg (27.0-33.0); MCHC 35.4 % (32.0-36.0); MCV 93 fL (80-95); MPV 9.2 fL (8.0-11.0); Monocytes % 9.9 %; Neutrophils % 61.8 %; RBC 3.29 10^6/uL (4.36-5.78); RDW 11.9 % (11.8-14.1); RDW-SD 40.2 fL; WBC 4.56 10^3/uL (4.4-10.8)
--- NOTE | 2024-04-27 10:17 | W.ED.GENAD ---
Discharge Plan Disposition Patient Disposition: Home Condition: Good Discharge Details Chief Complaint: Abd Prob Clinical Impression: Nausea & vomiting Primary Care Provider: Brandon Foster ED Provider: Froilan Iraheta Home Meds and New Rx's Prescriptions: No Action gabapentin 300 mg capsule 300 mg PO QID Claritin Liqui-Gel 10 MG capsule 1 cap PO DAILY Qty: 90 Emgality Pen 120 mg/mL pen injector 120 mg subcut QMONTH Qty: 1 4RF multivitamin Tablet 1 tab PO DAILY metformin 500 mg tablet 1 tab PO BID clonazepam 0.5 mg tablet See Rx Instructions .ROUTE .COMPLEX Rx Instructions: 1 tab in AM, 1 tab at Noon and 2 tab QHS ondansetron 4 mg tablet,disintegrating 4 mg PO Q8H PRNQty: 10 0RF triamcinolone acetonide 0.1 % ointment 1 applic TOPICAL BID Patient Comments: Apply 1 a small amount to skin twice a day as needed as directed simvastatin 80 mg tablet 80 mg PO DAILY Patient Comments: Take 1 tablet by mouth once a day benztropine 0.5 MG tablet 0.5 mg PO BID aspirin,buffd-calcium carb-mag 325 MG tablet 325 mg PO DAILY lactulose 10 gram/15 mL solution 20 g PO DIRECTED PRN Patient Comments: TAKE ONE TO TWO TABLESPOONS BY MOUTH NEEDED WHEN 3 DAYS PASS WITHOUT BOWEL MOVEMENT albuterol sulfate 90 mcg/actuation aerosol powdr breath activated 2 inh IH Q6H PRN (Reason: shortness of breath or wheezing) Qty: 1 0RF simvastatin 40 mg tablet 80 mg PO DAILY fluoxetine 40 mg capsule 80 mg PO DAILY atenolol 25 mg tablet 75 mg PO DAILY Patient Comments: Take 3 tablet by mouth once a day Invega Sustenna 117 mg/0.75 mL syringe 117 mg IM Q30D divalproex [Depakote ER] 500 mg tablet extended release 24 hr 1,000 mg PO BID omeprazole 40 mg capsule,delayed release(DR/EC) 40 mg PO DAILY Patient Comments: TAKE 1 CAPSULE BY MOUTH DAILY FOR HEARTBURN Discharge Instructions Instructions: Nausea and Vomiting, Adult ED Additional Instructions: At this time your laboratory workup is returned stable. Please drink plenty fluids and stay well-hydrated. Please take the Zofran as needed for nausea and vomiting. If you notice any worsening of your symptoms, or any new symptoms such as vomiting, diarrhea, fever, chills, shortness of breath, chest pain, numbness, weakness, or fainting , please return immediately to the emergency department for reevaluation. Please follow up with your primary care provider as soon as possible for reassessment and reevaluation. As always, it was a pleasure participating in your medical care today. Referrals: Brandon Foster [Primary Care Provider] - [facility] General Date/Time Provider Initiated Documentation: 04/27/24 09:42. HPI Narrative: This is a 59-year-old male with a past medical history of anxiety, depression, type 2 diabetes, high cholesterol, obesity, schizoaffective disorder, hypothyroidism, presents today for evaluation of nausea and vomiting. Patient states that starting at 3 to 4 AM he felt nauseous and then had 1 episode of vomiting and 1 episode of loose stool. He denies any significant abdominal pain. He denies any chest pain or shortness of breath. He denies any blood in his stool or vomit. He has not been able to eat or drink since then. No other complaints at this time. To me he denies any surgical history at this time. Related Data Home Medications Medication Instructions Recorded Confirmed loratadine 10 mg capsule (Claritin 1 cap PO DAILY #90 tabs 12/16/14 04/27/24 Liqui-Gel) aspirin,buffered (calcium 325 mg PO DAILY 11/18/16 04/27/24 carbonate-magnesium) 325 mg tablet benztropine 0.5 mg tablet 0.5 mg PO BID 11/18/16 04/27/24 lactulose 10 gram/15 mL oral 20 g PO DIRECTED PRN 10/03/20 04/27/24 solution albuterol sulfate 90 mcg/actuation 2 inh inhalation Q6H PRN shortness 12/15/20 04/27/24 breath activated powder inhaler of breath or wheezing #1 ea multivitamin 1 tab PO DAILY 01/26/21 04/27/24 metformin 500 mg tablet 1 tab PO BID 03/18/22 04/27/24 clonazepam 0.5 mg tablet See Rx Instructions .Route .COMPLEX 03/04/23 04/27/24 fluoxetine 40 mg capsule 80 mg PO DAILY 03/08/23 04/27/24 gabapentin 300 mg capsule 300 mg PO QID 03/27/23 04/27/24 simvastatin 40 mg tablet 80 mg PO DAILY 03/27/23 04/27/24 ondansetron 4 mg disintegrating 4 mg PO Q8H PRN #10 tabs 11/30/23 04/27/24 tablet atenolol 25 mg tablet 75 mg PO DAILY 01/31/24 04/27/24 divalproex 500 mg tablet,extended 1,000 mg PO BID 01/31/24 04/27/24 release 24 hr (Depakote ER) omeprazole 40 mg capsule,delayed 40 mg PO DAILY 01/31/24 04/27/24 release paliperidone palmitate 117 mg/0.75 117 mg IM Q30D 01/31/24 04/27/24 mL intramuscular syringe ([employer]) triamcinolone acetonide 0.1 % 1 applic topical BID 03/06/24 04/27/24 topical ointment simvastatin 80 mg tablet 80 mg PO DAILY 03/08/24 04/27/24 galcanezumab-gnlm 120 mg/mL 120 mg subcut QMONTH #1 mL 03/19/24 04/27/24 subcutaneous pen injector (Emgality Pen) Previous Rx's Medication Instructions Recorded albuterol sulfate 90 mcg/actuation 2 inh inhalation Q6H PRN shortness 12/15/20 breath activated powder inhaler of breath or wheezing #1 ea ondansetron 4 mg disintegrating 4 mg PO Q8H PRN #10 tabs 11/30/23 tablet galcanezumab-gnlm 120 mg/mL 120 mg subcut QMONTH #1 mL 03/19/24 subcutaneous pen injector (Emgality Pen) Allergies Allergy/AdvReac Type Severity Reaction Status Date / Time buspirone Allergy Other (See Verified 04/27/24 09:43 Comment) paliperidone Allergy Other (See Verified 04/27/24 09:43 Comment) paroxetine HCl [From Paxil] Allergy Other (See Verified 04/27/24 09:43 Comment) sertraline Allergy Other (See Verified 04/27/24 09:43 Comment) ziprasidone [From Geodon] Allergy Other (See Verified 04/27/24 09:43 Comment) aripiprazole [From Abilify] AdvReac Intermediate INVOLUNTARY Verified 04/27/24 09:43 MUSCLE MOVEMENTS mirtazapine AdvReac Intermediate INVOLUNTARY Verified 04/27/24 09:43 MUSCLE MOVEMENTS risperidone AdvReac Intermediate INVOLUNTARY Verified 04/27/24 09:43 MUSCLE MOVEMENTS enviornmental Allergy Mild Wheezing Uncoded 04/27/24 09:43 General Stated Complaint: Abd Prob CARLOS: 3 Review of Systems All systems reviewed & are unremarkable except as noted in HPI and below Exam Narrative Exam Narrative: 1.Const: Well-nourished, Well-developed, appearing stated age 2.Eyes: PERRL, no conjunctival injection, and symmetrical lids. 3.ENT: Atraumatic external nose and ears. Moist MM. Neck: Symmetric, trachea midline, No thyromegaly. 4.CVS: +S1/S2, No murmurs or gallops. Peripheral pulses 2+ and equal in all extremities. Brisk capillary refill in all extremities. 5.RESP: Unlabored respiratory effort. Clear to auscultation bilaterally. No wheezes rales or rhonchi 6.GI: Soft, Nontender/Nondistended, No hepatosplenomegaly. No guarding or rebound. No pain at McBurney's point, negative Poole sign. No abdominal tenderness whatsoever on palpation 7.MSK: Normocephalic/Atraumatic, Extremities w/o deformity or ttp No cyanosis or clubbing, Normal movement of all extremities 8.Skin: Warm, Dry. No rashes or lesions. 9.Neuro: children's ministries director II-XII grossly intact. Sensation grossly intact, no focal neurologic deficits. 10.Psych: (AAO) x3. Appropriate mood and affect Course Vital Signs Vital signs: Vital Signs Temperature 36.7 C 04/27/24 09:41 Pulse 65 04/27/24 09:41 Respiratory Rate 20 04/27/24 09:41 Blood Pressure 141/63 H 04/27/24 09:41 Pulse Oximetry 94 04/27/24 09:41 Temperature 36.7 C 04/27/24 09:41 Temperature Source Oral 04/27/24 09:41 Pulse 65 04/27/24 09:41 Respiratory Rate 20 04/27/24 09:41 Blood Pressure 141/63 H 04/27/24 09:41 Blood Pressure Position Sitting 04/27/24 09:41 Pulse Oximetry 94 04/27/24 09:41 Oxygen Delivery Method Room Air 04/27/24 09:41 Oxygen Flow Rate 0 04/27/24 09:41 Medical Decision Making This is a 59-year-old male with a past medical history of anxiety, depression, type 2 diabetes, high cholesterol, obesity, schizoaffective disorder, hypothyroidism, presents today for evaluation of nausea and vomiting. Patient states that starting at 3 to 4 AM he felt nauseous and then had 1 episode of vomiting and 1 episode of loose stool. He denies any significant abdominal pain. He denies any chest pain or shortness of breath. He denies any blood in his stool or vomit. He has not been able to eat or drink since then. No other complaints at this time. To me he denies any surgical history at this time. Exam demonstrates well-appearing male, no abdominal pain whatsoever on palpation. No guarding or rebound. No evidence of an acute surgical abdomen whatsoever. EKG is benign. Vital signs stable, no tachycardia. Mucous membranes are moist, but with this episode of vomiting and suspect minimal dehydration. Currently we had a catastrophic CAT scan malfunction last night so no current CAT scan is available. That being said with the patient's current symptomatology I do not see an indication for emergent CT I did offer to transfer the patient to another outlying facility for CT imaging but he has declined this. We will give Zofran, Bentyl, check the patient's labs, evaluate for pancreatitis, gently rehydrate, monitor closely and reassess. 11:46 AM Laboratory workup is returned, lipase normal electrolytes normal, no white count bandemia or left shift. On reassessment patient feels well. Repeat exam shows no abdominal pain or tenderness whatsoever. Nausea has resolved, he feels well and would like to go home. He did a p.o. trial, and he tolerated p.o. well without any difficulty. Patient will be discharged with Zofran for home use. No indication for emergent CT imaging at this time. Discussed red flags for which to return. Cardiac etiologies benign. I have extensively reviewed the treatment plan and discharge instructions with the patient. I have addressed all patient concerns at this time. The patient was made aware of what symptoms to monitor for that would warrant a return to the emergency department. Discussed the plan with the patient, they demonstrate verbal understanding and agreement with our assessment and plan at this time. The documentation in this chart was dictated using [employer] dictation software. Please excuse any dictation errors. Quality:SDOH Health Related Social Needs: Health related social needs food insecurity PFSH All Active Problems (Updated 04/27/24 @ 11:37 by Froilan Iraheta DO) Nausea & vomiting (Acute) Atypical chest pain (Acute) Chest pain (Acute) Dental caries (Acute) Nicotine dependence (Acute) Dyspnea on exertion (Acute) Shortness of breath (Acute) Hypercholesterolemia (Chronic 09/07/14) pt insists on lipitor 80 mg due to family hx Depression (Acute 10/02/14) Left-sided chest wall pain (Acute) Chest pain (Acute) Chronic headache (Acute) Migraine headache without aura (Acute) Migraine (Chronic) Poor dentition (Acute) Tobacco use disorder (Chronic) started 2013 1.5 ppd, pipe 1-7/week, QUIT LATE OCT 2021 Allergic rhinitis (Chronic) lortadine Hiatal hernia (Chronic) protonix not effective, nexium works better 02/12/18 Anemia (Chronic) Broken teeth (Chronic) Drug-seeking behavior (Chronic ~09/20/21) Requests Ritalin from providers Medication overuse headache (Acute) Medical History Obesity BMI 52 Hypertension pt requests brand name Tenormin vs atenolol 04/02/18 GERD (gastroesophageal reflux disease) (09/07/14) Diabetes mellitus type 2 in obese (09/09/14) Hypothyroidism (acquired) (09/07/14) Schizoaffective disorder (09/07/14) Rebekah Mariscal [facility] 09/2014- [facility] inpatient Trigeminal neuralgia Anxiety Mitral valve prolapse Hyperlipidemia Peripheral neuropathy Surgical History No significant past surgical history Family History Father Heart disease [place] Social History Smoking/Tobacco Use Status: Former Tobacco Use Smoking risk assessment performed?: Yes Alcohol Intake: never Drug use: Never Substance use type: does not use Adopted: No Caregiver/Support person: No Foster care: No Household members: none Housing: apartment Number of Children: 2 number of grandchildren: 1 Communication Needs: Corrective Lenses Education Level: college Do you need help understanding health information?: Always current occupation: Unemployed/Leave of absence Sexually active: No Do you think of yourself as: Decline to provide Current gender identity: male What type of physical activity do you participate in: other Details: weight lifting Frequency: 3-4 times per week Magalie/Mandaeism: Mandaeism Seatbelt use: always Drive intox or ride w/intox commercial relief 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
[2024-04-27] MEDS: Dicyclomine 20 MG TAB PO (10:18)
[2024-04-27] MEDS: Normal Saline 500 ML IV (10:18)
[2024-04-27] MEDS: Ondansetron 4 MG/2 ML VIAL IVP (10:19)
[2024-04-27 10:49] LABS: Diff Comment Diff Reviewed; Platelet Count 90 10^3/uL (130-400); RBC Morphology Normal
[2024-04-27 10:50] LABS: ALT 15 U/L (16-63); AST 11 U/L (15-37); Albumin 3.2 g/dL (3.4-5.0); Alkaline Phosphatase 48 U/L (46-116); Anion Gap 10.1 mmol/L (3-11); BUN 12 mg/dL (7-18); Bilirubin, Total 0.35 mg/dL (0.2-1.0); CO2 26.9 mmol/L (21.0-32.0); Calcium 8.6 mg/dL (8.5-10.1); Chloride 98 mmol/L (98-107); Glucose 132 mg/dL (74-106); Lipase 10 U/L (16-77); Potassium 4.1 mmol/L (3.5-5.1); Sodium 135 mmol/L (136-145); Total Protein 7.2 g/dL (6.4-8.2); Troponin I < 50 ng/L (< or =60)
[2024-04-27] MEDS: Ondansetron O.D.T. 4 MG TABEF, 3 TABS/BTL PO (11:45)
== END 2024-04-27 11:48 | disposition home or self-care (01) ==
PROVIDERS: Emergency Provider Student in an Organized Health Care Education/Training Program; PCP Family Medicine
DX: R10.9 Unspecified abdominal pain (principal); R11.2 Nausea with vomiting, unspecified; R19.7 Diarrhea, unspecified; E11.9 Type 2 diabetes mellitus without complications; I10 Essential (primary) hypertension; E78.5 Hyperlipidemia, unspecified; Z79.84 Long term (current) use of oral hypoglycemic drugs; Z87.891 Personal history of nicotine dependence
CPT/HCPCS: 80053; 83690; 93005; 96360; 99284; 84484; 85025; 93010; 99283; J2405

== ENCOUNTER 2024-05-29 01:19 | Emergency (ER) | payer MEDICAID, SELFPAY ==
--- NOTE | 2024-05-29 01:15 | DI.CT_ITS ---
Exam(s) CT HEAD WO EXAM: CT HEAD WO CLINICAL HISTORY: headache, r/o mass. TECHNIQUE: Imaging Protocol: Axial computed tomography images with coronal and sagittal reformatted images were created and reviewed COMPARISON: CT CT HEAD WO from 04/12/[address] HEAD WO from 03/05/2022 FINDINGS: Ventricles and Extra axial spaces: Normal in size and morphology for the patient's age. Hemorrhage: None. Cerebral parenchyma: Normal. No mass effect or acute territorial infarct is identified at this time. Midline shift: None. Brainstem/Cerebellum: Normal. Calvarium: Normal. Visualized Paranasal sinuses/Mastoids: Clear. Soft Tissues: Unremarkable. Partial visualization of a hyperdense mass like object is seen in the lef t aspect of the mouth. This may reflect material in the oral cavity such as gum. Clinical correlati on is recommended. IMPRESSION: No acute intracranial process. RADIATION DOSE DELIVERED: Total DLP DATA REPOSITORY: All CT scans at this facility are submitted to the National Radiology Data Registry (NRDR) Dose Index Registry (DIR) with the [employer] (ACR). RADIATION OPTIMIZATION: All CT scans at this facility use at least one of these dose optimization te chniques: automated exposure control; mA and/or kV adjustment per patient size (includes targeted exa ms where dose is matched to clinical indication); or iterative reconstruction.
[2024-05-29 01:18] VITALS: BP 170/107; PULSE 78; RESP 18; TEMP 36.1; O2SAT 95
[2024-05-29] MEDS: methylPREDNISolone SUCC 125 MG VIAL IVP (01:39)
[2024-05-29] MEDS: Meclizine 25 MG TAB 50 MG PO (01:39)
[2024-05-29] MEDS: Acetaminophen 500 MG TAB 1000 MG PO (01:39)
[2024-05-29] MEDS: Prochlorperazine 10 MG/2 ML VIAL IVP (01:40)
[2024-05-29] MEDS: Normal Saline 500 ML IV (01:40)
[2024-05-29 01:44] LABS: Abs Immature Grans 0.03 10^3/uL (0.0-0.06); Absolute Basophil Count 0.02 10^3/uL (0.0-0.2); Absolute Lymphocyte Count 1.28 10^3/uL (1.2-3.4); Absolute Monocyte Count 0.47 10^3/uL (0.1-0.8); Basophils % 0.4 %; Eosinophils % 2.2 %; HCT 34.2 % (40.0-50.0); HGB 11.7 g/dL (13.5-17.5); Immature Grans % 0.7 %; Lymphocytes % 28.4 %; MCH 32.2 pg (27.0-33.0); MCHC 34.2 % (32.0-36.0); MCV 94 fL (80-95); MPV 8.9 fL (8.0-11.0); Monocytes % 10.4 %; Neutrophils % 57.9 %; RBC 3.63 10^6/uL (4.36-5.78); RDW 12.6 % (11.8-14.1); RDW-SD 43.5 fL
[2024-05-29 01:45] LABS: Platelet Count 104 10^3/uL (130-400)
[2024-05-29 02:03] LABS: ALT 18 U/L (16-63); AST 11 U/L (15-37); Albumin 3.5 g/dL (3.4-5.0); Alkaline Phosphatase 51 U/L (46-116); Anion Gap 8.2 mmol/L (3-11); BUN 12 mg/dL (7-18); Bilirubin, Total 0.33 mg/dL (0.2-1.0); CO2 28.8 mmol/L (21.0-32.0); CREATININE 0.9 mg/dL (0.70-1.30); Calcium 8.7 mg/dL (8.5-10.1); Chloride 101 mmol/L (98-107); Estimated GFR 98.38 (mL/min/1.73m2); Glucose 113 mg/dL (74-106); Potassium 4.3 mmol/L (3.5-5.1); Sodium 138 mmol/L (136-145); Total Protein 7.8 g/dL (6.4-8.2)
--- NOTE | 2024-05-29 02:40 | W.ED.GENAD ---
Discharge Plan Disposition Patient Disposition: Home Condition: Good Discharge Details Chief Complaint: Headache Clinical Impression: Headache Primary Care Provider: Brandon Foster ED Provider: Froilan Iraheta Home Meds and New Rx's Prescriptions: No Action gabapentin 300 mg capsule 300 mg PO QID Claritin Liqui-Gel 10 MG capsule 1 cap PO DAILY Qty: 90 Emgality Pen 120 mg/mL pen injector 120 mg subcut QMONTH Qty: 1 4RF multivitamin Tablet 1 tab PO DAILY metformin 500 mg tablet 1 tab PO BID clonazepam 0.5 mg tablet See Rx Instructions .ROUTE .COMPLEX Rx Instructions: 1 tab in AM, 1 tab at Noon and 2 tab QHS ondansetron 4 mg tablet,disintegrating 4 mg PO Q8H PRNQty: 10 0RF triamcinolone acetonide 0.1 % ointment 1 applic TOPICAL BID Patient Comments: Apply 1 a small amount to skin twice a day as needed as directed simvastatin 80 mg tablet 80 mg PO DAILY Patient Comments: Take 1 tablet by mouth once a day benztropine 0.5 MG tablet 0.5 mg PO BID aspirin,buffd-calcium carb-mag 325 MG tablet 325 mg PO DAILY lactulose 10 gram/15 mL solution 20 g PO DIRECTED PRN Patient Comments: TAKE ONE TO TWO TABLESPOONS BY MOUTH NEEDED WHEN 3 DAYS PASS WITHOUT BOWEL MOVEMENT albuterol sulfate 90 mcg/actuation aerosol powdr breath activated 2 inh IH Q6H PRN (Reason: shortness of breath or wheezing) Qty: 1 0RF fluoxetine 40 mg capsule 80 mg PO DAILY atenolol 25 mg tablet 75 mg PO DAILY Patient Comments: Take 3 tablet by mouth once a day Invega Sustenna 117 mg/0.75 mL syringe 117 mg IM Q30D divalproex [Depakote ER] 500 mg tablet extended release 24 hr 1,000 mg PO BID omeprazole 40 mg capsule,delayed release(DR/EC) 40 mg PO DAILY Patient Comments: TAKE 1 CAPSULE BY MOUTH DAILY FOR HEARTBURN Discharge Instructions Instructions: Headache, Adult ED Additional Instructions: At this time your CAT scan and workup shows no significant abnormalities. If you notice any worsening of your symptoms, or any new symptoms such as vomiting, diarrhea, fever, chills, shortness of breath, chest pain, numbness, weakness, or fainting , please return immediately to the emergency department for reevaluation. Please follow up with your primary care provider as soon as possible for reassessment and reevaluation. As always, it was a pleasure participating in your medical care today. Referrals: Brandon Foster [Primary Care Provider] - [facility] General Date/Time Provider Initiated Documentation: 05/29/24 01:24. [facility] Narrative: This is a 59-year-old male with a past medical history of anxiety, depression, type 2 diabetes, high cholesterol, obesity, schizoaffective disorder, hypothyroidism, chronic headaches, presents today for evaluation of headache. Patient states that about 30 minutes prior to arrival he developed a mild headache which made him slightly dizzy. He describes the pain as mild and achy the sides of his head to the back of his eyes which she describes as a mild pressure. No vision changes. He does admit to mild dizziness when he gets up and walks around. He denies any syncope. He denies any chest pain or shortness of breath. He denies any lightheadedness. He does admit to mild nausea but no vomiting. He states that the headache feels identical to his previous headaches. He did not take any medication prior to calling EMS. No other complaints at this time. No other modifying factors. Related Data Home Medications ?Medication ?Instructions ?Recorded ?Confirmed loratadine 10 mg capsule (Claritin 1 cap PO DAILY #90 tabs 12/16/14 05/29/24 Liqui-Gel) aspirin,buffered (calcium 325 mg PO DAILY 11/18/16 05/29/24 carbonate-magnesium) 325 mg tablet benztropine 0.5 mg tablet 0.5 mg PO BID 11/18/16 05/29/24 lactulose 10 gram/15 mL oral 20 g PO DIRECTED PRN 10/03/20 05/29/24 solution albuterol sulfate 90 mcg/actuation 2 inh inhalation Q6H PRN shortness 12/15/20 05/29/24 breath activated powder inhaler of breath or wheezing #1 ea multivitamin 1 tab PO DAILY 01/26/21 05/29/24 metformin 500 mg tablet 1 tab PO BID 03/18/22 05/29/24 clonazepam 0.5 mg tablet See Rx Instructions .Route .COMPLEX 03/04/23 05/29/24 fluoxetine 40 mg capsule 80 mg PO DAILY 03/08/23 05/29/24 gabapentin 300 mg capsule 300 mg PO QID 03/27/23 05/29/24 ondansetron 4 mg disintegrating 4 mg PO Q8H PRN #10 tabs 11/30/23 05/29/24 tablet atenolol 25 mg tablet 75 mg PO DAILY 01/31/24 05/29/24 divalproex 500 mg tablet,extended 1,000 mg PO BID 01/31/24 05/29/24 release 24 hr (Depakote ER) omeprazole 40 mg capsule,delayed 40 mg PO DAILY 01/31/24 05/29/24 release paliperidone palmitate 117 mg/0.75 117 mg IM Q30D 01/31/24 05/29/24 mL intramuscular syringe (Shape Collage) triamcinolone acetonide 0.1 % 1 applic topical BID 03/06/24 05/29/24 topical ointment simvastatin 80 mg tablet 80 mg PO DAILY 03/08/24 05/29/24 galcanezumab-gnlm 120 mg/mL 120 mg subcut QMONTH #1 mL 03/19/24 05/29/24 subcutaneous pen injector (Emgality Pen) Previous Rx's ?Medication ?Instructions ?Recorded albuterol sulfate 90 mcg/actuation 2 inh inhalation Q6H PRN shortness 12/15/20 breath activated powder inhaler of breath or wheezing #1 ea ondansetron 4 mg disintegrating 4 mg PO Q8H PRN #10 tabs 11/30/23 tablet galcanezumab-gnlm 120 mg/mL 120 mg subcut QMONTH #1 mL 03/19/24 subcutaneous pen injector (Emgality Pen) Allergies Allergy/AdvReac Type Severity Reaction Status Date / Time buspirone Allergy Other (See Verified 05/29/24 01:21 Comment) paliperidone Allergy Other (See Verified 05/29/24 01:21 Comment) paroxetine HCl (From Paxil) Allergy Other (See Verified 05/29/24 01:21 Comment) sertraline Allergy Other (See Verified 05/29/24 01:21 Comment) ziprasidone (From Geodon) Allergy Other (See Verified 05/29/24 01:21 Comment) aripiprazole (From Abilify) AdvReac Intermediate INVOLUNTARY Verified 05/29/24 01:21 MUSCLE MOVEMENTS mirtazapine AdvReac Intermediate INVOLUNTARY Verified 05/29/24 01:21 MUSCLE MOVEMENTS risperidone AdvReac Intermediate INVOLUNTARY Verified 05/29/24 01:21 MUSCLE MOVEMENTS enviornmental Allergy Mild Wheezing Uncoded 05/29/24 01:21 General Stated Complaint: Headache CARLOS: 3 Review of Systems All systems reviewed & are unremarkable except as noted in HPI and below Exam Narrative Exam Narrative: 1.Const: Well-nourished, Well-developed, appearing stated age 2.Eyes: PERRL, no conjunctival injection, and symmetrical lids. 3.ENT: Atraumatic external nose and ears. Moist MM. Neck: Symmetric, trachea midline, No thyromegaly. 4.CVS: +S1/S2, No murmurs or gallops. Peripheral pulses 2+ and equal in all extremities. Brisk capillary refill in all extremities. 5.RESP: Unlabored respiratory effort. Clear to auscultation bilaterally. No wheezes rales or rhonchi 6.GI: Soft, Nontender/Nondistended, No hepatosplenomegaly. No guarding or rebound. 7.MSK: Normocephalic/Atraumatic, Extremities w/o deformity or ttp No cyanosis or clubbing, Normal movement of all extremities 8.Skin: Warm, Dry. No rashes or lesions. 9.Neuro: sportspersons II-XII grossly intact. Sensation grossly intact, no focal neurologic deficits. All 6 cardinal planes of vision are fully intact. No evidence of rotatory or vertical nystagmus. The patient demonstrated a normal qwvvns-gbgl-pzproe, good dexterity. There was no evidence of dysdiadochokinesia. Patient was able to ambulate without difficulty. There was no wide-based gait. Romberg testing was normal. Wivc-ca-rfuz testing was normal. Sensation was intact bilaterally as well as muscle strength bilaterally for all extremities. Patient was able to verbalize butter cup with no slurring, or miss pronunciation. Cerebellar function testing is normal. The patient demonstrates a normal hints exam with no findings concerning for a central event. No vertical nystagmus. The head impulse test is negative for any significant central abnormality. Normal test of skew. No suggestion of a central cerebellar event. 10.Psych: (AAO) x3. Appropriate mood and affect Course Vital Signs Vital signs: Vital Signs Temperature 36.1 C L 05/29/24 01:18 Pulse 78 05/29/24 01:18 Respiratory Rate 18 05/29/24 01:18 Blood Pressure 170/107 H 05/29/24 01:18 Pulse Oximetry 95 05/29/24 01:18 Temperature 36.1 C L 05/29/24 01:18 Temperature Source Temporal Artery Scan 05/29/24 01:18 Pulse 78 05/29/24 01:18 Respiratory Rate 18 05/29/24 01:18 Respiratory Effort Normal, Non-Labored 05/29/24 01:21 Blood Pressure 170/107 H 05/29/24 01:18 Blood Pressure Position Sitting 05/29/24 01:18 Pulse Oximetry 95 05/29/24 01:18 Oxygen Delivery Method Room Air 05/29/24 01:18 Oxygen Flow Rate 0 05/29/24 01:18 Pain Level 8 05/29/24 01:23 Lab/Test Results Lab/Test Results: Laboratory Tests Range/Units 05/29/24 01:36 WBC (4.4-10.8) 10^3/uL 4.50 RBC (4.36-5.78) 10^6/uL 3.63 L Hgb (13.5-17.5) g/dL 11.7 L Hct (40.0-50.0) % 34.2 L MCV (80-95) fL 94 MCH (27.0-33.0) pg 32.2 MCHC (32.0-36.0) % 34.2 RDW (11.8-14.1) % 12.6 Plt Count (130-400) 10^3/uL 104 L MPV (8.0-11.0) fL 8.9 Immature Gran % % 0.7 Neutrophils % % 57.9 Lymphocytes % % 28.4 Monocytes % % 10.4 Eosinophils % % 2.2 Basophils % % 0.4 Nucleated RBC % (0.0-0.3) % 0.0 Absolute Neutrophils (1.2-6.7) 10^3/uL 2.60 Absolute Lymphocytes (1.2-3.4) 10^3/uL 1.28 Absolute Monocytes (0.1-0.8) 10^3/uL 0.47 Absolute Eosinophils (0.0-0.7) 10^3/uL 0.10 Absolute Basophils (0.0-0.2) 10^3/uL 0.02 Sodium (136-145) mmol/L 138 Potassium (3.5-5.1) mmol/L 4.3 Chloride (98-107) mmol/L 101 Carbon Dioxide (21.0-32.0) mmol/L 28.8 Anion Gap (3-11) mmol/L 8.2 BUN (7-18) mg/dL 12 Creatinine (0.70-1.30) mg/dL 0.9 Est GFR (CKD-EPI 2020) (mL/min/1.73m2) 98.38 Glucose (74-106) mg/dL 113 H Calcium (8.5-10.1) mg/dL 8.7 Total Bilirubin (0.2-1.0) mg/dL 0.33 AST (15-37) U/L 11 L ALT (16-63) U/L 18 Alkaline Phosphatase (46-116) U/L 51 Total Protein (6.4-8.2) g/dL 7.8 Albumin (3.4-5.0) g/dL 3.5 Medical Decision Making This is a 59-year-old male with a past medical history of anxiety, depression, type 2 diabetes, high cholesterol, obesity, schizoaffective disorder, hypothyroidism, chronic headaches, presents today for evaluation of headache. Patient states that about 30 minutes prior to arrival he developed a mild headache which made him slightly dizzy. He describes the pain as mild and achy the sides of his head to the back of his eyes which she describes as a mild pressure. No vision changes. He does admit to mild dizziness when he gets up and walks around. He denies any syncope. He denies any chest pain or shortness of breath. He denies any lightheadedness. He does admit to mild nausea but no vomiting. He states that the headache feels identical to his previous headaches. He did not take any medication prior to calling EMS. No other complaints at this time. No other modifying factors. Exam demonstrates well-appearing male, no horizontal vertical rotatory nystagmus, no ataxic gait, no neurologic deficit whatsoever. No nuchal rigidity or meningismus. Pupils are equal round reactive. No tenderness to palpation of the eyes. No evidence to suggest acute angle-closure glaucoma. No other abnormalities on exam. Suspect mild migraine. Will get a CT scan as he had not had one for the last 2 years. Will evaluate for any signs of bleed or tumor. Will give migraine cocktail, gently rehydrate monitor closely and reassess. Symptoms at this time appear clinically inconsistent with meningitis, ruptured aneurysm, or other life-threatening etiology. 5 AM Patient's headache has resolved, CT negative for acute process. Patient does have gum that he is currently chewing which was noted on CT imaging. He also does have multiple dental caries, and we discussed this with the patient he will follow-up with a dentist on an outpatient basis. Laboratory workup is benign. Headache is resolved after migraine cocktail. No evidence of neurologic deficit, chest pain significance, or symptoms suggestive of ACS. Patient otherwise stable for discharge. Suspect migraine headache. Discussed red flags for which to return. I have extensively reviewed the treatment plan and discharge instructions with the patient. I have addressed all patient concerns at this time. The patient was made aware of what symptoms to monitor for that would warrant a return to the emergency department. Discussed the plan with the patient, they demonstrate verbal understanding and agreement with our assessment and plan at this time. The documentation in this chart was dictated using Osurv dictation software. Please excuse any dictation errors. FINDINGS: Brain: No acute intracranial hemorrhage, mass-effect, midline shift, or extra-axial collection is seen. The joy-white matter differentiation is not optimally demonstrated but appears grossly preserved, as seen. There is mild symmetric parenchymal volume loss. Cerebral ventricles: The ventricular system and basilar cisterns appear appropriate in size and configuration. Paranasal sinuses: The paranasal sinuses appear well aerated. No air-fluid levels are seen. Mastoid air cells: The mastoid air cells appear well-aerated. Auditory system: The middle ear cavities appear clear. Soft tissue density material within the right external auditory canal probably represents cerumen; however, direct inspection is recommended for definitive evaluation. Orbital cavities: The globes and intraorbital structures appear grossly intact. Teeth: The teeth are only partially included in the field of view. There is poor dentition with numerous dental cavities. There is partial visualization of a 2.7 cm x 2.5 cm hyperdense masslike finding in the left aspect of the mouth. Chewing gum is suspected although clinical correlation is recommended. Bones: The bony calvarium appears intact. No depressed skull fracture is seen. Soft tissues: No significant scalp lesion is seen. IMPRESSION: 1. No acute intracranial abnormality seen. 2. Teeth only partially included in the field of view. Poor dentition. Numerous dental cavities. Follow up with a dentist is recommended. Thank you for allowing us to participate in the care of your patient. Dictated and Authenticated by: Harpreet Blood MD 05/29/2024 2:49 AM Eastern Time ([place] & [place]) Quality:SDOH Health Related Social Needs: Health related social needs food insecurity PFSH All Active Problems (Updated 05/29/24 @ 04:54 by Froilan Iraheta DO) Headache (Acute) Dental caries (Acute) Nicotine dependence (Acute) Dyspnea on exertion (Acute) Shortness of breath (Acute) Hypercholesterolemia (Chronic 09/07/14) pt insists on lipitor 80 mg due to family hx Depression (Acute 10/02/14) Left-sided chest wall pain (Acute) Chest pain (Acute) Chronic headache (Acute) Migraine headache without aura (Acute) Migraine (Chronic) Poor dentition (Acute) Tobacco use disorder (Chronic) started 2013 1.5 ppd, pipe 1-7/week, QUIT LATE OCT 2021 Allergic rhinitis (Chronic) lortadine Hiatal hernia (Chronic) protonix not effective, nexium works better 02/12/18 Anemia (Chronic) Broken teeth (Chronic) Drug-seeking behavior (Chronic ~09/20/21) Requests Ritalin from providers Medication overuse headache (Acute) Medical History Obesity BMI 52 Hypertension pt requests brand name Tenormin vs atenolol 04/02/18 GERD (gastroesophageal reflux disease) (09/07/14) Diabetes mellitus type 2 in obese (09/09/14) Hypothyroidism (acquired) (09/07/14) Schizoaffective disorder (09/07/14) Rebekah Mariscal [facility] 09/2014- [facility] inpatient Trigeminal neuralgia Anxiety Mitral valve prolapse Hyperlipidemia Peripheral neuropathy Surgical History No significant past surgical history Family History Father Heart disease AR Social History Smoking/Tobacco Use Status: Former Tobacco Use Smoking risk assessment performed?: Yes Alcohol Intake: never Drug use: Never Substance use type: does not use Adopted: No Caregiver/Support person: No Foster care: No Household members: none Housing: apartment Number of Children: 2 number of grandchildren: 1 Communication Needs: Corrective Lenses Education Level: college Do you need help understanding health information?: Always current occupation: Unemployed/Leave of absence Sexually active: No Do you think of yourself as: Decline to provide Current gender identity: male What type of physical activity do you participate in: other Details: weight lifting Frequency: 3-4 times per week Magalie/Orthodoxy: Sikhism Seatbelt use: always Drive intox or ride w/intox rolloff 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
--- NOTE | 2024-05-29 02:49 | DI.VRAD_ITS ---
PROCEDURE INFORMATION: Exam: CT Head Without Contrast Exam date and time: 05/29/2024 1:48 AM Age: 59 years old Clinical indication: Pain; Headache; Additional info: Headache, R/O mass TECHNIQUE: Imaging protocol: Computed tomography of the head without contrast. COMPARISON: CT HEAD WO 03/05/2022 7:45 PM FINDINGS: Brain: No acute intracranial hemorrhage, mass-effect, midline shift, or extra-axial collection is seen. The joy-white matter differentiation is not optimally demonstrated but appears grossly preserved, as seen. There is mild symmetric parenchymal volume loss. Cerebral ventricles: The ventricular system and basilar cisterns appear appropriate in size and configuration. Paranasal sinuses: The paranasal sinuses appear well aerated. No air-fluid levels are seen. Mastoid air cells: The mastoid air cells appear well-aerated. Auditory system: The middle ear cavities appear clear. Soft tissue density material within the right external auditory canal probably represents cerumen; however, direct inspection is recommended for definitive evaluation. Orbital cavities: The globes and intraorbital structures appear grossly intact. Teeth: The teeth are only partially included in the field of view. There is poor dentition with numerous dental cavities. There is partial visualization of a 2.7 cm x 2.5 cm hyperdense masslike finding in the left aspect of the mouth. Chewing gum is suspected although clinical correlation is recommended. Bones: The bony calvarium appears intact. No depressed skull fracture is seen. Soft tissues: No significant scalp lesion is seen. IMPRESSION: 1. No acute intracranial abnormality seen. 2. Teeth only partially included in the field of view. Poor dentition. Numerous dental cavities. Follow up with a dentist is recommended. Dictated and Authenticated by: Harpreet Blood MD. Ordering:GUERRERO Mcgovern MD
[2024-05-29 05:03] VITALS: BP 157/71; PULSE 64; RESP 16; O2SAT 95
[2024-05-29 06:34] VITALS: BP 162/90; PULSE 74; RESP 16; TEMP 36.4; O2SAT 96
== END 2024-05-29 06:34 | disposition home or self-care (01) ==
PROVIDERS: Emergency Provider Student in an Organized Health Care Education/Training Program; PCP Family Medicine
DX: R51.9 Headache, unspecified (principal); I10 Essential (primary) hypertension; E11.40 Type 2 diabetes mellitus with diabetic neuropathy, unspecified; E03.9 Hypothyroidism, unspecified; E78.5 Hyperlipidemia, unspecified; Z79.84 Long term (current) use of oral hypoglycemic drugs
CPT/HCPCS: 36415; 80053; 96361; 96374; 96375; 99285; 70450; 85025; 99284; J0780; J2919

== ENCOUNTER 2024-06-19 21:15 | Emergency (ER) | payer MEDICAID, SELFPAY ==
--- NOTE | 2024-06-19 21:00 | RT.EKG_ITS ---
APPROVED REPORT Exam: Resting ECG Reason for Exam: dizzy/headache Patient Location: E HR:76 bpm ECG Measurements Heart Rate 76 AXIS VA 179 P 40 QRSd 103 QRS 15 QT 393 T 82 QTc 443 Conclusion Sinus rhythm 76 no stemi
[2024-06-19 21:15] VITALS: BP 165/67; PULSE 76; RESP 18; TEMP 36; O2SAT 96
[2024-06-19] MEDS: Ketorolac 10 MG TAB PO (21:48)
[2024-06-19] MEDS: Magnesium Oxide 400 MG TAB PO (21:48)
[2024-06-19] MEDS: Meclizine 25 MG TAB PO (21:49)
[2024-06-19 21:53] VITALS: BP 165/67; PULSE 76; TEMP 36.7; O2SAT 96
[2024-06-19 22:16] VITALS: PULSE 74; RESP 15
[2024-06-19 22:20] VITALS: PULSE 73; RESP 17
--- NOTE | 2024-06-19 22:27 | W.ED.GENAD ---
Discharge Plan Disposition Patient Disposition: Home Discharge Details Clinical Impression: Headache Primary Care Provider: Brandon Foster ED Provider: Elvin Espana Home Meds and New Rx's Prescriptions: No Action gabapentin 300 mg capsule 300 mg PO QID Claritin Liqui-Gel 10 MG capsule 1 cap PO DAILY Qty: 90 Emgality Pen 120 mg/mL pen injector 120 mg subcut QMONTH Qty: 1 4RF multivitamin Tablet 1 tab PO DAILY metformin 500 mg tablet 1 tab PO BID clonazepam 0.5 mg tablet See Rx Instructions .ROUTE .COMPLEX Rx Instructions: 1 tab in AM, 1 tab at Noon and 2 tab QHS triamcinolone acetonide 0.1 % ointment 1 applic TOPICAL BID Patient Comments: Apply 1 a small amount to skin twice a day as needed as directed simvastatin 80 mg tablet 80 mg PO DAILY Patient Comments: Take 1 tablet by mouth once a day benztropine 0.5 MG tablet 0.5 mg PO BID aspirin,buffd-calcium carb-mag 325 MG tablet 325 mg PO DAILY lactulose 10 gram/15 mL solution 20 g PO DIRECTED PRN Patient Comments: TAKE ONE TO TWO TABLESPOONS BY MOUTH NEEDED WHEN 3 DAYS PASS WITHOUT BOWEL MOVEMENT albuterol sulfate 90 mcg/actuation aerosol powdr breath activated 2 inh IH Q6H PRN (Reason: shortness of breath or wheezing) Qty: 1 0RF fluoxetine 40 mg capsule 80 mg PO DAILY atenolol 25 mg tablet 75 mg PO DAILY Patient Comments: Take 3 tablet by mouth once a day Invega Sustenna 117 mg/0.75 mL syringe 117 mg IM Q30D divalproex [Depakote ER] 500 mg tablet extended release 24 hr 1,000 mg PO BID omeprazole 40 mg capsule,delayed release(DR/EC) 40 mg PO DAILY Patient Comments: TAKE 1 CAPSULE BY MOUTH DAILY FOR HEARTBURN promethazine 25 mg tablet 25 mg PO PRN PRN Patient Comments: Take 1 tablet by mouth three times a day as needed as directed for nausea Discharge Instructions Instructions: Headache, Adult ED Additional Instructions: start magnesium daily (400mg) to help with headaches HPI General Date/Time Provider Initiated Documentation: 06/19/24 21:21. Limitations to Documentation: no limitations. Information obtained by: patient. HPI Narrative: [age]-year-old gentleman with past medical history including schizophrenia, CAD, hypertension presents for evaluation of headache. He reports that he has been having some generalized headache, not associated with trauma. Having some dizziness. No vomiting. No weakness or difficulty with speech or walking. Tried some Tylenol prior to arrival without significant improvement or resolution of symptoms. Reports longstanding history of migraine headaches and has been seen in the emergency department for similar symptoms and had a recent head CT that was normal. He states that he is even followed with neurology for headaches previously. Related Data Home Medications ?Medication ?Instructions ?Recorded ?Confirmed loratadine 10 mg capsule (Claritin 1 cap PO DAILY #90 tabs 12/16/14 06/19/24 Liqui-Gel) aspirin,buffered (calcium 325 mg PO DAILY 11/18/16 06/19/24 carbonate-magnesium) 325 mg tablet benztropine 0.5 mg tablet 0.5 mg PO BID 11/18/16 06/19/24 lactulose 10 gram/15 mL oral 20 g PO DIRECTED PRN 10/03/20 06/19/24 solution albuterol sulfate 90 mcg/actuation 2 inh inhalation Q6H PRN shortness 12/15/20 06/19/24 breath activated powder inhaler of breath or wheezing #1 ea multivitamin 1 tab PO DAILY 01/26/21 06/19/24 metformin 500 mg tablet 1 tab PO BID 03/18/22 06/19/24 clonazepam 0.5 mg tablet See Rx Instructions .Route .COMPLEX 03/04/23 06/19/24 fluoxetine 40 mg capsule 80 mg PO DAILY 03/08/23 06/19/24 gabapentin 300 mg capsule 300 mg PO QID 03/27/23 06/19/24 atenolol 25 mg tablet 75 mg PO DAILY 01/31/24 06/19/24 divalproex 500 mg tablet,extended 1,000 mg PO BID 01/31/24 06/19/24 release 24 hr (Depakote ER) omeprazole 40 mg capsule,delayed 40 mg PO DAILY 01/31/24 06/19/24 release paliperidone palmitate 117 mg/0.75 117 mg IM Q30D 01/31/24 06/19/24 mL intramuscular syringe (Invega Sustenna) triamcinolone acetonide 0.1 % 1 applic topical BID 03/06/24 06/19/24 topical ointment simvastatin 80 mg tablet 80 mg PO DAILY 03/08/24 06/19/24 galcanezumab-gnlm 120 mg/mL 120 mg subcut QMONTH #1 mL 03/19/24 06/19/24 subcutaneous pen injector (Emgality Pen) promethazine 25 mg tablet 25 mg PO PRN PRN 06/19/24 06/19/24 Previous Rx's ?Medication ?Instructions ?Recorded albuterol sulfate 90 mcg/actuation 2 inh inhalation Q6H PRN shortness 12/15/20 breath activated powder inhaler of breath or wheezing #1 ea galcanezumab-gnlm 120 mg/mL 120 mg subcut QMONTH #1 mL 03/19/24 subcutaneous pen injector (Emgality Pen) Allergies Allergy/AdvReac Type Severity Reaction Status Date / Time buspirone Allergy Other (See Verified 06/19/24 21:19 Comment) paliperidone Allergy Other (See Verified 06/19/24 21:19 Comment) paroxetine HCl (From Paxil) Allergy Other (See Verified 06/19/24 21:19 Comment) sertraline Allergy Other (See Verified 06/19/24 21:19 Comment) ziprasidone (From Geodon) Allergy Other (See Verified 06/19/24 21:19 Comment) aripiprazole (From Abilify) AdvReac Intermediate INVOLUNTARY Verified 06/19/24 21:19 MUSCLE MOVEMENTS mirtazapine AdvReac Intermediate INVOLUNTARY Verified 06/19/24 21:19 MUSCLE MOVEMENTS risperidone AdvReac Intermediate INVOLUNTARY Verified 06/19/24 21:19 MUSCLE MOVEMENTS enviornmental Allergy Mild Wheezing Uncoded 06/19/24 21:19 General Stated Complaint: Headache CARLOS: 2 Exam Narrative Exam Narrative: Review of Systems: All systems reviewed & are unremarkable except as noted in HPI and below Well-developed, no acute distress NCAT PERRL, normal conjunctiva No nystagmus RRR Unlabored respiratory effort Nondistended abdomen Extremities w/o deformity, no cyanosis, no edema No rashes or lesions. no focal neurologic deficits normal strength and sensation throughout, normal gait, no ataxia, no dysmetria Appropriate mood and affect Course Vital Signs Vital signs: Vital Signs Temperature 36 C L 06/19/24 21:15 Pulse 76 06/19/24 21:15 Respiratory Rate 18 06/19/24 21:15 Blood Pressure 165/67 H 06/19/24 21:15 Pulse Oximetry 96 06/19/24 21:15 Temperature 36.7 C 06/19/24 21:53 Temperature Source Temporal Artery Scan 06/19/24 21:53 Pulse 76 06/19/24 21:53 Respiratory Rate 18 06/19/24 21:15 Respiratory Effort Normal 06/19/24 21:22 Blood Pressure 165/67 H 06/19/24 21:53 Blood Pressure Position Supine 06/19/24 21:15 Pulse Oximetry 96 06/19/24 21:53 Oxygen Delivery Method Room Air 06/19/24 21:53 Oxygen Flow Rate 0 06/19/24 21:53 Pain Level 8 06/19/24 21:53 Comment head 06/19/24 21:15 Medical Decision Making Evaluation of headache. Patient is neurologically intact. Not acute onset or associated with trauma. I have a low suspicion for an acute intracranial process. Patient did have recent PET/CT to evaluate ongoing headache and he is not new to having headaches. I do not feel repeat imaging is indicated for this patient. As he has no neurologic symptoms or concerns. The patient was provided with screening EKG this does not reveal any acute dysrhythmias or ischemic change. He was provided medications and reports symptom improvement. Recommend taking magnesium daily to help with chronic headaches. He states he will follow-up with neurology so that he can follow-up regarding this. Quality:SDOH Health Related Social Needs: Health related social needs food insecurity PFSH All Active Problems Headache (Acute) Dental caries (Acute) Nicotine dependence (Acute) Dyspnea on exertion (Acute) Shortness of breath (Acute) Hypercholesterolemia (Chronic 09/07/14) pt insists on lipitor 80 mg due to family hx Depression (Acute 10/02/14) Left-sided chest wall pain (Acute) Chest pain (Acute) Chronic headache (Acute) Migraine headache without aura (Acute) Migraine (Chronic) Poor dentition (Acute) Tobacco use disorder (Chronic) started 2013 1.5 ppd, pipe 1-7/week, QUIT LATE OCT 2021 Allergic rhinitis (Chronic) lortadine Hiatal hernia (Chronic) protonix not effective, nexium works better 02/12/18 Anemia (Chronic) Broken teeth (Chronic) Drug-seeking behavior (Chronic ~09/20/21) Requests Ritalin from providers Medication overuse headache (Acute) Medical History Obesity BMI 52 Hypertension pt requests brand name Tenormin vs atenolol 04/02/18 GERD (gastroesophageal reflux disease) (09/07/14) Diabetes mellitus type 2 in obese (09/09/14) Hypothyroidism (acquired) (09/07/14) Schizoaffective disorder (09/07/14) Rebekah Mariscal [facility] 09/2014- [facility] inpatient Trigeminal neuralgia Anxiety Mitral valve prolapse Hyperlipidemia Peripheral neuropathy Surgical History No significant past surgical history Family History Father Heart disease [place] Social History Smoking/Tobacco Use Status: Former Tobacco Use Smoking risk assessment performed?: Yes Alcohol Intake: never Drug use: Never Substance use type: does not use Adopted: No Caregiver/Support person: No Foster care: No Household members: none Housing: apartment Number of Children: 2 number of grandchildren: 1 Communication Needs: Corrective Lenses Education Level: college Do you need help understanding health information?: Always current occupation: Unemployed/Leave of absence Sexually active: No Do you think of yourself as: Decline to provide Current gender identity: male What type of physical activity do you participate in: other Details: weight lifting Frequency: 3-4 times per week Magalie/Jain: Anabaptism Seatbelt use: always Drive 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
[2024-06-19 22:30] VITALS: PULSE 73; RESP 13
== END 2024-06-19 22:44 | disposition home or self-care (01) ==
PROVIDERS: Emergency Provider Emergency Medicine; PCP Family Medicine
DX: R51.9 Headache, unspecified (principal); R42 Dizziness and giddiness
CPT/HCPCS: 93005; 99283; 93010

== ENCOUNTER 2024-07-20 20:25 | Emergency (ER) | payer MEDICAID, SELFPAY ==
[2024-07-20] VITALS (26 sets, daily range): BP systolic 146–155; BP diastolic 70–71; PULSE 63–81; RESP 11–21; TEMP 37–37.1; O2SAT 87–98
--- NOTE | 2024-07-20 20:15 | RT.EKG_ITS ---
APPROVED REPORT Exam: Resting ECG Reason for Exam: Patient Location: E HR:78 bpm ECG Measurements Heart Rate 78 AXIS NH 188 P 37 QRSd 103 QRS 21 QT 407 T 79 QTc 464 Conclusion Sinus rhythm...normal P axis, V-rate 60- 99
--- NOTE | 2024-07-20 20:30 | DI.RAD_ITS ---
Exam(s) XR CHEST 2V PA LATERAL EXAM: XR CHEST 2V PA LATERAL CLINICAL HISTORY: CP, SOB. TECHNIQUE: 2D digital imaging was performed. COMPARISON: CR,XR XR PORTABLE CHEST AP from 03/14/2024 FINDINGS: 2 views: Heart size is normal. The mediastinum is not widened. Lungs are clear. No infiltrates nor pleural effusions. IMPRESSION: No acute pulmonary findings. DATA REPOSITORY: RADIATION DOSE DELIVERED:
--- NOTE | 2024-07-20 20:45 | ED.GENADUL_ITS ---
Discharge Plan Disposition Patient Disposition: Home Condition: Stable Discharge Details Clinical Impression: Pneumonia, Left-sided chest wall pain, Hypomagnesemia Primary Care Provider: Brandon Foster ED Provider: Ignacia Lopez Home Meds and New Rx's Prescriptions: New azithromycin 250 mg tablet 250 mg PO DAILY 4 Days Qty: 4 0RF Rx Instructions: start on day 2 of therapy amoxicillin-pot clavulanate 875-125 mg tablet 1 tab PO BID Qty: 9 0RF Continued gabapentin 300 mg capsule 300 mg PO QID Claritin Liqui-Gel 10 MG capsule 1 cap PO DAILY Qty: 90 Emgality Pen 120 mg/mL pen injector 120 mg subcut QMONTH Qty: 1 4RF multivitamin Tablet 1 tab PO DAILY metformin 500 mg tablet 1 tab PO BID clonazepam 0.5 mg tablet See Rx Instructions .ROUTE .COMPLEX Rx Instructions: 1 tab in AM, 1 tab at Noon and 2 tab QHS triamcinolone acetonide 0.1 % ointment 1 applic TOPICAL BID Patient Comments: Apply 1 a small amount to skin twice a day as needed as directed simvastatin 80 mg tablet 80 mg PO DAILY Patient Comments: Take 1 tablet by mouth once a day benztropine 0.5 MG tablet 0.5 mg PO BID aspirin,buffd-calcium carb-mag 325 MG tablet 325 mg PO DAILY lactulose 10 gram/15 mL solution 20 g PO DIRECTED PRN Patient Comments: TAKE ONE TO TWO TABLESPOONS BY MOUTH NEEDED WHEN 3 DAYS PASS WITHOUT BOWEL MOVEMENT albuterol sulfate 90 mcg/actuation aerosol powdr breath activated 2 inh IH Q6H PRN (Reason: shortness of breath or wheezing) Qty: 1 0RF fluoxetine 40 mg capsule 80 mg PO DAILY atenolol 25 mg tablet 75 mg PO DAILY Patient Comments: Take 3 tablet by mouth once a day Invega Sustenna 117 mg/0.75 mL syringe 117 mg IM Q30D divalproex [Depakote ER] 500 mg tablet extended release 24 hr 1,000 mg PO BID omeprazole 40 mg capsule,delayed release(DR/EC) 40 mg PO DAILY Patient Comments: TAKE 1 CAPSULE BY MOUTH DAILY FOR HEARTBURN promethazine 25 mg tablet 25 mg PO PRN PRN Patient Comments: Take 1 tablet by mouth three times a day as needed as directed for nausea Discharge Instructions Additional Instructions: Please call your primary care provider first thing in the morning to schedule follow-up appointment for evaluation of your pneumonia/chest pain. I have prescribed for you antibiotics to treat pneumonia. Please take the full course as prescribed. I recommend that you take this with probiotics to prevent antibiotic associated diarrhea. Your magnesium was also slightly low today, I recommend that you take an [id number] magnesium supplement such as dissolvable calm. Return to emergency care if you develop new chest pain, difficulty breathing, dizziness, feeling like you are going to pass out, or if you are very worried you need to be rechecked immediately HPI General Date/Time Provider Initiated Documentation: 07/20/24 20:33 . HPI Narrative: Avery is a 59-year-old male with history of HLD, prediabetes, mitral valve prolapse, and migraine who presents to the emergency department today for evaluation of left-sided chest pain accompanied by shortness of breath. He started having chest pain this evening, called EMS and noticed he was short of breath when walking to the door. He is not currently experiencing a shortness of breath, does report some mild chest pain at this time. Chest discomfort is described as pressure/pain, no identified aggravating or alleviating factors. He also reports that he has had some dizziness with going from laying to rui ding today. Denies recent fever/chills, congestion, sore throat, cough, nausea/vomiting, abdominal pain, change in p.o. intake, change in bowel or bladder function, pedal edema, recent surgery/immobility, or known cancer history. He does not currently have a nursing surgical services director. Physical exam reassuring. Patient is alert and oriented, in no acute distress. Easy work of breathing, lung sounds clear bilaterally. Mild tenderness to palpation over anterior left side of chest. Normal heart sounds. Peripheral pulses intact bilaterally. Abdomen soft, nondistended, nontender to palpation. No pedal edema/calf redness/swelling/tenderness. DDx includes but is not limited to: ACS, cardiac arrhythmia, PNA, PE, GERD, esophageal spasm, costochondritis. I independently interpreted the following tests: CBC reassuring, unchanged anemia and thrombocytopenia. Magnesium slightly low at 1.5. Mild hyponatremia, sodium 132. BNP, D-dimer, serial troponins, and flu/COVID/RSV all negative. EKG reassuring, NSR rate 78, no changes c/w acute ischemia. No obvious infiltrates on chest x-ray, however radiology did note possible early pneumonia in LLL. While in the emergency department Avery received nitroglycerin and GI cocktail, with some improvement in chest discomfort. He did receive aspirin en route. Workup today overall reassuring, with serial troponins negative. Likely early left lower lobe pneumonia. Upon further evaluation, Avery reports that he has had mild cough over the last couple of weeks and does have pain in the left lower rib cage with deep inspiration. Will treat with azithromycin and Augmentin for 5 days. Recommend close follow-up with PCP for further evaluation/management. Reviewed red flags indicate need for return to emergency care. Related Data Home Medications ?Medication ?Instructions ?Recorded ?Confirmed loratadine 10 mg capsule (Claritin 1 cap PO DAILY #90 tabs 12/16/14 07/20/24 Liqui-Gel) aspirin,buffered (calcium 325 mg PO DAILY 11/18/16 07/20/24 carbonate-magnesium) 325 mg tablet benztropine 0.5 mg tablet 0.5 mg PO BID 11/18/16 07/20/24 lactulose 10 gram/15 mL oral 20 g PO DIRECTED PRN 10/03/20 07/20/24 solution albuterol sulfate 90 mcg/actuation 2 inh inhalation Q6H PRN shortness 12/15/20 07/20/24 breath activated powder inhaler of breath or wheezing #1 ea multivitamin 1 tab PO DAILY 01/26/21 07/20/24 metformin 500 mg tablet 1 tab PO BID 03/18/22 07/20/24 clonazepam 0.5 mg tablet See Rx Instructions .Route .COMPLEX 03/04/23 07/20/24 fluoxetine 40 mg capsule 80 mg PO DAILY 03/08/23 07/20/24 gabapentin 300 mg capsule 300 mg PO QID 03/27/23 07/20/24 atenolol 25 mg tablet 75 mg PO DAILY 01/31/24 07/20/24 divalproex 500 mg tablet,extended 1,000 mg PO BID 01/31/24 07/20/24 release 24 hr (Depakote ER) omeprazole 40 mg capsule,delayed 40 mg PO DAILY 01/31/24 07/20/24 release paliperidone palmitate 117 mg/0.75 117 mg IM Q30D 01/31/24 07/20/24 mL intramuscular syringe (Invega Sustenna) triamcinolone acetonide 0.1 % 1 applic topical BID 03/06/24 07/20/24 topical ointment simvastatin 80 mg tablet 80 mg PO DAILY 03/08/24 07/20/24 galcanezumab-gnlm 120 mg/mL 120 mg subcut QMONTH #1 mL 03/19/24 07/20/24 subcutaneous pen injector (Emgality Pen) promethazine 25 mg tablet 25 mg PO PRN PRN 06/19/24 07/20/24 amoxicillin 875 mg-potassium 1 tab PO BID #9 tabs 07/20/24 clavulanate 125 mg tablet azithromycin 250 mg tablet 250 mg PO DAILY 4 days #4 tabs 07/20/24 Previous Rx's ?Medication ?Instructions ?Recorded albuterol sulfate 90 mcg/actuation 2 inh inhalation Q6H PRN shortness 12/15/20 breath activated powder inhaler of breath or wheezing #1 ea galcanezumab-gnlm 120 mg/mL 120 mg subcut QMONTH #1 mL 03/19/24 subcutaneous pen injector (Emgality Pen) amoxicillin 875 mg-potassium 1 tab PO BID #9 tabs 07/20/24 clavulanate 125 mg tablet azithromycin 250 mg tablet 250 mg PO DAILY 4 days #4 tabs 07/20/24 Allergies Allergy/AdvReac Type Severity Reaction Status Date / Time buspirone Allergy Other (See Verified 07/20/24 20:32 Comment) paliperidone Allergy Other (See Verified 07/20/24 20:32 Comment) paroxetine HCl (From Paxil) Allergy Other (See Verified 07/20/24 20:32 Comment) sertraline Allergy Other (See Verified 07/20/24 20:32 Comment) ziprasidone (From Geodon) Allergy Other (See Verified 07/20/24 20:32 Comment) aripiprazole (From Abilify) AdvReac Intermediate INVOLUNTARY Verified 07/20/24 20:32 MUSCLE MOVEMENTS mirtazapine AdvReac Intermediate INVOLUNTARY Verified 07/20/24 20:32 MUSCLE MOVEMENTS risperidone AdvReac Intermediate INVOLUNTARY Verified 07/20/24 20:32 MUSCLE MOVEMENTS enviornmental Allergy Mild Wheezing Uncoded 07/20/24 20:32 General Stated Complaint: Chest Pain CARLOS: 3 Review of Systems Narrative: see HPI Exam Const General: cooperative, healthy appearing, comfortable, no acute distress, well developed and well groomed Nutritional Appearance: average body habitus Neck Neck: no JVD Chest Chest: other (Mild tenderness with palpation of the left rib cage near sternum.) Resp Effort & Inspection: normal respiratory effort and able to speak in complete sentences Auscultation: clear to auscultation bilaterally Cardio Jugular venous pressure: no JVD Rate: regular rate Rhythm: regular rhythm Pulses: normal peripheral pulses GI Inspection: normal to inspection Palpation: soft and nontender Extrem General: no pedal edema and no calf tenderness Course Vital Signs Vital signs: Vital Signs Temperature 37 C 07/20/24 20:28 Pulse 79 07/20/24 20:28 Respiratory Rate 16 07/20/24 20:28 Blood Pressure 155/71 H 07/20/24 20:28 Pulse Oximetry 98 07/20/24 20:28 Temperature 37 C 07/20/24 20:28 Temperature Source Temporal Artery Scan 07/20/24 20:28 Pulse 79 07/20/24 20:28 Respiratory Rate 16 07/20/24 20:28 Blood Pressure 155/71 H 07/20/24 20:28 Blood Pressure Position Supine 07/20/24 20:28 Pulse Oximetry 98 07/20/24 20:28 Oxygen Delivery Method Room Air 07/20/24 20:28 Oxygen Flow Rate 0 07/20/24 20:28 Pain Level 7 07/20/24 20:28 Medical Decision Making Imaging Data Radiologic Study: Radiologist's impression: PROCEDURE INFORMATION: Exam: XR Chest Exam date and time: 07/20/2024 9:02 PM Age: 59 years old Clinical indication: Other: Chest pain, SOB TECHNIQUE: Imaging protocol: Radiologic exam of the chest. Views: 2 views. COMPARISON: CR XR PORTABLE CHEST AP 03/14/2024 2:43 AM FINDINGS: Lungs: Mild atelectatic changes and possible early infiltrate left lower lobe of the lung pneumonias not excluded. The pulmonary vasculature is normal. Pleural spaces: There is no evidence of pneumothorax. There are no pleural effusions present. Heart/Mediastinum: The cardiac silhouette is within normal limits. The mediastinum is normal. Bones/joints: The spine, sternum, ribs, and pectoral gird les show no evidence of acute abnormality Soft tissues: There are no soft tissue masses or calcifications. IMPRESSION: Mild atelectatic changes and possible early infiltrate left lower lobe of the lung pneumonias not excluded. Quality:SDOH Health Related Social Needs: Health related social needs food insecurity PFSH All Active Problems (Updated 07/20/24 @ 23:40 by Ignacia Brink) Hypomagnesemia (Acute) Pneumonia (Acute) Dental caries (Acute) Nicotine dependence (Acute) Dyspnea on exertion (Acute) Shortness of breath (Acute) Hypercholesterolemia (Chronic 09/07/14) pt insists on lipitor 80 mg due to family hx Depression (Acute 10/02/14) Left-sided chest wall pain (Acute) Chest pain (Acute) Chronic headache (Acute) Migraine headache without aura (Acute) Migraine (Chronic) Poor dentition (Acute) Tobacco use disorder (Chronic) started 2013 1.5 ppd, pipe 1-7/week, QUIT LATE OCT 2021 Allergic rhinitis (Chronic) lortadine Hiatal hernia (Chronic) protonix not effective, nexium works better 02/12/18 Anemia (Chronic) Broken teeth (Chronic) Drug-seeking behavior (Chronic ~09/20/21) Requests Ritalin from providers Medication overuse headache (Acute) Medical History Obesity BMI 52 Hypertension pt requests brand name Tenormin vs atenolol 04/02/18 GERD (gastroesophageal reflux disease) (09/07/14) Diabetes mellitus type 2 in obese (09/09/14) Hypothyroidism (acquired) (09/07/14) Schizoaffective disorder (09/07/14) Rebekah Mariscal [facility] 09/2014- [facility] inpatient Trigeminal neuralgia Anxiety Mitral valve prolapse Hyperlipidemia Peripheral neuropathy Surgical History No significant past surgical history Family History Father Heart disease [place] Social History Smoking/Tobacco Use Status: Former Tobacco Use Smoking risk assessment performed?: Yes Alcohol Intake: never Drug use: Never Substance use type: does not use Adopted: No Caregiver/Support person: No Foster care: No Household members: none Housing: apartment Number of Children: 2 number of grandchildren: 1 Communication Needs: Corrective Lenses Education Level: college Do you need help understanding health information?: Always current occupation: Unemployed/Leave of absence Sexually active: No Do you think of yourself as: Decline to provide Current gender identity: male What type of physical activity do you participate in: other Details: weight lifting Frequency: 3-4 times per week Magalie/Congregational: Yazdanism Seatbelt use: always Drive 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
[2024-07-20 21:21] LABS: Abs Immature Grans 0.02 10^3/uL (0.0-0.06); Absolute Basophil Count 0.01 10^3/uL (0.0-0.2); Absolute Eosinophil Count 0.12 10^3/uL (0.0-0.7); Absolute Lymphocyte Count 1.21 10^3/uL (1.2-3.4); Absolute Monocyte Count 0.48 10^3/uL (0.1-0.8); Absolute Neutrophil Count 2.82 10^3/uL (1.2-6.7); Basophils % 0.2 %; Eosinophils % 2.6 %; HCT 31.3 % (40.0-50.0); HGB 10.7 g/dL (13.5-17.5); Immature Grans % 0.4 %; MCH 32.2 pg (27.0-33.0); MCHC 34.2 % (32.0-36.0); MCV 94 fL (80-95); MPV 8.2 fL (8.0-11.0); Monocytes % 10.3 %; Neutrophils % 60.5 %; Platelet Count 101 10^3/uL (130-400); RBC 3.32 10^6/uL (4.36-5.78); RDW 12.1 % (11.8-14.1); RDW-SD 41.5 fL; WBC 4.66 10^3/uL (4.4-10.8)
[2024-07-20 21:43] LABS: ALT 13 U/L (16-63); AST 22 U/L (15-37); Albumin 3.2 g/dL (3.4-5.0); Alkaline Phosphatase 57 U/L (46-116); Anion Gap 6.2 mmol/L (3-11); BUN 9 mg/dL (7-18); Bilirubin, Total 0.33 mg/dL (0.2-1.0); CO2 28.8 mmol/L (21.0-32.0); CREATININE 0.9 mg/dL (0.70-1.30); Calcium 8.8 mg/dL (8.5-10.1); Chloride 97 mmol/L (98-107); Estimated GFR 98.38 (mL/min/1.73m2); Glucose 132 mg/dL (74-106); Magnesium 1.5 mg/dL (1.8-2.4); NT-proBNP 174 pg/mL (<300); Potassium 4.1 mmol/L (3.5-5.1); Sodium 132 mmol/L (136-145); Total Protein 7.1 g/dL (6.4-8.2); Troponin I 4 ng/L (<or=76)
[2024-07-20 21:58] LABS: D-Dimer 324 ng/mlFEU (<500)
[2024-07-20 22:15] LABS: COVID-19 PCR Negative (Negative); Influenza A PCR Negative (Negative); Influenza B PCR Negative (Negative); RSV PCR Negative (Negative)
[2024-07-20 22:16] LABS: Source Nasopharynx
--- NOTE | 2024-07-20 22:31 | DI.VRAD_ITS ---
PROCEDURE INFORMATION: Exam: XR Chest Exam date and time: 07/20/2024 9:02 PM Age: 59 years old Clinical indication: Other: Chest pain, SOB TECHNIQUE: Imaging protocol: Radiologic exam of the chest. Views: 2 views. COMPARISON: CR XR PORTABLE CHEST AP 03/14/2024 2:43 AM FINDINGS: Lungs: Mild atelectatic changes and possible early infiltrate left lower lobe of the lung pneumonias not excluded. The pulmonary vasculature is normal. Pleural spaces: There is no evidence of pneumothorax. There are no pleural effusions present. Heart/Mediastinum: The cardiac silhouette is within normal limits. The mediastinum is normal. Bones/joints: The spine, sternum, ribs, and pectoral girdles show no evidence of acute abnormality Soft tissues: There are no soft tissue masses or calcifications. IMPRESSION: Mild atelectatic changes and possible early infiltrate left lower lobe of the lung pneumonias not excluded. Dictated and Authenticated by: Gustavo Hernández MD. Ordering:LAVELL Beth MD
[2024-07-20 22:53] LABS: Troponin I 4 ng/L (<or=76)
[2024-07-20] MEDS: Azithromycin 250 MG TAB 500 MG PO (23:51)
[2024-07-20] MEDS: Magnesium Oxide 400 MG TAB PO (23:51)
[2024-07-20] MEDS: Amoxicillin 875/Clav. 125 TAB PO (23:51)
== END 2024-07-20 23:55 | disposition home or self-care (01) ==
PROVIDERS: Emergency Provider Nurse Practitioner Family; PCP Family Medicine
DX: R07.9 Chest pain, unspecified (principal); R06.02 Shortness of breath; I10 Essential (primary) hypertension; J18.9 Pneumonia, unspecified organism; R05.1 Acute cough; E83.42 Hypomagnesemia; Z86.79 Personal history of other diseases of the circulatory system
CPT/HCPCS: 80053; 87637; 93005; 99284; 71046; 83735; 83880; 84484; 85025; 85379; 93010

== ENCOUNTER 2024-07-22 15:24 | Emergency (ER) | payer MEDICAID, SELFPAY ==
[2024-07-22 15:32] VITALS: BP 159/85; PULSE 72; RESP 16; TEMP 37; O2SAT 98
--- NOTE | 2024-07-22 15:35 | W.ED.GENAD ---
Discharge Plan Disposition Patient Disposition: Home Condition: Stable Discharge Details Clinical Impression: Migraine Primary Care Provider: Brandon Foster ED Provider: Katarzyna Jennings Home Meds and New Rx's Prescriptions: No Action gabapentin 300 mg capsule 300 mg PO QID Claritin Liqui-Gel 10 MG capsule 1 cap PO DAILY Qty: 90 Emgality Pen 120 mg/mL pen injector 120 mg subcut QMONTH Qty: 1 4RF multivitamin Tablet 1 tab PO DAILY metformin 500 mg tablet 1 tab PO BID clonazepam 0.5 mg tablet See Rx Instructions .ROUTE .COMPLEX Rx Instructions: 1 tab in AM, 1 tab at Noon and 2 tab QHS simvastatin 80 mg tablet 80 mg PO DAILY Patient Comments: Take 1 tablet by mouth once a day ondansetron HCl 4 mg tablet 4 mg PO Q8H PRN Patient Comments: Take 1 tablet by mouth every eight hours as needed as directed benztropine 0.5 MG tablet 0.5 mg PO BID aspirin,buffd-calcium carb-mag 325 MG tablet 325 mg PO DAILY lactulose 10 gram/15 mL solution 20 g PO DIRECTED PRN Patient Comments: TAKE ONE TO TWO TABLESPOONS BY MOUTH NEEDED WHEN 3 DAYS PASS WITHOUT BOWEL MOVEMENT albuterol sulfate 90 mcg/actuation aerosol powdr breath activated 2 inh IH Q6H PRN (Reason: shortness of breath or wheezing) Qty: 1 0RF fluoxetine 40 mg capsule 80 mg PO DAILY atenolol 25 mg tablet 75 mg PO DAILY Patient Comments: Take 3 tablet by mouth once a day Invega Sustenna 117 mg/0.75 mL syringe 117 mg IM Q30D divalproex [Depakote ER] 500 mg tablet extended release 24 hr 1,000 mg PO BID omeprazole 40 mg capsule,delayed release(DR/EC) 40 mg PO DAILY Patient Comments: TAKE 1 CAPSULE BY MOUTH DAILY FOR HEARTBURN Discharge Instructions Instructions: Headache, Adult ED Additional Instructions: You were seen in the emergency department today for evaluation of migraine headache. You received multiple medications for management of your symptoms, and had improvement. It is safe for you to go home and continue to take all of your medications as prescribed, and follow-up with your primary care provider in the next few days to discuss this visit and any symptoms that change, worsen, or persist. Please continue to use [id number] medications such as Tylenol and ibuprofen as needed, and thank you for allowing us to be part of your care. HPI General Mode of arrival: EMS. Date/Time Provider Initiated Documentation: 07/22/24 15:31. Limitations to Documentation: no limitations. Information obtained by: patient, EMS and old records reviewed. HPI Narrative: HPI: This is a 59-year-old male patient with a past medical history significant for migraine headaches, anemia, depression, presenting for evaluation of a migraine. The patient reports that about an hour ago he had a gradual onset of a throbbing top of the head headache, which was not associated with any vision changes, nausea or vomiting, weakness, or numbness. He states that this feels similar to his prior migraines, for which she is often needed sumatriptan in the past. He did try Tylenol in the outpatient environment without improvement in his symptoms prior to calling 911 for transport and evaluation. He does report that he noted some pain in his left ear, which does not feel similar to his prior episodes of trigeminal neuralgia. No changes in hearing. The patient reports that he has not had fevers or chills, has not had any trauma or injuries to his head, does not take blood thinning medications. Prior to this event he was in his normal state of health Exam: Gen: Awake and alert, in no apparent distress HEENT: Non-icteric sclera, pupils equal and reactive bilaterally at 3 mm, EOMs are full, conjunctiva not injected. Bilateral TMs are clear, there are no vesicular lesions appreciated in the ear canal, right external ear largely wax occluded Neck: Supple, no meningismus Lungs: No apparent respiratory distress, normal respiratory effort. Lung sounds clear and equal CV: Appears well perfused, strong distal pulses Abdomen: Non-distended, soft, nontender MSK: Moves 4 extremities without apparent limitation in ROM Skin: Visualized skin without rashes, cyanosis. Neuro: Normal Gait, no obvious focal deficits or facial asymmetry. Speaks in full, clear sentences. Psych: Appropriate for situation. MDM: This is a 59-year-old male patient presenting for evaluation of migraine headache. I am most concerned for migraine, though my differential also included tension headache, symptoms less consistent with cluster headache. No thunderclap quality or neurodeficits to increase my concern for subarachnoid hemorrhage, intracranial mass effect, etc. The patient does not have trauma to suggest injury, and does not have eye pain or redness to increase my concern for glaucoma, optic neuritis. The patient has no temporal tenderness to increase my concern for GCA, no evidence of Marco Antonio Hood or other herpes infectious findings in the area of the face or ear. Considered trigeminal neuralgia though the patient endorses a difference in the symptoms from his prior episodes. At this time the patient is hemodynamically appropriate, afebrile, and neuro intact. Given that the headache symptoms are consistent with prior episodes I feel that it is reasonable to proceed with migraine cocktail, and I do not see any indication at that time for advanced imaging or laboratory studies. 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 I will provide the patient with a dose of sumatriptan, which she has tolerated well in the past, as well as a liter of IV fluids and a dose of Toradol. I will also provide the patient with 2 g of magnesium. ED Course: On reassessment the patient reports his headache is improved but not resolved, and he requests a second sumatriptan, which is within the therapeutic dosing range for this medication, and was provided. He reports improvement in his headache and is desiring of discharge home, was ambulatory and without neurodeficit on my reassessment. At this time, the patient has had a full medical evaluation and is safe for discharge to home. They are hemodynamically stable, ambulatory, and tolerating PO. They are understanding of the follow-up plan and return precautions. They left our facility without incident. Katarzyna Jennings MD Related Data Home Medications ?Medication ?Instructions ?Recorded ?Confirmed loratadine 10 mg capsule (Claritin 1 cap PO DAILY #90 tabs 12/16/14 07/22/24 Liqui-Gel) aspirin,buffered (calcium 325 mg PO DAILY 11/18/16 07/22/24 carbonate-magnesium) 325 mg tablet benztropine 0.5 mg tablet 0.5 mg PO BID 11/18/16 07/22/24 lactulose 10 gram/15 mL oral 20 g PO DIRECTED PRN 10/03/20 07/22/24 solution albuterol sulfate 90 mcg/actuation 2 inh inhalation Q6H PRN shortness 12/15/20 07/22/24 breath activated powder inhaler of breath or wheezing #1 ea multivitamin 1 tab PO DAILY 01/26/21 07/22/24 metformin 500 mg tablet 1 tab PO BID 03/18/22 07/22/24 clonazepam 0.5 mg tablet See Rx Instructions .Route .COMPLEX 03/04/23 07/22/24 fluoxetine 40 mg capsule 80 mg PO DAILY 03/08/23 07/22/24 gabapentin 300 mg capsule 300 mg PO QID 03/27/23 07/22/24 atenolol 25 mg tablet 75 mg PO DAILY 01/31/24 07/22/24 divalproex 500 mg tablet,extended 1,000 mg PO BID 01/31/24 07/22/24 release 24 hr (Depakote ER) omeprazole 40 mg capsule,delayed 40 mg PO DAILY 01/31/24 07/22/24 release paliperidone palmitate 117 mg/0.75 117 mg IM Q30D 01/31/24 07/22/24 mL intramuscular syringe ([employer] Sustenna) simvastatin 80 mg tablet 80 mg PO DAILY 03/08/24 07/22/24 galcanezumab-gnlm 120 mg/mL 120 mg subcut QMONTH #1 mL 03/19/24 07/22/24 subcutaneous pen injector (Emgality Pen) ondansetron HCl 4 mg tablet 4 mg PO Q8H PRN 07/22/24 07/22/24 Previous Rx's ?Medication ?Instructions ?Recorded albuterol sulfate 90 mcg/actuation 2 inh inhalation Q6H PRN shortness 12/15/20 breath activated powder inhaler of breath or wheezing #1 ea galcanezumab-gnlm 120 mg/mL 120 mg subcut QMONTH #1 mL 03/19/24 subcutaneous pen injector (Emgality Pen) Allergies Allergy/AdvReac Type Severity Reaction Status Date / Time buspirone Allergy Other (See Verified 07/22/24 15:29 Comment) paliperidone Allergy Other (See Verified 07/22/24 15:29 Comment) paroxetine HCl (From Paxil) Allergy Other (See Verified 07/22/24 15:29 Comment) sertraline Allergy Other (See Verified 07/22/24 15:29 Comment) ziprasidone (From Geodon) Allergy Other (See Verified 07/22/24 15:29 Comment) aripiprazole (From Abilify) AdvReac Intermediate INVOLUNTARY Verified 07/22/24 15:29 MUSCLE MOVEMENTS mirtazapine AdvReac Intermediate INVOLUNTARY Verified 07/22/24 15:29 MUSCLE MOVEMENTS risperidone AdvReac Intermediate INVOLUNTARY Verified 07/22/24 15:29 MUSCLE MOVEMENTS enviornmental Allergy Mild Wheezing Uncoded 07/22/24 15:29 General Stated Complaint: Headache CARLOS: 3 Course Vital Signs Vital signs: Vital Signs Temperature 37.0 C 07/22/24 15:32 Pulse 72 07/22/24 15:32 Respiratory Rate 16 07/22/24 15:32 Blood Pressure 159/85 H 07/22/24 15:32 Pulse Oximetry 98 07/22/24 15:32 Temperature 37.0 C 07/22/24 15:32 Temperature Source Oral 07/22/24 15:32 Pulse 72 07/22/24 15:32 Respiratory Rate 16 07/22/24 15:32 Blood Pressure 159/85 H 07/22/24 15:32 Blood Pressure Position Sitting 07/22/24 15:32 Pulse Oximetry 98 07/22/24 15:32 Oxygen Delivery Method Room Air 07/22/24 15:32 Oxygen Flow Rate 0 07/22/24 15:32 Pain Level 9 07/22/24 15:32 Medical Decision Making Quality:SDOH Health Related Social Needs: Health related social needs food insecurity PFSH All Active Problems (Updated 07/22/24 @ 16:50 by Katarzyna Jennings MD) Hypomagnesemia (Acute) Pneumonia (Acute) Dental caries (Acute) Nicotine dependence (Acute) Dyspnea on exertion (Acute) Shortness of breath (Acute) Hypercholesterolemia (Chronic 09/07/14) pt insists on lipitor 80 mg due to family hx Depression (Acute 10/02/14) Left-sided chest wall pain (Acute) Chest pain (Acute) Chronic headache (Acute) Migraine headache without aura (Acute) Migraine (Chronic) Poor dentition (Acute) Tobacco use disorder (Chronic) started 2013 1.5 ppd, pipe 1-7/week, QUIT LATE OCT 2021 Allergic rhinitis (Chronic) lortadine Hiatal hernia (Chronic) protonix not effective, nexium works better 02/12/18 Anemia (Chronic) Broken teeth (Chronic) Drug-seeking behavior (Chronic ~09/20/21) Requests Ritalin from providers Medication overuse headache (Acute) Medical History Obesity BMI 52 Hypertension pt requests brand name Tenormin vs atenolol 04/02/18 GERD (gastroesophageal reflux disease) (09/07/14) Diabetes mellitus type 2 in obese (09/09/14) Hypothyroidism (acquired) (09/07/14) Schizoaffective disorder (09/07/14) Rebekah Mariscal [facility] 09/2014- [facility] inpatient Trigeminal neuralgia Anxiety Mitral valve prolapse Hyperlipidemia Peripheral neuropathy Surgical History No significant past surgical history Family History Father Heart disease [place] Social History Smoking/Tobacco Use Status: Former Tobacco Use Smoking risk assessment performed?: Yes Alcohol Intake: never Drug use: Never Substance use type: does not use Adopted: No Caregiver/Support person: No Foster care: No Household members: none Housing: apartment Number of Children: 2 number of grandchildren: 1 Communication Needs: Corrective Lenses Education Level: college Do you need help understanding health information?: Always current occupation: Unemployed/Leave of absence Sexually active: No Do you think of yourself as: Decline to provide Current gender identity: male What type of physical activity do you participate in: other Details: weight lifting Frequency: 3-4 times per week Magalie/Pentecostal: Bahai Seatbelt use: always Drive intox or ride w/intox transit mixer 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
[2024-07-22] MEDS: Ketorolac 15 MG/ML VIAL IVP (15:48)
[2024-07-22] MEDS: MAGNESIUM SULFATE 2 GM/50 ML BAG IVINF (15:48)
[2024-07-22] MEDS: SUMAtriptan 25 MG TAB PO ×2 (15:49→16:23)
[2024-07-22 16:59] VITALS: BP 159/85; PULSE 72; RESP 16; TEMP 37; O2SAT 98
[2024-07-22 17:00] VITALS: BP 159/85; PULSE 72; RESP 16; TEMP 37; O2SAT 98
== END 2024-07-22 17:01 | disposition home or self-care (01) ==
PROVIDERS: Emergency Provider Emergency Medicine; PCP Family Medicine
DX: G43.909 Migraine, unspecified, not intractable, without status migrainosus (principal); I10 Essential (primary) hypertension; E78.5 Hyperlipidemia, unspecified; E11.9 Type 2 diabetes mellitus without complications; Z79.84 Long term (current) use of oral hypoglycemic drugs
CPT/HCPCS: 87880; 96365; 96375; 99283; 99284; J1885; J3475

== ENCOUNTER 2024-08-04 23:49 | Emergency (ER) | payer MEDICAID, SELFPAY ==
[2024-08-04 23:54] VITALS: BP 161/82; PULSE 69; RESP 14; TEMP 36.6; O2SAT 98
--- NOTE | 2024-08-05 | RT.EKG_ITS ---
APPROVED REPORT Exam: Resting ECG Reason for Exam: jaw pain Patient Location: E HR:65 bpm ECG Measurements Heart Rate 65 AXIS ID 191 P 45 QRSd 103 QRS 14 QT 431 T 125 QTc 449 Conclusion Sinus rhythm...normal P axis, V-rate 60- [address] segment or T wave abnormalities to suggest occlusive [place]
--- NOTE | 2024-08-05 00:08 | W.ED.GENAD ---
Discharge Plan Disposition Patient Disposition: Home Condition: Good Discharge Details Clinical Impression: Jaw pain Primary Care Provider: Brandon Foster ED Provider: Sparkle Slater Home Meds and New Rx's Prescriptions: Continued gabapentin 300 mg capsule 300 mg PO QID bupropion HCl 75 mg tablet 75 mg PO DAILY Rx Instructions: administer 6 hours apart sumatriptan succinate 100 mg tablet See Rx Instructions PO .COMPLEX Qty: 9 5RF Rx Instructions: take 1 tab at onset of headache; if no relief, may repeat 1 tab after at least 2 hrs; max = 2 tabs/24 hrs PO Nurtec ODT 75 mg tablet,disintegrating 75 mg PO ONCE PRN (Reason: migraine headache) Qty: 8 5RF Rx Instructions: as a single dose; no more than 1 tab per day Emgality Pen 120 mg/mL pen injector 120 mg subcut QMONTH Qty: 1 11RF Claritin Liqui-Gel 10 MG capsule 1 cap PO DAILY Qty: 90 multivitamin Tablet 1 tab PO DAILY metformin 500 mg tablet 1 tab PO BID clonazepam 0.5 mg tablet See Rx Instructions .ROUTE .COMPLEX Rx Instructions: 1 tab in AM, 1 tab at Noon and 2 tab QHS simvastatin 80 mg tablet 80 mg PO DAILY Patient Comments: Take 1 tablet by mouth once a day ondansetron HCl 4 mg tablet 4 mg PO Q8H PRN Patient Comments: Take 1 tablet by mouth every eight hours as needed as directed benztropine 0.5 MG tablet 0.5 mg PO BID aspirin,buffd-calcium carb-mag 325 MG tablet 325 mg PO DAILY lactulose 10 gram/15 mL solution 20 g PO DIRECTED PRN Patient Comments: TAKE ONE TO TWO TABLESPOONS BY MOUTH NEEDED WHEN 3 DAYS PASS WITHOUT BOWEL MOVEMENT albuterol sulfate 90 mcg/actuation aerosol powdr breath activated 2 inh IH Q6H PRN (Reason: shortness of breath or wheezing) Qty: 1 0RF fluoxetine 40 mg capsule 80 mg PO DAILY atenolol 25 mg tablet 75 mg PO DAILY Patient Comments: Take 3 tablet by mouth once a day Invega Sustenna 117 mg/0.75 mL syringe 117 mg IM Q30D divalproex [Depakote ER] 500 mg tablet extended release 24 hr 1,000 mg PO BID omeprazole 40 mg capsule,delayed release(DR/EC) 40 mg PO DAILY Patient Comments: TAKE 1 CAPSULE BY MOUTH DAILY FOR HEARTBURN Discharge Instructions Additional Instructions: Tylenol over the counter for pain; follow the directions on the bottle. Call your primary care doctor today to schedule an appointment for within the next 48 hours to followup on your visit here. Return to the emergency department for new or or worsening symptoms including new/different/worse pain, chest pain, shortness of breath, or if you have any other concerns. Referrals: Brandon Foster [Primary Care Provider] - [facility] General Mode of arrival: EMS. Date/Time Provider Initiated Documentation: 08/05/24 00:01. Limitations to Documentation: no limitations. Information obtained by: patient and EMS. HPI Narrative: 59yo M with hx anxiety, depression, HTN, T2DM, obesity, HLD, MVP, presenting for left jaw pain. Today was chewing a large wad of nictonne gum most of the evening. Around 11pm noted left sided jaw pain and left ear fullness/pain. Also reports some tingling sensations in his left eye which has since resolved. Jaw/ear pain persist but have improved since onset, currently mild. No headache, eye pain, numbness, weakness, vertgio, vision changes. No shortness of breath, lightheadedness, or syncope. Otherwise in his usual state of health. Related Data Home Medications ?Medication ?Instructions ?Recorded ?Confirmed loratadine 10 mg capsule (Claritin 1 cap PO DAILY #90 tabs 12/16/14 08/04/24 Liqui-Gel) aspirin,buffered (calcium 325 mg PO DAILY 11/18/16 08/04/24 carbonate-magnesium) 325 mg tablet benztropine 0.5 mg tablet 0.5 mg PO BID 11/18/16 08/04/24 lactulose 10 gram/15 mL oral 20 g PO DIRECTED PRN 10/03/20 08/04/24 solution albuterol sulfate 90 mcg/actuation 2 inh inhalation Q6H PRN shortness 12/15/20 08/04/24 breath activated powder inhaler of breath or wheezing #1 ea multivitamin 1 tab PO DAILY 01/26/21 08/04/24 metformin 500 mg tablet 1 tab PO BID 03/18/22 08/04/24 clonazepam 0.5 mg tablet See Rx Instructions .Route .COMPLEX 03/04/23 08/04/24 fluoxetine 40 mg capsule 80 mg PO DAILY 03/08/23 08/04/24 gabapentin 300 mg capsule 300 mg PO QID 03/27/23 08/04/24 atenolol 25 mg tablet 75 mg PO DAILY 01/31/24 08/04/24 divalproex 500 mg tablet,extended 1,000 mg PO BID 01/31/24 08/04/24 release 24 hr (Depakote ER) omeprazole 40 mg capsule,delayed 40 mg PO DAILY 01/31/24 08/04/24 release paliperidone palmitate 117 mg/0.75 117 mg IM Q30D 01/31/24 08/04/24 mL intramuscular syringe (Invega Sustenna) simvastatin 80 mg tablet 80 mg PO DAILY 03/08/24 08/04/24 ondansetron HCl 4 mg tablet 4 mg PO Q8H PRN 07/22/24 08/04/24 bupropion HCl 75 mg tablet 75 mg PO DAILY 08/04/24 08/04/24 galcanezumab-gnlm 120 mg/mL 120 mg subcut QMONTH #1 mL 08/04/24 08/04/24 subcutaneous pen injector (Emgality Pen) rimegepant 75 mg disintegrating 75 mg PO ONCE PRN migraine 08/04/24 08/04/24 tablet (Nurtec ODT) headache #8 tabs sumatriptan succinate 100 mg tablet See Rx Instructions PO .COMPLEX #9 08/04/24 08/04/24 tabs Previous Rx's ?Medication ?Instructions ?Recorded albuterol sulfate 90 mcg/actuation 2 inh inhalation Q6H PRN shortness 12/15/20 breath activated powder inhaler of breath or wheezing #1 ea galcanezumab-gnlm 120 mg/mL 120 mg subcut QMONTH #1 mL 08/04/24 subcutaneous pen injector (Emgality Pen) rimegepant 75 mg disintegrating 75 mg PO ONCE PRN migraine 08/04/24 tablet (Nurtec ODT) headache #8 tabs sumatriptan succinate 100 mg tablet See Rx Instructions PO .COMPLEX #9 08/04/24 tabs Allergies Allergy/AdvReac Type Severity Reaction Status Date / Time buspirone Allergy Other (See Verified 08/04/24 23:53 Comment) paliperidone Allergy Other (See Verified 08/04/24 23:53 Comment) paroxetine HCl (From Paxil) Allergy Other (See Verified 08/04/24 23:53 Comment) sertraline Allergy Other (See Verified 08/04/24 23:53 Comment) ziprasidone (From Geodon) Allergy Other (See Verified 08/04/24 23:53 Comment) aripiprazole (From Abilify) AdvReac Intermediate INVOLUNTARY Verified 08/04/24 23:53 MUSCLE MOVEMENTS mirtazapine AdvReac Intermediate INVOLUNTARY Verified 08/04/24 23:53 MUSCLE MOVEMENTS risperidone AdvReac Intermediate INVOLUNTARY Verified 08/04/24 23:53 MUSCLE MOVEMENTS enviornmental Allergy Mild Wheezing Uncoded 08/04/24 23:53 General Stated Complaint: EyeProblem CARLOS: 4 Review of Systems Narrative: see HPI Exam Narrative Exam Narrative: General: Alert, well appearing, well nourished, in no acute distress. Head: Normocephalic, atraumatic Eye: ?PERRL ?EOM full and pain free.? Conjuctiva white. No discharge. Neck: Trachea midline, ?Neck supple. ENT: ?MMM.? No oropharygeal lesions or exudate. Maxilla, jaw, mandible nontender. TM's clear. No anterior neck tenderness. Cardiac: ?RRR, no murmurs appreciated Resp: No respiratory distress. CTAB. Abd: ?Non-distended Extremities: ?No deformities.? No peripheral edema. Neuro: ? GCS 15.? PERRL.? EOMI.? Fluent speech, no dysarthria. Motor- 5/5 strength symmetric bilateral upper and lower extremities Sensation- ?Intact to light touch and symmetric multiple dermatomes including upper and lower extremities CRANIAL NERVES: II: Pupils equal and reactive, III, IV, : EOM intact, no gaze preference or deviation, no nystagmus. V: normal sensation in V1, V2, and V3 segments bilaterally VII: no asymmetry, no nasolabial fold flattening VIII: normal hearing to speech IX, X: normal palatal elevation, no uvular deviation XI: 5/5 head turn and 5/5 shoulder shrug bilaterally XII: midline tongue protrusion Course Vital Signs Vital signs: Vital Signs Temperature 36.6 C 08/04/24 23:54 Pulse 69 08/04/24 23:54 Respiratory Rate 14 08/04/24 23:54 Blood Pressure 161/82 H 08/04/24 23:54 Pulse Oximetry 98 08/04/24 23:54 Temperature 36.6 C 08/04/24 23:54 Temperature Source Temporal Artery Scan 08/04/24 23:54 Pulse 69 08/04/24 23:54 Respiratory Rate 14 08/04/24 23:54 Respiratory Effort Normal 08/04/24 23:58 Blood Pressure 161/82 H 08/04/24 23:54 Blood Pressure Position Sitting 08/04/24 23:54 Pulse Oximetry 98 08/04/24 23:54 Oxygen Delivery Method Room Air 08/04/24 23:54 Oxygen Flow Rate 0 08/04/24 23:54 Pain Level 4 08/04/24 23:54 Comment Pressure in eye 08/04/24 23:54 Medical Decision Making 59yo M with hx anxiety, depression, HTN, T2DM, obesity, HLD, MVP, presenting for left jaw pain. Today was chewing a large wad of nicotine gum most of the evening. Around 11pm noted left sided jaw pain and left ear fullness/pain. Also reports some tingling sensations in his left eye which has since resolved. Jaw/ear pain persist but have improved since onset, currently mild. Hypertensive on arrival, vital signs otherwise reassuring. Normal vision. No focal neurologic deficits. No facial tenderness. TM's clear. Not concerned for otitis media, deep space neck infection, sinusitis, CVA, acute angle closure glaucoma, conjunctivitis. Low suspicion for acute coronary syndrome but he does have risk factors; will evaluate with EKG and lab work. Tylenol for discomfort. EKG SR, appropriate intervals, no ST segment or T wave abnormalities to suggest occlusive PR. No concerning changes compared to prior 07/20/24 Labs reviewed as below, CBC with anemia at his baseline on [facility] record review, CMP with no actionable abnormalities, troponin normal. 1 hour repeat troponin unchanged. HEART score 3 (age, risk factors), low risk. On reassessment he remains well appearing with reassuring vital signs. Appropriate for discharge home to PCP followup. Discharged; discharge instructions and return precautions reviewed with patient who verbalized understanding. All questions were answered and he is in full agreement with the plan. Lab Data Lab results reviewed: Yes I reviewed the patient's lab results. Labs: Laboratory Tests Range/Units 08/05/24 00:31 WBC (4.4-10.8) 10^3/uL 5.16 RBC (4.36-5.78) 10^6/uL 3.29 L Hgb (13.5-17.5) g/dL 10.7 L Hct (40.0-50.0) % 31.0 L MCV (80-95) fL 94 MCH (27.0-33.0) pg 32.5 MCHC (32.0-36.0) % 34.5 RDW (11.8-14.1) % 12.2 Plt Count (130-400) 10^3/uL 125 L MPV (8.0-11.0) fL 9.1 Immature Gran % % 0.4 Neutrophils % % 62.8 Lymphocytes % % 25.6 Monocytes % % 8.9 Eosinophils % % 1.9 Basophils % % 0.4 Nucleated RBC % (0.0-0.3) % 0.0 Absolute Neutrophils (1.2-6.7) 10^3/uL 3.24 Absolute Lymphocytes (1.2-3.4) 10^3/uL 1.32 Absolute Monocytes (0.1-0.8) 10^3/uL 0.46 Absolute Eosinophils (0.0-0.7) 10^3/uL 0.10 Absolute Basophils (0.0-0.2) 10^3/uL 0.02 Sodium (136-145) mmol/L 135 L Potassium (3.5-5.1) mmol/L 4.0 Chloride (98-107) mmol/L 99 Carbon Dioxide (21.0-32.0) mmol/L 28.3 Anion Gap (3-11) mmol/L 7.7 BUN (7-18) mg/dL 9 Creatinine (0.70-1.30) mg/dL 0.9 Est GFR (CKD-EPI 2020) (mL/min/1.73m2) 98.38 Glucose (74-106) mg/dL 136 H Calcium (8.5-10.1) mg/dL 8.8 Total Bilirubin (0.2-1.0) mg/dL 0.22 AST (15-37) U/L 11 L ALT (16-63) U/L 14 L Alkaline Phosphatase (46-116) U/L 55 Troponin I (<or=76) ng/L 4 Total Protein (6.4-8.2) g/dL 7.1 Albumin (3.4-5.0) g/dL 3.1 L Quality:SDOH Health Related Social Needs: Health related social needs food insecurity PFSH All Active Problems (Updated 08/05/24 @ 02:44 by Sparkle Slater MD) Jaw pain (Acute) Knee pain (Acute) Hypomagnesemia (Acute) Pneumonia (Acute) Dental caries (Acute) Nicotine dependence (Acute) Dyspnea on exertion (Acute) Shortness of breath (Acute) Hypercholesterolemia (Chronic 09/07/14) pt insists on lipitor 80 mg due to family hx Depression (Acute 10/02/14) Left-sided chest wall pain (Acute) Chest pain (Acute) Chronic headache (Acute) Migraine headache without aura (Acute) Migraine (Chronic) Poor dentition (Acute) Tobacco use disorder (Chronic) started 2013 1.5 ppd, pipe 1-7/week, QUIT LATE OCT 2021 Allergic rhinitis (Chronic) lortadine Hiatal hernia (Chronic) protonix not effective, nexium works better 02/12/18 Anemia (Chronic) Broken teeth (Chronic) Drug-seeking behavior (Chronic ~09/20/21) Requests Ritalin from providers Medication overuse headache (Acute) Medical History Obesity BMI 52 Hypertension pt requests brand name Tenormin vs atenolol 04/02/18 GERD (gastroesophageal reflux disease) (09/07/14) Diabetes mellitus type 2 in obese (09/09/14) Hypothyroidism (acquired) (09/07/14) Schizoaffective disorder (09/07/14) [facility] 09/2014- [facility] inpatient Trigeminal neuralgia Anxiety Mitral valve prolapse Hyperlipidemia Peripheral neuropathy Surgical History No significant past surgical history Family History Father Heart disease PR Social History Smoking/Tobacco Use Status: Former Tobacco Use Smoking risk assessment performed?: Yes Alcohol Intake: never Drug use: Never Substance use type: does not use Adopted: No Caregiver/Support person: No Foster care: No Household members: none Housing: apartment Number of Children: 2 number of grandchildren: 1 Communication Needs: Corrective Lenses Education Level: college Do you need help understanding health information?: Always current occupation: Unemployed/Leave of absence Sexually active: No Do you think of yourself as: Decline to provide Current gender identity: male What type of physical activity do you participate in: other Details: weight lifting Frequency: 3-4 times per week Magalie/Hindu: Yazidi Seatbelt use: always Drive intox or ride w/intox hammer 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
[2024-08-05 00:53] LABS: Abs Immature Grans 0.02 10^3/uL (0.0-0.06); Absolute Basophil Count 0.02 10^3/uL (0.0-0.2); Absolute Lymphocyte Count 1.32 10^3/uL (1.2-3.4); Absolute Monocyte Count 0.46 10^3/uL (0.1-0.8); Absolute Neutrophil Count 3.24 10^3/uL (1.2-6.7); Basophils % 0.4 %; Eosinophils % 1.9 %; HGB 10.7 g/dL (13.5-17.5); Immature Grans % 0.4 %; Lymphocytes % 25.6 %; MCH 32.5 pg (27.0-33.0); MCHC 34.5 % (32.0-36.0); MCV 94 fL (80-95); MPV 9.1 fL (8.0-11.0); Monocytes % 8.9 %; Neutrophils % 62.8 %; Platelet Count 125 10^3/uL (130-400); RBC 3.29 10^6/uL (4.36-5.78); RDW 12.2 % (11.8-14.1); RDW-SD 42.3 fL; WBC 5.16 10^3/uL (4.4-10.8)
[2024-08-05 01:09] LABS: ALT 14 U/L (16-63); AST 11 U/L (15-37); Albumin 3.1 g/dL (3.4-5.0); Alkaline Phosphatase 55 U/L (46-116); Anion Gap 7.7 mmol/L (3-11); BUN 9 mg/dL (7-18); Bilirubin, Total 0.22 mg/dL (0.2-1.0); CO2 28.3 mmol/L (21.0-32.0); CREATININE 0.9 mg/dL (0.70-1.30); Calcium 8.8 mg/dL (8.5-10.1); Chloride 99 mmol/L (98-107); Estimated GFR 98.38 (mL/min/1.73m2); Glucose 136 mg/dL (74-106); Sodium 135 mmol/L (136-145); Total Protein 7.1 g/dL (6.4-8.2); Troponin I 4 ng/L (<or=76)
[2024-08-05 02:31] LABS: Troponin I 4 ng/L (<or=76)
[2024-08-05 02:49] VITALS: BP 152/70; PULSE 72; RESP 16; TEMP 36.6; O2SAT 98
== END 2024-08-05 02:50 | disposition home or self-care (01) ==
PROVIDERS: Emergency Provider Student in an Organized Health Care Education/Training Program; PCP Family Medicine
DX: R68.84 Jaw pain (principal)
CPT/HCPCS: 80053; 93005; 99282; 84484; 85025; 93010; 99283

== ENCOUNTER 2024-08-07 09:04 | Emergency (ER) | payer MEDICAID, SELFPAY ==
[2024-08-07] VITALS (19 sets, daily range): BP systolic 142; BP diastolic 60; PULSE 63–72; RESP 12–22; TEMP 37.3; O2SAT 96
--- NOTE | 2024-08-07 09:00 | RT.EKG_ITS ---
APPROVED REPORT Exam: Resting ECG Reason for Exam: C Patient Location: E HR:71 bpm ECG Measurements Heart Rate 71 AXIS TX 189 P 32 QRSd 100 QRS 9 QT 410 T 90 QTc 445 Conclusion Sinus rhythm...normal P axis, V-rate 60- 99
--- NOTE | 2024-08-07 09:00 | DI.RAD_ITS ---
Exam(s) XR PORTABLE CHEST AP EXAM: XR PORTABLE CHEST AP CLINICAL HISTORY: chest pain TECHNIQUE: 2D digital imaging was performed. COMPARISON: CR,XR XR CHEST 2V PA LATERAL from 07/20/2024 FINDINGS: Exam limited by under penetration. LUNGS: Clear. No pleural abnormality seen. HEART: Normal size. AORTA: Normal diameter. BONES: Unremarkable for age. Soft tissues: Unremarkable. IMPRESSION: No acute findings. DATA REPOSITORY: RADIATION DOSE DELIVERED:
--- NOTE | 2024-08-07 09:28 | ED.GENADUL_ITS ---
Discharge Plan Disposition Patient Disposition: Home Condition: Stable Discharge Details Clinical Impression: Chest pain, Hypomagnesemia Primary Care Provider: Brandon Foster ED Provider: Liang Ng Home Meds and New Rx's Prescriptions: Continued gabapentin 300 mg capsule 300 mg PO QID bupropion HCl 75 mg tablet 75 mg PO DAILY Rx Instructions: administer 6 hours apart sumatriptan succinate 100 mg tablet See Rx Instructions PO .COMPLEX Qty: 9 5RF Rx Instructions: take 1 tab at onset of headache; if no relief, may repeat 1 tab after at least 2 hrs; max = 2 tabs/24 hrs PO Nurtec ODT 75 mg tablet,disintegrating 75 mg PO ONCE PRN (Reason: migraine headache) Qty: 8 5RF Rx Instructions: as a single dose; no more than 1 tab per day Emgality Pen 120 mg/mL pen injector 120 mg subcut QMONTH Qty: 1 11RF Claritin Liqui-Gel 10 MG capsule 1 cap PO DAILY Qty: 90 multivitamin Tablet 1 tab PO DAILY metformin 500 mg tablet 1 tab PO BID clonazepam 0.5 mg tablet See Rx Instructions .ROUTE .COMPLEX Rx Instructions: 1 tab in AM, 1 tab at Noon and 2 tab QHS simvastatin 80 mg tablet 80 mg PO DAILY Patient Comments: Take 1 tablet by mouth once a day ondansetron HCl 4 mg tablet 4 mg PO Q8H PRN Patient Comments: Take 1 tablet by mouth every eight hours as needed as directed benztropine 0.5 MG tablet 0.5 mg PO BID aspirin,buffd-calcium carb-mag 325 MG tablet 325 mg PO DAILY lactulose 10 gram/15 mL solution 20 g PO DIRECTED PRN Patient Comments: TAKE ONE TO TWO TABLESPOONS BY MOUTH NEEDED WHEN 3 DAYS PASS WITHOUT BOWEL MOVEMENT albuterol sulfate 90 mcg/actuation aerosol powdr breath activated 2 inh IH Q6H PRN (Reason: shortness of breath or wheezing) Qty: 1 0RF fluoxetine 40 mg capsule 80 mg PO DAILY atenolol 25 mg tablet 75 mg PO DAILY Patient Comments: Take 3 tablet by mouth once a day Invega Sustenna 117 mg/0.75 mL syringe 117 mg IM Q30D divalproex [Depakote ER] 500 mg tablet extended release 24 hr 1,000 mg PO BID omeprazole 40 mg capsule,delayed release(DR/EC) 40 mg PO DAILY Patient Comments: TAKE 1 CAPSULE BY MOUTH DAILY FOR HEARTBURN Discharge Instructions Instructions: Chest Pain, Adult ED, Hypomagnesemia Additional Instructions: Please contact your primary care physician to arrange follow-up. Call today. Return to the ER immediately for any worsening or new concerning symptoms. Referrals: Brandon Foster [Primary Care Provider] - [facility] General Mode of arrival: EMS . Date/Time Provider Initiated Documentation: 08/07/24 09:12 . Limitations to Documentation: no limitations . Information obtained by: patient and EMS . HPI Narrative: 59-year-old male with multiple medical problems including history of anxiety, depression, lvj-kuzeeag-iohvkozil diabetes, GERD, hypertension, hypercholesterolemia, hypothyroidism, presents with chief complaint of chest pain. Patient notes pain started this morning around 1 hour prior to arrival. Pain started as a piercing burning sensation in his left chest. Pain subsequently feels like a pressure rated 6/10. He has associated anxiety. Patient does note dyspnea on exertion over the past 2 months. No leg swelling or calf pain. No acute shortness of breath. Related Data Home Medications ?Medication ?Instructions ?Recorded ?Confirmed loratadine 10 mg capsule (Claritin 1 cap PO DAILY #90 tabs 12/16/14 08/07/24 Liqui-Gel) aspirin,buffered (calcium 325 mg PO DAILY 11/18/16 08/07/24 carbonate-magnesium) 325 mg tablet benztropine 0.5 mg tablet 0.5 mg PO BID 11/18/16 08/07/24 lactulose 10 gram/15 mL oral 20 g PO DIRECTED PRN 10/03/20 08/07/24 solution albuterol sulfate 90 mcg/actuation 2 inh inhalation Q6H PRN shortness 12/15/20 08/07/24 breath activated powder inhaler of breath or wheezing #1 ea multivitamin 1 tab PO DAILY 01/26/21 08/07/24 metformin 500 mg tablet 1 tab PO BID 03/18/22 08/07/24 clonazepam 0.5 mg tablet See Rx Instructions .Route .COMPLEX 03/04/23 08/07/24 fluoxetine 40 mg capsule 80 mg PO DAILY 03/08/23 08/07/24 gabapentin 300 mg capsule 300 mg PO QID 03/27/23 08/07/24 atenolol 25 mg tablet 75 mg PO DAILY 01/31/24 08/07/24 divalproex 500 mg tablet,extended 1,000 mg PO BID 01/31/24 08/07/24 release 24 hr (Depakote ER) omeprazole 40 mg capsule,delayed 40 mg PO DAILY 01/31/24 08/07/24 release paliperidone palmitate 117 mg/0.75 117 mg IM Q30D 01/31/24 08/07/24 mL intramuscular syringe (Invega Sustenna) simvastatin 80 mg tablet 80 mg PO DAILY 03/08/24 08/07/24 ondansetron HCl 4 mg tablet 4 mg PO Q8H PRN 07/22/24 08/07/24 bupropion HCl 75 mg tablet 75 mg PO DAILY 08/04/24 08/07/24 galcanezumab-gnlm 120 mg/mL 120 mg subcut QMONTH #1 mL 08/04/24 08/07/24 subcutaneous pen injector (Emgality Pen) rimegepant 75 mg disintegrating 75 mg PO ONCE PRN migraine 08/04/24 08/07/24 tablet (Nurtec ODT) headache #8 tabs sumatriptan succinate 100 mg tablet See Rx Instructions PO .COMPLEX #9 08/04/24 08/07/24 tabs Previous Rx's ?Medication ?Instructions ?Recorded albuterol sulfate 90 mcg/actuation 2 inh inhalation Q6H PRN shortness 12/15/20 breath activated powder inhaler of breath or wheezing #1 ea galcanezumab-gnlm 120 mg/mL 120 mg subcut QMONTH #1 mL 08/04/24 subcutaneous pen injector (Emgality Pen) rimegepant 75 mg disintegrating 75 mg PO ONCE PRN migraine 08/04/24 tablet (Nurtec ODT) headache #8 tabs sumatriptan succinate 100 mg tablet See Rx Instructions PO .COMPLEX #9 08/04/24 tabs Allergies Allergy/AdvReac Type Severity Reaction Status Date / Time buspirone Allergy Other (See Verified 08/07/24 09:21 Comment) paliperidone Allergy Other (See Verified 08/07/24 09:21 Comment) paroxetine HCl (From Paxil) Allergy Other (See Verified 08/07/24 09:21 Comment) sertraline Allergy Other (See Verified 08/07/24 09:21 Comment) ziprasidone (From Geodon) Allergy Other (See Verified 08/07/24 09:21 Comment) aripiprazole (From Abibrayden) AdvReac Intermediate INVOLUNTARY Verified 08/07/24 09:21 MUSCLE MOVEMENTS mirtazapine AdvReac Intermediate INVOLUNTARY Verified 08/07/24 09:21 MUSCLE MOVEMENTS risperidone AdvReac Intermediate INVOLUNTARY Verified 08/07/24 09:21 MUSCLE MOVEMENTS enviornmental Allergy Mild Wheezing Uncoded 08/07/24 09:21 General Stated Complaint: Chest Pain CARLOS: 3 Review of Systems All systems reviewed & are unremarkable except as noted in HPI and below Constitutional Constitutional: Denies fever(s) Cardiovascular Cardiovascular: Reports chest pain Exam Const General: cooperative and no acute distress HENMT Mouth: moist mucous membranes Eyes Conjunctivae: normal conjunctivae Sclera: normal sclerae Neck Neck: trachea midline Resp Auscultation: clear to auscultation bilaterally, no rales, no rhonchi and no wheezes Cardio Rate: regular rate and not tachycardic Rhythm: regular rhythm GI Palpation: soft, not firm, no guarding, no masses, not rigid and nontender Skin General skin exam: no rashes or lesions noted Neuro General: patient alert, patient awake, patient oriented x3 and tone normal Extrem General: no calf tenderness and no edema Psych Appearance: grossly normal Mental Status: mental status grossly normal Mood: anxious mood Course Vital Signs Vital signs: Vital Signs Temperature 37.3 C 08/07/24 09:05 Pulse 72 08/07/24 09:05 Respiratory Rate 16 08/07/24 09:05 Blood Pressure 142/60 H 08/07/24 09:05 Pulse Oximetry 96 08/07/24 09:05 Temperature 37.3 C 08/07/24 09:05 Temperature Source Oral 08/07/24 09:05 Pulse 72 08/07/24 09:05 Respiratory Rate 16 08/07/24 09:05 Blood Pressure 142/60 H 08/07/24 09:05 Pulse Oximetry 96 08/07/24 09:05 Oxygen Delivery Method Room Air 08/07/24 09:05 Oxygen Flow Rate 0 08/07/24 09:05 Medical Decision Making 59-year-old male with multimedical problems including history of hypertension, diabetes, hypercholesterolemia, anxiety, GERD, here with chest pain that started an hour prior to arrival. Pain is reproducible on exam. Given risk factors, patient is high risk for ACS. Presentation is not typical of ACS presentation, given his risk factors I will screen with high-sensitivity troponin. Patient requested angiolytic. Ativan 1 mg orally was administered. EKG was reviewed interpreted by me: Please report, sinus rhythm 71 bpm, normal axis, no STEMI. Nondiagnostic. Labs reviewed: Magnesium low at 1.6. Oral magnesium supplementation was provided. Initial troponin 5. 1 hour repeat troponin unchanged at 5. Patient deemed low risk by high-sensitivity troponin decision made. Patient reassessed has remained hemodynamically stable. He notes improvement in pain after angiolytic. Suspect musculoskeletal versus anxiety. Plan for discharge with outpatient follow-up with PCP. Usual customary discharge instructions were reviewed. Patient was encouraged to return immediately should you have any worsening or new concerning symptoms. Lab Data Lab results reviewed: Yes I reviewed the patient's lab results. Labs: Laboratory Tests Range/Units 08/07/24 08/07/24 09:35 11:11 WBC (4.4-10.8) 10^3/uL 4.96 RBC (4.36-5.78) 10^6/uL 3.24 L Hgb (13.5-17.5) g/dL 10.5 L Hct (40.0-50.0) % 31.2 L MCV (80-95) fL 96 H MCH (27.0-33.0) pg 32.4 MCHC (32.0-36.0) % 33.7 RDW (11.8-14.1) % 12.4 Plt Count (130-400) 10^3/uL 121 L MPV (8.0-11.0) fL 9.2 Immature Gran % % 0.6 Neutrophils % % 51.8 Lymphocytes % % 33.9 Monocytes % % 10.3 Eosinophils % % 3.0 Basophils % % 0.4 Nucleated RBC % (0.0-0.3) % 0.0 Absolute Neutrophils (1.2-6.7) 10^3/uL 2.57 Absolute Lymphocytes (1.2-3.4) 10^3/uL 1.68 Absolute Monocytes (0.1-0.8) 10^3/uL 0.51 Absolute Eosinophils (0.0-0.7) 10^3/uL 0.15 Absolute Basophils (0.0-0.2) 10^3/uL 0.02 Sodium (136-145) mmol/L 138 Potassium (3.5-5.1) mmol/L 4.0 Chloride (98-107) mmol/L 102 Carbon Dioxide (21.0-32.0) mmol/L 27.7 Anion Gap (3-11) mmol/L 8.3 BUN (7-18) mg/dL 16 Creatinine (0.70-1.30) mg/dL 0.9 Est GFR (CKD-EPI 2020) (mL/min/1.73m2) 98.38 Glucose (74-106) mg/dL 130 H Calcium (8.5-10.1) mg/dL 8.6 Magnesium (1.8-2.4) mg/dL 1.6 L Total Bilirubin (0.2-1.0) mg/dL 0.19 L AST (15-37) U/L 9 L ALT (16-63) U/L 17 Alkaline Phosphatase (46-116) U/L 54 Troponin I (<or=76) ng/L 5 5 NT-Pro-B Natriuret Pep (<300) pg/mL 115 Total Protein (6.4-8.2) g/dL 7.0 Albumin (3.4-5.0) g/dL 2.9 L Quality:SDOH Health Related Social Needs: Health related social needs food insecurity PFSH All Active Problems Hypomagnesemia (Acute) Chest pain (Acute) Jaw pain (Acute) Knee pain (Acute) Hypomagnesemia (Acute) Pneumonia (Acute) Dental caries (Acute) Nicotine dependence (Acute) Dyspnea on exertion (Acute) Shortness of breath (Acute) Hypercholesterolemia (Chronic 09/07/14) pt insists on lipitor 80 mg due to family hx Depression (Acute 10/02/14) Left-sided chest wall pain (Acute) Chest pain (Acute) Chronic headache (Acute) Migraine headache without aura (Acute) Migraine (Chronic) Poor dentition (Acute) Tobacco use disorder (Chronic) started 2013 1.5 ppd, pipe 1-7/week, QUIT LATE OCT 2021 Allergic rhinitis (Chronic) lortadine Hiatal hernia (Chronic) protonix not effective, nexium works better 02/12/18 Anemia (Chronic) Broken teeth (Chronic) Drug-seeking behavior (Chronic ~09/20/21) Requests Ritalin from providers Medication overuse headache (Acute) Medical History Obesity BMI 52 Hypertension pt requests brand name Tenormin vs atenolol 04/02/18 GERD (gastroesophageal reflux disease) (09/07/14) Diabetes mellitus type 2 in obese (09/09/14) Hypothyroidism (acquired) (09/07/14) Schizoaffective disorder (09/07/14) Rebekah Mariscal [facility] 09/2014- REPLACED BY [facility] inpatient Trigeminal neuralgia Anxiety Mitral valve prolapse Hyperlipidemia Peripheral neuropathy Surgical History No significant past surgical history Family History Father Heart disease [place] Social History Smoking/Tobacco Use Status: Former Tobacco Use Smoking risk assessment performed?: Yes Alcohol Intake: never Drug use: Never Substance use type: does not use Adopted: No Caregiver/Support person: No Foster care: No Household members: none Housing: apartment Number of Children: 2 number of grandchildren: 1 Communication Needs: Corrective Lenses Education Level: college Do you need help understanding health information?: Always current occupation: Unemployed/Leave of absence Sexually active: No Do you think of yourself as: Decline to provide Current gender identity: male What type of physical activity do you participate in: other Details: weight lifting Frequency: 3-4 times per week Magalie/Jainism: Evangelical Seatbelt use: always Drive intox or ride w/intox independent 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
[2024-08-07 09:43] LABS: Abs Immature Grans 0.03 10^3/uL (0.0-0.06); Absolute Basophil Count 0.02 10^3/uL (0.0-0.2); Absolute Eosinophil Count 0.15 10^3/uL (0.0-0.7); Absolute Lymphocyte Count 1.68 10^3/uL (1.2-3.4); Absolute Monocyte Count 0.51 10^3/uL (0.1-0.8); Absolute Neutrophil Count 2.57 10^3/uL (1.2-6.7); Basophils % 0.4 %; HCT 31.2 % (40.0-50.0); HGB 10.5 g/dL (13.5-17.5); Immature Grans % 0.6 %; Lymphocytes % 33.9 %; MCH 32.4 pg (27.0-33.0); MCHC 33.7 % (32.0-36.0); MCV 96 fL (80-95); MPV 9.2 fL (8.0-11.0); Monocytes % 10.3 %; Neutrophils % 51.8 %; Platelet Count 121 10^3/uL (130-400); RBC 3.24 10^6/uL (4.36-5.78); RDW 12.4 % (11.8-14.1); RDW-SD 43.7 fL; WBC 4.96 10^3/uL (4.4-10.8)
[2024-08-07] MEDS: LORazepam 1 MG TAB PO (10:11)
[2024-08-07 10:13] LABS: NT-proBNP 115 pg/mL (<300)
[2024-08-07 10:28] LABS: ALT 17 U/L (16-63); AST 9 U/L (15-37); Albumin 2.9 g/dL (3.4-5.0); Alkaline Phosphatase 54 U/L (46-116); Anion Gap 8.3 mmol/L (3-11); BUN 16 mg/dL (7-18); Bilirubin, Total 0.19 mg/dL (0.2-1.0); CO2 27.7 mmol/L (21.0-32.0); CREATININE 0.9 mg/dL (0.70-1.30); Calcium 8.6 mg/dL (8.5-10.1); Chloride 102 mmol/L (98-107); Estimated GFR 98.38 (mL/min/1.73m2); Glucose 130 mg/dL (74-106); Magnesium 1.6 mg/dL (1.8-2.4); Sodium 138 mmol/L (136-145); Troponin I 5 ng/L (<or=76)
[2024-08-07] MEDS: Magnesium Oxide 400 MG TAB 800 MG PO (11:39)
[2024-08-07 11:44] LABS: Troponin I 5 ng/L (<or=76)
== END 2024-08-07 12:59 | disposition home or self-care (01) ==
PROVIDERS: Emergency Provider Student in an Organized Health Care Education/Training Program; PCP Family Medicine
DX: R07.89 Other chest pain (principal); E83.42 Hypomagnesemia; E11.9 Type 2 diabetes mellitus without complications; K21.9 Gastro-esophageal reflux disease without esophagitis; E78.00 Pure hypercholesterolemia, unspecified; Z79.82 Long term (current) use of aspirin; Z79.84 Long term (current) use of oral hypoglycemic drugs; Z87.891 Personal history of nicotine dependence
CPT/HCPCS: 36415; 80053; 93005; 99285; 71045; 83735; 83880; 84484; 85025; 93010; 99284

== ENCOUNTER 2024-08-11 00:33 | Emergency (ER) | payer MEDICAID, SELFPAY ==
--- NOTE | 2024-08-11 00:30 | RT.EKG_ITS ---
APPROVED REPORT Exam: Resting ECG Reason for Exam: chest pain Patient Location: E HR:74 bpm ECG Measurements Heart Rate 74 AXIS MT 196 P 32 QRSd 95 QRS 14 QT 396 T 95 QTc 439 Conclusion Sinus rhythm...normal P axis, V-rate 60- 99 Nonspecific T abnrm, anterolateral leads...T <-0.10mV, I aVL V2-V6 PHysician: no stemi
--- NOTE | 2024-08-11 00:45 | ED.GENADUL_ITS ---
Discharge Plan Disposition Patient Disposition: Home Condition: Good Discharge Details Chief Complaint: GenMedical Clinical Impression: Acid reflux Primary Care Provider: Brandon Foster ED Provider: Froilan Iraheta Home Meds and New Rx's Prescriptions: No Action gabapentin 300 mg capsule 300 mg PO QID bupropion HCl 75 mg tablet 75 mg PO DAILY Rx Instructions: administer 6 hours apart sumatriptan succinate 100 mg tablet See Rx Instructions PO .COMPLEX Qty: 9 5RF Rx Instructions: take 1 tab at onset of headache; if no relief, may repeat 1 tab after at least 2 hrs; max = 2 tabs/24 hrs PO Nurtec ODT 75 mg tablet,disintegrating 75 mg PO ONCE PRN (Reason: migraine headache) Qty: 8 5RF Rx Instructions: as a single dose; no more than 1 tab per day Emgality Pen 120 mg/mL pen injector 120 mg subcut QMONTH Qty: 1 11RF Claritin Liqui-Gel 10 MG capsule 1 cap PO DAILY Qty: 90 multivitamin Tablet 1 tab PO DAILY metformin 500 mg tablet 1 tab PO BID clonazepam 0.5 mg tablet See Rx Instructions .ROUTE .COMPLEX Rx Instructions: 1 tab in AM, 1 tab at Noon and 2 tab QHS simvastatin 80 mg tablet 80 mg PO DAILY Patient Comments: Take 1 tablet by mouth once a day ondansetron HCl 4 mg tablet 4 mg PO Q8H PRN Patient Comments: Take 1 tablet by mouth every eight hours as needed as directed benztropine 0.5 MG tablet 0.5 mg PO BID aspirin,buffd-calcium carb-mag 325 MG tablet 325 mg PO DAILY lactulose 10 gram/15 mL solution 20 g PO DIRECTED PRN Patient Comments: TAKE ONE TO TWO TABLESPOONS BY MOUTH NEEDED WHEN 3 DAYS PASS WITHOUT BOWEL MOVEMENT albuterol sulfate 90 mcg/actuation aerosol powdr breath activated 2 inh IH Q6H PRN (Reason: shortness of breath or wheezing) Qty: 1 0RF fluoxetine 40 mg capsule 80 mg PO DAILY atenolol 25 mg tablet 75 mg PO DAILY Patient Comments: Take 3 tablet by mouth once a day Invega Sustenna 117 mg/0.75 mL syringe 117 mg IM Q30D divalproex [Depakote ER] 500 mg tablet extended release 24 hr 1,000 mg PO BID omeprazole 40 mg capsule,delayed release(DR/EC) 40 mg PO DAILY Patient Comments: TAKE 1 CAPSULE BY MOUTH DAILY FOR HEARTBURN Discharge Instructions Additional Instructions: Please follow-up closely with your mental health advocates. If you notice any worsening of your symptoms, or any new symptoms such as vomiting, diarrhea, fever, chills, shortness of breath, chest pain, numbness, weakness, or fainting , please return immediately to the emergency department for reevaluation. Please follow up with your primary care provider as soon as possible for reassessment and reevaluation. As always, it was a pleasure participating in your medical care today. Referrals: Brandon Foster [Primary Care Provider] - [facility] General Date/Time Provider Initiated Documentation: 08/11/24 00:43 . HPI Narrative: This is a 59-year-old male with a past medical history of anxiety, depression, type 2 diabetes, high cholesterol, obesity, schizoaffective disorder, hypothyroidism, chronic headaches presents today for evaluation of anxiety. Patient states that for the last hour or so he developed a mild burning sensation in his left upper quadrant of his abdomen, he also felt quite anxious. He contacted EMS and was brought in for further evaluation. He denies any chest heaviness or tightness. He denies any tearing or ripping sensation in his chest. He denies any vomiting or diarrhea. No other complaints at this time. No other modifying factors. Related Data Home Medications ?Medication ?Instructions ?Recorded ?Confirmed loratadine 10 mg capsule (Claritin 1 cap PO DAILY #90 tabs 12/16/14 08/11/24 Liqui-Gel) aspirin,buffered (calcium 325 mg PO DAILY 11/18/16 08/11/24 carbonate-magnesium) 325 mg tablet benztropine 0.5 mg tablet 0.5 mg PO BID 11/18/16 08/11/24 lactulose 10 gram/15 mL oral 20 g PO DIRECTED PRN 10/03/20 08/11/24 solution albuterol sulfate 90 mcg/actuation 2 inh inhalation Q6H PRN shortness 12/15/20 08/11/24 breath activated powder inhaler of breath or wheezing #1 ea multivitamin 1 tab PO DAILY 01/26/21 08/11/24 metformin 500 mg tablet 1 tab PO BID 03/18/22 08/11/24 clonazepam 0.5 mg tablet See Rx Instructions .Route .COMPLEX 03/04/23 08/11/24 fluoxetine 40 mg capsule 80 mg PO DAILY 03/08/23 08/11/24 gabapentin 300 mg capsule 300 mg PO QID 03/27/23 08/11/24 atenolol 25 mg tablet 75 mg PO DAILY 01/31/24 08/11/24 divalproex 500 mg tablet,extended 1,000 mg PO BID 01/31/24 08/11/24 release 24 hr (Depakote ER) omeprazole 40 mg capsule,delayed 40 mg PO DAILY 01/31/24 08/11/24 release paliperidone palmitate 117 mg/0.75 117 mg IM Q30D 01/31/24 08/11/24 mL intramuscular syringe (Invega Sustenna) simvastatin 80 mg tablet 80 mg PO DAILY 03/08/24 08/11/24 ondansetron HCl 4 mg tablet 4 mg PO Q8H PRN 07/22/24 08/11/24 bupropion HCl 75 mg tablet 75 mg PO DAILY 08/04/24 08/11/24 galcanezumab-gnlm 120 mg/mL 120 mg subcut QMONTH #1 mL 08/04/24 08/11/24 subcutaneous pen injector (Emgality Pen) rimegepant 75 mg disintegrating 75 mg PO ONCE PRN migraine 08/04/24 08/11/24 tablet (Nurtec ODT) headache #8 tabs sumatriptan succinate 100 mg tablet See Rx Instructions PO .COMPLEX #9 08/04/24 08/11/24 tabs Previous Rx's ?Medication ?Instructions ?Recorded albuterol sulfate 90 mcg/actuation 2 inh inhalation Q6H PRN shortness 12/15/20 breath activated powder inhaler of breath or wheezing #1 ea galcanezumab-gnlm 120 mg/mL 120 mg subcut QMONTH #1 mL 08/04/24 subcutaneous pen injector (Emgality Pen) rimegepant 75 mg disintegrating 75 mg PO ONCE PRN migraine 08/04/24 tablet (Nurtec ODT) headache #8 tabs sumatriptan succinate 100 mg tablet See Rx Instructions PO .COMPLEX #9 08/04/24 tabs Allergies Allergy/AdvReac Type Severity Reaction Status Date / Time buspirone Allergy Other (See Verified 08/07/24 09:21 Comment) paliperidone Allergy Other (See Verified 08/07/24 09:21 Comment) paroxetine HCl (From Paxil) Allergy Other (See Verified 08/07/24 09:21 Comment) sertraline Allergy Other (See Verified 08/07/24 09:21 Comment) ziprasidone (From Geodon) Allergy Other (See Verified 08/07/24 09:21 Comment) aripiprazole (From Abilify) AdvReac Intermediate INVOLUNTARY Verified 08/07/24 09:21 MUSCLE MOVEMENTS mirtazapine AdvReac Intermediate INVOLUNTARY Verified 08/07/24 09:21 MUSCLE MOVEMENTS risperidone AdvReac Intermediate INVOLUNTARY Verified 08/07/24 09:21 MUSCLE MOVEMENTS enviornmental Allergy Mild Wheezing Uncoded 08/07/24 09:21 General CARLOS: 3 Review of Systems All systems reviewed & are unremarkable except as noted in HPI and below Exam Narrative Exam Narrative: 1.Const: Well-nourished, Well-developed, appearing stated age 2.Eyes: PERRL, no conjunctival injection, and symmetrical lids. 3.ENT: Atraumatic external nose and ears. Moist MM. Neck: Symmetric, trachea midline, No thyromegaly. 4.CVS: +S1/S2, No murmurs or gallops. Peripheral pulses 2+ and equal in all extremities. Brisk capillary refill in all extremities. 5.RESP: Unlabored respiratory effort. Clear to auscultation bilaterally. No wheezes rales or rhonchi 6.GI: Soft, Nontender/Nondistended, No hepatosplenomegaly. No guarding or rebound. 7.MSK: Normocephalic/Atraumatic, Extremities w/o deformity or ttp No cyanosis or clubbing, Normal movement of all extremities 8.Skin: Warm, Dry. No rashes or lesions. 9.Neuro: sieve grader tender II-XII grossly intact. Sensation grossly intact, no focal neurologic deficits. 10.Psych: (AAO) x3. Appropriate mood and affect Medical Decision Making This is a 59-year-old male with a past medical history of anxiety, depression, type 2 diabetes, high cholesterol, obesity, schizoaffective disorder, hypothyroidism, chronic headaches presents today for evaluation of anxiety. Patient states that for the last hour or so he developed a mild burning sensation in his left upper quadrant of his abdomen, he also felt quite anxious. He contacted EMS and was brought in for further evaluation. He denies any chest heaviness or tightness. He denies any tearing or ripping sensation in his chest. He denies any vomiting or diarrhea. No other complaints at this time. No other modifying factors. Exam is notably benign. Lung sounds are clear, oxygenation is excellent, abdomen is nontender. Suspect mild reflux. Symptoms appear inconsistent with ACS. No tearing or ripping sensation to suggest dissection. No pleuritic chest pain to suggest PE. No trauma to suggest pneumothorax or rib fracture. Will get a screening EKG, give GI cocktail, monitor closely and reassess. 2:24 AM Patient is feeling much better after GI cocktail. Epigastric discomfort has completely resolved. He states that he does feel slightly anxious, and we are still awaiting callback from mental health. Patient otherwise feels well with no suicidal or homicidal ideations. No significant chest pain. 5:53 AM Patient has been in contact with [facility], they will help increase support services on an outpatient basis. He is content with plan. Patient demonstrates no evidence of ACS, PE dissection or other life-threatening etiology. No evidence of respiratory distress. Patient stable for discharge. I have extensively revi ewed the treatment plan and discharge instructions with the patient. I have addressed all patient concerns at this time. The patient was made aware of what symptoms to monitor for that would warrant a return to the emergency department. Discussed the plan with the patient, they demonstrate verbal understanding and agreement with our assessment and plan at this time. The documentation in this chart was dictated using [employer] dictation software. Please excuse any dictation errors. Quality:SDOH Health Related Social Needs: Health related social needs food insecurity PFSH All Active Problems (Updated 08/11/24 @ 05:54 by Froilan Iraheta DO) Acid reflux (Chronic) Hypomagnesemia (Acute) Chest pain (Acute) Jaw pain (Acute) Knee pain (Acute) Hypomagnesemia (Acute) Pneumonia (Acute) Dental caries (Acute) Nicotine dependence (Acute) Dyspnea on exertion (Acute) Shortness of breath (Acute) Hypercholesterolemia (Chronic 09/07/14) pt insists on lipitor 80 mg due to family hx Depression (Acute 10/02/14) Left-sided chest wall pain (Acute) Chest pain (Acute) Chronic headache (Acute) Migraine headache without aura (Acute) Migraine (Chronic) Poor dentition (Acute) Tobacco use disorder (Chronic) started 2013 1.5 ppd, pipe 1-7/week, QUIT LATE OCT 2021 Allergic rhinitis (Chronic) lortadine Hiatal hernia (Chronic) protonix not effective, nexium works better 02/12/18 Anemia (Chronic) Broken teeth (Chronic) Drug-seeking behavior (Chronic ~09/20/21) Requests Ritalin from providers Medication overuse headache (Acute) Medical History Obesity BMI 52 Hypertension pt requests brand name Tenormin vs atenolol 04/02/18 GERD (gastroesophageal reflux disease) (09/07/14) Diabetes mellitus type 2 in obese (09/09/14) Hypothyroidism (acquired) (09/07/14) Schizoaffective disorder (09/07/14) FREDDIE Thakkar 09/2014- [facility] inpatient Trigeminal neuralgia Anxiety Mitral valve prolapse Hyperlipidemia Peripheral neuropathy Surgical History No significant past surgical history Family History Father Heart disease [place] Social History Smoking/Tobacco Use Status: Former Tobacco Use Smoking risk assessment performed?: Yes Alcohol Intake: never Drug use: Never Substance use type: does not use Adopted: No Caregiver/Support person: No Foster care: No Household members: none Housing: apartment Number of Children: 2 number of grandchildren: 1 Communication Needs: Corrective Lenses Education Level: college Do you need help understanding health information?: Always current occupation: Unemployed/Leave of absence Sexually active: No Do you think of yourself as: Decline to provide Current gender identity: male What type of physical activity do you participate in: other Details: weight lifting Frequency: 3-4 times per week Magalie/Restoration: Confucianist Seatbelt use: always Drive intox or ride w/intox student 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
[2024-08-11 00:48] VITALS: BP 151/80; PULSE 76; RESP 22; TEMP 35.9; O2SAT 96
[2024-08-11 01:10] VITALS: RESP 20
--- NOTE | 2024-08-11 04:13 | NUR.NOTE ---
Nursing Note: pt resting, po fluids given, pt spoke to mental health via video, pt has been given assistance and will have his counselor follow up with him later today. pt is calm and cooperative. NAD, resting in the room, pt will be discharged home with RCT
--- NOTE | 2024-08-11 07:10 | NUR.NOTE ---
Access chart to reconcile EKG orders and EKG's in [facility]. Duplicate order cancelled. Nursing Note:
== END 2024-08-11 06:04 | disposition home or self-care (01) ==
PROVIDERS: Emergency Provider Student in an Organized Health Care Education/Training Program; PCP Family Medicine
DX: F41.9 Anxiety disorder, unspecified (principal); R07.9 Chest pain, unspecified; E11.9 Type 2 diabetes mellitus without complications; E78.5 Hyperlipidemia, unspecified; I10 Essential (primary) hypertension; Z79.84 Long term (current) use of oral hypoglycemic drugs; Z87.891 Personal history of nicotine dependence; K21.9 Gastro-esophageal reflux disease without esophagitis
CPT/HCPCS: 93005; 99283; 93010

== ENCOUNTER 2024-08-26 23:46 | Emergency (ER) | payer MEDICAID, SELFPAY ==
[2024-08-26 23:51] VITALS: BP 165/65; PULSE 72; RESP 19; TEMP 36.9; O2SAT 97
--- NOTE | 2024-08-27 00:09 | W.ED.GENAD ---
Discharge Plan Disposition Patient Disposition: Home Condition: Good Discharge Details Chief Complaint: Headache Clinical Impression: Headache Primary Care Provider: Brandon Foster ED Provider: Froilan Iraheta Home Meds and New Rx's Prescriptions: No Action gabapentin 300 mg capsule 300 mg PO QID bupropion HCl 75 mg tablet 75 mg PO DAILY Rx Instructions: administer 6 hours apart sumatriptan succinate 100 mg tablet See Rx Instructions PO .COMPLEX Qty: 9 5RF Rx Instructions: take 1 tab at onset of headache; if no relief, may repeat 1 tab after at least 2 hrs; max = 2 tabs/24 hrs PO Nurtec ODT 75 mg tablet,disintegrating 75 mg PO ONCE PRN (Reason: migraine headache) Qty: 8 5RF Rx Instructions: as a single dose; no more than 1 tab per day Emgality Pen 120 mg/mL pen injector 120 mg subcut QMONTH Qty: 1 11RF Claritin Liqui-Gel 10 MG capsule 1 cap PO DAILY Qty: 90 multivitamin Tablet 1 tab PO DAILY metformin 500 mg tablet 1 tab PO BID clonazepam 0.5 mg tablet See Rx Instructions .ROUTE .COMPLEX Rx Instructions: 1 tab in AM, 1 tab at Noon and 2 tab QHS simvastatin 80 mg tablet 80 mg PO DAILY Patient Comments: Take 1 tablet by mouth once a day ondansetron HCl 4 mg tablet 4 mg PO Q8H PRN Patient Comments: Take 1 tablet by mouth every eight hours as needed as directed benztropine 0.5 MG tablet 0.5 mg PO BID aspirin,buffd-calcium carb-mag 325 MG tablet 325 mg PO DAILY lactulose 10 gram/15 mL solution 20 g PO DIRECTED PRN Patient Comments: TAKE ONE TO TWO TABLESPOONS BY MOUTH NEEDED WHEN 3 DAYS PASS WITHOUT BOWEL MOVEMENT albuterol sulfate 90 mcg/actuation aerosol powdr breath activated 2 inh IH Q6H PRN (Reason: shortness of breath or wheezing) Qty: 1 0RF fluoxetine 40 mg capsule 80 mg PO DAILY atenolol 25 mg tablet 75 mg PO DAILY Patient Comments: Take 3 tablet by mouth once a day Invega Sustenna 117 mg/0.75 mL syringe 117 mg IM Q30D divalproex [Depakote ER] 500 mg tablet extended release 24 hr 1,000 mg PO BID omeprazole 40 mg capsule,delayed release(DR/EC) 40 mg PO DAILY Patient Comments: TAKE 1 CAPSULE BY MOUTH DAILY FOR HEARTBURN Discharge Instructions Instructions: Headache, Adult ED Additional Instructions: If you notice any worsening of your symptoms, or any new symptoms such as vomiting, diarrhea, fever, chills, shortness of breath, chest pain, numbness, weakness, or fainting , please return immediately to the emergency department for reevaluation. Please follow up with your primary care provider as soon as possible for reassessment and reevaluation. As always, it was a pleasure participating in your medical care today. Referrals: Brandon Foster [Primary Care Provider] - [facility] General Date/Time Provider Initiated Documentation: 08/26/24 23:50. HPI Narrative: This is a 59-year-old male with a past medical history of anxiety, depression, type 2 diabetes, high cholesterol, obesity, schizoaffective disorder, hypothyroidism, chronic headaches who presents today via EMS for evaluation of headache. Patient states that 1 hour ago he developed headache, it is described as aching in the front of his head. He did take his home medication of Tylenol, sumatriptan, and rimegepant. This is only within the last 40 to 50 minutes ago. He then called EMS and was asked be brought to the ER. The patient denies any headache red flags of worst headache of life, thunderclap headache, neck pain, fever, chills, concerning family history of polycystic kidney disease, Marfan syndrome, Carole-Danlos syndrome, abdominal aortic aneurysm, aortic dissection, or intracranial aneurysm. No other complaints at this time Related Data Home Medications ?Medication ?Instructions ?Recorded ?Confirmed loratadine 10 mg capsule (Claritin 1 cap PO DAILY #90 tabs 12/16/14 08/11/24 Liqui-Gel) aspirin,buffered (calcium 325 mg PO DAILY 11/18/16 08/11/24 carbonate-magnesium) 325 mg tablet benztropine 0.5 mg tablet 0.5 mg PO BID 11/18/16 08/11/24 lactulose 10 gram/15 mL oral 20 g PO DIRECTED PRN 10/03/20 08/11/24 solution albuterol sulfate 90 mcg/actuation 2 inh inhalation Q6H PRN shortness 12/15/20 08/11/24 breath activated powder inhaler of breath or wheezing #1 ea multivitamin 1 tab PO DAILY 01/26/21 08/11/24 metformin 500 mg tablet 1 tab PO BID 03/18/22 08/11/24 clonazepam 0.5 mg tablet See Rx Instructions .Route .COMPLEX 03/04/23 08/11/24 fluoxetine 40 mg capsule 80 mg PO DAILY 03/08/23 08/11/24 gabapentin 300 mg capsule 300 mg PO QID 03/27/23 08/11/24 atenolol 25 mg tablet 75 mg PO DAILY 01/31/24 08/11/24 divalproex 500 mg tablet,extended 1,000 mg PO BID 01/31/24 08/11/24 release 24 hr (Depakote ER) omeprazole 40 mg capsule,delayed 40 mg PO DAILY 01/31/24 08/11/24 release paliperidone palmitate 117 mg/0.75 117 mg IM Q30D 01/31/24 08/11/24 mL intramuscular syringe (Invega Sustenna) simvastatin 80 mg tablet 80 mg PO DAILY 03/08/24 08/11/24 ondansetron HCl 4 mg tablet 4 mg PO Q8H PRN 07/22/24 08/11/24 bupropion HCl 75 mg tablet 75 mg PO DAILY 08/04/24 08/11/24 galcanezumab-gnlm 120 mg/mL 120 mg subcut QMONTH #1 mL 08/04/24 08/11/24 subcutaneous pen injector (Emgality Pen) rimegepant 75 mg disintegrating 75 mg PO ONCE PRN migraine 08/04/24 08/11/24 tablet (Nurtec ODT) headache #8 tabs sumatriptan succinate 100 mg tablet See Rx Instructions PO .COMPLEX #9 08/04/24 08/11/24 tabs Previous Rx's ?Medication ?Instructions ?Recorded albuterol sulfate 90 mcg/actuation 2 inh inhalation Q6H PRN shortness 12/15/20 breath activated powder inhaler of breath or wheezing #1 ea galcanezumab-gnlm 120 mg/mL 120 mg subcut QMONTH #1 mL 08/04/24 subcutaneous pen injector (Emgality Pen) rimegepant 75 mg disintegrating 75 mg PO ONCE PRN migraine 08/04/24 tablet (Nurtec ODT) headache #8 tabs sumatriptan succinate 100 mg tablet See Rx Instructions PO .COMPLEX #9 08/04/24 tabs Allergies Allergy/AdvReac Type Severity Reaction Status Date / Time buspirone Allergy Other (See Verified 08/07/24 09:21 Comment) paliperidone Allergy Other (See Verified 08/07/24 09:21 Comment) paroxetine HCl (From Paxil) Allergy Other (See Verified 08/07/24 09:21 Comment) sertraline Allergy Other (See Verified 08/07/24 09:21 Comment) ziprasidone (From Geodon) Allergy Other (See Verified 08/07/24 09:21 Comment) aripiprazole (From Abilify) AdvReac Intermediate INVOLUNTARY Verified 08/07/24 09:21 MUSCLE MOVEMENTS mirtazapine AdvReac Intermediate INVOLUNTARY Verified 08/07/24 09:21 MUSCLE MOVEMENTS risperidone AdvReac Intermediate INVOLUNTARY Verified 08/07/24 09:21 MUSCLE MOVEMENTS enviornmental Allergy Mild Wheezing Uncoded 08/07/24 09:21 General Stated Complaint: Headache CARLOS: 4 Review of Systems All systems reviewed & are unremarkable except as noted in HPI and below Exam Narrative Exam Narrative: 1.Const: Well-nourished, Well-developed, appearing stated age 2.Eyes: PERRL, no conjunctival injection, and symmetrical lids. 3.ENT: Atraumatic external nose and ears. Moist MM. Neck: Symmetric, trachea midline, No thyromegaly. Patient demonstrates good movement of cervical neck. There is no nuchal rigidity, no nuchal tenderness. Patient is able to flex the neck without any difficulty or significant pain. Negative Kernig's and Brudzinski sign. 4.CVS: +S1/S2, Peripheral pulses 2+ and equal in all extremities. Brisk capillary refill in all extremities. 5.RESP: Unlabored respiratory effort. Clear to auscultation bilaterally. No wheezes rales or rhonchi 6.GI: Soft, Nontender/Nondistended, No hepatosplenomegaly. No guarding or rebound. 7.MSK: Normocephalic/Atraumatic, Extremities w/o deformity or ttp No cyanosis or clubbing, Normal movement of all extremities 8.Skin: Warm, Dry. No rashes or lesions. 9.Neuro: industrial relations director II-XII grossly intact. Sensation grossly intact, no focal neurologic deficits. All 6 cardinal planes of vision are fully intact. No evidence of rotatory or vertical nystagmus. The patient demonstrated a normal srvzkh-ujyk-tzmybo, good dexterity. There was no evidence of dysdiadochokinesia. Patient was able to ambulate without difficulty. There was no wide-based gait. Romberg testing was normal. Ijcf-ae-xbah testing was normal. Sensation was intact bilaterally as well as muscle strength bilaterally for all extremities. Patient was able to verbalize butter cup with no slurring, or miss pronunciation. 10.Psych: (AAO) x3. Appropriate mood and affect Course Vital Signs Vital signs: Vital Signs Temperature 36.9 C 08/26/24 23:51 Pulse 72 08/26/24 23:51 Respiratory Rate 19 08/26/24 23:51 Blood Pressure 165/65 H 08/26/24 23:51 Pulse Oximetry 97 08/26/24 23:51 Temperature 36.9 C 08/26/24 23:51 Temperature Source Temporal Artery Scan 08/26/24 23:51 Pulse 72 08/26/24 23:51 Respiratory Rate 19 08/26/24 23:51 Respiratory Effort Normal, Non-Labored 08/26/24 23:59 Blood Pressure 165/65 H 08/26/24 23:51 Blood Pressure Position Sitting 08/26/24 23:51 Pulse Oximetry 97 08/26/24 23:51 Oxygen Delivery Method Room Air 08/26/24 23:51 Oxygen Flow Rate 0 08/26/24 23:51 Pain Level 10 08/26/24 23:51 Medical Decision Making This is a 59-year-old male with a past medical history of anxiety, depression, type 2 diabetes, high cholesterol, obesity, schizoaffective disorder, hypothyroidism, chronic headaches who presents today via EMS for evaluation of headache. Patient states that 1 hour ago he developed headache, it is described as aching in the front of his head. He did take his home medication of Tylenol, sumatriptan, and rimegepant. This is only within the last 40 to 50 minutes ago. He then called EMS and was asked be brought to the ER. The patient denies any headache red flags of worst headache of life, thunderclap headache, neck pain, fever, chills, concerning family history of polycystic kidney disease, Marfan syndrome, Carole-Danlos syndrome, abdominal aortic aneurysm, aortic dissection, or intracranial aneurysm. No other complaints at this time Exam demonstrates well-appearing male, no nuchal rigidity, or meningeal signs. Normal neurologic assessment. Symptoms at this time appear clinically inconsistent with intracranial hemorrhage, aneurysm, or meningitis based on clinical assessment and exam. We will give Toradol, Benadryl, Solu-Medrol, and Compazine. Will monitor closely and reassess. No indication for emergent imaging. No indication for lumbar puncture at this time based on assessment. 1:06 AM On reassessment patient feels much better. Headache is notably improved. He feels well and would like to go home. Patient requested to leave the ED and sit in the waiting room and wait for RCT. I do think that this is reasonable and we will oblige his request. Symptoms inconsistent with meningitis, brain bleed, or other acute etiology. Patient will be discharged. I have extensively reviewed the treatment plan and discharge instructions with the patient. I have addressed all patient concerns at this time. The patient was made aware of what symptoms to monitor for that would warrant a return to the emergency department. Discussed the plan with the patient, they demonstrate verbal understanding and agreement with our assessment and plan at this time. The documentation in this chart was dictated using [employer]gl[employer] dictation software. Please excuse any dictation errors. Quality:SDOH Health Related Social Needs: Health related social needs food insecurity(Z59.41) PFSH All Active Problems (Updated 08/27/24 @ 01:07 by Froilan Iraheta DO) Headache (Acute) Acid reflux (Chronic) Hypomagnesemia (Acute) Chest pain (Acute) Jaw pain (Acute) Knee pain (Acute) Dental caries (Acute) Nicotine dependence (Acute) Dyspnea on exertion (Acute) Shortness of breath (Acute) Hypercholesterolemia (Chronic 09/07/14) pt insists on lipitor 80 mg due to family hx Depression (Acute 10/02/14) Left-sided chest wall pain (Acute) Chest pain (Acute) Chronic headache (Acute) Migraine headache without aura (Acute) Migraine (Chronic) Poor dentition (Acute) Tobacco use disorder (Chronic) started 2013 1.5 ppd, pipe 1-7/week, QUIT LATE OCT 2021 Allergic rhinitis (Chronic) lortadine Hiatal hernia (Chronic) protonix not effective, nexium works better 02/12/18 Anemia (Chronic) Broken teeth (Chronic) Drug-seeking behavior (Chronic ~09/20/21) Requests Ritalin from providers Medication overuse headache (Acute) Medical History Obesity BMI 52 Hypertension pt requests brand name Tenormin vs atenolol 04/02/18 GERD (gastroesophageal reflux disease) (09/07/14) Diabetes mellitus type 2 in obese (09/09/14) Hypothyroidism (acquired) (09/07/14) Schizoaffective disorder (09/07/14) Rebekah Mariscal [facility] 09/2014- [facility] inpatient Trigeminal neuralgia Anxiety Mitral valve prolapse Hyperlipidemia Peripheral neuropathy Surgical History No significant past surgical history Family History Father Heart disease [place] Social History Smoking/Tobacco Use Status: Former Tobacco Use Smoking risk assessment performed?: Yes Alcohol Intake: never Drug use: Never Substance use type: does not use Adopted: No Caregiver/Support person: No Foster care: No Household members: none Housing: apartment Number of Children: 2 number of grandchildren: 1 Communication Needs: Corrective Lenses Education Level: college Do you need help understanding health information?: Always current occupation: Unemployed/Leave of absence Sexually active: No Do you think of yourself as: Decline to provide Current gender identity: male What type of physical activity do you participate in: other Details: weight lifting Frequency: 3-4 times per week Magalie/Taoist: Latter Day Seatbelt use: always Drive intox or ride w/intox 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
[2024-08-27] MEDS: diphenhydrAMINE 50 MG/ML VIAL 25 MG IM/IVP (00:16)
[2024-08-27] MEDS: Ketorolac 30 MG/ML VIAL IM (00:17)
[2024-08-27] MEDS: methylPREDNISolone SUCC 125 MG VIAL IM (00:17)
[2024-08-27] MEDS: Prochlorperazine 10 MG/2 ML VIAL IM (00:17)
== END 2024-08-27 01:07 | disposition home or self-care (01) ==
PROVIDERS: Emergency Provider Student in an Organized Health Care Education/Training Program; PCP Family Medicine
DX: R51.9 Headache, unspecified (principal); E11.9 Type 2 diabetes mellitus without complications; E03.9 Hypothyroidism, unspecified; E78.5 Hyperlipidemia, unspecified; Z79.84 Long term (current) use of oral hypoglycemic drugs; Z87.891 Personal history of nicotine dependence
CPT/HCPCS: 96372; 96374; 99284; 99283; J0780; J1200; J1885; J2919

== ENCOUNTER 2024-09-04 19:38 | Emergency (ER) | payer MEDICAID, SELFPAY ==
[2024-09-04] VITALS (12 sets, daily range): BP systolic 144; BP diastolic 91; PULSE 66–97; RESP 18; TEMP 36.6; O2SAT 97
--- NOTE | 2024-09-04 19:30 | RT.EKG_ITS ---
APPROVED REPORT Exam: Resting ECG Reason for Exam: C/P Patient Location: E HR:70 bpm ECG Measurements Heart Rate 70 AXIS [place] 184 P 49 QRSd 97 QRS 22 QT 404 T 89 QTc 437 Conclusion Sinus rhythm, rate 70 No interval abnormalities No STEMI T wave inversion aVL, unchanged from priors
--- NOTE | 2024-09-04 20:18 | W.ED.GENAD ---
Discharge Plan Discharge Details Chief Complaint: Chest Pain Primary Care Provider: Brandon Foster ED Provider: Katarzyna Jennings Home Meds and New Rx's Prescriptions: No Action gabapentin 300 mg capsule 300 mg PO QID bupropion HCl 75 mg tablet 75 mg PO DAILY Rx Instructions: administer 6 hours apart sumatriptan succinate 100 mg tablet See Rx Instructions PO .COMPLEX Qty: 9 5RF Rx Instructions: take 1 tab at onset of headache; if no relief, may repeat 1 tab after at least 2 hrs; max = 2 tabs/24 hrs PO Nurtec ODT 75 mg tablet,disintegrating 75 mg PO ONCE PRN (Reason: migraine headache) Qty: 8 5RF Rx Instructions: as a single dose; no more than 1 tab per day Emgality Pen 120 mg/mL pen injector 120 mg subcut QMONTH Qty: 1 11RF Claritin Liqui-Gel 10 MG capsule 1 cap PO DAILY Qty: 90 multivitamin Tablet 1 tab PO DAILY metformin 500 mg tablet 1 tab PO BID clonazepam 0.5 mg tablet See Rx Instructions .ROUTE .COMPLEX Rx Instructions: 1 tab in AM, 1 tab at Noon and 2 tab QHS simvastatin 80 mg tablet 80 mg PO DAILY Patient Comments: Take 1 tablet by mouth once a day ondansetron HCl 4 mg tablet 4 mg PO Q8H PRN Patient Comments: Take 1 tablet by mouth every eight hours as needed as directed benztropine 0.5 MG tablet 0.5 mg PO BID aspirin,buffd-calcium carb-mag 325 MG tablet 325 mg PO DAILY lactulose 10 gram/15 mL solution 20 g PO DIRECTED PRN Patient Comments: TAKE ONE TO TWO TABLESPOONS BY MOUTH NEEDED WHEN 3 DAYS PASS WITHOUT BOWEL MOVEMENT albuterol sulfate 90 mcg/actuation aerosol powdr breath activated 2 inh IH Q6H PRN (Reason: shortness of breath or wheezing) Qty: 1 0RF fluoxetine 40 mg capsule 80 mg PO DAILY atenolol 25 mg tablet 75 mg PO DAILY Patient Comments: Take 3 tablet by mouth once a day Invega Sustenna 117 mg/0.75 mL syringe 117 mg IM Q30D divalproex [Depakote ER] 500 mg tablet extended release 24 hr 1,000 mg PO BID omeprazole 40 mg capsule,delayed release(DR/EC) 40 mg PO DAILY Patient Comments: TAKE 1 CAPSULE BY MOUTH DAILY FOR HEARTBURN HPI General Date/Time Provider Initiated Documentation: 09/04/24 19:54. Related Data Home Medications ?Medication ?Instructions ?Recorded ?Confirmed loratadine 10 mg capsule (Claritin 1 cap PO DAILY #90 tabs 12/16/14 08/11/24 Liqui-Gel) aspirin,buffered (calcium 325 mg PO DAILY 11/18/16 08/11/24 carbonate-magnesium) 325 mg tablet benztropine 0.5 mg tablet 0.5 mg PO BID 11/18/16 08/11/24 lactulose 10 gram/15 mL oral 20 g PO DIRECTED PRN 10/03/20 08/11/24 solution albuterol sulfate 90 mcg/actuation 2 inh inhalation Q6H PRN shortness 12/15/20 08/11/24 breath activated powder inhaler of breath or wheezing #1 ea multivitamin 1 tab PO DAILY 01/26/21 08/11/24 metformin 500 mg tablet 1 tab PO BID 03/18/22 08/11/24 clonazepam 0.5 mg tablet See Rx Instructions .Route .COMPLEX 03/04/23 08/11/24 fluoxetine 40 mg capsule 80 mg PO DAILY 03/08/23 08/11/24 gabapentin 300 mg capsule 300 mg PO QID 03/27/23 08/11/24 atenolol 25 mg tablet 75 mg PO DAILY 01/31/24 08/11/24 divalproex 500 mg tablet,extended 1,000 mg PO BID 01/31/24 08/11/24 release 24 hr (Depakote ER) omeprazole 40 mg capsule,delayed 40 mg PO DAILY 01/31/24 08/11/24 release paliperidone palmitate 117 mg/0.75 117 mg IM Q30D 01/31/24 08/11/24 mL intramuscular syringe (Invega Sustenna) simvastatin 80 mg tablet 80 mg PO DAILY 03/08/24 08/11/24 ondansetron HCl 4 mg tablet 4 mg PO Q8H PRN 07/22/24 08/11/24 bupropion HCl 75 mg tablet 75 mg PO DAILY 08/04/24 08/11/24 galcanezumab-gnlm 120 mg/mL 120 mg subcut QMONTH #1 mL 08/04/24 08/11/24 subcutaneous pen injector (Emgality Pen) rimegepant 75 mg disintegrating 75 mg PO ONCE PRN migraine 08/04/24 08/11/24 tablet (Nurtec ODT) headache #8 tabs sumatriptan succinate 100 mg tablet See Rx Instructions PO .COMPLEX #9 08/04/24 08/11/24 tabs Previous Rx's ?Medication ?Instructions ?Recorded albuterol sulfate 90 mcg/actuation 2 inh inhalation Q6H PRN shortness 12/15/20 breath activated powder inhaler of breath or wheezing #1 ea galcanezumab-gnlm 120 mg/mL 120 mg subcut QMONTH #1 mL 08/04/24 subcutaneous pen injector (Emgality Pen) rimegepant 75 mg disintegrating 75 mg PO ONCE PRN migraine 08/04/24 tablet (Nurtec ODT) headache #8 tabs sumatriptan succinate 100 mg tablet See Rx Instructions PO .COMPLEX #9 08/04/24 tabs Allergies Allergy/AdvReac Type Severity Reaction Status Date / Time buspirone Allergy Other (See Verified 08/07/24 09:21 Comment) paliperidone Allergy Other (See Verified 08/07/24 09:21 Comment) paroxetine HCl (From Paxil) Allergy Other (See Verified 08/07/24 09:21 Comment) sertraline Allergy Other (See Verified 08/07/24 09:21 Comment) ziprasidone (From Geodon) Allergy Other (See Verified 08/07/24 09:21 Comment) aripiprazole (From Abilify) AdvReac Intermediate INVOLUNTARY Verified 08/07/24 09:21 MUSCLE MOVEMENTS mirtazapine AdvReac Intermediate INVOLUNTARY Verified 08/07/24 09:21 MUSCLE MOVEMENTS risperidone AdvReac Intermediate INVOLUNTARY Verified 08/07/24 09:21 MUSCLE MOVEMENTS enviornmental Allergy Mild Wheezing Uncoded 08/07/24 09:21 General Stated Complaint: Chest Pain CARLOS: 3 Course Vital Signs Vital signs: Vital Signs Temperature 36.6 C 09/04/24 19:46 Pulse 97 H 09/04/24 19:46 Blood Pressure 144/91 H 09/04/24 19:46 Pulse Oximetry 97 09/04/24 19:46 Temperature 36.6 C 09/04/24 19:46 Temperature Source Oral 09/04/24 19:46 Pulse 97 H 09/04/24 19:46 Respiratory Rate 18 09/04/24 19:47 Respiratory Effort Normal 09/04/24 19:47 Respiratory Depth Normal 09/04/24 19:47 Respiratory Pattern Normal 09/04/24 19:47 Blood Pressure 144/91 H 09/04/24 19:46 Pulse Oximetry 97 09/04/24 19:46 Oxygen Delivery Method Room Air 09/04/24 19:46 Oxygen Flow Rate 0 09/04/24 19:46 Medical Decision Making Quality:SDOH Health Related Social Needs: Health related social needs food insecurity(Z59.41) PFSH All Active Problems (Updated 08/27/24 @ 01:07 by Froilan Iraheta DO) Headache (Acute) Acid reflux (Chronic) Hypomagnesemia (Acute) Chest pain (Acute) Jaw pain (Acute) Knee pain (Acute) Dental caries (Acute) Nicotine dependence (Acute) Dyspnea on exertion (Acute) Shortness of breath (Acute) Hypercholesterolemia (Chronic 09/07/14) pt insists on lipitor 80 mg due to family hx Depression (Acute 10/02/14) Left-sided chest wall pain (Acute) Chest pain (Acute) Chronic headache (Acute) Migraine headache without aura (Acute) Migraine (Chronic) Poor dentition (Acute) Tobacco use disorder (Chronic) started 2013 1.5 ppd, pipe 1-7/week, QUIT LATE OCT 2021 Allergic rhinitis (Chronic) lortadine Hiatal hernia (Chronic) protonix not effective, nexium works better 02/12/18 Anemia (Chronic) Broken teeth (Chronic) Drug-seeking behavior (Chronic ~09/20/21) Requests Ritalin from providers Medication overuse headache (Acute) Medical History Obesity BMI 52 Hypertension pt requests brand name Tenormin vs atenolol 04/02/18 GERD (gastroesophageal reflux disease) (09/07/14) Diabetes mellitus type 2 in obese (09/09/14) Hypothyroidism (acquired) (09/07/14) Schizoaffective disorder (09/07/14) FREDDIE Thakkar 09/2014- [facility] inpatient Trigeminal neuralgia Anxiety Mitral valve prolapse Hyperlipidemia Peripheral neuropathy Surgical History No significant past surgical history Family History Father Heart disease [place] Social History Smoking/Tobacco Use Status: Former Tobacco Use Smoking risk assessment performed?: Yes Alcohol Intake: never Drug use: Never Substance use type: does not use Adopted: No Caregiver/Support person: No Foster care: No Household members: none Housing: apartment Number of Children: 2 number of grandchildren: 1 Communication Needs: Corrective Lenses Education Level: college Do you need help understanding health information?: Always current occupation: Unemployed/Leave of absence Sexually active: No Do you think of yourself as: Decline to provide Current gender identity: male What type of physical activity do you participate in: other Details: weight lifting Frequency: 3-4 times per week Magalie/Episcopalian: Confucianist Seatbelt use: always Drive intox or ride w/intox cdl bulk 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
[2024-09-04 20:20] LABS: Abs Immature Grans 0.02 10^3/uL (0.0-0.06); Absolute Basophil Count 0.01 10^3/uL (0.0-0.2); Absolute Eosinophil Count 0.14 10^3/uL (0.0-0.7); Absolute Lymphocyte Count 1.52 10^3/uL (1.2-3.4); Absolute Monocyte Count 0.43 10^3/uL (0.1-0.8); Basophils % 0.2 %; Eosinophils % 3.1 %; HCT 32.4 % (40.0-50.0); HGB 11.1 g/dL (13.5-17.5); Immature Grans % 0.4 %; Lymphocytes % 33.6 %; MCH 32.1 pg (27.0-33.0); MCHC 34.3 % (32.0-36.0); MCV 94 fL (80-95); MPV 9.3 fL (8.0-11.0); Monocytes % 9.5 %; Neutrophils % 53.2 %; Platelet Count 108 10^3/uL (130-400); RBC 3.46 10^6/uL (4.36-5.78); RDW 12.4 % (11.8-14.1); RDW-SD 42.3 fL; WBC 4.52 10^3/uL (4.4-10.8)
[2024-09-04 20:39] LABS: ALT 21 U/L (16-63); AST 13 U/L (15-37); Albumin 3.3 g/dL (3.4-5.0); Alkaline Phosphatase 58 U/L (46-116); Anion Gap 8.5 mmol/L (3-11); BUN 20 mg/dL (7-18); Bilirubin, Total 0.26 mg/dL (0.2-1.0); CO2 29.5 mmol/L (21.0-32.0); CREATININE 1.1 mg/dL (0.70-1.30); Chloride 102 mmol/L (98-107); Estimated GFR 77.33 (mL/min/1.73m2); Glucose 118 mg/dL (74-106); Magnesium 1.8 mg/dL (1.8-2.4); Potassium 4.6 mmol/L (3.5-5.1); Sodium 140 mmol/L (136-145); Total Protein 7.7 g/dL (6.4-8.2); Troponin I 4 ng/L (<or=76)
--- NOTE | 2024-09-04 20:51 | W.ED.GENAD ---
Discharge Plan Disposition Patient Disposition: Home Condition: Good Discharge Details Clinical Impression: Chest pain Primary Care Provider: Brandon Foster ED Provider: Ignacia Lopez Home Meds and New Rx's Prescriptions: Continued gabapentin 300 mg capsule 300 mg PO QID bupropion HCl 75 mg tablet 75 mg PO DAILY Rx Instructions: administer 6 hours apart sumatriptan succinate 100 mg tablet See Rx Instructions PO .COMPLEX Qty: 9 5RF Rx Instructions: take 1 tab at onset of headache; if no relief, may repeat 1 tab after at least 2 hrs; max = 2 tabs/24 hrs PO Nurtec ODT 75 mg tablet,disintegrating 75 mg PO ONCE PRN (Reason: migraine headache) Qty: 8 5RF Rx Instructions: as a single dose; no more than 1 tab per day Emgality Pen 120 mg/mL pen injector 120 mg subcut QMONTH Qty: 1 11RF Claritin Liqui-Gel 10 MG capsule 1 cap PO DAILY Qty: 90 multivitamin Tablet 1 tab PO DAILY metformin 500 mg tablet 1 tab PO BID clonazepam 0.5 mg tablet See Rx Instructions .ROUTE .COMPLEX Rx Instructions: 1 tab in AM, 1 tab at Noon and 2 tab QHS simvastatin 80 mg tablet 80 mg PO DAILY Patient Comments: Take 1 tablet by mouth once a day ondansetron HCl 4 mg tablet 4 mg PO Q8H PRN Patient Comments: Take 1 tablet by mouth every eight hours as needed as directed benztropine 0.5 MG tablet 0.5 mg PO BID aspirin,buffd-calcium carb-mag 325 MG tablet 325 mg PO DAILY lactulose 10 gram/15 mL solution 20 g PO DIRECTED PRN Patient Comments: TAKE ONE TO TWO TABLESPOONS BY MOUTH NEEDED WHEN 3 DAYS PASS WITHOUT BOWEL MOVEMENT albuterol sulfate 90 mcg/actuation aerosol powdr breath activated 2 inh IH Q6H PRN (Reason: shortness of breath or wheezing) Qty: 1 0RF fluoxetine 40 mg capsule 80 mg PO DAILY atenolol 25 mg tablet 75 mg PO DAILY Patient Comments: Take 3 tablet by mouth once a day Invega Sustenna 117 mg/0.75 mL syringe 117 mg IM Q30D divalproex [Depakote ER] 500 mg tablet extended release 24 hr 1,000 mg PO BID omeprazole 40 mg capsule,delayed release(DR/EC) 40 mg PO DAILY Patient Comments: TAKE 1 CAPSULE BY MOUTH DAILY FOR HEARTBURN Discharge Instructions Additional Instructions: Call your primary care provider first thing in the morning to schedule follow-up appointment to discuss today's visit. Your workup today was very reassuring. Your troponins were negative. All of your other lab work was stable. Your chest pain today was likely due to a panic attack. Please continue taking your clonazepam and other medications as prescribed Return to emergency care if you develop new chest pains, difficulty breathing, episodes of feeling like you are going to pass out, or if you are very worried and need to be rechecked again immediately Referrals: Brandon Foster [Primary Care Provider] - [facility] General Date/Time Provider Initiated Documentation: 09/04/24 19:54. [facility] Narrative: Avery is a 59-year-old male with history of HLD, T2DM, obesity, schizoaffective disorder, hypothyroidism, tobacco use, migraines, and depression who presents to the emergency department today for evaluation of chest pain. He reports pain started around 1815 today, lasted up proximately 2 hours. He thinks that this may be related to a panic attack, says that this feels similar to previous episodes. He reports this as a fullness in the left side of his chest accompanied by shortness of breath. It has since resolved. It is not accompanied by radiation of pain, diaphoresis, nausea/vomiting, or lightheadedness. He denies recent illness such as fever/chills, sore throat, congestion, cough, nausea/vomiting, abdominal pain, change in bowel or bladder function. He does have a PCP he can follow-up with. Physical exam reassuring. Avery is alert and oriented, in no acute distress. Easy work of breathing, lung sounds clear bilaterally. Normal heart sounds. Abdomen is soft, nondistended, nontender to palpation. DDx includes was not limited to: ACS, cardiac arrhythmia, panic attack, GERD, electrolyte imbalance. As symptoms have fully resolved, low suspicion for intrathoracic pathology such as pneumothorax or pneumonia. No red flags concerning for PE. I independently interpreted the following tests: CBC reassuring, anemia improved from previous, thrombocytopenia noted per baseline. CMP reassuring. Troponins negative x 2. Overall cardiac workup today reassuring. Likely related to anxiety/panic attack, now resolved. Reviewed discharge instructions with patient, including importance of follow-up with PCP and red flags indicating need for return to emergency care. Related Data Home Medications ?Medication ?Instructions ?Recorded ?Confirmed loratadine 10 mg capsule (Claritin 1 cap PO DAILY #90 tabs 12/16/14 08/11/24 Liqui-Gel) aspirin,buffered (calcium 325 mg PO DAILY 11/18/16 08/11/24 carbonate-magnesium) 325 mg tablet benztropine 0.5 mg tablet 0.5 mg PO BID 11/18/16 08/11/24 lactulose 10 gram/15 mL oral 20 g PO DIRECTED PRN 10/03/20 08/11/24 solution albuterol sulfate 90 mcg/actuation 2 inh inhalation Q6H PRN shortness 12/15/20 08/11/24 breath activated powder inhaler of breath or wheezing #1 ea multivitamin 1 tab PO DAILY 01/26/21 08/11/24 metformin 500 mg tablet 1 tab PO BID 03/18/22 08/11/24 clonazepam 0.5 mg tablet See Rx Instructions .Route .COMPLEX 03/04/23 08/11/24 fluoxetine 40 mg capsule 80 mg PO DAILY 03/08/23 08/11/24 gabapentin 300 mg capsule 300 mg PO QID 03/27/23 08/11/24 atenolol 25 mg tablet 75 mg PO DAILY 01/31/24 08/11/24 divalproex 500 mg tablet,extended 1,000 mg PO BID 01/31/24 08/11/24 release 24 hr (Depakote ER) omeprazole 40 mg capsule,delayed 40 mg PO DAILY 01/31/24 08/11/24 release paliperidone palmitate 117 mg/0.75 117 mg IM Q30D 01/31/24 08/11/24 mL intramuscular syringe (Invega Sustenna) simvastatin 80 mg tablet 80 mg PO DAILY 03/08/24 08/11/24 ondansetron HCl 4 mg tablet 4 mg PO Q8H PRN 07/22/24 08/11/24 bupropion HCl 75 mg tablet 75 mg PO DAILY 08/04/24 08/11/24 galcanezumab-gnlm 120 mg/mL 120 mg subcut QMONTH #1 mL 08/04/24 08/11/24 subcutaneous pen injector (Emgality Pen) rimegepant 75 mg disintegrating 75 mg PO ONCE PRN migraine 08/04/24 08/11/24 tablet (Nurtec ODT) headache #8 tabs sumatriptan succinate 100 mg tablet See Rx Instructions PO .COMPLEX #9 08/04/24 08/11/24 tabs Previous Rx's ?Medication ?Instructions ?Recorded albuterol sulfate 90 mcg/actuation 2 inh inhalation Q6H PRN shortness 12/15/20 breath activated powder inhaler of breath or wheezing #1 ea galcanezumab-gnlm 120 mg/mL 120 mg subcut QMONTH #1 mL 08/04/24 subcutaneous pen injector (Emgality Pen) rimegepant 75 mg disintegrating 75 mg PO ONCE PRN migraine 08/04/24 tablet (Nurtec ODT) headache #8 tabs sumatriptan succinate 100 mg tablet See Rx Instructions PO .COMPLEX #9 08/04/24 tabs Allergies Allergy/AdvReac Type Severity Reaction Status Date / Time buspirone Allergy Other (See Verified 08/07/24 09:21 Comment) paliperidone Allergy Other (See Verified 08/07/24 09:21 Comment) paroxetine HCl (From Paxil) Allergy Other (See Verified 08/07/24 09:21 Comment) sertraline Allergy Other (See Verified 08/07/24 09:21 Comment) ziprasidone (From Geodon) Allergy Other (See Verified 08/07/24 09:21 Comment) aripiprazole (From Abilify) AdvReac Intermediate INVOLUNTARY Verified 08/07/24 09:21 MUSCLE MOVEMENTS mirtazapine AdvReac Intermediate INVOLUNTARY Verified 08/07/24 09:21 MUSCLE MOVEMENTS risperidone AdvReac Intermediate INVOLUNTARY Verified 08/07/24 09:21 MUSCLE MOVEMENTS enviornmental Allergy Mild Wheezing Uncoded 08/07/24 09:21 General Stated Complaint: Chest Pain CARLOS: 4 Review of Systems Narrative: see HPI Exam Const General: cooperative, healthy appearing, comfortable, no acute distress and well developed Nutritional Appearance: overweight Orientation: alert and oriented x3 Chest Chest: normal inspection of the chest and no tenderness Resp Effort & Inspection: normal respiratory effort and able to speak in complete sentences Auscultation: clear to auscultation bilaterally Cardio Rate: regular rate Rhythm: regular rhythm GI Inspection: normal to inspection and non-distended Palpation: soft, not firm, not rigid and nontender Course Vital Signs Vital signs: Vital Signs Temperature 36.6 C 09/04/24 19:46 Pulse 97 H 09/04/24 19:46 Blood Pressure 144/91 H 09/04/24 19:46 Pulse Oximetry 97 09/04/24 19:46 Temperature 36.6 C 09/04/24 19:46 Temperature Source Oral 09/04/24 19:46 Pulse 97 H 09/04/24 19:46 Respiratory Rate 18 09/04/24 19:47 Respiratory Effort Normal 09/04/24 19:47 Respiratory Depth Normal 09/04/24 19:47 Respiratory Pattern Normal 09/04/24 19:47 Blood Pressure 144/91 H 09/04/24 19:46 Pulse Oximetry 97 09/04/24 19:46 Oxygen Delivery Method Room Air 09/04/24 19:46 Oxygen Flow Rate 0 09/04/24 19:46 Lab/Test Results Lab/Test Results: Laboratory Tests Range/Units 09/04/24 20:03 WBC (4.4-10.8) 10^3/uL 4.52 RBC (4.36-5.78) 10^6/uL 3.46 L Hgb (13.5-17.5) g/dL 11.1 L Hct (40.0-50.0) % 32.4 L MCV (80-95) fL 94 MCH (27.0-33.0) pg 32.1 MCHC (32.0-36.0) % 34.3 RDW (11.8-14.1) % 12.4 Plt Count (130-400) 10^3/uL 108 L MPV (8.0-11.0) fL 9.3 Immature Gran % % 0.4 Neutrophils % % 53.2 Lymphocytes % % 33.6 Monocytes % % 9.5 Eosinophils % % 3.1 Basophils % % 0.2 Nucleated RBC % (0.0-0.3) % 0.0 Absolute Neutrophils (1.2-6.7) 10^3/uL 2.40 Absolute Lymphocytes (1.2-3.4) 10^3/uL 1.52 Absolute Monocytes (0.1-0.8) 10^3/uL 0.43 Absolute Eosinophils (0.0-0.7) 10^3/uL 0.14 Absolute Basophils (0.0-0.2) 10^3/uL 0.01 Sodium (136-145) mmol/L 140 Potassium (3.5-5.1) mmol/L 4.6 Chloride (98-107) mmol/L 102 Carbon Dioxide (21.0-32.0) mmol/L 29.5 Anion Gap (3-11) mmol/L 8.5 BUN (7-18) mg/dL 20 H Creatinine (0.70-1.30) mg/dL 1.1 Est GFR (CKD-EPI 2020) (mL/min/1.73m2) 77.33 Glucose (74-106) mg/dL 118 H Calcium (8.5-10.1) mg/dL 9.0 Magnesium (1.8-2.4) mg/dL 1.8 Total Bilirubin (0.2-1.0) mg/dL 0.26 AST (15-37) U/L 13 L ALT (16-63) U/L 21 Alkaline Phosphatase (46-116) U/L 58 Troponin I (<or=76) ng/L 4 Total Protein (6.4-8.2) g/dL 7.7 Albumin (3.4-5.0) g/dL 3.3 L Medical Decision Making Quality:SDOH Health Related Social Needs: Health related social needs food insecurity(Z59.41) PFSH All Active Problems (Updated 09/04/24 @ 21:11 by Ignacia Brink) Headache (Acute) Acid reflux (Chronic) Hypomagnesemia (Acute) Chest pain (Acute) Jaw pain (Acute) Knee pain (Acute) Dental caries (Acute) Nicotine dependence (Acute) Dyspnea on exertion (Acute) Shortness of breath (Acute) Hypercholesterolemia (Chronic 09/07/14) pt insists on lipitor 80 mg due to family hx Depression (Acute 10/02/14) Left-sided chest wall pain (Acute) Chest pain (Acute) Chronic headache (Acute) Migraine headache without aura (Acute) Migraine (Chronic) Poor dentition (Acute) Tobacco use disorder (Chronic) started 2013 1.5 ppd, pipe 1-7/week, QUIT LATE OCT 2021 Allergic rhinitis (Chronic) lortadine Hiatal hernia (Chronic) protonix not effective, nexium works better 02/12/18 Anemia (Chronic) Broken teeth (Chronic) Drug-seeking behavior (Chronic ~09/20/21) Requests Ritalin from providers Medication overuse headache (Acute) Medical History Obesity BMI 52 Hypertension pt requests brand name Tenormin vs atenolol 04/02/18 GERD (gastroesophageal reflux disease) (09/07/14) Diabetes mellitus type 2 in obese (09/09/14) Hypothyroidism (acquired) (09/07/14) Schizoaffective disorder (09/07/14) Rebekah Mariscal [facility] 09/2014- [facility] inpatient Trigeminal neuralgia Anxiety Mitral valve prolapse Hyperlipidemia Peripheral neuropathy Surgical History No significant past surgical history Family History Father Heart disease [place] Social History Smoking/Tobacco Use Status: Former Tobacco Use Smoking risk assessment performed?: Yes Alcohol Intake: never Drug use: Never Substance use type: does not use Adopted: No Caregiver/Support person: No Foster care: No Household members: none Housing: apartment Number of Children: 2 number of grandchildren: 1 Communication Needs: Corrective Lenses Education Level: college Do you need help understanding health information?: Always current occupation: Unemployed/Leave of absence Sexually active: No Do you think of yourself as: Decline to provide Current gender identity: male What type of physical activity do you participate in: other Details: weight lifting Frequency: 3-4 times per week Magalie/Congregational: Baptism Seatbelt use: always 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
[2024-09-04 21:20] LABS: Troponin I 4 ng/L (<or=76)
== END 2024-09-04 21:36 | disposition home or self-care (01) ==
PROVIDERS: Emergency Medicine; Emergency Provider Nurse Practitioner Family; PCP Family Medicine
DX: R07.9 Chest pain, unspecified (principal); Z86.59 Personal history of other mental and behavioral disorders; Z86.39 Personal history of other endocrine, nutritional and metabolic disease; I10 Essential (primary) hypertension; Z87.891 Personal history of nicotine dependence
CPT/HCPCS: 80053; 93005; 99284; 83735; 84484; 85025; 93010; 99283

== ENCOUNTER 2024-09-15 15:40 | Emergency (ER) | payer MEDICAID, SELFPAY ==
[2024-09-15 16:32] VITALS: BP 131/84; PULSE 78; RESP 20; TEMP 37; O2SAT 94
--- NOTE | 2024-09-15 18:30 | ED.GENADUL_ITS ---
Discharge Plan Disposition Patient Disposition: Home Condition: Good Discharge Details Clinical Impression: Headache Primary Care Provider: Brandon Foster ED Provider: Sparkle Slater Home Meds and New Rx's Prescriptions: Continued gabapentin 300 mg capsule 300 mg PO QID bupropion HCl 75 mg tablet 75 mg PO DAILY Rx Instructions: administer 6 hours apart sumatriptan succinate 100 mg tablet See Rx Instructions PO .COMPLEX Qty: 9 5RF Rx Instructions: take 1 tab at onset of headache; if no relief, may repeat 1 tab after at least 2 hrs; max = 2 tabs/24 hrs PO Nurtec ODT 75 mg tablet,disintegrating 75 mg PO ONCE PRN (Reason: migraine headache) Qty: 8 5RF Rx Instructions: as a single dose; no more than 1 tab per day Emgality Pen 120 mg/mL pen injector 120 mg subcut QMONTH Qty: 1 11RF Claritin Liqui-Gel 10 MG capsule 1 cap PO DAILY Qty: 90 multivitamin Tablet 1 tab PO DAILY metformin 500 mg tablet 1 tab PO BID clonazepam 0.5 mg tablet See Rx Instructions .ROUTE .COMPLEX Rx Instructions: 1 tab in AM, 1 tab at Noon and 2 tab QHS simvastatin 80 mg tablet 80 mg PO DAILY Patient Comments: Take 1 tablet by mouth once a day ondansetron HCl 4 mg tablet 4 mg PO Q8H PRN Patient Comments: Take 1 tablet by mouth every eight hours as needed as directed benztropine 0.5 MG tablet 0.5 mg PO BID aspirin,buffd-calcium carb-mag 325 MG tablet 325 mg PO DAILY lactulose 10 gram/15 mL solution 20 g PO DIRECTED PRN Patient Comments: TAKE ONE TO TWO TABLESPOONS BY MOUTH NEEDED WHEN 3 DAYS PASS WITHOUT BOWEL MOVEMENT albuterol sulfate 90 mcg/actuation aerosol powdr breath activated 2 inh IH Q6H PRN (Reason: shortness of breath or wheezing) Qty: 1 0RF fluoxetine 40 mg capsule 80 mg PO DAILY atenolol 25 mg tablet 75 mg PO DAILY Patient Comments: Take 3 tablet by mouth once a day Invega Sustenna 117 mg/0.75 mL syringe 117 mg IM Q30D divalproex [Depakote ER] 500 mg tablet extended release 24 hr 1,000 mg PO BID omeprazole 40 mg capsule,delayed release(DR/EC) 40 mg PO DAILY Patient Comments: TAKE 1 CAPSULE BY MOUTH DAILY FOR HEARTBURN Discharge Instructions Instructions: Headache, Adult ED Additional Instructions: Continue taking all your home medications. You can use your home migraine medications as prescribed. Call your primary care doctor today to schedule an appointment to followup on your visit here. Return to the emergency department for new or worsening symptoms including fever, new/different/worse headache, numbness, weakness, or if you have any other concerns. Referrals: Brandon Foster [Primary Care Provider] - [facility] General Mode of arrival: ambulatory . Date/Time Provider Initiated Documentation: 09/15/24 16:38 . Limitations to Documentation: no limitations . Information obtained by: patient . HPI Narrative: 59yo M with hx HTN, DM, anxiety, migraines, presenting for anxiety and headache. Reports symptoms started around 3pm this afternoon with anxiety, after a few hours began to have a left sided headache felt behind his right eye. Anxiety has improved but headache persists. Headache is dull, moderate, nonradiating, and typical of his migraines. Not maximal at onset. No vision changes, vertigo, numbness, tingling, or weakness. No pain with movement of eye. No recent head injuries. Took 3 aspirin at home, no other medications. Did not try his home klonopin or abortive headache medications. Otherwise in his usual state of health with no fevers, chills, rash, nausea, vomiting, or other concerns. Related Data Home Medications ?Medication ?Instructions ?Recorded ?Confirmed loratadine 10 mg capsule (Claritin 1 cap PO DAILY #90 tabs 12/16/14 09/15/24 Liqui-Gel) aspirin,buffered (calcium 325 mg PO DAILY 11/18/16 09/15/24 carbonate-magnesium) 325 mg tablet benztropine 0.5 mg tablet 0.5 mg PO BID 11/18/16 09/15/24 lactulose 10 gram/15 mL oral 20 g PO DIRECTED PRN 10/03/20 09/15/24 solution albuterol sulfate 90 mcg/actuation 2 inh inhalation Q6H PRN shortness 12/15/20 09/15/24 breath activated powder inhaler of breath or wheezing #1 ea multivitamin 1 tab PO DAILY 01/26/21 09/15/24 metformin 500 mg tablet 1 tab PO BID 03/18/22 09/15/24 clonazepam 0.5 mg tablet See Rx Instructions .Route .COMPLEX 04/30/23 11/11/24 fluoxetine 40 mg capsule 80 mg PO DAILY 03/08/23 09/15/24 gabapentin 300 mg capsule 300 mg PO QID 03/27/23 09/15/24 atenolol 25 mg tablet 75 mg PO DAILY 01/31/24 09/15/24 divalproex 500 mg tablet,extended 1,000 mg PO BID 01/31/24 09/15/24 release 24 hr (Depakote ER) omeprazole 40 mg capsule,delayed 40 mg PO DAILY 01/31/24 09/15/24 release paliperidone palmitate 117 mg/0.75 117 mg IM Q30D 01/31/24 09/15/24 mL intramuscular syringe (Invega Sustenna) simvastatin 80 mg tablet 80 mg PO DAILY 03/08/24 09/15/24 ondansetron HCl 4 mg tablet 4 mg PO Q8H PRN 07/22/24 09/15/24 bupropion HCl 75 mg tablet 75 mg PO DAILY 08/04/24 09/15/24 galcanezumab-gnlm 120 mg/mL 120 mg subcut QMONTH #1 mL 08/04/24 09/15/24 subcutaneous pen injector (Emgality Pen) rimegepant 75 mg disintegrating 75 mg PO ONCE PRN migraine 08/04/24 09/15/24 tablet (Nurtec ODT) headache #8 tabs sumatriptan succinate 100 mg tablet See Rx Instructions PO .COMPLEX #9 08/04/24 09/15/24 tabs Previous Rx's ?Medication ?Instructions ?Recorded albuterol sulfate 90 mcg/actuation 2 inh inhalation Q6H PRN shortness 12/15/20 breath activated powder inhaler of breath or wheezing #1 ea galcanezumab-gnlm 120 mg/mL 120 mg subcut QMONTH #1 mL 08/04/24 subcutaneous pen injector (Emgality Pen) rimegepant 75 mg disintegrating 75 mg PO ONCE PRN migraine 08/04/24 tablet (Nurtec ODT) headache #8 tabs sumatriptan succinate 100 mg tablet See Rx Instructions PO .COMPLEX #9 08/04/24 tabs Allergies Allergy/AdvReac Type Severity Reaction Status Date / Time buspirone Allergy Other (See Verified 09/15/24 16:31 Comment) paliperidone Allergy Other (See Verified 09/15/24 16:31 Comment) paroxetine HCl (From Paxil) Allergy Other (See Verified 09/15/24 16:31 Comment) sertraline Allergy Other (See Verified 09/15/24 16:31 Comment) ziprasidone (From Geodon) Allergy Other (See Verified 09/15/24 16:31 Comment) aripiprazole (From Abilify) AdvReac Intermediate INVOLUNTARY Verified 09/15/24 16:31 MUSCLE MOVEMENTS mirtazapine AdvReac Intermediate INVOLUNTARY Verified 09/15/24 16:31 MUSCLE MOVEMENTS risperidone AdvReac Intermediate INVOLUNTARY Verified 09/15/24 16:31 MUSCLE MOVEMENTS enviornmental Allergy Mild Wheezing Uncoded 09/15/24 16:31 General Stated Complaint: Headache CARLOS: 4 Review of Systems Narrative: see HPI Exam Narrative Exam Narrative: General: Alert, well appearing, well nourished, in no acute distress. Head: Normocephalic, atraumatic. No temporal tenderness. Neck: Trachea midline, ?Neck supple. ENT: ?MMM.? No oropharygeal lesions or exudate. Cardiac: ?RRR, no murmurs appreciated Resp: No respiratory distress. CTAB. Extremities: ?No deformities.? No peripheral edema. Neuro: ? GCS 15.? PERRL.? EOMI.? Fluent speech, no dysarthria. Motor- 5/5 strength symmetric bilateral upper and lower extremities Sensation- ?Intact to light touch and symmetric multiple dermatomes including upper and lower extremities Gait/station: ?Normal stance.? No truncal ataxia. Steady gait with equal normal steps CRANIAL NERVES: II: Pupils equal and reactive, III, IV, : EOM intact, no gaze preference or deviation, no nystagmus. V: normal sensation in V1, V2, and V3 segments bilaterally VII: no asymmetry, no nasolabial fold flattening VIII: normal hearing to speech IX, X: normal palatal elevation, no uvular deviation XI: 5/5 head turn and 5/5 shoulder shrug bilaterally XII: midline tongue protrusion Course Vital Signs Vital signs: Vital Signs Temperature 37.0 C 09/15/24 16:32 Pulse 78 09/15/24 16:32 Respiratory Rate 20 09/15/24 16:32 Blood Pressure 131/84 09/15/24 16:32 Pulse Oximetry 94 09/15/24 16:32 Temperature 37.0 C 09/15/24 16:32 Pulse 78 09/15/24 16:32 Respiratory Rate 20 09/15/24 16:32 Respiratory Effort Normal 09/15/24 18:19 Respiratory Depth Normal 09/15/24 18:19 Respiratory Pattern Normal 09/15/24 18:19 Blood Pressure 131/84 09/15/24 16:32 Pulse Oximetry 94 09/15/24 16:32 Oxygen Delivery Method Room Air 09/15/24 16:32 Oxygen Flow Rate 0 09/15/24 16:32 Pain Level 3 09/15/24 18:19 Medical Decision Making 59yo M with hx HTN, DM, anxiety, migraines, presenting for anxiety and headache. Headache typical of his migraines. Vital signs reassuring on arrival. No temporal tenderness on exam. Normal neurologic exam. History and exam not concerning for SAH, intracranial mass, giant cell arteritis, CVA, meningitis, etc; would not get labs or CT imaging. Will treat with tylenol, toradol, compazine, benadryl, and ativan. On reassessment patient reports his symptoms have entirely resolved, requests discharge home which is reasonable. Discharged home; discharge instructions and return precautions were reviewed with patient who verbalized understanding. All questions were answered and he is in full agreement with the plan. Quality:SDOH Health Related Social Needs: Health related social needs food insecurity(Z59.41) PFSH All Active Problems (Updated 09/15/24 @ 19:28 by Sparkle Slater MD) Headache (Acute) Headache (Acute) Knee pain (Acute) Dental caries (Acute) Nicotine dependence (Acute) Dyspnea on exertion (Acute) Shortness of breath (Acute) Hypercholesterolemia (Chronic 09/07/14) pt insists on lipitor 80 mg due to family hx Depression (Acute 10/02/14) Left-sided chest wall pain (Acute) Chest pain (Acute) Chronic headache (Acute) Migraine headache without aura (Acute) Migraine (Chronic) Poor dentition (Acute) Tobacco use disorder (Chronic) started 2013 1.5 ppd, pipe 1-7/week, QUIT LATE OCT 2021 Allergic rhinitis (Chronic) lortadine Hiatal hernia (Chronic) protonix not effective, nexium works better 02/12/18 Anemia (Chronic) Broken teeth (Chronic) Drug-seeking behavior (Chronic ~09/20/21) Requests Ritalin from providers Medication overuse headache (Acute) Medical History Obesity BMI 52 Hypertension pt requests brand name Tenormin vs atenolol 04/02/18 GERD (gastroesophageal reflux disease) (09/07/14) Diabetes mellitus type 2 in obese (09/09/14) Hypothyroidism (acquired) (09/07/14) Schizoaffective disorder (09/07/14) Rebekah Marisacl [facility] 09/2014- [facility] inpatient Trigeminal neuralgia Anxiety Mitral valve prolapse Hyperlipidemia Peripheral neuropathy Surgical History No significant past surgical history Family History Father Heart disease [place] Social History Smoking/Tobacco Use Status: Former Tobacco Use Smoking risk assessment performed?: Yes Alcohol Intake: never Drug use: Never Substance use type: does not use Adopted: No Caregiver/Support person: No Foster care: No Household members: none Housing: apartment Number of Children: 2 number of grandchildren: 1 Communication Needs: Corrective Lenses Education Level: college Do you need help understanding health information?: Always current occupation: Unemployed/Leave of absence Sexually active: No Do you think of yourself as: Decline to provide Current gender identity: male What type of physical activity do you participate in: other Details: weight lifting Frequency: 3-4 times per week Magalie/Caodaism: Orthodoxy Seatbelt use: always Drive intox or ride w/intox 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
[2024-09-15] MEDS: diphenhydrAMINE 25 MG CAP PO (18:40)
[2024-09-15] MEDS: Acetaminophen 500 MG TAB 1000 MG PO (18:40)
[2024-09-15] MEDS: Ketorolac 15 MG/ML VIAL IM (18:41)
[2024-09-15] MEDS: Prochlorperazine 5 MG TAB PO (18:41)
[2024-09-15] MEDS: LORazepam 1 MG TAB PO (18:41)
== END 2024-09-15 19:33 | disposition home or self-care (01) ==
PROVIDERS: Emergency Provider Student in an Organized Health Care Education/Training Program; PCP Family Medicine
DX: R51.9 Headache, unspecified (principal); R41.9 Unspecified symptoms and signs involving cognitive functions and awareness; I10 Essential (primary) hypertension; E78.5 Hyperlipidemia, unspecified; E11.9 Type 2 diabetes mellitus without complications; Z79.84 Long term (current) use of oral hypoglycemic drugs; Z87.891 Personal history of nicotine dependence
CPT/HCPCS: 96372; 99284; 99283; J1885

== ENCOUNTER 2024-09-26 19:06 | Emergency (ER) | payer MEDICAID, SELFPAY ==
--- NOTE | 2024-09-26 18:45 | RT.EKG_ITS ---
APPROVED REPORT Exam: Resting ECG Reason for Exam: Chest pain and SOB Patient Location: E HR:72 bpm ECG Measurements Heart Rate 72 AXIS MN 172 P 35 QRSd 102 QRS 21 QT 420 T 80 QTc 462 Conclusion Sinus rhythm 72 normal axis no stemi
[2024-09-26 18:58] VITALS: BP 158/62; PULSE 74; RESP 18; TEMP 35.6
--- NOTE | 2024-09-26 19:00 | DI.RAD_ITS ---
Exam(s) XR PORTABLE CHEST AP EXAM: XR PORTABLE CHEST AP CLINICAL HISTORY: Chest pain. TECHNIQUE: 2D digital imaging was performed. COMPARISON: CR XR PORTABLE CHEST AP from 08/07/2024 FINDINGS: Single AP portable view. Heart size is upper normal. The mediastinum is not widened. Right lung is clear. Slightly increased markings noted in the left lower lobe retrocardiac region. No pleural effusions. IMPRESSION: Slightly increased markings in left lower lobe retrocardiac region. Recommend follow-up nonportable PA and lateral views when clinically possible. DATA REPOSITORY: RADIATION DOSE DELIVERED:
[2024-09-26 19:02] VITALS: RESP 18
[2024-09-26] MEDS: Aspirin 81 MG CHEW 324 MG CH (19:16)
--- NOTE | 2024-09-26 19:19 | W.ED.GENAD ---
Discharge Plan Disposition Patient Disposition: Home Condition: Stable Discharge Details Clinical Impression: Chest pain Primary Care Provider: Brandon Foster ED Provider: Elvin Espana Home Meds and New Rx's Prescriptions: No Action gabapentin 300 mg capsule 300 mg PO QID bupropion HCl 75 mg tablet 75 mg PO DAILY Rx Instructions: administer 6 hours apart sumatriptan succinate 100 mg tablet See Rx Instructions PO .COMPLEX Qty: 9 5RF Rx Instructions: take 1 tab at onset of headache; if no relief, may repeat 1 tab after at least 2 hrs; max = 2 tabs/24 hrs PO Nurtec ODT 75 mg tablet,disintegrating 75 mg PO ONCE PRN (Reason: migraine headache) Qty: 8 5RF Rx Instructions: as a single dose; no more than 1 tab per day Emgality Pen 120 mg/mL pen injector 120 mg subcut QMONTH Qty: 1 11RF Claritin Liqui-Gel 10 MG capsule 1 cap PO DAILY Qty: 90 promethazine 25 mg tablet 25 mg PO TID PRN metformin 500 mg tablet 500 mg PO BID fluoxetine 10 mg capsule See Rx Instructions PO .COMPLEX Rx Instructions: 5 mg orally AM; 10 mg afaternoon, 20 mg HS per PCP list 09/24/24 fluoxetine 40 mg capsule 40 mg PO DAILY amoxicillin 500 mg capsule 2,000 mg PO ONCE Patient Comments: per PCP list take 1 hr before dental work 09/24/24 multivitamin Tablet 1 tab PO DAILY clonazepam 0.5 mg tablet See Rx Instructions .ROUTE .COMPLEX Rx Instructions: 1 tab in AM, 1 tab at Noon and 2 tab QHS simvastatin 80 mg tablet 80 mg PO DAILY Patient Comments: Take 1 tablet by mouth once a day ondansetron HCl 4 mg tablet 4 mg PO Q8H PRN Patient Comments: Take 1 tablet by mouth every eight hours as needed as directed benztropine 0.5 MG tablet 0.5 mg PO BID aspirin,buffd-calcium carb-mag 325 MG tablet 325 mg PO DAILY lactulose 10 gram/15 mL solution 20 g PO DIRECTED PRN Patient Comments: TAKE ONE TO TWO TABLESPOONS BY MOUTH NEEDED WHEN 3 DAYS PASS WITHOUT BOWEL MOVEMENT albuterol sulfate 90 mcg/actuation aerosol powdr breath activated 2 inh IH Q6H PRN (Reason: shortness of breath or wheezing) Qty: 1 0RF atenolol 25 mg tablet 75 mg PO DAILY Patient Comments: Take 3 tablet by mouth once a day Invega Sustenna 117 mg/0.75 mL syringe 117 mg IM Q30D divalproex [Depakote ER] 500 mg tablet extended release 24 hr 1,000 mg PO BID omeprazole 40 mg capsule,delayed release(DR/EC) 40 mg PO DAILY Patient Comments: TAKE 1 CAPSULE BY MOUTH DAILY FOR HEARTBURN Discharge Instructions Instructions: Chest Pain (DC) Additional Instructions: Your EKG and blood work does not indicate a cardiac cause of your chest pain. Your chest x-ray looks normal today. Please continue [id number] pain medication as needed and follow-up with your primary care if your symptoms persist. HPI General Date/Time Provider Initiated Documentation: 09/26/24 19:19. Limitations to Documentation: no limitations. Information obtained by: patient and EMS. HPI Narrative: 59-year-old gentleman with past medical history of depression, obesity, schizoaffective disorder, hypertension diabetes presents for evaluation of chest pain. He reports that around 45 minutes ago he woke up from sleep with left-sided chest pain. He reports this feeling of discomfort in his left lung. He reports some mild shortness of breath. He reports that the pain is about 7 out of 10. No exacerbating relieving symptoms. Reports that he took his aspirin dose at noon today. He does not report a cough, recent sick symptoms or recent shortness of breath. He denies any diaphoresis. Denies any nausea or vomiting. Related Data Home Medications ?Medication ?Instructions ?Recorded ?Confirmed loratadine 10 mg capsule (Claritin 1 cap PO DAILY #90 tabs 12/16/14 09/26/24 Liqui-Gel) aspirin,buffered (calcium 325 mg PO DAILY 11/18/16 09/26/24 carbonate-magnesium) 325 mg tablet benztropine 0.5 mg tablet 0.5 mg PO BID 11/18/16 09/26/24 lactulose 10 gram/15 mL oral 20 g PO DIRECTED PRN 10/03/20 09/26/24 solution albuterol sulfate 90 mcg/actuation 2 inh inhalation Q6H PRN shortness 12/15/20 09/26/24 breath activated powder inhaler of breath or wheezing #1 ea multivitamin 1 tab PO DAILY 01/26/21 09/26/24 clonazepam 0.5 mg tablet See Rx Instructions .Route .COMPLEX 03/04/23 09/26/24 gabapentin 300 mg capsule 300 mg PO QID 03/27/23 09/26/24 atenolol 25 mg tablet 75 mg PO DAILY 01/31/24 09/26/24 divalproex 500 mg tablet,extended 1,000 mg PO BID 01/31/24 09/26/24 release 24 hr (Depakote ER) omeprazole 40 mg capsule,delayed 40 mg PO DAILY 01/31/24 09/26/24 release paliperidone palmitate 117 mg/0.75 117 mg IM Q30D 01/31/24 09/26/24 mL intramuscular syringe (Invega Sustenna) simvastatin 80 mg tablet 80 mg PO DAILY 03/08/24 09/26/24 ondansetron HCl 4 mg tablet 4 mg PO Q8H PRN 07/22/24 09/26/24 bupropion HCl 75 mg tablet 75 mg PO DAILY 08/04/24 09/26/24 galcanezumab-gnlm 120 mg/mL 120 mg subcut QMONTH #1 mL 08/04/24 09/26/24 subcutaneous pen injector (Emgality Pen) rimegepant 75 mg disintegrating 75 mg PO ONCE PRN migraine 08/04/24 09/26/24 tablet (Nurtec ODT) headache #8 tabs sumatriptan succinate 100 mg tablet See Rx Instructions PO .COMPLEX #9 08/04/24 09/26/24 tabs amoxicillin 500 mg capsule 2,000 mg PO ONCE 09/24/24 09/26/24 fluoxetine 10 mg capsule See Rx Instructions PO .COMPLEX 09/24/24 09/26/24 fluoxetine 40 mg capsule 40 mg PO DAILY 09/24/24 09/26/24 metformin 500 mg tablet 500 mg PO BID 09/24/24 09/26/24 promethazine 25 mg tablet 25 mg PO TID PRN 09/24/24 09/26/24 Previous Rx's ?Medication ?Instructions ?Recorded albuterol sulfate 90 mcg/actuation 2 inh inhalation Q6H PRN shortness 12/15/20 breath activated powder inhaler of breath or wheezing #1 ea galcanezumab-gnlm 120 mg/mL 120 mg subcut QMONTH #1 mL 08/04/24 subcutaneous pen injector (Emgality Pen) rimegepant 75 mg disintegrating 75 mg PO ONCE PRN migraine 08/04/24 tablet (Nurtec ODT) headache #8 tabs sumatriptan succinate 100 mg tablet See Rx Instructions PO .COMPLEX #9 08/04/24 tabs Allergies Allergy/AdvReac Type Severity Reaction Status Date / Time buspirone Allergy Other (See Verified 09/26/24 19:05 Comment) paliperidone Allergy Other (See Verified 09/26/24 19:05 Comment) paroxetine HCl (From Paxil) Allergy Other (See Verified 09/26/24 19:05 Comment) sertraline Allergy Other (See Verified 09/26/24 19:05 Comment) ziprasidone (From Geodon) Allergy Other (See Verified 09/26/24 19:05 Comment) aripiprazole (From Abilify) AdvReac Intermediate INVOLUNTARY Verified 09/26/24 19:05 MUSCLE MOVEMENTS mirtazapine AdvReac Intermediate INVOLUNTARY Verified 09/26/24 19:05 MUSCLE MOVEMENTS risperidone AdvReac Intermediate INVOLUNTARY Verified 09/26/24 19:05 MUSCLE MOVEMENTS enviornmental Allergy Mild Wheezing Uncoded 09/26/24 19:05 General Stated Complaint: Chest Pain CARLOS: 3 Exam Narrative Exam Narrative: Review of Systems: All systems reviewed & are unremarkable except as noted in HPI and below Obese chronically ill-appearing RRR Unlabored respiratory effort, ctab Nondistended abdomen , soft, non tender Extremities w/oedema flat affect Course Vital Signs Vital signs: Vital Signs Temperature 35.6 C L 09/26/24 18:58 Pulse 74 09/26/24 18:58 Respiratory Rate 18 09/26/24 18:58 Blood Pressure 158/62 H 09/26/24 18:58 Temperature 35.6 C L 09/26/24 18:58 Pulse 74 09/26/24 18:58 Respiratory Rate 18 09/26/24 19:02 Respiratory Effort Normal, Non-Labored 09/26/24 19:02 Respiratory Depth Normal 09/26/24 19:02 Respiratory Pattern Normal 09/26/24 19:02 Blood Pressure 158/62 H 09/26/24 18:58 Blood Pressure Position Supine 09/26/24 18:58 Oxygen Delivery Method Room Air 09/26/24 18:58 Oxygen Flow Rate 0 09/26/24 18:58 Pain Level 7 09/26/24 19:02 Medical Decision Making Emergent evaluation of left-sided chest pain. Patient returns to the emergency department for another evaluation of chest pain as he has been many times previously. His EKG is unchanged from prior. Chest pain has no concerning features for cardiac etiology at this time. He does have other risk factors including obesity hypertension and diabetes. Plan for lab work including serial troponins. EKG was reviewed and independently interpreted: Sinus 72 normal axis, no acute ischemic changes. His chest x-ray was reviewed and independently interpreted: Normal heart size, no pleural effusions or consolidations. Blood work reviewed. No leukocytosis. Anemia at his baseline. There is no electrolyte derangement. Mild hyperglycemia. Is BNP is not elevated. His troponins x 2 are both negative. At this time there is no further indication for additional emergent workup or hospitalization. Patient can be discharged follow-up as needed with PCP. Return precautions advised. Quality:SDOH Health Related Social Needs: Health related social needs food insecurity(Z59.41) PFSH All Active Problems (Updated 09/26/24 @ 20:47 by Elvni Espana MD) Headache (Acute) Headache (Acute) Knee pain (Acute) Dental caries (Acute) Nicotine dependence (Acute) Dyspnea on exertion (Acute) Shortness of breath (Acute) Hypercholesterolemia (Chronic 09/07/14) pt insists on lipitor 80 mg due to family hx Depression (Acute 10/02/14) Left-sided chest wall pain (Acute) Chest pain (Acute) Chronic headache (Acute) Migraine headache without aura (Acute) Migraine (Chronic) Poor dentition (Acute) Tobacco use disorder (Chronic) started 2013 1.5 ppd, pipe 1-7/week, QUIT LATE OCT 2021 Allergic rhinitis (Chronic) lortadine Hiatal hernia (Chronic) protonix not effective, nexium works better 02/12/18 Anemia (Chronic) Broken teeth (Chronic) Drug-seeking behavior (Chronic ~09/20/21) Requests Ritalin from providers Medication overuse headache (Acute) Medical History Obesity BMI 52 Hypertension pt requests brand name Tenormin vs atenolol 04/02/18 GERD (gastroesophageal reflux disease) (09/07/14) Diabetes mellitus type 2 in obese (09/09/14) Hypothyroidism (acquired) (09/07/14) Schizoaffective disorder (09/07/14) Rebekah Mariscal [facility] 09/2014- REPLACED BY [facility] inpatient Trigeminal neuralgia Anxiety Mitral valve prolapse Hyperlipidemia Peripheral neuropathy Surgical History No significant past surgical history Family History Father Heart disease ID Social History Smoking/Tobacco Use Status: Former Tobacco Use Smoking risk assessment performed?: Yes Alcohol Intake: never Drug use: Never Substance use type: does not use Adopted: No Caregiver/Support person: No Foster care: No Household members: none Housing: apartment Number of Children: 2 number of grandchildren: 1 Communication Needs: Corrective Lenses Education Level: college Do you need help understanding health information?: Always current occupation: Unemployed/Leave of absence Sexually active: No Do you think of yourself as: Decline to provide Current gender identity: male What type of physical activity do you participate in: other Details: weight lifting Frequency: 3-4 times per week Magalie/Yarsani: Voodoo Seatbelt use: always Drive intox or ride w/intox flag car 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
[2024-09-26 19:23] LABS: Abs Immature Grans 0.04 10^3/uL (0.0-0.06); Absolute Basophil Count 0.02 10^3/uL (0.0-0.2); Absolute Lymphocyte Count 1.76 10^3/uL (1.2-3.4); Absolute Monocyte Count 0.63 10^3/uL (0.1-0.8); Absolute Neutrophil Count 3.18 10^3/uL (1.2-6.7); Basophils % 0.3 %; Eosinophils % 1.7 %; HCT 31.7 % (40.0-50.0); HGB 10.7 g/dL (13.5-17.5); Immature Grans % 0.7 %; Lymphocytes % 30.7 %; MCH 31.9 pg (27.0-33.0); MCHC 33.8 % (32.0-36.0); MCV 95 fL (80-95); MPV 8.8 fL (8.0-11.0); Neutrophils % 55.6 %; Platelet Count 108 10^3/uL (130-400); RBC 3.35 10^6/uL (4.36-5.78); RDW 13.2 % (11.8-14.1); RDW-SD 45.1 fL; WBC 5.73 10^3/uL (4.4-10.8)
[2024-09-26 19:34] LABS: ALT 23 U/L (16-63); AST 16 U/L (15-37); Albumin 3.3 g/dL (3.4-5.0); Alkaline Phosphatase 66 U/L (46-116); Anion Gap 7.7 mmol/L (3-11); BUN 12 mg/dL (7-18); Bilirubin, Total 0.26 mg/dL (0.2-1.0); CO2 29.3 mmol/L (21.0-32.0); CREATININE 1.1 mg/dL (0.70-1.30); Calcium 8.5 mg/dL (8.5-10.1); Chloride 102 mmol/L (98-107); Estimated GFR 77.33 (mL/min/1.73m2); Glucose 144 mg/dL (74-106); Magnesium 1.8 mg/dL (1.8-2.4); Potassium 4.3 mmol/L (3.5-5.1); Sodium 139 mmol/L (136-145); Total Protein 7.4 g/dL (6.4-8.2)
[2024-09-26 19:40] LABS: NT-proBNP 281 pg/mL (<300); Troponin I 4 ng/L (<or=76)
[2024-09-26] MEDS: Acetaminophen 500 MG TAB 1000 MG PO (19:48)
--- NOTE | 2024-09-26 19:57 | DI.VRAD_ITS ---
PROCEDURE INFORMATION: Exam: XR Chest Exam date and time: 09/26/2024 7:21 PM Age: 59 years old Clinical indication: Chest pain TECHNIQUE: Imaging protocol: Radiologic exam of the chest. Views: 1 view. COMPARISON: CR XR PORTABLE CHEST AP 08/07/2024 9:46 AM FINDINGS: Tubes, catheters and devices: Cardiac leads superimposed over the chest. Lungs: No alveolar infiltrate. Pleural spaces: No pleural fluid collection. No pneumothorax. Heart/Mediastinum: Normal heart size. Bones/joints: Unremarkable for patient age. IMPRESSION: No active pulmonary disease. Dictated and Authenticated by: Matthew Aguillon MD. Ordering:GUERITA Naylor MD
[2024-09-26 20:39] LABS: Troponin I 4 ng/L (<or=76)
[2024-09-26 20:55] VITALS: BP 136/44; PULSE 71; RESP 18; O2SAT 98
== END 2024-09-26 20:55 | disposition home or self-care (01) ==
PROVIDERS: Emergency Provider Emergency Medicine; PCP Family Medicine
DX: R07.9 Chest pain, unspecified (principal); R06.02 Shortness of breath; I10 Essential (primary) hypertension; E11.9 Type 2 diabetes mellitus without complications; Z79.84 Long term (current) use of oral hypoglycemic drugs; Z79.82 Long term (current) use of aspirin; Z87.891 Personal history of nicotine dependence
CPT/HCPCS: 80053; 93005; 99285; 71045; 83735; 83880; 84484; 85025; 93010; 99284

== ENCOUNTER 2024-10-04 15:03 | Emergency (ER) | payer MEDICAID, SELFPAY ==
[2024-10-04 15:04] VITALS: BP 170/84; PULSE 73; RESP 16; TEMP 36.6; O2SAT 99
--- NOTE | 2024-10-04 15:30 | RT.EKG_ITS ---
APPROVED REPORT Exam: Resting ECG Reason for Exam: nausea Patient Location: E HR:70 bpm ECG Measurements Heart Rate 70 AXIS ND 197 P 32 QRSd 93 QRS 12 QT 402 T 100 QTc 436 Conclusion Sinus rhythm...normal P axis, V-rate 60- 99 Narrow complex normal sinus rhythm at a rate of 70. Normal axis. Intervals within normal limits. N o ST segment abnormalities. T wave inversion in aVL. Compared to prior dated earlier this month T w ave inversions more pronounced. No acute injury pattern.
--- NOTE | 2024-10-04 16:01 | ED.GENADUL_ITS ---
Discharge Plan Disposition Patient Disposition: Home Discharge Details Clinical Impression: Nausea Primary Care Provider: Brandon Foster ED Provider: Ignacia Lopez Home Meds and New Rx's Prescriptions: Continued gabapentin 300 mg capsule 300 mg PO QID bupropion HCl 75 mg tablet 75 mg PO DAILY Rx Instructions: administer 6 hours apart sumatriptan succinate 100 mg tablet See Rx Instructions PO .COMPLEX Qty: 9 5RF Rx Instructions: take 1 tab at onset of headache; if no relief, may repeat 1 tab after at least 2 hrs; max = 2 tabs/24 hrs PO Nurtec ODT 75 mg tablet,disintegrating 75 mg PO ONCE PRN (Reason: migraine headache) Qty: 8 5RF Rx Instructions: as a single dose; no more than 1 tab per day Emgality Pen 120 mg/mL pen injector 120 mg subcut QMONTH Qty: 1 11RF Claritin Liqui-Gel 10 MG capsule 1 cap PO DAILY Qty: 90 metformin 500 mg tablet 500 mg PO BID fluoxetine 10 mg capsule See Rx Instructions PO .COMPLEX Rx Instructions: 5 mg orally AM; 10 mg afaternoon, 20 mg HS per PCP list 09/24/24 fluoxetine 40 mg capsule 40 mg PO DAILY multivitamin Tablet 1 tab PO DAILY clonazepam 0.5 mg tablet See Rx Instructions .ROUTE .COMPLEX Rx Instructions: 1 tab in AM, 1 tab at Noon and 2 tab QHS simvastatin 80 mg tablet 80 mg PO DAILY Patient Comments: Take 1 tablet by mouth once a day ondansetron HCl 4 mg tablet 4 mg PO Q8H PRN Patient Comments: Take 1 tablet by mouth every eight hours as needed as directed benztropine 0.5 MG tablet 0.5 mg PO BID aspirin,buffd-calcium carb-mag 325 MG tablet 325 mg PO DAILY lactulose 10 gram/15 mL solution 20 g PO DIRECTED PRN Patient Comments: TAKE ONE TO TWO TABLESPOONS BY MOUTH NEEDED WHEN 3 DAYS PASS WITHOUT BOWEL MOVEMENT albuterol sulfate 90 mcg/actuation aerosol powdr breath activated 2 inh IH Q6H PRN (Reason: shortness of breath or wheezing) Qty: 1 0RF atenolol 25 mg tablet 75 mg PO DAILY Patient Comments: Take 3 tablet by mouth once a day Invega Sustenna 117 mg/0.75 mL syringe 117 mg IM Q30D divalproex [Depakote ER] 500 mg tablet extended release 24 hr 1,000 mg PO BID omeprazole 40 mg capsule,delayed release(DR/EC) 40 mg PO DAILY Patient Comments: TAKE 1 CAPSULE BY MOUTH DAILY FOR HEARTBURN Discharge Instructions Additional Instructions: Your workup today was very reassuring. Please follow-up with your primary care provider for reassessment within the next week or two. I encourage you to use [id number] Pepcid Complete 1 chewable twice a day as needed for nausea. Be sure to eat small, frequent meals, avoiding overfilling your stomach. Avoid spicy/greasy/fried foods, as this can be irritating to your stomach. Return to emergency care if you develop new severe abdominal pain, uncontrollable vomiting, chest pain, difficulty breathing, or if you are very worried and need to be rechecked again immediately Referrals: Brandon Foster [Primary Care Provider] - [facility] General Date/Time Provider Initiated Documentation: 10/04/24 15:08 . [facility] Narrative: Avery is a 59year old male who presents to the emergency department today for evaluation of nausea which began approximately 1 hour prior to arrival. He reports that he ate lunch this afternoon, says it was not within the hour or so before nausea started. He reports some generalized abdominal discomfort across the epigastrium. He says he feels like he is going to throw up. Says he initially had some acid reflux but that has since dissipated. Was feeling fine prior to onset of nausea. Denies associated fever/chills, congestion, sore throat, cough, chest pain, radiation of pain, vomiting, change in bowel or bladder function. Last BM yesterday, was normal. He denies history of abdominal surgeries or chest surgeries in the past.. Past medical history is significant for depression, obesity, schizoaffective disorder, HTN, T2DM treated with metformin, hypothyroidism, HLD. Denies recent medication changes. Ate hamburgers for lunch that he prepared himself. Physical exam reassuring. Avery is alert and oriented, no acute distress. Abdomen is softly distended, diffusely tender to palpation, normoactive bowel sounds. Moist mucous membranes. Easy work of breathing, lung sounds clear bilaterally. Normal heart sounds. D/dx includes but is not limited to: GERD associated with hiatal hernia, constipation, low suspicion for pancreatitis or ACS. HEART score 3, indicating low risk of MACE. I independently interpreted the following tests: EKG shows NSR rate 72, normal intervals. No changes c/w acute ischemia, unchanged t wave invesrion aVL, no change from previous. CBC , CMP, mag, lipase, and troponins reassuring. While in the emergency department,Avery received famotidine and Magic mouthwash. He reports he is feeling better, generalized abdominal discomfort has subsided, no tenderness with palpation. He has been able to eat crackers with peanut butter and diet Coke. Reviewed discharge instructions with patient, including symptomatic management and red flags indicating need for return to emergency care Related Data Home Medications ?Medication ?Instructions ?Recorded ?Confirmed loratadine 10 mg capsule (Claritin 1 cap PO DAILY #90 tabs 12/16/14 10/04/24 Liqui-Gel) aspirin,buffered (calcium 325 mg PO DAILY 11/18/16 10/04/24 carbonate-magnesium) 325 mg tablet benztropine 0.5 mg tablet 0.5 mg PO BID 11/18/16 10/04/24 lactulose 10 gram/15 mL oral 20 g PO DIRECTED PRN 10/03/20 10/04/24 solution albuterol sulfate 90 mcg/actuation 2 inh inhalation Q6H PRN shortness 12/15/20 10/04/24 breath activated powder inhaler of breath or wheezing #1 ea multivitamin 1 tab PO DAILY 01/26/21 10/04/24 clonazepam 0.5 mg tablet See Rx Instructions .Route .COMPLEX 03/04/23 10/04/24 gabapentin 300 mg capsule 300 mg PO QID 03/27/23 10/04/24 atenolol 25 mg tablet 75 mg PO DAILY 01/31/24 10/04/24 divalproex 500 mg tablet,extended 1,000 mg PO BID 01/31/24 10/04/24 release 24 hr (Depakote ER) omeprazole 40 mg capsule,delayed 40 mg PO DAILY 01/31/24 10/04/24 release paliperidone palmitate 117 mg/0.75 117 mg IM Q30D 01/31/24 10/04/24 mL intramuscular syringe (Invega Sustenna) simvastatin 80 mg tablet 80 mg PO DAILY 03/08/24 10/04/24 ondansetron HCl 4 mg tablet 4 mg PO Q8H PRN 07/22/24 10/04/24 bupropion HCl 75 mg tablet 75 mg PO DAILY 08/04/24 10/04/24 galcanezumab-gnlm 120 mg/mL 120 mg subcut QMONTH #1 mL 08/04/24 10/04/24 subcutaneous pen injector (Emgality Pen) rimegepant 75 mg disintegrating 75 mg PO ONCE PRN migraine 08/04/24 10/04/24 tablet (Nurtec ODT) headache #8 tabs sumatriptan succinate 100 mg tablet See Rx Instructions PO .COMPLEX #9 08/04/24 10/04/24 tabs fluoxetine 10 mg capsule See Rx Instructions PO .COMPLEX 09/24/24 10/04/24 fluoxetine 40 mg capsule 40 mg PO DAILY 09/24/24 10/04/24 metformin 500 mg tablet 500 mg PO BID 09/24/24 10/04/24 Previous Rx's ?Medication ?Instructions ?Recorded albuterol sulfate 90 mcg/actuation 2 inh inhalation Q6H PRN shortness 12/15/20 breath activated powder inhaler of breath or wheezing #1 ea galcanezumab-gnlm 120 mg/mL 120 mg subcut QMONTH #1 mL 08/04/24 subcutaneous pen injector (Emgality Pen) rimegepant 75 mg disintegrating 75 mg PO ONCE PRN migraine 08/04/24 tablet (Nurtec ODT) headache #8 tabs sumatriptan succinate 100 mg tablet See Rx Instructions PO .COMPLEX #9 08/04/24 tabs Allergies Allergy/AdvReac Type Severity Reaction Status Date / Time buspirone Allergy Other (See Verified 10/04/24 15:09 Comment) paliperidone Allergy Other (See Verified 10/04/24 15:09 Comment) paroxetine HCl (From Paxil) Allergy Other (See Verified 10/04/24 15:09 Comment) sertraline Allergy Other (See Verified 10/04/24 15:09 Comment) ziprasidone (From Geodon) Allergy Other (See Verified 10/04/24 15:09 Comment) aripiprazole (From Abilify) AdvReac Intermediate INVOLUNTARY Verified 10/04/24 15:09 MUSCLE MOVEMENTS mirtazapine AdvReac Intermediate INVOLUNTARY Verified 10/04/24 15:09 MUSCLE MOVEMENTS risperidone AdvReac Intermediate INVOLUNTARY Verified 10/04/24 15:09 MUSCLE MOVEMENTS enviornmental Allergy Mild Wheezing Uncoded 10/04/24 15:09 General Stated Complaint: Nausea/Vomit/Diar CARLOS: 5 Review of Systems Narrative: See HPI Exam Const General: cooperative, healthy appearing, comfortable, no acute distress and well developed Nutritional Appearance: average body habitus Orientation: alert and oriented x3 Resp Effort & Inspection: normal respiratory effort Auscultation: clear to auscultation bilaterally Cardio Rate: regular rate Rhythm: regular rhythm GI Inspection: normal to inspection, distended (Softly distended), obesity, no visible herniation and no visible pulsation Palpation: soft, not firm, no guarding, not rigid and tender (Diffusely tender to palpation) Auscultation: normal bowel sounds Neuro Speech: speech normal Psych Affect: blunted Course Vital Signs Vital signs: Vital Signs Temperature 36.6 C 10/04/24 15:04 Pulse 73 10/04/24 15:04 Respiratory Rate 16 10/04/24 15:04 Blood Pressure 170/84 H 10/04/24 15:04 Pulse Oximetry 99 10/04/24 15:04 Temperature 36.6 C 10/04/24 15:04 Pulse 73 10/04/24 15:04 Respiratory Rate 16 10/04/24 15:04 Respiratory Effort Normal 10/04/24 15:07 Blood Pressure 170/84 H 10/04/24 15:04 Blood Pressure Position Sitting 10/04/24 15:04 Pulse Oximetry 99 10/04/24 15:04 Pain Level 4 10/04/24 15:04 Medical Decision Making Quality:SDOH Health Related Social Needs: Health related social needs food insecurity(Z59.41) PFSH All Active Problems (Updated 10/04/24 @ 17:43 by Ignacia Brink) Nausea (Acute) Headache (Acute) Knee pain (Acute) Dental caries (Acute) Nicotine dependence (Acute) Dyspnea on exertion (Acute) Shortness of breath (Acute) Hypercholesterolemia (Chronic 09/07/14) pt insists on lipitor 80 mg due to family hx Depression (Acute 10/02/14) Left-sided chest wall pain (Acute) Chest pain (Acute) Chronic headache (Acute) Migraine headache without aura (Acute) Migraine (Chronic) Poor dentition (Acute) Tobacco use disorder (Chronic) started 2013 1.5 ppd, pipe 1-7/week, QUIT LATE OCT 2021 Allergic rhinitis (Chronic) lortadine Hiatal hernia (Chronic) protonix not effective, nexium works better 02/12/18 Anemia (Chronic) Broken teeth (Chronic) Drug-seeking behavior (Chronic ~09/20/21) Requests Ritalin from providers Medication overuse headache (Acute) Medical History Obesity BMI 52 Hypertension pt requests brand name Tenormin vs atenolol 04/02/18 GERD (gastroesophageal reflux disease) (09/07/14) Diabetes mellitus type 2 in obese (09/09/14) Hypothyroidism (acquired) (09/07/14) Schizoaffective disorder (09/07/14) Rebekah Mariscal [facility] 09/2014- [facility] inpatient Trigeminal neuralgia Anxiety Mitral valve prolapse Hyperlipidemia Peripheral neuropathy Surgical History No significant past surgical history Family History Father Heart disease [place] Social History Smoking/Tobacco Use Status: Former Tobacco Use Smoking risk assessment performed?: Yes Alcohol Intake: never Drug use: Never Substance use type: does not use Adopted: No Caregiver/Support person: No Foster care: No Household members: none Housing: apartment Number of Children: 2 number of grandchildren: 1 Communication Needs: Corrective Lenses Education Level: college Do you need help understanding health information?: Always current occupation: Unemployed/Leave of absence Sexually active: No Do you think of yourself as: Decline to provide Current gender identity: male What type of physical activity do you participate in: other Details: weight lifting Frequency: 3-4 times per week Magalie/Tenriism: Lutheran Seatbelt use: always Drive intox or ride w/intox professional 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
[2024-10-04] MEDS: Ondansetron O.D.T. 4 MG TABEF PO (16:23)
[2024-10-04] MEDS: Magic Mouthwash 119 ML BTL 10 ML PO (16:24)
[2024-10-04 16:33] LABS: Abs Immature Grans 0.03 10^3/uL (0.0-0.06); Absolute Basophil Count 0.01 10^3/uL (0.0-0.2); Absolute Eosinophil Count 0.14 10^3/uL (0.0-0.7); Absolute Lymphocyte Count 1.19 10^3/uL (1.2-3.4); Absolute Monocyte Count 0.45 10^3/uL (0.1-0.8); Absolute Neutrophil Count 3.06 10^3/uL (1.2-6.7); Basophils % 0.2 %; Eosinophils % 2.9 %; HCT 32.7 % (40.0-50.0); HGB 10.8 g/dL (13.5-17.5); Immature Grans % 0.6 %; Lymphocytes % 24.4 %; MCH 31.4 pg (27.0-33.0); MCV 95 fL (80-95); MPV 9.1 fL (8.0-11.0); Monocytes % 9.2 %; Neutrophils % 62.7 %; Platelet Count 105 10^3/uL (130-400); RBC 3.44 10^6/uL (4.36-5.78); RDW 12.9 % (11.8-14.1); RDW-SD 44.2 fL; WBC 4.88 10^3/uL (4.4-10.8)
[2024-10-04 16:52] LABS: ALT 22 U/L (16-63); AST 15 U/L (15-37); Albumin 3.3 g/dL (3.4-5.0); Alkaline Phosphatase 65 U/L (46-116); Anion Gap 7.4 mmol/L (3-11); BUN 10 mg/dL (7-18); Bilirubin, Total 0.17 mg/dL (0.2-1.0); CO2 28.6 mmol/L (21.0-32.0); CREATININE 0.9 mg/dL (0.70-1.30); Calcium 8.7 mg/dL (8.5-10.1); Chloride 100 mmol/L (98-107); Estimated GFR 98.38 (mL/min/1.73m2); Glucose 176 mg/dL (74-106); Lipase 11 U/L (<78); Magnesium 1.8 mg/dL (1.8-2.4); Potassium 4.9 mmol/L (3.5-5.1); Sodium 136 mmol/L (136-145); Total Protein 7.3 g/dL (6.4-8.2); Troponin I 4 ng/L (<or=76)
[2024-10-04 18:10] VITALS: BP 162/77; PULSE 71; RESP 16; O2SAT 98
[2024-10-04 18:32] LABS: Troponin I 5 ng/L (<or=76)
== END 2024-10-04 18:40 | disposition home or self-care (01) ==
PROVIDERS: Emergency Provider Nurse Practitioner Family; PCP Family Medicine
DX: R11.0 Nausea (principal); I10 Essential (primary) hypertension; E78.00 Pure hypercholesterolemia, unspecified; E11.9 Type 2 diabetes mellitus without complications; E66.9 Obesity, unspecified; Z86.59 Personal history of other mental and behavioral disorders
CPT/HCPCS: 36415; 80053; 83690; 93005; 99284; 83735; 84484; 85025; 93010

== ENCOUNTER 2024-10-06 03:26 | Emergency (ER) | payer MEDICAID, SELFPAY ==
[2024-10-06] VITALS (27 sets, daily range): BP systolic 142–165; BP diastolic 74–90; PULSE 63–73; RESP 12–21; TEMP 36.8; O2SAT 93–99
--- NOTE | 2024-10-06 03:15 | RT.EKG_ITS ---
APPROVED REPORT Exam: Resting ECG Reason for Exam: chest pain Patient Location: E HR:69 bpm ECG Measurements Heart Rate 69 AXIS GA 206 P 46 QRSd 110 QRS 4 QT 426 T 155 QTc 455 Conclusion Sinus rhythm...normal P axis, V-rate 60- 99 Borderline prolonged GA interval...GA >202, V-rate 50- [address] segment or T wave abnormalities to suggest occlusive CT
--- NOTE | 2024-10-06 03:45 | DI.CT_ITS ---
Exam(s) CT THORAX ABD/PEL CTA EXAM: CT THORAX ABD/PEL CTA CLINICAL HISTORY: Chest pain concern for dissection. TECHNIQUE: Imaging Protocol: Axial CT angiography was performed with multi-slice acquisition and m ulti-planar and/or 3D reconstructions. CONTRAST MATERIAL: Intravenous: Omnipaque 350 Contrast volume:100 mL Oral: no COMPARISON: CT CT CHEST PE CTA from 01/06/2023 FINDINGS: Exam is limited by patient body habitus. CHEST: Pulmonary Arteries: No evidence of filling defect to suggest pulmonary emboli. Tracheobronchial tree: Patent where visualized. Mediastinum and Lou: No dominant adenopathy or fluid collection. Pulmonary parenchyma: No consolidation or dominant measurable mass. Evaluation somewhat limited due t o expiratory changes. Mild pneumonitis not excluded. Pleura: No effusion or pneumothorax. Heart: The heart is not dilated. No coronary artery calcifications are seen. Aorta: Thoracic aorta non-dilated. No significant atherosclerotic changes. Bones: Unremarkable for age. Tubes, Catheters, and Lines: None ABDOMEN AND PELVIS: Abdomen: Celiac axis/mesenteric arteries: No evidence of occlusion or significant stenosis. Renal Arteries: No evidence of occlusion or significant stenosis. There is a single renal artery per fusing each kidney. Aorta: No evidence of occlusion or significant stenosis. No significant atherosclerotic changes. N o aneurysm or dissection. Pelvis: Iliac Arteries: No evidence of occlusion or significant stenosis. Common Femoral Arteries: No evidence of occlusion or significant stenosis. ABDOMEN: Liver: Normal density. No measurable mass. Portal, Superior Mesenteric, and Splenic Veins: Unremarkable. Gallbladder and Biliary Tract: No radiodense calculus or dilation. Pancreas: Normal density, no abnormal calcifications or inflammatory process. Spleen: Normal. Adrenals: No masses seen. Kidneys: Normal size, contour and axis. No radiodense stones or obstructive uropathy. No masses seen. Bowel: Large quantity of stool throughout the colon consistent with constipation. No obstruction or bowel wall thickening. Appendix is unremarkable. Peritoneal Cavity: No ascites, collection or mesenteric inflammatory response. Lymph Nodes: Within normal limits. Bones: Unremarkable. Soft Tissues: Fat containing left inguinal hernia. Small fat containing umbilical hernia. PELVIS: Bladder: Symmetric distention, no gross wall thickening. Reproductive Organs: Unremarkable as visualized. Lymph Nodes: Within normal limits. Bones: Within normal limits. IMPRESSION: Normal CT Angiogram of the chest, abdomen and pelvis. Large quantity of stool consistent with consti pation. Limited evaluation of the lungs due to expiratory changes. RADIATION DOSE DELIVERED: 1394.18 mGy.cm Total DLP DATA REPOSITORY: All CT scans at this facility are submitted to the National Radiology Data Registry (NRDR) Dose Index Registry (DIR) with the [employer] (ACR). RADIATION OPTIMIZATION: All CT scans at this facility use at least one of these dose optimization te chniques: automated exposure control; mA and/or kV adjustment per patient size (includes targeted exa ms where dose is matched to clinical indication); or iterative reconstruction.
[2024-10-06 04:01] LABS: Abs Immature Grans 0.02 10^3/uL (0.0-0.06); Absolute Basophil Count 0.02 10^3/uL (0.0-0.2); Absolute Eosinophil Count 0.18 10^3/uL (0.0-0.7); Absolute Lymphocyte Count 2.06 10^3/uL (1.2-3.4); Absolute Monocyte Count 0.53 10^3/uL (0.1-0.8); Absolute Neutrophil Count 2.94 10^3/uL (1.2-6.7); Basophils % 0.3 %; Eosinophils % 3.1 %; HGB 10.6 g/dL (13.5-17.5); Immature Grans % 0.3 %; Lymphocytes % 35.8 %; MCH 31.9 pg (27.0-33.0); MCHC 33.1 % (32.0-36.0); MCV 96 fL (80-95); MPV 9.1 fL (8.0-11.0); Monocytes % 9.2 %; Neutrophils % 51.3 %; Platelet Count 127 10^3/uL (130-400); RBC 3.32 10^6/uL (4.36-5.78); RDW 12.7 % (11.8-14.1); RDW-SD 44.1 fL; WBC 5.75 10^3/uL (4.4-10.8)
--- NOTE | 2024-10-06 04:03 | ED.GENADUL_ITS ---
Discharge Plan Discharge Details Chief Complaint: Chest Pain Primary Care Provider: Brandon Foster ED Provider: Sparkle Slater Home Meds and New Rx's Prescriptions: No Action gabapentin 300 mg capsule 300 mg PO QID bupropion HCl 75 mg tablet 75 mg PO DAILY Rx Instructions: administer 6 hours apart sumatriptan succinate 100 mg tablet See Rx Instructions PO .COMPLEX Qty: 9 5RF Rx Instructions: take 1 tab at onset of headache; if no relief, may repeat 1 tab after at least 2 hrs; max = 2 tabs/24 hrs PO Nurtec ODT 75 mg tablet,disintegrating 75 mg PO ONCE PRN (Reason: migraine headache) Qty: 8 5RF Rx Instructions: as a single dose; no more than 1 tab per day Emgality Pen 120 mg/mL pen injector 120 mg subcut QMONTH Qty: 1 11RF Claritin Liqui-Gel 10 MG capsule 1 cap PO DAILY Qty: 90 metformin 500 mg tablet 500 mg PO BID fluoxetine 10 mg capsule See Rx Instructions PO .COMPLEX Rx Instructions: 5 mg orally AM; 10 mg afaternoon, 20 mg HS per PCP list 09/24/24 fluoxetine 40 mg capsule 40 mg PO DAILY multivitamin Tablet 1 tab PO DAILY clonazepam 0.5 mg tablet See Rx Instructions .ROUTE .COMPLEX Rx Instructions: 1 tab in AM, 1 tab at Noon and 2 tab QHS simvastatin 80 mg tablet 80 mg PO DAILY Patient Comments: Take 1 tablet by mouth once a day ondansetron HCl 4 mg tablet 4 mg PO Q8H PRN Patient Comments: Take 1 tablet by mouth every eight hours as needed as directed benztropine 0.5 MG tablet 0.5 mg PO BID aspirin,buffd-calcium carb-mag 325 MG tablet 325 mg PO DAILY lactulose 10 gram/15 mL solution 20 g PO DIRECTED PRN Patient Comments: TAKE ONE TO TWO TABLESPOONS BY MOUTH NEEDED WHEN 3 DAYS PASS WITHOUT BOWEL MOVEMENT albuterol sulfate 90 mcg/actuation aerosol powdr breath activated 2 inh IH Q6H PRN (Reason: shortness of breath or wheezing) Qty: 1 0RF atenolol 25 mg tablet 75 mg PO DAILY Patient Comments: Take 3 tablet by mouth once a day Invega Sustenna 117 mg/0.75 mL syringe 117 mg IM Q30D divalproex [Depakote ER] 500 mg tablet extended release 24 hr 1,000 mg PO BID omeprazole 40 mg capsule,delayed release(DR/EC) 40 mg PO DAILY Patient Comments: TAKE 1 CAPSULE BY MOUTH DAILY FOR HEARTBURN HPI General Mode of arrival: EMS . Date/Time Provider Initiated Documentation: 10/06/24 03:54 . Limitations to Documentation: no limitations . Information obtained by: patient and EMS . HPI Narrative: 59yo M with hx obesity, T2DM, HTN, HLD, asthma, GERD, anxiety, schizoaffective disorder, presenting for chest pain. Reports he was resting but awake at around 0300 when he suddenly felt two 'sharp stabbing' pains in his chest that radiated into his back. Pain with severe and took his breath way. That resolves without intervention but he now has dull substernal chest pain which is constant. Associated mild shortness of breath, not sure if this is worse than usual. No nausea, vomiting, abdominal pain, numbness, tingling, weakness, or other concerns. Otherwise in his usual state of health with no fevers, chills, rash, cough, dysuria, hematuria, flank pain, or other concerns. Related Data Home Medications ?Medication ?Instructions ?Recorded ?Confirmed loratadine 10 mg capsule (Claritin 1 cap PO DAILY #90 tabs 12/16/14 10/06/24 Liqui-Gel) aspirin,buffered (calcium 325 mg PO DAILY 11/18/16 10/06/24 carbonate-magnesium) 325 mg tablet benztropine 0.5 mg tablet 0.5 mg PO BID 11/18/16 10/06/24 lactulose 10 gram/15 mL oral 20 g PO DIRECTED PRN 10/03/20 10/06/24 solution albuterol sulfate 90 mcg/actuation 2 inh inhalation Q6H PRN shortness 12/15/20 10/06/24 breath activated powder inhaler of breath or wheezing #1 ea multivitamin 1 tab PO DAILY 01/26/21 10/06/24 clonazepam 0.5 mg tablet See Rx Instructions .Route .COMPLEX 03/04/23 10/06/24 gabapentin 300 mg capsule 300 mg PO QID 03/27/23 10/06/24 atenolol 25 mg tablet 75 mg PO DAILY 01/31/24 10/06/24 divalproex 500 mg tablet,extended 1,000 mg PO BID 01/31/24 10/06/24 release 24 hr (Depakote ER) omeprazole 40 mg capsule,delayed 40 mg PO DAILY 01/31/24 10/06/24 release paliperidone palmitate 117 mg/0.75 117 mg IM Q30D 01/31/24 10/06/24 mL intramuscular syringe (Invega Sustenna) simvastatin 80 mg tablet 80 mg PO DAILY 03/08/24 10/06/24 ondansetron HCl 4 mg tablet 4 mg PO Q8H PRN 07/22/24 10/06/24 bupropion HCl 75 mg tablet 75 mg PO DAILY 08/04/24 10/06/24 galcanezumab-gnlm 120 mg/mL 120 mg subcut QMONTH #1 mL 08/04/24 10/06/24 subcutaneous pen injector (Emgality Pen) rimegepant 75 mg disintegrating 75 mg PO ONCE PRN migraine 08/04/24 10/06/24 tablet (Nurtec ODT) headache #8 tabs sumatriptan succinate 100 mg tablet See Rx Instructions PO .COMPLEX #9 08/04/24 10/06/24 tabs fluoxetine 10 mg capsule See Rx Instructions PO .COMPLEX 09/24/24 10/06/24 fluoxetine 40 mg capsule 40 mg PO DAILY 09/24/24 10/06/24 metformin 500 mg tablet 500 mg PO BID 09/24/24 10/06/24 Previous Rx's ?Medication ?Instructions ?Recorded albuterol sulfate 90 mcg/actuation 2 inh inhalation Q6H PRN shortness 12/15/20 breath activated powder inhaler of breath or wheezing #1 ea galcanezumab-gnlm 120 mg/mL 120 mg subcut QMONTH #1 mL 08/04/24 subcutaneous pen injector (Emgality Pen) rimegepant 75 mg disintegrating 75 mg PO ONCE PRN migraine 08/04/24 tablet (Nurtec ODT) headache #8 tabs sumatriptan succinate 100 mg tablet See Rx Instructions PO .COMPLEX #9 08/04/24 tabs Allergies Allergy/AdvReac Type Severity Reaction Status Date / Time buspirone Allergy Other (See Verified 10/06/24 03:35 Comment) paliperidone Allergy Other (See Verified 10/06/24 03:35 Comment) paroxetine HCl (From Paxil) Allergy Other (See Verified 10/06/24 03:35 Comment) sertraline Allergy Other (See Verified 10/06/24 03:35 Comment) ziprasidone (From Geodon) Allergy Other (See Verified 10/06/24 03:35 Comment) aripiprazole (From Abilify) AdvReac Intermediate INVOLUNTARY Verified 10/06/24 03:35 MUSCLE MOVEMENTS mirtazapine AdvReac Intermediate INVOLUNTARY Verified 10/06/24 03:35 MUSCLE MOVEMENTS risperidone AdvReac Intermediate INVOLUNTARY Verified 10/06/24 03:35 MUSCLE MOVEMENTS enviornmental Allergy Mild Wheezing Uncoded 10/06/24 03:35 General Stated Complaint: Chest Pain CARLOS: 3 Review of Systems Narrative: see HPI Exam Narrative Exam Narrative: General: Alert, well appearing, obese, in no acute distress. Head: Normocephalic, atraumatic Neck: Trachea midline, ?Neck supple. ENT: ?MMM.? No oropharygeal lesions or exudate. Cardiac: ?RRR, no murmurs appreciated. 2+ symmetric radial pulses bilaterally. Resp: No respiratory distress. CTAB. Abd: ?Soft, non-distended, nontender : ?No suprapubic tenderness. No CVA tenderness. Extremities: .? No peripheral edema. Neurologic: GCS 15. ? Moves all extremities freely against gravity Course Vital Signs Vital signs: Vital Signs Temperature 36.8 C 10/06/24 03:29 Pulse 68 10/06/24 03:29 Respiratory Rate 16 10/06/24 03:29 Blood Pressure 165/79 H 10/06/24 03:29 Pulse Oximetry 99 10/06/24 03:29 Temperature 36.8 C 10/06/24 03:29 Temperature Source Temporal Artery Scan 10/06/24 03:29 Pulse 68 10/06/24 03:29 Respiratory Rate 14 10/06/24 03:38 Respiratory Effort Normal, Non-Labored 10/06/24 03:38 Respiratory Depth Normal 10/06/24 03:38 Respiratory Pattern Normal 10/06/24 03:38 Blood Pressure 165/79 H 10/06/24 03:29 Blood Pressure Position Supine 10/06/24 03:29 Pulse Oximetry 99 10/06/24 03:29 Oxygen Delivery Method Room Air 10/06/24 03:29 Oxygen Flow Rate 0 10/06/24 03:29 Pain Level 7 10/06/24 03:38 Medical Decision Making 59yo M with hx obesity, T2DM, HTN, HLD, asthma, GERD, anxiety, schizoaffective disorder, presenting for chest pain. Onset 30 minutes prior to arrival, initially brief sharp stabbing pain radiating into his back, now dull constant pressure in the center of his chest. Hypertensive on arrival, vital signs and physical exam otherwise reassuring. 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 EKG on arrival SR, no ST segment or T wave abnormalities to suggest occlusive ME. D oes have frequent ED visits for chest pain with reassuring workups, however today pain is different and sharp/stabbing nature has never been experienced before. Will evaluate with labs/troponins/CTA for dissection (less likely pulmonary embolism). -Labs reviewed as below, CBC with no leukocytosis and anemia at baseline with Hg 10.6, CMP with no actionable abnormalities, initial troponin normal, BNP normal, lipase normal (unlikely pancreatitis). -Technical difficulties performing CT which was delayed, support coming to assist. -HEART score 3 for age, risk factors; low risk. 2 hour repeat troponin unchanged. Unlikely ACS, would not pursue further with additional troponins or admission. On reassessment he remains non-toxic appearing, symptoms are unchanged. I have a low level of concern for dissection but do feel it warrants evaluation with CT imaging. Considered further risk stratifying with d-dimer however pt with morbid obesity and chronically/frequently elevated dimer here in the past, unlikely to be helpful. Will be signed out to oncoming physician, plan to followup CTA and reassess. If no significant findings on CTA would likely discharge home to followup with PCP. Lab Data Lab results reviewed: Yes I reviewed the patient's lab results. Labs: Laboratory Tests Range/Units 10/06/24 03:41 WBC (4.4-10.8) 10^3/uL 5.75 RBC (4.36-5.78) 10^6/uL 3.32 L Hgb (13.5-17.5) g/dL 10.6 L Hct (40.0-50.0) % 32.0 L MCV (80-95) fL 96 H MCH (27.0-33.0) pg 31.9 MCHC (32.0-36.0) % 33.1 RDW (11.8-14.1) % 12.7 Plt Count (130-400) 10^3/uL 127 L MPV (8.0-11.0) fL 9.1 Immature Gran % % 0.3 Neutrophils % % 51.3 Lymphocytes % % 35.8 Monocytes % % 9.2 Eosinophils % % 3.1 Basophils % % 0.3 Nucleated RBC % (0.0-0.3) % 0.0 Absolute Neutrophils (1.2-6.7) 10^3/uL 2.94 Absolute Lymphocytes (1.2-3.4) 10^3/uL 2.06 Absolute Monocytes (0.1-0.8) 10^3/uL 0.53 Absolute Eosinophils (0.0-0.7) 10^3/uL 0.18 Absolute Basophils (0.0-0.2) 10^3/uL 0.02 PT (9.1-11.1) sec 10.1 INR (0.9-1.1) 1.0 APTT (23.6-32.8) sec 23.1 L Sodium (136-145) mmol/L 136 Potassium (3.5-5.1) mmol/L 4.4 Chloride (98-107) mmol/L 99 Carbon Dioxide (21.0-32.0) mmol/L 32.4 H Anion Gap (3-11) mmol/L 4.6 BUN (7-18) mg/dL 12 Creatinine (0.70-1.30) mg/dL 0.9 Est GFR (CKD-EPI 2020) (mL/min/1.73m2) 98.38 Glucose (74-106) mg/dL 112 H Calcium (8.5-10.1) mg/dL 8.6 Magnesium (1.8-2.4) mg/dL 1.7 L Total Bilirubin (0.2-1.0) mg/dL 0.25 AST (15-37) U/L 16 ALT (16-63) U/L 21 Alkaline Phosphatase (46-116) U/L 61 Troponin I (<or=76) ng/L 5 NT-Pro-B Natriuret Pep (<300) pg/mL 134 Total Protein (6.4-8.2) g/dL 7.3 Albumin (3.4-5.0) g/dL 3.2 L Lipase (<78) U/L 11 Quality:SDOH Health Related Social Needs: Health related social needs food insecurity(Z59.41) PFSH All Active Problems (Updated 10/04/24 @ 17:43 by Ignacia Brink) Nausea (Acute) Headache (Acute) Knee pain (Acute) Dental caries (Acute) Nicotine dependence (Acute) Dyspnea on exertion (Acute) Shortness of breath (Acute) Hypercholesterolemia (Chronic 09/07/14) pt insists on lipitor 80 mg due to family hx Depression (Acute 10/02/14) Left-sided chest wall pain (Acute) Chest pain (Acute) Chronic headache (Acute) Migraine headache without aura (Acute) Migraine (Chronic) Poor dentition (Acute) Tobacco use disorder (Chronic) started 2013 1.5 ppd, pipe 1-7/week, QUIT LATE OCT 2021 Allergic rhinitis (Chronic) lortadine Hiatal hernia (Chronic) protonix not effective, nexium works better 02/12/18 Anemia (Chronic) Broken teeth (Chronic) Drug-seeking behavior (Chronic ~09/20/21) Requests Ritalin from providers Medication overuse headache (Acute) Medical History Obesity BMI 52 Hypertension pt requests brand name Tenormin vs atenolol 04/02/18 GERD (gastroesophageal reflux disease) (09/07/14) Diabetes mellitus type 2 in obese (09/09/14) Hypothyroidism (acquired) (09/07/14) Schizoaffective disorder (09/07/14) Rebekah Mariscal [facility] 09/2014- [facility] inpatient Trigeminal neuralgia Anxiety Mitral valve prolapse Hyperlipidemia Peripheral neuropathy Surgical History No significant past surgical history Family History Father Heart disease ME Social History Smoking/Tobacco Use Status: Former Tobacco Use Smoking risk assessment performed?: Yes Alcohol Intake: never Drug use: Never Substance use type: does not use Adopted: No Caregiver/Support person: No Foster care: No Household members: none Housing: apartment Number of Children: 2 number of grandchildren: 1 Communication Needs: Corrective Lenses Education Level: college Do you need help understanding health information?: Always current occupation: Unemployed/Leave of absence Sexually active: No Do you think of yourself as: Decline to provide Current gender identity: male What type of physical activity do you participate in: other Details: weight lifting Frequency: 3-4 times per week Magalie/Cheondoism: Yazidi Seatbelt use: always Drive intox or ride w/intox entry driver operator: No Working smoke detector in home: Yes Fire extinguisher in home: Yes Carbon monox detector in home: Yes Do you feel safe at home: Yes (anxiety and depression) Do you feel safe in your relationship?: Yes
[2024-10-06 04:16] LABS: PTT Activated 23.1 sec (23.6-32.8); Prothrombin Time 10.1 sec (9.1-11.1)
[2024-10-06 04:24] LABS: ALT 21 U/L (16-63); AST 16 U/L (15-37); Albumin 3.2 g/dL (3.4-5.0); Alkaline Phosphatase 61 U/L (46-116); Anion Gap 4.6 mmol/L (3-11); BUN 12 mg/dL (7-18); Bilirubin, Total 0.25 mg/dL (0.2-1.0); CO2 32.4 mmol/L (21.0-32.0); CREATININE 0.9 mg/dL (0.70-1.30); Calcium 8.6 mg/dL (8.5-10.1); Chloride 99 mmol/L (98-107); Estimated GFR 98.38 (mL/min/1.73m2); Glucose 112 mg/dL (74-106); Magnesium 1.7 mg/dL (1.8-2.4); Potassium 4.4 mmol/L (3.5-5.1); Sodium 136 mmol/L (136-145); Total Protein 7.3 g/dL (6.4-8.2); Troponin I 5 ng/L (<or=76)
[2024-10-06] MEDS: Normal Saline - Diluent 50 ML VIAL IJ (04:26)
[2024-10-06] MEDS: Omnipaque 350 MG/ML 100 ML BTL IJ (04:26)
[2024-10-06] MEDS: Normal Saline Flush 10 ML SYR IVP (04:27)
[2024-10-06 04:50] LABS: Lipase 11 U/L (<78); NT-proBNP 134 pg/mL (<300)
--- NOTE | 2024-10-06 05:45 | NUR.NOTE ---
2nd troponin and mylanta delayed due to pt scan complications while in DI, [facility]
[2024-10-06] MEDS: Mylanta Suspension 30 ML CUP PO (05:48)
[2024-10-06 06:03] LABS: Troponin I 5 ng/L (<or=76)
--- NOTE | 2024-10-06 06:43 | W.PCEDHO ---
Registration Status: Primary Language: Preferred Language: ED Information & Data Chief Complaint Chest Pain 10/06/24 04:04 Triage Note Was sleeping, stated he woke 10/06/24 03:29 up about 30 minutes ago with 2 sharp pains, he called 911 and requested transport to hospital for evaluation, also stated he is short of breath, denied nausea or diaphoresis, EMS gave 4 ASA, still reports a non descript chest pain rated 7/10 Medical / Surgical History (Last Reviewed 08/27/24 @ 00:11 by Froilan Iraheta DO) Anxiety Diabetes mellitus type 2 in obese (09/09/14) GERD (gastroesophageal reflux disease) (09/07/14) Hyperlipidemia Hypertension Hypothyroidism (acquired) (09/07/14) Mitral valve prolapse Obesity Peripheral neuropathy Schizoaffective disorder (09/07/14) Trigeminal neuralgia (Last Reviewed 08/27/24 @ 00:11 by Froilan Iraheta DO) No significant past surgical history Most Recent Vital Signs Temperature 36.8 C 10/06/24 03:29 Temperature Source Temporal Artery Scan 10/06/24 03:29 Pulse 64 10/06/24 05:49 Pulse 65 10/06/24 06:40 Respiratory Rate 16 10/06/24 06:40 Respiratory Effort Normal, Non-Labored 10/06/24 03:38 Respiratory Depth Normal 10/06/24 03:38 Respiratory Pattern Normal 10/06/24 03:38 Blood Pressure 142/79 H 10/06/24 06:42 Blood Pressure Mean 100 10/06/24 06:42 Blood Pressure Position Sitting 10/06/24 06:42 Pulse Oximetry 97 10/06/24 06:40 Oxygen Delivery Method Room Air 10/06/24 03:29 Oxygen Flow Rate 0 10/06/24 03:29 Pain Level 7 10/06/24 03:38 Allergies buspirone Allergy (Verified 10/06/24 03:35) Other (See Comment) paliperidone Allergy (Verified 10/06/24 03:35) Other (See Comment) paroxetine HCl (From Paxil) Allergy (Verified 10/06/24 03:35) Other (See Comment) sertraline Allergy (Verified 10/06/24 03:35) Other (See Comment) ziprasidone (From Geodon) Allergy (Verified 10/06/24 03:35) Other (See Comment) [facility]ole ([facility] Adverse Reaction (Intermediate, Verified 10/06/24 03:35) INVOLUNTARY MUSCLE MOVEMENTS mirtazapine Adverse Reaction (Intermediate, Verified 10/06/24 03:35) INVOLUNTARY MUSCLE MOVEMENTS risperidone Adverse Reaction (Intermediate, Verified 10/06/24 03:35) INVOLUNTARY MUSCLE MOVEMENTS enviornmental Allergy (Mild, Uncoded 10/06/24 03:35) Wheezing Precautions Isolation Standard precaution 10/06/24 03:37 Active Medications Generic Name Dose Route Start Last Admin Trade Name Freq PRN Reason Stop Dose Admin Iohexol 100 ml 10/06/24 04:30 10/06/24 04:26 Omnipaque 350 Mg/Ml 100 Ml Btl IJ 11/05/24 23:59 100 ml DIRECTED ADALGISA Administration Sodium Chloride 50 ml 10/06/24 04:30 10/06/24 04:26 Normal Saline - Diluent 50 Ml Vial IJ 50 ml .FOR DI USE ADALGISA Administration Sodium Chloride 0 ml 10/06/24 04:27 10/06/24 04:27 Normal Saline Flush 10 Ml Syr IVP 10 ml PRN PRN Administration IV IV Catheter Type [Left Saline Lock Antecubital] IV Catheter Type [Right Saline Lock Antecubital] IV Catheter Gauge [Left 18 Antecubital] IV Catheter Gauge [Right 18 Antecubital] Diagnostics 10/06/24 10/06/24 10/06/24 Range/Units 06:55 05:42 03:41 WBC 5.75 (4.4-10.8) 10^3/uL RBC 3.32 L (4.36-5.78) 10^6/uL Hgb 10.6 L (13.5-17.5) g/dL Hct 32.0 L (40.0-50.0) % MCV 96 H (80-95) fL MCH 31.9 (27.0-33.0) pg MCHC 33.1 (32.0-36.0) % RDW 12.7 (11.8-14.1) % Plt Count 127 L (130-400) 10^3/uL MPV 9.1 (8.0-11.0) fL Immature Gran % 0.3 % Neutrophils % 51.3 % Lymphocytes % 35.8 % Monocytes % 9.2 % Eosinophils % 3.1 % Basophils % 0.3 % Nucleated RBC % 0.0 (0.0-0.3) % Absolute Neutrophils 2.94 (1.2-6.7) 10^3/uL Absolute Lymphocytes 2.06 (1.2-3.4) 10^3/uL Absolute Monocytes 0.53 (0.1-0.8) 10^3/uL Absolute Eosinophils 0.18 (0.0-0.7) 10^3/uL Absolute Basophils 0.02 (0.0-0.2) 10^3/uL PT 10.1 (9.1-11.1) sec INR 1.0 (0.9-1.1) APTT 23.1 L (23.6-32.8) sec Sodium 136 (136-145) mmol/L Potassium 4.4 (3.5-5.1) mmol/L Chloride 99 (98-107) mmol/L Carbon Dioxide 32.4 H (21.0-32.0) mmol/L Anion Gap 4.6 (3-11) mmol/L BUN 12 (7-18) mg/dL Creatinine 0.9 (0.70-1.30) mg/dL Est GFR (CKD-EPI 2020) 98.38 (mL/min/1.73m2) Glucose 112 H (74-106) mg/dL Calcium 8.6 (8.5-10.1) mg/dL Magnesium 1.7 L (1.8-2.4) mg/dL Total Bilirubin 0.25 (0.2-1.0) mg/dL AST 16 (15-37) U/L ALT 21 (16-63) U/L Alkaline Phosphatase 61 (46-116) U/L Troponin I Cancelled 5 5 (<or=76) ng/L NT-Pro-B Natriuret Pep 134 (<300) pg/mL Total Protein 7.3 (6.4-8.2) g/dL Albumin 3.2 L (3.4-5.0) g/dL Lipase 11 (<78) U/L Intake and Output - 24 Hour Total 10/06/24 03:20 thru 10/06/24 03:29 Weight 178.5 kg Falls Risk Assessment History of Falls No History 10/06/24 03:41 Contributing Factors No Factors 10/06/24 03:41 Ambulatory Aids Independent 10/06/24 03:41 Tubes/Lines None 10/06/24 03:41 Gait Evaluation No gait disturbance 10/06/24 03:41 Cognition No cognitive impairment 10/06/24 03:41 Fall Total Score 0 10/06/24 03:41 Level of Risk Standard/Low Risk 10/06/24 03:41 Notes 10/06/24 05:45 Nursing Notes by David Eubanks 2nd troponin and mylanta delayed due to pt scan complications while in DI, [facility] Initialized on 10/06/24 05:45 - END OF NOTE v v v v v v v v v Sending and/or Receiving Nurses: Please use comment section below to note any information pertinent to the patient hand-off not included above. Information / Comments: Report received from: David Eubanks, Impregnator Operator @ 0640 10/06/24
--- NOTE | 2024-10-06 07:16 | DI.VRAD_ITS ---
PROCEDURE INFORMATION: Exam: CTA Chest With Contrast CTA Abdomen and Pelvis With Contrast Exam date and time: 10/06/2024 4:23 AM Age: 59 years old Clinical indication: Chest pressure; Abdominal pain; Generalized; Patient HX: Chest pain, concern for dissection TECHNIQUE: Imaging protocol: Computed tomographic angiography of the chest with contrast. Exam focused on the arteries. Computed tomographic angiography of the abdomen and pelvis with contrast. Exam focused on the arteries. 3D rendering (Not supervised by radiologist): MIP and/or 3D reconstructed images were created by the technologist. Radiation optimization: All CT scans at this facility use at least one of these dose optimization techniques: automated exposure control; mA and/or kV adjustment per patient size (includes targeted exams where dose is matched to clinical indication); or iterative reconstruction. Contrast material: OMNIPAQUE 350; Contrast volume: 100 ml; Contrast route: INTRAVENOUS (IV); COMPARISON: CT CHEST PE CTA 01/06/2023 12:49 PM FINDINGS: VASCULATURE: Pulmonary arteries: Normal. No pulmonary emboli. Aorta: No aortic aneurysm. No aortic dissection. Celiac trunk and mesenteric arteries: No occlusion or significant stenosis. Renal arteries: No occlusion or significant stenosis. Right iliac arteries: No occlusion or significant stenosis. Left iliac arteries: No occlusion or significant stenosis. CHEST: Lungs: Mild dependent atelectasis at the lung bases. No evidence for pneumonia. Pleural spaces: Unremarkable. No pneumothorax. No pleural effusion. Heart: Unremarkable. No cardiomegaly. No pericardial effusion. Coronary arteries: No coronary artery calcifications. ABDOMEN AND PELVIS: Liver: No mass. Gallbladder and biliary ducts: Unremarkable. No calcified stones. No ductal dilation. Pancreas: Fatty infiltration of the pancreas. Spleen: Unremarkable. No splenomegaly. Adrenal glands: Unremarkable. No mass. Kidneys and ureters: Kidneys enhance symmetrically. No stones or hydronephrosis. Stomach and bowel: Heavy stool load. Stomach and small bowel are unremarkable. Appendix: Normal appendix. Intraperitoneal space: Unremarkable. No free air. No significant fluid collection. Urinary bladder: Unremarkable. No mass. Reproductive: Unremarkable as visualized. Lymph nodes: Unremarkable. No enlarged lymph nodes. Bones/joints: Degenerative changes throughout the spine. Soft tissues: Unremarkable. IMPRESSION: Heavy stool load. Correlate clinically for possible constipation. No evidence of pulmonary emboli, aneurysm or dissection. Dictated and Authenticated by: Sparkle Pickens MD. Ordering:ARNOLD Villagran MD
--- NOTE | 2024-10-06 07:31 | W.EDPROG ---
Date of service: 10/06/24 Time of Service: 07:[address] completed prior to signout. CT independently reviewed, no pneumothorax or clear aortic dissection or large saddle pulmonary embolus on my view, radiology read below. On reassessment he reports his pain has entirely resolved. Repeat BP improved 140's/70's. Discharged home to close outpatient followup with PCP. Discharge instructions and return precautions were reviewed with patient who verbalized understanding. All questions were answered and he is in full agreement with the plan. Imaging Data Radiologic Study: Imaging: CT Scan Radiologist's impression: IMPRESSION: Heavy stool load. Correlate clinically for possible constipation. No evidence of pulmonary emboli, aneurysm or dissection. Quality:SDOH Health Related Social Needs: Health related social needs food insecurity(Z59.41) Discharge Plan Disposition Patient Disposition: Home Condition: Good Discharge Details Clinical Impression: Chest pain Primary Care Provider: Brandon Foster ED Provider: Sparkle Slater Home Meds and New Rx's Prescriptions: Continued gabapentin 300 mg capsule 300 mg PO QID bupropion HCl 75 mg tablet 75 mg PO DAILY Rx Instructions: administer 6 hours apart sumatriptan succinate 100 mg tablet See Rx Instructions PO .COMPLEX Qty: 9 5RF Rx Instructions: take 1 tab at onset of headache; if no relief, may repeat 1 tab after at least 2 hrs; max = 2 tabs/24 hrs PO Nurtec ODT 75 mg tablet,disintegrating 75 mg PO ONCE PRN (Reason: migraine headache) Qty: 8 5RF Rx Instructions: as a single dose; no more than 1 tab per day Emgality Pen 120 mg/mL pen injector 120 mg subcut QMONTH Qty: 1 11RF Claritin Liqui-Gel 10 MG capsule 1 cap PO DAILY Qty: 90 metformin 500 mg tablet 500 mg PO BID fluoxetine 10 mg capsule See Rx Instructions PO .COMPLEX Rx Instructions: 5 mg orally AM; 10 mg afaternoon, 20 mg HS per PCP list RH 09/24/24 fluoxetine 40 mg capsule 40 mg PO DAILY multivitamin Tablet 1 tab PO DAILY clonazepam 0.5 mg tablet See Rx Instructions .ROUTE .COMPLEX Rx Instructions: 1 tab in AM, 1 tab at Noon and 2 tab QHS simvastatin 80 mg tablet 80 mg PO DAILY Patient Comments: Take 1 tablet by mouth once a day ondansetron HCl 4 mg tablet 4 mg PO Q8H PRN Patient Comments: Take 1 tablet by mouth every eight hours as needed as directed benztropine 0.5 MG tablet 0.5 mg PO BID aspirin,buffd-calcium carb-mag 325 MG tablet 325 mg PO DAILY lactulose 10 gram/15 mL solution 20 g PO DIRECTED PRN Patient Comments: TAKE ONE TO TWO TABLESPOONS BY MOUTH NEEDED WHEN 3 DAYS PASS WITHOUT BOWEL MOVEMENT albuterol sulfate 90 mcg/actuation aerosol powdr breath activated 2 inh IH Q6H PRN (Reason: shortness of breath or wheezing) Qty: 1 0RF atenolol 25 mg tablet 75 mg PO DAILY Patient Comments: Take 3 tablet by mouth once a day Invega Sustenna 117 mg/0.75 mL syringe 117 mg IM Q30D divalproex [Depakote ER] 500 mg tablet extended release 24 hr 1,000 mg PO BID omeprazole 40 mg capsule,delayed release(DR/EC) 40 mg PO DAILY Patient Comments: TAKE 1 CAPSULE BY MOUTH DAILY FOR HEARTBURN Discharge Instructions Instructions: Chest Pain, Adult ED Additional Instructions: Your labs, EKG, and CT scan are reassuring. I am not sure what is causing your chest pain. It is important that you followup with your primary care doctor as they may want to do further tests to evaluate your heart. Call your primary care doctor today to schedule an appointment to be seen within the next 48 hours to followup on your visit here. Return to the emergency department for new or worsening symptoms including new/different/worse chest pain, difficulty breathing, palpitations, feeling like you are going to pass out, or if you have any other concerns. Referrals: Brandon Foster [Primary Care Provider] -
== END 2024-10-06 07:50 | disposition home or self-care (01) ==
PROVIDERS: Emergency Provider Student in an Organized Health Care Education/Training Program; PCP Family Medicine
DX: R07.9 Chest pain, unspecified (principal); R06.02 Shortness of breath; I10 Essential (primary) hypertension; E11.40 Type 2 diabetes mellitus with diabetic neuropathy, unspecified; E78.5 Hyperlipidemia, unspecified; Z79.84 Long term (current) use of oral hypoglycemic drugs; Z87.891 Personal history of nicotine dependence
CPT/HCPCS: 00123; 36415; 71275; 80053; 83690; 93005; 99285; 74174; 83735; 83880; 84484; 85025; 85610; 85730; 93010; 99284; J3490

== ENCOUNTER 2024-10-06 09:57 | Emergency (ER) | payer MEDICAID, SELFPAY ==
--- NOTE | 2024-10-06 09:45 | RT.EKG_ITS ---
APPROVED REPORT Exam: Resting ECG Reason for Exam: chest pain Patient Location: E HR:64 bpm ECG Measurements Heart Rate 64 AXIS SC 191 P 46 QRSd 98 QRS 24 QT 409 T 64 QTc 424 Conclusion Sinus rhythm...normal P axis, V-rate 60- 99 I have reviewed and interpreted ECG and agree with software generated interpretation.
[2024-10-06 10:01] VITALS: BP 175/79; PULSE 66; RESP 15; O2SAT 99
[2024-10-06 10:04] VITALS: RESP 20
[2024-10-06] MEDS: Dicyclomine 10 MG CAP PO (10:14)
[2024-10-06] MEDS: Sucralfate 1 GM TAB PO (10:15)
--- NOTE | 2024-10-06 11:03 | W.ED.GENAD ---
Discharge Plan Disposition Patient Disposition: Home Condition: Good Discharge Details Chief Complaint: Chest Pain Clinical Impression: Stomach discomfort Primary Care Provider: Brandon Foster ED Provider: Froilan Iraheta Home Meds and New Rx's Prescriptions: No Action gabapentin 300 mg capsule 300 mg PO QID bupropion HCl 75 mg tablet 75 mg PO DAILY Rx Instructions: administer 6 hours apart sumatriptan succinate 100 mg tablet See Rx Instructions PO .COMPLEX Qty: 9 5RF Rx Instructions: take 1 tab at onset of headache; if no relief, may repeat 1 tab after at least 2 hrs; max = 2 tabs/24 hrs PO Nurtec ODT 75 mg tablet,disintegrating 75 mg PO ONCE PRN (Reason: migraine headache) Qty: 8 5RF Rx Instructions: as a single dose; no more than 1 tab per day Emgality Pen 120 mg/mL pen injector 120 mg subcut QMONTH Qty: 1 11RF Claritin Liqui-Gel 10 MG capsule 1 cap PO DAILY Qty: 90 metformin 500 mg tablet 500 mg PO BID fluoxetine 10 mg capsule See Rx Instructions PO .COMPLEX Rx Instructions: 5 mg orally AM; 10 mg afaternoon, 20 mg HS per PCP list 09/24/24 fluoxetine 40 mg capsule 40 mg PO DAILY multivitamin Tablet 1 tab PO DAILY clonazepam 0.5 mg tablet See Rx Instructions .ROUTE .COMPLEX Rx Instructions: 1 tab in AM, 1 tab at Noon and 2 tab QHS simvastatin 80 mg tablet 80 mg PO DAILY Patient Comments: Take 1 tablet by mouth once a day ondansetron HCl 4 mg tablet 4 mg PO Q8H PRN Patient Comments: Take 1 tablet by mouth every eight hours as needed as directed benztropine 0.5 MG tablet 0.5 mg PO BID aspirin,buffd-calcium carb-mag 325 MG tablet 325 mg PO DAILY lactulose 10 gram/15 mL solution 20 g PO DIRECTED PRN Patient Comments: TAKE ONE TO TWO TABLESPOONS BY MOUTH NEEDED WHEN 3 DAYS PASS WITHOUT BOWEL MOVEMENT albuterol sulfate 90 mcg/actuation aerosol powdr breath activated 2 inh IH Q6H PRN (Reason: shortness of breath or wheezing) Qty: 1 0RF atenolol 25 mg tablet 75 mg PO DAILY Patient Comments: Take 3 tablet by mouth once a day Invega Sustenna 117 mg/0.75 mL syringe 117 mg IM Q30D divalproex [Depakote ER] 500 mg tablet extended release 24 hr 1,000 mg PO BID omeprazole 40 mg capsule,delayed release(DR/EC) 40 mg PO DAILY Patient Comments: TAKE 1 CAPSULE BY MOUTH DAILY FOR HEARTBURN Discharge Instructions Additional Instructions: Please take 2 or 3 Tums 3 times a day to help with stomach irritation. If you notice any worsening of your symptoms, or any new symptoms such as vomiting, diarrhea, fever, chills, shortness of breath, chest pain, numbness, weakness, or fainting , please return immediately to the emergency department for reevaluation. Please follow up with your primary care provider as soon as possible for reassessment and reevaluation. As always, it was a pleasure participating in your medical care today. Referrals: Brandon Foster [Primary Care Provider] - [facility] General Date/Time Provider Initiated Documentation: 10/06/24 10:00. [facility] Narrative: This is a 59-year-old male with a past medical history of anxiety, depression, type 2 diabetes, high cholesterol, obesity, schizoaffective disorder, hypothyroidism, chronic headaches who presents today for chest discomfort. Patient was just here about 2 hours ago. He had a notably thorough and appropriate workup by my colleague which included a CTA of his chest, abdomen, and pelvis which was negative for any acute process, including dissection or PE. There was a large burden of stool present but no other abnormalities. Cardiac workup including EKG were stable and benign. Troponins were normal. Patient went home, had continued to mild epigastric and chest achiness which is chronic and not acute. He then elected to call EMS and was brought back in for reevaluation. He denies any severe tearing or ripping sensation. No pleuritic chest pain. No severe crushing pain. No vomiting or diarrhea. No other complaints at this time. Related Data Home Medications ?Medication ?Instructions ?Recorded ?Confirmed loratadine 10 mg capsule (Claritin 1 cap PO DAILY #90 tabs 12/16/14 10/06/24 Liqui-Gel) aspirin,buffered (calcium 325 mg PO DAILY 11/18/16 10/06/24 carbonate-magnesium) 325 mg tablet benztropine 0.5 mg tablet 0.5 mg PO BID 11/18/16 10/06/24 lactulose 10 gram/15 mL oral 20 g PO DIRECTED PRN 10/03/20 10/06/24 solution albuterol sulfate 90 mcg/actuation 2 inh inhalation Q6H PRN shortness 12/15/20 10/06/24 breath activated powder inhaler of breath or wheezing #1 ea multivitamin 1 tab PO DAILY 01/26/21 10/06/24 clonazepam 0.5 mg tablet See Rx Instructions .Route .COMPLEX 03/04/23 10/06/24 gabapentin 300 mg capsule 300 mg PO QID 03/27/23 10/06/24 atenolol 25 mg tablet 75 mg PO DAILY 01/31/24 10/06/24 divalproex 500 mg tablet,extended 1,000 mg PO BID 01/31/24 10/06/24 release 24 hr (Depakote ER) omeprazole 40 mg capsule,delayed 40 mg PO DAILY 01/31/24 10/06/24 release paliperidone palmitate 117 mg/0.75 117 mg IM Q30D 01/31/24 10/06/24 mL intramuscular syringe (Invega Sustenna) simvastatin 80 mg tablet 80 mg PO DAILY 03/08/24 10/06/24 ondansetron HCl 4 mg tablet 4 mg PO Q8H PRN 07/22/24 10/06/24 bupropion HCl 75 mg tablet 75 mg PO DAILY 08/04/24 10/06/24 galcanezumab-gnlm 120 mg/mL 120 mg subcut QMONTH #1 mL 08/04/24 10/06/24 subcutaneous pen injector (Emgality Pen) rimegepant 75 mg disintegrating 75 mg PO ONCE PRN migraine 08/04/24 10/06/24 tablet (Nurtec ODT) headache #8 tabs sumatriptan succinate 100 mg tablet See Rx Instructions PO .COMPLEX #9 08/04/24 10/06/24 tabs fluoxetine 10 mg capsule See Rx Instructions PO .COMPLEX 09/24/24 10/06/24 fluoxetine 40 mg capsule 40 mg PO DAILY 09/24/24 10/06/24 metformin 500 mg tablet 500 mg PO BID 09/24/24 10/06/24 Previous Rx's ?Medication ?Instructions ?Recorded albuterol sulfate 90 mcg/actuation 2 inh inhalation Q6H PRN shortness 12/15/20 breath activated powder inhaler of breath or wheezing #1 ea galcanezumab-gnlm 120 mg/mL 120 mg subcut QMONTH #1 mL 08/04/24 subcutaneous pen injector (Emgality Pen) rimegepant 75 mg disintegrating 75 mg PO ONCE PRN migraine 08/04/24 tablet (Nurtec ODT) headache #8 tabs sumatriptan succinate 100 mg tablet See Rx Instructions PO .COMPLEX #9 08/04/24 tabs Allergies Allergy/AdvReac Type Severity Reaction Status Date / Time buspirone Allergy Other (See Verified 10/06/24 10:31 Comment) paliperidone Allergy Other (See Verified 10/06/24 10:31 Comment) paroxetine HCl (From Paxil) Allergy Other (See Verified 10/06/24 10:31 Comment) sertraline Allergy Other (See Verified 10/06/24 10:31 Comment) ziprasidone (From Geodon) Allergy Other (See Verified 10/06/24 10:31 Comment) aripiprazole (From Abilify) AdvReac Intermediate INVOLUNTARY Verified 10/06/24 10:31 MUSCLE MOVEMENTS mirtazapine AdvReac Intermediate INVOLUNTARY Verified 10/06/24 10:31 MUSCLE MOVEMENTS risperidone AdvReac Intermediate INVOLUNTARY Verified 10/06/24 10:31 MUSCLE MOVEMENTS enviornmental Allergy Mild Wheezing Uncoded 10/06/24 10:31 General Stated Complaint: Chest Pain CARLOS: 3 Exam Narrative Exam Narrative: 1.Const: Well-nourished, Well-developed, appearing stated age 2.Eyes: PERRL, no conjunctival injection, and symmetrical lids. 3.ENT: Atraumatic external nose and ears. Moist MM. Neck: Symmetric, trachea midline, No thyromegaly. 4.CVS: +S1/S2, Peripheral pulses 2+ and equal in all extremities. Brisk capillary refill in all extremities. 5.RESP: Unlabored respiratory effort. Clear to auscultation bilaterally. No wheezes rales or rhonchi 6.GI: Soft, Nontender/Nondistended, No hepatosplenomegaly. No guarding or rebound. 7.MSK: Normocephalic/Atraumatic, Extremities w/o deformity or ttp No cyanosis or clubbing, Normal movement of all extremities 8.Skin: Warm, Dry. No rashes or lesions. 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 Sensation grossly intact, no focal neurologic deficits. 10.Psych: (AAO) x3. Appropriate mood and affect Course Vital Signs Vital signs: Vital Signs Pulse 66 10/06/24 10:01 Respiratory Rate 15 10/06/24 10:01 Blood Pressure 175/79 H 10/06/24 10:01 Pulse Oximetry 99 10/06/24 10:01 Pulse 66 10/06/24 10:01 Respiratory Rate 20 10/06/24 10:04 Respiratory Effort Normal 10/06/24 10:04 Respiratory Depth Normal 10/06/24 10:04 Respiratory Pattern Normal 10/06/24 10:04 Blood Pressure 175/79 H 10/06/24 10:01 Blood Pressure Position Sitting 10/06/24 10:01 Pulse Oximetry 99 10/06/24 10:01 Oxygen Delivery Method Room Air 10/06/24 10:01 Oxygen Flow Rate 0 10/06/24 10:01 Pain Level 8 10/06/24 10:04 Medical Decision Making This is a 59-year-old male with a past medical history of anxiety, depression, type 2 diabetes, high cholesterol, obesity, schizoaffective disorder, hypothyroidism, chronic headaches who presents today for chest discomfort. Patient was just here about 2 hours ago. He had a notably thorough and appropriate workup by my colleague which included a CTA of his chest, abdomen, and pelvis which was negative for any acute process, including dissection or PE. There was a large burden of stool present but no other abnormalities. Cardiac workup including EKG were stable and benign. Troponins were normal. Patient went home, had continued to mild epigastric and chest achiness which is chronic and not acute. He then elected to call EMS and was brought back in for reevaluation. He denies any severe tearing or ripping sensation. No pleuritic chest pain. No severe crushing pain. No vomiting or diarrhea. No other complaints at this time. Physical exam demonstrates a very well-appearing male, no acute tenderness or vital sign abnormalities. EKG demonstrates no signs of STEMI or concerning abnormality. Patient is notably hemodynamically stable, signs and symptoms are notably clinically inconsistent with ACS, dissection, PE. I suspect he has some mild gastric irritation, secondary to his significant nicotine use, and dietary choices. We will give Geoff GI cocktail monitor closely and reassess. 11:14 AM After GI cocktail patient has complete resolution of his symptoms, he feels well and would like to go home. Patient will be discharged. Recommend continued use of Tums at home. I have extensively reviewed the treatment plan and discharge instructions with the patient. I have addressed all patient concerns at this time. The patient was made aware of what symptoms to monitor for that would warrant a return to the emergency department. Discussed the plan with the patient, they demonstrate verbal understanding and agreement with our assessment and plan at this time. The documentation in this chart was dictated using [employer] dictation software. Please excuse any dictation errors. Quality:SDOH Health Related Social Needs: Health related social needs food insecurity(Z59.41) PFSH All Active Problems (Updated 10/06/24 @ 11:15 by Froilan Iraheta DO) Stomach discomfort (Acute) Chest pain (Acute) Nausea (Acute) Headache (Acute) Knee pain (Acute) Dental caries (Acute) Nicotine dependence (Acute) Dyspnea on exertion (Acute) Shortness of breath (Acute) Hypercholesterolemia (Chronic 09/07/14) pt insists on lipitor 80 mg due to family hx Depression (Acute 10/02/14) Left-sided chest wall pain (Acute) Chest pain (Acute) Chronic headache (Acute) Migraine headache without aura (Acute) Migraine (Chronic) Poor dentition (Acute) Tobacco use disorder (Chronic) started 2013 1.5 ppd, pipe 1-7/week, QUIT LATE OCT 2021 Allergic rhinitis (Chronic) lortadine Hiatal hernia (Chronic) protonix not effective, nexium works better 02/12/18 Anemia (Chronic) Broken teeth (Chronic) Drug-seeking behavior (Chronic ~09/20/21) Requests Ritalin from providers Medication overuse headache (Acute) Medical History Obesity BMI 52 Hypertension pt requests brand name Tenormin vs atenolol 04/02/18 GERD (gastroesophageal reflux disease) (09/07/14) Diabetes mellitus type 2 in obese (09/09/14) Hypothyroidism (acquired) (09/07/14) Schizoaffective disorder (09/07/14) FREDDIE Thakkar 09/2014- [facility] inpatient Trigeminal neuralgia Anxiety Mitral valve prolapse Hyperlipidemia Peripheral neuropathy Surgical History No significant past surgical history Family History Father Heart disease [place] Social History Smoking/Tobacco Use Status: Former Tobacco Use Smoking risk assessment performed?: Yes Alcohol Intake: never Drug use: Never Substance use type: does not use Adopted: No Caregiver/Support person: No Foster care: No Household members: none Housing: apartment Number of Children: 2 number of grandchildren: 1 Communication Needs: Corrective Lenses Education Level: college Do you need help understanding health information?: Always current occupation: Unemployed/Leave of absence Sexually active: No Do you think of yourself as: Decline to provide Current gender identity: male What type of physical activity do you participate in: other Details: weight lifting Frequency: 3-4 times per week Magalie/Latter-Day: Roman Catholic Seatbelt use: always Drive intox or ride w/intox furniture 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
[2024-10-06 11:24] VITALS: BP 133/78; PULSE 64; RESP 20; O2SAT 95
== END 2024-10-06 11:24 | disposition home or self-care (01) ==
PROVIDERS: Emergency Provider Student in an Organized Health Care Education/Training Program; PCP Family Medicine
DX: R07.9 Chest pain, unspecified (principal); R06.02 Shortness of breath; F32.9 Major depressive disorder, single episode, unspecified; E78.00 Pure hypercholesterolemia, unspecified; F41.9 Anxiety disorder, unspecified; E11.9 Type 2 diabetes mellitus without complications; E66.9 Obesity, unspecified; E03.9 Hypothyroidism, unspecified; F20.9 Schizophrenia, unspecified; I10 Essential (primary) hypertension; Z59.41 Food insecurity; Z87.891 Personal history of nicotine dependence
CPT/HCPCS: 93005; 99283; 93010

== ENCOUNTER 2024-10-10 06:56 | Emergency (ER) | payer MEDICAID, SELFPAY ==
[2024-10-10] VITALS (8 sets, daily range): BP systolic 142–146; BP diastolic 62–95; PULSE 68–75; RESP 16–18; TEMP 36.3–36.7; O2SAT 95–98
--- NOTE | 2024-10-10 06:45 | RT.EKG_ITS ---
APPROVED REPORT Exam: Resting ECG Reason for Exam: chest pain Patient Location: E HR:68 bpm ECG Measurements Heart Rate 68 AXIS VT 188 P 49 QRSd 97 QRS 14 QT 407 T 57 QTc 434 Conclusion Sinus rhythm 68 normal axis no stemi
[2024-10-10] MEDS: Mylanta Suspension 30 ML CUP PO (07:26)
--- NOTE | 2024-10-10 08:05 | W.ED.GENAD ---
Discharge Plan Disposition Patient Disposition: Home Discharge Details Clinical Impression: Chest pain Primary Care Provider: Brandon Foster ED Provider: Elvin Espana Home Meds and New Rx's Prescriptions: No Action gabapentin 300 mg capsule 300 mg PO QID bupropion HCl 75 mg tablet 150 mg PO DAILY Rx Instructions: administer 6 hours apart sumatriptan succinate 100 mg tablet See Rx Instructions PO .COMPLEX Qty: 9 5RF Rx Instructions: take 1 tab at onset of headache; if no relief, may repeat 1 tab after at least 2 hrs; max = 2 tabs/24 hrs PO Nurtec ODT 75 mg tablet,disintegrating 75 mg PO ONCE PRN (Reason: migraine headache) Qty: 8 5RF Rx Instructions: as a single dose; no more than 1 tab per day Emgality Pen 120 mg/mL pen injector 120 mg subcut QMONTH Qty: 1 11RF Claritin Liqui-Gel 10 MG capsule 1 cap PO DAILY Qty: 90 metformin 500 mg tablet 500 mg PO BID fluoxetine 10 mg capsule See Rx Instructions PO .COMPLEX Rx Instructions: 5 mg orally AM; 10 mg afaternoon, 20 mg HS per PCP list 09/24/24 fluoxetine 40 mg capsule 80 mg PO DAILY multivitamin Tablet 1 tab PO DAILY clonazepam 0.5 mg tablet See Rx Instructions .ROUTE .COMPLEX Rx Instructions: 1 tab in AM, 1 tab at Noon and 2 tab QHS simvastatin 80 mg tablet 80 mg PO DAILY Patient Comments: Take 1 tablet by mouth once a day ondansetron HCl 4 mg tablet 4 mg PO Q8H PRN Patient Comments: Take 1 tablet by mouth every eight hours as needed as directed benztropine 0.5 MG tablet 0.5 mg PO BID aspirin,buffd-calcium carb-mag 325 MG tablet 325 mg PO DAILY lactulose 10 gram/15 mL solution 20 g PO DIRECTED PRN Patient Comments: TAKE ONE TO TWO TABLESPOONS BY MOUTH NEEDED WHEN 3 DAYS PASS WITHOUT BOWEL MOVEMENT albuterol sulfate 90 mcg/actuation aerosol powdr breath activated 2 inh IH Q6H PRN (Reason: shortness of breath or wheezing) Qty: 1 0RF atenolol 25 mg tablet 75 mg PO DAILY Patient Comments: Take 3 tablet by mouth once a day Invega Sustenna 117 mg/0.75 mL syringe 117 mg IM Q30D divalproex [Depakote ER] 500 mg tablet extended release 24 hr 500 mg PO BID omeprazole 40 mg capsule,delayed release(DR/EC) 40 mg PO DAILY Patient Comments: TAKE 1 CAPSULE BY MOUTH DAILY FOR HEARTBURN Discharge Instructions Additional Instructions: EKG is unchanged today. You have had extensive workup for your chest pain this week At home you should not take more than 325 mg aspirin daily Please follow-up with your PCP and care teams to evaluate ongoing symptoms HPI General Date/Time Provider Initiated Documentation: 10/10/24 07:09. Limitations to Documentation: no limitations. Information obtained by: patient and EMS. HPI Narrative: 59-year-old gentleman with past medical history of depression anxiety, schizoaffective disorder, presents for evaluation of chest pain. Patient has been seen in the emergency department several times this week for similar pain and has had extensive workup. He reports about 20 minutes of pain. Says that it is left-sided and goes into his armpit. Not associated with shortness of breath. Similar to prior pains in the past. No medications tried prior to arrival. Related Data Home Medications ?Medication ?Instructions ?Recorded ?Confirmed loratadine 10 mg capsule (Claritin 1 cap PO DAILY #90 tabs 12/16/14 10/10/24 Liqui-Gel) aspirin,buffered (calcium 325 mg PO DAILY 11/18/16 10/10/24 carbonate-magnesium) 325 mg tablet benztropine 0.5 mg tablet 0.5 mg PO BID 11/18/16 10/10/24 lactulose 10 gram/15 mL oral 20 g PO DIRECTED PRN 10/03/20 10/10/24 solution albuterol sulfate 90 mcg/actuation 2 inh inhalation Q6H PRN shortness 12/15/20 10/10/24 breath activated powder inhaler of breath or wheezing #1 ea multivitamin 1 tab PO DAILY 01/26/21 10/10/24 clonazepam 0.5 mg tablet See Rx Instructions .Route .COMPLEX 03/04/23 10/10/24 gabapentin 300 mg capsule 300 mg PO QID 03/27/23 10/10/24 atenolol 25 mg tablet 75 mg PO DAILY 01/31/24 10/10/24 divalproex 500 mg tablet,extended 500 mg PO BID 01/31/24 10/10/24 release 24 hr (Depakote ER) omeprazole 40 mg capsule,delayed 40 mg PO DAILY 01/31/24 10/10/24 release paliperidone palmitate 117 mg/0.75 117 mg IM Q30D 01/31/24 10/10/24 mL intramuscular syringe (Invega Sustenna) simvastatin 80 mg tablet 80 mg PO DAILY 03/08/24 10/10/24 ondansetron HCl 4 mg tablet 4 mg PO Q8H PRN 07/22/24 10/10/24 bupropion HCl 75 mg tablet 150 mg PO DAILY 08/04/24 10/10/24 galcanezumab-gnlm 120 mg/mL 120 mg subcut QMONTH #1 mL 08/04/24 10/10/24 subcutaneous pen injector (Emgality Pen) rimegepant 75 mg disintegrating 75 mg PO ONCE PRN migraine 08/04/24 10/10/24 tablet (Nurtec ODT) headache #8 tabs sumatriptan succinate 100 mg tablet See Rx Instructions PO .COMPLEX #9 08/04/24 10/10/24 tabs fluoxetine 10 mg capsule See Rx Instructions PO .COMPLEX 09/24/24 10/10/24 fluoxetine 40 mg capsule 80 mg PO DAILY 09/24/24 10/10/24 metformin 500 mg tablet 500 mg PO BID 09/24/24 10/10/24 Previous Rx's ?Medication ?Instructions ?Recorded albuterol sulfate 90 mcg/actuation 2 inh inhalation Q6H PRN shortness 12/15/20 breath activated powder inhaler of breath or wheezing #1 ea galcanezumab-gnlm 120 mg/mL 120 mg subcut QMONTH #1 mL 08/04/24 subcutaneous pen injector (Emgality Pen) rimegepant 75 mg disintegrating 75 mg PO ONCE PRN migraine 08/04/24 tablet (Nurtec ODT) headache #8 tabs sumatriptan succinate 100 mg tablet See Rx Instructions PO .COMPLEX #9 08/04/24 tabs Allergies Allergy/AdvReac Type Severity Reaction Status Date / Time buspirone Allergy Other (See Verified 10/10/24 07:06 Comment) paliperidone Allergy Other (See Verified 10/10/24 07:06 Comment) paroxetine HCl (From Paxil) Allergy Other (See Verified 10/10/24 07:06 Comment) sertraline Allergy Other (See Verified 10/10/24 07:06 Comment) ziprasidone (From Geodon) Allergy Other (See Verified 10/10/24 07:06 Comment) aripiprazole (From Abilify) AdvReac Intermediate INVOLUNTARY Verified 10/10/24 07:06 MUSCLE MOVEMENTS mirtazapine AdvReac Intermediate INVOLUNTARY Verified 10/10/24 07:06 MUSCLE MOVEMENTS risperidone AdvReac Intermediate INVOLUNTARY Verified 10/10/24 07:06 MUSCLE MOVEMENTS enviornmental Allergy Mild Wheezing Uncoded 10/10/24 07:06 General Stated Complaint: Chest Pain CARLOS: 2 Exam Narrative Exam Narrative: Review of Systems: All systems reviewed & are unremarkable except as noted in HPI and below Obese, no acute distress NCAT RRR no murmur Reproducible chest pain Unlabored respiratory effort clear bilaterally Nondistended abdomen nontender Extremities w/o edema Course Vital Signs Vital signs: Vital Signs Temperature 36.3 C L 10/10/24 06:55 Pulse 70 10/10/24 06:55 Respiratory Rate 18 10/10/24 06:55 Blood Pressure 146/95 H 10/10/24 06:55 Pulse Oximetry 97 10/10/24 06:55 Temperature 36.7 C 10/10/24 08:04 Temperature Source Tympanic 10/10/24 08:04 Pulse 68 10/10/24 08:04 Respiratory Rate 16 10/10/24 08:04 Respiratory Effort Normal, Non-Labored 10/10/24 07:29 Respiratory Depth Normal 10/10/24 07:29 Respiratory Pattern Normal 10/10/24 07:29 Blood Pressure 142/62 H 10/10/24 08:04 Blood Pressure Mean 112 10/10/24 07:16 Blood Pressure Position Sitting 10/10/24 06:55 Pulse Oximetry 97 10/10/24 08:04 Oxygen Delivery Method Room Air 10/10/24 08:04 Oxygen Flow Rate 0 10/10/24 08:04 Pain Level 7 10/10/24 06:55 Comment states he took 3 tabs of 325 mg aspirin after pain started 10/10/24 06:55 Medical Decision Making Emergent evaluation of chest pain. Patient has had extensive workup this week regarding his chronic chest pain. His EKG was obtained and independently interpreted: Sinus 68 normal axis no acute ischemic changes, no change from prior. At his last visit he was given GI medication which resolved his symptoms. I have a low suspicion for any acute ACS, heart failure, hypertensive emergency. Will give a dose of Maalox and reassess prior to initiating any further workup. After a dose of medication, the patient reports resolution in his symptoms. Advised that he can take this at home. Recommend close follow-up with his primary team for any ongoing treatment. Quality:SDOH Health Related Social Needs: Health related social needs food insecurity(Z59.41) PFSH All Active Problems (Updated 10/10/24 @ 08:04 by Elvin Espana MD) Chest pain (Acute) Stomach discomfort (Acute) Chest pain (Acute) Nausea (Acute) Headache (Acute) Knee pain (Acute) Dental caries (Acute) Nicotine dependence (Acute) Dyspnea on exertion (Acute) Shortness of breath (Acute) Hypercholesterolemia (Chronic 09/07/14) pt insists on lipitor 80 mg due to family hx Depression (Acute 10/02/14) Left-sided chest wall pain (Acute) Chest pain (Acute) Chronic headache (Acute) Migraine headache without aura (Acute) Migraine (Chronic) Poor dentition (Acute) Tobacco use disorder (Chronic) started 2013 1.5 ppd, pipe 1-7/week, QUIT LATE OCT 2021 Allergic rhinitis (Chronic) lortadine Hiatal hernia (Chronic) protonix not effective, nexium works better 02/12/18 Anemia (Chronic) Broken teeth (Chronic) Drug-seeking behavior (Chronic ~09/20/21) Requests Ritalin from providers Medication overuse headache (Acute) Medical History Obesity BMI 52 Hypertension pt requests brand name Tenormin vs atenolol 04/02/18 GERD (gastroesophageal reflux disease) (09/07/14) Diabetes mellitus type 2 in obese (09/09/14) Hypothyroidism (acquired) (09/07/14) Schizoaffective disorder (09/07/14) FREDDIE Thakkar 09/2014- COUNTS INCLUDE 234 BEDS AT THE [facility] inpatient Trigeminal neuralgia Anxiety Mitral valve prolapse Hyperlipidemia Peripheral neuropathy Surgical History No significant past surgical history Family History Father Heart disease [place] Social History Smoking/Tobacco Use Status: Former Tobacco Use Smoking risk assessment performed?: Yes Alcohol Intake: never Drug use: Never Substance use type: does not use Adopted: No Caregiver/Support person: No Foster care: No Household members: none Housing: apartment Number of Children: 2 number of grandchildren: 1 Communication Needs: Corrective Lenses Education Level: college Do you need help understanding health information?: Always current occupation: Unemployed/Leave of absence Sexually active: No Do you think of yourself as: Decline to provide Current gender identity: male What type of physical activity do you participate in: other Details: weight lifting Frequency: 3-4 times per week 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
== END 2024-10-10 08:11 | disposition home or self-care (01) ==
PROVIDERS: Emergency Provider Emergency Medicine; PCP Family Medicine
DX: R07.89 Other chest pain (principal); F32.A Depression, unspecified; F41.9 Anxiety disorder, unspecified; F25.9 Schizoaffective disorder, unspecified
CPT/HCPCS: 93005; 99283; 93010

== ENCOUNTER 2024-10-12 14:12 | Emergency (ER) | payer MEDICAID, SELFPAY ==
[2024-10-12 14:19] VITALS: BP 175/96; PULSE 89; RESP 18; TEMP 36.4; O2SAT 98
[2024-10-12] MEDS: Diph,Pertuss(Acell),Tet Vac/Pf 0.5 ML SYR IM (14:27)
[2024-10-12] MEDS: Lidocaine 1% Pres-Free 5 ML VIAL (14:30)
--- NOTE | 2024-10-12 14:52 | ED.GENADUL_ITS ---
Discharge Plan Disposition Patient Disposition: Home Condition: Stable Discharge Details Clinical Impression: Laceration of hand Primary Care Provider: Brandon Foster ED Provider: Katarzyna Jennings Home Meds and New Rx's Prescriptions: No Action gabapentin 300 mg capsule 300 mg PO QID bupropion HCl 75 mg tablet 150 mg PO DAILY Rx Instructions: administer 6 hours apart sumatriptan succinate 100 mg tablet See Rx Instructions PO .COMPLEX Qty: 9 5RF Rx Instructions: take 1 tab at onset of headache; if no relief, may repeat 1 tab after at least 2 hrs; max = 2 tabs/24 hrs PO Nurtec ODT 75 mg tablet,disintegrating 75 mg PO ONCE PRN (Reason: migraine headache) Qty: 8 5RF Rx Instructions: as a single dose; no more than 1 tab per day Emgality Pen 120 mg/mL pen injector 120 mg subcut QMONTH Qty: 1 11RF Claritin Liqui-Gel 10 MG capsule 1 cap PO DAILY Qty: 90 metformin 500 mg tablet 500 mg PO BID fluoxetine 10 mg capsule See Rx Instructions PO .COMPLEX Rx Instructions: 5 mg orally AM; 10 mg afaternoon, 20 mg HS per PCP list 09/24/24 fluoxetine 40 mg capsule 80 mg PO DAILY multivitamin Tablet 1 tab PO DAILY clonazepam 0.5 mg tablet See Rx Instructions .ROUTE .COMPLEX Rx Instructions: 1 tab in AM, 1 tab at Noon and 2 tab QHS simvastatin 80 mg tablet 80 mg PO DAILY Patient Comments: Take 1 tablet by mouth once a day ondansetron HCl 4 mg tablet 4 mg PO Q8H PRN Patient Comments: Take 1 tablet by mouth every eight hours as needed as directed benztropine 0.5 MG tablet 0.5 mg PO BID aspirin,buffd-calcium carb-mag 325 MG tablet 325 mg PO DAILY lactulose 10 gram/15 mL solution 20 g PO DIRECTED PRN Patient Comments: TAKE ONE TO TWO TABLESPOONS BY MOUTH NEEDED WHEN 3 DAYS PASS WITHOUT BOWEL MOVEMENT albuterol sulfate 90 mcg/actuation aerosol powdr breath activated 2 inh IH Q6H PRN (Reason: shortness of breath or wheezing) Qty: 1 0RF atenolol 25 mg tablet 75 mg PO DAILY Patient Comments: Take 3 tablet by mouth once a day Invega Sustenna 117 mg/0.75 mL syringe 117 mg IM Q30D divalproex [Depakote ER] 500 mg tablet extended release 24 hr 500 mg PO BID omeprazole 40 mg capsule,delayed release(DR/EC) 40 mg PO DAILY Patient Comments: TAKE 1 CAPSULE BY MOUTH DAILY FOR HEARTBURN Discharge Instructions Instructions: Laceration Repair With Stitches ED Additional Instructions: You were seen in the emergency department today for evaluation of a laceration to your hand and had stitches placed. You also received a tetanus booster. The stitches need to come out in 7 to 10 days, keep the area clean and dry and use antibiotic ointment and a bandage. Stitches can come out at the emergency department or with your primary care provider. Thank you for allowing us to be part of your care. HPI General Mode of arrival: EMS . Date/Time Provider Initiated Documentation: 10/12/24 14:16 . Limitations to Documentation: no limitations . Information obtained by: patient and old records reviewed . HPI Narrative: HPI: This is a 59-year-old male patient with a past medical history significant for high cholesterol, depression, migraine, presenting for evaluation of a hand laceration. The patient is right-hand dominant, was attempting to open a box with scissors when the blade slipped and sliced along the side of his index finger just lateral to the MCP. The patient states that this is an isolated injury, he was in his normal state of health before this occurred, and that he did not injure any other part of his body. He is not experiencing weakness, difficulty with motion, or numbness distal to the injury. Bleeding controlled with direct pressure, patient is not sure when his last tetanus vaccine was. Exam: Gen: Awake and alert, in no apparent distress HEENT: Non-icteric sclera Neck: Supple Lungs: No apparent respiratory distress, normal respiratory effort. CV: Appears well perfused Abdomen: Non-distended MSK: Moves 4 extremities without apparent limitation in ROM. The patient has full range of motion of the affected left index finger against resistance with isolation of superficial and deep flexor tendons. Preserved sensation, brisk capillary refill Skin: Visualized skin without rashes, cyanosis. The patient has a 1 and half centimeter laceration to the lateral aspect of the left index finger, hemostatic, without violation of the fascia or deep structures. Neuro: Normal Gait, no obvious focal deficits or facial asymmetry. Speaks in full, clear sentences. Psych: Appropriate for situation. MDM: This is a 59-year-old male patient presenting for evaluation of a laceration. Differentials include but are not limited to simple laceration, I certainly considered deep structural damage such as tendon injury, neurovascular injury, though these are less consistent with the patient's physical examination. I was able to explore the wound thoroughly under local anesthesia. There is no evidence of foreign body, the mechanism is not suggestive of fracture or dislocation, there is no evidence for infection. ED Course: The patient's last tetanus vaccine was over 10 years ago, and he was provided with a Tdap booster. Laceration was repaired as noted below, patient tolerated this procedure well. Dressing applied, and suture and wound care were detailed to the patient. At this time, the patient has had a full medical evaluation and is safe for discharge to home. They are hemodynamically stable, ambulatory, and tolerating PO. They are understanding of the follow-up plan and return precautions. They left our facility without incident. Katarzyna Jennings MD Related Data Home Medications ?Medication ?Instructions ?Recorded ?Confirmed loratadine 10 mg capsule (Claritin 1 cap PO DAILY #90 tabs 12/16/14 10/12/24 Liqui-Gel) aspirin,buffered (calcium 325 mg PO DAILY 11/18/16 10/12/24 carbonate-magnesium) 325 mg tablet benztropine 0.5 mg tablet 0.5 mg PO BID 11/18/16 10/12/24 lactulose 10 gram/15 mL oral 20 g PO DIRECTED PRN 10/03/20 10/12/24 solution albuterol sulfate 90 mcg/actuation 2 inh inhalation Q6H PRN shortness 12/15/20 10/12/24 breath activated powder inhaler of breath or wheezing #1 ea multivitamin 1 tab PO DAILY 01/26/21 10/12/24 clonazepam 0.5 mg tablet See Rx Instructions .Route .COMPLEX 03/04/23 10/12/24 gabapentin 300 mg capsule 300 mg PO QID 03/27/23 10/12/24 atenolol 25 mg tablet 75 mg PO DAILY 01/31/24 10/12/24 divalproex 500 mg tablet,extended 500 mg PO BID 01/31/24 10/12/24 release 24 hr (Depakote ER) omeprazole 40 mg capsule,delayed 40 mg PO DAILY 01/31/24 10/12/24 release paliperidone palmitate 117 mg/0.75 117 mg IM Q30D 01/31/24 10/12/24 mL intramuscular syringe (Invega Sustenna) simvastatin 80 mg tablet 80 mg PO DAILY 03/08/24 10/12/24 ondansetron HCl 4 mg tablet 4 mg PO Q8H PRN 07/22/24 10/12/24 bupropion HCl 75 mg tablet 150 mg PO DAILY 08/04/24 10/12/24 galcanezumab-gnlm 120 mg/mL 120 mg subcut QMONTH #1 mL 08/04/24 10/12/24 subcutaneous pen injector (Emgality Pen) rimegepant 75 mg disintegrating 75 mg PO ONCE PRN migraine 08/04/24 10/12/24 tablet (Nurtec ODT) headache #8 tabs sumatriptan succinate 100 mg tablet See Rx Instructions PO .COMPLEX #9 08/04/24 10/12/24 tabs fluoxetine 10 mg capsule See Rx Instructions PO .COMPLEX 09/24/24 10/12/24 fluoxetine 40 mg capsule 80 mg PO DAILY 09/24/24 10/12/24 metformin 500 mg tablet 500 mg PO BID 09/24/24 10/12/24 Previous Rx's ?Medication ?Instructions ?Recorded albuterol sulfate 90 mcg/actuation 2 inh inhalation Q6H PRN shortness 12/15/20 breath activated powder inhaler of breath or wheezing #1 ea galcanezumab-gnlm 120 mg/mL 120 mg subcut QMONTH #1 mL 08/04/24 subcutaneous pen injector (Emgality Pen) rimegepant 75 mg disintegrating 75 mg PO ONCE PRN migraine 08/04/24 tablet (Nurtec ODT) headache #8 tabs sumatriptan succinate 100 mg tablet See Rx Instructions PO .COMPLEX #9 08/04/24 tabs Allergies Allergy/AdvReac Type Severity Reaction Status Date / Time buspirone Allergy Other (See Verified 10/12/24 14:22 Comment) paliperidone Allergy Other (See Verified 10/12/24 14:22 Comment) paroxetine HCl (From Paxil) Allergy Other (See Verified 10/12/24 14:22 Comment) sertraline Allergy Other (See Verified 10/12/24 14:22 Comment) ziprasidone (From Geodon) Allergy Other (See Verified 10/12/24 14:22 Comment) aripiprazole (From Abilify) AdvReac Intermediate INVOLUNTARY Verified 10/12/24 14:22 MUSCLE MOVEMENTS mirtazapine AdvReac Intermediate INVOLUNTARY Verified 10/12/24 14:22 MUSCLE MOVEMENTS risperidone AdvReac Intermediate INVOLUNTARY Verified 10/12/24 14:22 MUSCLE MOVEMENTS enviornmental Allergy Mild Wheezing Uncoded 10/12/24 14:22 General Stated Complaint: Laceration CARLOS: 4 Course Vital Signs Vital signs: Vital Signs Temperature 36.4 C L 10/12/24 14:19 Pulse 89 10/12/24 14:19 Respiratory Rate 18 10/12/24 14:19 Blood Pressure 175/96 H 10/12/24 14:19 Pulse Oximetry 98 10/12/24 14:19 Temperature 36.4 C L 10/12/24 14:19 Temperature Source Oral 10/12/24 14:19 Pulse 89 10/12/24 14:19 Respiratory Rate 18 10/12/24 14:19 Respiratory Effort Normal, Non-Labored 10/12/24 14:23 Blood Pressure 175/96 H 10/12/24 14:19 Blood Pressure Position Sitting 10/12/24 14:19 Pulse Oximetry 98 10/12/24 14:19 Oxygen Delivery Method Room Air 10/12/24 14:19 Oxygen Flow Rate 0 10/12/24 14:19 Procedures Laceration Laceration 1: Site: hand Side (If applicable): left Size (cm): 1.5 Description: linear Depth: simple, single layer Local anesthetic: Lidocaine 1% Amount of anesthesia used (mL): 2 Pre-repair: wound explored, irrigated extensively and deep structures intact Skin layer closed with: other (ethilon) Size (cm): 5-0 Number of sutures: 4 Technique: simple, interrupted Medical Decision Making Quality:SDOH Health Related Social Needs: Health related social needs food insecurity(Z59.41) PFSH All Active Problems (Updated 10/12/24 @ 14:53 by Katarzyna Jennings MD) Laceration of hand (Acute) Chest pain (Acute) Stomach discomfort (Acute) Chest pain (Acute) Nausea (Acute) Headache (Acute) Knee pain (Acute) Dental caries (Acute) Nicotine dependence (Acute) Dyspnea on exertion (Acute) Shortness of breath (Acute) Hypercholesterolemia (Chronic 09/07/14) pt insists on lipitor 80 mg due to family hx Depression (Acute 10/02/14) Left-sided chest wall pain (Acute) Chest pain (Acute) Chronic headache (Acute) Migraine headache without aura (Acute) Migraine (Chronic) Poor dentition (Acute) Tobacco use disorder (Chronic) started 2013 1.5 ppd, pipe 1-7/week, QUIT LATE OCT 2021 Allergic rhinitis (Chronic) lortadine Hiatal hernia (Chronic) protonix not effective, nexium works better 02/12/18 Anemia (Chronic) Broken teeth (Chronic) Drug-seeking behavior (Chronic ~09/20/21) Requests Ritalin from providers Medication overuse headache (Acute) Medical History Obesity BMI 52 Hypertension pt requests brand name Tenormin vs atenolol 04/02/18 GERD (gastroesophageal reflux disease) (09/07/14) Diabetes mellitus type 2 in obese (09/09/14) Hypothyroidism (acquired) (09/07/14) Schizoaffective disorder (09/07/14) Rebekah Mariscal [facility] 09/2014- ON LICENSE OF [facility] inpatient Trigeminal neuralgia Anxiety Mitral valve prolapse Hyperlipidemia Peripheral neuropathy Surgical History No significant past surgical history Family History Father Heart disease [place] Social History Smoking/Tobacco Use Status: Former Tobacco Use Smoking risk assessment performed?: Yes Alcohol Intake: never Drug use: Never Substance use type: does not use Adopted: No Caregiver/Support person: No Foster care: No Household members: none Housing: apartment Number of Children: 2 number of grandchildren: 1 Communication Needs: Corrective Lenses Education Level: college Do you need help understanding health information?: Always current occupation: Unemployed/Leave of absence Sexually active: No Do you think of yourself as: Decline to provide Current gender identity: male What type of physical activity do you participate in: other Details: weight lifting Frequency: 3-4 times per week Magalie/Orthodox: [employer]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
== END 2024-10-12 15:11 | disposition home or self-care (01) ==
PROVIDERS: Emergency Provider Emergency Medicine; PCP Family Medicine
DX: S61.211A Laceration without foreign body of left index finger without damage to nail, initial encounter (principal); W26.8XXA Contact with other sharp object(s), not elsewhere classified, initial encounter; Z23 Encounter for immunization
CPT/HCPCS: 12001; 90471; 90715; 99284; 99283; J2003

== ENCOUNTER 2024-10-15 08:43 | Outpatient (CLI) | payer MEDICAID, SELFPAY | END 2024-10-15 08:44 | disposition home or self-care (01) | LOC: DI.CARD 08:44 | PROVIDERS: PCP Family Medicine; Visit Provider Registered Nurse | CPT/HCPCS: 93010 ==

== ENCOUNTER 2024-11-09 09:50 | Emergency (ER) | payer MEDICAID, SELFPAY ==
[2024-11-09] VITALS (40 sets, daily range): BP systolic 147–183; BP diastolic 70–140; PULSE 63–69; RESP 11–18; TEMP 36–36.1; O2SAT 85–100
--- NOTE | 2024-11-09 09:45 | RT.EKG_ITS ---
APPROVED REPORT Exam: Resting ECG Reason for Exam: chest pain Patient Location: E HR:67 bpm ECG Measurements Heart Rate 67 AXIS IL 197 P 41 QRSd 111 QRS 10 QT 427 T 104 QTc 451 Conclusion Sinus rhythm...normal P axis, V-rate 60- 99 I have reviewed and interpreted ECG and agree with software generated interpretation.
--- NOTE | 2024-11-09 10:21 | W.ED.GENAD ---
Discharge Plan Disposition Patient Disposition: Home Condition: Stable Discharge Details Clinical Impression: Chest pain of uncertain etiology Primary Care Provider: Brandon Foster ED Provider: Froilan Ordonez Home Meds and New Rx's Prescriptions: New azithromycin 250 mg tablet See Rx Instructions .ROUTE .COMPLEX Qty: 6 0RF Rx Instructions: For 250 mg dose pack: take 500 mg today (day 1), then 250 mg for 4 days (days 2-5) Continued gabapentin 300 mg capsule 300 mg PO QID bupropion HCl 75 mg tablet 150 mg PO DAILY Rx Instructions: administer 6 hours apart sumatriptan succinate 100 mg tablet See Rx Instructions PO .COMPLEX Qty: 9 5RF Rx Instructions: take 1 tab at onset of headache; if no relief, may repeat 1 tab after at least 2 hrs; max = 2 tabs/24 hrs PO Nurtec ODT 75 mg tablet,disintegrating 75 mg PO ONCE PRN (Reason: migraine headache) Qty: 8 5RF Rx Instructions: as a single dose; no more than 1 tab per day Emgality Pen 120 mg/mL pen injector 120 mg subcut QMONTH Qty: 1 11RF Claritin Liqui-Gel 10 MG capsule 1 cap PO DAILY Qty: 90 metformin 500 mg tablet 500 mg PO BID fluoxetine 10 mg capsule See Rx Instructions PO .COMPLEX Rx Instructions: 5 mg orally AM; 10 mg afaternoon, 20 mg HS per PCP list 09/24/24 fluoxetine 40 mg capsule 80 mg PO DAILY multivitamin Tablet 1 tab PO DAILY clonazepam 0.5 mg tablet See Rx Instructions .ROUTE .COMPLEX Rx Instructions: 1 tab in AM, 1 tab at Noon and 2 tab QHS simvastatin 80 mg tablet 80 mg PO DAILY Patient Comments: Take 1 tablet by mouth once a day ondansetron HCl 4 mg tablet 4 mg PO Q8H PRN Patient Comments: Take 1 tablet by mouth every eight hours as needed as directed benztropine 0.5 MG tablet 0.5 mg PO BID aspirin,buffd-calcium carb-mag 325 MG tablet 325 mg PO DAILY lactulose 10 gram/15 mL solution 20 g PO DIRECTED PRN Patient Comments: TAKE ONE TO TWO TABLESPOONS BY MOUTH NEEDED WHEN 3 DAYS PASS WITHOUT BOWEL MOVEMENT albuterol sulfate 90 mcg/actuation aerosol powdr breath activated 2 inh IH Q6H PRN (Reason: shortness of breath or wheezing) Qty: 1 0RF atenolol 25 mg tablet 75 mg PO DAILY Patient Comments: Take 3 tablet by mouth once a day Invega Sustenna 117 mg/0.75 mL syringe 117 mg IM Q30D divalproex [Depakote ER] 500 mg tablet extended release 24 hr 500 mg PO BID omeprazole 40 mg capsule,delayed release(DR/EC) 40 mg PO DAILY Patient Comments: TAKE 1 CAPSULE BY MOUTH DAILY FOR HEARTBURN Discharge Instructions Instructions: Azithromycin (Systemic), Ondansetron, Chest Pain, Adult ED Additional Instructions: You were seen in the emergency department for your chest pain of uncertain etiology, you have multiple negative troponin test we did rule out a blood clot in your lungs with a blood test called a D-dimer, your chest x-ray was read by 2 different radiologist 1 questions a small right lower lobe pneumonia, I am sending you a 5-day course of azithromycin but you can wait to fill it if you should choose as you do not have a significant cough at this time. He requested Zofran to go home with which was provided for you. Please do not hesitate to return for any increasing chest pain, shortness of breath, fevers, intractable nausea or vomiting or any other emergent concerns. Referrals: Brandon Foster [Primary Care Provider] - Discharge Data Discharge Date/Time-TO BE ENTERED AT DEPARTURE: 11/09/24 15:02 HPI General Date/Time Provider Initiated Documentation: 11/09/24 10:09. HPI Narrative: 59 year-old male presents to ED today by EMS with a chief complaint of chest pain, L sided squeezing with onset 25 minutes prior to arrival. Quality described as squeezing, no radiation to shortness of breath, near syncope, abdominal pain, URI symptoms, patient endorses GERD, nausea. Severity is described as moderate/10. Palliating factors include given 324mg ASA by EMS. Provoking factors include nothing specific was at rest at onset. Events leading up to the incident/Associated Symptoms: Patient denies overt cardiac history, endorses mitral valve prolapse but no history of NE, endorses hiatal hernia. Patient not anticoagulated. Related Data Home Medications ?Medication ?Instructions ?Recorded ?Confirmed loratadine 10 mg capsule (Claritin 1 cap PO DAILY #90 tabs 12/16/14 11/09/24 Liqui-Gel) aspirin,buffered (calcium 325 mg PO DAILY 11/18/16 11/09/24 carbonate-magnesium) 325 mg tablet benztropine 0.5 mg tablet 0.5 mg PO BID 11/18/16 11/09/24 lactulose 10 gram/15 mL oral 20 g PO DIRECTED PRN 10/03/20 11/09/24 solution albuterol sulfate 90 mcg/actuation 2 inh inhalation Q6H PRN shortness 12/15/20 11/09/24 breath activated powder inhaler of breath or wheezing #1 ea multivitamin 1 tab PO DAILY 01/26/21 11/09/24 clonazepam 0.5 mg tablet See Rx Instructions .Route .COMPLEX 03/04/23 11/09/24 gabapentin 300 mg capsule 300 mg PO QID 03/27/23 11/09/24 atenolol 25 mg tablet 75 mg PO DAILY 01/31/24 11/09/24 divalproex 500 mg tablet,extended 500 mg PO BID 01/31/24 11/09/24 release 24 hr (Depakote ER) omeprazole 40 mg capsule,delayed 40 mg PO DAILY 01/31/24 11/09/24 release paliperidone palmitate 117 mg/0.75 117 mg IM Q30D 01/31/24 11/09/24 mL intramuscular syringe (Invega Sustenna) simvastatin 80 mg tablet 80 mg PO DAILY 03/08/24 11/09/24 ondansetron HCl 4 mg tablet 4 mg PO Q8H PRN 07/22/24 11/09/24 bupropion HCl 75 mg tablet 150 mg PO DAILY 08/04/24 11/09/24 galcanezumab-gnlm 120 mg/mL 120 mg subcut QMONTH #1 mL 08/04/24 11/09/24 subcutaneous pen injector (Emgality Pen) rimegepant 75 mg disintegrating 75 mg PO ONCE PRN migraine 08/04/24 11/09/24 tablet (Nurtec ODT) headache #8 tabs sumatriptan succinate 100 mg tablet See Rx Instructions PO .COMPLEX #9 08/04/24 11/09/24 tabs fluoxetine 10 mg capsule See Rx Instructions PO .COMPLEX 09/24/24 11/09/24 fluoxetine 40 mg capsule 80 mg PO DAILY 09/24/24 11/09/24 metformin 500 mg tablet 500 mg PO BID 09/24/24 11/09/24 azithromycin 250 mg tablet See Rx Instructions PO .COMPLEX #6 11/09/24 tabs Previous Rx's ?Medication ?Instructions ?Recorded albuterol sulfate 90 mcg/actuation 2 inh inhalation Q6H PRN shortness 12/15/20 breath activated powder inhaler of breath or wheezing #1 ea galcanezumab-gnlm 120 mg/mL 120 mg subcut QMONTH #1 mL 08/04/24 subcutaneous pen injector (Emgality Pen) rimegepant 75 mg disintegrating 75 mg PO ONCE PRN migraine 08/04/24 tablet (Nurtec ODT) headache #8 tabs sumatriptan succinate 100 mg tablet See Rx Instructions PO .COMPLEX #9 08/04/24 tabs azithromycin 250 mg tablet See Rx Instructions PO .COMPLEX #6 11/09/24 tabs Allergies Allergy/AdvReac Type Severity Reaction Status Date / Time buspirone Allergy Other (See Verified 11/09/24 10:33 Comment) paliperidone Allergy Other (See Verified 11/09/24 10:33 Comment) paroxetine HCl (From Paxil) Allergy Other (See Verified 11/09/24 10:33 Comment) sertraline Allergy Other (See Verified 11/09/24 10:33 Comment) ziprasidone (From Geodon) Allergy Other (See Verified 11/09/24 10:33 Comment) aripiprazole (From Abilify) AdvReac Intermediate INVOLUNTARY Verified 11/09/24 10:33 MUSCLE MOVEMENTS mirtazapine AdvReac Intermediate INVOLUNTARY Verified 11/09/24 10:33 MUSCLE MOVEMENTS risperidone AdvReac Intermediate INVOLUNTARY Verified 11/09/24 10:33 MUSCLE MOVEMENTS enviornmental Allergy Mild Wheezing Uncoded 11/09/24 10:33 General Stated Complaint: Chest Pain CARLOS: 3 Review of Systems All systems reviewed & are unremarkable except as noted in HPI and below Exam Narrative Exam Narrative: GENERAL APPEARANCE: Morbid obesity, non-toxic, awake and alert, atraumatic, no acute distress. SKIN: Warm, pink, dry, intact, without rashes/lesions/ulcerations. HEAD: Normocephalic, atraumatic, normal hair distribution for gender/age. EYES: Normal conjunctiva, no exudates on lids/lashes. ENT: Nares patent, no circumoral cyanosis, no facial swelling NECK: Supple, trachea midline, painless cervical ROM. LUNGS/CHEST: Lungs CTA bilaterally- no rhonchi/rales/wheezes diffusely, non-labored respirations, normal A/P diameter, symmetrical expansion, no chest wall deformity HEART (CV/PV): Regular rate and rhythm without murmur, no peripheral edema, no JVD. ABDOMEN: Soft, non-distended, no guarding, no epigastric tenderness, negative Poole's sign. MSK: Normal ROM, no swelling/deformity to bilateral UEs or LEs, moving all extremities without weakness, no cyanosis, spine midline without tenderness, normal curvature. NEURO: Mental Status AAOx4 - alert to person, place, time, events No facial droop, no forehead involvement. Motor: No focal weakness - strength 5/5 in bilateral UEs and LEs, proximal and distal, symmetric. Sensory: sensation intact to light touch globally. Gait normal: patient ambulated without ataxia in ED room. PSYCH: euthymic, cooperative, pleasant, appropriate speech Course Vital Signs Vital signs: Vital Signs Temperature 36.1 C L 11/09/24 09:53 Pulse 67 11/09/24 09:53 Respiratory Rate 18 11/09/24 09:53 Blood Pressure 155/76 H 11/09/24 09:53 Pulse Oximetry 97 11/09/24 09:53 Temperature 36.1 C L 11/09/24 09:53 Temperature Source Oral 11/09/24 09:53 Pulse 67 11/09/24 09:53 Respiratory Rate 18 11/09/24 10:06 Respiratory Effort Normal, Non-Labored 11/09/24 10:06 Respiratory Depth Normal 11/09/24 10:06 Respiratory Pattern Normal 11/09/24 10:06 Blood Pressure 155/76 H 11/09/24 09:53 Blood Pressure Position Sitting 11/09/24 09:53 Pulse Oximetry 97 11/09/24 09:53 Oxygen Delivery Method Room Air 11/09/24 09:53 Oxygen Flow Rate 0 11/09/24 09:53 Pain Level 7 11/09/24 10:06 Medical Decision Making This dictation utilizes [id number] dictation software and may contain unedited grammatical errors. 59 year-old male presents to ED today by EMS with a chief complaint of chest pain, L sided squeezing with onset 25 minutes prior to arrival. Quality described as squeezing, no radiation to shortness of breath, near syncope, abdominal pain, URI symptoms, patient endorses GERD, nausea. Severity is described as moderate/10. Palliating factors include given 324mg ASA by EMS. Provoking factors include nothing specific was at rest at onset. Events leading up to the incident/Associated Symptoms: Patient denies overt cardiac history, endorses mitral valve prolapse but no history of NE, endorses hiatal hernia. Patients' medical history: Migraine, tobacco use disorder, morbid obesity, chronic dyspnea on exertion, schizoaffective disorder, T2DM, hypertension. Family and social history: No exercise regimen, no recent travel or sick contacts. Pertinent exam findings / vital signs include morbid obesity, benign cardiopulmonary exam, pain improved by end of visit without intervention, benign abdomen, neuro intact. Differential / pathologies of concern include ACS, PE, GERD, unlikely pneumonia or other infectious etiology, less likely pancreatitis or other upper abdominal pathology. Diagnostic studies of: -CBC, CMP, D-dimer, serial troponins, BNP, lipase, EKG, XR chest. -CBC shows chronic anemia, no leukocytosis -D-dimer negative -Serial troponins negative -BNP normal -Lipase negative -No actionable abnormality on CMP -EKG shows no dynamic changes, consistent with priors, Normal sinus rhythm at 67 bpm with P waves followed by narrow complex QRS, normal axis, no dynamic ST changes, has chronic ST depressions in lead I and aVL- has been present in the past -XR chest shows questionable R opacity, trial of azithromycin, no other abnormality, no widened mediastinum Interventions of: -324mg ASA given by EMS, given Rx for Zofran by request with negative workup. HEART Score 3-4 due to cormorbid conditions, patient can f/u outpatient OBS unlikely warranted ED Course/Assessment/Plan: 59-year-old male well-known to the department with many negative cardiac workups presents with some squeezing left-sided chest pain about 25 minutes prior to arrival, his EKG is consistent with priors, negative troponins x 3 high-sensitivity as well as a negative D-dimer, normal chest x-ray, pain had completely resolved without intervention, I offered him cardiology consult prefers Zofran to go home. I do recommend he follow-up with his PCP for update of baseline cardiac studies, he has known mitral valve prolapse, strict return criteria for further increase in chest pain or shortness of breath. Findings not consistent with ACS, PE, PNA, Sepsis, Pancreatitis, Aortic pathology. Disposition of Chest Pain of Uncertain Etiology. Patient verbalized understanding of the plan and return to ED criteria and engaged in shared decision making. Medical Records Medical records reviewed: Yes I reviewed the patient's medical records. Imaging Data Radiologic Study: Attestation: I personally reviewed and interpreted this imaging study as follows: Imaging: X-Ray Radiologist's impression: Exam: XR Chest Exam date and time: 11/09/2024 1:33 PM Age: 59 years old Clinical indication: Pain; Left-sided TECHNIQUE: Imaging protocol: Radiologic exam of the chest. Views: 2 views. COMPARISON: CT THORAX ABD/PEL CTA 10/06/2024 4:23 AM FINDINGS: Lungs: Opacity in the right lung base may represent atelectasis or pneumonia. Pleural spaces: Unremarkable. No pleural effusion. No pneumothorax. Heart/Mediastinum: Unremarkable. No cardiomegaly. Bones/joints: Unremarkable. IMPRESSION: Opacity in the right lung base may represent atelectasis or pneumonia. Dictated and Authenticated by: Brett Jang MD. EXAM: XR CHEST 2V PA LATERAL CLINICAL HISTORY: L sided CP. TECHNIQUE: 2D digital imaging was performed. COMPARISON: No exams were available for comparison FINDINGS: 2 views: Heart size is normal. The mediastinum is not widened. Lungs are clear. No infiltrates nor pleural effusions. IMPRESSION: No acute pulmonary findings. Lab Data Lab results reviewed: Yes I reviewed the patient's lab results. Labs: Laboratory Tests Range/Units 11/09/24 11/09/24 11/09/24 10:30 11:30 13:28 WBC (4.4-10.8) 10^3/uL 4.29 L RBC (4.36-5.78) 10^6/uL 3.40 L Hgb (13.5-17.5) g/dL 10.7 L Hct (40.0-50.0) % 31.5 L MCV (80-95) fL 93 MCH (27.0-33.0) pg 31.5 MCHC (32.0-36.0) % 34.0 RDW (11.8-14.1) % 12.5 Plt Count (130-400) 10^3/uL 113 L MPV (8.0-11.0) fL 8.5 Immature Gran % % 0.7 Neutrophils % % 52.7 Lymphocytes % % 34.7 Monocytes % % 9.6 Eosinophils % % 2.1 Basophils % % 0.2 Nucleated RBC % (0.0-0.3) % 0.0 Absolute Neutrophils (1.2-6.7) 10^3/uL 2.26 Absolute Lymphocytes (1.2-3.4) 10^3/uL 1.49 Absolute Monocytes (0.1-0.8) 10^3/uL 0.41 Absolute Eosinophils (0.0-0.7) 10^3/uL 0.09 Absolute Basophils (0.0-0.2) 10^3/uL 0.01 D-Dimer (<500) ng/mlFEU 420 Sodium (136-145) mmol/L 133 L Potassium (3.5-5.1) mmol/L 4.3 Chloride (98-107) mmol/L 97 L Carbon Dioxide (21.0-32.0) mmol/L 32.8 H Anion Gap (3-11) mmol/L 3.2 BUN (7-18) mg/dL 9 Creatinine (0.70-1.30) mg/dL 0.9 Est GFR (CKD-EPI 2020) (mL/min/1.73m2) 98.38 Glucose (74-106) mg/dL 135 H Calcium (8.5-10.1) mg/dL 8.5 Magnesium (1.8-2.4) mg/dL 1.6 L Total Bilirubin (0.2-1.0) mg/dL 0.25 AST (15-37) U/L 15 ALT (16-63) U/L 22 Alkaline Phosphatase (46-116) U/L 67 Troponin I (<or=76) ng/L < 4 < 4 4 NT-Pro-B Natriuret Pep (<300) pg/mL 120 Total Protein (6.4-8.2) g/dL 7.5 Albumin (3.4-5.0) g/dL 3.3 L Lipase (<78) U/L 11 Quality:SDOH Health Related Social Needs: No Data to Display PFSH All Active Problems (Updated 11/10/24 @ 00:08 by ZAFAR TRENT) Chest pain of uncertain etiology (Acute) Laceration of hand (Acute) Knee pain (Acute) Dental caries (Acute) Nicotine dependence (Acute) Dyspnea on exertion (Acute) Shortness of breath (Acute) Hypercholesterolemia (Chronic 09/07/14) pt insists on lipitor 80 mg due to family hx Depression (Acute 10/02/14) Left-sided chest wall pain (Acute) Chest pain (Acute) Chronic headache (Acute) Migraine headache without aura (Acute) Migraine (Chronic) Poor dentition (Acute) Tobacco use disorder (Chronic) started 2013 1.5 ppd, pipe 1-7/week, QUIT LATE OCT 2021 Allergic rhinitis (Chronic) lortadine Hiatal hernia (Chronic) protonix not effective, nexium works better 02/12/18 Anemia (Chronic) Broken teeth (Chronic) Drug-seeking behavior (Chronic ~09/20/21) Requests Ritalin from providers Medication overuse headache (Acute) Medical History Obesity BMI 52 Hypertension pt requests brand name Tenormin vs atenolol 04/02/18 GERD (gastroesophageal reflux disease) (09/07/14) Diabetes mellitus type 2 in obese (09/09/14) Hypothyroidism (acquired) (09/07/14) Schizoaffective disorder (09/07/14) FREDDIE Thakkar 09/2014- PENDING SALE TO [facility] inpatient Trigeminal neuralgia Anxiety Mitral valve prolapse Hyperlipidemia Peripheral neuropathy Surgical History No significant past surgical history Family History Father Heart disease NE Social History Smoking/Tobacco Use Status: Former Tobacco Use Smoking risk assessment performed?: Yes Alcohol Intake: never Drug use: Never Substance use type: does not use Adopted: No Caregiver/Support person: No Foster care: No Household members: none Housing: apartment Number of Children: 2 number of grandchildren: 1 Communication Needs: Corrective Lenses Education Level: college Do you need help understanding health information?: Always current occupation: Unemployed/Leave of absence Sexually active: No Do you think of yourself as: Decline to provide Current gender identity: male What type of physical activity do you participate in: other Details: weight lifting Frequency: 3-4 times per week Magalie/Episcopalian: Mormon Seatbelt use: always Drive intox or ride w/intox mail 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
[2024-11-09 10:36] LABS: Abs Immature Grans 0.03 10^3/uL (0.0-0.06); Absolute Basophil Count 0.01 10^3/uL (0.0-0.2); Absolute Eosinophil Count 0.09 10^3/uL (0.0-0.7); Absolute Lymphocyte Count 1.49 10^3/uL (1.2-3.4); Absolute Monocyte Count 0.41 10^3/uL (0.1-0.8); Absolute Neutrophil Count 2.26 10^3/uL (1.2-6.7); Basophils % 0.2 %; Eosinophils % 2.1 %; HCT 31.5 % (40.0-50.0); HGB 10.7 g/dL (13.5-17.5); Immature Grans % 0.7 %; Lymphocytes % 34.7 %; MCH 31.5 pg (27.0-33.0); MCV 93 fL (80-95); MPV 8.5 fL (8.0-11.0); Monocytes % 9.6 %; Neutrophils % 52.7 %; Platelet Count 113 10^3/uL (130-400); RDW 12.5 % (11.8-14.1); RDW-SD 42.3 fL; WBC 4.29 10^3/uL (4.4-10.8)
[2024-11-09 10:59] LABS: ALT 22 U/L (16-63); AST 15 U/L (15-37); Albumin 3.3 g/dL (3.4-5.0); Alkaline Phosphatase 67 U/L (46-116); Anion Gap 3.2 mmol/L (3-11); BUN 9 mg/dL (7-18); Bilirubin, Total 0.25 mg/dL (0.2-1.0); CO2 32.8 mmol/L (21.0-32.0); CREATININE 0.9 mg/dL (0.70-1.30); Calcium 8.5 mg/dL (8.5-10.1); Chloride 97 mmol/L (98-107); Estimated GFR 98.38 (mL/min/1.73m2); Glucose 135 mg/dL (74-106); Lipase 11 U/L (<78); Magnesium 1.6 mg/dL (1.8-2.4); NT-proBNP 120 pg/mL (<300); Potassium 4.3 mmol/L (3.5-5.1); Sodium 133 mmol/L (136-145); Total Protein 7.5 g/dL (6.4-8.2)
[2024-11-09 11:00] LABS: Troponin I < 4 ng/L (<or=76)
[2024-11-09 11:02] LABS: D-Dimer 420 ng/mlFEU (<500)
[2024-11-09 12:05] LABS: Troponin I < 4 ng/L (<or=76)
--- NOTE | 2024-11-09 13:01 | DI.RAD_ITS ---
Exam(s) XR CHEST 2V PA LATERAL EXAM: XR CHEST 2V PA LATERAL CLINICAL HISTORY: L sided CP. TECHNIQUE: 2D digital imaging was performed. COMPARISON: No exams were available for comparison FINDINGS: 2 views: Heart size is normal. The mediastinum is not widened. Lungs are clear. No infiltrates nor pleural effusions. IMPRESSION: No acute pulmonary findings. DATA REPOSITORY: RADIATION DOSE DELIVERED:
[2024-11-09 13:52] LABS: Troponin I 4 ng/L (<or=76)
--- NOTE | 2024-11-09 14:10 | DI.VRAD_ITS ---
PROCEDURE INFORMATION: Exam: XR Chest Exam date and time: 11/09/2024 1:33 PM Age: 59 years old Clinical indication: Pain; Left-sided TECHNIQUE: Imaging protocol: Radiologic exam of the chest. Views: 2 views. COMPARISON: CT THORAX ABD/PEL CTA 10/06/2024 4:23 AM FINDINGS: Lungs: Opacity in the right lung base may represent atelectasis or pneumonia. Pleural spaces: Unremarkable. No pleural effusion. No pneumothorax. Heart/Mediastinum: Unremarkable. No cardiomegaly. Bones/joints: Unremarkable. IMPRESSION: Opacity in the right lung base may represent atelectasis or pneumonia. Dictated and Authenticated by: Brett Jang MD. Ordering:NAZARIO Mcgovern MD
[2024-11-09] MEDS: Ondansetron O.D.T. 4 MG TABEF, 3 TABS/BTL PO (14:56)
== END 2024-11-09 15:02 | disposition home or self-care (01) ==
PROVIDERS: Emergency Provider Physician Assistant; PCP Family Medicine
DX: R07.9 Chest pain, unspecified (principal); R11.0 Nausea
CPT/HCPCS: 80053; 83690; 93005; 99284; 71046; 83735; 83880; 84484; 85025; 85379; 93010

== ENCOUNTER 2024-11-15 18:40 | Emergency (ER) | payer MEDICAID, SELFPAY ==
--- NOTE | 2024-11-15 18:30 | RT.EKG_ITS ---
APPROVED REPORT Exam: Resting ECG Reason for Exam: Chest pain Patient Location: E HR:76 bpm ECG Measurements Heart Rate 76 AXIS MA [id number] P [id number] QRSd 113 QRS 18 QT 444 T 92 QTc 500 Conclusion Sinus rhythm, rate 76 QTc prolonged at 500ms No STEMI No significant changes from priors baseline artifact
[2024-11-15 18:39] VITALS: BP 165/79; PULSE 78; RESP 14; TEMP 36.5; O2SAT 96
--- NOTE | 2024-11-15 18:55 | W.ED.GENAD ---
Discharge Plan Disposition Patient Disposition: Home Condition: Stable Discharge Details Clinical Impression: Chest pain of uncertain etiology, Tobacco use disorder, Anemia, Hypercholesterolemia, Visit for suture removal, Hypomagnesemia, Hyponatremia Primary Care Provider: Brandon Foster ED Provider: Katarzyna Jennings Home Meds and New Rx's Prescriptions: No Action gabapentin 300 mg capsule 300 mg PO QID bupropion HCl 75 mg tablet 150 mg PO DAILY Rx Instructions: administer 6 hours apart sumatriptan succinate 100 mg tablet See Rx Instructions PO .COMPLEX Qty: 9 5RF Rx Instructions: take 1 tab at onset of headache; if no relief, may repeat 1 tab after at least 2 hrs; max = 2 tabs/24 hrs PO Nurtec ODT 75 mg tablet,disintegrating 75 mg PO ONCE PRN (Reason: migraine headache) Qty: 8 5RF Rx Instructions: as a single dose; no more than 1 tab per day Emgality Pen 120 mg/mL pen injector 120 mg subcut QMONTH Qty: 1 11RF Claritin Liqui-Gel 10 MG capsule 1 cap PO DAILY Qty: 90 metformin 500 mg tablet 500 mg PO BID fluoxetine 10 mg capsule See Rx Instructions PO .COMPLEX Patient Comments: Pt states he takes two tablets per day in the AM 11/15/24 - ML Rx Instructions: 5 mg orally AM; 10 mg afaternoon, 20 mg HS per PCP list 09/24/24 fluoxetine 40 mg capsule 80 mg PO DAILY multivitamin Tablet 1 tab PO DAILY clonazepam 0.5 mg tablet See Rx Instructions .ROUTE .COMPLEX Rx Instructions: 1 tab in AM, 1 tab at Noon and 2 tab QHS simvastatin 80 mg tablet 80 mg PO DAILY Patient Comments: Take 1 tablet by mouth once a day ondansetron HCl 4 mg tablet 4 mg PO Q8H PRN Patient Comments: Take 1 tablet by mouth every eight hours as needed as directed azithromycin 250 mg tablet See Rx Instructions .ROUTE .COMPLEX Qty: 6 0RF Rx Instructions: For 250 mg dose pack: take 500 mg today (day 1), then 250 mg for 4 days (days 2-5) benztropine 0.5 MG tablet 0.5 mg PO BID aspirin,buffd-calcium carb-mag 325 MG tablet 325 mg PO DAILY lactulose 10 gram/15 mL solution 20 g PO DIRECTED PRN Patient Comments: TAKE ONE TO TWO TABLESPOONS BY MOUTH NEEDED WHEN 3 DAYS PASS WITHOUT BOWEL MOVEMENT albuterol sulfate 90 mcg/actuation aerosol powdr breath activated 2 inh IH Q6H PRN (Reason: shortness of breath or wheezing) Qty: 1 0RF atenolol 25 mg tablet 75 mg PO DAILY Patient Comments: Take 3 tablet by mouth once a day Invega Sustenna 117 mg/0.75 mL syringe 117 mg IM Q30D divalproex [Depakote ER] 500 mg tablet extended release 24 hr 500 mg PO ONCE omeprazole 40 mg capsule,delayed release(DR/EC) 40 mg PO DAILY Patient Comments: TAKE 1 CAPSULE BY MOUTH DAILY FOR HEARTBURN Discharge Instructions Instructions: Chest Pain, Adult ED Additional Instructions: You were seen in the emergency department today for evaluation of chest pain. In our department you had a full physical examination performed, had laboratory studies that were largely reassuring including 2 negative cardiac enzymes. You do have a mild downtrend in your sodium and magnesium, which have been low in the past. Please maintain good nutrition and avoid excessive overhydration. You had a chest x-ray that did not show any abnormalities which could account for your symptoms. Additionally, your sutures were removed from your left hand. Please follow-up with your primary care provider in the next few days to discuss this visit and any symptoms that change, worsen, or persist. Thank you for allowing us to be part of your care. HPI General Mode of arrival: EMS. Date/Time Provider Initiated Documentation: 11/15/24 18:48. Limitations to Documentation: no limitations. Information obtained by: patient, EMS and old records reviewed. HPI Narrative: HPI: This is a 59-year-old male patient with a past medical history significant for frequent chest wall pain, anemia, tobacco use, and hyperlipidemia who is presenting for evaluation of chest pain that started 30 minutes ago. The patient reports that he was at rest when this pain started, states that he was lying on the floor, which is where he has been sleeping because he has numerous personal items on his bed. He reports that he feels that this is quite comfortable, and has no concerns about this today. States that the pain is located in the left side of his chest, does not radiate, is worse with palpation but not with movement or deep breath. He does report that the pain makes him feel like his breathing is little more difficult than typical, has not had any recent fevers, runny or stuffy nose, or cough. The patient has no significant cardiac history, did take an aspirin prior to arrival at our facility, states that he has run out of Tylenol. He did receive Tylenol per EMS, who transported him to our facility and noted no vital sign abnormalities during transport. Exam: Gen: Awake and alert, in no apparent distress HEENT: Non-icteric sclera Neck: Supple Lungs: No apparent respiratory distress, normal respiratory effort. Lung sounds clear and equal bilaterally without wheezes, rhonchi, rales CV: Appears well perfused, heart with regular rate and rhythm, no murmurs auscultated, strong distal pulses. Chest wall is tender to palpation over the left anterior aspect without overlying skin changes, crepitus or deformity Abdomen: Non-distended, soft, nontender without rigidity, rebound, guarding MSK: Moves 4 extremities without apparent limitation in ROM Skin: Visualized skin without rashes, cyanosis. The patient is incidentally noted to have 4 retained nonabsorbable sutures in the lateral aspect of his left second MCP, placed a little over 1 month ago by this provider for a laceration. No surrounding induration, fluctuance, or purulent drainage, some thickening/callusing of the skin surrounding is appreciated. Neuro: Normal Gait, no obvious focal deficits or facial asymmetry. Speaks in full, clear sentences. Psych: Appropriate for situation. MDM: This is a 59-year-old male patient presenting for evaluation of chest pain. My differential includes but is not limited to ACS including STEMI, NSTEMI, unstable angina, considered arrhythmia, pericarditis/myocarditis, musculoskeletal etiologies including chest wall pain, costochondritis. Considered pulmonary abnormalities including URI, pneumonia, bronchitis, pneumothorax, pulmonary edema, pleural effusion. I obtained an EKG which shows a sinus rhythm without evidence of ischemia, interval abnormalities, or ectopy. Will obtain laboratory studies to include CBC, CMP, magnesium, troponin, and obtain a chest x-ray. I did remove the four sutures in his hand, and placed a bandage as noted below. ED Course: I reviewed the patient's laboratory studies, which shows the stable anemia, but no leukocytosis or thrombocytopenia. Chemistry panel reveals mild hyponatremia, which the patient has had on prior studies. No evidence for kidney dysfunction, magnesium slightly low at 1.5, no evidence for liver dysfunction. Troponin was negative x 2 checks, the patient reports significant improvement in symptoms after Tylenol administration. I independently interpreted the patient's chest x-ray, shows no abnormalities to account for his symptoms. I am most concerned for musculoskeletal chest pain, which the patient has had in the past numerous times. At this time, the patient has had a full medical evaluation and is safe for discharge to home. They are hemodynamically stable, ambulatory, and tolerating PO. They are understanding of the follow-up plan and return precautions. They left our facility without incident. Katarzyna Jennings MD Related Data Home Medications ?Medication ?Instructions ?Recorded ?Confirmed loratadine 10 mg capsule (Claritin 1 cap PO DAILY #90 tabs 12/16/14 11/15/24 Liqui-Gel) aspirin,buffered (calcium 325 mg PO DAILY 11/18/16 11/15/24 carbonate-magnesium) 325 mg tablet benztropine 0.5 mg tablet 0.5 mg PO BID 11/18/16 11/15/24 lactulose 10 gram/15 mL oral 20 g PO DIRECTED PRN 10/03/20 11/15/24 solution albuterol sulfate 90 mcg/actuation 2 inh inhalation Q6H PRN shortness 12/15/20 11/15/24 breath activated powder inhaler of breath or wheezing #1 ea multivitamin 1 tab PO DAILY 01/26/21 11/15/24 clonazepam 0.5 mg tablet See Rx Instructions .Route .COMPLEX 03/04/23 11/15/24 gabapentin 300 mg capsule 300 mg PO QID 03/27/23 11/15/24 atenolol 25 mg tablet 75 mg PO DAILY 01/31/24 11/15/24 divalproex 500 mg tablet,extended 500 mg PO ONCE 01/31/24 11/15/24 release 24 hr (Depakote ER) omeprazole 40 mg capsule,delayed 40 mg PO DAILY 01/31/24 11/15/24 release paliperidone palmitate 117 mg/0.75 117 mg IM Q30D 01/31/24 11/15/24 mL intramuscular syringe (Invega Sustenna) simvastatin 80 mg tablet 80 mg PO DAILY 03/08/24 11/15/24 ondansetron HCl 4 mg tablet 4 mg PO Q8H PRN 07/22/24 11/15/24 bupropion HCl 75 mg tablet 150 mg PO DAILY 08/04/24 11/15/24 galcanezumab-gnlm 120 mg/mL 120 mg subcut QMONTH #1 mL 08/04/24 11/15/24 subcutaneous pen injector (Emgality Pen) rimegepant 75 mg disintegrating 75 mg PO ONCE PRN migraine 08/04/24 11/15/24 tablet (Nurtec ODT) headache #8 tabs sumatriptan succinate 100 mg tablet See Rx Instructions PO .COMPLEX #9 08/04/24 11/15/24 tabs fluoxetine 10 mg capsule See Rx Instructions PO .COMPLEX 09/24/24 11/15/24 fluoxetine 40 mg capsule 80 mg PO DAILY 09/24/24 11/15/24 metformin 500 mg tablet 500 mg PO BID 09/24/24 11/15/24 azithromycin 250 mg tablet See Rx Instructions PO .COMPLEX #6 11/09/24 11/15/24 tabs Previous Rx's ?Medication ?Instructions ?Recorded albuterol sulfate 90 mcg/actuation 2 inh inhalation Q6H PRN shortness 12/15/20 breath activated powder inhaler of breath or wheezing #1 ea galcanezumab-gnlm 120 mg/mL 120 mg subcut QMONTH #1 mL 08/04/24 subcutaneous pen injector (Emgality Pen) rimegepant 75 mg disintegrating 75 mg PO ONCE PRN migraine 08/04/24 tablet (Nurtec ODT) headache #8 tabs sumatriptan succinate 100 mg tablet See Rx Instructions PO .COMPLEX #9 08/04/24 tabs azithromycin 250 mg tablet See Rx Instructions PO .COMPLEX #6 11/09/24 tabs Allergies Allergy/AdvReac Type Severity Reaction Status Date / Time buspirone Allergy Other (See Verified 11/15/24 18:50 Comment) paliperidone Allergy Other (See Verified 11/15/24 18:50 Comment) paroxetine HCl (From Paxil) Allergy Other (See Verified 11/15/24 18:50 Comment) sertraline Allergy Other (See Verified 11/15/24 18:50 Comment) ziprasidone (From Geodon) Allergy Other (See Verified 11/15/24 18:50 Comment) aripiprazole (From Abilify) AdvReac Intermediate INVOLUNTARY Verified 11/15/24 18:50 MUSCLE MOVEMENTS mirtazapine AdvReac Intermediate INVOLUNTARY Verified 11/15/24 18:50 MUSCLE MOVEMENTS risperidone AdvReac Intermediate INVOLUNTARY Verified 11/15/24 18:50 MUSCLE MOVEMENTS enviornmental Allergy Mild Wheezing Uncoded 11/15/24 18:50 General Stated Complaint: Chest Pain CARLOS: 3 Course Vital Signs Vital signs: Vital Signs Temperature 36.5 C 11/15/24 18:39 Pulse 78 11/15/24 18:39 Respiratory Rate 14 11/15/24 18:39 Blood Pressure 165/79 H 11/15/24 18:39 Pulse Oximetry 96 11/15/24 18:39 Temperature 36.5 C 11/15/24 18:39 Temperature Source Temporal Artery Scan 11/15/24 18:39 Pulse 78 11/15/24 18:39 Respiratory Rate 14 11/15/24 18:39 Blood Pressure 165/79 H 11/15/24 18:39 Blood Pressure Position Sitting 11/15/24 18:39 Pulse Oximetry 96 11/15/24 18:39 Oxygen Delivery Method Room Air 11/15/24 18:39 Oxygen Flow Rate 0 11/15/24 18:39 Pain Level 7 11/15/24 18:39 Procedure Laceration Laceration 1: Procedure Description/Note: 4 simple interrupted sutures removed from the left second MCP region, skin is well-approximated and healing appropriately, without induration, fluctuance or purulent drainage. Medical Decision Making Quality:SDOH Health Related Social Needs: No Data to Display PFSH All Active Problems (Updated 11/15/24 @ 20:28 by Katarzyna Jennings MD) Hyponatremia (Acute) Hypomagnesemia (Acute) Visit for suture removal (Acute) Chest pain of uncertain etiology (Acute) Knee pain (Acute) Dental caries (Acute) Nicotine dependence (Acute) Dyspnea on exertion (Acute) Shortness of breath (Acute) Hypercholesterolemia (Chronic 09/07/14) pt insists on lipitor 80 mg due to family hx Depression (Acute 10/02/14) Left-sided chest wall pain (Acute) Chest pain (Acute) Chronic headache (Acute) Migraine headache without aura (Acute) Migraine (Chronic) Poor dentition (Acute) Tobacco use disorder (Chronic) started 2013 1.5 ppd, pipe 1-7/week, QUIT LATE OCT 2021 Allergic rhinitis (Chronic) lortadine Hiatal hernia (Chronic) protonix not effective, nexium works better 02/12/18 Anemia (Chronic) Broken teeth (Chronic) Drug-seeking behavior (Chronic ~09/20/21) Requests Ritalin from providers Medication overuse headache (Acute) Medical History Obesity BMI 52 Hypertension pt requests brand name Tenormin vs atenolol 04/02/18 GERD (gastroesophageal reflux disease) (09/07/14) Diabetes mellitus type 2 in obese (09/09/14) Hypothyroidism (acquired) (09/07/14) Schizoaffective disorder (09/07/14) Rebekah Mariscal [facility] 09/[facility] Trigeminal neuralgia Anxiety Mitral valve prolapse Hyperlipidemia Peripheral neuropathy Surgical History No significant past surgical history Family History Father Heart disease HI Social History Smoking/Tobacco Use Status: Former Tobacco Use Smoking risk assessment performed?: Yes Alcohol Intake: never Drug use: Never Substance use type: does not use Adopted: No Caregiver/Support person: No Foster care: No Household members: none Housing: apartment Number of Children: 2 number of grandchildren: 1 Communication Needs: Corrective Lenses Education Level: college Do you need help understanding health information?: Always current occupation: Unemployed/Leave of absence Sexually active: No Do you think of yourself as: Decline to provide Current gender identity: male What type of physical activity do you participate in: other Details: weight lifting Frequency: 3-4 times per week Magalie/Yazidi: Restorationist Seatbelt use: always Drive intox or ride w/intox medical 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
[2024-11-15 19:15] LABS: Abs Immature Grans 0.02 10^3/uL (0.0-0.06); Absolute Basophil Count 0.02 10^3/uL (0.0-0.2); Absolute Eosinophil Count 0.08 10^3/uL (0.0-0.7); Absolute Lymphocyte Count 1.03 10^3/uL (1.2-3.4); Absolute Monocyte Count 0.54 10^3/uL (0.1-0.8); Absolute Neutrophil Count 2.96 10^3/uL (1.2-6.7); Basophils % 0.4 %; Eosinophils % 1.7 %; HCT 28.8 % (40.0-50.0); HGB 9.9 g/dL (13.5-17.5); Immature Grans % 0.4 %; Lymphocytes % 22.2 %; MCH 31.1 pg (27.0-33.0); MCHC 34.4 % (32.0-36.0); MCV 91 fL (80-95); MPV 8.7 fL (8.0-11.0); Monocytes % 11.6 %; Neutrophils % 63.7 %; Platelet Count 133 10^3/uL (130-400); RBC 3.18 10^6/uL (4.36-5.78); RDW 12.2 % (11.8-14.1); RDW-SD 40.3 fL; WBC 4.65 10^3/uL (4.4-10.8)
--- NOTE | 2024-11-15 19:30 | DI.RAD_ITS ---
Exam(s) XR CHEST 2V PA LATERAL EXAM: XR CHEST 2V PA LATERAL CLINICAL HISTORY: Chest pain TECHNIQUE: 2D digital imaging was performed of the chest. Two images were obtained. PA and lateral views were obtained. COMPARISON: CR,XR XR CHEST 2V PA LATERAL from 11/09/2024 FINDINGS: MEDIASTINUM: Normal. HEART: Normal. PULMONARY VASCULATURE: Normal. LUNGS: Clear. PLEURAL SPACE: No pleural effusion or pneumothorax. BONE:Within normal limits for the patient's age. OTHER FINDINGS:Normal. IMPRESSION: No acute pulmonary findings. DATA REPOSITORY: RADIATION DOSE DELIVERED:
[2024-11-15 19:31] LABS: ALT 23 U/L (16-63); AST 22 U/L (15-37); Albumin 3.2 g/dL (3.4-5.0); Alkaline Phosphatase 62 U/L (46-116); Anion Gap 7.6 mmol/L (3-11); BUN 8 mg/dL (7-18); Bilirubin, Total 0.51 mg/dL (0.2-1.0); CO2 28.4 mmol/L (21.0-32.0); CREATININE 0.9 mg/dL (0.70-1.30); Calcium 8.2 mg/dL (8.5-10.1); Chloride 93 mmol/L (98-107); Estimated GFR 98.38 (mL/min/1.73m2); Glucose 104 mg/dL (74-106); Magnesium 1.5 mg/dL (1.8-2.4); Potassium 4.3 mmol/L (3.5-5.1); Sodium 129 mmol/L (136-145); Troponin I 4 ng/L (<or=76)
[2024-11-15 20:22] LABS: Troponin I < 4 ng/L (<or=76)
[2024-11-15 20:40] VITALS: BP 147/74; PULSE 72; O2SAT 92
== END 2024-11-15 20:47 | disposition home or self-care (01) ==
PROVIDERS: Emergency Provider Emergency Medicine; PCP Family Medicine
DX: R07.9 Chest pain, unspecified (principal); E83.42 Hypomagnesemia; E87.1 Hypo-osmolality and hyponatremia; D64.9 Anemia, unspecified; I10 Essential (primary) hypertension; E78.5 Hyperlipidemia, unspecified; E11.9 Type 2 diabetes mellitus without complications; E03.9 Hypothyroidism, unspecified; Z79.899 Other long term (current) drug therapy; Z87.891 Personal history of nicotine dependence
CPT/HCPCS: 36415; 80053; 81025; 93005; 99285; 71046; 83735; 84484; 85025; 93010; 99284

== ENCOUNTER 2024-11-16 23:16 | Emergency (ER) | payer MEDICAID, SELFPAY ==
--- NOTE | 2024-11-16 23:00 | RT.EKG_ITS ---
APPROVED REPORT Exam: Resting ECG Reason for Exam: chest pain Patient Location: E HR:80 bpm ECG Measurements Heart Rate 80 AXIS WV 186 P 54 QRSd 108 QRS 18 QT 387 T 115 QTc 447 Conclusion Sinus rhythm...normal P axis, V-rate 60- 99 Physician: no stemi
[2024-11-16 23:08] VITALS: BP 158/83; PULSE 83; RESP 17; TEMP 36.3; O2SAT 99
[2024-11-16] MEDS: MYLANTA 30 ML, LIDOCAINE 2% VISCOUS UD 15 ML PO (23:20)
--- NOTE | 2024-11-16 23:43 | ED.GENADUL_ITS ---
Discharge Plan Disposition Patient Disposition: Home Condition: Good Discharge Details Chief Complaint: Chest Pain Clinical Impression: Chest pain of uncertain etiology Primary Care Provider: Brandon Foster ED Provider: Froilan Iraheta Home Meds and New Rx's Prescriptions: No Action gabapentin 300 mg capsule 300 mg PO QID bupropion HCl 75 mg tablet 150 mg PO DAILY Rx Instructions: administer 6 hours apart sumatriptan succinate 100 mg tablet See Rx Instructions PO .COMPLEX Qty: 9 5RF Rx Instructions: take 1 tab at onset of headache; if no relief, may repeat 1 tab after at least 2 hrs; max = 2 tabs/24 hrs PO Nurtec ODT 75 mg tablet,disintegrating 75 mg PO ONCE PRN (Reason: migraine headache) Qty: 8 5RF Rx Instructions: as a single dose; no more than 1 tab per day Emgality Pen 120 mg/mL pen injector 120 mg subcut QMONTH Qty: 1 11RF Claritin Liqui-Gel 10 MG capsule 1 cap PO DAILY Qty: 90 metformin 500 mg tablet 500 mg PO BID fluoxetine 10 mg capsule See Rx Instructions PO .COMPLEX Patient Comments: Pt states he takes two tablets per day in the AM 11/15/24 - ML Rx Instructions: 5 mg orally AM; 10 mg afaternoon, 20 mg HS per PCP list 09/24/24 fluoxetine 40 mg capsule 80 mg PO DAILY multivitamin Tablet 1 tab PO DAILY clonazepam 0.5 mg tablet See Rx Instructions .ROUTE .COMPLEX Rx Instructions: 1 tab in AM, 1 tab at Noon and 2 tab QHS simvastatin 80 mg tablet 80 mg PO DAILY Patient Comments: Take 1 tablet by mouth once a day ondansetron HCl 4 mg tablet 4 mg PO Q8H PRN Patient Comments: Take 1 tablet by mouth every eight hours as needed as directed azithromycin 250 mg tablet See Rx Instructions .ROUTE .COMPLEX Qty: 6 0RF Rx Instructions: For 250 mg dose pack: take 500 mg today (day 1), then 250 mg for 4 days (days 2-5) benztropine 0.5 MG tablet 0.5 mg PO BID aspirin,buffd-calcium carb-mag 325 MG tablet 325 mg PO DAILY lactulose 10 gram/15 mL solution 20 g PO DIRECTED PRN Patient Comments: TAKE ONE TO TWO TABLESPOONS BY MOUTH NEEDED WHEN 3 DAYS PASS WITHOUT BOWEL MOVEMENT albuterol sulfate 90 mcg/actuation aerosol powdr breath activated 2 inh IH Q6H PRN (Reason: shortness of breath or wheezing) Qty: 1 0RF atenolol 25 mg tablet 75 mg PO DAILY Patient Comments: Take 3 tablet by mouth once a day Invega Sustenna 117 mg/0.75 mL syringe 117 mg IM Q30D divalproex [Depakote ER] 500 mg tablet extended release 24 hr 500 mg PO ONCE omeprazole 40 mg capsule,delayed release(DR/EC) 40 mg PO DAILY Patient Comments: TAKE 1 CAPSULE BY MOUTH DAILY FOR HEARTBURN Discharge Instructions Additional Instructions: Please follow-up closely with your desktop support manager and mental health advocates. If you notice any worsening of your symptoms, or any new symptoms such as vomiting, diarrhea, fever, chills, shortness of breath, chest pain, numbness, weakness, or fainting , please return immediately to the emergency department for reevaluation. Please follow up with your primary care provider as soon as possible for reassessment and reevaluation. As always, it was a pleasure participating in your medical care today. Referrals: Brandon Foster [Primary Care Provider] - [facility] General Date/Time Provider Initiated Documentation: 11/16/24 23:31 . [facility] Narrative: This is a 59-year-old male with a past medical history of anxiety, depression, type 2 diabetes, high cholesterol, obesity, schizoaffective disorder, hypothyroidism, chronic headaches, chronic recurrent visits to the emergency department for evaluation of chest pain which is often associated with anxiety or reflux, who presents today via EMS for evaluation of chest pain. Patient was seen and assessed for chest pain with a notably thorough workup 24 hours ago. Patient states that about 30 minutes prior to arrival he developed mild chest pain. He felt slightly anxious. He denies any other complaints. He denies any tearing or ripping sensation. No pleuritic chest pain. No other complaints at this time. Related Data Home Medications ?Medication ?Instructions ?Recorded ?Confirmed loratadine 10 mg capsule (Claritin 1 cap PO DAILY #90 tabs 12/16/14 11/16/24 Liqui-Gel) aspirin,buffered (calcium 325 mg PO DAILY 11/18/16 11/16/24 carbonate-magnesium) 325 mg tablet benztropine 0.5 mg tablet 0.5 mg PO BID 11/18/16 11/16/24 lactulose 10 gram/15 mL oral 20 g PO DIRECTED PRN 10/03/20 11/16/24 solution albuterol sulfate 90 mcg/actuation 2 inh inhalation Q6H PRN shortness 12/15/20 11/16/24 breath activated powder inhaler of breath or wheezing #1 ea multivitamin 1 tab PO DAILY 01/26/21 11/16/24 clonazepam 0.5 mg tablet See Rx Instructions .Route .COMPLEX 03/04/23 11/16/24 gabapentin 300 mg capsule 300 mg PO QID 03/27/23 11/16/24 atenolol 25 mg tablet 75 mg PO DAILY 01/31/24 11/16/24 divalproex 500 mg tablet,extended 500 mg PO ONCE 01/31/24 11/16/24 release 24 hr (Depakote ER) omeprazole 40 mg capsule,delayed 40 mg PO DAILY 01/31/24 11/16/24 release paliperidone palmitate 117 mg/0.75 117 mg IM Q30D 01/31/24 11/16/24 mL intramuscular syringe (Invega Sustenna) simvastatin 80 mg tablet 80 mg PO DAILY 03/08/24 11/16/24 ondansetron HCl 4 mg tablet 4 mg PO Q8H PRN 07/22/24 11/16/24 bupropion HCl 75 mg tablet 150 mg PO DAILY 08/04/24 11/16/24 galcanezumab-gnlm 120 mg/mL 120 mg subcut QMONTH #1 mL 08/04/24 11/16/24 subcutaneous pen injector (Emgality Pen) rimegepant 75 mg disintegrating 75 mg PO ONCE PRN migraine 08/04/24 11/16/24 tablet (Nurtec ODT) headache #8 tabs sumatriptan succinate 100 mg tablet See Rx Instructions PO .COMPLEX #9 08/04/24 11/16/24 tabs fluoxetine 10 mg capsule See Rx Instructions PO .COMPLEX 09/24/24 11/16/24 fluoxetine 40 mg capsule 80 mg PO DAILY 09/24/24 11/16/24 metformin 500 mg tablet 500 mg PO BID 09/24/24 11/16/24 azithromycin 250 mg tablet See Rx Instructions PO .COMPLEX #6 11/09/24 11/16/24 tabs Previous Rx's ?Medication ?Instructions ?Recorded albuterol sulfate 90 mcg/actuation 2 inh inhalation Q6H PRN shortness 12/15/20 breath activated powder inhaler of breath or wheezing #1 ea galcanezumab-gnlm 120 mg/mL 120 mg subcut QMONTH #1 mL 08/04/24 subcutaneous pen injector (Emgality Pen) rimegepant 75 mg disintegrating 75 mg PO ONCE PRN migraine 08/04/24 tablet (Nurtec ODT) headache #8 tabs sumatriptan succinate 100 mg tablet See Rx Instructions PO .COMPLEX #9 08/04/24 tabs azithromycin 250 mg tablet See Rx Instructions PO .COMPLEX #6 11/09/24 tabs Allergies Allergy/AdvReac Type Severity Reaction Status Date / Time buspirone Allergy Other (See Verified 11/16/24 23:18 Comment) paliperidone Allergy Other (See Verified 11/16/24 23:18 Comment) paroxetine HCl (From Paxil) Allergy Other (See Verified 11/16/24 23:18 Comment) sertraline Allergy Other (See Verified 11/16/24 23:18 Comment) ziprasidone (From Geodon) Allergy Other (See Verified 11/16/24 23:18 Comment) aripiprazole (From Abilify) AdvReac Intermediate INVOLUNTARY Verified 11/16/24 23:18 MUSCLE MOVEMENTS mirtazapine AdvReac Intermediate INVOLUNTARY Verified 11/16/24 23:18 MUSCLE MOVEMENTS risperidone AdvReac Intermediate INVOLUNTARY Verified 11/16/24 23:18 MUSCLE MOVEMENTS enviornmental Allergy Mild Wheezing Uncoded 11/16/24 23:18 General Stated Complaint: Chest Pain CARLOS: 3 Exam Narrative Exam Narrative: 1.Const: Well-nourished, Well-developed, appearing older than his age, slightly unkempt 2.Eyes: PERRL, no conjunctival injection, and symmetrical lids. 3.ENT: Atraumatic external nose and ears. Moist MM. Neck: Symmetric, trachea midline, No thyromegaly. 4.CVS: +S1/S2, Peripheral pulses 2+ and equal in all extremities. Brisk capillary refill in all extremities. 5.RESP: Unlabored respiratory effort. Clear to auscultation bilaterally. No wheezes rales or rhonchi 6.GI: Soft, Nontender/Nondistended, No hepatosplenomegaly. No guarding or rebound. 7.MSK: Normocephalic/Atraumatic, Extremities w/o deformity or ttp No cyanosis or clubbing, Normal movement of all extremities 8.Skin: Warm, Dry. No rashes or lesions. 9.Neuro: clinical trials assistant II-XII grossly intact. Sensation grossly intact, no focal neurologic deficits. 10.Psych: (AAO) x3. Appropriate mood and affect Course Vital Signs Vital signs: Vital Signs Temperature 36.3 C L 11/16/24 23:08 Pulse 83 11/16/24 23:08 Respiratory Rate 17 11/16/24 23:08 Blood Pressure 158/83 H 11/16/24 23:08 Pulse Oximetry 99 11/16/24 23:08 Temperature 36.3 C L 11/16/24 23:08 Temperature Source Temporal Artery Scan 11/16/24 23:08 Pulse 83 11/16/24 23:08 Respiratory Rate 17 11/16/24 23:08 Blood Pressure 158/83 H 11/16/24 23:08 Blood Pressure Position Sitting 11/16/24 23:08 Pulse Oximetry 99 11/16/24 23:08 Oxygen Delivery Method Room Air 11/16/24 23:08 Oxygen Flow Rate 0 11/16/24 23:08 Pain Level 7 11/16/24 23:08 Medical Decision Making This is a 59-year-old male with a past medical history of anxiety, depression, type 2 diabetes, high cholesterol, obesity, schizoaffective disorder, hypothyroidism, chronic headaches, chronic recurrent visits to the emergency department for evaluation of chest pain which is often associated with anxiety or reflux, who presents today via EMS for evaluation of chest pain. Patient was seen and assessed for chest pain with a notably thorough workup 24 hours ago. Patient states that about 30 minutes prior to arrival he developed mild chest pain. He felt slightly anxious. He denies any other complaints. He denies any tearing or ripping sensation. No pleuritic chest pain. No other complaints at this time. Exam demonstrates a stable appearing male, EKG demonstrates no STEMI or significant abnormality. Symptoms. Consistent with ACS. GI cocktail was given, and after this patient had complete resolution of his symptoms. Patient feels stable. No evidence of life-threatening etiology. Vital signs stable. Patient will be discharged home. Discussed red flags for which to return. I have extensively reviewed the treatment plan and discharge instructions with the patient. I have addressed all patient concerns at this time. The patient was made aware of what symptoms to monitor for that would warrant a return to the emergency department. Discussed the plan with the patient, they demonstrate verbal understanding and agreement with our assessment and plan at this time. The documentation in this chart was dictated using Page[employer] dictation software. Please excuse any dictation errors. Quality:SDOH Health Related Social Needs: No Data to Display PFSH All Active Problems (Updated 11/17/24 @ 06:08 by Froilan Iraheta DO) Hyponatremia (Acute) Hypomagnesemia (Acute) Visit for suture removal (Acute) Chest pain of uncertain etiology (Acute) Knee pain (Acute) Dental caries (Acute) Nicotine dependence (Acute) Dyspnea on exertion (Acute) Shortness of breath (Acute) Hypercholesterolemia (Chronic 09/07/14) pt insists on lipitor 80 mg due to family hx Depression (Acute 10/02/14) Left-sided chest wall pain (Acute) Chest pain (Acute) Chronic headache (Acute) Migraine headache without aura (Acute) Migraine (Chronic) Poor dentition (Acute) Tobacco use disorder (Chronic) started 2013 1.5 ppd, pipe 1-7/week, QUIT LATE OCT 2021 Allergic rhinitis (Chronic) lortadine Hiatal hernia (Chronic) protonix not effective, nexium works better 02/12/18 Anemia (Chronic) Broken teeth (Chronic) Drug-seeking behavior (Chronic ~09/20/21) Requests Ritalin from providers Medication overuse headache (Acute) Medical History Obesity BMI 52 Hypertension pt requests brand name Tenormin vs atenolol 04/02/18 GERD (gastroesophageal reflux disease) (09/07/14) Diabetes mellitus type 2 in obese (09/09/14) Hypothyroidism (acquired) (09/07/14) Schizoaffective disorder (09/07/14) FREDDIE Thakkar 09/2014- [facility] inpatient Trigeminal neuralgia Anxiety Mitral valve prolapse Hyperlipidemia Peripheral neuropathy Surgical History No significant past surgical history Family History Father Heart disease MD Social History Smoking/Tobacco Use Status: Former Tobacco Use Smoking risk assessment performed?: Yes Alcohol Intake: never Drug use: Never Substance use type: does not use Adopted: No Caregiver/Support person: No Foster care: No Household members: none Housing: apartment Number of Children: 2 number of grandchildren: 1 Communication Needs: Corrective Lenses Education Level: college Do you need help understanding health information?: Always current occupation: Unemployed/Leave of absence Sexually active: No Do you think of yourself as: Decline to provide Current gender identity: male What type of physical activity do you participate in: other Details: weight lifting Frequency: 3-4 times per week Magalie/Presybeterian: Ep[employer]opalian Seatbelt use: always Drive intox or ride w/intox hammer 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
[2024-11-17 06:47] VITALS: BP 168/92; PULSE 75; O2SAT 95
== END 2024-11-17 06:59 | disposition home or self-care (01) ==
PROVIDERS: Emergency Provider Student in an Organized Health Care Education/Training Program; PCP Family Medicine
DX: R07.9 Chest pain, unspecified (principal); I10 Essential (primary) hypertension; E03.9 Hypothyroidism, unspecified; E78.5 Hyperlipidemia, unspecified; E11.9 Type 2 diabetes mellitus without complications; Z79.84 Long term (current) use of oral hypoglycemic drugs; Z87.891 Personal history of nicotine dependence
CPT/HCPCS: 93005; 99283; 93010

== ENCOUNTER 2024-11-17 08:06 | Outpatient (CLI) | payer MEDICAID, SELFPAY | END 2024-11-17 08:07 | disposition home or self-care (01) | LOC: DI.CARD 08:07 | PROVIDERS: PCP Family Medicine; Visit Provider Registered Nurse | CPT/HCPCS: 93010 ==

== ENCOUNTER 2024-11-30 04:53 | Emergency (ER) | payer MEDICAID, SELFPAY ==
[2024-11-30] VITALS (9 sets, daily range): BP systolic 150–158; BP diastolic 81; PULSE 70–74; RESP 12–24; TEMP 36.7; O2SAT 95–98
--- NOTE | 2024-11-30 04:52 | ED.GENADUL_ITS ---
Discharge Plan Disposition Patient Disposition: Home Condition: Good Discharge Details Clinical Impression: Nausea Primary Care Provider: Brandon Foster ED Provider: Sparkle Slater Home Meds and New Rx's Prescriptions: Continued gabapentin 300 mg capsule 300 mg PO QID bupropion HCl 75 mg tablet 150 mg PO DAILY Rx Instructions: administer 6 hours apart sumatriptan succinate 100 mg tablet See Rx Instructions PO .COMPLEX Qty: 9 5RF Rx Instructions: take 1 tab at onset of headache; if no relief, may repeat 1 tab after at least 2 hrs; max = 2 tabs/24 hrs PO Nurtec ODT 75 mg tablet,disintegrating 75 mg PO ONCE PRN (Reason: migraine headache) Qty: 8 5RF Rx Instructions: as a single dose; no more than 1 tab per day Emgality Pen 120 mg/mL pen injector 120 mg subcut QMONTH Qty: 1 11RF Claritin Liqui-Gel 10 MG capsule 1 cap PO DAILY Qty: 90 metformin 500 mg tablet 500 mg PO BID fluoxetine 10 mg capsule See Rx Instructions PO .COMPLEX Patient Comments: Pt states he takes two tablets per day in the AM 11/15/24 - ML Rx Instructions: 5 mg orally AM; 10 mg afaternoon, 20 mg HS per PCP list 09/24/24 fluoxetine 40 mg capsule 80 mg PO DAILY multivitamin Tablet 1 tab PO DAILY clonazepam 0.5 mg tablet See Rx Instructions .ROUTE .COMPLEX Rx Instructions: 1 tab in AM, 1 tab at Noon and 2 tab QHS simvastatin 80 mg tablet 80 mg PO DAILY Patient Comments: Take 1 tablet by mouth once a day ondansetron HCl 4 mg tablet 4 mg PO Q8H PRN Patient Comments: Take 1 tablet by mouth every eight hours as needed as directed benztropine 0.5 MG tablet 0.5 mg PO BID aspirin,buffd-calcium carb-mag 325 MG tablet 325 mg PO DAILY lactulose 10 gram/15 mL solution 20 g PO DIRECTED PRN Patient Comments: TAKE ONE TO TWO TABLESPOONS BY MOUTH NEEDED WHEN 3 DAYS PASS WITHOUT BOWEL MOVEMENT albuterol sulfate 90 mcg/actuation aerosol powdr breath activated 2 inh IH Q6H PRN (Reason: shortness of breath or wheezing) Qty: 1 0RF atenolol 25 mg tablet 75 mg PO DAILY Patient Comments: Take 3 tablet by mouth once a day Invega Sustenna 117 mg/0.75 mL syringe 117 mg IM Q30D divalproex [Depakote ER] 500 mg tablet extended release 24 hr 500 mg PO ONCE omeprazole 40 mg capsule,delayed release(DR/EC) 40 mg PO DAILY Patient Comments: TAKE 1 CAPSULE BY MOUTH DAILY FOR HEARTBURN Discharge Instructions Instructions: Nausea and Vomiting, Adult ED Additional Instructions: Tylenol over the counter for discomfort; follow the directions on the bottle. Ondansetron up to every 8 hours as needed for nausea. Call your primary care doctor to schedule an appointment for within the next 72 hours to follow up on your visit today. Return to the emergency department for new or worsening symptoms including inability to keep down fluids, new/different/worse abdominal pain, or if you have any other concerns. Referrals: Brandon Foster [Primary Care Provider] - [facility] General Mode of arrival: EMS . Date/Time Provider Initiated Documentation: 11/30/24 04:54 . Limitations to Documentation: no limitations . Information obtained by: patient and EMS . HPI Narrative: 59yo M with hx obesity, T2DM, HTN, HLD, hypothyroid, asthma, GERD, anxiety, schizoaffective disorder, presenting via EMS for nausea and bloating. Symptoms started 2 hours ago, I thought I should come in and get checked out. Similar symptoms in the past but not sure why it is occuring. Associated dull crampy diffuse abdominal cramping and rumbling. No treatments attempted at home. No vomiting, constipation, diarrhea, melena, or bloody stool. Last BM two days ago, normal. He is otherwise in his usual state of health with no fevers, chills, rash, dysuria, hematuria, or other concerns. Related Data Home Medications ?Medication ?Instructions ?Recorded ?Confirmed loratadine 10 mg capsule (Claritin 1 cap PO DAILY #90 tabs 12/16/14 11/30/24 Liqui-Gel) aspirin,buffered (calcium 325 mg PO DAILY 11/18/16 11/30/24 carbonate-magnesium) 325 mg tablet benztropine 0.5 mg tablet 0.5 mg PO BID 11/18/16 11/30/24 lactulose 10 gram/15 mL oral 20 g PO DIRECTED PRN 10/03/20 11/30/24 solution albuterol sulfate 90 mcg/actuation 2 inh inhalation Q6H PRN shortness 12/15/20 11/30/24 breath activated powder inhaler of breath or wheezing #1 ea multivitamin 1 tab PO DAILY 01/26/21 11/30/24 clonazepam 0.5 mg tablet See Rx Instructions .Route .COMPLEX 03/04/23 11/30/24 gabapentin 300 mg capsule 300 mg PO QID 03/27/23 11/30/24 atenolol 25 mg tablet 75 mg PO DAILY 01/31/24 11/30/24 divalproex 500 mg tablet,extended 500 mg PO ONCE 01/31/24 11/30/24 release 24 hr (Depakote ER) omeprazole 40 mg capsule,delayed 40 mg PO DAILY 01/31/24 11/30/24 release paliperidone palmitate 117 mg/0.75 117 mg IM Q30D 01/31/24 11/30/24 mL intramuscular syringe (Invega Sustenna) simvastatin 80 mg tablet 80 mg PO DAILY 03/08/24 11/30/24 ondansetron HCl 4 mg tablet 4 mg PO Q8H PRN 07/22/24 11/30/24 bupropion HCl 75 mg tablet 150 mg PO DAILY 08/04/24 11/30/24 galcanezumab-gnlm 120 mg/mL 120 mg subcut QMONTH #1 mL 08/04/24 11/30/24 subcutaneous pen injector (Emgality Pen) rimegepant 75 mg disintegrating 75 mg PO ONCE PRN migraine 08/04/24 11/30/24 tablet (Nurtec ODT) headache #8 tabs sumatriptan succinate 100 mg tablet See Rx Instructions PO .COMPLEX #9 08/04/24 11/30/24 tabs fluoxetine 10 mg capsule See Rx Instructions PO .COMPLEX 09/24/24 11/30/24 fluoxetine 40 mg capsule 80 mg PO DAILY 09/24/24 11/30/24 metformin 500 mg tablet 500 mg PO BID 09/24/24 11/30/24 Previous Rx's ?Medication ?Instructions ?Recorded albuterol sulfate 90 mcg/actuation 2 inh inhalation Q6H PRN shortness 12/15/20 breath activated powder inhaler of breath or wheezing #1 ea galcanezumab-gnlm 120 mg/mL 120 mg subcut QMONTH #1 mL 08/04/24 subcutaneous pen injector (Emgality Pen) rimegepant 75 mg disintegrating 75 mg PO ONCE PRN migraine 08/04/24 tablet (Nurtec ODT) headache #8 tabs sumatriptan succinate 100 mg tablet See Rx Instructions PO .COMPLEX #9 08/04/24 tabs Allergies Allergy/AdvReac Type Severity Reaction Status Date / Time buspirone Allergy Other (See Verified 11/30/24 04:55 Comment) paliperidone Allergy Other (See Verified 11/30/24 04:55 Comment) paroxetine HCl (From Paxil) Allergy Other (See Verified 11/30/24 04:55 Comment) sertraline Allergy Other (See Verified 11/30/24 04:55 Comment) ziprasidone (From Geodon) Allergy Other (See Verified 11/30/24 04:55 Comment) aripiprazole (From Abilify) AdvReac Intermediate INVOLUNTARY Verified 11/30/24 04:55 MUSCLE MOVEMENTS mirtazapine AdvReac Intermediate INVOLUNTARY Verified 11/30/24 04:55 MUSCLE MOVEMENTS risperidone AdvReac Intermediate INVOLUNTARY Verified 11/30/24 04:55 MUSCLE MOVEMENTS enviornmental Allergy Mild Wheezing Uncoded 11/30/24 04:55 General CARLOS: 3 Review of Systems Narrative: see HPI Exam Narrative Exam Narrative: General: Alert, well appearing, well nourished, in no acute distress. Head: Normocephalic, atraumatic Neck: Trachea midline, ?Neck supple. ENT: ?MMM.? No oropharygeal lesions or exudate. Cardiac: ?RRR, no murmurs appreciated Resp: No respiratory distress. CTAB. Abd: ?Soft, non-distended, nontender : ?No suprapubic tenderness. No CVA tenderness. Extremities: ?No deformities.? No peripheral edema. Neurologic: GCS 15. ? Moves all extremities freely against gravity Medical Decision Making 59yo M with hx obesity, T2DM, HTN, HLD, hypothyroid, asthma, GERD, anxiety, schizoaffective disorder, presenting via EMS for two hours of nausea and bloating with mild diffuse dull abdominal cramping. No vomiting, constipation, diarrhea, or bloody stool. Vital signs reassuring on arrival, well appearing and in no distress with abdomen entirely non-tender on exam. No concerning for appendicitis, bowel obstruction, pancreatitis; no pain out of proportion to suggest mesenteric ischemia. No indication for labs or CT imaging. Discussed with patient and will plan to treat symptoms with zofran, mylanta, tylenol, and PO challenge. PO challenged and tolerated well. On reassessment pt reports feeling much improved. Abdomen remains nontender. Will discharge home with short course of zofran. Discharge instructions and return precautions were reviewed with patient who verbalized understanding. All questions were answered and he is in full agreement with the plan. Quality:SDOH Health Related Social Needs: No Data to Display PFSH All Active Problems (Updated 11/30/24 @ 06:09 by Sparkle Slater MD) Nausea (Acute) Hyponatremia (Acute) Hypomagnesemia (Acute) Visit for suture removal (Acute) Chest pain of uncertain etiology (Acute) Knee pain (Acute) Dental caries (Acute) Nicotine dependence (Acute) Dyspnea on exertion (Acute) Shortness of breath (Acute) Hypercholesterolemia (Chronic 09/07/14) pt insists on lipitor 80 mg due to family hx Depression (Acute 10/02/14) Left-sided chest wall pain (Acute) Chest pain (Acute) Chronic headache (Acute) Migraine headache without aura (Acute) Migraine (Chronic) Poor dentition (Acute) Tobacco use disorder (Chronic) started 2013 1.5 ppd, pipe 1-7/week, QUIT LATE OCT 2021 Allergic rhinitis (Chronic) lortadine Hiatal hernia (Chronic) protonix not effective, nexium works better 02/12/18 Anemia (Chronic) Broken teeth (Chronic) Drug-seeking behavior (Chronic ~09/20/21) Requests Ritalin from providers Medication overuse headache (Acute) Medical History Obesity BMI 52 Hypertension pt requests brand name Tenormin vs atenolol 04/02/18 GERD (gastroesophageal reflux disease) (09/07/14) Diabetes mellitus type 2 in obese (09/09/14) Hypothyroidism (acquired) (09/07/14) Schizoaffective disorder (09/07/14) FREDDIE Thakkar 09/2014- [facility] inpatient Trigeminal neuralgia Anxiety Mitral valve prolapse Hyperlipidemia Peripheral neuropathy Surgical History No significant past surgical history Family History Father Heart disease [place] Social History Smoking/Tobacco Use Status: Former Tobacco Use Smoking risk assessment performed?: Yes Alcohol Intake: never Drug use: Never Substance use type: does not use Adopted: No Caregiver/Support person: No Foster care: No Household members: none Housing: apartment Number of Children: 2 number of grandchildren: 1 Communication Needs: Corrective Lenses Education Level: college Do you need help understanding health information?: Always current occupation: Unemployed/Leave of absence Sexually active: No Do you think of yourself as: Decline to provide Current gender identity: male What type of physical activity do you participate in: other Details: weight lifting Frequency: 3-4 times per week Magalie/Worship: Religion Seatbelt use: always Drive intox or ride w/intox patrol 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
[2024-11-30] MEDS: Ondansetron O.D.T. 4 MG TABEF PO (05:09)
[2024-11-30] MEDS: Acetaminophen 500 MG TAB 1000 MG PO (05:15)
[2024-11-30] MEDS: Mylanta Suspension 30 ML CUP PO (05:16)
== END 2024-11-30 06:27 | disposition home or self-care (01) ==
PROVIDERS: Emergency Provider Student in an Organized Health Care Education/Training Program; PCP Family Medicine
DX: R10.9 Unspecified abdominal pain (principal); R11.0 Nausea; I10 Essential (primary) hypertension; E78.5 Hyperlipidemia, unspecified; E03.9 Hypothyroidism, unspecified; K21.9 Gastro-esophageal reflux disease without esophagitis; E11.9 Type 2 diabetes mellitus without complications; Z79.84 Long term (current) use of oral hypoglycemic drugs; Z87.891 Personal history of nicotine dependence
CPT/HCPCS: 99283

== ENCOUNTER 2024-12-10 15:34 | Emergency (ER) | payer MEDICAID, SELFPAY ==
[2024-12-10] VITALS (20 sets, daily range): BP systolic 147–168; BP diastolic 73–91; PULSE 68–79; RESP 10–19; TEMP 36.8; O2SAT 96–100
--- NOTE | 2024-12-10 15:30 | RT.EKG_ITS ---
APPROVED REPORT Exam: Resting ECG Reason for Exam: chest pain Patient Location: E HR:72 bpm ECG Measurements Heart Rate 72 AXIS UT 188 P 29 QRSd 97 QRS 9 QT 410 T 81 QTc 447 Conclusion Sinus rhythm, rate 72 No interval abnormalities No STEMI Q wave lead III ST flattening/depression I, aVL, unchanged from priors
[2024-12-10 15:52] LABS: Abs Immature Grans 0.01 10^3/uL (0.0-0.06); Absolute Eosinophil Count 0.07 10^3/uL (0.0-0.7); Absolute Lymphocyte Count 0.95 10^3/uL (1.2-3.4); Absolute Neutrophil Count 2.73 10^3/uL (1.2-6.7); Eosinophils % 1.6 %; HGB 10.4 g/dL (13.5-17.5); Immature Grans % 0.2 %; Lymphocytes % 22.3 %; MCH 31.4 pg (27.0-33.0); MCHC 33.5 % (32.0-36.0); MCV 94 fL (80-95); MPV 8.8 fL (8.0-11.0); Monocytes % 11.7 %; Neutrophils % 64.2 %; Platelet Count 139 10^3/uL (130-400); RBC 3.31 10^6/uL (4.36-5.78); RDW 12.9 % (11.8-14.1); RDW-SD 44.3 fL; WBC 4.26 10^3/uL (4.4-10.8)
--- NOTE | 2024-12-10 16:00 | DI.RAD_ITS ---
Exam(s) XR CHEST 2V PA LATERAL EXAM: XR CHEST 2V PA LATERAL CLINICAL HISTORY: CP TECHNIQUE: 2D digital imaging was performed of the chest. Two images were obtained. PA and lateral views were obtained. COMPARISON: CR XR CHEST 2V PA LATERAL from 11/15/2024 FINDINGS: There is poor inspiration. MEDIASTINUM: Normal. HEART: Normal. PULMONARY VASCULATURE: Normal. LUNGS: There are increased lung markings in the left lung base. Right lung is clear. PLEURAL SPACE: No pleural effusion or pneumothorax. BONE:Within normal limits for the patient's age. OTHER FINDINGS:Normal. IMPRESSION: Increased interstitial markings in the left lung base which may represent atelectasis or pneumonia. Please correlate clinically. DATA REPOSITORY: RADIATION DOSE DELIVERED:
[2024-12-10 16:07] LABS: ALT 22 U/L (16-63); AST 13 U/L (15-37); Albumin 3.3 g/dL (3.4-5.0); Alkaline Phosphatase 66 U/L (46-116); Anion Gap 4.6 mmol/L (3-11); BUN 6 mg/dL (7-18); Bilirubin, Total 0.46 mg/dL (0.2-1.0); CO2 32.4 mmol/L (21.0-32.0); Calcium 8.8 mg/dL (8.5-10.1); Chloride 102 mmol/L (98-107); Glucose 99 mg/dL (74-106); Magnesium 1.5 mg/dL (1.8-2.4); Potassium 4.2 mmol/L (3.5-5.1); Sodium 139 mmol/L (136-145); Total Protein 7.3 g/dL (6.4-8.2); Troponin I 8 ng/L (<or=76)
[2024-12-10 16:10] LABS: Lipase < 6 U/L (<78)
[2024-12-10] MEDS: Mylanta Suspension 30 ML CUP PO (16:17)
--- NOTE | 2024-12-10 17:09 | W.ED.GENAD ---
Discharge Plan Disposition Patient Disposition: Home Condition: Stable Discharge Details Clinical Impression: Chest pain due to GERD, Hypomagnesemia, Depression Primary Care Provider: Brandon Foster ED Provider: Katarzyna Jennings Home Meds and New Rx's Prescriptions: No Action gabapentin 300 mg capsule 300 mg PO QID bupropion HCl 75 mg tablet 150 mg PO DAILY Rx Instructions: administer 6 hours apart sumatriptan succinate 100 mg tablet See Rx Instructions PO .COMPLEX Qty: 9 5RF Rx Instructions: take 1 tab at onset of headache; if no relief, may repeat 1 tab after at least 2 hrs; max = 2 tabs/24 hrs PO Nurtec ODT 75 mg tablet,disintegrating 75 mg PO ONCE PRN (Reason: migraine headache) Qty: 8 5RF Rx Instructions: as a single dose; no more than 1 tab per day Emgality Pen 120 mg/mL pen injector 120 mg subcut QMONTH Qty: 1 11RF Claritin Liqui-Gel 10 MG capsule 1 cap PO DAILY Qty: 90 metformin 500 mg tablet 500 mg PO BID fluoxetine 10 mg capsule See Rx Instructions PO .COMPLEX Patient Comments: Pt states he takes two tablets per day in the AM 11/15/24 - ML Rx Instructions: 5 mg orally AM; 10 mg afaternoon, 20 mg HS per PCP list 09/24/24 fluoxetine 40 mg capsule 80 mg PO DAILY multivitamin Tablet 1 tab PO DAILY clonazepam 0.5 mg tablet See Rx Instructions .ROUTE .COMPLEX Rx Instructions: 1 tab in AM, 1 tab at Noon and 2 tab QHS simvastatin 80 mg tablet 80 mg PO DAILY Patient Comments: Take 1 tablet by mouth once a day ondansetron HCl 4 mg tablet 4 mg PO Q8H PRN Patient Comments: Take 1 tablet by mouth every eight hours as needed as directed benztropine 0.5 MG tablet 0.5 mg PO BID aspirin,buffd-calcium carb-mag 325 MG tablet 325 mg PO DAILY lactulose 10 gram/15 mL solution 20 g PO DIRECTED PRN Patient Comments: TAKE ONE TO TWO TABLESPOONS BY MOUTH NEEDED WHEN 3 DAYS PASS WITHOUT BOWEL MOVEMENT albuterol sulfate 90 mcg/actuation aerosol powdr breath activated 2 inh IH Q6H PRN (Reason: shortness of breath or wheezing) Qty: 1 0RF atenolol 25 mg tablet 75 mg PO DAILY Patient Comments: Take 3 tablet by mouth once a day Invega Sustenna 117 mg/0.75 mL syringe 117 mg IM Q30D divalproex [Depakote ER] 500 mg tablet extended release 24 hr 500 mg PO ONCE omeprazole 40 mg capsule,delayed release(DR/EC) 40 mg PO DAILY Patient Comments: TAKE 1 CAPSULE BY MOUTH DAILY FOR HEARTBURN Discharge Instructions Instructions: Acid reflux and GERD in adults Additional Instructions: You are seen in the emergency department today for evaluation of anxiety and acid reflux-like pain, probably due to your GERD. You did have a cardiac workup that was reassuring and showed no sign of heart attack, and received a dose of Mylanta, medication which can improve GI upset. You need to continue to take all of your medications as prescribed, including your omeprazole. Please follow-up with your primary care provider in the next few days to discuss this visit and any symptoms that change, worsen, or persist. Thank you for allowing us to be part of your care. Discharge Data Discharge Date/Time-TO BE ENTERED AT DEPARTURE: 12/10/24 17:15 HPI General Mode of arrival: EMS. Date/Time Provider Initiated Documentation: 12/10/24 15:44. Limitations to Documentation: no limitations. Information obtained by: patient, EMS and old records reviewed. HPI Narrative: HPI: This is a 59-year-old male patient with a past medical history significant for anxiety and depression, frequent visits for chest pain without history of HI, and history of GERD, hypercholesterolemia, who is presenting for evaluation today of increased anxiety and heartburn. Patient was brought in by EMS, and he states that around 1 AM he started to feel quite anxious, because he had a bad interaction in the grocery store yesterday. He states that today he did take his prescribed Ativan for anxiety and feels that it did help a little bit. He is continuing to feel a burning sensation in his throat, has been taking his omeprazole. He states that his burning sensation gets better when he eats or drinks something. The the patient denies suicidal or homicidal ideation, has a safe place to reside. Exam: Gen: Awake and alert, in no apparent distress HEENT: Non-icteric sclera Neck: Supple Lungs: No apparent respiratory distress, normal respiratory effort. Lung sounds clear CV: Appears well perfused, heart with regular rate and rhythm Abdomen: Non-distended MSK: Moves 4 extremities without apparent limitation in ROM. No peripheral edema Skin: Visualized skin without rashes, cyanosis. Neuro: Normal Gait, no obvious focal deficits or facial asymmetry. Speaks in full, clear sentences. Psych: Appropriate for situation. MDM: This is a 59-year-old male patient presenting for evaluation of anxiety and heartburn-like pain. Differential includes but is not limited to primary psychiatric disturbance, GERD, esophagitis, peptic ulcer disease. I did consider chest pain etiologies including ACS, pericarditis, myocarditis, chest wall pain. The patient has had numerous workups for same, and I have a low concern for aortic pathology. I considered pancreatitis. No vomiting to suggest Boerhaave's. Will obtain an EKG, chest x-ray, and laboratory studies to include CBC, CMP, magnesium, troponin. I will also provide the patient with a dose of Mylanta for symptomatic management. ED Course: EKG reviewed by myself, showing no acute ischemia, interval abnormalities, or ectopy. I reviewed the patient's laboratory studies, he has no leukocytosis, has a stable anemia which decreases my concern for active GI bleed. No metabolic or electrolyte derangements appreciated other than some low magnesium which has been noted on prior evaluations. Troponin was negative and lipase was low. On reassessment the patient reports that his heartburn has entirely resolved, and he is desiring of discharge home. As he is chest pain-free, has a nonischemic EKG and a negative troponin I feel that this is reasonable, and counseled him to follow-up with his primary care provider with any ongoing concerns. At this time, the patient has had a full medical evaluation and is safe for discharge to home. They are hemodynamically stable, ambulatory, and tolerating PO. They are understanding of the follow-up plan and return precautions. They left our facility without incident. Katarzyna Jennings MD Related Data Home Medications ?Medication ?Instructions ?Recorded ?Confirmed loratadine 10 mg capsule (Claritin 1 cap PO DAILY #90 tabs 12/16/14 12/10/24 Liqui-Gel) aspirin,buffered (calcium 325 mg PO DAILY 11/18/16 12/10/24 carbonate-magnesium) 325 mg tablet benztropine 0.5 mg tablet 0.5 mg PO BID 11/18/16 12/10/24 lactulose 10 gram/15 mL oral 20 g PO DIRECTED PRN 10/03/20 12/10/24 solution albuterol sulfate 90 mcg/actuation 2 inh inhalation Q6H PRN shortness 12/15/20 12/10/24 breath activated powder inhaler of breath or wheezing #1 ea multivitamin 1 tab PO DAILY 01/26/21 12/10/24 clonazepam 0.5 mg tablet See Rx Instructions .Route .COMPLEX 03/04/23 12/10/24 gabapentin 300 mg capsule 300 mg PO QID 03/27/23 12/10/24 atenolol 25 mg tablet 75 mg PO DAILY 01/31/24 12/10/24 divalproex 500 mg tablet,extended 500 mg PO ONCE 01/31/24 12/10/24 release 24 hr (Depakote ER) omeprazole 40 mg capsule,delayed 40 mg PO DAILY 01/31/24 12/10/24 release paliperidone palmitate 117 mg/0.75 117 mg IM Q30D 01/31/24 12/10/24 mL intramuscular syringe ([facility] [place] [facility] simvastatin 80 mg tablet 80 mg PO DAILY 03/08/24 12/10/24 ondansetron HCl 4 mg tablet 4 mg PO Q8H PRN 07/22/24 12/10/24 bupropion HCl 75 mg tablet 150 mg PO DAILY 08/04/24 12/10/24 galcanezumab-gnlm 120 mg/mL 120 mg subcut QMONTH #1 mL 08/04/24 12/10/24 subcutaneous pen injector (Emgality Pen) rimegepant 75 mg disintegrating 75 mg PO ONCE PRN migraine 08/04/24 12/10/24 tablet (Nurtec ODT) headache #8 tabs sumatriptan succinate 100 mg tablet See Rx Instructions PO .COMPLEX #9 08/04/24 12/10/24 tabs fluoxetine 10 mg capsule See Rx Instructions PO .COMPLEX 09/24/24 12/10/24 fluoxetine 40 mg capsule 80 mg PO DAILY 09/24/24 12/10/24 metformin 500 mg tablet 500 mg PO BID 09/24/24 12/10/24 Previous Rx's ?Medication ?Instructions ?Recorded albuterol sulfate 90 mcg/actuation 2 inh inhalation Q6H PRN shortness 12/15/20 breath activated powder inhaler of breath or wheezing #1 ea galcanezumab-gnlm 120 mg/mL 120 mg subcut QMONTH #1 mL 08/04/24 subcutaneous pen injector (Emgality Pen) rimegepant 75 mg disintegrating 75 mg PO ONCE PRN migraine 08/04/24 tablet (Nurtec ODT) headache #8 tabs sumatriptan succinate 100 mg tablet See Rx Instructions PO .COMPLEX #9 08/04/24 tabs Allergies Allergy/AdvReac Type Severity Reaction Status Date / Time buspirone Allergy Other (See Verified 12/10/24 15:34 Comment) paliperidone Allergy Other (See Verified 12/10/24 15:34 Comment) paroxetine HCl (From Paxil) Allergy Other (See Verified 12/10/24 15:34 Comment) sertraline Allergy Other (See Verified 12/10/24 15:34 Comment) ziprasidone (From Geodon) Allergy Other (See Verified 12/10/24 15:34 Comment) aripiprazole (From Abilify) AdvReac Intermediate INVOLUNTARY Verified 12/10/24 15:34 MUSCLE MOVEMENTS mirtazapine AdvReac Intermediate INVOLUNTARY Verified 12/10/24 15:34 MUSCLE MOVEMENTS risperidone AdvReac Intermediate INVOLUNTARY Verified 12/10/24 15:34 MUSCLE MOVEMENTS enviornmental Allergy Mild Wheezing Uncoded 12/10/24 15:34 General Stated Complaint: Anxiety CARLOS: 3 Course Vital Signs Vital signs: Vital Signs Temperature 36.8 C 12/10/24 15:25 Pulse 79 12/10/24 15:25 Respiratory Rate 18 12/10/24 15:25 Blood Pressure 168/91 H 12/10/24 15:25 Pulse Oximetry 96 12/10/24 15:25 Temperature 36.8 C 12/10/24 15:25 Temperature Source Oral 12/10/24 15:25 Pulse 68 12/10/24 16:50 Pulse 69 12/10/24 16:50 Respiratory Rate 14 12/10/24 16:50 Respiratory Effort Short of Breath, Labored 12/10/24 15:35 Blood Pressure 147/81 H 12/10/24 16:46 Blood Pressure Mean 104 12/10/24 16:46 Blood Pressure Position Sitting 12/10/24 15:25 Pulse Oximetry 98 12/10/24 16:50 Oxygen Delivery Method Room Air 12/10/24 15:25 Oxygen Flow Rate 0 12/10/24 15:25 Pain Level 10 12/10/24 15:25 Lab/Test Results Lab/Test Results: Laboratory Tests Range/Units 12/10/24 12/10/24 15:43 15:44 WBC (4.4-10.8) 10^3/uL 4.26 L RBC (4.36-5.78) 10^6/uL 3.31 L Hgb (13.5-17.5) g/dL 10.4 L Hct (40.0-50.0) % 31.0 L MCV (80-95) fL 94 MCH (27.0-33.0) pg 31.4 MCHC (32.0-36.0) % 33.5 RDW (11.8-14.1) % 12.9 Plt Count (130-400) 10^3/uL 139 MPV (8.0-11.0) fL 8.8 Immature Gran % % 0.2 Neutrophils % % 64.2 Lymphocytes % % 22.3 Monocytes % % 11.7 Eosinophils % % 1.6 Basophils % % 0.0 Nucleated RBC % (0.0-0.3) % 0.0 Absolute Neutrophils (1.2-6.7) 10^3/uL 2.73 Absolute Lymphocytes (1.2-3.4) 10^3/uL 0.95 L Absolute Monocytes (0.1-0.8) 10^3/uL 0.50 Absolute Eosinophils (0.0-0.7) 10^3/uL 0.07 Absolute Basophils (0.0-0.2) 10^3/uL 0.00 Sodium (136-145) mmol/L 139 Potassium (3.5-5.1) mmol/L 4.2 Chloride (98-107) mmol/L 102 Carbon Dioxide (21.0-32.0) mmol/L 32.4 H Anion Gap (3-11) mmol/L 4.6 BUN (7-18) mg/dL 6 L Creatinine (0.70-1.30) mg/dL 1.0 Est GFR (CKD-EPI 2020) (mL/min/1.73m2) 86.70 Glucose (74-106) mg/dL 99 Calcium (8.5-10.1) mg/dL 8.8 Magnesium (1.8-2.4) mg/dL 1.5 L Total Bilirubin (0.2-1.0) mg/dL 0.46 AST (15-37) U/L 13 L ALT (16-63) U/L 22 Alkaline Phosphatase (46-116) U/L 66 Troponin I (<or=76) ng/L 8 Total Protein (6.4-8.2) g/dL 7.3 Albumin (3.4-5.0) g/dL 3.3 L Lipase (<78) U/L < 6 Medical Decision Making Quality:SDOH Health Related Social Needs: No Data to Display PFSH All Active Problems (Updated 12/10/24 @ 17:10 by Katarzyna Jennings MD) Chest pain due to GERD (Acute) Nausea (Acute) Hyponatremia (Acute) Hypomagnesemia (Acute) Visit for suture removal (Acute) Knee pain (Acute) Dental caries (Acute) Nicotine dependence (Acute) Dyspnea on exertion (Acute) Shortness of breath (Acute) Hypercholesterolemia (Chronic 09/07/14) pt insists on lipitor 80 mg due to family hx Depression (Acute 10/02/14) Left-sided chest wall pain (Acute) Chest pain (Acute) Chronic headache (Acute) Migraine headache without aura (Acute) Migraine (Chronic) Poor dentition (Acute) Tobacco use disorder (Chronic) started 2013 1.5 ppd, pipe 1-7/week, QUIT LATE OCT 2021 Allergic rhinitis (Chronic) lortadine Hiatal hernia (Chronic) protonix not effective, nexium works better 02/12/18 Anemia (Chronic) Broken teeth (Chronic) Drug-seeking behavior (Chronic ~09/20/21) Requests Ritalin from providers Medication overuse headache (Acute) Medical History Obesity BMI 52 Hypertension pt requests brand name Tenormin vs atenolol 04/02/18 GERD (gastroesophageal reflux disease) (09/07/14) Diabetes mellitus type 2 in obese (09/09/14) Hypothyroidism (acquired) (09/07/14) Schizoaffective disorder (09/07/14) Rebekah Mariscal YENI 09/2014- [facility] inpatient Trigeminal neuralgia Anxiety Mitral valve prolapse Hyperlipidemia Peripheral neuropathy Surgical History No significant past surgical history Family History Father Heart disease HI Social History Smoking/Tobacco Use Status: Former Tobacco Use Smoking risk assessment performed?: Yes Alcohol Intake: never Drug use: Never Substance use type: does not use Adopted: No Caregiver/Support person: No Foster care: No Household members: none Housing: apartment Number of Children: 2 number of grandchildren: 1 Communication Needs: Corrective Lenses Education Level: college Do you need help understanding health information?: Always current occupation: Unemployed/Leave of absence Sexually active: No Do you think of yourself as: Decline to provide Current gender identity: male What type of physical activity do you participate in: other Details: weight lifting Frequency: 3-4 times per week Magalie/Taoism: Anglican Seatbelt use: always Drive intox or ride w/intox motor bus 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
== END 2024-12-10 17:15 | disposition home or self-care (01) ==
PROVIDERS: Emergency Provider Emergency Medicine; PCP Family Medicine
DX: R07.9 Chest pain, unspecified (principal); K21.9 Gastro-esophageal reflux disease without esophagitis; I10 Essential (primary) hypertension; E78.5 Hyperlipidemia, unspecified; E03.9 Hypothyroidism, unspecified; E83.42 Hypomagnesemia; F32.A Depression, unspecified
CPT/HCPCS: 80053; 83690; 93005; 99285; 71046; 83735; 84484; 85025; 93010; 99284

== ENCOUNTER 2024-12-12 15:28 | Emergency (ER) | payer MEDICAID, SELFPAY ==
--- NOTE | 2024-12-12 15:15 | RT.EKG_ITS ---
APPROVED REPORT Exam: Resting ECG Reason for Exam: Dyspnea Patient Location: E HR:72 bpm ECG Measurements Heart Rate 72 AXIS [place] 192 P 42 QRSd 104 QRS 15 QT 401 T 72 QTc 440 Conclusion Sinus rhythm...normal P axis, V-rate 60- 99 Nonspecific T abnormalities, lateral leads...T <-0.10mV, I aVL V5 V6
[2024-12-12 15:32] VITALS: BP 143/79; PULSE 73; RESP 15; O2SAT 96
[2024-12-12 15:35] VITALS: BP 143/79; PULSE 73; RESP 15; O2SAT 96
--- NOTE | 2024-12-12 15:58 | W.ED.GENAD ---
Discharge Plan Disposition Patient Disposition: Home Discharge Details Clinical Impression: Nausea, vomiting, and diarrhea Primary Care Provider: rBandon Foster ED Provider: Ignacia Lopez Home Meds and New Rx's Prescriptions: No Action gabapentin 300 mg capsule 300 mg PO QID bupropion HCl 75 mg tablet 150 mg PO DAILY Rx Instructions: administer 6 hours apart sumatriptan succinate 100 mg tablet See Rx Instructions PO .COMPLEX Qty: 9 5RF Rx Instructions: take 1 tab at onset of headache; if no relief, may repeat 1 tab after at least 2 hrs; max = 2 tabs/24 hrs PO Nurtec ODT 75 mg tablet,disintegrating 75 mg PO ONCE PRN (Reason: migraine headache) Qty: 8 5RF Rx Instructions: as a single dose; no more than 1 tab per day Emgality Pen 120 mg/mL pen injector 120 mg subcut QMONTH Qty: 1 11RF Claritin Liqui-Gel 10 MG capsule 1 cap PO DAILY Qty: 90 metformin 500 mg tablet 500 mg PO BID fluoxetine 10 mg capsule See Rx Instructions PO .COMPLEX Patient Comments: Pt states he takes two tablets per day in the AM 11/15/24 - ML Rx Instructions: 5 mg orally AM; 10 mg afaternoon, 20 mg HS per PCP list 09/24/24 fluoxetine 40 mg capsule 80 mg PO DAILY multivitamin Tablet 1 tab PO DAILY clonazepam 0.5 mg tablet See Rx Instructions .ROUTE .COMPLEX Rx Instructions: 1 tab in AM, 1 tab at Noon and 2 tab QHS simvastatin 80 mg tablet 80 mg PO DAILY Patient Comments: Take 1 tablet by mouth once a day ondansetron HCl 4 mg tablet 4 mg PO Q8H PRN Patient Comments: Take 1 tablet by mouth every eight hours as needed as directed benztropine 0.5 MG tablet 0.5 mg PO BID aspirin,buffd-calcium carb-mag 325 MG tablet 325 mg PO DAILY lactulose 10 gram/15 mL solution 20 g PO DIRECTED PRN Patient Comments: TAKE ONE TO TWO TABLESPOONS BY MOUTH NEEDED WHEN 3 DAYS PASS WITHOUT BOWEL MOVEMENT albuterol sulfate 90 mcg/actuation aerosol powdr breath activated 2 inh IH Q6H PRN (Reason: shortness of breath or wheezing) Qty: 1 0RF atenolol 25 mg tablet 75 mg PO DAILY Patient Comments: Take 3 tablet by mouth once a day Invega Sustenna 117 mg/0.75 mL syringe 117 mg IM Q30D divalproex [Depakote ER] 500 mg tablet extended release 24 hr 500 mg PO ONCE omeprazole 40 mg capsule,delayed release(DR/EC) 40 mg PO DAILY Patient Comments: TAKE 1 CAPSULE BY MOUTH DAILY FOR HEARTBURN Discharge Instructions Additional Instructions: Your vomiting and diarrhea is likely due to a viral illness. Please call your primary care provider if you are not feeling significantly better by Sunday. Continue taking your medications as prescribed. You may use the Zofran tablets every 8 hours as needed for nausea/vomiting. Stay well-hydrated, drinking plenty of electrolyte rich fluids. Gatorlyte Pedialyte, and broths are good options. Advance diet slowly as tolerated, starting with dry rice, toast, and crackers Return to emergency care if develop new chest pains, difficulty breathing, uncontrollable vomiting, severe abdominal pain, blood in your stool or vomit, episodes of passing out, or if you are very worried and need to be rechecked again immediately Referrals: Brandon Foster [Primary Care Provider] - [facility] General Date/Time Provider Initiated Documentation: 12/12/24 15:40. HPI Narrative: Aveyr is a 59year old male who presents to the emergency department today for evaluation of nausea/vomiting, generalized abdominal discomfort, and diarrhea. He reports that symptoms started this morning around 1 AM, he had multiple episodes of vomiting and 3 episodes of diarrhea, no blood in stool or emesis. He also reports that he had a panic attack this morning, with anxiety and chest discomfort. He reports symptoms felt better after talking with [facility] chest, but he was advised to come to the emergency department for evaluation. Admits to chills, congestion, sore throat, and mild cough unchanged from baseline; as well as a headache that has since resolved. Denies fevers, current chest pain, shortness of breath, change in bladder function. He reports he has taken his medications as prescribed. He reports that he recently had his clonazepam dosing decreased by 0.5 mg each dose, feels that this may not be as effective for him past medical history is significant for anxiety/depression, frequent visits to ED for chest pain without history of [place], history of GERD, HLD, and migraine headaches. Physical exam reassuring. Avery is alert and oriented, easily conversational. Moist mucous membranes. Easy work of breathing, lungs are clear bilaterally. Normal heart sounds. Abdomen is soft, nondistended, mild generalized discomfort with palpation, no rigidity or guarding. D/dx includes but is not limited to: Anxiety, viral gastroenteritis, dehydration, electrolyte imbalance. Low suspicion for ACS based on reassuring history. I independently interpreted the following tests: EKG reassuring, normal sinus rhythm, rate 72. No changes consistent with acute ischemia. Normal intervals. CBC, CMP, lipase all reassuring. Troponins flat. While in the emergency department, Avery received Zofran for nausea, famotidine/mylanta for possible GERD, lorazepam for anxiety, and Tylenol for knee discomfort. Avery reports he is feeling much better after medications, abdominal discomfort has resolved and he has been able to sip on soda and eat some crackers. Overall cardiac workup today reassuring. Likely viral gastroenteritis. Reviewed discharge instructions with patient, including advancing diet slowly as tolerated, use of Zofran as needed for nausea/vomiting, symptomatic management and red flags indicating need for return to emergency care Related Data Home Medications ?Medication ?Instructions ?Recorded ?Confirmed loratadine 10 mg capsule (Claritin 1 cap PO DAILY #90 tabs 12/16/14 12/12/24 Liqui-Gel) aspirin,buffered (calcium 325 mg PO DAILY 11/18/16 12/12/24 carbonate-magnesium) 325 mg tablet benztropine 0.5 mg tablet 0.5 mg PO BID 11/18/16 12/12/24 lactulose 10 gram/15 mL oral 20 g PO DIRECTED PRN 10/03/20 12/12/24 solution albuterol sulfate 90 mcg/actuation 2 inh inhalation Q6H PRN shortness 12/15/20 12/12/24 breath activated powder inhaler of breath or wheezing #1 ea multivitamin 1 tab PO DAILY 01/26/21 12/12/24 clonazepam 0.5 mg tablet See Rx Instructions .Route .COMPLEX 03/04/23 12/12/24 gabapentin 300 mg capsule 300 mg PO QID 03/27/23 12/12/24 atenolol 25 mg tablet 75 mg PO DAILY 01/31/24 12/12/24 divalproex 500 mg tablet,extended 500 mg PO ONCE 01/31/24 12/12/24 release 24 hr (Depakote ER) omeprazole 40 mg capsule,delayed 40 mg PO DAILY 01/31/24 12/12/24 release paliperidone palmitate 117 mg/0.75 117 mg IM Q30D 01/31/24 12/12/24 mL intramuscular syringe (Invega Sustenna) simvastatin 80 mg tablet 80 mg PO DAILY 03/08/24 12/12/24 ondansetron HCl 4 mg tablet 4 mg PO Q8H PRN 07/22/24 12/12/24 bupropion HCl 75 mg tablet 150 mg PO DAILY 08/04/24 12/12/24 galcanezumab-gnlm 120 mg/mL 120 mg subcut QMONTH #1 mL 08/04/24 12/12/24 subcutaneous pen injector (Emgality Pen) rimegepant 75 mg disintegrating 75 mg PO ONCE PRN migraine 08/04/24 12/12/24 tablet (Nurtec ODT) headache #8 tabs sumatriptan succinate 100 mg tablet See Rx Instructions PO .COMPLEX #9 08/04/24 12/12/24 tabs fluoxetine 10 mg capsule See Rx Instructions PO .COMPLEX 09/24/24 12/12/24 fluoxetine 40 mg capsule 80 mg PO DAILY 09/24/24 12/12/24 metformin 500 mg tablet 500 mg PO BID 09/24/24 12/12/24 Previous Rx's ?Medication ?Instructions ?Recorded albuterol sulfate 90 mcg/actuation 2 inh inhalation Q6H PRN shortness 12/15/20 breath activated powder inhaler of breath or wheezing #1 ea galcanezumab-gnlm 120 mg/mL 120 mg subcut QMONTH #1 mL 08/04/24 subcutaneous pen injector (Emgality Pen) rimegepant 75 mg disintegrating 75 mg PO ONCE PRN migraine 08/04/24 tablet (Nurtec ODT) headache #8 tabs sumatriptan succinate 100 mg tablet See Rx Instructions PO .COMPLEX #9 08/04/24 tabs Allergies Allergy/AdvReac Type Severity Reaction Status Date / Time buspirone Allergy Other (See Verified 12/12/24 15:31 Comment) paliperidone Allergy Other (See Verified 12/10/24 15:34 Comment) paroxetine HCl (From Paxil) Allergy Other (See Verified 12/12/24 15:31 Comment) sertraline Allergy Other (See Verified 12/12/24 15:31 Comment) ziprasidone (From Geodon) Allergy Other (See Verified 12/12/24 15:31 Comment) aripiprazole (From Abilify) AdvReac Intermediate INVOLUNTARY Verified 12/12/24 15:31 MUSCLE MOVEMENTS mirtazapine AdvReac Intermediate INVOLUNTARY Verified 12/12/24 15:31 MUSCLE MOVEMENTS risperidone AdvReac Intermediate INVOLUNTARY Verified 12/12/24 15:31 MUSCLE MOVEMENTS enviornmental Allergy Mild Wheezing Uncoded 12/12/24 15:31 General Stated Complaint: Abd Prob CARLOS: 3 Review of Systems Narrative: see HPI Exam Const General: cooperative, healthy appearing, comfortable, no acute distress and well developed Nutritional Appearance: overweight Orientation: alert and oriented x3 HENMT Ears: hearing grossly normal bilaterally General nose exam: external nose normal Face and sinus: normal facial exam Mouth: oral mucosae normal and moist mucous membranes Resp Effort & Inspection: normal respiratory effort and able to speak in complete sentences Auscultation: clear to auscultation bilaterally Cardio Rate: regular rate Rhythm: regular rhythm GI Inspection: normal to inspection and non-distended Palpation: soft, not firm, no guarding, not rigid and nontender Auscultation: normoactive bowel sounds Skin General skin exam: no rashes or lesions noted Neuro General: gait normal, tone normal and moves all extremities Course Vital Signs Vital signs: Vital Signs Pulse 73 12/12/24 15:32 Respiratory Rate 15 12/12/24 15:32 Blood Pressure 143/79 H 12/12/24 15:32 Pulse Oximetry 96 12/12/24 15:32 Pulse 73 12/12/24 15:35 Respiratory Rate 15 12/12/24 15:35 Blood Pressure 143/79 H 12/12/24 15:35 Blood Pressure Position Sitting 12/12/24 15:35 Pulse Oximetry 96 12/12/24 15:35 Oxygen Delivery Method Room Air 12/12/24 15:35 Oxygen Flow Rate 0 12/12/24 15:35 Medical Decision Making Quality:SDOH Health Related Social Needs: No Data to Display PFSH All Active Problems (Updated 12/12/24 @ 18:02 by Ignacia Brink) Nausea, vomiting, and diarrhea (Acute) Chest pain due to GERD (Acute) Nausea (Acute) Hyponatremia (Acute) Hypomagnesemia (Acute) Visit for suture removal (Acute) Knee pain (Acute) Dental caries (Acute) Nicotine dependence (Acute) Dyspnea on exertion (Acute) Shortness of breath (Acute) Hypercholesterolemia (Chronic 09/07/14) pt insists on lipitor 80 mg due to family hx Depression (Acute 10/02/14) Left-sided chest wall pain (Acute) Chest pain (Acute) Chronic headache (Acute) Migraine headache without aura (Acute) Migraine (Chronic) Poor dentition (Acute) Tobacco use disorder (Chronic) started 2013 1.5 ppd, pipe 1-7/week, QUIT LATE OCT 2021 Allergic rhinitis (Chronic) lortadine Hiatal hernia (Chronic) protonix not effective, nexium works better 02/12/18 Anemia (Chronic) Broken teeth (Chronic) Drug-seeking behavior (Chronic ~09/20/21) Requests Ritalin from providers Medication overuse headache (Acute) Medical History Obesity BMI 52 Hypertension pt requests brand name Tenormin vs atenolol 04/02/18 GERD (gastroesophageal reflux disease) (09/07/14) Diabetes mellitus type 2 in obese (09/09/14) Hypothyroidism (acquired) (09/07/14) Schizoaffective disorder (09/07/14) FREDDIE Thakkar 09/2014- [facility] inpatient Trigeminal neuralgia Anxiety Mitral valve prolapse Hyperlipidemia Peripheral neuropathy Surgical History No significant past surgical history Family History Father Heart disease [place] Social History Smoking/Tobacco Use Status: Former Tobacco Use Smoking risk assessment performed?: Yes Alcohol Intake: never Drug use: Never Substance use type: does not use Adopted: No Caregiver/Support person: No Foster care: No Household members: none Housing: apartment Number of Children: 2 number of grandchildren: 1 Communication Needs: Corrective Lenses Education Level: college Do you need help understanding health information?: Always current occupation: Unemployed/Leave of absence Sexually active: No Do you think of yourself as: Decline to provide Current gender identity: male What type of physical activity do you participate in: other Details: weight lifting Frequency: 3-4 times per week Magalie/Congregational: Congregation Seatbelt use: always Drive intox or ride w/intox set key 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
[2024-12-12 16:31] LABS: Abs Immature Grans 0.01 10^3/uL (0.0-0.06); Absolute Basophil Count 0.02 10^3/uL (0.0-0.2); Absolute Eosinophil Count 0.13 10^3/uL (0.0-0.7); Absolute Lymphocyte Count 1.12 10^3/uL (1.2-3.4); Absolute Monocyte Count 0.56 10^3/uL (0.1-0.8); Absolute Neutrophil Count 2.74 10^3/uL (1.2-6.7); Basophils % 0.4 %; Eosinophils % 2.8 %; HCT 33.4 % (40.0-50.0); HGB 11.1 g/dL (13.5-17.5); Immature Grans % 0.2 %; Lymphocytes % 24.5 %; MCH 31.5 pg (27.0-33.0); MCHC 33.2 % (32.0-36.0); MCV 95 fL (80-95); MPV 8.9 fL (8.0-11.0); Monocytes % 12.2 %; Neutrophils % 59.9 %; Platelet Count 112 10^3/uL (130-400); RBC 3.52 10^6/uL (4.36-5.78); RDW 13.1 % (11.8-14.1); RDW-SD 44.6 fL; WBC 4.58 10^3/uL (4.4-10.8)
[2024-12-12] MEDS: FAMOTIDINE 20 MG in Normal Saline 100 ML 400 MG IVPB (16:36)
[2024-12-12] MEDS: Ondansetron 4 MG/2 ML VIAL IVP (16:37)
[2024-12-12] MEDS: LORazepam 0.5 MG TAB PO (16:37)
[2024-12-12] MEDS: Mylanta Suspension 30 ML CUP 20 ML PO (16:38)
[2024-12-12 17:01] LABS: ALT 22 U/L (16-63); AST 20 U/L (15-37); Albumin 3.5 g/dL (3.4-5.0); Alkaline Phosphatase 73 U/L (46-116); Anion Gap 6.6 mmol/L (3-11); BUN 10 mg/dL (7-18); Bilirubin, Total 0.42 mg/dL (0.2-1.0); CO2 29.4 mmol/L (21.0-32.0); CREATININE 0.9 mg/dL (0.70-1.30); Chloride 103 mmol/L (98-107); Estimated GFR 98.38 (mL/min/1.73m2); Glucose 100 mg/dL (74-106); Magnesium 1.8 mg/dL (1.8-2.4); Potassium 4.1 mmol/L (3.5-5.1); Sodium 139 mmol/L (136-145); Troponin I 12 ng/L (<or=76)
[2024-12-12 17:14] LABS: Lipase 9 U/L (<78)
[2024-12-12 17:56] LABS: Troponin I 12 ng/L (<or=76)
[2024-12-12 18:19] VITALS: BP 118/50; PULSE 64; RESP 17; TEMP 37.1; O2SAT 98
[2024-12-12] MEDS: Ondansetron O.D.T. 4 MG TABEF, 3 TABS/BTL PO (18:35)
[2024-12-12] MEDS: Acetaminophen 325 MG TAB 650 MG PO (18:35)
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
== END 2024-12-12 18:25 | disposition home or self-care (01) ==
PROVIDERS: Emergency Provider Nurse Practitioner Family; PCP Family Medicine
DX: R11.2 Nausea with vomiting, unspecified (principal); R19.7 Diarrhea, unspecified
CPT/HCPCS: 00123; 36415; 80053; 83690; 93005; 96127; 96365; 96375; 99284; 83735; 84484; 85025; 93010; 99283; J2405

== ENCOUNTER 2024-12-12 18:34 | Emergency (ER) | payer MEDICAID, SELFPAY ==
[2024-12-12 18:54] VITALS: BP 160/92; PULSE 66; RESP 16; TEMP 36.6; O2SAT 98
--- NOTE | 2024-12-12 18:55 | W.ED.GENAD ---
Discharge Plan Discharge Details Chief Complaint: PsychEval Primary Care Provider: Brandon Foster ED Provider: Ignacia Lopez Home Meds and New Rx's Prescriptions: No Action gabapentin 300 mg capsule 300 mg PO QID bupropion HCl 75 mg tablet 150 mg PO DAILY Rx Instructions: administer 6 hours apart sumatriptan succinate 100 mg tablet See Rx Instructions PO .COMPLEX Qty: 9 5RF Rx Instructions: take 1 tab at onset of headache; if no relief, may repeat 1 tab after at least 2 hrs; max = 2 tabs/24 hrs PO Nurtec ODT 75 mg tablet,disintegrating 75 mg PO ONCE PRN (Reason: migraine headache) Qty: 8 5RF Rx Instructions: as a single dose; no more than 1 tab per day Emgality Pen 120 mg/mL pen injector 120 mg subcut QMONTH Qty: 1 11RF Claritin Liqui-Gel 10 MG capsule 1 cap PO DAILY Qty: 90 metformin 500 mg tablet 500 mg PO BID fluoxetine 10 mg capsule See Rx Instructions PO .COMPLEX Patient Comments: Pt states he takes two tablets per day in the AM 11/15/24 - ML Rx Instructions: 5 mg orally AM; 10 mg afaternoon, 20 mg HS per PCP list RH 09/24/24 fluoxetine 40 mg capsule 80 mg PO DAILY multivitamin Tablet 1 tab PO DAILY clonazepam 0.5 mg tablet See Rx Instructions .ROUTE .COMPLEX Rx Instructions: 1 tab in AM, 1 tab at Noon and 2 tab QHS simvastatin 80 mg tablet 80 mg PO DAILY Patient Comments: Take 1 tablet by mouth once a day ondansetron HCl 4 mg tablet 4 mg PO Q8H PRN Patient Comments: Take 1 tablet by mouth every eight hours as needed as directed benztropine 0.5 MG tablet 0.5 mg PO BID aspirin,buffd-calcium carb-mag 325 MG tablet 325 mg PO DAILY lactulose 10 gram/15 mL solution 20 g PO DIRECTED PRN Patient Comments: TAKE ONE TO TWO TABLESPOONS BY MOUTH NEEDED WHEN 3 DAYS PASS WITHOUT BOWEL MOVEMENT albuterol sulfate 90 mcg/actuation aerosol powdr breath activated 2 inh IH Q6H PRN (Reason: shortness of breath or wheezing) Qty: 1 0RF atenolol 25 mg tablet 75 mg PO DAILY Patient Comments: Take 3 tablet by mouth once a day Invega Sustenna 117 mg/0.75 mL syringe 117 mg IM Q30D divalproex [Depakote ER] 500 mg tablet extended release 24 hr 500 mg PO ONCE omeprazole 40 mg capsule,delayed release(DR/EC) 40 mg PO DAILY Patient Comments: TAKE 1 CAPSULE BY MOUTH DAILY FOR HEARTBURN HPI General Date/Time Provider Initiated Documentation: 12/12/24 18:42. HPI Narrative: Avery is a 59-year-old male who was evaluated in the emergency department earlier this afternoon, upon discharge [facility] Sophy called and disclosed to CIERA Carnes that Avery has been having concerning depression and had discussed inpatient admission for management of depression. Avery endorses worsening depression, but denies suicidal ideation, homicidal ideation, hallucinations, or self-harm behaviors. Physical exam reassuring. Avery is alert and oriented, no acute distress. Moist mucous membranes. Easy work of breathing, lung sounds clear bilaterally. Normal heart sounds. Abdomen is soft, nondistended, nontender to palpation. Normal gait. Moving all extremities equally. History and presentation concerning for worsening depression. Avery has an extensive psychiatric history. I independently interpreted the following tests: CBC, CMP, troponins, magnesium, and lipase all reassuring. PM meds ordered. Avery has consulted with [facility]; he is requesting inpatient placement at [facility]. Handoff report given to Dr Iraheta, overnight attending. Related Data Home Medications ?Medication ?Instructions ?Recorded ?Confirmed loratadine 10 mg capsule (Claritin 1 cap PO DAILY #90 tabs 12/16/14 12/12/24 Liqui-Gel) aspirin,buffered (calcium 325 mg PO DAILY 11/18/16 12/12/24 carbonate-magnesium) 325 mg tablet benztropine 0.5 mg tablet 0.5 mg PO BID 11/18/16 12/12/24 lactulose 10 gram/15 mL oral 20 g PO DIRECTED PRN 10/03/20 12/12/24 solution albuterol sulfate 90 mcg/actuation 2 inh inhalation Q6H PRN shortness 12/15/20 12/12/24 breath activated powder inhaler of breath or wheezing #1 ea multivitamin 1 tab PO DAILY 01/26/21 12/12/24 clonazepam 0.5 mg tablet See Rx Instructions .Route .COMPLEX 03/04/23 12/12/24 gabapentin 300 mg capsule 300 mg PO QID 03/27/23 12/12/24 atenolol 25 mg tablet 75 mg PO DAILY 01/31/24 12/12/24 divalproex 500 mg tablet,extended 500 mg PO ONCE 01/31/24 12/12/24 release 24 hr (Depakote ER) omeprazole 40 mg capsule,delayed 40 mg PO DAILY 01/31/24 12/12/24 release paliperidone palmitate 117 mg/0.75 117 mg IM Q30D 01/31/24 12/12/24 mL intramuscular syringe (Invega Sustenna) simvastatin 80 mg tablet 80 mg PO DAILY 03/08/24 12/12/24 ondansetron HCl 4 mg tablet 4 mg PO Q8H PRN 07/22/24 12/12/24 bupropion HCl 75 mg tablet 150 mg PO DAILY 08/04/24 12/12/24 galcanezumab-gnlm 120 mg/mL 120 mg subcut QMONTH #1 mL 08/04/24 12/12/24 subcutaneous pen injector (Emgality Pen) rimegepant 75 mg disintegrating 75 mg PO ONCE PRN migraine 08/04/24 12/12/24 tablet (Nurtec ODT) headache #8 tabs sumatriptan succinate 100 mg tablet See Rx Instructions PO .COMPLEX #9 08/04/24 12/12/24 tabs fluoxetine 10 mg capsule See Rx Instructions PO .COMPLEX 09/24/24 12/12/24 fluoxetine 40 mg capsule 80 mg PO DAILY 09/24/24 12/12/24 metformin 500 mg tablet 500 mg PO BID 09/24/24 12/12/24 Previous Rx's ?Medication ?Instructions ?Recorded albuterol sulfate 90 mcg/actuation 2 inh inhalation Q6H PRN shortness 12/15/20 breath activated powder inhaler of breath or wheezing #1 ea galcanezumab-gnlm 120 mg/mL 120 mg subcut QMONTH #1 mL 08/04/24 subcutaneous pen injector (Emgality Pen) rimegepant 75 mg disintegrating 75 mg PO ONCE PRN migraine 08/04/24 tablet (Nurtec ODT) headache #8 tabs sumatriptan succinate 100 mg tablet See Rx Instructions PO .COMPLEX #9 08/04/24 tabs Allergies Allergy/AdvReac Type Severity Reaction Status Date / Time buspirone Allergy Other (See Verified 12/12/24 15:31 Comment) paliperidone Allergy Other (See Verified 12/10/24 15:34 Comment) paroxetine HCl (From Paxil) Allergy Other (See Verified 12/12/24 15:31 Comment) sertraline Allergy Other (See Verified 12/12/24 15:31 Comment) ziprasidone (From Geodon) Allergy Other (See Verified 12/12/24 15:31 Comment) aripiprazole (From Abilify) AdvReac Intermediate INVOLUNTARY Verified 12/12/24 15:31 MUSCLE MOVEMENTS mirtazapine AdvReac Intermediate INVOLUNTARY Verified 12/12/24 15:31 MUSCLE MOVEMENTS risperidone AdvReac Intermediate INVOLUNTARY Verified 12/12/24 15:31 MUSCLE MOVEMENTS enviornmental Allergy Mild Wheezing Uncoded 12/12/24 15:31 General CARLOS: 3 Review of Systems Narrative: see HPI Exam Const General: cooperative, healthy appearing, comfortable, no acute distress and well developed Nutritional Appearance: well nourished and obese Orientation: alert and oriented x3 HENMT Head: normal to inspection General nose exam: external nose normal Face and sinus: normal facial exam Mouth: oral mucosae normal Resp Effort & Inspection: normal respiratory effort and able to speak in complete sentences Auscultation: clear to auscultation bilaterally Cardio Rate: regular rate Rhythm: regular rhythm GI Inspection: normal to inspection and non-distended Palpation: soft, no guarding and nontender Psych Mental Status: mental status grossly normal Speech and Movement: speech and movement normal Mood: dysthymic mood Affect: blunted Attitude: cooperative Thought Process: normal Medical Decision Making Quality:SDOH Health Related Social Needs: No Data to Display PFSH All Active Problems (Updated 12/12/24 @ 18:02 by Ignacia Brink) Nausea, vomiting, and diarrhea (Acute) Chest pain due to GERD (Acute) Nausea (Acute) Hyponatremia (Acute) Hypomagnesemia (Acute) Visit for suture removal (Acute) Knee pain (Acute) Dental caries (Acute) Nicotine dependence (Acute) Dyspnea on exertion (Acute) Shortness of breath (Acute) Hypercholesterolemia (Chronic 09/07/14) pt insists on lipitor 80 mg due to family hx Depression (Acute 10/02/14) Left-sided chest wall pain (Acute) Chest pain (Acute) Chronic headache (Acute) Migraine headache without aura (Acute) Migraine (Chronic) Poor dentition (Acute) Tobacco use disorder (Chronic) started 2013 1.5 ppd, pipe 1-7/week, QUIT LATE OCT 2021 Allergic rhinitis (Chronic) lortadine Hiatal hernia (Chronic) protonix not effective, nexium works better 02/12/18 Anemia (Chronic) Broken teeth (Chronic) Drug-seeking behavior (Chronic ~09/20/21) Requests Ritalin from providers Medication overuse headache (Acute) Medical History Obesity BMI 52 Hypertension pt requests brand name Tenormin vs atenolol 04/02/18 GERD (gastroesophageal reflux disease) (09/07/14) Diabetes mellitus type 2 in obese (09/09/14) Hypothyroidism (acquired) (09/07/14) Schizoaffective disorder (09/07/14) Rebekah Mariscal [facility] 09/2014- [facility] inpatient Trigeminal neuralgia Anxiety Mitral valve prolapse Hyperlipidemia Peripheral neuropathy Surgical History No significant past surgical history Family History Father Heart disease [place] Social History Smoking/Tobacco Use Status: Former Tobacco Use Smoking risk assessment performed?: Yes Alcohol Intake: never Drug use: Never Substance use type: does not use Adopted: No Caregiver/Support person: No Foster care: No Household members: none Housing: apartment Number of Children: 2 number of grandchildren: 1 Communication Needs: Corrective Lenses Education Level: college Do you need help understanding health information?: Always current occupation: Unemployed/Leave of absence Sexually active: No Do you think of yourself as: Decline to provide Current gender identity: male What type of physical activity do you participate in: other Details: weight lifting Frequency: 3-4 times per week Magalie/Jain: Mosque Seatbelt use: always Drive intox or ride w/intox pick up and 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
[2024-12-13 02:28] LABS: Bilirubin Negative (Negative); Blood Negative (Negative); Clarity Clear (Clear); Glucose Negative (Negative); Ketones Negative (Negative); Leukocyte Esterase Negative (Negative); Nitrite Negative (Negative); Specific Gravity 1.025 (1.005-1.025)
[2024-12-13 02:41] LABS: *AMPHETAMINES SCREEN URINE Negative (Negative); *BARBITURATES SCREEN URINE Negative (Negative); *BENZODIAZEPINES SCREEN URINE Negative (Negative); Cannabinoids THC Negative (Negative); Cocaine Screen,Urine Negative (Negative); METHADONE URINE SCREEN Negative (Negative); OPIATES URINE SCREEN Negative (Negative); Tricyclic Antidepressants Negative (Negative)
[2024-12-13] MEDS: Benztropine 1 MG TAB 0.5 MG PO ×4 (03:00→19:24)
[2024-12-13] MEDS: clonazePAM 1 MG TAB PO ×2 (03:02→19:25)
[2024-12-13] MEDS: metFORMIN 500 MG TAB PO ×2 (03:06→16:08)
[2024-12-13] MEDS: Simvastatin 40 MG TAB 80 MG PO ×2 (03:06→19:26)
[2024-12-13] MEDS: Gabapentin 300 MG CAP PO ×5 (03:07→19:26)
--- NOTE | 2024-12-13 07:42 | W.EDPROG ---
Date of service: 12/13/24 Time of Service: 08:00 Medical Decision Making In brief, this is a 59-year-old male patient presenting for evaluation of decompensated depression and anxiety and poor self-care. He is boarding voluntarily awaiting inpatient placement. Prior to my taking over their care, the patient was medically cleared, and has been resting comfortably. They have met with the social service manager and we are awaiting final dispo. They have not required any additional medications for restraint or sedation. The patient was signed out to the oncoming provider prior to final disposition. Remained hemodynamically appropriate, calm, cooperative, and comfortable while under my care. Katarzyna Jennings MD Medical Records Medical records reviewed: Yes I reviewed the patient's medical records. Lab Data Lab results reviewed: Yes I reviewed the patient's lab results. Quality:SDOH Health Related Social Needs: Health related social needs inadequate housing (Z59.1), food insecurity (Z59.41), material hardship(utilities) (Z59.12), transportation insecurity (Z59.82), problems finding work (Z56.9), feeling lonely/isolated (Z60.8) Discharge Plan Discharge Details Chief Complaint: PsychEval Primary Care Provider: Brandon Foster ED Provider: Katarzyna Jennings Home Meds and New Rx's Prescriptions: No Action gabapentin 300 mg capsule 300 mg PO QID bupropion HCl 75 mg tablet 150 mg PO DAILY Rx Instructions: administer 6 hours apart sumatriptan succinate 100 mg tablet See Rx Instructions PO .COMPLEX Qty: 9 5RF Rx Instructions: take 1 tab at onset of headache; if no relief, may repeat 1 tab after at least 2 hrs; max = 2 tabs/24 hrs PO Nurtec ODT 75 mg tablet,disintegrating 75 mg PO ONCE PRN (Reason: migraine headache) Qty: 8 5RF Rx Instructions: as a single dose; no more than 1 tab per day Emgality Pen 120 mg/mL pen injector 120 mg subcut QMONTH Qty: 1 11RF Claritin Liqui-Gel 10 MG capsule 1 cap PO DAILY Qty: 90 metformin 500 mg tablet 500 mg PO BID fluoxetine 10 mg capsule See Rx Instructions PO .COMPLEX Patient Comments: Pt states he takes two tablets per day in the AM 11/15/24 - ML Rx Instructions: 5 mg orally AM; 10 mg afaternoon, 20 mg HS per PCP list RH 09/24/24 fluoxetine 40 mg capsule 80 mg PO DAILY multivitamin Tablet 1 tab PO DAILY clonazepam 0.5 mg tablet See Rx Instructions .ROUTE .COMPLEX Rx Instructions: 1 tab in AM, 1 tab at Noon and 2 tab QHS simvastatin 80 mg tablet 80 mg PO DAILY Patient Comments: Take 1 tablet by mouth once a day ondansetron HCl 4 mg tablet 4 mg PO Q8H PRN Patient Comments: Take 1 tablet by mouth every eight hours as needed as directed benztropine 0.5 MG tablet 0.5 mg PO BID aspirin,buffd-calcium carb-mag 325 MG tablet 325 mg PO DAILY lactulose 10 gram/15 mL solution 20 g PO DIRECTED PRN Patient Comments: TAKE ONE TO TWO TABLESPOONS BY MOUTH NEEDED WHEN 3 DAYS PASS WITHOUT BOWEL MOVEMENT albuterol sulfate 90 mcg/actuation aerosol powdr breath activated 2 inh IH Q6H PRN (Reason: shortness of breath or wheezing) Qty: 1 0RF atenolol 25 mg tablet 75 mg PO DAILY Patient Comments: Take 3 tablet by mouth once a day Invega Sustenna 117 mg/0.75 mL syringe 117 mg IM Q30D divalproex [Depakote ER] 500 mg tablet extended release 24 hr 500 mg PO ONCE omeprazole 40 mg capsule,delayed release(DR/EC) 40 mg PO DAILY Patient Comments: TAKE 1 CAPSULE BY MOUTH DAILY FOR HEARTBURN
[2024-12-13] MEDS: FLUoxetine 20 MG CAP 80 MG PO (08:34)
[2024-12-13] MEDS: Atenolol 25 MG TAB 75 MG PO (08:34)
[2024-12-13] MEDS: Multivitamin TAB 1 TAB PO (08:34)
[2024-12-13] MEDS: clonazePAM 0.5 MG TAB PO ×2 (08:37→12:04)
[2024-12-13] MEDS: buPROPion-XL 150 MG TABCR PO (08:38)
[2024-12-13] MEDS: Divalproex Sodium 500 MG TAB.ER.24H PO (08:49)
[2024-12-13] MEDS: Omeprazole 20 MG CAPCR 40 MG PO (08:49)
[2024-12-13] MEDS: Loratidine 10 MG TAB PO (08:49)
[2024-12-13 08:50] VITALS: BP 149/88; PULSE 72; RESP 18; TEMP 35.7; O2SAT 97
--- NOTE | 2024-12-13 13:35 | PDOC.CMSAFE ---
Date of service: 12/13/24 Time of Service: 13:35 Care Management Safety Plan Status Status: Voluntary Reason for Wait Reason for Wait: Inpatient Admission (Awaiting inpatient psych placement at an accepting facility) Safety Plan Safety Plan: VOLUNTARY FOR INPATIENT PSYCHIATRIC STABILIZATION.? Patient is appropriate in all interactions since arriving at [facility]; Pt has demonstrated appropriate coping and communication skills and has articulated needs, concerns and is fully engaged during staff interactions. Safety plan has been established with patient, and care team, to adhere to patient goals, identify restrictions based on behavioral status, address nutrition, and determine allowed personal belongings, tools for hygiene and personal care. Determine level of activity including ambulation, level of supervision, visitors, and determine privileges based on behaviors and level of engagement by pt. SAFETY PLAN: 1. Will remain on suicide precautions, in paper clothes 2. Will remain in Zone B under direct supervision of one-on-one staff at all times provided by [employer]; NORBERTO, SHEET METAL TECHNICIAN putty and patch worker. 3. May have paper cups, plates, finger foods as well as a cardboard spoon with which to eat meals. 4. Follow [facility] Management of the Admitted Behavioral Health Patient policy. 5. Shower available in Zone B without restriction. 6. Personal belongings-soft items permitted at RN discretion. 7. Visitors permitted, at RN discretion. 8. Activities: soft cart items approved per RN discretion. 9.? Bathroom available in Zone B without restriction. 10. Phone: incoming/outgoing calls limited to [facility] cordless phone at RN discretion. Due to VOLUNTARY status, if patient wishes to leave [facility], staff will contact [facility] Crisis Screener ([phone]) and Kitchen Assistant ([phone]) as soon as possible. In the event of elopement, notify [facility] Police ([phone]). Patient is currently voluntarily at [facility] and seeking inpatient admission when a bed becomes available. [facility] Frontline Patrol Supervisor will continue seeking placement. Please contact the Kitchen Assistant ([phone]) and [facility] Patrol Supervisor ([phone]) for any needed changes in the Safety Plan. Safety plan has been provided to interdepartmental care team.
[2024-12-13 20:00] VITALS: BP 133/72; PULSE 63; RESP 18; TEMP 36.7; O2SAT 95
--- NOTE | 2024-12-13 20:10 | PDOC.MHPN2 ---
Date of service: 12/13/24 Time of Service: 20:10 Mental Health Emergency Note Release [facility] release signed:: Yes Reason for Visit The client is known to [facility] and is serviced through the [employer] program. The client was initially seen by his [employer] case packer and sealer on 12.12.24 after reports that the client had called 911 on a couple different occasions on said date. After the COMPUTER ART INSTRUCTOR case packer and sealer made contact with a client, they outreach to emergency services to request a mobile response and potential hospitalization. The COMPUTER ART INSTRUCTOR case packer and sealer noted that the client is presenting with an increase of anxiety and depression, inability to care for his ADLs effectively, neglecting services including a PCP appt this week following a failed CARE Bed medical clearance. The client was sent to the ED as he reported vomiting, and diarrhea and this needed to be cleared especially following the deplorable living conditions he is living in based on the client related service note documented from today as a result of that interaction by ES. This was a reassessment at [facility] completed face to face. In the last 2 weeks has the pt presented for ES prior to today?: Yes, presented at [facility] ED Impression The client is a 59-year-old , , male who lives independently in [facility]. He is disabled and receives Social Security. The client uses he/him pronouns. All under represented identifiers were honored during this assessment. The client presents in Zone B sitting on his bed eating lunch which consisted of a broiler chef or cook salad and fruit. He is pleasant and polite. He presents still as disheveled in appearance. He made good eye contact and inquired about next steps. He stated he feels safe at the ED because he has food. He has fair insight and judgment. He is still reporting a need for a higher level of treatment as he does not feel his medications are working. Plan/Disposition Recommended Disposition: Hospitalization facilities contacted. Plan: The client will remain at [facility] pending acceptance to a hospital level of care. He will be assessed daily. Person reported agreement to plan: Yes Reports/communication Outcome discussed with: ED/Personnel
[2024-12-13] MEDS: Acetaminophen 325 MG TAB 650 MG PO (20:14)
[2024-12-13] MEDS: Calcium Carbonate *TUMS* 500 MG CHEW PO (20:14)
--- NOTE | 2024-12-13 21:46 | ED.PROG_ITS ---
Date of service: 12/13/24 Time of Service: 17:00 Medical Decision Making This patient was signed out to me. Please see previous notes for H&P and initial eval. In brief, 59yo M presenting with SI. Medically cleared, home meds ordered, pending voluntary inpatient placement. Pt requesting nicotine gum, tylenol for BABB, and tums for heartburn. PRN medications ordered. No behavioral events on my shift. Will be signed out to oncoming physician, plan remains as above. Quality:SDOH Health Related Social Needs: Health related social needs inadequate housing (Z59.1) , food insecurity (Z59.41), material hardship(utilities) (Z59.12), transportation insecurity (Z59.82), problems finding work (Z56.9), feeling lonely/isolated (Z60.8) Discharge Plan Discharge Details Chief Complaint: PsychEval Primary Care Provider: Brandon Foster ED Provider: Sparkle Slater Home Meds and New Rx's Prescriptions: No Action gabapentin 300 mg capsule 300 mg PO QID bupropion HCl 75 mg tablet 150 mg PO DAILY Rx Instructions: administer 6 hours apart sumatriptan succinate 100 mg tablet See Rx Instructions PO .COMPLEX Qty: 9 5RF Rx Instructions: take 1 tab at onset of headache; if no relief, may repeat 1 tab after at least 2 hrs; max = 2 tabs/24 hrs PO Nurtec ODT 75 mg tablet,disintegrating 75 mg PO ONCE PRN (Reason: migraine headache) Qty: 8 5RF Rx Instructions: as a single dose; no more than 1 tab per day Emgality Pen 120 mg/mL pen injector 120 mg subcut QMONTH Qty: 1 11RF Claritin Liqui-Gel 10 MG capsule 1 cap PO DAILY Qty: 90 metformin 500 mg tablet 500 mg PO BID fluoxetine 10 mg capsule See Rx Instructions PO .COMPLEX Patient Comments: Pt states he takes two tablets per day in the AM 11/15/24 - ML Rx Instructions: 5 mg orally AM; 10 mg afaternoon, 20 mg HS per PCP list 09/24/24 fluoxetine 40 mg capsule 80 mg PO DAILY multivitamin Tablet 1 tab PO DAILY clonazepam 0.5 mg tablet See Rx Instructions .ROUTE .COMPLEX Rx Instructions: 1 tab in AM, 1 tab at Noon and 2 tab QHS simvastatin 80 mg tablet 80 mg PO DAILY Patient Comments: Take 1 tablet by mouth once a day ondansetron HCl 4 mg tablet 4 mg PO Q8H PRN Patient Comments: Take 1 tablet by mouth every eight hours as needed as directed benztropine 0.5 MG tablet 0.5 mg PO BID aspirin,buffd-calcium carb-mag 325 MG tablet 325 mg PO DAILY lactulose 10 gram/15 mL solution 20 g PO DIRECTED PRN Patient Comments: TAKE ONE TO TWO TABLESPOONS BY MOUTH NEEDED WHEN 3 DAYS PASS WITHOUT BOWEL MOVEMENT albuterol sulfate 90 mcg/actuation aerosol powdr breath activated 2 inh IH Q6H PRN (Reason: shortness of breath or wheezing) Qty: 1 0RF atenolol 25 mg tablet 75 mg PO DAILY Patient Comments: Take 3 tablet by mouth once a day Invega Sustenna 117 mg/0.75 mL syringe 117 mg IM Q30D divalproex [Depakote ER] 500 mg tablet extended release 24 hr 500 mg PO ONCE omeprazole 40 mg capsule,delayed release(DR/EC) 40 mg PO DAILY Patient Comments: TAKE 1 CAPSULE BY MOUTH DAILY FOR HEARTBURN
[2024-12-14] MEDS: Nicotine 2 MG GUM CH ×3 (02:18→19:25)
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
[2024-12-14] MEDS: Benztropine 1 MG TAB 0.5 MG PO ×2 (08:56→19:27)
[2024-12-14] MEDS: buPROPion-XL 150 MG TABCR PO (08:56)
[2024-12-14] MEDS: Loratidine 10 MG TAB PO (08:56)
[2024-12-14] MEDS: clonazePAM 0.5 MG TAB PO ×2 (08:56→12:09)
[2024-12-14] MEDS: FLUoxetine 20 MG CAP 80 MG PO (08:56)
[2024-12-14] MEDS: Divalproex Sodium 500 MG TAB.ER.24H PO (08:56)
[2024-12-14] MEDS: metFORMIN 500 MG TAB PO ×2 (08:56→16:44)
[2024-12-14] MEDS: Atenolol 25 MG TAB 75 MG PO (08:56)
[2024-12-14] MEDS: Gabapentin 300 MG CAP PO ×4 (08:56→19:28)
[2024-12-14] MEDS: Omeprazole 20 MG CAPCR 40 MG PO (08:57)
[2024-12-14] MEDS: Multivitamin TAB 1 TAB PO (08:57)
[2024-12-14 08:58] VITALS: BP 127/76; PULSE 74; RESP 16; TEMP 35.9; O2SAT 98
--- NOTE | 2024-12-14 16:15 | ED.PROG_ITS ---
Date of service: 12/14/24 Time of Service: 16:15 Medical Decision Making This patient was signed out to me. Please see previous notes for H&P and initial eval. In brief, 59yo male with depression, medically cleared, pending voluntary placement. No acute events on my shift. Will be signed out to oncoming physician; plan remains as above. Quality:SDOH Health Related Social Needs: Health related social needs inadequate housing (Z59.1) , food insecurity (Z59.41), material hardship(utilities) (Z59.12), transportation insecurity (Z59.82), problems finding work (Z56.9), feeling lonely/isolated (Z60.8) Discharge Plan Discharge Details Chief Complaint: PsychEval Primary Care Provider: Brandon Foster ED Provider: Sparkle Slater Home Meds and New Rx's Prescriptions: No Action gabapentin 300 mg capsule 300 mg PO QID bupropion HCl 75 mg tablet 150 mg PO DAILY Rx Instructions: administer 6 hours apart sumatriptan succinate 100 mg tablet See Rx Instructions PO .COMPLEX Qty: 9 5RF Rx Instructions: take 1 tab at onset of headache; if no relief, may repeat 1 tab after at least 2 hrs; max = 2 tabs/24 hrs PO Nurtec ODT 75 mg tablet,disintegrating 75 mg PO ONCE PRN (Reason: migraine headache) Qty: 8 5RF Rx Instructions: as a single dose; no more than 1 tab per day Emgality Pen 120 mg/mL pen injector 120 mg subcut QMONTH Qty: 1 11RF Claritin Liqui-Gel 10 MG capsule 1 cap PO DAILY Qty: 90 metformin 500 mg tablet 500 mg PO BID fluoxetine 10 mg capsule See Rx Instructions PO .COMPLEX Patient Comments: Pt states he takes two tablets per day in the AM 11/15/24 - ML Rx Instructions: 5 mg orally AM; 10 mg afaternoon, 20 mg HS per PCP list 09/24/24 fluoxetine 40 mg capsule 80 mg PO DAILY multivitamin Tablet 1 tab PO DAILY clonazepam 0.5 mg tablet See Rx Instructions .ROUTE .COMPLEX Rx Instructions: 1 tab in AM, 1 tab at Noon and 2 tab QHS simvastatin 80 mg tablet 80 mg PO DAILY Patient Comments: Take 1 tablet by mouth once a day ondansetron HCl 4 mg tablet 4 mg PO Q8H PRN Patient Comments: Take 1 tablet by mouth every eight hours as needed as directed benztropine 0.5 MG tablet 0.5 mg PO BID aspirin,buffd-calcium carb-mag 325 MG tablet 325 mg PO DAILY lactulose 10 gram/15 mL solution 20 g PO DIRECTED PRN Patient Comments: TAKE ONE TO TWO TABLESPOONS BY MOUTH NEEDED WHEN 3 DAYS PASS WITHOUT BOWEL MOVEMENT albuterol sulfate 90 mcg/actuation aerosol powdr breath activated 2 inh IH Q6H PRN (Reason: shortness of breath or wheezing) Qty: 1 0RF atenolol 25 mg tablet 75 mg PO DAILY Patient Comments: Take 3 tablet by mouth once a day Invega Sustenna 117 mg/0.75 mL syringe 117 mg IM Q30D divalproex [Depakote ER] 500 mg tablet extended release 24 hr 500 mg PO ONCE omeprazole 40 mg capsule,delayed release(DR/EC) 40 mg PO DAILY Patient Comments: TAKE 1 CAPSULE BY MOUTH DAILY FOR HEARTBURN
[2024-12-14] MEDS: Acetaminophen 325 MG TAB 650 MG PO (18:55)
[2024-12-14] MEDS: clonazePAM 1 MG TAB PO (19:27)
[2024-12-14] MEDS: Ondansetron O.D.T. 4 MG TABEF PO (19:28)
[2024-12-14] MEDS: Simvastatin 40 MG TAB 80 MG PO (19:28)
[2024-12-15] MEDS: Nicotine 2 MG GUM CH (05:29)
[2024-12-15 07:40] VITALS: BP 148/88; PULSE 68; RESP 20; TEMP 35.7; O2SAT 96
[2024-12-15] MEDS: metFORMIN 500 MG TAB PO ×2 (08:05→15:54)
[2024-12-15] MEDS: Omeprazole 20 MG CAPCR 40 MG PO (08:05)
--- NOTE | 2024-12-15 08:27 | W.EDPROG ---
Date of service: 12/15/24 Time of Service: 08:27 Medical Decision Making I received signout on this 59-year-old male in the emergency department voluntarily in setting of depression. No active behavioral issues last shift. I ordered him a regular diet on safety tray. 12:25 PM I spoke to Lianna Iqbal NP, from the [facility] who agreed to accept pt for hosptialization. She requested flu swab. 12/16 Return due to patient care. I signed transfer paperwork to have the patient transferred to the [facility]. Quality:SDOH Health Related Social Needs: Health related social needs inadequate housing (Z59.1), food insecurity (Z59.41), transportation insecurity (Z59.82), material hardship(utilities) (Z59.12), problems finding work (Z56.9), feeling lonely/isolated (Z60.8) Discharge Plan Disposition Patient Disposition: Psychiatric Hospital/Unit Specific Psychiatric Facility: [facility] Discharge Details Clinical Impression: Depression Primary Care Provider: Brandon Foster ED Provider: Avery Causey Bradford Meds and New Rx's Prescriptions: No Action gabapentin 300 mg capsule 300 mg PO QID bupropion HCl 75 mg tablet 150 mg PO DAILY Rx Instructions: administer 6 hours apart sumatriptan succinate 100 mg tablet See Rx Instructions PO .COMPLEX Qty: 9 5RF Rx Instructions: take 1 tab at onset of headache; if no relief, may repeat 1 tab after at least 2 hrs; max = 2 tabs/24 hrs PO Nurtec ODT 75 mg tablet,disintegrating 75 mg PO ONCE PRN (Reason: migraine headache) Qty: 8 5RF Rx Instructions: as a single dose; no more than 1 tab per day Emgality Pen 120 mg/mL pen injector 120 mg subcut QMONTH Qty: 1 11RF Claritin Liqui-Gel 10 MG capsule 1 cap PO DAILY Qty: 90 metformin 500 mg tablet 500 mg PO BID fluoxetine 10 mg capsule See Rx Instructions PO .COMPLEX Patient Comments: Pt states he takes two tablets per day in the AM 11/15/24 - ML Rx Instructions: 5 mg orally AM; 10 mg afaternoon, 20 mg HS per PCP list 09/24/24 fluoxetine 40 mg capsule 80 mg PO DAILY multivitamin Tablet 1 tab PO DAILY clonazepam 0.5 mg tablet See Rx Instructions .ROUTE .COMPLEX Rx Instructions: 1 tab in AM, 1 tab at Noon and 2 tab QHS simvastatin 80 mg tablet 80 mg PO DAILY Patient Comments: Take 1 tablet by mouth once a day ondansetron HCl 4 mg tablet 4 mg PO Q8H PRN Patient Comments: Take 1 tablet by mouth every eight hours as needed as directed benztropine 0.5 MG tablet 0.5 mg PO BID aspirin,buffd-calcium carb-mag 325 MG tablet 325 mg PO DAILY lactulose 10 gram/15 mL solution 20 g PO DIRECTED PRN Patient Comments: TAKE ONE TO TWO TABLESPOONS BY MOUTH NEEDED WHEN 3 DAYS PASS WITHOUT BOWEL MOVEMENT albuterol sulfate 90 mcg/actuation aerosol powdr breath activated 2 inh IH Q6H PRN (Reason: shortness of breath or wheezing) Qty: 1 0RF atenolol 25 mg tablet 75 mg PO DAILY Patient Comments: Take 3 tablet by mouth once a day Invega Sustenna 117 mg/0.75 mL syringe 117 mg IM Q30D divalproex [Depakote ER] 500 mg tablet extended release 24 hr 500 mg PO ONCE omeprazole 40 mg capsule,delayed release(DR/EC) 40 mg PO DAILY Patient Comments: TAKE 1 CAPSULE BY MOUTH DAILY FOR HEARTBURN Discharge Data Discharge Date/Time-TO BE ENTERED AT DEPARTURE: 12/15/24 16:37
[2024-12-15] MEDS: Multivitamin TAB 1 TAB PO (08:28)
[2024-12-15] MEDS: Atenolol 25 MG TAB 75 MG PO (08:28)
[2024-12-15] MEDS: Gabapentin 300 MG CAP PO ×3 (08:28→15:54)
[2024-12-15] MEDS: Loratidine 10 MG TAB PO (08:28)
[2024-12-15] MEDS: FLUoxetine 20 MG CAP 80 MG PO (08:28)
[2024-12-15] MEDS: buPROPion-XL 150 MG TABCR PO (08:29)
[2024-12-15] MEDS: Benztropine 1 MG TAB 0.5 MG PO (08:29)
[2024-12-15] MEDS: Divalproex Sodium 500 MG TAB.ER.24H PO (08:29)
[2024-12-15] MEDS: clonazePAM 0.5 MG TAB PO ×2 (08:29→12:05)
[2024-12-15 13:28] LABS: COVID-19 PCR Negative (Negative); Influenza A PCR Negative (Negative); Influenza B PCR Negative (Negative); RSV PCR Negative (Negative)
[2024-12-15 13:29] LABS: Source Nasopharynx
--- NOTE | 2024-12-15 13:45 | MHPN_ITS ---
Date of service: 12/15/24 Time of Service: 10:45 PHQ-9 Over the last 2 weeks, how often have you been bothered by any of the following problems? 1. Little interest or pleasure in doing things: nearly every day 2. Feeling down, depressed, or hopeless: nearly every day 3. Trouble falling or staying asleep, or sleeping too much: nearly every day 4. Feeling tired or having little energy: nearly every day 5. Poor appetite or overeating: nearly every day 6. Feeling bad about yourself - or that you are a failure or have let yourself and your family down: more than half the days 7. Trouble concentrating on things, such as reading the newspaper or watching television: more than half the days 8. Moving or speaking so slowly that other people could have noticed? - Or the opposite - being so fidgety or restless that you have been moving around a lot more than usual: more than half the days 9. Thoughts that you would be better off or of hurting yourself in some way: several days Total score: 22 If you checked off any problems, how difficult have these problems made it for you to do your work, take care of things at home, or get along with other people?: very difficult PHQ-9 Results: Positive Source: Developed by Drs. Dariel Belle, Alina Cisneros, Michael Mai and colleagues, with an educational missy from [employer]. Suicide Severity Rate CSSRS Have you wished you were or wished you could go to sleep and not wake up?: No Have you actually had any thoughts of killing yourself?: No CSSRS2 Have you been thinking about how you might do this?: No Have you had these thoughts and had some intention of acting on them?: No Have you started to work out or worked out the details of how to kill yourself? Do you intend to carry out this plan?: No CSSRS3 Have you ever done anything, started to do anything or prepared to do anything to end your life?: No CSSRS4 Was this within the past three months?: No Screening Score Total Score: 0 Screening: Negative Mental Health Emergency Note Release [facility] release signed:: Yes Reason for Visit The client is a 59 year old male who resides by himself in a apartment in [facility]. He has a disability and receives social security as a income source. The client is presenting at the [facility] ED in [facility]. The client stated he would be open to [place] or somewhere else as that could be helpful. The client stated he felt like he needed to get help or something bad would happen to him such as a heart attack. The client stated he had eaten an omelet and some cereal. The client stated his goal for the day was to take a shower. The client then wrote on a letter that he gave to the nurse who gave it to this clinician. The letter stated I would like to leave 72 from now. This small respite is healing me very well. Sincerely, Avery Sharp. The client is waiting voluntarily at the [facility] ED for in patient placement. 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 Risk: Moderate Risk Duty to warn indicated: No Asssessment/Mental Status Appearance: Unremarkable Attitude: Cooperative and Friendly Behavior: Unremarkable Speech: Normal Affect: Normal Mood: Depressed Thought process: Unremarkable Hallucinations: No Delusions: No Attention: Unremarkable Perception: Not impaired Orientation: Fully orientated Memory: Intact Insight: Fair Judgement: Fair Neurovegetative Symptoms Sleep: Increase Appetitie: Increase Interests: No change Energy: No change Libido: Not applicable Impression The client is a 59 year old male who resides by himself in a apartment in [facility]. He has a disability and receives social security as a income source. The client is presenting at the [facility] ED in [facility]. The client stated he would be open to [place] or somewhere else as that could be helpful. The client stated he felt like he needed to get help or something bad would happen to him such as a heart attack. The client stated he had eaten an omelet and some cereal. The client stated his goal for the day was to take a shower. The client then wrote on a letter that he gave to the nurse who gave it to this clinician. The letter stated I would like to leave 72 from now. This small respite is healing me very well. Sincerely, Avery Sharp. The client is waiting voluntarily at the [facility] ED for in patient placement. Resources [facility] reviewed and given:: [phone], Crisis Bed and Community therapist Plan/Disposition Recommended Disposition: Hospitalization facilities contacted. Plan: The client is a 59 year old male who resides by himself in a apartment in [facility]. He has a disability and receives social security as a income source. The client is presenting at the [facility] ED in [place]. The client stated he would be open to [place] or somewhere else as that could be helpful. The client stated he felt like he needed to get help or something bad would happen to him such as a heart attack. The client stated he had eaten an omelet and some cereal. The client stated his goal for the day was to take a shower. The client then wrote on a letter that he gave to the nurse who gave it to this clinician. The letter stated I would like to leave 72 from now. This small respite is healing me very well. Sincerely, Avery Sharp. The client is waiting voluntarily at the [facility] ED for in patient placement. Reports/communication Outcome discussed with: ED/Personnel
--- NOTE | 2024-12-15 15:50 | NUR.NOTE ---
Spoke with Pt. about transport to [facility] and his acceptance. Two Pt's are both being transferred to same facility at same time. Permission requested from Pt. to be transferred to facility along with other Pt. in same vehicle/ambulance. Pt. get's along with other Pt well and stated he was fine with that and looked forward to it. Nursing Note:
[2024-12-15] MEDS: Lactulose 20 GM/30 ML CUP PO (15:54)
[2024-12-15] MEDS: Acetaminophen 325 MG TAB 650 MG PO (15:54)
--- NOTE | 2024-12-15 16:36 | CMSP_ITS ---
Date of service: 12/15/24 Time of Service: 16:36 Care Management Safety Plan Status Status: Voluntary Reason for Wait Reason for Wait: Inpatient Admission Safety Plan Safety Plan: VOLUNTARY FOR INPATIENT PSYCHIATRIC STABILIZATION.? Patient is appropriate in all interactions since arriving at [facility]; Pt has demonstrated appropriate coping and communication skills and has articulated needs, concerns and is fully engaged during staff interactions. Safety plan has been established with patient, and care team, to adhere to patient goals, identify restrictions based on behavioral status, address nutrition, and determine allowed personal belongings, tools for hygiene and personal care. Determine level of activity including ambulation, level of supervision, visitors, and determine privileges based on behaviors and level of engagement by pt. SAFETY PLAN: 1. Will remain on suicide precautions, in paper clothes 2. Will remain in Zone B under direct supervision of one-on-one staff at all times provided by [employer]; NORBERTO, SEAM CLOSER relations coordinator. 3. May have paper cups, plates, finger foods as well as a cardboard spoon with which to eat meals. 4. Follow [facility] Management of the Admitted Behavioral Health Patient policy. 5. Shower available in Zone B without restriction. 6. Personal belongings-soft items permitted at RN discretion. 7. Visitors permitted, at RN discretion. 8. Activities: soft cart items approved per RN discretion. 9.? Bathroom available in Zone B without restriction. 10. Phone: incoming/outgoing calls limited to [facility] cordless phone at RN disc retion. Due to VOLUNTARY status, if patient wishes to leave [facility], staff will contact [facility] Crisis Screener ([phone]) and Zipper Joiner ([phone]) as soon as possible. In the event of elopement, notify [facility] Police ([phone]). Patient is currently voluntarily at [facility] and seeking inpatient admission when a bed becomes available. [facility] Frontline Decontamination Technician will continue seeking placement. Please contact the Zipper Joiner ([phone]) and [facility] Decontamination Technician ([phone]) for any needed changes in the Safety Plan. Safety plan has been provided to interdepartmental care team.
--- NOTE | 2024-12-15 16:36 | PDOC.CMSAFE ---
Date of service: 12/15/24 Time of Service: 16:36 Care Management Safety Plan Status Status: Voluntary Reason for Wait Reason for Wait: Inpatient Admission Safety Plan Safety Plan: VOLUNTARY FOR INPATIENT PSYCHIATRIC STABILIZATION.? Patient is appropriate in all interactions since arriving at [facility]; Pt has demonstrated appropriate coping and communication skills and has articulated needs, concerns and is fully engaged during staff interactions. Safety plan has been established with patient, and care team, to adhere to patient goals, identify restrictions based on behavioral status, address nutrition, and determine allowed personal belongings, tools for hygiene and personal care. Determine level of activity including ambulation, level of supervision, visitors, and determine privileges based on behaviors and level of engagement by pt. SAFETY PLAN: 1. Will remain on suicide precautions, in paper clothes 2. Will remain in Zone B under direct supervision of one-on-one staff at all times provided by [employer]; NORBERTO, PRODUCTION FLOATER towel distributor. 3. May have paper cups, plates, finger foods as well as a cardboard spoon with which to eat meals. 4. Follow [facility] Management of the Admitted Behavioral Health Patient policy. 5. Shower available in Zone B without restriction. 6. Personal belongings-soft items permitted at RN discretion. 7. Visitors permitted, at RN discretion. 8. Activities: soft cart items approved per RN discretion. 9.? Bathroom available in Zone B without restriction. 10. Phone: incoming/outgoing calls limited to [facility] cordless phone at RN discretion. Due to VOLUNTARY status, if patient wishes to leave [facility], staff will contact [facility] Crisis Screener ([phone]) and Machine Sand Mixer ([phone]) as soon as possible. In the event of elopement, notify [facility] Police ([phone]). Patient is currently voluntarily at [facility] and seeking inpatient admission when a bed becomes available. [facility] Frontline End Finder Forming Department will continue seeking placement. Please contact the Machine Sand Mixer ([phone]) and [facility] End Finder Forming Department ([phone]) for any needed changes in the Safety Plan. Safety plan has been provided to interdepartmental care team.
--- NOTE | 2024-12-15 16:37 | CMPROGNOTE_ITS ---
Date of service: 12/15/24 Time of Service: 16:37 Care Management Progress Note Progress Note Text Progress Note Text: CM huddled with staff regarding Avery's plan of care. Per staff report, he has been appropriate in interactions, and has been sleeping a lot. Per report, he has been accepted at [facility], transport is being arranged. CM will continue to follow. Social Determinants of Health Screening Social Determinants of Health last assessed: 12/15/24 Will the Patient Participate in the Screening?: Yes Do you worry about having a steady place to live?: no Problems where you live: pests such as bugs, ants or mice, lack of heat, oven or stove not working, Carbon monoxide detectors missing or not working and other In the past 12 months, have you had to go without electric, gas, oil or water in your home?: yes Have you or anyone in your house had to go without enough food to eat?: yes 1. Within the past 12 months, we worried whether our food would run out before we got money to buy more.: Sometimes true 2. Within the past 12 months, the food we bought just didn't last and we didn't have money to get more.: Sometimes true Referred to:: Other: Has lack of transportation kept you from medical appointments or from doing things needed for daily living?: yes Has anyone in your life made you feel unsafe or unsupported?: yes How hard is it for you to pay for the very basics like food, housing, medical care, and heating? Would you say it is:: Not hard at all Do you want help finding or keeping work or a job?: Yes, help keeping work If for any reason you need help with day-to-day activities such as bathing, preparing meals, shopping, managing finances, etc., do you get the help you need?: I get all the help I need How often do you feel lonely or isolated from those around you?: Sometimes Do you speak a language other than Kinyarwanda at home?: No Does the patient want assistance with any of the above?: Yes Health Related Social Needs Health related social needs: inadequate housing (Z59.1), food insecurity (Z59.41), transportation insecurity (Z59.82), material hardship(utilities) (Z59.12), problems finding work (Z56.9) and feeling lonely/isolated (Z60.8)
--- NOTE | 2024-12-15 20:45 | NUR.NOTE ---
In pt chart for [facility] Mental health checking to see if the pt has found placement yet.
== END 2024-12-15 16:37 ==
PROVIDERS: Nurse Practitioner Family; Emergency Provider Emergency Medicine; PCP Family Medicine
DX: F32.A Depression, unspecified (principal); R11.2 Nausea with vomiting, unspecified; R19.7 Diarrhea, unspecified; Z59.10 Inadequate housing, unspecified; Z59.41 Food insecurity; Z59.82 Transportation insecurity; Z59.12 Inadequate housing utilities; Z56.9 Unspecified problems related to employment; Z60.8 Other problems related to social environment
CPT/HCPCS: 00123; 80307; 87637; 96127; 99285; H0046; 81003; J3490

== ENCOUNTER 2025-01-20 05:32 | Emergency (ER) | payer MEDICAID, SELFPAY ==
--- NOTE | 2025-01-20 05:30 | RT.EKG_ITS ---
APPROVED REPORT Exam: Resting ECG Reason for Exam: CP Patient Location: E HR:66 bpm ECG Measurements Heart Rate 66 AXIS ND 199 P 64 QRSd 103 QRS 31 QT 431 T 82 QTc 451 Conclusion Sinus rhythm...normal P axis, V-rate 60- 99 I have reviewed and interpreted ECG and agree with software generated interpretation.
[2025-01-20 05:33] VITALS: BP 184/74; PULSE 66; RESP 20; TEMP 36.8; O2SAT 98
[2025-01-20 05:38] VITALS: RESP 20
--- NOTE | 2025-01-20 05:44 | W.ED.GENAD ---
Discharge Plan Disposition Patient Disposition: Home Condition: Good Discharge Details Chief Complaint: Anxiety Clinical Impression: Epigastric discomfort Primary Care Provider: Brandon Foster ED Provider: Froilan Iraheta Home Meds and New Rx's Prescriptions: No Action gabapentin 300 mg capsule 300 mg PO QID bupropion HCl 75 mg tablet 150 mg PO DAILY Rx Instructions: administer 6 hours apart sumatriptan succinate 100 mg tablet See Rx Instructions PO .COMPLEX Qty: 9 5RF Rx Instructions: take 1 tab at onset of headache; if no relief, may repeat 1 tab after at least 2 hrs; max = 2 tabs/24 hrs PO Nurtec ODT 75 mg tablet,disintegrating 75 mg PO ONCE PRN (Reason: migraine headache) Qty: 8 5RF Rx Instructions: as a single dose; no more than 1 tab per day Emgality Pen 120 mg/mL pen injector 120 mg subcut QMONTH Qty: 1 11RF Claritin Liqui-Gel 10 MG capsule 1 cap PO DAILY Qty: 90 metformin 500 mg tablet 500 mg PO BID fluoxetine 10 mg capsule See Rx Instructions PO .COMPLEX Patient Comments: Pt states he takes two tablets per day in the AM 11/15/24 - ML Rx Instructions: 5 mg orally AM; 10 mg afaternoon, 20 mg HS per PCP list 09/24/24 fluoxetine 40 mg capsule 80 mg PO DAILY multivitamin Tablet 1 tab PO DAILY clonazepam 0.5 mg tablet See Rx Instructions .ROUTE .COMPLEX Rx Instructions: 1 tab in AM, 1 tab at Noon and 2 tab QHS simvastatin 80 mg tablet 80 mg PO DAILY Patient Comments: Take 1 tablet by mouth once a day ondansetron HCl 4 mg tablet 4 mg PO Q8H PRN Patient Comments: Take 1 tablet by mouth every eight hours as needed as directed benztropine 0.5 MG tablet 0.5 mg PO BID aspirin,buffd-calcium carb-mag 325 MG tablet 325 mg PO DAILY lactulose 10 gram/15 mL solution 20 g PO DIRECTED PRN Patient Comments: TAKE ONE TO TWO TABLESPOONS BY MOUTH NEEDED WHEN 3 DAYS PASS WITHOUT BOWEL MOVEMENT albuterol sulfate 90 mcg/actuation aerosol powdr breath activated 2 inh IH Q6H PRN (Reason: shortness of breath or wheezing) Qty: 1 0RF atenolol 25 mg tablet 75 mg PO DAILY Patient Comments: Take 3 tablet by mouth once a day Invega Sustenna 117 mg/0.75 mL syringe 117 mg IM Q30D divalproex [Depakote ER] 500 mg tablet extended release 24 hr 500 mg PO ONCE omeprazole 40 mg capsule,delayed release(DR/EC) 40 mg PO DAILY Patient Comments: TAKE 1 CAPSULE BY MOUTH DAILY FOR HEARTBURN Discharge Instructions Additional Instructions: Please take your meds when they come in tomorrow. If you notice any worsening of your symptoms, or any new symptoms such as vomiting, diarrhea, fever, chills, shortness of breath, chest pain, numbness, weakness, or fainting , please return immediately to the emergency department for reevaluation. Please follow up with your primary care provider as soon as possible for reassessment and reevaluation. As always, it was a pleasure participating in your medical care today. Referrals: Brandon Foster [Primary Care Provider] - [facility] General Date/Time Provider Initiated Documentation: 01/20/25 05:36. HPI Narrative: This is a 59-year-old male with a past medical history of anxiety, depression, type 2 diabetes, high cholesterol, obesity, schizoaffective disorder, hypothyroidism, chronic headaches, chronic recurrent visits to the emergency department for evaluation of chest pain which is often associated with anxiety or reflux, who presents today via EMS for evaluation. Patient states that he was discharged from [facility] about a week ago. He has not been able to get his regular medications for the last few days from [facility]. He is scheduled to get them on Sunday. He states that he has had mild epigastric achiness and discomfort which she describes as chest discomfort. He denies vomiting or diarrhea. No other complaints. No homicidal or suicidal ideations. Related Data Home Medications ?Medication ?Instructions ?Recorded ?Confirmed loratadine 10 mg capsule (Claritin 1 cap PO DAILY #90 tabs 12/16/14 01/20/25 Liqui-Gel) aspirin,buffered (calcium 325 mg PO DAILY 11/18/16 01/20/25 carbonate-magnesium) 325 mg tablet benztropine 0.5 mg tablet 0.5 mg PO BID 11/18/16 01/20/25 lactulose 10 gram/15 mL oral 20 g PO DIRECTED PRN 10/03/20 01/20/25 solution albuterol sulfate 90 mcg/actuation 2 inh inhalation Q6H PRN shortness 12/15/20 01/20/25 breath activated powder inhaler of breath or wheezing #1 ea multivitamin 1 tab PO DAILY 01/26/21 01/20/25 clonazepam 0.5 mg tablet See Rx Instructions .Route .COMPLEX 03/04/23 01/20/25 gabapentin 300 mg capsule 300 mg PO QID 03/27/23 01/20/25 atenolol 25 mg tablet 75 mg PO DAILY 01/31/24 01/20/25 divalproex 500 mg tablet,extended 500 mg PO ONCE 01/31/24 01/20/25 release 24 hr (Depakote ER) omeprazole 40 mg capsule,delayed 40 mg PO DAILY 01/31/24 01/20/25 release paliperidone palmitate 117 mg/0.75 117 mg IM Q30D 01/31/24 01/20/25 mL intramuscular syringe (Invega Sustenna) simvastatin 80 mg tablet 80 mg PO DAILY 03/08/24 01/20/25 ondansetron HCl 4 mg tablet 4 mg PO Q8H PRN 07/22/24 01/20/25 bupropion HCl 75 mg tablet 150 mg PO DAILY 08/04/24 01/20/25 galcanezumab-gnlm 120 mg/mL 120 mg subcut QMONTH #1 mL 08/04/24 01/20/25 subcutaneous pen injector (Emgality Pen) rimegepant 75 mg disintegrating 75 mg PO ONCE PRN migraine 08/04/24 01/20/25 tablet (Nurtec ODT) headache #8 tabs sumatriptan succinate 100 mg tablet See Rx Instructions PO .COMPLEX #9 08/04/24 01/20/25 tabs fluoxetine 10 mg capsule See Rx Instructions PO .COMPLEX 09/24/24 01/20/25 fluoxetine 40 mg capsule 80 mg PO DAILY 09/24/24 01/20/25 metformin 500 mg tablet 500 mg PO BID 09/24/24 01/20/25 Previous Rx's ?Medication ?Instructions ?Recorded albuterol sulfate 90 mcg/actuation 2 inh inhalation Q6H PRN shortness 12/15/20 breath activated powder inhaler of breath or wheezing #1 ea galcanezumab-gnlm 120 mg/mL 120 mg subcut QMONTH #1 mL 08/04/24 subcutaneous pen injector (Emgality Pen) rimegepant 75 mg disintegrating 75 mg PO ONCE PRN migraine 08/04/24 tablet (Nurtec ODT) headache #8 tabs sumatriptan succinate 100 mg tablet See Rx Instructions PO .COMPLEX #9 08/04/24 tabs Allergies Allergy/AdvReac Type Severity Reaction Status Date / Time buspirone Allergy Other (See Verified 01/20/25 05:41 Comment) paliperidone Allergy Other (See Verified 01/20/25 05:41 Comment) paroxetine HCl (From Paxil) Allergy Other (See Verified 01/20/25 05:41 Comment) sertraline Allergy Other (See Verified 01/20/25 05:41 Comment) ziprasidone (From Geodon) Allergy Other (See Verified 01/20/25 05:41 Comment) aripiprazole (From Abilify) AdvReac Intermediate INVOLUNTARY Verified 01/20/25 05:41 MUSCLE MOVEMENTS mirtazapine AdvReac Intermediate INVOLUNTARY Verified 01/20/25 05:41 MUSCLE MOVEMENTS risperidone AdvReac Intermediate INVOLUNTARY Verified 01/20/25 05:41 MUSCLE MOVEMENTS enviornmental Allergy Mild Wheezing Uncoded 01/20/25 05:41 General Stated Complaint: Anxiety CARLOS: 3 Exam Narrative Exam Narrative: 1.Const: Disheveled 2.Eyes: PERRL, no conjunctival injection, and symmetrical lids. 3.ENT: Atraumatic external nose and ears. Moist MM. Neck: Symmetric, trachea midline, No thyromegaly. 4.CVS: +S1/S2, Peripheral pulses 2+ and equal in all extremities. Brisk capillary refill in all extremities. 5.RESP: Unlabored respiratory effort. Clear to auscultation bilaterally. No wheezes rales or rhonchi 6.GI: Soft, Nontender/Nondistended, No hepatosplenomegaly. No guarding or rebound. 7.MSK: Normocephalic/Atraumatic, Extremities w/o deformity or ttp No cyanosis or clubbing, Normal movement of all extremities 8.Skin: Warm, Dry. No rashes or lesions. 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 Sensation grossly intact, no focal neurologic deficits. 10.Psych: (AAO) x3. Appropriate mood and affect Course Vital Signs Vital signs: Vital Signs Temperature 36.8 C 01/20/25 05:33 Pulse 66 01/20/25 05:33 Respiratory Rate 20 01/20/25 05:33 Blood Pressure 184/74 H 01/20/25 05:33 Pulse Oximetry 98 01/20/25 05:33 Temperature 36.8 C 01/20/25 05:33 Temperature Source Temporal Artery Scan 01/20/25 05:33 Pulse 66 01/20/25 05:33 Respiratory Rate 20 01/20/25 05:38 Respiratory Effort Normal, Non-Labored 01/20/25 05:38 Respiratory Depth Normal 01/20/25 05:38 Respiratory Pattern Normal 01/20/25 05:38 Blood Pressure 184/74 H 01/20/25 05:33 Pulse Oximetry 98 01/20/25 05:33 Oxygen Delivery Method Room Air 01/20/25 05:33 Oxygen Flow Rate 0 01/20/25 05:33 Pain Level 6 01/20/25 05:33 Medical Decision Making This is a 59-year-old male with a past medical history of anxiety, depression, type 2 diabetes, high cholesterol, obesity, schizoaffective disorder, hypothyroidism, chronic headaches, chronic recurrent visits to the emergency department for evaluation of chest pain which is often associated with anxiety or reflux, who presents today via EMS for evaluation. Patient states that he was discharged from [facility] about a week ago. He has not been able to get his regular medications for the last few days from [facility]. He is scheduled to get them on Sunday. He states that he has had mild epigastric achiness and discomfort which she describes as chest discomfort. He denies vomiting or diarrhea. No other complaints. No homicidal or suicidal ideations. Physical exam demonstrates well-appearing male, vital signs stable. EKG shows no evidence of STEMI or other abnormalities. Symptoms appear clinically inconsistent with ACS at this time. Will give GI cocktail, we will give all of his daily medications as he has been out, will monitor closely and reassess. Patient was given daily meds, patient feels much better. Patient will be discharged home. No signs of acute life-threatening etiology. I have extensively reviewed the treatment plan and discharge instructions with the patient. I have addressed all patient concerns at this time. The patient was made aware of what symptoms to monitor for that would warrant a return to the emergency department. Discussed the plan with the patient, they demonstrate verbal understanding and agreement with our assessment and plan at this time. The documentation in this chart was dictated using [employer] dictation software. Please excuse any dictation errors. Quality:SDOH Health Related Social Needs: Health related social needs inadequate housing (Z59.1), food insecurity (Z59.41), transportation insecurity (Z59.82), material hardship(utilities) (Z59.12), problems finding work (Z56.9), feeling lonely/isolated (Z60.8) PFSH All Active Problems (Updated 01/20/25 @ 06:38 by Froilan Iraheta DO) Epigastric discomfort (Acute) Knee pain (Acute) Dental caries (Acute) Nicotine dependence (Acute) Dyspnea on exertion (Acute) Shortness of breath (Acute) Hypercholesterolemia (Chronic 09/07/14) pt insists on lipitor 80 mg due to family hx Depression (Acute 10/02/14) Left-sided chest wall pain (Acute) Chest pain (Acute) Chronic headache (Acute) Migraine headache without aura (Acute) Migraine (Chronic) Poor dentition (Acute) Tobacco use disorder (Chronic) started 2013 1.5 ppd, pipe 1-7/week, QUIT LATE OCT 2021 Allergic rhinitis (Chronic) lortadine Hiatal hernia (Chronic) protonix not effective, nexium works better 02/12/18 Anemia (Chronic) Broken teeth (Chronic) Drug-seeking behavior (Chronic ~09/20/21) Requests Ritalin from providers Medication overuse headache (Acute) Medical History Obesity BMI 52 Hypertension pt requests brand name Tenormin vs atenolol 04/02/18 GERD (gastroesophageal reflux disease) (09/07/14) Diabetes mellitus type 2 in obese (09/09/14) Hypothyroidism (acquired) (09/07/14) Schizoaffective disorder (09/07/14) FREDDIE Thakkar 09/2014- [facility] inpatient Trigeminal neuralgia Anxiety Mitral valve prolapse Hyperlipidemia Peripheral neuropathy Surgical History No significant past surgical history Family History Father Heart disease [place] Social History Smoking/Tobacco Use Status: Former Tobacco Use Smoking risk assessment performed?: Yes Alcohol Intake: never Drug use: Never Substance use type: does not use Adopted: No Caregiver/Support person: No Foster care: No Household members: none Housing: apartment Number of Children: 2 number of grandchildren: 1 Communication Needs: Corrective Lenses Education Level: college Do you need help understanding health information?: Always current occupation: Unemployed/Leave of absence Sexually active: No Do you think of yourself as: Decline to provide Current gender identity: male What type of physical activity do you participate in: other Details: weight lifting Frequency: 3-4 times per week Magalie/Amish: Confucianism Seatbelt use: always Drive intox or ride w/intox 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
[2025-01-20] MEDS: MYLANTA 30 ML, LIDOCAINE 2% VISCOUS UD 15 ML PO (05:52)
[2025-01-20] MEDS: FLUoxetine 20 MG CAP 80 MG PO (05:53)
[2025-01-20] MEDS: Dicyclomine 10 MG CAP PO (05:54)
[2025-01-20] MEDS: Omeprazole 20 MG CAPCR 40 MG PO (05:54)
[2025-01-20] MEDS: Simvastatin 40 MG TAB 80 MG PO (05:54)
[2025-01-20] MEDS: Gabapentin 300 MG CAP PO (05:54)
[2025-01-20] MEDS: metFORMIN 500 MG TAB PO (05:54)
[2025-01-20] MEDS: Atenolol 50 MG TAB 75 MG PO (05:54)
[2025-01-20] MEDS: buPROPion-XL 150 MG TABCR PO (05:54)
[2025-01-20] MEDS: Benztropine 1 MG TAB 0.5 MG PO (05:55)
== END 2025-01-20 06:44 | disposition home or self-care (01) ==
PROVIDERS: Emergency Provider Student in an Organized Health Care Education/Training Program; PCP Family Medicine
DX: R10.13 Epigastric pain (principal); F41.9 Anxiety disorder, unspecified; E11.40 Type 2 diabetes mellitus with diabetic neuropathy, unspecified; E03.9 Hypothyroidism, unspecified; E78.5 Hyperlipidemia, unspecified; Z79.84 Long term (current) use of oral hypoglycemic drugs; Z79.82 Long term (current) use of aspirin; Z87.891 Personal history of nicotine dependence
CPT/HCPCS: 93005; 99284; 93010

== ENCOUNTER 2025-01-27 08:15 | Emergency (ER) | payer MEDICAID, SELFPAY ==
[2025-01-27 08:16] VITALS: BP 193/88; PULSE 75; RESP 16; TEMP 36.6; O2SAT 98
[2025-01-27 08:21] VITALS: RESP 16
--- NOTE | 2025-01-27 08:37 | W.ED.GENAD ---
Discharge Plan Disposition Patient Disposition: Home Discharge Details Clinical Impression: Medication refill Primary Care Provider: Brandon Foster ED Provider: Lucille Farley Home Meds and New Rx's Prescriptions: Continued gabapentin 300 mg capsule 300 mg PO QID bupropion HCl 75 mg tablet 150 mg PO DAILY Rx Instructions: administer 6 hours apart sumatriptan succinate 100 mg tablet See Rx Instructions PO .COMPLEX Qty: 9 5RF Rx Instructions: take 1 tab at onset of headache; if no relief, may repeat 1 tab after at least 2 hrs; max = 2 tabs/24 hrs PO Nurtec ODT 75 mg tablet,disintegrating 75 mg PO ONCE PRN (Reason: migraine headache) Qty: 8 5RF Rx Instructions: as a single dose; no more than 1 tab per day Emgality Pen 120 mg/mL pen injector 120 mg subcut QMONTH Qty: 1 11RF Claritin Liqui-Gel 10 MG capsule 1 cap PO DAILY Qty: 90 metformin 500 mg tablet 500 mg PO BID fluoxetine 10 mg capsule See Rx Instructions PO .COMPLEX Patient Comments: Pt states he takes two tablets per day in the AM 11/15/24 - ML Rx Instructions: 5 mg orally AM; 10 mg afaternoon, 20 mg HS per PCP list 09/24/24 fluoxetine 40 mg capsule 80 mg PO DAILY multivitamin Tablet 1 tab PO DAILY clonazepam 0.5 mg tablet See Rx Instructions .ROUTE .COMPLEX Rx Instructions: 1 tab in AM, 1 tab at Noon and 2 tab QHS simvastatin 80 mg tablet 80 mg PO DAILY Patient Comments: Take 1 tablet by mouth once a day ondansetron HCl 4 mg tablet 4 mg PO Q8H PRN Patient Comments: Take 1 tablet by mouth every eight hours as needed as directed benztropine 0.5 MG tablet 0.5 mg PO BID aspirin,buffd-calcium carb-mag 325 MG tablet 325 mg PO DAILY lactulose 10 gram/15 mL solution 20 g PO DIRECTED PRN Patient Comments: TAKE ONE TO TWO TABLESPOONS BY MOUTH NEEDED WHEN 3 DAYS PASS WITHOUT BOWEL MOVEMENT albuterol sulfate 90 mcg/actuation aerosol powdr breath activated 2 inh IH Q6H PRN (Reason: shortness of breath or wheezing) Qty: 1 0RF atenolol 25 mg tablet 75 mg PO DAILY Patient Comments: Take 3 tablet by mouth once a day Invega Sustenna 117 mg/0.75 mL syringe 117 mg IM Q30D divalproex [Depakote ER] 500 mg tablet extended release 24 hr 500 mg PO ONCE omeprazole 40 mg capsule,delayed release(DR/EC) 40 mg PO DAILY Patient Comments: TAKE 1 CAPSULE BY MOUTH DAILY FOR HEARTBURN Discharge Instructions Additional Instructions: you received a morning dose of clonazepam, your fluoxetine, divalproex, and atenolol 75mg this morning. please check your medications and be sure not to take any medications you received this morning. Referrals: Brandon Foster [Primary Care Provider] - 1 day HPI General Date/Time Provider Initiated Documentation: 01/27/25 08:19. HPI Narrative: 59-year-old male presents with epigastric gurgling and anxiety due to running out of medications 24 hours ago. Pharmacy unwilling to refill. Reports epigastric gurgling. Denies chest pain, SOB, dizziness, or weakness. No additional complaints. Alert and oriented x4, baseline mentation. Abdomen nontender. Cardiac rate and rhythm regular. Multiple comorbidities: diabetes, hypothyroidism, schizoaffective disorder, hyperlipidemia. Nursing team to confirm medications. Single dose of Maalox given for epigastric gurgling. No acute illness. No indication for EKG or labs. Multiple complete workups at this facility. Administered clonazepam, Depakote, fluoxetine, atenolol. Discharged with meds to be delivered by [facility]. Housekeeping found meds on floor post-discharge. Alert and oriented, no decisional capacity, slightly paranoid, denies suicidality or homicidality, ambulatory with steady gait. Refused medications in [facility]. Spoke with Sophy at [facility]; transition to daily med dosing and earlier monthly antipsychotic injection. No reason to hold against will. Discharged home. [facility] to follow up closely. Related Data Home Medications ?Medication ?Instructions ?Recorded ?Confirmed loratadine 10 mg capsule (Claritin 1 cap PO DAILY #90 tabs 12/16/14 01/27/25 Liqui-Gel) aspirin,buffered (calcium 325 mg PO DAILY 11/18/16 01/27/25 carbonate-magnesium) 325 mg tablet benztropine 0.5 mg tablet 0.5 mg PO BID 11/18/16 01/27/25 lactulose 10 gram/15 mL oral 20 g PO DIRECTED PRN 10/03/20 01/27/25 solution albuterol sulfate 90 mcg/actuation 2 inh inhalation Q6H PRN shortness 12/15/20 01/27/25 breath activated powder inhaler of breath or wheezing #1 ea multivitamin 1 tab PO DAILY 01/26/21 01/27/25 clonazepam 0.5 mg tablet See Rx Instructions .Route .COMPLEX 03/04/23 01/27/25 gabapentin 300 mg capsule 300 mg PO QID 03/27/23 01/27/25 atenolol 25 mg tablet 75 mg PO DAILY 01/31/24 01/27/25 divalproex 500 mg tablet,extended 500 mg PO ONCE 01/31/24 01/27/25 release 24 hr (Depakote ER) omeprazole 40 mg capsule,delayed 40 mg PO DAILY 01/31/24 01/27/25 release paliperidone palmitate 117 mg/0.75 117 mg IM Q30D 01/31/24 01/27/25 mL intramuscular syringe (Max-Vizega Sustenna) simvastatin 80 mg tablet 80 mg PO DAILY 03/08/24 01/27/25 ondansetron HCl 4 mg tablet 4 mg PO Q8H PRN 07/22/24 01/27/25 bupropion HCl 75 mg tablet 150 mg PO DAILY 08/04/24 01/27/25 galcanezumab-gnlm 120 mg/mL 120 mg subcut QMONTH #1 mL 08/04/24 01/27/25 subcutaneous pen injector (Emgality Pen) rimegepant 75 mg disintegrating 75 mg PO ONCE PRN migraine 08/04/24 01/27/25 tablet (Nurtec ODT) headache #8 tabs sumatriptan succinate 100 mg tablet See Rx Instructions PO .COMPLEX #9 08/04/24 01/27/25 tabs fluoxetine 10 mg capsule See Rx Instructions PO .COMPLEX 09/24/24 01/27/25 fluoxetine 40 mg capsule 80 mg PO DAILY 09/24/24 01/27/25 metformin 500 mg tablet 500 mg PO BID 09/24/24 01/27/25 Previous Rx's ?Medication ?Instructions ?Recorded albuterol sulfate 90 mcg/actuation 2 inh inhalation Q6H PRN shortness 12/15/20 breath activated powder inhaler of breath or wheezing #1 ea galcanezumab-gnlm 120 mg/mL 120 mg subcut QMONTH #1 mL 08/04/24 subcutaneous pen injector (Emgality Pen) rimegepant 75 mg disintegrating 75 mg PO ONCE PRN migraine 08/04/24 tablet (Nurtec ODT) headache #8 tabs sumatriptan succinate 100 mg tablet See Rx Instructions PO .COMPLEX #9 08/04/24 tabs Allergies Allergy/AdvReac Type Severity Reaction Status Date / Time buspirone Allergy Other (See Verified 01/27/25 08:28 Comment) paliperidone Allergy Other (See Verified 01/27/25 08:28 Comment) paroxetine HCl (From Paxil) Allergy Other (See Verified 01/27/25 08:28 Comment) sertraline Allergy Other (See Verified 01/27/25 08:28 Comment) ziprasidone (From Geodon) Allergy Other (See Verified 01/27/25 08:28 Comment) aripiprazole (From Abilify) AdvReac Intermediate INVOLUNTARY Verified 01/27/25 08:28 MUSCLE MOVEMENTS mirtazapine AdvReac Intermediate INVOLUNTARY Verified 01/27/25 08:28 MUSCLE MOVEMENTS risperidone AdvReac Intermediate INVOLUNTARY Verified 01/27/25 08:28 MUSCLE MOVEMENTS enviornmental Allergy Mild Wheezing Uncoded 01/27/25 08:28 General Stated Complaint: Anxiety CARLOS: 3 Exam Narrative Exam Narrative: General Appearance: The patient is alert and oriented x4. Vital signs: Within normal limits. HEENT: Within normal limits. Respiratory: Within normal limits. Cardiovascular: Heart rate and rhythm are regular. Gastrointestinal: The abdomen is nontender. Skin: Warm and dry, no rash. Neurological: Normal. Course Vital Signs Vital signs: Vital Signs Temperature 36.6 C 01/27/25 08:16 Pulse 75 01/27/25 08:16 Respiratory Rate 16 01/27/25 08:16 Blood Pressure 193/88 H 01/27/25 08:16 Pulse Oximetry 98 01/27/25 08:16 Temperature 36.6 C 01/27/25 08:16 Temperature Source Oral 01/27/25 08:16 Pulse 75 01/27/25 08:16 Respiratory Rate 16 01/27/25 08:21 Respiratory Effort Normal, Non-Labored 01/27/25 08:21 Respiratory Depth Normal 01/27/25 08:21 Respiratory Pattern Normal 01/27/25 08:21 Blood Pressure 193/88 H 01/27/25 08:16 Blood Pressure Position Sitting 01/27/25 08:16 Pulse Oximetry 98 01/27/25 08:16 Oxygen Delivery Method Room Air 01/27/25 08:16 Oxygen Flow Rate 0 01/27/25 08:16 Pain Level 0 01/27/25 08:16 Medical Decision Making Initial Assessment: 59-year-old male presents with epigastric gurgling and anxiety due to running out of medications. Denies chest pain, shortness of breath, dizziness, or weakness. Alert and oriented x4, baseline mentation. Abdomen nontender. Cardiac rate and rhythm regular. Multiple comorbidities: diabetes, hypothyroidism, schizoaffective disorder, hyperlipidemia. ED Course: - Nursing team to confirm medications. - Single dose of Maalox given for epigastric gurgling. - No indication for EKG or labs. - Administered clonazepam, Depakote, fluoxetine, atenolol. - Discharged with meds to be delivered by [facility]. - Housekeeping found meds on floor post-discharge. - Refused medications in [facility]. - Spoke with Sophy at [facility]; transition to daily med dosing and earlier monthly antipsychotic injection. Final Assessment: Patient presented with epigastric gurgling and anxiety due to medication issues. Administered necessary medications and provided Maalox for symptom relief. No acute illness detected, no need for EKG or labs. Discharged with follow-up by [facility]. Clinical Impression: - Epigastric gurgling - Medication management Disposition: - Discharged home - [facility] to follow up closely MDM Components Evaluation: - Number of Differential Diagnoses or Management Options: Epigastric gurgling, medication management - Amount and Complexity of Data Reviewed: Medications confirmed, Maalox administered, communication with [facility] - Risk of Complication and Morbidity or Mortality: Low risk based on current presentation and treatment plan Quality:SDOH Health Related Social Needs: Health related social needs feeling lonely/isolated (Z60.8) PFSH All Active Problems (Updated 01/27/25 @ 09:34 by JORDANA Salazar) Medication refill (Acute) Epigastric discomfort (Acute) Knee pain (Acute) Dental caries (Acute) Nicotine dependence (Acute) Dyspnea on exertion (Acute) Shortness of breath (Acute) Hypercholesterolemia (Chronic 09/07/14) pt insists on lipitor 80 mg due to family hx Depression (Acute 10/02/14) Left-sided chest wall pain (Acute) Chest pain (Acute) Chronic headache (Acute) Migraine headache without aura (Acute) Migraine (Chronic) Poor dentition (Acute) Tobacco use disorder (Chronic) started 2013 1.5 ppd, pipe 1-7/week, QUIT LATE OCT 2021 Allergic rhinitis (Chronic) lortadine Hiatal hernia (Chronic) protonix not effective, nexium works better 02/12/18 Anemia (Chronic) Broken teeth (Chronic) Drug-seeking behavior (Chronic ~09/20/21) Requests Ritalin from providers Medication overuse headache (Acute) Medical History Obesity BMI 52 Hypertension pt requests brand name Tenormin vs atenolol 04/02/18 GERD (gastroesophageal reflux disease) (09/07/14) Diabetes mellitus type 2 in obese (09/09/14) Hypothyroidism (acquired) (09/07/14) Schizoaffective disorder (09/07/14) Rebekah Mariscal YENI 09/2014- [facility] inpatient Trigeminal neuralgia Anxiety Mitral valve prolapse Hyperlipidemia Peripheral neuropathy Surgical History No significant past surgical history Family History Father Heart disease [place] Social History Smoking/Tobacco Use Status: Former Tobacco Use Smoking risk assessment performed?: Yes Alcohol Intake: never Drug use: Never Substance use type: does not use Adopted: No Caregiver/Support person: No Foster care: No Household members: none Housing: apartment Number of Children: 2 number of grandchildren: 1 Communication Needs: Corrective Lenses Education Level: college Do you need help understanding health information?: Always current occupation: Unemployed/Leave of absence Sexually active: No Do you think of yourself as: Decline to provide Current gender identity: male What type of physical activity do you participate in: other Details: weight lifting Frequency: 3-4 times per week Magalie/Holiness: Church Seatbelt use: always Drive intox or ride w/intox recycle 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
--- NOTE | 2025-01-27 08:39 | NUR.NOTE ---
This nurse called Jer to find out [facility]'s schedule of med deliveries and was advised that patient receives his meds in blister packs from [facility] on Sunday and those should last him until the Sunday of the following week and then he starts the new pack on sunday.
[2025-01-27] MEDS: Mylanta Suspension 30 ML CUP PO (09:23)
[2025-01-27 09:42] VITALS: BP 157/79; PULSE 72; RESP 14; O2SAT 97
--- NOTE | 2025-01-27 09:48 | NUR.NOTE ---
Patient's meds were found by housekeeping, [facility] was asked to take them by myself and Lucille SILVEIRA (he was in the main lobby waiting for RCT) Patient declined to take them, stating he already took them. MILKA notified of behavior.
== END 2025-01-27 09:42 | disposition home or self-care (01) ==
PROVIDERS: Emergency Provider Physician Assistant; PCP Family Medicine
DX: R07.9 Chest pain, unspecified (principal); I10 Essential (primary) hypertension; E78.5 Hyperlipidemia, unspecified; E03.9 Hypothyroidism, unspecified; E11.9 Type 2 diabetes mellitus without complications; F20.9 Schizophrenia, unspecified; Z79.82 Long term (current) use of aspirin; Z79.84 Long term (current) use of oral hypoglycemic drugs; Z87.891 Personal history of nicotine dependence
CPT/HCPCS: 99285; 99284; J3490

== ENCOUNTER 2025-01-28 02:37 | Emergency (ER) | payer MEDICAID, SELFPAY ==
--- NOTE | 2025-01-28 02:30 | RT.EKG_ITS ---
APPROVED REPORT Exam: Resting ECG Reason for Exam: CHEST PAIN Patient Location: E HR:64 bpm ECG Measurements Heart Rate 64 AXIS OR 195 P 42 QRSd 96 QRS 2 QT 444 T 94 QTc 457 Conclusion Sinus rhythm...normal P axis, V-rate 60- [address] segment or T wave abnormalities to suggest occlusive [place]
[2025-01-28 02:37] VITALS: BP 181/85; PULSE 69; RESP 18; TEMP 35.6; O2SAT 99
[2025-01-28 02:40] VITALS: RESP 18
--- NOTE | 2025-01-28 02:45 | DI.RAD_ITS ---
Exam(s) XR CHEST 2V PA LATERAL EXAM: XR CHEST 2V PA LATERAL CLINICAL HISTORY: chest pain TECHNIQUE: 2D digital imaging was performed. Two views. COMPARISON: CR XR CHEST 2V PA LATERAL from 12/10/2024 FINDINGS: HEART: Normal size. Aorta: Not dilated. PULMONARY VASCULATURE: Normal. MEDIASTINUM: Unremarkable. LUNGS: Clear. PLEURAL SPACE: No pleural effusion or pneumothorax. BONE:Unremarkable for age. SOFT TISSUES: Unremarkable. IMPRESSION: No acute abnormality. DATA REPOSITORY: RADIATION DOSE DELIVERED:
--- NOTE | 2025-01-28 03:01 | ED.GENADUL_ITS ---
Discharge Plan Disposition Patient Disposition: Home Condition: Good Discharge Details Clinical Impression: Chest pain, Hypertension, Schizophrenia Primary Care Provider: Brandon Foster ED Provider: Sparkle Slater Home Meds and New Rx's Prescriptions: Continued gabapentin 300 mg capsule 300 mg PO QID bupropion HCl 75 mg tablet 150 mg PO DAILY Rx Instructions: administer 6 hours apart sumatriptan succinate 100 mg tablet See Rx Instructions PO .COMPLEX Qty: 9 5RF Rx Instructions: take 1 tab at onset of headache; if no relief, may repeat 1 tab after at least 2 hrs; max = 2 tabs/24 hrs PO Nurtec ODT 75 mg tablet,disintegrating 75 mg PO ONCE PRN (Reason: migraine headache) Qty: 8 5RF Rx Instructions: as a single dose; no more than 1 tab per day Emgality Pen 120 mg/mL pen injector 120 mg subcut QMONTH Qty: 1 11RF Claritin Liqui-Gel 10 MG capsule 1 cap PO DAILY Qty: 90 metformin 500 mg tablet 500 mg PO BID fluoxetine 10 mg capsule See Rx Instructions PO .COMPLEX Patient Comments: Pt states he takes two tablets per day in the AM 11/15/24 - ML Rx Instructions: 5 mg orally AM; 10 mg afaternoon, 20 mg HS per PCP list 09/24/24 fluoxetine 40 mg capsule 80 mg PO DAILY multivitamin Tablet 1 tab PO DAILY clonazepam 0.5 mg tablet See Rx Instructions .ROUTE .COMPLEX Rx Instructions: 1 tab in AM, 1 tab at Noon and 2 tab QHS simvastatin 80 mg tablet 80 mg PO DAILY Patient Comments: Take 1 tablet by mouth once a day ondansetron HCl 4 mg tablet 4 mg PO Q8H PRN Patient Comments: Take 1 tablet by mouth every eight hours as needed as directed benztropine 0.5 MG tablet 0.5 mg PO BID aspirin,buffd-calcium carb-mag 325 MG tablet 325 mg PO DAILY lactulose 10 gram/15 mL solution 20 g PO DIRECTED PRN Patient Comments: TAKE ONE TO TWO TABLESPOONS BY MOUTH NEEDED WHEN 3 DAYS PASS WITHOUT BOWEL MOVEMENT albuterol sulfate 90 mcg/actuation aerosol powdr breath activated 2 inh IH Q6H PRN (Reason: shortness of breath or wheezing) Qty: 1 0RF atenolol 25 mg tablet 75 mg PO DAILY Patient Comments: Take 3 tablet by mouth once a day Invega Sustenna 117 mg/0.75 mL syringe 117 mg IM Q30D divalproex [Depakote ER] 500 mg tablet extended release 24 hr 500 mg PO ONCE omeprazole 40 mg capsule,delayed release(DR/EC) 40 mg PO DAILY Patient Comments: TAKE 1 CAPSULE BY MOUTH DAILY FOR HEARTBURN Discharge Instructions Instructions: Chest Pain, Adult ED Additional Instructions: Call your primary care doctor in the morning to schedule an appointment for within the next 48 hours to followup on your visit today. Do not take your atenolol this morning because you had it in the emergency department already. Take all of your other medications as prescribed. Return to the emergency department for new or worsening symptoms including if your pain returns, you have difficulty breathing, or if you have any other con cerns. Referrals: Brandon Foster [Primary Care Provider] - Discharge Data Discharge Date/Time-TO BE ENTERED AT DEPARTURE: 01/28/25 05:24 HPI General Mode of arrival: EMS . Date/Time Provider Initiated Documentation: 01/28/25 02:37 . Limitations to Documentation: no limitations . Information obtained by: patient and old records reviewed (ED note yesterday) . HPI Narrative: 59yo M with hx obesity, T2DM, HTN, HLD, hypothyroid, asthma, GERD, anxiety, schizoaffective disorder, presenting via EMS for chest pain. Symptoms started 1.5 hours ago, dull substernal chest pain which radiates to his left arm. Constant since onset, unrelieved by deep breathing exercises. He thinks it may be due to anxiety. Nursing note states shortness of breath; patient to me denies and shortness of breath, pleuritic pain, difficulty breathing, chest tightness, or similar symptoms. Did not take any of his home medications yesterday- he was seen in this ED yesterday morning for epigastric gurgling/med refill with plan for [facility] to deliver home medications. Patient was offered am doses of his medications in the ED prior to discharge which he refused. Otherwise in his usual state of health with no fevers, chills, rash, nausea, vomiting, abdominal pain, back pain, numbness, tingling, weakness, SI, HI, AH/VH, or other concerns. Related Data Home Medications ?Medication ?Instructions ?Recorded ?Confirmed loratadine 10 mg capsule (Claritin 1 cap PO DAILY #90 tabs 02/11/15 03/26/25 Liqui-Gel) aspirin,buffered (calcium 325 mg PO DAILY 11/18/16 01/28/25 carbonate-magnesium) 325 mg tablet benztropine 0.5 mg tablet 0.5 mg PO BID 11/18/16 01/28/25 lactulose 10 gram/15 mL oral 20 g PO DIRECTED PRN 10/03/20 01/28/25 solution albuterol sulfate 90 mcg/actuation 2 inh inhalation Q6H PRN shortness 12/15/20 01/28/25 breath activated powder inhaler of breath or wheezing #1 ea multivitamin 1 tab PO DAILY 01/26/21 01/28/25 clonazepam 0.5 mg tablet See Rx Instructions .Route .COMPLEX 03/04/23 01/28/25 gabapentin 300 mg capsule 300 mg PO QID 03/27/23 01/28/25 atenolol 25 mg tablet 75 mg PO DAILY 01/31/24 01/28/25 divalproex 500 mg tablet,extended 500 mg PO ONCE 01/31/24 01/28/25 release 24 hr (Depakote ER) omeprazole 40 mg capsule,delayed 40 mg PO DAILY 01/31/24 01/28/25 release paliperidone palmitate 117 mg/0.75 117 mg IM Q30D 01/31/24 01/28/25 mL intramuscular syringe (Invega Sustenna) simvastatin 80 mg tablet 80 mg PO DAILY 03/08/24 01/28/25 ondansetron HCl 4 mg tablet 4 mg PO Q8H PRN 07/22/24 01/28/25 bupropion HCl 75 mg tablet 150 mg PO DAILY 08/04/24 01/28/25 galcanezumab-gnlm 120 mg/mL 120 mg subcut QMONTH #1 mL 08/04/24 01/28/25 subcutaneous pen injector (Emgality Pen) rimegepant 75 mg disintegrating 75 mg PO ONCE PRN migraine 08/04/24 01/28/25 tablet (Nurtec ODT) headache #8 tabs sumatriptan succinate 100 mg tablet See Rx Instructions PO .COMPLEX #9 08/04/24 01/28/25 tabs fluoxetine 10 mg capsule See Rx Instructions PO .COMPLEX 09/24/24 01/28/25 fluoxetine 40 mg capsule 80 mg PO DAILY 09/24/24 01/28/25 metformin 500 mg tablet 500 mg PO BID 09/24/24 01/28/25 Previous Rx's ?Medication ?Instructions ?Recorded albuterol sulfate 90 mcg/actuation 2 inh inhalation Q6H PRN shortness 12/15/20 breath activated powder inhaler of breath or wheezing #1 ea galcanezumab-gnlm 120 mg/mL 120 mg subcut QMONTH #1 mL 08/04/24 subcutaneous pen injector (Emgality Pen) rimegepant 75 mg disintegrating 75 mg PO ONCE PRN migraine 08/04/24 tablet (Nurtec ODT) headache #8 tabs sumatriptan succinate 100 mg tablet See Rx Instructions PO .COMPLEX #9 08/04/24 tabs Allergies Allergy/AdvReac Type Severity Reaction Status Date / Time buspirone Allergy Other (See Verified 01/28/25 02:42 Comment) paliperidone Allergy Other (See Verified 01/28/25 02:42 Comment) paroxetine HCl (From Paxil) Allergy Other (See Verified 01/28/25 02:42 Comment) sertraline Allergy Other (See Verified 01/28/25 02:42 Comment) ziprasidone (From Geodon) Allergy Other (See Verified 01/28/25 02:42 Comment) aripiprazole (From Abilify) AdvReac Intermediate INVOLUNTARY Verified 01/28/25 02:42 MUSCLE MOVEMENTS mirtazapine AdvReac Intermediate INVOLUNTARY Verified 01/28/25 02:42 MUSCLE MOVEMENTS risperidone AdvReac Intermediate INVOLUNTARY Verified 01/28/25 02:42 MUSCLE MOVEMENTS enviornmental Allergy Mild Wheezing Uncoded 01/28/25 02:42 General Stated Complaint: Chest Pain CARLOS: 3 Review of Systems Narrative: see HPI Exam Narrative Exam Narrative: General: Alert, well appearing, obese, in no acute distress. Head: Normocephalic, atraumatic Neck: Trachea midline, ?Neck supple. ENT: ?MMM.? No oropharygeal lesions or exudate. Cardiac: ?RRR, no murmurs appreciated Resp: No respiratory distress. CTAB. Abd: ?Soft, non-distended, nontender Extremities: ?No deformities.? Neurologic: GCS 15. ? Moves all extremities freely against gravity Course Vital Signs Vital signs: Vital Signs Temperature 35.6 C L 01/28/25 02:37 Pulse 69 01/28/25 02:37 Respiratory Rate 18 01/28/25 02:37 Blood Pressure 181/85 H 01/28/25 02:37 Pulse Oximetry 99 01/28/25 02:37 Temperature 35.6 C L 01/28/25 02:37 Temperature Source Temporal Artery Scan 01/28/25 02:37 Pulse 69 01/28/25 02:37 Respiratory Rate 18 01/28/25 02:40 Respiratory Effort Normal 01/28/25 02:40 Respiratory Depth Normal 01/28/25 02:40 Respiratory Pattern Normal 01/28/25 02:40 Blood Pressure 181/85 H 01/28/25 02:37 Pulse Oximetry 99 01/28/25 02:37 Pain Level 8 01/28/25 02:37 Medical Decision Making 59yo M with hx obesity, T2DM, HTN, HLD, hypothyroid, asthma, GERD, anxiety, schizoaffective disorder, presenting via EMS for chest pain. Symptoms started 1.5 hours ago, dull substernal chest pain onset at rest which radiates to his left arm. He thinks it may be due to anxiety. Hypertensive on arrival, vital signs otherwise reassuring. He requests his home dose atenolol and klonopin which were given. So shortness of breath, hypoxia, or tachycardia to suggest PE (though pt is on beta deysi) and no back pain or neurologic symptoms to suggest aortic dissection; would not send dimer at this time. Lower suspicion for ACS but given symptoms and risk factors will give 325 of ASA while awaiting results of workup. -EKG NSR, appropriate intervals, no ST segment or T wave abnormalities to suggest occlusive AR, no concerning changes compared to prior 01/20/15. -CXR independently reviewed; no focal pneumonia or pneumothoraox on my view, radiology read with no acute findings. -Labs reviewed as below, CBC reassuring with no leukocytsois and anemia at baseline on [facility] record review, CMP with no actionable abnormalities, Mg normal, lipase not suggestive of pancreatitis, BNP not suggestive of heart failure, initial troponin <4. On reassessment chest pain persists; will treat with tylenol and GI cocktail. One hour repeat reassuring at 5. Repeat vital signs reassuring with improved blood pressure. Patient reports symptoms have resolved and requests discharge home which is reasonable with his reassuring workup here. I discussed the importance of taking his medications as prescribed and he verbalized understanding. He demonstrates the capacity to make his own decisions at this time. He is expecting a call from [facility] today. I advised to also followup closely with PCP and to return to the ED or urgent care for assistance if he is unable to obtain his medications today. Discharged home; discharge instructions and return precautions were reviewed with patient who verbalized understanding. All questions were answered and he is in full agreement with the plan. Imaging Data Radiologic Study: Imaging: X-Ray Radiologist's impression: IMPRESSION: No acute findings to explain reported symptoms Lab Data Lab results reviewed: Yes I reviewed the patient's lab results. Labs: Laboratory Tests Range/Units 01/28/25 03:08 WBC (4.4-10.8) 10^3/uL 5.14 RBC (4.36-5.78) 10^6/uL 3.58 L Hgb (13.5-17.5) g/dL 11.0 L Hct (40.0-50.0) % 33.0 L MCV (80-95) fL 92 MCH (27.0-33.0) pg 30.7 MCHC (32.0-36.0) % 33.3 RDW (11.8-14.1) % 12.6 Plt Count (130-400) 10^3/uL 104 L MPV (8.0-11.0) fL 8.8 Immature Gran % % 0.4 Neutrophils % % 51.2 Lymphocytes % % 35.0 Monocytes % % 10.5 Eosinophils % % 2.5 Basophils % % 0.4 Nucleated RBC % (0.0-0.3) % 0.0 Absolute Neutrophils (1.2-6.7) 10^3/uL 2.63 Absolute Lymphocytes (1.2-3.4) 10^3/uL 1.80 Absolute Monocytes (0.1-0.8) 10^3/uL 0.54 Absolute Eosinophils (0.0-0.7) 10^3/uL 0.13 Absolute Basophils (0.0-0.2) 10^3/uL 0.02 Sodium (136-145) mmol/L 133 L Potassium (3.5-5.1) mmol/L 4.5 Chloride (98-107) mmol/L 97 L Carbon Dioxide (21.0-32.0) mmol/L 30.0 Anion Gap (3-11) mmol/L 6.0 BUN (7-18) mg/dL 8 Creatinine (0.70-1.30) mg/dL 0.9 Est GFR (CKD-EPI 2020) (mL/min/1.73m2) 98.38 Glucose (74-106) mg/dL 105 Calcium (8.5-10.1) mg/dL 8.7 Magnesium mg/dL 1.8 Total Bilirubin (0.2-1.0) mg/dL 0.2 AST (15-37) U/L 14 L ALT (16-63) U/L 24 Alkaline Phosphatase (46-116) U/L 68 Troponin I (<or=76) ng/L < 4 NT-Pro-B Natriuret Pep (<300) pg/mL 219 Total Protein (6.4-8.2) g/dL 7.3 Albumin (3.4-5.0) g/dL 3.3 L Lipase (<78) U/L 11 Quality:SDOH Health Related Social Needs: Health related social needs feeling lonely/isolated (Z 60.8) PFSH All Active Problems (Updated 01/28/25 @ 05:11 by Sparkle Slater MD) Schizophrenia (Chronic) Hypertension (Chronic) Chest pain (Acute) Medication refill (Acute) Epigastric discomfort (Acute) Knee pain (Acute) Dental caries (Acute) Nicotine dependence (Acute) Dyspnea on exertion (Acute) Shortness of breath (Acute) Hypercholesterolemia (Chronic 09/07/14) pt insists on lipitor 80 mg due to family hx Depression (Acute 10/02/14) Left-sided chest wall pain (Acute) Chest pain (Acute) Chronic headache (Acute) Migraine headache without aura (Acute) Migraine (Chronic) Poor dentition (Acute) Tobacco use disorder (Chronic) started 2013 1.5 ppd, pipe 1-7/week, QUIT LATE OCT 2021 Allergic rhinitis (Chronic) lortadine Hiatal hernia (Chronic) protonix not effective, nexium works better 02/12/18 Anemia (Chronic) Broken teeth (Chronic) Drug-seeking behavior (Chronic ~09/20/21) Requests Ritalin from providers Medication overuse headache (Acute) Medical History Obesity BMI 52 Hypertension pt requests brand name Tenormin vs atenolol 04/02/18 GERD (gastroesophageal reflux disease) (09/07/14) Diabetes mellitus type 2 in obese (09/09/14) Hypothyroidism (acquired) (09/07/14) Schizoaffective disorder (09/07/14) Rebekah Mariscal [facility] 09/2014- [facility] inpatient Trigeminal neuralgia Anxiety Mitral valve prolapse Hyperlipidemia Peripheral neuropathy Surgical History No significant past surgical history Family History Father Heart disease AR Social History Smoking/Tobacco Use Status: Former Tobacco Use Smoking risk assessment performed?: Yes Alcohol Intake: never Drug use: Never Substance use type: does not use Adopted: No Caregiver/Support person: No Foster care: No Household members: none Housing: apartment Number of Children: 2 number of grandchildren: 1 Communication Needs: Corrective Lenses Education Level: college Do you need help understanding health information?: Always current occupation: Unemployed/Leave of absence Sexually active: No Do you think of yourself as: Decline to provide Current gender identity: male What type of physical activity do you participate in: other Details: weight lifting Frequency: 3-4 times per week Magalie/Quaker: Episcopal Seatbelt use: always Drive intox or ride w/intox local city 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
[2025-01-28] MEDS: Aspirin 81 MG CHEW 324 MG CH (03:09)
[2025-01-28] MEDS: clonazePAM 1 MG TAB PO (03:10)
[2025-01-28 03:14] LABS: Abs Immature Grans 0.02 10^3/uL (0.0-0.06); Absolute Basophil Count 0.02 10^3/uL (0.0-0.2); Absolute Eosinophil Count 0.13 10^3/uL (0.0-0.7); Absolute Monocyte Count 0.54 10^3/uL (0.1-0.8); Absolute Neutrophil Count 2.63 10^3/uL (1.2-6.7); Basophils % 0.4 %; Eosinophils % 2.5 %; Immature Grans % 0.4 %; MCH 30.7 pg (27.0-33.0); MCHC 33.3 % (32.0-36.0); MCV 92 fL (80-95); MPV 8.8 fL (8.0-11.0); Monocytes % 10.5 %; Neutrophils % 51.2 %; Platelet Count 104 10^3/uL (130-400); RBC 3.58 10^6/uL (4.36-5.78); RDW 12.6 % (11.8-14.1); RDW-SD 42.6 fL; WBC 5.14 10^3/uL (4.4-10.8)
--- NOTE | 2025-01-28 03:14 | NUR.NOTE ---
PT to rad Nursing Note:
[2025-01-28] MEDS: Atenolol 50 MG TAB 75 MG PO (03:25)
[2025-01-28 03:36] LABS: ALT 24 U/L (16-63); AST 14 U/L (15-37); Albumin 3.3 g/dL (3.4-5.0); Alkaline Phosphatase 68 U/L (46-116); BUN 8 mg/dL (7-18); Bilirubin, Total 0.2 mg/dL (0.2-1.0); CREATININE 0.9 mg/dL (0.70-1.30); Calcium 8.7 mg/dL (8.5-10.1); Chloride 97 mmol/L (98-107); Estimated GFR 98.38 (mL/min/1.73m2); Glucose 105 mg/dL (74-106); Lipase 11 U/L (<78); Magnesium 1.8 mg/dL; NT-proBNP 219 pg/mL (<300); Potassium 4.5 mmol/L (3.5-5.1); Sodium 133 mmol/L (136-145); Total Protein 7.3 g/dL (6.4-8.2); Troponin I < 4 ng/L (<or=76)
[2025-01-28 03:45] VITALS: BP 139/73; PULSE 60; RESP 18; O2SAT 97
[2025-01-28] MEDS: Acetaminophen 500 MG TAB 1000 MG PO (04:08)
--- NOTE | 2025-01-28 05:03 | DI.VRAD_ITS ---
PROCEDURE INFORMATION: Exam: XR Chest Exam date and time: 01/28/2025 3:16 AM Age: 59 years old Clinical indication: Other: Chest pain TECHNIQUE: Imaging protocol: Radiologic exam of the chest. Views: 2 views. COMPARISON: CR XR CHEST 2V PA LATERAL 12/10/2024 4:30 PM FINDINGS: Lungs: No focal consolidation seen. Pleural spaces: No large pleural effusion seen. Heart/Mediastinum: No cardiomegaly. Bones/joints: No acute abnormality. IMPRESSION: No acute findings to explain reported symptoms. Dictated and Authenticated by: Johanny Del Rio MD. Orderin Bryon Villagran MD
[2025-01-28 05:04] LABS: Troponin I 5 ng/L (<or=76)
[2025-01-28 05:24] VITALS: BP 134/80; PULSE 56; RESP 18; O2SAT 96
== END 2025-01-28 05:24 | disposition home or self-care (01) ==
PROVIDERS: Emergency Provider Student in an Organized Health Care Education/Training Program; PCP Family Medicine
DX: R07.9 Chest pain, unspecified (principal); I10 Essential (primary) hypertension; E78.5 Hyperlipidemia, unspecified; E03.9 Hypothyroidism, unspecified; F20.9 Schizophrenia, unspecified; Z79.84 Long term (current) use of oral hypoglycemic drugs; Z79.82 Long term (current) use of aspirin; Z87.891 Personal history of nicotine dependence
CPT/HCPCS: 36415; 80053; 83690; 93005; 99285; 71046; 83735; 83880; 84484; 85025; 93010; 99284

== ENCOUNTER 2025-02-11 11:34 | Emergency (ER) | payer MEDICAID, SELFPAY ==
[2025-02-11] VITALS (32 sets, daily range): BP systolic 136–189; BP diastolic 62–148; PULSE 66–93; RESP 15–23; TEMP 37.1; O2SAT 94–98
--- NOTE | 2025-02-11 11:45 | DI.RAD_ITS ---
Exam(s) XR CHEST 2V PA LATERAL EXAM: XR CHEST 2V PA LATERAL CLINICAL HISTORY: cough/SOB TECHNIQUE: 2D digital imaging was performed of the chest. Two images were obtained. PA and lateral views were obtained. COMPARISON: CR,XR XR CHEST 2V PA LATERAL from 01/28/2025 FINDINGS: There is motion artifact on the lateral view. MEDIASTINUM: Normal. HEART: Normal. PULMONARY VASCULATURE: Normal. LUNGS: Clear. PLEURAL SPACE: No pleural effusion or pneumothorax. BONE:Within normal limits for the patient's age. OTHER FINDINGS:Normal. IMPRESSION: No acute pulmonary findings. DATA REPOSITORY: RADIATION DOSE DELIVERED:
--- NOTE | 2025-02-11 11:45 | DI.CT_ITS ---
Exam(s) CT BRAIN NECK CTA EXAM: CT BRAIN NECK CTA CLINICAL HISTORY: Dizzy, poor balance, nausea. TECHNIQUE: Imaging Protocol: Axial CT angiography was performed with multi-slice acquisition and mu lti-planar and/or 3D reconstructions. CONTRAST MATERIAL: Intravenous: Omnipaque 350 contrast volume:70 mL COMPARISON: CT CT HEAD WO from 05/29/2024 FINDINGS: CT Head W/O and W: Ventricles and Extra axial spaces: Normal in size and morphology for the patient's age. Hemorrhage: None. Cerebral parenchyma: No acute territorial infarct is present. Midline shift: None. Brainstem/Cerebellum: Normal. Calvarium: Normal. Visualized Paranasal sinuses/Mastoids: Clear. Soft Tissues: Unremarkable. Enhancement: Unremarkable. CTA Neck W: Common Carotid: Right: No dissection, occlusion or significant stenosis. Left: No dissection, occlusion or significant stenosis. External Carotid: Right: No occlusion or significant stenosis. Left: No occlusion or significant stenosis. Internal Carotid: Right: No dissection, occlusion or significant stenosis. Left: No dissection, occlusion or significant stenosis. Vertebral Artery: Right: No dissection, occlusion or significant stenosis. Left: No dissection, occlusion or significant stenosis. Lung Apices: Normal. Bones: Within normal limits for the patient's age. Age-appropriate degenerative changes are present. Soft Tissues: Normal. Thyroid gland: Unremarkable. CTA Brain W: Internal Carotid Arteries: There is mild atherosclerotic calcification present. No aneurysm, occlusi on or significant stenosis is present. Anterior Cerebral Arteries: Right: No aneurysm, occlusion or significant stenosis. Left: No aneurysm, occlusion or significant stenosis. Middle Cerebral Arteries: Right: No aneurysm, occlusion or significant stenosis. Left: No aneurysm, occlusion or significant stenosis. Posterior Cerebral Arteries: Right: No aneurysm, occlusion or significant stenosis. Left: No aneurysm, occlusion or significant stenosis. Vertebral Arteries: Right: No aneurysm, occlusion or significant stenosis. Left: No aneurysm, occlusion or significant stenosis. Basilar Artery: No aneurysm, occlusion or significant stenosis. IMPRESSION: 1. No large vessel occlusion or significant stenosis on the CT angiography of the head. 2. No acute intracranial process. 3. No occlusion or significant stenosis on the CT angiography of the neck. RADIATION DOSE DELIVERED: 2,636.49mGy.cm Total DLP DATA REPOSITORY: All CT scans at this facility are submitted to the National Radiology Data Registry (NRDR) Dose Index Registry (DIR) with the [employer] (ACR). RADIATION OPTIMIZATION: All CT scans at this facility use at least one of these dose optimization te chniques: automated exposure control; mA and/or kV adjustment per patient size (includes targeted exa ms where dose is matched to clinical indication); or iterative reconstruction.
--- NOTE | 2025-02-11 11:45 | RT.EKG_ITS ---
APPROVED REPORT Exam: Resting ECG Reason for Exam: Lightheadedness Patient Location: E HR:90 bpm ECG Measurements Heart Rate 90 AXIS MS 178 P 49 QRSd 109 QRS 44 QT 377 T 58 QTc 463 Conclusion Sinus rhythm, rate 90 No interval abnormalities No STEMI No significant changes from priors
--- NOTE | 2025-02-11 11:54 | W.ED.GENAD ---
Discharge Plan Disposition Patient Disposition: Home Condition: Stable Discharge Details Clinical Impression: Lightheadedness Primary Care Provider: Brandon Foster ED Provider: Katarzyna Jennings Home Meds and New Rx's Prescriptions: New ondansetron 4 mg tablet,disintegrating 4 mg PO Q8H PRNQty: 10 0RF No Action gabapentin 300 mg capsule 300 mg PO QID bupropion HCl 75 mg tablet 150 mg PO DAILY Rx Instructions: administer 6 hours apart sumatriptan succinate 100 mg tablet See Rx Instructions PO .COMPLEX Qty: 9 5RF Rx Instructions: take 1 tab at onset of headache; if no relief, may repeat 1 tab after at least 2 hrs; max = 2 tabs/24 hrs PO Nurtec ODT 75 mg tablet,disintegrating 75 mg PO ONCE PRN (Reason: migraine headache) Qty: 8 5RF Rx Instructions: as a single dose; no more than 1 tab per day Emgality Pen 120 mg/mL pen injector 120 mg subcut QMONTH Qty: 1 11RF Claritin Liqui-Gel 10 MG capsule 1 cap PO DAILY Qty: 90 metformin 500 mg tablet 500 mg PO BID fluoxetine 10 mg capsule See Rx Instructions PO .COMPLEX Patient Comments: Pt states he takes two tablets per day in the AM 11/15/24 - ML Rx Instructions: 5 mg orally AM; 10 mg afaternoon, 20 mg HS per PCP list 09/24/24 fluoxetine 40 mg capsule 80 mg PO DAILY multivitamin Tablet 1 tab PO DAILY clonazepam 0.5 mg tablet See Rx Instructions .ROUTE .COMPLEX Rx Instructions: 1 tab in AM, 1 tab at Noon and 2 tab QHS simvastatin 80 mg tablet 80 mg PO DAILY Patient Comments: Take 1 tablet by mouth once a day ondansetron HCl 4 mg tablet 4 mg PO Q8H PRN Patient Comments: Take 1 tablet by mouth every eight hours as needed as directed benztropine 0.5 MG tablet 0.5 mg PO BID aspirin,buffd-calcium carb-mag 325 MG tablet 325 mg PO DAILY lactulose 10 gram/15 mL solution 20 g PO DIRECTED PRN Patient Comments: TAKE ONE TO TWO TABLESPOONS BY MOUTH NEEDED WHEN 3 DAYS PASS WITHOUT BOWEL MOVEMENT albuterol sulfate 90 mcg/actuation aerosol powdr breath activated 2 inh IH Q6H PRN (Reason: shortness of breath or wheezing) Qty: 1 0RF atenolol 25 mg tablet 75 mg PO DAILY Patient Comments: Take 3 tablet by mouth once a day Invega Sustenna 117 mg/0.75 mL syringe 117 mg IM Q30D divalproex [Depakote ER] 500 mg tablet extended release 24 hr 500 mg PO ONCE omeprazole 40 mg capsule,delayed release(DR/EC) 40 mg PO DAILY Patient Comments: TAKE 1 CAPSULE BY MOUTH DAILY FOR HEARTBURN Discharge Instructions Instructions: Dizziness, Nonvertigo, (DC) Additional Instructions: You were seen in the emergency department today for evaluation of lightheadedness and balance changes, which were likely due to dehydration. In our department you had a full physical examination performed, you had laboratory studies that were reassuring and had a CT scan of your brain that did not show any abnormalities such as stroke or blood vessel problems. I discussed your case with the neurologist who feels that this is probably due to your dehydration as your symptoms got slightly better after fluids. It is safe for you to go home but I have provided you with a refill of your Zofran so that you can maintain good hydration. Please follow-up with your primary care provider in the next few days to discuss this visit and any symptoms that change, worsen, or persist. Thank you for allowing us to be part of your care. HPI General Mode of arrival: EMS. Date/Time Provider Initiated Documentation: 02/11/25 11:40. Limitations to Documentation: no limitations. Information obtained by: patient, EMS and old records reviewed. HPI Narrative: HPI: This is a 59-year-old male patient with a past medical history significant for schizoaffective disorder, hypertension, diabetes, and hyperlipidemia as well as mitral valve prolapse who is presenting for evaluation of lightheadedness, brain fog, and poor balance. The patient reports that he went to bed in his normal state of health yesterday, woke up this morning and felt lightheaded/dizzy. He reports that he had the sensation that his brain is numb. He felt off balance when he walked to the front door to meet EMS, which is new for him. The patient also had symptoms of nausea at home, took an oral Zofran, and felt slightly short of breath for which he used his rescue inhaler which helped significantly. He is not experiencing a mild frontal headache, is not experiencing any chest pain or abdominal pain, has not had vomiting. He denies weakness or numbness of any part of his body, is not experiencing vision loss but is experiencing photophobia. Exam: Gen: awake and alert, in no apparent distress. Appears well nourished. HEENT: PERRL, EOMs full and without nystagmus. External ears and nose normal, mucous membranes moist. Neck: Supple, full range of motion, no observable masses Lungs: No increased work of breathing, lung sounds clear and equal bilaterally without wheezes, rhonchi, or rales. CV: Heart with regular rate and rhythm, systolic murmur appreciated likely secondary to his known mitral valve prolapse. Strong radial pulses. Abdomen: Soft, nondistended, non-tender to palpation. No rigidity, rebound tenderness, or guarding. MSK: No joint swelling, no redness. Full ROM without limitation, no external traumatic findings. Skin: No rashes or lesions to visualized skin. Normal color, warm, and dry. Neuro: Cranial nerves II-XII intact and symmetrical bilaterally. 5/5 strength bilateral lower extremities, 4 out of 5 strength bilateral upper extremities though symmetrical and without pronator drift. No sensory deficits. Ambulates with slow gait with no apparent ataxia Psych: Appropriate for situation. MDM: This is a 59-year-old male patient presenting for evaluation of brain fog, dizziness, and shortness of breath that started this morning. Differential includes but is not limited to CVA, intracranial hemorrhage, mass effect, certainly considered primary headache disturbance including migraine, tension headache, cluster headache. Considered dehydration, metabolic electrolyte derangement, kidney injury, arrhythmia, ACS, and pulmonary abnormalities including pneumonia, reactive airway disease exacerbation, etc. Reassuringly, the patient is hemodynamically appropriate though mildly hypertensive, and his neuro examination is without significant deficit at this time. His last known well was at bedtime last night and he does not meet criteria for a stroke activation, but we will proceed with CTA of the brain and neck. I will also obtain an EKG, laboratory studies to include CBC, CMP, magnesium, INR, troponin, and will provide the patient with a dose of Zofran and IV fluids for symptomatic management. ED Course: I independently interpreted the laboratory studies, which show no significant leukocytosis, stable anemia and thrombocytopenia compared to priors. The chemistry panel is without evidence of electrolyte abnormality, kidney dysfunction, or liver injury. Troponin was negative and without significant delta change on 1 hour recheck. EKG reviewed by myself and shows a normal sinus rhythm without ischemia, interval abnormality or ectopy. The patient reports that his lightheadedness improved with fluids, and I independently reviewed his CTA of his brain and neck, which shows no evidence of intracranial hemorrhage, large vessel occlusion, or other abnormality to explain his symptoms. The patient tolerated oral intake, and I did discuss the case with teleneurology, who feels that this is unlikely to represent an acute stroke, and I am in agreement given his improvement in symptoms with rehydration, and his NIH score of 0 without true ataxia on my physical examination. Given his reassuring workup I feel that it is appropriate for this patient to be discharged, but I did provide him with a refill of his Zofran to allow him to continue to maintain good nutrition and hydration. The patient states that he thinks that his anxiety medication needs to be increased, and I recommended that he contact his primary care provider to discuss changes in long-term medications. The patient does question whether he needs to be admitted so that he can be observed for this medication is changed, though at this time I see no indication to do so, he screens negative for suicidal and homicidal ideation, and I do not think he meets criteria at this time for inpatient psychiatric placement. This was shared with him though he was counseled that he can always return for reevaluation if he has ongoing concerns. At this time, the patient has had a full medical evaluation and is safe for discharge to home. They are hemodynamically stable, ambulatory, and tolerating PO. They are understanding of the follow-up plan and return precautions. They left our facility without incident. Katarzyna Jennings MD Related Data Home Medications ?Medication ?Instructions ?Recorded ?Confirmed loratadine 10 mg capsule (Claritin 1 cap PO DAILY #90 tabs 12/16/14 02/11/25 Liqui-Gel) aspirin,buffered (calcium 325 mg PO DAILY 11/18/16 02/11/25 carbonate-magnesium) 325 mg tablet benztropine 0.5 mg tablet 0.5 mg PO BID 11/18/16 02/11/25 lactulose 10 gram/15 mL oral 20 g PO DIRECTED PRN 10/03/20 02/11/25 solution albuterol sulfate 90 mcg/actuation 2 inh inhalation Q6H PRN shortness 12/15/20 02/11/25 breath activated powder inhaler of breath or wheezing #1 ea multivitamin 1 tab PO DAILY 01/26/21 02/11/25 clonazepam 0.5 mg tablet See Rx Instructions .Route .COMPLEX 03/04/23 02/11/25 gabapentin 300 mg capsule 300 mg PO QID 03/27/23 02/11/25 atenolol 25 mg tablet 75 mg PO DAILY 01/31/24 02/11/25 divalproex 500 mg tablet,extended 500 mg PO ONCE 01/31/24 02/11/25 release 24 hr (Depakote ER) omeprazole 40 mg capsule,delayed 40 mg PO DAILY 01/31/24 02/11/25 release paliperidone palmitate 117 mg/0.75 117 mg IM Q30D 01/31/24 02/11/25 mL intramuscular syringe (Invega Sustenna) simvastatin 80 mg tablet 80 mg PO DAILY 03/08/24 02/11/25 ondansetron HCl 4 mg tablet 4 mg PO Q8H PRN 07/22/24 02/11/25 bupropion HCl 75 mg tablet 150 mg PO DAILY 08/04/24 02/11/25 galcanezumab-gnlm 120 mg/mL 120 mg subcut QMONTH #1 mL 08/04/24 02/11/25 subcutaneous pen injector (Emgality Pen) rimegepant 75 mg disintegrating 75 mg PO ONCE PRN migraine 08/04/24 02/11/25 tablet (Nurtec ODT) headache #8 tabs sumatriptan succinate 100 mg tablet See Rx Instructions PO .COMPLEX #9 08/04/24 02/11/25 tabs fluoxetine 10 mg capsule See Rx Instructions PO .COMPLEX 09/24/24 02/11/25 fluoxetine 40 mg capsule 80 mg PO DAILY 09/24/24 02/11/25 metformin 500 mg tablet 500 mg PO BID 09/24/24 02/11/25 ondansetron 4 mg disintegrating 4 mg PO Q8H PRN #10 tabs 02/11/25 tablet Previous Rx's ?Medication ?Instructions ?Recorded albuterol sulfate 90 mcg/actuation 2 inh inhalation Q6H PRN shortness 12/15/20 breath activated powder inhaler of breath or wheezing #1 ea galcanezumab-gnlm 120 mg/mL 120 mg subcut QMONTH #1 mL 08/04/24 subcutaneous pen injector (Emgality Pen) rimegepant 75 mg disintegrating 75 mg PO ONCE PRN migraine 08/04/24 tablet (Nurtec ODT) headache #8 tabs sumatriptan succinate 100 mg tablet See Rx Instructions PO .COMPLEX #9 08/04/24 tabs ondansetron 4 mg disintegrating 4 mg PO Q8H PRN #10 tabs 02/11/25 tablet Allergies Allergy/AdvReac Type Severity Reaction Status Date / Time buspirone Allergy Other (See Verified 01/28/25 02:42 Comment) paliperidone Allergy Other (See Verified 01/28/25 02:42 Comment) paroxetine HCl (From Paxil) Allergy Other (See Verified 01/28/25 02:42 Comment) sertraline Allergy Other (See Verified 01/28/25 02:42 Comment) ziprasidone (From Geodon) Allergy Other (See Verified 01/28/25 02:42 Comment) aripiprazole (From Abilify) AdvReac Intermediate INVOLUNTARY Verified 01/28/25 02:42 MUSCLE MOVEMENTS mirtazapine AdvReac Intermediate INVOLUNTARY Verified 01/28/25 02:42 MUSCLE MOVEMENTS risperidone AdvReac Intermediate INVOLUNTARY Verified 01/28/25 02:42 MUSCLE MOVEMENTS enviornmental Allergy Mild Wheezing Uncoded 01/28/25 02:42 General Stated Complaint: Dizzy/Sync CARLOS: 3 Course Vital Signs Vital signs: Vital Signs Temperature 37.1 C 02/11/25 11:34 Pulse 93 H 02/11/25 11:34 Respiratory Rate 18 02/11/25 11:34 Blood Pressure 187/78 H 02/11/25 11:34 Pulse Oximetry 95 02/11/25 11:34 Temperature 37.1 C 02/11/25 11:34 Temperature Source Oral 02/11/25 11:34 Pulse 93 H 02/11/25 11:34 Respiratory Rate 18 02/11/25 11:34 Blood Pressure 187/78 H 02/11/25 11:34 Pulse Oximetry 95 02/11/25 11:34 Oxygen Delivery Method Room Air 02/11/25 11:34 Oxygen Flow Rate 0 02/11/25 11:34 Pain Level 4 02/11/25 11:34 Medical Decision Making Quality:SDOH Health Related Social Needs: Health related social needs feeling lonely/isolated (Z60.8) PFSH All Active Problems (Updated 02/11/25 @ 15:16 by Katarzyna Jennings MD) Lightheadedness (Acute) Schizophrenia (Chronic) Hypertension (Chronic) Chest pain (Acute) Medication refill (Acute) Epigastric discomfort (Acute) Knee pain (Acute) Dental caries (Acute) Nicotine dependence (Acute) Dyspnea on exertion (Acute) Shortness of breath (Acute) Hypercholesterolemia (Chronic 09/07/14) pt insists on lipitor 80 mg due to family hx Depression (Acute 10/02/14) Left-sided chest wall pain (Acute) Chest pain (Acute) Chronic headache (Acute) Migraine headache without aura (Acute) Migraine (Chronic) Poor dentition (Acute) Tobacco use disorder (Chronic) started 2013 1.5 ppd, pipe 1-7/week, QUIT LATE OCT 2021 Allergic rhinitis (Chronic) lortadine Hiatal hernia (Chronic) protonix not effective, nexium works better 02/12/18 Anemia (Chronic) Broken teeth (Chronic) Drug-seeking behavior (Chronic ~09/20/21) Requests Ritalin from providers Medication overuse headache (Acute) Medical History Obesity BMI 52 Hypertension pt requests brand name Tenormin vs atenolol 04/02/18 GERD (gastroesophageal reflux disease) (09/07/14) Diabetes mellitus type 2 in obese (09/09/14) Hypothyroidism (acquired) (09/07/14) Schizoaffective disorder (09/07/14) Rebekah Mariscal YENI 09/2014- [facility] inpatient Trigeminal neuralgia Anxiety Mitral valve prolapse Hyperlipidemia Peripheral neuropathy Surgical History No significant past surgical history Family History Father Heart disease [place] Social History Smoking/Tobacco Use Status: Former Tobacco Use Smoking risk assessment performed?: Yes Alcohol Intake: never Drug use: Never Substance use type: does not use Adopted: No Caregiver/Support person: No Foster care: No Household members: none Housing: apartment Number of Children: 2 number of grandchildren: 1 Communication Needs: Corrective Lenses Education Level: college Do you need help understanding health information?: Always current occupation: Unemployed/Leave of absence Sexually active: No Do you think of yourself as: Decline to provide Current gender identity: male What type of physical activity do you participate in: other Details: weight lifting Frequency: 3-4 times per week Magalie/Orthodoxy: Judaism Seatbelt use: always Drive intox or ride w/intox auto crane 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
[2025-02-11 12:18] LABS: Abs Immature Grans 0.03 10^3/uL (0.0-0.06); Absolute Basophil Count 0.02 10^3/uL (0.0-0.2); Absolute Eosinophil Count 0.09 10^3/uL (0.0-0.7); Absolute Lymphocyte Count 0.76 10^3/uL (1.2-3.4); Absolute Monocyte Count 0.66 10^3/uL (0.1-0.8); Absolute Neutrophil Count 7.07 10^3/uL (1.2-6.7); Basophils % 0.2 %; HCT 33.1 % (40.0-50.0); HGB 11.1 g/dL (13.5-17.5); Immature Grans % 0.3 %; Lymphocytes % 8.8 %; MCH 31.3 pg (27.0-33.0); MCHC 33.5 % (32.0-36.0); MCV 93 fL (80-95); MPV 8.7 fL (8.0-11.0); Monocytes % 7.6 %; Neutrophils % 82.1 %; Platelet Count 114 10^3/uL (130-400); RBC 3.55 10^6/uL (4.36-5.78); RDW 12.5 % (11.8-14.1); RDW-SD 42.5 fL; WBC 8.63 10^3/uL (4.4-10.8)
[2025-02-11] MEDS: Ondansetron 4 MG/2 ML VIAL IVP (12:23)
[2025-02-11 12:31] LABS: Prothrombin Time 9.7 sec (9.1-11.1)
[2025-02-11] MEDS: Normal Saline - Diluent 50 ML VIAL IJ (12:35)
[2025-02-11] MEDS: Omnipaque 350 MG/ML 100 ML BTL IJ (12:36)
[2025-02-11 12:41] LABS: ALT 28 U/L (16-63); AST 15 U/L (15-37); Albumin 3.2 g/dL (3.4-5.0); Alkaline Phosphatase 74 U/L (46-116); Anion Gap 9.2 mmol/L (3-11); BUN 12 mg/dL (7-18); Bilirubin, Total 0.3 mg/dL (0.2-1.0); CO2 26.8 mmol/L (21.0-32.0); CREATININE 0.9 mg/dL (0.70-1.30); Calcium 8.8 mg/dL (8.5-10.1); Chloride 99 mmol/L (98-107); Estimated GFR 98.38 (mL/min/1.73m2); Glucose 231 mg/dL (74-106); Magnesium 1.5 mg/dL; Potassium 4.5 mmol/L (3.5-5.1); Sodium 135 mmol/L (136-145); Total Protein 7.5 g/dL (6.4-8.2); Troponin I 5 ng/L (<or=76)
[2025-02-11] MEDS: Lactated Ringers 1,000 ML 1000 ML IV (12:59)
[2025-02-11] MEDS: Acetaminophen 500 MG TAB 1000 MG PO (13:04)
[2025-02-11 13:16] LABS: Troponin I 9 ng/L (<or=76)
== END 2025-02-11 15:25 | disposition home or self-care (01) ==
PROVIDERS: Emergency Provider Emergency Medicine; PCP Family Medicine
DX: R42 Dizziness and giddiness (principal); R11.0 Nausea; Z60.8 Other problems related to social environment; E86.0 Dehydration
CPT/HCPCS: 99284; 99285; 36415; 70496; 70498; 80053; 93005; 96361; 96374; 71046; 83735; 84484; 85025; 85610; 93010; J2405; J3490

== ENCOUNTER 2025-03-31 22:35 | Emergency (ER) | payer MEDICAID, SELFPAY ==
[2025-03-31 22:37] VITALS: BP 175/93; PULSE 73; RESP 16; TEMP 36.9; O2SAT 95
--- NOTE | 2025-03-31 22:40 | W.ED.GENAD ---
Discharge Plan Disposition Patient Disposition: Home Condition: Good Discharge Details Clinical Impression: Headache, Palpitations Primary Care Provider: Brandon Foster ED Provider: Dariel Matthews [place] Meds and New Rx's Prescriptions: Continued gabapentin 300 mg capsule 300 mg PO QID bupropion HCl 75 mg tablet 150 mg PO DAILY Rx Instructions: administer 6 hours apart sumatriptan succinate 100 mg tablet See Rx Instructions PO .COMPLEX Qty: 9 5RF Rx Instructions: take 1 tab at onset of headache; if no relief, may repeat 1 tab after at least 2 hrs; max = 2 tabs/24 hrs PO Nurtec ODT 75 mg tablet,disintegrating 75 mg PO ONCE PRN (Reason: migraine headache) Qty: 8 5RF Rx Instructions: as a single dose; no more than 1 tab per day Emgality Pen 120 mg/mL pen injector 120 mg subcut QMONTH Qty: 1 11RF Claritin Liqui-Gel 10 MG capsule 1 cap PO DAILY Qty: 90 metformin 500 mg tablet 500 mg PO BID fluoxetine 10 mg capsule See Rx Instructions PO .COMPLEX Patient Comments: Pt states he takes two tablets per day in the AM 11/15/24 - ML Rx Instructions: 5 mg orally AM; 10 mg afaternoon, 20 mg HS per PCP list 09/24/24 fluoxetine 40 mg capsule 80 mg PO DAILY multivitamin Tablet 1 tab PO DAILY clonazepam 0.5 mg tablet See Rx Instructions .ROUTE .COMPLEX Rx Instructions: 1 tab in AM, 1 tab at Noon and 2 tab QHS simvastatin 80 mg tablet 80 mg PO DAILY Patient Comments: Take 1 tablet by mouth once a day ondansetron HCl 4 mg tablet 4 mg PO Q8H PRN Patient Comments: Take 1 tablet by mouth every eight hours as needed as directed benztropine 0.5 MG tablet 0.5 mg PO BID aspirin,buffd-calcium carb-mag 325 MG tablet 325 mg PO DAILY lactulose 10 gram/15 mL solution 20 g PO DIRECTED PRN Patient Comments: TAKE ONE TO TWO TABLESPOONS BY MOUTH NEEDED WHEN 3 DAYS PASS WITHOUT BOWEL MOVEMENT albuterol sulfate 90 mcg/actuation aerosol powdr breath activated 2 inh IH Q6H PRN (Reason: shortness of breath or wheezing) Qty: 1 0RF atenolol 25 mg tablet 75 mg PO DAILY Patient Comments: Take 3 tablet by mouth once a day Invega Sustenna 117 mg/0.75 mL syringe 117 mg IM Q30D divalproex [Depakote ER] 500 mg tablet extended release 24 hr 500 mg PO ONCE omeprazole 40 mg capsule,delayed release(DR/EC) 40 mg PO DAILY Patient Comments: TAKE 1 CAPSULE BY MOUTH DAILY FOR HEARTBURN ondansetron 4 mg tablet,disintegrating 4 mg PO Q8H PRNQty: 10 0RF Discharge Instructions Additional Instructions: You were seen in the ED for eye/head pain as well as palpitations. Your exam and EKG are reassuring. 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 Should also follow-up with primary care. Return to ED for any acute change in vision, severe worsening headache, neurologic change, persistent vomiting, chest pain, other concerns. Referrals: Brandon Foster [Primary Care Provider] - [facility] General Mode of arrival: EMS. Date/Time Provider Initiated Documentation: 03/31/25 22:38. Information obtained by: patient, RN notes reviewed and old records reviewed. HPI Narrative: Patient presents to ED by ambulance with complaint of eyes/head pain and occasional skipped heartbeats. Patient reports that the pain started about 8 PM. Seems to be mostly pain behind his eyes and is not a foreign body sensation. It involves both eyes. There is been no vision change. He has had this before though not recently. He has history of chronic headaches and migraines but is unclear whether this is similar or not. He is not having any fever or URI symptoms. He denies chest pain or shortness of breath. There has been no neurologic change in regards to sensation, strength, gait. Related Data Home Medications ?Medication ?Instructions ?Recorded ?Confirmed loratadine 10 mg capsule (Claritin 1 cap PO DAILY #90 tabs 12/16/14 03/31/25 Liqui-Gel) aspirin,buffered (calcium 325 mg PO DAILY 11/18/16 03/31/25 carbonate-magnesium) 325 mg tablet benztropine 0.5 mg tablet 0.5 mg PO BID 11/18/16 03/31/25 lactulose 10 gram/15 mL oral 20 g PO DIRECTED PRN 10/03/20 03/31/25 solution albuterol sulfate 90 mcg/actuation 2 inh inhalation Q6H PRN shortness 12/15/20 03/31/25 breath activated powder inhaler of breath or wheezing #1 ea multivitamin 1 tab PO DAILY 01/26/21 03/31/25 clonazepam 0.5 mg tablet See Rx Instructions .Route .COMPLEX 03/04/23 03/31/25 gabapentin 300 mg capsule 300 mg PO QID 03/27/23 03/31/25 atenolol 25 mg tablet 75 mg PO DAILY 01/31/24 03/31/25 divalproex 500 mg tablet,extended 500 mg PO ONCE 01/31/24 03/31/25 release 24 hr (Depakote ER) omeprazole 40 mg capsule,delayed 40 mg PO DAILY 01/31/24 03/31/25 release paliperidone palmitate 117 mg/0.75 117 mg IM Q30D 01/31/24 03/31/25 mL intramuscular syringe (Invega Sustenna) simvastatin 80 mg tablet 80 mg PO DAILY 03/08/24 03/31/25 ondansetron HCl 4 mg tablet 4 mg PO Q8H PRN 07/22/24 03/31/25 bupropion HCl 75 mg tablet 150 mg PO DAILY 08/04/24 03/31/25 galcanezumab-gnlm 120 mg/mL 120 mg subcut QMONTH #1 mL 08/04/24 03/31/25 subcutaneous pen injector (Emgality Pen) rimegepant 75 mg disintegrating 75 mg PO ONCE PRN migraine 08/04/24 03/31/25 tablet (Nurtec ODT) headache #8 tabs sumatriptan succinate 100 mg tablet See Rx Instructions PO .COMPLEX #9 08/04/24 03/31/25 tabs fluoxetine 10 mg capsule See Rx Instructions PO .COMPLEX 09/24/24 03/31/25 fluoxetine 40 mg capsule 80 mg PO DAILY 09/24/24 03/31/25 metformin 500 mg tablet 500 mg PO BID 09/24/24 03/31/25 ondansetron 4 mg disintegrating 4 mg PO Q8H PRN #10 tabs 02/11/25 03/31/25 tablet Previous Rx's ?Medication ?Instructions ?Recorded albuterol sulfate 90 mcg/actuation 2 inh inhalation Q6H PRN shortness 12/15/20 breath activated powder inhaler of breath or wheezing #1 ea galcanezumab-gnlm 120 mg/mL 120 mg subcut QMONTH #1 mL 08/04/24 subcutaneous pen injector (Emgality Pen) rimegepant 75 mg disintegrating 75 mg PO ONCE PRN migraine 08/04/24 tablet (Nurtec ODT) headache #8 tabs sumatriptan succinate 100 mg tablet See Rx Instructions PO .COMPLEX #9 08/04/24 tabs ondansetron 4 mg disintegrating 4 mg PO Q8H PRN #10 tabs 02/11/25 tablet Allergies Allergy/AdvReac Type Severity Reaction Status Date / Time buspirone Allergy Other (See Verified 03/31/25 22:43 Comment) paliperidone Allergy Other (See Verified 03/31/25 22:43 Comment) paroxetine HCl (From Paxil) Allergy Other (See Verified 03/31/25 22:43 Comment) sertraline Allergy Other (See Verified 03/31/25 22:43 Comment) ziprasidone (From Geodon) Allergy Other (See Verified 03/31/25 22:43 Comment) aripiprazole (From Abilify) AdvReac Intermediate INVOLUNTARY Verified 03/31/25 22:43 MUSCLE MOVEMENTS mirtazapine AdvReac Intermediate INVOLUNTARY Verified 03/31/25 22:43 MUSCLE MOVEMENTS risperidone AdvReac Intermediate INVOLUNTARY Verified 03/31/25 22:43 MUSCLE MOVEMENTS enviornmental Allergy Mild Wheezing Uncoded 03/31/25 22:43 General CARLOS: 3 Exam Narrative Exam Narrative: Const: Obese male in NAD. VS per triage. HEENT: NC/AT. Normal facial exam. Lip smacking/mouth movement noted. Eyes: PERRL and EOMI. Lids, conjunctiva normal. VF in tact. Neck: Supple. Trachea midline. Lungs: Normal respiratory effort. Lungs are clear. Cor: RRR with murmur. Good radial pulses. Neuro: A+O x 3. Normal speech, mentation. Cranial nerves II - XII grossly intact. No gross motor or sensory deficit. Medical Decision Making Patient presenting to ED with complaint of eye/head pain that started about 8 PM. He has history of chronic headache and migraines and has been seen by neurology in the past. He has had no vision change. He does not describe foreign body sensation, it is pain behind his eyes. His eye and neurologic exam are unremarkable. Complained of some skipped heartbeats and palpitations but no chest pain or shortness of breath. He does have some lip smacking and mouth movement likely related to his psychiatric medications and chronic in nature. Patient has history of multiple ED visits both here and [place] for various complaints. Overall his exam is reassuring. This pain is not new to him. He has had no chest pain or shortness of breath. I do not see any indication for labs or imaging. I will obtain an EKG though on exam his heart is regular rate and rhythm. Will give a dose of IM Toradol and reevaluate. Patient's EKG is sinus rhythm with normal axis and interval, no acute ST changes and unchanged from previous per my read. Patient with some improvement of pain with the ketorolac. He does report that he is waiting for new glasses and currently only has reading glasses so this may potentially all be related to eyestrain. He is ambulatory through the department and nonfocal neurologically. I think he can be discharged home to follow-up with primary care as well as his medical logistics specialist to get his new glasses hopefully by next week he is stating. Return precautions provided. ECG Data Attestation: I personally reviewed and interpreted this ECG (s) as follows: Prior ECG tracings: available for review Interpretation: see MDM/EKG Quality:SDOH Health Related Social Needs: Health related social needs feeling lonely/isolated (Z60.8) PFSH All Active Problems (Updated 03/31/25 @ 23:34 by Dariel Matthews MD) Palpitations (Acute) Headache (Acute) Dental caries (Acute) Nicotine dependence (Acute) Dyspnea on exertion (Acute) Depression (Acute 10/02/14) Chronic headache (Acute) Migraine headache without aura (Acute) Migraine (Chronic) Poor dentition (Acute) Tobacco use disorder (Chronic) started 2013 1.5 ppd, pipe 1-7/week, QUIT LATE OCT 2021 Allergic rhinitis (Chronic) lortadine Hiatal hernia (Chronic) protonix not effective, nexium works better 02/12/18 Anemia (Chronic) Broken teeth (Chronic) Drug-seeking behavior (Chronic ~09/20/21) Requests Ritalin from providers Medication overuse headache (Acute) Medical History Hypercholesterolemia (09/07/14) pt insists on lipitor 80 mg due to family hx Obesity BMI 52 Hypertension pt requests brand name Tenormin vs atenolol 04/02/18 GERD (gastroesophageal reflux disease) (09/07/14) Diabetes mellitus type 2 in obese (09/09/14) Hypothyroidism (acquired) (09/07/14) Schizoaffective disorder (09/07/14) Rebekah Mariscal [facility] 09/2014- [facility] Trigeminal neuralgia Anxiety Mitral valve prolapse Peripheral neuropathy Surgical History No significant past surgical history Family History Father Heart disease [place] Social History Smoking/Tobacco Use Status: Former Tobacco Use Smoking risk assessment performed?: Yes Alcohol Intake: never Drug use: Never Substance use type: does not use Adopted: No Caregiver/Support person: No Foster care: No Household members: none Housing: apartment Number of Children: 2 number of grandchildren: 1 Communication Needs: Corrective Lenses Education Level: college Do you need help understanding health information?: Always current occupation: Unemployed/Leave of absence Sexually active: No Do you think of yourself as: Decline to provide Current gender identity: male What type of physical activity do you participate in: other Details: weight lifting Frequency: 3-4 times per week [employer] Seatbelt use: always Drive 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
--- NOTE | 2025-03-31 22:45 | RT.EKG_ITS ---
APPROVED REPORT Exam: Resting ECG Reason for Exam: palpitations Patient Location: E HR:73 bpm ECG Measurements Heart Rate 73 AXIS TX 196 P 30 QRSd 103 QRS 24 QT 414 T 81 QTc 456 Conclusion Sinus rhythm...normal P axis, V-rate 60- 99 Normal Cable Normal Interval No acute ST changes There are no significant changes compared to prior EKG performed on 01/28/2025 at 02:44.
[2025-03-31] MEDS: Ketorolac 15 MG/ML VIAL IM (23:10)
[2025-03-31 23:40] VITALS: BP 161/90
[2025-03-31 23:41] VITALS: BP 161/90; PULSE 83; RESP 16; O2SAT 99
== END 2025-03-31 23:47 | disposition home or self-care (01) ==
PROVIDERS: Emergency Provider Emergency Medicine; PCP Family Medicine
DX: R51.9 Headache, unspecified (principal); R00.2 Palpitations; I10 Essential (primary) hypertension; E78.00 Pure hypercholesterolemia, unspecified; E11.9 Type 2 diabetes mellitus without complications; E03.9 Hypothyroidism, unspecified; Z79.82 Long term (current) use of aspirin; Z79.84 Long term (current) use of oral hypoglycemic drugs; Z87.891 Personal history of nicotine dependence
CPT/HCPCS: 93005; 99283; 93010; J1885

== ENCOUNTER 2025-04-18 20:58 | Emergency (ER) | payer MEDICAID, SELFPAY ==
[2025-04-18 20:56] VITALS: BP 158/70; PULSE 73; RESP 20; TEMP 36.6; O2SAT 98
[2025-04-18 20:59] VITALS: BP 158/70; PULSE 73; RESP 20; TEMP 36.6; O2SAT 98
--- NOTE | 2025-04-18 21:00 | DI.RAD_ITS ---
Exam(s) XR CHEST 2V PA LATERAL EXAM: XR CHEST 2V PA LATERAL CLINICAL HISTORY: shortness of breath. TECHNIQUE: 2D digital imaging was performed. COMPARISON: CR XR CHEST 2V PA LATERAL from 02/11/2025 FINDINGS: 2 views: Heart size is normal. The mediastinum is not widened. Lungs are clear. No infiltrates nor pleural effusions. IMPRESSION: No acute pulmonary findings.No significant change compared to 07/30. DATA REPOSITORY: RADIATION DOSE DELIVERED:
--- NOTE | 2025-04-18 21:01 | W.ED.GENAD ---
Discharge Plan Disposition Patient Disposition: Home Condition: Stable Discharge Details Clinical Impression: Dyspnea on exertion Primary Care Provider: Brandon Foster ED Provider: Katarzyna Jennings Home Meds and New Rx's Prescriptions: No Action gabapentin 300 mg capsule 300 mg PO QID bupropion HCl 75 mg tablet 150 mg PO DAILY Rx Instructions: administer 6 hours apart sumatriptan succinate 100 mg tablet See Rx Instructions PO .COMPLEX Qty: 9 5RF Rx Instructions: take 1 tab at onset of headache; if no relief, may repeat 1 tab after at least 2 hrs; max = 2 tabs/24 hrs PO Nurtec ODT 75 mg tablet,disintegrating 75 mg PO ONCE PRN (Reason: migraine headache) Qty: 8 5RF Rx Instructions: as a single dose; no more than 1 tab per day Emgality Pen 120 mg/mL pen injector 120 mg subcut QMONTH Qty: 1 11RF Claritin Liqui-Gel 10 MG capsule 1 cap PO DAILY Qty: 90 metformin 500 mg tablet 500 mg PO BID fluoxetine 10 mg capsule See Rx Instructions PO .COMPLEX Patient Comments: Pt states he takes two tablets per day in the AM 11/15/24 - ML Rx Instructions: 5 mg orally AM; 10 mg afaternoon, 20 mg HS per PCP list 09/24/24 fluoxetine 40 mg capsule 80 mg PO DAILY multivitamin Tablet 1 tab PO DAILY clonazepam 0.5 mg tablet See Rx Instructions .ROUTE .COMPLEX Rx Instructions: 1 tab in AM, 1 tab at Noon and 2 tab QHS simvastatin 80 mg tablet 80 mg PO DAILY Patient Comments: Take 1 tablet by mouth once a day ondansetron HCl 4 mg tablet 4 mg PO Q8H PRN Patient Comments: Take 1 tablet by mouth every eight hours as needed as directed benztropine 0.5 MG tablet 0.5 mg PO BID aspirin,buffd-calcium carb-mag 325 MG tablet 325 mg PO DAILY lactulose 10 gram/15 mL solution 20 g PO DIRECTED PRN Patient Comments: TAKE ONE TO TWO TABLESPOONS BY MOUTH NEEDED WHEN 3 DAYS PASS WITHOUT BOWEL MOVEMENT albuterol sulfate 90 mcg/actuation aerosol powdr breath activated 2 inh IH Q6H PRN (Reason: shortness of breath or wheezing) Qty: 1 0RF atenolol 25 mg tablet 75 mg PO DAILY Patient Comments: Take 3 tablet by mouth once a day Invega Sustenna 117 mg/0.75 mL syringe 117 mg IM Q30D divalproex [Depakote ER] 500 mg tablet extended release 24 hr 500 mg PO ONCE omeprazole 40 mg capsule,delayed release(DR/EC) 40 mg PO DAILY Patient Comments: TAKE 1 CAPSULE BY MOUTH DAILY FOR HEARTBURN ondansetron 4 mg tablet,disintegrating 4 mg PO Q8H PRNQty: 10 0RF Discharge Instructions Instructions: Shortness of Breath, Adult ED Additional Instructions: You were seen in the emergency department today for evaluation of shortness of breath. In our department you do full physical examination performed and received a nebulizer treatment to good effect. Your laboratory studies were reassuring and you had an x-ray performed, and should continue to take all of your home medications as prescribed including your albuterol inhaler. Please follow-up with your primary care provider in the next few days to discuss this visit and any symptoms that change, worsen, or persist. Thank you for allowing us to be part of your care. HPI General Mode of arrival: EMS. Date/Time Provider Initiated Documentation: 04/18/25 21:00. Limitations to Documentation: no limitations. Information obtained by: patient, EMS and old records reviewed. HPI Narrative: This is a 60-year-old male patient with a past medical history significant for chronic bronchitis, anemia, anxiety, history of dyspnea on exertion is presenting for evaluation for shortness of breath, nausea. The patient states that he awoke from a nap with the sensation that he could not catch his breath or get enough oxygen, states that this was accompanied by a discomfort in his abdomen which has since resolved. He continues to feel some generalized bodyaches, located primarily in his shoulders, and some nausea. He denies chest pain, states that he has not taken any medications but that this type of pain typically resolves with Tylenol. No recent fevers, coughs, sputum changes, or changes to his medications. He has an inhaler that he uses on occasion, but states that he does not feel like he was tight or wheezy. Related Data Home Medications ?Medication ?Instructions ?Recorded ?Confirmed loratadine 10 mg capsule (Claritin 1 cap PO DAILY #90 tabs 12/16/14 04/18/25 Liqui-Gel) aspirin,buffered (calcium 325 mg PO DAILY 11/18/16 04/18/25 carbonate-magnesium) 325 mg tablet benztropine 0.5 mg tablet 0.5 mg PO BID 11/18/16 04/18/25 lactulose 10 gram/15 mL oral 20 g PO DIRECTED PRN 10/03/20 04/18/25 solution albuterol sulfate 90 mcg/actuation 2 inh inhalation Q6H PRN shortness 12/15/20 04/18/25 breath activated powder inhaler of breath or wheezing #1 ea multivitamin 1 tab PO DAILY 01/26/21 04/18/25 clonazepam 0.5 mg tablet See Rx Instructions .Route .COMPLEX 03/04/23 04/18/25 gabapentin 300 mg capsule 300 mg PO QID 03/27/23 04/18/25 atenolol 25 mg tablet 75 mg PO DAILY 01/31/24 04/18/25 divalproex 500 mg tablet,extended 500 mg PO ONCE 01/31/24 04/18/25 release 24 hr (Depakote ER) omeprazole 40 mg capsule,delayed 40 mg PO DAILY 01/31/24 04/18/25 release paliperidone palmitate 117 mg/0.75 117 mg IM Q30D 01/31/24 04/18/25 mL intramuscular syringe (Invega Sustenna) simvastatin 80 mg tablet 80 mg PO DAILY 03/08/24 04/18/25 ondansetron HCl 4 mg tablet 4 mg PO Q8H PRN 07/22/24 04/18/25 bupropion HCl 75 mg tablet 150 mg PO DAILY 08/04/24 04/18/25 galcanezumab-gnlm 120 mg/mL 120 mg subcut QMONTH #1 mL 08/04/24 04/18/25 subcutaneous pen injector (Emgality Pen) rimegepant 75 mg disintegrating 75 mg PO ONCE PRN migraine 08/04/24 04/18/25 tablet (Nurtec ODT) headache #8 tabs sumatriptan succinate 100 mg tablet See Rx Instructions PO .COMPLEX #9 08/04/24 04/18/25 tabs fluoxetine 10 mg capsule See Rx Instructions PO .COMPLEX 09/24/24 04/18/25 fluoxetine 40 mg capsule 80 mg PO DAILY 09/24/24 04/18/25 metformin 500 mg tablet 500 mg PO BID 09/24/24 04/18/25 ondansetron 4 mg disintegrating 4 mg PO Q8H PRN #10 tabs 02/11/25 04/18/25 tablet Previous Rx's ?Medication ?Instructions ?Recorded albuterol sulfate 90 mcg/actuation 2 inh inhalation Q6H PRN shortness 12/15/20 breath activated powder inhaler of breath or wheezing #1 ea galcanezumab-gnlm 120 mg/mL 120 mg subcut QMONTH #1 mL 08/04/24 subcutaneous pen injector (Emgality Pen) rimegepant 75 mg disintegrating 75 mg PO ONCE PRN migraine 08/04/24 tablet (Nurtec ODT) headache #8 tabs sumatriptan succinate 100 mg tablet See Rx Instructions PO .COMPLEX #9 08/04/24 tabs ondansetron 4 mg disintegrating 4 mg PO Q8H PRN #10 tabs 02/11/25 tablet Allergies Allergy/AdvReac Type Severity Reaction Status Date / Time buspirone Allergy Other (See Verified 04/18/25 21:00 Comment) paliperidone Allergy Other (See Verified 04/18/25 21:00 Comment) paroxetine HCl (From Paxil) Allergy Other (See Verified 04/18/25 21:00 Comment) sertraline Allergy Other (See Verified 04/18/25 21:00 Comment) ziprasidone (From Geodon) Allergy Other (See Verified 04/18/25 21:00 Comment) aripiprazole (From Abilify) AdvReac Intermediate INVOLUNTARY Verified 04/18/25 21:00 MUSCLE MOVEMENTS mirtazapine AdvReac Intermediate INVOLUNTARY Verified 04/18/25 21:00 MUSCLE MOVEMENTS risperidone AdvReac Intermediate INVOLUNTARY Verified 04/18/25 21:00 MUSCLE MOVEMENTS enviornmental Allergy Mild Wheezing Uncoded 04/18/25 21:00 General Stated Complaint: SOB CARLOS: 3 Exam Narrative Exam Narrative: Gen: Awake and alert, in no apparent distress HEENT: Non-icteric sclera Neck: Supple Lungs: No apparent respiratory distress, normal respiratory effort. Lung sounds clear and equal bilaterally without wheezes, rhonchi, rales CV: Appears well perfused, heart with regular rate and rhythm, strong distal pulses Abdomen: Non-distended MSK: Moves 4 extremities without apparent limitation in ROM. No peripheral edema Skin: Visualized skin without rashes, cyanosis. Neuro: Normal Gait, no obvious focal deficits or facial asymmetry. Speaks in full, clear sentences. Psych: Appropriate for situation. Course Vital Signs Vital signs: Vital Signs Temperature 36.6 C 04/18/25 20:56 Pulse 73 04/18/25 20:56 Respiratory Rate 20 04/18/25 20:56 Blood Pressure 158/70 H 04/18/25 20:56 Pulse Oximetry 98 04/18/25 20:56 Temperature 36.6 C 04/18/25 20:59 Temperature Source Oral 04/18/25 20:59 Pulse 73 04/18/25 20:59 Respiratory Rate 20 04/18/25 20:59 Blood Pressure 158/70 H 04/18/25 20:59 Blood Pressure Position Sitting 04/18/25 20:59 Pulse Oximetry 98 04/18/25 20:59 Oxygen Delivery Method Room Air 04/18/25 20: Oxygen Flow Rate 0 04/18/25 20:59 Medical Decision Making This is a 60-year-old male patient presenting for evaluation of shortness of breath and nausea. Differential includes but is not limited to reactive airway disease exacerbation, though I am reassured against this based on the lack of wheezing, considered pneumonia, bronchitis given his history. No cardiac abnormalities to suggest pulmonary edema or pleural effusion. Exam less consistent with thorax. The patient has a history of anxiety and shortness of breath associated with the symptoms, that this would be a diagnosis of exclusion. He has no abdominal tenderness, and I have a lower concern for severe intra-abdominal pathology such as pancreatitis, gastroenteritis, hepatitis, diverticulitis. No chest pain to suggest ACS. I will provide the patient with a dose of Tylenol as well as Zofran for symptomatic management. Will obtain an x-ray and labs to include CBC, CMP, magnesium, troponin. - I independently interpreted the laboratory studies, which show no significant leukocytosis, new or worsening anemia, or thrombocytopenia. The chemistry panel is without evidence of electrolyte abnormality, kidney dysfunction, or liver injury. Troponin negative. The patient was provided with a duo nebulizer treatment and reports significant improvement in his work of breathing. I reviewed the patient's x-ray, which shows no significant lobar consolidation or other glaring abnormality to explain his symptoms. Formal read pending. The patient was signed out to the oncoming provider prior to final x-ray reads, anticipate discharge to home without change in medications. The patient remained hemodynamically appropriate, without oxygen requirement, nor clinical deterioration while under my care. Katarzyna Jennings MD Quality:SDOH Health Related Social Needs: Health related social needs lonely/isolated PFSH All Active Problems (Updated 04/18/25 @ 23:00 by Katarzyna Jennings MD) Palpitations (Acute) Headache (Acute) Dental caries (Acute) Nicotine dependence (Acute) Dyspnea on exertion (Acute) Depression (Acute 10/02/14) Chronic headache (Acute) Migraine headache without aura (Acute) Migraine (Chronic) Poor dentition (Acute) Tobacco use disorder (Chronic) started 2013 1.5 ppd, pipe 1-7/week, QUIT LATE OCT 2021 Allergic rhinitis (Chronic) lortadine Hiatal hernia (Chronic) protonix not effective, nexium works better 02/12/18 Anemia (Chronic) Broken teeth (Chronic) Drug-seeking behavior (Chronic ~09/20/21) Requests Ritalin from providers Medication overuse headache (Acute) Medical History Hypercholesterolemia (09/07/14) pt insists on lipitor 80 mg due to family hx Obesity BMI 52 Hypertension pt requests brand name Tenormin vs atenolol 04/02/18 GERD (gastroesophageal reflux disease) (09/07/14) Diabetes mellitus type 2 in obese (09/09/14) Hypothyroidism (acquired) (09/07/14) Schizoaffective disorder (09/07/14) Rebekah Mariscal [facility] 09/2014- [facility], [facility] inpatient Trigeminal neuralgia Anxiety Mitral valve prolapse Peripheral neuropathy Surgical History No significant past surgical history Family History Father Heart disease DC Social History Smoking/Tobacco Use Status: Former Tobacco Use Smoking risk assessment performed?: Yes Alcohol Intake: never Drug use: Never Substance use type: does not use Adopted: No Caregiver/Support person: No Foster care: No Household members: none Housing: apartment Number of Children: 2 number of grandchildren: 1 Communication Needs: Corrective Lenses Education Level: college Do you need help understanding health information?: Always current occupation: Unemployed/Leave of absence Sexually active: No Do you think of yourself as: Decline to provide Current gender identity: male What type of physical activity do you participate in: other Details: weight lifting Frequency: 3-4 times per week Magalie/Bahai: Sabianist Seatbelt use: always Drive intox or ride w/intox city route 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
[2025-04-18] MEDS: Ondansetron 4 MG/2 ML VIAL IVP (21:24)
[2025-04-18] MEDS: Acetaminophen 500 MG TAB 1000 MG PO (21:24)
[2025-04-18 21:57] LABS: Abs Immature Grans 0.02 10^3/uL (0.0-0.06); Absolute Basophil Count 0.02 10^3/uL (0.0-0.2); Absolute Eosinophil Count 0.12 10^3/uL (0.0-0.7); Absolute Lymphocyte Count 1.35 10^3/uL (1.2-3.4); Absolute Monocyte Count 0.37 10^3/uL (0.1-0.8); Absolute Neutrophil Count 2.77 10^3/uL (1.2-6.7); Basophils % 0.4 %; Eosinophils % 2.6 %; HCT 34.2 % (40.0-50.0); HGB 11.4 g/dL (13.5-17.5); Immature Grans % 0.4 %; MCH 30.2 pg (27.0-33.0); MCHC 33.3 % (32.0-36.0); MCV 91 fL (80-95); MPV 9.1 fL (8.0-11.0); Neutrophils % 59.6 %; Platelet Count 155 10^3/uL (130-400); RBC 3.77 10^6/uL (4.36-5.78); RDW 12.9 % (11.8-14.1); RDW-SD 42.1 fL; WBC 4.65 10^3/uL (4.4-10.8)
[2025-04-18 22:10] LABS: ALT 28 U/L (16-63); AST 17 U/L (15-37); Albumin 3.6 g/dL (3.4-5.0); Alkaline Phosphatase 61 U/L (46-116); BUN 17 mg/dL (7-18); Bilirubin, Total 0.3 mg/dL (0.2-1.0); CREATININE 0.9 mg/dL (0.70-1.30); Chloride 98 mmol/L (98-107); Estimated GFR 97.78 (mL/min/1.73m2); Glucose 119 mg/dL (74-106); Magnesium 1.7 mg/dL (1.8-2.4); Potassium 4.6 mmol/L (3.5-5.1); Sodium 134 mmol/L (136-145); Total Protein 7.8 g/dL (6.4-8.2); Troponin I 6 ng/L (<or=76)
[2025-04-18] MEDS: Albuterol/Ipratropium 3 ML UPD VIAL UPD (22:18)
--- NOTE | 2025-04-18 23:03 | W.EDPROG ---
Date of service: 04/18/25 Time of Service: 23:03 Medical Decision Making This patient was signed out to me. Please see previous notes for H&P and initial eval. In brief, 60yo M presenting with shortness of breath. Laboratory workup and CXR reassuring, symptoms improved after albuterol (had not been using his home albuterol). Discharge instructions written and plan for discharge however no transportation overnight. Signed out with plan to allow to to remain in the ED awaiting RCT in the morning. RCT called and able to take patient now. Vital signs remains reassuring and pt denies complaints. Discharged home; discharge instructions and return precautions were reviewed with patient who verbalized understanding. All questions were answered and he is in full agreement with the plan. Quality:SDOH Health Related Social Needs: Health related social needs lonely/isolated Discharge Plan Disposition Patient Disposition: Home Condition: Stable Discharge Details Clinical Impression: Dyspnea on exertion Primary Care Provider: Brandon Foster ED Provider: Sparkle Slater Home Meds and New Rx's Prescriptions: No Action gabapentin 300 mg capsule 300 mg PO QID bupropion HCl 75 mg tablet 150 mg PO DAILY Rx Instructions: administer 6 hours apart sumatriptan succinate 100 mg tablet See Rx Instructions PO .COMPLEX Qty: 9 5RF Rx Instructions: take 1 tab at onset of headache; if no relief, may repeat 1 tab after at least 2 hrs; max = 2 tabs/24 hrs PO Nurtec ODT 75 mg tablet,disintegrating 75 mg PO ONCE PRN (Reason: migraine headache) Qty: 8 5RF Rx Instructions: as a single dose; no more than 1 tab per day Emgality Pen 120 mg/mL pen injector 120 mg subcut QMONTH Qty: 1 11RF Claritin Liqui-Gel 10 MG capsule 1 cap PO DAILY Qty: 90 metformin 500 mg tablet 500 mg PO BID fluoxetine 10 mg capsule See Rx Instructions PO .COMPLEX Patient Comments: Pt states he takes two tablets per day in the AM 11/15/24 - ML Rx Instructions: 5 mg orally AM; 10 mg afaternoon, 20 mg HS per PCP list 09/24/24 fluoxetine 40 mg capsule 80 mg PO DAILY multivitamin Tablet 1 tab PO DAILY clonazepam 0.5 mg tablet See Rx Instructions .ROUTE .COMPLEX Rx Instructions: 1 tab in AM, 1 tab at Noon and 2 tab QHS simvastatin 80 mg tablet 80 mg PO DAILY Patient Comments: Take 1 tablet by mouth once a day ondansetron HCl 4 mg tablet 4 mg PO Q8H PRN Patient Comments: Take 1 tablet by mouth every eight hours as needed as directed benztropine 0.5 MG tablet 0.5 mg PO BID aspirin,buffd-calcium carb-mag 325 MG tablet 325 mg PO DAILY lactulose 10 gram/15 mL solution 20 g PO DIRECTED PRN Patient Comments: TAKE ONE TO TWO TABLESPOONS BY MOUTH NEEDED WHEN 3 DAYS PASS WITHOUT BOWEL MOVEMENT albuterol sulfate 90 mcg/actuation aerosol powdr breath activated 2 inh IH Q6H PRN (Reason: shortness of breath or wheezing) Qty: 1 0RF atenolol 25 mg tablet 75 mg PO DAILY Patient Comments: Take 3 tablet by mouth once a day Invega Sustenna 117 mg/0.75 mL syringe 117 mg IM Q30D divalproex [Depakote ER] 500 mg tablet extended release 24 hr 500 mg PO ONCE omeprazole 40 mg capsule,delayed release(DR/EC) 40 mg PO DAILY Patient Comments: TAKE 1 CAPSULE BY MOUTH DAILY FOR HEARTBURN ondansetron 4 mg tablet,disintegrating 4 mg PO Q8H PRNQty: 10 0RF Discharge Instructions Instructions: Shortness of Breath, Adult ED Additional Instructions: You were seen in the emergency department today for evaluation of shortness of breath. In our department you do full physical examination performed and received a nebulizer treatment to good effect. Your laboratory studies were reassuring and you had an x-ray performed, and should continue to take all of your home medications as prescribed including your albuterol inhaler. Please follow-up with your primary care provider in the next few days to discuss this visit and any symptoms that change, worsen, or persist. Thank you for allowing us to be part of your care.
--- NOTE | 2025-04-18 23:14 | DI.VRAD_ITS ---
PROCEDURE INFORMATION: Exam: XR Chest Exam date and time: 04/18/2025 9:48 PM Age: 60 years old Clinical indication: Shortness of breath; SOB TECHNIQUE: Imaging protocol: Radiologic exam of the chest. Views: 2 views. COMPARISON: CR XR CHEST 2V PA LATERAL 02/11/2025 12:40 PM FINDINGS: Lungs: No acute airspace consolidation. No pulmonary edema. Pleural spaces: No pleural effusion. No pneumothorax. Heart/Mediastinum: Normal heart size. No mediastinal widening. Bones/joints: No acute skeletal change. IMPRESSION: 1. No acute findings. 2. No acute infiltrates or edema. 3. Stable exam since 02/11/2025. Dictated and Authenticated by: Gustavo Cintron MD. Orderin [facility] Colón MD
[2025-04-19 00:22] VITALS: BP 158/70; PULSE 73; RESP 20; TEMP 36.6; O2SAT 98
== END 2025-04-19 00:31 | disposition home or self-care (01) ==
PROVIDERS: Emergency Medicine; Emergency Provider Student in an Organized Health Care Education/Training Program; PCP Family Medicine
DX: R06.09 Other forms of dyspnea (principal); R11.0 Nausea
CPT/HCPCS: 99284 ×2; 96374; 94640; 36415; 00123; 80053; 71046; 83735; 84484; 85025; J2405; J7620

== ENCOUNTER 2025-04-30 12:45 | Emergency (ER) | payer MEDICAID, SELFPAY ==
[2025-04-30] VITALS (9 sets, daily range): BP systolic 133–147; BP diastolic 60–83; PULSE 61–82; RESP 12–18; TEMP 36.6; O2SAT 97–98
--- NOTE | 2025-04-30 12:30 | RT.EKG_ITS ---
APPROVED REPORT Exam: Resting ECG Reason for Exam: chest pain Patient Location: E HR:63 bpm ECG Measurements Heart Rate 63 AXIS PA 197 P 44 QRSd 99 QRS 28 QT 414 T 114 QTc 426 Conclusion Sinus rhythm...normal P axis, V-rate 60- 99 Nonspecific T abnormalities, lateral leads...T <-0.10mV, I aVL V5 V6 I have reviewed and interpreted ECG and agree with software generated interpretation.
[2025-04-30] MEDS: MYLANTA 30 ML, LIDOCAINE 2% VISCOUS UD 15 ML PO (13:23)
[2025-04-30] MEDS: Lidocaine 5% Patch 1 PATCH TP (13:24)
--- NOTE | 2025-04-30 13:26 | NUR.NOTE ---
Nursing Note: Pt decline toradol at this time
--- NOTE | 2025-04-30 15:03 | W.ED.GENAD ---
Discharge Plan Disposition Patient Disposition: Home Condition: Good Discharge Details Clinical Impression: Chest wall discomfort Primary Care Provider: Brandon Foster ED Provider: Froilan Iraheta Home Meds and New Rx's Prescriptions: No Action gabapentin 300 mg capsule 300 mg PO QID bupropion HCl 75 mg tablet 150 mg PO DAILY Rx Instructions: administer 6 hours apart sumatriptan succinate 100 mg tablet See Rx Instructions PO .COMPLEX Qty: 9 5RF Rx Instructions: take 1 tab at onset of headache; if no relief, may repeat 1 tab after at least 2 hrs; max = 2 tabs/24 hrs PO Nurtec ODT 75 mg tablet,disintegrating 75 mg PO ONCE PRN (Reason: migraine headache) Qty: 8 5RF Rx Instructions: as a single dose; no more than 1 tab per day Emgality Pen 120 mg/mL pen injector 120 mg subcut QMONTH Qty: 1 11RF Claritin Liqui-Gel 10 MG capsule 1 cap PO DAILY Qty: 90 metformin 500 mg tablet 500 mg PO BID fluoxetine 10 mg capsule See Rx Instructions PO .COMPLEX Patient Comments: Pt states he takes two tablets per day in the AM 11/15/24 - ML Rx Instructions: 5 mg orally AM; 10 mg afaternoon, 20 mg HS per PCP list 09/24/24 fluoxetine 40 mg capsule 80 mg PO DAILY multivitamin Tablet 1 tab PO DAILY clonazepam 0.5 mg tablet See Rx Instructions .ROUTE .COMPLEX Rx Instructions: 1 tab in AM, 1 tab at Noon and 2 tab QHS simvastatin 80 mg tablet 80 mg PO DAILY Patient Comments: Take 1 tablet by mouth once a day ondansetron HCl 4 mg tablet 4 mg PO Q8H PRN Patient Comments: Take 1 tablet by mouth every eight hours as needed as directed benztropine 0.5 MG tablet 0.5 mg PO BID aspirin,buffd-calcium carb-mag 325 MG tablet 325 mg PO DAILY lactulose 10 gram/15 mL solution 20 g PO DIRECTED PRN Patient Comments: TAKE ONE TO TWO TABLESPOONS BY MOUTH NEEDED WHEN 3 DAYS PASS WITHOUT BOWEL MOVEMENT albuterol sulfate 90 mcg/actuation aerosol powdr breath activated 2 inh IH Q6H PRN (Reason: shortness of breath or wheezing) Qty: 1 0RF atenolol 25 mg tablet 75 mg PO DAILY Patient Comments: Take 3 tablet by mouth once a day Invega Sustenna 117 mg/0.75 mL syringe 117 mg IM Q30D divalproex [Depakote ER] 500 mg tablet extended release 24 hr 500 mg PO ONCE omeprazole 40 mg capsule,delayed release(DR/EC) 40 mg PO DAILY Patient Comments: TAKE 1 CAPSULE BY MOUTH DAILY FOR HEARTBURN ondansetron 4 mg tablet,disintegrating 4 mg PO Q8H PRNQty: 10 0RF Discharge Instructions Instructions: Chest Pain, Adult ED Additional Instructions: At this time your chest pain appears consistent with musculoskeletal irritation, and no evidence of a heart attack. Please use Lidoderm patches, Tylenol and Motrin to help with the pain. If you notice any worsening of your symptoms, or any new symptoms such as vomiting, diarrhea, fever, chills, shortness of breath, chest pain, numbness, weakness, or fainting , please return immediately to the emergency department for reevaluation. Please follow up with your primary care provider as soon as possible for reassessment and reevaluation. As always, it was a pleasure participating in your medical care today. Referrals: Brandon Foster [Primary Care Provider, Medicine] [facility] General Date/Time Provider Initiated Documentation: 04/30/25 13:00. HPI Narrative: This is a 60-year-old male with a past medical history of anxiety, depression, type 2 diabetes, high cholesterol, obesity, schizoaffective disorder, hypothyroidism, chronic headaches, chronic recurrent visits to the emergency department for evaluation of chest pain which is often associated with anxiety or reflux, who presents today via EMS for evaluation of chest pain. Patient states that the pain began about an hour and a half ago, it is achy in nature and in his left chest wall. Worse when he pushes on it. Improved by nothing. No other complaints at this time Related Data Home Medications ?Medication ?Instructions ?Recorded ?Confirmed loratadine 10 mg capsule (Claritin 1 cap PO DAILY #90 tabs 12/16/14 04/18/25 Liqui-Gel) aspirin,buffered (calcium 325 mg PO DAILY 11/18/16 04/18/25 carbonate-magnesium) 325 mg tablet benztropine 0.5 mg tablet 0.5 mg PO BID 11/18/16 04/18/25 lactulose 10 gram/15 mL oral 20 g PO DIRECTED PRN 10/03/20 04/18/25 solution albuterol sulfate 90 mcg/actuation 2 inh inhalation Q6H PRN shortness 12/15/20 04/18/25 breath activated powder inhaler of breath or wheezing #1 ea multivitamin 1 tab PO DAILY 01/26/21 04/18/25 clonazepam 0.5 mg tablet See Rx Instructions .Route .COMPLEX 03/04/23 04/18/25 gabapentin 300 mg capsule 300 mg PO QID 03/27/23 04/18/25 atenolol 25 mg tablet 75 mg PO DAILY 01/31/24 04/18/25 divalproex 500 mg tablet,extended 500 mg PO ONCE 01/31/24 04/18/25 release 24 hr (Depakote ER) omeprazole 40 mg capsule,delayed 40 mg PO DAILY 01/31/24 04/18/25 release paliperidone palmitate 117 mg/0.75 117 mg IM Q30D 01/31/24 04/18/25 mL intramuscular syringe (Invega Sustenna) simvastatin 80 mg tablet 80 mg PO DAILY 03/08/24 04/18/25 ondansetron HCl 4 mg tablet 4 mg PO Q8H PRN 07/22/24 04/18/25 bupropion HCl 75 mg tablet 150 mg PO DAILY 08/04/24 04/18/25 galcanezumab-gnlm 120 mg/mL 120 mg subcut QMONTH #1 mL 08/04/24 04/18/25 subcutaneous pen injector (Emgality Pen) rimegepant 75 mg disintegrating 75 mg PO ONCE PRN migraine 08/04/24 04/18/25 tablet (Nurtec ODT) headache #8 tabs sumatriptan succinate 100 mg tablet See Rx Instructions PO .COMPLEX #9 08/04/24 04/18/25 tabs fluoxetine 10 mg capsule See Rx Instructions PO .COMPLEX 09/24/24 04/18/25 fluoxetine 40 mg capsule 80 mg PO DAILY 09/24/24 04/18/25 metformin 500 mg tablet 500 mg PO BID 09/24/24 04/18/25 ondansetron 4 mg disintegrating 4 mg PO Q8H PRN #10 tabs 02/11/25 04/18/25 tablet Previous Rx's ?Medication ?Instructions ?Recorded albuterol sulfate 90 mcg/actuation 2 inh inhalation Q6H PRN shortness 12/15/20 breath activated powder inhaler of breath or wheezing #1 ea galcanezumab-gnlm 120 mg/mL 120 mg subcut QMONTH #1 mL 08/04/24 subcutaneous pen injector (Emgality Pen) rimegepant 75 mg disintegrating 75 mg PO ONCE PRN migraine 08/04/24 tablet (Nurtec ODT) headache #8 tabs sumatriptan succinate 100 mg tablet See Rx Instructions PO .COMPLEX #9 08/04/24 tabs ondansetron 4 mg disintegrating 4 mg PO Q8H PRN #10 tabs 02/11/25 tablet Allergies Allergy/AdvReac Type Severity Reaction Status Date / Time buspirone Allergy Other (See Verified 04/30/25 12:52 Comment) paliperidone Allergy Other (See Verified 04/30/25 12:52 Comment) paroxetine HCl (From Paxil) Allergy Other (See Verified 04/30/25 12:52 Comment) sertraline Allergy Other (See Verified 04/30/25 12:52 Comment) ziprasidone (From Geodon) Allergy Other (See Verified 04/30/25 12:52 Comment) aripiprazole (From Abilify) AdvReac Intermediate INVOLUNTARY Verified 04/30/25 12:52 MUSCLE MOVEMENTS mirtazapine AdvReac Intermediate INVOLUNTARY Verified 04/30/25 12:52 MUSCLE MOVEMENTS risperidone AdvReac Intermediate INVOLUNTARY Verified 04/30/25 12:52 MUSCLE MOVEMENTS enviornmental Allergy Mild Wheezing Uncoded 04/30/25 12:52 General Stated Complaint: Chest Pain CARLOS: 2 Exam Narrative Exam Narrative: 1.Const: Well-nourished, Well-developed, appearing stated age 2.Eyes: PERRL, no conjunctival injection, and symmetrical lids. 3.ENT: Atraumatic external nose and ears. Moist MM. Neck: Symmetric, trachea midline, No thyromegaly. 4.CVS: +S1/S2, Peripheral pulses 2+ and equal in all extremities. Brisk capillary refill in all extremities. 5.RESP: Unlabored respiratory effort. Clear to auscultation bilaterally. No wheezes rales or rhonchi 6.GI: Soft, Nontender/Nondistended, No hepatosplenomegaly. No guarding or rebound. 7.MSK: Normocephalic/Atraumatic, Extremities w/o deformity or ttp No cyanosis or clubbing, Normal movement of all extremities. Notable reproducible chest wall tenderness, particularly over the left anterior chest wall at the sternal costal border. 8.Skin: Warm, Dry. No rashes or lesions. 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 Sensation grossly intact, no focal neurologic deficits. 10.Psych: (AAO) x3. Appropriate mood and affect Course Vital Signs Vital signs: Vital Signs Temperature 36.6 C 04/30/25 12:48 Pulse 82 04/30/25 12:48 Respiratory Rate 18 04/30/25 12:48 Blood Pressure 147/60 H 04/30/25 12:48 Pulse Oximetry 98 04/30/25 12:48 Temperature 36.6 C 04/30/25 12:48 Temperature Source Oral 04/30/25 12:48 Pulse 61 04/30/25 13:30 Pulse 61 04/30/25 13:30 Respiratory Rate 12 04/30/25 13:30 Blood Pressure 147/60 H 04/30/25 12:55 Blood Pressure Mean 84 04/30/25 12:55 Pulse Oximetry 98 04/30/25 13:30 Oxygen Delivery Method Room Air 04/30/25 12:48 Oxygen Flow Rate 0 04/30/25 12:48 Pain Level 8 04/30/25 13:23 Medical Decision Making This is a 60-year-old male with a past medical history of anxiety, depression, type 2 diabetes, high cholesterol, obesity, schizoaffective disorder, hypothyroidism, chronic headaches, chronic recurrent visits to the emergency department for evaluation of chest pain which is often associated with anxiety or reflux, who presents today via EMS for evaluation of chest pain. Patient states that the pain began about an hour and a half ago, it is achy in nature and in his left chest wall. Worse when he pushes on it. Improved by nothing. No other complaints at this time Exam demonstrates a well-appearing male, no acute distress, notable reproducible chest wall achiness over the muscles of the sternocostal border left chest. Symptoms appear consistent with muscle spasm/intercostal spasm. Will recommend Lidoderm patch and NSAID therapy. This was administered here. After about 2 hours of observation and treatment patient's pain resolved. He feels much better. EKG shows no evidence of STEMI or other abnormality. Patient stable for discharge. Discussed red flags for which to return. I have extensively reviewed the treatment plan and discharge instructions with the patient. I have addressed all patient concerns at this time. The patient was made aware of what symptoms to monitor for that would warrant a return to the emergency department. Discussed the plan with the patient, they demonstrate verbal understanding and agreement with our assessment and plan at this time. The documentation in this chart was dictated using RealPage dictation software. Please excuse any dictation errors. Quality:SDOH Health Related Social Needs: Health related social needs lonely/isolated PFSH All Active Problems (Updated 04/30/25 @ 15:04 by Froilan Iraheta DO) Chest wall discomfort (Acute) Palpitations (Acute) Headache (Acute) Dental caries (Acute) Nicotine dependence (Acute) Dyspnea on exertion (Acute) Depression (Acute 10/02/14) Chronic headache (Acute) Migraine headache without aura (Acute) Migraine (Chronic) Poor dentition (Acute) Tobacco use disorder (Chronic) started 2013 1.5 ppd, pipe 1-7/week, QUIT LATE OCT 2021 Allergic rhinitis (Chronic) lortadine Hiatal hernia (Chronic) protonix not effective, nexium works better 02/12/18 Anemia (Chronic) Broken teeth (Chronic) Drug-seeking behavior (Chronic ~09/20/21) Requests Ritalin from providers Medication overuse headache (Acute) Medical History Hypercholesterolemia (09/07/14) pt insists on lipitor 80 mg due to family hx Obesity BMI 52 Hypertension pt requests brand name Tenormin vs atenolol 04/02/18 GERD (gastroesophageal reflux disease) (09/07/14) Diabetes mellitus type 2 in obese (09/09/14) Hypothyroidism (acquired) (09/07/14) Schizoaffective disorder (09/07/14) Rebekah Mariscal [facility] 09/2014- [facility] inpatient Trigeminal neuralgia Anxiety Mitral valve prolapse Peripheral neuropathy Surgical History No significant past surgical history Family History Father Heart disease [place] Social History Smoking/Tobacco Use Status: Former Tobacco Use Smoking risk assessment performed?: Yes Alcohol Intake: never Drug use: Never Substance use type: does not use Adopted: No Caregiver/Support person: No Foster care: No Household members: none Housing: apartment Number of Children: 2 number of grandchildren: 1 Communication Needs: Corrective Lenses Education Level: college Do you need help understanding health information?: Always current occupation: Unemployed/Leave of absence Sexually active: No Do you think of yourself as: Decline to provide Current gender identity: male What type of physical activity do you participate in: other Details: weight lifting Frequency: 3-4 times per week Magalie/Amish: Bahai Seatbelt use: always Drive intox or ride w/intox 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
[2025-04-30] MEDS: Ondansetron O.D.T. 4 MG TABEF (15:27)
== END 2025-04-30 15:32 | disposition home or self-care (01) ==
PROVIDERS: Emergency Provider Student in an Organized Health Care Education/Training Program; PCP Family Medicine
DX: R07.89 Other chest pain (principal)
CPT/HCPCS: 99283 ×2; 93005; 93010

== ENCOUNTER 2025-06-01 07:46 | Emergency (ER) | payer MEDICAID, SELFPAY ==
[2025-06-01] VITALS (16 sets, daily range): BP systolic 107–135; BP diastolic 45–68; PULSE 60–77; RESP 10–20; TEMP 36.8; O2SAT 93–97
--- NOTE | 2025-06-01 07:30 | RT.EKG_ITS ---
APPROVED REPORT Exam: Resting ECG Reason for Exam: Difficulty breathing w/movement Patient Location: E HR:70 bpm ECG Measurements Heart Rate 70 AXIS PA 194 P 48 QRSd 109 QRS 25 QT 419 T 66 QTc 454 Conclusion Sinus rhythm...normal P axis, V-rate 60- 99
--- NOTE | 2025-06-01 08:11 | W.ED.GENAD ---
Discharge Plan Disposition Patient Disposition: Home Condition: Stable Discharge Details Clinical Impression: Chest pain Primary Care Provider: Brandon Foster ED Provider: Doc Ramos [place] Meds and New Rx's Prescriptions: Continued gabapentin 300 mg capsule 300 mg PO QID bupropion HCl 75 mg tablet 150 mg PO DAILY Rx Instructions: administer 6 hours apart sumatriptan succinate 100 mg tablet See Rx Instructions PO .COMPLEX Qty: 9 5RF Rx Instructions: take 1 tab at onset of headache; if no relief, may repeat 1 tab after at least 2 hrs; max = 2 tabs/24 hrs PO Nurtec ODT 75 mg tablet,disintegrating 75 mg PO ONCE PRN (Reason: migraine headache) Qty: 8 5RF Rx Instructions: as a single dose; no more than 1 tab per day Emgality Pen 120 mg/mL pen injector 120 mg subcut QMONTH Qty: 1 11RF Claritin Liqui-Gel 10 MG capsule 1 cap PO DAILY Qty: 90 metformin 500 mg tablet 500 mg PO BID fluoxetine 40 mg capsule 80 mg PO DAILY multivitamin Tablet 1 tab PO DAILY clonazepam 0.5 mg tablet See Rx Instructions .ROUTE .COMPLEX Rx Instructions: 1 tab in AM, 1 tab at Noon and 2 tab QHS simvastatin 80 mg tablet 80 mg PO DAILY Patient Comments: Take 1 tablet by mouth once a day benztropine 0.5 MG tablet 0.5 mg PO BID aspirin,buffd-calcium carb-mag 325 MG tablet 325 mg PO DAILY lactulose 10 gram/15 mL solution 20 g PO DIRECTED PRN Patient Comments: TAKE ONE TO TWO TABLESPOONS BY MOUTH NEEDED WHEN 3 DAYS PASS WITHOUT BOWEL MOVEMENT albuterol sulfate 90 mcg/actuation aerosol powdr breath activated 2 inh IH Q6H PRN (Reason: shortness of breath or wheezing) Qty: 1 0RF atenolol 25 mg tablet 75 mg PO DAILY Patient Comments: Take 3 tablet by mouth once a day Invega Sustenna 117 mg/0.75 mL syringe 117 mg IM Q30D divalproex [Depakote ER] 500 mg tablet extended release 24 hr 500 mg PO ONCE omeprazole 40 mg capsule,delayed release(DR/EC) 40 mg PO DAILY Patient Comments: TAKE 1 CAPSULE BY MOUTH DAILY FOR HEARTBURN Discontinued fluoxetine 10 mg capsule See Rx Instructions PO .COMPLEX Patient Comments: Pt states he takes two tablets per day in the AM 1/11/25 - ML Rx Instructions: 5 mg orally AM; 10 mg afaternoon, 20 mg HS per PCP list RH 09/24/24 ondansetron HCl 4 mg tablet 4 mg PO Q8H PRN Patient Comments: Take 1 tablet by mouth every eight hours as needed as directed ondansetron 4 mg tablet,disintegrating 4 mg PO Q8H PRNQty: 10 0RF Discharge Instructions Additional Instructions: Your blood work and exam did not show any concerning findings at this time. Follow-up your primary care provider within 1 week especially if your symptoms are continuing. If you feel more ill or have new symptoms such as persistent vomiting return to the emergency department for reevaluation HPI General Mode of arrival: EMS. Date/Time Provider Initiated Documentation: 06/01/25 08:00. Limitations to Documentation: no limitations. Information obtained by: patient. History of Present Illness 60 year old M presents to the emergency department with the chief complaint of chest pain, described as mild, Quality is described as aching, and is localized to the chest. Patient reports no radiation. Patient started experiencing this hour(s) (1) and it has been constant. No relieving factors improve symptom(s), No exacerbating factors reported . Patient notes no other symptoms.. Patient did receive the following treatments prior to arrival, none Related Data Home Medications ?Medication ?Instructions ?Recorded ?Confirmed loratadine 10 mg capsule (Claritin 1 cap PO DAILY #90 tabs 12/16/14 06/01/25 Liqui-Gel) aspirin,buffered (calcium 325 mg PO DAILY 11/18/16 06/01/25 carbonate-magnesium) 325 mg tablet benztropine 0.5 mg tablet 0.5 mg PO BID 11/18/16 06/01/25 lactulose 10 gram/15 mL oral 20 g PO DIRECTED PRN 10/03/20 06/01/25 solution albuterol sulfate 90 mcg/actuation 2 inh inhalation Q6H PRN shortness 12/15/20 06/01/25 breath activated powder inhaler of breath or wheezing #1 ea multivitamin 1 tab PO DAILY 01/26/21 06/01/25 clonazepam 0.5 mg tablet See Rx Instructions .Route .COMPLEX 03/04/23 06/01/25 gabapentin 300 mg capsule 300 mg PO QID 03/27/23 06/01/25 atenolol 25 mg tablet 75 mg PO DAILY 01/31/24 06/01/25 divalproex 500 mg tablet,extended 500 mg PO ONCE 01/31/24 06/01/25 release 24 hr (Depakote ER) omeprazole 40 mg capsule,delayed 40 mg PO DAILY 01/31/24 06/01/25 release paliperidone palmitate 117 mg/0.75 117 mg IM Q30D 01/31/24 06/01/25 mL intramuscular syringe (Invega Sustenna) simvastatin 80 mg tablet 80 mg PO DAILY 03/08/24 06/01/25 bupropion HCl 75 mg tablet 150 mg PO DAILY 08/04/24 06/01/25 galcanezumab-gnlm 120 mg/mL 120 mg subcut QMONTH #1 mL 08/04/24 06/01/25 subcutaneous pen injector (Emgality Pen) rimegepant 75 mg disintegrating 75 mg PO ONCE PRN migraine 08/04/24 06/01/25 tablet (Nurtec ODT) headache #8 tabs sumatriptan succinate 100 mg tablet See Rx Instructions PO .COMPLEX #9 08/04/24 06/01/25 tabs fluoxetine 40 mg capsule 80 mg PO DAILY 09/24/24 06/01/25 metformin 500 mg tablet 500 mg PO BID 09/24/24 06/01/25 Previous Rx's ?Medication ?Instructions ?Recorded albuterol sulfate 90 mcg/actuation 2 inh inhalation Q6H PRN shortness 12/15/20 breath activated powder inhaler of breath or wheezing #1 ea galcanezumab-gnlm 120 mg/mL 120 mg subcut QMONTH #1 mL 08/04/24 subcutaneous pen injector (Emgality Pen) rimegepant 75 mg disintegrating 75 mg PO ONCE PRN migraine 08/04/24 tablet (Nurtec ODT) headache #8 tabs sumatriptan succinate 100 mg tablet See Rx Instructions PO .COMPLEX #9 08/04/24 tabs Allergies Allergy/AdvReac Type Severity Reaction Status Date / Time buspirone Allergy Other (See Verified 06/01/25 07:52 Comment) paliperidone Allergy Other (See Verified 06/01/25 07:52 Comment) paroxetine HCl (From Paxil) Allergy Other (See Verified 06/01/25 07:52 Comment) sertraline Allergy Other (See Verified 06/01/25 07:52 Comment) ziprasidone (From Geodon) Allergy Other (See Verified 06/01/25 07:52 Comment) aripiprazole (From Abilify) AdvReac Intermediate INVOLUNTARY Verified 06/01/25 07:52 MUSCLE MOVEMENTS mirtazapine AdvReac Intermediate INVOLUNTARY Verified 06/01/25 07:52 MUSCLE MOVEMENTS risperidone AdvReac Intermediate INVOLUNTARY Verified 06/01/25 07:52 MUSCLE MOVEMENTS enviornmental Allergy Mild Wheezing Uncoded 06/01/25 07:52 General Stated Complaint: Chest Pain CARLOS: 3 Review of Systems All systems reviewed & are unremarkable except as noted in HPI and below Constitutional Constitutional: Denies chills, Denies fever(s) and Denies weakness Cardiovascular Cardiovascular: Reports chest pain and Reports dyspnea Respiratory Respiratory: Denies cough and Reports dyspnea Gastrointestinal Gastrointestinal: Denies abdominal pain, Denies nausea and Denies vomiting Neurologic Neurologic: Denies weakness Exam Const General: no acute distress Orientation: alert HENMT Head: normal to inspection Ears: external ears normal General nose exam: external nose normal Mouth: moist mucous membranes Eyes General: appearance normal, both eyes and all related structures Neck Neck: normal visual inspection Resp Effort & Inspection: normal respiratory effort and able to speak in complete sentences Auscultation: clear to auscultation bilaterally Cardio Jugular venous pressure: no JVD Rate: regular rate GI Palpation: soft and nontender Skin General skin exam: no rashes or lesions noted Neuro General: patient alert and patient oriented x3 Extrem General: normal to inspection Psych Mental Status: mental status grossly normal Course Vital Signs Vital signs: Vital Signs Temperature 36.8 C 06/01/25 07:47 Pulse 77 06/01/25 07:47 Respiratory Rate 20 06/01/25 07:47 Blood Pressure 131/53 L 06/01/25 07:47 Pulse Oximetry 97 06/01/25 07:47 Temperature 36.8 C 06/01/25 07:47 Temperature Source Oral 06/01/25 07:47 Pulse 77 06/01/25 07:47 Respiratory Rate 20 06/01/25 07:47 Blood Pressure 131/53 L 06/01/25 07:47 Blood Pressure Position Sitting 06/01/25 07:47 Pulse Oximetry 97 06/01/25 07:47 Oxygen Delivery Method Room Air 06/01/25 07:47 Oxygen Flow Rate 0 06/01/25 07:47 Pain Level 5 06/01/25 07:47 Medical Decision Making 60-year-old male with a history of hypertension, depression, frequent visits for chest pain comes in 1 hour of anterior chest aching sensation and some mild dyspnea. He states he does feel anxious. He denies any diaphoresis, radiation of pain, pain with exertion. He is well-appearing speaking full sentences. He has clear lung sounds, no JVD, no leg swelling or calf tenderness. I suspect this is unlikely to be cardiac related but will check troponins, also check a D-dimer to screen for PE. He has no tearing back pain and has equal peripheral pulses so I doubt dissection. Patient with 2 negative troponins and D-dimer also less than 500. He is sleeping on reassessment and awakens easily to voice. Given reassuring workup I feel he stable for discharge he can follow-up with his PCP, return precautions given Differential Diagnosis Differential Diagnosis: NSTEMI, chest wall pain, anxiety Medical Records Medical records reviewed: Yes I reviewed the patient's medical records. Lab Data Lab results reviewed: Yes I reviewed the patient's lab results. ECG Data Attestation: I personally reviewed and interpreted this ECG (s) as follows: Prior ECG tracings: available for review Interpretation: Sinus rhythm, rate of 70, no STEMI Quality:SDOH Health Related Social Needs: Health related social needs lonely/isolated PFSH All Active Problems (Updated 06/01/25 @ 10:14 by Doc Ramos MD) Chest pain (Acute) Dental caries (Acute) Nicotine dependence (Acute) Dyspnea on exertion (Acute) Depression (Acute 10/02/14) Chronic headache (Acute) Migraine headache without aura (Acute) Migraine (Chronic) Poor dentition (Acute) Tobacco use disorder (Chronic) started 2013 1.5 ppd, pipe 1-7/week, QUIT LATE OCT 2021 Allergic rhinitis (Chronic) lortadine Hiatal hernia (Chronic) protonix not effective, nexium works better 02/12/18 Anemia (Chronic) Broken teeth (Chronic) Drug-seeking behavior (Chronic ~09/20/21) Requests Ritalin from providers Medication overuse headache (Acute) Medical History Hypercholesterolemia (09/07/14) pt insists on lipitor 80 mg due to family hx Obesity BMI 52 Hypertension pt requests brand name Tenormin vs atenolol 04/02/18 GERD (gastroesophageal reflux disease) (09/07/14) Diabetes mellitus type 2 in obese (09/09/14) Hypothyroidism (acquired) (09/07/14) Schizoaffective disorder (09/07/14) Rebekah Mariscal [facility] 09/2014- [facility] inpatient Trigeminal neuralgia Anxiety Mitral valve prolapse Peripheral neuropathy Surgical History No significant past surgical history Family History Father Heart disease [place] Social History Smoking/Tobacco Use Status: Former Tobacco Use Smoking risk assessment performed?: Yes Alcohol Intake: never Drug use: Never Substance use type: does not use Adopted: No Caregiver/Support person: No Foster care: No Household members: none Housing: apartment Number of Children: 2 number of grandchildren: 1 Communication Needs: Corrective Lenses Education Level: college Do you need help understanding health information?: Always current occupation: Unemployed/Leave of absence Sexually active: No Do you think of yourself as: Decline to provide Current gender identity: male What type of physical activity do you participate in: other Details: weight lifting Frequency: 3-4 times per week Magalie/Spiritism: Buddhism Seatbelt use: always Drive intox or ride w/intox 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
[2025-06-01 08:51] LABS: Abs Immature Grans 0.03 10^3/uL (0.0-0.06); HCT 30.6 % (40.0-50.0); HGB 10.3 g/dL (13.5-17.5); Immature Grans % 0.6 %; MCH 30.9 pg (27.0-33.0); MCHC 33.7 % (32.0-36.0); MCV 92 fL (80-95); MPV 8.8 fL (8.0-11.0); Platelet Count 111 10^3/uL (130-400); RBC 3.33 10^6/uL (4.36-5.78); RDW 12.9 % (11.8-14.1); RDW-SD 43.0 fL; WBC 4.95 10^3/uL (4.4-10.8)
[2025-06-01 09:08] LABS: ALT 25 U/L (16-63); AST 15 U/L (15-37); Albumin 3.3 g/dL (3.4-5.0); Alkaline Phosphatase 57 U/L (46-116); Anion Gap 5.8 mmol/L (3-11); BUN 12 mg/dL (7-18); Bilirubin, Total 0.2 mg/dL (0.2-1.0); CO2 31.2 mmol/L (21.0-32.0); Calcium 9.0 mg/dL (8.5-10.1); Chloride 98 mmol/L (98-107); Estimated GFR 105.49 (mL/min/1.73m2); Glucose 144 mg/dL (74-106); Lipase 10 U/L (<78); Magnesium 1.7 mg/dL (1.8-2.4); Potassium 4.4 mmol/L (3.5-5.1); Sodium 135 mmol/L (136-145); Total Protein 7.1 g/dL (6.4-8.2); Troponin I 6 ng/L (<or=76)
[2025-06-01 09:19] LABS: D-Dimer 382 ng/mlFEU (<500)
[2025-06-01 10:34] LABS: Troponin I 5 ng/L (<or=76)
== END 2025-06-01 11:01 | disposition home or self-care (01) ==
PROVIDERS: Emergency Provider Emergency Medicine; PCP Family Medicine
DX: R07.9 Chest pain, unspecified (principal); I10 Essential (primary) hypertension; E11.9 Type 2 diabetes mellitus without complications; E03.9 Hypothyroidism, unspecified; Z79.84 Long term (current) use of oral hypoglycemic drugs; Z87.891 Personal history of nicotine dependence
CPT/HCPCS: 80053; 83690; 93005; 99284; 83735; 84484; 85025; 85379; 93010; 99283

== ENCOUNTER 2025-06-11 18:23 | Observation (INO) | payer MEDICAID, SELFPAY ==
[2025-06-11] VITALS (34 sets, daily range): BP systolic 122–201; BP diastolic 51–94; PULSE 64–77; RESP 13–20; TEMP 36.1; O2SAT 93–97
--- NOTE | 2025-06-11 18:15 | RT.EKG_ITS ---
APPROVED REPORT Exam: Resting ECG Reason for Exam: chest pain Patient Location: E HR:75 bpm ECG Measurements Heart Rate 75 AXIS FL 195 P 144 QRSd 96 QRS -17 QT 392 T 156 QTc 438 Conclusion Sinus or ectopic atrial rhythm...P axis (-45,135) Low voltage, extremity leads...all extremity leads <0.5mV Nonspecific T abnormalities, lateral leads...T <-0.10mV, I aVL V5 V6 limited interp d/t low voltage, repeat ordered no ST segment or T wave abnormalities to suggest occlusive [place]
--- NOTE | 2025-06-11 18:26 | DI.RAD_ITS ---
Exam(s) XR CHEST 2V PA LATERAL EXAM: XR CHEST 2V PA LATERAL CLINICAL HISTORY: Chest pain. TECHNIQUE: 2D digital imaging was performed. COMPARISON: CR,XR XR CHEST 2V PA LATERAL from 04/18/2025 FINDINGS: 2 views: Heart size is normal. The mediastinum is not widened. Lungs are clear. No infiltrates nor pleural effusions. IMPRESSION: No acute pulmonary findings. DATA REPOSITORY: RADIATION DOSE DELIVERED:
--- NOTE | 2025-06-11 18:30 | RT.EKG_ITS ---
APPROVED REPORT Exam: Resting ECG Reason for Exam: chest pain Patient Location: E HR:75 bpm ECG Measurements Heart Rate 75 AXIS HI 191 P 34 QRSd 98 QRS 13 QT 397 T 105 QTc 444 Conclusion Sinus rhythm...normal P axis, V-rate 60- 99 Nonspecific T abnormalities, lateral leads...T <-0.10mV, I aVL V5 V6 no ST segment or T wave abnormalities to suggest occlusive [place]
[2025-06-11 18:53] LABS: Abs Immature Grans 0.03 10^3/uL (0.0-0.06); HCT 33.1 % (40.0-50.0); HGB 11.2 g/dL (13.5-17.5); Immature Grans % 0.7 %; MCH 30.9 pg (27.0-33.0); MCHC 33.8 % (32.0-36.0); MCV 91 fL (80-95); MPV 8.5 fL (8.0-11.0); Platelet Count 113 10^3/uL (130-400); RBC 3.62 10^6/uL (4.36-5.78); RDW 12.6 % (11.8-14.1); RDW-SD 41.7 fL; WBC 4.35 10^3/uL (4.4-10.8)
[2025-06-11 19:08] LABS: INR 1.0 (0.9-1.1); PTT Activated 23.4 sec (20.6-30.2); Prothrombin Time 10.0 sec (9.1-11.1)
[2025-06-11 19:15] LABS: ALT 25 U/L (16-63); AST 18 U/L (15-37); Albumin 3.3 g/dL (3.4-5.0); Alkaline Phosphatase 62 U/L (46-116); Anion Gap 6.4 mmol/L (3-11); BUN 10 mg/dL (7-18); Bilirubin, Total 0.1 mg/dL (0.2-1.0); CO2 30.6 mmol/L (21.0-32.0); Calcium 8.6 mg/dL (8.5-10.1); Chloride 102 mmol/L (98-107); Estimated GFR 101.32 (mL/min/1.73m2); Glucose 147 mg/dL (74-106); Lipase 11 U/L (<78); Magnesium 1.7 mg/dL (1.8-2.4); NT-proBNP 150 pg/mL (<300); Potassium 4.4 mmol/L (3.5-5.1); Sodium 139 mmol/L (136-145); Total Protein 7.3 g/dL (6.4-8.2); Troponin I 6 ng/L (<or=76)
[2025-06-11 19:19] LABS: D-Dimer 361 ng/mlFEU (<500)
[2025-06-11 20:21] LABS: Troponin I 6 ng/L (<or=76)
[2025-06-11] MEDS: Acetaminophen 500 MG TAB 1000 MG PO (20:21)
[2025-06-11] MEDS: Magnesium Oxide 400 MG TAB PO (20:21)
--- NOTE | 2025-06-11 20:30 | RT.EKG_ITS ---
APPROVED REPORT Exam: Resting ECG Reason for Exam: chest pain Patient Location: E HR:69 bpm ECG Measurements Heart Rate 69 AXIS MD 197 P 28 QRSd 97 QRS 52 QT 413 T -46 QTc 444 Conclusion Sinus rhythm...normal P axis, V-rate 60- [address] segment or T wave abnormalities to suggest occlusive [place]
--- NOTE | 2025-06-11 20:51 | W.ED.GENAD ---
Discharge Plan Disposition Patient Disposition: Admit to [facility] Condition: Serious Discharge Details Clinical Impression: Chest pain Primary Care Provider: Brandon Foster ED Provider: Sparkle Slater Home Meds and New Rx's Prescriptions: No Action gabapentin 300 mg capsule 300 mg PO QID bupropion HCl 75 mg tablet 150 mg PO DAILY Rx Instructions: administer 6 hours apart sumatriptan succinate 100 mg tablet See Rx Instructions PO .COMPLEX Qty: 9 5RF Rx Instructions: take 1 tab at onset of headache; if no relief, may repeat 1 tab after at least 2 hrs; max = 2 tabs/24 hrs PO Nurtec ODT 75 mg tablet,disintegrating 75 mg PO ONCE PRN (Reason: migraine headache) Qty: 8 5RF Rx Instructions: as a single dose; no more than 1 tab per day Emgality Pen 120 mg/mL pen injector 120 mg subcut QMONTH Qty: 1 11RF Claritin Liqui-Gel 10 MG capsule 1 cap PO DAILY Qty: 90 metformin 500 mg tablet 500 mg PO BID fluoxetine 40 mg capsule 80 mg PO DAILY multivitamin Tablet 1 tab PO DAILY clonazepam 0.5 mg tablet See Rx Instructions .ROUTE .COMPLEX Rx Instructions: 1 tab in AM, 1 tab at Noon and 2 tab QHS simvastatin 80 mg tablet 80 mg PO DAILY Patient Comments: Take 1 tablet by mouth once a day benztropine 0.5 MG tablet 0.5 mg PO BID aspirin,buffd-calcium carb-mag 325 MG tablet 325 mg PO DAILY lactulose 10 gram/15 mL solution 20 g PO DIRECTED PRN Patient Comments: TAKE ONE TO TWO TABLESPOONS BY MOUTH NEEDED WHEN 3 DAYS PASS WITHOUT BOWEL MOVEMENT albuterol sulfate 90 mcg/actuation aerosol powdr breath activated 2 inh IH Q6H PRN (Reason: shortness of breath or wheezing) Qty: 1 0RF atenolol 25 mg tablet 75 mg PO DAILY Patient Comments: Take 3 tablet by mouth once a day Invega Sustenna 117 mg/0.75 mL syringe 117 mg IM Q30D divalproex [Depakote ER] 500 mg tablet extended release 24 hr 500 mg PO ONCE omeprazole 40 mg capsule,delayed release(DR/EC) 40 mg PO DAILY Patient Comments: TAKE 1 CAPSULE BY MOUTH DAILY FOR HEARTBURN HPI General Mode of arrival: EMS. Date/Time Provider Initiated Documentation: 06/11/25 18:25. Limitations to Documentation: no limitations. Information obtained by: patient and old records reviewed. HPI Narrative: 60yo M with hx HTN, DM, GERD, anxiety, presenting via EMS with chest pain. Pain is dull, left sided, and non-radiating. Started about an hour prior to arrival; he took 325 [employer]. Has some shortness of breath described as 'feeling labored' that started at the same time. No pain elsewhere. No pleuritic pain. No lightheadeness or syncope. No LE edema. Otherwise in his usual state of health with no fevers, chills, rash, nausea, vomiting, or other concerns. Related Data Home Medications ?Medication ?Instructions ?Recorded ?Confirmed loratadine 10 mg capsule (Claritin 1 cap PO DAILY #90 tabs 12/16/14 06/11/25 Liqui-Gel) aspirin,buffered (calcium 325 mg PO DAILY 11/18/16 06/11/25 carbonate-magnesium) 325 mg tablet benztropine 0.5 mg tablet 0.5 mg PO BID 11/18/16 06/11/25 lactulose 10 gram/15 mL oral 20 g PO DIRECTED PRN 10/03/20 06/11/25 solution albuterol sulfate 90 mcg/actuation 2 inh inhalation Q6H PRN shortness 12/15/20 06/11/25 breath activated powder inhaler of breath or wheezing #1 ea multivitamin 1 tab PO DAILY 01/26/21 06/11/25 clonazepam 0.5 mg tablet See Rx Instructions .Route .COMPLEX 03/04/23 06/11/25 gabapentin 300 mg capsule 300 mg PO QID 03/27/23 06/11/25 atenolol 25 mg tablet 75 mg PO DAILY 01/31/24 06/11/25 divalproex 500 mg tablet,extended 500 mg PO ONCE 01/31/24 06/11/25 release 24 hr (Depakote ER) omeprazole 40 mg capsule,delayed 40 mg PO DAILY 01/31/24 06/11/25 release paliperidone palmitate 117 mg/0.75 117 mg IM Q30D 01/31/24 06/11/25 mL intramuscular syringe (Invega Sustenna) simvastatin 80 mg tablet 80 mg PO DAILY 03/08/24 06/11/25 bupropion HCl 75 mg tablet 150 mg PO DAILY 08/04/24 06/11/25 galcanezumab-gnlm 120 mg/mL 120 mg subcut QMONTH #1 mL 08/04/24 06/11/25 subcutaneous pen injector (Emgality Pen) rimegepant 75 mg disintegrating 75 mg PO ONCE PRN migraine 08/04/24 06/11/25 tablet (Nurtec ODT) headache #8 tabs sumatriptan succinate 100 mg tablet See Rx Instructions PO .COMPLEX #9 08/04/24 06/11/25 tabs fluoxetine 40 mg capsule 80 mg PO DAILY 09/24/24 06/11/25 metformin 500 mg tablet 500 mg PO BID 09/24/24 06/11/25 Previous Rx's ?Medication ?Instructions ?Recorded albuterol sulfate 90 mcg/actuation 2 inh inhalation Q6H PRN shortness 12/15/20 breath activated powder inhaler of breath or wheezing #1 ea galcanezumab-gnlm 120 mg/mL 120 mg subcut QMONTH #1 mL 08/04/24 subcutaneous pen injector (Emgality Pen) rimegepant 75 mg disintegrating 75 mg PO ONCE PRN migraine 08/04/24 tablet (Nurtec ODT) headache #8 tabs sumatriptan succinate 100 mg tablet See Rx Instructions PO .COMPLEX #9 08/04/24 tabs Allergies Allergy/AdvReac Type Severity Reaction Status Date / Time buspirone Allergy Other (See Verified 06/11/25 18:30 Comment) paliperidone Allergy Other (See Verified 06/11/25 18:30 Comment) paroxetine HCl (From Paxil) Allergy Other (See Verified 06/11/25 18:30 Comment) sertraline Allergy Other (See Verified 06/11/25 18:30 Comment) ziprasidone (From Geodon) Allergy Other (See Verified 06/11/25 18:30 Comment) aripiprazole (From Abilify) AdvReac Intermediate INVOLUNTARY Verified 06/11/25 18:30 MUSCLE MOVEMENTS mirtazapine AdvReac Intermediate INVOLUNTARY Verified 06/11/25 18:30 MUSCLE MOVEMENTS risperidone AdvReac Intermediate INVOLUNTARY Verified 06/11/25 18:30 MUSCLE MOVEMENTS enviornmental Allergy Mild Wheezing Uncoded 06/11/25 18:30 General Stated Complaint: Chest Pain CARLOS: 3 Review of Systems Narrative: see HPI Exam Narrative Exam Narrative: General: Alert, well appearing, well nourished, in no acute distress. Head: Normocephalic, atraumatic Neck: Trachea midline, ?Neck supple. ENT: ?MMM.? No oropharygeal lesions or exudate. Cardiac: ?RRR, no murmurs appreciated Resp: No respiratory distress. CTAB. Abd: ?Soft, non-distended, nontender : ?No suprapubic tenderness. No CVA tenderness. Extremities: ?No deformities.? No peripheral edema. Neurologic: GCS 15. ? Moves all extremities freely against gravity Course Vital Signs Vital signs: Vital Signs Pulse 77 06/11/25 18:25 Respiratory Rate 20 06/11/25 18:25 Blood Pressure 201/94 H 06/11/25 18:25 Pulse Oximetry 96 06/11/25 18:25 Pulse 73 06/11/25 20:01 Pulse 72 06/11/25 20:01 Respiratory Rate 20 06/11/25 20:01 Respiratory Effort Normal 06/11/25 18:52 Respiratory Depth Normal 06/11/25 18:52 Respiratory Pattern Normal 06/11/25 18:52 Blood Pressure 130/68 06/11/25 20:01 Blood Pressure Mean 84 06/11/25 20:01 Pulse Oximetry 95 06/11/25 19:59 Oxygen Delivery Method Room Air 06/11/25 18:25 Oxygen Flow Rate 0 06/11/25 18:25 Pain Level 8 06/11/25 18:25 Lab/Test Results Lab/Test Results: Laboratory Tests Range/Units 06/11/25 06/11/25 18:45 19:56 WBC (4.4-10.8) 10^3/uL 4.35 L RBC (4.36-5.78) 10^6/uL 3.62 L Hgb (13.5-17.5) g/dL 11.2 L Hct (40.0-50.0) % 33.1 L MCV (80-95) fL 91 MCH (27.0-33.0) pg 30.9 MCHC (32.0-36.0) % 33.8 RDW (11.8-14.1) % 12.6 Plt Count (130-400) 10^3/uL 113 L MPV (8.0-11.0) fL 8.5 Immature Gran % % 0.7 Neutrophils % % 50.2 Lymphocytes % % 36.3 Monocytes % % 8.7 Eosinophils % % 3.9 Basophils % % 0.2 Nucleated RBC % (0.0-0.3) % 0.0 Absolute Neutrophils (1.2-6.7) 10^3/uL 2.18 Absolute Lymphocytes (1.2-3.4) 10^3/uL 1.58 Absolute Monocytes (0.1-0.8) 10^3/uL 0.38 Absolute Eosinophils (0.0-0.7) 10^3/uL 0.17 Absolute Basophils (0.0-0.2) 10^3/uL 0.01 PT (9.1-11.1) sec 10.0 INR (0.9-1.1) 1.0 APTT (20.6-30.2) sec 23.4 D-Dimer (<500) ng/mlFEU 361 Sodium (136-145) mmol/L 139 Potassium (3.5-5.1) mmol/L 4.4 Chloride (98-107) mmol/L 102 Carbon Dioxide (21.0-32.0) mmol/L 30.6 Anion Gap (3-11) mmol/L 6.4 BUN (7-18) mg/dL 10 Creatinine (0.70-1.30) mg/dL 0.8 Est GFR (CKD-EPI 2020) (mL/min/1.73m2) 101.32 Glucose (74-106) mg/dL 147 H Calcium (8.5-10.1) mg/dL 8.6 Magnesium (1.8-2.4) mg/dL 1.7 L Total Bilirubin (0.2-1.0) mg/dL 0.1 L AST (15-37) U/L 18 ALT (16-63) U/L 25 Alkaline Phosphatase (46-116) U/L 62 Troponin I (<or=76) ng/L 6 6 NT-Pro-B Natriuret Pep (<300) pg/mL 150 Total Protein (6.4-8.2) g/dL 7.3 Albumin (3.4-5.0) g/dL 3.3 L Lipase (<78) U/L 11 Medical Decision Making 60yo M with hx HTN, DM, GERD, anxiety, presenting via EMS with chest pain. Pain is dull, left sided, and non-radiating, onset about one hour prior to arrival. Has had similar episodes in the past for which he has been seen in the ED with no cause found. Hypertensive on arrival, vital signs otherwise reassuring. Non-toxic on exam, no respiratory distress. Took ASA prior to arrival; will give tyelnol here. -EKG on arrival NSR, non-specific T wave abnormalities consistent with prior EKGs 06/01, 04/30, 03/31. No ST segment or T wave abnormalities to suggest occlusive [place]. -CXR independently reviewed, no focal pneumonia or pneumothorax on my view, radiology read with no acute findings. -Labs reviewed as below, CBC reassuring (mild pancytopenia baseline for pt on [facility] record review), CMP with no actionable abnormalities, Mg slightly low at 1.7 (oral replacement given), coags normal, Dimer negative (would not further pursue pulmonary embolism or aortic dissection with CT imaging), lipase not suggestive of pancreatitis, initial troponin 6 (HEART score 3 for age/RF; low risk). On reassessment he reports his chest pain has improved, still present but very mild. No shortness of breath. BP improved to 140's/80's. 3 hour troponin stable. Repeat EKG NSR, T wave changes in avL & aVF compared to prior. ? dynamic T wave changes vs lead reversal. Despite rest of workup being very reassuring, out of abundance of caution will discuss with cardiology regarding disposition (inpatient vs outpatient stress testing). [facility] cardiology consulted; awaiting callback. [id number] Tan [facility] cardiology; advised admission/observation stay for inpatient echocardiogram, repeat EKG, stress test if available. No indication for transfer at this time but would consider transfer for [facility] should results of further workup here be abnormal. Discussed with [facility] hospitalist Dr. Ferrari; pt accepted to medicine service. Awaiting orders and transfer to the floor. Lab Data Lab results reviewed: Yes I reviewed the patient's lab results. Labs: Laboratory Tests Range/Units 06/11/25 06/11/25 18:45 19:56 WBC (4.4-10.8) 10^3/uL 4.35 L RBC (4.36-5.78) 10^6/uL 3.62 L Hgb (13.5-17.5) g/dL 11.2 L Hct (40.0-50.0) % 33.1 L MCV (80-95) fL 91 MCH (27.0-33.0) pg 30.9 MCHC (32.0-36.0) % 33.8 RDW (11.8-14.1) % 12.6 Plt Count (130-400) 10^3/uL 113 L MPV (8.0-11.0) fL 8.5 Immature Gran % % 0.7 Neutrophils % % 50.2 Lymphocytes % % 36.3 Monocytes % % 8.7 Eosinophils % % 3.9 Basophils % % 0.2 Nucleated RBC % (0.0-0.3) % 0.0 Absolute Neutrophils (1.2-6.7) 10^3/uL 2.18 Absolute Lymphocytes (1.2-3.4) 10^3/uL 1.58 Absolute Monocytes (0.1-0.8) 10^3/uL 0.38 Absolute Eosinophils (0.0-0.7) 10^3/uL 0.17 Absolute Basophils (0.0-0.2) 10^3/uL 0.01 PT (9.1-11.1) sec 10.0 INR (0.9-1.1) 1.0 APTT (20.6-30.2) sec 23.4 D-Dimer (<500) ng/mlFEU 361 Sodium (136-145) mmol/L 139 Potassium (3.5-5.1) mmol/L 4.4 Chloride (98-107) mmol/L 102 Carbon Dioxide (21.0-32.0) mmol/L 30.6 Anion Gap (3-11) mmol/L 6.4 BUN (7-18) mg/dL 10 Creatinine (0.70-1.30) mg/dL 0.8 Est GFR (CKD-EPI 2020) (mL/min/1.73m2) 101.32 Glucose (74-106) mg/dL 147 H Calcium (8.5-10.1) mg/dL 8.6 Magnesium (1.8-2.4) mg/dL 1.7 L Total Bilirubin (0.2-1.0) mg/dL 0.1 L AST (15-37) U/L 18 ALT (16-63) U/L 25 Alkaline Phosphatase (46-116) U/L 62 Troponin I (<or=76) ng/L 6 6 NT-Pro-B Natriuret Pep (<300) pg/mL 150 Total Protein (6.4-8.2) g/dL 7.3 Albumin (3.4-5.0) g/dL 3.3 L Lipase (<78) U/L 11 Quality:SDOH Health Related Social Needs: Health related social needs lonely/isolated PFSH All Active Problems (Updated 06/11/25 @ 23:35 by Sparkle Slater MD) Chest pain (Acute) Chest pain (Acute) Dental caries (Acute) Nicotine dependence (Acute) Dyspnea on exertion (Acute) Depression (Acute 10/02/14) Chronic headache (Acute) Migraine headache without aura (Acute) Migraine (Chronic) Poor dentition (Acute) Tobacco use disorder (Chronic) started 2013 1.5 ppd, pipe 1-7/week, QUIT LATE OCT 2021 Allergic rhinitis (Chronic) lortadine Hiatal hernia (Chronic) protonix not effective, nexium works better 02/12/18 Anemia (Chronic) Broken teeth (Chronic) Drug-seeking behavior (Chronic ~09/20/21) Requests Ritalin from providers Medication overuse headache (Acute) Medical History Hypercholesterolemia (09/07/14) pt insists on lipitor 80 mg due to family hx Obesity BMI 52 Hypertension pt requests brand name Tenormin vs atenolol 04/02/18 GERD (gastroesophageal reflux disease) (09/07/14) Diabetes mellitus type 2 in obese (09/09/14) Hypothyroidism (acquired) (09/07/14) Schizoaffective disorder (09/07/14) Rebekah Mariscal [facility] 09/2014- [facility] inpatient Trigeminal neuralgia Anxiety Mitral valve prolapse Peripheral neuropathy Surgical History No significant past surgical history Family History Father Heart disease [place] Social History Smoking/Tobacco Use Status: Former Tobacco Use Smoking risk assessment performed?: Yes Alcohol Intake: never Drug use: Never Substance use type: does not use Adopted: No Caregiver/Support person: No Foster care: No Household members: none Housing: apartment Number of Children: 2 number of grandchildren: 1 Communication Needs: Corrective Lenses Education Level: college Do you need help understanding health information?: Always current occupation: Unemployed/Leave of absence Sexually active: No Do you think of yourself as: Decline to provide Current gender identity: male What type of physical activity do you participate in: other Details: weight lifting Frequency: 3-4 times per week Magalie/Gnosticist: Yazdanism Seatbelt use: always Drive intox or ride w/intox driver license technician: No Working smoke detector in home: Yes Fire extinguisher in home: Yes Carbon monox detector in home: Yes Do you feel safe at home: Yes (anxiety and depression) Do you feel safe in your relationship?: Yes
[2025-06-11 21:52] LABS: Troponin I 6 ng/L (<or=76)
--- NOTE | 2025-06-11 23:34 | W.PM.HP.N ---
Date of service: 06/11/25 Time of Service: 23:35 Assessment and Plan Assessment and plan (1) Atypical chest pain: Start date: 06/11/25 Status: Acute Assessment and plan: This is 60-year-old gentleman who is frequently seen in the ED for chest pain. Presently has T wave flattening in the lateral leads when he was having pain which normalized when he was without pain. He did not receive nitroglycerin sublingually. He is already on a full aspirin with other meds daily. He is on a statin and a beta-deysi. [facility] cardiology recommended follow-up echocardiogram and monitoring with trending troponins overnight. He will be on telemetry. Echocardiogram will be done in the morning and if there are any wall motion abnormalities [facility] cardiology wants to be called back. They did not recommend initiating heparin or Plavix. He is a full code. (2) Diabetes mellitus type 2 in obese: Assessment and plan: Hold metformin and check glucometers before meals and at bedtime with sensitive sliding scale insulin coverage. (3) Hypertension: Assessment and plan: Continue outpatient medical therapy. Patient has elevated compared (4) Tobacco use disorder: Status: Chronic Assessment and plan: Patient is on clonazepam and will not receive nicotine supplement with atypical chest pain. (5) Hypercholesterolemia: (6) Peripheral neuropathy: Assessment and plan: Continue gabapentin. (7) Schizoaffective disorder: Assessment and plan: Continue outpatient medical therapy without change. (8) Migraine headache without aura: Status: Chronic Assessment and plan: Hold rescue inhalers for now with patient having cardiac workup. He is not on chronic suppressive therapy. (9) GERD (gastroesophageal reflux disease): Assessment and plan: Continue PPI. History of Present Illness History of Present Illness Chief Complaint: Chest pain Narrative: This is a 60-year-old gentleman who lives alone and has chronic schizoaffective disorder with anxiety presented with chest pain 1 hour prior to presentation which was left sided and nonradiating with no other associated symptoms. He has had frequent visits with chest discomfort in the past and does frequently ED with multiple complaints. He does have some challenges living alone. He is morbidly obese and not very active. In the ED he arrived by EMS, evaluation showed no acute process with troponins negative but EKG did show some T wave flattening laterally which improved with repeat EKG without pain. Cardiology was consulted at [facility] and they recommended observation overnight with repeat EKG and updated echocardiogram. If he has any wall motion abnormalities they should be recalled for discussion. If he had recurrent chest pain, nitroglycerin should be given as well. He was on aspirin they suggested no IV heparin or Plavix. Patient will be admitted for repeat EKG in the morning with trending troponins and echocardiogram as available. He is a full code. Review of Systems Narrative: 13 point review of systems otherwise unrevealing or stable. Patient is morbidly obese and does have chronic nonpitting edema lower extremities. PFSH All Active Problems Atypical chest pain (Acute) Chest pain (Acute) Chest pain (Acute) Dental caries (Acute) Nicotine dependence (Acute) Dyspnea on exertion (Acute) Depression (Acute 10/02/14) Chronic headache (Acute) Migraine headache without aura (Chronic) Migraine (Chronic) Poor dentition (Acute) Tobacco use disorder (Chronic) started 2013 1.5 ppd, pipe 1-7/week, QUIT LATE OCT 2021 Allergic rhinitis (Chronic) lortadine Hiatal hernia (Chronic) protonix not effective, nexium works better 02/12/18 Anemia (Chronic) Broken teeth (Chronic) Drug-seeking behavior (Chronic ~09/20/21) Requests Ritalin from providers Medication overuse headache (Acute) Medical History Hypercholesterolemia (09/07/14) pt insists on lipitor 80 mg due to family hx Obesity BMI 52 Hypertension pt requests brand name Tenormin vs atenolol 04/02/18 GERD (gastroesophageal reflux disease) (09/07/14) Diabetes mellitus type 2 in obese (09/09/14) Hypothyroidism (acquired) (09/07/14) Schizoaffective disorder (09/07/14) Rebekah Mariscal [facility] 09/2014- [facility] inpatient Trigeminal neuralgia Anxiety Mitral valve prolapse Peripheral neuropathy Surgical History No significant past surgical history Family History Father Heart disease [place] Social History Smoking/Tobacco Use Status: Former Tobacco Use Smoking risk assessment performed?: Yes Alcohol Intake: never Drug use: Never Substance use type: does not use Adopted: No Caregiver/Support person: No Foster care: No Household members: none Housing: apartment Number of Children: 2 number of grandchildren: 1 Communication Needs: Corrective Lenses Education Level: college Do you need help understanding health information?: Always current occupation: Unemployed/Leave of absence Sexually active: No Do you think of yourself as: Decline to provide Current gender identity: male What type of physical activity do you participate in: other Details: weight lifting Frequency: 3-4 times per week Magalie/Congregational: Worship Seatbelt use: always Drive intox or ride w/intox front end 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 Meds Allergies and Home Medications Allergies Allergy/AdvReac Type Severity Reaction Status Date / Time buspirone Allergy Other (See Verified 06/11/25 18:30 Comment) paliperidone Allergy Other (See Verified 06/11/25 18:30 Comment) paroxetine HCl (From Paxil) Allergy Other (See Verified 06/11/25 18:30 Comment) sertraline Allergy Other (See Verified 06/11/25 18:30 Comment) ziprasidone (From Geodon) Allergy Other (See Verified 06/11/25 18:30 Comment) aripiprazole (From Abilify) AdvReac Intermediate INVOLUNTARY Verified 06/11/25 18:30 MUSCLE MOVEMENTS mirtazapine AdvReac Intermediate INVOLUNTARY Verified 06/11/25 18:30 MUSCLE MOVEMENTS risperidone AdvReac Intermediate INVOLUNTARY Verified 06/11/25 18:30 MUSCLE MOVEMENTS enviornmental Allergy Mild Wheezing Uncoded 06/11/25 18:30 Home Medications ?Medication ?Instructions ?Recorded ?Confirmed ?Type loratadine 10 mg capsule (Claritin 1 cap PO DAILY #90 tabs 12/16/14 06/11/25 History Liqui-Gel) aspirin,buffered (calcium 325 mg PO DAILY 11/18/16 06/11/25 History carbonate-magnesium) 325 mg tablet benztropine 0.5 mg tablet 0.5 mg PO BID 11/18/16 06/11/25 History lactulose 10 gram/15 mL oral 20 g PO DIRECTED PRN 10/03/20 06/11/25 History solution albuterol sulfate 90 mcg/actuation 2 inh inhalation Q6H PRN shortness 12/15/20 06/11/25 Rx breath activated powder inhaler of breath or wheezing #1 ea multivitamin 1 tab PO DAILY 01/26/21 06/11/25 History clonazepam 0.5 mg tablet See Rx Instructions .Route .COMPLEX 03/04/23 06/11/25 History gabapentin 300 mg capsule 300 mg PO QID 03/27/23 06/11/25 History atenolol 25 mg tablet 75 mg PO DAILY 01/31/24 06/11/25 History divalproex 500 mg tablet,extended 500 mg PO ONCE 01/31/24 06/11/25 History release 24 hr (Depakote ER) omeprazole 40 mg capsule,delayed 40 mg PO DAILY 01/31/24 06/11/25 History release paliperidone palmitate 117 mg/0.75 117 mg IM Q30D 01/31/24 06/11/25 History mL intramuscular syringe (Invega Sustenna) simvastatin 80 mg tablet 80 mg PO DAILY 03/08/24 06/11/25 History bupropion HCl 75 mg tablet 150 mg PO DAILY 08/04/24 06/11/25 History galcanezumab-gnlm 120 mg/mL 120 mg subcut QMONTH #1 mL 08/04/24 06/11/25 Rx subcutaneous pen injector (Emgality Pen) rimegepant 75 mg disintegrating 75 mg PO ONCE PRN migraine 08/04/24 06/11/25 Rx tablet (Nurtec ODT) headache #8 tabs sumatriptan succinate 100 mg tablet See Rx Instructions PO .COMPLEX #9 08/04/24 06/11/25 Rx tabs fluoxetine 40 mg capsule 80 mg PO DAILY 09/24/24 06/11/25 History metformin 500 mg tablet 500 mg PO BID 09/24/24 06/11/25 History Exam Narrative Exam Narrative: General: Patient appears older than stated age, unkempt, morbidly obese lying in bed conversing with the nurse smacking his lips with moist white substance at both edges of his mouth. He is alert and oriented x 3. HEENT: Normocephalic, eyes with pupils equal and reactive to light symmetrically, extraocular movement intact and sclera anicteric. Oropharynx with poor dentition and dry mucosa. Neck: Supple without JVD. Back: Stooped posture without CVA tenderness. Lungs: Fair aeration with no focalizing rales or rhonchi. No expiratory wheeze. Heart: Regular rate and rhythm with 3/6 holosystolic murmur over the left renal border. No gallops appreciated. Abdomen: Obese contour, soft and nontender to palpation with no palpable hepatosplenomegaly. Large pannus. Genitalia/rectal: Exam deferred. Extremities: Nonpitting edema ankles and feet with fair capillary refill. Skin: Normal color, warm and dry. Neuro: Cranial nerves II through XII gross intact, no focalized motor deficits. No tremor. Patient does have slight Exparel symptom type movement of his mouth. Psych: Flattened affect with depressed mood. Patient ruminates over his somatic complaints. No abnormal thought processes. Remote and recent memory grossly intact. Results Imaging Imaging Studies: EXAM: XR CHEST 2V PA LATERAL CLINICAL HISTORY: Chest pain. TECHNIQUE: 2D digital imaging was performed. COMPARISON: CR,XR XR CHEST 2V PA LATERAL from 04/18/2025 FINDINGS: 2 views: Heart size is normal. The mediastinum is not widened. Lungs are clear. No infiltrates nor pleural effusions. IMPRESSION: No acute pulmonary findings. Labs 06/12/25 06:20 06/11/25 18:45 Labs: Laboratory Results - last 24 hr 06/11/25 06/11/25 06/11/25 18:45 19:56 21:26 WBC 4.35 L RBC 3.62 L Hgb 11.2 L Hct 33.1 L MCV 91 MCH 30.9 MCHC 33.8 RDW 12.6 Plt Count 113 L MPV 8.5 Immature Gran % 0.7 Neutrophils % 50.2 Lymphocytes % 36.3 Monocytes % 8.7 Eosinophils % 3.9 Basophils % 0.2 Nucleated RBC % 0.0 Absolute Neutrophils 2.18 Absolute Lymphocytes 1.58 Absolute Monocytes 0.38 Absolute Eosinophils 0.17 Absolute Basophils 0.01 PT 10.0 INR 1.0 APTT 23.4 D-Dimer 361 Sodium 139 Potassium 4.4 Chloride 102 Carbon Dioxide 30.6 Anion Gap 6.4 BUN 10 Creatinine 0.8 Est GFR (CKD-EPI 2020) 101.32 Glucose 147 H Calcium 8.6 Magnesium 1.7 L Total Bilirubin 0.1 L AST 18 ALT 25 Alkaline Phosphatase 62 Troponin I 6 6 6 NT-Pro-B Natriuret Pep 150 Total Protein 7.3 Albumin 3.3 L Lipase 11 Last Vital Signs Temp 36.1 C L 06/11/25 21:31 Pulse 65 06/11/25 22:20 Resp 17 06/11/25 22:20 BP 160/85 H 06/11/25 22:16 Pulse Ox 93 06/11/25 22:20 Time Spent Time spent with Patient: >75 minutes Time was spent: preparing to see the patient(eg.review tests), obtaining and/or reviewing separately otained hiistory, ordering medications,tests, procedures, referring, communicating with other health post acute care nurse, indepentently interpreting results and care coordination
[2025-06-12 00:20] VITALS: PULSE 67; RESP 15; O2SAT 96
[2025-06-12 00:36] VITALS: BP 147/84; PULSE 68; RESP 20; TEMP 36; O2SAT 93
[2025-06-12 00:37] LABS: COVID-19 PCR Negative (Negative); RSV PCR Negative (Negative)
[2025-06-12 01:23] VITALS: BP 147/84; PULSE 68; RESP 20; TEMP 36; O2SAT 93
--- NOTE | 2025-06-12 04:24 | W.PC.ACHO ---
Registration Status: ADM CURTIS Primary Language: Preferred Language: Kazakh ED Information & Data Chief Complaint Chest Pain 06/11/25 20:54 Triage Note patient c/o 8/10 left non- 06/11/25 18:25 radiating CP that started one hour ago, no other associated symptoms. 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 No cardiac hx reported Medical / Surgical History (Last Reviewed 06/11/25 @ 23:35 by Brandon Ferrari) Hypercholesterolemia (09/07/14) Obesity Hypertension GERD (gastroesophageal reflux disease) (09/07/14) Diabetes mellitus type 2 in obese (09/09/14) Hypothyroidism (acquired) (09/07/14) Schizoaffective disorder (09/07/14) Trigeminal neuralgia Anxiety Mitral valve prolapse Peripheral neuropathy (Last Reviewed 06/11/25 @ 23:35 by Brandon Ferrari) No significant past surgical history Most Recent Vital Signs Temperature 36 C L 06/12/25 01:23 Temperature Source Temporal Artery Scan 06/12/25 01:23 Pulse 68 06/12/25 01:23 Pulse Rhythm Irregular 06/12/25 00:36 Pulse 64 06/11/25 23:40 Respiratory Rate 20 06/12/25 01:23 Respiratory Effort Normal 06/12/25 00:36 Respiratory Depth Normal 06/12/25 00:36 Respiratory Pattern Normal 06/12/25 00:36 Blood Pressure 147/84 H 06/12/25 01:23 Blood Pressure Mean 105 06/12/25 01:23 Pulse Oximetry 93 06/12/25 01:23 Oxygen Delivery Method Room Air 06/12/25 01:23 Oxygen Flow Rate 0 06/12/25 01:23 Pain Level 0 06/12/25 00:36 Allergies buspirone Allergy (Verified 06/11/25 18:30) Other (See Comment) paliperidone Allergy (Verified 06/11/25 18:30) Other (See Comment) paroxetine HCl (From Paxil) Allergy (Verified 06/11/25 18:30) Other (See Comment) sertraline Allergy (Verified 06/11/25 18:30) Other (See Comment) ziprasidone (From Geodon) Allergy (Verified 06/11/25 18:30) Other (See Comment) aripiprazole (From Abilify) Adverse Reaction (Intermediate, Verified 06/11/25 18:30) INVOLUNTARY MUSCLE MOVEMENTS mirtazapine Adverse Reaction (Intermediate, Verified 06/11/25 18:30) INVOLUNTARY MUSCLE MOVEMENTS risperidone Adverse Reaction (Intermediate, Verified 06/11/25 18:30) INVOLUNTARY MUSCLE MOVEMENTS enviornmental Allergy (Mild, Uncoded 06/11/25 18:30) Wheezing IV IV Catheter Type [Right Saline Lock Antecubital] IV Catheter Gauge [Right 20 Antecubital] Diet Orders Category Date Time Status Diabetes Consistent CHO/Heart Healthy [DIET] Nutrition 06/12/25 Breakfast Active Diagnostics 06/12/25 06/12/25 06/11/25 Range/Units 05:35 01:06 23:57 WBC Pending (4.4-10.8) 10^3/uL RBC Pending (4.36-5.78) 10^6/uL Hgb Pending (13.5-17.5) g/dL Hct Pending (40.0-50.0) % MCV Pending (80-95) fL MCH Pending (27.0-33.0) pg MCHC Pending (32.0-36.0) % RDW Pending (11.8-14.1) % Plt Count Pending (130-400) 10^3/uL MPV Pending (8.0-11.0) fL Immature Gran % % Neutrophils % % Lymphocytes % % Monocytes % % Eosinophils % % Basophils % % Nucleated RBC % (0.0-0.3) % Absolute Neutrophils (1.2-6.7) 10^3/uL Absolute Lymphocytes (1.2-3.4) 10^3/uL Absolute Monocytes (0.1-0.8) 10^3/uL Absolute Eosinophils (0.0-0.7) 10^3/uL Absolute Basophils (0.0-0.2) 10^3/uL PT (9.1-11.1) sec INR (0.9-1.1) APTT (20.6-30.2) sec D-Dimer (<500) ng/mlFEU Sodium Pending (136-145) mmol/L Potassium Pending (3.5-5.1) mmol/L Chloride Pending (98-107) mmol/L Carbon Dioxide Pending (21.0-32.0) mmol/L Anion Gap Pending (3-11) mmol/L BUN Pending (7-18) mg/dL Creatinine Pending (0.70-1.30) mg/dL Est GFR (CKD-EPI 2020) Pending (mL/min/1.73m2) Glucose Pending (74-106) mg/dL Calcium Pending (8.5-10.1) mg/dL Magnesium Pending (1.8-2.4) mg/dL Total Bilirubin Pending (0.2-1.0) mg/dL AST Pending (15-37) U/L ALT Pending (16-63) U/L Alkaline Phosphatase Pending (46-116) U/L Troponin I Cancelled Pending (<or=76) ng/L NT-Pro-B Natriuret Pep (<300) pg/mL Total Protein Pending (6.4-8.2) g/dL Albumin Pending (3.4-5.0) g/dL Lipase (<78) U/L COVID-19 Source Nasopharynx SARS-CoV-2 (PCR) Negative (Negative) Influenza Type A (PCR) Negative (Negative) Influenza Type B (PCR) Negative (Negative) RSV (PCR) Negative (Negative) 06/11/25 06/11/25 06/11/25 Range/Units 21:26 19:56 18:45 WBC 4.35 L (4.4-10.8) 10^3/uL RBC 3.62 L (4.36-5.78) 10^6/uL Hgb 11.2 L (13.5-17.5) g/dL Hct 33.1 L (40.0-50.0) % MCV 91 (80-95) fL MCH 30.9 (27.0-33.0) pg MCHC 33.8 (32.0-36.0) % RDW 12.6 (11.8-14.1) % Plt Count 113 L (130-400) 10^3/uL MPV 8.5 (8.0-11.0) fL Immature Gran % 0.7 % Neutrophils % 50.2 % Lymphocytes % 36.3 % Monocytes % 8.7 % Eosinophils % 3.9 % Basophils % 0.2 % Nucleated RBC % 0.0 (0.0-0.3) % Absolute Neutrophils 2.18 (1.2-6.7) 10^3/uL Absolute Lymphocytes 1.58 (1.2-3.4) 10^3/uL Absolute Monocytes 0.38 (0.1-0.8) 10^3/uL Absolute Eosinophils 0.17 (0.0-0.7) 10^3/uL Absolute Basophils 0.01 (0.0-0.2) 10^3/uL PT 10.0 (9.1-11.1) sec INR 1.0 (0.9-1.1) APTT 23.4 (20.6-30.2) sec D-Dimer 361 (<500) ng/mlFEU Sodium 139 (136-145) mmol/L Potassium 4.4 (3.5-5.1) mmol/L Chloride 102 (98-107) mmol/L Carbon Dioxide 30.6 (21.0-32.0) mmol/L Anion Gap 6.4 (3-11) mmol/L BUN 10 (7-18) mg/dL Creatinine 0.8 (0.70-1.30) mg/dL Est GFR (CKD-EPI 2020) 101.32 (mL/min/1.73m2) Glucose 147 H (74-106) mg/dL Calcium 8.6 (8.5-10.1) mg/dL Magnesium 1.7 L (1.8-2.4) mg/dL Total Bilirubin 0.1 L (0.2-1.0) mg/dL AST 18 (15-37) U/L ALT 25 (16-63) U/L Alkaline Phosphatase 62 (46-116) U/L Troponin I 6 6 6 (<or=76) ng/L NT-Pro-B Natriuret Pep 150 (<300) pg/mL Total Protein 7.3 (6.4-8.2) g/dL Albumin 3.3 L (3.4-5.0) g/dL Lipase 11 (<78) U/L COVID-19 Source SARS-CoV-2 (PCR) (Negative) Influenza Type A (PCR) (Negative) Influenza Type B (PCR) (Negative) RSV (PCR) (Negative) Uitcl-ii-Zban Documentation Fingerstick Glucose Start: 06/12/25 00:57 Freq: Status: Complete Protocol: Activity Type Activity Date Activity User E-sign Co-sign Detail Recorded Client Recorded Date Recorded By Document 06/12/25 00:55 BKG DAEMON(10) [id number] 06/12/25 00:57 BKG DAEMON(10) Intake and Output - 24 Hour Total 06/11/25 18:15 thru 06/12/25 00:36 Weight 171.6 kg Falls Risk Assessment History of Falls Previous History 06/12/25 00:36 Contributing Factors Unstable,Impairments 06/12/25 00:36 Ambulatory Aids Independent 06/11/25 18:52 Tubes/Lines With any additional score 06/12/25 00:36 Gait Evaluation W/any additional score 06/12/25 00:36 Cognition No cognitive impairment 06/12/25 00:36 Fall Total Score 61 06/12/25 00:36 Level of Risk High Risk 06/12/25 00:36 Problems (Last Reviewed 06/11/25 @ 23:35 by Brandon Ferrari) Atypical chest pain (Acute) Chest pain (Acute) Migraine headache without aura (Chronic) Tobacco use disorder (Chronic) v v v v v v v v v Sending and/or Receiving Nurses: Please use comment section below to note any information pertinent to the patient hand-off not included above. Information / Comments: Report taken from ED RN Laurent, Patient is AO x 3. came in with presenting problem of non radiating chest pain. EKG shows some changes from previous result. Troponin is negative. Has g.20 onRt AC. Report received from:
[2025-06-12] MEDS: Acetaminophen 325 MG TAB 650 MG PO ×2 (05:00→15:16)
[2025-06-12 06:41] LABS: HCT 31.8 % (40.0-50.0); HGB 11.1 g/dL (13.5-17.5); MCH 31.8 pg (27.0-33.0); MCHC 34.9 % (32.0-36.0); MCV 91 fL (80-95); MPV 8.8 fL (8.0-11.0); Platelet Count 119 10^3/uL (130-400); RBC 3.49 10^6/uL (4.36-5.78); RDW 12.6 % (11.8-14.1); RDW-SD 41.7 fL; WBC 4.45 10^3/uL (4.4-10.8)
--- NOTE | 2025-06-12 07:00 | RT.EKG_ITS ---
APPROVED REPORT Exam: Resting ECG Reason for Exam: Chest pain with T wave abnormalities laterally. Patient Location: I HR:62 bpm ECG Measurements Heart Rate 62 AXIS NM 201 P 49 QRSd 109 QRS 10 QT 425 T 98 QTc 432 Conclusion Sinus rhythm...normal P axis, V-rate 50- 99 Nonspecific T abnormalities, lateral leads...T <-0.10mV, I aVL V5 V6
[2025-06-12 07:01] LABS: ALT 23 U/L (16-63); AST 14 U/L (15-37); Albumin 3.2 g/dL (3.4-5.0); Alkaline Phosphatase 55 U/L (46-116); Anion Gap 6.3 mmol/L (3-11); BUN 10 mg/dL (7-18); Bilirubin, Total 0.2 mg/dL (0.2-1.0); CO2 30.7 mmol/L (21.0-32.0); Calcium 8.4 mg/dL (8.5-10.1); Chloride 99 mmol/L (98-107); Estimated GFR 110.51 (mL/min/1.73m2); Glucose 141 mg/dL (74-106); Magnesium 1.8 mg/dL (1.8-2.4); Potassium 4.4 mmol/L (3.5-5.1); Sodium 136 mmol/L (136-145); Total Protein 7.2 g/dL (6.4-8.2)
[2025-06-12 07:02] LABS: Troponin I 7 ng/L (<or=76)
[2025-06-12 07:27] VITALS: BP 145/61; PULSE 62; RESP 16; TEMP 36.2; O2SAT 96
[2025-06-12] MEDS: FLUoxetine 20 MG CAP 80 MG PO (07:57)
[2025-06-12] MEDS: Enoxaparin 40 MG/0.4 ML SYR SC (07:57)
[2025-06-12] MEDS: Normal Saline Flush 10 ML SYR IVP (07:57)
[2025-06-12] MEDS: Simvastatin 40 MG TAB 80 MG PO (07:57)
[2025-06-12] MEDS: Gabapentin 300 MG CAP PO ×3 (07:58→15:16)
[2025-06-12] MEDS: Multivitamin TAB 1 TAB PO (07:58)
[2025-06-12] MEDS: Omeprazole 20 MG CAPCR 40 MG PO (07:58)
[2025-06-12] MEDS: buPROPion-CR 150 MG TABCR PO (07:58)
[2025-06-12] MEDS: clonazePAM 0.5 MG TAB PO ×2 (07:58→12:12)
[2025-06-12] MEDS: Atenolol 25 MG TAB 75 MG PO (07:58)
[2025-06-12] MEDS: Aspirin 81 MG CHEW PO (07:58)
[2025-06-12] MEDS: Benztropine 1 MG TAB 0.5 MG PO (07:59)
--- NOTE | 2025-06-12 08:00 | DI.US_ITS ---
APPROVED REPORT EXAM: Comprehensive 2D, Doppler, and color-flow Echocardiogram Patient Location: In-Patient [employer] Instructor: Brianna Rodriguez RT (R) (CT) RD Rhythm: NSR Indications: Atypical chest pain. Other Information Study Quality: Fair Conclusion Borderline concentric left ventricular hypertrophy. Ejection fraction is 60 to 65%. Wall motion is normal Normal right ventricular size and function Both atria are normal in size Trileaflet aortic valve without stenosis or regurgitation Mildly thickened mitral leaflets. Mild mitral regurgitation Wall motion Left Ventricle The left ventricle is normal size. The left ventricular systolic function is normal. The left ventricular ejection fraction is within the normal range. Mild concentric left ventricular hypertrophy. There is normal LV segmental wall motion. Grade I diastolic dysfunction. There is no ventricular septal defect visualized. LVEF is 60%. Right Ventricle The right ventricle is normal size. The right ventricular systolic function is normal. Atria The left atrium size is normal. The right atrium size is normal. The interatrial septum is intact with no evidence for an atrial septal defect. Aortic Valve Aortic valve is trileaflet. There is no aortic valvular stenosis. No aortic regurgitation is present. Mitral Valve Mitral valve leaflets are thickened. The leaflets flatten, but do not prolapse. No evidence of mitral valve stenosis. Mild mitral regurgitation. Tricuspid Valve The tricuspid valve is normal in structure. There is no tricuspid valve stenosis. Trace tricuspid regurgitation. PA pressures could not be measured due to inadequate TR jet. Pulmonic Valve The pulmonary valve is normal in structure. There is no pulmonic valvular stenosis. Mild pulmonic regurgitation. Great Vessels The aortic root is normal in size. The pulmonary artery is normal. The ascending aorta is normal in size. IVC is normal in size and collapses >50% with inspiration. Pericardium Trivial echo free space noted, best seen subcostally. Pericardial fat pad. ri 2D Dimensions IVSD d PLAX 1.16 cm M: 0.6-1.2 Ao Root d 3.02 cm M: 3.1 - 3.7 LVPW d PLAX 0.89 cm M: 0.6 - 1.2 Ao Asc Diam d 3.45 cm M: 2.6 - 3.4 LVID d PLAX 5.44 cm M: 4.2 - 5.8 Prox Ao Arch 3.0 cm LVDs 3.70 cm M: 2.5 - 4.0 RVID Mid Diam 3.76 cm LV EF Teichholz 59.6 % RVID Base Diam (A4C) 3.95 cm (M/F) 2.5-4.1 FS 32.02 % IVC Diam exp d SLAX 2.0 cm LV EDV (Teich) 143.9 mL LV ESV (Teich) 58.1 mL M-Mode TAPSE 2.18 cm (M/F) >1.7 Auto EF LV EDV A4C 140.5 mL LV EDV A2C 163.2 mL LV EDV BP 151.6 mL LV ESV A4C 95.5 mL LV ESV A2C 81.6 mL LV ESV BP 88.5 mL LVEF(%) A4C 32.0 % LVEF(%) A2C 50.0 % LVEF(%) BP 41.6 % LV SV A4C 44.9 ml LV SV A2C 81.6 ml LV SV BP 63.1 ml LV CO A4C 2.8 L/min LV CO A2C 4.9 L/min LV CO BP 3.9 L/min HR A4C 62.29 BPM HR A2C 60.40 BPM LV EDV Index (BP) LV Volumes - Method of Disks (Pemberton's) Single Plane 2D LV Volumes Biplane 2D LV Volumes LV EDV A4C 119.8 mL LV EDV BP 127.93 mL M: 62 - 150 LV ESV A4C 54.2 mL LV ESV BP 51.9 mL LVEF(%) A4C 54.7 % LVEF(%) BP 59.40 % M: 52 - 72 LV EDV A2C 137.6 mL LV EDV BP Index 43.96 mL/m2 M: 34 - 74 LV ESV A2C 50.5 mL SV BP LVEF(%) A2C 63.3 % SV Index LV Strain Long Pk Overal Avg (s) 12.59 RV Strain Global Peak Long. Strain A4C 19.53 Global Peak Long. Strain A4C FW 22.30 LA Volume LA Length A4C 6.0 cm LA Length A2C 5.3 cm LA Area A4C s 19.44 cm2 LA Area A2C s 18.04 cm2 LA Vol A4C A-L 53.07 mL LA Vol A2C A-L 52.08 mL LA Vol Biplane A-L 56.1 mL LA Vol/BSA A4C A-L LA Vol/BSA A2C A-L LA Vol/BSA BP A-L 19.4 mL/m2 LA Vol A4C MOD 47.3 mL LA Vol A2C MOD 50.8 mL LA Vol BP MOD 52.2 mL LV Diastology MV E' medial 0.060 (>0.07 m/s) MV E Vmax 0.96 (0.4-1.3 m/s) MV E/E' MED 16.03 (<14) MV A Vmax 0.60 (0.4-1.3 m/s) MV E' lateral 0.105 (>0.1 m/s) E/A Ratio 1.6 MV E/E' LAT 9.19 (<14) MV E' Average 0.082 m/s MV E/E'(average) 11.69 Aortic Valve LVOT Vmax 1.05 m/s LVOT Peak Grad 4.4 mmHg LVOT VTI 0.232 m LVOT Mean Grad 2.1 mmHg LVOT SV 84.40 mL LVOT Diam s 2.15 cm Mitral Valve MV DT 185 (160-240 msec) Pulm Vein s 0.37 m/s Pulm Vein d 0.73 m/s Pulm Vein a 0.26 m/s Pulmonary Valve RVOT Vmax 0.55 m/s RVOT Peak Gr. 1.2 mmHg RVOT VTI 0.137 m RVOT Mean Gr. 0.7 mmHg [place] ED Velocity 1.20 m/s [place] Grad 5.8 mmHg Tricuspid Valve RA Pressure 3.00 mmHg TV S' 0.12 m/s
--- NOTE | 2025-06-12 08:34 | INITIAL_ITS ---
Date of service: 06/12/25 Time of Service: 08:34 Care Management Initial Assmt Initial Assessment Reason for Hospitalization: Atypical chest pain Functional Status/Living Situation Patient Presentation: Avery was sitting in a chair when CM met with him. He was pleasant and easily engaged in conversation. 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 He reports receiving a letter in the mail and is uncertain but believes his RESEARCH QUALITY ASSURANCE ANALYST services may be ending. Avery has no real local family or friends and expressed concern if this happens because [employer] is his major source of company, and the only time he gets out of his apartment each week. Avery reports that his rent will be increasing by $51 and is agreeable to a referral to [facility] to review community resources. 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 Brittany (or Tequila per pt) Natural Supports: None identified Employment Status: Disabled Instrumental Activities of Daily Living (ADLs): Independent Medications Medication Management: No Issues/Barriers identified Physical Functioning/Mobility Assistive Device: none reported Advance Directives Advance Directives: Do you have an Advance Directive: N , 09:10 AD On File at [facility]: N 02/14/23, 09:10 Date Asked 06/11/25 06/11/25, 18:30 AD Date Reviewed COLST On File at [facility] COLST Date Scanned Code Status Resuscitation Status Full Code Insurance Coverage/Financial Issues Insurance: Medicaid of [place] - [id number] Financial Issues: [facility] referral placed Care Team Visit Care Team Role Provider Type Cher Garcia APRN MD [facility] STAFF PHYSICIAN Brandon Foster Primary Care Provider OSTEOPATHIC DOCTOR Sparkle Slater MD Emergency Provider [facility] STAFF PHYSICIAN Brandon Ferrari Admit Provider [facility] STAFF PHYSICIAN Attending Provider Discharge Potential Discharge Needs: PCP F/U Appt ([facility] in [place], Dr. Foster) Anticipated Barriers to Discharge: None Identified Patient/Family Education Needs: Review discharge instructions, discuss Ask Me Three Transportation: RCT Plan: Discharge home via RCT private vehicle. Follow up with community providers and discharge plan of care as directed. No new services are needed prior to discharge. CM will follow. Social Determinants of Health Screening Social Determinants of health last assessed in clinic: 06/12/25 Will the Patient Participate in the Screening?: Yes Do you worry about having a steady place to live?: yes What is your living situation today?: I have housing today, but am worried about losing it Problems where you live: oven or stove not working and water leaks In the past 12 months, have you had to go without electric, gas, oil or water in your home?: no 1. Within the past 12 months, we worried whether our food would run out before we got money to buy more.: Sometimes true 2. Within the past 12 months, the food we bought just didn't last and we didn't have money to get more.: Sometimes true Has lack of transportation kept you from medical appointments or from doing things needed for daily living?: no Has anyone in your life made you feel unsafe or unsupported?: no How hard is it for you to pay for the very basics like food, housing, medical care, and heating? Would you say it is:: Somewhat hard Do you want help finding or keeping work or a job?: I do not need or want help If for any reason you need help with day-to-day activities such as bathing, preparing meals, shopping, managing finances, etc., do you get the help you need?: I could use a little more help How often do you feel lonely or isolated from those around you?: Sometimes Do you speak a language other than Bulgarian at home?: No Does the patient want assistance with any of the above?: No Health Related Social Needs Health related social needs: inadequate housing (Z59.1), housing instability, housed, with risk of homelessness (Z59.811), food insecurity (Z59.41), problems related to housing/economic circumstances (Z59.89), problems with daily activities (Z73.9) and feeling lonely/isolated (Z60.8) Health related social needs details: needs help apartment will raise rental fee. PFSH All Active Problems (Updated 06/12/25 @ 16:00 by Cher Garcia APRN) Atypical chest pain (Acute) Chest pain (Acute) Chest pain (Acute) Dental caries (Acute) Nicotine dependence (Acute) Dyspnea on exertion (Acute) Depression (Acute 10/02/14) Chronic headache (Acute) Migraine headache without aura (Chronic) Migraine (Chronic) Poor dentition (Acute) Tobacco use disorder (Chronic) started 2013 1.5 ppd, pipe 1-7/week, QUIT LATE OCT 2021 Allergic rhinitis (Chronic) lortadine Hiatal hernia (Chronic) protonix not effective, nexium works better 02/12/18 Anemia (Chronic) Broken teeth (Chronic) Drug-seeking behavior (Chronic ~09/20/21) Requests Ritalin from providers Medication overuse headache (Acute) Medical History Hypercholesterolemia (09/07/14) pt insists on lipitor 80 mg due to family hx Obesity BMI 52 Hypertension pt requests brand name Tenormin vs atenolol 04/02/18 GERD (gastroesophageal reflux disease) (09/07/14) Diabetes mellitus type 2 in obese (09/09/14) Hypothyroidism (acquired) (09/07/14) Schizoaffective disorder (09/07/14) Rebekah Mariscal [facility] 09/2014- [facility] inpatient Trigeminal neuralgia Anxiety Mitral valve prolapse Peripheral neuropathy Surgical History No significant past surgical history Family History Father Heart disease [place] Social History Smoking/Tobacco Use Status: Former Tobacco Use Smoking risk assessment performed?: Yes Alcohol Intake: never Drug use: Never Substance use type: does not use Adopted: No Caregiver/Support person: No Foster care: No Household members: none Housing: apartment Number of Children: 2 number of grandchildren: 1 Communication Needs: Corrective Lenses Education Level: college Do you need help understanding health information?: Always current occupation: Unemployed/Leave of absence Sexually active: No Do you think of yourself as: Decline to provide Current gender identity: male What type of physical activity do you participate in: other Details: weight lifting Frequency: 3-4 times per week Magalie/Taoist: Mormonism Seatbelt use: always Drive intox or ride w/intox jinrikisha 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
--- NOTE | 2025-06-12 09:28 | W.PM.PROGNOT ---
Assessment and Plan Assessment and plan (1) Atypical chest pain: Start date: 06/11/25 Status: Acute Assessment and plan: This is 60-year-old gentleman who is frequently seen in the ED for chest pain. Presently has T wave flattening in the lateral leads when he was having pain which normalized when he was without pain. He did not receive nitroglycerin sublingually. He is already on a full aspirin with other meds daily. He is on a statin and a beta-deysi. [facility] [place] follow-up echocardiogram and monitoring with trending troponins overnight. He will be on telemetry. Echocardiogram will be done in the morning and if there are any wall motion abnormalities [facility] [place] wants to be called back. They did not recommend initiating heparin or Plavix. He is a full code. (2) Diabetes mellitus type 2 in obese: Assessment and plan: Hold metformin and check glucometers before meals and at bedtime with sensitive sliding scale insulin coverage. (3) Hypertension: Assessment and plan: Continue outpatient medical therapy. Patient has elevated compared (4) Tobacco use disorder: Status: Chronic Assessment and plan: Patient is on clonazepam and will not receive nicotine supplement with atypical chest pain. (5) Hypercholesterolemia: (6) Peripheral neuropathy: Assessment and plan: Continue gabapentin. (7) Schizoaffective disorder: Assessment and plan: Continue outpatient medical therapy without change. (8) Migraine headache without aura: Status: Chronic Assessment and plan: Hold rescue inhalers for now with patient having cardiac workup. He is not on chronic suppressive therapy. (9) GERD (gastroesophageal reflux disease): Assessment and plan: Continue PPI. Objective Last Vital Signs Temp 36.2 C L 06/12/25 07:27 Pulse 62 06/12/25 07:27 Resp 16 06/12/25 07:27 BP 145/61 H 06/12/25 07:27 Pulse Ox 96 06/12/25 07:27 Laboratory Results - last 24 hr 06/11/25 06/11/25 06/11/25 18:45 19:56 21:26 WBC 4.35 L RBC 3.62 L Hgb 11.2 L Hct 33.1 L MCV 91 MCH 30.9 MCHC 33.8 RDW 12.6 Plt Count 113 L MPV 8.5 Immature Gran % 0.7 Neutrophils % 50.2 Lymphocytes % 36.3 Monocytes % 8.7 Eosinophils % 3.9 Basophils % 0.2 Nucleated RBC % 0.0 Absolute Neutrophils 2.18 Absolute Lymphocytes 1.58 Absolute Monocytes 0.38 Absolute Eosinophils 0.17 Absolute Basophils 0.01 PT 10.0 INR 1.0 APTT 23.4 D-Dimer 361 Sodium 139 Potassium 4.4 Chloride 102 Carbon Dioxide 30.6 Anion Gap 6.4 BUN 10 Creatinine 0.8 Est GFR (CKD-EPI 2020) 101.32 Glucose 147 H Calcium 8.6 Magnesium 1.7 L Total Bilirubin 0.1 L AST 18 ALT 25 Alkaline Phosphatase 62 Troponin I 6 6 6 NT-Pro-B Natriuret Pep 150 Total Protein 7.3 Albumin 3.3 L Lipase 11 COVID-19 Source SARS-CoV-2 (PCR) Influenza Type A (PCR) Influenza Type B (PCR) RSV (PCR) 06/11/25 06/12/25 06/12/25 23:57 05:35 06:20 WBC 4.45 RBC 3.49 L Hgb 11.1 L Hct 31.8 L MCV 91 MCH 31.8 MCHC 34.9 RDW 12.6 Plt Count 119 L MPV 8.8 Immature Gran % Neutrophils % Lymphocytes % Monocytes % Eosinophils % Basophils % Nucleated RBC % Absolute Neutrophils Absolute Lymphocytes Absolute Monocytes Absolute Eosinophils Absolute Basophils PT INR APTT D-Dimer Sodium 136 Potassium 4.4 Chloride 99 Carbon Dioxide 30.7 Anion Gap 6.3 BUN 10 Creatinine 0.6 L Est GFR (CKD-EPI 2020) 110.51 Glucose 141 H Calcium 8.4 L Magnesium 1.8 Total Bilirubin 0.2 AST 14 L ALT 23 Alkaline Phosphatase 55 Troponin I Cancelled 7 NT-Pro-B Natriuret Pep Total Protein 7.2 Albumin 3.2 L Lipase COVID-19 Source Nasopharynx SARS-CoV-2 (PCR) Negative Influenza Type A (PCR) Negative Influenza Type B (PCR) Negative RSV (PCR) Negative
[2025-06-12] MEDS: Divalproex Sodium 500 MG TAB.ER.24H PO (12:12)
[2025-06-12] MEDS: Insulin Aspart 300 UNITS/3 ML PEN SC (12:13)
--- NOTE | 2025-06-12 15:39 | DSE_ITS ---
Date of service: 06/12/25 Time of Service: 15:40 DS: Diagnosis Discharge Diagnosis (1) Atypical chest pain: Status: Acute (2) Diabetes mellitus type 2 in obese: (3) Hypertension: (4) Tobacco use disorder: Status: Chronic (5) Hypercholesterolemia: (6) Peripheral neuropathy: (7) Schizoaffective disorder: (8) Migraine headache without aura: Status: Chronic (9) GERD (gastroesophageal reflux disease): Discharge Plan Disposition Patient Disposition: Home Condition: Improving Discharge Details Reason For Visit: Atypical chest pain, NIDDM Admit Date/Time: 06/11/25 23:52 Admit Provider: Brandon Ferrari Attending Provider: Brandon Ferrari Primary Care Provider: Brandon Foster Hospital Course Hospital Course: This 60 yo amle patient with a past medical history of HTN, DM, GERD, anxiety, presented to the ED on 06/11/25 via EMS for evaluation of dull left-sided non- radiating chest pain with shortness of breath described as 'feeling labored' that started at the same time. hemodynamically stble on arrival Work-up in the EDwas negative for coronary occlusion on EKG showing NSR with non-specific T wave abnormalities consistent with prior EKGs 06/01, 04/30, 03/31. Chest XR was negtive for acute findings[place] [facility] [place] , recommended observation, inpatient echocardiogram, repeat EKG, stress test if available. The patient was admitted to the medical surgical floor to the hospitalist for further evaluation. The patient had no further chest pain, troponin remained negative. The patient remained in a NSR on telemetry and subsequent EKG showed improvement in T lead reversal and no ST segment depression and ongoing abscence of coronary occlusion. Echocardiogram completed: Conclusion Borderline concentric left ventricular hypertrophy. Ejection fraction is 60 to 65%. Wall motion is normal Normal right ventricular size and function Both atria are normal in size Trileaflet aortic valve without stenosis or regurgitation Mildly thickened mitral leaflets. Mild mitral regurgitation There is normal LV segmental wall motion. Grade I diastolic dysfunction. IVC is normal in size and collapses >50% with inspiration. On the day of discharge the patient was hemodynamically stable and will be discharged home with PCP follow up within 7 days of discharge. Recommendation for PCP follow-up: Cardiology referral as per PCP Stress test/ MPI outpatient Discussed with Dr. Whittaker Home Meds and New Rx's Prescriptions: Continued gabapentin 300 mg capsule 300 mg PO QID bupropion HCl 75 mg tablet 150 mg PO DAILY Rx Instructions: administer 6 hours apart sumatriptan succinate 100 mg tablet See Rx Instructions PO .COMPLEX Qty: 9 5RF Rx Instructions: take 1 tab at onset of headache; if no relief, may repeat 1 tab after at least 2 hrs; max = 2 tabs/24 hrs PO Nurtec ODT 75 mg tablet,disintegrating 75 mg PO ONCE PRN (Reason: migraine headache) Qty: 8 5RF Rx Instructions: as a single dose; no more than 1 tab per day Emgality Pen 120 mg/mL pen injector 120 mg subcut QMONTH Qty: 1 11RF Claritin Liqui-Gel 10 MG capsule 1 cap PO DAILY Qty: 90 metformin 500 mg tablet 500 mg PO BID fluoxetine 40 mg capsule 80 mg PO DAILY multivitamin Tablet 1 tab PO DAILY clonazepam 0.5 mg tablet See Rx Instructions .ROUTE .COMPLEX Rx Instructions: 1 tab in AM, 1 tab at Noon and 2 tab QHS simvastatin 80 mg tablet 80 mg PO DAILY Patient Comments: Take 1 tablet by mouth once a day benztropine 0.5 MG tablet 0.5 mg PO BID aspirin,buffd-calcium carb-mag 325 MG tablet 325 mg PO DAILY lactulose 10 gram/15 mL solution 20 g PO DIRECTED PRN Patient Comments: TAKE ONE TO TWO TABLESPOONS BY MOUTH NEEDED WHEN 3 DAYS PASS WITHOUT BOWEL MOVEMENT albuterol sulfate 90 mcg/actuation aerosol powdr breath activated 2 inh IH Q6H PRN (Reason: shortness of breath or wheezing) Qty: 1 0RF atenolol 25 mg tablet 75 mg PO DAILY Patient Comments: Take 3 tablet by mouth once a day Invega Sustenna 117 mg/0.75 mL syringe 117 mg IM Q30D divalproex [Depakote ER] 500 mg tablet extended release 24 hr 500 mg PO BID omeprazole 40 mg capsule,delayed release(DR/EC) 40 mg PO DAILY Patient Comments: TAKE 1 CAPSULE BY MOUTH DAILY FOR HEARTBURN Discharge Instructions Activity:: Activity as Tolerated Equipment/Supplies:: Walker Diet:: As per SLIMER Discharge Orders Discharge Orders: Discharge Order (Routine); Ordered 06/12/25 Ordered By: Cher Garcia DS: Summary Time Spent with Patient providing and/or coordinating discharge services: Greater than 30 minutes Status at Discharge Functional status at discharge: uses cane/walker Overall status at discharge: patient is progressing back to baseline Mental Status: mental status grossly normal Speech and Movement: speech and movement normal Mood: congruent mood Affect: blunted Quality:SDOH Health Related Social Needs: Health related social needs inadequate housing risk of homeless house/econ circumstance daily activities lonely/isolated Health related social needs details needs help apartme nt will raise rental fee. Health related social needs details: needs help apartment will raise rental fee. Exam Narrative Exam Narrative: General: appears older than stated age morbidly obese, sleepy but arousable, alert and oriented x 3, no focalized motor deficit, clear lungs, no murmur, regular heart,abomen is obese, non-distended, soft non-tender trace non-pitting edema ankles and feett. Psych Mental Status: mental status grossly normal Speech and Movement: speech and movement normal Mood: congruent mood Affect: blunted DS: Data Vitals/I&O Vitals and I&O: Vital Signs Temperature 36.2 C L 06/12/25 07:27 Temperature Source Temporal Artery Scan 06/12/25 07:27 Pulse 62 06/12/25 07:27 Pulse Rhythm Irregular 06/12/25 00:36 Pulse 64 06/11/25 23:40 Respiratory Rate 16 06/12/25 07:27 Respiratory Effort Normal 06/12/25 00:36 Respiratory Depth Normal 06/12/25 00:36 Respiratory Pattern Normal 06/12/25 00:36 Blood Pressure 145/61 H 06/12/25 07:27 Blood Pressure Mean 89 06/12/25 07:27 Pulse Oximetry 96 06/12/25 07:27 Oxygen Delivery Method Room Air 06/12/25 07:27 Oxygen Flow Rate 0 06/12/25 07:27 Pain Level 4 06/12/25 15:16 Intake & Output 06/11/25 06/12/25 06/12/25 23:59 11:59 23:59 Weight 170.097 kg 171.6 kg Data Completed and Pending Labs on day of discharge: Labs from last 24 hours 06/12/25 06/12/25 06/11/25 06:20 05:35 23:57 WBC 4.45 RBC 3.49 L Hgb 11.1 L Hct 31.8 L MCV 91 MCH 31.8 MCHC 34.9 RDW 12.6 Plt Count 119 L MPV 8.8 Immature Gran % Neutrophils % Lymphocytes % Monocytes % Eosinophils % Basophils % Nucleated RBC % Absolute Neutrophils Absolute Lymphocytes Absolute Monocytes Absolute Eosinophils Absolute Basophils PT INR APTT D-Dimer Sodium 136 Potassium 4.4 Chloride 99 Carbon Dioxide 30.7 Anion Gap 6.3 BUN 10 Creatinine 0.6 L Est GFR (CKD-EPI 2020) 110.51 Glucose 141 H Calcium 8.4 L Magnesium 1.8 Total Bilirubin 0.2 AST 14 L ALT 23 Alkaline Phosphatase 55 Troponin I 7 Cancelled NT-Pro-B Natriuret Pep Total Protein 7.2 Albumin 3.2 L Lipase COVID-19 Source Nasopharynx SARS-CoV-2 (PCR) Negative Influenza Type A (PCR) Negative Influenza Type B (PCR) Negative RSV (PCR) Negative 06/11/25 06/11/25 06/11/25 21:26 19:56 18:45 WBC 4.35 L RBC 3.62 L Hgb 11.2 L Hct 33.1 L MCV 91 MCH 30.9 MCHC 33.8 RDW 12.6 Plt Count 113 L MPV 8.5 Immature Gran % 0.7 Neutrophils % 50.2 Lymphocytes % 36.3 Monocytes % 8.7 Eosinophils % 3.9 Basophils % 0.2 Nucleated RBC % 0.0 Absolute Neutrophils 2.18 Absolute Lymphocytes 1.58 Absolute Monocytes 0.38 Absolute Eosinophils 0.17 Absolute Basophils 0.01 PT 10.0 INR 1.0 APTT 23.4 D-Dimer 361 Sodium 139 Potassium 4.4 Chloride 102 Carbon Dioxide 30.6 Anion Gap 6.4 BUN 10 Creatinine 0.8 Est GFR (CKD-EPI 2020) 101.32 Glucose 147 H Calcium 8.6 Magnesium 1.7 L Total Bilirubin 0.1 L AST 18 ALT 25 Alkaline Phosphatase 62 Troponin I 6 6 6 NT-Pro-B Natriuret Pep 150 Total Protein 7.3 Albumin 3.3 L Lipase 11 COVID-19 Source SARS-CoV-2 (PCR) Influenza Type A (PCR) Influenza Type B (PCR) RSV (PCR) PFSH All Active Problems (Updated 06/12/25 @ 16:00 by Cher Garcia APRN) Atypical chest pain (Acute) Chest pain (Acute) Chest pain (Acute) Dental caries (Acute) Nicotine dependence (Acute) Dyspnea on exertion (Acute) Depression (Acute 10/02/14) Chronic headache (Acute) Migraine headache without aura (Chronic) Migraine (Chronic) Poor dentition (Acute) Tobacco use disorder (Chronic) started 2013 1.5 ppd, pipe 1-7/week, QUIT LATE OCT 2021 Allergic rhinitis (Chronic) lortadine Hiatal hernia (Chronic) protonix not effective, nexium works better 02/12/18 Anemia (Chronic) Broken teeth (Chronic) Drug-seeking behavior (Chronic ~09/20/21) Requests Ritalin from providers Medication overuse headache (Acute) Medical History Hypercholesterolemia (09/07/14) pt insists on lipitor 80 mg due to family hx Obesity BMI 52 Hypertension pt requests brand name Tenormin vs atenolol 04/02/18 GERD (gastroesophageal reflux disease) (09/07/14) Diabetes mellitus type 2 in obese (09/09/14) Hypothyroidism (acquired) (09/07/14) Schizoaffective disorder (09/07/14) Rebekah Mariscal [facility] 09/2014- [facility] inpatient Trigeminal neuralgia Anxiety Mitral valve prolapse Peripheral neuropathy Surgical History No significant past surgical history Family History Father Heart disease [place] Social History Smoking/Tobacco Use Status: Former Tobacco Use Smoking risk assessment performed?: Yes Alcohol Intake: never Drug use: Never Substance use type: does not use Adopted: No Caregiver/Support person: No Foster care: No Household members: none Housing: apartment Number of Children: 2 number of grandchildren: 1 Communication Needs: Corrective Lenses Education Level: college Do you need help understanding health information?: Always current occupation: Unemployed/Leave of absence Sexually active: No Do you think of yourself as: Decline to provide Current gender identity: male What type of physical activity do you participate in: other Details: weight lifting Frequency: 3-4 times per week Magalie/Temple: Church Seatbelt use: always Drive intox or ride w/intox 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
--- NOTE | 2025-06-12 16:46 | CMDISCH_ITS ---
Date of service: 06/12/25 Time of Service: 16:46 LACE Index Scoring Tool Questions: Length of Stay (in days): 1 Was the patient admitted via the E.D.?: Yes E.D. Visits: 13 Answers: Total Score: 8 Risk of Readmission: Low Risk Care Management Discharge Plan Reason for Hospitalization: Atypical chest pain Discharge Plan: Avery is discharged home via private vehicle with a friend. He will follow up with primary care and his discharge plan of care as discussed. No new services are ordered before discharge. Patient/Family Education Needs: Review discharge instructions and plan to follow up after discharge. Discuss ask me three. SDOH Health Related Social Needs: Health related social needs inadequate housing risk of homeless house/econ circumstance daily activities lonely/isolated Health related social needs details needs help apartme nt will raise rental fee. Health related social needs details: needs help apartment will raise rental fee.
== END 2025-06-12 17:18 | disposition home or self-care (01) ==
LOC: ER 23:56 → MS 06-12 00:30
PROVIDERS: Admitting Provider Family Medicine; Emergency Provider Student in an Organized Health Care Education/Training Program; PCP Family Medicine; Responsible Provider Nurse Practitioner Acute Care; Visit Provider Family Medicine
DX: R07.89 Other chest pain (principal); Z68.42 Body mass index [BMI] 45.0-49.9, adult; R60.0 Localized edema; I51.89 Other ill-defined heart diseases; I34.0 Nonrheumatic mitral (valve) insufficiency; E78.00 Pure hypercholesterolemia, unspecified; F25.1 Schizoaffective disorder, depressive type; G43.009 Migraine without aura, not intractable, without status migrainosus; K21.9 Gastro-esophageal reflux disease without esophagitis; F41.9 Anxiety disorder, unspecified; Z79.85 Long-term (current) use of injectable non-insulin antidiabetic drugs; E11.42 Type 2 diabetes mellitus with diabetic polyneuropathy; K02.9 Dental caries, unspecified; K44.9 Diaphragmatic hernia without obstruction or gangrene; D64.9 Anemia, unspecified; J30.9 Allergic rhinitis, unspecified; Z59.811 Housing instability, housed, with risk of homelessness; R45.89 Other symptoms and signs involving emotional state; E66.01 Morbid (severe) obesity due to excess calories
CPT/HCPCS: 00123; 36415; 80053; 83690; 85027; 87637; 93005; 96372; 99285; J1650; 71046; 83735; 83880; 84484; 85025; 85379; 85610; 85730; 93010; 93306; 99223; 99239; G0378; J1815; J3490

== ENCOUNTER 2025-06-14 04:51 | Emergency (ER) | payer MEDICAID, SELFPAY ==
[2025-06-14 04:47] VITALS: BP 171/85; PULSE 74; RESP 18; TEMP 37; O2SAT 95
--- NOTE | 2025-06-14 04:58 | W.ED.GENAD ---
Discharge Plan Disposition Patient Disposition: Home Condition: Good Discharge Details Clinical Impression: Tingling of left upper extremity Primary Care Provider: Brandon Foster ED Provider: Froilan Iraheta Home Meds and New Rx's Prescriptions: No Action gabapentin 300 mg capsule 300 mg PO QID bupropion HCl 75 mg tablet 150 mg PO DAILY Rx Instructions: administer 6 hours apart sumatriptan succinate 100 mg tablet See Rx Instructions PO .COMPLEX Qty: 9 5RF Rx Instructions: take 1 tab at onset of headache; if no relief, may repeat 1 tab after at least 2 hrs; max = 2 tabs/24 hrs PO Nurtec ODT 75 mg tablet,disintegrating 75 mg PO ONCE PRN (Reason: migraine headache) Qty: 8 5RF Rx Instructions: as a single dose; no more than 1 tab per day Emgality Pen 120 mg/mL pen injector 120 mg subcut QMONTH Qty: 1 11RF Claritin Liqui-Gel 10 MG capsule 1 cap PO DAILY Qty: 90 metformin 500 mg tablet 500 mg PO BID fluoxetine 40 mg capsule 80 mg PO DAILY multivitamin Tablet 1 tab PO DAILY clonazepam 0.5 mg tablet See Rx Instructions .ROUTE .COMPLEX Rx Instructions: 1 tab in AM, 1 tab at Noon and 2 tab QHS simvastatin 80 mg tablet 80 mg PO DAILY Patient Comments: Take 1 tablet by mouth once a day benztropine 0.5 MG tablet 0.5 mg PO BID aspirin,buffd-calcium carb-mag 325 MG tablet 325 mg PO DAILY lactulose 10 gram/15 mL solution 20 g PO DIRECTED PRN Patient Comments: TAKE ONE TO TWO TABLESPOONS BY MOUTH NEEDED WHEN 3 DAYS PASS WITHOUT BOWEL MOVEMENT albuterol sulfate 90 mcg/actuation aerosol powdr breath activated 2 inh IH Q6H PRN (Reason: shortness of breath or wheezing) Qty: 1 0RF atenolol 25 mg tablet 75 mg PO DAILY Patient Comments: Take 3 tablet by mouth once a day Invega Sustenna 117 mg/0.75 mL syringe 117 mg IM Q30D divalproex [Depakote ER] 500 mg tablet extended release 24 hr 500 mg PO BID omeprazole 40 mg capsule,delayed release(DR/EC) 40 mg PO DAILY Patient Comments: TAKE 1 CAPSULE BY MOUTH DAILY FOR HEARTBURN Discharge Instructions Instructions: Paresthesia (DC) Additional Instructions: At this time your exam appears to be inconsistent with stroke, trauma, or cardiac abnormality. Your symptoms appear consistent with mild paresthesias secondary to compression on your brachial plexus from a spasm scalene muscle in your left neck. Please perform the stretching exercises that I demonstrated to you. Take the cyclobenzaprine only when you get home. The medication can make you quite sleepy. Please do not drive, operate any heavy machinery, take a bath, or use firearms or perform any dangerous activity that would become hazardous if you fell asleep or got dizzy. If you notice any worsening of your symptoms, or any new symptoms such as vomiting, diarrhea, fever, chills, shortness of breath, chest pain, numbness, weakness, or fainting , please return immediately to the emergency department for reevaluation. Please follow up with your primary care provider as soon as possible for reassessment and reevaluation. As always, it was a pleasure participating in your medical care today. Referrals: Brandon Foster [Primary Care Provider, Medicine] HPI HPI Narrative: This is a 60-year-old male with a past medical history of anxiety, depression, type 2 diabetes, high cholesterol, obesity, schizoaffective disorder, hypothyroidism, chronic headaches, chronic recurrent visits to the emergency department, including a recent admission 2 to 3 days ago for equivocal chest pain, which resulted in negative serial troponins, negative echo, with subsequent discharge in the last day or so, who presents today for tingling in his left shoulder and arm. He contacted EMS this morning around 4 AM for symptoms. He states that he awoke from a nap and noticed the tingling. He has been sleeping in an atypical position in a broken recliner chair because he is waiting for a specialized bed. He denies any chest pain, chest tightness, trauma, falls, headache, fever, chills, arm pain, or other complaints. Related Data Home Medications ?Medication ?Instructions ?Recorded ?Confirmed loratadine 10 mg capsule (Claritin 1 cap PO DAILY #90 tabs 12/16/14 06/11/25 Liqui-Gel) aspirin,buffered (calcium 325 mg PO DAILY 11/18/16 06/11/25 carbonate-magnesium) 325 mg tablet benztropine 0.5 mg tablet 0.5 mg PO BID 11/18/16 06/11/25 lactulose 10 gram/15 mL oral 20 g PO DIRECTED PRN 10/03/20 06/11/25 solution albuterol sulfate 90 mcg/actuation 2 inh inhalation Q6H PRN shortness 12/15/20 06/11/25 breath activated powder inhaler of breath or wheezing #1 ea multivitamin 1 tab PO DAILY 01/26/21 06/11/25 clonazepam 0.5 mg tablet See Rx Instructions .Route .COMPLEX 03/04/23 06/11/25 gabapentin 300 mg capsule 300 mg PO QID 03/27/23 06/11/25 atenolol 25 mg tablet 75 mg PO DAILY 01/31/24 06/11/25 divalproex 500 mg tablet,extended 500 mg PO BID 01/31/24 06/12/25 release 24 hr (Depakote ER) omeprazole 40 mg capsule,delayed 40 mg PO DAILY 01/31/24 06/11/25 release paliperidone palmitate 117 mg/0.75 117 mg IM Q30D 01/31/24 06/11/25 mL intramuscular syringe ([employer] Alchimer) simvastatin 80 mg tablet 80 mg PO DAILY 03/08/24 06/11/25 bupropion HCl 75 mg tablet 150 mg PO DAILY 08/04/24 06/11/25 galcanezumab-gnlm 120 mg/mL 120 mg subcut QMONTH #1 mL 08/04/24 06/11/25 subcutaneous pen injector (Emgality Pen) rimegepant 75 mg disintegrating 75 mg PO ONCE PRN migraine 08/04/24 06/11/25 tablet (Nurtec ODT) headache #8 tabs sumatriptan succinate 100 mg tablet See Rx Instructions PO .COMPLEX #9 08/04/24 06/11/25 tabs fluoxetine 40 mg capsule 80 mg PO DAILY 09/24/24 06/11/25 metformin 500 mg tablet 500 mg PO BID 09/24/24 06/11/25 Previous Rx's ?Medication ?Instructions ?Recorded albuterol sulfate 90 mcg/actuation 2 inh inhalation Q6H PRN shortness 12/15/20 breath activated powder inhaler of breath or wheezing #1 ea galcanezumab-gnlm 120 mg/mL 120 mg subcut QMONTH #1 mL 08/04/24 subcutaneous pen injector (Emgality Pen) rimegepant 75 mg disintegrating 75 mg PO ONCE PRN migraine 08/04/24 tablet (Nurtec ODT) headache #8 tabs sumatriptan succinate 100 mg tablet See Rx Instructions PO .COMPLEX #9 08/04/24 tabs Allergies Allergy/AdvReac Type Severity Reaction Status Date / Time buspirone Allergy Other (See Verified 06/11/25 18:30 Comment) paliperidone Allergy Other (See Verified 06/11/25 18:30 Comment) paroxetine HCl (From Paxil) Allergy Other (See Verified 06/11/25 18:30 Comment) sertraline Allergy Other (See Verified 06/11/25 18:30 Comment) ziprasidone (From Geodon) Allergy Other (See Verified 06/11/25 18:30 Comment) aripiprazole (From Abilify) AdvReac Intermediate INVOLUNTARY Verified 06/11/25 18:30 MUSCLE MOVEMENTS mirtazapine AdvReac Intermediate INVOLUNTARY Verified 06/11/25 18:30 MUSCLE MOVEMENTS risperidone AdvReac Intermediate INVOLUNTARY Verified 06/11/25 18:30 MUSCLE MOVEMENTS enviornmental Allergy Mild Wheezing Uncoded 06/11/25 18:30 General Stated Complaint: Orthopedic CARLOS: 3 Exam Narrative Exam Narrative: 1.Const: Well-nourished, Well-developed, appearing stated age 2.Eyes: PERRL, no conjunctival injection, and symmetrical lids. 3.ENT: Atraumatic external nose and ears. Moist MM. Neck: Symmetric, trachea midline, No thyromegaly. 4.CVS: +S1/S2, Peripheral pulses 2+ and equal in all extremities. Brisk capillary refill in all extremities. 5.RESP: Unlabored respiratory effort. Clear to auscultation bilaterally. No wheezes rales or rhonchi 6.GI: Soft, Nontender/Nondistended, No hepatosplenomegaly. No guarding or rebound. 7.MSK: Normocephalic/Atraumatic, Extremities w/o deformity or ttp No cyanosis or clubbing, Normal movement of all extremities 8.Skin: Warm, Dry. No rashes or lesions. 9.Neuro: marketing finance manager II-XII grossly intact. Sensation grossly intact, no focal neurologic deficits. All 6 cardinal planes of vision are fully intact. No evidence of rotatory or vertical nystagmus. The patient demonstrated a normal [id number], good dexterity. There was no evidence of dysdiadochokinesia. Patient was able to ambulate without difficulty. There was no wide-based gait. Sensation was intact bilaterally as well as muscle strength bilaterally for all extremities. Patient was able to verbalize butter cup with no slurring, or miss pronunciation. 10.Psych: (AAO) x3. Appropriate mood and affect Course Vital Signs Vital signs: Vital Signs Temperature 37 C 06/14/25 04:47 Pulse 74 06/14/25 04:47 Respiratory Rate 18 06/14/25 04:47 Blood Pressure 171/85 H 06/14/25 04:47 Pulse Oximetry 95 06/14/25 04:47 Temperature 37 C 06/14/25 04:47 Temperature Source Temporal Artery Scan 06/14/25 04:47 Pulse 74 06/14/25 04:47 Respiratory Rate 18 06/14/25 04:47 Blood Pressure 171/85 H 06/14/25 04:47 Pulse Oximetry 95 06/14/25 04:47 Pain Level 3 06/14/25 04:47 Medical Decision Making This is a 60-year-old male with a past medical history of anxiety, depression, type 2 diabetes, high cholesterol, obesity, schizoaffective disorder, hypothyroidism, chronic headaches, chronic recurrent visits to the emergency department, including a recent admission 2 to 3 days ago for equivocal chest pain, which resulted in negative serial troponins, negative echo, with subsequent discharge in the last day or so, who presents today for tingling in his left shoulder and arm. He contacted EMS this morning around 4 AM for symptoms. He states that he awoke from a nap and noticed the tingling. He has been sleeping in an atypical position in a broken recliner chair because he is waiting for a specialized bed. He denies any chest pain, chest tightness, trauma, falls, headache, fever, chills, arm pain, or other complaints. Exam demonstrates a well-appearing male, no neurologic deficits on exam. He has normal sensation throughout his upper and lower extremities. He has a bit of a spasm around his left scalene neck musculature. Suspect this may be causing some mild neuralgia, however his exam does not show any evidence to suggest stroke, thoracic outlet syndrome, he has no bruit to suggest carotid artery disease. He has equal pulses with no evidence to suggest dissection. Patient otherwise looks clinically well. Will recommend stretching exercises for his neck, will give him some cyclobenzaprine for home use for breakthrough spasm. Discussed red flags for which to return. I have extensively reviewed the treatment plan and discharge instructions with the patient. I have addressed all patient concerns at this time. The patient was made aware of what symptoms to monitor for that would warrant a return to the emergency department. Discussed the plan with the patient, they demonstrate verbal understanding and agreement with our assessment and plan at this time. The documentation in this chart was dictated using Clerk dictation software. Please excuse any dictation errors. Quality:SDOH Health Related Social Needs: Health related social needs inadequate housing risk of homeless food insecurity house/econ circumstance daily activities lonely/isolated Health related social needs details needs help apartment will raise rental fee. PFSH All Active Problems (Updated 06/14/25 @ 05:00 by Froilan Iraheta DO) Tingling of left upper extremity (Acute) Chest pain (Acute) Dental caries (Acute) Nicotine dependence (Acute) Dyspnea on exertion (Acute) Depression (Acute 10/02/14) Chronic headache (Acute) Migraine headache without aura (Chronic) Migraine (Chronic) Poor dentition (Acute) Tobacco use disorder (Chronic) started 2013 1.5 ppd, pipe 1-7/week, QUIT LATE OCT 2021 Allergic rhinitis (Chronic) lortadine Hiatal hernia (Chronic) protonix not effective, nexium works better 02/12/18 Anemia (Chronic) Broken teeth (Chronic) Drug-seeking behavior (Chronic ~09/20/21) Requests Ritalin from providers Medication overuse headache (Acute) Medical History Hypercholesterolemia (09/07/14) pt insists on lipitor 80 mg due to family hx Obesity BMI 52 Hypertension pt requests brand name Tenormin vs atenolol 04/02/18 GERD (gastroesophageal reflux disease) (09/07/14) Diabetes mellitus type 2 in obese (09/09/14) Hypothyroidism (acquired) (09/07/14) Schizoaffective disorder (09/07/14) FREDDIE Thakkar 09/2014- [facility] inpatient Trigeminal neuralgia Anxiety Mitral valve prolapse Peripheral neuropathy Surgical History No significant past surgical history Family History Father Heart disease [place] Social History Smoking/Tobacco Use Status: Former Tobacco Use Smoking risk assessment performed?: Yes Alcohol Intake: never Drug use: Never Substance use type: does not use Adopted: No Caregiver/Support person: No Foster care: No Household members: none Housing: apartment Number of Children: 2 number of grandchildren: 1 Communication Needs: Corrective Lenses Education Level: college Do you need help understanding health information?: Always current occupation: Unemployed/Leave of absence Sexually active: No Do you think of yourself as: Decline to provide Current gender identity: male What type of physical activity do you participate in: other Details: weight lifting Frequency: 3-4 times per week Magalie/Presybeterian: Hindu Seatbelt use: always Drive intox or ride w/intox route sales 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
[2025-06-14] MEDS: Ondansetron O.D.T. 4 MG TABEF PO (05:12)
[2025-06-14] MEDS: Cyclobenzaprine 10 MG TAB, 3 TABS/BTL PO (05:15)
[2025-06-14 05:28] VITALS: BP 155/70; PULSE 76; RESP 18; O2SAT 93
--- NOTE | 2025-06-14 05:29 | NUR.NOTE ---
when DCing PT. PT states that he hasn't had his medication that is delivered on fridays due to being DCed from the hospital on tuesday 06/12 and the meds did not get delivered to his house by [facility]. [facility] was called and they stated that they usually deliver his medication to his mailbox. PT stated that he has not checked his mailbox to see if his medication was delivered there. PT is to check his mailbox when he gets home to see if his medication was delivered there. Nursing Note:
== END 2025-06-14 05:33 | disposition home or self-care (01) ==
LOC: ER 05:04
PROVIDERS: Emergency Provider Student in an Organized Health Care Education/Training Program; PCP Family Medicine
DX: M25.512 Pain in left shoulder (principal); Z59.811 Housing instability, housed, with risk of homelessness; Z59.41 Food insecurity
CPT/HCPCS: 99283 ×2

== ENCOUNTER 2025-06-19 04:14 | Emergency (ER) | payer MEDICAID, SELFPAY ==
[2025-06-19] VITALS (26 sets, daily range): BP systolic 123–175; BP diastolic 62–81; PULSE 61–68; RESP 10–19; TEMP 36.2–36.9; O2SAT 94–99
--- NOTE | 2025-06-19 03:45 | RT.EKG_ITS ---
APPROVED REPORT Exam: Resting ECG Reason for Exam: Chest Pain Patient Location: E HR:69 bpm ECG Measurements Heart Rate 69 AXIS WA 72 P 163 QRSd 102 QRS 5 QT 398 T 96 QTc 427 Conclusion Sinus or ectopic atrial rhythm...P axis (-45,135) Nonspecific T abnormalities, lateral leads...T <-0.10mV, I aVL V5 V6 no ST segment or T wave abnormalities to suggest occluisve DC
--- NOTE | 2025-06-19 04:00 | DI.RAD_ITS ---
Exam(s) XR CHEST 2V PA LATERAL EXAM: XR CHEST 2V PA LATERAL CLINICAL HISTORY: Chest pain TECHNIQUE: 2D digital imaging was performed. Two views. COMPARISON: CR XR CHEST 2V PA LATERAL from 06/11/2025 FINDINGS: HEART: Normal size. Aorta: Not dilated. PULMONARY VASCULATURE: Normal. MEDIASTINUM: Unremarkable. LUNGS: The lungs are suboptimally inflated on the lateral view. There is a question of an area of increased density seen posteriorly on the lateral view may represent a developing pneumonia versus atelectasis. PLEURAL SPACE: No pleural effusion or pneumothorax. BONE:Unremarkable for age. SOFT TISSUES: Unremarkable. IMPRESSION: Question of posterior infiltrate. The preliminary [facility] report was reviewed. DATA REPOSITORY: RADIATION DOSE DELIVERED:
--- NOTE | 2025-06-19 04:11 | ED.GENADUL_ITS ---
Discharge Plan Disposition Patient Disposition: Home Condition: Good Discharge Details Clinical Impression: Chest pain Primary Care Provider: Brandon Foster ED Provider: Sparkle Slater Home Meds and New Rx's Prescriptions: Continued gabapentin 300 mg capsule 300 mg PO QID bupropion HCl 75 mg tablet 150 mg PO DAILY Rx Instructions: administer 6 hours apart sumatriptan succinate 100 mg tablet See Rx Instructions PO .COMPLEX Qty: 9 5RF Rx Instructions: take 1 tab at onset of headache; if no relief, may repeat 1 tab after at least 2 hrs; max = 2 tabs/24 hrs PO Nurtec ODT 75 mg tablet,disintegrating 75 mg PO ONCE PRN (Reason: migraine headache) Qty: 8 5RF Rx Instructions: as a single dose; no more than 1 tab per day Emgality Pen 120 mg/mL pen injector 120 mg subcut QMONTH Qty: 1 11RF Claritin Liqui-Gel 10 MG capsule 1 cap PO DAILY Qty: 90 metformin 500 mg tablet 500 mg PO BID fluoxetine 40 mg capsule 80 mg PO DAILY multivitamin Tablet 1 tab PO DAILY clonazepam 0.5 mg tablet See Rx Instructions .ROUTE .COMPLEX Rx Instructions: 1 tab in AM, 1 tab at Noon and 2 tab QHS simvastatin 80 mg tablet 80 mg PO DAILY Patient Comments: Take 1 tablet by mouth once a day benztropine 0.5 MG tablet 0.5 mg PO BID aspirin,buffd-calcium carb-mag 325 MG tablet 325 mg PO DAILY lactulose 10 gram/15 mL solution 20 g PO DIRECTED PRN Patient Comments: TAKE ONE TO TWO TABLESPOONS BY MOUTH NEEDED WHEN 3 DAYS PASS WITHOUT BOWEL MOVEMENT albuterol sulfate 90 mcg/actuation aerosol powdr breath activated 2 inh IH Q6H PRN (Reason: shortness of breath or wheezing) Qty: 1 0RF atenolol 25 mg tablet 75 mg PO DAILY Patient Comments: Take 3 tablet by mouth once a day Invega Sustenna 117 mg/0.75 mL syringe 117 mg IM Q30D divalproex [Depakote ER] 500 mg tablet extended release 24 hr 500 mg PO BID omeprazole 40 mg capsule,delayed release(DR/EC) 40 mg PO DAILY Patient Comments: TAKE 1 CAPSULE BY MOUTH DAILY FOR HEARTBURN Discharge Instructions Instructions: Chest Pain, Adult ED Additional Instructions: Tylenol over the counter for pain; follow the directions on the bottle. Try to avoid sleeping in your recliner as this may be provoking your pain. Call your primary care doctor in the morning to schedule an appointment for within the next 72 hours to followup on your visit here. Return to the emergency department for new or worsening symptoms including new/different/worse pain, difficulty breathing, feeling like you are going to pass out, or if you have any other concerns. HPI General Mode of arrival: EMS . Date/Time Provider Initiated Documentation: 06/19/25 04:20 . Limitations to Documentation: no limitations . Information obtained by: patient, EMS and old records reviewed (ED visits and hospital admission 06/11, 06/14) . HPI Narrative: 60yo M with hx HTN, HLD, T2DM, GERD, anxiety, depression, schizoaffective, hypothyroid, presenting via EMS for chest pain. Started about one hour prior to arrival while he was sleeping in his recliner, dull left sided chest pain radiating into his left shoulder. No numbness or tingling. Does seem worse with inspiration and movement. Not worse with exertion. No shortness of breath, lightheadedness, syncope, or LE edema. No recent trauma or injury or unusual exertion. Similar pain two days ago at the same time of day also while sleeping in his recliner which is broken and he ends up leaning on a hard surface on his left side while sleeping. At that visit he also had paresthesias; ED workup reassuring at that time and thought to be possible 2/t muscle spasm/brachial plexus compression and he was discharged with cyclobenzaprine. Also had hospital admission on 06/11 for chest pain with negative troponins and normal echo. Related Data Home Medications ?Medication ?Instructions ?Recorded ?Confirmed loratadine 10 mg capsule (Claritin 1 cap PO DAILY #90 tabs 12/16/14 06/19/25 Liqui-Gel) aspirin,buffered (calcium 325 mg PO DAILY 11/18/16 carbonate-magnesium) 325 mg tablet benztropine 0.5 mg tablet 0.5 mg PO BID 11/18/1606/19 lactulose 10 gram/15 mL oral 20 g PO DIRECTED PRN 1 12/03/19 06/19/25 solution albuterol sulfate 90 mcg/actuation 2 inh inhalation Q6 H PRN shortness 12/15/20 06/19/25 breath activated powder inhaler of breath or wheezing #1 ea multivitamin 1 tab PO DAILY 01/26/2106/05 clonazepam 0.5 mg tablet See Rx Instructions .Route . COMPLEX 03/04/23 06/19/25 gabapentin 300 mg capsule 300 mg PO QID 03/27/2306/19 atenolol 25 mg tablet 75 mg PO DAILY 01/31/2406/05 divalproex 500 mg tablet,extended 500 mg PO BID 06/19/25 release 24 hr (Depakote ER) omeprazole 40 mg capsule,delayed 40 mg PO DAILY 06/19/25 release paliperidone palmitate 117 mg/0.75 117 mg IM Q30D 01/0406/19/25 mL intramuscular syringe (Invega Sustenna) simvastatin 80 mg tablet 80 mg PO DAILY 03/08/2406/05 bupropion HCl 75 mg tablet 150 mg PO DAILY 08/04/24 galcanezumab-gnlm 120 mg/mL 120 mg subcut QMONTH #1 mL 08/04/24 06/19/25 subcutaneous pen injector (Emgality Pen) rimegepant 75 mg disintegrating 75 mg PO ONCE PRN migr jasper 08/04/24 06/19/25 tablet (Nurtec ODT) headache #8 tabs sumatriptan succinate 100 mg tablet See Rx Instruction s PO .COMPLEX #9 08/04/24 06/19/25 tabs fluoxetine 40 mg capsule 80 mg PO DAILY 09/24/2406/05 metformin 500 mg tablet 500 mg PO BID 09/24/2406/19 Previous Rx's ?Medication ?Instructions ?Recorded albuterol sulfate 90 mcg/actuation 2 inh inhalation Q6 H PRN shortness 12/15/20 breath activated powder inhaler of breath or wheezing #1 ea galcanezumab-gnlm 120 mg/mL 120 mg subcut QMONTH #1 mL 08/04/24 subcutaneous pen injector (Emgality Pen) rimegepant 75 mg disintegrating 75 mg PO ONCE PRN migr jasper 08/04/24 tablet (Nurtec ODT) headache #8 tabs sumatriptan succinate 100 mg tablet See Rx Instruction s PO .COMPLEX #9 08/04/24 tabs Allergies Allergy/AdvReac Type Severity Reaction Status Date / Time buspirone Allergy Other (See Verified 06/19/25 04:11 Comment) paliperidone Allergy Other (See Verified 06/19/25 04:11 Comment) paroxetine HCl (From Paxil) Allergy Other (See Verified 06/19/25 04:11 Comment) sertraline Allergy Other (See Verified 06/19/25 04:11 Comment) ziprasidone (From Geodon) Allergy Other (See Verified 06/19/25 04:11 Comment) aripiprazole (From Abilify) AdvReac Intermediate INVOLUNTARY Verified 06/19/25 04:11 MUSCLE MOVEMENTS mirtazapine AdvReac Intermediate INVOLUNTARY Verified 06/19/25 04:11 MUSCLE MOVEMENTS risperidone AdvReac Intermediate INVOLUNTARY Verified 06/19/25 04:11 MUSCLE MOVEMENTS enviornmental Allergy Mild Wheezing Uncoded 06/19/25 04:11 General Stated Complaint: Chest Pain CARLOS: 3 Review of Systems Narrative: see HPI Exam Narrative Exam Narrative: General: Alert, well appearing, well nourished, in no acute distress. Head: Normocephalic, atraumatic Neck: Trachea midline, ?Neck supple. ENT: ?MMM.? Cardiac: ?RRR, no murmurs appreciated Resp: No respiratory distress. CTAB. Chest: Reproducible tenderness to left lateral chest wall. No rash. Abd: ?Soft, non-distended, nontender : ?No suprapubic tenderness. Extremities: ?No deformities.? No peripheral edema. Neurologic: GCS 15. ? Moves all extremities freely against gravity Course Vital Signs Vital signs: Vital Signs Pulse 68 06/19/25 04:07 Respiratory Rate 18 06/19/25 04:07 Pulse Oximetry 97 06/19/25 04:07 Pulse 68 06/19/25 04:07 Respiratory Rate 18 06/19/25 04:07 Blood Pressure Position Sitting 06/19/25 04:07 Pulse Oximetry 97 06/19/25 04:07 Oxygen Delivery Method Room Air 06/19/25 04:07 Oxygen Flow Rate 0 06/19/25 04:07 Medical Decision Making 60yo M with hx HTN, HLD, T2DM, GERD, anxiety, depression, schizoaffective, hypothyroid, presenting via EMS for chest pain. No prior cardiac history though does have frequent ED visits for chest pain most recently 06/01, 06/11, 06/14 (hosptial admission 06/11 with troponins trended and normal and normaml echocardiogram). Tonight pain started about one hour prior to arrival while he was sleeping in his recliner, dull left sided chest pain radiating into his left shoulder. Vital signs reassuring on arrival. Some reproducible left chest wall tenderness on exam. Took 325 of ASA prior to arrival. Strongly suspect MSK etiology; will give tyelnol here while awaiting results of workup for emergent causes. -EKG SR, appropriate intervals, no ST segment or T wave abnormalities to suggest occlusive PA, no concerning changes from prior 06/12/25. -CXR independently reviewed; no focal pneumonia or pneumothorax or displaced rib fracture on my view. -Labs reviewed as below, CBC reassuring with mild anemia and thrombocytopenia at baseline on [facility] record review, CMP with mild hyponatremia at 132 (appears chronic on [facility] record review 129-139) and no actionable abnormalities, Mg borderline low (oral replacement ordered), lipase not suggestive of pancreatitis, BNP not suggest of heart failure, coags normal, dimer normal (would not further pursue pulmonary embolism or aortic dissection with CT imaging), initial troponin 5, reassuring. HEART score 3 (age, RF), low risk. Repeat troponin 4, reassuring. On reassessment he reports his pain has improved but is still present; will add single dose of IV toradol while awaiting radiology read on CXR. Would not further trend troponins or admit. Radiology read with Left retrocardiac opacity. Consider atelectasis, pneumonia.. Clinical picture not consistent with pneumonia with no fever, cough, shortness of breath, or other respiratory symptoms; favor atelectasis. On reassessment pain much improved. Would benefit from close outpatient PCP followup given frequent ED visits. Advised tylenol at home for likely MSK pain and PCP followup within 72 hours. Discharged home; discharge instructions and return precuations were reviewed with patient who verbalized understanding. All questions were answered and he is in full agremeent with the plan. Lab Data Lab results reviewed: Yes I reviewed the patient's lab results. Labs: Laboratory Tests Range/Units 06/19/25 06/19/25 04:18 05:11 WBC (4.4-10.8) 10^3/uL 4.62 RBC (4.36-5.78) 10^6/uL 3.46 L Hgb (13.5-17.5) g/dL 10.6 L Hct (40.0-50.0) % 31.2 L MCV (80-95) fL 90 MCH (27.0-33.0) pg 30.6 MCHC (32.0-36.0) % 34.0 RDW (11.8-14.1) % 12.3 Plt Count (130-400) 10^3/uL 122 L MPV (8.0-11.0) fL 8.5 Immature Gran % % 0.2 Neutrophils % % 53.7 Lymphocytes % % 32.7 Monocytes % % 8.7 Eosinophils % % 4.3 Basophils % % 0.4 Nucleated RBC % (0.0-0.3) % 0.0 Absolute Neutrophils (1.2-6.7) 10^3/uL 2.48 Absolute Lymphocytes (1.2-3.4) 10^3/uL 1.51 Absolute Monocytes (0.1-0.8) 10^3/uL 0.40 Absolute Eosinophils (0.0-0.7) 10^3/uL 0.20 Absolute Basophils (0.0-0.2) 10^3/uL 0.02 PT (9.1-11.1) sec 10.2 INR (0.9-1.1) 1.0 APTT (20.6-30.2) sec 24.1 D-Dimer (<500) ng/mlFEU 403 Sodium (136-145) mmol/L 132 L Potassium (3.5-5.1) mmol/L 4.2 Chloride (98-107) mmol/L 96 L Carbon Dioxide (21.0-32.0) mmol/L 30.0 Anion Gap (3-11) mmol/L 6.0 BUN (7-18) mg/dL 12 Creatinine (0.70-1.30) mg/dL 0.8 Est GFR (CKD-EPI 2020) (mL/min/1.73m2) 101.32 Glucose (74-106) mg/dL 152 H Calcium (8.5-10.1) mg/dL 8.1 L Magnesium (1.8-2.4) mg/dL 1.7 L Total Bilirubin (0.2-1.0) mg/dL 0.3 AST (15-37) U/L 14 L ALT (16-63) U/L 28 Alkaline Phosphatase (46-116) U/L 60 Troponin I (<or=76) ng/L 5 4 NT-Pro-B Natriuret Pep (<300) pg/mL 96 Total Protein (6.4-8.2) g/dL 7.1 Albumin (3.4-5.0) g/dL 3.2 L Lipase (<78) U/L 11 Quality:SDOH Health Related Social Needs: Health related social needs inadequate housing risk of homeless food insecurity house/econ circumstance daily activities lonely/isolated Health related social needs details needs help apartme nt will raise rental fee. PFSH All Active Problems (Updated 06/19/25 @ 05:55 by Sparkle Slater MD) Tingling of left upper extremity (Acute) Chest pain (Acute) Dental caries (Acute) Nicotine dependence (Acute) Dyspnea on exertion (Acute) Depression (Acute 10/02/14) Chronic headache (Acute) Migraine headache without aura (Chronic) Migraine (Chronic) Poor dentition (Acute) Tobacco use disorder (Chronic) started 2013 1.5 ppd, pipe 1-7/week, QUIT LATE OCT 2021 Allergic rhinitis (Chronic) lortadine Hiatal hernia (Chronic) protonix not effective, nexium works better 02/12/18 Anemia (Chronic) Broken teeth (Chronic) Drug-seeking behavior (Chronic ~09/20/21) Requests Ritalin from providers Medication overuse headache (Acute) Medical History Hypercholesterolemia (09/07/14) pt insists on lipitor 80 mg due to family hx Obesity BMI 52 Hypertension pt requests brand name Tenormin vs atenolol 04/02/18 GERD (gastroesophageal reflux disease) (09/07/14) Diabetes mellitus type 2 in obese (09/09/14) Hypothyroidism (acquired) (09/07/14) Schizoaffective disorder (09/07/14) Rebekah Mariscal [facility] 09/2014- [facility] inpatient Trigeminal neuralgia Anxiety Mitral valve prolapse Peripheral neuropathy Surgical History No significant past surgical history Family History Father Heart disease PA Social History Smoking/Tobacco Use Status: Former Tobacco Use Smoking risk assessment performed?: Yes Alcohol Intake: never Drug use: Never Substance use type: does not use Adopted: No Caregiver/Support person: No Foster care: No Household members: none Housing: apartment Number of Children: 2 number of grandchildren: 1 Communication Needs: Corrective Lenses Education Level: college Do you need help understanding health information?: Always current occupation: Unemployed/Leave of absence Sexually active: No Do you think of yourself as: Decline to provide Current gender identity: male What type of physical activity do you participate in: other Details: weight lifting Frequency: 3-4 times per week Magalie/[employer]ist: Ten[employer]ism Seatbelt use: always Drive intox or ride w/intox 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
[2025-06-19] MEDS: Acetaminophen 500 MG TAB 1000 MG PO (04:19)
[2025-06-19 04:29] LABS: Abs Immature Grans 0.01 10^3/uL (0.0-0.06); HCT 31.2 % (40.0-50.0); HGB 10.6 g/dL (13.5-17.5); Immature Grans % 0.2 %; MCH 30.6 pg (27.0-33.0); MCHC 34.0 % (32.0-36.0); MCV 90 fL (80-95); MPV 8.5 fL (8.0-11.0); Platelet Count 122 10^3/uL (130-400); RBC 3.46 10^6/uL (4.36-5.78); RDW 12.3 % (11.8-14.1); RDW-SD 40.5 fL; WBC 4.62 10^3/uL (4.4-10.8)
[2025-06-19 04:43] LABS: INR 1.0 (0.9-1.1); PTT Activated 24.1 sec (20.6-30.2); Prothrombin Time 10.2 sec (9.1-11.1)
[2025-06-19 04:54] LABS: D-Dimer 403 ng/mlFEU (<500)
[2025-06-19 04:57] LABS: ALT 28 U/L (16-63); AST 14 U/L (15-37); Albumin 3.2 g/dL (3.4-5.0); Alkaline Phosphatase 60 U/L (46-116); Anion Gap 6.0 mmol/L (3-11); BUN 12 mg/dL (7-18); Bilirubin, Total 0.3 mg/dL (0.2-1.0); CO2 30.0 mmol/L (21.0-32.0); Calcium 8.1 mg/dL (8.5-10.1); Chloride 96 mmol/L (98-107); Estimated GFR 101.32 (mL/min/1.73m2); Glucose 152 mg/dL (74-106); Lipase 11 U/L (<78); Magnesium 1.7 mg/dL (1.8-2.4); NT-proBNP 96 pg/mL (<300); Potassium 4.2 mmol/L (3.5-5.1); Sodium 132 mmol/L (136-145); Total Protein 7.1 g/dL (6.4-8.2); Troponin I 5 ng/L (<or=76)
[2025-06-19 05:41] LABS: Troponin I 4 ng/L (<or=76)
[2025-06-19] MEDS: Magnesium Oxide 400 MG TAB PO (05:50)
--- NOTE | 2025-06-19 06:00 | DI.VRAD_ITS ---
PROCEDURE INFORMATION: Exam: XR Chest Exam date and time: 06/19/2025 4:39 AM Age: 60 years old Clinical indication: Chest pressure; Chest pain TECHNIQUE: Imaging protocol: Radiologic exam of the chest. Views: 2 views. COMPARISON: CR XR CHEST 2V PA LATERAL 06/11/2025 7:01 PM FINDINGS: Lungs: Ill-defined left retrocardiac opacity. Pleural spaces: No large pleural effusion seen. Heart/Mediastinum: No cardiomegaly. Bones/joints: No acute abnormality. IMPRESSION: Left retrocardiac opacity. Consider atelectasis, pneumonia. Follow-up as clinically warranted. Dictated and Authenticated by: Johanny Del Rio MD. Orderin Bryon Villagran MD
[2025-06-19] MEDS: Ketorolac 15 MG/ML VIAL IVP (06:05)
== END 2025-06-19 06:27 | disposition home or self-care (01) ==
PROVIDERS: Emergency Provider Student in an Organized Health Care Education/Training Program; PCP Family Medicine
DX: R07.9 Chest pain, unspecified (principal); Z59.41 Food insecurity; Z59.10 Inadequate housing, unspecified; Z59.811 Housing instability, housed, with risk of homelessness; Z60.8 Other problems related to social environment
CPT/HCPCS: 99283; 99284; 96374; 36415; 80053; 83690; 93005; 71046; 83735; 83880; 84484; 85025; 85379; 85610; 85730; 93010; J1885

== ENCOUNTER 2025-08-10 14:30 | Emergency (ER) | payer MEDICAID, SELFPAY ==
[2025-08-10] VITALS (22 sets, daily range): BP systolic 115; BP diastolic 71; PULSE 73–79; RESP 20; TEMP 36.9; O2SAT 94–97
--- NOTE | 2025-08-10 14:30 | RT.EKG_ITS ---
APPROVED REPORT Exam: Resting ECG Reason for Exam: anxiety Patient Location: E HR:75 bpm ECG Measurements Heart Rate 75 AXIS DC 171 P 42 QRSd 98 QRS 37 QT 393 T 81 QTc 440 Conclusion Sinus rhythm...normal P axis, V-rate 60- 99 No Occlusion TX
--- NOTE | 2025-08-10 14:40 | W.ED.GENAD ---
Discharge Plan Disposition Patient Disposition: Home Discharge Details Clinical Impression: Chest pain, unspecified Primary Care Provider: Brandon Foster ED Provider: Avery Causey [place] Meds and New Rx's Prescriptions: Continued gabapentin 300 mg capsule 300 mg PO QID bupropion HCl 75 mg tablet 150 mg PO DAILY Rx Instructions: administer 6 hours apart sumatriptan succinate 100 mg tablet See Rx Instructions PO .COMPLEX Qty: 9 5RF Rx Instructions: take 1 tab at onset of headache; if no relief, may repeat 1 tab after at least 2 hrs; max = 2 tabs/24 hrs PO Nurtec ODT 75 mg tablet,disintegrating 75 mg PO ONCE PRN (Reason: migraine headache) Qty: 8 5RF Rx Instructions: as a single dose; no more than 1 tab per day Emgality Pen 120 mg/mL pen injector 120 mg subcut QMONTH Qty: 1 11RF Claritin Liqui-Gel 10 MG capsule 1 cap PO DAILY Qty: 90 metformin 500 mg tablet 500 mg PO BID fluoxetine 40 mg capsule 80 mg PO DAILY multivitamin Tablet 1 tab PO DAILY clonazepam 0.5 mg tablet See Rx Instructions .ROUTE .COMPLEX Rx Instructions: 1 tab in AM, 1 tab at Noon and 2 tab QHS simvastatin 80 mg tablet 80 mg PO DAILY Patient Comments: Take 1 tablet by mouth once a day benztropine 0.5 MG tablet 0.5 mg PO BID aspirin,buffd-calcium carb-mag 325 MG tablet 325 mg PO DAILY lactulose 10 gram/15 mL solution 20 g PO DIRECTED PRN Patient Comments: TAKE ONE TO TWO TABLESPOONS BY MOUTH NEEDED WHEN 3 DAYS PASS WITHOUT BOWEL MOVEMENT albuterol sulfate 90 mcg/actuation aerosol powdr breath activated 2 inh IH Q6H PRN (Reason: shortness of breath or wheezing) Qty: 1 0RF atenolol 25 mg tablet 75 mg PO DAILY Patient Comments: Take 3 tablet by mouth once a day Invega Sustenna 117 mg/0.75 mL syringe 117 mg IM Q30D divalproex [Depakote ER] 500 mg tablet extended release 24 hr 500 mg PO BID omeprazole 40 mg capsule,delayed release(DR/EC) 40 mg PO DAILY Patient Comments: TAKE 1 CAPSULE BY MOUTH DAILY FOR HEARTBURN Discharge Instructions Additional Instructions: You were seen in the emergency department for your chest pain. Your blood work and your EKG showed no sign of heart attack. As we discussed if your pain returns or if you have any other concerns please return to the emergency department. Otherwise please follow-up with your primary care provider. Discharge Data Discharge Date/Time-TO BE ENTERED AT DEPARTURE: 08/10/25 17:00 HPI General Date/Time Provider Initiated Documentation: 08/10/25 14:38. HPI Narrative: MDM This is an overall well-appearing 60-year-old male with chest pain for which he will undergo evaluation with troponin testing in the setting of his nonischemic ECG. Patient had reported eye pain at triage but denied eye pain for me. He noted that he has not had any difficulty seeing so I did not feel that he required slit-lamp exam. No trauma to eye to suggest increased risk for retrobulbar hematoma. In the absence of trauma to eye I did not feel patient required fluorescein stain to assess for Sidel sign. He reports that he has had eye discomfort for the past approximately 8 months. He has been evaluated by ophthalmology for this complaint. Ophthalmology could not reportedly find any abnormalities. He has had no new trauma to his eyes. No difficulty seeing so is not suspicious for acute closed angle glaucoma. As result I did not feel patient required assessment of his intraocular pressures. In the absence of any visual changes I did not feel that patient was having CRAO. No cough nor abnormal lung sounds to suggest pneumonia. No tearing quality chest pain to suggest aortic dissection. No shortness of breath to suggest PE so I did not send a D-dimer. No rash to chest to suggest zoster. Patient is not a dialysis patient and so my suspicion is low for tamponade as he is not hypotensive nor tachycardic. Given his risk factors I consider whether or not to obtain further restratification. He had an echo performed earlier this year which showed a reassuring EF. His chest pain is quite atypical however he does have risk factors. Will touch base following evaluation to determine whether or not he would want to stay for stress testing later this week. 3:45 PM Reassuring initial troponin. CBC with mild normocytic anemia similar to prior. No leukocytosis. Persistent thrombocytopenia. Base metabolic panel showing very mild hyponatremia. No JESS. Mild hyperglycemia but no anion gap. Normal bicarbonate. HEART SCORE Chest pain Diagnostic Protocol: [-History/Physical/Gestalt: Slightly Suspicious (0)] [-EKG: Normal and/or unchanged from prior EKG (0)] [- AGE: 65 and older (+2)] [- RISK FACTORS: 3 or more risk factors and/or known CAD (+2)] [-TROPONIN: <= normal limit (0)] - TOTAL SCORE: 4 - Risk Factors: DM, current or recent smoker, HTN, HLD, family hx of CAD, obesity 4:42 PM Repeat reassuring troponin. I met with the patient. I explained that while he had no signs of acute injury to his heart now he was high risk given his history of tobacco use and his elevated BMI and history of diabetes. I offered hospitalization. Patient declined. I advised that he would likely benefit from a stress test to assess for any signs of ischemia. He declined. I advised PCP follow-up. I requested that the patient return if he developed recurrent chest pain or nausea or vomiting. HPI This is a patient with a history of high cholesterol and type 2 diabetes presenting with chest pain. He is accompanied by his comp field case manager. The patient began experiencing right-sided chest pain approximately 1 hour and 15 minutes prior to arrival, which has since improved. His breathing has also improved since his arrival at the clinic. The pain radiates slightly to the left side. He reports no vomiting or nausea. He has not experienced any recent fevers or coughs. He also reports no dysuria or abdominal pain. He does not require dialysis. He suspects the presence of a rash on his chest. He finds relief from his symptoms with Ativan, which he takes daily. Exam General: Well-appearing in no acute distress speaking in complete sentences. Elevated BMI. Head: Normocephalic, atraumatic. Eye: Extraocular eye movements intact. No conjunctival injection. No scleral icterus. Ear, nose, mouth, throat: Grossly normal inspection. Normal voice, handling secretions normally. Neck: Trachea midline. Cardiovascular: Well-perfused distal extremities. Regular rate and rhythm. Respiratory: Nonlabored respiration. Clear lungs bilaterally. Chest wall: No rash to chest. Gastrointestinal: Nondistended abdomen. Musculoskeletal: No edema. Moving all 4 extremities spontaneously. Skin: Normal for age and race, grossly normal temperature and turgor. No acute rash. Neurologic: Alert and appropriate, no apparent acute deficits. Psychiatric: Mood and manner are appropriate. Grooming and personal hygiene are appropriate. Related Data Home Medications ?Medication ?Instructions ?Recorded ?Confirmed loratadine 10 mg capsule (Claritin 1 cap PO DAILY #90 tabs 12/16/14 08/10/25 Liqui-Gel) aspirin,buffered (calcium 325 mg PO DAILY 11/18/16 08/10/25 carbonate-magnesium) 325 mg tablet benztropine 0.5 mg tablet 0.5 mg PO BID 11/18/16 08/10/25 lactulose 10 gram/15 mL oral 20 g PO DIRECTED PRN 10/03/20 08/10/25 solution albuterol sulfate 90 mcg/actuation 2 inh inhalation Q6H PRN shortness 12/15/20 08/10/25 breath activated powder inhaler of breath or wheezing #1 ea multivitamin 1 tab PO DAILY 01/26/21 08/10/25 clonazepam 0.5 mg tablet See Rx Instructions .Route .COMPLEX 03/04/23 08/10/25 gabapentin 300 mg capsule 300 mg PO QID 03/27/23 08/10/25 atenolol 25 mg tablet 75 mg PO DAILY 01/31/24 08/10/25 divalproex 500 mg tablet,extended 500 mg PO BID 01/31/24 08/10/25 release 24 hr (Depakote ER) omeprazole 40 mg capsule,delayed 40 mg PO DAILY 01/31/24 08/10/25 release paliperidone palmitate 117 mg/0.75 117 mg IM Q30D 01/31/24 08/10/25 mL intramuscular syringe (Invega Sustenna) simvastatin 80 mg tablet 80 mg PO DAILY 03/08/24 08/10/25 bupropion HCl 75 mg tablet 150 mg PO DAILY 08/04/24 08/10/25 galcanezumab-gnlm 120 mg/mL 120 mg subcut QMONTH #1 mL 08/04/24 08/10/25 subcutaneous pen injector (Emgality Pen) rimegepant 75 mg disintegrating 75 mg PO ONCE PRN migraine 08/04/24 08/10/25 tablet (Nurtec ODT) headache #8 tabs sumatriptan succinate 100 mg tablet See Rx Instructions PO .COMPLEX #9 08/04/24 08/10/25 tabs fluoxetine 40 mg capsule 80 mg PO DAILY 09/24/24 08/10/25 metformin 500 mg tablet 500 mg PO BID 09/24/24 08/10/25 Previous Rx's ?Medication ?Instructions ?Recorded albuterol sulfate 90 mcg/actuation 2 inh inhalation Q6H PRN shortness 12/15/20 breath activated powder inhaler of breath or wheezing #1 ea galcanezumab-gnlm 120 mg/mL 120 mg subcut QMONTH #1 mL 08/04/24 subcutaneous pen injector (Emgality Pen) rimegepant 75 mg disintegrating 75 mg PO ONCE PRN migraine 08/04/24 tablet (Nurtec ODT) headache #8 tabs sumatriptan succinate 100 mg tablet See Rx Instructions PO .COMPLEX #9 08/04/24 tabs Allergies Allergy/AdvReac Type Severity Reaction Status Date / Time buspirone Allergy Other (See Verified 08/10/25 14:36 Comment) paliperidone Allergy Other (See Verified 08/10/25 14:36 Comment) paroxetine HCl (From Paxil) Allergy Other (See Verified 08/10/25 14:36 Comment) sertraline Allergy Other (See Verified 08/10/25 14:36 Comment) ziprasidone (From Geodon) Allergy Other (See Verified 08/10/25 14:36 Comment) aripiprazole (From Abilify) AdvReac Intermediate INVOLUNTARY Verified 08/10/25 14:36 MUSCLE MOVEMENTS mirtazapine AdvReac Intermediate INVOLUNTARY Verified 08/10/25 14:36 MUSCLE MOVEMENTS risperidone AdvReac Intermediate INVOLUNTARY Verified 08/10/25 14:36 MUSCLE MOVEMENTS enviornmental Allergy Mild Wheezing Uncoded 08/10/25 14:36 General Stated Complaint: Chest Pain CARLOS: 3 Course Vital Signs Vital signs: Vital Signs Temperature 36.9 C 08/10/25 14:33 Pulse 79 08/10/25 14:33 Respiratory Rate 20 08/10/25 14:33 Blood Pressure 115/71 08/10/25 14:33 Pulse Oximetry 94 08/10/25 14:33 Temperature 36.9 C 08/10/25 14:33 Pulse 79 08/10/25 14:33 Respiratory Rate 20 08/10/25 14:33 Blood Pressure 115/71 08/10/25 14:33 Pulse Oximetry 94 08/10/25 14:33 Medical Decision Making Quality:SDOH Health Related Social Needs: Health related social needs inadequate housing risk of homeless food insecurity house/econ circumstance daily activities lonely/isolated Health related social needs details needs help apartment will raise rental fee. PFSH All Active Problems (Updated 08/10/25 @ 15:55 by Avery Causey MD) Chest pain, unspecified (Acute) Chest pain (Acute) Dental caries (Acute) Nicotine dependence (Acute) Dyspnea on exertion (Acute) Depression (Acute 10/02/14) Chronic headache (Acute) Migraine headache without aura (Chronic) Migraine (Chronic) Poor dentition (Acute) Tobacco use disorder (Chronic) started 2013 1.5 ppd, pipe 1-7/week, QUIT LATE OCT 2021 Allergic rhinitis (Chronic) lortadine Hiatal hernia (Chronic) protonix not effective, nexium works better 02/12/18 Anemia (Chronic) Broken teeth (Chronic) Drug-seeking behavior (Chronic ~09/20/21) Requests Ritalin from providers Medication overuse headache (Acute) Medical History Hypercholesterolemia (09/07/14) pt insists on lipitor 80 mg due to family hx Obesity BMI 52 Hypertension pt requests brand name Tenormin vs atenolol 04/02/18 GERD (gastroesophageal reflux disease) (09/07/14) Diabetes mellitus type 2 in obese (09/09/14) Hypothyroidism (acquired) (09/07/14) Schizoaffective disorder (09/07/14) Rebekah Mariscal [facility] 09/2014- [facility] inpatient Trigeminal neuralgia Anxiety Mitral valve prolapse Peripheral neuropathy Surgical History No significant past surgical history Family History Father Heart disease CT Social History Smoking/Tobacco Use Status: Former Tobacco Use Smoking risk assessment performed?: Yes Alcohol Intake: never Drug use: Never Substance use type: does not use Adopted: No Caregiver/Support person: No Foster care: No Household members: none Housing: apartment Number of Children: 2 number of grandchildren: 1 Communication Needs: Corrective Lenses Education Level: college Do you need help understanding health information?: Always current occupation: Unemployed/Leave of absence Sexually active: No Do you think of yourself as: Decline to provide Current gender identity: male What type of physical activity do you participate in: other Details: weight lifting Frequency: 3-4 times per week Magalie/Mormonism: Quaker Seatbelt use: always Drive intox or ride w/intox sales 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
[2025-08-10 15:19] LABS: Abs Immature Grans 0.02 10^3/uL (0.0-0.06); HCT 31.2 % (40.0-50.0); HGB 10.5 g/dL (13.5-17.5); Immature Grans % 0.4 %; MCH 30.8 pg (27.0-33.0); MCHC 33.7 % (32.0-36.0); MCV 92 fL (80-95); MPV 9.2 fL (8.0-11.0); Platelet Count 118 10^3/uL (130-400); RBC 3.41 10^6/uL (4.36-5.78); RDW 13.1 % (11.8-14.1); RDW-SD 42.5 fL; WBC 5.07 10^3/uL (4.4-10.8)
[2025-08-10 15:36] LABS: Anion Gap 7.5 mmol/L (3-11); BUN 14 mg/dL (7-18); CO2 27.5 mmol/L (21.0-32.0); Calcium 8.8 mg/dL (8.5-10.1); Chloride 100 mmol/L (98-107); Estimated GFR 97.78 (mL/min/1.73m2); Glucose 124 mg/dL (74-106); Potassium 4.7 mmol/L (3.5-5.1); Sodium 135 mmol/L (136-145); Troponin I 5 ng/L (<or=76)
[2025-08-10 16:29] LABS: Troponin I 4 ng/L (<or=76)
== END 2025-08-10 17:00 | disposition home or self-care (01) ==
PROVIDERS: Emergency Provider Emergency Medicine; PCP Family Medicine
DX: R07.9 Chest pain, unspecified (principal); Z59.10 Inadequate housing, unspecified; Z59.811 Housing instability, housed, with risk of homelessness; Z59.89 Other problems related to housing and economic circumstances; Z60.8 Other problems related to social environment
CPT/HCPCS: 99283; 99284; 36415; 80048; 93005; 84484; 85025; 93010

== ENCOUNTER 2025-08-12 15:22 | Emergency (ER) | payer MEDICAID, SELFPAY ==
[2025-08-12] VITALS (18 sets, daily range): BP systolic 90–137; BP diastolic 53–79; PULSE 62–78; RESP 9–22; TEMP 36.6; O2SAT 91–100
--- NOTE | 2025-08-12 15:15 | RT.EKG_ITS ---
APPROVED REPORT Exam: Resting ECG Reason for Exam: Chest Pain Patient Location: E HR:64 bpm ECG Measurements Heart Rate 64 AXIS VT 205 P 29 QRSd 99 QRS 11 QT 429 T 62 QTc 444 Conclusion Sinus rhythm...normal P axis, V-rate 60- 99 Borderline prolonged VT interval...VT >202, V-rate 50- 90 No Occlusion FL
--- NOTE | 2025-08-12 15:24 | W.ED.GENAD ---
Discharge Plan Disposition Patient Disposition: Home Discharge Details Clinical Impression: Chest pain, unspecified Primary Care Provider: Brandon Foster ED Provider: Avery Causey Dawson Meds and New Rx's Prescriptions: Continued gabapentin 300 mg capsule 300 mg PO QID bupropion HCl 75 mg tablet 150 mg PO DAILY Rx Instructions: administer 6 hours apart sumatriptan succinate 100 mg tablet See Rx Instructions PO .COMPLEX Qty: 9 5RF Rx Instructions: take 1 tab at onset of headache; if no relief, may repeat 1 tab after at least 2 hrs; max = 2 tabs/24 hrs PO Nurtec ODT 75 mg tablet,disintegrating 75 mg PO ONCE PRN (Reason: migraine headache) Qty: 8 5RF Rx Instructions: as a single dose; no more than 1 tab per day Emgality Pen 120 mg/mL pen injector 120 mg subcut QMONTH Qty: 1 11RF Claritin Liqui-Gel 10 MG capsule 1 cap PO DAILY Qty: 90 metformin 500 mg tablet 500 mg PO BID fluoxetine 40 mg capsule 80 mg PO DAILY multivitamin Tablet 1 tab PO DAILY clonazepam 0.5 mg tablet See Rx Instructions .ROUTE .COMPLEX Rx Instructions: 1 tab in AM, 1 tab at Noon and 2 tab QHS simvastatin 80 mg tablet 80 mg PO DAILY Patient Comments: Take 1 tablet by mouth once a day benztropine 0.5 MG tablet 0.5 mg PO BID aspirin,buffd-calcium carb-mag 325 MG tablet 325 mg PO DAILY lactulose 10 gram/15 mL solution 20 g PO DIRECTED PRN Patient Comments: TAKE ONE TO TWO TABLESPOONS BY MOUTH NEEDED WHEN 3 DAYS PASS WITHOUT BOWEL MOVEMENT albuterol sulfate 90 mcg/actuation aerosol powdr breath activated 2 inh IH Q6H PRN (Reason: shortness of breath or wheezing) Qty: 1 0RF atenolol 25 mg tablet 75 mg PO DAILY Patient Comments: Take 3 tablet by mouth once a day Invega Sustenna 117 mg/0.75 mL syringe 117 mg IM Q30D divalproex [Depakote ER] 500 mg tablet extended release 24 hr 500 mg PO BID omeprazole 40 mg capsule,delayed release(DR/EC) 40 mg PO DAILY Patient Comments: TAKE 1 CAPSULE BY MOUTH DAILY FOR HEARTBURN Discharge Instructions Instructions: Chest pain Additional Instructions: You were seen in the emergency department for your chest pain. Your blood work and your EKG showed no sign of heart attack. As we discussed if your pain returns or if you have any other concerns please return to the emergency department. Otherwise please follow-up with your primary care provider. HPI General Date/Time Provider Initiated Documentation: 08/12/25 15:24. HPI Narrative: MDM This is an overall well-appearing 60-year-old male with chest pain for which he will undergo evaluation with troponin testing in the setting of his nonischemic ECG. Patient has had no recent fevers nor cough to suggest pneumonia. No positional component to chest pain or recent URI to suggest increased risk for pericarditis. No tearing quality chest pain to suggest aortic dissection. Patient does endorse some shortness of breath so will assess for PE using a D-dimer. No rash to chest to suggest zoster. Patient is not a dialysis patient and so my suspicion is low for tamponade as he is not hypotensive nor tachycardic. His chest pain is quite atypical and now resolved however he does have risk factors. He has a soft nontender abdomen and not suspicious for intra-abdominal infection. Specifically no right lower quadrant tenderness to suggest appendicitis. No left lower quadrant tenderness to suggest diverticulitis. No rash to abdomen to suggest zoster. Patient received prehospital aspirin. 4:10 PM Reassuring initial troponin. CBC with very mild normocytic anemia similar to prior. Persistent thrombocytopenia. No leukocytosis. Basic metabolic panel with mild JESS. Mildly elevated BUN compared to prior. Will provide patient with 500 cc of crystalloid. Normal reassuring magnesium. Chest x-ray read by radiology with no acute cardiopulmonary process. Patient's D-dimer is less than 1000 so based on years criteria he did not complete a CT angiogram. He did not wish to stay for further restratification. HEART SCORE Chest pain Diagnostic Protocol: [-History/Physical/Gestalt: Slightly Suspicious (0)] [-EKG: Normal and/or unchanged from prior EKG (0)] [- AGE: 65 and older (+2)] [- RISK FACTORS: 3 or more risk factors and/or known CAD (+2)] [-TROPONIN: <= normal limit (0)] - TOTAL SCORE: 4 - Risk Factors: DM, current or recent smoker, HTN, HLD, family hx of CAD, obesity 4:43 PM Patient wanted to go to the [place] [facility]. He denied suicidal or homicidal ideation. No flight of ideas to suggest schizophrenia. No pressured speech psychosis. I did not feel he required any acute psychiatric evaluation or intervention. I advised PCP follow-up. He noted that he had difficulty getting his primary care provider who was in [place]. I have asked outdated coordinator Lenaa to have the patient seen by a local PCP if possible. 8:58 PM After the patient was discharged I learned that local referral as patient was established with a primary care provider in [facility]. I tried to call the patient at home to relay this information. Unfortunately the patient did not answer. He had a voicemail that did not identify him by name so I did not leave a message. Diagnostic interpretations performed by me: Per my independent interpretation chest x-ray shows: No acute cardiopulmonary process Per my independent interpretation EKG shows: Narrow complex sinus rhythm at a rate of 64. Normal axis. First-degree AV block. QTc within normal limits. No ST segment abnormalities. No T wave inversions. No acute injury pattern. Appears similar to prior from 2 nights ago. ]Medications: Prehospital aspirin HPI The patient presents to the emergency room for evaluation of chest pain. He reports experiencing a sensation of impending diarrhea and an urgent need to urinate. His chest discomfort has lessened, but he still feels it on the left side. The onset of this discomfort was during sleep, and it did not radiate elsewhere. He also mentions feeling sleepy and weak throughout his body. He is not a smoker. He has not experienced any vomiting or fevers but does have a cough and shortness of breath. Exam General: Well-appearing in no acute distress speaking in complete sentences. Head: Normocephalic, atraumatic. Eye: Extraocular eye movements intact. No conjunctival injection. No scleral icterus. Ear, nose, mouth, throat: Grossly normal inspection. Normal voice, handling secretions normally. Neck: Trachea midline. Cardiovascular: Well-perfused distal extremities. Respiratory: Nonlabored respiration. Clear lungs bilaterally. Gastrointestinal: Nondistended abdomen. Soft. Nontender. Musculoskeletal: No edema. Moving all 4 extremities spontaneously. Skin: Normal for age and race, grossly normal temperature and turgor. No acute rash. Neurologic: Alert and appropriate, no apparent acute deficits. Psychiatric: Mood and manner are appropriate. Grooming and personal hygiene are appropriate. Related Data Home Medications ?Medication ?Instructions ?Recorded ?Confirmed loratadine 10 mg capsule (Claritin 1 cap PO DAILY #90 tabs 12/16/14 08/12/25 Liqui-Gel) aspirin,buffered (calcium 325 mg PO DAILY 11/18/16 08/12/25 carbonate-magnesium) 325 mg tablet benztropine 0.5 mg tablet 0.5 mg PO BID 11/18/16 08/12/25 lactulose 10 gram/15 mL oral 20 g PO DIRECTED PRN 10/03/20 08/12/25 solution albuterol sulfate 90 mcg/actuation 2 inh inhalation Q6H PRN shortness 12/15/20 08/12/25 breath activated powder inhaler of breath or wheezing #1 ea multivitamin 1 tab PO DAILY 01/26/21 08/12/25 clonazepam 0.5 mg tablet See Rx Instructions .Route .COMPLEX 03/04/23 08/12/25 gabapentin 300 mg capsule 300 mg PO QID 03/27/23 08/12/25 atenolol 25 mg tablet 75 mg PO DAILY 01/31/24 08/12/25 divalproex 500 mg tablet,extended 500 mg PO BID 01/31/24 08/12/25 release 24 hr (Depakote ER) omeprazole 40 mg capsule,delayed 40 mg PO DAILY 01/31/24 08/12/25 release paliperidone palmitate 117 mg/0.75 117 mg IM Q30D 01/31/24 08/12/25 mL intramuscular syringe (Invega Sustenna) simvastatin 80 mg tablet 80 mg PO DAILY 03/08/24 08/12/25 bupropion HCl 75 mg tablet 150 mg PO DAILY 08/04/24 08/12/25 galcanezumab-gnlm 120 mg/mL 120 mg subcut QMONTH #1 mL 08/04/24 08/12/25 subcutaneous pen injector (Emgality Pen) rimegepant 75 mg disintegrating 75 mg PO ONCE PRN migraine 08/04/24 08/12/25 tablet (Nurtec ODT) headache #8 tabs sumatriptan succinate 100 mg tablet See Rx Instructions PO .COMPLEX #9 08/04/24 08/12/25 tabs fluoxetine 40 mg capsule 80 mg PO DAILY 09/24/24 08/12/25 metformin 500 mg tablet 500 mg PO BID 09/24/24 08/12/25 Previous Rx's ?Medication ?Instructions ?Recorded albuterol sulfate 90 mcg/actuation 2 inh inhalation Q6H PRN shortness 12/15/20 breath activated powder inhaler of breath or wheezing #1 ea galcanezumab-gnlm 120 mg/mL 120 mg subcut QMONTH #1 mL 08/04/24 subcutaneous pen injector (Emgality Pen) rimegepant 75 mg disintegrating 75 mg PO ONCE PRN migraine 08/04/24 tablet (Nurtec ODT) headache #8 tabs sumatriptan succinate 100 mg tablet See Rx Instructions PO .COMPLEX #9 08/04/24 tabs Allergies Allergy/AdvReac Type Severity Reaction Status Date / Time buspirone Allergy Other (See Verified 08/12/25 16:42 Comment) paliperidone Allergy Other (See Verified 08/12/25 16:42 Comment) paroxetine HCl (From Paxil) Allergy Other (See Verified 08/12/25 16:42 Comment) sertraline Allergy Other (See Verified 08/12/25 16:42 Comment) ziprasidone (From Geodon) Allergy Other (See Verified 08/12/25 16:42 Comment) aripiprazole (From Abilify) AdvReac Intermediate INVOLUNTARY Verified 08/12/25 16:42 MUSCLE MOVEMENTS mirtazapine AdvReac Intermediate INVOLUNTARY Verified 08/12/25 16:42 MUSCLE MOVEMENTS risperidone AdvReac Intermediate INVOLUNTARY Verified 08/12/25 16:42 MUSCLE MOVEMENTS enviornmental Allergy Mild Wheezing Uncoded 08/12/25 16:42 General CARLOS: 3 Medical Decision Making Quality:SDOH Health Related Social Needs: Health related social needs inadequate housing risk of homeless food insecurity house/econ circumstance daily activities lonely/isolated Health related social needs details needs help apartment will raise rental fee. PFSH All Active Problems (Updated 08/12/25 @ 16:45 by Avery Causey MD) Chest pain, unspecified (Acute) Chest pain, unspecified (Acute) Chest pain (Acute) Dental caries (Acute) Nicotine dependence (Acute) Dyspnea on exertion (Acute) Depression (Acute 10/02/14) Chronic headache (Acute) Migraine headache without aura (Chronic) Migraine (Chronic) Poor dentition (Acute) Tobacco use disorder (Chronic) started 2013 1.5 ppd, pipe 1-7/week, QUIT LATE OCT 2021 Allergic rhinitis (Chronic) lortadine Hiatal hernia (Chronic) protonix not effective, nexium works better 02/12/18 Anemia (Chronic) Broken teeth (Chronic) Drug-seeking behavior (Chronic ~09/20/21) Requests Ritalin from providers Medication overuse headache (Acute) Medical History Hypercholesterolemia (09/07/14) pt insists on lipitor 80 mg due to family hx Obesity BMI 52 Hypertension pt requests brand name Tenormin vs atenolol 04/02/18 GERD (gastroesophageal reflux disease) (09/07/14) Diabetes mellitus type 2 in obese (09/09/14) Hypothyroidism (acquired) (09/07/14) Schizoaffective disorder (09/07/14) Rebekah Mariscal YENI 09/2014- [facility] inpatient Trigeminal neuralgia Anxiety Mitral valve prolapse Peripheral neuropathy Surgical History No significant past surgical history Family History Father Heart disease [place] Social History Smoking/Tobacco Use Status: Former Tobacco Use Smoking risk assessment performed?: Yes Alcohol Intake: never Drug use: Never Substance use type: does not use Adopted: No Caregiver/Support person: No Foster care: No Household members: none Housing: apartment Number of Children: 2 number of grandchildren: 1 Communication Needs: Corrective Lenses Education Level: college Do you need help understanding health information?: Always current occupation: Unemployed/Leave of absence Sexually active: No Do you think of yourself as: Decline to provide Current gender identity: male What type of physical activity do you participate in: other Details: weight lifting Frequency: 3-4 times per week Magalie/Lutheran: Anglican Seatbelt use: always Drive intox or ride w/intox 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
[2025-08-12 15:42] LABS: Abs Immature Grans 0.03 10^3/uL (0.0-0.06); HCT 33.2 % (40.0-50.0); HGB 10.8 g/dL (13.5-17.5); Immature Grans % 0.5 %; MCH 30.5 pg (27.0-33.0); MCHC 32.5 % (32.0-36.0); MCV 94 fL (80-95); MPV 8.9 fL (8.0-11.0); Platelet Count 111 10^3/uL (130-400); RBC 3.54 10^6/uL (4.36-5.78); RDW 13.5 % (11.8-14.1); RDW-SD 46.0 fL; WBC 5.51 10^3/uL (4.4-10.8)
--- NOTE | 2025-08-12 15:51 | DI.RAD_ITS ---
Exam(s) XR PORTABLE CHEST AP EXAM: XR PORTABLE CHEST AP CLINICAL HISTORY: Chest pain TECHNIQUE: 2D digital imaging was performed of the chest. One image was obtained. An AP view was obtained. COMPARISON: CR,XR XR CHEST 2V PA LATERAL from 06/19/2025 FINDINGS: MEDIASTINUM: Normal. HEART: Normal. PULMONARY VASCULATURE: Normal. LUNGS: Clear. PLEURAL SPACE: No pleural effusion or pneumothorax. BONE:Within normal limits for the patient's age. OTHER FINDINGS:Normal. IMPRESSION: No acute pulmonary findings. DATA REPOSITORY: RADIATION DOSE DELIVERED:
[2025-08-12 16:02] LABS: Anion Gap 10.9 mmol/L (3-11); BUN 20 mg/dL (7-18); CO2 27.1 mmol/L (21.0-32.0); Calcium 8.5 mg/dL (8.5-10.1); Chloride 100 mmol/L (98-107); Estimated GFR 69.23 (mL/min/1.73m2); Glucose 100 mg/dL (74-106); Magnesium 1.9 mg/dL (1.8-2.4); Potassium 4.5 mmol/L (3.5-5.1); Sodium 138 mmol/L (136-145); Troponin I 5 ng/L (<or=76)
[2025-08-12 16:12] LABS: D-Dimer 902 ng/mlFEU (<500)
[2025-08-12] MEDS: Normal Saline 500 ML IV (16:18)
[2025-08-12 16:58] LABS: Troponin I 5 ng/L (<or=76)
== END 2025-08-12 18:27 | disposition home or self-care (01) ==
PROVIDERS: Emergency Provider Emergency Medicine; PCP Family Medicine
DX: R07.9 Chest pain, unspecified (principal)
CPT/HCPCS: 99285; 99284; 36415; 80048; 93005; 96360; 71045; 83735; 84484; 85025; 85379; 93010

== ENCOUNTER 2025-08-19 13:25 | Emergency (ER) | payer MEDICAID, SELFPAY ==
[2025-08-19 13:24] VITALS: BP 123/71; PULSE 79; RESP 20; TEMP 36.7; O2SAT 98
--- NOTE | 2025-08-19 13:30 | DI.RAD_ITS ---
Exam(s) XR KNEE RT 3V AP,LAT,MENDY EXAM: XR KNEE RT 3V AP,LAT,MENDY CLINICAL HISTORY: Pain. TECHNIQUE: 2D digital imaging was performed. Three views. COMPARISON: No exams were available for comparison FINDINGS: BONES: No acute fracture is present. No bony destructive lesion is seen. Small patellar enthesophytes. JOINTS: There is moderate narrowing of the medial femoral tibial joint. Prominent medial periarticular spurring. There is flattening of the tibial spines. There is varus angulation. No joint effusion is seen. SOFT TISSUE: Diffuse soft tissue swelling. More prominent swelling seen anterior to the patella. Could indicate prepatellar bursitis. There are multiple calcific rounded densities seen lateral to the distal femur which may represent loose bodies. IMPRESSION: Prominent anterior soft tissue swelling. Degenerative changes of the medial femoral tibial joint. Calcifications is medial femoral condyle could represent loose bodies. DATA REPOSITORY: RADIATION DOSE DELIVERED:
--- NOTE | 2025-08-19 13:30 | DI.RAD_ITS ---
Exam(s) XR HIP RT COMPLETE AP PELVIS EXAM: XR HIP RT COMPLETE AP PELVIS CLINICAL HISTORY: Right hip pain. TECHNIQUE: 2D digital imaging was performed. Two views COMPARISON: No exams were available for comparison FINDINGS: BONES: No acute fracture is present. No bony destructive lesion is seen. JOINTS: No dislocation present. The hip joint spaces are maintained. There is bilateral superior acetabular spurring. There is mild spurring at the SI joints. The pubic symphysis is unremarkable. SOFT TISSUE: Normal. IMPRESSION: No acute abnormality. Mild degenerative changes. DATA REPOSITORY: RADIATION DOSE DELIVERED:
--- NOTE | 2025-08-19 13:37 | W.ED.GENAD ---
Discharge Plan Disposition Patient Disposition: Home Condition: Stable Discharge Details Clinical Impression: Bursitis, prepatellar, right Primary Care Provider: Brandon Foster ED Provider: Fang Eubanks Home Meds and New Rx's Prescriptions: Continued gabapentin 300 mg capsule 300 mg PO QID bupropion HCl 75 mg tablet 150 mg PO DAILY Rx Instructions: administer 6 hours apart sumatriptan succinate 100 mg tablet See Rx Instructions PO .COMPLEX Qty: 9 5RF Rx Instructions: take 1 tab at onset of headache; if no relief, may repeat 1 tab after at least 2 hrs; max = 2 tabs/24 hrs PO Nurtec ODT 75 mg tablet,disintegrating 75 mg PO ONCE PRN (Reason: migraine headache) Qty: 8 5RF Rx Instructions: as a single dose; no more than 1 tab per day Emgality Pen 120 mg/mL pen injector 120 mg subcut QMONTH Qty: 1 11RF Claritin Liqui-Gel 10 MG capsule 1 cap PO DAILY Qty: 90 metformin 500 mg tablet 500 mg PO BID fluoxetine 40 mg capsule 80 mg PO DAILY multivitamin Tablet 1 tab PO DAILY clonazepam 0.5 mg tablet See Rx Instructions .ROUTE .COMPLEX Rx Instructions: 1 tab in AM, 1 tab at Noon and 2 tab QHS simvastatin 80 mg tablet 80 mg PO DAILY Patient Comments: Take 1 tablet by mouth once a day benztropine 0.5 MG tablet 0.5 mg PO BID aspirin,buffd-calcium carb-mag 325 MG tablet 325 mg PO DAILY lactulose 10 gram/15 mL solution 20 g PO DIRECTED PRN Patient Comments: TAKE ONE TO TWO TABLESPOONS BY MOUTH NEEDED WHEN 3 DAYS PASS WITHOUT BOWEL MOVEMENT albuterol sulfate 90 mcg/actuation aerosol powdr breath activated 2 inh IH Q6H PRN (Reason: shortness of breath or wheezing) Qty: 1 0RF atenolol 25 mg tablet 75 mg PO DAILY Patient Comments: Take 3 tablet by mouth once a day Invega Sustenna 117 mg/0.75 mL syringe 117 mg IM Q30D divalproex [Depakote ER] 500 mg tablet extended release 24 hr 500 mg PO BID omeprazole 40 mg capsule,delayed release(DR/EC) 40 mg PO DAILY Patient Comments: TAKE 1 CAPSULE BY MOUTH DAILY FOR HEARTBURN Discharge Instructions Instructions: Knee Pain ED, Bursitis ED Additional Instructions: Please use the hinged knee brace daily as needed for comfort. The x-rays show no acute abnormality in the hip and a possible pre-patellar bursitis in the right knee. You may call [facility] for follow up regarding your anxiety. Follow up with primary care provider in 3-5 days. Return to ED sooner if any worsening or concerns. Please take Tylenol or Ibuprofen with food every 4-6 hours as needed for pain and swelling. Referrals: [facility] [Outside] - 3 days Referral Note: Call for further evaluation Brandon Foster [Primary Care Provider, Medicine] - 3 days Discharge Data Discharge Date/Time-TO BE ENTERED AT DEPARTURE: 08/19/25 15:22 HPI General Mode of arrival: EMS. Date/Time Provider Initiated Documentation: 08/19/25 13:33. Limitations to Documentation: no limitations. Information obtained by: patient, EMS, RN notes reviewed and old records reviewed. HPI Narrative: 60-year-old male presents to the ER with a chief complaint of right knee pain which radiates up into his right hip which is an ongoing for last couple weeks. He states it has gotten worse. Reports that he fell last week. Did not take any medication prior to arrival. No other associated symptoms or concerns at this time. Related Data Home Medications ?Medication ?Instructions ?Recorded ?Confirmed loratadine 10 mg capsule (Claritin 1 cap PO DAILY #90 tabs 12/16/14 08/20/25 Liqui-Gel) aspirin,buffered (calcium 325 mg PO DAILY 11/18/16 08/20/25 carbonate-magnesium) 325 mg tablet benztropine 0.5 mg tablet 0.5 mg PO BID 11/18/16 08/20/25 lactulose 10 gram/15 mL oral 20 g PO DIRECTED PRN 10/03/20 08/20/25 solution albuterol sulfate 90 mcg/actuation 2 inh inhalation Q6H PRN shortness 12/15/20 08/20/25 breath activated powder inhaler of breath or wheezing #1 ea multivitamin 1 tab PO DAILY 01/26/21 08/20/25 clonazepam 0.5 mg tablet See Rx Instructions .Route .COMPLEX 03/04/23 08/20/25 gabapentin 300 mg capsule 300 mg PO QID 03/27/23 08/20/25 atenolol 25 mg tablet 75 mg PO DAILY 01/31/24 08/20/25 divalproex 500 mg tablet,extended 500 mg PO BID 01/31/24 08/20/25 release 24 hr (Depakote ER) omeprazole 40 mg capsule,delayed 40 mg PO DAILY 01/31/24 08/20/25 release paliperidone palmitate 117 mg/0.75 117 mg IM Q30D 01/31/24 08/20/25 mL intramuscular syringe (Invega Sustenna) simvastatin 80 mg tablet 80 mg PO DAILY 03/08/24 08/20/25 bupropion HCl 75 mg tablet 150 mg PO DAILY 08/04/24 08/20/25 galcanezumab-gnlm 120 mg/mL 120 mg subcut QMONTH #1 mL 08/04/24 08/20/25 subcutaneous pen injector (Emgality Pen) rimegepant 75 mg disintegrating 75 mg PO ONCE PRN migraine 08/04/24 08/20/25 tablet (Nurtec ODT) headache #8 tabs sumatriptan succinate 100 mg tablet See Rx Instructions PO .COMPLEX #9 08/04/24 08/20/25 tabs fluoxetine 40 mg capsule 80 mg PO DAILY 09/24/24 08/20/25 metformin 500 mg tablet 500 mg PO BID 09/24/24 08/20/25 Previous Rx's ?Medication ?Instructions ?Recorded albuterol sulfate 90 mcg/actuation 2 inh inhalation Q6H PRN shortness 12/15/20 breath activated powder inhaler of breath or wheezing #1 ea galcanezumab-gnlm 120 mg/mL 120 mg subcut QMONTH #1 mL 08/04/24 subcutaneous pen injector (Emgality Pen) rimegepant 75 mg disintegrating 75 mg PO ONCE PRN migraine 08/04/24 tablet (Nurtec ODT) headache #8 tabs sumatriptan succinate 100 mg tablet See Rx Instructions PO .COMPLEX #9 08/04/24 tabs Allergies Allergy/AdvReac Type Severity Reaction Status Date / Time buspirone Allergy Other (See Verified 08/19/25 13:23 Comment) paliperidone Allergy Other (See Verified 08/19/25 13:23 Comment) paroxetine HCl (From Paxil) Allergy Other (See Verified 08/19/25 13:23 Comment) sertraline Allergy Other (See Verified 08/19/25 13:23 Comment) ziprasidone (From Geodon) Allergy Other (See Verified 08/19/25 13:23 Comment) aripiprazole (From Abilify) AdvReac Intermediate INVOLUNTARY Verified 08/19/25 13:23 MUSCLE MOVEMENTS mirtazapine AdvReac Intermediate INVOLUNTARY Verified 08/19/25 13:23 MUSCLE MOVEMENTS risperidone AdvReac Intermediate INVOLUNTARY Verified 08/19/25 13:23 MUSCLE MOVEMENTS enviornmental Allergy Mild Wheezing Uncoded 08/19/25 13:23 General Stated Complaint: Orthopedic CARLOS: 4 Review of Systems Musculoskeletal Musculoskeletal: Reports as per HPI and Reports arthralgias Exam Extrem General: normal to inspection Course Vital Signs Vital signs: Vital Signs Temperature 36.7 C 08/19/25 13:24 Pulse 79 08/19/25 13:24 Respiratory Rate 20 08/19/25 13:24 Blood Pressure 123/71 08/19/25 13:24 Pulse Oximetry 98 08/19/25 13:24 Temperature 36.7 C 08/19/25 13:24 Temperature Source Tympanic 08/19/25 13:24 Pulse 79 08/19/25 13:24 Respiratory Rate 20 08/19/25 13:24 Blood Pressure 123/71 08/19/25 13:24 Blood Pressure Position Sitting 08/19/25 13:24 Pulse Oximetry 98 08/19/25 13:24 Oxygen Delivery Method Room Air 08/19/25 13:24 Oxygen Flow Rate 0 08/19/25 13:24 Pain Level 9 08/19/25 13:24 Medical Decision Making 60-year-old male presents to the ER with a chief complaint of right knee pain which radiates up into his right hip which is an ongoing for last couple weeks. He states it has gotten worse. Reports that he fell last week. Did not take any medication prior to arrival. No other associated symptoms or concerns at this time. X-ray of right knee and right hip ordered, gram of Tylenol p.o. Patient was given ice pack by ED staff upon presentation to the emergency department. X-ray showed prepatellar bursitis, some degenerative changes no acute fracture. Will place patient in a hinged knee brace and stressed follow-up care. This text was generated using [employer] Im[employer] system, please disregard any oddities of phrase or misspellings. Quality:SDOH Health Related Social Needs: Health related social needs inadequate housing risk of homeless food insecurity house/econ circumstance daily activities lonely/isolated Health related social needs details needs help apartment will raise rental fee. [facility] All Active Problems Suicidal ideation (Acute) Bursitis, prepatellar, right (Acute) Chest pain, unspecified (Acute) Chest pain, unspecified (Acute) Chest pain (Acute) Dental caries (Acute) Nicotine dependence (Acute) Dyspnea on exertion (Acute) Depression (Acute 10/02/14) Chronic headache (Acute) Migraine headache without aura (Chronic) Migraine (Chronic) Poor dentition (Acute) Tobacco use disorder (Chronic) started 2013 1.5 ppd, pipe 1-7/week, QUIT LATE OCT 2021 Allergic rhinitis (Chronic) lortadine Hiatal hernia (Chronic) protonix not effective, nexium works better 02/12/18 Anemia (Chronic) Broken teeth (Chronic) Drug-seeking behavior (Chronic ~09/20/21) Requests Ritalin from providers Medication overuse headache (Acute) Medical History Hypercholesterolemia (09/07/14) pt insists on lipitor 80 mg due to family hx Obesity BMI 52 Hypertension pt requests brand name Tenormin vs atenolol 04/02/18 GERD (gastroesophageal reflux disease) (09/07/14) Diabetes mellitus type 2 in obese (09/09/14) Hypothyroidism (acquired) (09/07/14) Schizoaffective disorder (09/07/14) Rebekah Mariscal [facility] 09/2014- [facility] inpatient Trigeminal neuralgia Anxiety Mitral valve prolapse Surgical History No significant past surgical history Family History Father Heart disease MS Social History Smoking/Tobacco Use Status: Former Tobacco Use Smoking risk assessment performed?: Yes Alcohol Intake: never Drug use: Never Substance use type: does not use Adopted: No Caregiver/Support person: No Foster care: No Household members: none Housing: apartment Number of Children: 2 number of grandchildren: 1 Communication Needs: Corrective Lenses Education Level: college Do you need help understanding health information?: Always current occupation: Unemployed/Leave of absence Sexually active: No Do you think of yourself as: Decline to provide Current gender identity: male What type of physical activity do you participate in: other Details: weight lifting Frequency: 3-4 times per week Magalie/Sikhism: Orthodoxy Seatbelt use: always Drive intox or ride w/intox pizza 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
[2025-08-19] MEDS: Acetaminophen 500 MG TAB 1000 MG PO (14:39)
[2025-08-19 15:10] VITALS: BP 125/60; PULSE 76; RESP 14; O2SAT 100
== END 2025-08-19 15:22 | disposition home or self-care (01) ==
PROVIDERS: Emergency Provider Registered Nurse Emergency; PCP Family Medicine
DX: M70.41 Prepatellar bursitis, right knee (principal)
CPT/HCPCS: 99284; 99283; 73562; 73502

== ENCOUNTER 2025-08-19 18:47 | Emergency (ER) | payer MEDICAID, SELFPAY ==
[2025-08-19 18:59] VITALS: BP 151/90; PULSE 82; RESP 20; TEMP 36.8; O2SAT 97
--- NOTE | 2025-08-19 20:08 | W.ED.GENAD ---
Discharge Plan Disposition Condition: Stable Discharge Details Chief Complaint: Recheck Clinical Impression: Bursitis, prepatellar, right, Suicidal ideation Primary Care Provider: Brandon Foster ED Provider: Froilan Ordonez Home Meds and New Rx's Prescriptions: Continued gabapentin 300 mg capsule 300 mg PO QID bupropion HCl 75 mg tablet 150 mg PO DAILY Rx Instructions: administer 6 hours apart sumatriptan succinate 100 mg tablet See Rx Instructions PO .COMPLEX Qty: 9 5RF Rx Instructions: take 1 tab at onset of headache; if no relief, may repeat 1 tab after at least 2 hrs; max = 2 tabs/24 hrs PO Nurtec ODT 75 mg tablet,disintegrating 75 mg PO ONCE PRN (Reason: migraine headache) Qty: 8 5RF Rx Instructions: as a single dose; no more than 1 tab per day Emgality Pen 120 mg/mL pen injector 120 mg subcut QMONTH Qty: 1 11RF Claritin Liqui-Gel 10 MG capsule 1 cap PO DAILY Qty: 90 metformin 500 mg tablet 500 mg PO BID fluoxetine 40 mg capsule 80 mg PO DAILY multivitamin Tablet 1 tab PO DAILY clonazepam 0.5 mg tablet See Rx Instructions .ROUTE .COMPLEX Rx Instructions: 1 tab in AM, 1 tab at Noon and 2 tab QHS simvastatin 80 mg tablet 80 mg PO DAILY Patient Comments: Take 1 tablet by mouth once a day benztropine 0.5 MG tablet 0.5 mg PO BID aspirin,buffd-calcium carb-mag 325 MG tablet 325 mg PO DAILY lactulose 10 gram/15 mL solution 20 g PO DIRECTED PRN Patient Comments: TAKE ONE TO TWO TABLESPOONS BY MOUTH NEEDED WHEN 3 DAYS PASS WITHOUT BOWEL MOVEMENT albuterol sulfate 90 mcg/actuation aerosol powdr breath activated 2 inh IH Q6H PRN (Reason: shortness of breath or wheezing) Qty: 1 0RF atenolol 25 mg tablet 75 mg PO DAILY Patient Comments: Take 3 tablet by mouth once a day Invega Sustenna 117 mg/0.75 mL syringe 117 mg IM Q30D divalproex [Depakote ER] 500 mg tablet extended release 24 hr 500 mg PO BID omeprazole 40 mg capsule,delayed release(DR/EC) 40 mg PO DAILY Patient Comments: TAKE 1 CAPSULE BY MOUTH DAILY FOR HEARTBURN Discharge Instructions Instructions: Anxiety, Adult ED, Bursitis ED Additional Instructions: You were seen in the emergency department for your continued knee pain for your earlier visit today diagnosed with prepatellar bursitis, you need to remain in your knee brace, there is no magic fix for the bursitis pain to go away in a matter of hours, you need to take regular dose of Tylenol and ibuprofen, you spoke to [facility] and they have made a plan to arrange for close follow-up with you. Please return for any emergent concerns. Referrals: [facility] [Outside] Brandon Foster [Primary Care Provider, Medicine] HPI General Date/Time Provider Initiated Documentation: 08/19/25 18:48. HPI Narrative: 60 year-old male presents to ED today by EMS with a chief complaint of continued knee pain- seen here and discharged today with pre-patellar bursitis with negative XR- and went home by RCT, where he called EMS again as he was still having knee pain, and asked to be brought to [facility], which recommended he be evaluated here. He also wants to speak with [facility] about going to [place] despite denying SI/HI. Quality described as knee pain throughout the upper knee and central quad, no radiation to unilateral leg swelling, skin changes, numbness, inability to use his leg, inability to ambulate. Severity is described as moderate. Palliating factors include nothing specific attempted. Provoking factors include nothing specific. Patient not anticoagulated. Related Data Home Medications ?Medication ?Instructions ?Recorded ?Confirmed loratadine 10 mg capsule (Claritin 1 cap PO DAILY #90 tabs 12/16/14 08/19/25 Liqui-Gel) aspirin,buffered (calcium 325 mg PO DAILY 11/18/16 08/19/25 carbonate-magnesium) 325 mg tablet benztropine 0.5 mg tablet 0.5 mg PO BID 11/18/16 08/19/25 lactulose 10 gram/15 mL oral 20 g PO DIRECTED PRN 10/03/20 08/19/25 solution albuterol sulfate 90 mcg/actuation 2 inh inhalation Q6H PRN shortness 12/15/20 08/19/25 breath activated powder inhaler of breath or wheezing #1 ea multivitamin 1 tab PO DAILY 01/26/21 08/19/25 clonazepam 0.5 mg tablet See Rx Instructions .Route .COMPLEX 03/04/23 08/19/25 gabapentin 300 mg capsule 300 mg PO QID 03/27/23 08/19/25 atenolol 25 mg tablet 75 mg PO DAILY 01/31/24 08/19/25 divalproex 500 mg tablet,extended 500 mg PO BID 01/31/24 08/19/25 release 24 hr (Depakote ER) omeprazole 40 mg capsule,delayed 40 mg PO DAILY 01/31/24 08/19/25 release paliperidone palmitate 117 mg/0.75 117 mg IM Q30D 01/31/24 08/19/25 mL intramuscular syringe (Invega Sustenna) simvastatin 80 mg tablet 80 mg PO DAILY 03/08/24 08/19/25 bupropion HCl 75 mg tablet 150 mg PO DAILY 08/04/24 08/19/25 galcanezumab-gnlm 120 mg/mL 120 mg subcut QMONTH #1 mL 08/04/24 08/19/25 subcutaneous pen injector (Emgality Pen) rimegepant 75 mg disintegrating 75 mg PO ONCE PRN migraine 08/04/24 08/19/25 tablet (Nurtec ODT) headache #8 tabs sumatriptan succinate 100 mg tablet See Rx Instructions PO .COMPLEX #9 08/04/24 08/19/25 tabs fluoxetine 40 mg capsule 80 mg PO DAILY 09/24/24 08/19/25 metformin 500 mg tablet 500 mg PO BID 09/24/24 08/19/25 Previous Rx's ?Medication ?Instructions ?Recorded albuterol sulfate 90 mcg/actuation 2 inh inhalation Q6H PRN shortness 12/15/20 breath activated powder inhaler of breath or wheezing #1 ea galcanezumab-gnlm 120 mg/mL 120 mg subcut QMONTH #1 mL 08/04/24 subcutaneous pen injector (Emgality Pen) rimegepant 75 mg disintegrating 75 mg PO ONCE PRN migraine 08/04/24 tablet (Nurtec ODT) headache #8 tabs sumatriptan succinate 100 mg tablet See Rx Instructions PO .COMPLEX #9 08/04/24 tabs Allergies Allergy/AdvReac Type Severity Reaction Status Date / Time buspirone Allergy Other (See Verified 08/19/25 13:23 Comment) paliperidone Allergy Other (See Verified 08/19/25 13:23 Comment) paroxetine HCl (From Paxil) Allergy Other (See Verified 08/19/25 13:23 Comment) sertraline Allergy Other (See Verified 08/19/25 13:23 Comment) ziprasidone (From Geodon) Allergy Other (See Verified 08/19/25 13:23 Comment) aripiprazole (From Abilify) AdvReac Intermediate INVOLUNTARY Verified 08/19/25 13:23 MUSCLE MOVEMENTS mirtazapine AdvReac Intermediate INVOLUNTARY Verified 08/19/25 13:23 MUSCLE MOVEMENTS risperidone AdvReac Intermediate INVOLUNTARY Verified 08/19/25 13:23 MUSCLE MOVEMENTS enviornmental Allergy Mild Wheezing Uncoded 08/19/25 13:23 General Stated Complaint: Recheck CARLOS: 4 Review of Systems All systems reviewed & are unremarkable except as noted in HPI and below Exam Narrative Exam Narrative: GENERAL APPEARANCE: morbid obesity, non-toxic, awake and alert, atraumatic, no acute distress. SKIN: Warm, pale, dry, intact, without rashes/lesions/ulcerations. HEAD: Normocephalic, atraumatic, normal hair distribution for gender/age. EYES: Normal conjunctiva, no exudates on lids/lashes. ENT: Nares patent, no circumoral cyanosis, no facial swelling NECK: Supple, trachea midline, painless cervical ROM. LUNGS/CHEST: Non-labored respirations, normal A/P diameter, symmetrical expansion, no chest wall deformity HEART (CV/PV): No peripheral edema, no JVD. ABDOMEN: Soft, non-distended, no guarding. MSK: Normal ROM, no swelling/deformity to bilateral UEs or LEs, moving all extremities without weakness, no cyanosis, spine midline without tenderness, normal curvature, tenderness to right knee joint line and quadriceps area without swelling or new trauma NEURO: Mental Status AAOx4 - alert to person, place, time, events No facial droop, no forehead involvement. Motor: No focal weakness - strength 5/5 in bilateral UEs and LEs, proximal and distal, symmetric. Sensory: sensation intact to light touch globally. Gait antalgic PSYCH: dysthymic, cooperative, flat affect, endorses SI Course Vital Signs Vital signs: Vital Signs Temperature 36.8 C 08/19/25 18:59 Pulse 82 08/19/25 18:59 Respiratory Rate 20 08/19/25 18:59 Blood Pressure 151/90 H 08/19/25 18:59 Pulse Oximetry 97 08/19/25 18:59 Temperature 36.8 C 08/19/25 18:59 Temperature Source Oral 08/19/25 18:59 Pulse 82 08/19/25 18:59 Respiratory Rate 20 08/19/25 18:59 Blood Pressure 151/90 H 08/19/25 18:59 Blood Pressure Position Sitting 08/19/25 18:59 Pulse Oximetry 97 08/19/25 18:59 Oxygen Delivery Method Room Air 08/19/25 18:59 Oxygen Flow Rate 0 08/19/25 18:59 Pain Level 8 08/19/25 18:59 Medical Decision Making This dictation utilizes [id number] dictation software and may contain unedited grammatical errors. 60 year-old male presents to ED today by EMS with a chief complaint of continued knee pain- seen here and discharged today with pre-patellar bursitis with negative XR- and went home by RCT, where he called EMS again as he was still having knee pain, and asked to be brought to [facility], which recommended he be evaluated here. He also wants to speak with [facility] about going to [place] despite denying SI/HI. Quality described as knee pain throughout the upper knee and central quad, no radiation to unilateral leg swelling, skin changes, numbness, inability to use his leg, inability to ambulate. Severity is described as moderate. Palliating factors include nothing specific attempted. Provoking factors include nothing specific. Patients' medical history: Obesity, T2DM, schizoaffective disorder, anxiety, chest pain, migraine. Family and social history: Lives at home independently, denies alcohol or drug use. Pertinent exam findings / vital signs include tenderness throughout the quadriceps muscle without abnormality palpable, no joint line tenderness to the knee, able to bear weight, still in hinged knee brace from prior visit this afternoon. Differential / pathologies of concern include anxiety, knee pain. Diagnostic studies of: - Discussed that he had an x-ray just hours ago and that we would not be performing this again today without any new trauma. Interventions of: - Requested [facility] speak with the patient for his anxiety, patient feels he needs to be in [place]. - Spoke with [facility] provider at 2300 hrs., he does endorse SI to them, they would like to reevaluate him in the morning in person, this is a reasonable request as he will not likely be able to find a ride home till 6 AM anyway, ordered Voltaren gel for his knee ED Course/Assessment/Plan: 60-year-old male presents again today after being diagnosed with prepatellar bursitis with continued knee pain, he has made no effort to address his pain since leaving by our CT at shift change at 1530, he took an ambulance to urgent care and they told him he needs to be seen here, he is stating that he needs to get his life together and that he believes he needs to go back to [place] to do so. He endorses vaguely SI with me but will not elaborate further, he was evaluated by [facility] and he did endorse some suicidality to them, they recommend that he remain here tonight and they will reevaluate him in person in the morning, ordered Voltaren gel, signed out to oncoming provider Dr. Irahtea at shift change. Findings not consistent with new trauma, suicidality, homicidality. Disposition of bursitis, prepatellar, right and suicidal ideation. Patient verbalized understanding of the plan and return to ED criteria and engaged in shared decision making. Medical Records Medical records reviewed: Yes I reviewed the patient's medical records. Quality:SDOH Health Related Social Needs: Health related social needs inadequate housing risk of homeless food insecurity house/econ circumstance daily activities lonely/isolated Health related social needs details needs help apartment will raise rental fee. PFSH All Active Problems (Updated 08/19/25 @ 23:05 by JORDANA Holguin) Suicidal ideation (Acute) Bursitis, prepatellar, right (Acute) Chest pain, unspecified (Acute) Chest pain, unspecified (Acute) Chest pain (Acute) Dental caries (Acute) Nicotine dependence (Acute) Dyspnea on exertion (Acute) Depression (Acute 10/02/14) Chronic headache (Acute) Migraine headache without aura (Chronic) Migraine (Chronic) Poor dentition (Acute) Tobacco use disorder (Chronic) started 2013 1.5 ppd, pipe 1-7/week, QUIT LATE OCT 2021 Allergic rhinitis (Chronic) lortadine Hiatal hernia (Chronic) protonix not effective, nexium works better 02/12/18 Anemia (Chronic) Broken teeth (Chronic) Drug-seeking behavior (Chronic ~09/20/21) Requests Ritalin from providers Medication overuse headache (Acute) Medical History Hypercholesterolemia (09/07/14) pt insists on lipitor 80 mg due to family hx Obesity BMI 52 Hypertension pt requests brand name Tenormin vs atenolol 04/02/18 GERD (gastroesophageal reflux disease) (09/07/14) Diabetes mellitus type 2 in obese (09/09/14) Hypothyroidism (acquired) (09/07/14) Schizoaffective disorder (09/07/14) Rebekah Mariscal [facility] 09/2014- [facility] inpatient Trigeminal neuralgia Anxiety Mitral valve prolapse Surgical History No significant past surgical history Family History Father Heart disease [place] Social History Smoking/Tobacco Use Status: Former Tobacco Use Smoking risk assessment performed?: Yes Alcohol Intake: never Drug use: Never Substance use type: does not use Adopted: No Caregiver/Support person: No Foster care: No Household members: none Housing: apartment Number of Children: 2 number of grandchildren: 1 Communication Needs: Corrective Lenses Education Level: college Do you need help understanding health information?: Always current occupation: Unemployed/Leave of absence Sexually active: No Do you think of yourself as: Decline to provide Current gender identity: male What type of physical activity do you participate in: other Details: weight lifting Frequency: 3-4 times per week Magalie/Spiritism: Adventism Seatbelt use: always Drive intox or ride w/intox wheelchair 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
[2025-08-19] MEDS: Diclofenac 1% Gel 100 GM TUBE TP (23:08)
--- NOTE | 2025-08-20 07:53 | ED.PSYCHBOAR ---
Date of service: 08/20/25 Time of Service: 07:53 Psychiatric Border Handoff Update Brief Story: I received signout on this 60-year-old male voluntarily in the emergency department in the setting of behavioral concerns. No suicidal or homicidal ideation. No active behavioral issues. Status: voluntary Able to leave: would need physician/IMANI and crisis evaluation prior to leaving Mediation Reconciliation performed: Yes Code Status ordered: Yes Diet ordered: Yes Future to do Items: I met with Per from [facility]. He provided the patient with a safety plan. I met with the patient. Blood pressure was mildly elevated as she had not yet taken his home blood pressure medicines which I had ordered. He is not on any firearms. He understood his return indications including any feelings of being unsafe. He was discharged with an empiric trial of expectant outpatient management. Discharge Plan Disposition Patient Disposition: Home Condition: Stable Discharge Details Clinical Impression: Bursitis, prepatellar, right, Suicidal ideation Primary Care Provider: Brandon Foster ED Provider: Avery Causey [place] Meds and New Rx's Prescriptions: Continued gabapentin 300 mg capsule 300 mg PO QID bupropion HCl 75 mg tablet 150 mg PO DAILY Rx Instructions: administer 6 hours apart sumatriptan succinate 100 mg tablet See Rx Instructions PO .COMPLEX Qty: 9 5RF Rx Instructions: take 1 tab at onset of headache; if no relief, may repeat 1 tab after at least 2 hrs; max = 2 tabs/24 hrs PO Nurtec ODT 75 mg tablet,disintegrating 75 mg PO ONCE PRN (Reason: migraine headache) Qty: 8 5RF Rx Instructions: as a single dose; no more than 1 tab per day Emgality Pen 120 mg/mL pen injector 120 mg subcut QMONTH Qty: 1 11RF Claritin Liqui-Gel 10 MG capsule 1 cap PO DAILY Qty: 90 metformin 500 mg tablet 500 mg PO BID fluoxetine 40 mg capsule 80 mg PO DAILY multivitamin Tablet 1 tab PO DAILY clonazepam 0.5 mg tablet See Rx Instructions .ROUTE .COMPLEX Rx Instructions: 1 tab in AM, 1 tab at Noon and 2 tab QHS simvastatin 80 mg tablet 80 mg PO DAILY Patient Comments: Take 1 tablet by mouth once a day benztropine 0.5 MG tablet 0.5 mg PO BID aspirin,buffd-calcium carb-mag 325 MG tablet 325 mg PO DAILY lactulose 10 gram/15 mL solution 20 g PO DIRECTED PRN Patient Comments: TAKE ONE TO TWO TABLESPOONS BY MOUTH NEEDED WHEN 3 DAYS PASS WITHOUT BOWEL MOVEMENT albuterol sulfate 90 mcg/actuation aerosol powdr breath activated 2 inh IH Q6H PRN (Reason: shortness of breath or wheezing) Qty: 1 0RF atenolol 25 mg tablet 75 mg PO DAILY Patient Comments: Take 3 tablet by mouth once a day Invega Sustenna 117 mg/0.75 mL syringe 117 mg IM Q30D divalproex [Depakote ER] 500 mg tablet extended release 24 hr 500 mg PO BID omeprazole 40 mg capsule,delayed release(DR/EC) 40 mg PO DAILY Patient Comments: TAKE 1 CAPSULE BY MOUTH DAILY FOR HEARTBURN Discharge Instructions Instructions: Anxiety, Adult ED, Bursitis ED Additional Instructions: You were seen in the emergency department for your continued knee pain for your earlier visit today diagnosed with prepatellar bursitis, you need to remain in your knee brace, there is no magic fix for the bursitis pain to go away in a matter of hours, you need to take regular dose of Tylenol and ibuprofen, you spoke to [facility] and they have made a plan to arrange for close follow-up with you. Please return for any emergent concerns. You were given a safety plan by [facility] [employer] [facility]. No medications were changed on your visit. Referrals: [facility] [Outside] Brandon Foster [Primary Care Provider, Medicine]
[2025-08-20 08:58] VITALS: BP 164/100; PULSE 68; RESP 20; O2SAT 97
--- NOTE | 2025-08-20 09:00 | CMPROGNOTE_ITS ---
Date of service: 08/20/25 Time of Service: 09:01 Care Management Progress Note Progress Note Text Progress Note Text: CM discussed Avery's plan of care with Bandar FRAZIER. Per FREDDIE, plan was also discussed with ED . Per report, no suicidal or homicidal ideation. Avery will be sent home today on a safety plan and will follow up with his community arts centre manager. CM will continue to follow. Social Determinants of Health Screening Social Determinants of health last assessed in clinic: 08/20/25 Will the Patient Participate in the Screening?: Yes Do you worry about having a steady place to live?: no Problems where you live: no known problems In the past 12 months, have you had to go without electric, gas, oil or water in your home?: no 1. Within the past 12 months, we worried whether our food would run out before we got money to buy more.: Don't know/refused 2. Within the past 12 months, the food we bought just didn't last and we didn't have money to get more.: Don't know/refused Has lack of transportation kept you from medical appointments or from doing things needed for daily living?: no Has anyone in your life made you feel unsafe or unsupported?: no How hard is it for you to pay for the very basics like food, housing, medical care, and heating? Would you say it is:: Not hard at all Do you want help finding or keeping work or a job?: I do not need or want help If for any reason you need help with day-to-day activities such as bathing, preparing meals, shopping, managing finances, etc., do you get the help you need?: I don?t need any help How often do you feel lonely or isolated from those around you?: Never Do you speak a language other than Uzbek at home?: No Does the patient want assistance with any of the above?: No
--- NOTE | 2025-08-20 10:56 | MHPN_ITS ---
Date of service: 08/20/25 Time of Service: 08:10 Suicide Severity Rate CSSRS Have you wished you were or wished you could go to sleep and not wake up?: No Have you actually had any thoughts of killing yourself?: No CSSRS2 Have you been thinking about how you might do this?: No Have you had these thoughts and had some intention of acting on them?: No Have you started to work out or worked out the details of how to kill yourself? Do you intend to carry out this plan?: No CSSRS3 Have you ever done anything, started to do anything or prepared to do anything to end your life?: No Screening Score Total Score: 0 Screening: Negative Mental Health Emergency Note Release [facility] release signed:: Yes Reason for Visit Mr Sharp is a 60 year old male who resides in a apartment in [facility]. The client reports that he wants to leave. The client reports that he has been feeling anxious due to thinking about getting through his day. The client states thinking about getting through his day and what to do is a lot and creates anxiety. The client denies SI and HI. The client denies NSSI. The client states that he needs new shoes and a cane to help him walk. The client reports that he wanted someone to talk with and that he has gotten to talk with this clinician. This clinician suggested getting a therapist and the client stated he did not want to talk with someone that often. The client reports that he would appreciate a family service caseworker checking on him. This clinician worked with the client's family service caseworker on the case so someone from adult out patient or TPL can check on the client. The client engaged in creating a safety plan. In the last 2 weeks has the pt presented for ES prior to today?: No Additional Issues: Assaultive/Threatening Behavior: No Medical Concerns: No Client engaged in active self harm w/weapon: No Threatening to run away: No Child reported abuse/neglect: No Voluntarily presenting for services: Yes Domestic violence is a concern: No Extreme Psychosis or extreme behavior is present: No Impression Mr Sharp is a 60 year old male who resides in a apartment in [facility]. The client reports that he wants to leave. The client reports that he has been feeling anxious due to thinking about getting through his day. The client states thinking about getting through his day and what to do is a lot and creates anxiety. The client denies SI and HI. The client denies NS SI. The client states that he needs new shoes and a cane to help him walk. The client reports that he wanted someone to talk with and that he has gotten to talk with this clinician. This clinician suggested getting a therapist and the client stated he did not want to talk with someone that often. The client reports that he would appreciate a family service caseworker checking on him. This clinician worked with the client's family service caseworker on the case so someone from adult out patient or TPL can check on the client. The client engaged in creating a safety plan. Plan/Disposition Recommended Disposition: SPECIAL SERVICES COORDINATOR (senior electrical project manager will check in. ). Plan: Safety planned home. Reports/communication Outcome discussed with: ED/Personnel
== END 2025-08-20 09:49 | disposition home or self-care (01) ==
PROVIDERS: Emergency Provider Emergency Medicine; PCP Family Medicine
DX: M70.41 Prepatellar bursitis, right knee (principal); R45.851 Suicidal ideations
CPT/HCPCS: 99284; 99285; 00123

== ENCOUNTER 2025-08-26 13:15 | Inpatient (IN) | payer MEDICAID, SELFPAY ==
[2025-08-26] VITALS (17 sets, daily range): BP systolic 119–157; BP diastolic 47–115; PULSE 73–95; RESP 11–20; TEMP 36–36.8; O2SAT 92–100
--- NOTE | 2025-08-26 14:15 | DI.CT_ITS ---
Exam(s) CT HEAD CERVICAL SPINE WO EXAM: CT HEAD CERVICAL SPINE WO CLINICAL HISTORY: fall, [place]. TECHNIQUE: Imaging Protocol: Axial computed tomography images with coronal and sagittal reformatted images were created and reviewed COMPARISON: CT CT BRAIN NECK CTA from 02/11/2025 FINDINGS: Head CT Ventricles and Extra axial spaces: Normal in size and morphology for the patient's age. Hemorrhage: None. Cerebral parenchyma: No evidence of mass or acute infarct. Midline shift: None. Brainstem/Cerebellum: Normal. Calvarium: Normal. Visualized Paranasal sinuses/Mastoids: Clear. Soft tissues: Unremarkable. Cervical Spine CT BONES: Vertebral body heights are maintained. Alignment is normal. There is no evidence of acute fracture. Degenerative disc changes and facet degenerative changes are seen greater in the mid cervical region. SOFT TISSUES: No paraspinal hematoma. The airway appears intact. No pneumothorax is seen at the lung apices. IMPRESSION: Head CT: No acute abnormality. C-spine CT: Degenerative changes, no acute abnormality. RADIATION DOSE DELIVERED: Total DLP DATA REPOSITORY: All CT scans at this facility are submitted to the National Radiology Data Registry (NRDR) Dose Index Registry (DIR) with the [employer] (A[employer]). RADIATION OPTIMIZATION: All CT scans at this facility use at least one of these dose optimization techniques: automated exposure control; mA and/or kV adjustment per patient size (includes targeted exams where dose is matched to clinical indication); or iterative reconstruction.
--- NOTE | 2025-08-26 14:15 | DI.RAD_ITS ---
Exam(s) XR KNEE RT 3V AP,LAT,MENDY EXAM: XR KNEE RT 3V AP,LAT,MENDY CLINICAL HISTORY: right knee pain and swelling. TECHNIQUE: 2D digital imaging was performed. Three views. COMPARISON: CR XR KNEE RT 3V AP,LAT,MENDY from 08/19/2025 FINDINGS: BONES: No acute fracture is present. No bony destructive lesion is seen. Patellar enthesophytes. JOINTS: There is moderate narrowing of the medial femoral tibial joint space and periarticular spurring. Spurring is also noted there at the articular aspect of the patella. No joint effusion is seen. SOFT TISSUE: Diffuse subcutaneous edema. Focal edema at noted anterior to the patella. IMPRESSION: Anterior soft tissue swelling. No evidence of fracture. Degenerative changes. DATA REPOSITORY: RADIATION DOSE DELIVERED:
--- NOTE | 2025-08-26 14:15 | RT.EKG_ITS ---
APPROVED REPORT Exam: Resting ECG Reason for Exam: knee pain and swelling Patient Location: E HR:74 bpm ECG Measurements Heart Rate 74 AXIS PA 184 P 31 QRSd 108 QRS 3 QT 429 T 61 QTc 477 Conclusion Sinus rhythm...normal P axis, V-rate 60- [address] depression, lateral leads...ST <-0.07mV, I aVL V5 V6 Physician: No STEMI
[2025-08-26 14:59] LABS: Abs Immature Grans 0.11 10^3/uL (0.0-0.06); HCT 25.5 % (40.0-50.0); HGB 8.3 g/dL (13.5-17.5); Immature Grans % 1.7 %; MCH 30.6 pg (27.0-33.0); MCHC 32.5 % (32.0-36.0); MCV 94 fL (80-95); MPV 8.5 fL (8.0-11.0); Platelet Count 249 10^3/uL (130-400); RBC 2.71 10^6/uL (4.36-5.78); RDW 13.8 % (11.8-14.1); RDW-SD 46.6 fL; WBC 6.30 10^3/uL (4.4-10.8)
--- NOTE | 2025-08-26 15:15 | DI.RAD_ITS ---
Exam(s) XR CHEST 2V PA LATERAL EXAM: XR CHEST 2V PA LATERAL CLINICAL HISTORY: fall TECHNIQUE: 2D digital imaging was performed. Two views. COMPARISON: CR XR PORTABLE CHEST AP from 08/12/2025 FINDINGS: HEART: Enlarged. Aorta: Not dilated. PULMONARY VASCULATURE: Normal. MEDIASTINUM: Unremarkable. LUNGS: Clear. PLEURAL SPACE: No pleural effusion or pneumothorax. BONE:Unremarkable for age. SOFT TISSUES: Unremarkable. IMPRESSION: No acute abnormality. DATA REPOSITORY: RADIATION DOSE DELIVERED:
[2025-08-26 15:21] LABS: ALT 22 U/L (16-63); AST 20 U/L (15-37); Albumin 2.5 g/dL (3.4-5.0); Alkaline Phosphatase 87 U/L (46-116); Anion Gap 8.1 mmol/L (3-11); BUN 8 mg/dL (7-18); Bilirubin, Total 0.3 mg/dL (0.2-1.0); C-Reactive Protein 2.39 mg/dL (<or=0.5); CO2 28.9 mmol/L (21.0-32.0); Calcium 8.8 mg/dL (8.5-10.1); Chloride 97 mmol/L (98-107); Glucose 91 mg/dL (74-106); Potassium 4.6 mmol/L (3.5-5.1); Sodium 134 mmol/L (136-145); TSH (W/Ref FT4) 9.33 uIU/mL (0.36-3.74); Total Protein 8.1 g/dL (6.4-8.2); Troponin I 4 ng/L (<or=76)
[2025-08-26 15:24] LABS: ESR 30 mm/hr (0-20)
--- NOTE | 2025-08-26 15:36 | W.ED.GENAD ---
Discharge Plan Disposition Patient Disposition: Admit to [facility] Condition: Stable Discharge Details Clinical Impression: Septic prepatellar bursitis of right knee Admit Date/Time: 08/26/25 16:21 Admit Provider: Robert Ramirez Attending Provider: Robert Ramirez Primary Care Provider: Brandon Foster ED Provider: Froilan Ordonez Discharge Data Discharge Date/Time-TO BE ENTERED AT DEPARTURE: 08/26/25 18:18 HPI General Date/Time Provider Initiated Documentation: 08/26/25 13:46. HPI Narrative: This 60-year-old male known to this facility with history of schizophrenia hide hypertension, hyperlipidemia diabetes presents with report of multiple falls today, he states that he felt weak when he got out of bed and his right leg was hurting him. He states he remembers falling into the door. He denies any loss of consciousness. He denies any chest pain or any shortness of breath. He states he is having trouble putting weight on his right leg. He was diagnosed with a bursitis several days ago. He is not currently on antibiotics per patient. He denies known fever or chills. Related Data Home Medications Medication Instructions Recorded Confirmed aspirin,buffered (calcium 325 mg PO DAILY 11/18/16 08/26/25 carbonate-magnesium) 325 mg tablet benztropine 0.5 mg tablet 0.5 mg PO BID 11/18/16 08/26/25 lactulose 10 gram/15 mL oral 20 g PO DIRECTED PRN 10/03/20 08/26/25 solution albuterol sulfate 90 mcg/actuation 2 inh inhalation Q6H PRN shortness 12/15/20 08/26/25 breath activated powder inhaler of breath or wheezing #1 ea multivitamin 1 tab PO DAILY 01/26/21 08/26/25 clonazepam 0.5 mg tablet See Rx Instructions .Route .COMPLEX 03/04/23 08/26/25 gabapentin 300 mg capsule 300 mg PO QID 03/27/23 08/26/25 atenolol 25 mg tablet 75 mg PO DAILY 01/31/24 08/26/25 divalproex 500 mg tablet,extended 500 mg PO BID 01/31/24 08/26/25 release 24 hr (Depakote ER) omeprazole 40 mg capsule,delayed 40 mg PO DAILY 01/31/24 08/26/25 release paliperidone palmitate 117 mg/0.75 117 mg IM Q30D 01/31/24 08/26/25 mL intramuscular syringe (Invega Sustenna) simvastatin 80 mg tablet 80 mg PO DAILY 03/08/24 08/26/25 galcanezumab-gnlm 120 mg/mL 120 mg subcut QMONTH #1 mL 08/04/24 08/26/25 subcutaneous pen injector (Emgality Pen) rimegepant 75 mg disintegrating 75 mg PO ONCE PRN migraine 08/04/24 08/26/25 tablet (Nurtec ODT) headache #8 tabs sumatriptan succinate 100 mg tablet See Rx Instructions PO .COMPLEX #9 08/04/24 08/26/25 tabs fluoxetine 40 mg capsule 80 mg PO DAILY 09/24/24 08/26/25 metformin 500 mg tablet 500 mg PO BID 09/24/24 08/26/25 bupropion HCl 300 mg 24 hr tablet, 300 mg PO DAILY 08/27/25 08/27/25 extended release loratadine 10 mg tablet 10 mg PO DAILY 08/27/25 08/27/25 Previous Rx's Medication Instructions Recorded albuterol sulfate 90 mcg/actuation 2 inh inhalation Q6H PRN shortness 12/15/20 breath activated powder inhaler of breath or wheezing #1 ea galcanezumab-gnlm 120 mg/mL 120 mg subcut QMONTH #1 mL 08/04/24 subcutaneous pen injector (Emgality Pen) rimegepant 75 mg disintegrating 75 mg PO ONCE PRN migraine 08/04/24 tablet (Nurtec ODT) headache #8 tabs sumatriptan succinate 100 mg tablet See Rx Instructions PO .COMPLEX #9 08/04/24 tabs Allergies Allergy/AdvReac Type Severity Reaction Status Date / Time buspirone Allergy Other (See Verified 08/26/25 13:23 Comment) paliperidone Allergy Other (See Verified 08/26/25 13:23 Comment) paroxetine HCl (From Paxil) Allergy Other (See Verified 08/26/25 13:23 Comment) sertraline Allergy Other (See Verified 08/26/25 13:23 Comment) ziprasidone (From Geodon) Allergy Other (See Verified 08/26/25 13:23 Comment) aripiprazole (From Abilify) AdvReac Intermediate INVOLUNTARY Verified 08/26/25 13:23 MUSCLE MOVEMENTS mirtazapine AdvReac Intermediate INVOLUNTARY Verified 08/26/25 13:23 MUSCLE MOVEMENTS risperidone AdvReac Intermediate INVOLUNTARY Verified 08/26/25 13:23 MUSCLE MOVEMENTS enviornmental Allergy Mild Wheezing Uncoded 08/26/25 13:23 General Stated Complaint: AMS/LOC CARLOS: 3 Exam Narrative Exam Narrative: Alert, disheveled 60-year-old male who appears to be who appears to be at his baseline mentation and speech, scant wheezes, cardiac rate rhythm regular, no visible sign of head trauma no hemotympanum pupils are equal round reactive to light commendation, negative [id number] negative heel ugarte, negative pronator drift, no abdominal tenderness or visible evidence of abdominal trauma, right knee with approximately 12 inch x 12 inch area of erythema and likely septic bursitis, able to flex and extend do not suspect any intra-articular involvement, no crepitus Course Vital Signs Vital signs: Vital Signs Temperature 36.8 C 08/26/25 13:17 Pulse 85 08/26/25 13:17 Respiratory Rate 20 08/26/25 13:17 Blood Pressure 157/81 H 08/26/25 13:17 Pulse Oximetry 94 08/26/25 13:17 Temperature 36.8 C 08/26/25 13:21 Pulse 85 08/26/25 13:21 Respiratory Rate 20 08/26/25 13:21 Blood Pressure 157/81 H 08/26/25 13:21 Blood Pressure Position Sitting 08/26/25 13:21 Pulse Oximetry 94 08/26/25 13:21 Oxygen Delivery Method Room Air 08/26/25 13:21 Oxygen Flow Rate 0 08/26/25 13:21 Lab/Test Results Lab/Test Results: Laboratory Tests Range/Units 08/26/25 14:50 WBC (4.4-10.8) 10^3/uL 6.30 RBC (4.36-5.78) 10^6/uL 2.71 L Hgb (13.5-17.5) g/dL 8.3 L Hct (40.0-50.0) % 25.5 L MCV (80-95) fL 94 MCH (27.0-33.0) pg 30.6 MCHC (32.0-36.0) % 32.5 RDW (11.8-14.1) % 13.8 Plt Count (130-400) 10^3/uL 249 MPV (8.0-11.0) fL 8.5 Immature Gran % % 1.7 Neutrophils % % 72.0 Lymphocytes % % 16.3 Monocytes % % 8.4 Eosinophils % % 1.4 Basophils % % 0.2 Nucleated RBC % (0.0-0.3) % 0.0 Absolute Neutrophils (1.2-6.7) 10^3/uL 4.53 Absolute Lymphocytes (1.2-3.4) 10^3/uL 1.03 L Absolute Monocytes (0.1-0.8) 10^3/uL 0.53 Absolute Eosinophils (0.0-0.7) 10^3/uL 0.09 Absolute Basophils (0.0-0.2) 10^3/uL 0.01 VBG Lactate (<or=2.0) mmol/L 1.4 Sodium (136-145) mmol/L 134 L Potassium (3.5-5.1) mmol/L 4.6 Chloride (98-107) mmol/L 97 L Carbon Dioxide (21.0-32.0) mmol/L 28.9 Anion Gap (3-11) mmol/L 8.1 BUN (7-18) mg/dL 8 Creatinine (0.70-1.30) mg/dL 1.0 Est GFR (CKD-EPI 2020) (mL/min/1.73m2) 86.16 Glucose (74-106) mg/dL 91 Calcium (8.5-10.1) mg/dL 8.8 Total Bilirubin (0.2-1.0) mg/dL 0.3 AST (15-37) U/L 20 ALT (16-63) U/L 22 Alkaline Phosphatase (46-116) U/L 87 Troponin I (<or=76) ng/L 4 C-Reactive Protein (<or=0.5) mg/dL 2.39 H Total Protein (6.4-8.2) g/dL 8.1 Albumin (3.4-5.0) g/dL 2.5 L TSH (0.36-3.74) uIU/mL 9.33 H Medical Decision Making Results: No leukocytosis sodium 134 chloride 97 interestingly, patient CBC hemoglobin of 8.3 hematocrit of 25 TSH slightly elevated at 9.3, albumin of 2.5, CRP of 2.39 ESR of 30, pending wound culture, CT head does not show evidence of acute abnormality pending chest x-ray and left knee x-ray, pending EKG Assessment and plan: Patient presenting with weakness and septic arthritis on right knee. Has approximately 12 inch area of surrounding erythema with a fluctuant area on the right lateral prepatellar bursa, there is serosanguineous drainage. Case discussed with Dr. Figueroa who recommends [address] Figueroa will evaluate in the morning to decide if patient needs to go to the operating room and patient is to remain n.p.o. after that time. I did aspirate initially to send a wound culture. Arley Ordonez will place a wick and perform incision and drainage at the end of my shift. And as patient has had 2 falls today and likely septic bursitis I feel patient warrants admission to the hospital. I have started cefazolin and vancomycin. Patient has a CT head that does not show acute abnormality and low suspicion clinically for a CVA or TIA as patient is fully alert and oriented and remembers the entirety of the events. He has pain with flexion and extension overlying the prepatellar bursa but it does not appear to be intra-articular on my assessment. At this time patient is agreeable to admission he has remained hemodynamically stable. He does have a 2 point drop in his hemoglobin, this is potentially in his knee although I do not see a large effusion. He denies any blood in his stool and he is not anticoagulated. Would continue to monitor this. Will sign out pending formal interpretation of knee and chest x-ray. Dr. Ramirez to admit patient to the medical service with Dr. Figueroa consulting Quality:[facility] Health Related Social Needs: Health related social needs inadequate housing risk of homeless food insecurity house/econ circumstance daily activities lonely/isolated Health related social needs details needs help apartment will raise rental fee. PFSH All Active Problems (Updated 08/26/25 @ 20:35 by JORDANA Holguin) On deep vein thrombosis (DVT) prophylaxis (Acute) Septic prepatellar bursitis of right knee (Acute) Bursitis, prepatellar, right (Acute) Chest pain (Acute) Dental caries (Acute) Nicotine dependence (Acute) Dyspnea on exertion (Acute) Depression (Acute 10/02/14) Chronic headache (Acute) Migraine headache without aura (Chronic) Migraine (Chronic) Poor dentition (Acute) Tobacco use disorder (Chronic) started 2013 1.5 ppd, pipe 1-7/week, QUIT LATE OCT 2021 Allergic rhinitis (Chronic) lortadine Hiatal hernia (Chronic) protonix not effective, nexium works better 02/12/18 Anemia (Chronic) Broken teeth (Chronic) Drug-seeking behavior (Chronic ~09/20/21) Requests Ritalin from providers Medication overuse headache (Acute) Medical History (Updated 08/26/25 @ 20:35 by JORDANA Holguin) Chest pain, unspecified Chest pain, unspecified Suicidal ideation Hypercholesterolemia (09/07/14) pt insists on lipitor 80 mg due to family hx Obesity BMI 52 Hypertension pt requests brand name Tenormin vs atenolol 04/02/18 GERD (gastroesophageal reflux disease) (09/07/14) Diabetes mellitus type 2 in obese (09/09/14) Hypothyroidism (acquired) (09/07/14) Schizoaffective disorder (09/07/14) Rebekah Mariscal [facility] 09/2014- [facility] inpatient Trigeminal neuralgia Anxiety Mitral valve prolapse Surgical History No significant past surgical history Family History Father Heart disease [place] Social History Smoking/Tobacco Use Status: Former Tobacco Use Smoking risk assessment performed?: Yes Alcohol Intake: never Drug use: Never Substance use type: does not use Adopted: No Caregiver/Support person: No Foster care: No Household members: none Housing: apartment Number of Children: 2 number of grandchildren: 1 Communication Needs: Corrective Lenses Education Level: college Do you need help understanding health information?: Always current occupation: Unemployed/Leave of absence Sexually active: No Do you think of yourself as: Decline to provide Current gender identity: male What type of physical activity do you participate in: other Details: weight lifting Frequency: 3-4 times per week Magalie/Buddhism: Jehovah'S Witness Seatbelt use: always 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
[2025-08-26 15:48] LABS: Hemoglobin A1C 6.4 % (<5.7)
--- NOTE | 2025-08-26 15:49 | OCONE_ITS ---
Date of service: 08/26/25 Time of Service: 15:49 Assessment and Plan Assessment and plan (1) Septic prepatellar bursitis of right knee: Status: Acute Assessment and plan: 60-year-old male with right knee septic prepatellar bursitis; Significant complicating medical and psychiatric factors. About 4 recent emergency room visits for right knee problems, multiple falls, chest pain, shortness of breath, and psychiatric problems. Prepatellar started after a trauma/fall and abrasion on the anterior lateral knee 2-3 weeks ago. A hinged knee wrap brace was provided, but no antibiotics were started. I cannot tell when it became secondarily infected. Reviewed briefly with ER. Aspiration already done with sample sent for culture. Recommend lancing the small draining area if possible to allow for better decompression/drainage onto generous gauze paddings, which may be changed as needed. Hospitalist admitting the patient for antibiotics. New right knee x-rays show prepatellar knee swelling, similar to the x-rays done 1 week ago, without any deep joint space air or gas. There is also significant knee arthritis present. Lab work shows normal WBC, worsening of chronic anemia to 8.3, ESR mildly elevated at 30, CRP moderately elevated at 2.39, and hemoglobin A1c okay at 6.4. Albumin/protein is quite low. TSH is elevated. N.p.o. after midnight for possible right knee prepatellar bursa incision and drainage. Will reevaluate in the morning and make surgical decision. AM update–patient seen and evaluated. Complains of pressure and discomfort about the prepatellar anterior lateral knee. There is moderately significant edema, there is a more focal dry scab with mild purulent drainage centrally and a larger broader area of skin D squamatization either from resolving cellulitis or healing traumatic abrasion. Grossly intact motor or sensory about the knee foot and ankle. No other focus complaints about this problem. Able to demonstrate reasonable flexion extension of the knee without signs or symptoms of septic knee. Calf is relatively soft and nontender as is the thigh without evidence of DVT. Reviewed surgical option with the patient. Recommend incision and drainage today to definitively treat this septic prepatellar bursitis that failed outpatient management. Patient has multiple risk factors. Decision to proceed with surgery today. The risks, benefits, and alternatives were discussed. Patient was counseled regarding pain management, expected postoperative course, and recovery timeline. All questions were answered. Informed consent was obtained. Patient agreew and understandw treatment plan. Will review with hospitalist team postprocedure. [facility] All Active Problems (Updated 08/26/25 @ 20:35 by JORDANA Holguin) On deep vein thrombosis (DVT) prophylaxis (Acute) Septic prepatellar bursitis of right knee (Acute) Bursitis, prepatellar, right (Acute) Chest pain (Acute) Dental caries (Acute) Nicotine dependence (Acute) Dyspnea on exertion (Acute) Depression (Acute 10/02/14) Chronic headache (Acute) Migraine headache without aura (Chronic) Migraine (Chronic) Poor dentition (Acute) Tobacco use disorder (Chronic) started 2013 1.5 ppd, pipe 1-7/week, QUIT LATE OCT 2021 Allergic rhinitis (Chronic) lortadine Hiatal hernia (Chronic) protonix not effective, nexium works better 02/12/18 Anemia (Chronic) Broken teeth (Chronic) Drug-seeking behavior (Chronic ~09/20/21) Requests Ritalin from providers Medication overuse headache (Acute) Medical History (Updated 08/26/25 @ 20:35 by JORDANA Holguin) Chest pain, unspecified Chest pain, unspecified Suicidal ideation Hypercholesterolemia (09/07/14) pt insists on lipitor 80 mg due to family hx Obesity BMI 52 Hypertension pt requests brand name Tenormin vs atenolol 04/02/18 GERD (gastroesophageal reflux disease) (09/07/14) Diabetes mellitus type 2 in obese (09/09/14) Hypothyroidism (acquired) (09/07/14) Schizoaffective disorder (09/07/14) FREDDIE Thakkar 09/2014- [facility] inpatient Trigeminal neuralgia Anxiety Mitral valve prolapse Surgical History No significant past surgical history Family History Father Heart disease [place] Social History Smoking/Tobacco Use Status: Former Tobacco Use Smoking risk assessment performed?: Yes Alcohol Intake: never Drug use: Never Substance use type: does not use Adopted: No Caregiver/Support person: No Foster care: No Household members: none Housing: apartment Number of Children: 2 number of grandchildren: 1 Communication Needs: Corrective Lenses Education Level: college Do you need help understanding health information?: Always current occupation: Unemployed/Leave of absence Sexually active: No Do you think of yourself as: Decline to provide Current gender identity: male What type of physical activity do you participate in: other Details: weight lifting Frequency: 3-4 times per week Magalie/Baptist: Sikh Seatbelt use: always Drive intox or ride w/intox transfer 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 Results Last Vital Signs Temp 98.3 F 08/26/25 13:21 Pulse 85 08/26/25 13:21 Resp 20 08/26/25 13:21 BP 157/81 H 08/26/25 13:21 Pulse Ox 94 08/26/25 13:21 Labs 08/27/25 07:15 08/27/25 07:15 Labs: Laboratory Results - last 24 hr 08/26/25 14:50 WBC 6.30 RBC 2.71 L Hgb 8.3 L Hct 25.5 L MCV 94 MCH 30.6 MCHC 32.5 RDW 13.8 Plt Count 249 MPV 8.5 Immature Gran % 1.7 Neutrophils % 72.0 Lymphocytes % 16.3 Monocytes % 8.4 Eosinophils % 1.4 Basophils % 0.2 Nucleated RBC % 0.0 Absolute Neutrophils 4.53 Absolute Lymphocytes 1.03 L Absolute Monocytes 0.53 Absolute Eosinophils 0.09 Absolute Basophils 0.01 ESR 30 H VBG Lactate 1.4 Sodium 134 L Potassium 4.6 Chloride 97 L Carbon Dioxide 28.9 Anion Gap 8.1 BUN 8 Creatinine 1.0 Est GFR (CKD-EPI 2020) 86.16 Glucose 91 Hemoglobin A1c 6.4 H Calcium 8.8 Total Bilirubin 0.3 AST 20 ALT 22 Alkaline Phosphatase 87 Troponin I 4 C-Reactive Protein 2.39 H Total Protein 8.1 Albumin 2.5 L TSH 9.33 H Free T4 1.28
--- NOTE | 2025-08-26 16:03 | W.PM.HP.N ---
Date of service: 08/26/25 Time of Service: 16:03 Assessment and Plan Assessment and plan (1) Septic prepatellar bursitis of right knee: Status: Acute Assessment and plan: Since having diagnosed a few days ago now having right knee pain and is unable to hold his weight On Vancomycin and cefazolin Trend WBC, and CRP Orthopedic consult: - OR in a.m. - N.p.o. after midnight (2) Anemia: Status: Chronic Assessment and plan: Will continue to monitor Iron studies Trend CBC (3) Hypertension: Assessment and plan: On home dose regimen (4) GERD (gastroesophageal reflux disease): Assessment and plan: On PPI (5) Obesity: Assessment and plan: Will discuss GLP-1with patient and encourage furhter discussion with primary care provider (6) Nicotine dependence: Status: Acute Assessment and plan: As needed NRT (7) Hypercholesterolemia: Assessment and plan: Continue home dose regimen of statin (8) Hypothyroidism (acquired): Assessment and plan: elevated TSH with normal T4- continue management with outpatient provider Not medicaated as per med list (9) Diabetes mellitus type 2 in obese: Assessment and plan: Point of care glucose monitoring ACHS and SSI coverage AC Hold metformin and other outpatient meds for diabetes management (10) Schizoaffective disorder: Assessment and plan: Continue home medicine regimen (11) Anxiety: Assessment and plan: Ongoing management with home dose clonazepam (12) Mitral valve prolapse: Assessment and plan: History of no decompensation noted (13) On deep vein thrombosis (DVT) prophylaxis: Status: Acute Assessment and plan: On Lovenox hold before OR Discussed with Dr. Ramirez History of Present Illness Narrative: This 60 years old male patient with a past medical history of hyperlipidemia, obesity, hypertension, GERD, diabetes mellitus type 2, hypothyroidism, trigeminal neuralgia, anxiety, mitral valve prolapse schizoaffective disorders and diagnosis of bursitis several days ago presenting to the ED for evaluation of weakness and multiple falls today and right leg pain. No reported loss of consciousness, chest pain, shortness of breath, fevers or chills at the time of arrival. Head CT and C-spine were negative for acute findings. EKG showed sinus rhythm heart rate 74 QTc 477 ms without sign of coronary occlusion, H&H is 8 3 and 25 from 10 and 3315 days ago, ESR 30, and CRP 2.39, chemistry results are without actionable findings, A1c 6.4. Right knee x-ray showed no bony destructive lesions but shows degenerative changes and anterior soft tissue swelling without evidence of fracture. ED provider discussed with Dr. Figueroa and I&D recommended in AM .The patient will be admitted by the hospitalist team to the medical surgical floor for further evaluation and management. The patient will be n.p.o. after midnight and will continue on vancomycin and cefazolin. Patient reports: pain to right knee, falling w//o head strike, no bowel movement for 5 days Patient denies: dizziness, headache, chills, fever, shortness of breath, chest pain, nausea, vomiting, diarrhea, or dysuria CODE STATUS: Full CODE STATUS confirmed Review of Systems All systems reviewed & are unremarkable except as noted in HPI and below PFSH All Active Problems (Updated 08/26/25 @ 17:06 by Cher Garcia APRN) On deep vein thrombosis (DVT) prophylaxis (Acute) Septic prepatellar bursitis of right knee (Acute) Bursitis, prepatellar, right (Acute) Chest pain (Acute) Dental caries (Acute) Nicotine dependence (Acute) Dyspnea on exertion (Acute) Depression (Acute 10/02/14) Chronic headache (Acute) Migraine headache without aura (Chronic) Migraine (Chronic) Poor dentition (Acute) Tobacco use disorder (Chronic) started 2013 1.5 ppd, pipe 1-7/week, QUIT LATE OCT 2021 Allergic rhinitis (Chronic) lortadine Hiatal hernia (Chronic) protonix not effective, nexium works better 02/12/18 Anemia (Chronic) Broken teeth (Chronic) Drug-seeking behavior (Chronic ~09/20/21) Requests Ritalin from providers Medication overuse headache (Acute) Medical History (Updated 08/26/25 @ 17:06 by Cher Garcia APRN) Chest pain, unspecified Chest pain, unspecified Suicidal ideation Hypercholesterolemia (09/07/14) pt insists on lipitor 80 mg due to family hx Obesity BMI 52 Hypertension pt requests brand name Tenormin vs atenolol 04/02/18 GERD (gastroesophageal reflux disease) (09/07/14) Diabetes mellitus type 2 in obese (09/09/14) Hypothyroidism (acquired) (09/07/14) Schizoaffective disorder (09/07/14Nolberto Mariscal, [facility] 09/2014- [facility] inpatient Trigeminal neuralgia Anxiety Mitral valve prolapse Surgical History No significant past surgical history Family History Father Heart disease [place] Social History Smoking/Tobacco Use Status: Former Tobacco Use Smoking risk assessment performed?: Yes Alcohol Intake: never Drug use: Never Substance use type: does not use Adopted: No Caregiver/Support person: No Foster care: No Household members: none Housing: apartment Number of Children: 2 number of grandchildren: 1 Communication Needs: Corrective Lenses Education Level: college Do you need help understanding health information?: Always current occupation: Unemployed/Leave of absence Sexually active: No Do you think of yourself as: Decline to provide Current gender identity: male What type of physical activity do you participate in: other Details: weight lifting Frequency: 3-4 times per week Magalie/Roman Catholic: Confucianist Seatbelt use: always Drive intox or ride w/intox recycling collections 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 Meds Allergies and Home Medications Allergies Allergy/AdvReac Type Severity Reaction Status Date / Time buspirone Allergy Other (See Verified 08/26/25 13:23 Comment) paliperidone Allergy Other (See Verified 08/26/25 13:23 Comment) paroxetine HCl (From Paxil) Allergy Other (See Verified 08/26/25 13:23 Comment) sertraline Allergy Other (See Verified 08/26/25 13:23 Comment) ziprasidone (From Geodon) Allergy Other (See Verified 08/26/25 13:23 Comment) aripiprazole (From Abilify) AdvReac Intermediate INVOLUNTARY Verified 08/26/25 13:23 MUSCLE MOVEMENTS mirtazapine AdvReac Intermediate INVOLUNTARY Verified 08/26/25 13:23 MUSCLE MOVEMENTS risperidone AdvReac Intermediate INVOLUNTARY Verified 08/26/25 13:23 MUSCLE MOVEMENTS enviornmental Allergy Mild Wheezing Uncoded 08/26/25 13:23 Home Medications Medication Instructions Recorded Confirmed Type loratadine 10 mg capsule (Claritin 1 cap PO DAILY #90 tabs 12/16/14 08/26/25 History Liqui-Gel) aspirin,buffered (calcium 325 mg PO DAILY 11/18/16 08/26/25 History carbonate-magnesium) 325 mg tablet benztropine 0.5 mg tablet 0.5 mg PO BID 11/18/16 08/26/25 History lactulose 10 gram/15 mL oral 20 g PO DIRECTED PRN 10/03/20 08/26/25 History solution albuterol sulfate 90 mcg/actuation 2 inh inhalation Q6H PRN shortness 12/15/20 08/26/25 Rx breath activated powder inhaler of breath or wheezing #1 ea multivitamin 1 tab PO DAILY 01/26/21 08/26/25 History clonazepam 0.5 mg tablet See Rx Instructions .Route .COMPLEX 03/04/23 08/26/25 History gabapentin 300 mg capsule 300 mg PO QID 03/27/23 08/26/25 History atenolol 25 mg tablet 75 mg PO DAILY 01/31/24 08/26/25 History divalproex 500 mg tablet,extended 500 mg PO BID 01/31/24 08/26/25 History release 24 hr (Depakote ER) omeprazole 40 mg capsule,delayed 40 mg PO DAILY 01/31/24 08/26/25 History release paliperidone palmitate 117 mg/0.75 117 mg IM Q30D 01/31/24 08/26/25 History mL intramuscular syringe (Invega Sustenna) simvastatin 80 mg tablet 80 mg PO DAILY 03/08/24 08/26/25 History bupropion HCl 75 mg tablet 150 mg PO DAILY 08/04/24 08/26/25 History galcanezumab-gnlm 120 mg/mL 120 mg subcut QMONTH #1 mL 08/04/24 08/26/25 Rx subcutaneous pen injector (Emgality Pen) rimegepant 75 mg disintegrating 75 mg PO ONCE PRN migraine 08/04/24 08/26/25 Rx tablet (Nurtec ODT) headache #8 tabs sumatriptan succinate 100 mg tablet See Rx Instructions PO .COMPLEX #9 08/04/24 08/26/25 Rx tabs fluoxetine 40 mg capsule 80 mg PO DAILY 09/24/24 08/26/25 History metformin 500 mg tablet 500 mg PO BID 09/24/24 08/26/25 History Exam Narrative Exam Narrative: 60-year-old male appearing older then stated age, alert oriented x 4, no focal neurological deficit, moves all 4 extremities, weakness to right lower extremity due to pain, right lower extremity ROM limited due to pain, right knee is red , erythematous and sanguineous drainage noted Unlabored breathing and breath sounds, S1-S2 regular, positive cardiac murmur, abdomen is large nondistended soft nontender, no CVA tenderness. RASS 0, congruent mood and affect Results Labs 08/26/25 14:50 08/26/25 14:50 Labs: Laboratory Results - last 24 hr 08/26/25 14:50 WBC 6.30 RBC 2.71 L Hgb 8.3 L Hct 25.5 L MCV 94 MCH 30.6 MCHC 32.5 RDW 13.8 Plt Count 249 MPV 8.5 Immature Gran % 1.7 Neutrophils % 72.0 Lymphocytes % 16.3 Monocytes % 8.4 Eosinophils % 1.4 Basophils % 0.2 Nucleated RBC % 0.0 Absolute Neutrophils 4.53 Absolute Lymphocytes 1.03 L Absolute Monocytes 0.53 Absolute Eosinophils 0.09 Absolute Basophils 0.01 ESR 30 H VBG Lactate 1.4 Sodium 134 L Potassium 4.6 Chloride 97 L Carbon Dioxide 28.9 Anion Gap 8.1 BUN 8 Creatinine 1.0 Est GFR (CKD-EPI 2020) 86.16 Glucose 91 Hemoglobin A1c 6.4 H Calcium 8.8 Total Bilirubin 0.3 AST 20 ALT 22 Alkaline Phosphatase 87 Troponin I 4 C-Reactive Protein 2.39 H Total Protein 8.1 Albumin 2.5 L TSH 9.33 H Free T4 1.28 Ethyl Alcohol < 3.0 Last Vital Signs Temp 36.8 C 08/26/25 13:21 Pulse 85 08/26/25 13:21 Resp 20 08/26/25 13:21 BP 157/81 H 08/26/25 13:21 Pulse Ox 94 08/26/25 13:21 Time Spent Time spent with Patient: >75 minutes Time was spent: preparing to see the patient(eg.review tests), obtaining and/or reviewing separately otained hiistory, ordering medications,tests, procedures, referring, communicating with other health care nurse rn, indepentently interpreting results, counseling the patient, care coordination and other
[2025-08-26] MEDS: ceFAZolin 2 GM/50 ML BAG IVPB ×2 (16:42→22:05)
[2025-08-26] MEDS: VANCOMYCIN/WATER (PEG) 2 GM/400 ML BAG IVPB (17:21)
[2025-08-26 17:41] LABS: Troponin I 4 ng/L (<or=76)
--- NOTE | 2025-08-26 20:28 | ED.PROG_ITS ---
Date of service: 08/26/25 Time of Service: 16:00 Medical Decision Making This dictation utilizes [id number] dictation software and may contain unedited grammatical errors. 60-year-old male signed out to me by Lucille Farley PA-C, please see her complete note. Essentially this 60-year-old male presents by EMS as he fell twice this morning trying to get out of bed striking his head both times with negative CT he was seen last week and diagnosed with prepatellar bursitis of his right knee and now his right knee is red and has a scabbed over area draining and it appears infected, he is signed out to me with admission already accepted by Dr. Ramirez- awaiting bed upstairs, and will be consulted on by Orthopaedics Dr. Corona on the in-patient side for possible drainage, or OR tomorrow. Patients' medical history: Chest pain, obesity, hypertension, T2DM. Family and social history: Noncontributory, lives independently. Pertinent exam findings / vital signs include read knee with pain to palpation and induration without overt fluid-filled fluctuance with a central scabbed area about 1 cm to the anterior knee draining some serosanguineous fluid, mild erythema stretching outward about 6 cm from this area. Differential / pathologies of concern include septic bursitis. Diagnostic studies of: -Reviewed studies of prior visit- XR R Knee is pending at sign-out. - XR knee shows anterior soft tissue swelling - no gas Interventions of: -None after sign-out, patient moved upstairs. ED Course/Assessment/Plan: 60-year-old male awaiting transfer to [facility] unit for septic prepatellar bursitis of right knee is excepted at time of signout with imaging studies pending, I did speak with Dr. Figueroa at 1630 he states that he will consult on the patient for possible incision and drainage from the inpatient unit, patient required no intervention before he was moved upstairs. Disposition of Septic Prepatellar Bursitis of Right Knee. Patient verbalized understanding of the plan and return to ED criteria and engaged in shared decision making. Medical Records Medical records reviewed: Yes I reviewed the patient's medical records. Imaging Data Radiologic Study: Attestation: I personally reviewed and interpreted this imaging study as follows: Imaging: X-Ray Radiologist's impression: EXAM: XR KNEE RT 3V AP,LAT,MENDY CLINICAL HISTORY: right knee pain and swelling. TECHNIQUE: 2D digital imaging was performed. Three views. COMPARISON: CR XR KNEE RT 3V AP,LAT,MENDY from 08/19/2025 FINDINGS: BONES: No acute fracture is present. No bony destructive lesion is seen. Patellar enthesophytes. JOINTS: There is moderate narrowing of the medial femoral tibial joint space and periarticular spurring. Spurring is also noted there at the articular aspect of the patella. No joint effusion is seen. SOFT TISSUE: Diffuse subcutaneous edema. Focal edema at noted anterior to the patella. IMPRESSION: Anterior soft tissue swelling. No evidence of fracture. Degenerative changes. Radiologic Study #2: Attestation: I personally reviewed and interpreted this imaging study as follows: Imaging: X-Ray Radiologist's impression: EXAM: XR CHEST 2V PA LATERAL CLINICAL HISTORY: fall TECHNIQUE: 2D digital imaging was performed. Two views. COMPARISON: CR XR PORTABLE CHEST AP from 08/12/2025 FINDINGS: HEART: Enlarged. Aorta: Not dilated. PULMONARY VASCULATURE: Normal. MEDIASTINUM: Unremarkable. LUNGS: Clear. PLEURAL SPACE: No pleural effusion or pneumothorax. BONE:Unremarkable for age. SOFT TISSUES: Unremarkable. IMPRESSION: No acute abnormality. Radiologic Study #3: Attestation: I personally reviewed and interpreted this imaging study as follows: Imaging: CT Scan Radiologist's impression: EXAM: CT HEAD CERVICAL SPINE WO CLINICAL HISTORY: fall, [place]. TECHNIQUE: Imaging Protocol: Axial computed tomography images with coronal and sagittal reformatted images were created and reviewed COMPARISON: CT CT BRAIN NECK CTA from 02/11/2025 FINDINGS: Head CT Ventricles and Extra axial spaces: Normal in size and morphology for the patient's age. Hemorrhage: None. Cerebral parenchyma: No evidence of mass or acute infarct. Midline shift: None. Brainstem/Cerebellum: Normal. Calvarium: Normal. Visualized Paranasal sinuses/Mastoids: Clear. Soft tissues: Unremarkable. Cervical Spine CT BONES: Vertebral body heights are maintained. Alignment is normal. There is no evidence of acute fracture. Degenerative disc changes and facet degenerative changes are seen greater in the mid cervical region. SOFT TISSUES: No paraspinal hematoma. The airway appears intact. No pneumothorax is seen at the lung apices. IMPRESSION: Head CT: No acute abnormality. C-spine CT: Degenerative changes, no acute abnormality. Lab Data Lab results reviewed: Yes I reviewed the patient's lab results. Labs: 08/26/25 15:09 Knee - Right Wound Culture - Pending 08/26/25 15:09 Knee - Right Gram Stain - Final Laboratory Tests Range/Units 08/26/25 14:50 WBC (4.4-10.8) 10^3/uL 6.30 RBC (4.36-5.78) 10^6/uL 2.71 L Hgb (13.5-17.5) g/dL 8.3 L Hct (40.0-50.0) % 25.5 L MCV (80-95) fL 94 MCH (27.0-33.0) pg 30.6 MCHC (32.0-36.0) % 32.5 RDW (11.8-14.1) % 13.8 Plt Count (130-400) 10^3/uL 249 MPV (8.0-11.0) fL 8.5 Immature Gran % % 1.7 Neutrophils % % 72.0 Lymphocytes % % 16.3 Monocytes % % 8.4 Eosinophils % % 1.4 Basophils % % 0.2 Nucleated RBC % (0.0-0.3) % 0.0 Absolute Neutrophils (1.2-6.7) 10^3/uL 4.53 Absolute Lymphocytes (1.2-3.4) 10^3/uL 1.03 L Absolute Monocytes (0.1-0.8) 10^3/uL 0.53 Absolute Eosinophils (0.0-0.7) 10^3/uL 0.09 Absolute Basophils (0.0-0.2) 10^3/uL 0.01 ESR (0-20) mm/hr 30 H VBG Lactate (<or=2.0) mmol/L 1.4 Sodium (136-145) mmol/L 134 L Potassium (3.5-5.1) mmol/L 4.6 Chloride (98-107) mmol/L 97 L Carbon Dioxide (21.0-32.0) mmol/L 28.9 Anion Gap (3-11) mmol/L 8.1 BUN (7-18) mg/dL 8 Creatinine (0.70-1.30) mg/dL 1.0 Est GFR (CKD-EPI 2020) (mL/min/1.73m2) 86.16 Glucose (74-106) mg/dL 91 Hemoglobin A1c (<5.7) % 6.4 H Calcium (8.5-10.1) mg/dL 8.8 Total Bilirubin (0.2-1.0) mg/dL 0.3 AST (15-37) U/L 20 ALT (16-63) U/L 22 Alkaline Phosphatase (46-116) U/L 87 Troponin I (<or=76) ng/L 4 C-Reactive Protein (<or=0.5) mg/dL 2.39 H Total Protein (6.4-8.2) g/dL 8.1 Albumin (3.4-5.0) g/dL 2.5 L TSH (0.36-3.74) uIU/mL 9.33 H Free T4 (0.76-1.46) ng/dL 1.28 Ethyl Alcohol (<10) mg/dL < 3.0 Quality:SDOH Health Related Social Needs: Health related social needs inadequate housing risk of homeless food insecurity house/econ circumstance daily activities lonely/isolated Health related social needs details needs help apartme nt will raise rental fee. Discharge Plan Disposition Patient Disposition: Admit to [facility] Condition: Stable Discharge Details Clinical Impression: Septic prepatellar bursitis of right knee Admit Date/Time: 08/26/25 16:21 Admit Provider: Robert Ramirez Attending Provider: Robert Ramirez Primary Care Provider: Brandon Foster ED Provider: Froilan Ordonez
[2025-08-26] MEDS: clonazePAM 1 MG TAB 2 MG PO (21:53)
[2025-08-26] MEDS: Gabapentin 300 MG CAP PO (21:53)
[2025-08-26] MEDS: Divalproex Sodium 500 MG TAB.ER.24H PO (21:53)
[2025-08-26] MEDS: Simvastatin 40 MG TAB 80 MG PO (21:53)
[2025-08-26] MEDS: Normal Saline Flush 10 ML SYR IVP (21:54)
[2025-08-26] MEDS: Benztropine 1 MG TAB 0.5 MG PO (21:54)
[2025-08-26] MEDS: Acetaminophen 500 MG TAB 1000 MG PO (22:04)
[2025-08-27] VITALS (72 sets, daily range): BP systolic 105–157; BP diastolic 68–107; PULSE 63–94; RESP 13–22; TEMP 36–36.5; O2SAT 94–98; BMI 43.2
[2025-08-27] MEDS: ceFAZolin 2 GM/50 ML BAG IVPB ×4 (04:37→23:49)
[2025-08-27] MEDS: Normal Saline Flush 10 ML SYR IVP ×6 (04:37→20:21)
[2025-08-27] MEDS: Water,Injection,Sterile 10 ML VIAL ×3 (05:58→05:59)
[2025-08-27] MEDS: VANCOMYCIN 1,500 MG in Normal Saline 250 ML 166.6666 MG IVPB (05:59)
[2025-08-27 07:30] LABS: Abs Immature Grans 0.08 10^3/uL (0.0-0.06); HCT 25.0 % (40.0-50.0); HGB 8.1 g/dL (13.5-17.5); Immature Grans % 1.7 %; MCH 30.9 pg (27.0-33.0); MCHC 32.4 % (32.0-36.0); MCV 95 fL (80-95); MPV 8.4 fL (8.0-11.0); Platelet Count 220 10^3/uL (130-400); RBC 2.62 10^6/uL (4.36-5.78); RDW 13.7 % (11.8-14.1); RDW-SD 47.1 fL; WBC 4.82 10^3/uL (4.4-10.8)
[2025-08-27 07:53] LABS: Anion Gap 7.1 mmol/L (3-11); BUN 8 mg/dL (7-18); CO2 28.9 mmol/L (21.0-32.0); Calcium 8.0 mg/dL (8.5-10.1); Chloride 98 mmol/L (98-107); Glucose 92 mg/dL (74-106); Potassium 4.2 mmol/L (3.5-5.1); Sodium 134 mmol/L (136-145)
[2025-08-27 07:56] LABS: Iron 43 ug/dL (65-175); Total Iron Binding Capacity 197 ug/dL (250-450); Transferrin Sat 22 % (20-55)
--- NOTE | 2025-08-27 08:01 | W.ANESPRE ---
General Info Date of Service Date Performed: 08/27/25 Height: 6 ft 4 in Weight: 160.9 kg Body Mass Index (BMI): 43.2 Surgical Procedure: Operation Date: 08/27/25 14:40 Proposed Procedure Side Surgeon p Knee I&D Pre Patellar Bursitis Right René Figueroa MD Meds Allergies and Home Medications Allergies Allergy/AdvReac Type Severity Reaction Status Date / Time buspirone Allergy Other (See Verified 08/26/25 13:23 Comment) paliperidone Allergy Other (See Verified 08/26/25 13:23 Comment) paroxetine HCl (From Paxil) Allergy Other (See Verified 08/26/25 13:23 Comment) sertraline Allergy Other (See Verified 08/26/25 13:23 Comment) ziprasidone (From Geodon) Allergy Other (See Verified 08/26/25 13:23 Comment) aripiprazole (From Abilify) AdvReac Intermediate INVOLUNTARY Verified 08/26/25 13:23 MUSCLE MOVEMENTS mirtazapine AdvReac Intermediate INVOLUNTARY Verified 08/26/25 13:23 MUSCLE MOVEMENTS risperidone AdvReac Intermediate INVOLUNTARY Verified 08/26/25 13:23 MUSCLE MOVEMENTS enviornmental Allergy Mild Wheezing Uncoded 08/26/25 13:23 Home Medication Medication Instructions Recorded loratadine 10 mg capsule (Claritin 1 cap PO DAILY #90 tabs 12/16/14 Liqui-Gel) aspirin,buffered (calcium 325 mg PO DAILY 11/18/16 carbonate-magnesium) 325 mg tablet benztropine 0.5 mg tablet 0.5 mg PO BID 11/18/16 lactulose 10 gram/15 mL oral 20 g PO DIRECTED PRN 10/03/20 solution albuterol sulfate 90 mcg/actuation 2 inh inhalation Q6H PRN shortness 12/15/20 breath activated powder inhaler of breath or wheezing #1 ea multivitamin 1 tab PO DAILY 01/26/21 clonazepam 0.5 mg tablet See Rx Instructions .Route .COMPLEX 03/04/23 gabapentin 300 mg capsule 300 mg PO QID 03/27/23 atenolol 25 mg tablet 75 mg PO DAILY 01/31/24 divalproex 500 mg tablet,extended 500 mg PO BID 01/31/24 release 24 hr (Depakote ER) omeprazole 40 mg capsule,delayed 40 mg PO DAILY 01/31/24 release paliperidone palmitate 117 mg/0.75 117 mg IM Q30D 01/31/24 mL intramuscular syringe (Invega Sustenna) simvastatin 80 mg tablet 80 mg PO DAILY 03/08/24 bupropion HCl 75 mg tablet 150 mg PO DAILY 08/04/24 galcanezumab-gnlm 120 mg/mL 120 mg subcut QMONTH #1 mL 08/04/24 subcutaneous pen injector (Emgality Pen) rimegepant 75 mg disintegrating 75 mg PO ONCE PRN migraine 08/04/24 tablet (Nurtec ODT) headache #8 tabs sumatriptan succinate 100 mg tablet See Rx Instructions PO .COMPLEX #9 08/04/24 tabs fluoxetine 40 mg capsule 80 mg PO DAILY 09/24/24 metformin 500 mg tablet 500 mg PO BID 09/24/24 Current Visit Medications: Current Medications Generic Name Dose Route Start Last Admin Trade Name Freq PRN Reason Stop Dose Admin Albuterol Sulfate 2.5 mg 08/26/25 18:43 Albuterol 2.5 Mg/3 Ml Inh Soln Vial UPD Q2H PRN PRN Albuterol/Ipratropium 3 ml 08/26/25 18:43 Albuterol/Ipratropium 3 Ml Upd Vial UPD Q6H PRN PRN Aspirin 325 mg 08/27/25 08:30 Aspirin 325 Mg Tab PO DAILY ADALGISA Atenolol 75 mg 08/27/25 08:30 Atenolol 25 Mg Tab PO DAILY ADALGISA Benztropine Mesylate 0.5 mg 08/26/25 20:00 08/26/25 21:54 Benztropine 1 Mg Tab PO 0.5 mg BID ADALGISA Administration Bupropion HCl 150 mg 08/27/25 08:30 Bupropion 75 Mg Tab PO DAILY ADALGISA Clonazepam 1 mg 08/27/25 08:30 Clonazepam 1 Mg Tab PO DAILY ADALGISA Clonazepam 2 mg 08/26/25 20:00 08/26/25 21:53 Clonazepam 1 Mg Tab PO 2 mg HS ADALGISA Administration Clonazepam 1 mg 08/27/25 12:00 Clonazepam 1 Mg Tab PO DAILY@12 ADALGISA Dextrose 0 gm 08/26/25 17:20 Glucose Oral Gel 15 Gm/37.5 Gm Tube PO DIRECTED PRN Dextrose/Water 0 gm 08/26/25 17:20 Dextrose 50%-Water 25 Gm/50 Ml Syr IVP DIRECTED PRN Divalproex Sodium 500 mg 08/26/25 20:00 08/26/25 21:53 Divalproex Sodium 500 Mg Tab.Er.24h PO 500 mg BID [facility] Administration Enoxaparin Sodium 40 mg 08/28/25 08:30 Enoxaparin 40 Mg/0.4 Ml Syr SC DAILY [facility] Fluoxetine HCl 80 mg 08/27/25 08:30 Fluoxetine 20 Mg Cap PO DAILY [facility] Gabapentin 300 mg 08/26/25 20:00 08/26/25 21:53 Gabapentin 300 Mg Cap PO 300 mg QID ADALGISA Administration Cefazolin Sodium/Dextrose 2 gm in 50 mls @ 100 mls/hr 08/26/25 22:00 08/27/25 07:43 Ancef Duplex IVPB Infused Q6H [facility] Infusion Acetaminophen 1,000 mg in 100 mls @ 400 mls/hr 08/26/25 18:43 Ofirmev IVPB Q6H PRN PRN Vancomycin HCl 1,500 mg/ 250 mls @ 166.6666 mls/hr 08/27/25 06:00 08/27/25 05:59 Sodium Chloride IVPB 166.6666 mls/hr Q12H [facility] Administration IV Miscellaneous Supplies 1 each 08/26/25 18:43 Iv Access IV DIRECTED [facility] Insulin Aspart 0 units 08/27/25 08:00 Insulin Aspart 300 Units/3 Ml Pen SC 0800,1200,1700 [facility] Protocol Lactulose 20 gm 08/27/25 08:30 Lactulose 20 Gm/30 Ml Cup PO DAILY PRN CONSTIPATION Lidocaine HCl 5 ml 08/26/25 16:00 Lidocaine 1% Pres-Free 5 Ml Vial IJ DIRECTED [facility] Loratadine 10 mg 08/27/25 08:30 Loratidine 10 Mg Tab PO DAILY [facility] Multivitamins 1 tab 08/27/25 08:30 Multivitamin Tab PO DAILY [facility] Nicotine 21 mg 08/26/25 17:11 Nicotine 21 Mg/24 Hr Patch TD DAILY PRN PRN Pantoprazole Sodium 40 mg 08/27/25 08:30 Pantoprazole 40 Mg Vial IVP DAILY [facility] Pantoprazole Sodium 40 mg 08/27/25 07:30 Pantoprazole 40 Mg Tabcr PO DAILY@0730 [facility] Polyethylene Glycol 17 gm 08/26/25 18:43 Polyethylene Glycol 3350 17 Gm Packet PO DAILY PRN PRN Constipation Simvastatin 80 mg 08/26/25 20:00 08/26/25 21:53 Simvastatin 40 Mg Tab PO 80 mg QPM ADALGISA Administration Sodium Chloride 0 ml 08/26/25 18:43 08/27/25 04:37 Normal Saline Flush 10 Ml Syr IVP 20 ml PRN PRN Administration Sodium Chloride 0 ml 08/26/25 20:00 08/26/25 21:54 Normal Saline Flush 10 Ml Syr IVP 10 ml BID ADALGISA Administration Sodium Chloride 0 ml 08/26/25 18:43 Normal Saline 10 Ml Vial IJ DIRECTED PRN Sumatriptan Succinate 100 mg 08/26/25 19:08 Sumatriptan 50 Mg Tab PO PRN PRN MIGRAINE PFSH Active Problems Active Problems: Problem Status Onset Code On deep vein thrombosis (DVT) prophylaxis Acute Z79.899 Septic prepatellar bursitis of right knee Acute M71.161 Bursitis, prepatellar, right Acute M70.41 Chest pain Acute R07.9 Dental caries Acute K02.9 Nicotine dependence Acute F17.200 Dyspnea on exertion Acute R06.09 Depression Acute 10/02/14 F32.9 Chronic headache Acute R51.9, G89.29 Migraine headache without aura Chronic G43.009 Migraine Chronic G43.909 Poor dentition Acute K08.9 Tobacco use disorder Chronic F17.200 Allergic rhinitis Chronic J30.9 Hiatal hernia Chronic K44.9 Anemia Chronic D64.9 Broken teeth Chronic S02.5XXA Drug-seeking behavior Chronic ~09/20/21 Z76.5 Medication overuse headache Acute G44.40 Medical History Medical History (Updated 08/26/25 @ 20:35 by JORDANA Holguin) Chest pain, unspecified Chest pain, unspecified Suicidal ideation Hypercholesterolemia (09/07/14) pt insists on lipitor 80 mg due to family hx Obesity BMI 52 Hypertension pt requests brand name Tenormin vs atenolol 04/02/18 GERD (gastroesophageal reflux disease) (09/07/14) Diabetes mellitus type 2 in obese (09/09/14) Hypothyroidism (acquired) (09/07/14) Schizoaffective disorder (09/07/14) Rebekah Mariscal [facility] 09/2014- [facility] inpatient Trigeminal neuralgia Anxiety Mitral valve prolapse Surgical History Surgical History No significant past surgical history Tobacco Smoking/Tobacco Use Status: Former Tobacco Use Alcohol Alcohol Intake: never Substance Use Substance use: Never Substance use type: does not use Vital Signs and Lab Results Vital Signs Most Recent Vital Signs in EMR: Most Recent Vital Signs Temp Pulse Resp BP Pulse Ox 36.0 C L 74 20 147/77 H 96 08/26/25 22:54 08/26/25 22:54 08/26/25 22:54 08/26/25 22:54 08/26/25 22:54 Point of Care Results Point of Care Results: Finger Stick Blood Glucose 87 08/27/25 07:51 Lab Results 08/27/25 07:15 08/27/25 07:15 Complete Blood Count: WBC, (4.4-10.8) 4.82 10^3/uL Today, 07:15 RBC, (4.36-5.78) 2.62 10^6/uL L Today, 07:15 Hgb, (13.5-17.5) 8.1 g/dL L Today, 07:15 Hct, (40.0-50.0) 25.0 % L Today, 07:15 Plt Count, (130-400) 220 10^3/uL Today, 07:15 VBG Lactate, (<or=2.0) 1.4 mmol/L 08/26/25, 14:50 Complete Metabolic Panel: Sodium, (136-145) 134 mmol/L L Today, 07:15 Potassium, (3.5-5.1) 4.2 mmol/L Today, 07:15 Chloride, (98-107) 98 mmol/L Today, 07:15 Carbon Dioxide, (21.0-32.0) 28.9 mmol/L Today, 07:15 BUN, (7-18) 8 mg/dL Today, 07:15 Creatinine, (0.70-1.30) 0.9 mg/dL Today, 07:15 Est GFR (CKD-EPI 2020), (mL/min/1.73m2) 97.78 Today, 07:15 Magnesium, (1.8-2.4) 1.9 mg/dL 08/12/25, 15:25 Calcium, (8.5-10.1) 8.0 mg/dL L Today, 07:15 Albumin, (3.4-5.0) 2.5 g/dL L 08/26/25, 14:50 Glucose, (74-106) 92 mg/dL Today, 07:15 Hemoglobin A1c, (<5.7) 6.4 % H 08/26/25, 14:50 C-Reactive Protein, (<or=0.5) 2.39 mg/dL H 08/26/25, 14:50 Liver Function Panel: ALT, (16-63) 22 U/L 08/26/25, 14:50 AST, (15-37) 20 U/L 08/26/25, 14:50 Coagulation Panel: D-Dimer, (<500) 902 ng/mlFEU H 08/12/25, 15:34 Cardiac Panel: Troponin I, (<or=76) 4 ng/L 08/26/25 Thyroid Panel: TSH, (0.36-3.74) 9.33 uIU/mL H 08/26/25, 14:50 Toxicology Panel: Ethyl Alcohol, (<10) < 3.0 mg/dL 08/26/25, 14:50 Anesthesia Assessment and Plan Anesthesia History Personal History: No History of Anesthesia Complications Family History: No Family History of Anesthesia Complications Exercise Tolerance Exercise Tolerance: Metabolic Equivalents>4 Cardiac & Pulmonary Exam Cardiac Exam: Normal S1/S2 Heart Sounds Pulmonary Exam: Clear Bilateral Breath Sounds Implantable Cardiac Device Does patient have a Pacemaker or an ICD?: No Airway Exam Known Difficult Airway: No Mallampati Class: 4 Mouth Opening: Narrow (< 3cm) Thyromental Distance: Less than 3 cm Neck Range of Motion: Limited ROM Neck Circumference: Thick Teeth Condition: Generalized Poor Dentition Airway Comments: few tooth stubs remain, one prominent front top tooth in place. ASA Classification ASA Score: ASA 3 Emergency Case?: No NPO Status NPO Status: NPO Clears >2 hours, Solids >8 hours Anesthesia Plan Resuscitation Status: Full Code Anesthesia Technique: General Anesthesia Airway Planned: Endotracheal Tube Monitors Used: Standard Monitors Preoperative Comments:: 60 yo to OR for ? infected prepatellar bursa. currently inpt, receiving vanco and cefazolin. Sig PMHx: HTN (unsure of medications for this), MVP, GERD (on PPI), anemia (8.1 currently), hypothyroid (not on replacement), DM2 (A1c 6.4), BMI >40, trigeminal neuralgia, schizoaffective, anxiety Former smoker. No EtOH. ECG: sinus. ECHO: LVEF 60-65%. Borderline LVH. Mild MR. Neck CTA: no sig stenosis. PFTs: air trapping, no obstruction ? asthma. Low FVC ? r/t obesity.
[2025-08-27] MEDS: Benztropine 1 MG TAB 0.5 MG PO ×2 (08:34→20:13)
[2025-08-27] MEDS: clonazePAM 1 MG TAB PO ×2 (08:35→12:04)
[2025-08-27] MEDS: Divalproex Sodium 500 MG TAB.ER.24H PO ×2 (08:35→20:13)
[2025-08-27] MEDS: FLUoxetine 20 MG CAP 80 MG PO (08:36)
[2025-08-27] MEDS: Loratidine 10 MG TAB PO (08:37)
[2025-08-27] MEDS: Gabapentin 300 MG CAP PO ×4 (08:37→20:13)
[2025-08-27] MEDS: Multivitamin TAB 1 TAB PO (08:38)
[2025-08-27] MEDS: Pantoprazole 40 MG VIAL IVP (08:39)
[2025-08-27] MEDS: Normal Saline 10 ML VIAL IJ (08:40)
[2025-08-27] MEDS: Atenolol 25 MG TAB 75 MG PO (08:59)
[2025-08-27 09:25] LABS: Glucose Negative (Negative)
[2025-08-27 09:33] LABS: Cannabinoids THC Negative (Negative)
--- NOTE | 2025-08-27 11:04 | W.PC.ACHO ---
Registration Status: ADM IN Primary Language: Preferred Language: Armenian ED Information & Data Chief Complaint AMS/LOC 08/26/25 15:40 Triage Note PT states that he fell twice 08/26/25 13:17 this morning while trying to get out of bed, striking the front of his head both times (no obvious injury on head). PT is not sure when this happened. EMS reports that providers on scene found the PT on the ground apparently more confused than normal. Slurred speech noted on triage, PT states its because his mouth is dry . PT being treated for infection in R knee that is causing pain. Medical / Surgical History (Last Updated 08/26/25 @ 17:06 by Cher Garcia APRN) Chest pain, unspecified Chest pain, unspecified Suicidal ideation Hypercholesterolemia (09/07/14) Obesity Hypertension GERD (gastroesophageal reflux disease) (09/07/14) Diabetes mellitus type 2 in obese (09/09/14) Hypothyroidism (acquired) (09/07/14) Schizoaffective disorder (09/07/14) Trigeminal neuralgia Anxiety Mitral valve prolapse (Last Reviewed 08/20/25 @ 08:18 by Fang Eubanks NP) No significant past surgical history Most Recent Vital Signs Temperature 36.5 C 08/26/25 18:44 Temperature Source Temporal Artery Scan 08/26/25 18:44 Pulse 95 H 08/26/25 18:44 Pulse 76 08/26/25 17:20 Respiratory Rate 18 08/26/25 18:44 Blood Pressure 145/115 H 08/26/25 18:44 Blood Pressure Mean 125 08/26/25 18:44 Blood Pressure Position Sitting 08/26/25 13:21 Pulse Oximetry 100 08/26/25 18:44 Oxygen Delivery Method Room Air 08/26/25 18:44 Oxygen Flow Rate 0 08/26/25 18:44 Allergies buspirone Allergy (Verified 08/26/25 13:23) Other (See Comment) paliperidone Allergy (Verified 08/26/25 13:23) Other (See Comment) paroxetine HCl (From Paxil) Allergy (Verified 08/26/25 13:23) Other (See Comment) sertraline Allergy (Verified 08/26/25 13:23) Other (See Comment) ziprasidone (From Geodon) Allergy (Verified 08/26/25 13:23) Other (See Comment) [facility] Adverse Reaction (Intermediate, Verified 08/26/25 13:23) INVOLUNTARY MUSCLE MOVEMENTS mirtazapine Adverse Reaction (Intermediate, Verified 08/26/25 13:23) INVOLUNTARY MUSCLE MOVEMENTS risperidone Adverse Reaction (Intermediate, Verified 08/26/25 13:23) INVOLUNTARY MUSCLE MOVEMENTS enviornmental Allergy (Mild, Uncoded 08/26/25 13:23) Wheezing IV IV Catheter Type [] Peripheral IV IV Catheter Type [Right Peripheral IV Antecubital] IV Catheter Gauge [] 18 IV Catheter Gauge [Right 18 Antecubital] Diet Orders Category Date Time Status Diabetes Consistent CHO/Heart Healthy [DIET] Nutrition 08/26/25 Dinner Active npo [Nothing Per Oral] [DIET] Nutrition 08/27/25 00:01 Ordered Diagnostics 08/26/25 08/26/25 Range/Units 17:10 14:50 WBC 6.30 (4.4-10.8) 10^3/uL RBC 2.71 L (4.36-5.78) 10^6/uL Hgb 8.3 L (13.5-17.5) g/dL Hct 25.5 L (40.0-50.0) % MCV 94 (80-95) fL MCH 30.6 (27.0-33.0) pg MCHC 32.5 (32.0-36.0) % RDW 13.8 (11.8-14.1) % Plt Count 249 (130-400) 10^3/uL MPV 8.5 (8.0-11.0) fL Immature Gran % 1.7 % Neutrophils % 72.0 % Lymphocytes % 16.3 % Monocytes % 8.4 % Eosinophils % 1.4 % Basophils % 0.2 % Nucleated RBC % 0.0 (0.0-0.3) % Absolute Neutrophils 4.53 (1.2-6.7) 10^3/uL Absolute Lymphocytes 1.03 L (1.2-3.4) 10^3/uL Absolute Monocytes 0.53 (0.1-0.8) 10^3/uL Absolute Eosinophils 0.09 (0.0-0.7) 10^3/uL Absolute Basophils 0.01 (0.0-0.2) 10^3/uL ESR 30 H (0-20) mm/hr VBG Lactate 1.4 (<or=2.0) mmol/L Sodium 134 L (136-145) mmol/L Potassium 4.6 (3.5-5.1) mmol/L Chloride 97 L (98-107) mmol/L Carbon Dioxide 28.9 (21.0-32.0) mmol/L Anion Gap 8.1 (3-11) mmol/L BUN 8 (7-18) mg/dL Creatinine 1.0 (0.70-1.30) mg/dL Est GFR (CKD-EPI 2020) 86.16 (mL/min/1.73m2) Glucose 91 (74-106) mg/dL Hemoglobin A1c 6.4 H (<5.7) % Calcium 8.8 (8.5-10.1) mg/dL Total Bilirubin 0.3 (0.2-1.0) mg/dL AST 20 (15-37) U/L ALT 22 (16-63) U/L Alkaline Phosphatase 87 (46-116) U/L Troponin I 4 4 (<or=76) ng/L C-Reactive Protein 2.39 H (<or=0.5) mg/dL Total Protein 8.1 (6.4-8.2) g/dL Albumin 2.5 L (3.4-5.0) g/dL TSH 9.33 H (0.36-3.74) uIU/mL Free T4 1.28 (0.76-1.46) ng/dL Ethyl Alcohol < 3.0 (<10) mg/dL 08/26/25 15:09 Wound Culture - Pending Knee - Right Gram Stain - Final Intake and Output - 24 Hour Total 08/26/25 13:07 thru 08/26/25 17:13 Intake Total 60 Balance 60 Weight 147.418 kg Intake: IV 60 Falls Risk Assessment History of Falls No History 08/26/25 13:21 Contributing Factors No Factors 08/26/25 13:21 Ambulatory Aids Independent 08/26/25 13:21 Tubes/Lines None 08/26/25 13:21 Gait Evaluation No gait disturbance 08/26/25 13:21 Cognition No cognitive impairment 08/26/25 13:21 Fall Total Score 0 08/26/25 13:21 Level of Risk Standard/Low Risk 08/26/25 13:21 Problems (Last Updated 08/26/25 @ 17:06 by Cher Garcia APRN) On deep vein thrombosis (DVT) prophylaxis (Acute) Septic prepatellar bursitis of right knee (Acute) Nicotine dependence (Acute) Anemia (Chronic) v v v v v v v v v Sending and/or Receiving Nurses: Please use comment section below to note any information pertinent to the patient hand-off not included above. Information / Comments: Pt alert, oriented, verbal, ambulatory, multiple falls and rt knee injury from fall, fluid aspirated from knee for culture. IV placed by u/s, received IV ABX x2. Report received from:Dannielle Sotelo RN
[2025-08-27] MEDS: Lactated Ringers 1,000 ML 75 ML IV (11:13)
--- NOTE | 2025-08-27 11:14 | W.PM.PROGNOT ---
Date of Service Date of service: 08/27/25 Time of Service: 11:14 Assessment and Plan Assessment and plan (1) Septic prepatellar bursitis of right knee: Status: Acute Assessment and plan: Since having diagnosed a few days ago now having right knee pain and is unable to hold his weight Ongoing Vancomycin and cefazolin pending cultures Trending WBC, and CRP Orthopedic consult: - OR completed today with Dr. Figueroa - wound Cx sent to lab -Diet resumed (2) Anemia: Status: Chronic Assessment and plan: stable Iron studies Fe low but TIBC 197 transferrin pending Trend CBC (3) Hypertension: Assessment and plan: continue home regimen (4) GERD (gastroesophageal reflux disease): Assessment and plan: Continue PPI (5) Obesity: Assessment and plan: Discussed GLP-1with patient and encourage further discussion with primary care provider (6) Nicotine dependence: Status: Acute Assessment and plan: PRN NRT (7) Hypercholesterolemia: Assessment and plan: Continue home statin (8) Hypothyroidism (acquired): Assessment and plan: high TSH with normal T4- continue management with outpatient provider Not medicaated as per med list (9) Diabetes mellitus type 2 in obese: Assessment and plan: Continue point of care glucose monitoring AC & HS and SSI coverage AC Continue hold metformin and other outpatient meds for diabetes management (10) Schizoaffective disorder: Assessment and plan: Ongoing home medicine regimen (11) Anxiety: Assessment and plan: continue home dose clonazepam (12) Mitral valve prolapse: Assessment and plan: History of no decompensation noted (13) On deep vein thrombosis (DVT) prophylaxis: Status: Acute Assessment and plan: On Lovenox resume in AM Discussed with Dr. Ramirez Subjective Subjective Patient reports: no new complaints, feels better, tolerating liquids well, tolerating a regular diet, voiding w/o difficulty and no bowel movement; denies diarrhea, vomiting, shortness of breath or fever Interval history since last seen: NPO this AM now on diet s/p OR Exam Narrative Exam Narrative: 60-year-old male looking older then stated age, calm and cooperative ,alert oriented x 4, no focal neurological deficit, moves all 4 extremities, right lower extremity ROM limited due to pain, right knee is red , improving erythema not sanguineous drainage noted today Unlabored breathing and breath sounds, S1-S2 regular, abdomen is large nondistended soft nontender, no CVA tenderness. RASS 0, congruent mood and affect Objective Last Vital Signs Temp 36 C L 08/27/25 07:25 Pulse 73 08/27/25 08:57 Resp 20 08/27/25 07:25 BP 124/71 08/27/25 08:57 Pulse Ox 98 08/27/25 07:25 Laboratory Results - last 24 hr 08/26/25 08/26/25 08/27/25 14:50 17:10 07:15 WBC 6.30 4.82 RBC 2.71 L 2.62 L Hgb 8.3 L 8.1 L Hct 25.5 L 25.0 L MCV 94 95 MCH 30.6 30.9 MCHC 32.5 32.4 RDW 13.8 13.7 Plt Count 249 220 MPV 8.5 8.4 Immature Gran % 1.7 1.7 Neutrophils % 72.0 59.9 Lymphocytes % 16.3 25.1 Monocytes % 8.4 9.8 Eosinophils % 1.4 3.1 Basophils % 0.2 0.4 Nucleated RBC % 0.0 0.0 Absolute Neutrophils 4.53 2.89 Absolute Lymphocytes 1.03 L 1.21 Absolute Monocytes 0.53 0.47 Absolute Eosinophils 0.09 0.15 Absolute Basophils 0.01 0.02 ESR 30 H VBG Lactate 1.4 Sodium 134 L 134 L Potassium 4.6 4.2 Chloride 97 L 98 Carbon Dioxide 28.9 28.9 Anion Gap 8.1 7.1 BUN 8 8 Creatinine 1.0 0.9 Est GFR (CKD-EPI 2020) 86.16 97.78 Glucose 91 92 Hemoglobin A1c 6.4 H Calcium 8.8 8.0 L Iron 43 L TIBC 197 L Transferrin % Sat 22 Total Bilirubin 0.3 AST 20 ALT 22 Alkaline Phosphatase 87 Troponin I 4 4 C-Reactive Protein 2.39 H Total Protein 8.1 Albumin 2.5 L TSH 9.33 H Free T4 1.28 Urine Color Urine Clarity Urine pH Ur Specific Thompson Urine Protein Urine Ketones Urine Blood Urine Nitrite Urine Bilirubin Urine Urobilinogen Ur Leukocyte Esterase Urine Glucose Urine Opiates Screen Urine Methadone Screen Ur Barbiturates Screen Ur Tricyclics Screen Ur Amphetamines Screen U Benzodiazepines Scrn Urine Cocaine Screen Ur THC Screen Ethyl Alcohol < 3.0 08/27/25 09:10 WBC RBC Hgb Hct MCV MCH MCHC RDW Plt Count MPV Immature Gran % Neutrophils % Lymphocytes % Monocytes % Eosinophils % Basophils % Nucleated RBC % Absolute Neutrophils Absolute Lymphocytes Absolute Monocytes Absolute Eosinophils Absolute Basophils ESR VBG Lactate Sodium Potassium Chloride Carbon Dioxide Anion Gap BUN Creatinine Est GFR (CKD-EPI 2020) Glucose Hemoglobin A1c Calcium Iron TIBC Transferrin % Sat Total Bilirubin AST ALT Alkaline Phosphatase Troponin I C-Reactive Protein Total Protein Albumin TSH Free T4 Urine Color Yellow Urine Clarity Clear Urine pH 6.0 Ur Specific Thompson 1.015 Urine Protein Negative Urine Ketones Negative Urine Blood Negative Urine Nitrite Negative Urine Bilirubin Negative Urine Urobilinogen 2.0 H Ur Leukocyte Esterase Negative Urine Glucose Negative Urine Opiates Screen Negative Urine Methadone Screen Negative Ur Barbiturates Screen Negative Ur Tricyclics Screen Negative Ur Amphetamines Screen Negative U Benzodiazepines Scrn Negative Urine Cocaine Screen Negative Ur THC Screen Negative Ethyl Alcohol Time Spent with Patient Time Spent with Patient: >50 minutes Time was spent: preparing to see the patient(eg.review tests), obtaining and/or reviewing separately otained hiistory, ordering medications,tests, procedures, referring, communicating with other health weekend caregiver, indepentently interpreting results, counseling the patient, care coordination and other
[2025-08-27] MEDS: Bupivacaine 0.25% Pres-Free W/EPI 30 ML VIAL (13:24)
[2025-08-27] MEDS: Vancomycin 1,000 MG VIAL 1000 MG (13:37)
--- NOTE | 2025-08-27 14:19 | W.ANESPOSTOP ---
Postoperative Evaluation Date, Time and Location Date Performed: 08/27/25 Time Performed: 14:20 Patient Location: PACU Vital Signs Most Recent Imported Vital Signs: Most Recent Vital Signs Temp Pulse Resp BP Pulse Ox 36.5 C 63 15 154/107 H 96 08/27/25 14:16 08/27/25 14:16 08/27/25 14:16 08/27/25 14:16 08/27/25 14:16 Pain Score Most Recent Pain Score: Most Recent Pain Score Pain Level [Right Upper 5 08/27/25 07:25 Lateral Thigh] Pain Level 0 08/27/25 14:13 Assessment Mental Status: Awake (Alert & Oriented to Patient Baseline) Airway and Respiratory Function: Patent airway with normal (patient baseline) respiratory exam Cardiovascular Function: Hemodynamically Stable Hydration Status: Adequately Hydrated Nausea & Vomiting: No Nausea or Vomiting Pain: Pt. Denies Any Pain Peripheral Nerve Block: Patient did not receive a nerve block
--- NOTE | 2025-08-27 14:33 | W.PM.OP ---
Operative Note Operative Note PRE-OP DIAGNOSIS: Right knee septic bursitis POST-OP DIAGNOSIS: same PROCEDURE: Right knee excision prepatellar bursa, CPT #08422 SURGEON: René Figueroa HIGHWALL DRILL OPERATOR: None None ANESTHESIA TYPE: Local By Surgeon and General:No Airway Refer to Anesthesia Record ESTIMATED BLOOD LOSS: 10 PATHOLOGY: other (2x cultures) COMPLICATIONS: None Patient was transported to: PACU Patient's condition: stable Indications: Please see complete medical record for details. Findings: Largely resolved active infection with significant prepatellar bursa necrotic and malodorous material likely combination of old infection, pus, and fat/bursa necrosis Procedure Description: In the operating room, general anesthesia was induced. The patient was positioned supine on the operating room table. All bony prominences were well-padded. Preoperative antibiotics were administered. The knee was prepped and draped in the usual sterile fashion. The correct patient, procedure, and side of the procedure were all verified prior to incision. The right knee had about a 2 x 2 circular area of almost opening where there was some drainage with this and necrotic tissue and soft scab removed with a Taylor exposing this hole to the prepatellar bursa. Expression did not reveal too much purulence. 2 sets of aerobic and anaerobic cultures were obtained. A Taylor was then used circumferentially through this opening about the prepatellar bursa taking care to break up any residual adhesions and remove any and all infected and necrotic material. The Taylor was alternated with the Yankauer suction, fingertip, and cystoscopy tubing irrigation until the area was thoroughly cleaned, working through the hole normal-sparkle appeared tissue. And following the irrigation the whole area and deep space appeared well cleansed and reasonably viable with light bleeding surface and surrounding this skin area. The knee was flexed and there was no expression of joint fluid. There had been no communication appreciated into the joint preoperatively or during the irrigation and debridement. 1 g of vancomycin powder was distributed through the opening into the prepatellar space. Xeroform was applied over the wound followed by gauze ABD and secured with Case bandage. The patient awoke from anesthesia without complication and was transferred to the recovery room in a stable condition. The patient was signed out to the hospitalist medical team with my care focusing on this knee infection. I do not have any plans for repeat surgery. Continue antibiotics until clearly improved and the chronic wound/opening is healing over. Orders placed for daily wound care changing the dressing until dry. Allow to heal by secondary intention given the chronicity and risk factors for reaccumulation and recurrent infection. Consider outpatient wound care if needed. Date of Procedure: 08/27/25
--- NOTE | 2025-08-27 15:59 | PHA.REVIEW2 ---
Pharmacy Admission Review Admission Clinical Review Admission Pharmacy Review: On deep vein thrombosis (DVT) prophylaxis (Acute) Septic prepatellar bursitis of right knee (Acute) Nicotine dependence (Acute) buspirone Allergy (Verified 08/26/25 13:23) Other (See Comment) paliperidone Allergy (Verified 08/26/25 13:23) Other (See Comment) paroxetine HCl (From Paxil) Allergy (Verified 08/26/25 13:23) Other (See Comment) sertraline Allergy (Verified 08/26/25 13:23) Other (See Comment) ziprasidone (From Geodon) Allergy (Verified 08/26/25 13:23) Other (See Comment) aripiprazole (From Abilify) Adverse Reaction (Intermediate, Verified 08/26/25 13:23) INVOLUNTARY MUSCLE MOVEMENTS mirtazapine Adverse Reaction (Intermediate, Verified 08/26/25 13:23) INVOLUNTARY MUSCLE MOVEMENTS risperidone Adverse Reaction (Intermediate, Verified 08/26/25 13:23) INVOLUNTARY MUSCLE MOVEMENTS enviornmental Allergy (Mild, Uncoded 08/26/25 13:23) Wheezing Resuscitation Status Full Code Height 6 ft 4 in Weight 160.9 kg Comments Comments/Follow Ups: POD #0 Right knee excision prepatellar bursa, CPT #77952 Pharmacy Admission Review Renal Dosing Renal Dosing: BUN 8 mg/dL (7-18) 08/27/25 07:15 Creatinine 0.9 mg/dL (0.70-1.30) 08/27/25 07:15 Medications needing adjustments: Reviewed (CrCl 129.37 mL/min) List of meds needing interventions: Current medications are okay Anticoagulation Anticoagulation: Hgb 8.1 g/dL (13.5-17.5) L 08/27/25 07:15 Hct 25.0 % (40.0-50.0) L 08/27/25 07:15 Plt Count 220 10^3/uL (130-400) 08/27/25 07:15 Creatinine 0.9 mg/dL (0.70-1.30) 08/27/25 07:15 DVT Prophylaxis: Intervened (changed from DAILY to BID due to BMI > 40) Medications: Enoxaparin (40mg BID) Relevant Labs Relevant Labs: ESR 30 mm/hr (0-20) H 08/26/25 14:50 Sodium 134 mmol/L (136-145) L 08/27/25 07:15 Potassium 4.2 mmol/L (3.5-5.1) 08/27/25 07:15 Chloride 98 mmol/L (98-107) 08/27/25 07:15 C-Reactive Protein 2.39 mg/dL (<or=0.5) H 08/26/25 14:50 Electrolytes, C-Reactive P, ESR: Reviewed DM Control DM Control: Glucose 92 mg/dL (74-106) 08/27/25 07:15 Hemoglobin A1c 6.4 % (<5.7) H 08/26/25 14:50 Finger Stick Blood Glucose 96 1357 Finger Stick Blood Glucose 96 1357 Finger Stick Blood Glucose 95 1156 Finger Stick Blood Glucose 95 1148 Finger Stick Blood Glucose 95 1138 Finger Stick Blood Glucose 95 1138 Finger Stick Blood Glucose 87 0805 DM Control: Reviewed Insulin Dosing, Diabetic Medication: Has order for SS insulin Cardiac Review Cardiac Review: Troponin I 4 ng/L (<or=76) 08/26/25 17:10 BP, HR, EF%: Reviewed (BP and HR WNL) List meds needing interventions: Has order for atenolol 75mg daily QTc Review QTc: Reviewed (477 from 08/26/25) IV to PO Switch IV Medications: Reviewed (cefazolin and vancomycin) Home Meds Home Med List reviewed: Intervened Relevent Home Meds Not ordered & why?: metformin (on hold per H+P), Emgality (monthly), omeprazole (has order for pantoprazole), Invega (monthly) and Nurtec (PRN) Updated bupropion on home med list and updated order - provider aware Current Meds Current Medication Order Review: Intervened Comments: Added 2nd PRN to lactulose order per pharmacy protocol Pharmacy Antibiotic Review Relevant Labs: WBC 4.82 10^3/uL (4.4-10.8) 08/27/25 07:15 Temperature 36.5 C Temperature 36.5 C Temperature 36.4 C Temperature 36.4 C Temperature 36.4 C Temperature 36.3 C Temperature 36.3 C Temperature 36.3 C Temperature 36.2 C Temperature 36 C Microbiology 08/27/25 13:25 Gram Stain - Final Knee - Right 08/27/25 13:25 Gram Stain - Final Knee - Right 08/26/25 15:09 Wound Culture - Preliminary Knee - Right Gram positive marilyn Gram Stain - Final Pharmacy Antibiotic Activity: C/S review and Reviewed, no change Comments: Patient is on cefazolin and vancomycin, day 1 for septic prepatellar bursitis of right knee. Current vancomycin dose is 1500mg q12h with predicted AUC of of 553. Level pending for today at 1600. Will adjust dose as needed based on results. Reached out to provider regarding cefazolin dose. Currently q6h but recommended dosing is q8h for septic arthritis. Waiting to hear back. Comments Comments/Follow Ups: POD #0 Right knee excision prepatellar bursa, CPT #05560
[2025-08-27] MEDS: Aspirin 325 MG TAB PO (16:24)
[2025-08-27 17:03] LABS: Vancomycin, Random 13.1 ug/mL
--- NOTE | 2025-08-27 17:45 | PDOC.CMIN ---
Date of service: 08/27/25 Time of Service: 17:45 Care Management Initial Assmt Initial Assessment Reason for Hospitalization: Septic prepatellar burstitis of right knee Functional Status/Living Situation Patient Presentation: Avery was sleeping soundly when CM attempted to visit with him. Per CANE LOADER, he recently returned from the OR and has been sleeping since. Per report, Avery has been having right knee pain, which is impacting his mobility. He is being treated with IV antibiotics, and cultures are pending, which will help determine his course of treatment. 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 He lives alone in an apartment in [facility], and is independent at baseline. CM will continue to follow. Town of Residence: [place] Resides with: Alone Employment Status: Disabled Instrumental Activities of Daily Living (ADLs): Independent Medications Medication Management: No Issues/Barriers identified Physical Functioning/Mobility Assistive Device: none Advance Directives Advance Directives: Do you have an Advance Directive: N 02/14/23, 09:10 AD On File at [facility]: N 02/14/23, 09:10 Date Asked 08/26/25 Today, 09:03 AD Date Reviewed COLST On File at [facility] COLST Date Scanned Code Status Resuscitation Status Full Code Insurance Coverage/Financial Issues Insurance: [facility] Care Team Visit Care Team Role Provider Type Cher Garcia APRN MD [facility] STAFF PHYSICIAN Brandon Foster Primary Care Provider OSTEOPATHIC DOCTOR Oksana Jung RDN, [facility] Other Providers [employer] René Figueroa MD Other Providers [facility] STAFF PHYSICIAN Perry Holland RDN Other Providers [employer] JORDANA Holguin Emergency Provider PHYSICIANS MORTGAGE FIELD INSPECTOR Robert Ramirez MD Admit Provider [facility] STAFF PHYSICIAN Attending Provider Discharge Potential Discharge Needs: PT Evaluation and Surgical F/U Appt Anticipated Barriers to Discharge: None Identified Patient/Family Education Needs: Review discharge instructions, discuss Ask Me Three Transportation: RCT RCT Transportation: Private vechicle Plan: Anticipate Avery will return home once medically cleared. He may benefit from services, such as RN and PT, for additional support in the home. He will likely transport via private vehicle, RCT. He will follow up with his PCP and discharge plan of care. CM will continue to follow. Social Determinants of Health Screening Will the Patient Participate in the Screening?: Unable to obtain Comments: patient unable to answer housing, etc questions at this time. after listening to patient while on phone with mother, it sounds like the things patient states about his housing situation are not actually accurate. Brittany, patient's case mgr will be here in the am. PFSH All Active Problems (Updated 08/26/25 @ 20:35 by JORDANA Holguin) On deep vein thrombosis (DVT) prophylaxis (Acute) Septic prepatellar bursitis of right knee (Acute) Bursitis, prepatellar, right (Acute) Chest pain (Acute) Dental caries (Acute) Nicotine dependence (Acute) Dyspnea on exertion (Acute) Depression (Acute 10/02/14) Chronic headache (Acute) Migraine headache without aura (Chronic) Migraine (Chronic) Poor dentition (Acute) Tobacco use disorder (Chronic) started 2013 1.5 ppd, pipe 1-7/week, QUIT LATE OCT 2021 Allergic rhinitis (Chronic) lortadine Hiatal hernia (Chronic) protonix not effective, nexium works better 02/12/18 Anemia (Chronic) Broken teeth (Chronic) Drug-seeking behavior (Chronic ~09/20/21) Requests Ritalin from providers Medication overuse headache (Acute) Medical History (Updated 08/26/25 @ 20:35 by JORDANA Hloguin) Chest pain, unspecified Chest pain, unspecified Suicidal ideation Hypercholesterolemia (09/07/14) pt insists on lipitor 80 mg due to family hx Obesity BMI 52 Hypertension pt requests brand name Tenormin vs atenolol 04/02/18 GERD (gastroesophageal reflux disease) (09/07/14) Diabetes mellitus type 2 in obese (09/09/14) Hypothyroidism (acquired) (09/07/14) Schizoaffective disorder (09/07/14) Rebekah Mariscal YENI 09/2014- [facility] inpatient Trigeminal neuralgia Anxiety Mitral valve prolapse Surgical History No significant past surgical history Family History Father Heart disease [place] Social History Smoking/Tobacco Use Status: Former Tobacco Use Smoking risk assessment performed?: Yes Alcohol Intake: never Drug use: Never Substance use type: does not use Adopted: No Caregiver/Support person: No Foster care: No Household members: none Housing: apartment Number of Children: 2 number of grandchildren: 1 Communication Needs: Corrective Lenses Education Level: college Do you need help understanding health information?: Always current occupation: Unemployed/Leave of absence Sexually active: No Do you think of yourself as: Decline to provide Current gender identity: male What type of physical activity do you participate in: other Details: weight lifting Frequency: 3-4 times per week Magalie/Hindu: Zoroastrian Seatbelt use: always Drive intox or ride w/intox company tanker 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
[2025-08-27] MEDS: VANCOMYCIN/WATER (PEG) 1.5 GM/300 ML BAG IVPB (17:57)
[2025-08-27] MEDS: Acetaminophen 500 MG TAB 1000 MG PO (18:01)
[2025-08-27] MEDS: clonazePAM 1 MG TAB 2 MG PO (20:13)
[2025-08-27] MEDS: Simvastatin 40 MG TAB 80 MG PO (20:14)
[2025-08-28] MEDS: Acetaminophen 500 MG TAB 1000 MG PO ×2 (00:43→15:54)
[2025-08-28] MEDS: Polyethylene Glycol 3350 17 GM PACKET PO (00:43)
[2025-08-28] MEDS: VANCOMYCIN/WATER (PEG) 1.5 GM/300 ML BAG IVPB ×2 (06:07→18:39)
[2025-08-28] MEDS: Lactulose 20 GM/30 ML CUP PO (06:09)
[2025-08-28 06:52] LABS: Abs Immature Grans 0.07 10^3/uL (0.0-0.06); HCT 23.3 % (40.0-50.0); HGB 7.5 g/dL (13.5-17.5); Immature Grans % 1.8 %; MCH 30.5 pg (27.0-33.0); MCHC 32.2 % (32.0-36.0); MCV 95 fL (80-95); MPV 8.1 fL (8.0-11.0); Platelet Count 169 10^3/uL (130-400); RBC 2.46 10^6/uL (4.36-5.78); RDW 13.6 % (11.8-14.1); RDW-SD 46.5 fL; WBC 3.95 10^3/uL (4.4-10.8)
[2025-08-28 07:04] LABS: Anion Gap 3.7 mmol/L (3-11); BUN 11 mg/dL (7-18); CO2 30.3 mmol/L (21.0-32.0); Calcium 7.9 mg/dL (8.5-10.1); Chloride 98 mmol/L (98-107); Glucose 119 mg/dL (74-106); Potassium 4.4 mmol/L (3.5-5.1); Sodium 132 mmol/L (136-145)
[2025-08-28 08:12] VITALS: BP 132/77; PULSE 66; RESP 16; TEMP 36.9; O2SAT 95
[2025-08-28] MEDS: ceFAZolin 2 GM/50 ML BAG IVPB ×2 (09:45→18:04)
[2025-08-28] MEDS: Gabapentin 300 MG CAP PO ×4 (09:46→20:13)
[2025-08-28] MEDS: Lactobacillus Acidophilus CAP 1 CAP PO ×3 (09:46→20:13)
[2025-08-28] MEDS: Atenolol 25 MG TAB 75 MG PO (09:46)
[2025-08-28] MEDS: Enoxaparin 40 MG/0.4 ML SYR SC (09:46)
[2025-08-28] MEDS: clonazePAM 1 MG TAB PO (09:47)
[2025-08-28] MEDS: buPROPion-XL 150 MG TABCR 300 MG PO (09:47)
[2025-08-28] MEDS: Pantoprazole 40 MG TABCR PO (09:47)
[2025-08-28] MEDS: Aspirin 325 MG TAB PO (09:47)
[2025-08-28] MEDS: Divalproex Sodium 500 MG TAB.ER.24H PO ×2 (09:47→20:14)
[2025-08-28] MEDS: Loratidine 10 MG TAB PO (09:47)
[2025-08-28] MEDS: Benztropine 1 MG TAB 0.5 MG PO ×2 (09:47→20:13)
[2025-08-28] MEDS: Multivitamin TAB 1 TAB PO (09:48)
[2025-08-28 10:23] LABS: Transferrin 173 mg/dL (201-352)
--- NOTE | 2025-08-28 10:30 | W.PM.PROGNOT ---
Date of Service Date of service: 08/28/25 Time of Service: 11:08 Assessment and Plan Assessment and plan (1) Septic prepatellar bursitis of right knee: Status: Acute Assessment and plan: Since having diagnosed a few days ago now having right knee pain and is unable to hold his weight Ongoing Vancomycin and cefazolin pending cultures. Probiotics changed from daily to TID Trending WBC, and CRP Orthopedic consult: - OR completed today with Dr. Figueroa - Please read notes -OR wound Cx still pending -dressing change dalily as per orders and allow to heal by secondary intention given the chronicity and risk factors for reaccumulation and recurrent infection. -Outpatient control and recovery special tactics PT consult pending (2) Anemia: Status: Chronic Assessment and plan: H&H now 7.5 &23.3 from 8.1&25.0 on 08/27 - At begining of August (08/12) H&H was 10.8 and 33.2, no thrombocytopenia Iron studies Fe mildly low at 43 but TIBC 197 transferrin low at 173 -sat at 22, ferritin, folate, B12 pending despite normal MCV Repeated falls initially linked to R knee septic arthritis and pain, but will complete orthostatic VS and if positive we could establish symptomatic anemia and plan for PRBC transfusion Blood loss source could not be established - will order stool for occult blood Trend CBC (3) Hypertension: Assessment and plan: continue home regimen (4) GERD (gastroesophageal reflux disease): Assessment and plan: Continue PPI (5) Obesity: Assessment and plan: Discussed GLP-1with patient and encourage further discussion with primary care provider (6) Nicotine dependence: Status: Acute Assessment and plan: PRN NRT (7) Hypercholesterolemia: Assessment and plan: Continue home dose statin regimen (8) Hypothyroidism (acquired): Assessment and plan: high TSH with normal T4- Not medicated as per med list outpatient provider f/u (9) Diabetes mellitus type 2 in obese: Assessment and plan: A1C 6.4 Continue finger sticks AC & HS and SSI coverage AC- glucose 95-125 Continue hold metformin and other outpatient meds for diabetes management (10) Schizoaffective disorder: Assessment and plan: Ongoing home medicine regimen (11) Anxiety: Assessment and plan: continue home dose clonazepam (12) Mitral valve prolapse: Assessment and plan: History of no decompensation noted (13) Constipation: Status: Acute Assessment and plan: On PRN lactulose at home - ongoing here No stools X6 days now with surgical intervention w opioids administration will use aggressive bowel managment Lactulose 30 gm now Colace TID (14) Hyponatremia: Status: Inactive Assessment and plan: Na 132 from 134 on admission will restrict fluid to 1000ml/day trend Na (15) On deep vein thrombosis (DVT) prophylaxis: Status: Acute Assessment and plan: On Lovenox resume in AM (16) Discharge planning issues: Status: Acute Assessment and plan: CM planning with community resources PT OT RN on discharge Discussed with Dr. Gould Subjective Subjective Patient reports: feels better, tolerating liquids well, tolerating a regular diet, voiding w/o difficulty, flatus, no bowel movement and afebrile; denies diarrhea, nausea, vomiting or shortness of breath Exam Narrative Exam Narrative: 60-year-old male looking older then stated age, calm and cooperative ,alert oriented x 4, no focal neurological deficit, moves all 4 extremities, right lower extremity ROM limited due to pain, right knee dressing DCI Unlabored breathing and CLEAR breath sounds, S1-S2 regular, abdomen is large nondistended soft nontender, RASS 0, congruent mood and affect Objective Last Vital Signs Temp 36.9 C 08/28/25 08:12 Pulse 66 08/28/25 08:12 Resp 16 08/28/25 08:12 BP 132/77 08/28/25 08:12 Pulse Ox 95 08/28/25 08:12 Laboratory Results - last 24 hr 08/27/25 08/27/25 08/28/25 07:15 16:35 06:44 WBC 3.95 L RBC 2.46 L Hgb 7.5 L Hct 23.3 L MCV 95 MCH 30.5 MCHC 32.2 RDW 13.6 Plt Count 169 MPV 8.1 Immature Gran % 1.8 Neutrophils % 62.2 Lymphocytes % 18.5 Monocytes % 13.7 Eosinophils % 3.3 Basophils % 0.5 Nucleated RBC % 0.0 Absolute Neutrophils 2.46 Absolute Lymphocytes 0.73 L Absolute Monocytes 0.54 Absolute Eosinophils 0.13 Absolute Basophils 0.02 Sodium 132 L Potassium 4.4 Chloride 98 Carbon Dioxide 30.3 Anion Gap 3.7 BUN 11 Creatinine 1.0 Est GFR (CKD-EPI 2020) 86.16 Glucose 119 H Calcium 7.9 L Transferrin 173 L Random Vancomycin 13.1 Time Spent with Patient Time Spent with Patient: >50 minutes Time was spent: preparing to see the patient(eg.review tests), obtaining and/or reviewing separately otained hiistory, ordering medications,tests, procedures, referring, communicating with other health patient care, indepentently interpreting results, counseling the patient, care coordination and other
--- NOTE | 2025-08-28 11:21 | PGE_ITS ---
Date of Service Date of service: 08/28/25 Time of Service: 11:21 Assessment and Plan Assessment and plan (1) Septic prepatellar bursitis of right knee: Status: Acute Assessment and plan: 60-year-old male postop day #1 status post Right knee incision and drainage of septic prepatellar bursitis 08/27/25 Patient sitting comfortably on the edge of the bed. He reports that knee pain and swelling are improved today compared to yesterday. Denies any fevers or chills. Exam of the right knee shows approximately 2x2cm wound with surrounding induration. Unable to express any blood or purulence. Patient demonstrates active knee flexion and extension. Calf is soft and minimally tender without signs of DVT. No signs or symptoms of active infection. Reviewed plan with hospitalist team. Continue antibiotics until clearly improved and the wound/opening is healing over. Daily dressing changes until dry. Allow to heal via secondary intention given the subacute setting to mi nimize risk for reaccumulation and recurrent infection. Follow-up outpatient with primary care and/or general surgery wound care depending on needs. [employer] message or call me with any questions or concerns about this patient. Objective Last Vital Signs Temp 98.4 F 08/28/25 08:12 Pulse 66 08/28/25 08:12 Resp 16 08/28/25 08:12 BP 132/77 08/28/25 08:12 Pulse Ox 95 08/28/25 08:12 Laboratory Results - last 24 hr 08/27/25 08/27/25 08/28/25 07:15 16:35 06:44 WBC 3.95 L RBC 2.46 L Hgb 7.5 L Hct 23.3 L MCV 95 MCH 30.5 MCHC 32.2 RDW 13.6 Plt Count 169 MPV 8.1 Immature Gran % 1.8 Neutrophils % 62.2 Lymphocytes % 18.5 Monocytes % 13.7 Eosinophils % 3.3 Basophils % 0.5 Nucleated RBC % 0.0 Absolute Neutrophils 2.46 Absolute Lymphocytes 0.73 L Absolute Monocytes 0.54 Absolute Eosinophils 0.13 Absolute Basophils 0.02 Sodium 132 L Potassium 4.4 Chloride 98 Carbon Dioxide 30.3 Anion Gap 3.7 BUN 11 Creatinine 1.0 Est GFR (CKD-EPI 2020) 86.16 Glucose 119 H Calcium 7.9 L Transferrin 173 L Random Vancomycin 13.1 Time Spent with Patient Time Spent with Patient: <25 minutes Time was spent: preparing to see the patient(eg.review tests) and indepentently interpreting results
[2025-08-28 13:04] LABS: Folate 6.4 ng/mL (8.6-20.0); Vitamin B12 224 pg/mL (193-986)
[2025-08-28] MEDS: Docusate Sodium 100 MG CAP PO ×2 (13:36→20:13)
[2025-08-28] MEDS: Nicotine 2 MG GUM CH (13:43)
--- NOTE | 2025-08-28 14:00 | CMPROGNOTE_ITS ---
Date of service: 08/28/25 Time of Service: 14:00 Care Management Progress Note Progress Note Text Progress Note Text: Avery was lying in bed when CM met with him. His community service manager, Brittany, was in the room visiting. Brittany expressed some concerns about Avery discharging over the weekend, stating that [facility] delivers his medications Sunday through Sunday, and that on Sunday he is given his weekend medications. Per report, he may be discharge ready over the weekend, as per CHEMICAL DEPENDENCY COUNSELOR, awaiting blood culture results to determine his course of antibiotics; if he can be changed to oral antibiotics, he will be medically ready for discharge. CM requested that Brittany coordinate bringing his weekend medications to [facility], where they can be held pending his discharge. She also stated that he will need a ride and he may not have enough food in his house to get him through the weekend. CM stated that [email or web address] will be arranged for transport, and that he can be sent with a bag of food to support him until he can get some food on his own, or with support. Avery also stated that he has the funds to order a pizza from home, which can be delivered. CM discussed Avery having new HH RN, PT, OT, which Avery is agreeable to; CM communicated this with HH as well. Brittany stated that she will schedule Sada follow up appointment with his PCP. CM will continue to follow. Discharge Potential Discharge Needs: PCP F/U Appt Anticipated Barriers to Discharge: None Identified Patient/Family Education Needs: Review discharge instructions, discuss Ask Me Three Transportation: RCT RCT Transportation: Private vechicle Plan: Anticipate vAery will return home with new orders for HH RN, PT, OT. He will transport via RCT private vehicle, if discharged over the weekend, otherwise [facility] staff will transport him home. He will follow up with Ortho, his PCP, and his discharge plan of care, and will resume community supports. CM will continue to follow. Social Determinants of Health Screening Will the Patient Participate in the Screening?: Unable to obtain Comments: patient unable to answer housing, etc questions at this time. after listening to patient while on phone with mother, it sounds like the things patient states about his housing situation are not actually accurate. Brittany, patient's case resolution specialist will be here in the am.
[2025-08-28] MEDS: Normal Saline Flush 10 ML SYR IVP ×2 (14:18→20:15)
[2025-08-28] MEDS: Lactulose 20 GM/30 ML CUP 30 GM PO (14:29)
--- NOTE | 2025-08-28 14:53 | CHAPLAIN ---
Avery was in bed when I visited. He told me that he's dealing with pain in his right knee. He lives in [facility] [place] and is in touch with family members who live elsewhere, he told me. According to Care Management notes, Avery is followed by [facility] and his pillowcase cleaner visited today. Avery asked about religions services in the hospital, and then about which churches in town will be serving Thanksgiving meals so I shared that information with him.
--- NOTE | 2025-08-28 15:18 | PT.INIE ---
PT Notes Visit Reasons: Septic Arthritis Inpatient Physical Therapy Evaluation Date: 08/28/25 Referring Doctor: Cher Garcia Precautions: FWB, post op R knee drainage for septic patellar bursitis Patient Profile/Admitting Diagnosis: septic arthritis Subjective: Pt admitted following 2 falls at home where his R knee gave out on him. His knee has been problematic for him for quite some time. He had an ortho consult where they discussed a draining procedure which he agreed to. Cultures were obtained at that time and positive for an infection. He reports he lives alone in his home in [facility] with 4 steps to enter but with a railing on both sides. He does not usually have problems walking and does not use any form of AD at baseline. 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 Objective: General Observation: Sitting upright in bed watching TV, happy to work with PT Mental Status: A+Ox4 Pain: not bad Vital Signs: monitored by nursing ROM: Right Lower Extremity: R knee ext and flex AROM is full without increased pain at end range Left Lower Extremity: WNL Strength: Right Lower Extremity: Grossly 4/5 throughout Left Lower Extremity: Grossly 4+/5 throughout Sensation: Notes full feeling in both of his legs Bed Mobility/Transfers: supine to sitting independently sitting to supine independently sitting to standing independently standing to sitting independently Gait: Ambulates 200 ft throughout hallway with RW and SBA - attempted without RW but felt more comfortable using one Balance: Static Sitting: Good Dynamic Sitting: Good Static Standing: Good Dynamic Standing: Good - able to march in place without UE support Special Tests: Mobility Limitations Standardized Measure [facility] AM-PAC 6 clicks Basic Mobility Inpatient Short Form: Raw Score: 21 CMS Score: 28.92% Informed Consent/Education: Patient instructed in purpose of PT consult and plan of care. Assessment: Pt is currently moving well but is requiring the use of a RW for long duration ambulation. Because of this, he was provided with one to take home. He demonstrates only minor strength deficits within his right LE at this time. His ROM seems full as he is able to actively extend and flex without issues. He is able to demonstrate independent bed mobility. He was able to perform stairs today and was taught a step to cycle to decrease the stress on his RLE. He no longer requires PT services and can be d/c'd when medically cleared. It is recommended that he follow up with outpatient PT services to progress with strengthening his RLE and decreasing his RW use. Patient is assessed as a [x] Low 54266 complexity based on the following: History: Low Examination: Low Presentation: Low Decision Making: Low Goals: N/A Plan of Care/Treatment Plan: 1-2x/day, 7 days/week x 1 week. Plan of care has been reviewed with the TEXTILE BROKER providing the service under Physical Therapy direction. Initiate Physical Therapy intervention for strengthening, bed mobility, transfers, gait, stairs, balance training, use of assistive device. DISCHARGE RECOMMENDATIONS: [x] Home with outpatient PT TREATMENT CODE/TIME: Gonzalez Golden ([id number]) x1 - 30 min
[2025-08-28 17:26] VITALS: BP 129/70; BP 145/86; BP 149/87; PULSE 73; PULSE 75; PULSE 81
[2025-08-28] MEDS: Simvastatin 40 MG TAB 80 MG PO (20:13)
[2025-08-28] MEDS: Milk of Magnesia 30 ML CUP PO (20:14)
[2025-08-28] MEDS: clonazePAM 1 MG TAB 2 MG PO (20:14)
[2025-08-29] MEDS: Lactulose 20 GM/30 ML CUP PO (01:25)
[2025-08-29] MEDS: Nicotine 2 MG GUM CH ×2 (01:51→03:36)
[2025-08-29] MEDS: ceFAZolin 2 GM/50 ML BAG IVPB ×2 (01:51→09:02)
[2025-08-29] MEDS: Acetaminophen 500 MG TAB 1000 MG PO (03:35)
[2025-08-29] MEDS: Polyethylene Glycol 3350 17 GM PACKET PO (03:38)
[2025-08-29] MEDS: VANCOMYCIN/WATER (PEG) 1.5 GM/300 ML BAG IVPB (06:28)
[2025-08-29 06:38] LABS: Abs Immature Grans 0.07 10^3/uL (0.0-0.06); HCT 23.0 % (40.0-50.0); HGB 7.5 g/dL (13.5-17.5); Immature Grans % 1.6 %; MCH 30.4 pg (27.0-33.0); MCHC 32.6 % (32.0-36.0); MCV 93 fL (80-95); MPV 8.5 fL (8.0-11.0); Platelet Count 177 10^3/uL (130-400); RBC 2.47 10^6/uL (4.36-5.78); RDW 13.5 % (11.8-14.1); RDW-SD 45.5 fL; WBC 4.41 10^3/uL (4.4-10.8)
[2025-08-29 06:56] LABS: Anion Gap 5.3 mmol/L (3-11); BUN 9 mg/dL (7-18); CO2 28.7 mmol/L (21.0-32.0); Calcium 7.7 mg/dL (8.5-10.1); Chloride 97 mmol/L (98-107); Glucose 125 mg/dL (74-106); Potassium 4.3 mmol/L (3.5-5.1); Sodium 131 mmol/L (136-145)
[2025-08-29 08:51] VITALS: BP 127/73; PULSE 65; RESP 20; TEMP 35.9; O2SAT 95
[2025-08-29] MEDS: Enoxaparin 40 MG/0.4 ML SYR SC (08:53)
[2025-08-29] MEDS: Multivitamin TAB 1 TAB PO (08:54)
[2025-08-29] MEDS: Docusate Sodium 100 MG CAP PO ×2 (08:54→13:41)
[2025-08-29] MEDS: Benztropine 1 MG TAB 0.5 MG PO (08:54)
[2025-08-29] MEDS: Pantoprazole 40 MG TABCR PO (08:54)
[2025-08-29] MEDS: FLUoxetine 20 MG CAP 80 MG PO (08:54)
[2025-08-29] MEDS: Aspirin 325 MG TAB PO (08:54)
[2025-08-29] MEDS: clonazePAM 1 MG TAB PO ×2 (08:54→12:08)
[2025-08-29] MEDS: Divalproex Sodium 500 MG TAB.ER.24H PO (08:54)
[2025-08-29] MEDS: Lactobacillus Acidophilus CAP 1 CAP PO ×2 (08:54→13:41)
[2025-08-29] MEDS: Loratidine 10 MG TAB PO (08:55)
[2025-08-29] MEDS: Gabapentin 300 MG CAP PO ×2 (08:55→12:08)
[2025-08-29] MEDS: buPROPion-XL 150 MG TABCR 300 MG PO (08:55)
[2025-08-29] MEDS: Normal Saline Flush 10 ML SYR IVP (08:55)
[2025-08-29] MEDS: Atenolol 25 MG TAB 75 MG PO (08:55)
--- NOTE | 2025-08-29 10:32 | W.PM.DS.N ---
Date of service: 08/29/25 Time of Service: 14:31 DS: Diagnosis Discharge Diagnosis (1) Septic prepatellar bursitis of right knee: Status: Acute (2) Anemia: Status: Chronic (3) Hypertension: (4) GERD (gastroesophageal reflux disease): (5) Obesity: (6) Nicotine dependence: Status: Acute (7) Hypercholesterolemia: (8) Hypothyroidism (acquired): (9) Diabetes mellitus type 2 in obese: (10) Schizoaffective disorder: (11) Anxiety: (12) Mitral valve prolapse: (13) Constipation: Status: Acute (14) Hyponatremia: Status: Inactive (15) On deep vein thrombosis (DVT) prophylaxis: Status: Acute (16) Discharge planning issues: Status: Acute Discharge Plan Disposition Patient Disposition: Home W/Home Health Services Condition: Improving Discharge Details Reason For Visit: Septic Arthritis Admit Date/Time: 08/26/25 16:21 Admit Provider: Robert Ramirez Attending Provider: Robert Ramirez Primary Care Provider: Brandon Foster Hospital Course Hospital Course: This morbidly obesed, 60 years old male patient with a past medical history of hyperlipidemia, hypertension, GERD, diabetes mellitus type 2, hypothyroidism, trigeminal neuralgia, anxiety, mitral valve prolapse schizo-affective disorders and diagnosis of bursitis several days ago presenting to the ED for evaluation of right knee/leg pain, weakness and multiple falls w/o head strike on 08/26/25. Head CT and C-spine were negative for acute findings. Blood work showed progressing anemia with H&H is 8 3 and 25 w/o acute blood loss, ESR 30, and CRP 2.39.Right knee x-ray was negative for bony destructive lesions and positive for degenerative changes with anterior soft tissue swelling without evidence of fracture. Consultation by the ED provider and Dr. Figueroa resulted in admission to the medical surgical floor by the hospitalist team for ongoing IV vancomycin and cefazolin and I&D after failed cefadroxil outpatient therapy dfor septic arthritis of the right knee. Right knee excision prepatellar bursa completed on 08/27/[address] Figueroa with ongoing clinical improvement. Right knee cultures from 08/27/25 grew erythromycin resistant staph aureus. The patient will be transitioned to oral Bactrim DS orally twice a day for 14 days and discharged home with home health PT , OT, RN. Antibiotics to be dispensed by [facility] pharmacy for 48 hours. Wound care instructions:Daily wound care :Xeroform was applied over the wound followed by gauze ABD and secured with Case bandage, until dry. Allow to heal by secondary intention given the chronicity and risk factors for reaccumulation and recurrent infection. Further outpatient wound care to be guided by PCP. Follow-up with PCP with 7 days of discharge. CRP trending down, H&H stable at 48 hours s/p OR at 7.5 &23 with negative orthostasis or other symptoms but recommendation for outpatient referral to surgery for anemia work-up. Discussed with Dr Gould Recommendations for Follow Up Recommended tests to be ordered by follow up provider: Recommending surgical referral for anemia work-up , Referral to orthopedic or general surgery if needed Home Meds and New Rx's Prescriptions: New acetaminophen 500 mg Tablet 1,000 mg PO Q6H PRN PRNQty: 30 0RF sulfamethoxazole-trimethoprim [Bactrim DS] 800-160 mg tablet 1 tab PO Q12H Qty: 28 0RF Bio-K plus 50 billion cell capsule,delayed release(DR/EC) 1 cap PO DAILY Qty: 14 0RF docusate sodium [Colace] 100 mg capsule 100 mg PO DAILY Qty: 14 0RF Continued gabapentin 300 mg capsule 300 mg PO QID sumatriptan succinate 100 mg tablet See Rx Instructions PO .COMPLEX Qty: 9 5RF Rx Instructions: take 1 tab at onset of headache; if no relief, may repeat 1 tab after at least 2 hrs; max = 2 tabs/24 hrs PO Nurtec ODT 75 mg tablet,disintegrating 75 mg PO ONCE PRN (Reason: migraine headache) Qty: 8 5RF Rx Instructions: as a single dose; no more than 1 tab per day Emgality Pen 120 mg/mL pen injector 120 mg subcut QMONTH Qty: 1 11RF metformin 500 mg tablet 500 mg PO BID fluoxetine 40 mg capsule 80 mg PO DAILY multivitamin Tablet 1 tab PO DAILY clonazepam 0.5 mg tablet See Rx Instructions .ROUTE .COMPLEX Rx Instructions: 1 tab in AM, 1 tab at Noon and 2 tab QHS simvastatin 80 mg tablet 80 mg PO DAILY Patient Comments: Take 1 tablet by mouth once a day benztropine 0.5 MG tablet 0.5 mg PO BID aspirin,buffd-calcium carb-mag 325 MG tablet 325 mg PO DAILY lactulose 10 gram/15 mL solution 20 g PO DIRECTED PRN Patient Comments: TAKE ONE TO TWO TABLESPOONS BY MOUTH NEEDED WHEN 3 DAYS PASS WITHOUT BOWEL MOVEMENT albuterol sulfate 90 mcg/actuation aerosol powdr breath activated 2 inh IH Q6H PRN (Reason: shortness of breath or wheezing) Qty: 1 0RF atenolol 25 mg tablet 75 mg PO DAILY Patient Comments: Take 3 tablet by mouth once a day Invega Sustenna 117 mg/0.75 mL syringe 117 mg IM Q30D divalproex [Depakote ER] 500 mg tablet extended release 24 hr 500 mg PO BID omeprazole 40 mg capsule,delayed release(DR/EC) 40 mg PO DAILY Patient Comments: TAKE 1 CAPSULE BY MOUTH DAILY FOR HEARTBURN bupropion HCl 300 mg tablet extended release 24 hr 300 mg PO DAILY Patient Comments: Take 1 tablet by mouth once a day loratadine 10 mg tablet 10 mg PO DAILY Patient Comments: Take 1 tablet by mouth once a day for allergies Discharge Instructions Referrals: Brandon Foster [Primary Care Provider, Medicine] Referral Note: Follow-up with PCP within 7 days of discharge Activity:: Activity as Tolerated Equipment/Supplies:: Walker Diet:: heart healthy diabetic Discharge Orders Discharge Orders: Discharge Order (Routine); Ordered 08/29/25 Ordered By: Cher Garcia DS: Summary Time Spent with Patient providing and/or coordinating discharge services: Greater than 30 minutes Status at Discharge Functional status at discharge: uses cane/walker Overall status at discharge: patient is progressing back to baseline Mental Status: mental status grossly normal Speech and Movement: speech and movement normal Mood: congruent mood Affect: normal affect Quality:SDOH Health Related Social Needs: Health related social needs inadequate housing risk of homeless food insecurity house/econ circumstance daily activities lonely/isolated Health related social needs details needs help apartment will raise rental fee. Exam Narrative Exam Narrative: 60-year-old male looking older then stated age, calm and cooperative ,alert oriented x 4, no focal neurological deficit, unlabored breathing, clear lungs , S1-S2 regular, abdomen is large nondistended soft nontender, bowel sound are present , RASS 0, congruent mood and affect , moves all 4 extremities, right knee ROM, flexion 90 degrees, full extension w/ discomfort, improved erythema and swelling, dressing is DCI, Psych Mental Status: mental status grossly normal Speech and Movement: speech and movement normal Mood: congruent mood Affect: normal affect DS: Data Vitals/I&O Vitals and I&O: Vital Signs Temperature 35.9 C L 08/29/25 08:51 Temperature Source Temporal Artery Scan 08/29/25 08:51 Pulse 65 08/29/25 08:51 Pulse Rhythm Regular 08/26/25 22:17 Pulse 64 08/27/25 14:16 Respiratory Rate 20 08/29/25 08:51 Respiratory Effort Normal, Non-Labored 08/26/25 22:17 Respiratory Depth Normal 08/26/25 22:17 Respiratory Pattern Normal 08/26/25 22:17 Blood Pressure 127/73 08/29/25 08:51 Blood Pressure Mean 91 08/29/25 08:51 Blood Pressure Position Sitting 08/26/25 13:21 Pulse Oximetry 95 08/29/25 08:51 Respiratory End-tidal CO2 36 08/27/25 14:16 Oxygen Delivery Method Room Air 08/29/25 08:51 Oxygen Flow Rate 0 08/29/25 08:51 Pain Level 4 08/29/25 03:35 Comment pt declined, i feel fine, you already took my blood pressure 08/28/25 13:21 Intake & Output 08/28/25 08/28/25 08/29/25 11:59 23:59 11:59 Intake Total 1290 / 2240 950 / 2240 290 / 290 Balance 1290 / 2240 950 / 2240 290 / 290 Intake: IV 1050 / 1760 710 / 1760 50 / 50 Oral 240 / 480 240 / 480 240 / 240 Other: Urine Color Yellow Yellow Yellow Urine Appearance Clear Clear Urine Odor Normal Comment pt voids ind with stand by assistance, pt flushed before QUILLER MACHINE FIXER could view urine Data Completed and Pending Pending Labs at Discharge: 08/26/25 08/26/25 08/27/25 14:50 17:10 07:15 WBC 6.30 4.82 RBC 2.71 L 2.62 L Hgb 8.3 L 8.1 L Hct 25.5 L 25.0 L MCV 94 95 MCH 30.6 30.9 MCHC 32.5 32.4 RDW 13.8 13.7 Plt Count 249 220 MPV 8.5 8.4 Immature Gran % 1.7 1.7 Neutrophils % 72.0 59.9 Lymphocytes % 16.3 25.1 Monocytes % 8.4 9.8 Eosinophils % 1.4 3.1 Basophils % 0.2 0.4 Nucleated RBC % 0.0 0.0 Absolute Neutrophils 4.53 2.89 Absolute Lymphocytes 1.03 L 1.21 Absolute Monocytes 0.53 0.47 Absolute Eosinophils 0.09 0.15 Absolute Basophils 0.01 0.02 ESR 30 H VBG Lactate 1.4 Sodium 134 L 134 L Potassium 4.6 4.2 Chloride 97 L 98 Carbon Dioxide 28.9 28.9 Anion Gap 8.1 7.1 BUN 8 8 Creatinine 1.0 0.9 Est GFR (CKD-EPI 2020) 86.16 97.78 Glucose 91 92 Hemoglobin A1c 6.4 H Calcium 8.8 8.0 L Iron 43 L TIBC 197 L Transferrin 173 L Transferrin % Sat 22 Total Bilirubin 0.3 AST 20 ALT 22 Alkaline Phosphatase 87 Troponin I 4 4 C-Reactive Protein 2.39 H Total Protein 8.1 Albumin 2.5 L Vitamin B12 Folate TSH 9.33 H Free T4 1.28 Urine Color Urine Clarity Urine pH Ur Specific [place] Urine Protein Urine Ketones Urine Blood Urine Nitrite Urine Bilirubin Urine Urobilinogen Ur Leukocyte Esterase Urine Glucose Random Vancomycin Urine Opiates Screen Urine Methadone Screen Ur Barbiturates Screen Ur Tricyclics Screen Ur Amphetamines Screen U Benzodiazepines Scrn Urine Cocaine Screen Ur THC Screen Ethyl Alcohol < 3.0 08/27/25 08/27/25 08/28/25 09:10 16:35 06:44 WBC 3.95 L RBC 2.46 L Hgb 7.5 L Hct 23.3 L MCV 95 MCH 30.5 MCHC 32.2 RDW 13.6 Plt Count 169 MPV 8.1 Immature Gran % 1.8 Neutrophils % 62.2 Lymphocytes % 18.5 Monocytes % 13.7 Eosinophils % 3.3 Basophils % 0.5 Nucleated RBC % 0.0 Absolute Neutrophils 2.46 Absolute Lymphocytes 0.73 L Absolute Monocytes 0.54 Absolute Eosinophils 0.13 Absolute Basophils 0.02 ESR VBG Lactate Sodium 132 L Potassium 4.4 Chloride 98 Carbon Dioxide 30.3 Anion Gap 3.7 BUN 11 Creatinine 1.0 Est GFR (CKD-EPI 2020) 86.16 Glucose 119 H Hemoglobin A1c Calcium 7.9 L Iron TIBC Transferrin Transferrin % Sat Total Bilirubin AST ALT Alkaline Phosphatase Troponin I C-Reactive Protein Total Protein Albumin Vitamin B12 224 Folate 6.4 L TSH Free T4 Urine Color Yellow Urine Clarity Clear Urine pH 6.0 Ur Specific [place] 1.015 Urine Protein Negative Urine Ketones Negative Urine Blood Negative Urine Nitrite Negative Urine Bilirubin Negative Urine Urobilinogen 2.0 H Ur Leukocyte Esterase Negative Urine Glucose Negative Random Vancomycin 13.1 Urine Opiates Screen Negative Urine Methadone Screen Negative Ur Barbiturates Screen Negative Ur Tricyclics Screen Negative Ur Amphetamines Screen Negative U Benzodiazepines Scrn Negative Urine Cocaine Screen Negative Ur THC Screen Negative Ethyl Alcohol 08/29/25 06:14 WBC 4.41 RBC 2.47 L Hgb 7.5 L Hct 23.0 L MCV 93 MCH 30.4 MCHC 32.6 RDW 13.5 Plt Count 177 MPV 8.5 Immature Gran % 1.6 Neutrophils % 55.3 Lymphocytes % 27.4 Monocytes % 12.9 Eosinophils % 2.3 Basophils % 0.5 Nucleated RBC % 0.0 Absolute Neutrophils 2.44 Absolute Lymphocytes 1.21 Absolute Monocytes 0.57 Absolute Eosinophils 0.10 Absolute Basophils 0.02 ESR VBG Lactate Sodium 131 L Potassium 4.3 Chloride 97 L Carbon Dioxide 28.7 Anion Gap 5.3 BUN 9 Creatinine 0.9 Est GFR (CKD-EPI 2020) 97.78 Glucose 125 H Hemoglobin A1c Calcium 7.7 L Iron TIBC Transferrin Transferrin % Sat Total Bilirubin AST ALT Alkaline Phosphatase Troponin I C-Reactive Protein Total Protein Albumin Vitamin B12 Folate TSH Free T4 Urine Color Urine Clarity Urine pH Ur Specific [place] Urine Protein Urine Ketones Urine Blood Urine Nitrite Urine Bilirubin Urine Urobilinogen Ur Leukocyte Esterase Urine Glucose Random Vancomycin Urine Opiates Screen Urine Methadone Screen Ur Barbiturates Screen Ur Tricyclics Screen Ur Amphetamines Screen U Benzodiazepines Scrn Urine Cocaine Screen Ur THC Screen Ethyl Alcohol Preliminary micro results at discharge 08/27/25 13:25 Knee - Right Surgical Culture - Preliminary Staphylococcus aureus 08/27/25 13:25 Knee - Right Surgical Culture - Preliminary Staphylococcus aureus 08/27/25 13:25 Knee - Right Anaerobic Culture - Pending 08/27/25 13:25 Knee - Right Anaerobic Culture - Pending [facility] All Active Problems (Updated 08/29/25 @ 14:32 by Cher Garcia APRN) Constipation (Acute) Discharge planning issues (Acute) On deep vein thrombosis (DVT) prophylaxis (Acute) Septic prepatellar bursitis of right knee (Acute) Bursitis, prepatellar, right (Acute) Chest pain (Acute) Dental caries (Acute) Nicotine dependence (Acute) Dyspnea on exertion (Acute) Depression (Acute 10/02/14) Chronic headache (Acute) Migraine headache without aura (Chronic) Migraine (Chronic) Poor dentition (Acute) Tobacco use disorder (Chronic) started 2013 1.5 ppd, pipe 1-7/week, QUIT LATE OCT 2021 Allergic rhinitis (Chronic) lortadine Hiatal hernia (Chronic) protonix not effective, nexium works better 02/12/18 Anemia (Chronic) Broken teeth (Chronic) Drug-seeking behavior (Chronic ~09/20/21) Requests Ritalin from providers Medication overuse headache (Acute) Medical History (Updated 08/29/25 @ 14:32 by Cher Garcia APRN) Chest pain, unspecified Chest pain, unspecified Suicidal ideation Hypercholesterolemia (09/07/14) pt insists on lipitor 80 mg due to family hx Obesity BMI 52 Hypertension pt requests brand name Tenormin vs atenolol 04/02/18 GERD (gastroesophageal reflux disease) (09/07/14) Diabetes mellitus type 2 in obese (09/09/14) Hypothyroidism (acquired) (09/07/14) Schizoaffective disorder (09/07/14) Rebekah Mariscal [facility] 09/2014- [facility] inpatient Trigeminal neuralgia Anxiety Mitral valve prolapse Surgical History (Updated 08/28/25 @ 11:21 by JORDANA Gross) No significant past surgical history Family History Father Heart disease [place] Social History Smoking/Tobacco Use Status: Former Tobacco Use Smoking risk assessment performed?: Yes Alcohol Intake: never Drug use: Never Substance use type: does not use Adopted: No Caregiver/Support person: No Foster care: No Household members: none Housing: apartment Number of Children: 2 number of grandchildren: 1 Communication Needs: Corrective Lenses Education Level: college Do you need help understanding health information?: Always current occupation: Unemployed/Leave of absence Sexually active: No Do you think of yourself as: Decline to provide Current gender identity: male What type of physical activity do you participate in: other Details: weight lifting Frequency: 3-4 times per week Magalie/Gnosticism: Orthodox Seatbelt use: always Drive intox or ride w/intox dray 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 Time Spent with Patient Time Spent with Patient: >85 minutes Time was spent: preparing to see the patient(eg.review tests), obtaining and/or reviewing separately otained hiistory, ordering medications,tests, procedures, referring, communicating with other health adult care manager, indepentently interpreting results, counseling the patient, care coordination and other
[2025-08-29 11:58] LABS: Ferritin 273 ng/mL (26-388)
--- NOTE | 2025-08-29 12:12 | NUR.NOTE ---
Nursing Note: Cher MEDINA ordered a one time dose of bisacodyl suppository. When presenting with the med to the patient, the patient refused stating I dont need that. The patient was educated on the importance of moving his bowels but the patient still declined. The patient stated i think it will come soon. Cher MEDINA notified of this. Pt requested to drink prune juice instead, so i brought in a cup of juice for him. Plan of care ongoing.
[2025-08-29] MEDS: Sulfameth/Trimeth DS TAB 1 TAB PO (14:22)
[2025-08-29 14:31] LABS: Lab Add On Test DONE
--- NOTE | 2025-08-29 14:35 | PDOC.HHF2F_ITS ---
Date of service: 08/29/25 Time of Service: 14:36 Home Health Referral Home Health Orders Clinical synopsis of why skilled professionals are needed: This morbidly obesed, 60 years old male patient with a past medical history of hyperlipidemia, obesity, hypertension, GERD, diabetes mellitus type 2, hypothyroidism, trigeminal neuralgia, anxiety, mitral valve prolapse schizo- affective disorders and diagnosis of bursitis several days ago presenting to the ED for evaluation of right knee/leg pain, weakness and multiple falls w/o head strike on 08/26/25. Head CT and C-spine were negative for acute findings. Blood work showed progressing anemia with H&H is 8 3 and 25 w/o acute blood loss, ESR 30, and CRP 2.39.Right knee x-ray was negative for bony destructive lesions and positive for degenerative changes with anterior soft tissue swelling without evidence of fracture. Consultation by the ED provider and Dr. Figueroa resulted in admission to the medical surgical floor by the hospitalist team for ongoing IV vancomycin and cefazolin and I&D after failed cefadroxil outpatient therapy dfor septic arthritis of the right knee. Right knee excision prepatellar bursa completed on 08/27/[address] Figueroa with ongoing clinical improvement. Right knee cultures from 08/27/25 grew erythromycin resistant staph aureus. The patient will be transitioned to oral Bactrim DS orally twice a day for 14 days and discharged home with home health PT , OT, RN. Antibiotics to be dispensed by [facility] pharmacy for 48 hours. Wound care instructions:Daily wound care :Xeroform was applied over the wound followed by gauze ABD and secured with Case bandage, until dry. Allow to heal by secondary intention given the chronicity and risk factors for reaccumulation and recurrent infection. Further outpatient wound care to be guided by PCP. Follow-up with PCP with 7 days of discharge. CRP trending down, H&H stable at 48 hours s/p OR at 7.5 &23 with negative orthostasis or other symptoms but recommendation for outpatient referral to surgery for anemia work-up. Discussed with Dr Gould Registered Nurse: Check all that apply Instruct on new or changed medication(s)/assess compliance: Ordered Assess for exacerbation of medical condition, instruct patient/caregivers on signs and symptoms to report for early detection: Ordered Administer injection as no willing or able caregiver and patient is unable to administer due to: Dressing change as per above Physical Therapist: Check all that apply Increase strength & endurance for safe mobility at home: Ordered To design/establish home maintenance program: Ordered Fall reduction therapy program for patient with history of frequent falls: Ordered Home safety evaluation and teaching/gait training including stair management (if applicable): Ordered Other: s/p right knee !&D Occupational Therapist: Evaluate and treat for patient unable to perform ADL/IADL/self-care: Ordered Home Bound Status Requires the aid of supportive device (check all that apply): Walker Describe why leaving home would require a considerable and taxing effort: Requires frequent rest periods and Safety Concerns: describe (s/p right knee surgery -weakness ) Encounter Date and Reason: I certify that a FTF encounter for this patient was performed on August 29, 2025 and that such encounter was related to the primary reason the patient requires home health services. The encounter was conducted in the following manner: * By me as the certifying physician, CD REACTOR OPERATOR HEAD, PA or * By an inpatient physician, CD REACTOR OPERATOR HEAD or PA during an inpatient stay who communicated findings to me, Certification And Authentication I certify that I composed the above information based on my clinical judgment relating to this patient's medical condition and, if applicable, clinical findings communicated to me by the NPP or inpatient physician who performed the FTF encounter. Name of Provider that will be monitoring home health services: Brandon Foster
[2025-08-29 14:41] LABS: C-Reactive Protein 1.10 mg/dL (<or=0.5)
--- NOTE | 2025-08-29 15:18 | PDOC.CMDIS ---
Date of service: 08/29/25 Time of Service: 15:18 LACE Index Scoring Tool Questions: Length of Stay (in days): 3 Was the patient admitted via the E.D.?: Yes Comorbidities: Diabetes w/o Complication E.D. Visits: 12 Answers: Total Score: 11 Risk of Readmission: High Risk Care Management Discharge Plan Reason for Hospitalization: septic prepatellar bursitis of right knee Discharge Plan: Avery is discharged home today with new orders for RN, PT and OT. His psych meds were brought in by [facility] yesterday for the weekend, and he will discharge with them. He will have another med drop off by [facility] on Sunday. Avery was also given 48 worth of antibiotics until he can get to the pharmacy on Sunday. He will also be given a to-go lunch bag for dinner tonight. Avery will f/u with his PCP and continue per his plan of care. He is transporting home via [facility]. Patient/Family Education Needs: Review of discharge instructions, activity, limitations, and discuss Ask me 3. Services Needed at Discharge: Home Health Care Services (RN, PT/OT - [facility]) SDOH Health Related Social Needs: Health related social needs inadequate housing risk of homeless food insecurity house/econ circumstance daily activities lonely/isolated Health related social needs details needs help apartment will raise rental fee.
== END 2025-08-29 15:53 | disposition home health service (06) | DRG 501 ==
LOC: ER 16:13 → MS 18:29
PROVIDERS: Hospitalist; Physician Assistant; Student in an Organized Health Care Education/Training Program; Admitting Provider Family Medicine; Emergency Provider Physician Assistant; PCP Family Medicine; Responsible Provider Nurse Practitioner Acute Care; Visit Provider Family Medicine
PROC: 0MTN0ZZ Resection of Right Knee Bursa and Ligament, Open Approach (ICD-10-PCS; CPT 27340; principal; 2025-08-27 14:30)
DX: M71.161 Other infective bursitis, right knee (principal); E87.1 Hypo-osmolality and hyponatremia; Z68.41 Body mass index [BMI] 40.0-44.9, adult; Z59.811 Housing instability, housed, with risk of homelessness; I10 Essential (primary) hypertension; D64.9 Anemia, unspecified; E66.9 Obesity, unspecified; F17.210 Nicotine dependence, cigarettes, uncomplicated; E78.00 Pure hypercholesterolemia, unspecified; E03.9 Hypothyroidism, unspecified; F25.1 Schizoaffective disorder, depressive type; F41.9 Anxiety disorder, unspecified; I34.1 Nonrheumatic mitral (valve) prolapse; K59.00 Constipation, unspecified; Z79.899 Other long term (current) drug therapy; E11.9 Type 2 diabetes mellitus without complications; K21.9 Gastro-esophageal reflux disease without esophagitis; K02.9 Dental caries, unspecified; G43.709 Chronic migraine without aura, not intractable, without status migrainosus; R29.6 Repeated falls; Z59.41 Food insecurity; Z59.9 Problem related to housing and economic circumstances, unspecified; R45.89 Other symptoms and signs involving emotional state
CPT/HCPCS: 27340; 00123; 36415; 73562; 80048; 80053; 80307; 85652; 87077; 93005; 96365; 96366; 96367; 97161; 99285; J1650; 70450; 71046; 72125; 80202; 80320; 81003; 82607; 82728; 82746; 83036; 83540; 83550; 83605; 84439; 84443; 84466; 84484; 85025; 86140; 87070; 87075; 87186; 87205; 93010; 99223; 99233; 99239; J0131; J0690; J1815; J2003; J2250; J2371; J2405; J2470; J2704; J3373; J3490

== ENCOUNTER 2025-08-31 15:30 | Emergency (ER) | payer MEDICAID, SELFPAY ==
[2025-08-31 15:38] VITALS: BP 129/76; PULSE 82; RESP 18; TEMP 36.9; O2SAT 92
--- NOTE | 2025-08-31 23:19 | W.ED.GENAD ---
Discharge Plan Disposition Patient Disposition: Home Condition: Stable Discharge Details Clinical Impression: Visit for wound care, Septic arthritis Primary Care Provider: Branodn Foster ED Provider: Lucille Farley Home Meds and New Rx's Prescriptions: Continued gabapentin 300 mg capsule 300 mg PO QID sumatriptan succinate 100 mg tablet See Rx Instructions PO .COMPLEX Qty: 9 5RF Rx Instructions: take 1 tab at onset of headache; if no relief, may repeat 1 tab after at least 2 hrs; max = 2 tabs/24 hrs PO Nurtec ODT 75 mg tablet,disintegrating 75 mg PO ONCE PRN (Reason: migraine headache) Qty: 8 5RF Rx Instructions: as a single dose; no more than 1 tab per day Emgality Pen 120 mg/mL pen injector 120 mg subcut QMONTH Qty: 1 11RF metformin 500 mg tablet 500 mg PO BID fluoxetine 40 mg capsule 80 mg PO DAILY multivitamin Tablet 1 tab PO DAILY clonazepam 0.5 mg tablet See Rx Instructions .ROUTE .COMPLEX Rx Instructions: 1 tab in AM, 1 tab at Noon and 2 tab QHS simvastatin 80 mg tablet 80 mg PO DAILY Patient Comments: Take 1 tablet by mouth once a day benztropine 0.5 MG tablet 0.5 mg PO BID aspirin,buffd-calcium carb-mag 325 MG tablet 325 mg PO DAILY lactulose 10 gram/15 mL solution 20 g PO DIRECTED PRN Patient Comments: TAKE ONE TO TWO TABLESPOONS BY MOUTH NEEDED WHEN 3 DAYS PASS WITHOUT BOWEL MOVEMENT albuterol sulfate 90 mcg/actuation aerosol powdr breath activated 2 inh IH Q6H PRN (Reason: shortness of breath or wheezing) Qty: 1 0RF atenolol 25 mg tablet 75 mg PO DAILY Patient Comments: Take 3 tablet by mouth once a day Invega Sustenna 117 mg/0.75 mL syringe 117 mg IM Q30D divalproex [Depakote ER] 500 mg tablet extended release 24 hr 500 mg PO BID omeprazole 40 mg capsule,delayed release(DR/EC) 40 mg PO DAILY Patient Comments: TAKE 1 CAPSULE BY MOUTH DAILY FOR HEARTBURN bupropion HCl 300 mg tablet extended release 24 hr 300 mg PO DAILY Patient Comments: Take 1 tablet by mouth once a day loratadine 10 mg tablet 10 mg PO DAILY Patient Comments: Take 1 tablet by mouth once a day for allergies acetaminophen 500 mg Tablet 1,000 mg PO Q6H PRN PRNQty: 30 0RF sulfamethoxazole-trimethoprim [Bactrim DS] 800-160 mg tablet 1 tab PO Q12H Qty: 28 0RF Bio-K plus 50 billion cell capsule,delayed release(DR/EC) 1 cap PO DAILY Qty: 14 0RF docusate sodium [Colace] 100 mg capsule 100 mg PO DAILY Qty: 14 0RF Discharge Instructions Additional Instructions: please follow-up with your wound care nurse and allow for dressing changes this will need to be changed tomorrow Brittany can coordinate with home healthfor assessment please return with spreading redness, fever, worsening pain Referrals: Brandon Foster [Primary Care Provider, Medicine] Discharge Data Discharge Date/Time-TO BE ENTERED AT DEPARTURE: 08/31/25 17:28 HPI General Date/Time Provider Initiated Documentation: 08/31/25 15:38. HPI Narrative: This 60-year-old male known to this facility status post prepatellar septic bursitis drainage at this facility with subsequent discharge. Presents for follow-up for wound care. Wound care nurse presented to evaluate patient and he did not feel comfortable with him at his place of living and asked them to leave. He presents here now for reassessment and wound care. [facility] Patient denies any new complaints. Specifically denies fever worsening pain to the affected area and is taking his antibiotics as prescribed. Related Data Home Medications ?Medication ?Instructions ?Recorded ?Confirmed aspirin,buffered (calcium 325 mg PO DAILY 11/18/16 08/31/25 carbonate-magnesium) 325 mg tablet benztropine 0.5 mg tablet 0.5 mg PO BID 11/18/16 08/31/25 lactulose 10 gram/15 mL oral 20 g PO DIRECTED PRN 10/03/20 08/31/25 solution albuterol sulfate 90 mcg/actuation 2 inh inhalation Q6H PRN shortness 12/15/20 08/31/25 breath activated powder inhaler of breath or wheezing #1 ea multivitamin 1 tab PO DAILY 01/26/21 08/31/25 clonazepam 0.5 mg tablet See Rx Instructions .Route .COMPLEX 03/04/23 08/31/25 gabapentin 300 mg capsule 300 mg PO QID 03/27/23 08/31/25 atenolol 25 mg tablet 75 mg PO DAILY 01/31/24 08/31/25 divalproex 500 mg tablet,extended 500 mg PO BID 01/31/24 08/31/25 release 24 hr (Depakote ER) omeprazole 40 mg capsule,delayed 40 mg PO DAILY 01/31/24 08/31/25 release paliperidone palmitate 117 mg/0.75 117 mg IM Q30D 01/31/24 08/31/25 mL intramuscular syringe (Invega Sustenna) simvastatin 80 mg tablet 80 mg PO DAILY 03/08/24 08/31/25 galcanezumab-gnlm 120 mg/mL 120 mg subcut QMONTH #1 mL 08/04/24 08/31/25 subcutaneous pen injector (Emgality Pen) rimegepant 75 mg disintegrating 75 mg PO ONCE PRN migraine 08/04/24 08/31/25 tablet (Nurtec ODT) headache #8 tabs sumatriptan succinate 100 mg tablet See Rx Instructions PO .COMPLEX #9 08/04/24 08/31/25 tabs fluoxetine 40 mg capsule 80 mg PO DAILY 09/24/24 08/31/25 metformin 500 mg tablet 500 mg PO BID 09/24/24 08/31/25 bupropion HCl 300 mg 24 hr tablet, 300 mg PO DAILY 08/27/25 08/31/25 extended release loratadine 10 mg tablet 10 mg PO DAILY 08/27/25 08/31/25 L. acidophilus,casei,rhamnosus 50 1 cap PO DAILY #14 caps 08/29/25 08/31/25 billion cell capsule,delayed release (Bio-K plus) acetaminophen 500 mg tablet 1,000 mg (2 x 500 mg) PO Q6H PRN 08/29/25 08/31/25 PRN #30 tabs docusate sodium 100 mg capsule 100 mg PO DAILY #14 caps 08/29/25 08/31/25 (Colace) sulfamethoxazole 800 1 tab PO Q12H #28 tabs 08/29/25 08/31/25 mg-trimethoprim 160 mg tablet (Bactrim DS) Previous Rx's ?Medication ?Instructions ?Recorded albuterol sulfate 90 mcg/actuation 2 inh inhalation Q6H PRN shortness 12/15/20 breath activated powder inhaler of breath or wheezing #1 ea galcanezumab-gnlm 120 mg/mL 120 mg subcut QMONTH #1 mL 08/04/24 subcutaneous pen injector (Emgality Pen) rimegepant 75 mg disintegrating 75 mg PO ONCE PRN migraine 08/04/24 tablet (Nurtec ODT) headache #8 tabs sumatriptan succinate 100 mg tablet See Rx Instructions PO .COMPLEX #9 08/04/24 tabs L. acidophilus,casei,rhamnosus 50 1 cap PO DAILY #14 caps 08/29/25 billion cell capsule,delayed release (Bio-K plus) acetaminophen 500 mg tablet 1,000 mg (2 x 500 mg) PO Q6H PRN 08/29/25 PRN #30 tabs docusate sodium 100 mg capsule 100 mg PO DAILY #14 caps 08/29/25 (Colace) sulfamethoxazole 800 1 tab PO Q12H #28 tabs 08/29/25 mg-trimethoprim 160 mg tablet (Bactrim DS) Allergies Allergy/AdvReac Type Severity Reaction Status Date / Time buspirone Allergy Other (See Verified 08/31/25 15:41 Comment) paliperidone Allergy Other (See Verified 08/31/25 15:41 Comment) paroxetine HCl (From Paxil) Allergy Other (See Verified 08/31/25 15:41 Comment) sertraline Allergy Other (See Verified 08/31/25 15:41 Comment) ziprasidone (From Geodon) Allergy Other (See Verified 08/31/25 15:41 Comment) aripiprazole (From Abilify) AdvReac Intermediate INVOLUNTARY Verified 08/31/25 15:41 MUSCLE MOVEMENTS mirtazapine AdvReac Intermediate INVOLUNTARY Verified 08/31/25 15:41 MUSCLE MOVEMENTS risperidone AdvReac Intermediate INVOLUNTARY Verified 08/31/25 15:41 MUSCLE MOVEMENTS enviornmental Allergy Mild Wheezing Uncoded 08/31/25 15:41 General Stated Complaint: Recheck CARLOS: 4 Exam Narrative Exam Narrative: Alert and oriented 60-year-old male in no acute distress, wound on the display erythema, draining slight overlying the prepatellar bursa without evidence of surrounding cellulitis, scant blood noted flexion and extension no respiratory distress, cardiac rate rhythm regular Course Vital Signs Vital signs: Vital Signs Temperature 36.9 C 08/31/25 15:38 Pulse 82 08/31/25 15:38 Respiratory Rate 18 08/31/25 15:38 Blood Pressure 129/76 08/31/25 15:38 Pulse Oximetry 92 08/31/25 15:38 Temperature 36.9 C 08/31/25 15:38 Pulse 82 08/31/25 15:38 Respiratory Rate 18 08/31/25 15:38 Blood Pressure 129/76 08/31/25 15:38 Pulse Oximetry 92 08/31/25 15:38 Pain Level 2 08/31/25 15:38 Medical Decision Making Assessment and plan: Patient presents to our facility for wound care as he felt uncomfortable with home health performing this on him at home. I Did Cleanse Wounds Place, Xeroform ABD pad and gauze with an Case wrap as instructed in the discharge instructions from orthopedics. I then spoke with patient patient care representative, Brittany from [facility] and Josh if agreeable to having home health come daily if his type inspector is in his home. I feel that another home health referral. Patient also had an order for PT and OT medication managements and evaluation for reoccurring, infection, this was also ordered. Patient will continue on his antibiotic wound care will need to be performed tomorrow. Patient afebrile and nontoxic. They were here for approximately an hour and a half when I unfortunately was involved with another urgent case and became frustrated regarding the longevity of their stay, he did leave prior to discharge instructions with his type inspector. He will need close outpatient follow-up. Quality:SDOH Health Related Social Needs: Health related social needs inadequate housing risk of homeless food insecurity house/econ circumstance daily activities lonely/isolated Health related social needs details needs help apartment will raise rental fee. PFSH All Active Problems (Updated 08/31/25 @ 17:11 by JORDANA Salazar) Septic arthritis (Acute) Visit for wound care (Acute) Septic prepatellar bursitis of right knee (Acute) Bursitis, prepatellar, right (Acute) Chest pain (Acute) Dental caries (Acute) Nicotine dependence (Acute) Dyspnea on exertion (Acute) Depression (Acute 10/02/14) Chronic headache (Acute) Migraine headache without aura (Chronic) Migraine (Chronic) Poor dentition (Acute) Tobacco use disorder (Chronic) started 2013 1.5 ppd, pipe 1-7/week, QUIT LATE OCT 2021 Allergic rhinitis (Chronic) lortadine Hiatal hernia (Chronic) protonix not effective, nexium works better 02/12/18 Anemia (Chronic) Broken teeth (Chronic) Drug-seeking behavior (Chronic ~09/20/21) Requests Ritalin from providers Medication overuse headache (Acute) Medical History (Updated 08/31/25 @ 17:11 by JORDANA Salazar) Constipation Chest pain, unspecified Chest pain, unspecified Suicidal ideation Hypercholesterolemia (09/07/14) pt insists on lipitor 80 mg due to family hx Obesity BMI 52 Hypertension pt requests brand name Tenormin vs atenolol 04/02/18 GERD (gastroesophageal reflux disease) (09/07/14) Diabetes mellitus type 2 in obese (09/09/14) Hypothyroidism (acquired) (09/07/14) Schizoaffective disorder (09/07/14) Rebekah Mariscal [facility] 09/2014- [facility] inpatient Trigeminal neuralgia Mitral valve prolapse Surgical History (Updated 08/30/25 @ 00:02 by ZAFAR TRENT) No significant past surgical history Family History Father Heart disease NE Social History Smoking/Tobacco Use Status: Former Tobacco Use Smoking risk assessment performed?: Yes Alcohol Intake: never Drug use: Never Substance use type: does not use Adopted: No Caregiver/Support person: No Foster care: No Household members: none Housing: apartment Number of Children: 2 number of grandchildren: 1 Communication Needs: Corrective Lenses Education Level: college Do you need help understanding health information?: Always current occupation: Unemployed/Leave of absence Sexually active: No Do you think of yourself as: Decline to provide Current gender identity: male What type of physical activity do you participate in: other Details: weight lifting Frequency: 3-4 times per week Magalie/Christianity: Anabaptism Seatbelt use: always Drive intox or ride w/intox wrecker 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
== END 2025-08-31 17:28 | disposition home or self-care (01) ==
PROVIDERS: Emergency Provider Physician Assistant; PCP Family Medicine
DX: Z48.01 Encounter for change or removal of surgical wound dressing (principal)
CPT/HCPCS: 99282; 99281

== ENCOUNTER 2025-09-08 13:20 | Emergency (ER) | payer MEDICAID, SELFPAY ==
[2025-09-08 13:26] VITALS: BP 135/83; PULSE 87; RESP 18; TEMP 36.7; O2SAT 96
--- NOTE | 2025-09-08 13:49 | W.ED.GENAD ---
Discharge Plan Disposition Patient Disposition: Home Condition: Stable Discharge Details Clinical Impression: Abdominal pain, Vomiting, Gallstones, Hematuria, Anemia, Thrombocytopenia Primary Care Provider: Brandon Foster ED Provider: Katarzyna Jennings Home Meds and New Rx's Prescriptions: New simethicone 80 mg tablet,chewable 80 mg PO BID-QID PRNQty: 20 0RF No Action gabapentin 300 mg capsule 300 mg PO QID sumatriptan succinate 100 mg tablet See Rx Instructions PO .COMPLEX Qty: 9 5RF Rx Instructions: take 1 tab at onset of headache; if no relief, may repeat 1 tab after at least 2 hrs; max = 2 tabs/24 hrs PO Nurtec ODT 75 mg tablet,disintegrating 75 mg PO ONCE PRN (Reason: migraine headache) Qty: 8 5RF Rx Instructions: as a single dose; no more than 1 tab per day Emgality Pen 120 mg/mL pen injector 120 mg subcut QMONTH Qty: 1 11RF Patient Comments: pt states he is unsure until he sees his doctor next metformin 500 mg tablet 500 mg PO BID fluoxetine 40 mg capsule 80 mg PO DAILY multivitamin Tablet 1 tab PO DAILY clonazepam 0.5 mg tablet See Rx Instructions .ROUTE .COMPLEX Rx Instructions: 1 tab in AM, 1 tab at Noon and 2 tab QHS simvastatin 80 mg tablet 80 mg PO DAILY Patient Comments: Take 1 tablet by mouth once a day benztropine 0.5 MG tablet 0.5 mg PO BID aspirin,buffd-calcium carb-mag 325 MG tablet 325 mg PO DAILY lactulose 10 gram/15 mL solution 20 g PO DIRECTED PRN Patient Comments: TAKE ONE TO TWO TABLESPOONS BY MOUTH NEEDED WHEN 3 DAYS PASS WITHOUT BOWEL MOVEMENT albuterol sulfate 90 mcg/actuation aerosol powdr breath activated 2 inh IH Q6H PRN (Reason: shortness of breath or wheezing) Qty: 1 0RF atenolol 25 mg tablet 75 mg PO DAILY Patient Comments: Take 3 tablet by mouth once a day Invega Sustenna 117 mg/0.75 mL syringe 117 mg IM Q30D divalproex [Depakote ER] 500 mg tablet extended release 24 hr 500 mg PO BID omeprazole 40 mg capsule,delayed release(DR/EC) 40 mg PO DAILY Patient Comments: TAKE 1 CAPSULE BY MOUTH DAILY FOR HEARTBURN bupropion HCl 300 mg tablet extended release 24 hr 300 mg PO DAILY Patient Comments: Take 1 tablet by mouth once a day loratadine 10 mg tablet 10 mg PO DAILY Patient Comments: Take 1 tablet by mouth once a day for allergies acetaminophen 500 mg Tablet 1,000 mg PO Q6H PRN PRNQty: 30 0RF sulfamethoxazole-trimethoprim [Bactrim DS] 800-160 mg tablet 1 tab PO Q12H Qty: 28 0RF Bio-K plus 50 billion cell capsule,delayed release(DR/EC) 1 cap PO DAILY Qty: 14 0RF docusate sodium [Colace] 100 mg capsule 100 mg PO DAILY Qty: 14 0RF Discharge Instructions Instructions: Abdominal Pain, Adult ED Additional Instructions: You were seen in the emergency department today for evaluation of abdominal pain and nausea with vomiting. In our department you had a full physical examination performed, and had laboratory studies that were reassuring. Your CT scan showed that you have quite a bit of air in your colon, which could certainly be contributing to these symptoms. You received medications for gas pain as well as general abdominal discomfort, with good effect on your symptoms. You have a stable anemia, and do have a slightly low platelet count, which you have had in the past. Additionally, I noticed some blood in your urine, without any evidence of infection or kidney stones. These findings need to be followed up by your primary care provider to ensure that they are improving, and make any additional recommendations. Your CT scan did incidentally show that you have some gallstones, but they do not seem to be causing problems at this time. However, I do recommend that you avoid excessively greasy or fatty foods, and if you ever develop pain in your right upper quadrant of your abdomen after eating, this may be the cause and you should seek evaluation. I have sent a prescription for simethicone to your pharmacy, this is a medication that can be taken for gas pain. Please follow-up with your primary care provider in the next few days to discuss this visit and any symptoms that change, worsen, or persist. Thank you for allowing us to be part of your care. Stand Alone Forms: Portal Information HPI General Mode of arrival: EMS. Date/Time Provider Initiated Documentation: 09/08/25 13:33. Limitations to Documentation: no limitations. Information obtained by: patient and old records reviewed. HPI Narrative: This is a 60-year-old male patient with a past medical history significant for anemia, recent course of visits for prepatellar bursitis and septic bursitis/arthritis, presenting for sudden onset of abdominal pain with nausea. The patient was in his normal state of health and started to experience epigastric abdominal pain shortly after awakening about an hour ago. He had an episode of vomiting, nonbloody, has not had associated diarrhea. The patient has no history of abdominal surgeries, states that he was in his normal state of health prior to this event, has had no recent fevers or chills. He has not tried any medications in the home environment for management of the symptoms. Related Data Home Medications Medication Instructions Recorded Confirmed aspirin,buffered (calcium 325 mg PO DAILY 11/18/16 09/08/25 carbonate-magnesium) 325 mg tablet benztropine 0.5 mg tablet 0.5 mg PO BID 11/18/16 09/08/25 lactulose 10 gram/15 mL oral 20 g PO DIRECTED PRN 10/03/20 09/08/25 solution albuterol sulfate 90 mcg/actuation 2 inh inhalation Q6H PRN shortness 12/15/20 09/08/25 breath activated powder inhaler of breath or wheezing #1 ea multivitamin 1 tab PO DAILY 01/26/21 09/08/25 clonazepam 0.5 mg tablet See Rx Instructions .Route .COMPLEX 03/04/23 09/08/25 gabapentin 300 mg capsule 300 mg PO QID 03/27/23 09/08/25 atenolol 25 mg tablet 75 mg PO DAILY 01/31/24 09/08/25 divalproex 500 mg tablet,extended 500 mg PO BID 01/31/24 09/08/25 release 24 hr (Depakote ER) omeprazole 40 mg capsule,delayed 40 mg PO DAILY 01/31/24 09/08/25 release paliperidone palmitate 117 mg/0.75 117 mg IM Q30D 01/31/24 09/08/25 mL intramuscular syringe (Invega Sustenna) simvastatin 80 mg tablet 80 mg PO DAILY 03/08/24 09/08/25 galcanezumab-gnlm 120 mg/mL 120 mg subcut QMONTH #1 mL 08/04/24 09/08/25 subcutaneous pen injector (Emgality Pen) rimegepant 75 mg disintegrating 75 mg PO ONCE PRN migraine 08/04/24 09/08/25 [facility] headache #8 tabs sumatriptan succinate 100 mg tablet See Rx Instructions PO .COMPLEX #9 08/04/24 09/08/25 tabs fluoxetine 40 mg capsule 80 mg PO DAILY 09/24/24 09/08/25 metformin 500 mg tablet 500 mg PO BID 09/24/24 09/08/25 bupropion HCl 300 mg 24 hr tablet, 300 mg PO DAILY 08/27/25 09/08/25 extended release loratadine 10 mg tablet 10 mg PO DAILY 08/27/25 09/08/25 L. acidophilus,casei,rhamnosus 50 1 cap PO DAILY #14 caps 08/29/25 09/08/25 billion cell capsule,delayed release (Bio-K plus) acetaminophen 500 mg tablet 1,000 mg (2 x 500 mg) PO Q6H PRN 08/29/25 09/08/25 PRN #30 tabs docusate sodium 100 mg capsule 100 mg PO DAILY #14 caps 08/29/25 09/08/25 (Colace) sulfamethoxazole 800 1 tab PO Q12H #28 tabs 08/29/25 09/08/25 mg-trimethoprim 160 mg tablet (Bactrim DS) simethicone 80 mg chewable tablet 80 mg PO BID-QID PRN #20 tabs 09/08/25 Previous Rx's Medication Instructions Recorded albuterol sulfate 90 mcg/actuation 2 inh inhalation Q6H PRN shortness 12/15/20 breath activated powder inhaler of breath or wheezing #1 ea galcanezumab-gnlm 120 mg/mL 120 mg subcut QMONTH #1 mL 08/04/24 subcutaneous pen injector (Emgality Pen) rimegepant 75 mg disintegrating 75 mg PO ONCE PRN migraine 08/04/24 tablet ([facility]) headache #8 tabs sumatriptan succinate 100 mg tablet See Rx Instructions PO .COMPLEX #9 08/04/24 tabs L. acidophilus,casei,rhamnosus 50 1 cap PO DAILY #14 caps 08/29/25 billion cell capsule,delayed release (Bio-K plus) acetaminophen 500 mg tablet 1,000 mg (2 x 500 mg) PO Q6H PRN 08/29/25 PRN #30 tabs docusate sodium 100 mg capsule 100 mg PO DAILY #14 caps 08/29/25 (Colace) sulfamethoxazole 800 1 tab PO Q12H #28 tabs 08/29/25 mg-trimethoprim 160 mg tablet (Bactrim DS) simethicone 80 mg chewable tablet 80 mg PO BID-QID PRN #20 tabs 09/08/25 Allergies Allergy/AdvReac Type Severity Reaction Status Date / Time buspirone Allergy Other (See Verified 09/08/25 13:28 Comment) paliperidone Allergy Other (See Verified 09/08/25 13:28 Comment) paroxetine HCl (From Paxil) Allergy Other (See Verified 09/08/25 13:28 Comment) sertraline Allergy Other (See Verified 09/08/25 13:28 Comment) ziprasidone (From Geodon) Allergy Other (See Verified 09/08/25 13:28 Comment) aripiprazole (From Abilify) AdvReac Intermediate INVOLUNTARY Verified 09/08/25 13:28 MUSCLE MOVEMENTS mirtazapine AdvReac Intermediate INVOLUNTARY Verified 09/08/25 13:28 MUSCLE MOVEMENTS risperidone AdvReac Intermediate INVOLUNTARY Verified 09/08/25 13:28 MUSCLE MOVEMENTS enviornmental Allergy Mild Wheezing Uncoded 09/08/25 13:28 General Stated Complaint: Abd Prob CARLOS: 3 Exam Narrative Exam Narrative: Gen: Awake and alert, in no apparent distress HEENT: Non-icteric sclera Neck: Supple Lungs: No apparent respiratory distress, normal respiratory effort. CV: Appears well perfused, heart with regular rate and rhythm, strong distal pulses Abdomen: Non-distended, soft, minimal tenderness to palpation in the epigastric and periumbilical region without rigidity, rebound, or guarding MSK: Moves 4 extremities without apparent limitation in ROM Skin: Visualized skin without rashes, cyanosis. Neuro: Normal Gait, no obvious focal deficits or facial asymmetry. Speaks in full, clear sentences. Psych: Appropriate for situation. Course Vital Signs Vital signs: Vital Signs Temperature 36.7 C 09/08/25 13:26 Pulse 87 09/08/25 13:26 Respiratory Rate 18 09/08/25 13:26 Blood Pressure 135/83 09/08/25 13:26 Pulse Oximetry 96 09/08/25 13:26 Temperature 36.7 C 11/04/25 13:26 Temperature Source Oral 09/08/25 13:26 Pulse 87 09/08/25 13:26 Respiratory Rate 18 09/08/25 13:26 Blood Pressure 135/83 09/08/25 13:26 Blood Pressure Position Sitting 09/08/25 13:26 Pulse Oximetry 96 09/08/25 13:26 Oxygen Delivery Method Room Air 09/08/25 13:26 Oxygen Flow Rate 0 09/08/25 13:26 Pain Level 8 09/08/25 13:26 Medical Decision Making This is a 60-year-old male patient presenting for evaluation of abdominal pain with nausea and vomiting. My differential includes, but is not limited to, gastritis/PUD, gastroenteritis, pancreatitis, cholecystitis and gallbladder pathology, hepatitis, appendicitis, diverticulitis, small bowel obstruction. Considered urinary pathology including UTI, nephrolithiasis. Considered mesenteric ischemia, aortic pathology, though this is less concerning based on the patient's history and physical exam. I will provide the patient with a dose of Tylenol, Zofran, and famotidine for symptomatic management. Will obtain laboratory studies to include CBC, CMP, magnesium, lipase, and urinalysis. I will obtain a CT abdomen pelvis to better characterize any abnormalities. -I reviewed the patient's labs, which show no leukocytosis, stable anemia at 8.9 and a slightly worsening thrombocytopenia to 95. The patient was counseled on outpatient PCP follow-up for these findings. Chemistry panel reveals no significant electrolyte abnormalities, patient's baseline hypomagnesemia at 1.7 is stable and unchanged, no kidney or liver function abnormalities. Lipase is low. The urinalysis shows large blood with no infectious findings. CT scan reviewed by myself and discussed with the radiologist. He has a large volume of air in his colon, which is quite redundant, but no evidence of small bowel obstruction or bowel wall thickening. He has gallstones without evidence of cholecystitis, and on reevaluation the patient remains without right upper quadrant abdominal pain or positive Poole sign. He has no evidence of masses in the bladder, renal stones or hydronephrosis or other etiologies to explain his hematuria. I shared all these findings with the patient, who will need to follow-up with his primary care regarding his ongoing anemia, thrombocytopenia, and hematuria. I counseled him on cholelithiasis and avoiding fatty/greasy foods and representing with any episodes of right upper quadrant abdominal pain. The patient reports improvement in his symptoms, I did provide him with simethicone for his gas. At this time, the patient has had a full medical evaluation and is safe for discharge to home. They are hemodynamically stable, ambulatory, and tolerating PO. They are understanding of the follow-up plan and return precautions. They left our facility without incident. Katarzyna Jennings MD Quality:SDOH Health Related Social Needs: Health related social needs inadequate housing risk of homeless food insecurity house/econ circumstance daily activities lonely/isolated Health related social needs details needs help apartment will raise rental fee. PFSH All Active Problems (Updated 09/08/25 @ 16:05 by Katarzyna Jennings MD) Thrombocytopenia (Chronic) Hematuria (Acute) Gallstones (Acute) Vomiting (Acute) Abdominal pain (Acute) Septic arthritis (Acute) Visit for wound care (Acute) Septic prepatellar bursitis of right knee (Acute) Bursitis, prepatellar, right (Acute) Chest pain (Acute) Dental caries (Acute) Nicotine dependence (Acute) Dyspnea on exertion (Acute) Depression (Acute 10/02/14) Chronic headache (Acute) Migraine headache without aura (Chronic) Migraine (Chronic) Poor dentition (Acute) Tobacco use disorder (Chronic) started 2013 1.5 ppd, pipe 1-7/week, QUIT LATE OCT 2021 Allergic rhinitis (Chronic) lortadine Hiatal hernia (Chronic) protonix not effective, nexium works better 02/12/18 Anemia (Chronic) Broken teeth (Chronic) Drug-seeking behavior (Chronic ~09/20/21) Requests Ritalin from providers Medication overuse headache (Acute) Medical History (Updated 09/08/25 @ 16:05 by Katarzyna Jennings MD) Constipation Chest pain, unspecified Chest pain, unspecified Suicidal ideation Hypercholesterolemia (09/07/14) pt insists on lipitor 80 mg due to family hx Obesity BMI 52 Hypertension pt requests brand name Tenormin vs atenolol 04/02/18 GERD (gastroesophageal reflux disease) (09/07/14) Diabetes mellitus type 2 in obese (09/09/14) Hypothyroidism (acquired) (09/07/14) Schizoaffective disorder (09/07/14) Rebekah Mariscal [facility] 09/2014- [facility] inpatient Trigeminal neuralgia Mitral valve prolapse Surgical History (Updated 08/30/25 @ 00:02 by ZAFAR TRENT) No significant past surgical history Family History Father Heart disease NM Social History Smoking/Tobacco Use Status: Former Tobacco Use Smoking risk assessment performed?: Yes Alcohol Intake: never Drug use: Never Substance use type: does not use Adopted: No Caregiver/Support person: No Foster care: No Household members: none Housing: apartment Number of Children: 2 number of grandchildren: 1 Communication Needs: Corrective Lenses Education Level: college Do you need help understanding health information?: Always current occupation: Unemployed/Leave of absence Sexually active: No Do you think of yourself as: Decline to provide Current gender identity: male What type of physical activity do you participate in: other Details: weight lifting Frequency: 3-4 times per week Magalie/Confucianism: Church Seatbelt use: always Drive intox or ride w/intox 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
[2025-09-08] MEDS: Ondansetron 4 MG/2 ML VIAL IVP (14:02)
[2025-09-08] MEDS: FAMOTIDINE 20 MG/50 ML BAG 200 MG IVPB (14:03)
[2025-09-08 14:04] LABS: Abs Immature Grans 0.02 10^3/uL (0.0-0.06); HCT 27.2 % (40.0-50.0); HGB 8.9 g/dL (13.5-17.5); Immature Grans % 0.6 %; MCH 30.0 pg (27.0-33.0); MCHC 32.7 % (32.0-36.0); MCV 92 fL (80-95); MPV 8.1 fL (8.0-11.0); RBC 2.97 10^6/uL (4.36-5.78); RDW 14.5 % (11.8-14.1); RDW-SD 48.2 fL; WBC 3.56 10^3/uL (4.4-10.8)
[2025-09-08] MEDS: ACETAMINOPHEN 1,000 MG/100 ML BAG 400 MG IVPB (14:06)
[2025-09-08 14:21] LABS: ALT 19 U/L (16-63); AST 18 U/L (15-37); Albumin 2.9 g/dL (3.4-5.0); Alkaline Phosphatase 83 U/L (46-116); Anion Gap 10.7 mmol/L (3-11); BUN 8 mg/dL (7-18); Bilirubin, Total 0.4 mg/dL (0.2-1.0); CO2 24.3 mmol/L (21.0-32.0); Calcium 8.5 mg/dL (8.5-10.1); Chloride 98 mmol/L (98-107); Glucose 119 mg/dL (74-106); Lipase 19 U/L (<78); Magnesium 1.7 mg/dL (1.8-2.4); Potassium 4.2 mmol/L (3.5-5.1); Sodium 133 mmol/L (136-145); Total Protein 8.2 g/dL (6.4-8.2); Troponin I 9 ng/L (<or=76)
[2025-09-08 14:43] LABS: Platelet Count 95 10^3/uL (130-400); RBC Morphology Normal
[2025-09-08 15:14] LABS: Troponin I 10 ng/L (<or=76)
[2025-09-08] MEDS: Omnipaque 350 MG/ML 100 ML BTL IJ (15:17)
[2025-09-08] MEDS: Normal Saline - Diluent 50 ML VIAL IJ (15:18)
[2025-09-08] MEDS: Normal Saline Flush 10 ML SYR IVP (15:18)
--- NOTE | 2025-09-08 15:20 | DI.CT_ITS ---
Exam(s) CT ABDOMEN PELVIS W EXAM: CT ABDOMEN PELVIS W CLINICAL HISTORY: epigastric pain, vomiting. TECHNIQUE: Imaging Protocol: Axial computed tomography images with coronal and sagittal reformatted images were created and reviewed CONTRAST MATERIAL: Intravenous: Omnipaque-350 100cc Oral: None COMPARISON: CT CT THORAX ABD/PEL CTA from 10/06/2024 FINDINGS: VISUALIZED LUNG BASES: There is some infiltrate in the posterior basal segment of the left lower lobe which was not evident on the prior CT scan of 10/06/2024. Also no infiltrates in the partially included lingular segment left and anterior. No significant findings in the partially included right lung. There are no pleural effusions. ABDOMEN: There is no ascites. LIVER: There are no focal hepatic lesions nor dilatation of intrahepatic ducts. GALLBLADDER/BILIARY: Multiple gallstones are noted. Gallbladder does not appear edematous and there is no pericholecystic fluid. CBD is not dilated. PANCREAS: No evidence of pancreatic mass nor dilatation of the pancreatic duct. SPLEEN: Spleen is not enlarged. No obvious intrasplenic lesions. Splenic and portal veins are patent. ADRENALS: There are no significant adrenal masses. KIDNEYS:No cysts evident. No solid renal masses. No calculi nor hydronephrosis.. ABDOMINAL AORTA: Abdominal aorta is not enlarged. LYMPH NODES:There is no retroperitoneal nor paraaortic adenopathy. ABDOMINAL WALL: Small midline fat only containing umbilical hernia.. There is also a fat only containing left inguinal hernia. There are no bowel loops in the hernia sac. GI: No evidence of small-bowel obstruction. The colon is somewhat distended by air but there is no obvious colitis pattern. The sigmoid colon is very redundant and reaches the epigastric region above the transverse colon prior to redescending into the pelvis there is abundant air trapped within this sigmoid colon at this level. There is no evidence of significant sigmoid diverticular disease. PELVIS: GI: Terminal ileum appears unremarkable. Normal appearing appendix noted.No evidence of sigmoid diverticulitis. LYMPH NODES: There is no intrapelvic nor inguinal adenopathy. REPRODUCTIVE: Prostate size normal. Seminal vesicles unremarkable. URINARY BLADDER: No calculi nor obvious masses evident OSSEOUS: No fractures and no significant osseous lesions. No disc space narrowing in the lumbar spine. IMPRESSION: 1. Cholelithiasis but no obvious CT evidence of acute cholecystitis 2. There is very redundant sigmoid colon which extends up to the epigastric region above the level the transverse process and is air-filled and mildly distended but not edematous. There is no significant sigmoid diverticular disease. 3. There is a small midline fat only containing umbilical hernia. Also left inguinal fat only containing inguinal hernia. Report called by myself to ER physician 09/08/2025 at 3:35 p.m. RADIATION DOSE DELIVERED: 1,875.79mGy.cm Total DLP DATA REPOSITORY: All CT scans at this facility are submitted to the National Radiology Data Registry (NRDR) Dose Index Registry (DIR) with the [employer] (ACR). RADIATION OPTIMIZATION: All CT scans at this facility use at least one of these dose optimization techniques: automated exposure control; mA and/or kV adjustment per patient size (includes targeted exams where dose is matched to clinical indication); or iterative reconstruction.
[2025-09-08] MEDS: Simethicone 80 MG CHEW PO (15:49)
[2025-09-08 15:59] LABS: Glucose Negative (Negative)
[2025-09-08 16:04] LABS: C & S Indicated? No; RBC >50 HPF (0-2); WBC Negative HPF (0-5)
[2025-09-08 16:38] VITALS: BP 143/88; PULSE 76; RESP 14; O2SAT 95
== END 2025-09-08 16:49 | disposition home or self-care (01) ==
PROVIDERS: Emergency Provider Emergency Medicine; PCP Family Medicine
DX: R10.33 Periumbilical pain (principal); R10.13 Epigastric pain; R11.2 Nausea with vomiting, unspecified; Z59.811 Housing instability, housed, with risk of homelessness; Z60.8 Other problems related to social environment; Z59.89 Other problems related to housing and economic circumstances; Z73.9 Problem related to life management difficulty, unspecified; K80.20 Calculus of gallbladder without cholecystitis without obstruction; R31.9 Hematuria, unspecified; D69.6 Thrombocytopenia, unspecified
CPT/HCPCS: 36415; 80053; 83690; 96365; 96375; 99285; 74177; 81003; 81015; 83735; 84484; 85025; 99284; J0131; J2405; J3490

== ENCOUNTER 2025-10-05 14:40 | Outpatient (CLI) | payer MEDICAID, SELFPAY ==
[2025-10-05 15:06] LABS: Abs Immature Grans 0.01 10^3/uL (0.0-0.06); HCT 28.5 % (40.0-50.0); HGB 9.3 g/dL (13.5-17.5); Immature Grans % 0.3 %; MCH 30.5 pg (27.0-33.0); MCHC 32.6 % (32.0-36.0); MCV 93 fL (80-95); MPV 9.2 fL (8.0-11.0); Platelet Count 117 10^3/uL (130-400); RBC 3.05 10^6/uL (4.36-5.78); RDW 14.4 % (11.8-14.1); RDW-SD 49.6 fL; WBC 3.51 10^3/uL (4.4-10.8)
[2025-10-05 16:05] LABS: TSH 20.72 uIU/mL (0.55-4.78)
[2025-10-05 16:14] LABS: ALT 12 U/L (10-49); AST 10 U/L (<34); Albumin 3.8 g/dL (3.2-5.0); Alkaline Phosphatase 75 U/L (46-116); Anion Gap 8.1 mmol/L (3-11); BUN 9 mg/dL (9-23); Bilirubin, Total 0.20 mg/dL (0.2-1.2); CO2 27.9 mmol/L (20.0-31.0); Calcium 8.5 mg/dL (8.3-10.6); Chloride 102 mmol/L (98-107); Cholesterol 114 mg/dL (<200); Glucose 89 mg/dL (74-106); HDL Cholesterol 38 mg/dL (>40); Potassium 4.5 mmol/L (3.5-5.1); Sodium 138 mmol/L (136-145); Total Protein 7.1 g/dL (5.7-8.2)
[2025-10-05 22:54] LABS: CRP, High Sensitivity 0.82 mg/L (See Note)
== END 2025-10-05 14:41 | disposition home or self-care (01) ==
LOC: LBO 14:40
PROVIDERS: PCP Family Medicine; Visit Provider Family Medicine
DX: E78.5 Hyperlipidemia, unspecified (principal); I10 Essential (primary) hypertension; L03.115 Cellulitis of right lower limb
CPT/HCPCS: 36415; 80053; 80061; 86141; 84443; 85025